=== PATIENT | female | born 1960 | race Caucasian/White ===

== ENCOUNTER 2022-10-21 06:00 | Outpatient (RCR) | payer OTHER, MEDICAID, SELFPAY | END 2023-01-18 10:12 | disposition home or self-care (01) | LOC: PT 06:00 | PROVIDERS: PCP Nurse Practitioner Family; Visit Provider Nurse Practitioner Family | DX: R26.81 Unsteadiness on feet (principal) | CPT/HCPCS: 97110; 97112; 97530 ==

== ENCOUNTER 2022-12-10 09:51 | Outpatient (OUT) | payer OTHER, MEDICAID, SELFPAY ==
[2022-12-10 10:49] LABS: Creatinine Urine Random 64.51 mg/dL (20.00-300.00); Microalbum Creatinine Ratio Ur 20.1 mg/g (0.0-29.9); Microalbumin Urine Random <1.3 mg/dL (<=30.0)
[2022-12-10 11:03] LABS: Albumin Level 3.6 g/dL (3.4-5.0); Anion Gap 10.6; BUN Creatinine Ratio 10.7; Calcium 8.9 mg/dL (8.5-10.1); Carbon Dioxide 29.1 mmol/L (21.0-32.0); Chloride 104 mmol/L (98-107); Chol HDL Ratio 3.3; Cholesterol 170 mg/dL (<=200); Estimated GFR (African America >60 (>=60); Estimated GFR (Non-African Ame >60 (>=60); Free T3 1.85 pg/mL (2.18-3.98); Glucose 160 mg/dL (74-106); HDL Cholesterol 51 mg/dL (40-60); Phosphorus 4.1 mg/dL (2.6-4.7); Potassium 3.7 mmol/L (3.5-5.1); Sodium 140 mmol/L (136-145); Thyroid Stimulating Hormone 0.663 uIU/mL (0.358-3.740); Triglycerides 205 mg/dL (<=150)
[2022-12-10 11:32] LABS: Free T4 0.81 ng/dL (0.76-1.46)
[2022-12-11 12:08] LABS: C-Peptide, Serum 1.5 ng/mL (1.1-4.4)
== END 2022-12-10 09:52 | disposition home or self-care (01) ==
LOC: LAB 09:53
PROVIDERS: PCP Nurse Practitioner Family; Visit Provider Internal Medicine
DX: E11.65 Type 2 diabetes mellitus with hyperglycemia (principal); E55.9 Vitamin D deficiency, unspecified; E06.3 Autoimmune thyroiditis; Z79.4 Long term (current) use of insulin; E03.9 Hypothyroidism, unspecified
CPT/HCPCS: 36415; 80061; 80069; 82043; 82306; 82570; 84439; 84443; 84481; 84681

== ENCOUNTER 2022-12-10 10:17 | Outpatient (OUT) | payer OTHER, MEDICAID, SELFPAY ==
--- NOTE | 2022-12-10 10:20 | US_ITS ---
The [address] [address] Patient Name: ALBINO BARBOSA MRN: [facility]:[id number] date: 1960 Sex: F Assigned Patient Location: Current Patient Location: US Accession/Order Number: [id number] Exam Date: 12/10/2022 10:30 Report Date: 12/10/2022 11:17 At the request of: LUKE HIGGINS Procedure: US renal bladder EXAM: US renal bladder HISTORY: Urinary incontinence R32 COMPARISON: None. TECHNIQUE: Real-time ultrasound imaging of the kidneys and bladder. Findings: The right and left kidneys measure 11.7 and 12.5 cm. There is good corticomedullary differentiation bilaterally. Within the lower pole of the left kidney there is a 0.6 x 0.6 x 0.2 cm nonobstructing stone. No renal collecting system dilatation bilaterally. No focal mass or perinephric fluid collection. Mild bladder wall thickening likely relates to lack of complete distention. Prevoid volume of 127 mL with a postvoid residual of 65 mL. US/US renal bladder IMPRESSION: 1. Nonobstructing left renal stone. 2. Small postvoid residual volume within the bladder. Electronically authenticated by: BRENDA GONZALEZ Date: 12/10/2022 11:17
== END 2022-12-10 10:18 | disposition home or self-care (01) ==
LOC: US 10:18
PROVIDERS: PCP Nurse Practitioner Family; Visit Provider Nurse Practitioner Family
DX: R32 Unspecified urinary incontinence (principal); N20.0 Calculus of kidney
CPT/HCPCS: 76770

== ENCOUNTER 2023-01-15 12:55 | Outpatient (OUT) | payer OTHER, MEDICAID, SELFPAY ==
[2023-01-15 12:40] LABS: Basophils Percent Auto 0.5 % (0.2-2.0); Eosinophils Absolute Auto 0.1 10^3/uL (0.0-0.7); Eosinophils Percent Auto 1.7 % (0.9-7.0); Hematocrit 42.3 % (36.0-48.0); Hemoglobin 13.7 g/dL (12.0-16.0); Immature Granulocytes Abs Auto 0.04 10^3/uL (0.00-0.03); Immature Granulocytes Pct Auto 0.6 % (0.0-0.5); Lymphocytes Absolute Auto 1.1 10^3/uL (1.2-3.8); Lymphocytes Percent Auto 17.2 % (20.5-60.0); Mean Corpuscular HGB Conc 32.4 g/dL (29.9-35.2); Mean Corpuscular Hemoglobin 27.8 pg (26.7-34.0); Mean Corpuscular Volume 85.8 fL (81.0-99.0); Mean Platelet Volume 10.1 fL (9.5-13.5); Monocytes Absolute Auto 0.5 10^3/uL (0.3-0.8); Monocytes Percent Auto 7.6 % (1.7-12.0); Neutrophils Absolute Auto 4.6 10^3/uL (1.4-6.5); Neutrophils Percent Auto 72.4 % (43.0-75.0); Platelet Count 150 10^3/uL (150-450); Red Blood Count 4.93 10^6/uL (4.20-5.40); Red Cell Distribution Width 15.5 % (11.0-15.0); White Blood Count 6.4 10^3/uL (4.0-11.0)
[2023-01-15 12:54] LABS: Bilirubin Urine NEGATIVE (NEGATIVE); Blood Urine NEGATIVE (NEGATIVE); Clarity Urine CLEAR (CLEAR); Color Urine LT. YELLOW (YELLOW); Glucose Urine UA NEGATIVE (NEGATIVE); Ketones Urine NEGATIVE (NEGATIVE); Leukocyte Esterase Urine NEGATIVE (NEGATIVE); Nitrite Urine NEGATIVE (NEGATIVE); Protein Urine NEGATIVE (NEG/TRACE); Specific Gravity Urine 1.015 (1.005-1.025); Urobilinogen Urine 0.2 EU/dL (0.2-1.0)
[2023-01-15 13:13] LABS: Percent Iron Saturation 11.3 %
[2023-01-15 13:14] LABS: Alanine Aminotransferase 34 U/L (14-59); Albumin Globulin Ratio 1.1; Albumin Level 4.1 g/dL (3.4-5.0); Alkaline Phosphatase 107 U/L (46-116); Anion Gap 11.8; Aspartate Amino Transferase 26 U/L (15-37); BUN Creatinine Ratio 10.2; Bilirubin Total 0.3 mg/dL (0.2-1.0); Calcium 9.4 mg/dL (8.5-10.1); Carbon Dioxide 29.7 mmol/L (21.0-32.0); Chloride 99 mmol/L (98-107); Estimated GFR (African America >60 (>=60); Estimated GFR (Non-African Ame 51 (>=60); Globulin 3.9 g/dL; Glucose 190 mg/dL (74-106); Potassium 3.5 mmol/L (3.5-5.1); Sodium 137 mmol/L (136-145)
[2023-01-15 13:26] LABS: Free T3 2.21 pg/mL (2.18-3.98); Thyroid Stimulating Hormone 0.468 uIU/mL (0.358-3.740)
[2023-01-19 03:00] LABS: Estimated Average Glucose 192 mg/dL; Glycohemoglobin A1C 8.3 % (4.5-6.2)
== END 2023-01-15 12:56 | disposition home or self-care (01) ==
LOC: LAB 01-17 12:12
PROVIDERS: PCP Nurse Practitioner Family; Visit Provider Nurse Practitioner Family
DX: Z00.00 Encounter for general adult medical examination without abnormal findings (principal); R73.09 Other abnormal glucose
CPT/HCPCS: 36415; 80053; 81003; 82728; 83036; 83540; 83550; 84436; 84443; 84481; 85025; 87086

== ENCOUNTER 2023-03-23 15:36 | Outpatient (RCR) | payer OTHER, MEDICAID, SELFPAY | END 2023-03-24 16:52 | disposition home or self-care (01) | LOC: PT 15:36 | PROVIDERS: PCP Nurse Practitioner Family; Visit Provider Family Medicine | DX: R29.6 Repeated falls (principal) | CPT/HCPCS: 97110; 97112; 97162 ==

== ENCOUNTER 2023-03-28 14:12 | Outpatient (OUT) | payer OTHER, MEDICAID, SELFPAY ==
--- NOTE | 2023-03-28 15:05 | CA_ITS ---
Patient Name ALBINO BARBOSA MR# Age Sex Date Time [id number] F 03/28/2023 14:24 At the Request Of LUKE HIGGINS [facility] ECHOCARDIOGRAM REPORT PROCEDURE: CA ECHO DOPPLER COMPLETE INDICATIONS: Shortness of breath COMPARISON: None. DESCRIPTION: COMPLETE ECHOCARDIOGRAM Real-time transthoracic echocardiography with 2D, M-mode, spectral and color flow Doppler performed. QUALITY: Technical quality was good. LEFT VENTRICLE: Normal chamber size. Mild concentric left ventricular hypertrophy. LV EF: Global left ventricular systolic function is hyperdynamic; visually estimated ejection fraction is 65 to 70%. No wall motion abnormalities. DIASTOLIC: Normal diastolic function. ATRIAL SEPTUM: Inadequately seen. LEFT ATRIUM: Normal chamber size. RIGHT ATRIUM: Normal chamber size. RIGHT VENTRICLE: Normal chamber size. Normal right ventricular systolic function. TRICUSPID VALVE: Normal mobility and thickness. No stenosis with trivial regurgitation. No evidence of pulmonary hypertension. RVSP 33mmHg MITRAL VALVE: Normal mobility and thickness. No evidence of mitral valve stenosis. There is no mitral annular calcification. Trivial mitral regurgitation. AORTIC VALVE: Normal trileaflet appearance. No visible sclerosis. Normal leaflet mobility. No evidence of aortic valve stenosis. No aortic regurgitation. AORTIC ROOT: Normal diameter and appearance. PULMONIC VALVE: Normal thickness and mobility. No stenosis. No regurgitation. PERICARDIUM: Anterior free space; trivial effusion versus fat pad. IVC: Collapses with inspirations. normal size. CONCLUSION: 1. Global left ventricular systolic function is hyperdynamic; visually estimated ejection fraction is 65 to 70% 2. Mildly increased left ventricular wall thickness 3. Normal diastolic function 4. The right ventricle is normal in size and systolic function 5. No significant valvular abnormalities 6. Anterior free space; trivial effusion versus fat pad Adult Echocardiography Procedure Report Left Ventricle LVEDD (3.7 - 5.6 cm): 4.22 cm LVESD (2.2 - 4.0 cm): 3.01 cm LVIVS thickness (0.6 - 1.2 cm): 1.18 cm LVPW thickness (0.5 - 1.0 cm): 1.12 cm e': 0.12 m/s E - e': 5.83 LVOT Max Gradient: 7.47 mm[Hg] LVOT Area (cm2): 1.37 m/s Peak Velocity (LVOT): 1.37 m/s Mean Velocity (LVOT): 0.93 m/s LVOT Diameter 2.06 cm Left Ventricular Ejection Fraction: 63.41 % Left Atrium LA Volume Index (2D A2C): 27.98 ml/m2 Left Atrium Systolic Dimension: 3.22 cm Mitral Valve MV E to A Ratio: 0.73 Mitral Valve A-Wave Peak Velocity: 0.95 m/s Mitral Valve E-Wave Peak Velocity: 0.69 m/s Right Ventricle RV Internal Diastolic Dimension: 2.68 cm Aorta AO Root Diam: 2.82 cm Ascending Ao Diam: 2.99 cm Aortic Valve AoV Area (Peak Aram): 3.15 cm2, 3.15 cm2 AoV Area (VTI): 2.91 cm2, 2.91 cm2 Peak Velocity(Antegrade Flow): 1.45 m/s, 1.45 m/s Peak Gradient(Antegrade Flow): 8.44 mm[Hg], 8.44 mm[Hg] Mean Velocity(Antegrade Flow): 1.07 m/s, 1.05 m/s Mean Gradient(Antegrade Flow): 5.10 mm[Hg], 4.94 mm[Hg] Velocity Time Integral: 29.01 cm, 29.07 cm Tricuspid Valve Peak Velocity (Regurgitant Flow): 1.77 m/s, 2.92 m/s, 2.72 m/s Pulmonic Valve Mean Gradient: 2.76 mm[Hg], 3.72 mm[Hg], 4.07 mm[Hg], 4.27 mm[Hg] Mean Velocity: 0.79 m/s, 0.90 m/s, 0.95 m/s, 0.97 m/s Peak Velocity: 1.23 m/s Peak Gradient: 4.38 mm[Hg], 6.18 mm[Hg], 6.64 mm[Hg], 7.40 mm[Hg] Right Atrium Right Atrium Systolic Pressure: 34.31 ml, 34.31 ml Dictated by: Davon Perez M.D. on 03/30/2023 at 12:19 Approved by: Davon Perez M.D. on 03/30/2023 at 12:23
--- NOTE | 2023-03-28 15:05 | CA_ITS ---
The [facility] Test Date: 2023-04-15 Pat Name: ALBINO BARBOSA Department: Room: - Gender: Female Fire Officer: : 1960 Requested By: LUKE HIGGINS Order Number: [id number] Reading MD: ROB KAMARA Interpretive Statements Predominant rhythm is sinus with average rate of 87 bpm Tachycardia - max rate of 185 bpm w/ PSVT of 5 beat duration - 2 episodes of PSVT with longest duration of 5 beats - longest episode of 26min 2sec with rates between 108-116 bpm Bradycardia - min rate of 60 bpm Ventricular ectopy - 14 PVC Patient triggered events: 1 - associated with diziness - associated with NSR Impression: Predominant rhythm is sinus with average rate of 87 bpm Fastest rate of 185 bpm and slowest rate of 60 bpm 14 PVC Electronically Signed On 04-17-2023 12:16:23 EST by ROB KAMARA
== END 2023-03-28 14:13 | disposition home or self-care (01) ==
LOC: CARD 14:12
PROVIDERS: PCP Nurse Practitioner Family; Visit Provider Nurse Practitioner Family
DX: R06.02 Shortness of breath (principal); R42 Dizziness and giddiness
CPT/HCPCS: 93242; 93306

== ENCOUNTER 2023-04-04 13:07 | Outpatient (OUT) | payer OTHER, MEDICAID, SELFPAY ==
--- NOTE | 2023-04-04 | MR_ITS ---
The [address] [address] Patient Name: ALBINO BARBOSA MRN: [facility]:[id number] date: 1960 Sex: F Assigned Patient Location: LAB Current Patient Location: LAB Accession/Order Number: [id number] Exam Date: 04/04/2023 14:32 Report Date: 04/04/2023 19:58 At the request of: ANH ESPINOSA Procedure: MR head/brain wo/w con EXAM: MR head/brain wo/w con HISTORY: F09 Cognitive dysfunction; R26.89 Imbalance . chronic dizziness, tremors and headache COMPARISON: None. TECHNIQUE: Multisequence MRI brain was performed with and without intravenous contrast. FINDINGS: Examination is moderately motion limited. There is no restricted diffusion to suggest acute infarct. There is no midline shift, mass effect, or abnormal extraaxial fluid collections. There are no abnormal parenchymal or leptomeningeal enhancement. The cortical sulci and ventricular system are within normal limits for age. There are a few nonspecific scattered foci of T2/FLAIR signal abnormality in the subcortical and periventricular white matter, likely reflect chronic microvascular ischemic changes. The major intracranial flow voids are visualized. The cerebellar tonsils are normal in position. The orbits demonstrate no suspicious enhancement or any focal lesions. The paranasal sinuses and mastoid air cells are clear. The calvarium and extracranial soft tissues are unremarkable. MR/MR head/brain wo/w con IMPRESSION: Within limitations of motion artifact which moderately limited multiple pulse sequences, no discrete acute intracranial abnormalities or abnormal intracranial enhancement identified Mild chronic microvascular ischemic changes. Electronically authenticated by: FRANTZ STEPHENSON Date: 04/04/2023 19:58
[2023-04-04 13:25] LABS: Estimated GFR (African America >60 (>=60); Estimated GFR (Non-African Ame >60 (>=60)
== END 2023-04-04 13:08 | disposition home or self-care (01) ==
LOC: LAB 13:07
PROVIDERS: PCP Nurse Practitioner Family; Visit Provider Nurse Practitioner Family
DX: R26.89 Other abnormalities of gait and mobility (principal); F09 Unspecified mental disorder due to known physiological condition; Z13.9 Encounter for screening, unspecified
CPT/HCPCS: 36415; 70553; 82565; A9575

== ENCOUNTER 2023-05-06 08:20 | Outpatient (OUT) | payer OTHER, MEDICAID, SELFPAY ==
--- NOTE | 2023-05-06 08:00 | NM_ITS ---
The [address] [address] Patient Name: ALBINO BARBOSA MRN: [id number] date: 1960 Sex: F Assigned Patient Location: ME Current Patient Location: ME Accession/Order Number: [id number] Exam Date: 05/06/2023 08:00 Report Date: 05/06/2023 11:37 At the request of: Maryam DAVILA Procedure: ME gastric emptying study EXAMINATION: ME gastric emptying study HISTORY: ABDOMINAL PAIN, NAUSEA AND VOMITING COMPARISON: No relevant comparison available. TECHNIQUE: The patient ingested 1.0 mCi Tc-99m sulfur colloid mixed with eggs. Anterior and posterior images were obtained at one minute intervals. Data were acquired for plotting and determination of gastric emptying. FINDINGS: STOMACH: Normal appearance. 30 minute retention: 55% 1 hour retention: 51% 2 hour retention: 3% 3 hour retention: 2% 4 hour retention: 0% ME/ME gastric emptying study IMPRESSION: Normal gastric emptying study Electronically authenticated by: KAILEE AGUSTIN Date: 05/06/2023 11:37
== END 2023-05-06 08:21 | disposition home or self-care (01) ==
LOC: NM 08:20
PROVIDERS: PCP Nurse Practitioner Family; Visit Provider Internal Medicine
DX: R10.9 Unspecified abdominal pain (principal); R11.0 Nausea
CPT/HCPCS: 78264; A9541

== ENCOUNTER 2023-10-21 12:29 | Outpatient (OUT) | payer OTHER, MEDICAID, SELFPAY ==
--- NOTE | 2023-10-21 12:46 | MM_ITS ---
Patient Name: ALBINO BARBOSA MR#: [id number] : 1960 Exam Date: 10/21/2023 Ordering Doctor: LUKE HIGGINS CNP RADIOLOGY REPORT PROCEDURE: MM TOMOSYNTHESIS SCREENING BI COMPARISON: MG MAMM SCREEN 3D [place]O CAD, 10/19/2022. MG MAMM SCREEN 3D [place] CAD, 07/21/2021. MG MAMM SCREEN [place] W CAD, 07/18/2020. INDICATIONS: Screening for malignant neoplasm Calculator Name NCI Breast Cancer Risk Assessment Tool 5 Year Breast Cancer Risk 1.50% Lifetime Breast Cancer Risk 6.60% Personal Breast Cancer No Personal Ovarian Cancer No Treatments None Family Cancers Grandmother-maternal with breast cancer at age 80. LOCATION: [facility] BREAST COMPOSITION: There are scattered areas of fibroglandular density. FINDINGS: DIAGNOSTIC CATEGORY 1--NEGATIVE. RIGHT BREAST: No significant suspicious finding. No significant change has occurred. LEFT BREAST: No significant suspicious finding. No significant change has occurred. RECOMMENDATIONS: ROUTINE MAMMOGRAM AND CLINICAL EVALUATION IN 12 MONTHS. PLEASE NOTE: A NORMAL MAMMOGRAM DOES NOT EXCLUDE THE POSSIBILITY OF BREAST CANCER. A CLINICALLY SUSPICIOUS PALPABLE LUMP SHOULD BE BIOPSIED. Dictated by: Christiano Valerio M.D. on 10/21/2023 at 14:45 Approved by: Christiano Valerio M.D. on 10/21/2023 at 14:47
== END 2023-10-21 12:30 | disposition home or self-care (01) ==
LOC: MAMMO 12:31
PROVIDERS: PCP Nurse Practitioner Family; Visit Provider Nurse Practitioner Family
DX: Z12.31 Encounter for screening mammogram for malignant neoplasm of breast (principal); Z80.3 Family history of malignant neoplasm of breast
CPT/HCPCS: 77063; 77067

== ENCOUNTER 2023-10-21 12:34 | Outpatient (OUT) | payer OTHER, MEDICAID, SELFPAY ==
[2023-10-21 14:53] LABS: Creatine Kinase 113 U/L (26-192); Magnesium 1.9 mg/dL (1.8-2.4); Myoglobin 82 ng/mL (9-82)
== END 2023-10-21 12:35 | disposition home or self-care (01) ==
LOC: LAB 12:35
PROVIDERS: PCP Nurse Practitioner Family; Visit Provider Nurse Practitioner Family
DX: Z12.31 Encounter for screening mammogram for malignant neoplasm of breast (principal); Z80.3 Family history of malignant neoplasm of breast
CPT/HCPCS: 36415; 77063; 77067; 82550; 83735; 83874

== ENCOUNTER 2023-12-22 14:56 | Outpatient (OUT) | payer MEDICAID, OTHER, SELFPAY ==
[2023-12-22 15:25] LABS: Basophils Percent Auto 0.5 % (0.2-2.0); Eosinophils Absolute Auto 0.1 10^3/uL (0.0-0.7); Eosinophils Percent Auto 1.2 % (0.9-7.0); Hemoglobin 13.4 g/dL (12.0-16.0); Immature Granulocytes Abs Auto 0.02 10^3/uL (0.00-0.03); Immature Granulocytes Pct Auto 0.3 % (0.0-0.5); Lymphocytes Absolute Auto 1.3 10^3/uL (1.2-3.8); Lymphocytes Percent Auto 19.4 % (20.5-60.0); Mean Corpuscular HGB Conc 31.2 g/dL (29.9-35.2); Mean Corpuscular Hemoglobin 25.2 pg (26.7-34.0); Mean Corpuscular Volume 80.8 fL (81.0-99.0); Mean Platelet Volume 10.9 fL (9.5-13.5); Monocytes Absolute Auto 0.5 10^3/uL (0.3-0.8); Monocytes Percent Auto 7.7 % (1.7-12.0); Neutrophils Absolute Auto 4.6 10^3/uL (1.4-6.5); Neutrophils Percent Auto 70.9 % (43.0-75.0); Platelet Count 155 10^3/uL (150-450); Red Blood Count 5.32 10^6/uL (4.20-5.40); Red Cell Distribution Width 17.6 % (11.0-15.0); White Blood Count 6.5 10^3/uL (4.0-11.0)
--- NOTE | 2023-12-22 15:37 | XR_ITS ---
The [address] [address] Patient Name: ALBINO BARBOSA MRN: [facility]:[id number] date: 1960 Sex: F Assigned Patient Location: LAB Current Patient Location: LAB Accession/Order Number: [id number] Exam Date: 12/22/2023 15:45 Report Date: 12/22/2023 16:14 At the request of: LUKE HIGGINS Procedure: XR foot LT min 3V PROCEDURE: XR foot LT min 3V HISTORY: Left Foot Pain M79.672 ; injured one week ago COMPARISON: None. FINDINGS: BONES:Transverse fracture through neck of fourth metatarsal with minimal lateral displacement. Comminuted fracture of the 5th metatarsal mid and distal diaphysis with mild medial medial displacement. No intra-articular extension involving the fourth or 5th metatarsal. SOFT TISSUES:Lateral soft tissue swelling. No radiopaque or body. EFFUSION:None visible. OTHER: Negative. XR/XR foot LT min 3V IMPRESSION: 1. Acute fractures of the fourth and 5th metatarsals. Electronically authenticated by: LEONEL MATA Date: 12/22/2023 16:14
[2023-12-22 16:26] LABS: Alanine Aminotransferase 28 U/L (14-59); Albumin Globulin Ratio 1.1; Albumin Level 3.9 g/dL (3.4-5.0); Alkaline Phosphatase 122 U/L (46-116); Anion Gap 14.6; Aspartate Amino Transferase 20 U/L (15-37); BUN Creatinine Ratio 11.5; Bilirubin Total 0.5 mg/dL (0.2-1.0); Carbon Dioxide 27.4 mmol/L (21.0-32.0); Chloride 100 mmol/L (98-107); Chol HDL Ratio 3.7; Cholesterol 164 mg/dL (<=200); Estimated GFR (African America >60 (>=60); Estimated GFR (Non-African Ame 59 (>=60); Free T3 2.33 pg/mL (2.18-3.98); Globulin 3.7 g/dL; Glucose 144 mg/dL (74-106); HDL Cholesterol 44 mg/dL (40-60); Sodium 138 mmol/L (136-145); Thyroid Stimulating Hormone 0.052 uIU/mL (0.358-3.740); Total Protein 7.6 g/dL (6.4-8.2); Triglycerides 193 mg/dL (<=150); VLDL CHOLESTEROL 38.6 mg/dL
[2023-12-22 16:33] LABS: Estimated Average Glucose 151 mg/dL; Glycohemoglobin A1C 6.9 % (4.5-6.2)
[2023-12-23 05:10] LABS: Insulin 23.1 uIU/mL (2.6-24.9)
== END 2023-12-22 14:57 | disposition home or self-care (01) ==
PROVIDERS: PCP Nurse Practitioner Family; Visit Provider Nurse Practitioner Family
DX: Z00.00 Encounter for general adult medical examination without abnormal findings (principal); E11.65 Type 2 diabetes mellitus with hyperglycemia; Z79.4 Long term (current) use of insulin; E55.9 Vitamin D deficiency, unspecified; M79.672 Pain in left foot; S92.342A Displaced fracture of fourth metatarsal bone, left foot, initial encounter for closed fracture; S92.352A Displaced fracture of fifth metatarsal bone, left foot, initial encounter for closed fracture
CPT/HCPCS: 36415; 73630; 80053; 80061; 83036; 83525; 84436; 84443; 84481; 85025

== ENCOUNTER 2023-12-22 15:26 | Outpatient (OUT) | payer MEDICAID, OTHER, SELFPAY ==
[2023-12-22 16:18] LABS: Microalbum Creatinine Ratio Ur 35.6 mg/g (0.0-29.9); Microalbumin Urine Random <1.3 mg/dL (<=30.0)
[2023-12-22 16:54] LABS: Phosphorus 3.9 mg/dL (2.6-4.7)
== END 2023-12-22 15:27 | disposition home or self-care (01) ==
LOC: LAB 15:27
PROVIDERS: PCP Nurse Practitioner Family; Visit Provider Internal Medicine
DX: E11.65 Type 2 diabetes mellitus with hyperglycemia (principal); Z79.4 Long term (current) use of insulin; E55.9 Vitamin D deficiency, unspecified
CPT/HCPCS: 36415; 82043; 82306; 82570; 84100

== ENCOUNTER 2023-12-26 13:32 | Outpatient (OUT) | payer OTHER, MEDICAID, SELFPAY ==
--- NOTE | 2023-12-26 13:34 | CT_ITS ---
[address] [address] Patient Name: ALBINO BARBOSA MRN: [facility]:[id number] date: 1960 Sex: F Assigned Patient Location: CT Current Patient Location: Accession/Order Number: [id number] Exam Date: 12/26/2023 13:39 Report Date: 12/28/2023 05:30 At the request of: LUKE HIGGINS Procedure: CT lung screening low-dose EXAMINATION: CT lung screening low-dose HISTORY: Wellness Examination Z00.00 COMPARISON: CT lung cancer screening 10/19/2022 TECHNIQUE: Axial, Coronal, and Sagittal images were created without the administration of IV contrast material. Dose reduction techniques were achieved by using automated exposure control and/or adjustment of mA and/or kV according to patient size and/or use of iterative reconstruction technique. FINDINGS: LUNGS: Stable 5 mm nodule within right lower lobe superior segment. Stable mild bronchiectasis within lung bases. No acute infiltrates. PLEURA: No mass, effusion, or pneumothorax. VASCULATURE: No abnormality. CARRIE: No mass or pathologic adenopathy. MEDIASTINUM: No mass or pathologic adenopathy. CARDIAC: No enlargement, pericardial thickening, or pericardial effusion. Coronary Artery calcifications: Coronary calcifications are absent. AORTA: No aneurysm or dissection. CHEST WALL: No mass or axillary adenopathy BONES: No bone lesion or fracture. LIMITED ABDOMEN: No suspicious findings. Limited images of the upper abdomen. OTHER: Negative. CT/CT lung screening low-dose IMPRESSION: 1. Lung-RADS 2- Benign Appearance or Behavior. Nodules with a very low likelihood of becoming a clinically active cancer due to size or lack of growth. Follow-up CT Chest in 1 year. Electronically authenticated by: LEONEL MATA Date: 12/28/2023 05:30
== END 2023-12-26 13:33 | disposition home or self-care (01) ==
LOC: CT 13:32
PROVIDERS: PCP Nurse Practitioner Family; Visit Provider Nurse Practitioner Family
DX: F17.210 Nicotine dependence, cigarettes, uncomplicated (principal)
CPT/HCPCS: 71271

== ENCOUNTER 2023-12-27 10:08 | Outpatient (OUT) | payer OTHER, MEDICAID, SELFPAY ==
--- NOTE | 2023-12-27 | XR_ITS ---
The [address] [address] Patient Name: ALBINO BARBOSA MRN: [id number] date: 1960 Sex: F Assigned Patient Location: Current Patient Location: CT Accession/Order Number: [id number] Exam Date: 12/27/2023 10:27 Report Date: 12/28/2023 13:16 At the request of: JV JONES Procedure: XR foot LT min 3V PROCEDURE: XR foot LT min 3V HISTORY: LEFT FOOT PAIN ; follow-up fractures COMPARISON: XR foot left 12/22/2023 FINDINGS: BONES:Stable minimally/fractures involving the fourth and 5th metatarsals with interval increased density of the fracture lines and mild callus formation along the margins. SOFT TISSUES:No visible soft tissue swelling. EFFUSION:None visible. OTHER: Negative. XR/XR foot LT min 3V IMPRESSION: 1. Right fourth and 5th metatarsal fractures with stable alignment and ongoing bone healing. Electronically authenticated by: LEONEL MATA Date: 12/28/2023 13:16
--- OUTSIDE RECORDS SUMMARY | 2023-12-27 10:26 | XMS_ITS | CCD ---
Author Organization [facility] Care Team Providers Care Can Labeler Name Role Phone Shakira Higgins Primary Care Provider [phone] DR JENNIFER TURNER Consulting Unavailable YEU, DR RODRIGUEZ Attending Unavailable MISC, DR VAZQUEZ Primary Care Unavailable YUE, DR RODRIGUEZ Admitting Unavailable Keysha Naidu Consulting Unavaila marie Higgins CNP, Shakira S Primary Care Provider PROVIDER, UNKNOWN Attending Unavailable PROVIDER, UNKNOWN Admitting Unavailable Rodger Chavez Unavailable Ronaldo MOORE, Shakira S Primary Care Provider SHAKIRA HIGGINS Attending Unavailable ORNALDO, SHAKIRA Admitting Unavailable RONALDO, SHAKIRA Primary Care Unavailable RONALDO, SHAKIRA Primary Care Unavailable HAY ., DR RODRIGUEZ Consulting Unavailable HAY ., DR RODRIGUEZ Attending Unavailable YUE ., DR RODRIGUEZ Admitting Unavailable RONALDO, SHAKIRA Consulting Unavailable RONALDO, SHAKIRA Attending Unavailable RONALDO, SHAKIRA Admitting Unavailable RONALDO, SHAKIRA Primary Care Unavailable MISC, DR VAZQUEZ Attending Unavailable LOLA, DR Maryam Artis Consulting Unavailable MISC, DR VAZQUEZ Admitting Unavailable RONALDO, SHAKIRA Primary Care Unavailable RONALDO, SHAKIRA Consulting Unavailable RONALDO, SHAKIRA Attending Unavailable RONALDO, SHAKIRA Admitting Unavailable RONALDO, SHAKIRA Primary Care Unavailable RONALDO, SHAKIRA Primary Care Unavailable ABHYANKAR, ANDRE Attending Unavailable ABHYANKAR, ANDRE Admitting Unavailable ZIEBKEN, DR LEONEL Artis Consulting Unavailable ABHYANKAR, ANDRE Consulting Unavailable RONALDO, SHAKIRA Primary Care Unavailable KEHINDE, ANTOINE Consulting Unavailable KEHINDE, ANTOINE Attending Unavailable KEHINDE, ANTOINE Admitting Unavailable RONALDO, SHAKIRA Attending Unavailable RONALDO, SHAKIRA Admitting Unavailable RONALDO, SHAKIRA Primary Care Unavailable VAMSI, DR KAILEE Mcdonough Consulting Unavailable ZIEBER, DR LEONEL Artis Consulting Unavailable RONALDO, SHAKIRA Consulting Unavailable RONALDO, SHAKIRA Primary Care Unavailable ABHYANKAR, ANDRE Attending Unavailable ABHYANKAR, ANDRE Admitting Unavailable KAILEE YANG Consulting Unavailable ABHYANKAR, ANDRE Consulting Unavailable RONALDO, SHAKIRA Primary Care Unavailable LOLA, DR Maryam Artis Consulting Unavailable LOLA, DR Maryam Artis Attending Unavailable LOLA, DR Maryam Artis Admitting Unavailable RONALDO, SHAKIRA Primary Care Unavailable HAY ., DR RODRIGUEZ Consulting Unavailable HAY ., DR RODRIGUEZ Attending Unavailable HAY ., DR RODRIGUEZ Admitting Unavailable RONALDO, SHAKIRA S Primary Care Physician ABHYANKAR, ANDRE Referring Unavailable ABHYANKAR, ANDRE Attending Unavailable RONALDO, SHAKIRA S Primary Care Unavailable ABHYANKAR, ANDRE Referring Unavailable RONALDO, SHAKIRA S Primary Care Unavailable Soheila Delgado Unavailable CHAVA QUIROZ Attending Unavailable ALANAAZMAHAMED Peña Attending Unavailable PRINTY, LUL Kothari Attending Unavailable PRINTY, LUL Kothari Attending Unavailable DIDION, DENI Peres Attending Unavailable JEFF, RAJAT Attending Unavailable DIDION, DENI Peres Attending Unavailable DIDION, DENI Peres Attending Unavailable TAN BAGLEY Attending Unavailable JEFF, RAJAT Attending Unavailable JUANITO, NGA E Attending Unavailable JUANITO, NGA Freedman Attending Unavailable JUANITO, NGA E Attending Unavailable JUANITO, NGA E Attending Unavailable JUANITO, NGA E Attending Unavailable JUANITO, NGA E Attending Unavailable JUANITO, NGA E Attending Unavailable JUANITO, NGA E Attending Unavailable RONALDO, SHAKIRA S Referring Unavailable JUANITO, NGA E Attending Unavailable Allergies Allergy Classification Reported Allergen(s) Allergy Type Date of Onset Reaction(s) Facility Capsaicin / Turpentine (1 source) Capsaicin / Turpentine; Translations: [capsaicin topical] Drug Allergy [facility] (4 sources) Capsaicin; Translations: [CAPSAICIN] Drug Allergy 4 [facility] Repository (5 sources) Capsaicin Drug Allergy Unknown [employer] Other (7 sources) Capsaicin / Turpentine; Translations: [capsaicin topical] Drug Allergy [facility] (1 source) traZODone; Translations: [TRAZODONE] Drug Allergy 4 [facility] Repository (1 source) No Known Medication Allergies; Translations: [No Known Medication Allergies] Propensity to adverse reactions (disorder) [facility] Repository Medications Current Medications Medication Drug Class(es) Dates Sig (Normalized) Sig (Original) 0.4 ML cyclosporine 0.5 MG/ML Ophthalmic Suspension [Restasis] (8 sources) Start: 03-13-2020 take 1 drop(s) into the eye(s) twice daily Restasis 0.05% Emulsion 1 drop(s), Eye-Both, BID, Refill(s) 0 Start Date: 03/13/20 Status: Ordered armodafinil 250 mg oral tablet (8 sources) Start: 03-13-2020 take 1 tablet by mouth once daily armodafinil 250 mg oral tablet 250 mg = 1 tab(s), Oral, Daily, Refills(s) 0 Start Date: 03/13/20 Status: Ordered atorvastatin 40 mg oral tablet (15 sources) HMG-CoA Reductase Inhibitor Start: 03-13-2020 take 1 tablet by mouth at bedtime atorvastatin 40 mg Tab 40 mg = 1 tab(s), Oral, Bedtime, Refills(s) 0 Start Date: 03/13/20 Status: Ordered Comment on above: Take 40 mg by mouth once daily. bisacodyl 5 mg delayed release oral tablet (11 sources) Stimulant Laxative Start: 03-18-2020 take 4 tablets by mouth once daily Dulcolax 5 mg Tab-EC 20 mg = 4 tab(s), Oral, Once, at 1:00pm the day prior to colonoscopy, # 4 tab(s), Refills(s) 0, Pharmacy: [facility]/pharmacy #[id number], 157.5, cm, 03/18/20 13:44:00 EDT, Height/Length Dosing, 104.3, kg, 03/18/20 13:44:00 EDT, Weight Dosing Start Date: 03/18/20 Status: Ordered Comment on above: Take 20 mg by mouth. Breztri Aerosphere inhalation aerosol (8 sources) Start: 05-03-2023 take 2 puff(s) by inhalation twice daily Breztri Aerosphere inhalation aerosol 2 puff(s), BID Start Date: 05/03/23 Status: Ordered 24 hr buPROPion hydrochloride 300 mg extended release oral tablet (13 sources) Aminoketone Start: 03-13-2020 take 1 tablet by mouth once daily buPROPion 300 mg XL /24 hrs 300 mg = 1 tab(s), Oral, Daily, Refills(s) 0 Start Date: 03/13/20 Status: Ordered Comment on above: Take 300 mg by mouth once daily. busPIRone hydrochloride 15 mg oral tablet (14 sources) Start: 10-23-2021 busPIRone 15 mg Tab 15 mg = 1 tab(s), BID Start Date: 05/03/23 Status: Ordered Start: 05-26-2021 End: 12-17-2021 busPIRone (BUSPAR) 10 mg tab let Comment on above: Take 15 mg by mouth twice daily as needed. Calcium (11 sources) Phosphate Binder, Calcium Start: 03-13-2020 calcium 500 mg tablet 500 mg = 1 tab(s), Chewed, Daily, Refills(s) 0 Start Date: 03/13/20 Status: Ordered CALCIUM ORAL Yamil e by mouth once daily. 0 Active Comment on above: Take by mouth once d aily. cevimeline 30 mg oral capsule (12 sources) Cholinergic Receptor Agonist Start: 3 take 1 capsule by mouth three times daily cevimeline 30 mg oral capsule 30 mg = 1 cap(s), TID Start Date: 05/03/23 Status: Ordered clotrimazole 10 mg/ml topical cream (4 sources) Azole Antifungal Clotrimazole 1 % 1 application Externally Twice a day Active Clotrimazole 1 % 1 application Externally Twice a day Active Clotrimazole 1 % 1 application Externally Twice a day Active cycloSPORINE 0.5 mg/ml ophthalmic suspension (10 sources) Calcineurin Inhibitor Immunosuppressant take 1 drop(s) into the eye(s) twice daily Restasis 0.05 % 1 drop into affected eye Ophthalmic Twice a day Active take 0.05 drop(s) in to the eye(s) twice daily cycloSPORINE (RESTASIS MULTIDOSE) 0.05 % drop Use 1 Drop in both eyes twice daily. 0 Active take 0.05 drop(s) in to the eye(s) twice daily cycloSPORINE (RESTASIS MULTIDOSE) 0.05 % drop Use 1 Drop in both eyes twice daily. 0 Active Comment on above: Use 1 Drop in both e yes twice daily. dexlansoprazole 60 mg delayed release oral capsule (3 sources) Proton Pump Inhibitor Start: 2022 take 1 capsule by mouth every twenty-four hours Dexilant 60 MG 1 capsule Orally Once a day for 30 days PLEASE CHECK ALLERGIES Mar, Active dicyclomine hydrochloride 10 mg oral capsule (16 sources) Anticholinergic Start: 2021 dicyclomine 10 mg Cap QID Start Date: 05/03/23 Status: Ordered Comment on above: Take 10 mg by mouth four times daily. 0.5 ml dulaglutide 3 mg/ml auto-injector (18 sources) GLP-1 Receptor Agonist Start: 2019 inject 1.5 mg by subcutaneous injection every week Trulicity Pen 1.5 mg/0.5 mL subcutaneous solution 1.5 mg, SubCutaneous, qWeek, Refills(s) 0 Start Date: 03/13/20 Status: Ordered Trulicity 3 MG/0 .5ML as directed Subcutaneous Active Comment on above: INJECT SUBCUTANEOUSL Y ONCE A WEEK empagliflozin 25 mg oral tablet (5 sources) Sodium-Glucose Cotransporter 2 Inhibitor Start: 11-14-2023 Jardiance 25 mg oral tablet Refills(s) 0 Start Date: 11/14/23 Status: Ordered estradiol 0.01 mg vaginal insert (18 sources) Estrogen Start: 03-13-2020 estradiol 10 mcg vaginal insert See Instructions, Use one twice per week, Refills(s) 0 Start Date: 03/13/20 Status: Ordered Vagifem 10 MCG 1 tablet Vaginal Two times a Week Active Estradiol (VAGIF EM) 10 mcg vaginal tablet Use 10 mcg vaginally two times a week. 0 Active Comment on above: Use 10 mcg vaginally two times a week. 30 actuat fluticasone furoate 0.1 mg/actuat / umeclidinium 0.0625 mg/actuat / vilanterol 0.025 mg/actuat dry powder inhaler (2 sources) Anticholinergic, Corticosteroid, beta2-Adrenergic Agonist take 1 puff(s) by inhalation once daily Trelegy Ellipta 100-62.5-25 MCG/ACT 1 puff Inhalation Once a day Active furosemide 40 mg oral tablet (15 sources) Loop Diuretic Start: 03-13-20 take 1 tablet by mouth once daily Lasix 40 mg Tab 40 mg = 1 tab(s), Oral, Daily, Refills(s) 0 Start Date: 03/13/20 Status: Ordered Comment on above: Take 40 mg by mouth once daily. gabapentin 300 mg oral capsule (16 sources) Anti-epileptic Agent Start: 03-13-20 take 1 capsule by mouth at bedtime gabapentin 300 mg Cap 300 mg = 1 cap(s), Oral, Bedtime, Refills(s) 0 Start Date: 03/13/20 Status: Ordered Comment on above: Take 300 mg by mouth daily at bedtime. insulin, regular, human 500 unt/ml injectable solution (15 sources) Insulin Start: 03-13-20 Humulin R (Concentrated) 500 units/mL subcutaneous solution See Instructions, Inject 150 units at breakfast, 140 at lunch and 75 at HS, Refills(s) 0 Start Date: 03/13/20 Status: Ordered HumuLIN R U-500 KwikPen 500 UNIT/ML as directed Subcutaneous 80 UNITS IN THE MORNING, 50 UNITS IN THE AFTERNOON Active metFORMIN hydrochloride 1000 mg oral tablet (10 sources) Biguanide Start: 03-13-2020 take 1 tablet by mouth twice daily metformin 1000 mg Tab 1,000 mg = 1 tab(s), Oral, BID, Refills(s) 0 Start Date: 03/13/20 Status: Ordered Multivitamin preparation (1 source) take 1 tablet by mouth once daily Multivitamin - 1 tablet Orally Once a day Active nystatin 100 unt/mg topical powder (7 sources) Polyene Antifungal Nystatin [id number] UNIT/GM 1 application Externally Twice a day Active Nystatin 300657 UNIT/GM 1 application Externally Twice a day Active omeprazole 40 mg delayed release oral capsule (8 sources) Proton Pump Inhibitor Start: 03-13-2020 take 1 capsule by mouth once daily omeprazole 40 mg Cap-DR 40 mg = 1 cap(s), Oral, Daily, Refills(s) 0 Start Date: 03/13/20 Status: Ordered pantoprazole 40 mg delayed release oral tablet (18 sources) Proton Pump Inhibitor Start: 05-03-[address] Tab 40 mg = 1 tab(s), BID Start Date: 05/03/23 Status: Ordered Start: 05-27-2020 take 1 tablet by jono once daily pantoprazole DR (PROTONIX) 40 mg tablet Take 40 mg by mouth once daily. 0 05/27/2020 Active Comment on above: Take 40 mg by mouth once daily. pravastatin sodium 40 mg oral tablet (13 sources) HMG-CoA Reductase Inhibitor Start: 04-21-2023 pravastatin 40 mg Tab 40 mg = 1 tab(s), Daily Start Date: 05/03/23 Status: Ordered take 1 tablet by mouth once lawson y Pravastatin 10 mg one tab orally daily Active Comment on above: Take 40 mg by mouth daily at bedtime. primidone 50 mg oral tablet (16 sources) Anti-epileptic Agent Start: 05-03-2023 primidone 50 mg Tab 50 mg = 1 tab(s), BID Start Date: 05/03/23 Status: Ordered Start: 04-20-2023 take 2 tablets by mo uth every twelve hours PRIMIDONE ORAL Take 2 tablets by mouth every 12 hours. 0 04/20/2023 Active take 2 tablets by mo uth every twelve hours Primidone 50 MG 2 tablets Orally Twice a day Active Primidone 50 MG 1 TABLETS Orally 2 tablets in AM and 1 tablet in PM Active Comment on above: Take 2 tablets by mo uth every 12 hours. traZODone hydrochloride 100 mg oral tablet (20 sources) Serotonin Reuptake Inhibitor Start: 05-03-2023 traZODONE 100 mg Tab 100 mg = 1 tab(s), Daily Start Date: 05/03/23 Status: Ordered Start: 03-13-2020 take 1 tablet by jono th once daily at bedtime traZODONE 50 mg Tab 50 mg = 1 tab(s), Oral, Once a day (at bedtime), Refills(s) 0 Start Date: 03/13/20 Status: Ordered Comment on above: TAKE 1 TABLET BY JONO TH EVERYDAY AT BEDTIME triamcinolone acetonide 1 mg/ml topical cream (3 sources) Corticosteroid Triamcinolone Ac etonide 0.1 % 1 application Externally Twice a day Active Triamcinolone Ac etonide 0.1 % 1 application Externally Twice a day Active 24 hr venlafaxine 150 mg extended release oral capsule (19 sources) Serotonin and Norepinephrine Reuptake Inhibitor Start: 03-13-2020 take 1 capsule by mouth once daily venlafaxine 150 mg Cap-ER 150 mg = 1 cap(s), Oral, Daily, Refills(s) 0 Start Date: 03/13/20 Status: Ordered End: 12-17-2021 take 1 capsule by mouth once daily venlafaxine ER (EFFEXOR XR) 75 mg 24 hr capsule Take 75 mg by mouth once daily. 0 12/17/2021 Discontinued (Changing Therapy/Dosage Form) Comment on above: Take 150 mg by mouth once daily. Take 75 mg by mouth once daily. Ventolin HFA 90 mcg/inh Aerosol (8 sources) Start: 03-13-2020 take 2 puff(s) by inhalation four times daily Ventolin HFA 90 mcg/inh Aerosol 2 puff(s), Inhalation, QID Shortness of breath or wheezing, Refill(s) 0 Start Date: 03/13/20 Status: Ordered vitamin b12 0.1 mg oral tablet (1 source) Vitamin B12 Vitamin B12 100 MCG as directed Orally Active Vitamin B12 100 MCG (3 sources) Vitamin B12 100 MCG as directed Orally Active Vitamin B12 250 mcg oral tablet (8 sources) Start: 03-13-2020 take 1 tablet by mouth once daily Vitamin B12 250 mcg oral tablet 250 mcg = 1 tab(s), Oral, Daily, Refills(s) 0 Start Date: 03/13/20 Status: Ordered Vitamin D3 25 MCG (1000 UT) (2 sources) take 1 tablet by mouth once daily Vitamin D3 25 MCG (1000 UT) 1 tablet Orally Once a day Active Completed/Discontinued Medications Medication Drug Class(es) Dates Sig (Normalized) Sig (Original) [id number] 200 actuat albuterol 0.09 mg/actuat metered dose inhaler (4 sources) beta2-Adrenergic Agonist albuterol HFA 90 mcg/actuation HFA Inhale 2 Puffs as instructed as needed. 0 Active take 1 puff(s) by in halation every four hours as needed Albuterol Sulfate HFA 108 (90 Base) MCG/ACT 1 puff as needed Inhalation every 4 hrs Active Comment on above: Inhale 2 Puffs as in structed as needed. 120 actuat budesonide 0.16 mg/actuat / formoterol fumarate 0.0048 mg/actuat / glycopyrrolate 0.009 mg/actuat metered dose inhaler (1 source) Corticosteroid, beta2-Adrenergic Agonist Start: 2022 take 2 puff(s) by inhalation twice daily BREZTRI AEROSPHERE 160-9-4.8 mcg/actuation HFA aerosol inhaler INHALE 2 PUFFS TWICE A DAY DIRECTED 30 0 05/17/2023 Active Comment on above: INHALE 2 PUFFS TWICE A DAY DIRECTED 30 cephalexin 500 mg oral capsule (3 sources) Cephalosporin Antibacterial Start: 2020 cephALEXin (KEFLEX) 500 mg capsule cholecalciferol 0.05 mg oral capsule (9 sources) Vitamin D Start: 2019 take 1 capsule by mouth once daily cholecalciferol 2000 intl units oral capsule 2,000 International_Unit = 1 cap(s), Oral, Daily Start Date: 03/13/20 Status: Ordered Start: 03-13-2020 take 1 capsule by mo uth once daily cholecalciferol 2000 intl units oral capsule 2,000 International_Unit = 1 cap(s), Oral, Daily Start Date: 03/13/20 Status: Ordered take 1 tablet by jono th every twenty-four hours Vitamin D3 25 MCG (1000 UT) 1 tablet Orally Once a day Active cholecalciferol, vitamin D3, (VITAMIN D3 ORAL) (3 sources) cholecalciferol, vitamin D3, (VITAMIN D3 ORAL) Take by mouth once daily. 0 Active Comment on above: Take by mouth once d aily. ciclopirox (3 sources) CICLOPIROX TOPIC AL Apply to affected area. 0 Active Comment on above: Apply to affected ar ea. cyanocobalamin, vitamin B-12, (VITAMIN B12 ORAL) (3 sources) take 1000 ug by mouth once daily cyanocobalamin, vitamin B-12, (VITAMIN B12 ORAL) Take 1,000 mcg by mouth once daily. 0 Active Comment on above: Take 1,000 mcg by mo ut once daily. Diclofenac (14 sources) Nonsteroidal Anti-inflammatory Drug Start: 020 diclofenac Top 1% gel 2 gm, Topical, QID, Refill(s) 0 Start Date: 03/13/20 Status: Ordered Diclofenac Sodiu m 1 % as directed Externally Active Comment on above: Apply to affected ar ea four times daily. ferrous sulfate 325 mg oral tablet (3 sources) Start: 021 take 1 tablet by mouth twice daily ferrous sulfate 325 mg (65 mg iron) tablet Take 1 tablet by mouth twice daily. 0 05/27/2020 Active Comment on above: Take 1 tablet by jono th twice daily. fluconazole 150 mg oral tablet (3 sources) Azole Antifungal Start: fluconazole (DIFLUCAN) 150 mg tablet TAKE 1 TABLET EVERY 72 HOURS UNTIL SYMPTOMS IMPROVE (MAX 2WK) THEN 1 TABLET ONCE WEEKLY FOR 12 WEEKS 0 07/10/2020 Active Comment on above: TAKE 1 TABLET EVERY 72 HOURS UNTIL SYMPTOMS IMPROVE (MAX 2WK) THEN 1 TABLET ONCE WEEKLY FOR 12 WEEKS fluticasone propionate 0.05 mg/actuat metered dose nasal spray (3 sources) Corticosteroid fluticasone (PATRICK NASE) 50 mcg/actuation nasal spray Use 1 Pollock in each nostril as needed. 0 Active Comment on above: Use 1 Pollock in each nostril as needed. FREESTYLE JEANNE 2 SENSOR kit (3 sources) Start: FREESTYLE JEANNE 2 SENSOR kit hydrocortisone 25 mg/ml topical cream (11 sources) Corticosteroid Start: hydrocortisone (ANUSOL-HC) 2.5 % rectal cream APPLY RECTALLY TWICE DAILY FOR 10 DAYS 0 06/03/2020 Active Start: 03-13-2020 take 25 mg rectal ro brennen twice daily Anusol-HC 25 mg rectal suppository 25 mg = 1 supp, Rectal, BID, Refills(s) 0 Start Date: 03/13/20 Status: Ordered Comment on above: APPLY RECTALLY TWICE DAILY FOR 10 DAYS insulin regular, human (HUMULIN R U-500, CONC, KWIKPEN SUBCUTANEOUS) (3 sources) insulin regular, human (HUMULIN R U-500, CONC, KWIKPEN SUBCUTANEOUS) Inject subcutaneously. 0 Active Comment on above: Inject subcutaneousl y. levothyroxine sodium 0.15 mg oral tablet (18 sources) l-Thyroxine Start: 1 take 1 tablet by mouth once daily levothyroxine (SYNTHROID) 150 mcg tablet Take 150 mcg by mouth once daily. 0 06/03/2020 Active Start: 03-13-2020 take 1 tablet by jono th once daily levothyroxine 150 mcg (0.15 mg) Tab 150 mcg = 1 tab(s), Oral, Daily, Refills(s) 0 Start Date: 03/13/20 Status: Ordered Comment on above: Take 150 mcg by mout h once daily. losartan potassium 25 mg oral tablet (1 source) Angiotensin 2 Receptor Erick Start: 04-20-20 23 take 1 tablet by mouth once losartan (COZAAR) 25 mg tablet Take 1 tablet by mouth every afternoon. 0 04/20/2023 Active Comment on above: Take 1 tablet by jono th every afternoon. mupirocin 0.02 mg/mg topical ointment (3 sources) RNA Synthetase Inhibitor Antibacterial Start: 12-10-19 mupirocin (BACTROBAN) 2 % ointment ondansetron 4 mg oral tablet (3 sources) Serotonin-3 Receptor Antagonist Start: 10-29-19 21 take 1 tablet by mouth every six hours as needed ondansetron (ZOFRAN) 4 mg tablet Take 4 mg by mouth every 6 hours as needed. 0 10/28/2020 Active Comment on above: Take 4 mg by mouth e very 6 hours as needed. 10 actuat tiotropium 0.0025 mg/actuat inhalation spray (13 sources) Anticholinergic Start: 06-03-19 take 2 puff(s) by mouth once daily SPIRIVA RESPIMAT 2.5 mcg/actuation inhaler INHALE 2 PUFFS BY MOUTH EVERYDAY 0 06/03/2020 Active Start: 03-13-2020 Spiriva Respim at 1.25 mcg/inh inhalation aerosol 2 puff(s), Inhalation, Daily, Refill(s) 0 Start Date: 03/13/20 Status: Ordered take 2 puff(s) by in halation twice daily Spiriva Respimat 2.5 MCG/ACT 2 puffs Inhalation TWICE A DAY Active Comment on above: INHALE 2 PUFFS BY MO UTH EVERYDAY Problems Active Problems Problem Classification Problem Date Documented Da te Episodic/Chronic Abdominal pain (20 sources) Unspecified abdominal pain; Translations: [Epigastric pain] Onset: 2 Episodic Anxiety disorders (8 sources) Mixed anxiety and depressive disorder 03-13-2020 Chronic Chronic obstructive pulmonary disease and bronchiectasis (8 sources) Chronic obstructive lung disease 03-13-2020 Chronic Coagulation and hemorrhagic disorders (2 sources) Thrombocytopenic disorder; Translations: [Thrombocytopenia, unspecified] Onset: 4 06-26-2023 Chronic Coagulation and hemorrhagic disorders (9 sources) Thrombocytopenia due to hypersplenism; Translations: [Other secondary thrombocytopenia] Onset: 2 Episodic Coma; stupor; and brain damage (3 sources) Unspecified coma; Translations: [UNSPECIFIED COMA] Onset: 1 Episodic Conditions associated with dizziness or vertigo (2 sources) Dizziness and giddiness; Translations: [Dizziness and giddiness] Onset: 4 Episodic Deficiency and other anemia (8 sources) Iron deficiency anemia 03-18-2020 Episodic Diabetes mellitus with complications (12 sources) Type 2 diabetes mellitus with hypoglycemia without coma; Translations: [Type 2 diabetes mellitus with diabetic neuropathy, unspecified] Onset: 1 10-01-2020 Chronic Diabetes mellitus without complication (8 sources) Diabetes mellitus 03-13-2020 Chronic Disorders of lipid metabolism (9 sources) Hyperlipidemia, unspecified; Translations: [Hyperlipidemia] Onset: 1 03-13-2020 Chronic Diverticulosis and diverticulitis (4 sources) Diverticulitis of intestine, part unspecified, with perforation and abscess with bleeding; Translations: [DVTRCLI PRT UNS W/PERF ABSC W/BLEED] Onset: 2 Chronic Esophageal disorders (20 sources) Gastroesophageal reflux disease; Translations: [Gastro-esophageal reflux disease without esophagitis] Chronic Essential hypertension (8 sources) Hypertensive disorder 03-13-2020 Chronic Gastrointestinal hemorrhage (8 sources) Rectal hemorrhage 09-12-2020 Episodic Genitourinary symptoms and ill-defined conditions (13 sources) Mixed incontinence; Translations: [Incontinence] Onset: 3 Chronic Hemorrhoids (20 sources) Anal skin tag; Translations: [Hemorrhoids] 09-12-2020 Episodic Hepatitis (5 sources) Nonalcoholic steatohepatitis; Translations: [Nonalcoholic steatohepatitis (MENDEZ)] Onset: 3 Chronic Nausea and vomiting (17 sources) Nausea; Translations: [Nausea] Episodic Other aftercare (2 sources) terminologist (current) use of insulin; Translations: [JAIL CURRENT USE OF INSULIN] Onset: 1 Episodic Other aftercare (2 sources) Other intermodal truck driver (current) drug therapy; Translations: [OTH JAIL CURRENT DRUG THERAPY] Onset: 1 Episodic Other aftercare (1 source) nursing home (current) use of oral hypoglycemic drugs; Translations: [JAIL USE ORAL HYPOGLYCEMIC DX] Onset: 3 Episodic Other connective tissue disease (4 sources) Cramp and spasm; Translations: [CRAMP AND SPASM] Onset: 3 Episodic Other gastrointestinal disorders (5 sources) Diarrhea, unspecified; Translations: [DIARRHEA UNSPECIFIED] Onset: 2 Episodic Other gastrointestinal disorders (8 sources) Constipation 03-13-2020 Episodic Other gastrointestinal disorders (8 sources) Hyperplastic polyp of intestine 04-15-2020 Episodic Other gastrointestinal disorders (8 sources) Occult blood in stools 03-18-2020 Episodic Other hematologic conditions (2 sources) Hypersplenism; Translations: [HYPERSPLENISM] Onset: 3 Episodic Other hereditary and degenerative nervous system conditions (8 sources) Restless legs 03-13-2020 Chronic Other injuries and conditions due to external causes (1 source) History of falling; Translations: [HISTORY OF FALLING] Onset: 3 Episodic Other liver diseases (3 sources) Cirrhosis - non-alcoholic; Translations: [Unspecified cirrhosis of liver] Chronic Other liver diseases (1 source) Unspecified cirrhosis of liver; Translations: [UNSPECIFIED CIRRHOSIS OF LIVER] Onset: 3 Chronic Other nervous system disorders (8 sources) Peripheral nerve disease 03-13-2020 Chronic Other nervous system disorders (4 sources) Unsteadiness on feet; Translations: [UNSTEADINESS ON FEET] Onset: 3 Episodic Other nutritional; endocrine; and metabolic disorders (8 sources) Body mass index 30+ - obesity 12-31-2020 Chronic Other screening for suspected conditions (not mental disorders or infectious disease) (20 sources) Encounter for screening mammogram for malignant neoplasm of breast; Translations: [Encounter for screening for malignant neoplasm of rectum] Onset: 2 Episodic Residual codes; unclassified (1 source) Altered mental status, unspecified; Translations: [ALTERED MENTAL STATUS UNSPECIFIED] Onset: 1 Episodic Residual codes; unclassified (1 source) Family history of malignant neoplasm of breast; Translations: [FAMILY HX MALIG NEOPLASM OF BREAST] Onset: 3 Episodic Residual codes; unclassified (8 sources) FH: Liver disease 03-13-2020 Episodic Skin and subcutaneous tissue infections (8 sources) Furuncle 12-31-2020 Episodic Substance-related disorders (9 sources) Nicotine dependence, cigarettes, uncomplicated; Translations: [Smoker] Onset: 3 03-13-2020 Chronic Thyroid disorders (14 sources) Hypothyroidism, unspecified; Translations: [Hypothyroidism] Onset: 1 Chronic Viral infection (4 sources) COVID-19; Translations: [COVID-19] Onset: 3 Past or Other Problems Problem Classification Problem Date Documented Da te Episodic/Chronic Deficiency and other anemia (1 source) Anemia, unspecified; Translations: [ANEMIA UNSPECIFIED] Onset: 03-21-2022 Episodic Diabetes mellitus without complication (1 source) Other abnormal glucose; Translations: [OTHER ABNORMAL GLUCOSE] Onset: 03-21-2022 Episodic Menopausal disorders (1 source) Hormone replacement therapy; Translations: [HORMONE REPLACEMENT THERAPY] Onset: 05-26-2022 Episodic Other skin disorders (4 sources) Follicular disorder, unspecified; Translations: [FOLLICULAR DISORDER UNSPECIFIED] Onset: 05-22-2022 Episodic Results Test Name Value Interpretation Reference Range Facil ity Ambulatory Visit Summaryon 0 12-05-2023 Ambulatory Visit Summary Ambulatory Visit Summary RENETTA BARBOSA :1960 Visit Date:12/05/2023 Ambulatory Visit Instructions Your Diagnosis Mixed incontinence urge and stress Your Care Team Attending Physician - NGA SOLOMON PA-C Primary Care Physician - SHAKIRA HIGGINS CNP This Is Your Medications List albuterol (Ventolin HFA 90 mcg/inh Aerosol) armodafinil (armodafinil 250 mg oral tablet) atorvastatin (atorvastatin 40 mg Tab) bisacodyl (Dulcolax 5 mg Tab-EC) budesonide/formoterol/ glycopyrrolate (Breztri Aerosphere inhalation aerosol) calcium carbonate (calcium 500 mg tablet) cevimeline (cevimeline 30 mg oral capsule) cholecalciferol (cholecalciferol 2000 intl units oral capsule) cyanocobalamin (Vitamin B12 250 mcg oral tablet) cycloSPORINE ophthalmic (Restasis 0.05% Emulsion) diclofenac topical (diclofenac Top 1% gel) dicyclomine (dicyclomine 10 mg Cap) dulaglutide (Trulicity Pen 1.5 mg/0.5 mL subcutaneous solution) empagliflozin (Jardiance 25 mg oral tablet) estradiol topical (estradiol 10 mcg vaginal insert) furosemide (Lasix 40 mg Tab) gabapentin (gabapentin 300 mg Cap) hydrocortisone topical (Anusol-HC 25 mg rectal suppository) insulin regular (Humulin R (Concentrated) 500 units/mL subcutaneous solution) levothyroxine (levothyroxine 150 mcg (0.15 mg) Tab) omeprazole (omeprazole 40 mg Cap-DR) pantoprazole (Pantoprazole [address] Tab) pravastatin (pravastatin 40 mg Tab) primidone (primidone 50 mg Tab) tiotropium (Spiriva Respimat 1.25 mcg/inh inhalation aerosol) trazodone (traZODONE 100 mg Tab) venlafaxine (venlafaxine 150 mg Cap-ER) Procedures Performed EGD - Esophagogastroduodenos copy (09/24/2020), Colonoscopy (04/09/2020), Bilateral tubal ligation, Bile duct stone removal, section, Laparoscopic cholecystectomy, Ligation of bilateral fallopian tubes, Removal of gallstone from bile duct, Tonsillectomy and adenoidectomy. Discharge Vitals Heart Rate (Peripheral) 95 Blood Pressure 122/54 Height 62 in Height 157 cm Weight 207.9 lb Weight 94.5 kg BMI 38.34 What to do next Scheduled Follow-Up Appointments Tuesday 11:20 AM EDT With: NGA SOLOMON PA-C Where: [facility] Normal [address] [place] [address]- \.br\ You Need to Schedule the Following Appointments\.br\ Follow Up with NGA SOLOMON PA-C, URL When: In 2 weeks\.br\ Where:\.br\ [address]br\ [place] [address]\.br\ \.br\ Medications\.br\ What How Much When Instructions\.br\ Unchanged albuterol (Ventolin HFA 90 mcg/ inh Aerosol) 2 Puffs Inhalation 4 times a day as needed for Shortness of breath or wheezing\.br\ Unchanged armodafinil (armodafinil 250 mg oral tablet) 1 Tablets By Mouth Every day\.br\ Unchanged atorvastatin (atorvastatin 40 mg Tab) 1 Tablets By Mouth At bedtime\.br\ Unchanged bisacodyl (Dulcolax 5 mg Tab-EC) 4 Tablets By Mouth Once at 1:00pm the day prior to colonoscopy \.br\ Unchanged budesonide/ formoterol/ glycopyrrolate (Breztri Aerosphere inhalation aerosol) 2 Puffs 2 times a day\.br\ Unchanged calcium carbonate (calcium 500 mg tablet) 1 Tablets Chewed Every day\.br\ Unchanged cevimeline (cevimeline 30 mg oral capsule) 1 Capsules 3 times a day\.br\ Unchanged cholecalciferol (cholecalciferol 2000 intl units oral capsule) 1 Capsules By Mouth Every day\.br\ Unchanged cyanocobalamin (Vitamin B12 250 mcg oral tablet) 1 Tablets By Mouth Every day\.br\ Unchanged cycloSPORINE ophthalmic (Restasis 0.05% Emulsion) 1 Drops Both eyes 2 times a day\.br\ Unchanged diclofenac topical (diclofenac Top 1% gel) 2 Gram Topical 4 times a day\.br\ Unchanged dicyclomine (dicyclomine 10 mg Cap) 4 times a day\.br\ Unchanged dulaglutide (Trulicity Pen 1.5 mg/ 0.5 mL subcutaneous solution) 1.5 Milligram Subcutaneous Every week\.br\ Unchanged empagliflozin (Jardiance 25 mg oral tablet)\.br\ Unchanged estradiol topical (estradiol 10 mcg vaginal insert) See instructions Use one twice per week \.br\ Unchanged furosemide (Lasix 40 mg Tab) 1 Tablets By Mouth Every day\.br\ Unchanged gabapentin (gabapentin 300 mg Cap) 1 Capsules By Mouth At bedtime\.br\ Unchanged hydrocortisone topical (Anusol-HC 25 mg rectal suppository) 1 Suppositories By rectum 2 times a day\.br\ Unchanged insulin regular (Humulin R (Concentrated) 500 units/ mL subcutaneous solution) See instructions Inject 150 units at breakfast, 140 at lunch and 75 at HS \.br\ Unchanged levothyroxine (levothyroxine 150 mcg (0.15 mg) Tab) 1 Tablets By Mouth Every day\.br\ Unchanged omeprazole (omeprazole 40 mg Cap-DR) 1 Capsules By Mouth Every day\.br\ Unchanged pantoprazole (Pantoprazole [address] Tab) 1 Tablets 2 times a day\.br\ Unchanged pravastatin (pravastatin 40 mg Tab) 1 Tablets Every day\.br\ Unchanged primidone (primidone 50 mg Tab) 1 Tablets 2 times a day\.br\ Unchanged tiotropium (Spiriva Respimat 1.25 mcg/ inh inhalation aerosol) 2 Puffs Inhalation Every day\.br\ Unchanged trazodone (traZODONE 100 mg Tab) 1 Tablets Every day\.br\ Unchanged venlafaxine (venlafaxine 150 mg Cap-ER) 1 Capsules By Mouth Every day\.br\ Allergies\.br\ Capsaicin\.br\ Problems\.br\ Ongoing - Any problem that you are currently receiving treatment for.\.br\ Abdominal pain, epigastric\.br\ Abdominal pain, periumbilical\.br \ Anal skin tag\.br\ Anxiety with depression\.br\ Bleeding hemorrhoid\.br\ BMI 39.0-39.9,adult\. br\ Chronic obstructive pulmonary disease\.br\ Constipation\.br\ Diabetes\.br\ Family history of hepatic cirrhosis\.br\ Furuncle\.br\ Gastroparesis due to DM\.br\ GERD (gastroesophageal reflux disease)\.br\ Hemorrhoids\.br\ Hiatal hernia with GERD\.br\ HTN (hypertension)\.b r\ Hyperlipidemia\.b r\ Hyperplastic polyp of sigmoid colon\.br\ Hypothyroid\.br\ Iron deficiency anemia\.br\ Mixed incontinence urge and stress\.br\ Nausea\.br\ Nausea in adult\.br\ Occult blood in stools\.br\ Peripheral neuropathy\.br\ Positive colorectal cancer screening using Cologuard test\.br\ Rectal bleeding\.br\ RLS (restless legs syndrome)\.br\ Smoker\.br\ Thrombocytopenia\ .br\ Patient Survey\.br\ You may receive a survey via text or e-mail asking about your office visit. Please share your experience with us by completing your survey. We appreciate your feedback and thank you for choosing us for your care.\.br\ Education Materials\.br\ Kegel Exercises\.br\ \.br\ Kegel exercises can help strengthen your pelvic floor muscles. The pelvic floor is a group of muscles that support your rectum, small intestine, and bladder. In females, pelvic floor muscles also help support the uterus. These muscles help you control the flow of urine and stool (feces).\.br\ Kegel exercises are painless and simple. They do not require any equipment. Your provider may suggest Kegel exercises to:\.br\ ? \.br\ Improve bladder and bowel control.\.br\ ? \.br\ Improve sexual response.\.br\ ? \.br\ Improve weak pelvic floor muscles after surgery to remove the uterus (hysterectomy) or after , in females.\.br\ ? \.br\ Improve weak pelvic floor muscles after prostate gland removal or surgery, in males.\.br\ Kegel exercises involve squeezing your pelvic floor muscles. These are the same muscles you squeeze when you try to stop the flow of urine or keep from passing gas. The exercises can be done while sitting, standing, or lying down, but it is best to vary your position.\.br\ Ask your health care provider which exercises are safe for you. Do exercises exactly as told by your health care provider and adjust them as directed. Do not begin these exercises until told by your health care provider.\.br\ Exercises\.br\ How to do Kegel exercises:\.br\ 1. \.br\ Squeeze your pelvic floor muscles tight. You should feel a tight lift in your rectal area. If you are a female, you should also feel a tightness in your vaginal area. Keep your stomach, buttocks, and legs relaxed.\.br\ 2. \.br\ Hold the muscles tight for up to 10 seconds.\.br\ 3. \.br\ Breathe normally.\.br\ 4. \.br\ Relax your muscles for up to 10 seconds.\.br\ 5. \.br\ Repeat as told by your health care provider.\.br\ Repeat this exercise daily as told by your health care provider. Continue to do this exercise for at least 4?6 weeks, or for as long as told by your health care provider.\.br\ You may be referred to a physical therapist who can help you learn more about how to do Kegel exercises.\.br\ Depending on your condition, your health care provider may recommend:\.br\ ? \.br\ Varying how long you squeeze your muscles.\.br\ ? \.br\ Doing several sets of exercises every day.\.br\ ? \.br\ Doing exercises for several weeks.\.br\ ? \.br\ Making Kegel exercises a part of your regular exercise routine.\.br\ This information is not intended to replace advice given to you by your health care provider. Make sure you discuss any questions you have with your health care provider.\.br\ Document Revised: 09/17/2021 Document Reviewed: 09/17/2021 Elsevier Patient Education ? 2022 [employer].br\ \.br\ [facility] Interdisciplinary Note - Soc ial Workeron 12-05-2023 Interdisciplinary Note - Microstrategy Reports Developer Interdisciplinary Note - Microstrategy Reports Developer Consult for positive depression screen received. Chart review completed and it was noted that this consult has been received in error as patient's depression screen score was 0. SW will remain available. Normal [facility] Urology Office/Clinic Noteon 12-05-2023 Urology Office/Clinic Note Urology Office/Clinic Note Chief Complaint #3 /PFPT HPI Staff PFPT # 4 Pt is here for PFPT #4 have you been consistent with your home exercises this week? yes have you noticed any worsening in your symptoms this week? no have you noticed any improvement in your symptoms this week? somewhat, the changes noted are: She has been able to hold her urine better to get to the bathroom do you have any UTI sx (burning, foul odor, cloudy urine, etc)? no in office UA: NOT suspicious for UTI Current urinary medications: N/A Review of Systems no fever, chills, malaise, myalgia. no rash/lesions. no chest pain, palpitations, or SOB. no abdominal pain, nausea, vomiting. no unilateral calf swelling, redness, pain Physical Exam Vitals & Measurements HR: 95(Peripheral) BP: 122/54 HT: 62 in HT: 157 cm WT: 94.5 kg WT: 207.9 lb BMI: 38.34 General: nontoxic, NAD Mouth: moist mucosa Lungs: normal respiratory effort Cardio: regular rate, good distal perfusion Abdomen: nondistended, no suprapubic distention or tenderness, no CVA tenderness Neurologic: Grossly normal Skin: No rashes or suspicious lesions Assessment/Plan 1. Mixed incontinence urge and stress (N39.46: Mixed incontinence) PFPT #4 performed today. Much better today. Could really see contraction. First 2 reps (with coaching) held almost 8-9 seconds. Next few reps could barely hold it more than a couple seconds but could get it back for another quick flick with a second surge. Home exercise program prescribed 4x per day THIS WEEK: Contract - 5-6sec Relax - 20 (increased bc she takes a while to return to baseline!) Reps - 6 Quick Flicks - 6 Home exercise program prescribed 4x per day NEXT WEEK: Contract - 6-7sec Relax - 20 Reps - 7 Quick Flicks - 7 Return in 2 weeks for PFPT #5 Ordered: Body Mass Index (BMI) documented 3008F Current tobacco smoker 1034F Depression Screening Positive 3354F Influenza immunization status assessed 1030F Most recent diastolic blood pressure >=90 mm Hg 3080F Patient screen for fall risk: no falls in last year or 1 fall with no injury in last year 1101F Systolic BP <130 mm Hg (Most Recent) 3074F Urnls Dip Stick Auto w/o Microscopy POC 76518 Follow-up With When Contact Information JUANITO BREWER, NGA Freedman, URL In 2 weeks [address] [place] [address] Additional Instructions: Patient Education Kegel Exercises Problem List/Past Medical History Ongoing Abdominal pain, epigastric Abdominal pain, periumbilical Anal skin tag Anxiety with depression Bleeding hemorrhoid BMI 39.0-39.9,adult Chronic obstructive pulmonary disease Constipation Diabetes Family history of hepatic cirrhosis Furuncle Gastroparesis due to DM GERD (gastroesophageal reflux disease) Hemorrhoids Hiatal hernia with GERD HTN (hypertension) Hyperlipidemia Hyperplastic polyp of sigmoid colon Hypothyroid Iron deficiency anemia Mixed incontinence urge and stress Nausea Nausea in adult Occult blood in stools Peripheral neuropathy Positive colorectal cancer screening using Cologuard test Rectal bleeding RLS (restless legs syndrome) Smoker Thrombocytopenia Historical No qualifying data Procedure/Surgical History EGD - Esophagogastroduodenos copy (09/24/2020), Colonoscopy (04/09/2020), Bilateral tubal ligation, Bile duct stone removal, section, Laparoscopic cholecystectomy, Ligation of bilateral fallopian tubes, Removal of gallstone from bile duct, Tonsillectomy and adenoidectomy. Medications Anusol-HC 25 mg rectal suppository, 25 mg= 1 supp, Rectal, BID armodafinil 250 mg oral tablet, 250 mg= 1 tab(s), Oral, Daily atorvastatin 40 mg Tab, 40 mg= 1 tab(s), Oral, Bedtime Breztri Aerosphere inhalation aerosol, 2 puff(s), BID calcium 500 mg tablet, 500 mg= 1 tab(s), Chewed, Daily cevimeline 30 mg oral capsule, 30 mg= 1 cap(s), TID cholecalciferol 2000 intl units oral capsule, 2000 International_Unit= 1 cap(s), Oral, Daily diclofenac Top 1% gel, 2 gm, Topical, QID dicyclomine 10 mg Cap, QID Dulcolax 5 mg Tab-EC, 20 mg= 4 tab(s), Oral, Once estradiol 10 mcg vaginal insert, See Instructions gabapentin 300 mg Cap, 300 mg= 1 cap(s), Oral, Bedtime Humulin R (Concentrated) 500 units/mL subcutaneous solution, See Instructions Jardiance 25 mg oral tablet Lasix 40 mg Tab, 40 mg= 1 tab(s), Oral, Daily levothyroxine 150 mcg (0.15 mg) Tab, 150 mcg= 1 tab(s), Oral, Daily omeprazole 40 mg Cap-DR, 40 mg= 1 cap(s), Oral, Daily Pantoprazole [address] Tab, 40 mg= 1 tab(s), BID pravastatin 40 mg Tab, 40 mg= 1 tab(s), Daily primidone 50 mg Tab, 50 mg= 1 tab(s), BID Restasis 0.05% Emulsion, 1 drop(s), Eye-Both, BID Spiriva Respimat 1.25 mcg/inh inhalation aerosol, 2 puff(s), Inhalation, Daily traZODONE 100 mg Tab, 100 mg= 1 tab(s), Daily Trulicity Pen 1.5 mg/0.5 mL subcutaneous solution, 1.5 mg, SubCutaneous, qWeek venlafaxine 150 mg Cap-ER, 150 mg= 1 cap (more content not included)... Normal [facility] Comment on above: Result Comment: Elec tronically Signed By: NGA SOLOMON PA-C\Date and Time Signed: 12/05/23 12:19 EDT Ambulatory Visit Summaryon 0 11-28-2023 Ambulatory Visit Summary Ambulatory Visit Summary RENETTA BARBOSA :1960 Visit Date:11/28/2023 Ambulatory Visit Instructions Your Diagnosis Mixed incontinence urge and stress Your Care Team Attending Physician - NGA SOLOMON PA-C Primary Care Physician - SHAKIRA HIGGINS CNP This Is Your Medications List Contact prescribing physician if questions or concerns albuterol (Ventolin HFA 90 mcg/inh Aerosol) armodafinil (armodafinil 250 mg oral tablet) atorvastatin (atorvastatin 40 mg Tab) bisacodyl (Dulcolax 5 mg Tab-EC) budesonide/formoterol/ glycopyrrolate (Breztri Aerosphere inhalation aerosol) calcium carbonate (calcium 500 mg tablet) cevimeline (cevimeline 30 mg oral capsule) cholecalciferol (cholecalciferol 2000 intl units oral capsule) cyanocobalamin (Vitamin B12 250 mcg oral tablet) cycloSPORINE ophthalmic (Restasis 0.05% Emulsion) diclofenac topical (diclofenac Top 1% gel) dicyclomine (dicyclomine 10 mg Cap) dulaglutide (Trulicity Pen 1.5 mg/0.5 mL subcutaneous solution) empagliflozin (Jardiance 25 mg oral tablet) estradiol topical (estradiol 10 mcg vaginal insert) furosemide (Lasix 40 mg Tab) gabapentin (gabapentin 300 mg Cap) hydrocortisone topical (Anusol-HC 25 mg rectal suppository) insulin regular (Humulin R (Concentrated) 500 units/mL subcutaneous solution) levothyroxine (levothyroxine 150 mcg (0.15 mg) Tab) omeprazole (omeprazole 40 mg Cap-DR) pantoprazole (Pantoprazole [address] Tab) pravastatin (pravastatin 40 mg Tab) primidone (primidone 50 mg Tab) tiotropium (Spiriva Respimat 1.25 mcg/inh inhalation aerosol) trazodone (traZODONE 100 mg Tab) venlafaxine (venlafaxine 150 mg Cap-ER) Procedures Performed EGD - Esophagogastroduodenos copy (09/24/2020), Colonoscopy (04/09/2020), Bilateral tubal ligation, Bile duct stone removal, section, Laparoscopic cholecystectomy, Ligation of bilateral fallopian tubes, Removal of gallstone from bile duct, Tonsillectomy and adenoidectomy. Discharge Vitals Heart Rate (Peripheral) 95 Blood Pressure 148/67 Height 157 cm Height 62 in Weight 94.5 kg Weight 207.9 lb BMI 38.34 What to do next Scheduled Follow-Up Appointments Tuesday 11:20 AM EDT With: NGA SOLOMON PA-C Where: [facility] Invalid Interpretation Code [address] [place] [address]- \.br\ Tuesday 11:20 AM EDT \.br\ With: NGA SOLOMON PA-C\.br\ Where: [facility] Urology Office/Clinic Noteon 11-28-2023 Urology Office/Clinic Note Urology Office/Clinic Note Chief Complaint PFPT # 3 HPI Staff Pt is here for PFPT #3 have you been consistent with your home exercises this week? yes have you noticed any worsening in your symptoms this week? no have you noticed any improvement in your symptoms this week? no not being able to make it to the bathroom once a day this week. do you have any UTI sx (burning, foul odor, cloudy urine, etc)? no in office UA: NOT suspicious for UTI Current urinary medications: History of Present Illness staff HPI reviewed and agree. Tests Reviewed: Reviewed UA. Review of Systems PHQ Score Initial Depression Screen Score: 0 SCORE no fever, chills, malaise, myalgia. no rash/lesions. no chest pain, palpitations, or SOB. no abdominal pain, nausea, vomiting. no unilateral calf swelling, redness, pain Physical Exam Vitals & Measurements HR: 95(Peripheral) BP: 148/67 HT: 62 in HT: 157 cm WT: 94.5 kg WT: 207.9 lb BMI: 38.34 General: nontoxic, NAD Mouth: moist mucosa Lungs: normal respiratory effort Cardio: regular rate, good distal perfusion Abdomen: nondistended, no suprapubic distention or tenderness, no CVA tenderness Neurologic: Grossly normal Skin: No rashes or suspicious lesions Assessment/Plan 1. Mixed incontinence urge and stress (N39.46: Mixed incontinence) PFPT #3 performed today. Needs to work on strong contraction and breathing through movement. Home exercise program prescribed 4x per day: Contract - 5 Relax - 10 Reps - 5 Quick Flicks - 5 Couldn't really appreciate much of a contraction today. Not sure if was equipment issue or pt not getting strong enough contraction. Offered options: continue another week, stop PFPT and discuss other options, try PFPT at [facility] or [facility]. Pt prefers options #1. Follow up 1 week for PFPT #4 or sooner if needed. Pt understands and agrees with plan. Follow-up With When Contact Information JUANITO BREWER, NGA Freedman, URL [address] [facility] [place] [address] Additional Instructions: 1 week PFPT #4 Patient Education Kegel Exercises Documentation recorded by the scribtano Batista accurately reflects the services(s) I performed and decisions made by me. Authenticated by Nga Solomon PA-C on 11/28/2023 12:54:06. ILorie, personally scribed for FRANCES Peñaloza on 11/28/2023 11:56:30. . Problem List/Past Medical History Ongoing Abdominal pain, epigastric Abdominal pain, periumbilical Anal skin tag Anxiety with depression Bleeding hemorrhoid BMI 39.0-39.9,adult Chronic obstructive pulmonary disease Constipation Diabetes Family history of hepatic cirrhosis Furuncle Gastroparesis due to DM GERD (gastroesophageal reflux disease) Hemorrhoids Hiatal hernia with GERD HTN (hypertension) Hyperlipidemia Hyperplastic polyp of sigmoid colon Hypothyroid Iron deficiency anemia Mixed incontinence urge and stress Nausea Nausea in adult Occult blood in stools Peripheral neuropathy Positive colorectal cancer screening using Cologuard test Rectal bleeding RLS (restless legs syndrome) Smoker Thrombocytopenia Historical No qualifying data Procedure/Surgical History EGD - Esophagogastroduodenos copy (09/24/2020), Colonoscopy (04/09/2020), Bilateral tubal ligation, Bile duct stone removal, section, Laparoscopic cholecystectomy, Ligation of bilateral fallopian tubes, Removal of gallstone from bile duct, Tonsillectomy and adenoidectomy. Medications Anusol-HC 25 mg rectal suppository, 25 mg= 1 supp, Rectal, BID armodafinil 250 mg oral tablet, 250 mg= 1 tab(s), Oral, Daily atorvastatin 40 mg Tab, 40 mg= 1 tab(s), Oral, Bedtime Breztri Aerosphere inhalation aerosol, 2 puff(s), BID calcium 500 mg tablet, 500 mg= 1 tab(s), Chewed, Daily cevimeline 30 mg oral capsule, 30 mg= 1 cap(s), TID cholecalciferol 2000 intl units oral capsule, 2000 International_Unit= 1 cap(s), Oral, Daily diclofenac Top 1% gel, 2 gm, Topical, QID dicyclomine 10 mg Cap, QID Dulcolax 5 mg Tab-EC, 20 mg= 4 tab(s), Oral, Once estradiol 10 mcg vaginal insert, See Instructions gabapentin 300 mg Cap, 300 mg= 1 cap(s), Oral, Bedtime Humulin R (Concentrated) 500 units/mL subcutaneous solution, See Instructions Jardiance 25 mg oral tablet Lasix 40 mg Tab, 40 mg= 1 tab(s), Oral, Daily levothyroxine 150 mcg (0.15 mg) Tab, 150 mcg= 1 tab(s), Oral, Daily omeprazole 40 mg Cap-DR, 40 mg= 1 cap(s), Oral, Daily Pantoprazole [address] Tab, 40 mg= 1 tab(s), BID pravastatin 40 mg Tab, 40 mg= 1 tab(s), Daily primidone 50 mg Tab, 50 mg= 1 tab(s), BID Restasis 0.05% Emulsion, 1 drop(s), Eye-Both, BID Spiriva Respimat 1.25 mcg/inh inhalation aerosol, 2 puff(s), Inhalation, Daily traZODONE 100 mg Tab, 100 mg= 1 tab(s), Daily Trulicity Pen 1.5 mg/0.5 mL subcutaneous solution, 1.5 mg, SubCutaneous, qWeek venlafaxine 150 mg Cap-ER, 150 mg= 1 cap(s), Oral, Daily Magdaleno (more content not included)... Normal [facility] Comment on above: Result Comment: Elec tronically Signed By: JUANITO BREWER, NGA Freedman\.br\Date and Time Signed: 11/28/23 12:54 EDT\.br\Electronically Co-Signed By: Lorie Batista\.br\Date and Time Co-Signed: 11/28/23 11:57 EDT Ambulatory Visit Summaryon 0 11-21-2023 Ambulatory Visit Summary Ambulatory Visit Summary RENETTA BARBOSA :1960 Visit Date:11/21/2023 Ambulatory Visit Instructions Your Diagnosis Mixed incontinence urge and stress Your Care Team Attending Physician - NGA SOLOMON PA-C Primary Care Physician - SHAKIRA HIGGINS CNP This Is Your Medications List albuterol (Ventolin HFA 90 mcg/inh Aerosol) armodafinil (armodafinil 250 mg oral tablet) atorvastatin (atorvastatin 40 mg Tab) bisacodyl (Dulcolax 5 mg Tab-EC) budesonide/formoterol/ glycopyrrolate (Breztri Aerosphere inhalation aerosol) calcium carbonate (calcium 500 mg tablet) cevimeline (cevimeline 30 mg oral capsule) cholecalciferol (cholecalciferol 2000 intl units oral capsule) cyanocobalamin (Vitamin B12 250 mcg oral tablet) cycloSPORINE ophthalmic (Restasis 0.05% Emulsion) diclofenac topical (diclofenac Top 1% gel) dicyclomine (dicyclomine 10 mg Cap) dulaglutide (Trulicity Pen 1.5 mg/0.5 mL subcutaneous solution) empagliflozin (Jardiance 25 mg oral tablet) estradiol topical (estradiol 10 mcg vaginal insert) furosemide (Lasix 40 mg Tab) gabapentin (gabapentin 300 mg Cap) hydrocortisone topical (Anusol-HC 25 mg rectal suppository) insulin regular (Humulin R (Concentrated) 500 units/mL subcutaneous solution) levothyroxine (levothyroxine 150 mcg (0.15 mg) Tab) omeprazole (omeprazole 40 mg Cap-DR) pantoprazole (Pantoprazole [address] Tab) pravastatin (pravastatin 40 mg Tab) primidone (primidone 50 mg Tab) tiotropium (Spiriva Respimat 1.25 mcg/inh inhalation aerosol) trazodone (traZODONE 100 mg Tab) venlafaxine (venlafaxine 150 mg Cap-ER) Procedures Performed EGD - Esophagogastroduodenos copy (09/24/2020), Colonoscopy (04/09/2020), Bilateral tubal ligation, section, Laparoscopic cholecystectomy, Removal of gallstone from bile duct, Tonsillectomy and adenoidectomy. Discharge Vitals Temperature (Temporal Artery) 36.6 ?C Heart Rate (Peripheral) 74 Respiratory Rate 15 Blood Pressure 131/11 Height 157 cm Height 62 in Weight 94.5 kg Weight 207.9 lb BMI 38.34 What to do next Scheduled Follow-Up Appointments Tuesday 11:20 AM EDT With: NGA SOLOMON PA-C Where: [facility] Invalid Interpretation Code [address] [place] [address]- \.br\ Tuesday 11:20 AM EDT \.br\ With: NGA SOLOMON PA-C\.br\ Where: [facility] Urology Office/Clinic Noteon 11-21-2023 Urology Office/Clinic Note Urology Office/Clinic Note Chief Complaint PFPT # 2 HPI Staff 63 year old female present presents for PFPT #2 Pt is here for PFPT #2 have you been consistent with your home exercises this week? yes was doing it daily but not 5 times a day, 2 x a day have you noticed any worsening in your symptoms this week? no have you noticed any improvement in your symptoms this week? somewhat, the changes noted are: there is not warning, only twice during the week do you have any UTI sx (burning, foul odor, cloudy urine, etc)? no in office UA: NOT suspicious for UTI Current urinary medications: N/A Review of Systems PHQ Score Initial Depression Screen Score: 0 SCORE no fever, chills, malaise, myalgia. no rash/lesions. no chest pain, palpitations, or SOB. no abdominal pain, nausea, vomiting. no unilateral calf swelling, redness, pain Physical Exam Vitals & Measurements T: 36.6 ?C(Temporal Artery) HR: 74(Peripheral) RR: 15 BP: 131/11 HT: 62 in HT: 157 cm WT: 94.5 kg WT: 207.9 lb BMI: 38.34 General: nontoxic, NAD Mouth: moist mucosa Lungs: normal respiratory effort Cardio: regular rate, good distal perfusion Abdomen: nondistended, no suprapubic distention or tenderness, no CVA tenderness Neurologic: Grossly normal Skin: No rashes or suspicious lesions Assessment/Plan 1. Mixed incontinence urge and stress (N39.46: Mixed incontinence) PFPT #2 performed today. Needs to work on strong contraction and breathing through movement. Home exercise program prescribed 4x per day: Contract - 6 Relax - 10 Reps - 6 Quick Flicks - 6 Pt will return in 1 week(s) for session #3 Ordered: 76053 EMG anal/urethral sphincter no needle 20322 Biofeedback training, perineal muscles, anorectal 07573 Anorectal Manometry 10657 ELECTRICAL STIMULATION 52021 Urnls Dip Stick Auto w/o Microscopy POC 62710 Follow-up With When Contact Information NGA SOLOMON PA-C, URL In 1 week [address] [place] [address] Additional Instructions: Patient Education Overactive Bladder, Adult Problem List/Past Medical History Ongoing Abdominal pain, epigastric Abdominal pain, periumbilical Anal skin tag Anxiety with depression Bleeding hemorrhoid BMI 39.0-39.9,adult Chronic obstructive pulmonary disease Constipation Diabetes Family history of hepatic cirrhosis Furuncle Gastroparesis due to DM GERD (gastroesophageal reflux disease) Hemorrhoids Hiatal hernia with GERD HTN (hypertension) Hyperlipidemia Hyperplastic polyp of sigmoid colon Hypothyroid Iron deficiency anemia Mixed incontinence urge and stress Nausea Nausea in adult Occult blood in stools Peripheral neuropathy Positive colorectal cancer screening using Cologuard test Rectal bleeding RLS (restless legs syndrome) Smoker Thrombocytopenia Historical No qualifying data Procedure/Surgical History EGD - Esophagogastroduodenos copy (09/24/2020), Colonoscopy (04/09/2020), Bilateral tubal ligation, section, Laparoscopic cholecystectomy, Removal of gallstone from bile duct, Tonsillectomy and adenoidectomy. Medications Anusol-HC 25 mg rectal suppository, 25 mg= 1 supp, Rectal, BID armodafinil 250 mg oral tablet, 250 mg= 1 tab(s), Oral, Daily atorvastatin 40 mg Tab, 40 mg= 1 tab(s), Oral, Bedtime Breztri Aerosphere inhalation aerosol, 2 puff(s), BID calcium 500 mg tablet, 500 mg= 1 tab(s), Chewed, Daily cevimeline 30 mg oral capsule, 30 mg= 1 cap(s), TID cholecalciferol 2000 intl units oral capsule, 2000 International_Unit= 1 cap(s), Oral, Daily diclofenac Top 1% gel, 2 gm, Topical, QID dicyclomine 10 mg Cap, QID Dulcolax 5 mg Tab-EC, 20 mg= 4 tab(s), Oral, Once estradiol 10 mcg vaginal insert, See Instructions gabapentin 300 mg Cap, 300 mg= 1 cap(s), Oral, Bedtime Humulin R (Concentrated) 500 units/mL subcutaneous solution, See Instructions Jardiance 25 mg oral tablet Lasix 40 mg Tab, 40 mg= 1 tab(s), Oral, Daily levothyroxine 150 mcg (0.15 mg) Tab, 150 mcg= 1 tab(s), Oral, Daily omeprazole 40 mg Cap-DR, 40 mg= 1 cap(s), Oral, Daily Pantoprazole [address] Tab, 40 mg= 1 tab(s), BID pravastatin 40 mg Tab, 40 mg= 1 tab(s), Daily primidone 50 mg Tab, 50 mg= 1 tab(s), BID Restasis 0.05% Emulsion, 1 drop(s), Eye-Both, BID Spiriva Respimat 1.25 mcg/inh inhalation aerosol, 2 puff(s), Inhalation, Daily traZODONE 100 mg Tab, 100 mg= 1 tab(s), Daily Trulicity Pen 1.5 mg/0.5 mL subcutaneous solution, 1.5 mg, SubCutaneous, qWeek venlafaxine 150 mg Cap-ER, 150 mg= 1 cap(s), Oral, Daily Ventolin HFA 90 mcg/inh Aerosol, 2 puff(s), Inhalation, QID, PRN Vitamin B12 250 mcg oral tablet, 250 mcg= 1 tab(s), Oral, Daily Allergies Capsaicin Social History Alcohol - Denies Alcohol Use, 03/18/2020 Substance Abuse Past, Marijuana, Daily, 12/31/2020 Tobacco 10 or more cigarettes (1/2 pack or more)/day in last 30 days Tobacco Use:. Never Smokeless Tobacco Use:. Cigarett (more content not included)... Normal [facility] Comment on above: Result Comment: Elec tronically Signed By: NGA SOLOMON PA-C\.br\Date and Time Signed: 11/21/23 12:27 EDT Consent for Procedure/Surger yon 11-15-2023 Consent for Procedure/Surgery [id number]#1.00 TIFF Normal [facility] EMG Electromyographyon 11-14 EMG Electromyography [id number]#1.00 TIFF Normal [facility] Ambulatory Visit Summaryon 0 11-14-2023 Ambulatory Visit Summary RENETTA BARBOSA Gabriela :1960 Visit Date:11/14/2023 Ambulatory Visit Instructions Your Diagnosis Mixed incontinence urge and stress Your Care Team Attending Physician - NGA SOLOMON PA-C Primary Care Physician - SHAKIRA HIGGINS CNP This Is Your Medications List Contact prescribing physician if questions or concerns albuterol (Ventolin HFA 90 mcg/inh Aerosol) armodafinil (armodafinil 250 mg oral tablet) atorvastatin (atorvastatin 40 mg Tab) bisacodyl (Dulcolax 5 mg Tab-EC) budesonide/formoterol/ glycopyrrolate (Breztri Aerosphere inhalation aerosol) calcium carbonate (calcium 500 mg tablet) cevimeline (cevimeline 30 mg oral capsule) cholecalciferol (cholecalciferol 2000 intl units oral capsule) cyanocobalamin (Vitamin B12 250 mcg oral tablet) cycloSPORINE ophthalmic (Restasis 0.05% Emulsion) diclofenac topical (diclofenac Top 1% gel) dicyclomine (dicyclomine 10 mg Cap) dulaglutide (Trulicity Pen 1.5 mg/0.5 mL subcutaneous solution) empagliflozin (Jardiance 25 mg oral tablet) estradiol topical (estradiol 10 mcg vaginal insert) furosemide (Lasix 40 mg Tab) gabapentin (gabapentin 300 mg Cap) hydrocortisone topical (Anusol-HC 25 mg rectal suppository) insulin regular (Humulin R (Concentrated) 500 units/mL subcutaneous solution) levothyroxine (levothyroxine 150 mcg (0.15 mg) Tab) omeprazole (omeprazole 40 mg Cap-DR) pantoprazole (Pantoprazole [address] Tab) pravastatin (pravastatin 40 mg Tab) primidone (primidone 50 mg Tab) tiotropium (Spiriva Respimat 1.25 mcg/inh inhalation aerosol) trazodone (traZODONE 100 mg Tab) venlafaxine (venlafaxine 150 mg Cap-ER) [Image Removed: STOP]Stop taking these medications buPROPion (buPROPion 300 mg XL /24 hrs) busPIRone (busPIRone 15 mg Tab) metformin (metformin 1000 mg Tab) trazodone (traZODONE 50 mg Tab) Procedures Performed EGD - Esophagogastroduodenos copy (09/24/2020), Colonoscopy (04/09/2020), Bilateral tubal ligation, section, Laparoscopic cholecystectomy, Removal of gallstone from bile duct, Tonsillectomy and adenoidectomy. Discharge Vitals Temperature (Temporal Artery) 36.5 ?C Heart Rate (Peripheral) 78 Blood Pressure 150/88 Height 157 cm Height 62 in Weight 94.5 kg Weight 207.9 lb BMI 38.34 What to do next Scheduled Follow-Up Appointments Tuesday 11:20 AM EDT With: NGA SOLOMON PA-C Where: [facility] Invalid Interpretation Code [address] [place] [place] [address]- \.br\ Tuesday 11:20 AM EDT \.br\ With: NGA SOLOMON PA-C\.br\ Where: [facility] Patient Educationon 11-14-19 Patient Education Obstetrics and Gynecology Overactive Bladder, Adult Overactive bladder is a condition in which a person has a sudden and frequent need to urinate. A person might also leak urine if he or she cannot get to the bathroom fast enough (urinary incontinence). Sometimes, symptoms can interfere with work or social activities. What are the causes? Overactive bladder is associated with poor nerve signals between your bladder and your brain. Your bladder may get the signal to empty before it is full. You may also have very sensitive muscles that make your bladder squeeze too soon. This condition may also be caused by other factors, such as: ? Medical conditions: ? Urinary tract infection. ? Infection of nearby tissues. ? Prostate enlargement. ? Bladder stones, inflammation, or tumors. ? Diabetes. ? Muscle or nerve weakness, especially from these conditions: ? A spinal cord injury. ? Stroke. ? Multiple sclerosis. ? Parkinson's disease. ? Other causes: ? Surgery on the uterus or urethra. ? Drinking too much caffeine or alcohol. ? Certain medicines, especially those that eliminate extra fluid in the body (diuretics). ? Constipation. What increases the risk? You may be at greater risk for overactive bladder if you: ? Are an older adult. ? Smoke. ? Are going through menopause. ? Have prostate problems. ? Have a neurological disease, such as stroke, dementia, Parkinson's disease, or multiple sclerosis (MS). ? Eat or drink alcohol, spicy food, caffeine, and other things that irritate the bladder. ? Are overweight or obese. What are the signs or symptoms? Symptoms of this condition include a sudden, strong urge to urinate. Other symptoms include: ? Leaking urine. ? Urinating 8 or more times a day. ? Waking up to urinate 2 or more times overnight. How is this diagnosed? This condition may be diagnosed based on: ? Your symptoms and medical history. ? A physical exam. ? Blood or urine tests to check for possible causes, such as infection. You may also need to see a health care provider who specializes in urinary tract problems. This is called a urologist. How is this treated? Treatment for overactive bladder depends on the cause of your condition and whether it is mild or severe. Treatment may include: ? Bladder training, such as: ? Learning to control the urge to urinate by following a schedule to urinate at regular intervals. ? Doing Kegel exercises to strengthen the pelvic floor muscles that support your bladder. ? Special devices, such as: ? Biofeedback. This uses sensors to help you become aware of your body's signals. ? Electrical stimulation. This uses electrodes placed inside the body (implanted) or outside the body. These electrodes send gentle pulses of electricity to strengthen the nerves or muscles that control the bladder. ? Women may use a plastic device, called a pessary, that fits into the vagina and supports the bladder. ? Medicines, such as: ? Antibiotics to treat bladder infection. ? Antispasmodics to stop the bladder from releasing urine at the wrong time. ? Tricyclic antidepressants to relax bladder muscles. ? Injections of botulinum toxin type A directly into the bladder tissue to relax bladder muscles. ? Surgery, such as: ? A device may be implanted to help manage the nerve signals that control urination. ? An electrode may be implanted to stimulate electrical signals in the bladder. ? A procedure may be done to change the shape of the bladder. This is done only in very severe cases. Follow these instructions at home: Eating and drinking ? Make diet or lifestyle changes recommended by your health care provider. These may include: ? Drinking fluids throughout the day and not only with meals. ? Cutting down on caffeine or alcohol. ? Eating a healthy and balanced diet to prevent constipation. This may include: ? Choosing foods that are high in fiber, such as beans, whole grains, and fresh fruits and vegetables. ? Limiting foods that are high in fat and processed sugars, such as fried and sweet foods. Lifestyle ? Lose weight if needed. ? Do not use any products that contain nicotine or tobacco. These include cigarettes, chewing tobacco, and vaping devices, such as e-cigarettes. If you need help quitting, ask your health care provider. General instructions ? Take yrwo-ifj-dkrvhak and prescription medicines only as told by your health care provider. ? If you were prescribed an antibiotic medicine, take it as told by your health care provider. Do not stop taking the antibiotic even if you start to feel better. ? Use any implants or pessary as told by your health care provider. ? If needed, wear pads to absorb urine leakage. ? Keep a log to track how much and when you drink, and when you need to urinate. This will help your health care provider monitor yo (more content not included)... Normal [facility] Urology Office/Clinic Noteon 11-14-2023 Urology Office/Clinic Note Chief Complaint PFPT #1 HPI Staff Pt is here for first PFPT Pt is here for PFPT #1 Baseline urinary symptoms: urgency moderate daytime frequency 5-10 minutes nocturia x1 urge incontinence moderate stress incontinence moderate HOLA vs UUI UUI more bothersome than HOLA incontinence protection: adult briefs changes 1-2 times per day pelvic pain at rest none pelvic pain with intercourse n/a Quality of life: If you were to spend the rest of your life with your urinary condition just the way it is now, how would you feel about that? miserable Current urinary medications: None Previous treatments tried: N/A Review of Systems PHQ Score Initial Depression Screen Score: 0 SCORE no fever, chills, malaise, myalgia. no rash/lesions. no chest pain, palpitations, or SOB. no abdominal pain, nausea, vomiting. no unilateral calf swelling, redness, pain Physical Exam Vitals & Measurements T: 36.5 ?C(Temporal Artery) HR: 78(Peripheral) BP: 150/88 HT: 62 in HT: 157 cm WT: 94.5 kg WT: 207.9 lb BMI: 38.34 General: nontoxic, NAD Mouth: moist mucosa Lungs: normal respiratory effort Cardio: regular rate, good distal perfusion Abdomen: nondistended, no suprapubic distention or tenderness, no CVA tenderness Neurologic: Grossly normal Skin: No rashes or suspicious lesions Assessment/Plan 1. Mixed incontinence urge and stress (N39.46: Mixed incontinence) PFPT #1 performed today. Did well identifying pelvic floor. minimal ab involvement but was holding her breath each time. Home exercise program prescribed 4x per day: Contract - 5 Relax - 10 Reps - 5 Quick Flicks - 5 Pt will return in 1 week(s) for session #2 Ordered: 81237 EMG anal/urethral sphincter no needle 70315 Biofeedback training, perineal muscles, anorectal 02673 Anorectal Manometry 51101 ELECTRICAL STIMULATION 56677 Urnls Dip Stick Auto w/o Microscopy POC 98383 Urnls Dip Stick Auto w/o Microscopy POC 80485 Follow-up With When Contact Information NGA SOLOMON PA-C, YARA In 1 week [address] [place] [address] Additional Instructions: Patient Education Overactive Bladder, Adult Problem List/Past Medical History Ongoing Abdominal pain, epigastric Abdominal pain, periumbilical Anal skin tag Anxiety with depression Bleeding hemorrhoid BMI 39.0-39.9,adult Chronic obstructive pulmonary disease Constipation Diabetes Family history of hepatic cirrhosis Furuncle Gastroparesis due to DM GERD (gastroesophageal reflux disease) Hemorrhoids Hiatal hernia with GERD HTN (hypertension) Hyperlipidemia Hyperplastic polyp of sigmoid colon Hypothyroid Iron deficiency anemia Mixed incontinence urge and stress Nausea Nausea in adult Occult blood in stools Peripheral neuropathy Positive colorectal cancer screening using Cologuard test Rectal bleeding RLS (restless legs syndrome) Smoker Thrombocytopenia Historical No qualifying data Procedure/Surgical History EGD - Esophagogastroduodenos copy (09/24/2020), Colonoscopy (04/09/2020), Bilateral tubal ligation, section, Laparoscopic cholecystectomy, Removal of gallstone from bile duct, Tonsillectomy and adenoidectomy. Medications Anusol-HC 25 mg rectal suppository, 25 mg= 1 supp, Rectal, BID armodafinil 250 mg oral tablet, 250 mg= 1 tab(s), Oral, Daily atorvastatin 40 mg Tab, 40 mg= 1 tab(s), Oral, Bedtime Breztri Aerosphere inhalation aerosol, 2 puff(s), BID calcium 500 mg tablet, 500 mg= 1 tab(s), Chewed, Daily cevimeline 30 mg oral capsule, 30 mg= 1 cap(s), TID cholecalciferol 2000 intl units oral capsule, 2000 International_Unit= 1 cap(s), Oral, Daily diclofenac Top 1% gel, 2 gm, Topical, QID dicyclomine 10 mg Cap, QID Dulcolax 5 mg Tab-EC, 20 mg= 4 tab(s), Oral, Once estradiol 10 mcg vaginal insert, See Instructions gabapentin 300 mg Cap, 300 mg= 1 cap(s), Oral, Bedtime Humulin R (Concentrated) 500 units/mL subcutaneous solution, See Instructions Jardiance 25 mg oral tablet Lasix 40 mg Tab, 40 mg= 1 tab(s), Oral, Daily levothyroxine 150 mcg (0.15 mg) Tab, 150 mcg= 1 tab(s), Oral, Daily omeprazole 40 mg Cap-DR, 40 mg= 1 cap(s), Oral, Daily Pantoprazole [address] Tab, 40 mg= 1 tab(s), BID pravastatin 40 mg Tab, 40 mg= 1 tab(s), Daily, Not taking primidone 50 mg Tab, 50 mg= 1 tab(s), BID Restasis 0.05% Emulsion, 1 drop(s), Eye-Both, BID Spiriva Respimat 1.25 mcg/inh inhalation aerosol, 2 puff(s), Inhalation, Daily traZODONE 100 mg Tab, 100 mg= 1 tab(s), Daily Trulicity Pen 1.5 mg/0.5 mL subcutaneous solution, 1.5 mg, SubCutaneous, qWeek venlafaxine 150 mg Cap-ER, 150 mg= 1 cap(s), Oral, Daily Ventolin HFA 90 mcg/inh Aerosol, 2 puff(s), Inhalation, QID, PRN Vitamin B12 250 mcg oral tablet, 250 mcg= 1 tab(s), Oral, Daily Allergies Capsaicin Social History Alcohol - Denies Alcohol Use, 03/18/2020 Substance Abuse Past, Marijuana, Daily, 12/31/2020 Tobacco 10 or more (more content not included)... Normal [facility] Comment on above: Result Comment: Elec tronically Signed By: JUANITO BREWER, NGA Freedman\.br\Date and Time Signed: 11/14/23 12:44 EDT Office Visiton 08-02-2023 Follow-up visit [id number] Renetta Barbosa 1960 F Date Provider Department Center 08/02/2023 CHAVA NUNES FENG [facility] Family History Problem Relation Age of Onset Diabetes Mother Lung cancer Father Breast cancer Maternal Grandmother Family Status - Relation Status Age at Mother Father Maternal Grandmother Level of Service:42623 LA OFFICE/OUTPATIENT NEW MODERATE MDM 45 MINUTES Normal [facility] CBC W Auto Differential pane l (Bld)on 06-23-2023 Basophils (Bld) [#/Vol] 0.03 10*3/uL Normal <0.11 [facility] Comment on above: Order Comment: Speci men Type: BLOOD SPECIMEN Ordering Facility: [facility] Address: [address] [place] [place] [address] Performed By: #### 5 7021-8 #### [facility] CLIA [id number] [address] [place] [address] Basophils/100 WBC (Bld) 0.5 % Normal [facility] Comment on above: Order Comment: Speci men Type: BLOOD SPECIMEN Ordering Facility: [facility] Address: [address] [place] [address] Performed By: #### 5 7021-8 #### [facility] CLIA [id number] [address] [place] [address] Differential cell count method Nom (Bld) Auto Normal [facility] Comment on above: Order Comment: Speci men Type: BLOOD SPECIMEN Ordering Facility: [facility] Address: [address] [place] [address] Performed By: #### 5 7021-8 #### [facility] CLIA [id number] [address] [place] [address]668 Eosinophils (Bld) [#/Vol] 0.06 10*3/uL Normal <0.46 [facility] Comment on above: Order Comment: Speci men Type: BLOOD SPECIMEN Ordering Facility: [facility] Address: [address] [place] [address] Performed By: #### 5 7021-8 #### [facility] CLIA [id number] [address] [place] [address] 47652 Eosinophils/100 WBC (Bld) 1.0 % Normal [facility] Comment on above: Order Comment: Speci men Type: BLOOD SPECIMEN Ordering Facility: [facility] Address: [address] [place] [address] Performed By: #### 5 7021-8 #### [facility] CLIA [id number] [address] [place] [address] Erythrocyte distribution width (RBC) [Ratio] 16.0 % High 11.5-15.0 [facility] Comment on above: Order Comment: Speci men Type: BLOOD SPECIMEN Ordering Facility: [facility] Address: [address] [place] [address] Performed By: #### 5 7021-8 #### [facility] CLIA [id number] [address] [place] [address]7982 Hematocrit (Bld) [Volume fraction] 43.6 % Normal 36.0-46.0 [facility] Comment on above: Order Comment: Speci men Type: BLOOD SPECIMEN Ordering Facility: [facility] Address: [facility] [place] [address] Performed By: #### 5 7021-8 #### [facility] CLIA [id number] [address] [place] [address]42 Hemoglobin (Bld) [Mass/Vol] 13.7 g/dL Normal 11.5-15.5 [facility] Comment on above: Order Comment: Speci men Type: BLOOD SPECIMEN Ordering Facility: [facility] Address: [address] [place], [place] [id number] Performed By: #### 5 7021-8 #### [facility] CLIA [id number] [address] [place] [address]752 Immature granulocytes (Bld) [#/Vol] 10*3/uL Normal <0.10 [facility] Comment on above: Order Comment: Speci men Type: BLOOD SPECIMEN Ordering Facility: [facility] Address: [address] [place] [address] Performed By: #### 5 7021-8 #### [facility] CLIA [id number] [address] [place] [address] 48452 Immature granulocytes/100 WBC (Bld) 0.3 % Normal [facility] Comment on above: Order Comment: Speci men Type: BLOOD SPECIMEN Ordering Facility: [facility] Address: [address] [place] [address] Performed By: #### 5 7021-8 #### [facility] CLIA [id number] [address] [place] [address] Lymphocytes (Bld) [#/Vol] 1.03 10*3/uL Normal 1.00-4.00 [facility] Comment on above: Order Comment: Speci men Type: BLOOD SPECIMEN Ordering Facility: [facility] Address: [address] [place] [address] Performed By: #### 5 7021-8 #### [facility] CLIA [id number] [address] [place] [address] 32479 Lymphocytes/100 WBC (Bld) 17.3 % Normal [facility] Comment on above: Order Comment: Speci men Type: BLOOD SPECIMEN Ordering Facility: [facility] Address: [address] [place] [address]99 Performed By: #### 5 7021-8 #### [facility] CLIA [id number] [address] [place] [address] 96258 MCH (RBC) [Entitic mass] 26.7 pg Normal 26.0-34.0 [facility] Comment on above: Order Comment: Speci men Type: BLOOD SPECIMEN Ordering Facility: [facility] Address: [address] [place] [address] Performed By: #### 5 7021-8 #### [facility] CLIA [id number] [address] [place] [address] 11154 MCHC (RBC) [Mass/Vol] 31.4 g/dL Normal 30.5-36.0 [facility] Comment on above: Order Comment: Speci men Type: BLOOD SPECIMEN Ordering Facility: [facility] Address: [address] [place] [address]158 Performed By: #### 5 7021-8 #### [facility] CLIA [id number] [address] [place] [address] 65518 MCV (RBC) [Entitic vol] 85.0 fL Normal 80.0-100.0 [facility] Comment on above: Order Comment: Speci men Type: BLOOD SPECIMEN Ordering Facility: [facility] Address: [address] [place] [address] 59565 Performed By: #### 5 7021-8 #### [facility] CLIA [id number] [address] [place] [address] 88260 Monocytes (Bld) [#/Vol] 0.35 10*3/uL Normal <0.87 [facility] Comment on above: Order Comment: Speci men Type: BLOOD SPECIMEN Ordering Facility: [facility] Address: [address] [place] [address], [place] [address] Performed By: #### 5 7021-8 #### [facility] CLIA [id number] [address] [place] [address] 93208 Monocytes/100 WBC (Bld) 5.9 % Normal [facility] Comment on above: Order Comment: Speci men Type: BLOOD SPECIMEN Ordering Facility: [facility] Address: [address] [place], [place] [address] Performed By: #### 5 7021-8 #### [facility] CLIA [id number] [address] [place] [address] 44739 Neutrophils (Bld) [#/Vol] 4.46 10*3/uL Normal 1.45-7.50 [facility] Comment on above: Order Comment: Speci men Type: BLOOD SPECIMEN Ordering Facility: [facility] Address: [address] [place] [address] Performed By: #### 5 7021-8 #### [facility] CLIA [id number] [address] [place] [address] 80951 Neutrophils/100 WBC (Bld) 75.0 % Normal [facility] Comment on above: Order Comment: Speci men Type: BLOOD SPECIMEN Ordering Facility: [facility] Address: [address] [place] [address] Performed By: #### 5 7021-8 #### [facility] CLIA [id number] [address] [place] [address] 39868 Nucleated RBC (Bld) [#/Vol] 10*3/uL Normal <0.01 [facility] Comment on above: Order Comment: Speci men Type: BLOOD SPECIMEN Ordering Facility: [facility] Address: [address] [place], [place] [address] Performed By: #### 5 7021-8 #### [facility] CLIA [id number] [address] [place] [address] 46055 Nucleated RBC/100 WBC (Bld) [Ratio] 0.0 /100 WBC Normal [facility] Comment on above: Order Comment: Speci men Type: BLOOD SPECIMEN Ordering Facility: [facility] Address: [address] [place] [address]3977 Performed By: #### 5 7021-8 #### [facility] CLIA [id number] [address] [place] [address] 08539 Platelet mean volume (Bld) [Entitic vol] 11.9 fL Normal 9.0-12.7 [facility] Comment on above: Order Comment: Speci men Type: BLOOD SPECIMEN Ordering Facility: [facility] Address: [address] [place] [address]12 Performed By: #### 5 7021-8 #### [facility] CLIA [id number] [address] [place] [address] 75136 Platelets (Bld) [#/Vol] 140 10*3/uL Low 150-400 [facility] Comment on above: Order Comment: Speci men Type: BLOOD SPECIMEN Ordering Facility: [facility] Address: [address] [place] [address]691 Performed By: #### 5 7021-8 #### [facility] CLIA [id number] [address] [place] [address] 39715 RBC (Bld) [#/Vol] 5.13 10*6/uL Normal 3.90-5.20 [facility] Comment on above: Order Comment: Speci men Type: BLOOD SPECIMEN Ordering Facility: [facility] Address: [address] [place] [address] Performed By: #### 5 7021-8 #### [facility] CLIA [id number] [address] [place] [address] 02005 WBC (Bld) [#/Vol] 5.95 10*3/uL Normal 3.70-11.00 [facility] Comment on above: Order Comment: Speci men Type: BLOOD SPECIMEN Ordering Facility: [facility] Address: [address] [place] [address] 81562 Performed By: #### 5 7021-8 #### [facility] CLIA [id number] [address] [place] [address] 21561 CNOVSPon 06-23-2023 CNOVSP Visit (SP) Office ([place]) RENETTA BARBOSA ([id number]) 1960 F Date Time Provider Department 06/23/23 2:00 PM ANDRE FUNES During your visit today, we recorded the following information about you: Temperature Pulse Respiration Blood pressure 97.6 degrees 107/minute 18/minute 149/93 Weight Height 91.1 kg 1.575 m Andre Funes MD 06/26/2023 1:35 PM Signed NAME: Renetta Barbosa CLINIC NO.: [id number] DATE OF SERVICE: June 23, 2023 [facility] Some elements in this clinic note that are critical to medical decision making have been carefully reviewed and included from a prior clinic note dated: June 25, 2022 ([place]) Referring Provider: Shakira Higgins CNP Additional Clinicians involved in Renettamian Barbosa's care: Boris Miguel, Leonardo Sung, Benjamin Del Toro CC: thrombocytopenia ASSESSMENT: This is a 63 year old woman with thrombocytopenia that is most likely caused by nonalcoholic steatohepatitis with resultant hypersplenism and possibly cirrhosis. Her platelet counts have been stable for many years but seem to be declining just a little bit on recent laboratories. Recheck today indicates that she is back to her stable baseline near the 130s. Outside imaging demonstrates cirrhotic liver with splenomegaly and multiple accessory spleens. Needs HCC screening PLAN: Need US results from [facility] from last week. Recommend alternating follow up and evaluation with her PCP. Will need CBC, CMP, Iron studies, AFP and US Liver q 6 months I will see her for the same in 12 months Consider IV iron in future if she becomes anemic - did not tolerate oral iron RTC in 12 months labs same day. Include AFP US Liver prior to return - HPI: CASE HISTORY: Reverse Chronological Order 06/10/2022 - US RUQ: The liver is enlarged measuring 23cm. There is heterogeneity of echotexture of the liver along with slight nodularity of the liver surface suggesting diffuse hepatocellular disease such and cirrhosis. No discrete masses were noted. Gallbladder is absent. The remainder the right upper quadrant was unremarkable. US Spleen: Spleen is slightly enlarged measuring 12 x 13.2 x 5.3cm. no masses noted. 11/25/2021 - US RUQ: Slightly nodular liver margins suggestive of cirrhosis. No free fluid. 10/10/2020 - hemorrhoidectomy 07/29/2020 - her platelet count dropped little bit further to 116 08/22/2018 - US Hepatic Echogram: Increased hepatic echogenicity suggesting hepatocellular disease. (Previous US Hepatic- 07/08/2018, 12/21/2017, 11/30/2016, 08/16/2014 results scanned) 04/20/2017 - CT Abdomen: Configuration of liver suggests cirrhosis. No focal hepatic lesion identified. Splenomegaly with multiple accessory spleens. Nonspecific periportal and celiac adenopathy appears slightly more prominent than in 2013. Status post cholecystectomy. Small left renal cyst. 2016 - Dx'd with [facility] 09/26/2014 - MRI Abdomen: Hepatosplenomegaly similar to the prior studies.Mild diffuse hepatic steatosis. Fine reticular pattern of hyperdensity on T2 weighted imaging which may be related to early fibrosis.Visualized subcutaneous tissues are unremarkable specifically the abnormality seen on ultrasound is not reproduced. 08/28/2012 - platelets 141 Updated Visit, June 23, 2023: Renetta returns today. She is not anemic, reports no bleeding. Following with GI, she has no pain on the sides of her stomach with Gas-X. Ordered US for 1 year. Updated Visit, June 25, 2022: Renetta returns today in follow up. US in [facility] with enlarged nodular liver no masses. She is using CPAP but doesn't feel too much better quite yet. Labs are stable. Updated Visit, December 17, 2021: Still not tolerant to oral iron due to severe constipation. No evidence of HCC to date. Labs stable. No need to intervene for anemia at this time. Will need ongoing HCC screening. Updated Visit, June 11, 2021: Fatoumata returns 6 months after her last visit. Doing well. Didn't start iron and hgb has improved, so probably ok. All other labs stable. Updated Visit, December 10, 2020: Renetta is 60 years old and returns today for history of chronic thrombocytopenia due to M[facility]. Since her last visit she saw Dr. Sung and completed a hemorrhoidectomy on 10/10/2020. Since then she has been off of her iron in order to avoid constipation. She also had imaging that demonstrated a cirrhotic liver with splenomegaly and multiple accessory spleens. Her laboratories are stable and she remains largely asymptomatic. I explained carefully the relationship between splenomegaly, liver disease and her current laboratory findings of thrombocytopenia. Updated Visit, September 10, 2020: Renetta Barbosa returns for follow-up. Since her last visit there has been no significant medical changes. (more content not included)... Normal [facility] Comprehensive metabolic 2000 panelon 06-23-2023 Albumin [Mass/Vol] 4.5 g/dL Normal 3.9-4.9 [facility] Comment on above: Order Comment: Kevin quintero Type: BLOOD SPECIMEN Ordering Facility: [facility] Address: [address] [place] [address] Performed By: #### 2 4323-8 #### [facility] CLIA [id number] [address] [place] [address] ALP [Catalytic activity/Vol] 112 U/L Normal 34-123 [facility] Comment on above: Order Comment: Kevin quintero Type: BLOOD SPECIMEN Ordering Facility: [facility] Address: [address] [place] [address] Performed By: #### 2 4323-8 #### [facility] CLIA [id number] [address] [place] [address] ALT [Catalytic activity/Vol] 29 U/L Normal 7-38 [facility] Comment on above: Order Comment: Speci men Type: BLOOD SPECIMEN Ordering Facility: [facility] Address: [address] [place] [address] Performed By: #### 2 4323-8 #### [facility] CLIA [id number] [address] [place] [address] Anion gap [Moles/Vol] 14 mmol/L Normal 9-18 [facility] Comment on above: Order Comment: Speci men Type: BLOOD SPECIMEN Ordering Facility: [facility] Address: [address] [place] [id number] Performed By: #### 2 4323-8 #### [facility] CLIA [id number] [address] [place] [address] AST [Catalytic activity/Vol] 31 U/L Normal 13-35 [facility] Comment on above: Order Comment: Speci men Type: BLOOD SPECIMEN Ordering Facility: [facility] Address: [address] [place] [id number] Performed By: #### 2 4323-8 #### [facility] CLIA [id number] [address] [place] [address] Bilirubin [Mass/Vol] 0.4 mg/dL Normal 0.2-1.3 [facility] Comment on above: Order Comment: Speci men Type: BLOOD SPECIMEN Ordering Facility: [facility] Address: [address] [place] [id number] Performed By: #### 2 4323-8 #### [facility] CLIA [id number] [address] [place] [address] Calcium [Mass/Vol] 9.8 mg/dL Normal 8.5-10.2 [facility] Comment on above: Order Comment: Speci men Type: BLOOD SPECIMEN Ordering Facility: [facility] Address: [address] [place] [phone] Performed By: #### 2 4323-8 #### [facility] CLIA [id number] [address] [place] [address] Chloride [Moles/Vol] 100 mmol/L Normal 97-105 [facility] Comment on above: Order Comment: Speci men Type: BLOOD SPECIMEN Ordering Facility: [facility] Address: [address] [place] [address] Performed By: #### 2 4323-8 #### [facility] CLIA [id number] [address] [place] [address] CO2 [Moles/Vol] 19 mmol/L Low 22-30 [facility] Comment on above: Order Comment: Speci men Type: BLOOD SPECIMEN Ordering Facility: [facility] Address: [address] [place] [address] Performed By: #### 2 4323-8 #### [facility] CLIA [id number] [address] [place] [address] 45051 Creatinine [Mass/Vol] 0.72 mg/dL Normal 0.58-0.96 [facility] Comment on above: Order Comment: Speci men Type: BLOOD SPECIMEN Ordering Facility: [facility] Address: [address] [place] [address] Performed By: #### 2 4323-8 #### [facility] CLIA [id number] [address] [place] [address] 12362 Creatinine and Glomerular filtration rate.predicted panel (S/P/Bld) 94 mL/min/1.73m??? Normal >=60 [facility] Comment on above: Order Comment: Speci men Type: BLOOD SPECIMEN Ordering Facility: [facility] Address: [address] [place] [address] Result Comment: Alisha mated Glomerular Filtration Rate (eGFR) is calculated using the 2020 CKD-EPI creatinine equation. This equation utilizes serum creatinine, sex, and age as parameters. The creatinine assay has traceable calibration to isotope dilution-mass spectrometry. Refer to KDIGO guidelines for clinical interpretation. In patients with unstable renal function, e.g. those with acute kidney injury, the eGFR may not accurately reflect actual GFR. Performed By: #### 2 4323-8 #### [facility] CLIA [id number] [address] [place] [address] 53432 Glucose [Mass/Vol] 316 mg/dL High 74-99 [facility] Comment on above: Order Comment: Speci men Type: BLOOD SPECIMEN Ordering Facility: [facility] Address: [address] [place] [address] 14902 Result Comment: The [place] Diabetes Association (ADA) provides guidance for cutoff values for fasting glucose and random glucose. The ADA defines fasting as no caloric intake for at least 8 hours. Fasting plasma glucose results between 100 to 125 mg/dL indicate increased risk for diabetes (prediabetes). Fasting plasma glucose results greater than or equal to 126 mg/dL meet the criteria for diagnosis of diabetes. In the absence of unequivocal hyperglycemia, results should be confirmed by repeat testing. In a patient with classic symptoms of hyperglycemia or hyperglycemic crisis, random plasma glucose results greater than or equal to 200 mg/dL meet the criteria for diagnosis of diabetes. Reference: Standards of Medical Care in Diabetes 2016, [place] [employer] Association. Diabetes Care. 2016.39(Suppl 1). Performed By: #### 2 4323-8 #### [facility] CLIA [id number] [address] [place] [address] 99408 Potassium [Moles/Vol] 3.9 mmol/L Normal 3.7-5.1 [facility] Comment on above: Order Comment: Napoleoni men Type: BLOOD SPECIMEN Ordering Facility: [facility] Address: [address] [place] [address]45 Performed By: #### 2 4323-8 #### [facility] CLIA [id number] [address] [place] [address] 53062 Protein [Mass/Vol] 7.6 g/dL Normal 6.3-8.0 [facility] Comment on above: Order Comment: Speci men Type: BLOOD SPECIMEN Ordering Facility: [facility] Address: [address] [place] [address]996 Performed By: #### 2 4323-8 #### [facility] CLIA [id number] [address] [place] [address] 73320 Sodium [Moles/Vol] 133 mmol/L Low 136-144 [facility] Comment on above: Order Comment: Speci men Type: BLOOD SPECIMEN Ordering Facility: [facility] Address: [address] [place] [address] Performed By: #### 2 4323-8 #### [facility] CLIA [id number] [address] [place] [address] 62512 Urea nitrogen [Mass/Vol] 14 mg/dL Normal 7-21 [facility] Comment on above: Order Comment: Speci men Type: BLOOD SPECIMEN Ordering Facility: [facility] Address: [address] [place] [address] Performed By: #### 2 4323-8 #### [facility] CLIA [id number] [address] [place] [address] 87228 Ferritin SerPl-mCncon 2023 Ferritin [Mass/Vol] 20.1 ng/mL Normal 14.7-205.1 [facility] Comment on above: Order Comment: Speci men Type: BLOOD SPECIMEN Ordering Facility: [facility] Address: [address] [place] [address] Performed By: #### 5 0190-8, 2132-9, 2276-4, 2284-8 #### [facility] CLIA [id number] [address] [place] [address] [place] Folate SerPl-mCncon 06-23-19 24 Folate [Mass/Vol] 11.2 ng/mL Normal >4.7 [facility] Comment on above: Order Comment: Speci men Type: BLOOD SPECIMEN Ordering Facility: [facility] Address: [address] [place] [address] Performed By: #### 5 0190-8, 2132-9, 2276-4, 2284-8 #### [facility] CLIA [id number] [address] [place] [address] [place] Iron and Iron binding capaci ty panelon 06-23-2023 Iron [Mass/Vol] 96 ug/dL Normal 41-186 [facility] Comment on above: Order Comment: Speci men Type: BLOOD SPECIMEN Ordering Facility: [facility] Address: [address] [place], [place] [address] Performed By: #### 5 0190-8, 9, 2275-08, 2283-12 #### [facility] CLIA [id number] [address] [place], [place] [address] [place] Iron binding capacity [Mass/Vol] 434 ug/dL High 232-386 [facility] Comment on above: Order Comment: Speci men Type: BLOOD SPECIMEN Ordering Facility: [facility] Address: [address] [place], [place] [address] Performed By: #### 5 0190-8, 9, 2275-08, 2283-12 #### [facility] CLIA [id number] [address] [place], [place] [address] [place] Iron/TIBC [Molar ratio] 22.1 % Normal 15.0-57.0 [facility] Comment on above: Order Comment: Speci men Type: BLOOD SPECIMEN Ordering Facility: [facility] Address: [address] [place], [place] [address] Performed By: #### 5 0190-8, 9, 2275-08, 2283-12 #### [facility] CLIA [id number] [address] [place] [address] [place] Vit B12 [facility] 06-23-2 024 Cobalamin (Vitamin B12) [Mass/Vol] 586 pg/mL Normal 232-1245 [facility] Comment on above: Order Comment: Speci men Type: BLOOD SPECIMEN Ordering Facility: [facility] Address: [address] [place], [place] [address] Performed By: #### 5 0190-8, 9, 2275-08, 2283-12 #### [facility] CLIA [id number] [address] [place], [place] [address] [place] Office Visiton 06-21-2023 Follow-up visit [id number] Renetta Barbosa 1960 F Date Provider Department Center 06/21/2023 Jose6-MAHAMED VILLELA [facility] Family History Problem Relation Age of Onset Diabetes Mother Lung cancer Father Breast cancer Maternal Grandmother Family Status - Relation Status Age at Mother Father Maternal Grandmother Level of Service:23079 [place] OFFICE/OUTPATIENT NEW MODERATE MDM 45 MINUTES Normal [facility] Lab Reportson 05-04-2023 Lab Reports [id number] Normal [facility] Physician Referralon 023 Physician Referral [id number] Normal [facility] Screenson 05-04-2023 Screens [id number] 20 [id number] Normal [facility] Patient Educationon 05-03-20 23 Patient Education Obstetrics and Gynecology Overactive Bladder, Adult Overactive bladder is a condition in which a person has a sudden and frequent need to urinate. A person might also leak urine if he or she cannot get to the bathroom fast enough (urinary incontinence). Sometimes, symptoms can interfere with work or social activities. What are the causes? Overactive bladder is associated with poor nerve signals between your bladder and your brain. Your bladder may get the signal to empty before it is full. You may also have very sensitive muscles that make your bladder squeeze too soon. This condition may also be caused by other factors, such as: ? Medical conditions: ? Urinary tract infection. ? Infection of nearby tissues. ? Prostate enlargement. ? Bladder stones, inflammation, or tumors. ? Diabetes. ? Muscle or nerve weakness, especially from these conditions: ? A spinal cord injury. ? Stroke. ? Multiple sclerosis. ? Parkinson's disease. ? Other causes: ? Surgery on the uterus or urethra. ? Drinking too much caffeine or alcohol. ? Certain medicines, especially those that eliminate extra fluid in the body (diuretics). ? Constipation. What increases the risk? You may be at greater risk for overactive bladder if you: ? Are an older adult. ? Smoke. ? Are going through menopause. ? Have prostate problems. ? Have a neurological disease, such as stroke, dementia, Parkinson's disease, or multiple sclerosis (MS). ? Eat or drink alcohol, spicy food, caffeine, and other things that irritate the bladder. ? Are overweight or obese. What are the signs or symptoms? Symptoms of this condition include a sudden, strong urge to urinate. Other symptoms include: ? Leaking urine. ? Urinating 8 or more times a day. ? Waking up to urinate 2 or more times overnight. How is this diagnosed? This condition may be diagnosed based on: ? Your symptoms and medical history. ? A physical exam. ? Blood or urine tests to check for possible causes, such as infection. You may also need to see a health care provider who specializes in urinary tract problems. This is called a urologist. How is this treated? Treatment for overactive bladder depends on the cause of your condition and whether it is mild or severe. Treatment may include: ? Bladder training, such as: ? Learning to control the urge to urinate by following a schedule to urinate at regular intervals. ? Doing Kegel exercises to strengthen the pelvic floor muscles that support your bladder. ? Special devices, such as: ? Biofeedback. This uses sensors to help you become aware of your body's signals. ? Electrical stimulation. This uses electrodes placed inside the body (implanted) or outside the body. These electrodes send gentle pulses of electricity to strengthen the nerves or muscles that control the bladder. ? Women may use a plastic device, called a pessary, that fits into the vagina and supports the bladder. ? Medicines, such as: ? Antibiotics to treat bladder infection. ? Antispasmodics to stop the bladder from releasing urine at the wrong time. ? Tricyclic antidepressants to relax bladder muscles. ? Injections of botulinum toxin type A directly into the bladder tissue to relax bladder muscles. ? Surgery, such as: ? A device may be implanted to help manage the nerve signals that control urination. ? An electrode may be implanted to stimulate electrical signals in the bladder. ? A procedure may be done to change the shape of the bladder. This is done only in very severe cases. Follow these instructions at home: Eating and drinking ? Make diet or lifestyle changes recommended by your health care provider. These may include: ? Drinking fluids throughout the day and not only with meals. ? Cutting down on caffeine or alcohol. ? Eating a healthy and balanced diet to prevent constipation. This may include: ? Choosing foods that are high in fiber, such as beans, whole grains, and fresh fruits and vegetables. ? Limiting foods that are high in fat and processed sugars, such as fried and sweet foods. Lifestyle ? Lose weight if needed. ? Do not use any products that contain nicotine or tobacco. These include cigarettes, chewing tobacco, and vaping devices, such as e-cigarettes. If you need help quitting, ask your health care provider. General instructions ? Take [id number] and prescription medicines only as told by your health care provider. ? If you were prescribed an antibiotic medicine, take it as told by your health care provider. Do not stop taking the antibiotic even if you start to feel better. ? Use any implants or pessary as told by your health care provider. ? If needed, wear pads to absorb urine leakage. ? Keep a log to track how much and when you drink, and when you need to urinate. This will help your health care provider monitor yo (more content not included)... Normal [facility] CT LUNG CANCER SCREENINGon 0 10-20-2022 CT LUNG CANCER SCREENING EXAMINATION: CT LUNG CANCER SCREENING HISTORY: Tobacco dependence caused by cigarettes COMPARISON: CT chest 07/22/2021 TECHNIQUE: Axial, Coronal, and Sagittal images were created without the administration of IV contrast material. Dose reduction techniques were achieved by using automated exposure control and/or adjustment of mA and/or kV according to patient size and/or use of iterative reconstruction technique. FINDINGS: LUNGS: Stable 5 mm nodule within the right lower lobe superior segment. Mild/moderate atelectasis within base of lingula; less than previously seen. PLEURA: No mass, effusion, or pneumothorax. VASCULATURE: No abnormality. CARRIE: No mass or pathologic adenopathy. MEDIASTINUM: No mass or pathologic adenopathy. CARDIAC: No enlargement, pericardial thickening, or significant calcification. AORTA: No aneurysm or dissection. CHEST WALL: No mass or axillary adenopathy BONES: No bone lesion or fracture. LIMITED ABDOMEN: No suspicious findings. Limited images of the upper abdomen. OTHER: Negative. IMPRESSION: 1. Lung-RADS 2- Benign Appearance or Behavior. Nodules with a very low likelihood of becoming a clinically active cancer due to size or lack of growth. Follow-up CT Chest in 1 year. Electronically authenticated by: LEONEL MATA Date: 2022-10-20 08:02 Normal [facility] CBC AUTO DIFFon 10-19-2022 BASO # 0.0 103/ul Normal 0.0-0.1 [facility] Comment on above: Performed By: #### C BC #### [facility] [address] [address] [address] Blanquita Farris Basophils/100 WBC (Bld) 0.4 % Normal 0.2-2.0 [facility] Comment on above: Performed By: #### C BC #### [facility] [address] [address] [address] Blanquita Farris EO # 0.1 103/ul Normal 0.0-0.7 [facility] Comment on above: Performed By: #### C BC #### [facility] [address] [place] [address] Dr. Blanquita Farris Eosinophils/100 WBC (Bld) 1.5 % Normal 0.9-7.0 [facility] Comment on above: Performed By: #### C BC #### [facility] [address] [address] [address] Balnquita Farris Erythrocyte distribution width (RBC) [Ratio] 15.3 % Critically high 11.0-15.0 [facility] Comment on above: Performed By: #### C BC #### [facility] [address] [address] [address] Blanquita Farris Hematocrit (Bld) [Volume fraction] 42.7 % Normal 36.0-48.0 [facility] Comment on above: Performed By: #### C BC #### [facility] [address] [address] [address] Blanquita Farris Hemoglobin (Bld) [Mass/Vol] 13.8 g/dL Normal 12.0-16.0 [facility] Comment on above: Performed By: #### C BC #### [facility] [address] [address] [address] Blanquita Farris IG # 0.04 10e3/ul Critically high 0.00-0.03 [facility] Comment on above: Performed By: #### C BC #### [facility] [address] [place] [address] Dr. Blanquita Farris IG % 0.6 % Critically high 0.0-0.5 [facility] Comment on above: Performed By: #### C BC #### [facility] [address] [place] [address] Dr. Blanquita Farris LYMPH # 1.2 103/ul Normal 1.2-3.8 [facility] Comment on above: Performed By: #### C BC #### [facility] [address] [place] [address] Dr. Blanquita Farris Lymphocytes/100 WBC (Bld) 18.0 % Critically low 20.5-60.0 [facility] Comment on above: Performed By: #### C BC #### [facility] [address] [place] [address] Dr. Blanquita Farris MANUAL DIFF REQ NO Normal [facility] Comment on above: Performed By: #### C BC #### [facility] [address] [place] [address] Dr. Blanquita Farris MCH (RBC) [Entitic mass] 26.8 pg Normal 26.7-34.0 [facility] Comment on above: Performed By: #### C BC #### [facility] [address] [place] [address] Dr. Blanquita Farris MCHC (RBC) [Mass/Vol] 32.3 g/dL Normal 29.9-35.2 [facility] Comment on above: Performed By: #### C BC #### [facility] [address] [place] [address] Dr. Blanquita Farris MCV (RBC) [Entitic vol] 83.1 fL Normal 81.0-99.0 [facility] Comment on above: Performed By: #### C BC #### [facility] [address] [place] [address] Dr. Blanquita Farris MONO # 0.4 103/ul Normal 0.3-0.8 [facility] Comment on above: Performed By: #### C BC #### [facility] [address] [place] [address] Dr. Blanquita Farris Monocytes/100 WBC (Bld) 5.4 % Normal 1.7-12.0 [facility] Comment on above: Performed By: #### C BC #### [facility] [address] [place] [address] Dr. Blanquita Farris NEUT # 5.0 103/ul Normal 1.4-6.5 [facility] Comment on above: Performed By: #### C BC #### [facility] [address] [place] [address] Dr. Blanquita Farris Neutrophils/100 WBC (Bld) 74.1 % Normal 43.0-75.0 [facility] Comment on above: Performed By: #### C BC #### [facility] [address] [place] [address] Dr. Blanquita Farris Platelet mean volume (Bld) [Entitic vol] 10.2 fL Normal 9.5-13.5 [facility] Comment on above: Performed By: #### C BC #### [facility] [address] [place] [address] Dr. Blanquita Farris PLT 180 103/ul Normal 150-450 [facility] Comment on above: Performed By: #### C BC #### [facility] [address] [place] [address] Dr. Blanquita Farris RBC 5.14 106/ul Normal 4.20-5.40 [facility] Comment on above: Performed By: #### C BC #### [facility] [address] [place] [address] Dr. Blanquita Farris WBC 6.8 103/ul Normal 4.0-11.0 [facility] Comment on above: Performed By: #### C BC #### [facility] [address] [place] [address] Dr. Blanquita Farris CPKon 10-19-2022 CK [Catalytic activity/Vol] 68 U/L Normal 26-192 [facility] Comment on above: Performed By: #### C MP, CK, TSH #### [facility] [address] [place], [place] [address] Dr. Blanquita Farris MG MAMM SCREEN 3D SANTIAGO CADon 10-19-2022 MG MAMM SCREEN 3D SANTIAGO CAD Patient: RENETTA BARBOSA Exam Date: 10/19/2022 : 1960 Gender:F Ordering : [facility] Admission #: [id number] Family : DR LUL DUTTON Order #: [id number] CLICK HERE TO VIEW EXAM RADIOLOGY REPORT PROCEDURE: MAMMOGRAM SCREENING 3D BILATERAL CAD COMPARISON: MG MAMM SCREEN SANTIAGO W CAD, 07/18/2020. MG MAMM SCREEN 3D SANTIAGO CAD, 07/21/2021. INDICATIONS: Screening mammography Calculator Name NCI Breast Cancer Risk Assessment Tool 5 Year Breast Cancer Risk 1.50% Lifetime Breast Cancer Risk 6.80% Personal Breast Cancer No Personal Ovarian Cancer No Treatments None Family Cancers Grandmother-maternal with breast cancer at age 80. LOCATION: [facility] BREAST COMPOSITION: Scattered areas fibroglandular density. FINDINGS: DIAGNOSTIC CATEGORY 1--NEGATIVE. NO CHANGE FROM COMPARISON ASSESSMENT. Scattered benign-appearing lymph nodes are present. RIGHT BREAST: No significant suspicious finding. LEFT BREAST: No significant suspicious finding. RECOMMENDATIONS: ROUTINE MAMMOGRAM AND CLINICAL EVALUATION IN 12 MONTHS. PLEASE NOTE: A NORMAL MAMMOGRAM DOES NOT EXCLUDE THE POSSIBILITY OF BREAST CANCER. A CLINICALLY SUSPICIOUS PALPABLE LUMP SHOULD BE BIOPSIED. Dictated by: Kailee Pacheco MD on 10/19/2022 at 13:48 Approved by: Kailee Pacheco MD on 10/19/2022 at 13:50 Normal [facility] PROF 14(COMP METB)on 023 Albumin [Mass/Vol] 3.7 g/dL Normal 3.4-5.0 [facility] Comment on above: Performed By: #### C MP, CK, TSH #### [facility] [address] [place], [place] [address] Dr. Blanquita Farris Albumin/Globulin [Mass ratio] 0.8 {ratio} Normal [facility] Comment on above: Performed By: #### C MP, CK, TSH #### [facility] [address] [place], [place] [address] Dr. Blanquita Farris ALP [Catalytic activity/Vol] 120 U/L Critically high 46-116 [facility] Comment on above: Performed By: #### C MP, CK, TSH #### [facility] [address] [address] [address] Blanquita Farris ALT [Catalytic activity/Vol] 31 U/L Normal 14-59 [facility] Comment on above: Performed By: #### C MP, CK, TSH #### [facility] [address] [address] [address] Blanquita Farris Anion gap [Moles/Vol] 14.2 mmol/L Normal [facility] Comment on above: Performed By: #### C MP, CK, TSH #### [facility] [address] [address] [address] Blanquita Farris AST [Catalytic activity/Vol] 19 U/L Normal 15-37 [facility] Comment on above: Performed By: #### C MP, CK, TSH #### [facility] [address] [place] [address] Dr. Blanquita Farris Bilirubin [Mass/Vol] 0.3 mg/dL Normal 0.2-1.0 [facility] Comment on above: Performed By: #### C MP, CK, TSH #### [facility] [address] [place] [address] Dr. Blanquita Farris Calcium [Mass/Vol] 9.4 mg/dL Normal 8.5-10.1 [facility] Comment on above: Performed By: #### C MP, CK, TSH #### [facility] [address] [address] [address] Blanquita Farris Chloride [Moles/Vol] 101 mmol/L Normal 98-107 [facility] Comment on above: Performed By: #### C MP, CK, TSH #### [facility] [address] [address] [address] Blanquita Farris CO2 [Moles/Vol] 28.4 mmol/L Normal 21.0-32.0 [facility] Comment on above: Performed By: #### C MP, CK, TSH #### [facility] [address] [place] [address] Dr. Blanquita Farirs Creatinine [Mass/Vol] 1.04 mg/dL Critically high 0.55-1.02 [facility] Comment on above: Performed By: #### C MP, CK, TSH #### [facility] [address] [address] [address] Blanquita Farris EGFR-AF HAITIAN >60 Normal >=60 [facility] Comment on above: Performed By: #### C MP, CK, TSH #### [facility] [address] [address] [address] Blanquita Farris EGFR-NON AF HAITIAN 54 mL/min/1.73m2 Critically low >=60 [facility] Comment on above: Performed By: #### C MP, CK, TSH #### [facility] [address] [place] [address] Dr. Blanquita Farris Globulin (S) [Mass/Vol] 4.6 g/dL Normal [facility] Comment on above: Performed By: #### C MP, CK, TSH #### [facility] [address] [address] [address] Blanquita Farris Glucose [Mass/Vol] 194 mg/dL Critically high 74-106 [facility] Comment on above: Performed By: #### C MP, CK, TSH #### [facility] [address] [address] [address] Blanquita Farris Potassium [Moles/Vol] 3.6 mmol/L Normal 3.5-5.1 [facility] Comment on above: Performed By: #### C MP, CK, TSH #### [facility] [address] [place] [address] Dr. Blanquita Farris Protein [Mass/Vol] 8.3 g/dL Critically high 6.4-8.2 [facility] Comment on above: Performed By: #### C MP, CK, TSH #### [facility] [address] [place] [address] Dr. Blanquita Farris Sodium [Moles/Vol] 140 mmol/L Normal 136-145 [facility] Comment on above: Performed By: #### C MP, CK, TSH #### [facility] [address] [address] [address] Blanquita Farris Urea nitrogen [Mass/Vol] 13.0 mg/dL Normal 7.0-18.0 [facility] Comment on above: Performed By: #### C MP, CK, TSH #### [facility] [address] [place] [address] Dr. Blanquita Farris Urea nitrogen/Creatinine [Mass ratio] 12.5 mg/mg Normal [facility] Comment on above: Performed By: #### C MP, CK, TSH #### [facility] [address] [place] [address] Dr. Blanquita Farris TSHon 10-19-2022 TSH 0.292 uIU/mL Critically low 0.358-3.740 [facility] Comment on above: Performed By: #### C MP, CK, TSH #### [facility] [address] [place] [address] Dr. Blanquita Farris VITAMIN B12on 10-19-2022 Cobalamin (Vitamin B12) [Mass/Vol] 912.0 pg/mL Normal 193.0-986.0 [facility] Comment on above: Performed By: #### V ITB12 #### [facility] [address] [place] [address] Dr. Blanquita Farris US SINGLE QUAD RT UPPERon US SINGLE QUAD RT UPPER EXAM: US SINGLE QUAD RT UPPER HISTORY: . Acquired thrombocytopenia . COMPARISON: 11/25/2021 TECHNIQUE: Grayscale and color imaging was performed FINDINGS: The pancreas appears normal. Scanning of the liver demonstrates a liver to be enlarged. The liver measures 23 cm. There is heterogeneity of echotexture of the liver along with slight nodularity of the liver surface. Grossly no masses are noted. Color-flow is noted in the portal and hepatic veins. Common bile duct is normal measuring 3 mm. The gallbladder is absent. Right kidney measures 11 x 5.5 x 4.9 cm. Color-flow is noted. No solid renal cortical masses or hydronephrosis is noted. No fluid is noted in the right upper quadrant. IMPRESSION: 1. The liver is enlarged measuring 23 cm. There is heterogeneity of echotexture of the liver along with slight nodularity of the liver surface suggesting diffuse hepatocellular disease such as cirrhosis. No discrete masses were noted. 2. Gallbladder is absent. 3. The remainder the right upper quadrant was unremarkable. Electronically authenticated by: KAILEE YANG Date: 2022-06-10 11:46 Normal [facility] US SPLEENon 06-10-2022 US SPLEEN EXAM: US SPLEEN HISTORY: . Acquired thrombocytopenia . COMPARISON: None. TECHNIQUE: Grayscale and color imaging was performed. Urographic findings: Scanning of the left upper quadrant demonstrates the spleen to be enlarged measuring 12 x 13.2 x 5.3 cm. Color-flow is noted. No masses are noted. No fluid is noted in the left upper quadrant. Impression: Spleen is slightly enlarged measuring 12 x 13.2 x 5.3 cm. No masses noted. Electronically authenticated by: KAILEE YANG Date: 2022-06-10 12:04 Normal [facility] LACTOFERRIN FECAL QUANTon Lactoferrin, Fecal, Quant. 1.96 ug/mL(g) Normal 0.00-7.24 [facility] Comment on above: Result Comment: . Baseline (normal) 0.00 - 7.24 Elevated >7.24 . An elevated result is indicative of the presence of fecal lactoferrin, a marker of intestinal inflammation. A normal result does not exclude the presence of intestinal inflammation. The test can be used as an in vitro diagnostic aid to distinguish patients with active inflammatory bowel disease (IBD) from those with non-inflammatory irritable bowel syndrome (IBS). Performed By: #### I NSULIN #### [facility] [address] [address] [address] Blanquita Farris CALPROTECTIN, FECALon 2021 Calprotectin, Fecal 33 ug/g Normal 0-120 [facility] Comment on above: Result Comment: Conc entration Interpretation Follow-Up <16 - 50 ug/g Normal None >50 -120 ug/g Borderline Re-evaluate in 4-6 weeks >120 ug/g Abnormal Repeat as clinically indicated Performed By: #### C ALPOO #### [facility] [address] [address] [address] Blanquita Farris PANCREATIC ELASTASE FECALon 03-20-2022 Pancreatic Elastase, Fecal 364 ug Elast./g Normal >200 [facility] Comment on above: Result Comment: Korina re Pancreatic Insufficiency: <100 Moderate Pancreatic Insufficiency: 100 - 200 Normal: >200 Performed By: #### C BC #### [facility] [address] [place] [address] Dr. Blanquita Farris BOWEL DISORDERS EVALUATION R ULE-OUT CASCon 03-18-2022 Atypical pANCA Negative Normal Negative [facility] Comment on above: Performed By: #### C BC #### [facility] [address] [place] [address] Dr. Blanquita Farris Note: Comment Normal [facility] Comment on above: Result Comment: Sugg estive of Crohn's disease. Subsequent testing with the Crohn's Disease Prognostic Profile (846978) that includes antiglycan antibodies AMCA, ALCA, ACCA, and Xochitl may aid in the differentiation of clinical forms of CD and prognosis of disease progression. Performed By: #### C BC #### [facility] [address] [place] [address] Dr. Blanquita Farris Saccharomyces Cer. IgG 28.0 Units Critically high 0.0-24.9 [facility] Comment on above: Result Comment: Nega tive <20.0 Equivocal 20.1 - 24.9 Positive >or= 25.0 Performed By: #### C BC #### [facility] [address] [place] [address] Dr. Blanquita Farris tTG/DGP SCR Negative Normal Negative [facility] Comment on above: Performed By: #### C BC #### [facility] [address] [place] [address] Dr. Blanquita Farris INSULINon 03-16-2022 Insulin 43.0 uIU/mL Critically high 2.6-24.9 [facility] Comment on above: Performed By: #### I NSULIN #### [facility] [address] [place] [address] Dr. Blanquita Farris OCC BLD IMMUNO SCREENon 02-21 OCCULT BLOOD Negative Normal NEGATIVE [facility] Comment on above: Performed By: #### C BC #### [facility] [address] [place] [address] Dr. Blanquita Farris CBC AUTO DIFFon 03-15-2022 BASO # 0.0 103/ul Normal 0.0-0.1 [facility] Comment on above: Performed By: #### C BC #### [facility] [address] [place] [address] Dr. Blanquita Farris Basophils/100 WBC (Bld) 0.7 % Normal 0.2-2.0 [facility] Comment on above: Performed By: #### C BC #### [facility] [address] [place] [address] Dr. Blanquita Farris EO # 0.2 103/ul Normal 0.0-0.7 [facility] Comment on above: Performed By: #### C BC #### [facility] [address] [place] [address] Dr. Blanquita Farris Eosinophils/100 WBC (Bld) 2.7 % Normal 0.9-7.0 [facility] Comment on above: Performed By: #### C BC #### [facility] [address] [place] [address] Dr. Blanquita Farris Erythrocyte distribution width (RBC) [Ratio] 14.8 % Normal 11.0-15.0 [facility] Comment on above: Performed By: #### C BC #### [facility] [address] [place] [address] Dr. Blanquita Farris Hematocrit (Bld) [Volume fraction] 43.4 % Normal 36.0-48.0 [facility] Comment on above: Performed By: #### C BC #### [facility] [address] [place] [address] Dr. Blanquita Farris Hemoglobin (Bld) [Mass/Vol] 14.1 g/dL Normal 12.0-16.0 [facility] Comment on above: Performed By: #### C BC #### [facility] [address] [place] [address] Dr. Blanquita Farris IG # 0.03 10e3/ul Normal 0.00-0.03 [facility] Comment on above: Performed By: #### C BC #### [facility] [address] [place] [address] Dr. Blanquita Farris IG % 0.5 % Normal 0.0-0.5 [facility] Comment on above: Performed By: #### C BC #### [facility] [address] [place] [address] Dr. Blanquita Farris LYMPH # 1.1 103/ul Critically low 1.2-3.8 [facility] Comment on above: Performed By: #### C BC #### [facility] [address] [place] [address] Dr. Blanquita Farris Lymphocytes/100 WBC (Bld) 18.9 % Critically low 20.5-60.0 [facility] Comment on above: Performed By: #### C BC #### [facility] [address] [place] [address] Dr. Blanquita Farris MANUAL DIFF REQ NO Normal [facility] Comment on above: Performed By: #### C BC #### [facility] [address] [place] [address] Dr. Blanquita Farris MCH (RBC) [Entitic mass] 27.9 pg Normal 26.7-34.0 [facility] Comment on above: Performed By: #### C BC #### [facility] [address] [place] [address] Dr. Blanquita Farris MCHC (RBC) [Mass/Vol] 32.5 g/dL Normal 29.9-35.2 [facility] Comment on above: Performed By: #### C BC #### [facility] [address] [place] [address] Dr. Blanquita Farris MCV (RBC) [Entitic vol] 85.8 fL Normal 81.0-99.0 [facility] Comment on above: Performed By: #### C BC #### [facility] [address] [place] [address] Dr. Blanquita Farris MONO # 0.4 103/ul Normal 0.3-0.8 [facility] Comment on above: Performed By: #### C BC #### [facility] [address] [place] [address] Dr. Blanquita Farris Monocytes/100 WBC (Bld) 7.2 % Normal 1.7-12.0 [facility] Comment on above: Performed By: #### C BC #### [facility] [address] [place] [address] Dr. Blanquita Farris NEUT # 4.1 103/ul Normal 1.4-6.5 [facility] Comment on above: Performed By: #### C BC #### [facility] [address] [place] [address] Dr. Blanquita Farris Neutrophils/100 WBC (Bld) 70.0 % Normal 43.0-75.0 [facility] Comment on above: Performed By: #### C BC #### [facility] [facility] [address] [place] [address] Dr. Blanquita Farris Platelet mean volume (Bld) [Entitic vol] 10.4 fL Normal 9.5-13.5 [facility] Comment on above: Performed By: #### C BC #### [facility] [address] [place] [address] Dr. Blanquita Farris PLT 158 103/ul Normal 150-450 [facility] Comment on above: Performed By: #### C BC #### [facility] [address] [place] [address] Dr. Blanquita Farris RBC 5.06 106/ul Normal 4.20-5.40 [facility] Comment on above: Performed By: #### C BC #### [facility] [address] [place] [address] Dr. Blanquita Farris WBC 5.9 103/ul Normal 4.0-11.0 [facility] Comment on above: Performed By: #### C BC #### [facility] [address] [place] [address] Dr. Blanquita Farris FREE THYROXINE INDEX T7on FTI 4.00 Normal 1.30-4.50 [facility] Comment on above: Performed By: #### C BC #### [facility] [address] [place] [address] Dr. Blanquita Farris T3U 31.0 % Normal 30.0-39.0 [facility] Comment on above: Performed By: #### C BC #### [facility] [address] [address] [address] Blanquita Farris T4 [Mass/Vol] 12.90 ug/dL Normal 4.80-13.90 [facility] Comment on above: Performed By: #### C BC #### [facility] [address] [address] [address] Blanquita Farris GLYCOHEMOGLOBIN A1Con 2021 ADA RECOMMENDATION SEE BELOW Normal [facility] Comment on above: Result Comment: ADA RECOMMENDED LIMIT 4.0 - 6.0 ADA THERAPEUTIC TARGET < 7.0 ACTION SUGGESTED > 7.0 Performed By: #### A 1C #### [facility] [address] [address] [address] Blanquita Farris Glucose [Mass/Vol] 146 mg/dL Normal [facility] Comment on above: Performed By: #### A 1C #### [facility] [address] [address] [address] Blanquita Farris HbA1c (Bld) [Mass fraction] 6.7 % Critically high 4.5-6.2 [facility] Comment on above: Performed By: #### A 1C #### [facility] [address] [address] [address] Blanquita Farris IRONon 03-15-2022 Iron [Mass/Vol] 67.0 ug/dL Normal 50.0-170.0 [facility] Comment on above: Performed By: #### I KEON #### [facility] [address] [place] [address] Dr. Blanquita Farris LIPID PROFILEon 03-15-2022 CHOL-HDL RATIO NORM SEE BELOW Normal [facility] Comment on above: Result Comment: 3.3 - 4.4 LOW RISK 4.4 - 7.1 AVERAGE RISK 7.1 - 11.0 MODERATE RISK >11.0 HIGH RISK Performed By: #### C BC #### [facility] [address] [place] [address] Dr. Blanquita Farris Cholesterol [Mass/Vol] 137 mg/dL Normal <=200 [facility] Comment on above: Performed By: #### C BC #### [facility] [address] [address] [address] Blanquita Farris Cholesterol in HDL [Mass/Vol] 52 mg/dL Normal 40-60 [facility] Comment on above: Performed By: #### C BC #### [facility] [address] [place], [place] [address] Dr. Blanquita Farris Cholesterol in LDL [Mass/Vol] 62.0 mg/dL Normal [facility] Comment on above: Performed By: #### C BC #### [facility] [address] [address] [address] Blanquita Farris Cholesterol.total/C holesterol in HDL [Mass ratio] 2.6 {ratio} Normal [facility] Comment on above: Performed By: #### C BC #### [facility] [address] [address] [address] Blanquita Farris HDL NORMAL > or = 60 mg/dl - LO W CARDIOVASCULAR RISK <40 mg/dl - HIGH CARDIOVASCULAR RISK Normal [facility] Comment on above: Performed By: #### C BC #### [facility] [address] [address] [address] Blanquita Farris LDL CALC NORMAL SEE BELOW Normal [facility] Comment on above: Result Comment: <100 mg/dl OPTIMAL 100 - 129 mg/dl NEAR OR ABOVE OPTIMAL 130 - 159 mg/dl BORDERLINE HIGH 160 - 189 mg/dl HIGH >190 mg/dl VERY HIGH Performed By: #### C BC #### [facility] [address] [address] [address] Blanquita Farris Triglyceride [Mass/Vol] 115 mg/dL Normal <=150 [facility] Comment on above: Performed By: #### C BC #### [facility] [address] [address] [address] Blanquita Farris VLDL CALC 23.0 mg/dL Normal [facility] Comment on above: Performed By: #### C BC #### [facility] [address] [address] [address] Blanquita Farris PROF 14(COMP METB)on 10-24-2 022 Albumin [Mass/Vol] 4.1 g/dL Normal 3.4-5.0 [facility] Comment on above: Performed By: #### C BC #### [facility] [address] [place] [address] Dr. Blanquita Farris Albumin/Globulin [Mass ratio] 1.0 {ratio} Normal [facility] Comment on above: Performed By: #### C BC #### [facility] [address] [place] [address] Dr. Blanquita Farris ALP [Catalytic activity/Vol] 94 U/L Normal 46-116 [facility] Comment on above: Performed By: #### C BC #### [facility] [address] [place] [address] Dr. Blanquita Farris ALT [Catalytic activity/Vol] 32 U/L Normal 14-59 [facility] Comment on above: Performed By: #### C BC #### [facility] [address] [place] [address] Dr. Blanquita Farris Anion gap [Moles/Vol] 8.8 mmol/L Normal [facility] Comment on above: Performed By: #### C BC #### [facility] [address] [place] [address] Dr. Blanquita Farris AST [Catalytic activity/Vol] 26 U/L Normal 15-37 [facility] Comment on above: Performed By: #### C BC #### [facility] [address] [place] [address] Dr. Blanquita Farris Bilirubin [Mass/Vol] 0.4 mg/dL Normal 0.2-1.0 [facility] Comment on above: Performed By: #### C BC #### [facility] [address] [place] [address] Dr. Blanquita Farris Calcium [Mass/Vol] 9.0 mg/dL Normal 8.5-10.1 [facility] Comment on above: Performed By: #### C BC #### [facility] [address] [place] [address] Dr. Blanquita Farris Chloride [Moles/Vol] 100 mmol/L Normal 98-107 [facility] Comment on above: Performed By: #### C BC #### [facility] [address] [address] [address] Blanquita Farris CO2 [Moles/Vol] 31.6 mmol/L Normal 21.0-32.0 [facility] Comment on above: Performed By: #### C BC #### [facility] [address] [address] [address] Blanquita Farris Creatinine [Mass/Vol] 0.87 mg/dL Normal 0.55-1.02 [facility] Comment on above: Performed By: #### C BC #### [facility] [address] [address] [address] Blanquita Farris EGFR-AF HAITIAN >60 Normal >=60 [facility] Comment on above: Performed By: #### C BC #### [facility] [address] [place] [address] Dr. Blanquita Farris EGFR-NON AF HAITIAN >60 Normal >=60 [facility] Comment on above: Performed By: #### C BC #### [facility] [address] [place] [address] Dr. Blanquita Farris Globulin (S) [Mass/Vol] 4.0 g/dL Normal [facility] Comment on above: Performed By: #### C BC #### [facility] [address] [place] [address] Dr. Blanquita Farris Glucose [Mass/Vol] 192 mg/dL Critically high 74-106 [facility] Comment on above: Performed By: #### C BC #### [facility] [address] [place] [address] Dr. Blanquita Farris Potassium [Moles/Vol] 3.4 mmol/L Critically low 3.5-5.1 [facility] Comment on above: Performed By: #### C BC #### [facility] [address] [place] [address] Dr. Blanquita Farris Protein [Mass/Vol] 8.1 g/dL Normal 6.4-8.2 [facility] Comment on above: Performed By: #### C BC #### [facility] [address] [address] [address] Blanquita Farris Sodium [Moles/Vol] 137 mmol/L Normal 136-145 [facility] Comment on above: Performed By: #### C BC #### [facility] [address] [place] [address] Dr. Blanquita Farris Urea nitrogen [Mass/Vol] 9.0 mg/dL Normal 7.0-18.0 [facility] Comment on above: Performed By: #### C BC #### [facility] [address] [place] [address] Dr. Blanquita Farris Urea nitrogen/Creatinine [Mass ratio] 10.3 mg/mg Normal [facility] Comment on above: Performed By: #### C BC #### [facility] [address] [place] [address] Dr. Blanquita Farris PROTIMEon 03-15-2022 INR Coag (PPP) [Relative time] 1.15 {INR} Normal [facility] Comment on above: Performed By: #### C BC #### [facility] [address] [place] [address] Dr. Blanquita Farris INR GUIDELINES SEE BELOW Normal [facility] Comment on above: Result Comment: SOLANGE RED INR: 2.0 - 3.0 CONDITIONS NOT LISTED BELOW 2.5 - 3.5 FOR PROSTHETIC HEART VALVE REPLACEMENT 2.5 - 3.5 RECURRENT THROMBOSIS Performed By: #### C BC #### [facility] [address] [place] [address] Dr. Blanquita Farris PT Coag (PPP) [Time] 12.3 s Critically high 9.0-11.6 [facility] Comment on above: Performed By: #### C BC #### [facility] [address] [place] [address] Dr. Blanquita Farris TSHon 03-15-2022 TSH 0.342 uIU/mL Critically low 0.358-3.740 [facility] Comment on above: Performed By: #### C BC #### [facility] [address] [place] [address] Dr. Blanquita Farris Progress Noteson 02-16-2022 Primary Teacher Authentication Interface Message Text EMERGENCY TRIAGE, TREAT AND TRANSPORT (ET3) DOCUMENTATION OF TELEHEALTH VISIT Date / Time: 02/16/2022 / 6:00 AM Name: Renetta Barbosa : 1960 SSN: (Not on file) EMS Agency: [facility] [] Verbal consent obtained [] Implied consent - patient with potential emergency medical condition requiring assessment of capacity to refuse treatment and/or transport VITAL SIGNS: see flowsheet documentation Reason for Telehealth Visit: Chief Complaint Patient presents with Hypoglycemia History of Present Ilness: 62 year old female called EMS and found to have low blood glucose. Reported 40. Given oral glucose and juice by EMS with improvement to 104. Pt feels improved. Additional pertinent PMHx, SocHx, FamHx: DMT Tremors Meds: Humulin Trulicity Metformin Review of Systems: Exam: General: Awake, no distress ENT: normocephalic, Pulmonary: No respiratory distress Cardiovascular: Well perfused Neurologic: Oriented to person, place, time and events. Psychiatric: Appropriate. Good insight and judgement. Medical Decision Making: Pt requesting refusal. Pt is awake and appropriate. Family en route. Pt instructed to eat complex carbs. Ok for refusal since she will be around family. Disposition Supported by Telehealth Assessment: ET3 transport decisions: Refused transport EMS Disposition Reported: Same ET3 Encounter Completed by: Pedro Arechiga MD Normal [facility] [employer] SINGLE QUAD RT [facility] SINGLE QUAD RT UPPER EXAMINATION: US SINGLE QUAD RT UPPER HISTORY: Acquired thrombocytopenia COMPARISON: CT abdomen pelvis 10/09/2020 TECHNIQUE: Transabdominal evaluation of the right upper quadrant. FINDINGS: LIVER: Nodular margins suggestive of cirrhosis. PORTAL VEIN: Duplex Doppler demonstrates normal hepatopetal flow pattern with flow velocity averaging 28 cm/s. GALLBLADDER: Prior cholecystectomy. BILIARY: No abnormal dilation or stones. Common bile duct diameter is within normal limits. PANCREASE: No visible mass, abnormal atrophy, or duct dilation. KIDNEY: No hydronephrosis. No visible mass or stones. Size: 10.5 x 5.4 x 5.5 cm IMPRESSION: 1. Slightly nodular liver margins suggestive of cirrhosis. No free fluid. Electronically authenticated by: LEONEL MATA Date: 2021-11-25 17:56 Normal [facility] 05-17-2021 ACETONE Negative Normal NEGATIVE [facility] Comment on above: Performed By: #### A CETON #### [facility] [address] [place] [address] Dr. Blanquita Farris CBC W MANUAL DIFFon 05-17-20 21 ATYPICAL LYMPH # Normal [facility] Comment on above: Performed By: #### C BCMAN #### [facility] [address] [place] [address] Dr. Blanquita Farris ATYPICAL LYMPH % Normal [facility] Comment on above: Performed By: #### C BCMAN #### [facility] [address] [place] [address] Dr. Blanquita Farris BAND # Normal 0.0-0.3 [facility] Comment on above: Performed By: #### C BCDALI #### [facility] [address] [place] [address] Dr. Blanquita Farris BAND % Normal 0-5 [facility] Comment on above: Performed By: #### C BRIGETTE #### [facility] [address] [place] [address] Dr. Blanquita Farris BASOM # 0.00 103/ul Normal 0.00-0.10 [facility] Comment on above: Performed By: #### C BRIGETTE #### [facility] [address] [place] [address] Dr. Blanquita Farris BASOM % 0.0 % Critically low 0.2-2.0 [facility] Comment on above: Performed By: #### C BCDALI #### [facility] [address] [place] [address] Dr. Blanquita Farris BLAST # Normal [facility] Comment on above: Performed By: #### C BRIGETTE #### [facility] [address] [place] [address] Dr. Blanquita Farris BLAST % Normal [facility] Comment on above: Performed By: #### C BRIGETTE #### [facility] [address] [place] [address] Dr. Blanquita Farris CORRECTED WBC Normal 4.0-11.0 [facility] Comment on above: Performed By: #### C BRIGETTE #### [facility] [address] [address] [address] Blanquita Farris EOS # 0.00 103/ul Normal 0.00-0.70 [facility] Comment on above: Performed By: #### C BRIGETTE #### [facility] [address] [address] [address] Blanquita Farris EOS% 0.0 % Critically low 0.9-7.0 [facility] Comment on above: Performed By: #### C BRIGETTE #### [facility] [address] [address] [address] Blanquita Farris HCT 40.7 % Normal 36.0-48.0 [facility] Comment on above: Performed By: #### C BRIGETTE #### [facility] [address] [place] [address] Dr. Blanquita Farris HGB 12.9 g/dl Normal 12.0-16.0 [facility] Comment on above: Performed By: #### C BRIGETTE #### [facility] [address] [place] [address] Dr. Blanquita Farris LYMPHM # 0.63 103/ul Critically low 1.20-3.80 [facility] Comment on above: Performed By: #### C BRIGETTE #### [facility] [address] [address] [address] Blanquita Farris LYMPHM% 18.0 % Critically low 20.5-60.0 [facility] Comment on above: Performed By: #### C BRIGETTE #### [facility] [address] [address] [address] Blanquita Farris MCH 28.4 pg Normal 26.7-34.0 [facility] Comment on above: Performed By: #### C BRIGETTE #### [facility] [address] [place] [address] Dr. Blanquita Farris MCHC 31.7 g/dl Normal 29.9-35.2 [facility] Comment on above: Performed By: #### C BRIGETTE #### [facility] [address] [place] [address] Dr. Blanquita Farris MCV 89.5 fL Normal 81.0-99.0 [facility] Comment on above: Performed By: #### C BCMAN #### [facility] [address] [place] [address] Dr. Blanquita Farris METAMYELOCYTE # Normal [facility] Comment on above: Performed By: #### C BCDALI #### [facility] [address] [place] [address] Dr. Blanquita Farris METAMYELOCYTE % Normal [facility] Comment on above: Performed By: #### C BCDALI #### [facility] [address] [place] [address] Dr. Blanquita Farris MONOM# 0.14 103/ul Critically low 0.30-0.80 [facility] Comment on above: Performed By: #### C BRIGETTE #### [facility] [address] [place] [address] Dr. Blanquita Farris MONOM% 4.0 % Normal 1.7-12.0 [facility] Comment on above: Performed By: #### C BRIGETTE #### [facility] [address] [place] [address] Dr. Blanquita Farris MPV 12.1 fL Normal 9.5-13.5 [facility] Comment on above: Performed By: #### C BRIGETTE #### [facility] [address] [place] [address] Dr. Blanquita Farris MYELOCYTE # Normal [facility] Comment on above: Performed By: #### C BCDALI #### [facility] [address] [place] [address] Dr. Blanquita Farris MYELOCYTE % Normal [facility] Comment on above: Performed By: #### C BRIGETTE #### [facility] [address] [place] [address] Dr. Blanquita Farris NRBC Normal [facility] Comment on above: Performed By: #### C BRIGETTE #### [facility] [address] [place] [address] Dr. Blanquita Farris PLT 121 103/ul Critically low 150-450 [facility] Comment on above: Performed By: #### C BCMAN #### [facility] [address] [address] [address] Blanquita Farris RBC 4.55 106/ul Normal 4.20-5.40 [facility] Comment on above: Performed By: #### C BCMAN #### [facility] [address] [id number] Blanquita Farris RDW 15.8 % Critically high 11.0-15.0 [facility] Comment on above: Performed By: #### C BCMAN #### [facility] [address] [address] [address] Blanquita Farris SEG # 2.73 103/ul Normal 1.40-6.50 [facility] Comment on above: Performed By: #### C BCMAN #### [facility] [address] [address] [address] Blanquita Farris SEG % 78.0 % Critically high 43.0-75.0 [facility] Comment on above: Performed By: #### C BCMAN #### [facility] [address] [id number] Blanquita Farris WBC 3.5 103/ul Critically low 4.0-11.0 [facility] Comment on above: Performed By: #### C BCMAN #### [facility] [address] [address] [address] CSPINE WO CONon 1 CT CSPINE WO CON EXAMINATION: CT HEAD WO CON, CT CSPINE WO CON HISTORY: DISORIENTATION, UNSPECIFIED COMPARISON: Acute hypoglycemia. TECHNIQUE: CT examination of the head without IV contrast. Dose reduction techniques were achieved by using automated exposure control and/or adjustment of mA and/or kV according to patient size and/or use of iterative reconstruction technique. FINDINGS: CT head Calvarium/skull base: No evidence of acute fracture or destructive lesion. Mastoids and middle ears demonstrate no substantial mucosal disease. Paranasal sinuses: No air fluid levels. Brain: No acute intracranial hemorrhage. No acute large vascular territory infarct. No mass lesion or mass effect. No hydrocephalus. CT cervical spine Alignment: No substantial subluxation. Vertebrae: Vertebral body heights are maintained. No fracture. Craniocervical junction: Partial ossification of cranial cervical junction ligaments. Degenerative changes: Multilevel minimal degenerative changes of cervical spine with mild anterior osteophytic spurring and facet arthropathy. No substantial canal or foraminal stenosis. Additional Comments: Subtle ground glass opacities involving the dependent bilateral lung apices, greater on the right. Visualized soft tissues of the neck appear grossly unremarkable. IMPRESSION: CT head No acute intracranial process. No fracture acute malalignment of the cervical spine. Electronically authenticated by: KEYSHA NAIDU Date: 2021-05-17 09:10 Normal [facility] ER URINE PROFILEon 1 Bilirubin Ql (U) Negative Normal NEGATIVE [facility] Comment on above: Performed By: #### E RUR #### [facility] [address] [place] [address] Dr. Blanquita Farris Clarity (U) CLEAR Normal CLEAR [facility] Comment on above: Performed By: #### E RUR #### [facility] [address] [place] [address] Dr. Blanquita Farris Color (U) LT. YELLOW Normal YELLOW [facility] Comment on above: Performed By: #### E RUR #### [facility] [address] [place] [address] Dr. Blanquita RUTHERFORD A micrscopic examination will be performed if indicated. Normal [facility] Comment on above: Performed By: #### E RUR #### [facility] [address] [address] [address] Blanquita Farris Glucose Ql (U) 100 mg/dl Abnormal NEGATIVE [facility] Comment on above: Performed By: #### E RUR #### [facility] [address] [place] [address] Dr. Blanquita Farris Hemoglobin Ql (U) Negative Normal NEGATIVE [facility] Comment on above: Performed By: #### E RUR #### [facility] [address] [place] [address] Dr. Blanquita Farris Ketones Ql (U) Negative Normal NEGATIVE [facility] Comment on above: Performed By: #### E RUR #### [facility] [address] [place] [address] Dr. Blanquita Farris LEUKOCYTES Negative Normal NEGATIVE [facility] Comment on above: Performed By: #### E RUR #### [facility] [address] [place] [address] Dr. Blanquita Farris Nitrite Ql (U) Negative Normal NEGATIVE [facility] Comment on above: Performed By: #### E RUR #### [facility] [address] [place] [address] Dr. Blanquita Farris pH (U) 7.0 [pH] Normal 5-9 [facility] Comment on above: Performed By: #### E RUR #### [facility] [address] [place] [address] Dr. Blanquita Farris SPEC GRAVITY 1.015 Normal 1.005-<=1.025 [facility] Comment on above: Performed By: #### E RUR #### [facility] [address] [place] [address] Dr. Blanquita Farris UA PROTEIN Negative Normal NEGATIVE/ TRACE [facility] Comment on above: Performed By: #### E RUR #### [facility] [address] [place] [address] Dr. Blanquita Farris UR MICRO IND NOT INDICATED Normal [facility] Comment on above: Performed By: #### E RUR #### [facility] [address] [place] [address] Dr. Blanquita Farris Urobilinogen Qn (U) 0.2 {Chevy'U}/dL Normal 0.2 - 1. 0 [facility] Comment on above: Performed By: #### E RUR #### [facility] [address] [place] [address] Dr. Blanquita Farris POINT OF CARE GLUCOSEon 12-2 Glucose [Mass/Vol] 234 mg/dL Critically high 74-106 [facility] Comment on above: Performed By: #### P OCGLUC #### [facility] [address] [place] [address] Dr. Blanquita Farris PROF 14(COMP METB)on 021 Albumin [Mass/Vol] 3.5 g/dL Normal 3.5-5.0 [facility] Comment on above: Performed By: #### C MP #### [facility] [address] [place] [address] Dr. Blanquita Farris Albumin/Globulin [Mass ratio] 0.9 {ratio} Normal [facility] Comment on above: Performed By: #### C MP #### [facility] [address] [place] [address] Dr. Blanquita Farris ALP [Catalytic activity/Vol] 73 U/L Normal 38-126 [facility] Comment on above: Performed By: #### C MP #### [facility] [address] [place] [address] Dr. Blanquita Farris ALT [Catalytic activity/Vol] 39 U/L Normal 9-52 [facility] Comment on above: Performed By: #### C MP #### [facility] [address] [place] [address] Dr. Blanquita Farris Anion gap [Moles/Vol] 12.9 mmol/L Normal [facility] Comment on above: Performed By: #### C MP #### [facility] [address] [place] [address] Dr. Blanquita Farris AST [Catalytic activity/Vol] 33 U/L Normal 14-36 [facility] Comment on above: Performed By: #### C MP #### [facility] [address] [place] [address] Dr. Blanquita Farris Bilirubin [Mass/Vol] 0.3 mg/dL Normal 0.2-1.3 [facility] Comment on above: Performed By: #### C MP #### [facility] [address] [place] [address] Dr. Blanquita Farris Calcium [Mass/Vol] 8.9 mg/dL Normal 8.4-10.2 [facility] Comment on above: Performed By: #### C MP #### [facility] [address] [place] [address] Dr. Blanquita Farris Chloride [Moles/Vol] 105 mmol/L Normal 98-107 [facility] Comment on above: Performed By: #### C MP #### [facility] [address] [address] [address] Blanquita Farris CO2 [Moles/Vol] 28.3 mmol/L Normal 22.0-30.0 [facility] Comment on above: Performed By: #### C MP #### [facility] [address] [address] [address] Blanquita Farris Creatinine [Mass/Vol] 0.75 mg/dL Normal 0.52-1.04 [facility] Comment on above: Performed By: #### C MP #### [facility] [address] [place] [address] Dr. Blanquita Farris EGFR-AF HAITIAN >60 Normal >=60 [facility] Comment on above: Performed By: #### C MP #### [facility] [address] [place] [address] Dr. Blanquita Farris EGFR-NON AF HAITIAN >60 Normal >=60 [facility] Comment on above: Performed By: #### C MP #### [facility] [address] [address] [address] Blanquita Farris Globulin (S) [Mass/Vol] 3.8 g/dL Normal [facility] Comment on above: Performed By: #### C MP #### [facility] [address] [place] [address] Dr. Blanquita Farris Glucose [Mass/Vol] 173 mg/dL Critically high 74-106 [facility] Comment on above: Performed By: #### C MP #### [facility] [address] [address] [address] Blanquita Farris Potassium [Moles/Vol] 3.2 mmol/L Critically low 3.4-5.0 [facility] Comment on above: Performed By: #### C MP #### [facility] [address] [address] [address] Blanquita Farris Protein [Mass/Vol] 7.3 g/dL Normal 6.1-8.2 [facility] Comment on above: Performed By: #### C MP #### [facility] [address] [place], [place] [address] Dr. Blanquita Farris Sodium [Moles/Vol] 143 mmol/L Normal 137-145 [facility] Comment on above: Performed By: #### C MP #### [facility] [address] [place], [place] [address] Dr. Blanquita Farris Urea nitrogen [Mass/Vol] 11.0 mg/dL Normal 7.0-17.0 [facility] Comment on above: Performed By: #### C MP #### [facility] [address] [address] [address] Blanquita Farris Urea nitrogen/Creatinine [Mass ratio] 14.7 mg/mg Normal [facility] Comment on above: Performed By: #### C MP #### [facility] [address] [address] [address] Blanquita Fraris DIGITAL MAMMOGRAM SCREENING BILATERALon 11-22-2018 DIGITAL MAMMOGRAM SCREENING BILATERAL [facility] Department of Radiology [address] [place] [id number] ======== Patient Name: RENETTA HERNANDEZ : 1960 Sex: F Age: Race: White Pt. Location: [facility] Patient Status: D Ordered Date: 10/11/2018 3:20:00 PM Completed Date: 11/22/2018 12:09 PM Requesting Provider: DES GLYNN Attending Provider: DES GLYNN Report Copy To: Signs & Symptoms: Z12.31 [facility]tr screen mammogram for malignant neoplasm of breast I10 History: Serina Previous study [facility] 07/16/17 Comments: , Additional imaging, if necessary?: Y , Additional imaging, if necessary?: Y , , , Ordering Provider - DES GLYNN CNP , Exam: DIGITAL MAMMOGRAM SCREENING BILATERAL ======== SIGNS AND SYMPTOMS: Z12.31 Encntr screen mammogram for malignant neoplasm of breast I10 TECHNOLOGIST COMMENTS: Yearly screening QUESTION FOR THE RADIOLOGIST: , Additional imaging, if necessary?: Y , Additional imaging, if necessary?: Y , , , Ordering Provider - DES GLYNN CNP , CAD STATEMENT: Two standard digital views of both breasts were performed and reviewed with the aid of CAD R2 version 1. 2.0.0.27. RISK FACTORS: Personal: Post-menopausal patient ; Family: Weak family history of breast cancer (Maternal Grandmother,0) PRIOR PROCEDURE: COMPARISON: Comparison is made to images from 10/13/2017 (bilateral) and images from 10/07/2016 (bilateral) and images from 02/05/2015 (bilateral) FINDINGS: The breast parenchyma is almost entirely fatty, which is unchanged in pattern and distribution. No suspicious masses, microcalcifications, or areas of architectural distortion are identified. Mole markers over the left breast. ASSESSMENT: BI-RADS-1 Negative RECOMMENDATION: If the patient's physical exam remains unchanged, annual routine screening mammography is recommended. Electronically signed by:Summer Cage. Transcribed by: [email or web address], User Resident: Electronically Signed by: SUMMER CAGE @ 11/24/2018 03:21 PM Normal [facility] Comment on above: Order Comment: , Add itional imaging, if necessary?: Y , Additional imaging, if necessary?: Y , , , Ordering Provider - DES GLYNN CNP , *VAGINITIS DNA PROBEon 10-11 *VAGINITIS DNA PROBE Clinical Report: (D) Specimen: GENITAL Collected: 10/11/2018 14:45 Status: Final Last Updated: 10/11/2018 19:16 MARQUITA (Final) Negative JUAN (Final) Negative TRICH (Final) Negative Normal [facility] Comment on above: Performed By: #### 5 6101 #### [facility] [address] [place] [address], [facility] FREE T4on 09-20-2018 Free T4 [Mass/Vol] 0.93 ng/dL Normal 0.71-1.85 [facility] Comment on above: Performed By: #### 3 1522, 47989, 68257, 77023 #### [facility] [address] [place] [address], [facility] HEMOGLOBIN A1Con 09-20-2018 HbA1c (Bld) [Mass fraction] 269 mg/dL High 70-126 [facility] Comment on above: Performed By: #### 4 6447 #### [facility] [address] [facility] [place] [address], [facility] HbA1c (Bld) [Mass fraction] 11.0 % High 4.0-6.0 [facility] Comment on above: Performed By: #### 4 6447 #### [facility] [address] [facility] [place] [address], [facility] LIPID PROFILEon 09-20-2018 Cholesterol [Mass/Vol] 164 mg/dL Normal 120-200 [facility] Comment on above: Result Comment: CHOL ESTEROL REFERENCE RANGE: 20 YEARS AND OLDER CARDIOVASCULAR RISK Less than 200 mg/dl Low Risk 200 to 239 mg/dl Borderline Risk 240 mg/dl and greater High Risk Performed By: #### 3 1522, 35862, 48091, 90104 #### [facility] [address] [facility] [address] Cholesterol in HDL [Mass/Vol] 30 mg/dL Normal 23-92 [facility] Comment on above: Result Comment: Slig ht variation in normal range could be due to gender and/or age. HDL CHOLESTEROL REFERENCE RANGE: 20 years and older Cardiovascular Risk > or =60 mg/dL Desirable 40 TO 59 mg/dL Low Risk <40 mg/dL High Risk Performed By: #### 3 1522, 70226, 24057, 88738 #### [facility] [address] [place] [address], [facility] Cholesterol in LDL [Mass/Vol] 91 mg/dL Normal 0-130 [facility] Comment on above: Result Comment: LDL IS A CALCULATION LDL IS ONLY VALID IF THE TRIG IS LESS THAN 400. Performed By: #### 3 1522, 55609, 48974, 76475 #### [facility] [address] [place] [address], [facility] Cholesterol.total/C holesterol in HDL [Mass ratio] 5.5 {ratio} High .0-4.5 [facility] Comment on above: Performed By: #### 3 1522, 24418, 07154, 91311 #### [facility] [address] NON-HDL CHOLESTEROL 134 mg/dL Normal [facility] Comment on above: Performed By: #### 3 1522, 81615, 82376, 74471 #### [facility] [address] [facility] [place] [address], [facility] Triglyceride [Mass/Vol] 215 mg/dL High 40-149 [facility] Comment on above: Result Comment: TRIG LYCERIDE REFERENCE RANGE: 20 YEARS AND OLDER CARDIOVASCULAR RISK LESS THAN 150 mg/dl LOW RISK 150 TO 199 mg/dl BORDERLINE RISK 200 mg/dl AND GREATER HIGH RISK Performed By: #### 3 1522, 21673, 91290, 62001 #### [facility] [address] [place] [address], [facility] VLDL CHOL 43 mg/dL High 0-40 [facility] Comment on above: Performed By: #### 3 1522, 93383, 09272, 37213 #### [facility] [address] [place] [address], [place] MICROALBUMIN URINE RANDOMon 09-20-2018 Creatinine [Mass/Vol] 148.0 mg/dL Normal [facility] Comment on above: Result Comment: Ther e are no established reference values for random urine specimens Performed By: #### 3 0067 #### [facility] [address] [place] [address], [place] MICROALBUMIN <1.0 Normal [facility] Comment on above: Performed By: #### 3 0067 #### [facility] [address] [place] [address], [place] MICROALBUMIN/CREATI NINE RATIO 'UNABLE TO CALC Normal 0.0-30.0 [facility] Comment on above: Performed By: #### 3 0067 #### [facility] [address] [place] [address], [place] TSH3on 09-20-2018 TSH 3RD GENERATION 1.53 uIU/mL Normal 0.34-5.60 [facility] Comment on above: Performed By: #### 3 1522, 33547, 14791, 55594 #### [facility] [address] [place] [address], [facility] VITAMIN D 25-HYDROXYon 09-20 VITAMIN D 25-OH 33.8 ng/mL Normal 30.0-80.0 [facility] Comment on above: Result Comment: >80. 0 Toxicity possible Performed By: #### 3 1522, 10034, 15509, 09545 #### [facility] [address] [place] [address], [place] US HEPATIC ECHOGRAMon 2018 US HEPATIC ECHOGRAM [facility] Department of Radiology [address] [place] [address] ======== Patient Name: RENETTA HERNANDEZ : 1960 Sex: F Age: Race: White Pt. Location: [facility] Patient Status: O Ordered Date: 06/19/2018 3:35:00 PM Completed Date: 08/22/2018 10:39 AM Requesting Provider: ANGELIQUE BENNETT Attending Provider: ANGELIQUE BENNETT Report Copy To: FAINA CHAPMAN Signs & Symptoms: K74.60 Unspecified cirrhosis of liver I10 History: Serina Comments: , , , Ordering Provider - ANGELIQUE BENNETT MD , Exam: US HEPATIC ECHOGRAM ======== US HEPATIC ECHOGRAM 08/22/2018 10:39 AM EDT SIGNS AND SYMPTOMS: K74.60 Unspecified cirrhosis of liver I10 TECHNOLOGIST COMMENTS: cirrhosis QUESTION FOR THE RADIOLOGIST: , , , Ordering Provider - ANGELIQUE BENNETT MD , TECHNIQUE: Limited abdominal ultrasound. COMPARISON: none FINDINGS: Hepatic echotexture appears increased. No focal lesion or dilatation of intrahepatic bile ducts. Hepatopedal flow seen in the portal vein with a flow rate of 40 cm/s. The bile duct measured 4 mm and the gallbladder is. IMPRESSION: Increased hepatic echogenicity suggesting hepatocellular disease. Electronically signed by:Russell Miranda. Transcribed by: [email or web address], User Resident: Electronically Signed by: RUSSELL MIRANDA @ 08/22/2018 12:53 PM Normal [facility] Comment on above: Order Comment: , , = ========= , Ordering Provider - ANGELIQUE BENNETT MD , US ABDOMINAL FOR ASCITES JIMENEZ ITEDon 06-28-2018 US ABDOMINAL FOR ASCITES LIMITED [facility] Department of Radiology [address] [place] [id number] ======== Patient Name: RENETTA HERNANDEZ : 1960 Sex: F Age: Race: White Pt. Location: [facility] Patient Status: O Ordered Date: 06/19/2018 3:35:00 PM Completed Date: 06/28/2018 11:18 AM Requesting Provider: ANGELIQUE BENNETT Attending Provider: ANGELIQUE BENNETT Report Copy To: FAINA CHAPMAN Signs & Symptoms: K74.60 Unspecified cirrhosis of liver I10 History: [place] no show 06/28/18 10am Comments: , , , Ordering Provider - ANGELIQUE BENNETT MD , Exam: US ABDOMINAL FOR ASCITES LIMITED ======== US ABDOMINAL FOR ASCITES LIMITED 06/28/2018 11:18 AM EST SIGNS AND SYMPTOMS: K74.60 Unspecified cirrhosis of liver I10 TECHNOLOGIST COMMENTS: hx of cirrhosis. distention. r/o ascites QUESTION FOR THE RADIOLOGIST: , , , Ordering Provider - ANGELIQUE BENNETT MD , PROTOCOL: COMPARISON: Ultrasound hepatic December 21, 2017 FINDINGS: Abdominal ultrasound for ascites: Scans through the 4 quadrants of the abdomen show no evidence of ascites. IMPRESSION: * No ascites or abnormal collection visualized within the abdomen. Approved by:Last Franco on 06/28/2018 11:32 AM EST. I, Russell Ruben, have reviewed the images and report and concur with these findings. Electronically signed by:Russell Miranda. Transcribed by: [email or web address], User Resident: LAST FRANCO Electronically Signed by: RUSSELL MIRANDA @ 06/28/2018 12:53 PM I personally read this/these film(s) with this resident Normal [facility] Comment on above: Order Comment: , , = ========= , Ordering Provider - ANGELIQUE BENNETT MD , COMP METABOLIC PANELon 06-19 Albumin [Mass/Vol] 4.1 g/dL Normal 3.5-5.7 [facility] Comment on above: Performed By: #### 0 0121 #### [facility] [address] [facility] [place] [address], [facility] ALKALINE PHOSPH 67 IU/L Normal 34-104 [facility] Comment on above: Performed By: #### 0 0121 #### [facility] [address] [place] [address], [place] ALT [Catalytic activity/Vol] 21 U/L Normal 7-52 [facility] Comment on above: Performed By: #### 0 0121 #### [facility] [address] [facility] [place] [address], [place] AST [Catalytic activity/Vol] 22 U/L Normal 13-39 [facility] Comment on above: Performed By: #### 0 0121 #### [facility] [address] [place] [address], [place] Bilirubin [Mass/Vol] 0.5 mg/dL Normal 0.3-1.0 [facility] Comment on above: Performed By: #### 0 0121 #### [facility] [address] [place] [address], [place] Calcium [Mass/Vol] 9.7 mg/dL Normal 8.6-10.3 [facility] Comment on above: Performed By: #### 0 0121 #### [facility] [address] [place] [address], [place] Chloride [Moles/Vol] 103 mmol/L Normal 98-107 [facility] Comment on above: Performed By: #### 0 0121 #### [facility] [address] [place] [address], [place] CO2 [Moles/Vol] 28 mmol/L Normal 21-31 [facility] Comment on above: Performed By: #### 0 0121 #### [facility] [address] [place] [address], [place] Creatinine [Mass/Vol] 0.89 mg/dL Normal 0.60-1.20 [facility] Comment on above: Performed By: #### 0 0121 #### [facility] [address] [place] [address], [place] GFR/1.73 sq M predicted among blacks MDRD (S/P/Bld) [Vol rate/Area] mL/min/{1.73_m2} Normal >60 [facility] Comment on above: Performed By: #### 0 0121 #### [facility] [address] [place] [address], [place] GFR/1.73 sq M predicted among non-blacks MDRD (S/P/Bld) [Vol rate/Area] mL/min/{1.73_m2} Normal >60 [facility] Comment on above: Performed By: #### 0 0121 #### [facility] [address] [place] [address], [place] Glucose [Mass/Vol] 175 mg/dL High 70-100 [facility] Comment on above: Performed By: #### 0 0121 #### [facility] [address] [place] [address], [place] Potassium [Moles/Vol] 3.8 mmol/L Normal 3.5-5.1 [facility] Comment on above: Performed By: #### 0 0121 #### [facility] [address] [place] [address], [facility] Protein [Mass/Vol] 7.5 g/dL Normal 6.0-8.3 [facility] Comment on above: Performed By: #### 0 0121 #### [facility] [address] [place] [address], [facility] Sodium [Moles/Vol] 139 mmol/L Normal 136-145 [facility] Comment on above: Performed By: #### 0 0121 #### [facility] [address] [place] [address], [facility] Urea nitrogen [Mass/Vol] 14 mg/dL Normal 7-25 [facility] Comment on above: Performed By: #### 0 0121 #### [facility] [address] [facility] [address] PROTHROMBIN TIMEon 9 INR Coag (PPP) [Relative time] 1.17 {INR} High 0.91-1.16 [facility] Comment on above: Result Comment: ACCC P RECOMMENDED INR FOR WARFARIN THERAPY ------ ------- CONDITION INR PROPHYLAXIS OF VENOUS THROMBOSIS 2-3 (HIGH-RISK SURGERY) TREATMENT OF VENOUS THROMBOSIS 2-3 TREATMENT OF PULMONARY EMBOLISM 2-3 PREVENTION OF SYSTEMIC EMBOLISM: 2-3 ACUTE MYOCARDIAL INFARCTION TISSUE HEART VALVES VALVULAR HEART DISEASE ATRIAL FIBRILLATION RECURRENT SYSTEMIC EMBOLISM MECHANICAL HEART VALVE 2.5-3.5 FROM: ORAL ANTICOAGULANTS. MECHANISM OF ACTION, CLINICAL EFFECTIVENESS, AND OPTIMAL THERAPEUTIC RANGE. CHEST 1995;108:231S-246S. Performed By: #### 5 6101 #### [facility] [address] [place] [address], [facility] PT Coag (PPP) [Time] 14.9 s High 12.3-14.8 [facility] Comment on above: Result Comment: ALL RESULTS MUST BE INTERPRETED WITH RESPECT TO BLOOD DRAWING ARTIFACT OR DILUTION ERROR OF ANTICOAGULANT AT THE TIME OF SAMPLING. Performed By: #### 5 6101 #### [facility] [address] [place] [address], [facility] Vital Signs Date Time Vital Sign Value Performing Clinician Facility 12-05-2023 11:55-0400 Diastolic blood pressure 54 mm[Hg] N[facility] JU[facility] 12-05-2023 11:55-0400 Mean blood pressure 77 mm[Hg] N[facility] JU[facility] 12-05-2023 11:55-0400 Systolic blood pressure 122 mm[Hg] N[facility] JUAN[facility] 12-05-2023 11:44-0400 Blood Pressure Location NGA JUANITO [facility] 12-05-2023 11:44-0400 Diastolic blood pressure 107 mm[Hg] N[facility] JU[facility] 12-05-2023 11:44-0400 Heart rate 95 /min NGA JUANTIO [facility] 12-05-2023 11:44-0400 Systolic blood pressure 128 mm[Hg] NGA JUAN[facility] 11-28-2023 11:43-0400 Blood Pressure Location NGA JUANIT[facility] 11-28-2023 11:43-0400 Diastolic blood pressure 67 mm[Hg] NGA JUANITO [facility] 11-28-2023 11:43-0400 Heart rate 95 /min NGA JUANITO [facility] 11-28-2023 11:43-0400 Systolic blood pressure 148 mm[Hg] NGA JUANITO [facility] 11-21-2023 11:37-0400 Blood Pressure Location NGA JUANIT[facility] 11-21-2023 11:37-0400 Body temperature 97.88 [degF] NGA JUANITO [facility] 11-21-2023 11:37-0400 Diastolic blood pressure 11 mm[Hg] NGA JUANITO [facility] 11-21-2023 11:37-0400 Heart rate 74 /min NGA JUANITO [facility] 11-21-2023 11:37-0400 Respiratory rate 15 /min NGA JUANITO [facility] 11-21-2023 11:37-0400 Systolic blood pressure 131 mm[Hg] NGA JUANITO [facility] 11-14-2023 11:36-0400 Blood Pressure Location NGA JUANITO [facility] 11-14-2023 11:36-0400 Body temperature 97.7 [degF] NGA SOLOMON [facility] 11-14-2023 11:36-0400 Diastolic blood pressure 88 mm[Hg] NGA SOLOMON [facility] 11-14-2023 11:36-0400 Heart rate 78 /min NGA SOLOMON [facility] 11-14-2023 11:36-0400 Systolic blood pressure 150 mm[Hg] NGA SOLOMON [facility] 06-23-2023 13:50-0500 Body height 157.5 cm Ander Funes MD Work Phone: [facility] 06-23-2023 13:50-0500 Body temperature 97.59 [degF] Andre Funes MD Work Phone: [facility] 06-23-2023 13:50-0500 Body weight 91.1 kg Andre Funes MD Work Phone: [facility] 06-23-2023 13:50-0500 Diastolic blood pressure 93 mm[Hg] Andre Funes MD Work Phone: [facility] 06-23-2023 13:50-0500 Heart rate 107 /min Andre Funes MD Work Phone: [facility] 06-23-2023 13:50-0500 Respiratory rate 18 /min Andre Funes MD Work Phone: [facility] 06-23-2023 13:50-0500 SaO2% (BldA) [Mass fraction] 94 % Andre Funes MD Work Phone: [facility] 06-23-2023 13:50-0500 Systolic blood pressure 149 mm[Hg] Andre Funes MD Work Phone: [facility] 05-03-2023 10:34-0500 Blood Pressure Location NGA SOLOMON [facility] 05-03-2023 10:34-0500 Diastolic blood pressure 88 mm[Hg] NGA SOLOMON [facility] 05-03-2023 10:34-0500 Heart rate 91 /min NGA SOLOMON [facility] 05-03-2023 10:34-0500 Respiratory rate 16 /min NGA SOLOMON [facility] 05-03-2023 10:34-0500 Systolic blood pressure 138 mm[Hg] NGA SOLOMON [facility] 04-05-2023 14:15-0500 Body height 157.48 cm Rodger Chavez Other [employer] Other 04-05-2023 14:15-0500 Body mass index (BMI) [Ratio] 37.31 kg/m2 Rodger Chavez Other [employer] Other 04-05-2023 14:15-0500 Body weight 92.53 kg Rodger Chavez Other [employer] Other 04-05-2023 14:15-0500 Diastolic blood pressure 82 mm[Hg] Rodger Chavez Other [employer] Other 04-05-2023 14:15-0500 Systolic blood pressure 143 mm[Hg] Rodger Chavez Other [employer] Other 09-28-2022 14:45-0400 Body height 157.48 cm Rodger Chavez Other [employer] Other 09-28-2022 14:45-0400 Body mass index (BMI) [Ratio] 37.86 kg/m2 Rodger Chavez Other [employer] Other 09-28-2022 14:45-0400 Body weight 93.9 kg Rodger Chavez Other [employer] Other 09-28-2022 14:45-0400 Diastolic blood pressure 77 mm[Hg] Rodger Chavez Other [employer] Other 09-28-2022 14:45-0400 SaO2% (BldA) [Mass fraction] 95 % Rodger Chavez Other [employer] Other 09-28-2022 14:45-0400 Systolic blood pressure 156 mm[Hg] Rodger Chavez Other [employer] Other 06-25-2022 13:45-0500 Diastolic blood pressure 82 mm[Hg] Andre Funes MD Work Phone: [facility] 06-25-2022 13:45-0500 Systolic blood pressure 152 mm[Hg] Andre Funes MD Work Phone: [facility] 06-25-2022 13:44-0500 Body height 157.5 cm Andre Funes MD Work Phone: [facility] 06-25-2022 13:44-0500 Body temperature 97.5 [degF] Andre Funes MD Work Phone: [facility] 06-25-2022 13:44-0500 Body weight 95.17 kg Andre Funes MD Work Phone: [facility] 06-25-2022 13:44-0500 Heart rate 88 /min Andre Funes MD Work Phone: [facility] 06-25-2022 13:44-0500 Respiratory rate 16 /min Andre Funes MD Work Phone: [facility] 06-25-2022 13:44-0500 SaO2% (BldA) [Mass fraction] 97 % Andre Funes MD Work Phone: [facility] 06-22-2022 14:30-0500 Body height 157.48 cm Rodger Chavez Other [employer] Other 06-22-2022 14:30-0500 Body mass index (BMI) [Ratio] 37.86 kg/m2 Rodger Chavez Other [employer] Other 06-22-2022 14:30-0500 Body weight 93.9 kg Rodger Chavez Other [employer] Other 06-22-2022 14:30-0500 Diastolic blood pressure 80 mm[Hg] Rodger Chavez Other [employer] Other 06-22-2022 14:30-0500 Systolic blood pressure 130 mm[Hg] Rodger Chavez Other [employer] Other 03-04-2022 15:45-0400 Body height 157.48 cm Rodger Chavez Other [employer] Other 03-04-2022 15:45-0400 Body mass index (BMI) [Ratio] 38.59 kg/m2 Rodger Chavez Other [employer] Other 03-04-2022 15:45-0400 Body weight 95.71 kg Rodger Chavez Other [employer] Other 12-17-2021 13:02-0400 Body height 157.5 cm Andre Funes MD Work Phone: [facility] 12-17-2021 13:02-0400 Body temperature 97.59 [degF] Andre Funes MD Work Phone: [facility] 12-17-2021 13:02-0400 Body weight 97.98 kg Andre Funes MD Work Phone: [facility] 12-17-2021 13:02-0400 Diastolic blood pressure 83 mm[Hg] Andre Funes MD Work Phone: [facility] 12-17-2021 13:02-0400 Heart rate 92 /min Andre Funes MD Work Phone: [facility] 12-17-2021 13:02-0400 Respiratory rate 16 /min Andre Funes MD Work Phone: [facility] 12-17-2021 13:02-0400 SaO2% (BldA) [Mass fraction] 95 % Andre Funes MD Work Phone: [facility] 12-17-2021 13:02-0400 Systolic blood pressure 145 mm[Hg] Andre Funes MD Work Phone: [facility] Encounters Encounter Date Encounter Type Care Provider Facility Start: 12-05-2023 End: 12-05-2023 ambulatory NGA SOLOMON [facility] Start: 12-05-2023 End: 12-05-2023 Patient encounter procedure NGA SOLOMON [facility] Start: 11-28-2023 End: 11-28-2023 ambulatory NGA E JUANITO Facility:[facility] Start: 11-28-2023 End: 11-28-2023 Patient encounter procedure NGA E JUANITO [facility] Content Ramen Start: 11-21-2023 End: 11-21-2023 ambulatory NGA E JUANITO Facility: [place] Start: 11-21-2023 End: 11-21-2023 Patient encounter procedure NGA E JUANITO [facility] [place] [facility]en Start: 11-16-2023 End: 11-16-2023 ambulatory RAJAT JEFF Not Available Start: 11-14-2023 End: 11-14-2023 ambulatory NGA E JUANITO Facility: [place] Start: 11-14-2023 End: 11-14-2023 Patient encounter procedure NGA E JUANITO [facility] Start: 11-10-2023 End: 11-10-2023 ambulatory TAN BAGLEY Not Available Start: 11-08-2023 End: 11-08-2023 ambulatory DENI CARBAJAL Not Available Start: 11-07-2023 End: 11-07-2023 ambulatory NGA E JUANITO Facility: [facility] Start: 11-07-2023 End: 11-07-2023 Patient encounter procedure NGA E JUANITO [facility] Start: 10-31-2023 End: 10-31-2023 ambulatory NGA E JUANITO Facility:[facility] Start: 10-31-2023 End: 10-31-2023 Patient encounter procedure NGA E JUANITO [facility] Start: 10-20-2023 End: 10-20-2023 ambulatory DENI C SOLOMON Not Available Start: 10-13-2023 End: 10-13-2023 ambulatory RAJAT AGUILAR Not Available Start: 09-28-2023 End: 09-28-2023 ambulatory DENI Peres JASSBILL Not Available Start: 08-02-2023 End: 08-02-2023 ambulatory CHAVA QUIROZ [facility] Start: 06-23-2023 End: 06-23-2023 ambulatory ANDRE FUNES Facility:[facility] Start: 06-23-2023 End: 06-23-2023 Office outpatient visit 15 minutes Andre Funes MD Work Phone: Hematology/Oncology Comment on above: MENDEZ (nonalcoholic s teatohepatitis) (Primary Dx); 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 Other Start: 06-22-2023 Telephone encounter Soheila Delgado [facility] Start: 06-21-2023 End: 06-21-2023 ambulatory MAHAMED [facility] Start: 06-01-2023 End: 06-01-2023 ambulatory LUL PORTERY Not Available Start: 05-24-2023 End: 05-24-2023 ambulatory LUL Kothari PRINTY Not Available Start: 05-03-2023 End: 05-03-2023 ambulatory NGA SOLOMON Facility:[facility] Start: 05-03-2023 End: 05-03-2023 Patient encounter procedure NGA SOLOMON [facility] [place] Start: 04-12-2023 End: 04-12-2023 ambulatory Rodger Chavez Other [employer] Other Start: 04-12-2023 Telephone encounter Rodger cabrales [facility] Start: 04-05-2023 End: 04-05-2023 ambulatory Rodger Chavez Other [employer] Other Start: 04-05-2023 Office outpatient vi sit 15 minutes Rodger Chavez [facility] Start: 03-17-2023 ambulatory NGA SOLOMON Facility :[facility] [place] Start: 10-19-2022 End: 10-20-2022 ambulatory SHAKIRA RONALDO Facility:[facility] Start: 10-15-2022 ambulatory SHAKIRA RONALDO Facility: [facility] Start: 10-06-2022 End: 10-06-2022 ambulatory SHAKIRA RONALDO Facility:[facility] Start: 09-28-2022 End: 09-28-2022 ambulatory Rodger Chavez Other [employer] Other Start: 09-28-2022 Office outpatient vi sit 15 minutes Rodger Chavez [facility] Start: 06-25-2022 End: 06-25-2022 Office outpatient visit 15 minutes Andre Funes MD Work Phone: Hematology/Oncology Comment on above: Cirrhosis of liver n ot due to alcohol (HCC) (Primary Dx); MENDEZ (nonalcoholic steatohepatitis); Thrombocytopenia due to hypersplenism Start: 06-22-2022 End: 06-22-2022 ambulatory Rodger Chavez Other [employer] Other Start: 06-22-2022 Office outpatient vi sit 15 minutes Rodger Chavez [facility] Start: 06-10-2022 End: 06-11-2022 ambulatory SHAKIRA RONALDO Facility:[facility] Start: 05-22-2022 End: 05-22-2022 ambulatory SHAKIRA RONALDO Facility:[facility] Start: 04-01-2022 End: 04-01-2022 ambulatory Rodger Chavez Other [employer] Other Start: 04-01-2022 Telephone encounter Rodger cabrales [facility] Start: 03-16-2022 End: 03-16-2022 ambulatory SHAKIRA HIGGINS Facility:[facility] Start: 03-15-2022 End: 03-16-[address] DOCTOR RAMOS Facility:[facility] Start: 03-04-2022 End: 03-04-2022 ambulatory Rodger Chavez Other [employer] Other Start: 03-04-2022 Office outpatient ne w 45 minutes Rodger Chavez [facility] Start: 02-16-2022 End: 03-01-2022 ambulatory UNKNOWN PROVIDER Facility:[facility] Start: 12-17-2021 End: 12-17-2021 ambulatory Andre Funes MD Work Phone: Hematology/Oncology Comment on above: Thrombocytopenia due to hypersplenism (Primary Dx); 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); MENDEZ (nonalcoholic steatohepatitis) Start: 12-17-2021 End: 12-17-2021 Patient encounter procedure Andre Funes MD Work Phone: [facility] Start: 11-25-2021 End: 11-26-2021 ambulatory SHAKIRA HIGGINS Facility:[facility] Start: 05-17-2021 End: 05-17-[address] JENNIFER TURNER Facility:[facility] Start: 08-05-2020 End: 08-05-2020 Patient encounter procedure External Provider [facility] Start: 08-05-2020 Results Only External Provider Exter nal-NonCCF Procedures Date Procedure Procedure Detail Performing Clinician Start: 12-10-2020 Adult depression screening assessment Andre Funes MD Work Phone: Start: 09-24-2020 Esophagogastroduodenoscopy NGA Gao Comment on above: with Right Hemorrhoidectomy Start: 08-05-2020 EXTERNAL LAB External Provider Start: 04-09-2020 Colonoscopy NGA SOLOMON Bilateral tubal ligation SAMMY SOLOMON Bilateral tubal ligation SAMMY SOLOMON Bile duct stone removal MILTON SOLOMON Bile duct stone removal MILTON SOLOMON section NGA MONTOYA Laparoscopic cholecystectomy NGA SOLOMON Tonsillectomy and adenoidectomy NGA SOLOMON Plan of Treatment Date Care Activity Detail Author Start: 06-25-2025 DIABETES SCREEN DIABETES SCREEN [facility] Start: 12-17-2024 DIABETES SCREEN DIABETES SCREEN [facility] Start: 06-23-2024 End: 09-22-2024 [id number] [Mass/volume] in Serum or Plasma ALPHA FETOPROTEIN BL Lab Routine MENDEZ (nonalcoholic steatohepatitis) 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 Expected: 06/23/2024 (Approximate), Expires: 09/22/2024 [facility] Work Phone: Comment on above: Expected: 06/23/2024 (Approximate), Expires: 09/22/2024 Start: 06-23-2024 End: 06-23-2024 CBC W Auto Differential panel - Blood CBC + DIFF Lab Routine MENDEZ (nonalcoholic steatohepatitis) 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 Expected: 06/23/2024 (Approximate), Expires: 06/23/2024 [facility] Work Phone: Comment on above: Expected: 06/23/2024 (Approximate), Expires: 06/23/2024 Start: 06-23-2024 End: 06-23-2024 Cobalamin (Vitamin B12) [Mass/volume] in Serum or Plasma VITAMIN B12 BLOOD Lab Routine MENDEZ (nonalcoholic steatohepatitis) 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 Expected: 06/23/2024 (Approximate), Expires: 06/23/2024 [facility] Work Phone: Comment on above: Expected: 06/23/2024 (Approximate), Expires: 06/23/2024 Start: 06-23-2024 End: 06-23-2024 Comprehensive metabolic 2000 panel - Serum or Plasma COMP METABOLIC PANEL Lab Routine MENDEZ (nonalcoholic steatohepatitis) 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 Expected: 06/23/2024 (Approximate), Expires: 06/23/2024 [facility] Work Phone: Comment on above: Expected: 06/23/2024 (Approximate), Expires: 06/23/2024 Start: 06-23-2024 End: 06-23-2024 Ferritin [Mass/volume] in Serum or Plasma FERRITIN BLD Lab Routine MENDEZ (nonalcoholic steatohepatitis) 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 Expected: 06/23/2024 (Approximate), Expires: 06/23/2024 [facility] Work Phone: Comment on above: Expected: 06/23/2024 (Approximate), Expires: 06/23/2024 Start: 06-23-2024 End: 06-23-2024 Folate [Mass/volume] in Serum or Plasma FOLATE SERUM Lab Routine MENDEZ (nonalcoholic steatohepatitis) 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 Expected: 06/23/2024 (Approximate), Expires: 06/23/2024 [facility] Work Phone: Comment on above: Expected: 06/23/2024 (Approximate), Expires: 06/23/2024 Start: 06-23-2024 End: 06-23-2024 Iron and Iron binding capacity panel - Serum or Plasma IRON + TIBC Lab Routine MENDEZ (nonalcoholic steatohepatitis) 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 Expected: 06/23/2024 (Approximate), Expires: 06/23/2024 [facility] Work Phone: Comment on above: Expected: 06/23/2024 (Approximate), Expires: 06/23/2024 Start: 01-02-2024 ambulatory Ambulatory Facility:[facility] Start: 12-19-2023 ambulatory Ambulatory Facility:[facility] Start: 06-25-2023 End: 06-25-2023 CBC W Auto Differential panel - Blood CBC + DIFF Lab Routine 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 Expected: 06/25/2023 (Approximate), Expires: 06/25/2023 [facility] Work Phone: Comment on above: Expected: 06/25/2023 (Approximate), Expires: 06/25/2023 Start: 06-25-2023 End: 06-25-2023 Cobalamin (Vitamin B12) [Mass/volume] in Serum or Plasma VITAMIN B12 BLOOD Lab Routine 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 Expected: 06/25/2023 (Approximate), Expires: 06/25/2023 [facility] Work Phone: Comment on above: Expected: 06/25/2023 (Approximate), Expires: 06/25/2023 Start: 06-25-2023 End: 06-25-2023 Comprehensive metabolic 2000 panel - Serum or Plasma COMP METABOLIC PANEL Lab Routine 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 Expected: 06/25/2023 (Approximate), Expires: 06/25/2023 [facility] Work Phone: Comment on above: Expected: 06/25/2023 (Approximate), Expires: 06/25/2023 Start: 06-25-2023 End: 07-25-2023 Dup-scan artl patrick abdl/pel/scrot&/rpr orgn com US DOPPLER COMPLETE Radiology Routine 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 Expected: 06/25/2023 (Approximate), Expires: 07/25/2023 [facility] Work Phone: Comment on above: Expected: 06/25/2023 (Approximate), Expires: 07/25/2023 Start: 06-25-2023 End: 06-25-2023 Ferritin [Mass/volume] in Serum or Plasma FERRITIN BLD Lab Routine 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 Expected: 06/25/2023 (Approximate), Expires: 06/25/2023 [facility] Work Phone: Comment on above: Expected: 06/25/2023 (Approximate), Expires: 06/25/2023 Start: 06-25-2023 End: 06-25-2023 Folate [Mass/volume] in Serum or Plasma FOLATE SERUM Lab Routine 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 Expected: 06/25/2023 (Approximate), Expires: 06/25/2023 [facility] Work Phone: Comment on above: Expected: 06/25/2023 (Approximate), Expires: 06/25/2023 Start: 06-25-2023 End: 06-25-2023 Iron and Iron binding capacity panel - Serum or Plasma IRON + TIBC Lab Routine 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 Expected: 06/25/2023 (Approximate), Expires: 06/25/2023 [facility] Work Phone: Comment on above: Expected: 06/25/2023 (Approximate), Expires: 06/25/2023 Start: 06-25-2023 End: 07-25-2023 US ABD LIVER VASCULAR US ABD LIVER VASCULAR Radiology Routine 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 Expected: 06/25/2023 (Approximate), Expires: 07/25/2023 [facility] Work Phone: Comment on above: Expected: 06/25/2023 (Approximate), Expires: 07/25/2023 Start: 05-23-2023 Depression Assessment Depression Ass essment [facility] Start: 06-19-2022 End: 08-19-2022 [id number] [Mass/volume] in Serum or Plasma ALPHA FETOPROTEIN BL Lab Routine 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) MENDEZ (nonalcoholic steatohepatitis) Expected: 06/19/2022 (Approximate), Expires: 08/19/2022 [facility] Work Phone: Comment on above: Expected: 06/19/2022 (Approximate), Expires: 08/19/2022 Start: 06-19-2022 End: 12-17-2022 CBC W Auto Differential panel - Blood CBC + DIFF Lab Routine 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) MENDEZ (nonalcoholic steatohepatitis) Expected: 06/19/2022 (Approximate), Expires: 12/17/2022 [facility] Work Phone: Comment on above: Expected: 06/19/2022 (Approximate), Expires: 12/17/2022 Start: 06-19-2022 End: 12-17-2022 Cobalamin (Vitamin B12) [Mass/volume] in Serum or Plasma VITAMIN B12 BLOOD Lab Routine 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) MENDEZ (nonalcoholic steatohepatitis) Expected: 06/19/2022 (Approximate), Expires: 12/17/2022 [facility] Work Phone: Comment on above: Expected: 06/19/2022 (Approximate), Expires: 12/17/2022 Start: 06-19-2022 End: 12-17-2022 Comprehensive metabolic 2000 panel - Serum or Plasma COMP METABOLIC PANEL Lab Routine 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) MENDEZ (nonalcoholic steatohepatitis) Expected: 06/19/2022 (Approximate), Expires: 12/17/2022 [facility] Work Phone: Comment on above: Expected: 06/19/2022 (Approximate), Expires: 12/17/2022 Start: 06-19-2022 End: 12-17-2022 Ferritin [Mass/volume] in Serum or Plasma FERRITIN BLD Lab Routine 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) MENDEZ (nonalcoholic steatohepatitis) Expected: 06/19/2022 (Approximate), Expires: 12/17/2022 [facility] Work Phone: Comment on above: Expected: 06/19/2022 (Approximate), Expires: 12/17/2022 Start: 06-19-2022 End: 12-17-2022 Folate [Mass/volume] in Serum or Plasma FOLATE SERUM Lab Routine 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) MENDEZ (nonalcoholic steatohepatitis) Expected: 06/19/2022 (Approximate), Expires: 12/17/2022 [facility] Work Phone: Comment on above: Expected: 06/19/2022 (Approximate), Expires: 12/17/2022 Start: 06-19-2022 End: 12-17-2022 Iron and Iron binding capacity panel - Serum or Plasma IRON + TIBC Lab Routine 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) MENDEZ (nonalcoholic steatohepatitis) Expected: 06/19/2022 (Approximate), Expires: 12/17/2022 [facility] Work Phone: Comment on above: Expected: 06/19/2022 (Approximate), Expires: 12/17/2022 Start: 06-19-2022 End: 01-16-2023 Us abdominal real time w/image limited US ABD RT UPPER QUADRANT Radiology Routine 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) MENDEZ (nonalcoholic steatohepatitis) Expected: 06/19/2022 (Approximate), Expires: 01/16/2023 [facility] Work Phone: Comment on above: Expected: 06/19/2022 (Approximate), Expires: 01/16/2023 Start: 05-23-2022 DEPRESSION ASSESSMENT DEPRESSION ASS ESSMENT [facility] Start: 01-21-2022 Influenza vaccination INFLUENZA (#1) [facility] Start: 12-10-2021 Adult depression screening assessment DEPRESSION SCREENING [facility] Start: 09-29-2021 COVID-19 VACCINE (4 - Booster for Pfizer series) COVID-19 VACCINE (4 - Booster for Pfizer series) [facility] Start: 01-22-2020 Influenza vaccination INFLUENZA (#1) [facility] Start: 2020 RSV Vaccine (1 - 1-d ose 60+ series) RSV Vaccine (1 - 1-dose 60+ series) [facility] Start: 11-07-2017 HEPATITIS B (2 of 3 - Risk 3-dose series) HEPATITIS B (2 of 3 - Risk 3-dose series) [facility] Start: 11-07-2017 Hepatitis B Vaccine (2 of 3 - Risk 3-dose series) Hepatitis B Vaccine (2 of 3 - Risk 3-dose series) [facility] Start: 01-19-2010 Screening for malign ant neoplasm of colon [facility] Start: 01-19-2010 SHINGRIX VACCINE (1 of 2) SHINGRIX VACCINE (1 of 2) [facility] Start: 01-06-2010 PNEUMOCOCCAL (2 - PCV) PNEUMOCOCCAL (2 - PCV) [facility] Start: 01-06-2010 Pneumococcal vaccination Pneumococcal Vaccine (2 of 2 - PCV) [facility] Start: 01-19-2005 COLOGUARD (FIT-DNA) COLOGUARD (FIT-D NA) [facility] Start: 01-19-2005 Colonoscopy COLONOSCOPY [facility] Start: 01-19-2005 COLORECTAL CANCER SCREENING COLORECTAL CANCER SCREENING [facility] Start: 01-19-[address] COLONOGRAPHY [facility] Start: 01-19-2005 DIABETES SCREEN DIABETES SCREEN [facility] Start: 01-19-2005 FECAL OCCULT BLOOD FECAL OCCULT BLOO D [facility] Start: 01-19-2005 LIPID SCREEN LIPID SCREEN [facility] Start: 01-19-2005 Screening for malign ant neoplasm of colon [facility] Start: 01-19-2005 SIGMOIDOSCOPY SIGMOIDOSCOPY [facility] Start: 2000 Mammography MAMMOGRAM [facility] Start: 2000 Screening for malign ant neoplasm of breast Mammogram Screening [facility] Start: 01-19-1990 HPV TESTING HPV TESTING [facility] Start: 01-19-1990 Screening for malign ant neoplasm of cervix HPV Testing [facility] Start: 01-19-1981 PAP TESTING PAP TESTING [facility] Start: 01-19-1981 Screening for malign ant neoplasm of cervix Pap Testing [facility] Start: 01-19-1979 Hepatitis A Vaccine (1 of 2 - Risk 2-dose series) Hepatitis A Vaccine (1 of 2 - Risk 2-dose series) [facility] Start: 01-19-1979 Urine microalbumin profile [facility] Start: 01-19-1978 Annual PCP Team Mobility Manager paul Disease Visit Annual PCP Team Chronic Disease Visit [facility] Start: 01-19-1978 Hepatitis B surface antibody level LDL Cholesterol [facility] Start: 01-19-1978 HEPATITIS C SCREENING HEPATITIS C [facility] Start: 01-19-1978 Hepatitis C screening Hepatitis C [facility] Start: 01-19-1978 HIV SCREENING HIV SCREENING [facility] Start: 01-19-1978 HIV screening HIV Screening [facility] Start: 1972 Adult depression screening assessment DEPRESSION SCREENING [facility] Start: 01-19-1970 Diabetic foot examination Diabetic Foot Exam [facility] Start: 01-19-1970 Glaucoma screening Dilated Retinal E xam [facility] Start: 01-19-1970 Hepatitis B screening Urine Al bumin:Creatinine Ratio [facility] Start: 01-19-1965 Hemoglobin A1c measurement HbA1C [facility] Start: 01-19-1961 HEPATITIS A (1 of 2 - Risk 2-dose series) HEPATITIS A (1 of 2 - Risk 2-dose series) [facility] End: 07-22-2024 US ABD RIGHT UPPER QUADRANT US ABD RIGHT UPPER QUADRANT Radiology Routine MENDEZ (nonalcoholic steatohepatitis) 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 1 Occurrences starting 06/23/2023 until 07/22/2024 [facility] Work Phone: Comment on above: 1 Occurrences starti ng 06/23/2023 until 07/22/2024 [facility] Immunizations Immunization Date Immunization Notes Care Provider Celeste fagan 03-23-2023 influenza virus vacc ine, unspecified formulation NGA SOLOMON [facility] 03-17-2023 influenza virus vacc ine, unspecified formulation NGA SOLOMON [facility] 03-24-2022 influenza virus vacc ine, unspecified formulation NGA SOLOMON [facility] 03-24-2022 SARS-CoV-2 (COVID-19 ) [id number] NGA SOLOMON [facility] 06-01-2021 influenza virus vacc ine, unspecified formulation NGA SOLOMON [facility] 06-01-2021 Influenza, injectabl e, Madin [place] Canine Kidney, preservative free, quadrivalent Andre Funes MD Work Phone: [facility] 06-01-2021 SARS-CoV-2 (COVID-19 ) mRNA BNT-162b2 vax NGA JUANITO [facility] 09-09-2020 COVID-19 vaccine, ag e 12+ yr (PFIZER-BIONTECH - PURPLE TOP) Andre Funes MD Work Phone: [facility] Comment on above: Result Comment: most recent given 09/09/20 08-20-2020 COVID-19 vaccine, ag e 12+ yr (PFIZER-BIONTECH - PURPLE TOP) Andre Funes MD Work Phone: [facility] 06-04-2020 zoster vaccine recombinant Andre Funes MD Work Phone: [facility] 03-23-2020 zoster vaccine recombinant Andre Funes MD Work Phone: [facility] 02-14-2020 influenza virus vacc ine, unspecified formulation NGA SOLOMON [facility] 02-14-2020 Influenza, injectabl e, Madin [place] Canine Kidney, preservative free, quadrivalent Anrde Funes MD Work Phone: [facility] 06-05-2019 influenza virus vacc ine, unspecified formulation NGA SOLOMON [facility] 06-05-2019 Influenza, injectabl e, Madin Breann Canine Kidney, preservative free, quadrivalent Andre Funes MD Work Phone: [facility] 05-21-2019 influenza virus vacc ine, unspecified formulation Andre Funes MD Work Phone: [facility] 05-21-2019 influenza, unspecifi ed formulation NGA SOLOMON [facility] 04-19-2018 influenza virus vacc ine, unspecified formulation NGA JUANITO [facility] 04-19-2018 influenza, injectabl e, quadrivalent, preservative free Andre Funes MD Work Phone: [facility] 10-10-2017 hepatitis B vaccine, pediatric or pediatric/adolescent dosage Andre Funes MD Work Phone: [facility] 10-10-2017 hepatitis B vaccine, unspecified formulation Andre Funes MD Work Phone: [facility] 05-11-2017 hepatitis B vaccine, pediatric or pediatric/adolescent dosage Andre Funes MD Work Phone: [facility] 04-12-2017 hepatitis B vaccine, adult dosage Andre Funes MD Work Phone: [facility] 03-21-2017 influenza virus vacc ine, unspecified formulation NGA SOLOMON [facility] 03-21-2017 influenza, injectabl e, quadrivalent, preservative free Andre Funes MD Work Phone: [facility] 04-12-2016 influenza virus vacc ine, unspecified formulation NGA SOLOMON [facility] 04-12-2016 influenza, injectabl e, quadrivalent, preservative free Andre Funes MD Work Phone: [facility] 03-23-2014 influenza virus vacc ine, unspecified formulation Andre Funes MD Work Phone: [facility] 03-23-2014 influenza, unspecifi ed formulation NGA JUANITO [facility] 01-06-2009 pneumococcal polysaccharide vaccine, 23 valent Andre Funes MD Work Phone: [facility] Payers Date Payer Category Payer Medicare DEVOTED MEDICARE DEVOTED HEALTH [id number] 2020-Present [phone] [address] [place] [id number] HMO [id number] 2020 Medicare DEVOTED MEDICARE DEVOTED HEALTH [place] HMO [id number] 2020-Present [phone] [address] [place] [address] O [id number] 2020 Unknown [id number] 2020 Medicaid [id number] 2020 Medicaid MEDICAID [facility] MEDICAID [id number] 2020-Present [phone] [address] [place] [address] Medicaid [id number] 2020 Medicare MEDICARE MEDICAR E A AND B [id number] 2020-Present [place], [place] Medicare [id number] 1960 Unknown [id number] 2.16.840.1.034579.3.579.2.593 1960 Unknown [id number] 2.16.840.1.016421.3.579.2.732 1960 Unknown [id number] 2.16.840.1.710203.3.579.2.593 1960 Unknown [id number] 2.16.840.1.435232.3.579.2.593 1960 Unknown [id number] 2.16.840.1.699008.3.579.2.593 1960 Unknown [id number] 2.16.840.1.039642.3.579.2.593 1960 Unknown [id number] 2.16.840.1.194029.3.579.2.593 1960 Unknown [id number] 2.16.840.1.196510.3.579.2.593 1960 Unknown [id number] 2.16.840.1.155709.3.579.2.593 1960 Unknown [id number] 2.16.840.1.277996.3.579.2.593 1960 Unknown [id number] 2.16.840.1.119552.3.579.2.593 1960 Unknown [id number] 2.16.840.1.047879.3.579.2.593 1960 Unknown [id number] 2.16.840.1.045136.3.579.2.593 1960 Unknown [id number] 2.16.840.1.037565.3.579.2.1259 1960 Unknown [id number] 2.16.840.1.939427.3.579.2.1259 1960 Unknown [id number] 2.16.840.1.293938.3.579.2.1259 1960 Unknown [id number] 2.16.840.1.563216.3.579.2.1259 1960 Unknown [id number] 2.16.840.1.955291.3.579.2.1259 1960 Unknown [id number] 2.16.840.1.498789.3.579.2.1259 1960 Unknown [id number] 2.16.840.1.520122.3.579.2.9 1960 Unknown [id number] 2.16.840.1.770192.3.579.2.1259 1960 Unknown [id number] 2.16.840.1.966876.3.579.2.727 1960 Unknown [id number] 2.16.840.1.397401.3.579.2.72 1960 Unknown [id number] 2.16.840.1.432695.3.579.2. 1960 Unknown [id number] 2.16.840.1.133412.3.579.2. 1960 Unknown [id number] 2.16.840.1.810434.3.579.2.72 1960 Unknown [id number] 2.16.840.1.702228.3.579.2.727 1960 Unknown [id number] 2.16.840.1.576076.3.579.2.727 1960 Unknown [id number] 2.16.840.1.093582.3.579.2.727 1960 Unknown [id number] 2.16.840.1.944781.3.579.2.72 1960 Unknown [id number] 2.16.840.1.247305.3.579.2.727 1959 Medicaid [id number] Social History Date Type Detail Facility Tobacco smoking stat [facility] Unknown if ever smoked [facility] Start: 1960 Sex Assigned At Not on file C [facility] Start: 08-06-2020 End: 06-25-2022 Tobacco smoking status RIIS Smokes tobacco daily [facility] tobacco [facility] Start: 08-06-2020 End: 06-23-2023 Cigarettes smoked current (pack per day) - Reported 0.5 [facility] Start: 08-06-2020 End: 06-25-2022 Tobacco use and exposure Smokeless tobacco non-user [facility] Start: 06-11-2021 End: 06-23-2023 Alcohol intake Ex-drinker (finding) [facility] Start: 12-07-2021 End: 12-17-2021 Exposure to SARS-CoV-2 (event) Not sure [facility] Start: 12-10-2020 End: 06-23-2023 Sex Assigned At [facility] History of tobacco use Passive smoker [facility] Start: 05-03-2023 End: 12-05-2023 Tobacco smoking status Heavy tobacco smoker (finding) [facility] Tobacco smoking status Never [facility] Functional Status Date Assessment Result Facility 12-05-2023 Functional Status N/A [facility] 11-28-2023 Functional Status N/A [facility] 11-21-2023 Functional Status N/A [facility] 11-14-2023 Functional Status N/A [facility] 05-03-2023 Functional Status N/A [facility] Clinical Notes 12-17-2021 to 12-05-2023 Patient InstructionsAbAndre gusman MD - 06/23/2023 2:00 PM EST Note Date & Type Note Facility 12-05-2023 Hospital Discharge instructions Patient Education 12/05/2023 12:17:35 Kegel Exercises Kegel Exercises Kegel exercises can help strengthen your pelvic floor muscles. The pelvic floor is a group of muscles that support your rectum, small intestine, and bladder. In females, pelvic floor muscles also help support the uterus. These muscles help you control the flow of urine and stool (feces). Kegel exercises are painless and simple. They do not require any equipment. Your provider may suggest Kegel exercises to: Improve bladder and bowel control. Improve sexual response. Improve weak pelvic floor muscles after surgery to remove the uterus (hysterectomy) or after , in females. Improve weak pelvic floor muscles after prostate gland removal or surgery, in males. Kegel exercises involve squeezing your pelvic floor muscles. These are the same muscles you squeeze when you try to stop the flow of urine or keep from passing gas. The exercises can be done while sitting, standing, or lying down, but it is best to vary your position. Ask your health care provider which exercises are safe for you. Do exercises exactly as told by your health care provider and adjust them as directed. Do not begin these exercises until told by your health care provider. Exercises How to do Kegel exercises: 1.Squeeze your pelvic floor muscles tight. You should feel a tight lift in your rectal area. If you are a female, you should also feel a tightness in your vaginal area. Keep your stomach, buttocks, and legs relaxed. 2.Hold the muscles tight for up to 10 seconds. 3.Breathe normally. 4.Relax your muscles for up to 10 seconds. 5.Repeat as told by your health care provider. Repeat this exercise daily as told by your health care provider. Continue to do this exercise for at least 4 6 weeks, or for as long as told by your health care provider. You may be referred to a physical therapist who can help you learn more about how to do Kegel exercises. Depending on your condition, your health care provider may recommend: Varying how long you squeeze your muscles. Doing several sets of exercises every day. Doing exercises for several weeks. Making Kegel exercises a part of your regular exercise routine. This information is not intended to replace advice given to you by your health care provider. Make sure you discuss any questions you have with your health care provider. Document Revised: 09/17/2021 Document Reviewed: 09/17/2021 [employer] Patient Education 2022 [employer]. Follow Up Care 11/14/2023 12:46:23 With:NGA SOLOMON PA-C, URL Address: [address] [place] [id number] When:Within 2 Week(s) [facility] Raiza 12-05-2023 Note Patient Education Obstetrics and Gynecology Kegel Exercises Kegel exercises can help strengthen your pelvic floor muscles. The pelvic floor is a group of muscles that support your rectum, small intestine, and bladder. In females, pelvic floor muscles also help support the uterus. These muscles help you control the flow of urine and stool (feces). Kegel exercises are painless and simple. They do not require any equipment. Your provider may suggest Kegel exercises to: ? Improve bladder and bowel control. ? Improve sexual response. ? Improve weak pelvic floor muscles after surgery to remove the uterus (hysterectomy) or after , in females. ? Improve weak pelvic floor muscles after prostate gland removal or surgery, in males. Kegel exercises involve squeezing your pelvic floor muscles. These are the same muscles you squeeze when you try to stop the flow of urine or keep from passing gas. The exercises can be done while sitting, standing, or lying down, but it is best to vary your position. Ask your health care provider which exercises are safe for you. Do exercises exactly as told by your health care provider and adjust them as directed. Do not begin these exercises until told by your health care provider. Exercises How to do Kegel exercises: 1. Squeeze your pelvic floor muscles tight. You should feel a tight lift in your rectal area. If you are a female, you should also feel a tightness in your vaginal area. Keep your stomach, buttocks, and legs relaxed. 2. Hold the muscles tight for up to 10 seconds. 3. Breathe normally. 4. Relax your muscles for up to 10 seconds. 5. Repeat as told by your health care provider. Repeat this exercise daily as told by your health care provider. Continue to do this exercise for at least 4?6 weeks, or for as long as told by your health care provider. You may be referred to a physical therapist who can help you learn more about how to do Kegel exercises. Depending on your condition, your health care provider may recommend: ? Varying how long you squeeze your muscles. ? Doing several sets of exercises every day. ? Doing exercises for several weeks. ? Making Kegel exercises a part of your regular exercise routine. This information is not intended to replace advice given to you by your health care provider. Make sure you discuss any questions you have with your health care provider. Document Revised: 09/17/2021 Document Reviewed: 09/17/2021 [employer] Patient Education ? 2022 [employer]. [facility] 11-28-2023 Hospital Discharge instructions Patient Education 11/28/2023 11:53:21 Kegel Exercises Kegel Exercises Kegel exercises can help strengthen your pelvic floor muscles. The pelvic floor is a group of muscles that support your rectum, small intestine, and bladder. In females, pelvic floor muscles also help support the uterus. These muscles help you control the flow of urine and stool (feces). Kegel exercises are painless and simple. They do not require any equipment. Your provider may suggest Kegel exercises to: Improve bladder and bowel control. Improve sexual response. Improve weak pelvic floor muscles after surgery to remove the uterus (hysterectomy) or after , in females. Improve weak pelvic floor muscles after prostate gland removal or surgery, in males. Kegel exercises involve squeezing your pelvic floor muscles. These are the same muscles you squeeze when you try to stop the flow of urine or keep from passing gas. The exercises can be done while sitting, standing, or lying down, but it is best to vary your position. Ask your health care provider which exercises are safe for you. Do exercises exactly as told by your health care provider and adjust them as directed. Do not begin these exercises until told by your health care provider. Exercises How to do Kegel exercises: 1.Squeeze your pelvic floor muscles tight. You should feel a tight lift in your rectal area. If you are a female, you should also feel a tightness in your vaginal area. Keep your stomach, buttocks, and legs relaxed. 2.Hold the muscles tight for up to 10 seconds. 3.Breathe normally. 4.Relax your muscles for up to 10 seconds. 5.Repeat as told by your health care provider. Repeat this exercise daily as told by your health care provider. Continue to do this exercise for at least 4 6 weeks, or for as long as told by your health care provider. You may be referred to a physical therapist who can help you learn more about how to do Kegel exercises. Depending on your condition, your health care provider may recommend: Varying how long you squeeze your muscles. Doing several sets of exercises every day. Doing exercises for several weeks. Making Kegel exercises a part of your regular exercise routine. This information is not intended to replace advice given to you by your health care provider. Make sure you discuss any questions you have with your health care provider. Document Revised: 09/17/2021 Document Reviewed: 09/17/2021 [email or web address] Patient Education 2022 [employer]. Follow Up Care 09/14/2023 15:08:51 With:NGA SOLOMON PA-C, URL Address: [address] [place] [address] When: Unknown [facility] [place] 11-28-2023 Note Patient Education Obstetrics and Gynecology Kegel Exercises Kegel exercises can help strengthen your pelvic floor muscles. The pelvic floor is a group of muscles that support your rectum, small intestine, and bladder. In females, pelvic floor muscles also help support the uterus. These muscles help you control the flow of urine and stool (feces). Kegel exercises are painless and simple. They do not require any equipment. Your provider may suggest Kegel exercises to: ? Improve bladder and bowel control. ? Improve sexual response. ? Improve weak pelvic floor muscles after surgery to remove the uterus (hysterectomy) or after , in females. ? Improve weak pelvic floor muscles after prostate gland removal or surgery, in males. Kegel exercises involve squeezing your pelvic floor muscles. These are the same muscles you squeeze when you try to stop the flow of urine or keep from passing gas. The exercises can be done while sitting, standing, or lying down, but it is best to vary your position. Ask your health care provider which exercises are safe for you. Do exercises exactly as told by your health care provider and adjust them as directed. Do not begin these exercises until told by your health care provider. Exercises How to do Kegel exercises: 1. Squeeze your pelvic floor muscles tight. You should feel a tight lift in your rectal area. If you are a female, you should also feel a tightness in your vaginal area. Keep your stomach, buttocks, and legs relaxed. 2. Hold the muscles tight for up to 10 seconds. 3. Breathe normally. 4. Relax your muscles for up to 10 seconds. 5. Repeat as told by your health care provider. Repeat this exercise daily as told by your health care provider. Continue to do this exercise for at least 4?6 weeks, or for as long as told by your health care provider. You may be referred to a physical therapist who can help you learn more about how to do Kegel exercises. Depending on your condition, your health care provider may recommend: ? Varying how long you squeeze your muscles. ? Doing several sets of exercises every day. ? Doing exercises for several weeks. ? Making Kegel exercises a part of your regular exercise routine. This information is not intended to replace advice given to you by your health care provider. Make sure you discuss any questions you have with your health care provider. Document Revised: 09/17/2021 Document Reviewed: 09/17/2021 [employer] Patient Education ? 2022 [employer]. [facility] 11-21-2023 Hospital Discharge instructions Patient Education 11/21/2023 12:24:54 Overactive Bladder, Adult Overactive Bladder, Adult Overactive bladder is a condition in which a person has a sudden and frequent need to urinate. A person might also leak urine if he or she cannot get to the bathroom fast enough (urinary incontinence). Sometimes, symptoms can interfere with work or social activities. What are the causes? Overactive bladder is associated with poor nerve signals between your bladder and your brain. Your bladder may get the signal to empty before it is full. You may also have very sensitive muscles that make your bladder squeeze too soon. This condition may also be caused by other factors, such as: Medical conditions: ?Urinary tract infection. ?Infection of nearby tissues. ?Prostate enlargement. ?Bladder stones, inflammation, or tumors. ?Diabetes. ?Muscle or nerve weakness, especially from these conditions: ?A spinal cord injury. ?Stroke. ?Multiple sclerosis. ?Parkinson's disease. Other causes: ?Surgery on the uterus or urethra. ?Drinking too much caffeine or alcohol. ?Certain medicines, especially those that eliminate extra fluid in the body (diuretics). ?Constipation. What increases the risk? You may be at greater risk for overactive bladder if you: Are an older adult. Smoke. Are going through menopause. Have prostate problems. Have a neurological disease, such as stroke, dementia, Parkinson's disease, or multiple sclerosis (MS). Eat or drink alcohol, spicy food, caffeine, and other things that irritate the bladder. Are overweight or obese. What are the signs or symptoms? Symptoms of this condition include a sudden, strong urge to urinate. Other symptoms include: Leaking urine. Urinating 8 or more times a day. Waking up to urinate 2 or more times overnight. How is this diagnosed? This condition may be diagnosed based on: Your symptoms and medical history. A physical exam. Blood or urine tests to check for possible causes, such as infection. You may also need to see a health care provider who specializes in urinary tract problems. This is called a urologist. How is this treated? Treatment for overactive bladder depends on the cause of your condition and whether it is mild or severe. Treatment may include: Bladder training, such as: ?Learning to control the urge to urinate by following a schedule to urinate at regular intervals. ?Doing Kegel exercises to strengthen the pelvic floor muscles that support your bladder. Special devices, such as: ?Biofeedback. This uses sensors to help you become aware of your body's signals. ?Electrical stimulation. This uses electrodes placed inside the body (implanted) or outside the body. These electrodes send gentle pulses of electricity to strengthen the nerves or muscles that control the bladder. ?Women may use a plastic device, called a pessary, that fits into the vagina and supports the bladder. Medicines, such as: ?Antibiotics to treat bladder infection. ?Antispasmodics to stop the bladder from releasing urine at the wrong time. ?Tricyclic antidepressants to relax bladder muscles. ?Injections of botulinum toxin type A directly into the bladder tissue to relax bladder muscles. Surgery, such as: ?A device may be implanted to help manage the nerve signals that control urination. ?An electrode may be implanted to stimulate electrical signals in the bladder. ?A procedure may be done to change the shape of the bladder. This is done only in very severe cases. Follow these instructions at home: Eating and drinking Make diet or lifestyle changes recommended by your health care provider. These may include: ?Drinking fluids throughout the day and not only with meals. ?Cutting down on caffeine or alcohol. ?Eating a healthy and balanced diet to prevent constipation. This may include: ?Choosing foods that are high in fiber, such as beans, whole grains, and fresh fruits and vegetables. ?Limiting foods that are high in fat and processed sugars, such as fried and sweet foods. Lifestyle Lose weight if needed. Do not use any products that contain nicotine or tobacco. These include cigarettes, chewing tobacco, and vaping devices, such as e-cigarettes. If you need help quitting, ask your health care provider. General instructions Take tkxk-ynb-ggaqyfb and prescription medicines only as told by your health care provider. If you were prescribed an antibiotic medicine, take it as told by your health care provider. Do not stop taking the antibiotic even if you start to feel better. Use any implants or pessary as told by your health care provider. If needed, wear pads to absorb urine leakage. Keep a log to track how much and when you drink, and when you need to urinate. This will help your health care provider monitor your condition. Keep all follow-up visits. This is important. Contact a health care provider if: You have a fever or chills. Your symptoms do not get better with treatment. Your pain and discomfort get worse. You have more frequent urges to urinate. Get help right away if: You are not able to control your bladder. Summary Overactive bladder refers to a condition in which a person has a sudden and frequent need to urinate. Several conditions may lead to an overactive bladder. Treatment for overactive bladder depends on the cause and severity of your condition. Making lifestyle changes, doing Kegel exercises, keeping a log, and taking medicines can help with this condition. This information is not intended to replace advice given to you by your health care provider. Make sure you discuss any questions you have with your health care provider. Document Revised: 01/26/2021 Document Reviewed: 01/26/2021 [employer] Patient Education 2022 [employer]. Follow Up Care 09/14/2023 15:07:45 With:JUANITO BREWER, NGA Freedman, URL Address: [address] [place], [place] [address]Danna [place] [address] When:Within 1 Week(s) [facility] Raiza 11-21-2023 Note Patient Education Obstetrics and Gynecology Overactive Bladder, Adult Overactive bladder is a condition in which a person has a sudden and frequent need to urinate. A person might also leak urine if he or she cannot get to the bathroom fast enough (urinary incontinence). Sometimes, symptoms can interfere with work or social activities. What are the causes? Overactive bladder is associated with poor nerve signals between your bladder and your brain. Your bladder may get the signal to empty before it is full. You may also have very sensitive muscles that make your bladder squeeze too soon. This condition may also be caused by other factors, such as: ? Medical conditions: ? Urinary tract infection. ? Infection of nearby tissues. ? Prostate enlargement. ? Bladder stones, inflammation, or tumors. ? Diabetes. ? Muscle or nerve weakness, especially from these conditions: ? A spinal cord injury. ? Stroke. ? Multiple sclerosis. ? Parkinson's disease. ? Other causes: ? Surgery on the uterus or urethra. ? Drinking too much caffeine or alcohol. ? Certain medicines, especially those that eliminate extra fluid in the body (diuretics). ? Constipation. What increases the risk? You may be at greater risk for overactive bladder if you: ? Are an older adult. ? Smoke. ? Are going through menopause. ? Have prostate problems. ? Have a neurological disease, such as stroke, dementia, Parkinson's disease, or multiple sclerosis (MS). ? Eat or drink alcohol, spicy food, caffeine, and other things that irritate the bladder. ? Are overweight or obese. What are the signs or symptoms? Symptoms of this condition include a sudden, strong urge to urinate. Other symptoms include: ? Leaking urine. ? Urinating 8 or more times a day. ? Waking up to urinate 2 or more times overnight. How is this diagnosed? This condition may be diagnosed based on: ? Your symptoms and medical history. ? A physical exam. ? Blood or urine tests to check for possible causes, such as infection. You may also need to see a health care provider who specializes in urinary tract problems. This is called a urologist. How is this treated? Treatment for overactive bladder depends on the cause of your condition and whether it is mild or severe. Treatment may include: ? Bladder training, such as: ? Learning to control the urge to urinate by following a schedule to urinate at regular intervals. ? Doing Kegel exercises to strengthen the pelvic floor muscles that support your bladder. ? Special devices, such as: ? Biofeedback. This uses sensors to help you become aware of your body's signals. ? Electrical stimulation. This uses electrodes placed inside the body (implanted) or outside the body. These electrodes send gentle pulses of electricity to strengthen the nerves or muscles that control the bladder. ? Women may use a plastic device, called a pessary, that fits into the vagina and supports the bladder. ? Medicines, such as: ? Antibiotics to treat bladder infection. ? Antispasmodics to stop the bladder from releasing urine at the wrong time. ? Tricyclic antidepressants to relax bladder muscles. ? Injections of botulinum toxin type A directly into the bladder tissue to relax bladder muscles. ? Surgery, such as: ? A device may be implanted to help manage the nerve signals that control urination. ? An electrode may be implanted to stimulate electrical signals in the bladder. ? A procedure may be done to change the shape of the bladder. This is done only in very severe cases. Follow these instructions at home: Eating and drinking ? Make diet or lifestyle changes recommended by your health care provider. These may include: ? Drinking fluids throughout the day and not only with meals. ? Cutting down on caffeine or alcohol. ? Eating a healthy and balanced diet to prevent constipation. This may include: ? Choosing foods that are high in fiber, such as beans, whole grains, and fresh fruits and vegetables. ? Limiting foods that are high in fat and processed sugars, such as fried and sweet foods. Lifestyle ? Lose weight if needed. ? Do not use any products that contain nicotine or tobacco. These include cigarettes, chewing tobacco, and vaping devices, such as e-cigarettes. If you need help quitting, ask your health care provider. General instructions ? Take qffp-czg-attemge and prescription medicines only as told by your health care provider. ? If you were prescribed an antibiotic medicine, take it as told by your health care provider. Do not stop taking the antibiotic even if you start to feel better. ? Use any implants or pessary as told by your health care provider. ? If needed, wear pads to absorb urine leakage. ? Keep a log to track how much and when you drink, and when you need to urinate. This will help your health care (more content not included)... [facility] 11-14-2023 Hospital Discharge instructions Patient Education 11/14/2023 12:42:06 Overactive Bladder, Adult Overactive Bladder, Adult Overactive bladder is a condition in which a person has a sudden and frequent need to urinate. A person might also leak urine if he or she cannot get to the bathroom fast enough (urinary incontinence). Sometimes, symptoms can interfere with work or social activities. What are the causes? Overactive bladder is associated with poor nerve signals between your bladder and your brain. Your bladder may get the signal to empty before it is full. You may also have very sensitive muscles that make your bladder squeeze too soon. This condition may also be caused by other factors, such as: Medical conditions: ?Urinary tract infection. ?Infection of nearby tissues. ?Prostate enlargement. ?Bladder stones, inflammation, or tumors. ?Diabetes. ?Muscle or nerve weakness, especially from these conditions: ?A spinal cord injury. ?Stroke. ?Multiple sclerosis. ?Parkinson's disease. Other causes: ?Surgery on the uterus or urethra. ?Drinking too much caffeine or alcohol. ?Certain medicines, especially those that eliminate extra fluid in the body (diuretics). ?Constipation. What increases the risk? You may be at greater risk for overactive bladder if you: Are an older adult. Smoke. Are going through menopause. Have prostate problems. Have a neurological disease, such as stroke, dementia, Parkinson's disease, or multiple sclerosis (MS). Eat or drink alcohol, spicy food, caffeine, and other things that irritate the bladder. Are overweight or obese. What are the signs or symptoms? Symptoms of this condition include a sudden, strong urge to urinate. Other symptoms include: Leaking urine. Urinating 8 or more times a day. Waking up to urinate 2 or more times overnight. How is this diagnosed? This condition may be diagnosed based on: Your symptoms and medical history. A physical exam. Blood or urine tests to check for possible causes, such as infection. You may also need to see a health care provider who specializes in urinary tract problems. This is called a urologist. How is this treated? Treatment for overactive bladder depends on the cause of your condition and whether it is mild or severe. Treatment may include: Bladder training, such as: ?Learning to control the urge to urinate by following a schedule to urinate at regular intervals. ?Doing Kegel exercises to strengthen the pelvic floor muscles that support your bladder. Special devices, such as: ?Biofeedback. This uses sensors to help you become aware of your body's signals. ?Electrical stimulation. This uses electrodes placed inside the body (implanted) or outside the body. These electrodes send gentle pulses of electricity to strengthen the nerves or muscles that control the bladder. ?Women may use a plastic device, called a pessary, that fits into the vagina and supports the bladder. Medicines, such as: ?Antibiotics to treat bladder infection. ?Antispasmodics to stop the bladder from releasing urine at the wrong time. ?Tricyclic antidepressants to relax bladder muscles. ?Injections of botulinum toxin type A directly into the bladder tissue to relax bladder muscles. Surgery, such as: ?A device may be implanted to help manage the nerve signals that control urination. ?An electrode may be implanted to stimulate electrical signals in the bladder. ?A procedure may be done to change the shape of the bladder. This is done only in very severe cases. Follow these instructions at home: Eating and drinking Make diet or lifestyle changes recommended by your health care provider. These may include: ?Drinking fluids throughout the day and not only with meals. ?Cutting down on caffeine or alcohol. ?Eating a healthy and balanced diet to prevent constipation. This may include: ?Choosing foods that are high in fiber, such as beans, whole grains, and fresh fruits and vegetables. ?Limiting foods that are high in fat and processed sugars, such as fried and sweet foods. Lifestyle Lose weight if needed. Do not use any products that contain nicotine or tobacco. These include cigarettes, chewing tobacco, and vaping devices, such as e-cigarettes. If you need help quitting, ask your health care provider. General instructions Take ichq-jlz-pinoueh and prescription medicines only as told by your health care provider. If you were prescribed an antibiotic medicine, take it as told by your health care provider. Do not stop taking the antibiotic even if you start to feel better. Use any implants or pessary as told by your health care provider. If needed, wear pads to absorb urine leakage. Keep a log to track how much and when you drink, and when you need to urinate. This will help your health care provider monitor your condition. Keep all follow-up visits. This is important. Contact a health care provider if: You have a fever or chills. Your symptoms do not get better with treatment. Your pain and discomfort get worse. You have more frequent urges to urinate. Get help right away if: You are not able to control your bladder. Summary Overactive bladder refers to a condition in which a person has a sudden and frequent need to urinate. Several conditions may lead to an overactive bladder. Treatment for overactive bladder depends on the cause and severity of your condition. Making lifestyle changes, doing Kegel exercises, keeping a log, and taking medicines can help with this condition. This information is not intended to replace advice given to you by your health care provider. Make sure you discuss any questions you have with your health care provider. Document Revised: 01/26/2021 Document Reviewed: 01/26/2021 [employer] Patient Education 2022 [employer]. Follow Up Care 09/14/2023 15:06:58 With:JUANITO BREWER, NGA Freedman, URL Address: [address] [place] [address] When:Within 1 Week(s) [facility] Raiza 08-02-2023 Note [facility] Electrophysiology Consult Note Reason for visit: postural dizziness/ palpitations HPI: Renetta Barbosa is a 63 y.o. year old with past medical history of Dizziness, urinary incontinence, hypertension, COPD, frequent falls, dm2 on insulin. MENDEZ, hypothyroid. Patient referred to cardiology clinic by PCP for dizziness. she was given a holter monitor for dizziness, has not had any palpitations She had 1 syncopal episode when she was 28 years old when she was at a grocery store and was never evaluated for it, she has had no syncopal episodes since. Her postural dizziness started several months ago and seem to improve when she cut back on caffeine and improved hydration; she was drinking more than 1 pot of coffee a day, she states she used to count how much coffee she drinks in a day per pot of coffee but now drinks about 3 to 4 cups she does not experience any palpitations with her postural dizziness. She says her lightheadedness isn't as often. Denies chest pain, palpitations, and lightheadedness/syncope. She has felt better with control of her BS. She continues to smoke and has a 50yr smoking history. 30d event monitor reveale dnon sustained AT and occ PVC. No AF/ VT Holter 03/2023 showed no significant rhythm she had some short runs of SVT for 5 beats and this only occurred twice and does not appear patient is symptomatic of TTE showed normal LVEF 65 to 70%, no significant valvular abnormalities, mildly increased LVH PMH: Past Medical History: Diagnosis Date COPD (chronic obstructive pulmonary disease) (CMS/HCC) Diabetes mellitus (CMS/HCC) Hyperlipidemia Hypertension MENDEZ (nonalcoholic steatohepatitis) PSH: Past Surgical History: Procedure Laterality Date SECTION, CLASSIC CHOLECYSTECTOMY TONSILLECTOMY TUBAL LIGATION SH: Social Determinants of Health Tobacco Use: High Risk (06/21/2023) Patient History Smoking Tobacco Use: Every Day Smokeless Tobacco Use: Never Passive Exposure: Not on file Alcohol Use: Not on file Financial Resource Strain: Not on file Food Insecurity: Not on file Transportation Needs: Not on file Physical Activity: Not on file Stress: Not on file Social Connections: Not on file Intimate Partner Violence: Unknown (07/15/2023) [place] Safety & Environment Fear of Current or Ex-Partner: Not on file Emotionally Abused: Not on file Physically Abused: Not on file Sexually Abused: Not on file Physically or Sexually Abused: Not on file Depression: Not on file Housing Stability: Not on file Utilities: Not on file Allergies: Allergies Allergen Reactions Capsaicin Trazodone Weight: 91.6kg Visit Vitals BP 158/85 (BP Location: Left arm, Patient Position: Sitting) Pulse 93 Ht 1.575 m (5' 2 ) Wt 91.6 kg (202 lb) SpO2 96% BMI 36.95 kg/m??? Smoking Status Every Day BSA 2 m??? Meds: Current Outpatient Medications on File Prior to Visit Medication Sig Dispense Refill ifzulsinvz-wtghmcew-goydtrgpxd (Breztri Aerosphere) 160-9-4.8 mcg/actuation HFA aerosol inhaler INHALE 2 PUFFS TWICE A DAY DIRECTED for 30 cevimeline (Evoxac) 30 mg capsule 1 capsule every 8 (eight) hours. cholecalciferol, vitamin D3, 25 mcg (1,000 unit) tablet,chewable 1 (one) time each day at the same time. dulaglutide (Trulicity) 3 mg/0.5 mL pen injector as directed Subcutaneous estradiol (Vagifem) 10 mcg tablet vaginal tablet 1 tablet orally twice weekly gabapentin (Neurontin) 300 mg capsule Take 300 mg by mouth in the morning. insulin regular (HumuLIN R U-500, Conc, Kwikpen) 500 unit/mL (3 mL) CONCENTRATED injection pen 85 units in morning 85 in afternoon 20 in evening Jardiance 25 mg Take 25 mg by mouth in the morning. levothyroxine (Synthroid, Levoxyl) 150 mcg tablet Take 150 mcg by mouth in the morning. losartan (Cozaar) 25 mg tablet 25 mg 1 (one) time each day. pantoprazole (ProtoNix) 40 mg EC tablet TAKE 1 TABLET BY MOUTH TWICE A DAY for 90 pravastatin (Pravachol) 40 mg tablet Take 40 mg by mouth at bedtime. primidone (Mysoline) 50 mg tablet Take 100 mg by mouth in the morning and at bedtime. venlafaxine XR (Effexor-XR) 150 mg 24 hr capsule Take 150 mg by mouth in the morning. buPROPion XL (Wellbutrin XL) 300 mg 24 hr tablet Take 300 mg by mouth in the morning. busPIRone (Buspar) 15 mg tablet Take 15 mg by mouth in the morning and at bedtime. No current facility-administered medications on file prior to visit. ROS: Review of Systems Constitutional: Positive for malaise/fatigue. Cardiovascular: Positive for dyspnea on exertion. Musculoskeletal: Positive for muscle cramps and myalgias. Neurological: Positive for headaches and light-headedness. All other systems reviewed and are negative. Physical Exam: Constitutional General Appearance: well-nourished, well-developed, appears stated age Level of Distress: comfortable Psychiatric Mental Status: alert, normal affect Orientation: oriented to time, prasanna (more content not included)... [facility] 06-23-2023 Note HNO ID: [id number] Author: ANDRE FUNES MD Service: ? Author Type: Physician Type: Progress Notes Filed: 06/26/2023 13:35 Note Text: NAME: Renetta Barbosa CLINIC NO.: [id number] DATE OF SERVICE: June 23, 2023 (Chichi) Some elements in this clinic note that are critical to medical decision making have been carefully reviewed and included from a prior clinic note dated: June 25, 2022 (Chichi) Referring Provider: Shakira Higgins CNP Additional Clinicians involved in Renetta Barbosa's care: Boris Miguel, Leonardo Sung, Benjamin Del Toro CC: thrombocytopenia ASSESSMENT: This is a 63 year old woman with thrombocytopenia that is most likely caused by nonalcoholic steatohepatitis with resultant hypersplenism and possibly cirrhosis. Her platelet counts have been stable for many years but seem to be declining just a little bit on recent laboratories. Recheck today indicates that she is back to her stable baseline near the 130s. Outside imaging demonstrates cirrhotic liver with splenomegaly and multiple accessory spleens. Needs HCC screening PLAN: Need US results from [facility] from last week. Recommend alternating follow up and evaluation with her PCP. Will need CBC, CMP, Iron studies, AFP and US Liver q 6 months I will see her for the same in 12 months Consider IV iron in future if she becomes anemic - did not tolerate oral iron RTC in 12 months labs same day. Include AFP US Liver prior to return ____ HPI: CASE HISTORY: Reverse Chronological Order 06/10/2022 - US RUQ: The liver is enlarged measuring 23cm. There is heterogeneity of echotexture of the liver along with slight nodularity of the liver surface suggesting diffuse hepatocellular disease such and cirrhosis. No discrete masses were noted. Gallbladder is absent. The remainder the right upper quadrant was unremarkable. US Spleen: Spleen is slightly enlarged measuring 12 x 13.2 x 5.3cm. no masses noted. 11/25/2021 - US RUQ: Slightly nodular liver margins suggestive of cirrhosis. No free fluid. 10/10/2020 - hemorrhoidectomy 07/29/2020 - her platelet count dropped little bit further to 116 08/22/2018 - US Hepatic Echogram: Increased hepatic echogenicity suggesting hepatocellular disease. (Previous US Hepatic- 07/08/2018, 12/21/2017, 11/30/2016, 08/16/2014 results scanned) 04/20/2017 - CT Abdomen: Configuration of liver suggests cirrhosis. No focal hepatic lesion identified. Splenomegaly with multiple accessory spleens. Nonspecific periportal and celiac adenopathy appears slightly more prominent than in 2013. Status post cholecystectomy. Small left renal cyst. 2016 - Dx'd with MENDEZ 09/26/2014 - MRI Abdomen: Hepatosplenomegaly similar to the prior studies.Mild diffuse hepatic steatosis. Fine reticular pattern of hyperdensity on T2 weighted imaging which may be related to early fibrosis.Visualized subcutaneous tissues are unremarkable specifically the abnormality seen on ultrasound is not reproduced. 08/28/2012 - platelets 141 Updated Visit, June 23, 2023: Renetta returns today. She is not anemic, reports no bleeding. Following with GI, she has no pain on the sides of her stomach with Gas-X. Ordered US for 1 year. Updated Visit, June 25, 2022: Renetta returns today in follow up. US in [facility] with enlarged nodular liver no masses. She is using CPAP but doesn't feel too much better quite yet. Labs are stable. Updated Visit, December 17, 2021: Still not tolerant to oral iron due to severe constipation. No evidence of HCC to date. Labs stable. No need to intervene for anemia at this time. Will need ongoing HCC screening. Updated Visit, June 11, 2021: Fatoumata returns 6 months after her last visit. Doing well. Didn't start iron and hgb has improved, so probably ok. All other labs stable. Updated Visit, December 10, 2020: Renetta is 60 years old and returns today for history of chronic thrombocytopenia due to Mendez. Since her last visit she saw Dr. Sung and completed a hemorrhoidectomy on 10/10/2020. Since then she has been off of her iron in order to avoid constipation. She also had imaging that demonstrated a cirrhotic liver with splenomegaly and multiple accessory spleens. Her laboratories are stable and she remains largely asymptomatic. I explained carefully the relationship between splenomegaly, liver disease and her current laboratory findings of thrombocytopenia. Updated Visit, September 10, 2020: Renetta Barbosa returns for follow-up. Since her last visit there has been no significant medical changes. She was started on a pill for yeast infection to be taken once daily. The yeast involves her groin folds. She remains on 2 oral iron pills daily. She does state that the iron pills cause some constipation and GI upset. Additional labs, including iron studies have been drawn at [facility]. She states that (more content not included)... [facility] 06-23-2023 Instructions Chely Duarte - 06/23/2023 2:19 PM EST Need US results from [facility] from last week. Recommend alternating follow up and evaluation with her PCP. Will need CBC, CMP, Iron studies, AFP and US Liver q 6 months I will see her for the same in 12 months Consider IV iron in future if she becomes anemic - did not tolerate oral iron RTC in 12 months labs same day. Include AFP US Liver prior to return documented in this encounter [facility] 06-23-2023 History of Present illness Narrative Images from the original note were not included. NAME: Renetta Barbosa [place] [facility] NO.: [id number] DATE OF SERVICE: June 23, 2023 (Chichi) Some elements in this clinic note that are critical to medical decision making have been carefully reviewed and included from a prior clinic note dated: June 25, 2022 (Chichi) Referring Provider: Shakira Higgins CNP Additional Clinicians involved in Renetta Barbosa's care: Boris Miguel, Leonardo Sung, Benjamin Del Toro CC: thrombocytopenia ASSESSMENT: This is a 63 year old woman with thrombocytopenia that is most likely caused by nonalcoholic steatohepatitis with resultant hypersplenism and possibly cirrhosis. Her platelet counts have been stable for many years but seem to be declining just a little bit on recent laboratories. Recheck today indicates that she is back to her stable baseline near the 130s. Outside imaging demonstrates cirrhotic liver with splenomegaly and multiple accessory spleens. Needs HCC screening PLAN: Need US results from [facility] from last week. Recommend alternating follow up and evaluation with her PCP. Will need CBC, CMP, Iron studies, AFP and US Liver q 6 months I will see her for the same in 12 months Consider IV iron in future if she becomes anemic - did not tolerate oral iron RTC in 12 months labs same day. Include AFP US Liver prior to return HPI: CASE HISTORY: Reverse Chronological Order 06/10/2022 - US RUQ: The liver is enlarged measuring 23cm. There is heterogeneity of echotexture of the liver along with slight nodularity of the liver surface suggesting diffuse hepatocellular disease such and cirrhosis. No discrete masses were noted. Gallbladder is absent. The remainder the right upper quadrant was unremarkable. US Spleen: Spleen is slightly enlarged measuring 12 x 13.2 x 5.3cm. no masses noted. 11/25/2021 - US RUQ: Slightly nodular liver margins suggestive of cirrhosis. No free fluid. 10/10/2020 - hemorrhoidectomy 07/29/2020 - her platelet count dropped little bit further to 116 08/22/2018 - US Hepatic Echogram: Increased hepatic echogenicity suggesting hepatocellular disease. (Previous US Hepatic- 07/08/2018, 12/21/2017, 11/30/2016, 08/16/2014 results scanned) 04/20/2017 - CT Abdomen: Configuration of liver suggests cirrhosis. No focal hepatic lesion identified. Splenomegaly with multiple accessory spleens. Nonspecific periportal and celiac adenopathy appears slightly more prominent than in 2013. Status post cholecystectomy. Small left renal cyst. 2016 - Dx'd with MENDEZ 09/26/2014 - MRI Abdomen: Hepatosplenomegaly similar to the prior studies.Mild diffuse hepatic steatosis. Fine reticular pattern of hyperdensity on T2 weighted imaging which may be related to early fibrosis.Visualized subcutaneous tissues are unremarkable specifically the abnormality seen on ultrasound is not reproduced. 08/28/2012 - platelets 141 Updated Visit, June 23, 2023: Renetta returns today. She is not anemic, reports no bleeding. Following with GI, she has no pain on the sides of her stomach with Gas-X. Ordered US for 1 year. Updated Visit, June 25, 2022: Renetta returns today in follow up. US in [facility] with enlarged nodular liver no masses. She is using CPAP but doesn't feel too much better quite yet. Labs are stable. Updated Visit, December 17, 2021: Still not tolerant to oral iron due to severe constipation. No evidence of HCC to date. Labs stable. No need to intervene for anemia at this time. Will need ongoing HCC screening. Updated Visit, June 11, 2021: Fatoumata returns 6 months after her last visit. Doing well. Didn't start iron and hgb has improved, so probably ok. All other labs stable. Updated Visit, December 10, 2020: Renetta is 60 years old and returns today for history of chronic thrombocytopenia due to Mendez. Since her last visit she saw Dr. Sung and completed a hemorrhoidectomy on 10/10/2020. Since then she has been off of her iron in order to avoid constipation. She also had imaging that demonstrated a cirrhotic liver with splenomegaly and multiple accessory spleens. Her laboratories are stable and she remains largely asymptomatic. I explained carefully the relationship between splenomegaly, liver disease and her current laboratory findings of thrombocytopenia. Updated Visit, September 10, 2020: Renetta Barbosa returns for follow-up. Since her last visit there has been no significant medical changes. She was started on a pill for yeast infection to be taken once daily. The yeast involves her groin folds. She remains on 2 oral iron pills daily. She does state that the iron pills cause some constipation and GI upset. Additional labs, including iron studies have been drawn at [facility]. She states that she has bleeding hemorrhoids. Otherwise no signs of bleeding. She has chronic abdominal fullness. She is on CPAP and she believes the setting is 9. Initial Visit, August 06, 2020: Renetta is a 60-year-old woman with multiple medical problems including morbid obesity, poorly controlled diabetes, sleep apnea as well as thrombocytopenia that has been fairly chronic. She has been monitored with laboratories dating back to January 2020 with a platelet count of approximately 130,000. The stated fairly stable until July 29, 2020 her platelet count dropped little bit further to 116. She had been off of her CPAP for approximately 1 year but recently got a new one and has been back on for the past 2 months. This may be contributing factor to her thrombocytopenia. She also reveals that she has a history of MENDEZ that was diagnosed approximately 5 years ago. She has had work-up with CT scans and ultrasounds from [facility]. I was also able to review records from care everywhere dating back to August 2012 and note that her platelet count was also low at that time, specifically, 08/28/2012 platelets 141. Aside from pronounced fatigue and daytime somnolence, obesity, joint aches and pains, she has no sequelae of thrombocytopenia. I counseled her regarding her diabetes as well as her weight management with respect to MENDEZ which is probably resulted in hypersplenism and/or cirrhosis of the liver. REVIEW OF SYSTEMS Per HPI and otherwise negative by full review of organ systems. ECOG PERFORMANCE STATUS: 1 PHYSICAL EXAMINATION: Vitals: BP 149/93 Pulse 107 Temp (Src) 97.6 (Temporal) Resp 18 Ht 5' 2.008 (1.58m) Wt 200 lb 13.4 oz (91.1kg) SpO2 94% BMI 36.72 kg/(m^2). Body surface area is 2 meters squared. Exam limited to gross visualization where appropriate. Gen.: This is an age-appropriate patient in no acute distress. Head: Appears atraumatic with no visible lesions. Eyes: Pupils equally round and reactive to light, extraocular muscles are intact. Neck: Supple. Respiratory: Appears to be respiring comfortably. Neurologic: Nonfocal to gross visualization. Alert and oriented 3. Psychiatric: No evidence of inappropriate anxiety or depression. Skin: Visible areas of skin without rash, lesions, wounds or petechiae. ALLERGIES: ALLERGIES No Known Allergies MEDICATIONS: BREZTRI AEROSPHERE 160-9-4.8 mcg/actuation HFA aerosol inhaler INHALE 2 PUFFS TWICE A DAY DIRECTED 30 losartan (COZAAR) 25 mg tablet Take 1 tablet by mouth every afternoon. pravastatin (PRAVACHOL) 40 mg tablet Take 40 mg by mouth daily at bedtime. PRIMIDONE ORAL Take 2 tablets by mouth every 12 hours. venlafaxine ER (EFFEXOR XR) 150 mg 24 hr capsule Take 150 mg by mouth once daily. busPIRone (BUSPAR) 15 mg tablet Take 15 mg by mouth twice daily as needed. pantoprazole DR (PROTONIX) 40 mg tablet Take 40 mg by mouth once daily. gabapentin (NEURONTIN) 300 mg capsule Take 300 mg by mouth daily at bedtime. Estradiol (VAGIFEM) 10 mcg vaginal tablet Use 10 mcg vaginally two times a week. buPROPion XL (WELLBUTRIN XL) 300 mg 24 hr tablet Take 300 mg by mouth once daily. fluticasone (FLONASE) 50 mcg/actuation nasal spray Use 1 Pollock in each nostril as needed. furosemide (LASIX) 40 mg tablet Take 40 mg by mouth once daily. levothyroxine (SYNTHROID) 150 mcg tablet Take 150 mcg by mouth once daily. insulin regular, human (HUMULIN R U-500, CONC, KWIKPEN SUBCUTANEOUS) Inject subcutaneously. TRULICITY 1.5 mg/0.5 mL pen injector INJECT SUBCUTANEOUSLY ONCE A WEEK cycloSPORINE (RESTASIS MULTIDOSE) 0.05 % drop Use 1 Drop in both eyes twice daily. diclofenac (VOLTAREN) 1 % topical gel Apply to affected area four times daily. cyanocobalamin, vitamin B-12, (VITAMIN B12 ORAL) Take 1,000 mcg by mouth once daily. cholecalciferol, vitamin D3, (VITAMIN D3 ORAL) Take by mouth once daily. CALCIUM ORAL Take by mouth once daily. dicyclomine (BENTYL) 10 mg capsule Take 10 mg by mouth four times daily. FREESTYLE JEANNE 2 SENSOR kit bisacodyl EC (DULCOLAX) 5 mg EC tablet Take 20 mg by mouth. cephALEXin (KEFLEX) 500 mg capsule (Patient not taking: Reported on 06/23/2023) mupirocin (BACTROBAN) 2 % ointment ondansetron (ZOFRAN) 4 mg tablet Take 4 mg by mouth every 6 hours as needed. SPIRIVA RESPIMAT 2.5 mcg/actuation inhaler INHALE 2 PUFFS BY MOUTH EVERYDAY metFORMIN (GLUCOPHAGE) 1,000 mg tablet traZODone (DESYREL) 50 mg tablet TAKE 1 TABLET BY MOUTH EVERYDAY AT BEDTIME ferrous sulfate 325 mg (65 mg iron) tablet Take 1 tablet by mouth twice daily. fluconazole (DIFLUCAN) 150 mg tablet TAKE 1 TABLET EVERY 72 HOURS UNTIL SYMPTOMS IMPROVE (MAX 2WK) THEN 1 TABLET ONCE WEEKLY FOR 12 WEEKS (Patient not taking: Reported on 06/23/2023) hydrocortisone (ANUSOL-HC) 2.5 % rectal cream APPLY RECTALLY TWICE DAILY FOR 10 DAYS albuterol HFA 90 mcg/actuation HFA Inhale 2 Puffs as instructed as needed. (Patient not taking: Reported on 06/23/2023) CICLOPIROX TOPICAL Apply to affected area. atorvastatin (LIPITOR) 40 mg tablet Take 40 mg by mouth once daily. LABORATORY VALUES: Hemoglobin (g/dL) Date Value 06/23/2023 13.7 06/11/2021 13.4 Hematocrit (%) Date Value 06/23/2023 43.6 06/11/2021 43.3 WBC (k/uL) Date Value 06/23/2023 5.95 06/11/2021 5.41 Platelet Count (k/uL) Date Value 06/23/2023 140 06/11/2021 142 DIAGNOSIS: (K75.81) MENDEZ (nonalcoholic steatohepatitis) (primary encounter diagnosis) Plan: ALPHA FETOPROTEIN BL, CBC + DIFF, COMP METABOLIC PANEL, IRON + TIBC, FERRITIN BLD, VITAMIN B12 BLOOD, FOLATE SERUM (K74.60) 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) Plan: ALPHA FETOPROTEIN BL, CBC + DIFF, COMP METABOLIC PANEL, IRON + TIBC, FERRITIN BLD, VITAMIN B12 BLOOD, FOLATE SERUM (D69.59, D73.1) Thrombocytopenia due to hypersplenism Plan: ALPHA FETOPROTEIN BL, CBC + DIFF, COMP METABOLIC PANEL, IRON + TIBC, FERRITIN BLD, VITAMIN B12 BLOOD, FOLATE SERUM PAST MEDICAL HISTORY Diagnosis Date COPD (chronic obstructive pulmonary disease) (HCC) Diabetes mellitus (HCC) type GERD (gastroesophageal reflux disease) PAST SURGICAL HISTORY Procedure Laterality Date SNGL LIGATE FALLOPIAN TUBE TONSILLECTOMY & ADENOIDECTOMY <AGE 12 Social History Tobacco Use Smoking status: Every Day Packs/day: .5 Types: Cigarettes Passive exposure: Current Smokeless tobacco: Never Vaping Use Vaping Use: Never used Substance Use Topics Alcohol use: Not Currently Drug use: Not Currently FAMILY HISTORY Problem Relation Age of Onset Diabetes Mother Kidney Disease Mother Lung Cancer Father Arthritis Sister Breast Cancer Maternal Grandmother I spent a total of 20 minutes on the date of the service which included preparing to see the patient, [id number] patient care, completing clinical documentation, performing a medically appropriate examination and ordering medications, tests, or procedures. Andre Funes MD, CPE [facility] Provided at: [place], [place] Scribe Attestation: This note was scribed by Chely Duarte on June 23, 2023 under the direction and supervision of Dr. Andre Funes. I attest that all of the information documented is correct to the best of my knowledge. Provider Attestation: I, Andre Funes MD, attest that all information documented by the above scribe is correct, and was supervised by me and under my direction. CC: Shakira Higgins CNP [address] [facility] [id number] documented in this encounter [facility] 06-21-2023 Note New patient here to establish care. Ref from Shakira Higgins CNP for dizziness and arrhythmia. Wore Holter monitor and had echo in Feb 2023. She states she has lasix 40mg tablets but doesn't take them anymore because she hasn't been swelling. Smokes 1 PPD. C/o muscle cramps at night in RLE. Says her lightheadedness isn't as bad. She denies chest pain, but does get winded with exertion. Review of Systems Constitutional: Positive for malaise/fatigue. Cardiovascular: Positive for dyspnea on exertion. Musculoskeletal: Positive for muscle cramps and myalgias. Neurological: Positive for headaches and light-headedness. All other systems reviewed and are negative. [facility] 06-21-2023 Note [facility]rophys[facility] Consult Note Reason for visit: postural dizziness HPI: Renetta Barbosa is a 63 y.o. year old with past medical history of Dizziness, urinary incontinence, hypertension, COPD, frequent falls, dm2 on insulin. MENDEZ, hypothyroid. Patient referred to cardiology clinic by PCP for dizziness she was given a holter monitor for dizziness, has not had any palpitations she had 1 syncopal episode when she was 28 years old when she was at a grocery store and was never evaluated for it, she has had no syncopal episodes since Holter 03/2023 showed no significant rhythm she had some short runs of SVT for 5 beats and this only occurred twice and does not appear patient is symptomatic of TTE showed normal LVEF 65 to 70%, no significant valvular abnormalities, mildly increased LVH Her postural dizziness started several months ago and seem to improve when she cut back on caffeine and improved hydration; she was drinking more than 1 pot of coffee a day, she states she used to count how much coffee she drinks in a day per pot of coffee but now drinks about 3 to 4 cups she does not experience any palpitations with her postural dizziness PMH: Past Medical History: Diagnosis Date COPD (chronic obstructive pulmonary disease) (CMS/HCC) Diabetes mellitus (CMS/HCC) Hyperlipidemia Hypertension MENDEZ (nonalcoholic steatohepatitis) PSH: Past Surgical History: Procedure Laterality Date SECTION, CLASSIC CHOLECYSTECTOMY TONSILLECTOMY TUBAL LIGATION SH: Social Determinants of Health Tobacco Use: High Risk (06/21/2023) Patient History Smoking Tobacco Use: Every Day Smokeless Tobacco Use: Never Passive Exposure: Not on file Alcohol Use: Not on file Financial Resource Strain: Not on file Food Insecurity: Not on file Transportation Needs: Not on file Physical Activity: Not on file Stress: Not on file Social Connections: Not on file Intimate Partner Violence: Unknown (06/21/2023) [place] Safety & Environment Fear of Current or Ex-Partner: Not on file Emotionally Abused: Not on file Physically Abused: Not on file Sexually Abused: Not on file Physically or Sexually Abused: Not on file Depression: Not on file Housing Stability: Not on file Utilities: Not on file Allergies: Allergies Allergen Reactions Capsaicin Trazodone Weight: 92.1kg Visit Vitals Pulse 94 Ht 1.575 m (5' 2 ) Wt 92.1 kg (203 lb) SpO2 98% BMI 37.13 kg/m??? Smoking Status Every Day BSA 2.01 m??? Meds: Current Outpatient Medications on File Prior to Visit Medication Sig Dispense Refill [id number]-[id number]-[id number] (Breztri Aerosphere) 160-9-4.8 mcg/actuation HFA aerosol inhaler INHALE 2 PUFFS TWICE A DAY DIRECTED for 30 buPROPion XL (Wellbutrin XL) 300 mg 24 hr tablet Take 300 mg by mouth in the morning. busPIRone (Buspar) 15 mg tablet Take 15 mg by mouth in the morning and at bedtime. cevimeline (Evoxac) 30 mg capsule 1 capsule every 8 (eight) hours. cholecalciferol, vitamin D3, 25 mcg (1,000 unit) tablet,chewable 1 (one) time each day at the same time. dulaglutide (Trulicity) 3 mg/0.5 mL pen injector as directed Subcutaneous estradiol (Vagifem) 10 mcg tablet vaginal tablet 1 tablet orally twice weekly gabapentin (Neurontin) 300 mg capsule Take 300 mg by mouth in the morning. insulin regular (HumuLIN R U-500, Conc, Kwikpen) 500 unit/mL (3 mL) CONCENTRATED injection pen 85 units in morning 85 in afternoon 20 in evening levothyroxine (Synthroid, Levoxyl) 150 mcg tablet Take 150 mcg by mouth in the morning. losartan (Cozaar) 25 mg tablet 25 mg 1 (one) time each day. pantoprazole (ProtoNix) 40 mg EC tablet TAKE 1 TABLET BY MOUTH TWICE A DAY for 90 pravastatin (Pravachol) 40 mg tablet Take 40 mg by mouth at bedtime. primidone (Mysoline) 50 mg tablet Take 100 mg by mouth in the morning and at bedtime. venlafaxine XR (Effexor-XR) 150 mg 24 hr capsule Take 150 mg by mouth in the morning. No current facility-administered medications on file prior to visit. ROS: Cardio Basic Cardiovascular Symptoms: no lightheadedness, no leg edema, no syncope, no orthopnea, no PND, no claudication, Constitutional Constitutional: no fever, no night sweats, no significant weight gain, no significant weight loss, no exercise intolerance Eyes Eyes: no dry eyes, no irritation, no vision change ENMT Ears: no difficulty hearing, no ear pain Nose: no frequent nosebleeds, Mouth/Throat: no sore throat, no bleeding gums, no snoring, no dry mouth, no mouth ulcers, no oral abnormalities, no teeth problems Respiratory Respiratory: no cough, no wheezing, no coughing up blood, no sleep apnea Musculoskeletal Musculoskeletal: no muscle aches, no muscle weakness, joint pain+, no back pain, no swelling in the extremities Integumentary Skin no rash, no ulcer, no varicosities, no discoloration, no pruritus Neurologic Neurologic: no loss of consciousness, no weakness, (more content not included)... [facility] 05-03-2023 Hospital Discharge instructions Patient Education 05/03/2023 11:29:53 Overactive Bladder, Adult Overactive Bladder, Adult Overactive bladder is a condition in which a person has a sudden and frequent need to urinate. A person might also leak urine if he or she cannot get to the bathroom fast enough (urinary incontinence). Sometimes, symptoms can interfere with work or social activities. What are the causes? Overactive bladder is associated with poor nerve signals between your bladder and your brain. Your bladder may get the signal to empty before it is full. You may also have very sensitive muscles that make your bladder squeeze too soon. This condition may also be caused by other factors, such as: Medical conditions: ?Urinary tract infection. ?Infection of nearby tissues. ?Prostate enlargement. ?Bladder stones, inflammation, or tumors. ?Diabetes. ?Muscle or nerve weakness, especially from these conditions: ?A spinal cord injury. ?Stroke. ?Multiple sclerosis. ?Parkinson's disease. Other causes: ?Surgery on the uterus or urethra. ?Drinking too much caffeine or alcohol. ?Certain medicines, especially those that eliminate extra fluid in the body (diuretics). ?Constipation. What increases the risk? You may be at greater risk for overactive bladder if you: Are an older adult. Smoke. Are going through menopause. Have prostate problems. Have a neurological disease, such as stroke, dementia, Parkinson's disease, or multiple sclerosis (MS). Eat or drink alcohol, spicy food, caffeine, and other things that irritate the bladder. Are overweight or obese. What are the signs or symptoms? Symptoms of this condition include a sudden, strong urge to urinate. Other symptoms include: Leaking urine. Urinating 8 or more times a day. Waking up to urinate 2 or more times overnight. How is this diagnosed? This condition may be diagnosed based on: Your symptoms and medical history. A physical exam. Blood or urine tests to check for possible causes, such as infection. You may also need to see a health care provider who specializes in urinary tract problems. This is called a urologist. How is this treated? Treatment for overactive bladder depends on the cause of your condition and whether it is mild or severe. Treatment may include: Bladder training, such as: ?Learning to control the urge to urinate by following a schedule to urinate at regular intervals. ?Doing Kegel exercises to strengthen the pelvic floor muscles that support your bladder. Special devices, such as: ?Biofeedback. This uses sensors to help you become aware of your body's signals. ?Electrical stimulation. This uses electrodes placed inside the body (implanted) or outside the body. These electrodes send gentle pulses of electricity to strengthen the nerves or muscles that control the bladder. ?Women may use a plastic device, called a pessary, that fits into the vagina and supports the bladder. Medicines, such as: ?Antibiotics to treat bladder infection. ?Antispasmodics to stop the bladder from releasing urine at the wrong time. ?Tricyclic antidepressants to relax bladder muscles. ?Injections of botulinum toxin type A directly into the bladder tissue to relax bladder muscles. Surgery, such as: ?A device may be implanted to help manage the nerve signals that control urination. ?An electrode may be implanted to stimulate electrical signals in the bladder. ?A procedure may be done to change the shape of the bladder. This is done only in very severe cases. Follow these instructions at home: Eating and drinking Make diet or lifestyle changes recommended by your health care provider. These may include: ?Drinking fluids throughout the day and not only with meals. ?Cutting down on caffeine or alcohol. ?Eating a healthy and balanced diet to prevent constipation. This may include: ?Choosing foods that are high in fiber, such as beans, whole grains, and fresh fruits and vegetables. ?Limiting foods that are high in fat and processed sugars, such as fried and sweet foods. Lifestyle Lose weight if needed. Do not use any products that contain nicotine or tobacco. These include cigarettes, chewing tobacco, and vaping devices, such as e-cigarettes. If you need help quitting, ask your health care provider. General instructions Take ocen-toh-omoawmp and prescription medicines only as told by your health care provider. If you were prescribed an antibiotic medicine, take it as told by your health care provider. Do not stop taking the antibiotic even if you start to feel better. Use any implants or pessary as told by your health care provider. If needed, wear pads to absorb urine leakage. Keep a log to track how much and when you drink, and when you need to urinate. This will help your health care provider monitor your condition. Keep all follow-up visits. This is important. Contact a health care provider if: You have a fever or chills. Your symptoms do not get better with treatment. Your pain and discomfort get worse. You have more frequent urges to urinate. Get help right away if: You are not able to control your bladder. Summary Overactive bladder refers to a condition in which a person has a sudden and frequent need to urinate. Several conditions may lead to an overactive bladder. Treatment for overactive bladder depends on the cause and severity of your condition. Making lifestyle changes, doing Kegel exercises, keeping a log, and taking medicines can help with this condition. This information is not intended to replace advice given to you by your health care provider. Make sure you discuss any questions you have with your health care provider. Document Revised: 01/26/2021 Document Reviewed: 01/26/2021 [employer] Patient Education 2022 [employer] Follow Up Care 03/22/2023 12:50:20 With:[facility] Address: [address] [place] [id number] Business (1) When: Unknown Comments:our project controls scheduler will be contacting you for follow-up [facility] 05-03-2023 Note Chief Complaint New Pt. HPI Staff Evaluation requested by Alondra Higgins due to Urinary Incontinence. CT done 10/17/20. Pt. was not able to give a urine sample today. A1C was done yesterday, last one done 01/15/23 - 8.3. Pt is a new pt, never before seen in our office (Verified on [employer]) Dysuria: no Incomplete bladder emptying: yes, Pt. states she has to move around to fully empty. PVR 32mL Hematuria: no Frequency: 1-2 hours Urgency: yes Nocturia: 2x's Stream: Pt. states if standing she has a good stream, when sitting the stream is slow. Pt. states she has to move around to fully empty. Post void dripping: mild Wearing pads/ Depends: Pt. wears pad, Pt. states she always wears one when she goes out of the house. Pt. states she also wears one at night. Urge incontinence: yes Stress incontinence: yes Incontinence without Sensory Awareness: Abdominal pain: no Flank pain: no Review of Systems PHQ Score Initial Depression Screen Score: 0 SCORE no fever, chills, malaise, myalgia. no rash/lesions. no chest pain, palpitations, or SOB. no abdominal pain, nausea, vomiting. no unilateral calf swelling, redness, pain Physical Exam Vitals & Measurements HR: 91(Peripheral) RR: 16 BP: 138/88 HT: 62 in HT: 157 cm WT: 94.5 kg WT: 207.9 lb BMI: 38.34 General: nontoxic, NAD Mouth: moist mucosa Lungs: normal respiratory effort Cardio: regular rate, good distal perfusion Abdomen: nondistended, no suprapubic distention or tenderness, no CVA tenderness Neurologic: Grossly normal Skin: No rashes or suspicious lesions Assessment/Plan 1. Mixed incontinence urge and stress (N39.46: Mixed incontinence) BBSQ 22, 'poor' control unable to give urine sample today urgency/frequency/UUI - can't hold longer than 60-90 mins. has severe urgency. HOLA - leaks with bending forward, standing up/position change. not really w laugh/cough/sneeze. diet - 4c reg coffee daily (this is better than previously she was doing a pot a day), 4-5 tall glasses water. occasional tea. no pop. BMs - 3x daily after each meal, difficult to pass at times. takes stool softener QOD. diabetic - on Trulicity and insulin, last A1c in 12.23, just had another one drawn yesterday we don't have results yet. kegels - able to contract but isn't able to hold it. doesn't do it regularly. -continue to improve DM control w PCP -decrease bladder irritants -encouraged weight loss -increase stool softener to daily, add Miralax -discussed PFPT at length. pt willing to try. if we do not achieve goals with PFPT/lifestyle changes, then we will revisit other tx options. Total time spent reviewing previous notes/results/external documents, preparing the chart, conducting the encounter with the patient and family, ordering tests/medications, and documenting the encounter was 45 mins Ordered: E&M of New Patient Moderate 45-59 Min [id number] Orders: [id number] Measure Post Void residual urine and/or bladder capacity by US- non-imaging Follow-up With When Contact Information [facility] [address] [address] Business (1) Additional Instructions: our project controls scheduler will be contacting you for follow-up Patient Education Overactive Bladder, Adult Problem List/Past Medical History Ongoing Abdominal pain, epigastric Abdominal pain, periumbilical Anal skin tag Anxiety with depression Bleeding hemorrhoid BMI 39.0-39.9,adult Chronic obstructive pulmonary disease Constipation Diabetes Family history of hepatic cirrhosis Furuncle Gastroparesis due to DM GERD (gastroesophageal reflux disease) Hemorrhoids Hiatal hernia with GERD HTN (hypertension) Hyperlipidemia Hyperplastic polyp of sigmoid colon Hypothyroid Iron deficiency anemia Mixed incontinence urge and stress Nausea Nausea in adult Occult blood in stools Peripheral neuropathy Positive colorectal cancer screening using Cologuard test Rectal bleeding RLS (restless legs syndrome) Smoker Thrombocytopenia Historical No qualifying data Procedure/Surgical History EGD - Esophagogastroduodenoscopy (09/24/2020), Colonoscopy (04/09/2020), Bilateral tubal ligation, section, Laparoscopic cholecystectomy, Removal of gallstone from bile duct, Tonsillectomy and adenoidectomy. Medications Anusol-HC 25 mg rectal suppository, 25 mg= 1 supp, Rectal, BID, Not taking armodafinil 250 mg oral tablet, 250 mg= 1 tab(s), Oral, Daily, Not taking atorvastatin 40 mg Tab, 40 mg= 1 tab(s), Oral, Bedtime, Not taking Breztri Aerosphere inhalation aerosol, 2 puff(s), BID buPROPion 300 mg XL /24 hrs, 300 mg= 1 tab(s), Oral, Daily busPIRone 15 mg Tab, 15 mg= 1 tab(s), BID calcium 500 mg tablet, 500 mg= 1 tab(s), Chewed, Daily, Not taking cevimeline 30 mg oral capsule, 30 mg= 1 cap(s), TID cholecalciferol 2000 intl units oral capsule, 2000 International_Unit= 1 cap(s), Oral, Daily, Not taking (more content not included)... [facility] Comment on above: Result Comment: Elec tronically Signed By: JUANITO BREWER, NGA Freedman\.br\Date and Time Signed: 05/03/23 11:37 EST 04-05-2023 Evaluation note Encounter Date Diagnosis Assessment Notes Mar, GERD (gastroesopha geal reflux disease) (ICD-10 - K21.9) Stop pantoprazole Rto 3 months Mar, Abdominal pain (ICD-10 - R10.9) Mar, Diarrhea (ICD-10 - R19.7) Mar, Nausea (ICD-10 - R11.0) [employer] Other 05-09-2023 Evaluation note* Encounter Date Diagnosis Assessment Notes Treatment Notes Treatment Clinical Notes September, Abdominal pain (ICD-10 - R10.9) September, Diarrhea (ICD-10 - R19.7) Patient states she goes back and fourth between diarrhea and constipation. September, GERD (gastroesophageal reflux disease) (ICD-10 - K21.9) [employer] Other 02-03-2023 Instructions* Patient Instructions* Andre Funes MD - 06/25/2022 2:08 PM EST Recommend alternating follow up and evaluation with her PCP. Will need CBC, CMP, Iron studies, AFP and US Liver q 6 months I will see her for the same in 12 months - Consider IV iron in future if she becomes anemic - did not tolerate oral iron RTC in 12 months labs same day. Include AFP US Liver prior to return documented in this encounter[facility] History of Present illness Narrative* Andre Funes MD - 06/25/2022 2:01 PM EST Images from the original note were not included. NAME: Renetta Barbosa CLINIC NO.: [id number] DATE OF SERVICE: June 25, 2022 ([place]) Some elements in this clinic note that are critical to medical decision making have been carefully reviewed and included from a prior clinic note dated: December 17, 2021 Referring Provider: Shakira Higgins CNP Additional Clinicians involved in Renetta Barbosa's care: Boris Miguel, Leonardo Sung, Benjamin Del Toro CC: thrombocytopenia ASSESSMENT: This is a 62 year old woman with thrombocytopenia that is most likely caused by nonalcoholic steatohepatitis with resultant hypersplenism and possibly cirrhosis. Her platelet counts have been stable for many years but seem to be declining just a little bit on recent laboratories. Recheck today indicates that she is back to her stable baseline near the 130s. Outside imaging demonstrates cirrhotic liver with splenomegaly and multiple accessory spleens. Needs HCC screening PLAN: Recommend alternating follow up and evaluation with her PCP. Will need CBC, CMP, Iron studies, AFP and US Liver q 6 months I will see her for the same in 12 months - Consider IV iron in future if she becomes anemic - did not tolerate oral iron RTC in 12 months labs same day. Include AFP US Liver prior to return TREATMENT TO DATE: 1. N/A HPI: Updated Visit, June 25, 2022: Renetta returns today in follow up. US in [facility] with enlarged nodular liver no masses. She is using CPAP but doesn't feel too much better quite yet. Labs are stable. Updated Visit, December 17, 2021: Still not tolerant to oral iron due to severe constipation. No evidence of HCC to date. Labs stable. No need to intervene for anemia at this time. Will need ongoing HCC screening. Updated Visit, June 11, 2021: Fatoumata returns 6 months after her last visit. Doing well. Didn't start iron and hgb has improved, so probably ok. All other labs stable. Updated Visit, December 10, 2020: Renetta is 60 years old and returns today for history of chronic thrombocytopenia due to Mendez. Since her last visit she saw Dr. Sung and completed a hemorrhoidectomy on 10/10/2020. Since then shehas been off of her iron in order to avoid constipation. She also had imaging that demonstrated a cirrhotic liver with splenomegaly and multiple accessory spleens. Her laboratories are stable and she remains largely asymptomatic. I explained carefully the relationship between splenomegaly, liver disease and her current laboratory findings of thrombocytopenia. Updated Visit, September 10, 2020: Renetta Barbosa returns for follow-up. Since her last visit there has been no significant medical changes. She was started on a pill for yeast infection to be taken once daily. The yeast involves her groin folds. She remains on 2 oral iron pills daily. She does state that the iron pills cause someconstipation and GI upset. Additional labs, including iron studies have been drawn at [facility]. She states that she has bleeding hemorrhoids. Otherwise no signs of bleeding. She has chronic abdominal fullness. She is on CPAP and she believes the setting is 9. Initial Visit, August 06, 2020: Renetta is a 60-year-old woman with multiple medical problems including morbid obesity, poorly controlled diabetes, sleep apnea as well as thrombocytopenia that has been fairly chronic. She has been monitored with laboratories dating back to January 2020 with a platelet count of approximately 130,000. The stated fairly stable until July 29, 2020 her platelet count dropped little bit further to 116. She had been off of her CPAP for approximately 1 year but recently got a new one and has been back on for the past 2 months. This may be contributing factor to her thrombocytopenia. She also reveals that she has a history of MENDEZ that was diagnosed approximately 5 years ago. She has had work-up with CT scans and ultrasounds from [facility]. I was also able to review records from care everywhere dating back to August 2012 and note that her platelet count was also low at that time, specifically, 08/28/2012 platelets 141. Aside from pronounced fatigue and daytime somnolence, obesity, joint aches and pains, she has no sequelae of thrombocytopenia. I counseled her regarding her diabetes as well as her weight management with respect to MENDEZ which is probably resulted in hypersplenism and/or cirrhosis of the liver. RADIOGRAPHIC DATA: Reviewed on September 10, 2020 3. 08/22/2018 US Hepatic Echogram Impression: Increased hepatic echogenicity suggesting hepatocellular disease. (Previous US Hepatic- 07/08/2018, 12/21/2017, 11/30/2016, 08/16/2014 results scanned) 2. 04/20/2017 CT Abdomen Impression: 1. Configuration of liver suggests cirrhosis. No focal hepatic lesion identified. 2. Splenomegaly with multiple accessory spleens. 3. Nonspecific periportal and celiac adenopathy appears slightly more prominent than in 2013. 4. Status post cholecystectomy. 5. Small left renal cyst. 1. 09/26/2014 MRI of Abdomen Impression: 1. Hepatosplenomegaly similar to the prior studies. 2. Mild diffuse hepatic steatosis. Fine reticular pattern of hyperdensity on T2 weighted imaging which may be related to early fibrosis. 3. Visualized subcutaneous tissues are unremarkable specifically the abnormality seen on ultrasoundis not reproduced. REVIEW OF SYSTEMS Per HPI and otherwise negative by full review of organ systems. ECOG PERFORMANCE STATUS: 1 PHYSICAL EXAMINATION: Vitals: BP 152/82[recheck[ Pulse 88 Temp (Src) 97.5 (Temporal) Resp 16 Ht 5' 2.008 (1.58m) Wt 209 lb 12.8 oz (95.2kg) SpO2 97% BMI 38.36 kg/(m^2). Body surface area is 2.04 meters squared. Exam limited to gross visualization where appropriate due to COVID-19. Gen.: This is an age-appropriate patient in no acute distress but appears tired and morbidly obese. Head: Appears atraumatic with no visible lesions. Eyes: Pupils equally round and reactive to light, extraocular muscles are intact. Neck: Supple. Mouth: Masked. Respiratory: Appears to be respiring comfortably. Neurologic: Nonfocal to gross visualization. Alert and oriented 3. Psychiatric: No evidence of inappropriate anxiety or depression. Skin: Visible areas of skin without rash, lesions, wounds or petechiae. ALLERGIES: ALLERGIES No Known Allergies MEDICATIONS: venlafaxine ER (EFFEXOR XR) 150 mg 24 hr capsule Take 150 mg by mouth once daily. busPIRone (BUSPAR) 15 mg tablet Take 15 mg by mouth twice daily as needed. FREESTYLE JEANNE 2 SENSOR kit bisacodyl EC (DULCOLAX) 5 mg EC tablet Take 20 mg by mouth. cephALEXin (KEFLEX) 500 mg capsule mupirocin (BACTROBAN) 2 % ointment ondansetron (ZOFRAN) 4 mg tablet Take 4 mg by mouth every 6 hours as needed. pantoprazole DR (PROTONIX) 40 mg tablet Take 40 mg by mouth once daily. SPIRIVA RESPIMAT 2.5 mcg/actuation inhaler INHALE 2 PUFFS BY MOUTH EVERYDAY gabapentin (NEURONTIN) 300 mg capsule Take 300 mg by mouth daily at bedtime. Estradiol (VAGIFEM) 10 mcg vaginal tablet Use 10 mcg vaginally two times a week. buPROPion XL (WELLBUTRIN XL) 300 mg 24 hr tablet Take 300 mg by mouth once daily. fluticasone (FLONASE) 50 mcg/actuation nasal spray Use 1 Pollock in each nostril as needed. furosemide (LASIX) 40 mg tablet Take 40 mg by mouth once daily. levothyroxine (SYNTHROID) 150 mcg tablet Take 150 mcg by mouth once daily. traZODone (DESYREL) 50 mg tablet TAKE 1 TABLET BY MOUTH EVERYDAY AT BEDTIME ferrous sulfate 325 mg (65 mg iron) tablet Take 1 tablet by mouth twice daily. fluconazole (DIFLUCAN) 150 mg tablet TAKE 1 TABLET EVERY 72 HOURS UNTIL SYMPTOMS IMPROVE (MAX 2WK) THEN 1 TABLET ONCE WEEKLY FOR 12 WEEKS insulin regular, human (HUMULIN R U-500, CONC, KWIKPEN SUBCUTANEOUS) Inject subcutaneously. TRULICITY 1.5 mg/0.5 mL pen injector INJECT SUBCUTANEOUSLY ONCE A WEEK cycloSPORINE (RESTASIS MULTIDOSE) 0.05 % drop Use 1 Drop in both eyes twice daily. diclofenac (VOLTAREN) 1 % topical gel Apply to affected area four times daily. cyanocobalamin, vitamin B-12, (VITAMIN B12 ORAL) Take 1,000 mcg by mouth once daily. cholecalciferol, vitamin D3, (VITAMIN D3 ORAL) Take by mouth once daily. CALCIUM ORAL Take by mouth once daily. hydrocortisone (ANUSOL-HC) 2.5 % rectal cream APPLY RECTALLY TWICE DAILY FOR 10 DAYS albuterol HFA 90 mcg/actuation HFA Inhale 2 Puffs as instructed as needed. CICLOPIROX TOPICAL Apply to affected area. metFORMIN (GLUCOPHAGE) 1,000 mg tablet (Patient not taking: Reported on 06/25/2022) atorvastatin (LIPITOR) 40 mg tablet Take 40 mg by mouth once daily. (Patient not taking: Reported on 06/25/2022) LABORATORY VALUES: Hemoglobin (g/dL) Date Value 06/25/2022 12.5 06/11/2021 13.4 Hematocrit (%) Date Value 06/25/2022 38.7 06/11/2021 43.3 WBC (k/uL) Date Value 06/25/2022 5.07 06/11/2021 5.41 Platelet Count (k/uL) Date Value 06/25/2022 148 06/11/2021 142 DIAGNOSIS: (K74.60) 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) (primary encounter diagnosis) Plan: CBC + DIFF, COMP METABOLIC PANEL, IRON + TIBC, FERRITIN BLD, VITAMIN B12 BLOOD, FOLATE SERUM, US ABD LIVER VASCULAR, US DOPPLER COMPLETE (K75.81) MENDEZ (nonalcoholic steatohepatitis) (D69.59, D73.1) Thrombocytopenia due to hypersplenism Plan: CBC + DIFF, COMP METABOLIC PANEL, IRON + TIBC, FERRITIN BLD, VITAMIN B12 BLOOD, FOLATE SERUM, US ABD LIVER VASCULAR, US DOPPLER COMPLETE PAST MEDICAL HISTORY Diagnosis Date COPD (chronic obstructive pulmonary disease) (HCC) Diabetes mellitus (HCC) type GERD (gastroesophageal reflux disease) PAST SURGICAL HISTORY Procedure Laterality Date SNGL LIGATE FALLOPIAN TUBE TONSILLECTOMY & ADENOIDECTOMY <AGE 12 Social History Tobacco Use Smoking status: Every Day Packs/day: 0.50 Types: Cigarettes Passive exposure: Current Smokeless tobacco: Never Vaping Use Vaping Use: Never used Substance Use Topics Alcohol use: Not Currently Drug use: Not Currently FAMILY HISTORY Problem Relation Age of Onset Diabetes Mother Kidney Disease Mother Lung Cancer Father Arthritis Sister Breast Cancer Maternal Grandmother I spent a total of 20 minutes on the date of the service which included preparing to see the patient, [id number] patient care, completing clinical documentation, performing a medically appropriate examination and ordering medications, tests, or procedures. Andre Funes MD, [facility] [place], [place] CC: Shakira Higgins CNP [id number] [id number] documented in this encounterUniversity [facility]01-31-2023 Evaluation note* Encounter Date Diagnosis Assessment Notes Treatment Notes Treatment Clinical Notes May, Abdominal pain (ICD-10 - R10.9) Stop Atorvastatin & Metformin for 1 month RTO 1 month May, Diarrhea (ICD-10 - R19.7) May, GERD (gastroesophageal reflux disease) (ICD-10 - K21.9) [facility] Other 11-10-2022 Evaluation note* Encounter Date Diagnosis Assessment Notes Treatment Notes Treatment Clinical Notes Mar, Abdominal pain (ICD-10 - R10.9) [facility] Other 10-13-2022 Evaluation note* Encounter Date Diagnosis Assessment Notes Treatment Notes Treatment Clinical Notes Feb, GERD (gastroesophageal reflux disease) (ICD-10 - K21.9) CONTINUE PANTOPRAZOLE 40 MG DAILY Feb, Abdominal pain (ICD-10 - R10.9) RTO 6 WEEKS COPY OF LOW FODMAP DIET GIVEN TO PATIENT Feb, Diarrhea (ICD-10 - R19.7) [facility] Other 07-28-2022 History of Present illness Narrative* Andre Funes MD - 12/17/2021 2:15 PM EDT Images from the original note were not included. NAME: Renetta Barbosa [place] CL[facility]IC NO.: [id number] DATE OF SERVICE: December 17, 2021 Some elements in this clinic note that are critical to medical decision making have been carefully reviewed and included from a prior clinic note dated: June 11, 2021 Referring Provider: Shakira Higgins CNP Additional Clinicians involved in Renetta Barbosa's care: Leonardo Clay Nill, Benjamin Del Toro CC: thrombocytopenia ASSESSMENT: This is a 61 year old woman with thrombocytopenia that is most likely caused by nonalcoholic steatohepatitis with resultant hypersplenism and possibly cirrhosis. Her platelet counts have been stable for many years but seem to be declining just a little bit on recent laboratories. Recheck today indicates that she is back to her stable baseline near the 130s. Outside imaging demonstrates cirrhotic liver with splenomegaly and multiple accessory spleens. Needs HCC screening PLAN: 1. Re- Consider IV iron in future if she becomes anemic - did not tolerate oral iron 2. RTC in 6 months labs same day. Include AFP 3. US Liver prior to return TREATMENT TO DATE: 1. N/A HPI: Updated Visit, December 17, 2021: Still not tolerant to oral iron due to severe constipation. No evidence of HCC to date. Labs stable. No need to intervene for anemia at this time. Will need ongoing HCC screening. Updated Visit, June 11, 2021: Fatoumata returns 6 months after her last visit. Doing well. Didn't start iron and hgb has improved, so probably ok. All other labs stable. Updated Visit, December 10, 2020: Renetta is 60 years old and returns today for history of chronic thrombocytopenia due to Mendez. Since her last visit she saw Dr. Sung and completed a hemorrhoidectomy on 10/10/2020. Since then shehas been off of her iron in order to avoid constipation. She also had imaging that demonstrated a cirrhotic liver with splenomegaly and multiple accessory spleens. Her laboratories are stable and she remains largely asymptomatic. I explained carefully the relationship between splenomegaly, liver disease and her current laboratory findings of thrombocytopenia. Updated Visit, September 10, 2020: Renetta Barbosa returns for follow-up. Since her last visit there has been no significant medical changes. She was started on a pill for yeast infection to be taken once daily. The yeast involves her groin folds. She remains on 2 oral iron pills daily. She does state that the iron pills cause someconstipation and GI upset. Additional labs, including iron studies have been drawn at [facility]. She states that she has bleeding hemorrhoids. Otherwise no signs of bleeding. She has chronic abdominal fullness. She is on CPAP and she believes the setting is 9. Initial Visit, August 06, 2020: Renetta is a 60-year-old woman with multiple medical problems including morbid obesity, poorly controlled diabetes, sleep apnea as well as thrombocytopenia that has been fairly chronic. She has been monitored with laboratories dating back to January 2020 with a platelet count of approximately 130,000. The stated fairly stable until July 29, 2020 her platelet count dropped little bit further to 116. She had been off of her CPAP for approximately 1 year but recently got a new one and has been back on for the past 2 months. This may be contributing factor to her thrombocytopenia. She also reveals that she has a history of MENDEZ that was diagnosed approximately 5 years ago. She has had work-up with CT scans and ultrasounds from [facility]. I was also able to review records from care everywhere dating back to August 2012 and note that her platelet count was also low at that time, specifically, 08/28/2012 platelets 141. Aside from pronounced fatigue and daytime somnolence, obesity, joint aches and pains, she has no sequelae of thrombocytopenia. I counseled her regarding her diabetes as well as her weight management with respect to MENDEZ which is probably resulted in hypersplenism and/or cirrhosis of the liver. RADIOGRAPHIC DATA: Reviewed on September 10, 2020 3. 08/22/2018 US Hepatic Echogram Impression: Increased hepatic echogenicity suggesting hepatocellular disease. (Previous US Hepatic- 07/08/2018, 12/21/2017, 11/30/2016, 08/16/2014 results scanned) 2. 04/20/2017 CT Abdomen Impression: 1. Configuration of liver suggests cirrhosis. No focal hepatic lesion identified. 2. Splenomegaly with multiple accessory spleens. 3. Nonspecific periportal and celiac adenopathy appears slightly more prominent than in 2013. 4. Status post cholecystectomy. 5. Small left renal cyst. 1. 09/26/2014 MRI of Abdomen Impression: 1. Hepatosplenomegaly similar to the prior studies. 2. Mild diffuse hepatic steatosis. Fine reticular pattern of hyperdensity on T2 weighted imaging which may be related to early fibrosis. 3. Visualized subcutaneous tissues are unremarkable specifically the abnormality seen on ultrasoundis not reproduced. REVIEW OF SYSTEMS Per HPI and otherwise negative by full review of organ systems. ECOG PERFORMANCE STATUS: 1 PHYSICAL EXAMINATION: Vitals: BP 145/83 Pulse 92 Temp (Src) 97.6 (Temporal) Resp 16 Ht 5' 2.008 (1.58m) Wt 216lb (98.0kg) SpO2 95% BMI 39.50 kg/(m^2). Body surface area is 2.07 meters squared. Exam limited to gross visualization where appropriate due to COVID-19. Gen.: This is an age-appropriate patient in no acute distress but appears tired and morbidly obese. Head: Appears atraumatic with no visible lesions. Eyes: Pupils equally round and reactive to light, extraocular muscles are intact. Neck: Supple. Mouth: Masked. Respiratory: Appears to be respiring comfortably. Neurologic: Nonfocal to gross visualization. Alert and oriented 3. Psychiatric: No evidence of inappropriate anxiety or depression. Skin: Visible areas of skin without rash, lesions, wounds or petechiae. ALLERGIES: ALLERGIES No Known Allergies MEDICATIONS: ADITU SAS 2 SENSOR kit busPIRone (BUSPAR) 10 mg tablet bisacodyl EC (DULCOLAX, BISACODYL,) 5 mg EC tablet Take 20 mg by mouth. cephALEXin (KEFLEX) 500 mg capsule mupirocin (BACTROBAN) 2 % ointment ondansetron (ZOFRAN) 4 mg tablet Take 4 mg by mouth every 6 hours as needed. pantoprazole DR (PROTONIX) 40 mg tablet Take 40 mg by mouth once daily. SPIRIVA RESPIMAT 2.5 mcg/actuation inhaler INHALE 2 PUFFS BY MOUTH EVERYDAY gabapentin (NEURONTIN) 300 mg capsule Take 300 mg by mouth daily at bedtime. Estradiol (YUVAFEM) 10 mcg vaginal tablet Use 10 mcg vaginally two times a week. buPROPion XL (WELLBUTRIN XL) 300 mg 24 hr tablet Take 300 mg by mouth once daily. fluticasone (FLONASE) 50 mcg/actuation nasal spray Use 1 Pollock in each nostril as needed. furosemide (LASIX) 40 mg tablet Take 40 mg by mouth once daily. levothyroxine (SYNTHROID) 150 mcg tablet Take 150 mcg by mouth once daily. metFORMIN (GLUCOPHAGE) 1,000 mg tablet traZODone (DESYREL) 50 mg tablet TAKE 1 TABLET BY MOUTH EVERYDAY AT BEDTIME venlafaxine ER (EFFEXOR XR) 75 mg 24 hr capsule Take 75 mg by mouth once daily. ferrous sulfate 325 mg (65 mg iron) tablet Take 1 tablet by mouth twice daily. fluconazole (DIFLUCAN) 150 mg tablet TAKE 1 TABLET EVERY 72 HOURS UNTIL SYMPTOMS IMPROVE (MAX 2WK) THEN 1 TABLET ONCE WEEKLY FOR 12 WEEKS insulin regular, human (HUMULIN R U-500, CONC, KWIKPEN SUBCUTANEOUS) Inject subcutaneously. TRULICITY 1.5 mg/0.5 mL pen injector INJECT SUBCUTANEOUSLY ONCE A WEEK cycloSPORINE (RESTASIS MULTIDOSE) 0.05 % drop Use 1 Drop in both eyes twice daily. diclofenac (VOLTAREN) 1 % topical gel Apply to affected area four times daily. cyanocobalamin, vitamin B-12, (VITAMIN B12 ORAL) Take 1,000 mcg by mouth once daily. cholecalciferol, vitamin D3, (VITAMIN D3 ORAL) Take by mouth once daily. CALCIUM ORAL Take by mouth once daily. hydrocortisone (ANUSOL-HC) 2.5 % rectal cream APPLY RECTALLY TWICE DAILY FOR 10 DAYS albuterol HFA 90 mcg/actuation HFA Inhale 2 Puffs as instructed as needed. CICLOPIROX TOPICAL Apply to affected area. atorvastatin (LIPITOR) 40 mg tablet Take 40 mg by mouth once daily. LABORATORY VALUES: Hemoglobin (g/dL) Date Value 12/17/2021 13.3 06/11/2021 13.4 Hematocrit (%) Date Value 12/17/2021 41.8 06/11/2021 43.3 WBC (k/uL) Date Value 12/17/2021 7.57 06/11/2021 5.41 Platelet Count (k/uL) Date Value 12/17/2021 161 06/11/2021 142 DIAGNOSIS: (D69.59, D73.1) Thrombocytopenia due to hypersplenism (primary encounter diagnosis) Plan: CBC + DIFF, COMP METABOLIC PANEL, IRON + TIBC, FERRITIN BLD, VITAMIN B12 BLOOD, FOLATE SERUM, US ABD RT UPPER QUADRANT, ALPHA FETOPROTEIN BL (K74.60) 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) Plan: CBC + DIFF, COMP METABOLIC PANEL, IRON + TIBC, FERRITIN BLD, VITAMIN B12 BLOOD, FOLATE SERUM, US ABD RT UPPER QUADRANT, ALPHA FETOPROTEIN BL (K75.81) MENDEZ (nonalcoholic steatohepatitis) Plan: CBC + DIFF, COMP METABOLIC PANEL, IRON + TIBC, FERRITIN BLD, VITAMIN B12 BLOOD, FOLATE SERUM, US ABD RT UPPER QUADRANT, ALPHA FETOPROTEIN BL PAST MEDICAL HISTORY Diagnosis Date COPD (chronic obstructive pulmonary disease) (HCC) Diabetes mellitus (HCC) type GERD (gastroesophageal reflux disease) PAST SURGICAL HISTORY Procedure Laterality Date SNGL LIGATE FALLOPIAN TUBE TONSILLECTOMY & ADENOIDECTOMY <AGE 12 Social History Tobacco Use Smoking status: Current Every Day Smoker Packs/day: 0.50 Types: Cigarettes Smokeless tobacco: Never Used Vaping Use Vaping Use: Never used Substance Use Topics Alcohol use: Not Currently Drug use: Not Currently FAMILY HISTORY Problem Relation Age of Onset Diabetes Mother Kidney Disease Mother Lung Cancer Father Arthritis Sister Breast Cancer Maternal Grandmother I spent a total of 20 minutes on the date of the service which included preparing to see the patient, [id number] patient care, completing clinical documentation, performing a medically appropriate examination and ordering medications, tests, or procedures. Andre Funes MD, [place], [place] CC: Shakira Higgins, RADIOLOGY CLERK [address] [address] documented in this encounterUniversity [facility] CenterEvaluation + Plan note No data available for this section [facility] evaluation + Plan note Future Appointments Appointment Date:11/07/2023 11:20:00 AM Scheduled Provider:NGA SOLOMON PA-C Location:[facility] Appointment Type:URO Procedure 30 min Appointment Date:11/14/2023 11:20:00 AM Scheduled Provider:NGA SOLOMON PA-C Location:[facility] Appointment Type:URO Procedure 30 min Appointment Date:11/30/2023 11:20:00 AM Scheduled Provider:NGA SOLOMON PA-C Location:[facility] Appointment Type:URO Procedure 30 min Appointment Date:12/07/2023 11:20:00 AM Scheduled Provider:NGA SOLOMON PA-C Location[facility] [place] Appointment Type:URO Procedure 30 min Appointment Date:12/28/2023 11:20:00 AM Scheduled Provider:NGA SOLOMON PA-C Location:[facility] [place] Appointment Type:URO Procedure 30 min Appointment Date:01/04/2024 11:20:00 AM Scheduled Provider:NGA SOLOMON PA-C Location:[facility] Appointment Type:URO Procedure 30 min [facility] Evaluation + Plan note Future Appointments Appointment Date:11/14/2023 11:20:00 AM Scheduled Provider:NGA SOLOMON PA-C Location:[facility] Appointment Type:URO Procedure 30 min Appointment Date:11/21/2023 11:20:00 AM Scheduled Provider:NGA SOLOMON PA-C Location:[facility] Appointment Type:URO Procedure 30 min Appointment Date:11/28/2023 11:20:00 AM Scheduled Provider:NGA SOLOMON PA-C Location:[facility] Appointment Type:URO Procedure 30 min Appointment Date:12/19/2023 11:20:00 AM Scheduled Provider:NGA SOLOMON PA-C Location:[facility] Appointment Type:URO Procedure 30 min Appointment Date:01/02/2024 11:20:00 AM Scheduled Provider:NGA SOLOMON PA-C Location:[facility] Appointment Type:URO Procedure 30 min [facility] Evaluation + Plan note Future Appointments Appointment Date:11/21/2023 11:20:00 AM Scheduled Provider:NGA SOLOMON PA-C Location:[facility] Appointment Type:URO Procedure 30 min Appointment Date:11/28/2023 11:20:00 AM Scheduled Provider:NGA SOLOMON PA-C Location:[facility] Appointment Type:URO Procedure 30 min Appointment Date:12/05/2023 11:20:00 AM Scheduled Provider:NGA SOLOMON PA-C Location:[facility] Appointment Type:URO Procedure 15 min Appointment Date:12/19/2023 11:20:00 AM Scheduled Provider:NGA SOLOMON PA-C Location:[facility] Appointment Type:URO Procedure 30 min Appointment Date:01/02/2024 11:20:00 AM Scheduled Provider:NGA SOLOMON PA-C Location:[facility] Appointment Type:URO Procedure 30 min [facility] Evaluation + Plan note Future Appointments Appointment Date:11/28/2023 11:20:00 AM Scheduled Provider:NGA SOLOMON PA-C Location:[facility] Appointment Type:URO Procedure 30 min Appointment Date:12/05/2023 11:20:00 AM Scheduled Provider:NGA SOLOMON PA-C Location:[facility] Appointment Type:URO Procedure 15 min Appointment Date:12/19/2023 11:20:00 AM Scheduled Provider:NGA SOLOMON PA-C [facility] Appointment Type:URO Procedure 30 min Appointment Date:01/02/2024 11:20:00 AM Scheduled Provider:NGA SOLOMON PA-C Location:[facility] Appointment Type:URO Procedure 30 min [facility] Evaluation + Plan note Future Appointments Appointment Date:12/05/2023 11:20:00 AM Scheduled Provider:NGA SOLOMON PA-C Location:[facility] Appointment Type:URO Procedure 15 min Appointment Date:12/19/2023 11:20:00 AM Scheduled Provider:NGA SOLOMON PA-C [facility] Type:[facility]O Procedure 30 min Appointment Date:01/02/2024 11:20:00 AM Scheduled Provider:NGA SOLOMON PA-C Location[facility] Appointment Type:URO Procedure 30 min 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) Cirrhosis of liver without mention of alcohol MENDEZ (nonalcoholic steatohepatitis) Other chronic nonalcoholic liver disease [facility] Diagnosis 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)- Primary Cirrhosis of liver without mention of alcohol MENDEZ (nonalcoholic steatohepatitis) Other chronic nonalcoholic liver disease 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 thrombocytopenia [facility] this [facility]No [facility] Other Evaluation note* Diagnosis MENDEZ (nonalcoholic steatohepatitis)- Primary Other chronic nonalcoholic liver disease 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) Cirrhosis of liver without mention of alcohol 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 thrombocytopenia Thrombocytopenia (HCC) Thrombocytopenia, unspecified Diabetic gastroparesis (HCC) (HCC) Type II or unspecified type diabetes mellitus with neurological manifestations, not stated as uncontrolled documented in this encounter [facility] general Narrative - Reported* Type Description Date Surgical History tonsillectomy and adenoidectomy Surgical History C section Surgical History tubal ligation Surgical History cholecystectomy Hospitalization History SEE ABOVE [place] Accountable Other Hospital Discharge instructions No data available for this section [facility] Progress note No data available for this section [facility] reason for referral (narrative)* Diagnostic Procedure Only (Routine) - Pending Review Specialty Diagnoses / Procedures Referred By Contac t Referred To Contact US IMAGING Diagnoses 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) MENDEZ (nonalcoholic steatohepatitis) Procedures US ABD RT UPPER QUADRANT US ABDOMINAL REAL TIME W/IMAGE LIMITED Andre Funes MD [address] [place] [address] [place] [address] Us Imaging Referral ID Status Reason Start Date Expiration Date Visits Requested Visits Authorized [id number] Pending Review Auto-Generat ed Referral 06/19/2022 01/16/2023 1 1 [facility] for referral (narrative)* Diagnostic Procedure Only (Routine) - Pending Review Specialty Diagnoses / Procedures Referred By Contac t Referred To Contact US IMAGING Diagnoses 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 Procedures US DOPPLER COMPLETE DUP-SCAN ARTL PATRICK ABDL/PEL/SCROT&/RPR ORGN COM Andre Funes MD [address] [place] [address] [place] [address] Us Imaging Referral ID Status Reason Start Date Expiration Date Visits Requested Visits Authorized [id number] Pending Review Auto-Generat ed Referral 06/25/2023 07/25/2023 1 1 * Diagnostic Procedure Only (Routine) - Pending Review Specialty Diagnoses / Procedures Referred By Contac t Referred To Contact US IMAGING Diagnoses 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 Procedures US ABD LIVER VASCULAR US ABDOMINAL REAL TIME W/IMAGE LIMITED DUP-SCAN ARTL PATRICK ABDL/PEL/SCROT&/RPR ORGN [facility] Andre Funes MD [address] [place] [address] [place] [address] Us Imaging Referral ID Status Reason Start Date Expiration Date Visits Requested Visits Authorized [id number] Pending Review Auto-Generat ed Referral 06/25/2023 07/25/2023 1 1 [facility] for referral (narrative)* Diagnostic Procedure Only (Routine) - Pending Review Specialty Diagnoses / Procedures Referred By Contac t Referred To Contact US IMAGING Diagnoses MENDEZ (nonalcoholic steatohepatitis) 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 Other Summary Purpose Family History No Family History Records FoundNo Family History Records FoundNo Family History Records FoundNo Family History Records Found No data available for this section No Family History Records FoundNo Family History Records Found No data available for this section No data available for this section No data available for this section No Family History Records Found No data available for this section No data available for this section No data available for this section No data available for this section No Family History Records Found Advance Directives No Advanced Directives Records FoundNo Advanced Directives Records FoundNo Advanced Directives Records FoundNo Advanced Directives Records FoundNo Advanced Directives Records FoundNo Advanced Directives Records FoundNo Advanced Directives Records FoundNo Advanced Directives Records Found Additional Source Comments INFORMATION SOURCE (unrecogn ized section and content) DATE CREATED AUTHOR 06/16/2019 [facility] DATE CREATED AUTHOR AUTHOR'S ORGANIZ ATION 06/03/2021 [facility] DATE CREATED AUTHOR AUTHOR'S ORGANIZ ATION 03/01/2022 [facility] DATE CREATED AUTHOR AUTHOR'S ORGANIZ ATION 10/29/2022 [facility] DATE CREATED AUTHOR AUTHOR'S ORGANIZ ATION 06/26/2023 [facility] DATE CREATED AUTHOR AUTHOR'S ORGANIZ ATION 08/03/2023 [facility] DATE CREATED AUTHOR AUTHOR'S ORGANIZ ATION 11/18/2023 [facility] DATE CREATED AUTHOR AUTHOR'S ORGANIZ ATION 12/09/2023 [facility] Source Comments (unrecognize d section and content) In the event this informatio n is protected by the Federal Confidentiality of Alcohol and Drug Abuse Patient Records regulations: The Federal rules restrict any use of the information to criminally investigate or prosecute any alcohol or drug abuse patient.[facility] Medical CenterIn the event this information is protected by the Federal Confidentiality of Alcohol and Drug Abuse Patient Records regulations: The Federal rules restrict any use of the information to criminally investigate or prosecute any alcohol or drug abuse patient.[facility] CenterIn the event this information is protected by the Federal Confidentiality of Alcohol and Drug Abuse Patient Records regulations: The Federal rules restrict any use of the information to criminally investigate or prosecute any alcohol or drug abuse patient.[facility] CenterIn the event this information is protected by the Federal Confidentiality of Alcohol and Drug Abuse Patient Records regulations: The Federal rules restrict any use of the information to criminally investigate or prosecute any alcohol or drug abuse patient.[facility] Reason for Visit (unrecogniz ed section and content) Reason Comments Thrombocytopenia Reason Comments Thrombocytopenia 6 month follow up Care Teams (unrecognized sec tion and content) Can Labeler Relationship Specialty Start Date End Date Shakira Higgins CNP [address] [place] [address] PCP - General Internal Medicine 08/01/20 Can Labeler Relationship Specialty Start Date End Date Shakira Higgins CNP [address] [place] [address] PCP - General Internal Medicine 08/01/20 FOR RECORDS PERTAINING TO PATIENTS WHO ARE OR HAVE BEEN ENROLLED IN A CHEMICAL DEPENDENCY/SUBSTANCEABUSE PROGRAM, SOME INFORMATION MAY BE OMITTED. This clinical summary was aggregated from multiple sources. Caution should be exercised in using it in the provision of clinical care. This summary normalizes information from multiple sources, and as a consequence, information in this document may materially change the coding, format and clinical context of patient data. In addition, data may be omitted in some cases. CLINICAL DECISIONS SHOULD BE BASED ON THE PRIMARY CLINICAL RECORDS. [employer] [facility]. provides no warranty or guarantee of the accuracy or completeness of information in this document.
== END 2023-12-27 10:09 | disposition home or self-care (01) ==
LOC: EC 10:08
PROVIDERS: PCP Nurse Practitioner Family; Visit Provider Physician Assistant
DX: M79.672 Pain in left foot (principal); S92.342D Displaced fracture of fourth metatarsal bone, left foot, subsequent encounter for fracture with routine healing; S92.352D Displaced fracture of fifth metatarsal bone, left foot, subsequent encounter for fracture with routine healing
CPT/HCPCS: 73630

== ENCOUNTER 2024-01-03 08:21 | Outpatient (OUT) | payer OTHER, MEDICAID, SELFPAY ==
--- NOTE | 2024-01-03 08:30 | VEIN_ITS ---
The [address] [address] Patient Name: ALBINO BARBOSA MRN: [facility]:[id number] date: 1960 Sex: F Assigned Patient Location: Current Patient Location: Accession/Order Number: [id number] Exam Date: 01/03/2024 08:30 Report Date: 01/03/2024 12:32 At the request of: JV JONES Procedure: VC SEGMENTAL PRESSURES EXAM: VC SEGMENTAL PRESSURES. HISTORY: R09.89, peripheral vascular disease. COMPARISON: None. TECHNIQUE: Resting ABIs and segmental limb pressures. FINDINGS: Right resting NEO 1.2. Left resting NEO 1.15. Waveforms are multiphasic. No pressure gradients were noted. Bilateral toe brachial indices are normal. VEIN/VC SEGMENTAL PRESSURES IMPRESSION: Normal resting ABIs. Normal toe brachial indices. No pressure gradients noted. Electronically authenticated by: Taye SHAVER Date: 01/03/2024 12:32
== END 2024-01-03 08:22 | disposition home or self-care (01) ==
PROVIDERS: PCP Nurse Practitioner Family; Visit Provider Physician Assistant
DX: R09.89 Other specified symptoms and signs involving the circulatory and respiratory systems (principal)
CPT/HCPCS: 93923

== ENCOUNTER 2024-01-03 09:16 | Outpatient (OUT) | payer OTHER, MEDICAID, SELFPAY ==
--- NOTE | 2024-01-03 09:29 | US_ITS ---
[id number] Patient Name: ALBINO BARBOSA MRN: [facility]:[id number] date: 1960 Sex: F Assigned Patient Location: Current Patient Location: Accession/Order Number: [id number] Exam Date: 01/03/2024 09:30 Report Date: 01/04/2024 06:08 At the request of: LUKE HIGGINS Procedure: US right upper quadrant EXAMINATION: US right upper quadrant HISTORY: Enlarged Liver R16.0 COMPARISON: No relevant comparison available. TECHNIQUE: Transabdominal evaluation of the right upper quadrant. FINDINGS: LIVER: Nodular slightly heterogeneous liver. 20.7 cm in greatest dimension. PORTAL VEIN: Duplex Doppler demonstrates normal hepatopetal flow pattern with flow velocity averaging 34 cm/s. GALLBLADDER: Cholecystectomy. BILIARY: No abnormal dilation or stones. Common bile duct diameter is within normal limits. PANCREAS: No visible mass, abnormal atrophy, or duct dilation. KIDNEY: Mild cortical thinning. No hydronephrosis. No visible mass or stones. Size: 4.0 x 4.6 x 4.6 cm US/US right upper quadrant IMPRESSION: 1. Slightly nodular liver margins. Cirrhosis? 2. Slightly prominent liver; nonspecific. Electronically authenticated by: LEONEL MATA Date: 01/04/2024 06:08
--- OUTSIDE RECORDS SUMMARY | 2024-01-03 09:32 | XMS_ITS | CCD ---
Author Organization [facility] Care Team Providers Care International Logistics Manager Name Role Phone Shakira Higgins Primary Care Provider [phone] DR JENNIFER TURNER Consulting Unavailable YUE, DR RODRIGUEZ Attending Unavailable MISC, DR VAZQUEZ Primary Care Unavailable YUE, DR RODRIGUEZ Admitting Unavailable Keysha Naidu Consulting Unavaila marie Higgins CNP, Shakira S Primary Care Provider PROVIDER, UNKNOWN Attending Unavailable PROVIDER, UNKNOWN Admitting Unavailable Rodger Chavez Unavailable [phone] Ronaldo MOORE, Shakira S Primary Care Provider [phone] SHAKIRA HIGGINS Attending Unavailable RONALDO, SHAKIRA Admitting Unavailable RONALDO, [...] Attending Unavailable JUANITO, NGA Freedman Attending Unavailable JUANTIO, NGA E Attending Unavailable JUANITO, NGA E [...] [capsaicin topical] Drug Allergy [facility] (4 sources) Capsaicin; Translations: [CAPSAICIN] Drug Allergy 4 [facility] Repository (5 sources) Capsaicin Drug Allergy Unknown [facility] Other (8 sources) Capsaicin / Turpentine; Translations: [capsaicin topical] Drug Allergy [facility] (1 source) traZODone; Translations: [TRAZODONE] Drug Allergy 4 [facility] Repository (1 source) No Known Medication Allergies; Translations: [No Known Medication Allergies] Propensity to adverse reactions (disorder) [facility] Repository Medications Current Medications Medication Drug Class(es) Dates Sig (Normalized) Sig (Original) 0.4 ML cyclosporine 0.5 MG/ML Ophthalmic Suspension [Restasis] (9 sources) Start: 03-13-2020 take 1 drop(s) into the eye(s) twice daily Restasis 0.05% Emulsion 1 drop(s), Eye-Both, BID, Refill(s) 0 Start Date: 03/13/20 Status: Ordered armodafinil 250 mg oral tablet (9 sources) Start: 03-13-2020 take 1 tablet by mouth once daily armodafinil 250 mg oral tablet 250 mg = 1 tab(s), Oral, Daily, Refills(s) 0 Start Date: 03/13/20 Status: Ordered atorvastatin 40 mg oral tablet (16 sources) HMG-CoA Reductase Inhibitor Start: 03-13-2020 take 1 tablet by mouth at bedtime atorvastatin 40 mg Tab 40 mg = 1 tab(s), Oral, Bedtime, Refills(s) 0 Start Date: 03/13/20 Status: Ordered Comment on above: Take 40 mg by mouth once daily. bisacodyl 5 mg delayed release oral tablet (12 sources) Stimulant Laxative Start: 03-18-2020 take 4 tablets by mouth once daily Dulcolax 5 mg Tab-EC 20 mg = 4 tab(s), Oral, Once, at 1:00pm the day prior to colonoscopy, # 4 tab(s), Refills(s) 0, Pharmacy: [facility]/pharmacy #[id number], 157.5, cm, 03/18/20 13:44:00 EDT, Height/Length Dosing, 104.3, kg, 03/18/20 13:44:00 EDT, Weight Dosing Start Date: 03/18/20 Status: Ordered Comment on above: Take 20 mg by mouth. Breztri Aerosphere inhalation aerosol (9 sources) Start: 05-03-2023 take 2 puff(s) by [...] by mouth twice daily as needed. Calcium (12 sources) Phosphate Binder, Calcium Start: 03-13-2020 calcium 500 mg tablet 500 mg = 1 tab(s), Chewed, Daily, Refills(s) 0 Start Date: 03/13/20 Status: Ordered CALCIUM ORAL Yamil e by mouth once daily. 0 Active Comment on above: Take by mouth once d aily. cevimeline 30 mg oral capsule (13 sources) Cholinergic Receptor Agonist Start: 3 take [...] Active dicyclomine hydrochloride 10 mg oral capsule (17 sources) Anticholinergic Start: 2021 dicyclomine 10 mg Cap QID Start Date: 05/03/23 Status: Ordered Comment on above: Take 10 mg by mouth four times daily. 0.5 ml dulaglutide 3 mg/ml auto-injector (19 sources) GLP-1 Receptor Agonist Start: 2019 inject 1.5 mg by subcutaneous injection every week Trulicity Pen 1.5 mg/0.5 mL subcutaneous solution 1.5 mg, SubCutaneous, qWeek, Refills(s) 0 Start Date: 03/13/20 Status: Ordered Trulicity 3 MG/0 .5ML as directed Subcutaneous Active Comment on above: INJECT SUBCUTANEOUSL Y ONCE A WEEK empagliflozin 25 mg oral tablet (6 sources) Sodium-Glucose Cotransporter 2 Inhibitor Start: 11-14-2023 Jardiance 25 mg oral tablet Refills(s) 0 Start Date: 11/14/23 Status: Ordered estradiol 0.01 mg vaginal insert (19 sources) Estrogen Start: 03-13-2020 estradiol 10 mcg [...] day Active furosemide 40 mg oral tablet (16 sources) Loop Diuretic Start: 03-13-20 take 1 tablet by mouth once daily Lasix 40 mg Tab 40 mg = 1 tab(s), Oral, Daily, Refills(s) 0 Start Date: 03/13/20 Status: Ordered Comment on above: Take 40 mg by mouth once daily. gabapentin 300 mg oral capsule (17 sources) Anti-epileptic Agent Start: 03-13-20 take 1 capsule by mouth at bedtime gabapentin 300 mg Cap 300 mg = 1 cap(s), Oral, Bedtime, Refills(s) 0 Start Date: 03/13/20 Status: Ordered Comment on above: Take 300 mg by mouth daily at bedtime. insulin, regular, human 500 unt/ml injectable solution (16 sources) Insulin Start: 03-13-20 Humulin R (Concentrated) [...] topical powder (7 sources) Polyene Antifungal Nystatin 134369 UNIT/GM 1 application Externally Twice a day Active Nystatin 749734 UNIT/GM 1 application Externally Twice a day Active omeprazole 40 mg delayed release oral capsule (9 sources) Proton Pump Inhibitor Start: 03-13-2020 take 1 capsule by mouth once daily omeprazole 40 mg Cap-DR 40 mg = 1 cap(s), Oral, Daily, Refills(s) 0 Start Date: 03/13/20 Status: Ordered pantoprazole 40 mg delayed release oral tablet (19 sources) Proton Pump Inhibitor Start: 05-03-[address] Tab 40 mg = 1 tab(s), BID Start Date: 05/03/23 Status: Ordered Start: 05-27-2020 take 1 tablet by jono once daily pantoprazole DR (PROTONIX) 40 mg tablet Take 40 mg by mouth once daily. 0 05/27/2020 Active Comment on above: Take 40 mg by mouth once daily. pravastatin sodium 40 mg oral tablet (14 sources) HMG-CoA Reductase Inhibitor Start: 04-21-2023 pravastatin 40 mg Tab 40 mg = 1 tab(s), Daily Start Date: 05/03/23 Status: Ordered take 1 tablet by mouth once lawson y Pravastatin 10 mg one tab orally daily Active Comment on above: Take 40 mg by mouth daily at bedtime. primidone 50 mg oral tablet (17 sources) Anti-epileptic Agent Start: 05-03-2023 primidone 50 [...] venlafaxine 150 mg extended release oral capsule (20 sources) Serotonin and Norepinephrine Reuptake Inhibitor Start: [...] once daily. Ventolin HFA 90 mcg/inh Aerosol (9 sources) Start: 03-13-2020 take 2 puff(s) by [...] Active Vitamin B12 250 mcg oral tablet (9 sources) Start: 03-13-2020 take 1 tablet by [...] Drug Class(es) Dates Sig (Normalized) Sig (Original) [id number] 200 actuat albuterol 0.09 mg/actuat metered dose [...] mg capsule cholecalciferol 0.05 mg oral capsule (10 sources) Vitamin D Start: 2019 take 1 [...] mcg by mo ut once daily. Diclofenac (15 sources) Nonsteroidal Anti-inflammatory Drug Start: 020 diclofenac [...] NASE) 50 mcg/actuation nasal spray Use 1 Alamo in each nostril as needed. 0 Active Comment on above: Use 1 Alamo in each nostril as needed. FREESTYLE JEANNE 2 SENSOR kit (3 sources) Start: FREESTYLE JEANNE 2 SENSOR kit hydrocortisone 25 mg/ml topical cream (12 sources) Corticosteroid Start: hydrocortisone (ANUSOL-HC) 2.5 % [...] y. levothyroxine sodium 0.15 mg oral tablet (19 sources) l-Thyroxine Start: 1 take 1 tablet [...] 10 actuat tiotropium 0.0025 mg/actuat inhalation spray (14 sources) Anticholinergic Start: 06-03-19 take 2 puff(s) [...] [Epigastric pain] Onset: 2 Episodic Anxiety disorders (9 sources) Mixed anxiety and depressive disorder 03-13-2020 Chronic Chronic obstructive pulmonary disease and bronchiectasis (9 sources) Chronic obstructive lung disease 03-13-2020 Chronic [...] Onset: 4 Episodic Deficiency and other anemia (9 sources) Iron deficiency anemia 03-18-2020 Episodic Diabetes mellitus with complications (13 sources) Type 2 diabetes mellitus with hypoglycemia without coma; Translations: [Type 2 diabetes mellitus with diabetic neuropathy, unspecified] Onset: 1 10-01-2020 Chronic Diabetes mellitus without complication (9 sources) Diabetes mellitus 03-13-2020 Chronic Disorders of lipid metabolism (10 sources) Hyperlipidemia, unspecified; Translations: [Hyperlipidemia] Onset: 1 03-13-2020 Chronic Diverticulosis and diverticulitis (4 sources) Diverticulitis of intestine, part unspecified, with perforation and abscess with bleeding; Translations: [DVTRCLI PRT UNS W/PERF ABSC W/BLEED] Onset: 2 Chronic Esophageal disorders (20 sources) Gastroesophageal reflux disease; Translations: [Gastro-esophageal reflux disease without esophagitis] Chronic Essential hypertension (9 sources) Hypertensive disorder 03-13-2020 Chronic Gastrointestinal hemorrhage (9 sources) Rectal hemorrhage 09-12-2020 Episodic Genitourinary symptoms and ill-defined conditions (15 sources) Mixed incontinence; Translations: [Incontinence] Onset: 3 Chronic Hemorrhoids (20 sources) Anal skin tag; Translations: [Hemorrhoids] 09-12-2020 Episodic Hepatitis (5 sources) Nonalcoholic steatohepatitis; Translations: [Nonalcoholic steatohepatitis (MENDEZ)] Onset: 3 Chronic Nausea and vomiting (19 sources) Nausea; Translations: [Nausea] Episodic Other aftercare (2 sources) residential (current) use of insulin; Translations: [HALFWAY CURRENT USE OF INSULIN] Onset: 1 Episodic Other aftercare (2 sources) Other press tender long goods (current) drug therapy; Translations: [OTH HALFWAY CURRENT DRUG THERAPY] Onset: 1 Episodic Other aftercare (1 source) residential (current) use of oral hypoglycemic drugs; Translations: [HALFWAY USE ORAL HYPOGLYCEMIC DX] Onset: 3 Episodic Other connective tissue disease (4 sources) Cramp and spasm; Translations: [CRAMP AND SPASM] Onset: 3 Episodic Other gastrointestinal disorders (5 sources) Diarrhea, unspecified; Translations: [DIARRHEA UNSPECIFIED] Onset: 2 Episodic Other gastrointestinal disorders (9 sources) Constipation 03-13-2020 Episodic Other gastrointestinal disorders (9 sources) Hyperplastic polyp of intestine 04-15-2020 Episodic Other gastrointestinal disorders (9 sources) Occult blood in stools 03-18-2020 Episodic Other hematologic conditions (2 sources) Hypersplenism; Translations: [HYPERSPLENISM] Onset: 3 Episodic Other hereditary and degenerative nervous system conditions (9 sources) Restless legs 03-13-2020 Chronic Other injuries and conditions due to external causes (1 source) History of falling; Translations: [HISTORY OF FALLING] Onset: 3 Episodic Other liver diseases (3 sources) Cirrhosis - non-alcoholic; Translations: [Unspecified cirrhosis of liver] Chronic Other liver diseases (1 source) Unspecified cirrhosis of liver; Translations: [UNSPECIFIED CIRRHOSIS OF LIVER] Onset: 3 Chronic Other nervous system disorders (9 sources) Peripheral nerve disease 03-13-2020 Chronic Other nervous system disorders (4 sources) Unsteadiness on feet; Translations: [UNSTEADINESS ON FEET] Onset: 3 Episodic Other nutritional; endocrine; and metabolic disorders (9 sources) Body mass index 30+ - obesity [...] BREAST] Onset: 3 Episodic Residual codes; unclassified (9 sources) FH: Liver disease 03-13-2020 Episodic Skin and subcutaneous tissue infections (9 sources) Furuncle 12-31-2020 Episodic Substance-related disorders (10 sources) Nicotine dependence, cigarettes, uncomplicated; Translations: [Smoker] Onset: 3 03-13-2020 Chronic Thyroid disorders (15 sources) Hypothyroidism, unspecified; Translations: [Hypothyroidism] Onset: 1 [...] Your Care Team Attending Physician - NGA WILKINS PA-C Primary Care Physician - SHAKIRA HIGGINS [...] Appointments Tuesday 11:20 AM EDT With: NGA WILKINS PA-C Where: [facility] Normal [address] [place] [address]- \.br\ You Need to Schedule the Following Appointments\.br\ Follow Up with NGA WILKINS PA-C, URL When: In 2 weeks\.br\ Where:\.br\ [address]\.br\ [place] [address]\.br\ \.br\ Medications\.br\ What How Much When Instructions\.br\ [...] Reviewed: 09/17/2021 Elsevier Patient Education ? 2022 [employer].br\ \.br\ [facility] Interdisciplinary Note - Soc ial Workeron 12-05-2023 Interdisciplinary Note - Snow Groomer Interdisciplinary Note - Snow Groomer Consult for positive depression screen received. Chart review completed and it was noted that this consult has been received in error as patient's depression screen score was 0. SW will remain available. Normal [facility] Urology Office/Clinic Noteon 12-05-2023 Urology Office/Clinic Note [...] Urnls Dip Stick Auto w/o Microscopy POC 69589 Follow-up With When Contact Information JUANITO BREWER, NGA Freedman, URL In 2 weeks [address] [place] [address] Additional Instructions: Patient Education Kegel [...] 1 cap (more content not included)... Normal [facility] Comment on above: Result Comment: Elec tronically Signed By: NGA WILKINS PA-C\Date and Time Signed: 12/05/23 12:19 EDT Ambulatory Visit Summaryon 0 11-28-2023 Ambulatory Visit Summary Ambulatory Visit Summary RENETTA BARBOSA :1960 Visit Date:11/28/2023 Ambulatory Visit Instructions Your Diagnosis Mixed incontinence urge and stress Your Care Team Attending Physician - NGA WILKINS PA-C Primary Care Physician - SHAKIRA HIGGINS [...] Appointments Tuesday 11:20 AM EDT With: NGA WILKINS PA-C Where: [facility] Invalid Interpretation Code [address] [place] [place] [address]- \.br\ Tuesday 11:20 AM EDT \.br\ With: NGA WILKINS PA-C\.br\ Where: [facility] Urology Office/Clinic Noteon 11-28-2023 Urology Office/Clinic Note [...] and discuss other options, try PFPT at [facility] or [facility]. Pt prefers options #1. Follow up 1 week for PFPT #4 or sooner if needed. Pt understands and agrees with plan. Follow-up With When Contact Information JUANITO BREWER, NGA Freedman, URL [address] [facility] [place] [address] Additional Instructions: 1 week PFPT #4 Patient Education Kegel Exercises Documentation recorded by the scribtano Batista accurately reflects the services(s) I performed and decisions made by me. Authenticated by Nga Wilkins PA-C on 11/28/2023 12:54:06. ILorie, personally scribed [...] Daily Magdaleno (more content not included)... Normal [facility] Comment on above: Result Comment: Elec tronically Signed By: JUANITO BREWER, NGA Freedman\.br\Date and Time Signed: 11/28/23 12:54 EDT\.br\Electronically Co-Signed By: Lorie Batista\.br\Date and Time Co-Signed: 11/28/23 11:57 EDT Ambulatory Visit Summaryon 0 11-21-2023 Ambulatory Visit Summary Ambulatory Visit Summary RENETTA BARBOSA :1960 Visit Date:11/21/2023 Ambulatory Visit Instructions Your Diagnosis Mixed incontinence urge and stress Your Care Team Attending Physician - NGA WILKINS PA-C Primary Care Physician - SHAKIRA HIGGINS [...] Appointments Tuesday 11:20 AM EDT With: NGA WILKINS PA-C Where: [facility] Invalid Interpretation Code [address] [place] [address]- \.br\ Tuesday 11:20 AM EDT \.br\ With: NGA WILKINS PA-C\.br\ Where: [facility] Urology Office/Clinic Noteon 11-21-2023 Urology Office/Clinic Note [...] in 1 week(s) for session #3 Ordered: 44114 EMG anal/urethral sphincter no needle 06157 Biofeedback training, perineal muscles, anorectal 09245 Anorectal Manometry 83856 ELECTRICAL STIMULATION 35397 Urnls Dip Stick Auto w/o Microscopy POC 97205 Follow-up With When Contact Information NGA WILKINS PA-C, URL In 1 week [address] [place] [address] Additional Instructions: Patient Education Overactive [...] Use:. Cigarett (more content not included)... Normal [facility] Comment on above: Result Comment: Elec tronically Signed By: NGA WILKINS PA-C\.br\Date and Time Signed: 11/21/23 12:27 EDT Consent for Procedure/Surger yon 11-15-2023 Consent for Procedure/Surgery [id number]#1.00 TIFF Normal [facility] EMG Electromyographyon 11-14 EMG Electromyography [id number]#1.00 TIFF Normal [facility] Ambulatory Visit Summaryon 0 11-14-2023 Ambulatory Visit Summary RENETTA BARBOSA Gabriela :1960 Visit Date:11/14/2023 Ambulatory Visit Instructions Your Diagnosis Mixed incontinence urge and stress Your Care Team Attending Physician - NGA WILKINS PA-C Primary Care Physician - SHAKIRA HIGGINS [...] Appointments Tuesday 11:20 AM EDT With: NGA WILKINS PA-C Where: [facility] Invalid Interpretation Code [address] [place] [address]- \.br\ Tuesday 11:20 AM EDT \.br\ With: NGA WILKINS PA-C\.br\ Where: [facility] Patient Educationon 11-14-19 Patient Education Obstetrics and [...] health care provider. General instructions ? Take jzas-dne-xsqohjp and prescription medicines only as told by [...] monitor yo (more content not included)... Normal [facility] Urology Office/Clinic Noteon 11-14-2023 Urology Office/Clinic Note [...] in 1 week(s) for session #2 Ordered: 38705 EMG anal/urethral sphincter no needle 85803 Biofeedback training, perineal muscles, anorectal 99731 Anorectal Manometry 84559 ELECTRICAL STIMULATION 91011 Urnls Dip Stick Auto w/o Microscopy POC 75923 Urnls Dip Stick Auto w/o Microscopy POC 50424 Follow-up With When Contact Information NGA WILKINS PA-C, YARA In 1 week [address] [place] [address] Additional Instructions: Patient Education Overactive [...] or more (more content not included)... Normal [facility] Comment on above: Result Comment: Elec tronically Signed By: JUANITO BREWER, NGA Freedman\.br\Date and Time Signed: 11/14/23 12:44 EDT Office Visiton 08-02-2023 Follow-up visit [id number] Renetta Barbosa 1960 F Date Provider Department Center 08/02/2023 CHAVA NUNES FENG [facility] Family History Problem Relation Age of Onset Diabetes Mother Lung cancer Father Breast cancer Maternal Grandmother Family Status - Relation Status Age at Mother Father Maternal Grandmother Level of Service:26436 [place] OFFICE/OUTPATIENT NEW MODERATE MDM 45 MINUTES Normal [facility] CBC W Auto Differential pane l (Bld)on 06-23-2023 Basophils (Bld) [#/Vol] 0.03 10*3/uL Normal <0.11 [facility] Comment on above: Order Comment: Speci men Type: BLOOD SPECIMEN Ordering Facility: [facility] Address: [address] [place] [place] [address] Performed By: #### 5 7021-8 #### [facility] CLIA [id number] [address] [place] [address]9554 Basophils/100 WBC (Bld) 0.5 % Normal [facility] Comment on above: Order Comment: Speci men Type: BLOOD SPECIMEN Ordering Facility: [facility] Address: [address] [place] [address] Performed By: #### 5 7021-8 #### [facility] CLIA [id number] [address] [place] [address]859 Differential cell count method Nom (Bld) Auto Normal [facility] Comment on above: Order Comment: Speci men Type: BLOOD SPECIMEN Ordering Facility: [facility] Address: [address] [place] [address] Performed By: #### 5 7021-8 #### [facility] CLIA [id number] [address] [place] [address] 25638 Eosinophils (Bld) [#/Vol] 0.06 10*3/uL Normal <0.46 [facility] Comment on above: Order Comment: Speci men Type: BLOOD SPECIMEN Ordering Facility: [facility] Address: [address] [place] [address] Performed By: #### 5 7021-8 #### [facility] CLIA [id number] [address] [place] [address] 86885 Eosinophils/100 WBC (Bld) 1.0 % Normal [facility] Comment on above: Order Comment: Speci men Type: BLOOD SPECIMEN Ordering Facility: [facility] Address: [address] [place] [address] Performed By: #### 5 7021-8 #### [facility] CLIA [id number] [address] [place] [address]4091 Erythrocyte distribution width (RBC) [Ratio] 16.0 % High 11.5-15.0 [facility] Comment on above: Order Comment: Speci men Type: BLOOD SPECIMEN Ordering Facility: [facility] Address: [address] [place] [address] Performed By: #### 5 7021-8 #### [facility] CLIA [id number] [address] [place] [address] 07063 Hematocrit (Bld) [Volume fraction] 43.6 % Normal 36.0-46.0 [facility] Comment on above: Order Comment: Speci men Type: BLOOD SPECIMEN Ordering Facility: [facility] Address: [facility] [place] [address] Performed By: #### 5 7021-8 #### [facility] CLIA [id number] [address] [place] [address] 89027 Hemoglobin (Bld) [Mass/Vol] 13.7 g/dL Normal 11.5-15.5 [facility] Comment on above: Order Comment: Speci men Type: BLOOD SPECIMEN Ordering Facility: [facility] Address: [address] [place], [place] [id number] Performed By: #### 5 7021-8 #### [facility] CLIA [id number] [address] [place] [address] 65345 Immature granulocytes (Bld) [#/Vol] 10*3/uL Normal <0.10 [facility] Comment on above: Order Comment: Speci men Type: BLOOD SPECIMEN Ordering Facility: [facility] Address: [address] [place] [address] Performed By: #### 5 7021-8 #### [facility] CLIA [id number] [address] [place] [address] 75949 Immature granulocytes/100 WBC (Bld) 0.3 % Normal [facility] Comment on above: Order Comment: Speci men Type: BLOOD SPECIMEN Ordering Facility: [facility] Address: [address] [place] [address] Performed By: #### 5 7021-8 #### [facility] CLIA [id number] [address] [place] [address] 44434 Lymphocytes (Bld) [#/Vol] 1.03 10*3/uL Normal 1.00-4.00 [facility] Comment on above: Order Comment: Speci men Type: BLOOD SPECIMEN Ordering Facility: [facility] Address: [address] [place] [address] Performed By: #### 5 7021-8 #### [facility] CLIA [id number] [address] [place] [address] 48757 Lymphocytes/100 WBC (Bld) 17.3 % Normal [facility] Comment on above: Order Comment: Speci men Type: BLOOD SPECIMEN Ordering Facility: [facility] Address: [address] [place] [address] Performed By: #### 5 7021-8 #### [facility] CLIA [id number] [address] [place] [address] 07900 MCH (RBC) [Entitic mass] 26.7 pg Normal 26.0-34.0 [facility] Comment on above: Order Comment: Speci men Type: BLOOD SPECIMEN Ordering Facility: [facility] Address: [address] [place] [address] Performed By: #### 5 7021-8 #### [facility] CLIA [id number] [address] [place] [address] 15928 MCHC (RBC) [Mass/Vol] 31.4 g/dL Normal 30.5-36.0 [facility] Comment on above: Order Comment: Speci men Type: BLOOD SPECIMEN Ordering Facility: [facility] Address: [address] [place] [address] Performed By: #### 5 7021-8 #### [facility] CLIA [id number] [address] [place] [address] 92875 MCV (RBC) [Entitic vol] 85.0 fL Normal 80.0-100.0 [facility] Comment on above: Order Comment: Speci men Type: BLOOD SPECIMEN Ordering Facility: [facility] Address: [address] [place] [address] Performed By: #### 5 7021-8 #### [facility] CLIA [id number] [address] [place] [address] 77077 Monocytes (Bld) [#/Vol] 0.35 10*3/uL Normal <0.87 [facility] Comment on above: Order Comment: Speci men Type: BLOOD SPECIMEN Ordering Facility: [facility] Address: [address] [place] [address], [place] [address] Performed By: #### 5 7021-8 #### [facility] CLIA [id number] [address] [place] [address] 16284 Monocytes/100 WBC (Bld) 5.9 % Normal [facility] Comment on above: Order Comment: Speci men Type: BLOOD SPECIMEN Ordering Facility: [facility] Address: [address] [place], [place] [address] Performed By: #### 5 7021-8 #### [facility] CLIA [id number] [address] [place] [address]2709 Neutrophils (Bld) [#/Vol] 4.46 10*3/uL Normal 1.45-7.50 [facility] Comment on above: Order Comment: Speci men Type: BLOOD SPECIMEN Ordering Facility: [facility] Address: [address] [place] [address] Performed By: #### 5 7021-8 #### [facility] CLIA [id number] [address] [place] [address] 01982 Neutrophils/100 WBC (Bld) 75.0 % Normal [facility] Comment on above: Order Comment: Speci men Type: BLOOD SPECIMEN Ordering Facility: [facility] Address: [address] [place] [address] Performed By: #### 5 7021-8 #### [facility] CLIA [id number] [address] [place] [address] 12267 Nucleated RBC (Bld) [#/Vol] 10*3/uL Normal <0.01 [facility] Comment on above: Order Comment: Speci men Type: BLOOD SPECIMEN Ordering Facility: [facility] Address: [address] [place], [place] [address] Performed By: #### 5 7021-8 #### [facility] CLIA [id number] [address] [place] [address] 53009 Nucleated RBC/100 WBC (Bld) [Ratio] 0.0 /100 WBC Normal [facility] Comment on above: Order Comment: Speci men Type: BLOOD SPECIMEN Ordering Facility: [facility] Address: [address] [place] [address] Performed By: #### 5 7021-8 #### [facility] CLIA [id number] [address] [place] [address] 67859 Platelet mean volume (Bld) [Entitic vol] 11.9 fL Normal 9.0-12.7 [facility] Comment on above: Order Comment: Speci men Type: BLOOD SPECIMEN Ordering Facility: [facility] Address: [address] [place] [address] Performed By: #### 5 7021-8 #### [facility] CLIA [id number] [address] [place] [address] 66260 Platelets (Bld) [#/Vol] 140 10*3/uL Low 150-400 [facility] Comment on above: Order Comment: Speci men Type: BLOOD SPECIMEN Ordering Facility: [facility] Address: [address] [place] [address] Performed By: #### 5 7021-8 #### [facility] CLIA [id number] [address] [place] [address] 64807 RBC (Bld) [#/Vol] 5.13 10*6/uL Normal 3.90-5.20 [facility] Comment on above: Order Comment: Speci men Type: BLOOD SPECIMEN Ordering Facility: [facility] Address: [address] [place] [address] Performed By: #### 5 7021-8 #### [facility] CLIA [id number] [address] [place] [address] 67033 WBC (Bld) [#/Vol] 5.95 10*3/uL Normal 3.70-11.00 [facility] Comment on above: Order Comment: Speci men Type: BLOOD SPECIMEN Ordering Facility: [facility] Address: [address] [place] [address] Performed By: #### 5 7021-8 #### [facility] CLIA [id number] [address] [place] [address] 41456 CNOVSPon 06-23-2023 CNOVSP Visit (SP) Office ([place]) RENETTA BARBOSA ([id number]) 1960 F Date Time Provider Department 06/23/23 2:00 PM ANDRE FUNES During your visit today, we recorded the following information about you: Temperature Pulse Respiration Blood pressure 97.6 degrees 107/minute 18/minute 149/93 Weight Height 91.1 kg 1.575 m Andre Funes MD 06/26/2023 1:35 PM Signed NAME: Renetta Barbosa CLINIC NO.: [id number] DATE OF SERVICE: [facility] Some elements in this clinic note that [...] HCC screening PLAN: Need US results from [facility] from last week. Recommend alternating follow up [...] returns today in follow up. US in [facility] with enlarged nodular liver no masses. She [...] medical changes. (more content not included)... Normal [facility] Comprehensive metabolic 2000 panelon 06-23-2023 Albumin [Mass/Vol] 4.5 g/dL Normal 3.9-4.9 [facility] Comment on above: Order Comment: Kevin quintero Type: BLOOD SPECIMEN Ordering Facility: [facility] Address: [address] [place] [address] Performed By: #### 2 4323-8 #### [facility] CLIA [id number] [address] [place] [address] ALP [Catalytic activity/Vol] 112 U/L Normal 34-123 [facility] Comment on above: Order Comment: Kevin quintero Type: BLOOD SPECIMEN Ordering Facility: [facility] Address: [address] [place] [address] Performed By: #### 2 4323-8 #### [facility] CLIA [id number] [address] [place] [address] ALT [Catalytic activity/Vol] 29 U/L Normal 7-38 [facility] Comment on above: Order Comment: Speci men Type: BLOOD SPECIMEN Ordering Facility: [facility] Address: [address] [place] [address] Performed By: #### 2 4323-8 #### [facility] CLIA [id number] [address] [place] [address] Anion gap [Moles/Vol] 14 mmol/L Normal 9-18 [facility] Comment on above: Order Comment: Speci men Type: BLOOD SPECIMEN Ordering Facility: [facility] Address: [address] [phone] Performed By: #### 2 4323-8 #### [facility] CLIA [id number] [address] [place] [address] AST [Catalytic activity/Vol] 31 U/L Normal 13-35 [facility] Comment on above: Order Comment: Speci men Type: BLOOD SPECIMEN Ordering Facility: [facility] Address: [address] [id number] Performed By: #### 2 4323-8 #### [facility] CLIA [id number] [address] [place] [address] Bilirubin [Mass/Vol] 0.4 mg/dL Normal 0.2-1.3 [facility] Comment on above: Order Comment: Speci men Type: BLOOD SPECIMEN Ordering Facility: [facility] Address: [address] [id number] Performed By: #### 2 4323-8 #### [facility] CLIA [id number] [address] [place] [address] Calcium [Mass/Vol] 9.8 mg/dL Normal 8.5-10.2 [facility] Comment on above: Order Comment: Speci men Type: BLOOD SPECIMEN Ordering Facility: [facility] Address: [address] [id number] Performed By: #### 2 4323-8 #### [facility] CLIA [id number] [address] [place] [address] Chloride [Moles/Vol] 100 mmol/L Normal 97-105 [facility] Comment on above: Order Comment: Speci men Type: BLOOD SPECIMEN Ordering Facility: [facility] Address: [address] [place] [address] Performed By: #### 2 4323-8 #### [facility] CLIA [id number] [address] [place] [address] CO2 [Moles/Vol] 19 mmol/L Low 22-30 [facility] Comment on above: Order Comment: Speci men Type: BLOOD SPECIMEN Ordering Facility: [facility] Address: [address] [place] [address] Performed By: #### 2 4323-8 #### [facility] CLIA [id number] [address] [place] [address] 10114 Creatinine [Mass/Vol] 0.72 mg/dL Normal 0.58-0.96 [facility] Comment on above: Order Comment: Speci men Type: BLOOD SPECIMEN Ordering Facility: [facility] Address: [address] [place] [address] Performed By: #### 2 4323-8 #### [facility] CLIA [id number] [address] [place] [address]171 Creatinine and Glomerular filtration rate.predicted panel (S/P/Bld) 94 mL/min/1.73m??? Normal >=60 [facility] Comment on above: Order Comment: Speci men Type: BLOOD SPECIMEN Ordering Facility: [facility] Address: [address] [place] [address] Result Comment: Alisha mated Glomerular Filtration Rate [...] GFR. Performed By: #### 2 4323-8 #### [facility] CLIA [id number] [address] [place] [address] 83548 Glucose [Mass/Vol] 316 mg/dL High 74-99 [facility] Comment on above: Order Comment: Speci men Type: BLOOD SPECIMEN Ordering Facility: [facility] Address: [address] [place] [address]81 Result Comment: The [place] [employer] Association (ADA) provides guidance for cutoff [...] Standards of Medical Care in Diabetes 2016, [place] [employer]. Diabetes Care. 2016.39(Suppl 1). Performed By: #### 2 4323-8 #### [facility] CLIA [id number] [address] [place] [address] 61923 Potassium [Moles/Vol] 3.9 mmol/L Normal 3.7-5.1 [facility] Comment on above: Order Comment: Napoleoni men Type: BLOOD SPECIMEN Ordering Facility: [facility] Address: [address] [place] [address] Performed By: #### 2 4323-8 #### [facility] CLIA [id number] [address] [place] [address] 13939 Protein [Mass/Vol] 7.6 g/dL Normal 6.3-8.0 [facility] Comment on above: Order Comment: Speci men Type: BLOOD SPECIMEN Ordering Facility: [facility] Address: [address] [place] [address] Performed By: #### 2 4323-8 #### [facility] CLIA [id number] [address] [place] [address] 01288 Sodium [Moles/Vol] 133 mmol/L Low 136-144 [facility] Comment on above: Order Comment: Speci men Type: BLOOD SPECIMEN Ordering Facility: [facility] Address: [address] [place] [address] Performed By: #### 2 4323-8 #### [facility] CLIA [id number] [address] [place] [address]409 Urea nitrogen [Mass/Vol] 14 mg/dL Normal 7-21 [facility] Comment on above: Order Comment: Speci men Type: BLOOD SPECIMEN Ordering Facility: [facility] Address: [address] [place] [address] Performed By: #### 2 4323-8 #### [facility] CLIA [id number] [address] [place] [address] 90081 Ferritin SerPl-mCncon 2023 Ferritin [Mass/Vol] 20.1 ng/mL Normal 14.7-205.1 [facility] Comment on above: Order Comment: Speci men Type: BLOOD SPECIMEN Ordering Facility: [facility] Address: [address] [place] [address] Performed By: #### 5 0190-8, 2132-9, 2276-4, 2284-8 #### [facility] CLIA [id number] [address] [place] [address] [place] Folate SerPl-mCncon 06-23-19 24 Folate [Mass/Vol] 11.2 ng/mL Normal >4.7 [facility] Comment on above: Order Comment: Speci men Type: BLOOD SPECIMEN Ordering Facility: [facility] Address: [address] [place] [address] Performed By: #### 5 0190-8, 2132-9, 2276-4, 2284-8 #### [facility] CLIA [id number] [address] [place] [address] [place] Iron and Iron binding capaci ty panelon 06-23-2023 Iron [Mass/Vol] 96 ug/dL Normal 41-186 [facility] Comment on above: Order Comment: Speci men Type: BLOOD SPECIMEN Ordering Facility: [facility] Address: [address] [place], [place] [address] Performed By: #### 5 0190-8, 9, 2275-08, 2283-12 #### [facility] CLIA [id number] [address] [place], [place] [address] [place] Iron binding capacity [Mass/Vol] 434 ug/dL High 232-386 [facility] Comment on above: Order Comment: Speci men Type: BLOOD SPECIMEN Ordering Facility: [facility] Address: [address] [place], [place] [address] Performed By: #### 5 0190-8, 9, 2275-08, 2283-12 #### [facility] CLIA [id number] [address] [place], [place] [address] [place] Iron/TIBC [Molar ratio] 22.1 % Normal 15.0-57.0 [facility] Comment on above: Order Comment: Speci men Type: BLOOD SPECIMEN Ordering Facility: [facility] Address: [address] [place], [place] [address] Performed By: #### 5 0190-8, 9, 2275-08, 2283-12 #### [facility] CLIA [id number] [address] [place] [address] [place] Vit B12 [facility] 06-23-2 024 Cobalamin (Vitamin B12) [Mass/Vol] 586 pg/mL Normal 232-1245 [facility] Comment on above: Order Comment: Speci men Type: BLOOD SPECIMEN Ordering Facility: [facility] Address: [address] [place], [place] [address] Performed By: #### 5 0190-8, 9, 2275-08, 2283-12 #### [facility] CLIA [id number] [address] [place], [place] [address] [place] Office Visiton 06-21-2023 Follow-up visit [id number] Renetta Barbosa 1960 F Date Provider Department Center 06/21/2023 Jose6-MAHAMED VILLELA [facility] Family History Problem Relation Age of Onset Diabetes Mother Lung cancer Father Breast cancer Maternal Grandmother Family Status - Relation Status Age at Mother Father Maternal Grandmother Level of Service:37601 [place] OFFICE/OUTPATIENT NEW MODERATE MDM 45 MINUTES Normal [facility] Reportson 05-04-2023 Lab Reports [id number] 0TIFF Normal [facility] Physician Referralon 023 Physician Referral [id number] 0TIFF Normal [facility] Screenson 05-04-2023 Screens [id number] 0TIFF Normal [facility] Patient Educationon 05-03-20 23 Patient Education Obstetrics [...] health care provider. General instructions ? Take ikzw-syi-knmqubq and prescription medicines only as told by [...] monitor yo (more content not included)... Normal [facility] CT LUNG CANCER SCREENINGon 0 10-20-2022 CT [...] LEONEL MATA Date: 2022-10-20 08:02 Normal [facility] CBC AUTO DIFFon 10-19-2022 BASO # 0.0 103/ul Normal 0.0-0.1 [facility] Comment on above: Performed By: #### C BC #### [facility] [address] [address] [address] Blanquita Farris Basophils/100 WBC (Bld) 0.4 % Normal 0.2-2.0 [facility] Comment on above: Performed By: #### C BC #### [facility] [address] [address] [address] Blanquita Farris EO # 0.1 103/ul Normal 0.0-0.7 [facility] Comment on above: Performed By: #### C BC #### [facility] [address] [place] [address] Dr. Blanquita Farris Eosinophils/100 WBC (Bld) 1.5 % Normal 0.9-7.0 [facility] Comment on above: Performed By: #### C BC #### [facility] [address] [address] [address] Blanquita Farris Erythrocyte distribution width (RBC) [Ratio] 15.3 % Critically high 11.0-15.0 [facility] Comment on above: Performed By: #### C BC #### [facility] [address] [address] [address] Blanquita Farris Hematocrit (Bld) [Volume fraction] 42.7 % Normal 36.0-48.0 [facility] Comment on above: Performed By: #### C BC #### [facility] [address] [address] [address] Blanquita Farris Hemoglobin (Bld) [Mass/Vol] 13.8 g/dL Normal 12.0-16.0 [facility] Comment on above: Performed By: #### C BC #### [facility] [address] [address] [address] Blanquita Farris IG # 0.04 10e3/ul Critically high 0.00-0.03 [facility] Comment on above: Performed By: #### C BC #### [facility] [address] [place] [address] Dr. Blanquita Farris IG % 0.6 % Critically high 0.0-0.5 [facility] Comment on above: Performed By: #### C BC #### [facility] [address] [place] [address] Dr. Blanquita Farris LYMPH # 1.2 103/ul Normal 1.2-3.8 [facility] Comment on above: Performed By: #### C BC #### [facility] [address] [place] [address] Dr. Blanquita Farris Lymphocytes/100 WBC (Bld) 18.0 % Critically low 20.5-60.0 [facility] Comment on above: Performed By: #### C BC #### [facility] [address] [place] [address] Dr. Blanquita Farris MANUAL DIFF REQ NO Normal [facility] Comment on above: Performed By: #### C BC #### [facility] [address] [place] [address] Dr. Blanquita Farris MCH (RBC) [Entitic mass] 26.8 pg Normal 26.7-34.0 [facility] Comment on above: Performed By: #### C BC #### [facility] [address] [place] [address] Dr. Blanquita Farris MCHC (RBC) [Mass/Vol] 32.3 g/dL Normal 29.9-35.2 [facility] Comment on above: Performed By: #### C BC #### [facility] [address] [place] [address] Dr. Blanquita Farris MCV (RBC) [Entitic vol] 83.1 fL Normal 81.0-99.0 [facility] Comment on above: Performed By: #### C BC #### [facility] [address] [place] [address] Dr. Blanquita Farris MONO # 0.4 103/ul Normal 0.3-0.8 [facility] Comment on above: Performed By: #### C BC #### [facility] [address] [place] [address] Dr. Blanquita Farris Monocytes/100 WBC (Bld) 5.4 % Normal 1.7-12.0 [facility] Comment on above: Performed By: #### C BC #### [facility] [address] [place] [address] Dr. Blanquita Farris NEUT # 5.0 103/ul Normal 1.4-6.5 [facility] Comment on above: Performed By: #### C BC #### [facility] [address] [place] [address] Dr. Blanquita Farris Neutrophils/100 WBC (Bld) 74.1 % Normal 43.0-75.0 [facility] Comment on above: Performed By: #### C BC #### [facility] [address] [place] [address] Dr. Blanquita Farris Platelet mean volume (Bld) [Entitic vol] 10.2 fL Normal 9.5-13.5 [facility] Comment on above: Performed By: #### C BC #### [facility] [address] [place] [address] Dr. Blanquita Farris PLT 180 103/ul Normal 150-450 [facility] Comment on above: Performed By: #### C BC #### [facility] [address] [place] [address] Dr. Blanquita Farris RBC 5.14 106/ul Normal 4.20-5.40 [facility] Comment on above: Performed By: #### C BC #### [facility] [address] [place] [address] Dr. Blanquita Farris WBC 6.8 103/ul Normal 4.0-11.0 [facility] Comment on above: Performed By: #### C BC #### [facility] [address] [place] [address] Dr. Blanquita Farris CPKon 10-19-2022 CK [Catalytic activity/Vol] 68 U/L Normal 26-192 [facility] Comment on above: Performed By: #### C MP, CK, TSH #### [facility] [address] [place], [place] [address] Dr. Blanquita Farris MG MAMM SCREEN 3D SANTIAGO CADon 10-19-2022 MG MAMM SCREEN 3D SANTIAGO CAD Patient: RENETTA BARBOSA Exam Date: 10/19/2022 : 1960 Gender:F Ordering : [facility] Admission #: [id number] Family : DR LUL DUTTON Order #: [id number] CLICK HERE TO VIEW EXAM RADIOLOGY REPORT [...] breast cancer at age 80. LOCATION: [facility] BREAST COMPOSITION: Scattered areas fibroglandular density. FINDINGS: [...] MD on 10/19/2022 at 13:50 Normal [facility] PROF 14(COMP METB)on 023 Albumin [Mass/Vol] 3.7 g/dL Normal 3.4-5.0 [facility] Comment on above: Performed By: #### C MP, CK, TSH #### [facility] [address] [place], [place] [address] Dr. Blanquita Farris Albumin/Globulin [Mass ratio] 0.8 {ratio} Normal [facility] Comment on above: Performed By: #### C MP, CK, TSH #### [facility] [address] [place], [place] [address] Dr. Blanquita Farris ALP [Catalytic activity/Vol] 120 U/L Critically high 46-116 [facility] Comment on above: Performed By: #### C MP, CK, TSH #### [facility] [address] [address] [address] Blanquita Farris ALT [Catalytic activity/Vol] 31 U/L Normal 14-59 [facility] Comment on above: Performed By: #### C MP, CK, TSH #### [facility] [address] [address] [address] Blanquita Farris Anion gap [Moles/Vol] 14.2 mmol/L Normal [facility] Comment on above: Performed By: #### C MP, CK, TSH #### [facility] [address] [address] [address] Blanquita Farris AST [Catalytic activity/Vol] 19 U/L Normal 15-37 [facility] Comment on above: Performed By: #### C MP, CK, TSH #### [facility] [address] [place] [address] Dr. Blanquita Farris Bilirubin [Mass/Vol] 0.3 mg/dL Normal 0.2-1.0 [facility] Comment on above: Performed By: #### C MP, CK, TSH #### [facility] [address] [place] [address] Dr. Blanquita Farris Calcium [Mass/Vol] 9.4 mg/dL Normal 8.5-10.1 [facility] Comment on above: Performed By: #### C MP, CK, TSH #### [facility] [address] [address] [address] Blanquita Farris Chloride [Moles/Vol] 101 mmol/L Normal 98-107 [facility] Comment on above: Performed By: #### C MP, CK, TSH #### [facility] [address] [address] [address] Blanquita Farris CO2 [Moles/Vol] 28.4 mmol/L Normal 21.0-32.0 [facility] Comment on above: Performed By: #### C MP, CK, TSH #### [facility] [address] [place] [address] Dr. Blanquita Farris Creatinine [Mass/Vol] 1.04 mg/dL Critically high 0.55-1.02 [facility] Comment on above: Performed By: #### C MP, CK, TSH #### [facility] [address] [address] [address] Blanquita Farris EGFR-AF MONTENEGRIN >60 Normal >=60 [facility] Comment on above: Performed By: #### C MP, CK, TSH #### [facility] [address] [address] [address] Blanquita Farris EGFR-NON AF MONTENEGRIN 54 mL/min/1.73m2 Critically low >=60 [facility] Comment on above: Performed By: #### C MP, CK, TSH #### [facility] [address] [place] [address] Dr. Blanquita Farris Globulin (S) [Mass/Vol] 4.6 g/dL Normal [facility] Comment on above: Performed By: #### C MP, CK, TSH #### [facility] [address] [address] [address] Blanquita Farris Glucose [Mass/Vol] 194 mg/dL Critically high 74-106 [facility] Comment on above: Performed By: #### C MP, CK, TSH #### [facility] [address] [address] [address] Blanquita Farris Potassium [Moles/Vol] 3.6 mmol/L Normal 3.5-5.1 [facility] Comment on above: Performed By: #### C MP, CK, TSH #### [facility] [address] [place] [address] Dr. Blanquita Farris Protein [Mass/Vol] 8.3 g/dL Critically high 6.4-8.2 [facility] Comment on above: Performed By: #### C MP, CK, TSH #### [facility] [address] [place] [address] Dr. Blanquita Farris Sodium [Moles/Vol] 140 mmol/L Normal 136-145 [facility] Comment on above: Performed By: #### C MP, CK, TSH #### [facility] [address] [address] [address] Blanquita Farris Urea nitrogen [Mass/Vol] 13.0 mg/dL Normal 7.0-18.0 [facility] Comment on above: Performed By: #### C MP, CK, TSH #### [facility] [address] [place] [address] Dr. Blanquita Farris Urea nitrogen/Creatinine [Mass ratio] 12.5 mg/mg Normal [facility] Comment on above: Performed By: #### C MP, CK, TSH #### [facility] [address] [place] [address] Dr. Blanquita Farris TSHon 10-19-2022 TSH 0.292 uIU/mL Critically low 0.358-3.740 [facility] Comment on above: Performed By: #### C MP, CK, TSH #### [facility] [address] [place] [address] Dr. Blanquita Farris VITAMIN B12on 10-19-2022 Cobalamin (Vitamin B12) [Mass/Vol] 912.0 pg/mL Normal 193.0-986.0 [facility] Comment on above: Performed By: #### V ITB12 #### [facility] [address] [place] [address] Dr. Blanquita Farris US SINGLE QUAD RT [...] by: KAILEE YANG Date: 2022-06-10 11:46 Normal [facility] US SPLEENon 06-10-2022 US SPLEEN EXAM: [...] by: KAILEE YANG Date: 2022-06-10 12:04 Normal [facility] LACTOFERRIN FECAL QUANTon Lactoferrin, Fecal, Quant. 1.96 ug/mL(g) Normal 0.00-7.24 [facility] Comment on above: Result Comment: . [...] (IBS). Performed By: #### I NSULIN #### [facility] [address] [address] [address] Blanquita Farris CALPROTECTIN, FECALon 2021 Calprotectin, Fecal 33 ug/g Normal 0-120 [facility] Comment on above: Result Comment: Conc entration Interpretation Follow-Up <16 - 50 ug/g Normal None >50 -120 ug/g Borderline Re-evaluate in 4-6 weeks >120 ug/g Abnormal Repeat as clinically indicated Performed By: #### C ALPOO #### [facility] [address] [address] [address] Blanquita Farris PANCREATIC ELASTASE FECALon 03-20-2022 Pancreatic Elastase, Fecal 364 ug Elast./g Normal >200 [facility] Comment on above: Result Comment: Korina re Pancreatic Insufficiency: <100 Moderate Pancreatic Insufficiency: 100 - 200 Normal: >200 Performed By: #### C BC #### [facility] [address] [place] [address] Dr. Blanquita Farris BOWEL DISORDERS EVALUATION R ULE-OUT CASCon 03-18-2022 Atypical pANCA Negative Normal Negative [facility] Comment on above: Performed By: #### C BC #### [facility] [address] [place] [address] Dr. Blanquita Farris Note: Comment Normal [facility] Comment on above: Result Comment: Sugg estive of Crohn's disease. Subsequent testing with the Crohn's Disease Prognostic Profile (828381) that includes antiglycan antibodies AMCA, ALCA, ACCA, and Xochitl may aid in the differentiation of clinical forms of CD and prognosis of disease progression. Performed By: #### C BC #### [facility] [address] [place] [address] Dr. Blanquita Farris Saccharomyces Cer. IgG 28.0 Units Critically high 0.0-24.9 [facility] Comment on above: Result Comment: Nega tive <20.0 Equivocal 20.1 - 24.9 Positive >or= 25.0 Performed By: #### C BC #### [facility] [address] [place] [address] Dr. Blanquita Farris tTG/DGP SCR Negative Normal Negative [facility] Comment on above: Performed By: #### C BC #### [facility] [address] [place] [address] Dr. Blanquita Farris INSULINon 03-16-2022 Insulin 43.0 uIU/mL Critically high 2.6-24.9 [facility] Comment on above: Performed By: #### I NSULIN #### [facility] [address] [place] [address] Dr. Blanquita Farris OCC BLD IMMUNO SCREENon 02-21 OCCULT BLOOD Negative Normal NEGATIVE [facility] Comment on above: Performed By: #### C BC #### [facility] [address] [place] [address] Dr. Blanquita Farris CBC AUTO DIFFon 03-15-2022 BASO # 0.0 103/ul Normal 0.0-0.1 [facility] Comment on above: Performed By: #### C BC #### [facility] [address] [place] [address] Dr. Blanquita Farris Basophils/100 WBC (Bld) 0.7 % Normal 0.2-2.0 [facility] Comment on above: Performed By: #### C BC #### [facility] [address] [place] [address] Dr. Blanquita Farris EO # 0.2 103/ul Normal 0.0-0.7 [facility] Comment on above: Performed By: #### C BC #### [facility] [address] [place] [address] Dr. Blanquita Farris Eosinophils/100 WBC (Bld) 2.7 % Normal 0.9-7.0 [facility] Comment on above: Performed By: #### C BC #### [facility] [address] [place] [address] Dr. Blanquita Farris Erythrocyte distribution width (RBC) [Ratio] 14.8 % Normal 11.0-15.0 [facility] Comment on above: Performed By: #### C BC #### [facility] [address] [place] [address] Dr. Blanquita Farris Hematocrit (Bld) [Volume fraction] 43.4 % Normal 36.0-48.0 [facility] Comment on above: Performed By: #### C BC #### [facility] [address] [place] [address] Dr. Blanquita Farris Hemoglobin (Bld) [Mass/Vol] 14.1 g/dL Normal 12.0-16.0 [facility] Comment on above: Performed By: #### C BC #### [facility] [address] [place] [address] Dr. Blanquita Farris IG # 0.03 10e3/ul Normal 0.00-0.03 [facility] Comment on above: Performed By: #### C BC #### [facility] [address] [place] [address] Dr. Blanquita Farris IG % 0.5 % Normal 0.0-0.5 [facility] Comment on above: Performed By: #### C BC #### [facility] [address] [place] [address] Dr. Blanquita Farris LYMPH # 1.1 103/ul Critically low 1.2-3.8 [facility] Comment on above: Performed By: #### C BC #### [facility] [address] [place] [address] Dr. Blanquita Farris Lymphocytes/100 WBC (Bld) 18.9 % Critically low 20.5-60.0 [facility] Comment on above: Performed By: #### C BC #### [facility] [address] [place] [address] Dr. Blanquita Farris MANUAL DIFF REQ NO Normal [facility] Comment on above: Performed By: #### C BC #### [facility] [address] [place] [address] Dr. Blanquita Farris MCH (RBC) [Entitic mass] 27.9 pg Normal 26.7-34.0 [facility] Comment on above: Performed By: #### C BC #### [facility] [address] [place] [address] Dr. Blanquita Farris MCHC (RBC) [Mass/Vol] 32.5 g/dL Normal 29.9-35.2 [facility] Comment on above: Performed By: #### C BC #### [facility] [address] [place] [address] Dr. Blanquita Farris MCV (RBC) [Entitic vol] 85.8 fL Normal 81.0-99.0 [facility] Comment on above: Performed By: #### C BC #### [facility] [address] [place] [address] Dr. Blanquita Farris MONO # 0.4 103/ul Normal 0.3-0.8 [facility] Comment on above: Performed By: #### C BC #### [facility] [address] [place] [address] Dr. Blanquita Farris Monocytes/100 WBC (Bld) 7.2 % Normal 1.7-12.0 [facility] Comment on above: Performed By: #### C BC #### [facility] [address] [place] [address] Dr. Blanquita Farris NEUT # 4.1 103/ul Normal 1.4-6.5 [facility] Comment on above: Performed By: #### C BC #### [facility] [address] [place] [address] Dr. Blanquita Farris Neutrophils/100 WBC (Bld) 70.0 % Normal 43.0-75.0 [facility] Comment on above: Performed By: #### C BC #### [facility] [address] [place] [address] Dr. Blanquita Farris Platelet mean volume (Bld) [Entitic vol] 10.4 fL Normal 9.5-13.5 [facility] Comment on above: Performed By: #### C BC #### [facility] [address] [place] [address] Dr. Blanquita Farris PLT 158 103/ul Normal 150-450 [facility] Comment on above: Performed By: #### C BC #### [facility] [address] [place] [address] Dr. Blanquita Farris RBC 5.06 106/ul Normal 4.20-5.40 [facility] Comment on above: Performed By: #### C BC #### [facility] [address] [place] [address] Dr. Blanquita Farris WBC 5.9 103/ul Normal 4.0-11.0 [facility] Comment on above: Performed By: #### C BC #### [facility] [address] [place] [address] Dr. Blanquita Farris FREE THYROXINE INDEX T7on FTI 4.00 Normal 1.30-4.50 [facility] Comment on above: Performed By: #### C BC #### [facility] [address] [place] [address] Dr. Blanquita Farris T3U 31.0 % Normal 30.0-39.0 [facility] Comment on above: Performed By: #### C BC #### [facility] [address] [address] [address] Blanquita Farris T4 [Mass/Vol] 12.90 ug/dL Normal 4.80-13.90 [facility] Comment on above: Performed By: #### C BC #### [facility] [address] [address] [address] Blanquita Farris GLYCOHEMOGLOBIN A1Con 2021 ADA RECOMMENDATION SEE BELOW Normal [facility] Comment on above: Result Comment: ADA RECOMMENDED LIMIT 4.0 - 6.0 ADA THERAPEUTIC TARGET < 7.0 ACTION SUGGESTED > 7.0 Performed By: #### A 1C #### [facility] [address] [address] [address] Blanquita Farris Glucose [Mass/Vol] 146 mg/dL Normal [facility] Comment on above: Performed By: #### A 1C #### [facility] [address] [address] [address] Blanquita Farris HbA1c (Bld) [Mass fraction] 6.7 % Critically high 4.5-6.2 [facility] Comment on above: Performed By: #### A 1C #### [facility] [address] [address] [address] Blanquita Farris IRONon 03-15-2022 Iron [Mass/Vol] 67.0 ug/dL Normal 50.0-170.0 [facility] Comment on above: Performed By: #### I KEON #### [facility] [address] [place] [address] Dr. Blanquita Farris LIPID PROFILEon 03-15-2022 CHOL-HDL RATIO NORM SEE BELOW Normal [facility] Comment on above: Result Comment: 3.3 - 4.4 LOW RISK 4.4 - 7.1 AVERAGE RISK 7.1 - 11.0 MODERATE RISK >11.0 HIGH RISK Performed By: #### C BC #### [facility] [address] [place] [address] Dr. Blanquita Farris Cholesterol [Mass/Vol] 137 mg/dL Normal <=200 [facility] Comment on above: Performed By: #### C BC #### [facility] [address] [address] [address] Blanquita Farris Cholesterol in HDL [Mass/Vol] 52 mg/dL Normal 40-60 [facility] Comment on above: Performed By: #### C BC #### [facility] [address] [place], [place] [address] Dr. Blanquita Farris Cholesterol in LDL [Mass/Vol] 62.0 mg/dL Normal [facility] Comment on above: Performed By: #### C BC #### [facility] [address] [address] [address] Blanquita Farris Cholesterol.total/C holesterol in HDL [Mass ratio] 2.6 {ratio} Normal [facility] Comment on above: Performed By: #### C BC #### [facility] [address] [address] [address] Blanquita Farris HDL NORMAL > or = 60 mg/dl - LO W CARDIOVASCULAR RISK <40 mg/dl - HIGH CARDIOVASCULAR RISK Normal [facility] Comment on above: Performed By: #### C BC #### [facility] [address] [address] [address] Blanquita Farris LDL CALC NORMAL SEE BELOW Normal [facility] Comment on above: Result Comment: <100 mg/dl OPTIMAL 100 - 129 mg/dl NEAR OR ABOVE OPTIMAL 130 - 159 mg/dl BORDERLINE HIGH 160 - 189 mg/dl HIGH >190 mg/dl VERY HIGH Performed By: #### C BC #### [facility] [address] [address] [address] Blanquita Farris Triglyceride [Mass/Vol] 115 mg/dL Normal <=150 [facility] Comment on above: Performed By: #### C BC #### [facility] [address] [address] [address] Blanquita Farris VLDL CALC 23.0 mg/dL Normal [facility] Comment on above: Performed By: #### C BC #### [facility] [address] [address] [address] Blanquita Farris PROF 14(COMP METB)on 10-24-2 022 Albumin [Mass/Vol] 4.1 g/dL Normal 3.4-5.0 [facility] Comment on above: Performed By: #### C BC #### [facility] [address] [place] [address] Dr. Blanquita Farris Albumin/Globulin [Mass ratio] 1.0 {ratio} Normal [facility] Comment on above: Performed By: #### C BC #### [facility] [address] [place] [address] Dr. Blanquita Farris ALP [Catalytic activity/Vol] 94 U/L Normal 46-116 [facility] Comment on above: Performed By: #### C BC #### [facility] [address] [place] [address] Dr. Blanquita Farris ALT [Catalytic activity/Vol] 32 U/L Normal 14-59 [facility] Comment on above: Performed By: #### C BC #### [facility] [address] [place] [address] Dr. Blanquita Farris Anion gap [Moles/Vol] 8.8 mmol/L Normal [facility] Comment on above: Performed By: #### C BC #### [facility] [address] [place] [address] Dr. Blanquita Farris AST [Catalytic activity/Vol] 26 U/L Normal 15-37 [facility] Comment on above: Performed By: #### C BC #### [facility] [address] [place] [address] Dr. Blanquita Farris Bilirubin [Mass/Vol] 0.4 mg/dL Normal 0.2-1.0 [facility] Comment on above: Performed By: #### C BC #### [facility] [address] [place] [address] Dr. Blanquita Farris Calcium [Mass/Vol] 9.0 mg/dL Normal 8.5-10.1 [facility] Comment on above: Performed By: #### C BC #### [facility] [address] [place] [address] Dr. Blanquita Farris Chloride [Moles/Vol] 100 mmol/L Normal 98-107 [facility] Comment on above: Performed By: #### C BC #### [facility] [address] [address] [address] Blanquita Farris CO2 [Moles/Vol] 31.6 mmol/L Normal 21.0-32.0 [facility] Comment on above: Performed By: #### C BC #### [facility] [address] [address] [address] Blanquita Farris Creatinine [Mass/Vol] 0.87 mg/dL Normal 0.55-1.02 [facility] Comment on above: Performed By: #### C BC #### [facility] [address] [address] [address] Blanquita Farris EGFR-AF MONTENEGRIN >60 Normal >=60 [facility] Comment on above: Performed By: #### C BC #### [facility] [address] [place] [address] Dr. Blanquita Farris EGFR-NON AF MONTENEGRIN >60 Normal >=60 [facility] Comment on above: Performed By: #### C BC #### [facility] [address] [place] [address] Dr. Blanquita Farris Globulin (S) [Mass/Vol] 4.0 g/dL Normal [facility] Comment on above: Performed By: #### C BC #### [facility] [address] [place] [address] Dr. Blanquita Farris Glucose [Mass/Vol] 192 mg/dL Critically high 74-106 [facility] Comment on above: Performed By: #### C BC #### [facility] [address] [place] [address] Dr. Blanquita Farris Potassium [Moles/Vol] 3.4 mmol/L Critically low 3.5-5.1 [facility] Comment on above: Performed By: #### C BC #### [facility] [address] [place] [address] Dr. Blanquita Farris Protein [Mass/Vol] 8.1 g/dL Normal 6.4-8.2 [facility] Comment on above: Performed By: #### C BC #### [facility] [address] [address] [address] Blanquita Farris Sodium [Moles/Vol] 137 mmol/L Normal 136-145 [facility] Comment on above: Performed By: #### C BC #### [facility] [address] [place] [address] Dr. Blanquita Farris Urea nitrogen [Mass/Vol] 9.0 mg/dL Normal 7.0-18.0 [facility] Comment on above: Performed By: #### C BC #### [facility] [address] [place] [address] Dr. Blanquita Farris Urea nitrogen/Creatinine [Mass ratio] 10.3 mg/mg Normal [facility] Comment on above: Performed By: #### C BC #### [facility] [address] [place] [address] Dr. Blanquita Farris PROTIMEon 03-15-2022 INR Coag (PPP) [Relative time] 1.15 {INR} Normal [facility] Comment on above: Performed By: #### C BC #### [facility] [address] [place] [address] Dr. Blanquita Farris INR GUIDELINES SEE BELOW Normal [facility] Comment on above: Result Comment: SOLANGE RED INR: 2.0 - 3.0 CONDITIONS NOT LISTED BELOW 2.5 - 3.5 FOR PROSTHETIC HEART VALVE REPLACEMENT 2.5 - 3.5 RECURRENT THROMBOSIS Performed By: #### C BC #### [facility] [address] [place] [address] Dr. Blanquita Farris PT Coag (PPP) [Time] 12.3 s Critically high 9.0-11.6 [facility] Comment on above: Performed By: #### C BC #### [facility] [address] [place] [address] Dr. Blanquita Farris TSHon 03-15-2022 TSH 0.342 uIU/mL Critically low 0.358-3.740 [facility] Comment on above: Performed By: #### C BC #### [facility] [address] [place] [address] Dr. Blanquita Farris Progress Noteson 02-16-2022 Psychiatric Specialist Authentication Interface Message Text EMERGENCY TRIAGE, TREAT AND TRANSPORT (ET3) DOCUMENTATION OF TELEHEALTH VISIT Date / Time: 02/16/2022 / 6:00 AM Name: Renetta Barbosa : 1960 SSN: (Not on file) EMS Agency: [facility] [] Verbal consent obtained [] [...] Completed by: Pedro Arechiga MD Normal [facility] SINGLE QUAD RT [facility] SINGLE QUAD RT UPPER EXAMINATION: US SINGLE [...] MATA Date: 2021-11-25 17:56 Normal [facility] 05-17-2021 ACETONE Negative Normal NEGATIVE [facility] Comment on above: Performed By: #### A CETON #### [facility] [address] [place] [address] Dr. Blanquita Farris CBC W MANUAL DIFFon 05-17-20 21 ATYPICAL LYMPH # Normal [facility] Comment on above: Performed By: #### C BCMAN #### [facility] [address] [place] [address] Dr. Blanquita Farris ATYPICAL LYMPH % Normal [facility] Comment on above: Performed By: #### C BCMAN #### [facility] [address] [place] [address] Dr. Blanquita Farris BAND # Normal 0.0-0.3 [facility] Comment on above: Performed By: #### C BCDALI #### [facility] [address] [place] [address] Dr. Blanquita Farris BAND % Normal 0-5 [facility] Comment on above: Performed By: #### C BRIGETTE #### [facility] [address] [place] [address] Dr. Blanquita Farris BASOM # 0.00 103/ul Normal 0.00-0.10 [facility] Comment on above: Performed By: #### C BRIGETTE #### [facility] [address] [place] [address] Dr. Blanquita Farris BASOM % 0.0 % Critically low 0.2-2.0 [facility] Comment on above: Performed By: #### C BCDALI #### [facility] [address] [place] [address] Dr. Blanquita Farris BLAST # Normal [facility] Comment on above: Performed By: #### C BRIGETTE #### [facility] [address] [place] [address] Dr. Blanquita Farris BLAST % Normal [facility] Comment on above: Performed By: #### C BRIGETTE #### [facility] [address] [place] [address] Dr. Blanquita Farris CORRECTED WBC Normal 4.0-11.0 [facility] [place] Comment on above: Performed By: #### C BRIGETTE #### [facility] [address] [address] [address] Blanquita Farris EOS # 0.00 103/ul Normal 0.00-0.70 [facility] Comment on above: Performed By: #### C BRIGETTE #### [facility] [address] [address] [address] Blanquita Farris EOS% 0.0 % Critically low 0.9-7.0 [facility] Comment on above: Performed By: #### C BRIGETTE #### [facility] [address] [address] [address] Blanquita Farris HCT 40.7 % Normal 36.0-48.0 [facility] Comment on above: Performed By: #### C BRIGETTE #### [facility] [address] [place] [address] Dr. Blanquita Farris HGB 12.9 g/dl Normal 12.0-16.0 [facility] Comment on above: Performed By: #### C BRIGETTE #### [facility] [address] [place] [address] Dr. Blanquita Farris LYMPHM # 0.63 103/ul Critically low 1.20-3.80 [facility] Comment on above: Performed By: #### C BRIGETTE #### [facility] [address] [address] [address] Blanquita Farris LYMPHM% 18.0 % Critically low 20.5-60.0 [facility] Comment on above: Performed By: #### C BRIGETTE #### [facility] [address] [address] [address] Blanquita Farris MCH 28.4 pg Normal 26.7-34.0 [facility] Comment on above: Performed By: #### C BRIGETTE #### [facility] [address] [place] [address] Dr. Blanquita Farris MCHC 31.7 g/dl Normal 29.9-35.2 [facility] Comment on above: Performed By: #### C BRIGETTE #### [facility] [address] [place] [address] Dr. Blanquita Farris MCV 89.5 fL Normal 81.0-99.0 [facility] Comment on above: Performed By: #### C BCMAN #### [facility] [address] [place] [address] Dr. Blanquita Farris METAMYELOCYTE # Normal [facility] Comment on above: Performed By: #### C BCDALI #### [facility] [address] [place] [address] Dr. Blanquita Farris METAMYELOCYTE % Normal [facility] Comment on above: Performed By: #### C BCDALI #### [facility] [address] [place] [address] Dr. Blanquita Farris MONOM# 0.14 103/ul Critically low 0.30-0.80 [facility] Comment on above: Performed By: #### C BRIGETTE #### [facility] [address] [place] [address] Dr. Blanquita Farris MONOM% 4.0 % Normal 1.7-12.0 [facility] Comment on above: Performed By: #### C BRIGETTE #### [facility] [address] [place] [address] Dr. Blanquita Farris MPV 12.1 fL Normal 9.5-13.5 [facility] Comment on above: Performed By: #### C BRIGETTE #### [facility] [address] [place] [address] Dr. Blanquita Farris MYELOCYTE # Normal [facility] Comment on above: Performed By: #### C BCDALI #### [facility] [address] [place] [address] Dr. Blanquita Farris MYELOCYTE % Normal [facility] Comment on above: Performed By: #### C BRIGETTE #### [facility] [address] [place] [address] Dr. Blanquita Farris NRBC Normal [facility] Comment on above: Performed By: #### C BRIGETTE #### [facility] [address] [place] [address] Dr. Blanquita Farris PLT 121 103/ul Critically low 150-450 [facility] Comment on above: Performed By: #### C BCMAN #### [facility] [address] [address] [address] Blanquita Farris RBC 4.55 106/ul Normal 4.20-5.40 [facility] Comment on above: Performed By: #### C BCMAN #### [facility] [id number] Blanquita Farris RDW 15.8 % Critically high 11.0-15.0 [facility] Comment on above: Performed By: #### C BCMAN #### [facility] [address] [address] [address] Blanquita Farris SEG # 2.73 103/ul Normal 1.40-6.50 [facility] Comment on above: Performed By: #### C BCMAN #### [facility] [address] [address] [address] Blanquita Farris SEG % 78.0 % Critically high 43.0-75.0 [facility] Comment on above: Performed By: #### C BCMAN #### [facility] [id number] Blanquita Farris WBC 3.5 103/ul Critically low 4.0-11.0 [facility] Comment on above: Performed By: #### C BCMAN #### [facility] [address] [address] [address] CSPINE WO CONon [...] KEYSHA NAIDU Date: 2021-05-17 09:10 Normal [facility] ER URINE PROFILEon 1 Bilirubin Ql (U) Negative Normal NEGATIVE [facility] Comment on above: Performed By: #### E RUR #### [facility] [address] [place] [address] Dr. Blanquita Farris Clarity (U) CLEAR Normal CLEAR [facility] Comment on above: Performed By: #### E RUR #### [facility] [address] [place] [address] Dr. Blanquita Farris Color (U) LT. YELLOW Normal YELLOW [facility] Comment on above: Performed By: #### E RUR #### [facility] [address] [place] [address] Dr. Blanquita RUTHERFORD A micrscopic examination will be performed if indicated. Normal [facility] Comment on above: Performed By: #### E RUR #### [facility] [address] [address] [address] Blanquita Farris Glucose Ql (U) 100 mg/dl Abnormal NEGATIVE [facility] Comment on above: Performed By: #### E RUR #### [facility] [address] [place] [address] Dr. Blanquita Farris Hemoglobin Ql (U) Negative Normal NEGATIVE [facility] Comment on above: Performed By: #### E RUR #### [facility] [address] [place] [address] Dr. Blanquita Farris Ketones Ql (U) Negative Normal NEGATIVE [facility] Comment on above: Performed By: #### E RUR #### [facility] [address] [place] [address] Dr. Blanquita Farris LEUKOCYTES Negative Normal NEGATIVE [facility] Comment on above: Performed By: #### E RUR #### [facility] [address] [place] [address] Dr. Blanquita Farris Nitrite Ql (U) Negative Normal NEGATIVE [facility] Comment on above: Performed By: #### E RUR #### [facility] [address] [place] [address] Dr. Blanquita Farris pH (U) 7.0 [pH] Normal 5-9 [facility] Comment on above: Performed By: #### E RUR #### [facility] [address] [place] [address] Dr. Blanquita Farris SPEC GRAVITY 1.015 Normal 1.005-<=1.025 [facility] Comment on above: Performed By: #### E RUR #### [facility] [address] [place] [address] Dr. Blanquita Farris UA PROTEIN Negative Normal NEGATIVE/ TRACE [facility] Comment on above: Performed By: #### E RUR #### [facility] [address] [place] [address] Dr. Blanquita Farris UR MICRO IND NOT INDICATED Normal [facility] Comment on above: Performed By: #### E RUR #### [facility] [address] [place] [address] Dr. Blanquita Farris Urobilinogen Qn (U) 0.2 {Chevy'U}/dL Normal 0.2 - 1. 0 [facility] Comment on above: Performed By: #### E RUR #### [facility] [address] [place] [address] Dr. Blanquita Farris POINT OF CARE GLUCOSEon 12-2 Glucose [Mass/Vol] 234 mg/dL Critically high 74-106 [facility] Comment on above: Performed By: #### P OCGLUC #### [facility] [address] [place] [address] Dr. Blanquita Farris PROF 14(COMP METB)on 021 Albumin [Mass/Vol] 3.5 g/dL Normal 3.5-5.0 [facility] Comment on above: Performed By: #### C MP #### [facility] [address] [place] [address] Dr. Blanquita Farris Albumin/Globulin [Mass ratio] 0.9 {ratio} Normal [facility] Comment on above: Performed By: #### C MP #### [facility] [address] [place] [address] Dr. Blanquita Farris ALP [Catalytic activity/Vol] 73 U/L Normal 38-126 [facility] Comment on above: Performed By: #### C MP #### [facility] [address] [place] [address] Dr. Blanquita Farris ALT [Catalytic activity/Vol] 39 U/L Normal 9-52 [facility] Comment on above: Performed By: #### C MP #### [facility] [address] [place] [address] Dr. Blanquita Farris Anion gap [Moles/Vol] 12.9 mmol/L Normal [facility] Comment on above: Performed By: #### C MP #### [facility] [address] [place] [address] Dr. Blanquita Farris AST [Catalytic activity/Vol] 33 U/L Normal 14-36 [facility] Comment on above: Performed By: #### C MP #### [facility] [address] [place] [address] Dr. Blanquita Farris Bilirubin [Mass/Vol] 0.3 mg/dL Normal 0.2-1.3 [facility] Comment on above: Performed By: #### C MP #### [facility] [address] [place] [address] Dr. Blanquita Farris Calcium [Mass/Vol] 8.9 mg/dL Normal 8.4-10.2 [facility] Comment on above: Performed By: #### C MP #### [facility] [address] [place] [address] Dr. Blanquita Farris Chloride [Moles/Vol] 105 mmol/L Normal 98-107 [facility] Comment on above: Performed By: #### C MP #### [facility] [address] [address] [address] Blanquita Farris CO2 [Moles/Vol] 28.3 mmol/L Normal 22.0-30.0 [facility] Comment on above: Performed By: #### C MP #### [facility] [address] [address] [address] Blanquita Farris Creatinine [Mass/Vol] 0.75 mg/dL Normal 0.52-1.04 [facility] Comment on above: Performed By: #### C MP #### [facility] [address] [place] [address] Dr. Blanquita Farris EGFR-AF MONTENEGRIN >60 Normal >=60 [facility] Comment on above: Performed By: #### C MP #### [facility] [address] [place] [address] Dr. Blanquita Farris EGFR-NON AF MONTENEGRIN >60 Normal >=60 [facility] Comment on above: Performed By: #### C MP #### [facility] [address] [address] [address] Blanquita Farris Globulin (S) [Mass/Vol] 3.8 g/dL Normal [facility] Comment on above: Performed By: #### C MP #### [facility] [address] [place] [address] Dr. Blanquita Farris Glucose [Mass/Vol] 173 mg/dL Critically high 74-106 [facility] Comment on above: Performed By: #### C MP #### [facility] [address] [address] [address] Blanquita Farris Potassium [Moles/Vol] 3.2 mmol/L Critically low 3.4-5.0 [facility] Comment on above: Performed By: #### C MP #### [facility] [address] [address] [address] Blanquita Farris Protein [Mass/Vol] 7.3 g/dL Normal 6.1-8.2 [facility] Comment on above: Performed By: #### C MP #### [facility] [address] [place], [place] [address] Dr. Blanquita Farris Sodium [Moles/Vol] 143 mmol/L Normal 137-145 [facility] Comment on above: Performed By: #### C MP #### [facility] [address] [place], [place] [address] Dr. Blanquita Farris Urea nitrogen [Mass/Vol] 11.0 mg/dL Normal 7.0-17.0 [facility] Comment on above: Performed By: #### C MP #### [facility] [address] [address] [address] Blanquita Farris Urea nitrogen/Creatinine [Mass ratio] 14.7 mg/mg Normal [facility] Comment on above: Performed By: #### C MP #### [facility] [address] [address] [address] Blanquita Farris DIGITAL MAMMOGRAM SCREENING BILATERALon 11-22-2018 DIGITAL MAMMOGRAM SCREENING BILATERAL [facility] Department of Radiology [address] [place] [id number] ======== Patient Name: RENETTA HERNANDEZ : 1960 Sex: F Age: Race: White Pt. Location: [facility] Patient Status: D Ordered Date: 10/11/2018 3:20:00 PM Completed Date: 11/22/2018 12:09 PM Requesting Provider: DES GLYNN Attending Provider: DES GLYNN Report Copy To: Signs & Symptoms: Z12.31 Encntr screen mammogram for malignant neoplasm of breast I10 History: Serina Previous study [facility] 07/16/17 Comments: , Additional imaging, [...] recommended. Electronically signed by:Summer Cage. Transcribed by: [email or web address], User Resident: Electronically Signed by: SUMMER CAGE @ 11/24/2018 03:21 PM Normal [facility] Comment on above: Order Comment: , Add itional imaging, if necessary?: Y , Additional imaging, if necessary?: Y , , , Ordering Provider - DES GLYNN CNP , *VAGINITIS DNA PROBEon 10-11 *VAGINITIS DNA PROBE Clinical Report: (D) Specimen: GENITAL Collected: 10/11/2018 14:45 Status: Final Last Updated: 10/11/2018 19:16 MARQUITA (Final) Negative JUAN (Final) Negative TRICH (Final) Negative Normal [facility] Comment on above: Performed By: #### 5 6101 #### [facility] [address] [place] [address], [facility] FREE T4on 09-20-2018 Free T4 [Mass/Vol] 0.93 ng/dL Normal 0.71-1.85 [facility] Comment on above: Performed By: #### 3 1522, 84649, 74387, 16348 #### [facility] [address] [place] [address], [facility] HEMOGLOBIN A1Con 09-20-2018 HbA1c (Bld) [Mass fraction] 269 mg/dL High 70-126 [facility] Comment on above: Performed By: #### 4 6447 #### [facility] [address] [facility] [address], [facility] HbA1c (Bld) [Mass fraction] 11.0 % High 4.0-6.0 [facility] Comment on above: Performed By: #### 4 6447 #### [facility] [address] [facility] [address], [facility] LIPID PROFILEon 09-20-2018 Cholesterol [Mass/Vol] 164 mg/dL Normal 120-200 [facility] Comment on above: Result Comment: CHOL ESTEROL REFERENCE RANGE: 20 YEARS AND OLDER CARDIOVASCULAR RISK Less than 200 mg/dl Low Risk 200 to 239 mg/dl Borderline Risk 240 mg/dl and greater High Risk Performed By: #### 3 1522, 70325, 71383, 32745 #### [facility] [address] [facility]. [address] Cholesterol in HDL [Mass/Vol] 30 mg/dL Normal 23-92 [facility] Comment on above: Result Comment: Slig ht variation in normal range could be due to gender and/or age. HDL CHOLESTEROL REFERENCE RANGE: 20 years and older Cardiovascular Risk > or =60 mg/dL Desirable 40 TO 59 mg/dL Low Risk <40 mg/dL High Risk Performed By: #### 3 1522, 13860, 49902, 97675 #### [facility] [address] [place] [address], [facility] Cholesterol in LDL [Mass/Vol] 91 mg/dL Normal 0-130 [facility] Comment on above: Result Comment: LDL IS A CALCULATION LDL IS ONLY VALID IF THE TRIG IS LESS THAN 400. Performed By: #### 3 1522, 69415, 37449, 74815 #### [facility] [address] [place] [address], [facility] Cholesterol.total/C holesterol in HDL [Mass ratio] 5.5 {ratio} High .0-4.5 [facility] Comment on above: Performed By: #### 3 1522, 14384, 17214, 21000 #### [facility] [address] NON-HDL CHOLESTEROL 134 mg/dL Normal [facility] Comment on above: Performed By: #### 3 1522, 94150, 90021, 59149 #### [facility] [address] [facility] [address], [facility] Triglyceride [Mass/Vol] 215 mg/dL High 40-149 [facility] Comment on above: Result Comment: TRIG LYCERIDE REFERENCE RANGE: 20 YEARS AND OLDER CARDIOVASCULAR RISK LESS THAN 150 mg/dl LOW RISK 150 TO 199 mg/dl BORDERLINE RISK 200 mg/dl AND GREATER HIGH RISK Performed By: #### 3 1522, 95974, 92151, 83117 #### [facility] [address] [place] [address], [facility] VLDL CHOL 43 mg/dL High 0-40 [facility] Comment on above: Performed By: #### 3 1522, 94799, 92331, 96489 #### [facility] [address] [place] [address], [place] MICROALBUMIN URINE RANDOMon 09-20-2018 Creatinine [Mass/Vol] 148.0 mg/dL Normal [facility] Comment on above: Result Comment: Ther e are no established reference values for random urine specimens Performed By: #### 3 0067 #### [facility] [address] [place] [address], [place] MICROALBUMIN <1.0 Normal [facility] Comment on above: Performed By: #### 3 0067 #### [facility] [address] [place] [address], [place] MICROALBUMIN/CREATI NINE RATIO 'UNABLE TO CALC Normal 0.0-30.0 [facility] Comment on above: Performed By: #### 3 0067 #### [facility] [address] [place] [address], [place] TSH3on 09-20-2018 TSH 3RD GENERATION 1.53 uIU/mL Normal 0.34-5.60 [facility] Comment on above: Performed By: #### 3 1522, 38634, 30312, 99969 #### [facility] [address] [place] [address], [facility] VITAMIN D 25-HYDROXYon 09-20 VITAMIN D 25-OH 33.8 ng/mL Normal 30.0-80.0 [facility] Comment on above: Result Comment: >80. 0 Toxicity possible Performed By: #### 3 1522, 11470, 82487, 07198 #### [facility] [address] [place] [address], [place] US HEPATIC ECHOGRAMon 2018 US HEPATIC ECHOGRAM [facility] Department of Radiology [address] [place] [address] ======== Patient Name: RENETTA HERNANDEZ : 1960 Sex: F Age: Race: White Pt. Location: [facility] Patient Status: O Ordered Date: 06/19/2018 3:35:00 [...] echogenicity suggesting hepatocellular disease. Electronically signed by:Russell De La Rosa. Transcribed by: [email or web address], User Resident: Electronically Signed by: RUSSELL DE LA ROSA @ 08/22/2018 12:53 PM Normal [facility] Comment on above: Order Comment: , , = ========= , Ordering Provider - ANGELIQUE BENNETT MD , US ABDOMINAL FOR ASCITES JIMENEZ ITEDon 06-28-2018 US ABDOMINAL FOR ASCITES LIMITED [facility] Department of Radiology [address] [place] [id number] ======== Patient Name: RENETTA HERNANDEZ : 1960 Sex: F Age: Race: White Pt. Location: [facility] [place] Patient Status: O Ordered Date: 06/19/2018 3:35:00 PM Completed Date: 06/28/2018 11:18 AM Requesting Provider: ANGELIQUE BENNETT Attending Provider: ANGELIQUE BENNETT Report Copy To: FAINA CHAPMAN Signs & Symptoms: K74.60 Unspecified cirrhosis of liver I10 History: Serina no show 06/28/18 10am Comments: , , [...] concur with these findings. Electronically signed by:Russell De La Rosa. Transcribed by: [email or web address], User Resident: LAST FRANCO Electronically Signed by: RUSSELL DE LA ROSA @ 06/28/2018 12:53 PM I personally read this/these film(s) with this resident Normal [facility] Comment on above: Order Comment: , , = ========= , Ordering Provider - ANGELIQUE BENNETT MD , COMP METABOLIC PANELon 06-19 Albumin [Mass/Vol] 4.1 g/dL Normal 3.5-5.7 [facility] Comment on above: Performed By: #### 0 0121 #### [facility] [address] [facility] [place] [address], [facility] ALKALINE PHOSPH 67 IU/L Normal 34-104 [facility] Comment on above: Performed By: #### 0 0121 #### [facility] [address] [place] [address], [place] ALT [Catalytic activity/Vol] 21 U/L Normal 7-52 [facility] Comment on above: Performed By: #### 0 0121 #### [facility] [address] [facility] [place] [address], [place] AST [Catalytic activity/Vol] 22 U/L Normal 13-39 [facility] Comment on above: Performed By: #### 0 0121 #### [facility] [address] [place] [address], [place] Bilirubin [Mass/Vol] 0.5 mg/dL Normal 0.3-1.0 [facility] Comment on above: Performed By: #### 0 0121 #### [facility] [address] [place] [address], [place] Calcium [Mass/Vol] 9.7 mg/dL Normal 8.6-10.3 [facility] Comment on above: Performed By: #### 0 0121 #### [facility] [address] [place] [address], [place] Chloride [Moles/Vol] 103 mmol/L Normal 98-107 [facility] Comment on above: Performed By: #### 0 0121 #### [facility] [address] [place] [address], [place] CO2 [Moles/Vol] 28 mmol/L Normal 21-31 [facility] Comment on above: Performed By: #### 0 0121 #### [facility] [address] [place] [address], [place] Creatinine [Mass/Vol] 0.89 mg/dL Normal 0.60-1.20 [facility] Comment on above: Performed By: #### 0 0121 #### [facility] [address] [place] [address], [place] GFR/1.73 sq M predicted among blacks MDRD (S/P/Bld) [Vol rate/Area] mL/min/{1.73_m2} Normal >60 [facility] Comment on above: Performed By: #### 0 0121 #### [facility] [address] [place] [address], [place] GFR/1.73 sq M predicted among non-blacks MDRD (S/P/Bld) [Vol rate/Area] mL/min/{1.73_m2} Normal >60 [facility] Comment on above: Performed By: #### 0 0121 #### [facility] [address] [place] [address], [place] Glucose [Mass/Vol] 175 mg/dL High 70-100 [facility] Comment on above: Performed By: #### 0 0121 #### [facility] [address] [place] [address], [place] Potassium [Moles/Vol] 3.8 mmol/L Normal 3.5-5.1 [facility] Comment on above: Performed By: #### 0 0121 #### [facility] [address] [place] [address], [facility] Protein [Mass/Vol] 7.5 g/dL Normal 6.0-8.3 [facility] Comment on above: Performed By: #### 0 0121 #### [facility] [address] [place] [address], [facility] Sodium [Moles/Vol] 139 mmol/L Normal 136-145 [facility] Comment on above: Performed By: #### 0 0121 #### [facility] [address] [place] [address], [facility] Urea nitrogen [Mass/Vol] 14 mg/dL Normal 7-25 [facility] Comment on above: Performed By: #### 0 0121 #### [facility] [address] [facility] [address] PROTHROMBIN TIMEon 9 INR Coag (PPP) [Relative time] 1.17 {INR} High 0.91-1.16 [facility] Comment on above: Result Comment: ACCC P [...] 1995;108:231S-246S. Performed By: #### 5 6101 #### [facility] [address] [place] [address], [facility] PT Coag (PPP) [Time] 14.9 s High 12.3-14.8 [facility] Comment on above: Result Comment: ALL RESULTS MUST BE INTERPRETED WITH RESPECT TO BLOOD DRAWING ARTIFACT OR DILUTION ERROR OF ANTICOAGULANT AT THE TIME OF SAMPLING. Performed By: #### 5 6101 #### [facility] [address] [place] [address], [facility] Vital Signs Date Time Vital Sign Value Performing Clinician Facility 01-02-2024 11:52-0400 Blood Pressure Location NGACORTNEY PAGERY [facility] 01-02-2024 11:52-0400 Diastolic blood pressure 82 mm[Hg] NGA JUANITO [facility] 01-02-2024 11:52-0400 Heart rate 78 /min NGA JUANITO [facility] 01-02-2024 11:52-0400 Systolic blood pressure 130 mm[Hg] NGA JUANITO [facility] 12-05-2023 11:55-0400 Diastolic blood pressure 54 mm[Hg] NGA JUANITO [facility] 12-05-2023 11:55-0400 Mean blood pressure 77 mm[Hg] NGA JUANITO [facility] 12-05-2023 11:55-0400 Systolic blood pressure 122 mm[Hg] NGA JUANITO [facility] 12-05-2023 11:44-0400 Blood Pressure Location NGA JUANITO [facility] 12-05-2023 11:44-0400 Diastolic blood pressure 107 mm[Hg] NGA JUANITO [facility] 12-05-2023 11:44-0400 Heart rate 95 /min NGA JUANITO [facility] 12-05-2023 11:44-0400 Systolic blood pressure 128 mm[Hg] NGA JUANITO [facility] 11-28-2023 11:43-0400 Blood Pressure Location NGA JUANITO [facility] 11-28-2023 11:43-0400 Diastolic blood pressure 67 mm[Hg] NGA JUANITO [facility] 11-28-2023 11:43-0400 Heart rate 95 /min NGA JUANITO [facility] 11-28-2023 11:43-0400 Systolic blood pressure 148 mm[Hg] NGA JUANITO [facility] 11-21-2023 11:37-0400 Blood Pressure Location NGA JUANITO [facility] 11-21-2023 11:37-0400 Body temperature 97.88 [degF] NGA JUANITO [facility] 11-21-2023 11:37-0400 Diastolic blood pressure 11 mm[Hg] NGA JUANITO [facility] 11-21-2023 11:37-0400 Heart rate 74 /min NGA JUANITO [facility] 11-21-2023 11:37-0400 Respiratory rate 15 /min NGA JUANITO [facility] 11-21-2023 11:37-0400 Systolic blood pressure 131 mm[Hg] NGA JUANITO [facility] 11-14-2023 11:36-0400 Blood Pressure Location NGA JUANITO [facility] 11-14-2023 11:36-0400 Body temperature 97.7 [degF] NGA JUANITO [facility] 11-14-2023 11:36-0400 Diastolic blood pressure 88 mm[Hg] NGA JUANITO [facility] 11-14-2023 11:36-0400 Heart rate 78 /min NGA JUANITO [facility] 11-14-2023 11:36-0400 Systolic blood pressure 150 mm[Hg] NGA JUANITO [facility] 06-23-2023 13:50-0500 Body height 157.5 cm Andre Funes MD Work Phone: [facility] 06-23-2023 13:50-0500 Body temperature 97.59 [degF] Andre Funes MD Work Phone: [facility] 06-23-2023 13:50-0500 Body weight 91.1 kg Andre Funes MD Work Phone: [facility] 06-23-2023 13:50-0500 Diastolic blood pressure 93 mm[Hg] Andre Funes MD Work Phone: [facility] 06-23-2023 13:50-0500 Heart rate 107 /min Andre Funes MD Work Phone: [facility] 06-23-2023 13:50-0500 Respiratory rate 18 /min Andre Funes MD Work Phone: [facility] 06-23-2023 13:50-0500 SaO2% (BldA) [Mass fraction] 94 % Andre Funes MD Work Phone: [facility] 06-23-2023 13:50-0500 Systolic blood pressure 149 mm[Hg] Andre Funes MD Work Phone: [facility] 05-03-2023 10:34-0500 Blood Pressure Location NGAYOVANI WILKINS [facility] 05-03-2023 10:34-0500 Diastolic blood pressure 88 mm[Hg] NGA JUANITO [facility] 05-03-2023 10:34-0500 Heart rate 91 /min NGA JUANITO [facility] 05-03-2023 10:34-0500 Respiratory rate 16 /min NGA JUANITO [facility] 05-03-2023 10:34-0500 Systolic blood pressure 138 mm[Hg] NGA JUANITO [facility] 04-05-2023 14:15-0500 Body height 157.48 cm Rodger Chavez Other [facility] Other 04-05-2023 14:15-0500 Body mass index (BMI) [Ratio] 37.31 kg/m2 Rodger Chavez Other [facility] Other 04-05-2023 14:15-0500 Body weight 92.53 kg Rodger Chavez Other [facility] Other 04-05-2023 14:15-0500 Diastolic blood pressure 82 mm[Hg] Rodger Chavez Other [facility] Other 04-05-2023 14:15-0500 Systolic blood pressure 143 mm[Hg] Rodger Chavez Other [facility] Other 09-28-2022 14:45-0400 Body height 157.48 cm Rodger Chavez Other [facility] Other 09-28-2022 14:45-0400 Body mass index (BMI) [Ratio] 37.86 kg/m2 Rodger Chavez Other [facility] Other 09-28-2022 14:45-0400 Body weight 93.9 kg Rodger Chavez Other [facility] Other 09-28-2022 14:45-0400 Diastolic blood pressure 77 mm[Hg] Rodger Chavez Other [facility] Other 09-28-2022 14:45-0400 SaO2% (BldA) [Mass fraction] 95 % Rodger Chavez Other [facility] Other 09-28-2022 14:45-0400 Systolic blood pressure 156 mm[Hg] Rodger Chavez Other [facility] Other 06-25-2022 13:45-0500 Diastolic blood pressure 82 mm[Hg] Andre Funes MD Work Phone: [facility] 06-25-2022 13:45-0500 Systolic blood pressure 152 mm[Hg] Andre Funes MD Work Phone: [facility] 06-25-2022 13:44-0500 Body height 157.5 cm Andre Funes MD Work Phone: [facility] 06-25-2022 13:44-0500 Body temperature 97.5 [degF] Andre Funes MD Work Phone: [facility] 06-25-2022 13:44-0500 Body weight 95.17 kg Andre Funes MD Work Phone: [facility] 06-25-2022 13:44-0500 Heart rate 88 /min Andre Funes MD Work Phone: [facility] 06-25-2022 13:44-0500 Respiratory rate 16 /min Andre Funes MD Work Phone: [facility] 06-25-2022 13:44-0500 SaO2% (BldA) [Mass fraction] 97 % Andre Funes MD Work Phone: [facility] 06-22-2022 14:30-0500 Body height 157.48 cm Rodger Chavez Other [facility] Other 06-22-2022 14:30-0500 Body mass index (BMI) [Ratio] 37.86 kg/m2 Rodger Chavez Other [facility] Other 06-22-2022 14:30-0500 Body weight 93.9 kg Rodger Chavez Other [facility] Other 01-31-2023 14:30-0500 Diastolic blood pressure 80 mm[Hg] Rodger Chavez Other [facility] Other 06-22-2022 14:30-0500 Systolic blood pressure 130 mm[Hg] Rodger Chavez Other [facility] Other 03-04-2022 15:45-0400 Body height 157.48 cm Rodger Chavez Other [facility] Other 03-04-2022 15:45-0400 Body mass index (BMI) [Ratio] 38.59 kg/m2 Rodger Chavez Other [facility] Other 03-04-2022 15:45-0400 Body weight 95.71 kg Rodger Chavez Other [facility] Other 12-17-2021 13:02-0400 Body height 157.5 cm Andre Funes MD Work Phone: [facility] 12-17-2021 13:02-0400 Body temperature 97.59 [degF] Andre Funes MD Work Phone: [facility] 12-17-2021 13:02-0400 Body weight 97.98 kg Andre Funes MD Work Phone: [facility] 12-17-2021 13:02-0400 Diastolic blood pressure 83 mm[Hg] Andre Funes MD Work Phone: [facility] 12-17-2021 13:02-0400 Heart rate 92 /min Andre Funes MD Work Phone: [facility] 12-17-2021 13:02-0400 Respiratory rate 16 /min Andre Funes MD Work Phone: [facility] 12-17-2021 13:02-0400 SaO2% (BldA) [Mass fraction] 95 % Andre Funes MD Work Phone: [facility] 12-17-2021 13:02-0400 Systolic blood pressure 145 mm[Hg] Andre Funes MD Work Phone: [facility] Encounters Encounter Date Encounter Type Care Provider Facility Start: 01-02-2024 End: 01-02-2024 Patient encounter procedure NGA E JUANITO [facility] Start: 12-05-2023 End: 12-05-2023 ambulatory NGA E JUANITO Facility:[facility] Start: 12-05-2023 End: 12-05-2023 Patient encounter procedure NGA E JUANITO [facility] Start: 11-28-2023 End: 11-28-2023 ambulatory NGA E JUANITO Facility:[facility] Jacobson Start: 11-28-2023 End: 11-28-2023 Patient encounter procedure NGA E JUANITO [facility] [email or web address] Start: 11-21-2023 End: 11-21-2023 ambulatory NGA E JUANITO Facility:[facility]AMIE Jacobson Start: 11-21-2023 End: 11-21-2023 Patient encounter procedure NGA E JUANITO [facility] [email or web address] Start: 11-16-2023 End: 11-16-2023 ambulatory RAJAT AGUILAR Not Available Start: 11-14-2023 End: 11-14-2023 ambulatory NGA E JUANITO Facility:[facility] Start: 11-14-2023 End: 11-14-2023 Patient encounter procedure NGA E JUANITO [facility] Start: 11-10-2023 End: 11-10-2023 ambulatory TAN BAGLEY Not Available Start: 11-08-2023 End: 11-08-2023 ambulatory DENI Peres DIDION Not Available Start: 11-07-2023 End: 11-07-2023 ambulatory NGA Tano WILKINS Facility:[facility] Start: 11-07-2023 End: 11-07-2023 Patient encounter procedure NGA WILKINS [facility] Start: 10-31-2023 End: 10-31-2023 ambulatory NGA WILKINS Facility:[facility] Start: 10-31-2023 End: 10-31-2023 Patient encounter procedure NGA WILKINS [facility] Start: 10-20-2023 End: 10-20-2023 ambulatory DENI Peres DIDION Not Available Start: 10-13-2023 End: 10-13-2023 ambulatory RAJAT JEFF Not Available Start: 09-28-2023 End: 09-28-2023 ambulatory DENI Peres DIDION Not Available Start: 08-02-2023 End: 08-02-2023 ambulatory [facility] Start: 06-23-2023 End: 06-23-2023 ambulatory ANDRE FUNES Facility:[facility] Start: 06-23-2023 End: 06-23-2023 Office outpatient visit 15 minutes Andre Funes MD Work Phone: Hematology/Oncology Comment on above: MENDEZ (nonalcoholic s teatohepatitis) (Primary Dx); 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); Thrombocytopenia due to hypersplenism; Thrombocytopenia (HCC); Diabetic gastroparesis (HCC) (HCC) Start: 06-22-2023 End: 06-22-2023 ambulatory Soheila Hall [facility] Other Start: 06-22-2023 Telephone encounter Soheila Delgado Christel [facility] Start: 06-21-2023 End: 06-21-2023 ambulatory MAHAMED [facility] Start: 06-01-2023 End: 06-01-2023 ambulatory LUL Taye PRINTY Not Available Start: 05-24-2023 End: 05-24-2023 ambulatory LUL Kothari PRINTY Not Available Start: 05-03-2023 End: 05-03-2023 ambulatory NGA WILKINS Facility:[facility] Start: 05-03-2023 End: 05-03-2023 Patient encounter procedure NGA WILKINS [facility] Start: 04-12-2023 End: 04-12-2023 ambulatory Rodger Chavez Other [facility] Other Start: 04-12-2023 Telephone encounter Rodger cabrales [facility] Start: 04-05-2023 End: 04-05-2023 ambulatory Rodger Chavez Other [facility] Other Start: 04-05-2023 Office outpatient vi sit 15 minutes Rodger Chavez [facility] Start: 03-17-2023 ambulatory NGA WILKINS Facility :[facility] Start: 10-19-2022 End: 10-20-2022 ambulatory SHAKIRA HIGGINS Facility:[facility] Start: 10-15-2022 ambulatory SAHKIRA RUTHMER Facility: [facility] Start: 10-06-2022 End: 10-06-2022 ambulatory SHAKIRA RUTHMER Facility:[facility] Start: 09-28-2022 End: 09-28-2022 ambulatory Rodger Chavez Other [facility] Other Start: 09-28-2022 Office outpatient vi sit 15 minutes Rodger Chavez [facility] Start: 06-25-2022 End: 06-25-2022 Office outpatient visit 15 minutes Andre Funes MD Work Phone: Hematology/Oncology Comment on above: Cirrhosis of liver n ot due to alcohol (HCC) (Primary Dx); MENDEZ (nonalcoholic steatohepatitis); Thrombocytopenia due to hypersplenism Start: 06-22-2022 End: 06-22-2022 ambulatory Rodger Chavez Other [facility] Other Start: 06-22-2022 Office outpatient vi sit 15 minutes Rodger Chavez [facility] Start: 06-10-2022 End: 06-11-2022 ambulatory SHAKIRA HIGGINS Facility:[facility] Start: 05-22-2022 End: 05-22-2022 ambulatory SHAKIRA HIGGINS Facility:[facility] Start: 04-01-2022 End: 04-01-2022 ambulatory Rodger Chavez Other [facility] Other Start: 04-01-2022 Telephone encounter Rodger cabrales [facility] Start: 03-16-2022 End: 03-16-2022 ambulatory SHAKIRA HIGGINS Facility:[facility] Start: 03-15-2022 End: 03-16-[address] DOCTOR RAMOS Facility:[facility] Start: 03-04-2022 End: 03-04-2022 ambulatory Rodger Chavez Other [facility] Other Start: 03-04-2022 Office outpatient ne w 45 minutes Rodger Chavez [facility] Start: 02-16-2022 End: 03-01-2022 ambulatory UNKNOWN PROVIDER Facility:[facility] Start: 12-17-2021 End: 12-17-2021 ambulatory Andre Funes MD Work Phone: Hematology/Oncology Comment on above: Thrombocytopenia due to hypersplenism (Primary Dx); 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); MENDEZ (nonalcoholic steatohepatitis) Start: 12-17-2021 End: 12-17-2021 Patient encounter procedure Andre Funes MD Work Phone: [facility] Start: 11-25-2021 End: 11-26-2021 ambulatory SHAKIRA HIGGINS Facility:[facility] Start: 05-17-2021 End: 05-17-[address] JENNIFER TURNER Facility:[facility] Start: 08-05-2020 End: 08-05-2020 Patient encounter procedure External Provider [facility] Start: 08-05-2020 Results Only External Provider Exter nal-Non[facility] Procedures Date Procedure Procedure Detail Performing Clinician Start: 12-10-2020 Adult depression screening assessment Andre Funes MD Work Phone: Start: 09-24-2020 Esophagogastroduodenoscopy NGA Gao Comment on above: with Right Hemorrhoidectomy Start: 08-05-2020 EXTERNAL LAB External Provider Start: 04-09-2020 Colonoscopy GNA WILKINS Bilateral tubal ligation SAMMY WILKINS Bilateral tubal ligation SAMMY PAGERY Bile duct stone removal MILTON PAGERY Bile duct stone removal [facility]ST[facility] PAGERY section NGA MONTOYA Laparoscopic cholecystectomy NGA WILKINS Tonsillectomy and adenoidectomy NGA WILKINS Plan of Treatment Date Care Activity Detail Author Start: 06-25-2025 DIABETES SCREEN DIABETES SCREEN [facility] Start: 12-17-2024 DIABETES SCREEN DIABETES SCREEN [facility] Start: 06-23-2024 End: 09-22-2024 [id number] [Mass/volume] in Serum or Plasma ALPHA FETOPROTEIN BL Lab Routine MENDEZ (nonalcoholic steatohepatitis) 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 Expected: 06/23/2024 (Approximate), Expires: 09/22/2024 [facility] Work Phone: Comment on above: Expected: 06/23/2024 (Approximate), Expires: 09/22/2024 Start: 06-23-2024 End: 06-23-2024 CBC W Auto Differential panel - Blood CBC + DIFF Lab Routine MENDEZ (nonalcoholic steatohepatitis) 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 Expected: 06/23/2024 (Approximate), Expires: 06/23/2024 [facility] Work Phone: Comment on above: Expected: 06/23/2024 (Approximate), Expires: 06/23/2024 Start: 06-23-2024 End: 06-23-2024 Cobalamin (Vitamin B12) [Mass/volume] in Serum or Plasma VITAMIN B12 BLOOD Lab Routine MENEDZ (nonalcoholic steatohepatitis) 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 Expected: 06/23/2024 (Approximate), Expires: 06/23/2024 [facility] Work Phone: Comment on above: Expected: 06/23/2024 (Approximate), Expires: 06/23/2024 Start: 06-23-2024 End: 06-23-2024 Comprehensive metabolic 2000 panel - Serum or Plasma COMP METABOLIC PANEL Lab Routine MENDEZ (nonalcoholic steatohepatitis) 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 Expected: 06/23/2024 (Approximate), Expires: 06/23/2024 [facility] Work Phone: Comment on above: Expected: 06/23/2024 (Approximate), Expires: 06/23/2024 Start: 06-23-2024 End: 06-23-2024 Ferritin [Mass/volume] in Serum or Plasma FERRITIN BLD Lab Routine MENDEZ (nonalcoholic steatohepatitis) 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 Expected: 06/23/2024 (Approximate), Expires: 06/23/2024 [facility] Work Phone: Comment on above: Expected: 06/23/2024 (Approximate), Expires: 06/23/2024 Start: 06-23-2024 End: 06-23-2024 Folate [Mass/volume] in Serum or Plasma FOLATE SERUM Lab Routine MENDEZ (nonalcoholic steatohepatitis) 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 Expected: 06/23/2024 (Approximate), Expires: 06/23/2024 [facility] Work Phone: Comment on above: Expected: 06/23/2024 (Approximate), Expires: 06/23/2024 Start: 06-23-2024 End: 06-23-2024 Iron and Iron binding capacity panel - Serum or Plasma IRON + TIBC Lab Routine MENDEZ (nonalcoholic steatohepatitis) 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 Expected: 06/23/2024 (Approximate), Expires: 06/23/2024 [facility] Work Phone: Comment on above: Expected: 06/23/2024 (Approximate), Expires: 06/23/2024 Start: 01-02-2024 ambulatory Ambulatory Facility:[facility] Start: 12-19-2023 ambulatory Ambulatory Facility:[facility] Start: 06-25-2023 End: 06-25-2023 CBC W Auto Differential panel - Blood CBC + DIFF Lab Routine 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 Expected: 06/25/2023 (Approximate), Expires: 06/25/2023 [facility] Work Phone: Comment on above: Expected: 06/25/2023 (Approximate), Expires: 06/25/2023 Start: 06-25-2023 End: 06-25-2023 Cobalamin (Vitamin B12) [Mass/volume] in Serum or Plasma VITAMIN B12 BLOOD Lab Routine 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 Expected: 06/25/2023 (Approximate), Expires: 06/25/2023 [facility] Work Phone: Comment on above: Expected: 06/25/2023 (Approximate), Expires: 06/25/2023 Start: 06-25-2023 End: 06-25-2023 Comprehensive metabolic 2000 panel - Serum or Plasma COMP METABOLIC PANEL Lab Routine 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 Expected: 06/25/2023 (Approximate), Expires: 06/25/2023 [facility] Work Phone: Comment on above: Expected: 06/25/2023 (Approximate), Expires: 06/25/2023 Start: 06-25-2023 End: 07-25-2023 Dup-scan artl patrick abdl/pel/scrot&/rpr orgn com US DOPPLER COMPLETE Radiology Routine 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 Expected: 06/25/2023 (Approximate), Expires: 07/25/2023 [facility] Work Phone: Comment on above: Expected: 06/25/2023 (Approximate), Expires: 07/25/2023 Start: 06-25-2023 End: 06-25-2023 Ferritin [Mass/volume] in Serum or Plasma FERRITIN BLD Lab Routine 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 Expected: 06/25/2023 (Approximate), Expires: 06/25/2023 [facility] Work Phone: Comment on above: Expected: 06/25/2023 (Approximate), Expires: 06/25/2023 Start: 06-25-2023 End: 06-25-2023 Folate [Mass/volume] in Serum or Plasma FOLATE SERUM Lab Routine 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 Expected: 06/25/2023 (Approximate), Expires: 06/25/2023 [facility] Work Phone: Comment on above: Expected: 06/25/2023 (Approximate), Expires: 06/25/2023 Start: 06-25-2023 End: 06-25-2023 Iron and Iron binding capacity panel - Serum or Plasma IRON + TIBC Lab Routine 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 Expected: 06/25/2023 (Approximate), Expires: 06/25/2023 [facility] Work Phone: Comment on above: Expected: 06/25/2023 (Approximate), Expires: 06/25/2023 Start: 06-25-2023 End: 07-25-2023 US ABD LIVER VASCULAR US ABD LIVER VASCULAR Radiology Routine 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 Expected: 06/25/2023 (Approximate), Expires: 07/25/2023 [facility] Work Phone: Comment on above: Expected: 06/25/2023 (Approximate), Expires: 07/25/2023 Start: 05-23-2023 Depression Assessment Depression Ass essment [facility] Start: 06-19-2022 End: 08-19-2022 [id number]-4-[id number] [Mass/volume] in Serum or Plasma ALPHA FETOPROTEIN BL Lab Routine 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) MENDEZ (nonalcoholic steatohepatitis) Expected: 06/19/2022 (Approximate), Expires: 08/19/2022 [facility] Work Phone: Comment on above: Expected: 06/19/2022 (Approximate), Expires: 08/19/2022 Start: 06-19-2022 End: 12-17-2022 CBC W Auto Differential panel - Blood CBC + DIFF Lab Routine 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) MENDEZ (nonalcoholic steatohepatitis) Expected: 06/19/2022 (Approximate), Expires: 12/17/2022 [facility] Work Phone: Comment on above: Expected: 06/19/2022 (Approximate), Expires: 12/17/2022 Start: 06-19-2022 End: 12-17-2022 Cobalamin (Vitamin B12) [Mass/volume] in Serum or Plasma VITAMIN B12 BLOOD Lab Routine 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) MENDEZ (nonalcoholic steatohepatitis) Expected: 06/19/2022 (Approximate), Expires: 12/17/2022 [facility] Work Phone: Comment on above: Expected: 06/19/2022 (Approximate), Expires: 12/17/2022 Start: 06-19-2022 End: 12-17-2022 Comprehensive metabolic 2000 panel - Serum or Plasma COMP METABOLIC PANEL Lab Routine 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) MENDEZ (nonalcoholic steatohepatitis) Expected: 06/19/2022 (Approximate), Expires: 12/17/2022 [facility] Work Phone: Comment on above: Expected: 06/19/2022 (Approximate), Expires: 12/17/2022 Start: 06-19-2022 End: 12-17-2022 Ferritin [Mass/volume] in Serum or Plasma FERRITIN BLD Lab Routine 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) MENDEZ (nonalcoholic steatohepatitis) Expected: 06/19/2022 (Approximate), Expires: 12/17/2022 [facility] Work Phone: Comment on above: Expected: 06/19/2022 (Approximate), Expires: 12/17/2022 Start: 06-19-2022 End: 12-17-2022 Folate [Mass/volume] in Serum or Plasma FOLATE SERUM Lab Routine 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) MENDEZ (nonalcoholic steatohepatitis) Expected: 06/19/2022 (Approximate), Expires: 12/17/2022 [facility] Work Phone: Comment on above: Expected: 06/19/2022 (Approximate), Expires: 12/17/2022 Start: 06-19-2022 End: 12-17-2022 Iron and Iron binding capacity panel - Serum or Plasma IRON + TIBC Lab Routine 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) MENDEZ (nonalcoholic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 WILKINS PA-C Location:[facility] [place] Appointment Type:URO Procedure 30 min Appointment Date:01/02/2024 11:20:00 AM Scheduled Provider:NGA WILKINS PA-C Location:[facility] Appointment Type:URO Procedure 30 min [facility] Evaluation + Plan note Future Appointments Appointment Date:12/05/2023 11:20:00 AM Scheduled Provider:NGA WILKINS PA-C [facility] Appointment Type:URO Procedure 15 min Appointment Date:12/19/2023 11:20:00 AM Scheduled Provider:NGA WILKINS PA-C Location:[facility] Appointment Type:URO Procedure 30 min Appointment Date:01/02/2024 11:20:00 AM Scheduled Provider:NGA WILKINS PA-C [facility] Appointment Type:URO Procedure 30 min [facility] Evaluation + Plan note Future Appointments Appointment Date:12/19/2023 11:20:00 AM Scheduled Provider:NGA WILKINS PA-C Location:[facility] [place] Appointment Type:URO Procedure 30 min Appointment Date:01/02/2024 11:20:00 AM Scheduled Provider:NGA WILKINS PA-C Location:On license of [facility] Appointment Type:URO Procedure 30 min [facility] Evaluation + Plan note Future Appointments Appointment Date:02/29/2024 08:20:00 AM Scheduled Provider:NGA WILKINS PA-C Location:On license of [facility] Appointment Type:URO Office Visit [facility] Evaluation note* Diagnosis 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) Cirrhosis of liver without mention of alcohol MENDEZ (nonalcoholic steatohepatitis) Other chronic nonalcoholic liver disease documented in this encounter [facility] note* Diagnosis 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)- Primary Cirrhosis of liver without mention of alcohol MENDEZ (nonalcoholic steatohepatitis) Other chronic nonalcoholic liver disease 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 thrombocytopenia documented in this encounter [facility] noteNo InformationNort [employer] Other Evaluation note* Diagnosis MENDEZ (nonalcoholic steatohepatitis)- Primary Other chronic nonalcoholic liver disease 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) Cirrhosis of liver without mention of alcohol 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 thrombocytopenia Thrombocytopenia (HCC) Thrombocytopenia, unspecified Diabetic gastroparesis (HCC) (HCC) Type II or unspecified type diabetes mellitus with neurological manifestations, not stated as uncontrolled documented in this encounter [facility] general Narrative - Reported* Type Description Date Surgical History tonsillectomy and adenoidectomy Surgical History C section Surgical History tubal ligation Surgical History cholecystectomy Hospitalization History SEE ABOVE [facility] Other Hospital Discharge instructions No data available for this section [facility] Progress note No data available for this section [facility] (narrative)* Diagnostic Procedure Only (Routine) - Pending Review Specialty Diagnoses / Procedures Referred By Contac t Referred To Contact US IMAGING Diagnoses 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) MENDEZ (nonalcoholic steatohepatitis) Procedures US ABD RT UPPER QUADRANT US ABDOMINAL REAL TIME W/IMAGE LIMITED Andre Funes MD [address] [place] [address] [place] [address] Us Imaging Referral ID Status Reason Start Date Expiration Date Visits Requested Visits Authorized [id number] Pending Review Auto-Generat ed Referral 06/19/2022 01/16/2023 1 1 [facility] for referral (narrative)* Diagnostic Procedure Only (Routine) - Pending Review Specialty Diagnoses / Procedures Referred By Mony hinojosa Referred To Contact US IMAGING Diagnoses 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 Procedures US DOPPLER COMPLETE DUP-SCAN ARTL PATRICK ABDL/PEL/SCROT&/RPR ORGN COM Andre Funes MD [address] [place] [address] [place] [address] Us Imaging Referral ID Status Reason Start Date Expiration Date Visits Requested Visits Authorized [id number] Pending Review Auto-Generat ed Referral 06/25/2023 07/25/2023 1 1 * Diagnostic Procedure Only (Routine) - Pending Review Specialty Diagnoses / Procedures Referred By Mony hinojosa Referred To Contact US IMAGING Diagnoses 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 Procedures US ABD LIVER VASCULAR US ABDOMINAL REAL TIME W/IMAGE LIMITED DUP-SCAN ARTL PATRICK ABDL/PEL/SCROT&/RPR ORGN COM Andre Funes MD [address] [place] [address] [place] [address] Us Imaging Referral ID Status Reason Start Date Expiration Date Visits Requested Visits Authorized [id number] Pending Review Auto-Generat ed Referral 06/25/2023 07/25/2023 1 1 [facility] for referral (narrative)* Diagnostic Procedure Only (Routine) - Pending Review Specialty Diagnoses / Procedures Referred By Mony hinojosa Referred To Contact US IMAGING Diagnoses MENDEZ (nonalcoholic steatohepatitis) 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 Procedures US ABD RIGHT UPPER QUADRANT US ABDOMINAL REAL TIME W/IMAGE LIMITED Andre Funes MD [address] [place] [address] [place] [address] [place] [address] Referral ID Status Reason Start Date Expiration Date Visits Requested Visits Authorized [id number] Pending Review Auto-Generat ed Referral 06/23/2023 07/22/2024 1 1 [facility] for visit NarrativePT HERE AT REQ OF SHAKIRA HIGGINS FOR GERD, (REFERRAL NOTE RECEIVED)[facility] Other Summary Purpose Family History No Family [...] Found No data available for this section Advance Directives No Advanced Directives Records FoundNo Advanced Directives Records FoundNo Advanced Directives Records FoundNo Advanced Directives Records FoundNo Advanced Directives Records FoundNo Advanced Directives Records FoundNo Advanced Directives Records FoundNo Advanced Directives Records Found Additional Source Comments INFORMATION SOURCE (unrecogn ized section and content) DATE CREATED AUTHOR 06/16/2019 [facility] DATE CREATED AUTHOR AUTHOR'S ORGANIZ ATION 06/03/2021 [facility] DATE CREATED AUTHOR AUTHOR'S ORGANIZ ATION 03/01/2022 [facility] DATE CREATED AUTHOR AUTHOR'S ORGANIZ ATION 10/29/2022 [facility] DATE CREATED AUTHOR AUTHOR'S ORGANIZ ATION 06/26/2023 [facility] DATE CREATED AUTHOR AUTHOR'S ORGANIZ ATION 08/03/2023 [facility] DATE CREATED AUTHOR AUTHOR'S ORGANIZ ATION 11/18/2023 [facility] DATE CREATED AUTHOR AUTHOR'S ORGANIZ ATION 12/09/2023 [facility] Source Comments (unrecognize d section and content) In the event this informatio n is protected by the Federal Confidentiality of Alcohol and Drug Abuse Patient Records regulations: The Federal rules restrict any use of the information to criminally investigate or prosecute any alcohol or drug abuse patient.[facility] the event this information is protected by the Federal Confidentiality of Alcohol and Drug Abuse Patient Records regulations: The Federal rules restrict any use of the information to criminally investigate or prosecute any alcohol or drug abuse patient.[facility] System[facility] the event this information is protected by the Federal Confidentiality of Alcohol and Drug Abuse Patient Records regulations: The Federal rules restrict any use of the information to criminally investigate or prosecute any alcohol or drug abuse patient.[facility] System[facility] the event this information is protected by the Federal Confidentiality of Alcohol and Drug Abuse Patient Records regulations: The Federal rules restrict any use of the information to criminally investigate or prosecute any alcohol or drug abuse patient.[facility] Reason for Visit (unrecogniz ed section and content) Reason Comments Thrombocytopenia Reason Comments Thrombocytopenia 6 month follow up Care Teams (unrecognized sec tion and content) Personnel Name: SHAKIRA HIGGINS CNP Address: Address: [address] [place] [id number] International Logistics Manager Relationship Specialty Start Date End Date Shakira Higgins CNP [address] [place] [id number] PCP - General Internal Medicine 08/01/20 International Logistics Manager Relationship Specialty Start Date End Date Shakira Higgins CNP [address] [place] [id number] PCP - General Internal Medicine 08/01/20 FOR [...] BE BASED ON THE PRIMARY CLINICAL RECORDS. [facility]. provides no warranty or guarantee of the accuracy or completeness of information in this document.
== END 2024-01-03 09:17 | disposition home or self-care (01) ==
PROVIDERS: PCP Nurse Practitioner Family; Visit Provider Nurse Practitioner Family
DX: R16.0 Hepatomegaly, not elsewhere classified (principal)
CPT/HCPCS: 76705

== ENCOUNTER 2024-01-03 09:48 | Outpatient (OUT) | payer OTHER, MEDICAID, SELFPAY ==
--- NOTE | 2024-01-03 09:55 | CT_ITS ---
The [address] [address] Patient Name: ALBINO BARBOSA MRN: [facility]:[id number] date: 1960 Sex: F Assigned Patient Location: CT Current Patient Location: Accession/Order Number: [id number] Exam Date: 01/03/2024 10:15 Report Date: 01/03/2024 15:39 At the request of: JV JONES Procedure: CT foot LT wo con EXAMINATION: CT foot LT wo con HISTORY: Lisfranc Fracture Left COMPARISON: 12/27/2023 TECHNIQUE: Multi-planar CT images were created without IV contrast. Dose reduction techniques were achieved by using automated exposure control and/or adjustment of mA and/or kV according to patient size and/or use of iterative reconstruction technique. FINDINGS: BONES: Contour deformities consistent with a subtle nondisplaced nonacute fractures involving the neck of the third and fourth metatarsals. There is a complex fracture involving the diaphysis and neck of the fifth metatarsal. No significant bone formation is observed. No dislocation. There is normal alignment of the tarsometatarsal joints with no lateral subluxation of the forefoot in relation to the midfoot. SOFT TISSUES: Negative. No visible soft tissue swelling. EFFUSION: None visible. OTHER: Negative. CT/CT foot LT wo con IMPRESSION: Nondisplaced fractures involving the third fourth and fifth metatarsals detailed above No tarsal metatarsal dislocation observed Electronically authenticated by: KAILEE AGUSTIN Date: 01/03/2024 15:39
--- OUTSIDE RECORDS SUMMARY | 2024-01-03 09:55 | XMS_ITS | CCD ---
Author Organization [facility] CliniSyct Care Team Providers Care Construction Code Administrator Name Role Phone Shakira Higgins Primary Care Provider DR JENNIFER TURNER Consulting Unavailable YUE, DR RODRIGUEZ Attending Unavailable MISC, DR VAZQUEZ Primary Care Unavailable YUE, DR RODRIGUEZ Admitting Unavailable Keysha Naidu Consulting Unavaila marie Higgins CNP, Shakira S Primary Care Provider PROVIDER, UNKNOWN Attending Unavailable PROVIDER, UNKNOWN Admitting Unavailable Rodger Chavez Unavailable Ronaldo MOORE, Shakira S Primary Care Provider SHAKIRA HIGGINS Attending Unavailable RONALDO, SHAKIRA Admitting Unavailable RONALDO, SHAKIRA Primary Care Unavailable RONALDO, SHAKIRA Primary Care Unavailable HAY ., DR RODRIGUEZ Consulting Unavailable HAY ., DR RODRIGUEZ Attending Unavailable YUE ., DR RODRIGUEZ Admitting Unavailable RONALDO, SHAKIRA Consulting Unavailable RONALDO, SHAKIRA Attending Unavailable RONALDO, SHAKIRA Admitting Unavailable RONALDO, SHAKIRA Primary Care Unavailable MISC, DR VAZQUEZ Attending Unavailable LOLA, DR Mayram Artis Consulting Unavailable MISC, DR VAZQUEZ Admitting [...] ZIEBER, DR LEONEL Artis Consulting Unavailable RONALDO, SHAKRIA Consulting Unavailable RONALDO, SHAKIRA Primary Care Unavailable [...] Unavailable RONALDO, SHAKIRA S Primary Care Physician [phone] ABHYANKAR, ANDRE Referring Unavailable ABHYANKAR, ANDRE Attending [...] [capsaicin topical] Drug Allergy [facility] (4 sources) Capsaicin; Translations: [CAPSAICIN] Drug Allergy 4 [facility] Repository (5 sources) Capsaicin Drug Allergy Unknown [employer] Other (8 sources) Capsaicin / Turpentine; Translations: [capsaicin topical] Drug Allergy [facility] (1 source) traZODone; Translations: [TRAZODONE] Drug Allergy 4 [facility] Repository (1 source) No Known Medication Allergies; Translations: [No Known Medication Allergies] Propensity to adverse reactions (disorder) [facility] Repository Medications Current Medications Medication Drug Class(es) [...] colonoscopy, # 4 tab(s), Refills(s) 0, Pharmacy: [facility]/pharmacy #[id number], 157.5, cm, 03/18/20 13:44:00 EDT, Height/Length [...] topical powder (7 sources) Polyene Antifungal Nystatin 159194 UNIT/GM 1 application Externally Twice a day Active Nystatin 344525 UNIT/GM 1 application Externally Twice a day [...] Drug Class(es) Dates Sig (Normalized) Sig (Original) [id number] 200 actuat albuterol 0.09 mg/actuat metered dose [...] NASE) 50 mcg/actuation nasal spray Use 1 [place] in each nostril as needed. 0 Active Comment on above: Use 1 [place] in each nostril as needed. FREESTYLE JEANNE [...] Translations: [Nausea] Episodic Other aftercare (2 sources) [facility] (current) use of insulin; Translations: [[facility] CURRENT USE OF INSULIN] Onset: 1 Episodic Other aftercare (2 sources) Other meterman (current) drug therapy; Translations: [OTH [facility] CURRENT DRUG THERAPY] Onset: 1 Episodic Other aftercare (1 source) [facility] (current) use of oral hypoglycemic drugs; Translations: [[facility] USE ORAL HYPOGLYCEMIC DX] Onset: 3 Episodic [...] NGA WILKINS PA-C Where: [facility] Normal [address] [place] [address]- \.br\ You Need to Schedule the Following Appointments\.br\ Follow Up with NGA WILKINS PA-C, URL When: In 2 weeks\.br\ Where:\.br\ [address]\.br\ [place] [address]\.br\ \.br\ Medications\.br\ What How Much When Instructions\.br\ [...] Reviewed: 09/17/2021 Elsevier Patient Education ? 2022 [employer].br\ \.br\ [facility] Interdisciplinary Note - Soc ial Workeron 12-05-2023 Interdisciplinary Note - Meat Hanger Interdisciplinary Note - Meat Hanger Consult for positive depression screen received. Chart review completed and it was noted that this consult has been received in error as patient's depression screen score was 0. SW will remain available. Normal [facility] Urology Office/Clinic Noteon 12-05-2023 Urology Office/Clinic Note [...] Urnls Dip Stick Auto w/o Microscopy POC 68026 Follow-up With When Contact Information JUANITO BREWER, NGA Freedman, URL In 2 weeks [address] [place] [address] Additional Instructions: Patient Education Kegel [...] 1 cap (more content not included)... Normal [facility] Comment on above: Result Comment: Elec tronically [...] NGA WILKINS PA-C Where: [facility] Invalid Interpretation Code [address] [place] [place] [address]- \.br\ Tuesday 11:20 AM EDT \.br\ With: NGA WILKINS PA-C\.br\ Where: [facility] Urology Office/Clinic Noteon 11-28-2023 Urology Office/Clinic [...] and discuss other options, try PFPT at [facility] or [facility]. Pt prefers options #1. Follow up 1 week for PFPT #4 or sooner if needed. Pt understands and agrees with plan. Follow-up With When Contact Information JUANITO BREWER, NGA Freedman, URL [address] [facility] [place] [address] Additional Instructions: 1 week PFPT #4 Patient [...] Daily Magdaleno (more content not included)... Normal [facility] Comment on above: Result Comment: Elec tronically [...] NGA WILKINS PA-C Where: [facility] Invalid Interpretation Code [address] [place] [address]- \.br\ Tuesday 11:20 AM EDT \.br\ With: NGA WILKINS PA-C\.br\ Where: [facility] Urology Office/Clinic Noteon 11-21-2023 Urology Office/Clinic Note [...] in 1 week(s) for session #3 Ordered: 93057 EMG anal/urethral sphincter no needle 64880 Biofeedback training, perineal muscles, anorectal 95664 Anorectal Manometry 03035 ELECTRICAL STIMULATION 52135 Urnls Dip Stick Auto w/o Microscopy POC 71439 Follow-up With When Contact Information NGA WILKINS PA-C, URL In 1 week [address] [place] [address] Additional Instructions: Patient Education Overactive [...] Use:. Cigarett (more content not included)... Normal [facility] Comment on above: Result Comment: Elec tronically Signed By: NGA WILKINS PA-C\.br\Date and Time Signed: 11/21/23 12:27 EDT Consent for Procedure/Surger yon 11-15-2023 Consent for Procedure/Surgery [id number]#1.[address] [facility] EMG Electromyographyon 11-14 EMG Electromyography [id number]#1.[address] [facility] Ambulatory Visit Summaryon 0 11-14-2023 Ambulatory Visit [...] NGA WILKINS PA-C Where: [facility] Invalid Interpretation Code [address] [place] [address]- \.br\ Tuesday 11:20 AM EDT \.br\ With: NGA WILKINS PA-C\.br\ Where: [facility] Patient Educationon 11-14-19 Patient Education Obstetrics [...] health care provider. General instructions ? Take kgyy-hrd-vhmiqqw and prescription medicines only as told by [...] monitor yo (more content not included)... Normal [facility] Urology Office/Clinic Noteon 11-14-2023 Urology Office/Clinic Note [...] in 1 week(s) for session #2 Ordered: 84455 EMG anal/urethral sphincter no needle 42493 Biofeedback training, perineal muscles, anorectal 85668 Anorectal Manometry 31138 ELECTRICAL STIMULATION 50892 Urnls Dip Stick Auto w/o Microscopy POC 34484 Urnls Dip Stick Auto w/o Microscopy POC 04986 Follow-up With When Contact Information NGA WILKINS PA-C, YARA In 1 week [address] [place] [address] Additional Instructions: Patient Education Overactive [...] or more (more content not included)... Normal [facility] Comment on above: Result Comment: Elec tronically Signed By: JUANITO BREWER, NGA Freedman\.br\Date and Time Signed: 11/14/23 12:44 EDT Office Visiton 08-02-2023 Follow-up visit [id number] Renetta Barbosa 1960 F Date Provider Department Center 08/02/2023 CHAVA NUNES FENG Goncalves Family History Problem Relation Age of Onset Diabetes Mother Lung cancer Father Breast cancer Maternal Grandmother Family Status - Relation Status Age at Mother Father Maternal Grandmother Level of Service:43479 PA OFFICE/OUTPATIENT NEW MODERATE MDM 45 MINUTES Normal [facility] CBC W Auto Differential pane l (Bld)on 06-23-2023 Basophils (Bld) [#/Vol] 0.03 10*3/uL Normal <0.11 [facility] Comment on above: Order Comment: Speci men Type: BLOOD SPECIMEN Ordering Facility: [facility] Address: [address] [place] [address] Performed By: #### 5 7021-8 #### [facility] CLIA [id number] [address] [place] [address] 18164 Basophils/100 WBC (Bld) 0.5 % Normal [facility] Comment on above: Order Comment: Speci men Type: BLOOD SPECIMEN Ordering Facility: [facility] Address: [address] [place] [address] Performed By: #### 5 7021-8 #### [facility] CLIA [id number] [address] [place] [address] 09438 Differential cell count method Nom (Bld) Auto Normal [facility] Comment on above: Order Comment: Speci men Type: BLOOD SPECIMEN Ordering Facility: [facility] Address: [address] [place] [address] Performed By: #### 5 7021-8 #### [facility] CLIA [id number] [address] [place] [address] 93844 Eosinophils (Bld) [#/Vol] 0.06 10*3/uL Normal <0.46 [facility] Comment on above: Order Comment: Speci men Type: BLOOD SPECIMEN Ordering Facility: [facility] Address: [address] [place] [address] Performed By: #### 5 7021-8 #### [facility] CLIA [id number] [address] [place] [address] 89583 Eosinophils/100 WBC (Bld) 1.0 % Normal [facility] Comment on above: Order Comment: Speci men Type: BLOOD SPECIMEN Ordering Facility: [facility] Address: [address] [place] [address] Performed By: #### 5 7021-8 #### [facility] CLIA [id number] [address] [place] [address] 83199 Erythrocyte distribution width (RBC) [Ratio] 16.0 % High 11.5-15.0 [facility] Comment on above: Order Comment: Speci men Type: BLOOD SPECIMEN Ordering Facility: [facility] Address: [address] [place] [address] Performed By: #### 5 7021-8 #### [facility] CLIA [id number] [address] [place] [address] 31919 Hematocrit (Bld) [Volume fraction] 43.6 % Normal 36.0-46.0 [facility] Comment on above: Order Comment: Speci men Type: BLOOD SPECIMEN Ordering Facility: [facility] Address: [facility] [place] [address] Performed By: #### 5 7021-8 #### [facility] CLIA [id number] [address] [place] [address] 71379 Hemoglobin (Bld) [Mass/Vol] 13.7 g/dL Normal 11.5-15.5 [facility] Comment on above: Order Comment: Speci men Type: BLOOD SPECIMEN Ordering Facility: [facility] Address: [address] [place], [place] [address] Performed By: #### 5 7021-8 #### [facility] CLIA [id number] [address] [place] [address] 85697 Immature granulocytes (Bld) [#/Vol] 10*3/uL Normal <0.10 [facility] Comment on above: Order Comment: Speci men Type: BLOOD SPECIMEN Ordering Facility: [facility] Address: [address] [place] [address] Performed By: #### 5 7021-8 #### [facility] CLIA [id number] [address] [place] [address] 23467 Immature granulocytes/100 WBC (Bld) 0.3 % Normal [facility] Comment on above: Order Comment: Speci men Type: BLOOD SPECIMEN Ordering Facility: [facility] Address: [address] [place] [address] Performed By: #### 5 7021-8 #### [facility] CLIA [id number] [address] [place] [address] 37299 Lymphocytes (Bld) [#/Vol] 1.03 10*3/uL Normal 1.00-4.00 [facility] Comment on above: Order Comment: Speci men Type: BLOOD SPECIMEN Ordering Facility: [facility] Address: [address] [place] [address] Performed By: #### 5 7021-8 #### [facility] CLIA [id number] [address] [place] [address] 40852 Lymphocytes/100 WBC (Bld) 17.3 % Normal [facility] Comment on above: Order Comment: Speci men Type: BLOOD SPECIMEN Ordering Facility: [facility] Address: [address] [place] [address] Performed By: #### 5 7021-8 #### [facility] CLIA [id number] [address] [place] [address] 46317 MCH (RBC) [Entitic mass] 26.7 pg Normal 26.0-34.0 [facility] Comment on above: Order Comment: Speci men Type: BLOOD SPECIMEN Ordering Facility: [facility] Address: [address] [place] [address] Performed By: #### 5 7021-8 #### [facility] CLIA [id number] [address] [place] [address] 55350 MCHC (RBC) [Mass/Vol] 31.4 g/dL Normal 30.5-36.0 [facility] Comment on above: Order Comment: Speci men Type: BLOOD SPECIMEN Ordering Facility: [facility] Address: [address] [place] [address] Performed By: #### 5 7021-8 #### [facility] CLIA [id number] [address] [place] [address] 70892 MCV (RBC) [Entitic vol] 85.0 fL Normal 80.0-100.0 [facility] Comment on above: Order Comment: Speci men Type: BLOOD SPECIMEN Ordering Facility: [facility] Address: [address] [place] [address] Performed By: #### 5 7021-8 #### [facility] CLIA [id number] [address] [place] [address] 73232 Monocytes (Bld) [#/Vol] 0.35 10*3/uL Normal <0.87 [facility] Comment on above: Order Comment: Speci men Type: BLOOD SPECIMEN Ordering Facility: [facility] Address: [address] [place] [address], [place] [address] Performed By: #### 5 7021-8 #### [facility] CLIA [id number] [address] [place] [address] 26665 Monocytes/100 WBC (Bld) 5.9 % Normal [facility] Comment on above: Order Comment: Speci men Type: BLOOD SPECIMEN Ordering Facility: [facility] Address: [address] [place], [place] [address] Performed By: #### 5 7021-8 #### [facility] CLIA [id number] [address] [place] [address] 32991 Neutrophils (Bld) [#/Vol] 4.46 10*3/uL Normal 1.45-7.50 [facility] Comment on above: Order Comment: Speci men Type: BLOOD SPECIMEN Ordering Facility: [facility] Address: [address] [place] [address] Performed By: #### 5 7021-8 #### [facility] CLIA [id number] [address] [place] [address] 57240 Neutrophils/100 WBC (Bld) 75.0 % Normal [facility] Comment on above: Order Comment: Speci men Type: BLOOD SPECIMEN Ordering Facility: [facility] Address: [address] [place] [address] Performed By: #### 5 7021-8 #### [facility] CLIA [id number] [address] [place] [address] 70586 Nucleated RBC (Bld) [#/Vol] 10*3/uL Normal <0.01 [facility] Comment on above: Order Comment: Speci men Type: BLOOD SPECIMEN Ordering Facility: [facility] Address: [address] [place], [place] [address] Performed By: #### 5 7021-8 #### [facility] CLIA [id number] [address] [place] [address] 58337 Nucleated RBC/100 WBC (Bld) [Ratio] 0.0 /100 WBC Normal [facility] Comment on above: Order Comment: Speci men Type: BLOOD SPECIMEN Ordering Facility: [facility] Address: [address] [place] [address] Performed By: #### 5 7021-8 #### [facility] CLIA [id number] [address] [place] [address] 29782 Platelet mean volume (Bld) [Entitic vol] 11.9 fL Normal 9.0-12.7 [facility] Comment on above: Order Comment: Speci men Type: BLOOD SPECIMEN Ordering Facility: [facility] Address: [address] [place] [address]10 Performed By: #### 5 7021-8 #### [facility] CLIA [id number] [address] [place] [address] 51341 Platelets (Bld) [#/Vol] 140 10*3/uL Low 150-400 [facility] Comment on above: Order Comment: Speci men Type: BLOOD SPECIMEN Ordering Facility: [facility] Address: [address] [place] [address]26 Performed By: #### 5 7021-8 #### [facility] CLIA [id number] [address] [place] [address] 20233 RBC (Bld) [#/Vol] 5.13 10*6/uL Normal 3.90-5.20 [facility] Comment on above: Order Comment: Speci men Type: BLOOD SPECIMEN Ordering Facility: [facility] Address: [address] [place] [address] Performed By: #### 5 7021-8 #### [facility] CLIA [id number] [address] [place] [address] 72970 WBC (Bld) [#/Vol] 5.95 10*3/uL Normal 3.70-11.00 [facility] Comment on above: Order Comment: Speci men Type: BLOOD SPECIMEN Ordering Facility: [facility] Address: [address] [place] [address]802 Performed By: #### 5 7021-8 #### [facility] CLIA [id number] [address] [place] [address] 10668 CNOVSPon 06-23-2023 CNOVSP Visit (SP) Office ([place]) RENETTA BARBOSA ([id number]) 1960 F Date Time Provider Department 06/23/23 2:00 PM ANDRE FUNES During your visit today, we recorded the following information about you: Temperature Pulse Respiration Blood pressure 97.6 degrees 107/minute 18/minute 149/93 Weight Height 91.1 kg 1.575 m Andre Funes MD 06/26/2023 1:35 PM Signed NAME: Renetta Barbosa CLINIC NO.: [id number] DATE OF SERVICE: [facility] 23[facility] 2023 [facility] Some elements in this clinic note [...] HCC screening PLAN: Need US results from [facility] from last week. Recommend alternating follow [...] returns today in follow up. US in [facility] with enlarged nodular liver no masses. [...] medical changes. (more content not included)... Normal [facility] Comprehensive metabolic 2000 panelon 06-23-2023 Albumin [Mass/Vol] 4.5 g/dL Normal 3.9-4.9 [facility] Comment on above: Order Comment: Kevin quintero Type: BLOOD SPECIMEN Ordering Facility: [facility] Address: [address] [place] [address] Performed By: #### 2 4323-8 #### [facility] CLIA [id number] [address] [place] [address] ALP [Catalytic activity/Vol] 112 U/L Normal 34-123 [facility] Comment on above: Order Comment: Kevin quintero Type: BLOOD SPECIMEN Ordering Facility: [facility] Address: [address] [place] [address] Performed By: #### 2 4323-8 #### [facility] CLIA [id number] [address] [place] [address] ALT [Catalytic activity/Vol] 29 U/L Normal 7-38 [facility] Comment on above: Order Comment: Speci men Type: BLOOD SPECIMEN Ordering Facility: [facility] Address: [address] [place] [address] Performed By: #### 2 4323-8 #### [facility] CLIA [id number] [address] [place] [address] Anion gap [Moles/Vol] 14 mmol/L Normal 9-18 [facility] Comment on above: Order Comment: Speci men Type: BLOOD SPECIMEN Ordering Facility: [facility] Address: [address] [place] [address] Performed By: #### 2 4323-8 #### [facility] CLIA [id number] [address] [place] [address] AST [Catalytic activity/Vol] 31 U/L Normal 13-35 [facility] Comment on above: Order Comment: Speci men Type: BLOOD SPECIMEN Ordering Facility: [facility] Address: [address] [address] Performed By: #### 2 4323-8 #### [facility] CLIA [id number] [address] [place] [address] Bilirubin [Mass/Vol] 0.4 mg/dL Normal 0.2-1.3 [facility] Comment on above: Order Comment: Speci men Type: BLOOD SPECIMEN Ordering Facility: [facility] Address: [address] [address] Performed By: #### 2 4323-8 #### [facility] CLIA [id number] [address] [place] [address] Calcium [Mass/Vol] 9.8 mg/dL Normal 8.5-10.2 [facility] Comment on above: Order Comment: Speci men Type: BLOOD SPECIMEN Ordering Facility: [facility] Address: [address] [address] Performed By: #### 2 4323-8 #### [facility] CLIA [id number] [address] [place] [address] Chloride [Moles/Vol] 100 mmol/L Normal 97-105 [facility] Comment on above: Order Comment: Speci men Type: BLOOD SPECIMEN Ordering Facility: [facility] Address: [address] [place] [address] Performed By: #### 2 4323-8 #### [facility] CLIA [id number] [address] [place] [address] CO2 [Moles/Vol] 19 mmol/L Low 22-30 [facility] Comment on above: Order Comment: Speci men Type: BLOOD SPECIMEN Ordering Facility: [facility] Address: [address] [place] [address] Performed By: #### 2 4323-8 #### [facility] CLIA [id number] [address] [place] [address] 94828 Creatinine [Mass/Vol] 0.72 mg/dL Normal 0.58-0.96 [facility] Comment on above: Order Comment: Speci men Type: BLOOD SPECIMEN Ordering Facility: [facility] Address: [address] [place] [address] Performed By: #### 2 4323-8 #### [facility] CLIA [id number] [address] [place] [address] 80504 Creatinine and Glomerular filtration rate.predicted panel (S/P/Bld) 94 mL/min/1.73m??? Normal >=60 [facility] Comment on above: Order Comment: Speci men Type: BLOOD SPECIMEN Ordering Facility: [facility] Address: [address] [place] [address] Result Comment: Alisha mated Glomerular Filtration Rate [...] GFR. Performed By: #### 2 4323-8 #### [facility] CLIA [id number] [address] [place] [address] 96119 Glucose [Mass/Vol] 316 mg/dL High 74-99 [facility] Comment on above: Order Comment: Speci men Type: BLOOD SPECIMEN Ordering Facility: [facility] Address: [address] [place] [address]189 Result Comment: The [place] [employer] (ADA) provides guidance for cutoff [...] Standards of Medical Care in Diabetes 2016, [place] [employer]. Diabetes Care. 2016.39(Suppl 1). Performed By: #### 2 4323-8 #### [facility] CLIA [id number] [address] [place] [address] 44910 Potassium [Moles/Vol] 3.9 mmol/L Normal 3.7-5.1 [facility] Comment on above: Order Comment: Napoleoni men Type: BLOOD SPECIMEN Ordering Facility: [facility] Address: [address] [place] [address] Performed By: #### 2 4323-8 #### [facility] CLIA [id number] [address] [place] [address] 74536 Protein [Mass/Vol] 7.6 g/dL Normal 6.3-8.0 [facility] Comment on above: Order Comment: Speci men Type: BLOOD SPECIMEN Ordering Facility: [facility] Address: [address] [place] [address] Performed By: #### 2 4323-8 #### [facility] CLIA [id number] [address] [place] [address] Sodium [Moles/Vol] 133 mmol/L Low 136-144 [facility] Comment on above: Order Comment: Speci men Type: BLOOD SPECIMEN Ordering Facility: [facility] Address: [address] [place] [address] Performed By: #### 2 4323-8 #### [facility] CLIA [id number] [address] [place] [address]25 Urea nitrogen [Mass/Vol] 14 mg/dL Normal 7-21 [facility] Comment on above: Order Comment: Speci men Type: BLOOD SPECIMEN Ordering Facility: [facility] Address: [address] [place] [address] Performed By: #### 2 4323-8 #### [facility] CLIA [id number] [address] [place] [address] Ferritin SerPl-mCncon 2023 Ferritin [Mass/Vol] 20.1 ng/mL Normal 14.7-205.1 [facility] Comment on above: Order Comment: Speci men Type: BLOOD SPECIMEN Ordering Facility: [facility] Address: [address] [place] [address] Performed By: #### 5 0190-8, 2132-9, 2276-4, 2284-8 #### [facility] CLIA [id number] [address] [place] [address] [place] Folate SerPl-mCncon 06-23-19 24 Folate [Mass/Vol] 11.2 ng/mL Normal >4.7 [facility] Comment on above: Order Comment: Speci men Type: BLOOD SPECIMEN Ordering Facility: [facility] Address: [address] [place] [address] Performed By: #### 5 0190-8, 2132-9, 2276-4, 2284-8 #### [facility] CLIA [id number] [address] [place] [address] [place] Iron and Iron binding capaci ty panelon 06-23-2023 Iron [Mass/Vol] 96 ug/dL Normal 41-186 [facility] Comment on above: Order Comment: Speci men Type: BLOOD SPECIMEN Ordering Facility: [facility] Address: [address] [place], [place] [id number] Performed By: #### 5 0190-8, 9, 2275-08, 2283-12 #### [facility] CLIA [id number] [address] [place], [place] [id number] [place] Iron binding capacity [Mass/Vol] 434 ug/dL High 232-386 [facility] Comment on above: Order Comment: Speci men Type: BLOOD SPECIMEN Ordering Facility: [facility] Address: [address] [place], [place] [address] Performed By: #### 5 0190-8, 9, 2275-08, 2283-12 #### [facility] CLIA [id number] [address] [place], [place] [address] [place] Iron/TIBC [Molar ratio] 22.1 % Normal 15.0-57.0 [facility] Comment on above: Order Comment: Speci men Type: BLOOD SPECIMEN Ordering Facility: [facility] Address: [address] [place], [place] [address] Performed By: #### 5 0190-8, 9, 2275-08, 2283-12 #### [facility] CLIA [id number] [address] [place] [address] [place] Vit B12 [facility] 06-23-2 024 Cobalamin (Vitamin B12) [Mass/Vol] 586 pg/mL Normal 232-1245 [facility] Comment on above: Order Comment: Speci men Type: BLOOD SPECIMEN Ordering Facility: [facility] Address: [address] [place], [place] [address] Performed By: #### 5 0190-8, 9, 2275-08, 2283-12 #### [facility] CLIA [id number] [address] [place], [place] [address] [place] Office Visiton 06-21-2023 Follow-up visit [id number] Renetta Barbosa 1960 F Date Provider Department Center 06/21/2023 Jose6-MAHAMED VILLELA [facility] Family History Problem Relation Age of Onset Diabetes Mother Lung cancer Father Breast cancer Maternal Grandmother Family Status - Relation Status Age at Mother Father Maternal Grandmother Level of Service:00434 PA OFFICE/OUTPATIENT NEW MODERATE MDM 45 MINUTES Normal [facility] Lab Reportson 05-04-2023 Lab Reports [id number]#1.[address] [facility] Physician Referralon 023 Physician Referral [id number]#1.[address] [facility] Screenson 05-04-2023 Screens [id number] 20 [id number]#1.[address] [facility] Patient Educationon 05-03-20 23 Patient Education Obstetrics [...] health care provider. General instructions ? Take vozh-dcb-gmmnmsj and prescription medicines only as told by [...] monitor yo (more content not included)... Normal [facility] CT LUNG CANCER SCREENINGon 0 10-20-2022 CT [...] LEONEL MATA Date: 2022-10-20 08:02 Normal [facility] CBC AUTO DIFFon 10-19-2022 BASO # 0.0 103/ul Normal 0.0-0.1 [facility] Comment on above: Performed By: #### C BC #### [facility] [address] [address] [address] Blanquita Farris Basophils/100 WBC (Bld) 0.4 % Normal 0.2-2.0 [facility] Comment on above: Performed By: #### C BC #### [facility] [address] [address] [address] Blanquita Farris EO # 0.1 103/ul Normal 0.0-0.7 [facility] Comment on above: Performed By: #### C BC #### [facility] [address] [place] [address] Dr. Blanquita Farris Eosinophils/100 WBC (Bld) 1.5 % Normal 0.9-7.0 [facility] Comment on above: Performed By: #### C BC #### [facility] [address] [address] [address] Blanquita Farris Erythrocyte distribution width (RBC) [Ratio] 15.3 % Critically high 11.0-15.0 [facility] Comment on above: Performed By: #### C BC #### [facility] [address] [address] [address] Blanquita Farris Hematocrit (Bld) [Volume fraction] 42.7 % Normal 36.0-48.0 [facility] Comment on above: Performed By: #### C BC #### [facility] [address] [address] [address] Blanquita Farris Hemoglobin (Bld) [Mass/Vol] 13.8 g/dL Normal 12.0-16.0 [facility] Comment on above: Performed By: #### C BC #### [facility] [address] [address] [address] Blanquita Farris IG # 0.04 10e3/ul Critically high 0.00-0.03 [facility] Comment on above: Performed By: #### C BC #### [facility] [address] [place] [address] Dr. Blanquita Farris IG % 0.6 % Critically high 0.0-0.5 [facility] Comment on above: Performed By: #### C BC #### [facility] [address] [place] [address] Dr. Blanquita Farris LYMPH # 1.2 103/ul Normal 1.2-3.8 [facility] Comment on above: Performed By: #### C BC #### [facility] [address] [place] [address] Dr. Blanquita Farris Lymphocytes/100 WBC (Bld) 18.0 % Critically low 20.5-60.0 [facility] Comment on above: Performed By: #### C BC #### [facility] [address] [place] [address] Dr. Blanquita Farris MANUAL DIFF REQ NO Normal [facility] Comment on above: Performed By: #### C BC #### [facility] [address] [place] [address] Dr. Blanquita Farris MCH (RBC) [Entitic mass] 26.8 pg Normal 26.7-34.0 [facility] Comment on above: Performed By: #### C BC #### [facility] [address] [place] [address] Dr. Blanquita Farris MCHC (RBC) [Mass/Vol] 32.3 g/dL Normal 29.9-35.2 [facility] Comment on above: Performed By: #### C BC #### [facility] [address] [place] [address] Dr. Blanquita Farris MCV (RBC) [Entitic vol] 83.1 fL Normal 81.0-99.0 [facility] Comment on above: Performed By: #### C BC #### [facility] [address] [place] [address] Dr. Blanquita Farris MONO # 0.4 103/ul Normal 0.3-0.8 [facility] Comment on above: Performed By: #### C BC #### [facility] [address] [place] [address] Dr. Blanquita Farris Monocytes/100 WBC (Bld) 5.4 % Normal 1.7-12.0 [facility] Comment on above: Performed By: #### C BC #### [facility] [address] [place] [address] Dr. Blanquita Farris NEUT # 5.0 103/ul Normal 1.4-6.5 [facility] Comment on above: Performed By: #### C BC #### [facility] [address] [place] [address] Dr. Blanquita Farris Neutrophils/100 WBC (Bld) 74.1 % Normal 43.0-75.0 [facility] Comment on above: Performed By: #### C BC #### [facility] [address] [place] [address] Dr. Blanquita Farris Platelet mean volume (Bld) [Entitic vol] 10.2 fL Normal 9.5-13.5 [facility] Comment on above: Performed By: #### C BC #### [facility] [address] [place] [address] Dr. Blanquita Farris PLT 180 103/ul Normal 150-450 [facility] Comment on above: Performed By: #### C BC #### [facility] [address] [place] [address] Dr. Blanquita Farris RBC 5.14 106/ul Normal 4.20-5.40 [facility] Comment on above: Performed By: #### C BC #### [facility] [address] [place] [address] Dr. Blanquita Farris WBC 6.8 103/ul Normal 4.0-11.0 [facility] Comment on above: Performed By: #### C BC #### [facility] [address] [place] [address] Dr. Blanquita Farris CPKon 10-19-2022 CK [Catalytic activity/Vol] 68 U/L Normal 26-192 [facility] Comment on above: Performed By: #### C MP, CK, TSH #### [facility] [address] [place], [place] [address] Dr. Blanquita Farris MG MAMM SCREEN 3D SANTIAGO CADon 10-19-2022 MG MAMM SCREEN 3D SANTIAGO CAD Patient: RENETTA BARBOSA Exam Date: 10/19/2022 : 1960 Gender:F Ordering : [facility] Admission #: [id number] Family : DR LUL DUTTON Order #: [id number] CLICK HERE TO VIEW EXAM RADIOLOGY REPORT [...] breast cancer at age 80. LOCATION: [facility] BREAST COMPOSITION: Scattered areas fibroglandular density. FINDINGS: [...] MD on 10/19/2022 at 13:50 Normal [facility] PROF 14(COMP METB)on 023 Albumin [Mass/Vol] 3.7 g/dL Normal 3.4-5.0 [facility] Comment on above: Performed By: #### C MP, CK, TSH #### [facility] [address] [place], [place] [address] Dr. Blanquita Farris Albumin/Globulin [Mass ratio] 0.8 {ratio} Normal [facility] Comment on above: Performed By: #### C MP, CK, TSH #### [facility] [address] [place], [place] [address] Dr. Blanquita Farris ALP [Catalytic activity/Vol] 120 U/L Critically high 46-116 [facility] Comment on above: Performed By: #### C MP, CK, TSH #### [facility] [address] [address] [address] Blanquita Farris ALT [Catalytic activity/Vol] 31 U/L Normal 14-59 [facility] Comment on above: Performed By: #### C MP, CK, TSH #### [facility] [address] [address] [address] Blanquita Farris Anion gap [Moles/Vol] 14.2 mmol/L Normal [facility] Comment on above: Performed By: #### C MP, CK, TSH #### [facility] [address] [address] [address] Blanquita Farris AST [Catalytic activity/Vol] 19 U/L Normal 15-37 [facility] Comment on above: Performed By: #### C MP, CK, TSH #### [facility] [address] [place] [address] Dr. Blanquita Farris Bilirubin [Mass/Vol] 0.3 mg/dL Normal 0.2-1.0 [facility] Comment on above: Performed By: #### C MP, CK, TSH #### [facility] [address] [place] [address] Dr. Blanquita Farris Calcium [Mass/Vol] 9.4 mg/dL Normal 8.5-10.1 [facility] Comment on above: Performed By: #### C MP, CK, TSH #### [facility] [address] [address] [address] Blanquita Farris Chloride [Moles/Vol] 101 mmol/L Normal 98-107 [facility] Comment on above: Performed By: #### C MP, CK, TSH #### [facility] [address] [address] [address] Blanquita Farris CO2 [Moles/Vol] 28.4 mmol/L Normal 21.0-32.0 [facility] Comment on above: Performed By: #### C MP, CK, TSH #### [facility] [address] [place] [address] Dr. Blanquita Farris Creatinine [Mass/Vol] 1.04 mg/dL Critically high 0.55-1.02 [facility] Comment on above: Performed By: #### C MP, CK, TSH #### [facility] [address] [address] [address] Blanquita Farris EGFR-AF TANZANIAN >60 Normal >=60 [facility] Comment on above: Performed By: #### C MP, CK, TSH #### [facility] [address] [address] [address] Blanquita Farris EGFR-NON AF TANZANIAN 54 mL/min/1.73m2 Critically low >=60 [facility] Comment on above: Performed By: #### C MP, CK, TSH #### [facility] [address] [place] [address] Dr. Blanquita Farris Globulin (S) [Mass/Vol] 4.6 g/dL Normal [facility] Comment on above: Performed By: #### C MP, CK, TSH #### [facility] [address] [address] [address] Blanquita Farris Glucose [Mass/Vol] 194 mg/dL Critically high 74-106 [facility] Comment on above: Performed By: #### C MP, CK, TSH #### [facility] [address] [address] [address] Blanquita Farris Potassium [Moles/Vol] 3.6 mmol/L Normal 3.5-5.1 [facility] Comment on above: Performed By: #### C MP, CK, TSH #### [facility] [address] [place] [address] Dr. Blanquita Farris Protein [Mass/Vol] 8.3 g/dL Critically high 6.4-8.2 [facility] Comment on above: Performed By: #### C MP, CK, TSH #### [facility] [address] [place] [address] Dr. Blanquita Farris Sodium [Moles/Vol] 140 mmol/L Normal 136-145 [facility] Comment on above: Performed By: #### C MP, CK, TSH #### [facility] [address] [address] [address] Blanquita Farris Urea nitrogen [Mass/Vol] 13.0 mg/dL Normal 7.0-18.0 [facility] Comment on above: Performed By: #### C MP, CK, TSH #### [facility] [address] [place] [address] Dr. Blanquita Farris Urea nitrogen/Creatinine [Mass ratio] 12.5 mg/mg Normal [facility] Comment on above: Performed By: #### C MP, CK, TSH #### [facility] [address] [place] [address] Dr. Blanquita Farris TSHon 10-19-2022 TSH 0.292 uIU/mL Critically low 0.358-3.740 [facility] Comment on above: Performed By: #### C MP, CK, TSH #### [facility] [address] [place] [address] Dr. Blanquita Farris VITAMIN B12on 10-19-2022 Cobalamin (Vitamin B12) [Mass/Vol] 912.0 pg/mL Normal 193.0-986.0 [facility] Comment on above: Performed By: #### V ITB12 #### [facility] [address] [place] [address] Dr. Blanquita Farris US SINGLE QUAD RT [...] by: KAILEE YANG Date: 2022-06-10 11:46 Normal [facility] US SPLEENon 06-10-2022 US SPLEEN EXAM: US [...] by: KAILEE YANG Date: 2022-06-10 12:04 Normal [facility] LACTOFERRIN FECAL QUANTon Lactoferrin, Fecal, Quant. 1.96 ug/mL(g) Normal 0.00-7.24 [facility] Comment on above: Result Comment: . Baseline [...] (IBS). Performed By: #### I NSULIN #### [facility] [address] [address] [address] Blanquita Farris CALPROTECTIN, FECALon 2021 Calprotectin, Fecal 33 ug/g Normal 0-120 [facility] Comment on above: Result Comment: Conc entration Interpretation Follow-Up <16 - 50 ug/g Normal None >50 -120 ug/g Borderline Re-evaluate in 4-6 weeks >120 ug/g Abnormal Repeat as clinically indicated Performed By: #### C ALPOO #### [facility] [address] [address] [address] Blanquita Farris PANCREATIC ELASTASE FECALon 03-20-2022 Pancreatic Elastase, Fecal 364 ug Elast./g Normal >200 [facility] Comment on above: Result Comment: Korina re Pancreatic Insufficiency: <100 Moderate Pancreatic Insufficiency: 100 - 200 Normal: >200 Performed By: #### C BC #### [facility] [address] [place] [address] Dr. Blanquita Farris BOWEL DISORDERS EVALUATION R ULE-OUT CASCon 03-18-2022 Atypical pANCA Negative Normal Negative [facility] Comment on above: Performed By: #### C BC #### [facility] [address] [place] [address] Dr. Blanquita Farris Note: Comment Normal [facility] Comment on above: Result Comment: Sugg estive of Crohn's disease. Subsequent testing with the Crohn's Disease Prognostic Profile (594595) that includes antiglycan antibodies AMCA, ALCA, ACCA, and Xochitl may aid in the differentiation of clinical forms of CD and prognosis of disease progression. Performed By: #### C BC #### [facility] [address] [place] [address] Dr. Blanquita aFrris Saccharomyces Cer. IgG 28.0 Units Critically high 0.0-24.9 [facility] Comment on above: Result Comment: Nega tive <20.0 Equivocal 20.1 - 24.9 Positive >or= 25.0 Performed By: #### C BC #### [facility] [address] [place] [address] Dr. Blanquita Farris tTG/DGP SCR Negative Normal Negative [facility] Comment on above: Performed By: #### C BC #### [facility] [address] [place] [address] Dr. Blanquita Farris INSULINon 03-16-2022 Insulin 43.0 uIU/mL Critically high 2.6-24.9 [facility] Comment on above: Performed By: #### I NSULIN #### [facility] [address] [place] [address] Dr. Blanquita Farris OCC BLD IMMUNO SCREENon 02-21 OCCULT BLOOD Negative Normal NEGATIVE [facility] Comment on above: Performed By: #### C BC #### [facility] [address] [place] [address] Dr. Blanquita Farris CBC AUTO DIFFon 03-15-2022 BASO # 0.0 103/ul Normal 0.0-0.1 [facility] Comment on above: Performed By: #### C BC #### [facility] [address] [place] [address] Dr. Blanquita Farris Basophils/100 WBC (Bld) 0.7 % Normal 0.2-2.0 [facility] Comment on above: Performed By: #### C BC #### [facility] [address] [place] [address] Dr. Blanquita Farris EO # 0.2 103/ul Normal 0.0-0.7 [facility] Comment on above: Performed By: #### C BC #### [facility] [address] [place] [address] Dr. Blanquita Farris Eosinophils/100 WBC (Bld) 2.7 % Normal 0.9-7.0 [facility] Comment on above: Performed By: #### C BC #### [facility] [address] [place] [address] Dr. Blanquita Farris Erythrocyte distribution width (RBC) [Ratio] 14.8 % Normal 11.0-15.0 [facility] Comment on above: Performed By: #### C BC #### [facility] [address] [place] [address] Dr. Blanquita Farris Hematocrit (Bld) [Volume fraction] 43.4 % Normal 36.0-48.0 [facility] Comment on above: Performed By: #### C BC #### [facility] [address] [place] [address] Dr. Blanquita Farris Hemoglobin (Bld) [Mass/Vol] 14.1 g/dL Normal 12.0-16.0 [facility] Comment on above: Performed By: #### C BC #### [facility] [address] [place] [address] Dr. Blanquita Farris IG # 0.03 10e3/ul Normal 0.00-0.03 [facility] Comment on above: Performed By: #### C BC #### [facility] [address] [place] [address] Dr. Blanquita Farris IG % 0.5 % Normal 0.0-0.5 [facility] Comment on above: Performed By: #### C BC #### [facility] [address] [place] [address] Dr. Blanquita Farris LYMPH # 1.1 103/ul Critically low 1.2-3.8 [facility] Comment on above: Performed By: #### C BC #### [facility] [address] [place] [address] Dr. Blanquita Farris Lymphocytes/100 WBC (Bld) 18.9 % Critically low 20.5-60.0 [facility] Comment on above: Performed By: #### C BC #### [facility] [address] [place] [address] Dr. Blanquita Farris MANUAL DIFF REQ NO Normal [facility] Comment on above: Performed By: #### C BC #### [facility] [address] [place] [address] Dr. Blanquita Farris MCH (RBC) [Entitic mass] 27.9 pg Normal 26.7-34.0 [facility] Comment on above: Performed By: #### C BC #### [facility] [address] [place] [address] Dr. Blanquita Farris MCHC (RBC) [Mass/Vol] 32.5 g/dL Normal 29.9-35.2 [facility] Comment on above: Performed By: #### C BC #### [facility] [address] [place] [address] Dr. Blanquita Farris MCV (RBC) [Entitic vol] 85.8 fL Normal 81.0-99.0 [facility] Comment on above: Performed By: #### C BC #### [facility] [address] [place] [address] Dr. Blanquita Farris MONO # 0.4 103/ul Normal 0.3-0.8 [facility] Comment on above: Performed By: #### C BC #### [facility] [address] [place] [address] Dr. Blanquita Farris Monocytes/100 WBC (Bld) 7.2 % Normal 1.7-12.0 [facility] Comment on above: Performed By: #### C BC #### [facility] [address] [place] [address] Dr. Blanquita Farris NEUT # 4.1 103/ul Normal 1.4-6.5 [facility] Comment on above: Performed By: #### C BC #### [facility] [address] [place] [address] Dr. Blanquita Farris Neutrophils/100 WBC (Bld) 70.0 % Normal 43.0-75.0 [facility] Comment on above: Performed By: #### C BC #### [facility] [address] [place] [address] Dr. Blanquita Farris Platelet mean volume (Bld) [Entitic vol] 10.4 fL Normal 9.5-13.5 [facility] Comment on above: Performed By: #### C BC #### [facility] [address] [place] [address] Dr. Blanquita Farris PLT 158 103/ul Normal 150-450 [facility] Comment on above: Performed By: #### C BC #### [facility] [address] [place] [address] Dr. Blanquita Farris RBC 5.06 106/ul Normal 4.20-5.40 [facility] Comment on above: Performed By: #### C BC #### [facility] [address] [place] [address] Dr. Blanquita Farris WBC 5.9 103/ul Normal 4.0-11.0 [facility] Comment on above: Performed By: #### C BC #### [facility] Laboratory [address] [place] [address] Dr. Blanquita Farris FREE THYROXINE INDEX T7on FTI 4.00 Normal 1.30-4.50 [facility] Comment on above: Performed By: #### C BC #### [facility] Laboratory [address] [place] [address] Dr. Blanquita Farris T3U 31.0 % Normal 30.0-39.0 [facility] Comment on above: Performed By: #### C BC #### [facility] Laboratory [address] [address] [address] Blanquita Farris T4 [Mass/Vol] 12.90 ug/dL Normal 4.80-13.90 [facility] Comment on above: Performed By: #### C BC #### [facility] Laboratory [address] [address] [address] Blanquita Farris GLYCOHEMOGLOBIN A1Con 2021 ADA RECOMMENDATION SEE BELOW Normal [facility] Comment on above: Result Comment: ADA RECOMMENDED LIMIT 4.0 - 6.0 ADA THERAPEUTIC TARGET < 7.0 ACTION SUGGESTED > 7.0 Performed By: #### A 1C #### [facility] Laboratory [address] [address] [address] Blanquita Farris Glucose [Mass/Vol] 146 mg/dL Normal [facility] Comment on above: Performed By: #### A 1C #### [facility] Laboratory [address] [address] [address] Blanquita Farris HbA1c (Bld) [Mass fraction] 6.7 % Critically high 4.5-6.2 [facility] Comment on above: Performed By: #### A 1C #### [facility] Laboratory [address] [address] [address] Blanquita Farris IRONon 03-15-2022 Iron [Mass/Vol] 67.0 ug/dL Normal 50.0-170.0 [facility] Comment on above: Performed By: #### I KEON #### [facility] Laboratory [address] [place] [address] Dr. Blanquita Farris LIPID PROFILEon 03-15-2022 CHOL-HDL RATIO NORM SEE BELOW Normal [facility] Comment on above: Result Comment: 3.3 - 4.4 LOW RISK 4.4 - 7.1 AVERAGE RISK 7.1 - 11.0 MODERATE RISK >11.0 HIGH RISK Performed By: #### C BC #### [facility] Laboratory [address] [place] [address] Dr. Blanquita Farris Cholesterol [Mass/Vol] 137 mg/dL Normal <=200 [facility] Comment on above: Performed By: #### C BC #### [facility] Laboratory [address] [address] [address] Blanquita Farris Cholesterol in HDL [Mass/Vol] 52 mg/dL Normal 40-60 [facility] Comment on above: Performed By: #### C BC #### [facility] Laboratory [address] [place], [place] [address] Dr. Blanquita Farris Cholesterol in LDL [Mass/Vol] 62.0 mg/dL Normal [facility] Comment on above: Performed By: #### C BC #### [facility] Laboratory [address] [address] [address] Blanquita Farris Cholesterol.total/C holesterol in HDL [Mass ratio] 2.6 {ratio} Normal [facility] Comment on above: Performed By: #### C BC #### [facility] Laboratory [address] [address] [address] Blanquita Farris HDL NORMAL > or = 60 mg/dl - LO W CARDIOVASCULAR RISK <40 mg/dl - HIGH CARDIOVASCULAR RISK Normal [facility] Comment on above: Performed By: #### C BC #### [facility] Laboratory [address] [address] [address] Blanquita Farris LDL CALC NORMAL SEE BELOW Normal [facility] Comment on above: Result Comment: <100 mg/dl OPTIMAL 100 - 129 mg/dl NEAR OR ABOVE OPTIMAL 130 - 159 mg/dl BORDERLINE HIGH 160 - 189 mg/dl HIGH >190 mg/dl VERY HIGH Performed By: #### C BC #### [facility] Laboratory [address] [address] [address] Blanquita Farris Triglyceride [Mass/Vol] 115 mg/dL Normal <=150 [facility] Comment on above: Performed By: #### C BC #### [facility] Laboratory [address] [address] [address] Blanquita Farris VLDL CALC 23.0 mg/dL Normal [facility] Comment on above: Performed By: #### C BC #### [facility] Laboratory [address] [address] [address] Blanquita Farris PROF 14(COMP METB)on 10-24-2 022 Albumin [Mass/Vol] 4.1 g/dL Normal 3.4-5.0 [facility] Comment on above: Performed By: #### C BC #### [facility] Laboratory [address] [place] [address] Dr. Blanquita Farris Albumin/Globulin [Mass ratio] 1.0 {ratio} Normal [facility] Comment on above: Performed By: #### C BC #### [facility] Laboratory [address] [place] [address] Dr. Blanquita Farris ALP [Catalytic activity/Vol] 94 U/L Normal 46-116 [facility] Comment on above: Performed By: #### C BC #### [facility] Laboratory [address] [place] [address] Dr. Blanquita Farris ALT [Catalytic activity/Vol] 32 U/L Normal 14-59 [facility] Comment on above: Performed By: #### C BC #### [facility] Laboratory [address] [place] [address] Dr. Blanquita Farris Anion gap [Moles/Vol] 8.8 mmol/L Normal [facility] Comment on above: Performed By: #### C BC #### [facility] Laboratory [address] [place] [address] Dr. Blanquita Farris AST [Catalytic activity/Vol] 26 U/L Normal 15-37 [facility] Comment on above: Performed By: #### C BC #### [facility] Laboratory [address] [place] [address] Dr. Blanquita Farris Bilirubin [Mass/Vol] 0.4 mg/dL Normal 0.2-1.0 [facility] Comment on above: Performed By: #### C BC #### [facility] Laboratory [address] [place] [address] Dr. Blanquita Farris Calcium [Mass/Vol] 9.0 mg/dL Normal 8.5-10.1 [facility] Comment on above: Performed By: #### C BC #### [facility] Laboratory [address] [place] [address] Dr. Blanquita Farris Chloride [Moles/Vol] 100 mmol/L Normal 98-107 [facility] Comment on above: Performed By: #### C BC #### [facility] Laboratory [address] [address] [address] Blanquita Farris CO2 [Moles/Vol] 31.6 mmol/L Normal 21.0-32.0 [facility] Comment on above: Performed By: #### C BC #### [facility] Laboratory [address] [address] [address] Blanquita Farris Creatinine [Mass/Vol] 0.87 mg/dL Normal 0.55-1.02 [facility] Comment on above: Performed By: #### C BC #### [facility] Laboratory [address] [address] [address] Blanquita Farris EGFR-AF TANZANIAN >60 Normal >=60 [facility] Comment on above: Performed By: #### C BC #### [facility] Laboratory [address] [place] [address] Dr. Blanquita Farris EGFR-NON AF TANZANIAN >60 Normal >=60 [facility] Comment on above: Performed By: #### C BC #### [facility] Laboratory [address] [place] [address] Dr. Blanquita Farris Globulin (S) [Mass/Vol] 4.0 g/dL Normal [facility] Comment on above: Performed By: #### C BC #### [facility] Laboratory [address] [place] [address] Dr. Blanquita Farris Glucose [Mass/Vol] 192 mg/dL Critically high 74-106 [facility] Comment on above: Performed By: #### C BC #### [facility] Laboratory [address] [place] [address] Dr. Blanquita Farris Potassium [Moles/Vol] 3.4 mmol/L Critically low 3.5-5.1 [facility] Comment on above: Performed By: #### C BC #### [facility] Laboratory [address] [place] [address] Dr. Blanquita Farris Protein [Mass/Vol] 8.1 g/dL Normal 6.4-8.2 [facility] Comment on above: Performed By: #### C BC #### [facility] Laboratory [address] [address] [address] Blanquita Farris Sodium [Moles/Vol] 137 mmol/L Normal 136-145 [facility] Comment on above: Performed By: #### C BC #### [facility] Laboratory [address] [place] [address] Dr. Blanquita Farris Urea nitrogen [Mass/Vol] 9.0 mg/dL Normal 7.0-18.0 [facility] Comment on above: Performed By: #### C BC #### [facility] Laboratory [address] [place] [address] Dr. Blanquita Farris Urea nitrogen/Creatinine [Mass ratio] 10.3 mg/mg Normal [facility] Comment on above: Performed By: #### C BC #### [facility] Laboratory [address] [place] [address] Dr. Blanquita Farris PROTIMEon 03-15-2022 INR Coag (PPP) [Relative time] 1.15 {INR} Normal [facility] Comment on above: Performed By: #### C BC #### [facility] Laboratory [address] [place] [address] Dr. Blanquita Farris INR GUIDELINES SEE BELOW Normal [facility] Comment on above: Result Comment: SOLANGE RED INR: 2.0 - 3.0 CONDITIONS NOT LISTED BELOW 2.5 - 3.5 FOR PROSTHETIC HEART VALVE REPLACEMENT 2.5 - 3.5 RECURRENT THROMBOSIS Performed By: #### C BC #### [facility] Laboratory [address] [place] [address] Dr. Blanquita Farris PT Coag (PPP) [Time] 12.3 s Critically high 9.0-11.6 [facility] Comment on above: Performed By: #### C BC #### [facility] Laboratory [address] [place] [address] Dr. Blanquita Farris TSHon 03-15-2022 TSH 0.342 uIU/mL Critically low 0.358-3.740 [facility] Comment on above: Performed By: #### C BC #### [facility] Laboratory [address] [place] [address] Dr. Blanquita Farris Progress Noteson 02-16-2022 Assistant Teacher Authentication Interface Message Text EMERGENCY TRIAGE, TREAT AND TRANSPORT (ET3) DOCUMENTATION OF TELEHEALTH VISIT Date / Time: 02/16/2022 / 6:00 AM Name: Renetta Barbosa : 1960 SSN: (Not on file) EMS Agency: [facility] [] Verbal consent obtained [] [...] Completed by: Pedro Arechiga MD Normal [facility] SINGLE QUAD RT [facility] SINGLE QUAD RT UPPER EXAMINATION: US [...] by: LEONEL MATA Date: 2021-11-25 17:56 Normal [facility] 05-17-2021 ACETONE Negative Normal NEGATIVE [facility] Comment on above: Performed By: #### A CETON #### [facility] Laboratory [address] [place] [address] Dr. Blanquita Farris CBC W MANUAL DIFFon 05-17-20 21 ATYPICAL LYMPH # Normal [facility] Comment on above: Performed By: #### C BCMAN #### [facility] Laboratory [address] [place] [address] Dr. Blanquita Farris ATYPICAL LYMPH % Normal [facility] Comment on above: Performed By: #### C BCMAN #### [facility] Laboratory [address] [place] [address] Dr. Blanquita Farris BAND # Normal 0.0-0.3 [facility] Comment on above: Performed By: #### C BCDALI #### [facility] Laboratory [address] [place] [address] Dr. Blanquita Farris BAND % Normal 0-5 [facility] Comment on above: Performed By: #### C BRIGETTE #### [facility] Laboratory [address] [place] [address] Dr. Blanquita Farris BASOM # 0.00 103/ul Normal 0.00-0.10 [facility] Comment on above: Performed By: #### C BRIGETTE #### [facility] Laboratory [address] [place] [address] Dr. Blanquita Farris BASOM % 0.0 % Critically low 0.2-2.0 [facility] Comment on above: Performed By: #### C BCDALI #### [facility] Laboratory [address] [place] [address] Dr. Blanquita Farris BLAST # Normal [facility] Comment on above: Performed By: #### C BRIGETTE #### [facility] Laboratory [address] [place] [address] Dr. Blanquita Farris BLAST % Normal [facility] Comment on above: Performed By: #### C BRIGETTE #### [facility] Laboratory [address] [place] [address] Dr. Blanquita Farris CORRECTED WBC Normal 4.0-11.0 [facility] Comment on above: Performed By: #### C BRIGETTE #### [facility] Laboratory [address] [address] [address] Blanquita Farris EOS # 0.00 103/ul Normal 0.00-0.70 [facility] Comment on above: Performed By: #### C BRIGETTE #### [facility] Laboratory [address] [address] [address] Blanquita Farris EOS% 0.0 % Critically low 0.9-7.0 [facility] Comment on above: Performed By: #### C BRIGETTE #### [facility] Laboratory [address] [address] [address] Blanquita Farris HCT 40.7 % Normal 36.0-48.0 [facility] Comment on above: Performed By: #### C BRIGETTE #### [facility] Laboratory [address] [place] [address] Dr. Blanquita Farris HGB 12.9 g/dl Normal 12.0-16.0 [facility] Comment on above: Performed By: #### C BRIGETTE #### [facility] Laboratory [address] [place] [address] Dr. Blanquita Farris LYMPHM # 0.63 103/ul Critically low 1.20-3.80 [facility] Comment on above: Performed By: #### C BRIGETTE #### [facility] Laboratory [address] [address] [address] Blanquita Farris LYMPHM% 18.0 % Critically low 20.5-60.0 [facility] Comment on above: Performed By: #### C BRIGETTE #### [facility] Laboratory [address] [address] [address] Blanquita Farris MCH 28.4 pg Normal 26.7-34.0 [facility] Comment on above: Performed By: #### C BRIGETTE #### [facility] Laboratory [address] [place] [address] Dr. Blanquita Farris MCHC 31.7 g/dl Normal 29.9-35.2 [facility] Comment on above: Performed By: #### C BRIGETTE #### [facility] Laboratory [address] [place] [address] Dr. Blanquita Farris MCV 89.5 fL Normal 81.0-99.0 [facility] Comment on above: Performed By: #### C BCMAN #### [facility] Laboratory [address] [place] [address] Dr. Blanquita Farris METAMYELOCYTE # Normal [facility] Comment on above: Performed By: #### C BCDALI #### [facility] Laboratory [address] [place] [address] Dr. Blanquita Farris METAMYELOCYTE % Normal [facility] Comment on above: Performed By: #### C BCDALI #### [facility] Laboratory [address] [place] [address] Dr. Blanquita Farris MONOM# 0.14 103/ul Critically low 0.30-0.80 [facility] Comment on above: Performed By: #### C BRIGETTE #### [facility] Laboratory [address] [place] [address] Dr. Blanquita Farris MONOM% 4.0 % Normal 1.7-12.0 [facility] Comment on above: Performed By: #### C BRIGETTE #### [facility] Laboratory [address] [place] [address] Dr. Blanquita Farris MPV 12.1 fL Normal 9.5-13.5 [facility] Comment on above: Performed By: #### C BRIGETTE #### [facility] Laboratory [address] [place] [address] Dr. Blanquita Farris MYELOCYTE # Normal [facility] Comment on above: Performed By: #### C BCDALI #### [facility] Laboratory [address] [place] [address] Dr. Blanquita Farris MYELOCYTE % Normal [facility] Comment on above: Performed By: #### C BRIGETTE #### [facility] Laboratory [address] [place] [address] Dr. Blanquita Farris NRBC Normal [facility] Comment on above: Performed By: #### C BRIGETTE #### [facility] Laboratory [address] [place] [address] Dr. Blanquita Farris PLT 121 103/ul Critically low 150-450 [facility] Comment on above: Performed By: #### C BCMAN #### [facility] Laboratory [address] [address] [address] Blanquita Farris RBC 4.55 106/ul Normal 4.20-5.40 [facility] Comment on above: Performed By: #### C BCMAN #### [facility] Laboratory [id number] Blanquita Farris RDW 15.8 % Critically high 11.0-15.0 [facility] Comment on above: Performed By: #### C BCMAN #### [facility] Laboratory [address] [address] [address] Blanquita Farris SEG # 2.73 103/ul Normal 1.40-6.50 [facility] Comment on above: Performed By: #### C BCMAN #### [facility] Laboratory [address] [address] [address] Blanquita Farris SEG % 78.0 % Critically high 43.0-75.0 [facility] Comment on above: Performed By: #### C BCMAN #### [facility] Laboratory [id number] Blanquita Farris WBC 3.5 103/ul Critically low 4.0-11.0 [facility] Comment on above: Performed By: #### C BCMAN #### [facility] Laboratory [address] [address] [address] CSPINE WO CONon [...] KEYSHA NAIDU Date: 2021-05-17 09:10 Normal [facility] ER URINE PROFILEon 1 Bilirubin Ql (U) Negative Normal NEGATIVE [facility] Comment on above: Performed By: #### E RUR #### [facility] Laboratory [address] [place] [address] Dr. Blanquita Farris Clarity (U) CLEAR Normal CLEAR [facility] Comment on above: Performed By: #### E RUR #### [facility] Laboratory [address] [place] [address] Dr. Blanquita Farris Color (U) LT. YELLOW Normal YELLOW [facility] Comment on above: Performed By: #### E RUR #### [facility] Laboratory [address] [place] [address] Dr. Blanquita RUTHERFORD A micrscopic examination will be performed if indicated. Normal [facility] Comment on above: Performed By: #### E RUR #### [facility] Laboratory [address] [address] [address] Blanquita Farris Glucose Ql (U) 100 mg/dl Abnormal NEGATIVE [facility] Comment on above: Performed By: #### E RUR #### [facility] Laboratory [address] [place] [address] Dr. Blanquita Farris Hemoglobin Ql (U) Negative Normal NEGATIVE [facility] Comment on above: Performed By: #### E RUR #### [facility] Laboratory [address] [place] [address] Dr. Blanquita Farris Ketones Ql (U) Negative Normal NEGATIVE [facility] Comment on above: Performed By: #### E RUR #### [facility] Laboratory [address] [place] [address] Dr. Blanquita Farris LEUKOCYTES Negative Normal NEGATIVE [facility] Comment on above: Performed By: #### E RUR #### [facility] Laboratory [address] [place] [address] Dr. Blanquita Farris Nitrite Ql (U) Negative Normal NEGATIVE [facility] Comment on above: Performed By: #### E RUR #### [facility] Laboratory [address] [place] [address] Dr. Blanquita Farris pH (U) 7.0 [pH] Normal 5-9 [facility] Comment on above: Performed By: #### E RUR #### [facility] Laboratory [address] [place] [address] Dr. Blanquita Farris SPEC GRAVITY 1.015 Normal 1.005-<=1.025 [facility] Comment on above: Performed By: #### E RUR #### [facility] Laboratory [address] [place] [address] Dr. Blanquita Farris UA PROTEIN Negative Normal NEGATIVE/ TRACE [facility] Comment on above: Performed By: #### E RUR #### [facility] Laboratory [address] [place] [address] Dr. Blanquita Farris UR MICRO IND NOT INDICATED Normal [facility] Comment on above: Performed By: #### E RUR #### [facility] Laboratory [address] [place] [address] Dr. Blanquita Farris Urobilinogen Qn (U) 0.2 {Chevy'U}/dL Normal 0.2 - 1. 0 [facility] Comment on above: Performed By: #### E RUR #### [facility] Laboratory [address] [place] [address] Dr. Blanquita Farris POINT OF CARE GLUCOSEon 12-2 Glucose [Mass/Vol] 234 mg/dL Critically high 74-106 T [facility] Comment on above: Performed By: #### P OCGLUC #### [facility] Laboratory [address] [place] [address] Dr. Blanquita Farris PROF 14(COMP METB)on 021 Albumin [Mass/Vol] 3.5 g/dL Normal 3.5-5.0 [facility] Comment on above: Performed By: #### C MP #### [facility] Laboratory [address] [place] [address] Dr. Blanquita Farris Albumin/Globulin [Mass ratio] 0.9 {ratio} Normal [facility] Comment on above: Performed By: #### C MP #### [facility] Laboratory [address] [place] [address] Dr. Blanquita Farris ALP [Catalytic activity/Vol] 73 U/L Normal 38-126 [facility] Comment on above: Performed By: #### C MP #### [facility] Laboratory [address] [place] [address] Dr. Blanquita Farris ALT [Catalytic activity/Vol] 39 U/L Normal 9-52 [facility] Comment on above: Performed By: #### C MP #### [facility] Laboratory [address] [place] [address] Dr. Blanquita Farris Anion gap [Moles/Vol] 12.9 mmol/L Normal [facility] Comment on above: Performed By: #### C MP #### [facility] Laboratory [address] [place] [address] Dr. Blanquita Farris AST [Catalytic activity/Vol] 33 U/L Normal 14-36 [facility] Comment on above: Performed By: #### C MP #### [facility] Laboratory [address] [place] [address] Dr. Blanquita Farris Bilirubin [Mass/Vol] 0.3 mg/dL Normal 0.2-1.3 [facility] Comment on above: Performed By: #### C MP #### [facility] Laboratory [address] [place] [address] Dr. Blanquita Farris Calcium [Mass/Vol] 8.9 mg/dL Normal 8.4-10.2 [facility] Comment on above: Performed By: #### C MP #### [facility] Laboratory [address] [place] [address] Dr. Blanquita Farris Chloride [Moles/Vol] 105 mmol/L Normal 98-107 [facility] Comment on above: Performed By: #### C MP #### [facility] Laboratory [address] [address] [address] Blanquita Farris CO2 [Moles/Vol] 28.3 mmol/L Normal 22.0-30.0 [facility] Comment on above: Performed By: #### C MP #### [facility] Laboratory [address] [address] [address] Blanquita Farris Creatinine [Mass/Vol] 0.75 mg/dL Normal 0.52-1.04 [facility] Comment on above: Performed By: #### C MP #### [facility] Laboratory [address] [place] [address] Dr. Blanquita Farris EGFR-AF TANZANIAN >60 Normal >=60 [facility] Comment on above: Performed By: #### C MP #### [facility] Laboratory [address] [place] [address] Dr. Blanquita Farris EGFR-NON AF TANZANIAN >60 Normal >=60 [facility] Comment on above: Performed By: #### C MP #### [facility] Laboratory [address] [address] [address] Blanquita Farris Globulin (S) [Mass/Vol] 3.8 g/dL Normal [facility] Comment on above: Performed By: #### C MP #### [facility] Laboratory [address] [place] [address] Dr. Blanquita Farris Glucose [Mass/Vol] 173 mg/dL Critically high 74-106 [facility] Comment on above: Performed By: #### C MP #### [facility] [address] [address] [address] Blanquita Farris Potassium [Moles/Vol] 3.2 mmol/L Critically low 3.4-5.0 [facility] Comment on above: Performed By: #### C MP #### [facility] [address] [address] [address] Blanquita Farris Protein [Mass/Vol] 7.3 g/dL Normal 6.1-8.2 [facility] Comment on above: Performed By: #### C MP #### [facility] [address] [place], [place] [address] Dr. Blanquita Farris Sodium [Moles/Vol] 143 mmol/L Normal 137-145 [facility] Comment on above: Performed By: #### C MP #### [facility] [address] [place], [place] [address] Dr. Blanquita Farris Urea nitrogen [Mass/Vol] 11.0 mg/dL Normal 7.0-17.0 [facility] Comment on above: Performed By: #### C MP #### [facility] [address] [address] [address] Blanquita Farris Urea nitrogen/Creatinine [Mass ratio] 14.7 mg/mg Normal [facility] Comment on above: Performed By: #### C MP #### [facility] [address] [address] [address] Blanquita Farris DIGITAL MAMMOGRAM SCREENING BILATERALon 11-22-2018 DIGITAL MAMMOGRAM SCREENING BILATERAL [facility] Department of Radiology [address] [place] [id number] ======== Patient Name: RENETTA HERNANDEZ : 1960 Sex: F Age: Race: White Pt. Location: [facility] Patient Status: D Ordered Date: 10/11/2018 3:20:00 PM Completed Date: 11/22/2018 12:09 PM Requesting Provider: DES GLYNN Attending Provider: DES GLYNN Report Copy To: Signs & Symptoms: Z12.31 Encntr screen mammogram for malignant neoplasm of breast I10 History: Serina Previous study [facility] 07/16/17 Comments: , Additional imaging, if necessary?: [...] recommended. Electronically signed by:Summer Cage. Transcribed by: [email or web address], User Resident: Electronically Signed by: SUMMER CAGE @ 11/24/2018 03:21 PM Normal [facility] Comment on above: Order Comment: , Add itional imaging, if necessary?: Y , Additional imaging, if necessary?: Y , , , Ordering Provider - DES GLYNN CNP , *VAGINITIS DNA PROBEon 10-11 *VAGINITIS DNA PROBE Clinical Report: (D) Specimen: GENITAL Collected: 10/11/2018 14:45 Status: Final Last Updated: 10/11/2018 19:16 MARQUITA (Final) Negative JUAN (Final) Negative TRICH (Final) Negative Normal [facility] Comment on above: Performed By: #### 5 6101 #### [facility] [address] [place] [address], [facility] FREE T4on 09-20-2018 Free T4 [Mass/Vol] 0.93 ng/dL Normal 0.71-1.85 [facility] Comment on above: Performed By: #### 3 1522, 41102, 20561, 21596 #### [facility] [address] [place] [address], [facility] HEMOGLOBIN A1Con 09-20-2018 HbA1c (Bld) [Mass fraction] 269 mg/dL High 70-126 [facility] Comment on above: Performed By: #### 4 6447 #### [facility] [address] [address], [facility] HbA1c (Bld) [Mass fraction] 11.0 % High 4.0-6.0 [facility] Comment on above: Performed By: #### 4 6447 #### [facility] [address] [place] [address], [facility] LIPID PROFILEon 09-20-2018 Cholesterol [Mass/Vol] 164 mg/dL Normal 120-200 [facility] Comment on above: Result Comment: CHOL ESTEROL REFERENCE RANGE: 20 YEARS AND OLDER CARDIOVASCULAR RISK Less than 200 mg/dl Low Risk 200 to 239 mg/dl Borderline Risk 240 mg/dl and greater High Risk Performed By: #### 3 1522, 62261, 83696, 34906 #### [facility] [address] [facility]. [address] Cholesterol in HDL [Mass/Vol] 30 mg/dL Normal 23-92 [facility] Comment on above: Result Comment: Slig ht variation in normal range could be due to gender and/or age. HDL CHOLESTEROL REFERENCE RANGE: 20 years and older Cardiovascular Risk > or =60 mg/dL Desirable 40 TO 59 mg/dL Low Risk <40 mg/dL High Risk Performed By: #### 3 1522, 32349, 10888, 63601 #### [facility] [address] [place] [address], [facility] Cholesterol in LDL [Mass/Vol] 91 mg/dL Normal 0-130 [facility] Comment on above: Result Comment: LDL IS A CALCULATION LDL IS ONLY VALID IF THE TRIG IS LESS THAN 400. Performed By: #### 3 1522, 87622, 69070, 50781 #### [facility] [address] [place] [address], [facility] Cholesterol.total/C holesterol in HDL [Mass ratio] 5.5 {ratio} High .0-4.5 [facility] Comment on above: Performed By: #### 3 1522, 94672, 10397, 35848 #### [facility] [address] NON-HDL CHOLESTEROL 134 mg/dL Normal [facility] Comment on above: Performed By: #### 3 1522, 05173, 05721, 93649 #### [facility] [address] [place] [address], [facility] Triglyceride [Mass/Vol] 215 mg/dL High 40-149 [facility] Comment on above: Result Comment: TRIG LYCERIDE REFERENCE RANGE: 20 YEARS AND OLDER CARDIOVASCULAR RISK LESS THAN 150 mg/dl LOW RISK 150 TO 199 mg/dl BORDERLINE RISK 200 mg/dl AND GREATER HIGH RISK Performed By: #### 3 1522, 05272, 17805, 48105 #### [facility] [address] [place] [address], [facility] VLDL CHOL 43 mg/dL High 0-40 [facility] Comment on above: Performed By: #### 3 1522, 31028, 41358, 16141 #### [facility] [address] [place] [address], [place] MICROALBUMIN URINE RANDOMon 09-20-2018 Creatinine [Mass/Vol] 148.0 mg/dL Normal [facility] Comment on above: Result Comment: Ther e are no established reference values for random urine specimens Performed By: #### 3 0067 #### [facility] [address] [place] [address], [place] MICROALBUMIN <1.0 Normal [facility] Comment on above: Performed By: #### 3 0067 #### [facility] [address] [place] [address], [place] MICROALBUMIN/CREATI NINE RATIO 'UNABLE TO CALC Normal 0.0-30.0 [facility] Comment on above: Performed By: #### 3 0067 #### [facility] [address] [place] [address], [place] TSH3on 09-20-2018 TSH 3RD GENERATION 1.53 uIU/mL Normal 0.34-5.60 [facility] Comment on above: Performed By: #### 3 1522, 75369, 39848, 79263 #### [facility] [address] [place] [address], [facility] VITAMIN D 25-HYDROXYon 09-20 VITAMIN D 25-OH 33.8 ng/mL Normal 30.0-80.0 [facility] Comment on above: Result Comment: >80. 0 Toxicity possible Performed By: #### 3 1522, 91668, 32526, 76365 #### [facility] [address] [place] [address], [place] US HEPATIC ECHOGRAMon 2018 US HEPATIC ECHOGRAM [facility] Department of Radiology [address] [place] [address] ======== Patient Name: RENETTA HERNANDEZ : 1960 Sex: F Age: Race: White Pt. Location: [facility] Patient Status: O Ordered Date: [...] signed by:Russell De La Rosa. Transcribed by: [email or web address], User Resident: Electronically Signed by: RUSSELL DE LA ROSA @ 08/22/2018 12:53 PM Normal [facility] Comment on above: Order Comment: , , = ========= , Ordering Provider - ANGELIQUE BENNETT MD , US ABDOMINAL FOR ASCITES JIMENEZ ITEDon 06-28-2018 US ABDOMINAL FOR ASCITES LIMITED [facility] Department of Radiology [address] [place] [id number] ======== Patient Name: RENETTA HERNANDEZ : 1960 Sex: F Age: Race: White Pt. Location: [facility] Patient Status: O Ordered Date: [...] signed by:Russell De La Rosa. Transcribed by: [email or web address], User Resident: LAST FRANCO Electronically Signed by: RUSSELL DE LA ROSA @ 06/28/2018 12:53 PM I personally read this/these film(s) with this resident Normal [facility] Comment on above: Order Comment: , , = ========= , Ordering Provider - ANGELIQUE BENNETT MD , COMP METABOLIC PANELon 06-19 Albumin [Mass/Vol] 4.1 g/dL Normal 3.5-5.7 [facility] Comment on above: Performed By: #### 0 0121 #### [facility] [address] [facility] [place] [address], [facility] ALKALINE PHOSPH 67 IU/L Normal 34-104 [facility] Comment on above: Performed By: #### 0 0121 #### [facility] [address] [place] [address], [place] ALT [Catalytic activity/Vol] 21 U/L Normal 7-52 [facility] Comment on above: Performed By: #### 0 0121 #### [facility] [address] [facility] [place] [address], [place] AST [Catalytic activity/Vol] 22 U/L Normal 13-39 [facility] Comment on above: Performed By: #### 0 0121 #### [facility] [address] [place] [address], [place] Bilirubin [Mass/Vol] 0.5 mg/dL Normal 0.3-1.0 [facility] Comment on above: Performed By: #### 0 0121 #### [facility] [address] [place] [address], [place] Calcium [Mass/Vol] 9.7 mg/dL Normal 8.6-10.3 [facility] Comment on above: Performed By: #### 0 0121 #### [facility] [address] [place] [address], [place] Chloride [Moles/Vol] 103 mmol/L Normal 98-107 [facility] Comment on above: Performed By: #### 0 0121 #### [facility] [address] [place] [address], [place] CO2 [Moles/Vol] 28 mmol/L Normal 21-31 [facility] Comment on above: Performed By: #### 0 0121 #### [facility] [address] [place] [address], [place] Creatinine [Mass/Vol] 0.89 mg/dL Normal 0.60-1.20 [facility] Comment on above: Performed By: #### 0 0121 #### [facility] [address] [place] [address], [place] GFR/1.73 sq M predicted among blacks MDRD (S/P/Bld) [Vol rate/Area] mL/min/{1.73_m2} Normal >60 [facility] Comment on above: Performed By: #### 0 0121 #### [facility] [address] [place] [address], [place] GFR/1.73 sq M predicted among non-blacks MDRD (S/P/Bld) [Vol rate/Area] mL/min/{1.73_m2} Normal >60 [facility] Comment on above: Performed By: #### 0 0121 #### [facility] [address] [place] [address], [place] Glucose [Mass/Vol] 175 mg/dL High 70-100 [facility] Comment on above: Performed By: #### 0 0121 #### [facility] [address] [place] [address], [place] Potassium [Moles/Vol] 3.8 mmol/L Normal 3.5-5.1 [facility] Comment on above: Performed By: #### 0 0121 #### [facility] [address] [place] [address], [facility] Protein [Mass/Vol] 7.5 g/dL Normal 6.0-8.3 [facility] Comment on above: Performed By: #### 0 0121 #### [facility] [address] [place] [address], [facility] Sodium [Moles/Vol] 139 mmol/L Normal 136-145 [facility] Comment on above: Performed By: #### 0 0121 #### [facility] [address] [place] [address], [facility] Urea nitrogen [Mass/Vol] 14 mg/dL Normal 7-25 [facility] Comment on above: Performed By: #### 0 0121 #### [facility] [address] [facility] [address] PROTHROMBIN TIMEon 9 INR Coag (PPP) [Relative time] 1.17 {INR} High 0.91-1.16 [facility] Comment on above: Result Comment: [...] 1995;108:[id number]-[id number]. Performed By: #### 5 6101 #### [facility] [address] [place] [address], [facility] PT Coag (PPP) [Time] 14.9 s High 12.3-14.8 [facility] Comment on above: Result Comment: ALL RESULTS MUST BE INTERPRETED WITH RESPECT TO BLOOD DRAWING ARTIFACT OR DILUTION ERROR OF ANTICOAGULANT AT THE TIME OF SAMPLING. Performed By: #### 5 6101 #### [facility] [address] [place] [address], [facility] Vital Signs Date Time Vital Sign Value Performing Clinician Facility 01-02-2024 11:52-0400 Blood Pressure Location NGACORTNEY PAGERY [facility] 01-02-2024 11:52-0400 Diastolic blood pressure 82 mm[Hg] NGA JUANITO [facility] 01-02-2024 11:52-0400 Heart rate 78 /min NGA JUANITO [facility] 01-02-2024 11:52-0400 Systolic blood pressure 130 mm[Hg] NGA JUANITO [facility] 12-05-2023 11:55-0400 Diastolic blood pressure 54 mm[Hg] NGA JUANITO [facility] 12-05-2023 11:55-0400 Mean blood pressure 77 mm[Hg] NGA JUANITO [facility] 12-05-2023 11:55-0400 Systolic blood pressure 122 mm[Hg] NGA JUANITO [facility] 12-05-2023 11:44-0400 Blood Pressure Location NGA JUANITO [facility] 12-05-2023 11:44-0400 Diastolic blood pressure 107 mm[Hg] NGA JUANITO [facility] 12-05-2023 11:44-0400 Heart rate 95 /min NGA JUANITO [facility] 12-05-2023 11:44-0400 Systolic blood pressure 128 mm[Hg] NGA JUANITO [facility] 11-28-2023 11:43-0400 Blood Pressure Location NGA JUANITO [facility] 11-28-2023 11:43-0400 Diastolic blood pressure 67 mm[Hg] NGA JUANITO [facility] 11-28-2023 11:43-0400 Heart rate 95 /min NGA JUANITO [facility] 11-28-2023 11:43-0400 Systolic blood pressure 148 mm[Hg] NGA JUANITO [facility] 11-21-2023 11:37-0400 Blood Pressure Location NGA JUANITO [facility] 11-21-2023 11:37-0400 Body temperature 97.88 [degF] NGA JUANITO [facility] 11-21-2023 11:37-0400 Diastolic blood pressure 11 mm[Hg] NGA JUANITO [facility] 11-21-2023 11:37-0400 Heart rate 74 /min NGA JUANITO [facility] 11-21-2023 11:37-0400 Respiratory rate 15 /min NGA JUANITO [facility] 11-21-2023 11:37-0400 Systolic blood pressure 131 mm[Hg] NGA JUANITO [facility] 11-14-2023 11:36-0400 Blood Pressure Location NGA JUANITO [facility] 11-14-2023 11:36-0400 Body temperature 97.7 [degF] NGA JUANITO [facility] 11-14-2023 11:36-0400 Diastolic blood pressure 88 mm[Hg] NGA JUANITO [facility] 11-14-2023 11:36-0400 Heart rate 78 /min NGA JUANITO [facility] 11-14-2023 11:36-0400 Systolic blood pressure 150 mm[Hg] NGA JUANITO [facility] 06-23-2023 13:50-0500 Body height 157.5 cm Andre Funes MD Work Phone: [facility] 06-23-2023 13:50-0500 Body temperature 97.59 [degF] Andre Funes MD Work Phone: [facility] 06-23-2023 13:50-0500 Body weight 91.1 kg Andre Funes MD Work Phone: [facility] 06-23-2023 13:50-0500 Diastolic blood pressure 93 mm[Hg] Andre Funes MD Work Phone: [facility] 06-23-2023 13:50-0500 Heart rate 107 /min Andre Funes MD Work Phone: [facility] 06-23-2023 13:50-0500 Respiratory rate 18 /min Andre Funes MD Work Phone: [facility] 06-23-2023 13:50-0500 SaO2% (BldA) [Mass fraction] 94 % Andre Funes MD Work Phone: [facility] 06-23-2023 13:50-0500 Systolic blood pressure 149 mm[Hg] Andre Funes MD Work Phone: [facility] 05-03-2023 10:34-0500 Blood Pressure Location NGAYOVANI WILKINS [facility] 05-03-2023 10:34-0500 Diastolic blood pressure 88 mm[Hg] NGA JUANITO [facility] 05-03-2023 10:34-0500 Heart rate 91 /min NGA JUANITO [facility] 05-03-2023 10:34-0500 Respiratory rate 16 /min NGA JUANITO [facility] 05-03-2023 10:34-0500 Systolic blood pressure 138 mm[Hg] NGA JUANITO [facility] 04-05-2023 14:15-0500 Body height 157.48 cm Rodger Chavez Other [employer] Other 04-05-2023 14:15-0500 Body mass index (BMI) [Ratio] 37.31 kg/m2 Rodger Chavez Other [employer] Other 04-05-2023 14:15-0500 Body weight 92.53 kg Rodger Chavez Other [employer] Other 04-05-2023 14:15-0500 Diastolic blood pressure 82 mm[Hg] Rodger Chavez Other [employer] Other 04-05-2023 14:15-0500 Systolic blood pressure 143 mm[Hg] Rodger Chavez Other [employer] Other 09-28-2022 14:45-0400 Body height 157.48 cm Rodger Chavez Other [employer] Other 09-28-2022 14:45-0400 Body mass index (BMI) [Ratio] 37.86 kg/m2 Rodger Chavez Other [employer] Other 09-28-2022 14:45-0400 Body weight 93.9 kg Rodger Chavez Other [employer] Other 09-28-2022 14:45-0400 Diastolic blood pressure 77 mm[Hg] Rodger Chavez Other [employer] Other 09-28-2022 14:45-0400 SaO2% (BldA) [Mass fraction] 95 % Rodger Chavez Other [employer] Other 09-28-2022 14:45-0400 Systolic blood pressure 156 mm[Hg] Rodger Chavez Other [employer] Other 06-25-2022 13:45-0500 Diastolic blood pressure 82 mm[Hg] Andre Funes MD Work Phone: [facility] 06-25-2022 13:45-0500 Systolic blood pressure 152 mm[Hg] Andre Funes MD Work Phone: [facility] 06-25-2022 13:44-0500 Body height 157.5 cm Andre Funes MD Work Phone: [facility] 06-25-2022 13:44-0500 Body temperature 97.5 [degF] Andre Funes MD Work Phone: [facility] 06-25-2022 13:44-0500 Body weight 95.17 kg Andre Funes MD Work Phone: [facility] 06-25-2022 13:44-0500 Heart rate 88 /min Andre Funes MD Work Phone: [facility] 06-25-2022 13:44-0500 Respiratory rate 16 /min Andre Funes MD Work Phone: [facility] 06-25-2022 13:44-0500 SaO2% (BldA) [Mass fraction] 97 % Andre Funes MD Work Phone: [facility] 06-22-2022 14:30-0500 Body height 157.48 cm Rodger Chavez Other [employer] Other 06-22-2022 14:30-0500 Body mass index (BMI) [Ratio] 37.86 kg/m2 Rodger Chavez Other [employer] Other 06-22-2022 14:30-0500 Body weight 93.9 kg Rodger Chavez Other [employer] Other 01-31-2023 14:30-0500 Diastolic blood pressure 80 mm[Hg] Rodger Chavez Other [employer] Other 06-22-2022 14:30-0500 Systolic blood pressure 130 mm[Hg] Rodger Chavez Other [employer] Other 03-04-2022 15:45-0400 Body height 157.48 cm Rodger Chavez Other [employer] Other 03-04-2022 15:45-0400 Body mass index (BMI) [Ratio] 38.59 kg/m2 Rodger Chavez Other [employer] Other 03-04-2022 15:45-0400 Body weight 95.71 kg Rodger Chavez Other [employer] Other 12-17-2021 13:02-0400 Body height 157.5 cm Andre Funes MD Work Phone: [facility] 12-17-2021 13:02-0400 Body temperature 97.59 [degF] Andre Funes MD Work Phone: [facility] 12-17-2021 13:02-0400 Body weight 97.98 kg Andre Funes MD Work Phone: [facility] 12-17-2021 13:02-0400 Diastolic blood pressure 83 mm[Hg] Andre Funes MD Work Phone: [facility] 12-17-2021 13:02-0400 Heart rate 92 /min Andre Funes MD Work Phone: [facility] 12-17-2021 13:02-0400 Respiratory rate 16 /min Andre Funes MD Work Phone: [facility] 12-17-2021 13:02-0400 SaO2% (BldA) [Mass fraction] 95 % Andre Funes MD Work Phone: [facility] 12-17-2021 13:02-0400 Systolic blood pressure 145 mm[Hg] Andre Funes MD Work Phone: [facility] Encounters Encounter Date Encounter Type Care Provider Facility Start: 01-02-2024 End: 01-02-2024 Patient encounter procedure NGA E JUANITO [facility] Start: 12-05-2023 End: 12-05-2023 ambulatory NGA E JUANITO Facility:[facility] Start: 12-05-2023 End: 12-05-2023 Patient encounter procedure NGA E JUANITO [facility] Start: 11-28-2023 End: 11-28-2023 ambulatory NGA E JUANITO Facility:[facility] Start: 11-28-2023 End: 11-28-2023 Patient encounter procedure NGA E JUANITO [facility] [employer] Start: 11-21-2023 End: 11-21-2023 ambulatory NGA E JUANITO Facility:[facility] Start: 11-21-2023 End: 11-21-2023 Patient encounter procedure NGA E JUANITO [facility] [employer] Start: 11-16-2023 End: 11-16-2023 ambulatory RAJAT AGUILAR Not Available Start: 11-14-2023 End: 11-14-2023 ambulatory NGA E JUANITO Facility:[facility] Start: 11-14-2023 End: 11-14-2023 Patient encounter procedure NGA E JUANITO [facility] Start: 11-10-2023 End: 11-10-2023 ambulatory TAN BAGLEY Not Available Start: 11-08-2023 End: 11-08-2023 ambulatory DENI Peres DIDION Not Available Start: 11-07-2023 End: 11-07-2023 ambulatory NGA Tano WILKINS Facility:[facility] Start: 11-07-2023 End: 11-07-2023 Patient encounter procedure NGA WILKINS [facility] Start: 10-31-2023 End: 10-31-2023 ambulatory NGA WILKINS Facility:[facility] Start: 10-31-2023 End: 10-31-2023 Patient encounter procedure NGA WILKINS [facility] Start: 10-20-2023 End: 10-20-2023 ambulatory DENI Peres DIDION Not Available Start: 10-13-2023 End: 10-13-2023 ambulatory RAJAT JEFF Not Available Start: 09-28-2023 End: 09-28-2023 ambulatory DENI Peres DIDION Not Available Start: 08-02-2023 End: 08-02-2023 ambulatory [facility] Start: 06-23-2023 End: 06-23-2023 ambulatory ANDRE FUNES Facility:[facility] Start: 06-23-2023 End: 06-23-2023 Office outpatient visit 15 minutes Andre Funes MD Work Phone: Hematology/Oncology Comment on above: MENDEZ (nonalcoholic s teatohepatitis) (Primary Dx); 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); Thrombocytopenia due to hypersplenism; Thrombocytopenia (HCC); Diabetic gastroparesis (HCC) (HCC) Start: 06-22-2023 End: 06-22-2023 ambulatory Soheila Hall [employer] Other Start: 06-22-2023 Telephone encounter Soheila Delgado [facility] Start: 06-21-2023 End: 06-21-2023 ambulatory MAHAMED [facility] Start: 06-01-2023 End: 06-01-2023 ambulatory LUL Taye PRINTY Not Available Start: 05-24-2023 End: 05-24-2023 ambulatory LUL Kothari PRINTY Not Available Start: 05-03-2023 End: 05-03-2023 ambulatory NGA WILKINS Facility:[facility] Start: 05-03-2023 End: 05-03-2023 Patient encounter procedure NGA WILKINS [facility] Start: 04-12-2023 End: 04-12-2023 ambulatory Rodger Chavez Other [employer] Other Start: 04-12-2023 Telephone encounter Rodger cabrales [facility] Start: 04-05-2023 End: 04-05-2023 ambulatory Rodger Chavez Other [employer] Other Start: 04-05-2023 Office outpatient vi sit 15 minutes Rodger Chavez [facility] Start: 03-17-2023 ambulatory NGA WILKINS Facility :[facility] Start: 10-19-2022 End: 10-20-2022 ambulatory SHAKIRA HIGGINS Facility:[facility] Start: 10-15-2022 ambulatory SHAKIRA RUTHMER Facility: [facility] Start: 10-06-2022 End: 10-06-2022 ambulatory SHAKIRA RUTHMER Facility:[facility] Start: 09-28-2022 End: 09-28-2022 ambulatory Rodger Chavez Other [employer] Other Start: 09-28-2022 Office outpatient vi sit 15 minutes Rodger Chavez [facility] Start: 06-25-2022 End: 06-25-2022 Office outpatient visit 15 minutes Andre Funes MD Work Phone: Hematology/Oncology Comment on above: Cirrhosis of liver n ot due to alcohol (HCC) (Primary Dx); MENDEZ (nonalcoholic steatohepatitis); Thrombocytopenia due to hypersplenism Start: 06-22-2022 End: 06-22-2022 ambulatory Rodger Chavez Other [employer] Other Start: 06-22-2022 Office outpatient vi sit 15 minutes Rodger Chavez [facility] Gastroenterology Start: 06-10-2022 End: 06-11-2022 ambulatory SHAKIRA HIGGINS Facility:H1 Start: 05-22-2022 End: 05-22-2022 ambulatory SHAKIRA HIGGINS Facility:[facility]1 Start: 04-01-2022 End: 04-01-2022 ambulatory Rodger Chavez Other [employer] Other Start: 04-01-2022 Telephone encounter Rodger cabrales [facility] Gastroenterology Start: 03-16-2022 End: 03-16-2022 ambulatory SHAKIRA HIGGINS Facility:H1 Start: 03-15-2022 End: 03-16-[address] DOCTOR RAMOS Facility:[facility]1 Start: 03-04-2022 End: 03-04-2022 ambulatory Rodger Chavez Other [employer] Other Start: 03-04-2022 Office outpatient ne w 45 minutes Rodger Chavez [facility] Gastroenterology Start: 02-16-2022 End: 03-01-2022 ambulatory UNKNOWN PROVIDER Facility:[facility] Start: 12-17-2021 End: 12-17-2021 ambulatory Andre Funes MD Work Phone: Hematology/Oncology Comment on above: Thrombocytopenia due to hypersplenism (Primary Dx); 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); MENDEZ (nonalcoholic steatohepatitis) Start: 12-17-2021 End: 12-17-2021 Patient encounter procedure Andre Funes MD Work Phone: [facility] Start: 11-25-2021 End: 11-26-2021 ambulatory SHAKIRA HIGGINS Facility:H1 Start: 05-17-2021 End: 05-17-[address] JENNIFER TURNER Facility:[facility]1 Start: 08-05-2020 End: 08-05-2020 Patient encounter procedure External Provider [facility] Start: 08-05-2020 Results Only External Provider Exter nal-NonCCF Procedures Date Procedure Procedure Detail Performing Clinician Start: 12-10-2020 Adult depression screening assessment Andre Funes MD Work Phone: Start: 09-24-2020 Esophagogastroduodenoscopy NGA Gao Comment on above: with Right Hemorrhoidectomy Start: 08-05-2020 EXTERNAL LAB External Provider Start: 04-09-2020 Colonoscopy NGA WILKINS Bilateral tubal ligation SAMMY WILKINS Bilateral tubal ligation SAMMY PAGERY Bile duct stone removal MILTON PAGERY Bile duct stone removal MILTON WESTKEN PAGERY section NGA MONTOYA Laparoscopic cholecystectomy NGA WILKINS Tonsillectomy and adenoidectomy NGA WILKINS Plan of Treatment Date Care Activity Detail Author Start: 06-25-2025 DIABETES SCREEN DIABETES SCREEN [facility] Start: 12-17-2024 DIABETES SCREEN DIABETES SCREEN [facility] Start: 06-23-2024 End: 09-22-2024 [id number] [Mass/volume] in Serum or Plasma ALPHA FETOPROTEIN BL Lab Routine EMNDEZ (nonalcoholic steatohepatitis) 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 Expected: 06/23/2024 (Approximate), Expires: 09/22/2024 [facility] Work Phone: Comment on above: Expected: 06/23/2024 (Approximate), Expires: 09/22/2024 Start: 06-23-2024 End: 06-23-2024 CBC W Auto Differential panel - Blood CBC + DIFF Lab Routine MENDEZ (nonalcoholic steatohepatitis) 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 Expected: 06/23/2024 (Approximate), Expires: 06/23/2024 [facility] Work Phone: Comment on above: Expected: 06/23/2024 (Approximate), Expires: 06/23/2024 Start: 06-23-2024 End: 06-23-2024 Cobalamin (Vitamin B12) [Mass/volume] in Serum or Plasma VITAMIN B12 BLOOD Lab Routine MENDEZ (nonalcoholic steatohepatitis) 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 Expected: 06/23/2024 (Approximate), Expires: 06/23/2024 [facility] Work Phone: Comment on above: Expected: 06/23/2024 (Approximate), Expires: 06/23/2024 Start: 06-23-2024 End: 06-23-2024 Comprehensive metabolic 2000 panel - Serum or Plasma COMP METABOLIC PANEL Lab Routine MENDEZ (nonalcoholic steatohepatitis) 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 Expected: 06/23/2024 (Approximate), Expires: 06/23/2024 [facility] Work Phone: Comment on above: Expected: 06/23/2024 (Approximate), Expires: 06/23/2024 Start: 06-23-2024 End: 06-23-2024 Ferritin [Mass/volume] in Serum or Plasma FERRITIN BLD Lab Routine MENDEZ (nonalcoholic steatohepatitis) 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 Expected: 06/23/2024 (Approximate), Expires: 06/23/2024 [facility] Work Phone: Comment on above: Expected: 06/23/2024 (Approximate), Expires: 06/23/2024 Start: 06-23-2024 End: 06-23-2024 Folate [Mass/volume] in Serum or Plasma FOLATE SERUM Lab Routine MENDEZ (nonalcoholic steatohepatitis) 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 Expected: 06/23/2024 (Approximate), Expires: 06/23/2024 [facility] Work Phone: Comment on above: Expected: 06/23/2024 (Approximate), Expires: 06/23/2024 Start: 06-23-2024 End: 06-23-2024 Iron and Iron binding capacity panel - Serum or Plasma IRON + TIBC Lab Routine MENDEZ (nonalcoholic steatohepatitis) 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 Expected: 06/23/2024 (Approximate), Expires: 06/23/2024 [facility] Work Phone: Comment on above: Expected: 06/23/2024 (Approximate), Expires: 06/23/2024 Start: 01-02-2024 ambulatory Ambulatory Facility:[facility] Start: 12-19-2023 ambulatory [facility] Start: 06-25-2023 End: 06-25-2023 CBC W Auto Differential panel - Blood CBC + DIFF Lab Routine 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 Expected: 06/25/2023 (Approximate), Expires: 06/25/2023 [facility] Work Phone: Comment on above: Expected: 06/25/2023 (Approximate), Expires: 06/25/2023 Start: 06-25-2023 End: 06-25-2023 Cobalamin (Vitamin B12) [Mass/volume] in Serum or Plasma VITAMIN B12 BLOOD Lab Routine 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 Expected: 06/25/2023 (Approximate), Expires: 06/25/2023 [facility] Work Phone: Comment on above: Expected: 06/25/2023 (Approximate), Expires: 06/25/2023 Start: 06-25-2023 End: 06-25-2023 Comprehensive metabolic 2000 panel - Serum or Plasma COMP METABOLIC PANEL Lab Routine 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 Expected: 06/25/2023 (Approximate), Expires: 06/25/2023 [facility] Work Phone: Comment on above: Expected: 06/25/2023 (Approximate), Expires: 06/25/2023 Start: 06-25-2023 End: 07-25-2023 Dup-scan artl patrick abdl/pel/scrot&/rpr orgn com US DOPPLER COMPLETE Radiology Routine 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 Expected: 06/25/2023 (Approximate), Expires: 07/25/2023 [facility] Work Phone: Comment on above: Expected: 06/25/2023 (Approximate), Expires: 07/25/2023 Start: 06-25-2023 End: 06-25-2023 Ferritin [Mass/volume] in Serum or Plasma FERRITIN BLD Lab Routine 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 Expected: 06/25/2023 (Approximate), Expires: 06/25/2023 [facility] Work Phone: Comment on above: Expected: 06/25/2023 (Approximate), Expires: 06/25/2023 Start: 06-25-2023 End: 06-25-2023 Folate [Mass/volume] in Serum or Plasma FOLATE SERUM Lab Routine 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 Expected: 06/25/2023 (Approximate), Expires: 06/25/2023 [facility] Work Phone: Comment on above: Expected: 06/25/2023 (Approximate), Expires: 06/25/2023 Start: 06-25-2023 End: 06-25-2023 Iron and Iron binding capacity panel - Serum or Plasma IRON + TIBC Lab Routine 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 Expected: 06/25/2023 (Approximate), Expires: 06/25/2023 [facility] Work Phone: Comment on above: Expected: 06/25/2023 (Approximate), Expires: 06/25/2023 Start: 06-25-2023 End: 07-25-2023 US ABD LIVER VASCULAR US ABD LIVER VASCULAR Radiology Routine 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 Expected: 06/25/2023 (Approximate), Expires: 07/25/2023 [facility] Work Phone: Comment on above: Expected: 06/25/2023 (Approximate), Expires: 07/25/2023 Start: 05-23-2023 Depression Assessment Depression Ass essment [facility] Start: 06-19-2022 End: 08-19-2022 [id number] [Mass/volume] in Serum or Plasma ALPHA FETOPROTEIN BL Lab Routine 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) MENDEZ (nonalcoholic steatohepatitis) Expected: 06/19/2022 (Approximate), Expires: 08/19/2022 [facility] Work Phone: Comment on above: Expected: 06/19/2022 (Approximate), Expires: 08/19/2022 Start: 06-19-2022 End: 12-17-2022 CBC W Auto Differential panel - Blood CBC + DIFF Lab Routine 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) MENDEZ (nonalcoholic steatohepatitis) Expected: 06/19/2022 (Approximate), Expires: 12/17/2022 [facility] Work Phone: Comment on above: Expected: 06/19/2022 (Approximate), Expires: 12/17/2022 Start: 06-19-2022 End: 12-17-2022 Cobalamin (Vitamin B12) [Mass/volume] in Serum or Plasma VITAMIN B12 BLOOD Lab Routine 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) MENDEZ (nonalcoholic steatohepatitis) Expected: 06/19/2022 (Approximate), Expires: 12/17/2022 [facility] Work Phone: Comment on above: Expected: 06/19/2022 (Approximate), Expires: 12/17/2022 Start: 06-19-2022 End: 12-17-2022 Comprehensive metabolic 2000 panel - Serum or Plasma COMP METABOLIC PANEL Lab Routine 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) MENDEZ (nonalcoholic steatohepatitis) Expected: 06/19/2022 (Approximate), Expires: 12/17/2022 [facility] Work Phone: Comment on above: Expected: 06/19/2022 (Approximate), Expires: 12/17/2022 Start: 06-19-2022 End: 12-17-2022 Ferritin [Mass/volume] in Serum or Plasma FERRITIN BLD Lab Routine 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) MENDEZ (nonalcoholic steatohepatitis) Expected: 06/19/2022 (Approximate), Expires: 12/17/2022 [facility] Work Phone: Comment on above: Expected: 06/19/2022 (Approximate), Expires: 12/17/2022 Start: 06-19-2022 End: 12-17-2022 Folate [Mass/volume] in Serum or Plasma FOLATE SERUM Lab Routine 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) MENDEZ (nonalcoholic steatohepatitis) Expected: 06/19/2022 (Approximate), Expires: 12/17/2022 [facility] Work Phone: Comment on above: Expected: 06/19/2022 (Approximate), Expires: 12/17/2022 Start: 06-19-2022 End: 12-17-2022 Iron and Iron binding capacity panel - Serum or Plasma IRON + TIBC Lab Routine 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) MENDEZ (nonalcoholic steatohepatitis) Expected: 06/19/2022 (Approximate), Expires: 12/17/2022 [facility] Work Phone: Comment on above: Expected: 06/19/2022 (Approximate), Expires: 12/17/2022 Start: 06-19-2022 End: 01-16-2023 Us abdominal real time w/image limited US ABD RT UPPER QUADRANT Radiology Routine 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) MENDEZ (nonalcoholic steatohepatitis) Expected: 06/19/2022 (Approximate), Expires: 01/16/2023 [facility] Work Phone: Comment on above: Expected: 06/19/2022 (Approximate), Expires: 01/16/2023 Start: 05-23-2022 DEPRESSION ASSESSMENT DEPRESSION ASS ESSMENT [facility] Start: 01-21-2022 Influenza vaccination INFLUENZA (#1) [facility] Start: 12-10-2021 Adult depression screening assessment DEPRESSION SCREENING [facility] Start: 09-29-2021 COVID-19 VACCINE (4 - Booster for Pfizer series) COVID-19 VACCINE (4 - Booster for Pfizer series) [facility] Start: 01-22-2020 Influenza vaccination INFLUENZA (#1) [facility] Start: 2020 RSV Vaccine (1 - 1-d ose 60+ series) RSV Vaccine (1 - 1-dose 60+ series) [facility] Start: 11-07-2017 HEPATITIS B (2 of 3 - Risk 3-dose series) HEPATITIS B (2 of 3 - Risk 3-dose series) [facility] Start: 11-07-2017 Hepatitis B Vaccine (2 of 3 - Risk 3-dose series) Hepatitis B Vaccine (2 of 3 - Risk 3-dose series) [facility] Start: 01-19-2010 Screening for malign ant neoplasm of colon [facility] Start: 01-19-2010 SHINGRIX VACCINE (1 of 2) SHINGRIX VACCINE (1 of 2) [facility] Start: 01-06-2010 PNEUMOCOCCAL (2 - PCV) PNEUMOCOCCAL (2 - PCV) [facility] Start: 01-06-2010 Pneumococcal vaccination Pneumococcal Vaccine (2 of 2 - PCV) [facility] Start: 01-19-2005 COLOGUARD (FIT-DNA) COLOGUARD (FIT-D NA) [facility] Start: 01-19-2005 Colonoscopy COLONOSCOPY [facility] Start: 01-19-2005 COLORECTAL CANCER SCREENING COLORECTAL CANCER SCREENING [facility] Start: 01-19-[address] COLONOGRAPHY [facility] Start: 01-19-2005 DIABETES SCREEN DIABETES SCREEN [facility] Start: 01-19-2005 FECAL OCCULT BLOOD FECAL OCCULT BLOO D [facility] Start: 01-19-2005 LIPID SCREEN LIPID SCREEN [facility] Start: 01-19-2005 Screening for malign ant neoplasm of colon [facility] Start: 01-19-2005 SIGMOIDOSCOPY SIGMOIDOSCOPY [facility] Start: 2000 Mammography MAMMOGRAM [facility] Start: 2000 Screening for malign ant neoplasm of breast Mammogram Screening [facility] Start: 01-19-1990 HPV TESTING HPV TESTING [facility] Start: 01-19-1990 Screening for malign ant neoplasm of cervix HPV Testing [facility] Start: 01-19-1981 PAP TESTING PAP TESTING [facility] Start: 01-19-1981 Screening for malign ant neoplasm of cervix Pap Testing [facility] Start: 01-19-1979 Hepatitis A Vaccine (1 of 2 - Risk 2-dose series) Hepatitis A Vaccine (1 of 2 - Risk 2-dose series) [facility] Start: 01-19-1979 Urine microalbumin profile [facility] Start: 01-19-1978 Annual PCP Team [employer] paul Disease Visit Annual PCP Team Chronic Disease Visit [facility] Start: 01-19-1978 Hepatitis B surface antibody level LDL Cholesterol [facility] Start: 01-19-1978 HEPATITIS C SCREENING HEPATITIS C [facility] Start: 01-19-1978 Hepatitis C screening Hepatitis C [facility] Start: 01-19-1978 HIV SCREENING HIV SCREENING [facility] Start: 01-19-1978 HIV screening HIV Screening [facility] Start: 1972 Adult depression screening assessment DEPRESSION SCREENING [facility] Start: 01-19-1970 Diabetic foot examination Diabetic Foot Exam [facility] Start: 01-19-1970 Glaucoma screening Dilated Retinal E xam [facility] Start: 01-19-1970 Hepatitis B screening Urine Al bumin:Creatinine Ratio [facility] Start: 01-19-1965 Hemoglobin A1c measurement HbA1C [facility] Start: 01-19-1961 HEPATITIS A (1 of 2 - Risk 2-dose series) HEPATITIS A (1 of 2 - Risk 2-dose series) [facility] End: 07-22-2024 US ABD RIGHT UPPER QUADRANT US ABD RIGHT UPPER QUADRANT Radiology Routine MENDEZ (nonalcoholic steatohepatitis) 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 1 Occurrences starting 06/23/2023 until 07/22/2024 [facility] Work Phone: Comment on above: 1 Occurrences starti ng 06/23/2023 until 07/22/2024 [facility] Immunizations Immunization Date Immunization Notes Care Provider Celeste fagan 03-23-2023 influenza virus vacc ine, unspecified formulation NGA WILKINS [facility] 03-17-2023 influenza virus vacc ine, unspecified formulation NAG WILKINS [facility] 03-24-2022 influenza virus vacc ine, unspecified formulation NGA WILKINS [facility] 03-24-2022 SARS-CoV-2 (COVID-19 ) [id number] NGA WILKINS [facility] 06-01-2021 influenza virus vacc ine, unspecified formulation NGA WILKINS [facility] 06-01-2021 Influenza, injectabl e, Madin Breann Canine Kidney, preservative free, quadrivalent Andre Funes MD Work Phone: [facility] 06-01-2021 SARS-CoV-2 (COVID-19 ) mRNA BNT-162b2 vax NGA WILKINS [facility] 09-09-2020 COVID-19 vaccine, ag e 12+ yr (PFIZER-BIONTECH - PURPLE TOP) Andre Funes MD Work Phone: [facility] Comment on above: Result Comment: most recent given 09/09/20 08-20-2020 COVID-19 vaccine, ag e 12+ yr (PFIZER-BIONTECH - PURPLE TOP) Andre Funes MD Work Phone: [facility] 06-04-2020 zoster vaccine recombinant Andre Funes MD Work Phone: [facility] 03-23-2020 zoster vaccine recombinant Andre Funes MD Work Phone: [facility] 02-14-2020 influenza virus vacc ine, unspecified formulation NGACORTNEY WILKINS [facility] 02-14-2020 Influenza, injectabl e, Madin Breann Canine Kidney, preservative free, quadrivalent Andre Funes MD Work Phone: [facility] 06-05-2019 influenza virus vacc ine, unspecified formulation NGA WILKINS [facility] 06-05-2019 Influenza, injectabl e, Madin Irving Canine Kidney, preservative free, quadrivalent Andre Funes MD Work Phone: [facility] 05-21-2019 influenza virus vacc ine, unspecified formulation Andre Funes MD Work Phone: [facility] 05-21-2019 influenza, unspecifi ed formulation NGA JUANITO [facility] 04-19-2018 influenza virus vacc ine, unspecified formulation NGA WILKINS [facility] 04-19-2018 influenza, injectabl e, quadrivalent, preservative free Andre Funes MD Work Phone: [facility] 10-10-2017 hepatitis B vaccine, pediatric or pediatric/adolescent dosage Andre Funes MD Work Phone: [facility] 10-10-2017 hepatitis B vaccine, unspecified formulation Andre Funes MD Work Phone: [facility] 05-11-2017 hepatitis B vaccine, pediatric or pediatric/adolescent dosage Andre Funes MD Work Phone: [facility] 04-12-2017 hepatitis B vaccine, adult dosage Andre Funes MD Work Phone: [facility] 03-21-2017 influenza virus vacc ine, unspecified formulation NGA WILKINS [facility] 03-21-2017 influenza, injectabl e, quadrivalent, preservative free Andre Funes MD Work Phone: [facility] 04-12-2016 influenza virus vacc ine, unspecified formulation NGA WILKINS [facility] 04-12-2016 influenza, injectabl e, quadrivalent, preservative free Andre Funes MD Work Phone: [facility] 03-23-2014 influenza virus vacc ine, unspecified formulation Andre Funes MD Work Phone: [facility] 03-23-2014 influenza, unspecifi ed formulation NGA WILKINS [facility] 01-06-2009 pneumococcal polysaccharide vaccine, 23 valent Andre Funes MD Work Phone: [facility] Payers Date Payer Category Payer Medicare DEVOTED MEDICARE DEVOTED HEALTH [id number] 2020-Present [phone] [address] [place] [id number] O [id number] 2020 Medicare DEVOTED MEDICARE DEVOTED HEALTH [facility] [id number] 2020-Present [phone] [address] [place] [address] [facility] [id number] 2020 Unknown [id number] 2020 Medicaid [id number] 2020 Medicaid MEDICAID [facility] MEDICAID [id number] 2020-Present [phone] [address] [place] [address] Medicaid [id number] 2020 Medicare MEDICARE MEDICAR E A AND B [id number] 2020-Present [place] Medicare [id number] 1960 Unknown [id number] 2.16.840.1.139669.3.579.2.593 1960 Unknown [id number] 2.16.840.1.558750.3.579.2.732 1960 Unknown [id number] 2.16.840.1.651783.3.579.2.593 1960 Unknown [id number] 2.16.840.1.768723.3.579.2.593 1960 Unknown [id number] 2.16.840.1.036411.3.579.2.593 1960 Unknown [id number] 2.16.840.1.123217.3.579.2.593 1960 Unknown [id number] 2.16.840.1.816601.3.579.2.593 1960 Unknown [id number] 2.16.840.1.473661.3.579.2.593 1960 Unknown [id number] 2.16.840.1.320143.3.579.2.593 1960 Unknown [id number] 2.16.840.1.587453.3.579.2.593 1960 Unknown [id number] 2.16.840.1.019762.3.579.2.593 1960 Unknown [id number] 2.16.840.1.798457.3.579.2.593 1960 Unknown [id number] 2.16.840.1.653775.3.579.2.593 1960 Unknown [id number] 2.16.840.1.244399.3.579.2.1259 1960 Unknown [id number] 2.16.840.1.522718.3.579.2.1259 1960 Unknown [id number] 2.16.840.1.434880.3.579.2.1259 1960 Unknown [id number] 2.16.840.1.079280.3.579.2.1259 1960 Unknown [id number] 2.16.840.1.299859.3.579.2.1259 1960 Unknown [id number] 2.16.840.1.221780.3.579.2.1259 1960 Unknown [id number] 2.16.840.1.626457.3.579.2.1259 1960 Unknown [id number] 2.16.840.1.286397.3.579.2.1259 1960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
== END 2024-01-03 09:49 | disposition home or self-care (01) ==
LOC: CT 09:51
PROVIDERS: PCP Nurse Practitioner Family; Visit Provider Physician Assistant
DX: R09.89 Other specified symptoms and signs involving the circulatory and respiratory systems (principal); R16.0 Hepatomegaly, not elsewhere classified; S92.345A Nondisplaced fracture of fourth metatarsal bone, left foot, initial encounter for closed fracture; S92.355A Nondisplaced fracture of fifth metatarsal bone, left foot, initial encounter for closed fracture
CPT/HCPCS: 73700; 76705; 93923

== ENCOUNTER 2024-01-31 08:00 | Outpatient (REF) | payer OTHER, SELFPAY ==
--- OUTSIDE RECORDS SUMMARY | 2024-02-01 14:39 | XMS_ITS | CCD ---
Author Organization [facility] CliniSyid Care Team Providers Care Flake Miller Helper Name Role Phone Shakira Higgins S Primary Care Provider DR JENNIFER TURNER Consulting Unavailable YUE, DR RODRIGUEZ Attending Unavailable MISC, DR VAZQUEZ Primary Care Unavailable YUE, DR RODRIGUEZ Admitting Unavailable Keysha Naidu Consulting Unavaila marie Higgins CNP, Shakira S Primary Care Provider PROVIDER, UNKNOWN Attending Unavailable PROVIDER, UNKNOWN Admitting Unavailable Rodger Davila Unavailable Ronaldo MOORE, Shakira S Primary Care [...] Care Unavailable MISC, DR VAZQUEZ Attending Unavailable DR Maryam DAVILA Consulting Unavailable MISC, DR VAZQUEZ Admitting Unavailable RONALDO, SHAKIRA Primary Care Unavailable RONALDO, SHAKIRA Consulting Unavailable RONALDO, SHAKIRA Attending Unavailable RONALDO, SHAKIRA Admitting Unavailable RONALDO, SHAKIRA Primary Care Unavailable RONALDO, SHAKIRA Primary Care Unavailable ABHYANKAR, ANDRE Attending Unavailable ABHYANKAR, ANDRE Admitting Unavailable ZIEBDR LEONEL ROGERS Consulting Unavailable ABHYANKAR, ANDRE Consulting Unavailable RONALDO, [...] LOLA, DR Maryam Artis Admitting Unavailable RONALDO, SHAKRIA Primary Care Unavailable HAY ., DR RODRIGUEZ Consulting Unavailable HAY ., DR RODRIGUEZ Attending Unavailable HAY ., DR RODRIGUEZ Admitting Unavailable RONALDO, SHAKIRA S Primary Care Physician ABHYANKAR, ANDRE Referring Unavailable ABHYANKAR, ANDRE Attending Unavailable RONALDO, SHAKIRA S Primary Care Unavailable ABHYANKAR, ANDRE Referring Unavailable RONALDO, SHAKIRA S Primary Care Unavailable Soheila Delgado Unavailable CHAVA QUIROZ Attending Unavailable BARAZIMAHAMED Attending Unavailable JUANITO, NGA Freedman Attending Unavailable JUANITO, NGA Freedman Attending Unavailable JUANITO, NGA Freedman Attending Unavailable JUANITO, NGA Freedman Attending Unavailable JUANITO, NGA Freedman Attending Unavailable JUANITO, NGA Freedman Attending Unavailable JUANITO, NGA Freedman Attending Unavailable RONALDO, SHAKIRA S Referring Unavailable JUANITO, NGA Freedman Attending Unavailable JUANITO, NGA E Attending Unavailable JUANITO, NGA E Attending Unavailable PRINTY, LUL Kothari Attending Unavailable PRINTY, LUL Kothari Attending Unavailable DIDION, DENI Peres Attending Unavailable JEFFRAJAT Attending Unavailable DIDION, DENI Peres Attending Unavailable DIDION, DENI Peres Attending Unavailable TAN BAGLEY Attending Unavailable JEFF, RAJAT Attending Unavailable DIDION, DENI Peres Attending Unavailable DIDION, DENI Peres Attending Unavailable JEFF, RAJAT Attending Unavailable Allergies Allergy Classification Reported Allergen(s) Allergy Type Date of Onset Reaction(s) Facility Capsaicin / Turpentine (1 source) Capsaicin / Turpentine; Translations: [capsaicin topical] Drug Allergy [facility] (4 sources) Capsaicin; Translations: [CAPSAICIN] Drug Allergy 4 [facility] (5 sources) Capsaicin Drug Allergy Unknown [facility] Other (8 sources) Capsaicin / Turpentine; Translations: [capsaicin topical] Drug Allergy [facility] Denise (1 source) traZODone; Translations: [TRAZODONE] Drug Allergy [facility] Repository (1 source) No Known Medication Allergies; Translations: [No Known Medication Allergies] Propensity to adverse reactions (disorder) [facility] Rep[facility] Medications Current Medications Medication [...] colonoscopy, # 4 tab(s), Refills(s) 0, Pharmacy: [facility]/pharmacy #[id number], 157.5, cm, 03/18/20 13:44:00 [...] Start Date: 03/13/20 Status: Ordered CALCIUM ORAL Ymail e by mouth once daily. 0 Active [...] topical powder (7 sources) Polyene Antifungal Nystatin 504095 UNIT/GM 1 application Externally Twice a day Active Nystatin 220169 UNIT/GM 1 application Externally Twice a day [...] Start: 05-27-2020 take 1 tablet by jono th once daily pantoprazole DR (PROTONIX) 40 mg [...] Drug Class(es) Dates Sig (Normalized) Sig (Original) [id number] 200 actuat albuterol 0.09 mg/actuat metered dose [...] take 2 puff(s) by inhalation twice daily RAQUELTRI AEROSPHERE 160-9-4.8 mcg/actuation HFA aerosol inhaler [...] Ordered Start: 03-13-2020 take 1 capsule by [facility] once daily cholecalciferol 2000 intl units oral capsule 2,000 International_Unit = 1 cap(s), Oral, Daily Start Date: 03/13/20 Status: Ordered take 1 tablet by [facility] every twenty-four hours Vitamin D3 25 MCG [...] Comment on above: Take 1,000 mcg by [facility] once daily. Diclofenac (15 sources) Nonsteroidal Anti-inflammatory Drug Start: diclofenac Top 1% gel 2 gm, Topical, QID, Refill(s) 0 Start Date: 03/13/20 Status: Ordered Diclofenac Sodiu m 1 % as directed Externally Active Comment on above: Apply to affected ar ea four times daily. ferrous sulfate 325 mg oral tablet (3 sources) Start: take 1 tablet by mouth twice daily [...] NASE) 50 mcg/actuation nasal spray Use 1 Hedrick in each nostril as needed. 0 Active Comment on above: Use 1 Hedrick in each nostril as needed. FREESTYLE JEANNE 2 SENSOR kit (3 sources) Start: FREESTYLE JEANNE 2 SENSOR kit hydrocortisone 25 mg/ml topical cream (12 sources) Corticosteroid Start: hydrocortisone (ANUSOL-HC) 2.5 % rectal cream APPLY RECTALLY TWICE DAILY FOR 10 DAYS 0 06/03/2020 Active Start: 03-13-2020 take 25 mg rectal ro lumbee twice daily Anusol-HC 25 mg rectal suppository [...] sources) RNA Synthetase Inhibitor Antibacterial Start: 12-10-19 21 mupirocin (BACTROBAN) 2 % ointment ondansetron 4 mg oral tablet (3 sources) Serotonin-3 Receptor Antagonist Start: 10-29-19 take 1 tablet by mouth every six hours as needed ondansetron (ZOFRAN) 4 mg tablet Take 4 mg by mouth every 6 hours as needed. 0 10/28/2020 Active Comment on above: Take 4 mg by mouth e very 6 hours as needed. 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 Discharge Vitals Heart Rate (Peripheral) 78 Blood Pressure 130/82 Height 157 cm Height 62 in Weight 94.5 kg Weight 207.9 lb BMI 38.34 What to do next Scheduled Follow-Up Appointments Tuesday 8:20 AM EDT With: NGA WILKINS PA-C Where: [facility] [address] [place] [address]- You Need to Schedule the Following Appointments Follow Up with NGA WILKINS PA-C, URL When: Within 3 months Where: [address] [place] [address] Medications What How Much When Instructions Unchanged albuterol (Ventolin HFA 90 mcg/ inh Aerosol) 2 Puffs Inhalation 4 times a day as needed for Shortness of breath or wheezing Unchanged armodafinil (armodafinil 250 mg oral tablet) 1 Tablets By Mouth Every day Unchanged atorvastatin (atorvastatin 40 mg Tab) 1 Tablets By Mouth At bedtime Unchanged bisacodyl (Dulcolax 5 mg Tab-EC) 4 Tablets By Mouth Once at 1:00pm the day prior to colonoscopy Unchanged budesonide/ formoterol/ glycopyrrolate (Breztri Aerosphere inhalation aerosol) 2 Puffs 2 times a day Unchanged calcium carbonate (calcium 500 mg tablet) 1 Tablets Chewed Every day Unchanged cevimeline (cevimeline 30 mg oral capsule) 1 Capsules 3 times a day Unchanged cholecalciferol (cholecalciferol 2000 intl units oral capsule) 1 Capsules By Mouth Every day Unchanged cyanocobalamin (Vitamin B12 250 mcg oral tablet) 1 Tablets By Mouth Every day Unchanged cycloSPORINE ophthalmic (Restasis 0.05% Emulsion) 1 Drops Both eyes 2 times a day Unchanged diclofenac topical (diclofenac Top 1% gel) 2 Gram Topical 4 times a day Unchanged dicyclomine (dicyclomine 10 mg Cap) 4 times a day Unchanged dulaglutide (Trulicity Pen 1.5 mg/ 0.5 mL subcutaneous solution) 1.5 Milligram Subcutaneous Every week Unchanged empagliflozin (Jardiance 25 mg oral tablet) Unchanged estradiol topical (estradiol 10 mcg vaginal insert) See instructions Use one twice per week Unchanged furosemide (Lasix 40 mg Tab) 1 Tablets By Mouth Every day Unchanged gabapentin (gabapentin 300 mg Cap) 1 Capsules By Mouth At bedtime Unchanged hydrocortisone topical (Anusol-HC 25 mg rectal suppository) 1 Suppositories By rectum 2 times a day Unchanged insulin regular (Humulin R (Concentrated) 500 units/ mL subcutaneous solution) See instructions Inject 150 units at breakfast, 140 at lunch and 75 at HS Unchanged levothyroxine (levothyroxine 150 mcg (0.15 mg) Tab) 1 Tablets By Mouth Every day Unchanged omeprazole (omeprazole 40 mg Cap-DR) 1 Capsules By Mouth Every day Unchanged pantoprazole (Pantoprazole [address] Tab) 1 Tablets 2 times a day Unchanged pravastatin (pravastatin 40 mg Tab) 1 Tablets Every day Unchanged primidone (primidone 50 mg Tab) 1 Tablets 2 times a day Unchanged tiotropium (Spiriva Respimat 1.25 mcg/ inh inhalation aerosol) 2 Puffs Inhalation Every day Unchanged trazodone (traZODONE 100 mg Tab) 1 Tablets Every day Unchanged venlafaxi (more content not included)... [facility] Urology Office/Clinic Noteon 01-02-2024 Urology Office/Clinic Note Urology Office/Clinic Note Chief Complaint #5 PFPT HPI Staff Pt is here for PFPT #5 have you been consistent with your home exercises this week? yes have you noticed any worsening in your symptoms this week? no have you noticed any improvement in your symptoms this week? no do you have any UTI sx (burning, foul odor, cloudy urine, etc)? no in office UA: NOT suspicious for UTI Current urinary medications: NONE Review of Systems PHQ Score Initial Depression Screen Score: 0 SCORE no fever, chills, malaise, myalgia. no rash/lesions. no chest pain, palpitations, or SOB. no abdominal pain, nausea, vomiting. no unilateral calf swelling, redness, pain Physical Exam Vitals & Measurements HR: 78(Peripheral) BP: 130/82 HT: 62 in HT: 157 cm WT: 94.5 kg WT: 207.9 lb BMI: 38.34 General: nontoxic, NAD Mouth: moist mucosa Lungs: normal respiratory effort Cardio: regular rate, good distal perfusion Abdomen: nondistended, no suprapubic distention or tenderness, no CVA tenderness Neurologic: Grossly normal Skin: No rashes or suspicious lesions Assessment/Plan 1. Mixed incontinence urge and stress (N39.46: Mixed incontinence) ORIGINAL VISIT: BBSQ 22, 'poor' control urgency/frequency/UUI - can't hold longer than 60-90 [...] on Trulicity and insulin, last A1c in Dec 8.3, just had another one drawn yesterday we [...] then we will revisit other tx options. TODAY: PFPT #5 performed today. Good strong contraction but can't hold more than a few seconds. Pt getting a bit frustrated that she hasn't seen much improvement. Most bothersome is incontinence. Pt will continue PFPT at home 4x per day for the next 4-6 weeks. Then return for ov only (not PFPT) to assess where she's at and consider alternative options. Home exercise program prescribed: Contract - slowly increase up to a max of 10Relax - 20 (increased bc she takes a while to return to baseline!) Reps - slowly increase up to a max of 10 Quick Flicks - slowly increase up to a max of 10 Ordered: 45254 EMG anal/urethral sphincter no needle 94578 Biofeedback training, perineal muscles, anorectal 20479 Anorectal Manometry 39872 ELECTRICAL STIMULATION 49109 Urnls Dip Stick Auto w/o Microscopy POC 12342 Follow-up With When Contact Information JUANITO BREWER, NGA Freedman, URL Within 3 months [address] [place] [address] Additional Instructions: Patient Education Overactive Bladder, Adult [...] Cap, 300 mg= 1 cap(s), Oral, Bedtime Humu (more content not included)... [facility] Comment on above: Result Comment: Elec tronically Signed By: NGA WILKINS PA-C\.br\Date and Time Signed: 01/02/24 12:36 EDT Ambulatory Visit Summaryon 0 12-05-2023 Ambulatory Visit [...] NGA WILKINS PA-C Where: [facility] Normal [address] [place] [address]- \.br\ You Need to Schedule the Following Appointments\.br\ Follow Up with NGA WILKINS PA-C, URL When: In 2 weeks\.br\ Where:\.br\ [address]br\ [place] [address]\.br\ \.br\ Medications\.br\ What How Much When Instructions\.br\ [...] provider.\.br\ Document Revised: 09/17/2021 Document Reviewed: 09/17/2021 [employer] Patient Education ? 2022 [employer].br\ \.br\ [facility] Interdisciplinary Note - Soc ial Workeron 12-05-2023 Interdisciplinary Note - [employer] Interdisciplinary Note - [employer] Consult for positive depression screen received. Chart review completed and it was noted that this consult has been received in error as patient's depression screen score was 0. SW will remain available. [facility] Urology Office/Clinic Noteon 12-05-2023 Urology [...] Urnls Dip Stick Auto w/o Microscopy POC 39536 Follow-up With When Contact Information JUANITO BREWER, NGA Freedman, URL In 2 weeks [address] [address] Additional Instructions: Patient Education Kegel [...] 1 cap (more content not included)... [facility] Comment on above: Result Comment: Elec tronically Signed By: NGA WILKINS PA-C\.br\Date and Time Signed: 12/05/23 12:19 EDT Ambulatory [...] NGA WILKINS PA-C Where: [facility] Invalid Interpretation Code [address] [place] [address]- \.br\ Tuesday 11:20 AM EDT \.br\ With: NGA WILKINS PA-C\.br\ Where: [facility] Urology Office/Clinic Noteon 11-28-2023 Urology [...] and discuss other options, try PFPT at [facility] or [facility]. Pt prefers options #1. Follow up 1 week for PFPT #4 or sooner if needed. Pt understands and agrees with plan. Follow-up With When Contact Information JUANITO BREWER, NGA Freedman, URL [address] [place] [address] Additional Instructions: 1 week PFPT #4 Patient Education Kegel Exercises Documentation recorded by the scribtano Batista accurately reflects the services(s) I performed and decisions made by me. Authenticated by Nga Wilkins PA-C on 11/28/2023 12:54:06. I, Lorie Batista, personally scribed for FRANCES Peñaloza on 11/28/2023 [...] Daily Magdaleno (more content not included)... [facility] Comment on above: Result Comment: Elec tronically Signed By: NGA WILKINS PA-C\.br\Date and Time Signed: 11/28/23 12:54 EDT\.br\Electronically Co-Signed [...] NGA WILKINS PA-C Where: [facility] Invalid Interpretation Code [address] [place] [address]- \.br\ Tuesday 11:20 AM EDT \.br\ With: [...] in 1 week(s) for session #3 Ordered: 84856 EMG anal/urethral sphincter no needle 66151 Biofeedback training, perineal muscles, anorectal 60280 Anorectal Manometry 46228 ELECTRICAL STIMULATION 68257 Urnls Dip Stick Auto w/o Microscopy POC 65209 Follow-up With When Contact Information JUANITO BREWER, NGA Freedman, URL In 1 week [address] [place] [address] Additional Instructions: Patient Education Overactive [...] Use:. Cigarett (more content not included)... [facility] Comment on above: Result Comment: Elec tronically Signed By: NGA WILKINS PA-C\.br\Date and Time Signed: 11/21/23 12:27 EDT Consent for Procedure/Surger yon 11-15-2023 Consent for Procedure/Surgery [id number]#1.00 TIFF [facility] EMG Electromyographyon 11-14 EMG Electromyography [id number]#1.00 TIFF [facility] Ambulatory Visit Summaryon 0 11-14-2023 Ambulatory Visit Summary RENETTA BARBOSA :1960 Visit Date:11/14/2023 Ambulatory Visit Instructions Your [...] NGA WILKINS PA-C Where: [facility] Invalid Interpretation Code [address] [place] [address]- \.br\ Tuesday 11:20 AM EDT \.br\ With: NGA WILKINS PA-C\.br\ Where: [facility] Patient Educationon 11-14-19 Patient Education Obstetrics and [...] health care provider. General instructions ? Take zklv-rhm-zfflanp and prescription medicines only as told by [...] monitor yo (more content not included)... [facility] Urology Office/Clinic Noteon 11-14-2023 Urology [...] in 1 week(s) for session #2 Ordered: 06810 EMG anal/urethral sphincter no needle 65471 Biofeedback training, perineal muscles, anorectal 01856 Anorectal Manometry 42578 ELECTRICAL STIMULATION 58808 Urnls Dip Stick Auto w/o Microscopy POC 26702 Urnls Dip Stick Auto w/o Microscopy POC 84548 Follow-up With When Contact Information NGA WILKINS PA-C, YARA In 1 week [address] [place] [address] Additional Instructions: Patient Education Overactive [...] or more (more content not included)... [facility] Comment on above: Result Comment: Elec tronically Signed By: JUANITO BREWER, NGA Freedman\.br\Date and Time Signed: 11/14/23 12:44 EDT Office Visiton 08-02-2023 Follow-up visit [id number] Renetta Barbosa 1960 F Date Provider Department Center 08/02/2023 Hany-CHAVA QUIROZ [facility] Family History Problem Relation Age of Onset Diabetes Mother Lung cancer Father Breast cancer Maternal Grandmother Family Status - Relation Status Age at Mother Father Maternal Grandmother Level of Service:55054 CT OFFICE/OUTPATIENT NEW MODERATE MDM 45 MINUTES Normal [facility] CBC W Auto Differential pane l (Bld)on 06-23-2023 Basophils (Bld) [#/Vol] 0.03 10*3/uL Normal <0.11 [facility] Comment on above: Order Comment: Speci men Type: BLOOD SPECIMEN Ordering Facility: [facility] Address: [address] [place] [address] Performed By: #### 5 7021-8 #### [facility] CLIA [id number] [address] [place] [address] Basophils/100 WBC (Bld) 0.5 % Normal [facility] Comment on above: Order Comment: Speci men Type: BLOOD SPECIMEN Ordering Facility: [facility] Address: [facility] [place] [id number] Performed By: #### 5 7021-8 #### [facility] CLIA [id number] [address] [place] [address] Differential cell count method Nom (Bld) Auto Normal [facility] Comment on above: Order Comment: Speci men Type: BLOOD SPECIMEN Ordering Facility: [facility] Address: [address] [place] [address] Performed By: #### 5 7021-8 #### [facility] CLIA [id number] [address] [place] [address] Eosinophils (Bld) [#/Vol] 0.06 10*3/uL Normal <0.46 [facility] Comment on above: Order Comment: Speci men Type: BLOOD SPECIMEN Ordering Facility: [facility] Address: [address] [place] [address] Performed By: #### 5 7021-8 #### [facility] CLIA [id number] [address] [place] [address]696 Eosinophils/100 WBC (Bld) 1.0 % Normal [facility] Comment on above: Order Comment: Speci men Type: BLOOD SPECIMEN Ordering Facility: [facility] Address: [address] [place] [address] Performed By: #### 5 7021-8 #### [facility] CLIA [id number] [address] [place] [address] Erythrocyte distribution width (RBC) [Ratio] 16.0 % High 11.5-15.0 [facility] Comment on above: Order Comment: Speci men Type: BLOOD SPECIMEN Ordering Facility: [facility] Address: [address] [place], [place] [address] Performed By: #### 5 7021-8 #### [facility] CLIA [id number] [facility] [place] [address] Hematocrit (Bld) [Volume fraction] 43.6 % Normal 36.0-46.0 [facility] Comment on above: Order Comment: Speci men Type: BLOOD SPECIMEN Ordering Facility: [facility] Address: [address] [place] [address] Performed By: #### 5 7021-8 #### [facility] CLIA [id number] [address] [place] [address]5619 Hemoglobin (Bld) [Mass/Vol] 13.7 g/dL Normal 11.5-15.5 [facility] Comment on above: Order Comment: Speci men Type: BLOOD SPECIMEN Ordering Facility: [facility] Address: [address] [place] [address] Performed By: #### 5 7021-8 #### [facility] CLIA [id number] [address] [place] [address] Immature granulocytes (Bld) [#/Vol] 10*3/uL Normal <0.10 [facility] Comment on above: Order Comment: Speci men Type: BLOOD SPECIMEN Ordering Facility: [facility] Address: [address] [place] [address] Performed By: #### 5 7021-8 #### [facility] CLIA [id number] [address] [place] [address]95 Immature granulocytes/100 WBC (Bld) 0.3 % Normal [facility] Comment on above: Order Comment: Speci men Type: BLOOD SPECIMEN Ordering Facility: [facility] Address: [address] [place] [address] Performed By: #### 5 7021-8 #### [facility] CLIA [id number] [address] [place] [address]139 Lymphocytes (Bld) [#/Vol] 1.03 10*3/uL Normal 1.00-4.00 [facility] Comment on above: Order Comment: Speci men Type: BLOOD SPECIMEN Ordering Facility: [facility] Address: [address] [place] [address] [place] [address] Performed By: #### 5 7021-8 #### [facility] CLIA [id number] [address] [place] [address]806 Lymphocytes/100 WBC (Bld) 17.3 % Normal [facility] Comment on above: Order Comment: Speci men Type: BLOOD SPECIMEN Ordering Facility: [facility] Address: [address] [place] [address] Performed By: #### 5 7021-8 #### [facility] CLIA [id number] [address] [place] [address]708 MCH (RBC) [Entitic mass] 26.7 pg Normal 26.0-34.0 [facility] Comment on above: Order Comment: Speci men Type: BLOOD SPECIMEN Ordering Facility: [facility] Address: [address] [place] [address] Performed By: #### 5 7021-8 #### [facility] CLIA [id number] [address] [place] [address]145 MCHC (RBC) [Mass/Vol] 31.4 g/dL Normal 30.5-36.0 [facility] Comment on above: Order Comment: Speci men Type: BLOOD SPECIMEN Ordering Facility: [facility] Address: [address] [place], [place] [address] Performed By: #### 5 7021-8 #### [facility] CLIA [id number] [address] [place] [address]39 MCV (RBC) [Entitic vol] 85.0 fL Normal 80.0-100.0 [facility] Comment on above: Order Comment: Speci men Type: BLOOD SPECIMEN Ordering Facility: [facility] Address: [address] [place] [address] Performed By: #### 5 7021-8 #### [facility] CLIA [id number] [address] [place], [place] [address] Monocytes (Bld) [#/Vol] 0.35 10*3/uL Normal <0.87 [facility] Comment on above: Order Comment: Speci men Type: BLOOD SPECIMEN Ordering Facility: [facility] Address: [address] [place] [address] Performed By: #### 5 7021-8 #### [facility] CLIA [id number] [address] [place] [address] 25719 Monocytes/100 WBC (Bld) 5.9 % Normal [facility] Comment on above: Order Comment: Speci men Type: BLOOD SPECIMEN Ordering Facility: [facility] Address: [address] [id number] Performed By: #### 5 7021-8 #### [facility] CLIA [id number] [address] [place] [address] 03367 Neutrophils (Bld) [#/Vol] 4.46 10*3/uL Normal 1.45-7.50 [facility] Comment on above: Order Comment: Speci men Type: BLOOD SPECIMEN Ordering Facility: [facility] Address: [address] [phone] Performed By: #### 5 7021-8 #### [facility] CLIA [id number] [address] [place] [address] 98931 Neutrophils/100 WBC (Bld) 75.0 % Normal [facility] Comment on above: Order Comment: Speci men Type: BLOOD SPECIMEN Ordering Facility: [facility] Address: [address] [place] [address] Performed By: #### 5 7021-8 #### [facility] CLIA [id number] [address] [place] [address] 59676 Nucleated RBC (Bld) [#/Vol] 10*3/uL Normal <0.01 [facility] Comment on above: Order Comment: Speci men Type: BLOOD SPECIMEN Ordering Facility: [facility] Address: [address] [phone] Performed By: #### 5 7021-8 #### [facility] CLIA [id number] [address] [place] [address] 57429 Nucleated RBC/100 WBC (Bld) [Ratio] 0.0 /100 WBC Normal [facility] Comment on above: Order Comment: Speci men Type: BLOOD SPECIMEN Ordering Facility: [facility] Address: [address] [place] [address] Performed By: #### 5 7021-8 #### [facility] CLIA [id number] [address] [place] [address] Platelet mean volume (Bld) [Entitic vol] 11.9 fL Normal 9.0-12.7 [facility] Comment on above: Order Comment: Speci men Type: BLOOD SPECIMEN Ordering Facility: [facility] Address: [address] [place] [address] Performed By: #### 5 7021-8 #### [facility] CLIA [id number] [address] [place] [address] 23976 Platelets (Bld) [#/Vol] 140 10*3/uL Low 150-400 [facility] Comment on above: Order Comment: Speci men Type: BLOOD SPECIMEN Ordering Facility: [facility] Address: [address] [place] [address] Performed By: #### 5 7021-8 #### [facility] CLIA [id number] [address] [place] [address] 50664 RBC (Bld) [#/Vol] 5.13 10*6/uL Normal 3.90-5.20 [facility] Comment on above: Order Comment: Speci men Type: BLOOD SPECIMEN Ordering Facility: [facility] Address: [address] [place] [address] Performed By: #### 5 7021-8 #### [facility] CLIA [id number] [address] [place] [address] 51581 WBC (Bld) [#/Vol] 5.95 10*3/uL Normal 3.70-11.00 [facility] Comment on above: Order Comment: Speci men Type: BLOOD SPECIMEN Ordering Facility: [facility] Address: [address] [place] [address] Performed By: #### 5 7021-8 #### [facility] CLIA [id number] [address] [place] [address] CNOVSPon 06-23-2023 CNOVSP Visit (SP) Office ([place]) RENETTA BARBOSA ([id number]) 1960 F Date Time Provider Department 06/23/23 2:00 PM ANDRE FUNES During your visit today, we recorded the following information about you: Temperature Pulse Respiration Blood pressure 97.6 degrees 107/minute 18/minute 149/93 Weight Height 91.1 kg 1.575 m Andre Funes MD 06/26/2023 1:35 PM Signed NAME: Renetta Barbosa CLINIC NO.: [id number] DATE OF SERVICE: June 23, 2023 ([place]) [...] HCC screening PLAN: Need US results from [facility] from last week. Recommend alternating follow [...] returns today in follow up. US in [facility] with enlarged nodular liver no masses. [...] medical changes. (more content not included)... Normal [facility] Comprehensive metabolic 2000 panelon 06-23-2023 Albumin [Mass/Vol] 4.5 g/dL Normal 3.9-4.9 [facility] Comment on above: Order Comment: Kevin quintero Type: BLOOD SPECIMEN Ordering Facility: [facility] Address: [address] [place] [address] Performed By: #### 2 4323-8 #### [facility] CLIA [id number] [address] [place] [address] 67195 ALP [Catalytic activity/Vol] 112 U/L Normal 34-123 [facility] Comment on above: Order Comment: Kevin quintero Type: BLOOD SPECIMEN Ordering Facility: [facility] Address: [address] [place] [address] Performed By: #### 2 4323-8 #### [facility] CLIA [id number] [address] [place] [address] 51253 ALT [Catalytic activity/Vol] 29 U/L Normal 7-38 [facility] Comment on above: Order Comment: Speci men Type: BLOOD SPECIMEN Ordering Facility: [facility] Address: [address] [place] [address] Performed By: #### 2 4323-8 #### [facility] CLIA [id number] [address] [place] [address] Anion gap [Moles/Vol] 14 mmol/L Normal 9-18 [facility] Comment on above: Order Comment: Speci men Type: BLOOD SPECIMEN Ordering Facility: [facility] Address: [address] [place] [address] Performed By: #### 2 4323-8 #### [facility] CLIA [id number] [address] [place] [address] 46919 AST [Catalytic activity/Vol] 31 U/L Normal 13-35 [facility] Comment on above: Order Comment: Speci men Type: BLOOD SPECIMEN Ordering Facility: [facility] Address: [address] [place] [address] Performed By: #### 2 4323-8 #### [facility] CLIA [id number] [address] [place] [address] 98283 Bilirubin [Mass/Vol] 0.4 mg/dL Normal 0.2-1.3 [facility] Comment on above: Order Comment: Speci men Type: BLOOD SPECIMEN Ordering Facility: [facility] Address: [address] [place] [address] Performed By: #### 2 4323-8 #### [facility] CLIA [id number] [address] [place] [address] Calcium [Mass/Vol] 9.8 mg/dL Normal 8.5-10.2 [facility] Comment on above: Order Comment: Speci men Type: BLOOD SPECIMEN Ordering Facility: [facility] Address: [address] [place] [address] Performed By: #### 2 4323-8 #### [facility] CLIA [id number] [address] [place] [address] Chloride [Moles/Vol] 100 mmol/L Normal 97-105 [facility] Comment on above: Order Comment: Speci men Type: BLOOD SPECIMEN Ordering Facility: [facility] Address: [address] [place] [address] Performed By: #### 2 4323-8 #### [facility] CLIA [id number] [address] [place] [address] 41220 CO2 [Moles/Vol] 19 mmol/L Low 22-30 [facility] Comment on above: Order Comment: Speci men Type: BLOOD SPECIMEN Ordering Facility: [facility] Address: [address] [place] [address] Performed By: #### 2 4323-8 #### [facility] CLIA [id number] [address] [place] [address] 64262 Creatinine [Mass/Vol] 0.72 mg/dL Normal 0.58-0.96 [facility] Comment on above: Order Comment: Speci men Type: BLOOD SPECIMEN Ordering Facility: [facility] Address: [address] [place] [address] Performed By: #### 2 4323-8 #### [facility] CLIA [id number] [address] [place] [address]7720 Creatinine and Glomerular filtration rate.predicted panel (S/P/Bld) 94 mL/min/1.73m??? Normal >=60 [facility] Comment on above: Order Comment: Speci men Type: BLOOD SPECIMEN Ordering Facility: [facility] Address: [address] [place] [address] Result Comment: Alisha mated Glomerular Filtration Rate [...] GFR. Performed By: #### 2 4323-8 #### [facility] CLIA [id number] [address] [place] [address] Glucose [Mass/Vol] 316 mg/dL High 74-99 [facility] Comment on above: Order Comment: Kevin quintero Type: BLOOD SPECIMEN Ordering Facility: [facility] Address: [address] [place], [place] [address] Result Comment: The [place] [employer] Association (ADA) provides guidance for cutoff [...] Standards of Medical Care in Diabetes 2016, [place] [employer]. Diabetes Care. 2016.39(Suppl 1). Performed By: #### 2 4323-8 #### [facility] CLIA [id number] [address] [place] [address] Potassium [Moles/Vol] 3.9 mmol/L Normal 3.7-5.1 [facility] Comment on above: Order Comment: Kevin quintero Type: BLOOD SPECIMEN Ordering Facility: [facility] Address: [address] [place] [address] Performed By: #### 2 4323-8 #### [facility] CLIA [id number] [address] [place] [address] 37019 Protein [Mass/Vol] 7.6 g/dL Normal 6.3-8.0 [facility] Comment on above: Order Comment: Kevin quintero Type: BLOOD SPECIMEN Ordering Facility: [facility] Address: [address] [place], [place] [address] Performed By: #### 2 4323-8 #### [facility] CLIA [id number] [address] [place] [address] 46828 Sodium [Moles/Vol] 133 mmol/L Low 136-144 [facility] Comment on above: Order Comment: Speci men Type: BLOOD SPECIMEN Ordering Facility: [facility] Address: [address] [place] [address] Performed By: #### 2 4323-8 #### [facility] CLIA [id number] [address] [place] [address] Urea nitrogen [Mass/Vol] 14 mg/dL Normal 7-21 [facility] Comment on above: Order Comment: Speci men Type: BLOOD SPECIMEN Ordering Facility: [facility] Address: [address] [place] [address] Performed By: #### 2 4323-8 #### [facility] CLIA [id number] [address] [place] [address] 10799 Ferritin SerPl-mCncon 2023 Ferritin [Mass/Vol] 20.1 ng/mL Normal 14.7-205.1 [facility] Comment on above: Order Comment: Speci men Type: BLOOD SPECIMEN Ordering Facility: [facility] Address: [address] [place] [address] Performed By: #### 5 0190-8, 9, 2275-08, 2283-12 #### [facility] CLIA [id number] [address] [place] [address] [place] Folate SerPl-mCncon 06-23-19 24 Folate [Mass/Vol] 11.2 ng/mL Normal >4.7 [facility] Comment on above: Order Comment: Speci men Type: BLOOD SPECIMEN Ordering Facility: [facility] Address: [address] [place] [address] Performed By: #### 5 0190-8, 9, 2275-08, 2283-12 #### [facility] CLIA [id number] [address] [place] [address] [place] Iron and Iron binding capaci ty panelon 06-23-2023 Iron [Mass/Vol] 96 ug/dL Normal 41-186 [facility] Comment on above: Order Comment: Speci men Type: BLOOD SPECIMEN Ordering Facility: [facility] Address: [address] [place] [address] Performed By: #### 5 0190-8, 9, 4, 2283-12 #### [facility] CLIA [id number] [address] [place] [address] [place] Iron binding capacity [Mass/Vol] 434 ug/dL High 232-386 [facility] Comment on above: Order Comment: Speci men Type: BLOOD SPECIMEN Ordering Facility: [facility] Address: [address] [place] [address] Performed By: #### 5 0190-8, 9, 2275-08, 2283-12 #### [facility] CLIA [id number] [address] [place] [address] [place] Iron/TIBC [Molar ratio] 22.1 % Normal 15.0-57.0 [facility] Comment on above: Order Comment: Speci men Type: BLOOD SPECIMEN Ordering Facility: [facility] Address: [address] [place] [address] Performed By: #### 5 0190-8, 9, 2275-08, 2283-12 #### [facility] CLIA [id number] [address] [place] [address] [place] Vit B12 [facility] Cobalamin (Vitamin B12) [Mass/Vol] 586 pg/mL Normal 232-1245 [facility] Comment on above: Order Comment: Speci men Type: BLOOD SPECIMEN Ordering Facility: [facility] Address: [address] [place] [address] Performed By: #### 5 0190-8, 9, 2275-08, 2283-12 #### [facility] CLIA [id number] [address] [place] [address] [place] Office Visiton 06-21-2023 Follow-up visit [id number] Jose ManuelRenetta smith Gabriela 1960 F Date Provider Department Center 06/21/2023 Jose6-MA[place]ED [place] Denise Goncalves Family History Problem Relation Age of Onset Diabetes Mother Lung cancer Father Breast cancer Maternal Grandmother Family Status - Relation Status Age at Mother Father Maternal Grandmother Level of Service:67118 CT OFFICE/OUTPATIENT NEW MODERATE MDM 45 MINUTES Normal [facility] Lab Reportson 05-04-2023 Lab Reports [id number] 20 [id number] 0TIFF Normal [facility] Physician Referralon 023 Physician Referral [id number]#[id number] 0TIFF Normal [facility] Screenson 05-04-2023 Screens [id number] 20 [id number] 0TIFF Normal [facility] Patient Educationon 05-03-20 23 Patient [...] health care provider. General instructions ? Take uuxa-pbv-tlkjdrq and prescription medicines only as told by [...] monitor yo (more content not included)... Normal [facility] CT LUNG CANCER SCREENINGon 0 [...] LEONEL MATA Date: 2022-10-20 08:[address] [facility] CBC AUTO DIFFon 10-19-2022 BASO # 0.0 103/ul Normal 0.0-0.1 [facility] Comment on above: Performed By: #### C BC #### [facility] [address] [address] [address] Blanquita Farris Basophils/100 WBC (Bld) 0.4 % Normal 0.2-2.[address] [facility] Comment on above: Performed By: #### C BC #### [facility] [address] [place] [address] Dr. Blanquita Farris EO # 0.1 103/ul Normal 0.0-0.7 [facility] Comment on above: Performed By: #### C BC #### [facility] [address] [place] [address] Dr. Blanquita Farris Eosinophils/100 WBC (Bld) 1.5 % Normal 0.9-7.0 [facility] Comment on above: Performed By: #### C BC #### [facility] [address] [place] [address] Dr. Blanquita Farris Erythrocyte distribution width (RBC) [Ratio] 15.3 % Critically high 11.0-15.0 [facility] Comment on above: Performed By: #### C BC #### [facility] [address] [place] [address] Dr. Blanquita Farris Hematocrit (Bld) [Volume fraction] 42.7 % Normal 36.0-48.0 [facility] Comment on above: Performed By: #### C BC #### [facility] [address] [place] [address] Dr. Blanquita Farris Hemoglobin (Bld) [Mass/Vol] 13.8 g/dL Normal 12.0-16.0 [facility] Comment on above: Performed By: #### C BC #### [facility] [address] [place] [address] Dr. Blanquita Farris IG # 0.04 10e3/ul Critically high 0.00-0.03 [facility] Comment on above: Performed By: #### C BC #### [facility] [address] [place] [address] Dr. Blanquita Farris IG % 0.6 % Critically high 0.0-0.5 [facility] Comment on above: Performed By: #### C BC #### [facility] [address] [place] [address] Dr. Blanquita Farris LYMPH # 1.2 103/ul Normal 1.2-3.8 [facility] Comment on above: Performed By: #### C BC #### [facility] [address] [place] [address] Dr. Blanquita Farris Lymphocytes/100 WBC (Bld) 18.0 % Critically low 20.5-60.0 [facility] Comment on above: Performed By: #### C BC #### [facility] [address] [place] [address] Dr. Blanquita Farris MANUAL DIFF REQ NO Normal [facility] Comment on above: Performed By: #### C BC #### [facility] [address] [place] [address] Dr. Blanquita Farris MCH (RBC) [Entitic mass] 26.8 pg Normal 26.7-34.0 [facility] Comment on above: Performed By: #### C BC #### [facility] [address] [place] [address] Dr. Blanquita Farris MCHC (RBC) [Mass/Vol] 32.3 g/dL Normal 29.9-35.[address] [facility] Comment on above: Performed By: #### C BC #### [facility] [address] [place] [address] Dr. Blanquita Farris MCV (RBC) [Entitic vol] 83.1 fL Normal 81.0-99.0 [facility] Comment on above: Performed By: #### C BC #### [facility] [address] [place] [address] Dr. Blanquita Farris MONO # 0.4 103/ul Normal 0.3-0.8 [facility] Comment on above: Performed By: #### C BC #### [facility] [address] [place] [address] Dr. Blanquita Farris Monocytes/100 WBC (Bld) 5.4 % Normal 1.7-12.0 [facility] Comment on above: Performed By: #### C BC #### [facility] [address] [place] [address] Dr. Blanquita Farris NEUT # 5.0 103/ul Normal 1.4-6.5 [facility] Comment on above: Performed By: #### C BC #### [facility] [address] [place] [address] Dr. Blanquita Farris Neutrophils/100 WBC (Bld) 74.1 % Normal 43.0-75.0 [facility] Comment on above: Performed By: #### C BC #### [facility] [address] [place] [address] Dr. Blanquita Farris Platelet mean volume (Bld) [Entitic vol] 10.2 fL Normal 9.5-13.5 [facility] Comment on above: Performed By: #### C BC #### [facility] [address] [place] [address] Dr. Blanquita Farris PLT 180 103/ul Normal 150-[address] [facility] Comment on above: Performed By: #### C BC #### [facility] [address] [place] [address] Dr. Blanquita Farris RBC 5.14 106/ul Normal 4.20-5.[address] [facility] Comment on above: Performed By: #### C BC #### [facility] [address] [place] [address] Dr. Blanquita Farris WBC 6.8 103/ul Normal 4.0-11.[address] [facility] Comment on above: Performed By: #### C BC #### [facility] [address] [place] [address] Dr. Blanquita Farris CPKon 10-19-2022 CK [Catalytic activity/Vol] 68 U/L Normal 26-192 [facility] Comment on above: Performed By: #### C MP, CK, TSH #### [facility] [address] [address] [address] Blanquita Farris MG MAMM SCREEN 3D [place]ANT[place]O CADon 10-19-2022 MG MAMM SCREEN 3D [place] CAD Patient: RENETTA BABROSA Exam Date: 10/19/2022 : 1960 Gender:F Ordering : SHAKIRA HIGGINS [facility] Admission #: [id number] Family : DR LUL DUTTON Order #: [id number] CLICK HERE TO VIEW EXAM RADIOLOGY REPORT [...] breast cancer at age 80. LOCATION: [facility] BREAST COMPOSITION: Scattered areas fibroglandular density. [...] Pacheco MD on 10/19/2022 at 13:50 Normal [facility] PROF 14(COMP METB)on 023 Albumin [Mass/Vol] 3.7 g/dL Normal 3.4-5.0 [facility] Comment on above: Performed By: #### C MP, CK, TSH #### [facility] [address] [place], [place] [address] Dr. Blanquita Farris Albumin/Globulin [Mass ratio] 0.8 {ratio} Normal [facility] Comment on above: Performed By: #### C MP, CK, TSH #### [facility] [address] [address] [address] Blanquita Farris ALP [Catalytic activity/Vol] 120 U/L Critically high 46-116 [facility] Comment on above: Performed By: #### C MP, CK, TSH #### [facility] [address] [place] [address] Dr. Blanquita Farris ALT [Catalytic activity/Vol] 31 U/L Normal 14-59 [facility] Comment on above: Performed By: #### C MP, CK, TSH #### [facility] [address] [place] [address] Dr. Blanquita Farris Anion gap [Moles/Vol] 14.2 mmol/L Normal [facility] Comment on above: Performed By: #### C MP, CK, TSH #### [facility] [address] [place] [address] Dr. Blanquita Farris AST [Catalytic activity/Vol] 19 U/L Normal 15-37 [facility] Comment on above: Performed By: #### C MP, CK, TSH #### [facility] [address] [place] [address] Dr. Blanquita Farris Bilirubin [Mass/Vol] 0.3 mg/dL Normal 0.2-1.[address] [facility] Comment on above: Performed By: #### C MP, CK, TSH #### [facility] [address] [place] [address] Dr. Blanquita Farris Calcium [Mass/Vol] 9.4 mg/dL Normal 8.5-10.1 [facility] Comment on above: Performed By: #### C MP, CK, TSH #### [facility] [address] [place] [address] Dr. Blanquita Farris Chloride [Moles/Vol] 101 mmol/L Normal 98-[address] [facility] Comment on above: Performed By: #### C MP, CK, TSH #### [facility] [address] [place] [address] Dr. Blanquita Farris CO2 [Moles/Vol] 28.4 mmol/L Normal 21.0-32.0 [facility] Comment on above: Performed By: #### C MP, CK, TSH #### [facility] [address] [address] [address] Blanquita Farris Creatinine [Mass/Vol] 1.04 mg/dL Critically high 0.55-1.02 [facility] Comment on above: Performed By: #### C MP, CK, TSH #### [facility] [address] [address] [address] Blanquita Farris EGFR-AF COMORAN >60 Normal >=60 [facility] Comment on above: Performed By: #### C MP, CK, TSH #### [facility] [address] [address] [address] Blanquita Farris EGFR-NON AF COMORAN 54 mL/min/1.73m2 Critically low >=60 [facility] Comment on above: Performed By: #### C MP, CK, TSH #### [facility] [address] [address] [address] Blanquita Farris Globulin (S) [Mass/Vol] 4.6 g/dL Normal [facility] Comment on above: Performed By: #### C MP, CK, TSH #### [facility] [address] [address] [address] Blanquita Farris Glucose [Mass/Vol] 194 mg/dL Critically high 74-106 [facility] Comment on above: Performed By: #### C MP, CK, TSH #### [facility] [address] [address] [address] Blanquita Farris Potassium [Moles/Vol] 3.6 mmol/L Normal 3.5-5.1 [facility] Comment on above: Performed By: #### C MP, CK, TSH #### [facility] [address] [address] [address] Blanquita Farris Protein [Mass/Vol] 8.3 g/dL Critically high 6.4-8.2 [facility] Comment on above: Performed By: #### C MP, CK, TSH #### [facility] [address] [address] [address] Blanquita Farris Sodium [Moles/Vol] 140 mmol/L Normal 136-145 [facility] Comment on above: Performed By: #### C MP, CK, TSH #### [facility] [address] [address] [address] Blanquita Farris Urea nitrogen [Mass/Vol] 13.0 mg/dL Normal 7.0-18.0 [facility] Comment on above: Performed By: #### C MP, CK, TSH #### [facility] [address] [address] [address] Blanquita Farris Urea nitrogen/Creatinine [Mass ratio] 12.5 mg/mg Normal [facility] Comment on above: Performed By: #### C MP, CK, TSH #### [facility] [address] [place] [address] Dr. Blanquita Farris TSHon 10-19-2022 TSH 0.292 uIU/mL Critically low 0.358-3.740 [facility] Comment on above: Performed By: #### C MP, CK, TSH #### [facility] [address] [place] [address] Dr. Blanquita Farris VITAMIN B12on 10-19-2022 Cobalamin (Vitamin B12) [Mass/Vol] 912.0 pg/mL Normal 193.0-986.0 [facility] Comment on above: Performed By: #### V ITB12 #### [facility] [address] [place] [address] Dr. Blanquita Farris US SINGLE QUAD RT [...] by: KAILEE YANG Date: 2022-06-10 11:[address] [facility] US SPLEENon 06-10-2022 US SPLEEN EXAM: [...] by: KAILEE YANG Date: 2022-06-10 12:[address] [facility] LACTOFERRIN FECAL QUANTon Lactoferrin, Fecal, Quant. 1.96 ug/mL(g) Normal 0.00-7.24 [facility] Comment on above: Result Comment: . [...] (IBS). Performed By: #### I NSULIN #### [facility] [address] [place] [address] Dr. Blanquita Farris CALPROTECTIN, FECALon 2021 Calprotectin, Fecal 33 ug/g Normal 0-120 [facility] Comment on above: Result Comment: Conc entration Interpretation Follow-Up <16 - 50 ug/g Normal None >50 -120 ug/g Borderline Re-evaluate in 4-6 weeks >120 ug/g Abnormal Repeat as clinically indicated Performed By: #### C ALPOO #### [facility] [address] [place] [address] Dr. Blanquita Farris PANCREATIC ELASTASE FECALon 03-20-2022 Pancreatic Elastase, Fecal 364 ug Elast./g Normal >200 [facility] Comment on above: Result Comment: Korina re Pancreatic Insufficiency: <100 Moderate Pancreatic Insufficiency: 100 - 200 Normal: >200 Performed By: #### C BC #### [facility] [address] [address] [address] Blanquita Farris BOWEL DISORDERS EVALUATION R ULE-OUT CASCon 03-18-2022 Atypical pANCA Negative Normal Negative [facility] Comment on above: Performed By: #### C BC #### [facility] [address] [address] [address] Blanquita Farris Note: Comment Normal [facility] Comment on above: Result Comment: Sugg estive of Crohn's disease. Subsequent testing with the Crohn's Disease Prognostic Profile (702228) that includes antiglycan antibodies AMCA, ALCA, ACCA, and Xochitl may aid in the differentiation of clinical forms of CD and prognosis of disease progression. Performed By: #### C BC #### [facility] [address] [address] [address] Blanquita Farris Saccharomyces Cer. IgG 28.0 Units Critically high 0.0-24.[address] [facility] Comment on above: Result Comment: Nega tive <20.0 Equivocal 20.1 - 24.9 Positive >or= 25.0 Performed By: #### C BC #### [facility] [address] [address] [address] Blanquita Farris tTG/DGP SCR Negative Normal Negative [facility] Comment on above: Performed By: #### C BC #### [facility] [address] [address] [address] Blanquita Farris INSULINon 03-16-2022 Insulin 43.0 uIU/mL Critically high 2.6-24.9 [facility] Comment on above: Performed By: #### I NSULIN #### [facility] [address] [address] [address] Blanquita Farris OCC BLD IMMUNO SCREENon 02-21 OCCULT BLOOD Negative Normal NEGATIVE [facility] Comment on above: Performed By: #### C BC #### [facility] [address] [address] [address] Blanquita Farris CBC AUTO DIFFon 03-15-2022 BASO # 0.0 103/ul Normal 0.0-0.1 [facility] Comment on above: Performed By: #### C BC #### [facility] [address] [address] [address] Blanquita Farris Basophils/100 WBC (Bld) 0.7 % Normal 0.2-2.0 [facility] Comment on above: Performed By: #### C BC #### [facility] [address] [address] [address] Blanquita Farris EO # 0.2 103/ul Normal 0.0-0.7 [facility] Comment on above: Performed By: #### C BC #### [facility] [address] [place] [address] Dr. Blanquita Farris Eosinophils/100 WBC (Bld) 2.7 % Normal 0.9-7.0 [facility] Comment on above: Performed By: #### C BC #### [facility] [address] [address] [address] Blanquita Farris Erythrocyte distribution width (RBC) [Ratio] 14.8 % Normal 11.0-15.0 [facility] Comment on above: Performed By: #### C BC #### [facility] [address] [place] [address] Dr. Blanquita Farris Hematocrit (Bld) [Volume fraction] 43.4 % Normal 36.0-48.0 [facility] Comment on above: Performed By: #### C BC #### [facility] [address] [address] [address] Blanquita Farris Hemoglobin (Bld) [Mass/Vol] 14.1 g/dL Normal 12.0-16.0 [facility] Comment on above: Performed By: #### C BC #### [facility] [address] [place] [address] Dr. Blanquita Farris IG # 0.03 10e3/ul Normal 0.00-0.03 [facility] Comment on above: Performed By: #### C BC #### [facility] [address] [place] [address] Dr. Blanquita Farris IG % 0.5 % Normal 0.0-0.5 [facility] Comment on above: Performed By: #### C BC #### [facility] [address] [place] [address] Dr. Blanquita Farris LYMPH # 1.1 103/ul Critically low 1.2-3.8 [facility] Comment on above: Performed By: #### C BC #### [facility] [address] [place] [address] Dr. Blanquita Farris Lymphocytes/100 WBC (Bld) 18.9 % Critically low 20.5-60.0 [facility] Comment on above: Performed By: #### C BC #### [facility] [address] [place] [address] Dr. Blanquita Farris MANUAL DIFF REQ NO Normal [facility] Comment on above: Performed By: #### C BC #### [facility] [address] [place] [address] Dr. Blanquita Farris MCH (RBC) [Entitic mass] 27.9 pg Normal 26.7-34.0 [facility] Comment on above: Performed By: #### C BC #### [facility] [address] [place] [address] Dr. Blanquita Farris MCHC (RBC) [Mass/Vol] 32.5 g/dL Normal 29.9-35.2 [facility] Comment on above: Performed By: #### C BC #### [facility] [address] [place] [address] Dr. Blanquita Farris MCV (RBC) [Entitic vol] 85.8 fL Normal 81.0-99.0 [facility] Comment on above: Performed By: #### C BC #### [facility] [address] [place] [address] Dr. Blanquita Farris MONO # 0.4 103/ul Normal 0.3-0.8 [facility] Comment on above: Performed By: #### C BC #### [facility] [address] [place] [address] Dr. Blanquita Farris Monocytes/100 WBC (Bld) 7.2 % Normal 1.7-12.[address] [facility] Comment on above: Performed By: #### C BC #### [facility] [address] [place] [address] Dr. Blanquita Farris NEUT # 4.1 103/ul Normal 1.4-6.[address] [facility] Comment on above: Performed By: #### C BC #### [facility] [address] [place] [address] Dr. Blanquita Farris Neutrophils/100 WBC (Bld) 70.0 % Normal 43.0-75.[address] [facility] Comment on above: Performed By: #### C BC #### [facility] [address] [place] [address] Dr. Blanquita Farris Platelet mean volume (Bld) [Entitic vol] 10.4 fL Normal 9.5-13.[address] [facility] Comment on above: Performed By: #### C BC #### [facility] [address] [place] [address] Dr. Blanquita Farris PLT 158 103/ul Normal 150-[address] [facility] Comment on above: Performed By: #### C BC #### [facility] [address] [place] [address] Dr. Blanquita Farris RBC 5.06 106/ul Normal 4.20-5.[address] [facility] Comment on above: Performed By: #### C BC #### [facility] [address] [place] [address] Dr. Blanquita Farris WBC 5.9 103/ul Normal 4.0-11.[address] [facility] Comment on above: Performed By: #### C BC #### [facility] [address] [place] [address] Dr. Blanquita Farris FREE THYROXINE INDEX T7on FTI 4.00 Normal 1.30-4.[address] [facility] Comment on above: Performed By: #### C BC #### [facility] [address] [address] [address] Blanquita Farris T3U 31.0 % Normal 30.0-39.0 [facility] Comment on above: Performed By: #### C BC #### [facility] [address] [address] [address] Blanquita Farris T4 [Mass/Vol] 12.90 ug/dL Normal 4.80-13.90 [facility] Comment on above: Performed By: #### C BC #### [facility] [address] [address] [address] Blanquita Farris GLYCOHEMOGLOBIN A1Con 2021 ADA RECOMMENDATION SEE BELOW Normal [facility] Comment on above: Result Comment: ADA RECOMMENDED LIMIT 4.0 - 6.0 ADA THERAPEUTIC TARGET < 7.0 ACTION SUGGESTED > 7.0 Performed By: #### A 1C #### [facility] [address] [address] [address] Blanquita Farris Glucose [Mass/Vol] 146 mg/dL Normal [facility] Comment on above: Performed By: #### A 1C #### [facility] [address] [address] [address] Blanquita Farris HbA1c (Bld) [Mass fraction] 6.7 % Critically high 4.5-6.2 [facility] Comment on above: Performed By: #### A 1C #### [facility] [address] [place] [address] Dr. Blanquita Farris IRONon 03-15-2022 Iron [Mass/Vol] 67.0 ug/dL Normal 50.0-170.0 [facility] Comment on above: Performed By: #### I KEON #### [facility] [address] [address] [address] Blanquita Farris LIPID PROFILEon 03-15-2022 CHOL-HDL RATIO NORM SEE BELOW Normal [facility] Comment on above: Result Comment: 3.3 - 4.4 LOW RISK 4.4 - 7.1 AVERAGE RISK 7.1 - 11.0 MODERATE RISK >11.0 HIGH RISK Performed By: #### C BC #### [facility] [address] [address] [address] Blanquita Farris Cholesterol [Mass/Vol] 137 mg/dL Normal <=200 [facility] Comment on above: Performed By: #### C BC #### [facility] [address] [address] [address] Blanquita Farris Cholesterol in HDL [Mass/Vol] 52 mg/dL Normal 40-60 [facility] Comment on above: Performed By: #### C BC #### [facility] [address] [address] [address] Blanquita Farris Cholesterol in LDL [Mass/Vol] 62.0 mg/dL Normal [facility] Comment on above: Performed By: #### C BC #### [facility] [address] [address] [address] Blanquita Farris Cholesterol.total/C holesterol in HDL [Mass ratio] 2.6 {ratio} Normal [facility] Comment on above: Performed By: #### C BC #### [facility] [address] [address] [address] Blanquita Farris HDL NORMAL > or = 60 mg/dl - LO W CARDIOVASCULAR RISK <40 mg/dl - HIGH CARDIOVASCULAR RISK Normal [facility] Comment on above: Performed By: #### C BC #### [facility] [address] [address] [address] Blanquita Farris LDL CALC NORMAL SEE BELOW Normal [facility] Comment on above: Result Comment: <100 mg/dl OPTIMAL 100 - 129 mg/dl NEAR OR ABOVE OPTIMAL 130 - 159 mg/dl BORDERLINE HIGH 160 - 189 mg/dl HIGH >190 mg/dl VERY HIGH Performed By: #### C BC #### [facility] [address] [address] [address] Blanquita Farris Triglyceride [Mass/Vol] 115 mg/dL Normal <=[address] [facility] Comment on above: Performed By: #### C BC #### [facility] [address] [address] [address] Blanquita Farris VLDL CALC 23.0 mg/dL Normal [facility] Comment on above: Performed By: #### C BC #### [facility] [address] [place] [address] Dr. Blanquita Farris PROF 14(COMP METB)on 022 Albumin [Mass/Vol] 4.1 g/dL Normal 3.4-5.0 [facility] Comment on above: Performed By: #### C BC #### [facility] [address] [place] [address] Dr. Blanquita Farris Albumin/Globulin [Mass ratio] 1.0 {ratio} Normal [facility] Comment on above: Performed By: #### C BC #### [facility] [address] [place] [address] Dr. Blanquita Farris ALP [Catalytic activity/Vol] 94 U/L Normal 46-116 [facility] Comment on above: Performed By: #### C BC #### [facility] [address] [place] [address] Dr. Blanquita Farris ALT [Catalytic activity/Vol] 32 U/L Normal 14-59 [facility] Comment on above: Performed By: #### C BC #### [facility] [address] [place] [address] Dr. Blanquita Farris Anion gap [Moles/Vol] 8.8 mmol/L Normal [facility] Comment on above: Performed By: #### C BC #### [facility] [address] [place] [address] Dr. Blanquita Farris AST [Catalytic activity/Vol] 26 U/L Normal 15-37 [facility] Comment on above: Performed By: #### C BC #### [facility] [address] [place] [address] Dr. Blanquita Farris Bilirubin [Mass/Vol] 0.4 mg/dL Normal 0.2-1.0 [facility] Comment on above: Performed By: #### C BC #### [facility] [address] [place] [address] Dr. Blanquita Farris Calcium [Mass/Vol] 9.0 mg/dL Normal 8.5-10.1 [facility] Comment on above: Performed By: #### C BC #### [facility] [address] [place] [address] Dr. Blanquita Farris Chloride [Moles/Vol] 100 mmol/L Normal 98-107 [facility] Comment on above: Performed By: #### C BC #### [facility] [address] [address] [address] Blanquita Farris CO2 [Moles/Vol] 31.6 mmol/L Normal 21.0-32.0 [facility] Comment on above: Performed By: #### C BC #### [facility] [address] [address] [address] Blanquita Farris Creatinine [Mass/Vol] 0.87 mg/dL Normal 0.55-1.02 [facility] Comment on above: Performed By: #### C BC #### [facility] [address] [place] [address] Dr. Blanquita Farris EGFR-AF COMORAN >60 Normal >=60 [facility] Comment on above: Performed By: #### C BC #### [facility] [address] [address] [address] Blanquita Farris EGFR-NON AF COMORAN >60 Normal >=60 [facility] Comment on above: Performed By: #### C BC #### [facility] [address] [address] [address] Blanquita Farris Globulin (S) [Mass/Vol] 4.0 g/dL Normal [facility] Comment on above: Performed By: #### C BC #### [facility] [address] [address] [address] Blanquita Farris Glucose [Mass/Vol] 192 mg/dL Critically high 74-106 [facility] Comment on above: Performed By: #### C BC #### [facility] [address] [address] [address] Blanquita Farris Potassium [Moles/Vol] 3.4 mmol/L Critically low 3.5-5.1 [facility] Comment on above: Performed By: #### C BC #### [facility] [address] [address] [address] Blanquita Farris Protein [Mass/Vol] 8.1 g/dL Normal 6.4-8.2 [facility] Comment on above: Performed By: #### C BC #### [facility] [address] [place] [address] Dr. Blanquita Farris Sodium [Moles/Vol] 137 mmol/L Normal 136-145 [facility] Comment on above: Performed By: #### C BC #### [facility] [address] [place] [address] Dr. Blanquita Farris Urea nitrogen [Mass/Vol] 9.0 mg/dL Normal 7.0-18.0 [facility] Comment on above: Performed By: #### C BC #### [facility] [address] [place] [address] Dr. Blanquita Farris Urea nitrogen/Creatinine [Mass ratio] 10.3 mg/mg Normal [facility] Comment on above: Performed By: #### C BC #### [facility] [address] [place] [address] Dr. Blanquita Farris PROTIMEon 03-15-2022 INR Coag (PPP) [Relative time] 1.15 {INR} Normal [facility] Comment on above: Performed By: #### C BC #### [facility] [address] [place] [address] Dr. Blanquita Farris INR GUIDELINES SEE BELOW Normal [facility] Comment on above: Result Comment: SOLANGE RED INR: 2.0 - 3.0 CONDITIONS NOT LISTED BELOW 2.5 - 3.5 FOR PROSTHETIC HEART VALVE REPLACEMENT 2.5 - 3.5 RECURRENT THROMBOSIS Performed By: #### C BC #### [facility] [address] [place] [address] Dr. Blanquita Farris PT Coag (PPP) [Time] 12.3 s Critically high 9.0-11.6 [facility] Comment on above: Performed By: #### C BC #### [facility] [address] [place] [address] Dr. Blanquita Farris TSHon 03-15-2022 TSH 0.342 uIU/mL Critically low 0.358-3.740 [facility] Comment on above: Performed By: #### C BC #### [facility] [address] [address] [address] Blanquita Farris Progress Noteson 02-16-2022 Quarter Inspector Authentication Interface Message Text EMERGENCY TRIAGE, TREAT AND TRANSPORT (ET3) DOCUMENTATION OF TELEHEALTH VISIT Date / Time: 02/16/2022 / 6:00 AM Name: Renetta Barbosa : 1960 SSN: (Not on file) EMS Agency: [facility] [] Verbal consent obtained [] [...] Completed by: Pedro Arechiga MD Normal [facility] SINGLE QUAD RT UPPERon SINGLE QUAD RT UPPER EXAMINATION: US SINGLE [...] by: LEONEL MATA Date: 2021-11-25 17:[address] [facility] ACETONE SERUMon 05-17-2021 ACETONE Negative Normal NEGATIVE [facility] Comment on above: Performed By: #### A CETON #### [facility] [address] [place] [address] Dr. Blanquita Farris CBC W MANUAL DIFFon 05-17-20 21 ATYPICAL LYMPH # Normal [facility] Comment on above: Performed By: #### C BCMAN #### [facility] [address] [place] [address] Dr. Blanquita Farris ATYPICAL LYMPH % Normal [facility] Comment on above: Performed By: #### C BCMAN #### [facility] [address] [place] [address] Dr. Blanquita Farris BAND # Normal 0.0-0.3 [facility] Comment on above: Performed By: #### C BCMAN #### [facility] [address] [place] [address] Dr. Blanquita Farris BAND % Normal 0-5 [facility] Comment on above: Performed By: #### C BCMAN #### [facility] [address] [place] [address] Dr. Blanquita Farris BASOM # 0.00 103/ul Normal 0.00-0.10 [facility] Comment on above: Performed By: #### C BCMAN #### [facility] [address] [place] [address] Dr. Blanquita Farris BASOM % 0.0 % Critically low 0.2-2.0 [facility] Comment on above: Performed By: #### C BCMAN #### [facility] [address] [place] [address] Dr. Blanquita Farris BLAST # Normal [facility] Comment on above: Performed By: #### C BCMAN #### [facility] [address] [place] [address] Dr. Blanquita Farris BLAST % Normal [facility] Comment on above: Performed By: #### C BCMAN #### [facility] [address] [address] [address] Blanquita Farris CORRECTED WBC Normal 4.0-11.0 [facility] Comment on above: Performed By: #### C BRIGETTE #### [facility] [address] [place] [address] Dr. Blanquita Farris EOS # 0.00 103/ul Normal 0.00-0.[address] [facility] Comment on above: Performed By: #### C BRIGETTE #### [facility] [address] [address] [address] Blanquita Farris EOS% 0.0 % Critically low 0.9-7.0 [facility] Comment on above: Performed By: #### C BRIGETTE #### [facility] [address] [place] [address] Dr. Blanquita Farris HCT 40.7 % Normal 36.0-48.0 [facility] Comment on above: Performed By: #### C BRIGETTE #### [facility] [address] [place] [address] Dr. Blanquita Farris HGB 12.9 g/dl Normal 12.0-16.0 [facility] Comment on above: Performed By: #### C BRIGETTE #### [facility] [address] [place] [address] Dr. Blanquita Farris LYMPHM # 0.63 103/ul Critically low 1.20-3.80 [facility] Comment on above: Performed By: #### C BRIGETTE #### [facility] [address] [place] [address] Dr. Blanquita Farris LYMPHM% 18.0 % Critically low 20.5-60.0 [facility] Comment on above: Performed By: #### C BRIGETTE #### [facility] [address] [place] [address] Dr. Blanquita Farris MCH 28.4 pg Normal 26.7-34.0 [facility] Comment on above: Performed By: #### C BRIGETTE #### [facility] [address] [place] [address] Dr. Blanquita Farris MCHC 31.7 g/dl Normal 29.9-35.2 [facility] Comment on above: Performed By: #### C BRIGETTE #### [facility] [address] [place] [address] Dr. Blanquita Farris MCV 89.5 fL Normal 81.0-99.0 [facility] Comment on above: Performed By: #### C BRIGETTE #### [facility] [address] [place] [address] Dr. Blanquita Farris METAMYELOCYTE # Normal [facility] Comment on above: Performed By: #### C BRIGETTE #### [facility] [address] [place] [address] Dr. Blanquita Farris METAMYELOCYTE % Normal [facility] Comment on above: Performed By: #### C BRIGETTE #### [facility] [address] [place] [address] Dr. Blanquita Farris MONOM# 0.14 103/ul Critically low 0.30-0.80 [facility] Comment on above: Performed By: #### C BRIGETTE #### [facility] [address] [place] [address] Dr. Blanquita Farris MONOM% 4.0 % Normal 1.7-12.0 [facility] Comment on above: Performed By: #### C BRIGETTE #### [facility] [address] [place] [address] Dr. Blanquita Farris MPV 12.1 fL Normal 9.5-13.5 [facility] Comment on above: Performed By: #### C BRIGETTE #### [facility] [address] [place] [address] Dr. Blanquita Farris MYELOCYTE # Normal [facility] Comment on above: Performed By: #### C BRIGETTE #### [facility] [address] [place] [address] Dr. Blanquita Farris MYELOCYTE % Normal [facility] Comment on above: Performed By: #### C BRIGETTE #### [facility] [address] [place] [address] Dr. Blanquita Farris NRBC Normal [facility] Comment on above: Performed By: #### C BRIGETTE #### [facility] [address] [address] [address] Blanquita Farris PLT 121 103/ul Critically low 150-450 [facility] Comment on above: Performed By: #### Larisa MACHUCA #### [facility] [address] [address] [address] Blanquita Farris RBC 4.55 106/ul Normal 4.20-5.40 [facility] Comment on above: Performed By: #### Larisa MACHUCA #### [facility] [address] [address] [address] Blanquita Farris RDW 15.8 % Critically high 11.0-15.0 [facility] [place] Comment on above: Performed By: #### Larisa MACHUCA #### [facility] [address] [address] [address] Blanquita Farris SEG # 2.73 103/ul Normal 1.40-6.50 [facility] Comment on above: Performed By: #### Larisa MACHUCA #### [facility] [address] [address] [address] Blanquita Farris SEG % 78.0 % Critically high 43.0-75.0 [facility] [place] Comment on above: Performed By: #### Larisa MACHUCA #### [facility] [address] [address] [address] Blanquita Farris WBC 3.5 103/ul Critically low 4.0-11.0 [facility] Comment on above: Performed By: #### Larisa MACHUCA #### [facility] [address] [address] [address] CSPINE WO CONon [...] KEYSHA NAIDU Date: 2021-05-17 09:[address] [facility] ER URINE PROFILEon 1 Bilirubin Ql (U) Negative Normal NEGATIVE [facility] Comment on above: Performed By: #### E RUR #### [facility] [address] [place] [address] Dr. Blanquita Farris Clarity (U) CLEAR Normal CLEAR [facility] Comment on above: Performed By: #### E RUR #### [facility] [address] [place] [address] Dr. Blanquita Farris Color (U) LT. YELLOW Normal YELLOW [facility] Comment on above: Performed By: #### E RUR #### [facility] [address] [place] [address] Dr. Blanquita Farris ERUAHD A micrscopic examination will be performed if indicated. Normal [facility] Comment on above: Performed By: #### E RUR #### [facility] [address] [place] [address] Dr. Blanquita Farris Glucose Ql (U) 100 mg/dl Abnormal NEGATIVE [facility] Comment on above: Performed By: #### E RUR #### [facility] [address] [place] [address] Dr. Blanquita Farris Hemoglobin Ql (U) Negative Normal NEGATIVE [facility] Comment on above: Performed By: #### E RUR #### [facility] [address] [place] [address] Dr. Blanquita Farris Ketones Ql (U) Negative Normal NEGATIVE [facility] Comment on above: Performed By: #### E RUR #### [facility] [address] [place] [address] Dr. Blanquita Farris LEUKOCYTES Negative Normal NEGATIVE [facility] Comment on above: Performed By: #### E RUR #### [facility] [address] [address] [address] Blanquita Farris Nitrite Ql (U) Negative Normal NEGATIVE [facility] Comment on above: Performed By: #### E RUR #### [facility] [address] [place] [address] Dr. Blanquita Farris pH (U) 7.0 [pH] Normal 5-9 [facility] Comment on above: Performed By: #### E RUR #### [facility] [address] [place] [address] Dr. Blanquita Farris SPEC GRAVITY 1.015 Normal 1.005-<=1.025 [facility] Comment on above: Performed By: #### E RUR #### [facility] [address] [place] [address] Dr. Blanquita Farris UA PROTEIN Negative Normal NEGATIVE/ TRACE [facility] [place] Comment on above: Performed By: #### E RUR #### [facility] [address] [place] [address] Dr. Blanquita Farris UR MICRO IND NOT INDICATED Normal [facility] [place] Comment on above: Performed By: #### E RUR #### [facility] [address] [place] [address] Dr. Blanquita Farris Urobilinogen Qn (U) 0.2 {Chevy'U}/dL Normal 0.2 - 1. 0 [facility] Comment on above: Performed By: #### E RUR #### [facility] [address] [place] [address] Dr. Blanquita Farris POINT OF CARE GLUCOSEon 12-2 Glucose [Mass/Vol] 234 mg/dL Critically high 74-106 [facility] Comment on above: Performed By: #### P OCGLUC #### [facility] [address] [place] [address] Dr. Blanquita Farris PROF 14(COMP METB)on 021 Albumin [Mass/Vol] 3.5 g/dL Normal 3.5-5.0 [facility] Comment on above: Performed By: #### C MP #### [facility] [address] [place] [address] Dr. Blanquita Farris Albumin/Globulin [Mass ratio] 0.9 {ratio} Normal [facility] Comment on above: Performed By: #### C MP #### [facility] [address] [place] [address] Dr. Blanquita Farris ALP [Catalytic activity/Vol] 73 U/L Normal 38-126 [facility] Comment on above: Performed By: #### C MP #### [facility] [address] [place] [address] Dr. Blanquita Farris ALT [Catalytic activity/Vol] 39 U/L Normal 9-52 [facility] Comment on above: Performed By: #### C MP #### [facility] [address] [place] [address] Dr. Blanquita Farris Anion gap [Moles/Vol] 12.9 mmol/L Normal [facility] Comment on above: Performed By: #### C MP #### [facility] [address] [place] [address] Dr. Blanquita Farris AST [Catalytic activity/Vol] 33 U/L Normal 14-[address] [facility] Comment on above: Performed By: #### C MP #### [facility] [address] [place] [address] Dr. Blanquita Farris Bilirubin [Mass/Vol] 0.3 mg/dL Normal 0.2-1.[address] [facility] Comment on above: Performed By: #### C MP #### [facility] [address] [place] [address] Dr. Blanquita Farris Calcium [Mass/Vol] 8.9 mg/dL Normal 8.4-10.2 [facility] Comment on above: Performed By: #### C MP #### [facility] [address] [address] [address] Blanquita Farris Chloride [Moles/Vol] 105 mmol/L Normal 98-107 [facility] Comment on above: Performed By: #### C MP #### [facility] [address] [place] [address] Dr. Blanquita Farris CO2 [Moles/Vol] 28.3 mmol/L Normal 22.0-30.0 [facility] Comment on above: Performed By: #### C MP #### [facility] [address] [place] [address] Dr. Blanquita Farris Creatinine [Mass/Vol] 0.75 mg/dL Normal 0.52-1.04 [facility] Comment on above: Performed By: #### C MP #### [facility] [address] [place] [address] Dr. Blanquita Farris EGFR-AF COMORAN >60 Normal >=60 [facility] Comment on above: Performed By: #### C MP #### [facility] [address] [place] [address] Dr. Blanquita Farris EGFR-NON AF COMORAN >60 Normal >=60 [facility] Comment on above: Performed By: #### C MP #### [facility] [address] [place] [address] Dr. Blanquita Farris Globulin (S) [Mass/Vol] 3.8 g/dL Normal [facility] Comment on above: Performed By: #### C MP #### [facility] [address] [place] [address] Dr. Blanquita Farris Glucose [Mass/Vol] 173 mg/dL Critically high 74-106 [facility] Comment on above: Performed By: #### C MP #### [facility] [address] [place] [address] Dr. Blanquita Farris Potassium [Moles/Vol] 3.2 mmol/L Critically low 3.4-5.0 [facility] Comment on above: Performed By: #### C MP #### [facility] [address] [place] [address] Dr. Blanquita Farris Protein [Mass/Vol] 7.3 g/dL Normal 6.1-8.2 [facility] Comment on above: Performed By: #### C MP #### [facility] [address] [address] [address] Blanquita Farris Sodium [Moles/Vol] 143 mmol/L Normal 137-145 [facility] Comment on above: Performed By: #### C MP #### [facility] [address] [address] [address] Blanquita Farris Urea nitrogen [Mass/Vol] 11.0 mg/dL Normal 7.0-17.0 [facility] Comment on above: Performed By: #### C MP #### [facility] [address] [place] [address] Dr. Blanquita Farris Urea nitrogen/Creatinine [Mass ratio] 14.7 mg/mg Normal [facility] Comment on above: Performed By: #### C MP #### [facility] [address] [place] [address] Dr. Blanquita Farris DIGITAL MAMMOGRAM SCREENING BILATERALon 11-22-2018 DIGITAL MAMMOGRAM SCREENING BILATERAL [facility] Department of Radiology [address] [place] [id number] ======== Patient Name: RENETTA HERNANDEZ : 1960 Sex: F Age: Race: White Pt. Location: [facility] Patient Status: D Ordered Date: 10/11/2018 3:20:00 PM Completed Date: 11/22/2018 12:09 PM Requesting Provider: DES GLYNN Attending Provider: DES GLYNN Report Copy To: Signs & Symptoms: Z12.31 Encntr screen mammogram for malignant neoplasm of breast I10 History: [place] Previous study [facility] 2/24/18 Comments: , Additional imaging, if necessary?: Y [...] recommended. Electronically signed by:Summer Cage. Transcribed by: [email or web address], User Resident: Electronically Signed by: SUMMER CAGE @ 11/24/2018 03:21 PM Normal [facility] Comment on above: Order Comment: , Add itional imaging, if necessary?: Y , Additional imaging, if necessary?: Y , , , Ordering Provider - DES GLYNN CNP , *VAGINITIS DNA PROBEon 10-11 *VAGINITIS DNA PROBE Clinical Report: (D) Specimen: GENITAL Collected: 10/11/2018 14:45 Status: Final Last Updated: 10/11/2018 19:16 MARQUITA (Final) Negative JUAN (Final) Negative TRICH (Final) Negative Normal [facility] Comment on above: Performed By: #### 5 6101 #### [facility] [address] [place] [address], [facility] FREE T4on 09-20-2018 Free T4 [Mass/Vol] 0.93 ng/dL Normal 0.71-1.85 [facility] Comment on above: Performed By: #### 3 1522, 53099, 28191, 68081 #### [facility] [address] [place] [address], [facility] HEMOGLOBIN A1Con 09-20-2018 HbA1c (Bld) [Mass fraction] 269 mg/dL High 70-126 [facility] Comment on above: Performed By: #### 4 6447 #### [facility] [address] [place] [address], [facility] HbA1c (Bld) [Mass fraction] 11.0 % High 4.0-6.0 [facility] Comment on above: Performed By: #### 4 6447 #### [facility] [address] [place] [address], [facility] LIPID PROFILEon 09-20-2018 Cholesterol [Mass/Vol] 164 mg/dL Normal 120-200 [facility] Comment on above: Result Comment: CHOL ESTEROL REFERENCE RANGE: 20 YEARS AND OLDER CARDIOVASCULAR RISK Less than 200 mg/dl Low Risk 200 to 239 mg/dl Borderline Risk 240 mg/dl and greater High Risk Performed By: #### 3 1522, 61599, 50969, 81703 #### [facility] [address] [place] [address], [facility] Cholesterol in HDL [Mass/Vol] 30 mg/dL Normal 23-92 [facility] Comment on above: Result Comment: Slig ht variation in normal range could be due to gender and/or age. HDL CHOLESTEROL REFERENCE RANGE: 20 years and older Cardiovascular Risk > or =60 mg/dL Desirable 40 TO 59 mg/dL Low Risk <40 mg/dL High Risk Performed By: #### 3 1522, 22945, 88479, 38583 #### [facility] [address] [place] [address], [place] Cholesterol in LDL [Mass/Vol] 91 mg/dL Normal 0-130 [facility] Comment on above: Result Comment: LDL IS A CALCULATION LDL IS ONLY VALID IF THE TRIG IS LESS THAN 400. Performed By: #### 3 1522, 28307, 81529, 98839 #### [facility] [address] [place] [address], [place] Cholesterol.total/C holesterol in HDL [Mass ratio] 5.5 {ratio} High .0-4.5 [facility] Comment on above: Performed By: #### 3 1522, 53151, 47082, 14377 #### [facility] [address] [place] [address], [place] NON-HDL CHOLESTEROL 134 mg/dL Normal [facility] Comment on above: Performed By: #### 3 1522, 82509, 09701, 41398 #### [facility] [address] [place] [address], [place] Triglyceride [Mass/Vol] 215 mg/dL High 40-149 [facility] Comment on above: Result Comment: TRIG LYCERIDE REFERENCE RANGE: 20 YEARS AND OLDER CARDIOVASCULAR RISK LESS THAN 150 mg/dl LOW RISK 150 TO 199 mg/dl BORDERLINE RISK 200 mg/dl AND GREATER HIGH RISK Performed By: #### 3 1522, 75341, 78068, 46341 #### [facility] [address] [place] [address], [place] VLDL CHOL 43 mg/dL High 0-40 [facility] Comment on above: Performed By: #### 3 1522, 75056, 49889, 77834 #### [facility] [address] [place] [address], [place] MICROALBUMIN URINE RANDOMon 09-20-2018 Creatinine [Mass/Vol] 148.0 mg/dL Normal [facility] Comment on above: Result Comment: Ther e are no established reference values for random urine specimens Performed By: #### 3 0067 #### [facility] [address] [place] [address], [facility] MICROALBUMIN <1.0 Normal [facility] Comment on above: Performed By: #### 3 0067 #### [facility] [address] [place] [address], [facility] MICROALBUMIN/CREATI NINE RATIO 'UNABLE TO CALC Normal 0.0-30.0 [facility] Comment on above: Performed By: #### 3 0067 #### [facility] [address] [place] [address], [facility] TSH3on 09-20-2018 TSH 3RD GENERATION 1.53 uIU/mL Normal 0.34-5.60 [facility] Comment on above: Performed By: #### 3 1522, 79114, 06150, 11944 #### [facility] [address] [place] [address], [facility] VITAMIN D 25-HYDROXYon 09-20 VITAMIN D 25-OH 33.8 ng/mL Normal 30.0-80.0 [facility] Comment on above: Result Comment: >80. 0 Toxicity possible Performed By: #### 3 1522, 29223, 40308, 55513 #### [facility] [address] [place] [address], [facility] US HEPATIC ECHOGRAMon 2018 US HEPATIC ECHOGRAM [facility] Department of Radiology [address] [place] [address] ======== Patient Name: RENETTA HERNANDEZ : 1960 Sex: F Age: Race: White Pt. Location: [facility][note 3] Patient Status: O Ordered Date: 06/19/2018 3:35:00 PM Completed Date: 08/22/2018 10:39 AM Requesting Provider: ANGELIQUE BENNETT Attending Provider: ANGELIQUE BENNETT Report Copy To: FAINA CHAPMAN Signs & Symptoms: K74.60 Unspecified cirrhosis of liver I10 History: [place] Comments: , , , Ordering Provider - [...] signed by:Russell De La Rosa. Transcribed by: [email or web address], User Resident: Electronically Signed by: RUSSELL DE LA ROSA @ 08/22/2018 12:53 PM Normal [facility] Comment on above: Order Comment: , , = ========= , Ordering Provider - ANGELIQUE BENNETT MD , US ABDOMINAL FOR ASCITES JIMENEZ ITEDon 06-28-2018 US ABDOMINAL FOR ASCITES LIMITED [facility] Department of Radiology [address] [place] [id number] ======== Patient Name: RENETTA HERNANDEZ : 1960 Sex: F Age: Race: White Pt. Location: [facility][note 3] Patient Status: O Ordered Date: 06/19/2018 3:35:00 [...] RADIOLOGIST: , , , Ordering Provider - NAGELIQUE BENNETT MD , PROTOCOL: COMPARISON: Ultrasound hepatic December 21, 2017 FINDINGS: Abdominal ultrasound for ascites: Scans through the 4 quadrants of the abdomen show no evidence of ascites. IMPRESSION: * No ascites or abnormal collection visualized within the abdomen. Approved by:Last Franco on 06/28/2018 11:32 AM EST. I, Russell De La Rosa, have reviewed the images and report and concur with these findings. Electronically signed by:Russell De La Rosa. Transcribed by: [email or web address], User Resident: LAST FRANCO Electronically Signed by: RUSSELL DE LA ROSA @ 06/28/2018 12:53 PM I personally read this/these film(s) with this resident Normal [facility] Comment on above: Order Comment: , , = ========= , Ordering Provider - ANGELIQUE BENNETT MD , COMP METABOLIC PANELon 06-19 Albumin [Mass/Vol] 4.1 g/dL Normal 3.5-5.7 [facility] Comment on above: Performed By: #### 0 0121 #### [facility] [address] [place] [address], [facility] ALKALINE PHOSPH 67 IU/L Normal 34-104 [facility] Comment on above: Performed By: #### 0 0121 #### [facility] [address] [place] [address], [place] ALT [Catalytic activity/Vol] 21 U/L Normal 7-52 [facility] Comment on above: Performed By: #### 0 0121 #### [facility] [address] [place] [address], [place] AST [Catalytic activity/Vol] 22 U/L Normal 13-39 [facility] Comment on above: Performed By: #### 0 0121 #### [facility] [address] [place] [address], [place] Bilirubin [Mass/Vol] 0.5 mg/dL Normal 0.3-1.0 [facility] Comment on above: Performed By: #### 0 0121 #### [facility] [address] [place] [address], [place] Calcium [Mass/Vol] 9.7 mg/dL Normal 8.6-10.3 [facility] Comment on above: Performed By: #### 0 0121 #### [facility] [address] [place] [address], [place] Chloride [Moles/Vol] 103 mmol/L Normal 98-107 [facility] Comment on above: Performed By: #### 0 0121 #### [facility] [address] [place] [address], [place] CO2 [Moles/Vol] 28 mmol/L Normal 21-31 [facility] Comment on above: Performed By: #### 0 0121 #### [facility] [address] [place] [address], [place] Creatinine [Mass/Vol] 0.89 mg/dL Normal 0.60-1.20 [facility] Comment on above: Performed By: #### 0 0121 #### [facility] [address] [place] [address], [place] GFR/1.73 sq M predicted among blacks MDRD (S/P/Bld) [Vol rate/Area] mL/min/{1.73_m2} Normal >60 [facility] Comment on above: Performed By: #### 0 0121 #### [facility] [address] [place] [address], [place] GFR/1.73 sq M predicted among non-blacks MDRD (S/P/Bld) [Vol rate/Area] mL/min/{1.73_m2} Normal >60 [facility] Comment on above: Performed By: #### 0 0121 #### [facility] [address] [place] [address], [place] Glucose [Mass/Vol] 175 mg/dL High 70-100 [facility] Comment on above: Performed By: #### 0 0121 #### [facility] [address] [place] [address], [place] Potassium [Moles/Vol] 3.8 mmol/L Normal 3.5-5.1 [facility] Comment on above: Performed By: #### 0 0121 #### [facility] [address] [facility] [address] Protein [Mass/Vol] 7.5 g/dL Normal 6.0-8.3 [facility] Comment on above: Performed By: #### 0 0121 #### [facility] [address] [facility] [address] Sodium [Moles/Vol] 139 mmol/L Normal 136-145 [facility] Comment on above: Performed By: #### 0 0121 #### [facility] [address] [facility] [address] Urea nitrogen [Mass/Vol] 14 mg/dL Normal 7-25 [facility] Comment on above: Performed By: #### 0 0121 #### [facility] [address] [facility] PROTHROMBIN TIMEon 9 INR Coag (PPP) [Relative time] 1.17 {INR} High 0.91-1.16 [facility] Comment on above: Result Comment: ACCC [...] 1995;108:231S-246S. Performed By: #### 5 6101 #### [facility] [address] [place] [address], [facility] PT Coag (PPP) [Time] 14.9 s High 12.3-14.8 [facility] Comment on above: Result Comment: ALL RESULTS MUST BE INTERPRETED WITH RESPECT TO BLOOD DRAWING ARTIFACT OR DILUTION ERROR OF ANTICOAGULANT AT THE TIME OF SAMPLING. Performed By: #### 5 6101 #### [facility] [address] [place] [address], [facility] Vital Signs Date Time Vital Sign Value Performing Clinician [facility] 01-02-2024 11:52-0400 Blood Pressure Location NGA WILKINS [facility] 01-02-2024 11:52-0400 Diastolic blood pressure 82 mm[Hg] NGA JUANITO [facility] 01-02-2024 11:52-0400 Heart rate 78 /min NGAYOVANI WILKINS [facility] 01-02-2024 11:52-0400 Systolic blood pressure 130 mm[Hg] NGA JUANITO [facility] 12-05-2023 11:55-0400 Diastolic blood pressure 54 mm[Hg] NGA JUANITO [facility] 12-05-2023 11:55-0400 Mean blood pressure 77 mm[Hg] NGA JUANITO [facility] 12-05-2023 11:55-0400 Systolic blood pressure 122 mm[Hg] NGA JUANITO [facility] 12-05-2023 11:44-0400 Blood Pressure Location NGA JUANITO [facility] 12-05-2023 11:44-0400 Diastolic blood pressure 107 mm[Hg] NGA JUANITO [facility] 12-05-2023 11:44-0400 Heart rate 95 /min NGA JUANITO [facility] 12-05-2023 11:44-0400 Systolic blood pressure 128 mm[Hg] NGA JUANITO [facility] 11-28-2023 11:43-0400 Blood Pressure Location NGA JUANITO [facility] 11-28-2023 11:43-0400 Diastolic blood pressure 67 mm[Hg] NGA JUANITO [facility] 11-28-2023 11:43-0400 Heart rate 95 /min NGA JUANITO [facility] 11-28-2023 11:43-0400 Systolic blood pressure 148 mm[Hg] NGA JUANITO [facility] 11-21-2023 11:37-0400 Blood Pressure Location NGA JUANITO [facility] 11-21-2023 11:37-0400 Body temperature 97.88 [degF] NGA JUANITO [facility] 11-21-2023 11:37-0400 Diastolic blood pressure 11 mm[Hg] NGA JUANITO [facility] 11-21-2023 11:37-0400 Heart rate 74 /min NGA JUANITO [facility] 11-21-2023 11:37-0400 Respiratory rate 15 /min NGA JUANITO [facility] 11-21-2023 11:37-0400 Systolic blood pressure 131 mm[Hg] NGA JUANITO [facility] 11-14-2023 11:36-0400 Blood Pressure Location NGA JUANITO [facility] 11-14-2023 11:36-0400 Body temperature 97.7 [degF] NGA JUANITO [facility] 11-14-2023 11:36-0400 Diastolic blood pressure 88 mm[Hg] NGA JUANITO [facility] 11-14-2023 11:36-0400 Heart rate 78 /min NGA JUANITO [facility] 11-14-2023 11:36-0400 Systolic blood pressure 150 mm[Hg] NGA JUANITO [facility] 06-23-2023 13:50-0500 Body height 157.5 cm Andre Funes MD Work Phone: [facility] 06-23-2023 13:50-0500 Body temperature 97.59 [degF] Andre Funes MD Work Phone: [facility] 06-23-2023 13:50-0500 Body weight 91.1 kg Andre Funes MD Work Phone: [facility] 06-23-2023 13:50-0500 Diastolic blood pressure 93 mm[Hg] Andre Funes MD Work Phone: [facility] 06-23-2023 13:50-0500 Heart rate 107 /min Andre Funes MD Work Phone: [facility] 06-23-2023 13:50-0500 Respiratory rate 18 /min Andre Funes MD Work Phone: [facility] 06-23-2023 13:50-0500 SaO2% (BldA) [Mass fraction] 94 % Andre Funes MD Work Phone: [facility] 06-23-2023 13:50-0500 Systolic blood pressure 149 mm[Hg] Andre Funes MD Work Phone: [facility] 05-03-2023 10:34-0500 Blood Pressure Location NGA JUANITO [facility] 05-03-2023 10:34-0500 Diastolic blood pressure 88 mm[Hg] NGA JUANITO [facility] 05-03-2023 10:34-0500 Heart rate 91 /min NGA JUANITO [facility] 05-03-2023 10:34-0500 Respiratory rate 16 /min NGA JUANITO [facility] 05-03-2023 10:34-0500 Systolic blood pressure 138 mm[Hg] NGA JUANITO [facility] [facility] 04-05-2023 14:15-0500 Body height 157.48 cm Rodger Hall [facility] Other 04-05-2023 14:15-0500 Body mass index (BMI) [Ratio] 37.31 kg/m2 Rodger Davila Other [facility] Other 04-05-2023 14:15-0500 Body weight 92.53 kg Rodger Davila Other [facility] Other 04-05-2023 14:15-0500 Diastolic blood pressure 82 mm[Hg] Rodger Davila Other [facility] Other 04-05-2023 14:15-0500 Systolic blood pressure 143 mm[Hg] Rodger Davila Other [facility] Other 09-28-2022 14:45-0400 Body height 157.48 cm Rodger Davila Other [facility] Other 09-28-2022 14:45-0400 Body mass index (BMI) [Ratio] 37.86 kg/m2 Rodger Davila Other [facility] Other 09-28-2022 14:45-0400 Body weight 93.9 kg Rodger Davila Other [facility] Other 09-28-2022 14:45-0400 Diastolic blood pressure 77 mm[Hg] Rodger Davila Other [facility] Other 09-28-2022 14:45-0400 SaO2% (BldA) [Mass fraction] 95 % Rodger Davila Other [facility] Other 09-28-2022 14:45-0400 Systolic blood pressure 156 mm[Hg] Rodger Davila Other [facility] Other 06-25-2022 13:45-0500 Diastolic blood pressure 82 mm[Hg] Andre Funes MD Work Phone: [facility] 06-25-2022 13:45-0500 Systolic blood pressure 152 mm[Hg] Andre Funes MD Work Phone: [facility] 06-25-2022 13:44-0500 Body height 157.5 cm Andre Funes MD Work Phone: [facility] 06-25-2022 13:44-0500 Body temperature 97.5 [degF] Andre Funes MD Work Phone: [facility] 06-25-2022 13:44-0500 Body weight 95.17 kg Andre Funes MD Work Phone: [facility] 06-25-2022 13:44-0500 Heart rate 88 /min Andre Funes MD Work Phone: [facility] 06-25-2022 13:44-0500 Respiratory rate 16 /min Andre Funes MD Work Phone: [facility] 06-25-2022 13:44-0500 SaO2% (BldA) [Mass fraction] 97 % Andre Funes MD Work Phone: [facility] 06-22-2022 14:30-0500 Body height 157.48 cm Rodger Davila Other [facility] Other 06-22-2022 14:30-0500 Body mass index (BMI) [Ratio] 37.86 kg/m2 Rodger Davila Other [facility] Other 06-22-2022 14:30-0500 Body weight 93.9 kg Rodger Davila Other [facility] Other 06-22-2022 14:30-0500 Diastolic blood pressure 80 mm[Hg] Rodger Davila Other [facility] Other 06-22-2022 14:30-0500 Systolic blood pressure 130 mm[Hg] Rodger Davila Other [facility] Other 03-04-2022 15:45-0400 Body height 157.48 cm Rodger Davila Other [facility] Other 03-04-2022 15:45-0400 Body mass index (BMI) [Ratio] 38.59 kg/m2 Rodger Davila Other [facility] Other 03-04-2022 15:45-0400 Body weight 95.71 kg Rodger Davila Other [facility] Other 12-17-2021 13:02-0400 Body height 157.5 cm Andre Funes MD Work Phone: [facility] 12-17-2021 13:02-0400 Body temperature 97.59 [degF] Andre Funes MD Work Phone: [facility] 12-17-2021 13:02-0400 Body weight 97.98 kg Andre Funes MD Work Phone: [facility] 12-17-2021 13:02-0400 Diastolic blood pressure 83 mm[Hg] Andre Funes MD Work Phone: [facility] 12-17-2021 13:02-0400 Heart rate 92 /min Andre Funes MD Work Phone: [facility] 12-17-2021 13:02-0400 Respiratory rate 16 /min Andre Funes MD Work Phone: [facility] 12-17-2021 13:02-0400 SaO2% (BldA) [Mass fraction] 95 % Andre Funes MD Work Phone: [facility] 12-17-2021 13:02-0400 Systolic blood pressure 145 mm[Hg] Andre Funes MD Work Phone: [facility] Encounters Encounter Date Encounter Type Care Provider Facility Start: 02-29-2024 ambulatory NGA E JUANITO Facili ty:[facility] Start: 01-30-2024 End: 01-30-2024 ambulatory RAJAT AGUILAR Not Available Start: 01-10-2024 End: 01-10-2024 ambulatory DENI Peres DIDION Not Available Start: 01-02-2024 End: 01-02-2024 ambulatory NGA E JUANITO Facility:[facility] Start: 01-02-2024 End: 01-02-2024 Patient encounter procedure NGA Tano PAGERY [facility] [place] Start: 12-19-2023 ambulatory NGA E JUANITO Facili ty:[facility] Start: 12-15-2023 End: 12-15-2023 ambulatory DENI C DIDION Not Available Start: 12-05-2023 End: 12-05-2023 ambulatory NGA E JUANITO Facility:[facility] Start: 12-05-2023 End: 12-05-2023 Patient encounter procedure NGA E JUANITO [facility] [place] Start: 11-28-2023 End: 11-28-2023 ambulatory NGA E JUANITO Facility:[facility] Start: 11-28-2023 End: 11-28-2023 Patient encounter procedure NGA E JUANITO [facility] [place] Start: 11-21-2023 End: 11-21-2023 ambulatory NGA Tano JUANITO Facility: [facility] Start: 11-21-2023 End: 11-21-2023 Patient encounter procedure NGA Tano WILKINS [facility] [place] [place] Start: 11-16-2023 End: 11-16-2023 ambulatory RAJAT AGUILAR Not Available Start: 11-14-2023 End: 11-14-2023 ambulatory NGA Tano JUANITO Facility: [facility] Start: 11-14-2023 End: 11-14-2023 Patient encounter procedure NGA Tano WILKINS [facility] [place] Start: 11-10-2023 End: 11-10-2023 ambulatory TAN BAGLEY Not Available Start: 11-08-2023 End: 11-08-2023 ambulatory DENI C DIDION Not Available Start: 11-07-2023 End: 11-07-2023 ambulatory NGA Tano JUANITO Facility: [facility] Start: 11-07-2023 End: 11-07-2023 Patient encounter procedure NGA Tano WILKINS [facility] [place] Start: 10-31-2023 End: 10-31-2023 ambulatory NGA Tano WILKINS Facility: [facility] Start: 10-31-2023 End: 10-31-2023 Patient encounter procedure NGA Tano WILKINS [facility] [place] Start: 10-20-2023 End: 10-20-2023 ambulatory DENI C DIDION Not Available Start: 10-13-2023 End: 10-13-2023 ambulatory RAJAT AGUILAR Not Available Start: 09-28-2023 End: 09-28-2023 ambulatory DENI C DIDION Not Available Start: 08-02-2023 End: 08-02-2023 ambulatory CHAVA QUIROZ [facility] Start: 06-23-2023 End: 06-23-2023 ambulatory ANDRE FUNES Facility:[facility] Start: 06-23-2023 End: 06-23-2023 Office outpatient visit 15 minutes Andre Funes MD Work Phone: Hematology/Oncology Comment on above: MENDEZ (nonalcoholic s teatohepatitis) (Primary Dx); 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); Thrombocytopenia due to hypersplenism; Thrombocytopenia (HCC); Diabetic gastroparesis (HCC) (HCC) Start: 06-22-2023 End: 06-22-2023 ambulatory Soheila Delgado Other [facility] Other Start: 06-22-2023 Telephone encounter Soheila Delgado [facility] Start: 06-21-2023 End: 06-21-2023 ambulatory MAHAMED [facility] Start: 06-01-2023 End: 06-01-2023 ambulatory LUL Kothari PRINTY Not Available Start: 05-24-2023 End: 05-24-2023 ambulatory LUL Kothari PRINTY Not Available Start: 05-03-2023 End: 05-03-2023 ambulatory NGA WILKINS Facility:[facility] Start: 05-03-2023 End: 05-03-2023 Patient encounter procedure NAG WILKINS [facility] Start: 04-12-2023 End: 04-12-2023 ambulatory Rodger Davila Other [facility] Other Start: 04-12-2023 Telephone encounter Rodger Hyde ck [facility] Start: 04-05-2023 End: 04-05-2023 ambulatory Rodger Davila Other [facility] Other Start: 04-05-2023 Office outpatient vi sit 15 minutes Rodger Davila [facility] Start: 03-17-2023 ambulatory NGA WILKINS Facility :[facility] Start: 10-19-2022 End: 10-20-2022 ambulatory SHAKIRA RONALDO Facility:[facility] Start: 10-15-2022 ambulatory SHAKIRA RONALDO Facility: [facility] Start: 10-06-2022 End: 10-06-2022 ambulatory SHAKIRA RONALDO Facility:[facility] Start: 09-28-2022 End: 09-28-2022 ambulatory Rodger Davila Other [facility] Other Start: 09-28-2022 Office outpatient vi sit 15 minutes Rodger Davila [facility] Start: 06-25-2022 End: 06-25-2022 Office outpatient visit 15 minutes Andre Funes MD Work Phone: Hematology/Oncology Comment on above: Cirrhosis of liver n ot due to alcohol (HCC) (Primary Dx); MENDEZ (nonalcoholic steatohepatitis); Thrombocytopenia due to hypersplenism Start: 06-22-2022 End: 06-22-2022 ambulatory Rodger Davila Other [facility] Other Start: 06-22-2022 Office outpatient vi sit 15 minutes Rodger Davila [facility] Start: 06-10-2022 End: 06-11-2022 ambulatory SHAKIRA RONALDO Facility:[facility] Start: 05-22-2022 End: 05-22-2022 ambulatory SHAKIRA HIGGINS Facility:[facility] Start: 04-01-2022 End: 04-01-2022 ambulatory Rodger Davila Other [facility] Other Start: 04-01-2022 Telephone encounter Rodger Hyde [facility] Start: 03-16-2022 End: 03-16-2022 ambulatory SHAKIRA RONALDO Facility:[facility] Start: 03-15-2022 End: 03-16-[address] DOCTOR RAMOS Facility:[facility] Start: 03-04-2022 End: 03-04-2022 ambulatory Rodger Davila Other [facility] Other Start: 03-04-2022 Office outpatient ne w 45 minutes Rodger [facility] Start: 02-16-2022 End: 03-01-2022 ambulatory UNKNOWN PROVIDER [facility] Start: 12-17-2021 End: 12-17-2021 ambulatory Andre Funes MD Work Phone: Hematology/Oncology Comment on above: Thrombocytopenia due to hypersplenism (Primary Dx); 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); MENDEZ (nonalcoholic steatohepatitis) Start: 12-17-2021 End: 12-17-2021 Patient encounter procedure Andre Funes MD Work Phone: [facility] Start: 11-25-2021 End: 11-26-2021 ambulatory SHAKIRA HIGGINS Facility:[facility] Start: 05-17-2021 End: 05-17-[address] JENNIFER TURNER Facility:[facility] Start: 08-05-2020 End: 08-05-2020 Patient encounter procedure External Provider [facility] Start: 08-05-2020 Results Only External Provider Exter nal-NonCCF Procedures Date Procedure Procedure Detail Performing Clinician Start: 12-10-2020 Adult depression screening assessment Andre Funes MD Work Phone: Start: 09-24-2020 Esophagogastroduodenoscopy NGA Gao Comment on above: with Right Hemorrhoidectomy Start: 08-05-2020 EXTERNAL LAB External Provider Start: 04-09-2020 Colonoscopy NGA JUANITO Bilateral tubal ligation SAMMY BARR JUANITO Bilateral tubal ligation SAMMY BARR JUANITO Bile duct stone removal MILTON IFKEN JUANITO Bile duct stone removal MILTON IFKEN JUANITO section NGA MONTOYA Laparoscopic cholecystectomy NGA WILKINS Tonsillectomy and adenoidectomy NGA WILKINS Plan of Treatment Date Care Activity Detail Author Start: 06-25-2025 DIABETES SCREEN DIABETES SCREEN [facility] Start: 12-17-2024 DIABETES SCREEN DIABETES SCREEN [facility] Start: 06-23-2024 End: 09-22-2024 [id number] [Mass/volume] in Serum or Plasma ALPHA FETOPROTEIN BL Lab Routine MENDEZ (nonalcoholic steatohepatitis) 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 Work Phone: Comment on above: Expected: 06/23/2024 (Approximate), Expires: 06/23/2024 Start: 06-25-2023 End: 06-25-2023 CBC W Auto Differential panel - Blood CBC + DIFF Lab Routine 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 Expected: 06/25/2023 (Approximate), Expires: 06/25/[address] 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 Work Phone: Comment on above: Expected: 06/25/2023 (Approximate), Expires: 06/25/2023 Start: 06-25-2023 End: 07-25-2023 US ABD LIVER VASCULAR US ABD LIVER VASCULAR Radiology Routine 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 Expected: 06/25/2023 (Approximate), Expires: 07/25/[address] 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 Work Phone: Comment on above: Expected: 06/19/2022 (Approximate), Expires: 12/17/2022 Start: 06-19-2022 End: 12-17-2022 Cobalamin (Vitamin B12) [Mass/volume] in Serum or Plasma VITAMIN B12 BLOOD Lab Routine 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) MENDEZ (nonalcoholic steatohepatitis) Expected: 06/19/2022 (Approximate), Expires: 12/17/[address] 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 Scheduled Provider:NGA WILKINS PA-C Location:[facility] Appointment Type:URO Procedure 30 min Appointment Date:01/02/2024 11:20:00 AM Scheduled Provider:NGA WILKINS PA-C Location:[facility] Appointment Type:URO Procedure 30 min [facility] Evaluation + Plan note Future Appointments Appointment Date:11/28/2023 11:20:00 AM Scheduled Provider:NGA WILKINS PA-C Location:[facility] [place] Appointment Type:URO Procedure 30 min Appointment Date:12/05/2023 11:20:00 AM Scheduled Provider:NGA WILKINS PA-C Location:[facility] [place] Appointment Type:URO Procedure 15 min Appointment Date:12/19/2023 11:20:00 AM Scheduled Provider:NGA WILKINS PA-C [facility] Type:URO Procedure 30 min Appointment Date:01/02/2024 11:20:00 AM Scheduled Provider:N[facility] WILKINS PA-C [facility] Procedure 30 min [facility] evaluation + Plan note Future Appointments Appointment Date:12/05/2023 11:20:00 AM Scheduled Provider:NGA WILKINS PA-C Location:[facility] [place] Appointment Type:URO Procedure 15 min Appointment Date:12/19/2023 11:20:00 AM Scheduled Provider:NGA WILKINS PA-C Location:[facility] [place] Appointment Type:URO Procedure 30 min Appointment Date:01/02/2024 11:20:00 AM Scheduled Provider:NGA WILKINS PA-C [facility] Type:URO Procedure 30 min [facility] Evaluation + Plan note Future Appointments Appointment Date:12/19/2023 11:20:00 AM Scheduled Provider:NGA WILKINS PA-C [facility] Appointment Type:URO Procedure 30 min Appointment Date:01/02/2024 11:20:00 AM Scheduled Provider:NGA WILKINS PA-C Location:[facility] [place] Appointment Type:URO Procedure 30 min [facility] evaluation + Plan note Future Appointments Appointment Date:02/29/2024 08:20:00 AM Scheduled Provider:NGA WILKINS PA-C Location:[facility] [place] Appointment Type:URO Office Visit [facility] evaluation note* Diagnosis 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) Cirrhosis of liver without mention of alcohol MENDEZ (nonalcoholic steatohepatitis) Other chronic nonalcoholic liver disease [facility] Diagnosis 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)- Primary Cirrhosis of liver without mention of alcohol MENDEZ (nonalcoholic steatohepatitis) Other chronic nonalcoholic liver disease 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 thrombocytopenia [facility] in this [facility] Other Evaluation note* Diagnosis MENDEZ (nonalcoholic steatohepatitis)- Primary Other chronic nonalcoholic liver disease 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) Cirrhosis of liver without mention of alcohol 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 thrombocytopenia Thrombocytopenia (HCC) Thrombocytopenia, unspecified Diabetic gastroparesis (HCC) (HCC) Type II or unspecified type diabetes mellitus with neurological manifestations, not stated as uncontrolled documented in this encounter [facility] general Narrative - Reported* Type Description Date Surgical History tonsillectomy and adenoidectomy Surgical History C section Surgical History tubal ligation Surgical History cholecystectomy Hospitalization History SEE ABOVE [facility] Par8[facility] Other Hospital Discharge instructions No data available for this section [facility] Progress note No data available for this section [facility] reason for referral (narrative)* Diagnostic Procedure Only (Routine) - Pending Review Specialty Diagnoses / Procedures Referred By Mony hinojosa Referred To Contact US IMAGING Diagnoses 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) MENDEZ (nonalcoholic steatohepatitis) Procedures US ABD RT UPPER QUADRANT US ABDOMINAL REAL TIME W/IMAGE LIMITED Andre Funes MD [address] [place] [address] [place] [address] Us Imaging Referral ID Status Reason Start Date Expiration Date Visits Requested Visits Authorized [id number] Pending Review Auto-Generat ed Referral 06/19/2022 01/16/2023 1 1 [facility] for referral (narrative)* Diagnostic Procedure Only (Routine) - Pending Review Specialty Diagnoses / Procedures Referred By Mony hinojosa Referred To Contact US IMAGING Diagnoses 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 Procedures US DOPPLER COMPLETE DUP-SCAN ARTL PATRICK ABDL/PEL/SCROT&/RPR ORGN COM Andre Funes MD [address] [place] [address] [place] [address] Us Imaging Referral ID Status Reason Start Date Expiration Date Visits Requested Visits Authorized [id number] Pending Review Auto-Generat ed Referral 06/25/2023 07/25/2023 1 1 * Diagnostic Procedure Only (Routine) - Pending Review Specialty Diagnoses / Procedures Referred By Contac t Referred To Contact US IMAGING Diagnoses 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 Procedures US ABD LIVER VASCULAR US ABDOMINAL REAL TIME W/IMAGE LIMITED DUP-SCAN ARTL PATRICK ABDL/PEL/SCROT&/RPR ORGN COM Andre Funes MD [address] [place] [address] [place] [address] Us Imaging Referral ID Status Reason Start Date Expiration Date Visits Requested Visits Authorized [id number] Pending Review Auto-Generat ed Referral 06/25/2023 07/25/2023 1 1 [facility] for referral (narrative)* Diagnostic Procedure Only (Routine) - Pending Review Specialty Diagnoses / Procedures Referred By Contac t Referred To Contact US IMAGING Diagnoses MENDEZ (nonalcoholic steatohepatitis) 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 Procedures US ABD RIGHT UPPER QUADRANT US ABDOMINAL REAL TIME W/IMAGE LIMITED Andre Funes MD [address] [place] [address] [place] [address] [place] [address] Referral ID Status Reason Start Date Expiration Date Visits Requested Visits Authorized [id number] Pending Review Auto-Generat ed Referral 06/23/2023 07/22/2024 1 1 [facility] for visit NarrativePT HERE AT REQ OF SHAKIRA HIGGINS FOR GERD, (REFERRAL NOTE RECEIVED)[place] Other Summary Purpose Family History No Family [...] History Records FoundNo Family History Records Found Advance Directives No Advanced Directives Records FoundNo Advanced Directives Records FoundNo Advanced Directives Records FoundNo Advanced Directives Records FoundNo Advanced Directives Records FoundNo Advanced Directives Records FoundNo Advanced Directives Records FoundNo Advanced Directives Records Found Additional Source Comments INFORMATION SOURCE (unrecogn ized section and content) DATE CREATED AUTHOR 06/16/2019 [facility] DATE CREATED AUTHOR AUTHOR'S ORGANIZ ATION 06/03/2021 [facility] DATE CREATED AUTHOR AUTHOR'S ORGANIZ ATION [facility]/01/2022 [facility] DATE CREATED AUTHOR AUTHOR'S ORGANIZ ATION 10/29/2022 [facility] DATE CREATED AUTHOR AUTHOR'S ORGANIZ ATION 06/26/2023 [facility] DATE CREATED AUTHOR AUTHOR'S ORGANIZ ATION 08/03/2023 [facility] DATE CREATED AUTHOR AUTHOR'S ORGANIZ ATION 01/03/2024 [facility] DATE CREATED AUTHOR AUTHOR'S ORGANIZ ATION 01/31/2024 [facility] EPIC Source Comments (unrecognize d section and content) In the event this informatio n is protected by the Federal Confidentiality of Alcohol and Drug Abuse Patient Records regulations: The Federal rules restrict any use of the information to criminally investigate or prosecute any alcohol or drug abuse patient.[facility] the event this information is protected by the Federal Confidentiality of Alcohol and Drug Abuse Patient Records regulations: The Federal rules restrict any use of the information to criminally investigate or prosecute any alcohol or drug abuse patient.[facility] the event this information is protected by the Federal Confidentiality of Alcohol and Drug Abuse Patient Records regulations: The Federal rules restrict any use of the information to criminally investigate or prosecute any alcohol or drug abuse patient.[facility] Hospital[facility] the event this information is protected by the Federal Confidentiality of Alcohol and Drug Abuse Patient Records regulations: The Federal rules restrict any use of the information to criminally investigate or prosecute any alcohol or drug abuse patient.[facility] Reason for Visit (unrecogniz ed section and content) Reason Comments Thrombocytopenia Reason Comments Thrombocytopenia 6 month follow up Care Teams (unrecognized sec tion and content) Flake Miller Helper Relationship Specialty Start Date End Date Shakira Higgins CNP [address] [place] [address] PCP - General Internal Medicine 08/01/20 Flake Miller Helper Relationship Specialty Start Date End Date Shakira Higgins CNP [address] [place] [address] PCP - General Internal Medicine 08/01/20 FOR [...] BE BASED ON THE PRIMARY CLINICAL RECORDS. [facility]. provides no warranty or guarantee of the accuracy or completeness of information in this document.
== END 2024-01-31 08:01 | disposition home or self-care (01) ==
LOC: LAB 08:00
PROVIDERS: PCP Nurse Practitioner Family; Visit Provider Nurse Practitioner Family
DX: Z00.00 Encounter for general adult medical examination without abnormal findings (principal)
CPT/HCPCS: G0328

== ENCOUNTER 2024-01-31 13:29 | Outpatient (OUT) | payer OTHER, SELFPAY ==
--- NOTE | 2024-01-31 | XR_ITS ---
The [address] [address] Patient Name: ALBINO BARBOSA MRN: [facility]:[id number] date: 1960 Sex: F Assigned Patient Location: Current Patient Location: LAB Accession/Order Number: [id number] Exam Date: 01/31/2024 13:36 Report Date: 02/01/2024 16:08 At the request of: ANTHONY RASHEED Procedure: XR foot LT min 3V PROCEDURE: XR foot LT min 3V COMPARISON: 12/27/2023 HISTORY: LEFT FOOT PAIN FINDINGS: BONES:Stable healing fracture neck of the fourth metatarsal. Stable healing complex displaced fracture involving the diaphysis and neck of the fifth metatarsal. Interval periosteal reaction and bone formation with partial bony bridging. No new fracture or dislocation. Moderate enthesopathic spurring of the calcaneus SOFT TISSUES:Lateral forefoot soft tissue swelling EFFUSION:None visible. OTHER: Negative. XR/XR foot LT min 3V IMPRESSION: Stable healing fourth and fifth metatarsal fractures Electronically authenticated by: KAILEE AGUSTIN Date: 02/01/2024 16:08
== END 2024-01-31 13:30 | disposition home or self-care (01) ==
LOC: EC 13:29
PROVIDERS: PCP Nurse Practitioner Family; Visit Provider Podiatrist Foot & Ankle Surgery
DX: M79.672 Pain in left foot (principal); S92.345D Nondisplaced fracture of fourth metatarsal bone, left foot, subsequent encounter for fracture with routine healing; S92.355D Nondisplaced fracture of fifth metatarsal bone, left foot, subsequent encounter for fracture with routine healing
CPT/HCPCS: 73630

== ENCOUNTER 2024-02-25 10:51 | Emergency (ER) | payer OTHER, SELFPAY ==
[2024-02-25 10:54] VITALS: BP 181/82; PULSE 100; TEMP 34.6; O2SAT 100; BMI 33.8
--- NOTE | 2024-02-25 11:05 | ECG_ITS ---
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
--- NOTE | 2024-02-25 11:05 | XR_ITS ---
The [address] [address] Patient Name: ALBINO BARBOSA MRN: [id number]:[id number] date: 1960 Sex: F Assigned Patient Location: ER Current Patient Location: ED.MAIN Accession/Order Number: [id number] Exam Date: 02/25/2024 11:27 Report Date: 02/25/2024 13:25 At the request of: JAKE FLOWERS Procedure: XR chest 1V EXAM: XR chest 1V at 1119 hours HISTORY: weak COMPARISON: 03/16/2021 TECHNIQUE: AP upright portable chest x-ray FINDINGS: The previous identified infiltrates in the lungs have cleared. The left lung base is partially obscured, and appears to be related to the patient's body habitus. There is no clear evidence of a focal infiltrate, effusion or pneumothorax. The heart is at the upper limits of normal in size, and the vasculature is not distended. The osseous structures are grossly intact. XR/XR chest 1V IMPRESSION: Interval clearing of the lungs. There is no apparent acute infiltrate or cardiac decompensation at this time. Electronically authenticated by: ANTHONY LEVI Date: 02/25/2024 13:25
--- NOTE | 2024-02-25 11:06 | ED.GENADUL1 ---
HPI HPI - General Adult General Chief complaint: Altered Mental Status Stated complaint: GENERAL WEAKNESS Time Seen by Provider: 02/25/24 11:01 Source: patient Mode of arrival: walk-in Limitations: no limitations History of Present Illness HPI narrative: 64-year-old female presents for hypoglycemia. Last night the last thing she remembers was talking on the phone at about 11:00 PM and then she woke up on the floor today. Her blood sugar was found to be low and she was given some peanut butter. Paramedics brought her in. She noted some bruises on her legs but she does not have any pain there and she does not have a headache or chest pain. She feels cold. Related Data Allergies Allergy/AdvReac Type Severity Reaction Status Date / Time No Known Drug Allergies Allergy Verified 02/25/24 10:54 Opioid HPI Opioid Management Most Recent Opioid Data: No Data to Display Review of Systems ROS Narrative A ten point review of systems is negative except as noted above. PFSH PFSH Social History Little interest or pleasure in doing things: not at all Feeling down, depressed, or hopeless: not at all Exam Narrative Exam Narrative: Nurses note and vital signs reviewed and patient is not hypoxic. General: The patient is in no acute respiratory distress. Skin: Warm, dry, no pallor noted. She has bruises on her bilateral knees. Head: Normocephalic, atraumatic Eye: Normal conjunctiva, no drainage, EOMI. PERRL Ears, Nose, Mouth, and Throat: oral mucosa is moist. Nares patent. Cardiovascular: Regular Rate and Rhythm Respiratory: Patient is in no distress, no accessory muscle use, lungs are clear to auscultation, no wheezing, rales or rhonchi Back: non-tender GI: Soft and nontender Musculoskeletal: She has no tenderness in her arms or legs. Hips knees and ankles have full range of motion. Neurological: A&O x4, normal speech. Psychiatric: Cooperative Constitutional Vital Signs, click to edit/add: Last Vital Signs Temp 98.2 F 02/25/24 13:42 Pulse 84 02/25/24 13:53 Resp 18 02/25/24 10:54 BP 164/82 H 02/25/24 13:53 Pulse Ox 98 02/25/24 13:53 O2 Del Method Room Air 02/25/24 10:54 Course Vital Signs Vital signs: Vital Signs Temperature 94.2 F L 02/25/24 10:54 Pulse Rate 100 H 02/25/24 10:54 Respiratory Rate 18 02/25/24 10:54 Blood Pressure 181/82 H 02/25/24 10:54 Pulse Oximetry 100 02/25/24 10:54 Oxygen Delivery Method Room Air 02/25/24 10:54 Temperature 98.2 F 02/25/24 13:42 Pulse Rate 84 02/25/24 13:53 Respiratory Rate 18 02/25/24 10:54 Blood Pressure 164/82 H 02/25/24 13:53 Pulse Oximetry 98 02/25/24 13:53 Oxygen Delivery Method Room Air 02/25/24 10:54 Medical Decision Making MDM Narrative Medical decision making narrative: The patient presented with hypothermia and warm blankets and lashay hugger were applied. Temperatures been improved. She was hypoglycemic and that has been remedied as well. She was able to eat some food here. She has elevated myoglobin and she is being given IV fluids. She will be admitted for observation and IV fluids. Findings are discussed with the patient. I do not suspect sepsis Differential Diagnosis Differential Diagnosis: Hypothermia, hypoglycemia, sepsis Lab Data Lab results reviewed: Yes I reviewed the patient's lab results Labs: Lab Results 02/25/24 02/25/24 02/25/24 Range/Units 11:40 13:01 13:17 WBC 6.1 (4.0-11.0) 10^3/uL RBC 4.90 (4.20-5.40) 10^6/uL Hgb 12.6 (12.0-16.0) g/dL Hct 40.8 (36.0-48.0) % MCV 83.3 (81.0-99.0) fL MCH 25.7 L (26.7-34.0) pg MCHC 30.9 (29.9-35.2) g/dL RDW 16.8 H (11.0-15.0) % Plt Count 126 L (150-450) 10^3/uL MPV 11.1 (9.5-13.5) fL Seg Neuts % (Manual) 86.0 H (43.0-75.0) Band Neutrophils % 4.0 (0-5) % Lymphocytes % (Manual) 10.0 L (20.5-60.0) % Monocytes % (Manual) 0.0 L (1.7-12.0) % Eosinophils % (Manual) 0.0 L (0.9-7.0) % Basophils % (Manual) 0.0 L (0.2-2.0) % Neutrophils # (Manual) 5.24 (1.4-6.5) 10^3/uL Band Neutrophils # 0.2 (0.0-0.3) 10^3/uL Lymphocytes # (Manual) 0.61 L (1.20-3.80) 10^3/uL Monocytes # (Manual) 0.00 L (0.30-0.80) 10^3/uL Eosinophils # (Manual) 0.00 (0.00-0.70) 10^3/uL Basophils # (Manual) 0.00 (0.00-0.10) 10^3/uL Sodium 143 (136-145) mmol/L Potassium 3.3 L (3.5-5.1) mmol/L Chloride 104 (98-107) mmol/L Carbon Dioxide 25.4 (21.0-32.0) mmol/L Anion Gap 16.9 BUN 11.0 (7.0-18.0) mg/dL Creatinine 0.81 (0.55-1.02) mg/dL Est GFR ( Amer) >60 (>=60 mL/min/1.73m^2) Est GFR (Non-Af Amer) >60 (>=60 mL/min/1.73m^2) BUN/Creatinine Ratio 13.6 Glucose 58 L (74-106) mg/dL Calcium 8.9 (8.5-10.1) mg/dL Total Creatine Kinase 95 (26-192) U/L Myoglobin 280 H* (9-82) ng/mL Troponin I High Sens 7.7 (4.0-51.3) pg/mL TSH 0.058 L (0.358-3.740) uIU/mL Thyroxine (T4) 9.30 (4.80-13.90) ug/dL Urine Color Yellow (YELLOW) Urine Clarity Clear (CLEAR) Urine pH 6.0 (5.0-9.0) Ur Specific [place] 1.020 (1.005-1.025) Urine Protein Negative (NEG/TRACE) mg/dL Urine Glucose (UA) >=1000 A (NEGATIVE) mg/dL Urine Ketones Negative (NEGATIVE) mg/dL Urine Occult Blood Negative (NEGATIVE) Urine Nitrite Negative (NEGATIVE) Urine Bilirubin Negative (NEGATIVE) Urine Urobilinogen 1.0 (0.2-1.0) EU/dL Ur Leukocyte Esterase Negative (NEGATIVE) Urine RBC None seen (0-2) #/HPF Urine WBC None seen (NONE SEEN) #/HPF Ur Squamous Epith Cells Few A (NONE/RARE) #/LPF Urine Crystals None seen (None Seen) #/HPF Urine Bacteria Trace A (NONE SEEN) #/HPF Urine Casts None seen (NONE SEEN) #/LPF Urine Mucus Small A (NONE SEEN) Ur Culture Indicated? No Ethanol Quant 4 mg/dL POC Glucose 83 (74-106) mg/dL Imaging Data Chest x-ray: Radiologist's impression: ITS Impressions Chest X-Ray 02/25/24 11:05 IMPRESSION: Interval clearing of the lungs. There is no apparent acute infiltrate or cardiac decompensation at this time. Electronically authenticated by: ANTHONY LEVI Date: 02/25/2024 13:25 ECG Data Attestation: I personally reviewed and interpreted this ECG as follows: (EKG on my interpretation shows sinus rhythm with a rate of 83 and no acute findings) Critical Care Time Critical Care Time Critical Care Time: Yes Total Critical Care Time: 40 Attestation: Due to the high probability of sudden and clinically significant deterioration in the patient's condition he/she required the highest level of my preparedness to intervene urgently I provided critical care time including documentation time, medication orders and management, reevaluation, vital sign assessment, ordering and reviewing of lab tests, ordering and reviewing of x-ray studies, and admission orders. Aggregate critical care time is 40 minutes including only time during which I was engaged in work directly related to his/her care and did not include time spent treating other patients simultaneously. Discharge Plan Discharge Chief Complaint: Altered Mental Status Clinical Impression: Hypothermia, Hypoglycemia, Rhabdomyolysis Patient Disposition: Admitted as Observation Time of Disposition Decision: 13:52 Condition: Fair
--- OUTSIDE RECORDS SUMMARY | 2024-02-25 11:08 | XMS_ITS | CCD ---
Author Organization [facility] CliniSymd Care Team Providers Care Loan Representative Name Role Phone Shakira Higgins S Primary [...] Unavailable RONALDO, SHAKIRA S Primary Care Physician [phone] ABHYANKAR, ANDRE Referring Unavailable ABHYANKAR, ANDRE Attending Unavailable RONALDO, SHAKIRA S Primary Care Unavailable ABHYANKAR, ANDRE Referring Unavailable RONALDO, SHAKIRA S Primary Care Unavailable Soheila eDlgado Unavailable CHAVA QUIROZ Attending Unavailable BARAZIMAHAMED Attending [...] Attending Unavailable DIDION, DENI Peres Attending Unavailable SHELLIMARY JASMINE Attending Unavailable Allergies Allergy Classification Reported Allergen(s) Allergy Type Date of Onset Reaction(s) Facility Capsaicin / Turpentine (1 source) Capsaicin / Turpentine; Translations: [capsaicin topical] Drug Allergy [facility] (4 sources) Capsaicin; Translations: [CAPSAICIN] Drug Allergy [address] [facility] Repository (5 sources) Capsaicin Drug Allergy Unknown [facility] Other (8 sources) Capsaicin / Turpentine; Translations: [capsaicin topical] Drug Allergy [facility] (1 source) traZODone; Translations: [TRAZODONE] Drug Allergy [address] [place] [address] Repository (1 source) No Known Medication Allergies; Translations: [No Known Medication Allergies] Propensity to adverse reactions (disorder) [facility] Repository Medications Current Medications Medication Drug [...] colonoscopy, # 4 tab(s), Refills(s) 0, Pharmacy: [facility]/pharmacy #[id number], 157.5, cm, 03/18/20 13:44:00 EDT, Height/Length Dosing, 104.3, kg, 03/18/20 13:44:00 EDT, Weight Dosing Start Date: 03/18/20 Status: Ordered Comment on above: Take 20 mg by mouth. Breztri Aerosphere inhalation aerosol (9 sources) Start: 12-12-2023 take 2 puff(s) by inhalation twice daily [...] topical powder (7 sources) Polyene Antifungal Nystatin 288722 UNIT/GM 1 application Externally Twice a day Active Nystatin 108486 UNIT/GM 1 application Externally Twice a day [...] Start: 04-20-2023 take 2 tablets by mo [facility] every twelve hours PRIMIDONE ORAL Take 2 tablets by mouth every 12 hours. 0 04/20/2023 Active take 2 tablets by mo [facility] every twelve hours Primidone 50 MG 2 tablets Orally Twice a day Active Primidone 50 MG 1 TABLETS Orally 2 tablets in AM and 1 tablet in PM Active Comment on above: Take 2 tablets by mo [facility] every 12 hours. traZODone hydrochloride 100 mg oral tablet (20 sources) Serotonin Reuptake Inhibitor Start: 05-03-2023 traZODONE 100 mg Tab 100 mg = 1 tab(s), Daily Start Date: 05/03/23 Status: Ordered Start: 03-13-2020 take 1 tablet by jono once daily at bedtime traZODONE 50 mg Tab 50 mg = 1 tab(s), Oral, Once a day (at bedtime), Refills(s) 0 Start Date: 03/13/20 Status: Ordered Comment on above: TAKE 1 TABLET BY JONO EVERYDAY AT BEDTIME triamcinolone acetonide 1 mg/ml [...] Drug Class(es) Dates Sig (Normalized) Sig (Original) [id number] 200 actuat albuterol 0.09 mg/actuat metered dose [...] Start: 03-13-2020 take 1 capsule by mo ut once daily cholecalciferol 2000 intl units oral capsule 2,000 International_Unit = 1 cap(s), Oral, Daily Start Date: 03/13/20 Status: [facility] Vitamin D3 25 [...] NASE) 50 mcg/actuation nasal spray Use 1 [place] in each nostril as needed. 0 Active Comment on above: Use 1 [place] in each nostril as needed. FREESTYLE JEANNE 2 SENSOR kit (3 sources) Start: FREESTYLE JEANNE 2 SENSOR kit hydrocortisone 25 mg/ml topical cream (12 sources) Corticosteroid Start: hydrocortisone (ANUSOL-HC) 2.5 % rectal cream APPLY RECTALLY TWICE DAILY FOR 10 DAYS 0 06/03/2020 Active Start: 03-13-2020 take 25 mg rectal ro ewiiaapaayp twice daily Anusol-HC 25 mg rectal suppository [...] mg oral tablet (19 sources) l-Thyroxine Start: take 1 tablet by mouth once daily [...] Translations: [Nausea] Episodic Other aftercare (2 sources) halfway (current) use of insulin; Translations: [USP CURRENT USE OF INSULIN] Onset: 1 Episodic Other aftercare (2 sources) Other long term care social worker (current) drug therapy; Translations: [OTH CLINICAL TRIAL ASSOCIATE CURRENT DRUG THERAPY] Onset: 1 Episodic Other aftercare (1 source) termite control servicer (current) use of oral hypoglycemic drugs; Translations: [USP USE ORAL HYPOGLYCEMIC DX] Onset: 3 Episodic [...] 01-02-2024 Ambulatory Visit Summary Ambulatory Visit Summary FAMILIA RENETTA Gabriela :1960 Visit Date:01/02/2024 Ambulatory Visit Instructions Your [...] NGA WILKINS PA-C Where: [facility] [address] [place] [address]- You Need to Schedule the Following Appointments Follow Up with NGA WILKINS PA-C, URL When: Within 3 months Where: [address] [place] [address] Medications What How Much When Instructions Unchanged [...] Unchanged venlafaxi (more content not included)... Normal [facility] Urology Office/Clinic Noteon 01-02-2024 Urology Office/Clinic Note [...] up to a max of 10 Ordered: 95065 EMG anal/urethral sphincter no needle 46083 Biofeedback training, perineal muscles, anorectal 35737 Anorectal Manometry 67488 ELECTRICAL STIMULATION 55232 Urnls Dip Stick Auto w/o Microscopy POC 50346 Follow-up With When Contact Information JUANITO BREWER, NGA Freedman, YARA Within 3 months [address] [place] [address] Additional Instructions: Patient Education Overactive Bladder, Adult [...] Bedtime Humu (more content not included)... Normal [facility] Comment on above: Result Comment: Elec [...] NGA WILKINS PA-C Where: [facility] Normal [address] [place] [address]- \.br\ You Need to Schedule the Following Appointments\.br\ Follow Up with NGA WILKINS PA-C, URL When: In 2 weeks\.br\ Where:\.br\ [address]br\ [place] [address]\.br\ \.br\ Medications\.br\ What How Much When Instructions\.br\ [...] provider.\.br\ Document Revised: 09/17/2021 Document Reviewed: 09/17/2021 [employer] Patient Education ? 2022 [employer].br\ \.br\ [facility] Interdisciplinary Note - Soc ial Workeron 12-05-2023 Interdisciplinary Note - Material Clerk Interdisciplinary Note - Material Clerk Consult for positive depression screen received. Chart review completed and it was noted that this consult has been received in error as patient's depression screen score was 0. SW will remain available. Normal [facility] Urology Office/Clinic Noteon 12-05-2023 Urology Office/Clinic [...] Urnls Dip Stick Auto w/o Microscopy POC 65724 Follow-up With When Contact Information NGA WILKINS PA-C, URL In 2 weeks [address] [place] [address] Additional Instructions: Patient Education Kegel [...] mg= 1 cap (more content not included)... [facility] Comment on above: Result [...] NGA WILKINS PA-C Where: [facility] Invalid Interpretation Code [address] [place] [address]- \.br\ Tuesday 11:20 AM EDT \.br\ With: NGA WILKINS PA-C\.br\ Where: [facility] Urology Office/Clinic Noteon 11-28-2023 Urology Office/Clinic Note [...] and discuss other options, [facility]. Pt prefers options #1. Follow up 1 week for PFPT #4 or sooner if needed. Pt understands and agrees with plan. Follow-up With When Contact Information JUANITO BREWER, NGA Freedman, URL [address] [place] [address] Additional Instructions: 1 week PFPT #4 Patient [...] Daily Magdaleno (more content not included)... Normal [facility] Comment on above: Result Comment: Elec [...] NGA WILKINS PA-C Where: [facility] Invalid Interpretation Code [address] [place] [place] [address]- \.br\ Tuesday 11:20 AM EDT \.br\ With: NGA WILKINS PA-C\.br\ Where: [facility] Urology Office/Clinic Noteon 11-21-2023 Urology Office/Clinic [...] in 1 week(s) for session #3 Ordered: 41229 EMG anal/urethral sphincter no needle 54609 Biofeedback training, perineal muscles, anorectal 28040 Anorectal Manometry 97535 ELECTRICAL STIMULATION 85775 Urnls Dip Stick Auto w/o Microscopy POC 05782 Follow-up With When Contact Information JUANITO BREWER, NGA Freedman, URL In 1 week [address] [place] [place] [address] Additional Instructions: Patient Education Overactive [...] Use:. Cigarett (more content not included)... Normal [facility] Comment on above: Result Comment: Elec tronically Signed By: NGA WILKINS PA-C\.br\Date and Time Signed: 11/21/23 12:27 EDT Consent for Procedure/Surger yon 11-15-2023 Consent for Procedure/Surgery [id number]#1.00 TIFF Normal [facility] EMG Electromyographyon 11-14 EMG Electromyography [id number]#1.00 TIFF Normal [facility] Ambulatory Visit Summaryon 0 11-14-2023 Ambulatory [...] NGA WILKINS PA-C Where: [facility] Invalid Interpretation Code [address] [place] [address]- \.br\ Tuesday 11:20 AM EDT \.br\ With: NGA WILKINS PA-C\.br\ Where: [facility] Patient Educationon 11-14-19 Patient Education Obstetrics and [...] health care provider. General instructions ? Take nxpv-dmh-macmtby and prescription medicines only as told by [...] monitor yo (more content not included)... Normal [facility] Urology Office/Clinic Noteon 11-14-2023 Urology Office/Clinic [...] in 1 week(s) for session #2 Ordered: 48954 EMG anal/urethral sphincter no needle 84346 Biofeedback training, perineal muscles, anorectal 72698 Anorectal Manometry 19780 ELECTRICAL STIMULATION 05847 Urnls Dip Stick Auto w/o Microscopy POC 56453 Urnls Dip Stick Auto w/o Microscopy POC 64938 Follow-up With When Contact Information NGA WILKINS PA-C, YARA In 1 week [address] [place] [address] Additional Instructions: Patient Education Overactive [...] or more (more content not included)... Normal [facility] Comment on above: Result Comment: Elec tronically Signed By: JUANITO BREWER, NGA Freedman\.br\Date and Time Signed: 11/14/23 12:44 EDT Office Visiton 08-02-2023 Follow-up visit [id number] Renetta Barbosa 1960 F Date Provider Department Center 08/02/2023 CHAVA NUNES [facility] Family History Problem Relation Age of Onset Diabetes Mother Lung cancer Father Breast cancer Maternal Grandmother Family Status - Relation Status Age at Mother Father Maternal Grandmother Level of Service:16283 NC OFFICE/OUTPATIENT NEW MODERATE MDM 45 MINUTES Normal [facility] CBC W Auto Differential pane l (Bld)on 06-23-2023 Basophils (Bld) [#/Vol] 0.03 10*3/uL Normal <0.11 [facility] Comment on above: Order Comment: Speci men Type: BLOOD SPECIMEN Ordering Facility: [facility] Address: [address] [place] [address] Performed By: #### 5 7021-8 #### [facility] CLIA [id number] [address] [place] [address] 20415 Basophils/100 WBC (Bld) 0.5 % Normal [facility] Comment on above: Order Comment: Speci men Type: BLOOD SPECIMEN Ordering Facility: [facility] Address: [address] [place] [address] Performed By: #### 5 7021-8 #### [facility] CLIA [id number] [address] [place] [address] 30158 Differential cell count method Nom (Bld) Auto Normal [facility] Comment on above: Order Comment: Speci men Type: BLOOD SPECIMEN Ordering Facility: [facility] Address: [address] [place] [address] Performed By: #### 5 7021-8 #### [facility] CLIA [id number] [address] [place] [address] 07458 Eosinophils (Bld) [#/Vol] 0.06 10*3/uL Normal <0.46 [facility] Comment on above: Order Comment: Speci men Type: BLOOD SPECIMEN Ordering Facility: [facility] Address: [address] [place] [address] Performed By: #### 5 7021-8 #### [facility] CLIA [id number] [address] [place] [address] 10443 Eosinophils/100 WBC (Bld) 1.0 % Normal [facility] Comment on above: Order Comment: Speci men Type: BLOOD SPECIMEN Ordering Facility: [facility] Address: [address] [place] [address] Performed By: #### 5 7021-8 #### [facility] CLIA [id number] [address] [place] [address] 78049 Erythrocyte distribution width (RBC) [Ratio] 16.0 % High 11.5-15.0 [facility] Comment on above: Order Comment: Speci men Type: BLOOD SPECIMEN Ordering Facility: [facility] Address: [address] [place] [address] Performed By: #### 5 7021-8 #### [facility] CLIA [id number] [address] [place] [address] Hematocrit (Bld) [Volume fraction] 43.6 % Normal 36.0-46.0 [facility] Comment on above: Order Comment: Speci men Type: BLOOD SPECIMEN Ordering Facility: [facility] Address: [address] [place] [address] Performed By: #### 5 7021-8 #### [facility] CLIA [id number] [address] [place] [address] 29595 Hemoglobin (Bld) [Mass/Vol] 13.7 g/dL Normal 11.5-15.5 [facility] Comment on above: Order Comment: Speci men Type: BLOOD SPECIMEN Ordering Facility: [facility] Address: [address] [place] [address] Performed By: #### 5 7021-8 #### [facility] CLIA [id number] [address] [place] [address] 87821 Immature granulocytes (Bld) [#/Vol] 10*3/uL Normal <0.10 [facility] Comment on above: Order Comment: Speci men Type: BLOOD SPECIMEN Ordering Facility: [facility] Address: [address] [place] [address] Performed By: #### 5 7021-8 #### [facility] CLIA [id number] [address] [place] [address] 16280 Immature granulocytes/100 WBC (Bld) 0.3 % Normal [facility] Comment on above: Order Comment: Speci men Type: BLOOD SPECIMEN Ordering Facility: [facility] Address: [address] [place] [address] Performed By: #### 5 7021-8 #### [facility] CLIA [id number] [address] [place] [address] 59321 Lymphocytes (Bld) [#/Vol] 1.03 10*3/uL Normal 1.00-4.00 [facility] Comment on above: Order Comment: Speci men Type: BLOOD SPECIMEN Ordering Facility: [facility] Address: [address] [place] [address] Performed By: #### 5 7021-8 #### [facility] CLIA [id number] [address] [place] [address] 78846 Lymphocytes/100 WBC (Bld) 17.3 % Normal [facility] Comment on above: Order Comment: Speci men Type: BLOOD SPECIMEN Ordering Facility: [facility] Address: [address] [place] [address] Performed By: #### 5 7021-8 #### [facility] CLIA [id number] [address] [place] [address] 74690 MCH (RBC) [Entitic mass] 26.7 pg Normal 26.0-34.0 [facility] Comment on above: Order Comment: Speci men Type: BLOOD SPECIMEN Ordering Facility: [facility] Address: [address] [place] [address] Performed By: #### 5 7021-8 #### [facility] CLIA [id number] [address] [place] [address] 81473 MCHC (RBC) [Mass/Vol] 31.4 g/dL Normal 30.5-36.0 [facility] Comment on above: Order Comment: Speci men Type: BLOOD SPECIMEN Ordering Facility: [facility] Address: [address] [place] [address] Performed By: #### 5 7021-8 #### [facility] CLIA [id number] [address] [place] [address] 89408 MCV (RBC) [Entitic vol] 85.0 fL Normal 80.0-100.0 [facility] Comment on above: Order Comment: Speci men Type: BLOOD SPECIMEN Ordering Facility: [facility] Address: [address] [place] [address] Performed By: #### 5 7021-8 #### [facility] CLIA [id number] [address] [place] [address] 56673 Monocytes (Bld) [#/Vol] 0.35 10*3/uL Normal <0.87 [facility] Comment on above: Order Comment: Speci men Type: BLOOD SPECIMEN Ordering Facility: [facility] Address: [address] [place] [address] Performed By: #### 5 7021-8 #### [facility] CLIA [id number] [address] [place] [address] 32721 Monocytes/100 WBC (Bld) 5.9 % Normal [facility] Comment on above: Order Comment: Speci men Type: BLOOD SPECIMEN Ordering Facility: [facility] Address: [address] [place] [address] Performed By: #### 5 7021-8 #### [facility] CLIA [id number] [address] [place] [address] 40444 Neutrophils (Bld) [#/Vol] 4.46 10*3/uL Normal 1.45-7.50 [facility] Comment on above: Order Comment: Speci men Type: BLOOD SPECIMEN Ordering Facility: [facility] Address: [address] [place] [address] Performed By: #### 5 7021-8 #### [facility] CLIA [id number] [address] [place] [address] 65231 Neutrophils/100 WBC (Bld) 75.0 % Normal [facility] Comment on above: Order Comment: Speci men Type: BLOOD SPECIMEN Ordering Facility: [facility] Address: [address] [place] [address] Performed By: #### 5 7021-8 #### [facility] CLIA [id number] [address] [place] [address] 02536 Nucleated RBC (Bld) [#/Vol] 10*3/uL Normal <0.01 [facility] Comment on above: Order Comment: Speci men Type: BLOOD SPECIMEN Ordering Facility: [facility] Address: [address] [place] [address] Performed By: #### 5 7021-8 #### [facility] CLIA [id number] [facility] [place] [address] Nucleated RBC/100 WBC (Bld) [Ratio] 0.0 /100 WBC Normal [facility] Comment on above: Order Comment: Speci men Type: BLOOD SPECIMEN Ordering Facility: [facility] Address: [address] [place] [address] Performed By: #### 5 7021-8 #### [facility] CLIA [id number] [address] [place] [address] Platelet mean volume (Bld) [Entitic vol] 11.9 fL Normal 9.0-12.7 [facility] Comment on above: Order Comment: Speci men Type: BLOOD SPECIMEN Ordering Facility: [facility] Address: [address] [place] [address] Performed By: #### 5 7021-8 #### [facility] CLIA [id number] [address] [place] [address] 60758 Platelets (Bld) [#/Vol] 140 10*3/uL Low 150-400 [facility] Comment on above: Order Comment: Speci men Type: BLOOD SPECIMEN Ordering Facility: [facility] Address: [address] [place] [address] Performed By: #### 5 7021-8 #### [facility] CLIA [id number] [address] [place] [address] 30181 RBC (Bld) [#/Vol] 5.13 10*6/uL Normal 3.90-5.20 [facility] Comment on above: Order Comment: Speci men Type: BLOOD SPECIMEN Ordering Facility: [facility] Address: [address] [place] [address] Performed By: #### 5 7021-8 #### [facility] CLIA [id number] [address] [place] [address] 35704 WBC (Bld) [#/Vol] 5.95 10*3/uL Normal 3.70-11.00 [facility] Comment on above: Order Comment: Speci men Type: BLOOD SPECIMEN Ordering Facility: [facility] Address: [address], [place] [address] Performed By: #### 5 7021-8 #### [facility] CLIA [id number] [address] [place] [address] 85141 CNOVSPon 06-23-2023 CNOVSP Visit (SP) Office ([place]) RENETTA BARBOSA ([id number]) 1960 F Date Time Provider Department 06/23/23 2:00 PM ANDRE FUNES HEMJEANETTE During your visit today, we recorded the following information about you: Temperature Pulse Respiration Blood pressure 97.6 degrees 107/minute 18/minute 149/93 Weight Height 91.1 kg 1.575 m Andre Funes MD 06/26/2023 1:35 PM Signed NAME: Renetta Barbosa CLINIC NO.: [id number] DATE OF SERVICE: June 23, 2023 ([place]) [...] HCC screening PLAN: Need US results from [facility] from last week. Recommend alternating follow [...] returns today in follow up. US in [facility] with enlarged nodular liver no masses. [...] medical changes. (more content not included)... Normal [facility] Comprehensive metabolic 2000 panelon 06-23-2023 Albumin [Mass/Vol] 4.5 g/dL Normal 3.9-4.9 [facility] Comment on above: Order Comment: Kevin quintero Type: BLOOD SPECIMEN Ordering Facility: [facility] Address: [address] [place] [address] Performed By: #### 2 4323-8 #### [facility] CLIA [id number] [address] [place] [address]128 ALP [Catalytic activity/Vol] 112 U/L Normal 34-123 [facility] Comment on above: Order Comment: Kevin quintero Type: BLOOD SPECIMEN Ordering Facility: [facility] Address: [address] [place] [address] Performed By: #### 2 4323-8 #### [facility] CLIA [id number] [address] [place] [address] ALT [Catalytic activity/Vol] 29 U/L Normal 7-38 [facility] Comment on above: Order Comment: Speci men Type: BLOOD SPECIMEN Ordering Facility: [facility] Address: [address] [place] [address] Performed By: #### 2 4323-8 #### [facility] CLIA [id number] [address] [place] [address] 03396 Anion gap [Moles/Vol] 14 mmol/L Normal 9-18 [facility] Comment on above: Order Comment: Speci men Type: BLOOD SPECIMEN Ordering Facility: [facility] Address: [address] [place] [address] Performed By: #### 2 432-8 #### [facility] CLIA [id number] [address] [place] [address] 13396 AST [Catalytic activity/Vol] 31 U/L Normal 13-35 [facility] Comment on above: Order Comment: Speci men Type: BLOOD SPECIMEN Ordering Facility: [facility] Address: [address] [place] [address] Performed By: #### 2 4323-8 #### [facility] CLIA [id number] [address] [place] [address] 31721 Bilirubin [Mass/Vol] 0.4 mg/dL Normal 0.2-1.3 [facility] Comment on above: Order Comment: Speci men Type: BLOOD SPECIMEN Ordering Facility: [facility] Address: [address] [place] [address] Performed By: #### 2 4323-8 #### [facility] CLIA [id number] [address] [place] [address] 84984 Calcium [Mass/Vol] 9.8 mg/dL Normal 8.5-10.2 [facility] Comment on above: Order Comment: Speci men Type: BLOOD SPECIMEN Ordering Facility: [facility] Address: [address] [place] [address] Performed By: #### 2 4323-8 #### [facility] CLIA [id number] [address] [place] [address] Chloride [Moles/Vol] 100 mmol/L Normal 97-105 [facility] Comment on above: Order Comment: Speci men Type: BLOOD SPECIMEN Ordering Facility: [facility] Address: [address] [place] [address] Performed By: #### 2 4323-8 #### [facility] CLIA [id number] [address] [place] [address] CO2 [Moles/Vol] 19 mmol/L Low 22-30 [facility] Comment on above: Order Comment: Speci men Type: BLOOD SPECIMEN Ordering Facility: [facility] Address: [address] [place] [address] Performed By: #### 2 4323-8 #### [facility] CLIA [id number] [address] [place] [address] 97885 Creatinine [Mass/Vol] 0.72 mg/dL Normal 0.58-0.96 [facility] Comment on above: Order Comment: Speci men Type: BLOOD SPECIMEN Ordering Facility: [facility] Address: [address] [place] [address] Performed By: #### 2 4323-8 #### [facility] CLIA [id number] [address] [place] [address]400 Creatinine and Glomerular filtration rate.predicted panel (S/P/Bld) 94 mL/min/1.73m??? Normal >=60 [facility] Comment on above: Order Comment: Speci men Type: BLOOD SPECIMEN [facility] SYSTEM Address: [address] [place] [address] Result Comment: Alisha mated Glomerular Filtration Rate [...] 4323-8 #### [facility] CLIA [id number] [address] [place] [address] Glucose [Mass/Vol] 316 mg/dL High 74-99 [facility] Comment on above: Order Comment: Napoleoni leon Type: BLOOD SPECIMEN Ordering Facility: [facility] Address: [address] [place], [place] [address] Result Comment: The [place] [employer] Association (ADA) provides guidance for cutoff [...] Standards of Medical Care in Diabetes 2016, [place] [employer]. Diabetes Care. 2016.39(Suppl 1). Performed By: #### 2 4323-8 #### [facility] CLIA [id number] [address] [place] [address] Potassium [Moles/Vol] 3.9 mmol/L Normal 3.7-5.1 [facility] Comment on above: Order Comment: Speci men Type: BLOOD SPECIMEN Ordering Facility: [facility] Address: [address] [place], [place] [address] Performed By: #### 2 4323-8 #### [facility] CLIA [id number] [address] [place] [address] Protein [Mass/Vol] 7.6 g/dL Normal 6.3-8.0 [facility] Comment on above: Order Comment: Kevin men Type: BLOOD SPECIMEN Ordering Facility: [facility] Address: [address] [place], [place] [address] Performed By: #### 2 4323-8 #### [facility] CLIA [id number] [address] [place] [address] Sodium [Moles/Vol] 133 mmol/L Low 136-144 [facility] Comment on above: Order Comment: Speci men Type: BLOOD SPECIMEN Ordering Facility: [facility] Address: [address] [place] [address] Performed By: #### 2 4323-8 #### [facility] CLIA [id number] [address] [place] [address] Urea nitrogen [Mass/Vol] 14 mg/dL Normal 7-21 [facility] Comment on above: Order Comment: Speci men Type: BLOOD SPECIMEN Ordering Facility: [facility] Address: [address] [place] [address] Performed By: #### 2 4323-8 #### [facility] CLIA [id number] [address] [place] [address] Ferritin SerPl-mCncon 2023 Ferritin [Mass/Vol] 20.1 ng/mL Normal 14.7-205.1 [facility] Comment on above: Order Comment: Speci men Type: BLOOD SPECIMEN Ordering Facility: [facility] Address: [address] [place] [address] Performed By: #### 5 0190-8, 9, 2275-08, 2283-12 #### [facility] CLIA [id number] [address] [place] [address] [place] Folate SerPl-mCncon 06-23-19 Folate [Mass/Vol] 11.2 ng/mL Normal >4.[address] [facility] Comment on above: Order Comment: Speci men Type: BLOOD SPECIMEN Ordering Facility: [facility] Address: [address] [place] [address] Performed By: #### 5 0190-8, 9, 2275-08, 2283-12 #### [facility] CLIA [id number] [address] [place] [address] [place] Iron and Iron binding capaci ty panelon 02-01-2024 Iron [Mass/Vol] 96 ug/dL Normal 41-186 [facility] Comment on above: Order Comment: Speci men Type: BLOOD SPECIMEN Ordering Facility: [facility] Address: [address] [place] [address] Performed By: #### 5 0190-8, 9, 2275-4, 8 #### [facility] CLIA [id number] [address] [place] [address] [place] Iron binding capacity [Mass/Vol] 434 ug/dL High 232-386 [facility] Comment on above: Order Comment: Speci men Type: BLOOD SPECIMEN Ordering Facility: [facility] Address: [address] [place] [address] Performed By: #### 5 0190-8, 9, 4, 2283-12 #### [facility] CLIA [id number] [address] [place] [address] [place] Iron/TIBC [Molar ratio] 22.1 % Normal 15.0-57.0 [facility] Comment on above: Order Comment: Speci men Type: BLOOD SPECIMEN Ordering Facility: [facility] Address: [address] [place] [address] Performed By: #### 5 0190-8, 9, 4, 2283-12 #### [facility] CLIA [id number] [address] [place] [address] [place] Vit B12 SerPl-mCncon 024 Cobalamin (Vitamin B12) [Mass/Vol] 586 pg/mL Normal 232-1245 [facility] Comment on above: Order Comment: Speci men Type: BLOOD SPECIMEN Ordering Facility: [facility] Address: [address] [place] [address] Performed By: #### 5 0190-8, 2131-9, 4, 2283-12 #### [facility] CLIA [id number] [facility] [place] [place] [id number] [place] Office Visiton 06-21-2023 Follow-up visit [id number] FamiliaRenetta smith Gabriela 1960 F Date Provider Department Center 06/21/2023 Jose6-MAHAMED VIL[facility]LA [facility] Family History Problem Relation Age of Onset Diabetes Mother Lung cancer Father Breast cancer Maternal Grandmother Family Status - Relation Status Age at Mother Father Maternal Grandmother Level of Service:97159 NC OFFICE/OUTPATIENT NEW MODERATE MDM 45 MINUTES Normal [facility] Lab Reportson 05-04-2023 Lab Reports [id number] 0TIFF Normal [facility] Physician Referralon 023 Physician Referral [id number]#[id number] 0TIFF Normal [facility] Screenson 05-04-2023 Screens [id number] 0TIFF Normal [facility] Patient Educationon 05-03-20 23 Patient Education [...] health care provider. General instructions ? Take pzxu-qod-olemoqa and prescription medicines only as told by [...] monitor yo (more content not included)... Normal [facility] CT LUNG CANCER SCREENINGon 0 10-20-2022 [...] MATA Date: 2022-10-20 08:[address] [facility] CBC AUTO DIFFon 10-19-2022 BASO # 0.0 103/ul Normal 0.0-0.[address] [facility] Comment on above: Performed By: #### C BC #### [facility] [address] [address] [address] Blanquita Farris Basophils/100 WBC (Bld) 0.4 % Normal 0.2-2.[address] [facility] Comment on above: Performed By: #### C BC #### [facility] [address] [address] [address] Blanquita Farris EO # 0.1 103/ul Normal 0.0-0.[address] [facility] Comment on above: Performed By: #### C BC #### [facility] [address] [place] [address] Dr. Blanquita Farris Eosinophils/100 WBC (Bld) 1.5 % Normal 0.9-7.[address] [facility] Comment on above: Performed By: #### C BC #### [facility] [address] [address] [address] Blanquita Farris Erythrocyte distribution width (RBC) [Ratio] 15.3 % Critically high 11.0-15.[address] [facility] Comment on above: Performed By: #### C BC #### [facility] [address] [place] [address] Dr. Blanquita Farris Hematocrit (Bld) [Volume fraction] 42.7 % Normal 36.0-48.[address] [facility] Comment on above: Performed By: #### C BC #### [facility] [address] [place] [address] Dr. Blanquita Farris Hemoglobin (Bld) [Mass/Vol] 13.8 g/dL Normal 12.0-16.[address] [facility] Comment on above: Performed By: #### C BC #### [facility] [address] [address] [address] Blanquita Farris IG # 0.04 10e3/ul Critically high 0.00-0.03 [facility] Comment on above: Performed By: #### C BC #### [facility] [address] [address] [address] Blanquita Farris IG % 0.6 % Critically high 0.0-0.5 [facility] Comment on above: Performed By: #### C BC #### [facility] [address] [address] [address] Blanquita Farris LYMPH # 1.2 103/ul Normal 1.2-3.8 [facility] Comment on above: Performed By: #### C BC #### [facility] [address] [place] [address] Dr. Blanquita Farris Lymphocytes/100 WBC (Bld) 18.0 % Critically low 20.5-60.0 [facility] Comment on above: Performed By: #### C BC #### [facility] [address] [place] [address] Dr. Blanquita Farris MANUAL DIFF REQ NO Normal [facility] Comment on above: Performed By: #### C BC #### [facility] [address] [place] [address] Dr. Blanquita Farris MCH (RBC) [Entitic mass] 26.8 pg Normal 26.7-34.0 [facility] Comment on above: Performed By: #### C BC #### [facility] [address] [place] [address] Dr. Blanquita Farris MCHC (RBC) [Mass/Vol] 32.3 g/dL Normal 29.9-35.2 [facility] Comment on above: Performed By: #### C BC #### [facility] [address] [place] [address] Dr. Blanquita Farris MCV (RBC) [Entitic vol] 83.1 fL Normal 81.0-99.0 [facility] Comment on above: Performed By: #### C BC #### [facility] [address] [place] [address] Dr. Blanquita Farris MONO # 0.4 103/ul Normal 0.3-0.8 [facility] Comment on above: Performed By: #### C BC #### [facility] [address] [place] [address] Dr. Blanquita Farris Monocytes/100 WBC (Bld) 5.4 % Normal 1.7-12.0 [facility] Comment on above: Performed By: #### C BC #### [facility] [address] [place] [address] Dr. Blanquita Farris NEUT # 5.0 103/ul Normal 1.4-6.5 [facility] Comment on above: Performed By: #### C BC #### [facility] [address] [place] [address] Dr. Blanquita Farris Neutrophils/100 WBC (Bld) 74.1 % Normal 43.0-75.0 [facility] Comment on above: Performed By: #### C BC #### [facility] [address] [place] [address] Dr. Blanquita Farris Platelet mean volume (Bld) [Entitic vol] 10.2 fL Normal 9.5-13.[address] [facility] Comment on above: Performed By: #### C BC #### [facility] [address] [place] [address] Dr. Blanquita Farris PLT 180 103/ul Normal 150-[address] [facility] Comment on above: Performed By: #### C BC #### [facility] [address] [place] [address] Dr. Blanquita Farris RBC 5.14 106/ul Normal 4.20-5.[address] [facility] Comment on above: Performed By: #### C BC #### [facility] [address] [place] [address] Dr. Blanquita Farris WBC 6.8 103/ul Normal 4.0-11.[address] [facility] Comment on above: Performed By: #### C BC #### [facility] [address] [place] [address] Dr. Blanquita Farris CPKon 10-19-2022 CK [Catalytic activity/Vol] 68 U/L Normal 26-192 [facility] Comment on above: Performed By: #### C MP CK, TSH #### [facility] [address] [place], [place] [address] Dr. Blanquita Farris MG MAMM SCREEN 3D SANTIAGO CADon 10-19-2022 MG MAMM SCREEN 3D SANTIAGO CAD Patient: RENETTA BARBOSA Exam Date: 10/19/2022 : 1960 Gender:F Ordering : SH[facility]IRA [facility] Admission #: [id number] Family : DR LUL DUTTON Order #: [id number] CLICK HERE TO VIEW EXAM RADIOLOGY REPORT [...] cancer at age 80. LOCATION: [facility] BREAST COMPOSITION: Scattered areas fibroglandular density. [...] MD on 10/19/2022 at 13:[address] [facility] PROF 14(COMP METB)on 023 Albumin [Mass/Vol] 3.7 g/dL Normal 3.4-5.0 [facility] Comment on above: Performed By: #### C MP CK, TSH #### [facility] [address] [place], [place] [address] Dr. Blanquita Farris Albumin/Globulin [Mass ratio] 0.8 {ratio} Normal [facility] Comment on above: Performed By: #### C MP CK, TSH #### [facility] [address] [address] [address] Blanquita Farris ALP [Catalytic activity/Vol] 120 U/L Critically high 46-116 [facility] Comment on above: Performed By: #### C MP, CK, TSH #### [facility] [address] [address] [address] Blanquita Farris ALT [Catalytic activity/Vol] 31 U/L Normal 14-59 [facility] Comment on above: Performed By: #### C MP, CK, TSH #### [facility] [address] [address] [address] Blanquita Farris Anion gap [Moles/Vol] 14.2 mmol/L Normal [facility] Comment on above: Performed By: #### C MP, CK, TSH #### [facility] [address] [place] [address] Dr. Blanquita Farris AST [Catalytic activity/Vol] 19 U/L Normal 15-37 [facility] Comment on above: Performed By: #### C MP, CK, TSH #### [facility] [address] [address] [address] Blanquita Farris Bilirubin [Mass/Vol] 0.3 mg/dL Normal 0.2-1.0 [facility] Comment on above: Performed By: #### C MP, CK, TSH #### [facility] [address] [address] [address] Blanquita Farris Calcium [Mass/Vol] 9.4 mg/dL Normal 8.5-10.1 [facility] Comment on above: Performed By: #### C MP, CK, TSH #### [facility] [address] [address] [address] Blanquita Farris Chloride [Moles/Vol] 101 mmol/L Normal 98-107 [facility] Comment on above: Performed By: #### C MP, CK, TSH #### [facility] [address] [address] [address] Blanquita Farris CO2 [Moles/Vol] 28.4 mmol/L Normal 21.0-32.0 [facility] Comment on above: Performed By: #### C MP, CK, TSH #### [facility] [address] [address] [address] Blanquita Farris Creatinine [Mass/Vol] 1.04 mg/dL Critically high 0.55-1.02 [facility] Comment on above: Performed By: #### C MP, CK, TSH #### [facility] [address] [address] [address] Blanquita Farris EGFR-AF ETHIOPIAN >60 Normal >=60 [facility] Comment on above: Performed By: #### C MP, CK, TSH #### [facility] [address] [address] [address] Blanquita Farris EGFR-NON AF ETHIOPIAN 54 mL/min/1.73m2 Critically low >=60 [facility] Comment on above: Performed By: #### C MP, CK, TSH #### [facility] [address] [address] [address] Blanquita Farris Globulin (S) [Mass/Vol] 4.6 g/dL Normal [facility] Comment on above: Performed By: #### C MP, CK, TSH #### [facility] [address] [address] [address] Blanquita Farris Glucose [Mass/Vol] 194 mg/dL Critically high 74-106 [facility] Comment on above: Performed By: #### C MP, CK, TSH #### [facility] [address] [address] [address] Blanquita Farris Potassium [Moles/Vol] 3.6 mmol/L Normal 3.5-5.1 [facility] Comment on above: Performed By: #### C MP, CK, TSH #### [facility] [address] [address] [address] Blanquita Farris Protein [Mass/Vol] 8.3 g/dL Critically high 6.4-8.2 [facility] Comment on above: Performed By: #### C MP, CK, TSH #### [facility] [address] [address] [address] Blanquita Farris Sodium [Moles/Vol] 140 mmol/L Normal 136-145 [facility] Comment on above: Performed By: #### C MP, CK, TSH #### [facility] [address] [address] [address] Blanquita Farris Urea nitrogen [Mass/Vol] 13.0 mg/dL Normal 7.0-18.0 [facility] Comment on above: Performed By: #### C MP, CK, TSH #### [facility] [address] [address] [address] Blanquita Farris Urea nitrogen/Creatinine [Mass ratio] 12.5 mg/mg Normal [facility] Comment on above: Performed By: #### C RENE CK, TSH #### [facility] [address] [place] [address] Dr. Blanquita Farris TSHon 10-19-2022 TSH 0.292 uIU/mL Critically low 0.358-3.740 [facility] Comment on above: Performed By: #### C RENE CK, TSH #### [facility] [address] [place] [address] Dr. Blanquita Farris VITAMIN B12on 10-19-2022 Cobalamin (Vitamin B12) [Mass/Vol] 912.0 pg/mL Normal 193.0-986.0 [facility] Comment on above: Performed By: #### V ITB12 #### [facility] [address] [place] [address] Dr. Blanquita Farris US SINGLE QUAD RT [...] YANG Date: 2022-06-10 11:[address] [facility] US SPLEENon 06-10-2022 US SPLEEN EXAM: [...] YANG Date: 2022-06-10 12:[address] [facility] LACTOFERRIN FECAL QUANTon Lactoferrin, Fecal, Quant. 1.96 ug/mL(g) Normal 0.00-7.24 [facility] Comment on above: Result Comment: . Baseline [...] Performed By: #### I NSULIN #### [facility] [address] [address] [address] Blanquita Farris CALPROTECTIN, FECALon 2021 Calprotectin, Fecal 33 ug/g Normal 0-120 [facility] Comment on above: Result Comment: Conc entration Interpretation Follow-Up <16 - 50 ug/g Normal None >50 -120 ug/g Borderline Re-evaluate in 4-6 weeks >120 ug/g Abnormal Repeat as clinically indicated Performed By: #### C ALPOO #### [facility] [address] [address] [address] Blanquita Farris PANCREATIC ELASTASE FECALon 03-20-2022 Pancreatic Elastase, Fecal 364 ug Elast./g Normal >200 [facility] Comment on above: Result Comment: Korina re Pancreatic Insufficiency: <100 Moderate Pancreatic Insufficiency: 100 - 200 Normal: >200 Performed By: #### C BC #### [facility] [address] [address] [address] Blanquita Farris BOWEL DISORDERS EVALUATION R ULE-OUT CASCon 03-18-2022 Atypical pANCA Negative Normal Negative [facility] Comment on above: Performed By: #### C BC #### [facility] [address] [address] [address] Blanquita Farris Note: Comment Normal [facility] Comment on above: Result Comment: Sugg estive of Crohn's disease. Subsequent testing with the Crohn's Disease Prognostic Profile (499135) that includes antiglycan antibodies AMCA, ALCA, ACCA, and Xochitl may aid in the differentiation of clinical forms of CD and prognosis of disease progression. Performed By: #### C BC #### [facility] [address] [address] [address] Blanquita Farris Saccharomyces Cer. IgG 28.0 Units Critically high 0.0-24.9 [facility] Comment on above: Result Comment: Nega tive <20.0 Equivocal 20.1 - 24.9 Positive >or= 25.0 Performed By: #### C BC #### [facility] [address] [address] [address] Blanquita Farris tTG/DGP SCR Negative Normal Negative [facility] Comment on above: Performed By: #### C BC #### [facility] [address] [address] [address] Blanquita Farris INSULINon 03-16-2022 Insulin 43.0 uIU/mL Critically high 2.6-24.9 [facility] Comment on above: Performed By: #### I NSULIN #### [facility] [address] [address] [address] Blanquita Farris OCC BLD IMMUNO SCREENon 02-21 OCCULT BLOOD Negative Normal NEGATIVE [facility] Comment on above: Performed By: #### C BC #### [facility] [address] [place] [address] Dr. Blanquita Farris CBC AUTO DIFFon 03-15-2022 BASO # 0.0 103/ul Normal 0.0-0.1 [facility] Comment on above: Performed By: #### C BC #### [facility] [address] [place] [address] Dr. Blanquita Farris Basophils/100 WBC (Bld) 0.7 % Normal 0.2-2.0 [facility] Comment on above: Performed By: #### C BC #### [facility] [address] [place] [address] Dr. Blanquita Farris EO # 0.2 103/ul Normal 0.0-0.7 [facility] Comment on above: Performed By: #### C BC #### [facility] [address] [place] [address] Dr. Blanqiuta Farris Eosinophils/100 WBC (Bld) 2.7 % Normal 0.9-7.0 [facility] Comment on above: Performed By: #### C BC #### [facility] [address] [place] [address] Dr. Blanquita Farris Erythrocyte distribution width (RBC) [Ratio] 14.8 % Normal 11.0-15.0 [facility] Comment on above: Performed By: #### C BC #### [facility] [address] [place] [address] Dr. Blanquita Farris Hematocrit (Bld) [Volume fraction] 43.4 % Normal 36.0-48.0 [facility] Comment on above: Performed By: #### C BC #### [facility] [address] [place] [address] Dr. Blanquita Farris Hemoglobin (Bld) [Mass/Vol] 14.1 g/dL Normal 12.0-16.0 [facility] Comment on above: Performed By: #### C BC #### [facility] [address] [place] [address] Dr. Blanquita Farris IG # 0.03 10e3/ul Normal 0.00-0.03 [facility] Comment on above: Performed By: #### C BC #### [facility] [address] [place] [address] Dr. Blanquita Farris IG % 0.5 % Normal 0.0-0.5 [facility] Comment on above: Performed By: #### C BC #### [facility] [address] [place] [address] Dr. Blanquita Farris LYMPH # 1.1 103/ul Critically low 1.2-3.8 [facility] Comment on above: Performed By: #### C BC #### [facility] [address] [place] [address] Dr. Blanquita Farris Lymphocytes/100 WBC (Bld) 18.9 % Critically low 20.5-60.0 [facility] Comment on above: Performed By: #### C BC #### [facility] [address] [place] [address] Dr. Blanquita Farris MANUAL DIFF REQ NO Normal [facility] Comment on above: Performed By: #### C BC #### [facility] [address] [place] [address] Dr. Blanquita Farris MCH (RBC) [Entitic mass] 27.9 pg Normal 26.7-34.0 [facility] Comment on above: Performed By: #### C BC #### [facility] [address] [place] [address] Dr. Blanquita Farris MCHC (RBC) [Mass/Vol] 32.5 g/dL Normal 29.9-35.2 [facility] Comment on above: Performed By: #### C BC #### [facility] [address] [place] [address] Dr. Blanquita Farris MCV (RBC) [Entitic vol] 85.8 fL Normal 81.0-99.0 [facility] Comment on above: Performed By: #### C BC #### [facility] [address] [place] [address] Dr. Blanquita Farris MONO # 0.4 103/ul Normal 0.3-0.8 [facility] Comment on above: Performed By: #### C BC #### [facility] [address] [address] [address] Blanquita Farris Monocytes/100 WBC (Bld) 7.2 % Normal 1.7-12.0 [facility] Comment on above: Performed By: #### C BC #### [facility] [address] [address] [address] Blanquita Farris NEUT # 4.1 103/ul Normal 1.4-6.5 [facility] Comment on above: Performed By: #### C BC #### [facility] [address] [place] [address] Dr. Blanquita Farris Neutrophils/100 WBC (Bld) 70.0 % Normal 43.0-75.0 [facility] Comment on above: Performed By: #### C BC #### [facility] [address] [place] [address] Dr. Blanquita Farris Platelet mean volume (Bld) [Entitic vol] 10.4 fL Normal 9.5-13.5 [facility] Comment on above: Performed By: #### C BC #### [facility] [address] [place] [address] Dr. Blanquita Farris PLT 158 103/ul Normal 150-[address] [facility] Comment on above: Performed By: #### C BC #### [facility] [address] [place] [address] Dr. Blanquita Farris RBC 5.06 106/ul Normal 4.20-5.[address] [facility] Comment on above: Performed By: #### C BC #### [facility] [address] [place] [address] Dr. Blanquita Farris WBC 5.9 103/ul Normal 4.0-11.[address] [facility] Comment on above: Performed By: #### C BC #### [facility] [address] [place] [address] Dr. Blanquita Farris FREE THYROXINE INDEX T7on FTI 4.00 Normal 1.30-4.[address] [facility] Comment on above: Performed By: #### C BC #### [facility] [address] [place] [address] Dr. Blanquita Farris T3U 31.0 % Normal 30.0-39.0 [facility] Comment on above: Performed By: #### C BC #### [facility] [address] [address] [address] Blanquita Farris T4 [Mass/Vol] 12.90 ug/dL Normal 4.80-13.90 [facility] [facility] Comment on above: Performed By: #### C BC #### [facility] [address] [place] [address] Dr. Blanquita Farris GLYCOHEMOGLOBIN A1Con 2021 ADA RECOMMENDATION SEE BELOW Normal [facility] Comment on above: Result Comment: ADA RECOMMENDED LIMIT 4.0 - 6.0 ADA THERAPEUTIC TARGET < 7.0 ACTION SUGGESTED > 7.0 Performed By: #### A 1C #### [facility] [address] [place] [address] Dr. Blanquita Farris Glucose [Mass/Vol] 146 mg/dL Normal [facility] Comment on above: Performed By: #### A 1C #### [facility] [address] [place] [address] Dr. Blanquita Farris HbA1c (Bld) [Mass fraction] 6.7 % Critically high 4.5-6.2 [facility] Comment on above: Performed By: #### A 1C #### [facility] [address] [place] [address] Dr. Blanquita Farris IRONon 03-15-2022 Iron [Mass/Vol] 67.0 ug/dL Normal 50.0-170.0 [facility] Comment on above: Performed By: #### I KEON #### [facility] [address] [place] [address] Dr. Blanquita Farris LIPID PROFILEon 03-15-2022 CHOL-HDL RATIO NORM SEE BELOW Normal [facility] Comment on above: Result Comment: 3.3 - 4.4 LOW RISK 4.4 - 7.1 AVERAGE RISK 7.1 - 11.0 MODERATE RISK >11.0 HIGH RISK Performed By: #### C BC #### [facility] [address] [place], [place] [address] Dr. Blanquita Farris Cholesterol [Mass/Vol] 137 mg/dL Normal <=200 [facility] Comment on above: Performed By: #### C BC #### [facility] [address] [place], [place] [address] Dr. Blanquita Farris Cholesterol in HDL [Mass/Vol] 52 mg/dL Normal 40-60 [facility] Comment on above: Performed By: #### C BC #### [facility] [address] [address] [address] Blanquita Farris Cholesterol in LDL [Mass/Vol] 62.0 mg/dL Normal [facility] Comment on above: Performed By: #### C BC #### [facility] [address] [address] [address] Blanquita Farris Cholesterol.total/C holesterol in HDL [Mass ratio] 2.6 {ratio} Normal [facility] Comment on above: Performed By: #### C BC #### [facility] [address] [address] [address] Blanquita Farris HDL NORMAL > or = 60 mg/dl - LO W CARDIOVASCULAR RISK <40 mg/dl - HIGH CARDIOVASCULAR RISK Normal [facility] Comment on above: Performed By: #### C BC #### [facility] [address] [address] [address] Blanquita Farris LDL CALC NORMAL SEE BELOW Normal [facility] Comment on above: Result Comment: <100 mg/dl OPTIMAL 100 - 129 mg/dl NEAR OR ABOVE OPTIMAL 130 - 159 mg/dl BORDERLINE HIGH 160 - 189 mg/dl HIGH >190 mg/dl VERY HIGH Performed By: #### C BC #### [facility] [address] [address] [address] Blanquita Farris Triglyceride [Mass/Vol] 115 mg/dL Normal <=150 [facility] Comment on above: Performed By: #### C BC #### [facility] [address] [address] [address] Blanquita Farris VLDL CALC 23.0 mg/dL Normal [facility] Comment on above: Performed By: #### C BC #### [facility] [address] [place] [address] Dr. Blanquita Farris PROF 14(COMP METB)on 022 Albumin [Mass/Vol] 4.1 g/dL Normal 3.4-5.0 [facility] Comment on above: Performed By: #### C BC #### [facility] [address] [place] [address] Dr. Blanquita Farris Albumin/Globulin [Mass ratio] 1.0 {ratio} Normal [facility] Comment on above: Performed By: #### C BC #### [facility] [address] [place] [address] Dr. Blanquita Farris ALP [Catalytic activity/Vol] 94 U/L Normal 46-116 [facility] Comment on above: Performed By: #### C BC #### [facility] [address] [place] [address] Dr. Blanquita Farris ALT [Catalytic activity/Vol] 32 U/L Normal 14-59 [facility] Comment on above: Performed By: #### C BC #### [facility] [address] [place] [address] Dr. Blanquita Farris Anion gap [Moles/Vol] 8.8 mmol/L Normal [facility] Comment on above: Performed By: #### C BC #### [facility] [address] [place] [address] Dr. Blanquita Farris AST [Catalytic activity/Vol] 26 U/L Normal 15-37 [facility] Comment on above: Performed By: #### C BC #### [facility] [address] [place] [address] Dr. Blanquita Farris Bilirubin [Mass/Vol] 0.4 mg/dL Normal 0.2-1.0 [facility] Comment on above: Performed By: #### C BC #### [facility] [address] [place] [address] Dr. Blanquita Farris Calcium [Mass/Vol] 9.0 mg/dL Normal 8.5-10.1 [facility] Comment on above: Performed By: #### C BC #### [facility] [address] [place] [address] Dr. Blanquita Farris Chloride [Moles/Vol] 100 mmol/L Normal 98-107 [facility] Comment on above: Performed By: #### C BC #### [facility] [address] [place] [address] Dr. Blanquita Farris CO2 [Moles/Vol] 31.6 mmol/L Normal 21.0-32.0 [facility] Comment on above: Performed By: #### C BC #### [facility] [address] [place] [address] Dr. Blanquita Farris Creatinine [Mass/Vol] 0.87 mg/dL Normal 0.55-1.02 [facility] Comment on above: Performed By: #### C BC #### [facility] [address] [place] [address] Dr. Blanquita Farris EGFR-AF ETHIOPIAN >60 Normal >=60 [facility] Comment on above: Performed By: #### C BC #### [facility] [address] [place] [address] Dr. Blanquita Farris EGFR-NON AF ETHIOPIAN >60 Normal >=60 [facility] Comment on above: Performed By: #### C BC #### [facility] [address] [place] [address] Dr. Blanquita Farris Globulin (S) [Mass/Vol] 4.0 g/dL Normal [facility] Comment on above: Performed By: #### C BC #### [facility] [address] [place] [address] Dr. Blanquita Farris Glucose [Mass/Vol] 192 mg/dL Critically high 74-106 [facility] Comment on above: Performed By: #### C BC #### [facility] [address] [place] [address] Dr. Blanquita Farris Potassium [Moles/Vol] 3.4 mmol/L Critically low 3.5-5.1 [facility] Comment on above: Performed By: #### C BC #### [facility] [address] [place] [address] Dr. Blanquita Farris Protein [Mass/Vol] 8.1 g/dL Normal 6.4-8.2 [facility] Comment on above: Performed By: #### C BC #### [facility] [address] [address] [address] Blanquita Farris Sodium [Moles/Vol] 137 mmol/L Normal 136-145 [facility] Comment on above: Performed By: #### C BC #### [facility] [address] [address] [address] Blanquita Farris Urea nitrogen [Mass/Vol] 9.0 mg/dL Normal 7.0-18.0 [facility] Comment on above: Performed By: #### C BC #### [facility] [address] [place] [address] Dr. Blanquita Farris Urea nitrogen/Creatinine [Mass ratio] 10.3 mg/mg Normal [facility] Comment on above: Performed By: #### C BC #### [facility] [address] [place] [address] Dr. Blanquita Farris PROTIMEon 03-15-2022 INR Coag (PPP) [Relative time] 1.15 {INR} Normal [facility] Comment on above: Performed By: #### C BC #### [facility] [address] [place] [address] Dr. Blanquita Farris INR GUIDELINES SEE BELOW Normal [facility] Comment on above: Result Comment: SOLANGE RED INR: 2.0 - 3.0 CONDITIONS NOT LISTED BELOW 2.5 - 3.5 FOR PROSTHETIC HEART VALVE REPLACEMENT 2.5 - 3.5 RECURRENT THROMBOSIS Performed By: #### C BC #### [facility] [address] [place] [address] Dr. Blanquita Farris PT Coag (PPP) [Time] 12.3 s Critically high 9.0-11.6 [facility] Comment on above: Performed By: #### C BC #### [facility] [address] [place] [address] Dr. Blanquita Farris TSHon 03-15-2022 TSH 0.342 uIU/mL Critically low 0.358-3.740 [facility] Comment on above: Performed By: #### C #### [facility] [address] [address] [address] Blanquita Farris Progress Noteson 02-16-2022 [employer]ing Services Manager Authentication Interface Message Text EMERGENCY TRIAGE, TREAT AND TRANSPORT (ET3) DOCUMENTATION OF TELEHEALTH VISIT Date / Time: 02/16/2022 / 6:00 AM Name: Renetta Barbosa : 1960 SSN: (Not on file) EMS Agency: [facility] [] Verbal consent obtained [] Implied [...] Completed by: Pedro Arechiga MD Normal [facility] [employer] [facility] US SINGLE QUAD RT UPPERon US SINGLE QUAD RT UPPER EXAMINATION: US SINGLE [...] MATA Date: 2021-11-25 17:[address] [facility] ACETONE SERUMon 05-17-2021 ACETONE Negative Normal NEGATIVE [facility] Comment on above: Performed By: #### A CETON #### [facility] [address] [place] [address] Dr. Blanquita Farris CBC W MANUAL DIFFon 05-17-20 21 ATYPICAL LYMPH # Normal [facility] Comment on above: Performed By: #### C BCMAN #### [facility] [address] [place] [address] Dr. Blanquita Farris ATYPICAL LYMPH % Normal [facility] Comment on above: Performed By: #### C BCMAN #### [facility] [address] [place] [address] Dr. Blanquita Farris BAND # Normal 0.0-0.[address] [facility] Comment on above: Performed By: #### C BCDALI #### [facility] [address] [place] [address] Dr. Blanquita Farris BAND % Normal 0-[address] [facility] Comment on above: Performed By: #### C BCMAN #### [facility] [address] [place] [address] Dr. Blanquita Farris BASOM # 0.00 103/ul Normal 0.00-0.[address] [facility] Comment on above: Performed By: #### C BCDALI #### [facility] [address] [place] [address] Dr. Blanquita Farris BASOM % 0.0 % Critically low 0.2-2.0 [facility] Comment on above: Performed By: #### C BCDALI #### [facility] [address] [place] [address] Dr. Blanquita Farris BLAST # Normal [facility] Comment on above: Performed By: #### C BRIGETTE #### [facility] [address] [place] [address] Dr. Blanquita Farris BLAST % Normal [facility] Comment on above: Performed By: #### C BCMAN #### [facility] [address] [place] [address] [address] Blanquita Farris CORRECTED WBC Normal 4.0-11.0 [facility] Comment on above: Performed By: #### C BRIGETTE #### [facility] [address] [address] [address] Blanquita Farris EOS # 0.00 103/ul Normal 0.00-0.70 [facility] Comment on above: Performed By: #### C BRIGETTE #### [facility] [address] [place] [address] Dr. Blanquita Farris EOS% 0.0 % Critically low 0.9-7.0 [facility] Comment on above: Performed By: #### C BRIGETTE #### [facility] [address] [place] [address] Dr. Blanquita Farris HCT 40.7 % Normal 36.0-48.0 [facility] Comment on above: Performed By: #### C BRIGETTE #### [facility] [address] [place] [address] Dr. Blanquita Farris HGB 12.9 g/dl Normal 12.0-16.0 [facility] Comment on above: Performed By: #### C BRIGETTE #### [facility] [address] [place] [address] Dr. Blanquita Farris LYMPHM # 0.63 103/ul Critically low 1.20-3.80 [facility] Comment on above: Performed By: #### C BRIGETTE #### [facility] [address] [place] [address] Dr. Blanquita Farris LYMPHM% 18.0 % Critically low 20.5-60.0 [facility] Comment on above: Performed By: #### C BRIGETTE #### [facility] [address] [place] [address] Dr. Blanquita Farris MCH 28.4 pg Normal 26.7-34.[address] [facility] Comment on above: Performed By: #### C BRIGETTE #### [facility] [address] [place] [address] Dr. Blanquita Farris MCHC 31.7 g/dl Normal 29.9-35.2 [facility] Comment on above: Performed By: #### C BCMAN #### [facility] [address] [place] [address] Dr. Blanquita Farris MCV 89.5 fL Normal 81.0-99.0 [facility] Comment on above: Performed By: #### C BCMAN #### [facility] [address] [place] [address] Dr. Blanquita Farris METAMYELOCYTE # Normal [facility] Comment on above: Performed By: #### C BCMAN #### [facility] [address] [place] [address] Dr. Blanquita Farris METAMYELOCYTE % Normal [facility] Comment on above: Performed By: #### C BCDALI #### [facility] [address] [place] [address] Dr. Blanquita Farris MONOM# 0.14 103/ul Critically low 0.30-0.80 [facility] Comment on above: Performed By: #### C BCDALI #### [facility] [address] [place] [address] Dr. Blanquita Farris MONOM% 4.0 % Normal 1.7-12.0 [facility] Comment on above: Performed By: #### C BCMAN #### [facility] [address] [place] [address] Dr. Blanquita Farris MPV 12.1 fL Normal 9.5-13.5 [facility] Comment on above: Performed By: #### C BCMAN #### [facility] [address] [place] [address] Dr. Blanquita Farris MYELOCYTE # Normal [facility] Comment on above: Performed By: #### C BCMAN #### [facility] [address] [place] [address] Dr. Blanquita Farris MYELOCYTE % Normal [facility] Comment on above: Performed By: #### C BCDALI #### [facility] [address] [place] [address] Dr. Blanuqita Farris NRBC Normal [facility] Comment on above: Performed By: #### C BRIGETTE #### [facility] [address] [address] [address] Blanquita Farris PLT 121 103/ul Critically low 150-450 [facility] Comment on above: Performed By: #### C MIGUELMAN #### [facility] [address] [address] [address] Blanquita Farris RBC 4.55 106/ul Normal 4.20-5.40 [facility] Comment on above: Performed By: #### C BRIGETTE #### [facility] [address] [address] [address] Blanquita Farris RDW 15.8 % Critically high 11.0-15.0 [facility] Comment on above: Performed By: #### C BRIGETTE #### [facility] [address] [address] [address] Blanquita Farris SEG # 2.73 103/ul Normal 1.40-6.50 [facility] Comment on above: Performed By: #### C BRIGETTE #### [facility] [address] [address] [address] Blanquita Farris SEG % 78.0 % Critically high 43.0-75.0 [facility] Comment on above: Performed By: #### C BRIGETTE #### [facility] [address] [address] [address] Blanquita Farris WBC 3.5 103/ul Critically low 4.0-11.0 [facility] Comment on above: Performed By: #### C BRIGETTE #### [facility] [address] [address] [address] CSPINE WO CONon [...] NAIDU Date: 2021-05-17 09:[address] [facility] ER URINE PROFILEon 1 Bilirubin Ql (U) Negative Normal NEGATIVE [facility] Comment on above: Performed By: #### E RUR #### [facility] [address] [place] [address] Dr. Blanquita Farris Clarity (U) CLEAR Normal CLEAR [facility] Comment on above: Performed By: #### E RUR #### [facility] [address] [place] [address] Dr. Blanquita Farris Color (U) LT. YELLOW Normal YELLOW [facility] Comment on above: Performed By: #### E RUR #### [facility] [address] [place] [address] Dr. Blanquita Farris ERUCORIED A micrscopic examination will be performed if indicated. Normal [facility] Comment on above: Performed By: #### E RUR #### [facility] [address] [address] [address] Blanquita Farris Glucose Ql (U) 100 mg/dl Abnormal NEGATIVE [facility] Comment on above: Performed By: #### E RUR #### [facility] [address] [place] [address] Dr. Blanquita Farris Hemoglobin Ql (U) Negative Normal NEGATIVE [facility] Comment on above: Performed By: #### E RUR #### [facility] [address] [place] [address] Dr. Blanquita Farris Ketones Ql (U) Negative Normal NEGATIVE [facility] Comment on above: Performed By: #### E RUR #### [facility] [address] [place] [address] Dr. Blanquita Farris LEUKOCYTES Negative Normal NEGATIVE [facility] Comment on above: Performed By: #### E RUR #### [facility] [address] [place] [address] Dr. Blanquita Farris Nitrite Ql (U) Negative Normal NEGATIVE [facility] Comment on above: Performed By: #### E RUR #### [facility] [address] [place] [address] Dr. Blanquita Farris pH (U) 7.0 [pH] Normal 5-9 [facility] Comment on above: Performed By: #### E RUR #### [facility] [address] [place] [address] Dr. Blanquita Farris SPEC GRAVITY 1.015 Normal 1.005-<=1.025 [facility] Comment on above: Performed By: #### E RUR #### [facility] [address] [place] [address] Dr. Blanquita Farris UA PROTEIN Negative Normal NEGATIVE/ TRACE [facility] Comment on above: Performed By: #### E RUR #### [facility] [address] [place] [address] Dr. Blanquita Farris UR MICRO IND NOT INDICATED Normal [facility] Comment on above: Performed By: #### E RUR #### [facility] [address] [place] [address] Dr. Blanquita Farris Urobilinogen Qn (U) 0.2 {Chevy'U}/dL Normal 0.2 - 1. 0 [facility] Comment on above: Performed By: #### E RUR #### [facility] [address] [place] [address] Dr. Blanquita Farris POINT OF CARE GLUCOSEon 12-2 Glucose [Mass/Vol] 234 mg/dL Critically high 74-106 [facility] Comment on above: Performed By: #### P OCGLUC #### [facility] [address] [place] [address] Dr. Blanquita Farris PROF 14(COMP METB)on 021 Albumin [Mass/Vol] 3.5 g/dL Normal 3.5-5.0 [facility] Comment on above: Performed By: #### C MP #### [facility] [address] [place] [address] Dr. Blanquita Farris Albumin/Globulin [Mass ratio] 0.9 {ratio} Normal [facility] Comment on above: Performed By: #### C MP #### [facility] [address] [place] [address] Dr. Blanquita Farris ALP [Catalytic activity/Vol] 73 U/L Normal 38-126 [facility] Comment on above: Performed By: #### C MP #### [facility] [address] [place] [address] Dr. Blanquita Farris ALT [Catalytic activity/Vol] 39 U/L Normal 9-52 [facility] Comment on above: Performed By: #### C MP #### [facility] [address] [place] [address] Dr. Blanquita Farris Anion gap [Moles/Vol] 12.9 mmol/L Normal [facility] Comment on above: Performed By: #### C MP #### [facility] [address] [place] [address] Dr. Blanquita Farris AST [Catalytic activity/Vol] 33 U/L Normal 14-36 [facility] Comment on above: Performed By: #### C MP #### [facility] [address] [place] [address] Dr. Blanquita Farris Bilirubin [Mass/Vol] 0.3 mg/dL Normal 0.2-1.3 [facility] Comment on above: Performed By: #### C MP #### [facility] [address] [place] [address] Dr. Blanquita Farris Calcium [Mass/Vol] 8.9 mg/dL Normal 8.4-10.2 [facility] Comment on above: Performed By: #### C MP #### [facility] [address] [address] [address] Blanquita Farris Chloride [Moles/Vol] 105 mmol/L Normal 98-107 [facility] Comment on above: Performed By: #### C MP #### [facility] [address] [address] [address] Blanquita Farris CO2 [Moles/Vol] 28.3 mmol/L Normal 22.0-30.0 [facility] Comment on above: Performed By: #### C MP #### [facility] [address] [address] [address] Blanquita Farris Creatinine [Mass/Vol] 0.75 mg/dL Normal 0.52-1.04 [facility] Comment on above: Performed By: #### C MP #### [facility] [address] [address] [address] Blanquita Farris EGFR-AF ETHIOPIAN >60 Normal >=60 [facility] Comment on above: Performed By: #### C MP #### [facility] [address] [address] [address] Blanquita Farris EGFR-NON AF ETHIOPIAN >60 Normal >=60 [facility] Comment on above: Performed By: #### C MP #### [facility] [address] [address] [address] Blanquita Farris Globulin (S) [Mass/Vol] 3.8 g/dL Normal [facility] Comment on above: Performed By: #### C MP #### [facility] [address] [address] [address] Blanquita Farris Glucose [Mass/Vol] 173 mg/dL Critically high 74-106 [facility] Comment on above: Performed By: #### C MP #### [facility] [address] [address] [address] Blanquita Farris Potassium [Moles/Vol] 3.2 mmol/L Critically low 3.4-5.0 [facility] Comment on above: Performed By: #### C MP #### [facility] [address] [address] [address] Blanquita Farris Protein [Mass/Vol] 7.3 g/dL Normal 6.1-8.2 [facility] Comment on above: Performed By: #### C MP #### [facility] [address] [address] [address] Blanquita Farris Sodium [Moles/Vol] 143 mmol/L Normal 137-145 [facility] Comment on above: Performed By: #### C MP #### [facility] [address] [address] [address] Blanquita Farris Urea nitrogen [Mass/Vol] 11.0 mg/dL Normal 7.0-17.0 [facility] Comment on above: Performed By: #### C MP #### [facility] [address] [address] [address] Blanquita Farris Urea nitrogen/Creatinine [Mass ratio] 14.7 mg/mg Normal [facility] Comment on above: Performed By: #### C MP #### [facility] [address] [address] [address] Blanquita Farris DIGITAL MAMMOGRAM SCREENING BILATERALon 11-22-2018 DIGITAL MAMMOGRAM SCREENING BILATERAL [facility] Department of Radiology [address] [place] [id number] ======== Patient Name: RENETTA HERNANDEZ : 1960 Sex: F Age: Race: White Pt. Location: [facility] Patient Status: D Ordered Date: 10/11/2018 3:20:00 PM Completed Date: 11/22/2018 12:09 PM Requesting Provider: DES GLYNN Attending Provider: DES GLYNN Report Copy To: Signs & Symptoms: Z12.31 Encntr screen mammogram for malignant neoplasm of breast I10 History: Serina Previous study [facility] 07/16/17 Comments: , Additional imaging, if necessary?: [...] recommended. Electronically signed by:Summer Cage. 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 [address] FREE T4on 09-20-2018 Free T4 [Mass/Vol] 0.93 ng/dL Normal 0.71-1.85 [facility] Comment on above: Performed By: #### 3 1522, [id number], 93144, [id number] #### [facility] [address] [place] [address], [facility] HEMOGLOBIN A1Con 09-20-2018 HbA1c (Bld) [Mass fraction] 269 mg/dL High 70-126 [facility] Comment on above: Performed By: #### 4 6447 #### [facility] [address] [facility] [place] [address], [facility] HbA1c (Bld) [Mass fraction] 11.0 % High 4.0-6.0 [facility] Comment on above: Performed By: #### 4 6447 #### [facility] [address] [facility] [place] [address], [facility] LIPID PROFILEon 09-20-2018 Cholesterol [Mass/Vol] 164 mg/dL Normal 120-200 [facility] Comment on above: Result Comment: CHOL ESTEROL REFERENCE RANGE: 20 YEARS AND OLDER CARDIOVASCULAR RISK Less than 200 mg/dl Low Risk 200 to 239 mg/dl Borderline Risk 240 mg/dl and greater High Risk Performed By: #### 3 1522, 07567, 39007, 27002 #### [facility] [address] [place] [address], [facility] Cholesterol in HDL [Mass/Vol] 30 mg/dL Normal 23-92 [facility] Comment on above: Result Comment: Slig ht variation in normal range could be due to gender and/or age. HDL CHOLESTEROL REFERENCE RANGE: 20 years and older Cardiovascular Risk > or =60 mg/dL Desirable 40 TO 59 mg/dL Low Risk <40 mg/dL High Risk Performed By: #### 3 1522, 10246, 22190, 08094 #### [facility] [address] [place] [address], [place] Cholesterol in LDL [Mass/Vol] 91 mg/dL Normal 0-130 [facility] Comment on above: Result Comment: LDL IS A CALCULATION LDL IS ONLY VALID IF THE TRIG IS LESS THAN 400. Performed By: #### 3 1522, 37604, 29889, 58296 #### [facility] [address] [place] [address], [place] Cholesterol.total/C holesterol in HDL [Mass ratio] 5.5 {ratio} High .0-4.5 [facility] Comment on above: Performed By: #### 3 1522, 92542, 39001, 92916 #### [facility] [address] [place] [address], [place] NON-HDL CHOLESTEROL 134 mg/dL Normal [facility] Comment on above: Performed By: #### 3 1522, 78357, 04663, 59725 #### [facility] [address] [place] [address], [place] Triglyceride [Mass/Vol] 215 mg/dL High 40-149 [facility] Comment on above: Result Comment: TRIG LYCERIDE REFERENCE RANGE: 20 YEARS AND OLDER CARDIOVASCULAR RISK LESS THAN 150 mg/dl LOW RISK 150 TO 199 mg/dl BORDERLINE RISK 200 mg/dl AND GREATER HIGH RISK Performed By: #### 3 1522, 13562, 79208, 39317 #### [facility] [address] [place] [address], [place] VLDL CHOL 43 mg/dL High 0-40 [facility] Comment on above: Performed By: #### 3 1522, 09315, 93075, 78535 #### [facility] [address] [place] [address], [facility] MICROALBUMIN URINE RANDOMon 09-20-2018 Creatinine [Mass/Vol] 148.0 mg/dL Normal [facility] Comment on above: Result Comment: Ther e are no established reference values for random urine specimens Performed By: #### 3 0067 #### [facility] [address] [place] [address], [facility] MICROALBUMIN <1.0 Normal [facility] Comment on above: Performed By: #### 3 0067 #### [facility] [address] [place] [address], [facility] MICROALBUMIN/CREATI NINE RATIO 'UNABLE TO CALC Normal 0.0-30.0 [facility] Comment on above: Performed By: #### 3 0067 #### [facility] [address] [place] [address], [facility] TSH3on 09-20-2018 TSH 3RD GENERATION 1.53 uIU/mL Normal 0.34-5.60 [facility] Comment on above: Performed By: #### 3 1522, 21446, 57718, 54434 #### [facility] [address] [place] [address], [facility] VITAMIN D 25-HYDROXYon 09-20 VITAMIN D 25-OH 33.8 ng/mL Normal 30.0-80.0 [facility] Comment on above: Result Comment: >80. 0 Toxicity possible Performed By: #### 3 1522, 37974, 66240, 46694 #### [facility] [address] [place] [address], [facility] US HEPATIC ECHOGRAMon 2018 US HEPATIC ECHOGRAM [facility] Department of Radiology [address] [place] [address] ======== Patient Name: RENETTA HERNANDEZ : 1960 Sex: F Age: Race: White Pt. Location: [facility] Patient Status: O Ordered Date: 06/19/2018 3:35:00 PM Completed Date: 08/22/2018 10:39 AM Requesting Provider: ANGELIQUE BENNETT Attending Provider: ANGELIQUE BENNETT Report Copy To: FAINA CHAPMAN Signs & Symptoms: K74.60 Unspecified cirrhosis of liver I10 History: Crum Lynne Comments: , , , Ordering Provider - [...] signed by:Russell De La Rosa. Transcribed by: [email or web address], User Resident: Electronically Signed by: RUSSELL DE LA ROSA @ 08/22/2018 12:53 PM [place] [facility] Comment on above: Order Comment: , , = ========= , Ordering Provider - ANGELIQUE BENNETT MD , US ABDOMINAL FOR ASCITES JIMENEZ ITEDon 06-28-2018 US ABDOMINAL FOR ASCITES LIMITED [facility] Department of Radiology [address] [place] [id number] ======== Patient Name: RENETTA HERNANDEZ : 1960 Sex: F Age: Race: White Pt. Location: 260 Patient Status: O Ordered Date: 06/19/2018 3:35:00 PM Completed Date: 06/28/2018 11:18 AM Requesting Provider: ANGELIQUE BENNETT Attending Provider: ANGELIQUE BENNETT Report Copy To: FAINA CHAPMAN Signs & Symptoms: K74.60 Unspecified cirrhosis of liver I10 History: Crum Lynne no show 06/28/18 10am Comments: , , [...] signed by:Russell De La Rosa. Transcribed by: [email or web address], User Resident: LAST FRANCO Electronically Signed by: RUSSELL DE LA ROSA @ 06/28/2018 12:53 PM I personally read this/these film(s) with this resident Normal [facility] Comment on above: Order Comment: , , = ========= , Ordering Provider - ANGELIQUE BENNETT MD , COMP METABOLIC PANELon 06-19 Albumin [Mass/Vol] 4.1 g/dL Normal 3.5-5.7 [facility] Comment on above: Performed By: #### 0 0121 #### [facility] [address] [place] [place] [address], [facility] ALKALINE PHOSPH 67 IU/L Normal 34-104 [facility] Comment on above: Performed By: #### 0 0121 #### [facility] [address] [place] [place] [address], [place] ALT [Catalytic activity/Vol] 21 U/L Normal 7-52 [facility] Comment on above: Performed By: #### 0 0121 #### [facility] [address] [place] [address], [place] AST [Catalytic activity/Vol] 22 U/L Normal 13-39 [facility] Comment on above: Performed By: #### 0 0121 #### [facility] [address] [place] [address], [place] Bilirubin [Mass/Vol] 0.5 mg/dL Normal 0.3-1.0 [facility] Comment on above: Performed By: #### 0 0121 #### [facility] [address] [place] [address], [place] Calcium [Mass/Vol] 9.7 mg/dL Normal 8.6-10.3 [facility] Comment on above: Performed By: #### 0 0121 #### [facility] [address] [place] [address], [facility] Chloride [Moles/Vol] 103 mmol/L Normal 98-107 [facility] Comment on above: Performed By: #### 0 0121 #### [facility] [address] [place] [address], [facility] CO2 [Moles/Vol] 28 mmol/L Normal 21-31 [facility] Comment on above: Performed By: #### 0 0121 #### [facility] [address] [place] [id number], [facility] Creatinine [Mass/Vol] 0.89 mg/dL Normal 0.60-1.20 [facility] Comment on above: Performed By: #### 0 0121 #### [facility] [address] [place] [address], [place] GFR/1.73 sq M predicted among blacks MDRD (S/P/Bld) [Vol rate/Area] mL/min/{1.73_m2} Normal >60 [facility] Comment on above: Performed By: #### 0 0121 #### [facility] [address] [place] [address], [facility] GFR/1.73 sq M predicted among non-blacks MDRD (S/P/Bld) [Vol rate/Area] mL/min/{1.73_m2} Normal >60 [facility] Comment on above: Performed By: #### 0 0121 #### [facility] [address] [place] [address], [place] Glucose [Mass/Vol] 175 mg/dL High 70-100 [facility] Comment on above: Performed By: #### 0 0121 #### [facility] [address] [place] [address], [facility] Potassium [Moles/Vol] 3.8 mmol/L Normal 3.5-5.1 [facility] Comment on above: Performed By: #### 0 0121 #### [facility] [address] [place] [address], [facility] Protein [Mass/Vol] 7.5 g/dL Normal 6.0-8.3 [facility] Comment on above: Performed By: #### 0 0121 #### [facility] [address] [place] [address], [facility] Sodium [Moles/Vol] 139 mmol/L Normal 136-145 [facility] Comment on above: Performed By: #### 0 0121 #### [facility] [address] [place] [address], [facility] Urea nitrogen [Mass/Vol] 14 mg/dL Normal 7-25 [facility] Comment on above: Performed By: #### 0 0121 #### [facility] [address] PROTHROMBIN TIMEon 9 INR Coag (PPP) [Relative time] 1.17 {INR} High 0.91-1.16 [facility] Comment on above: Result Comment: ACCC [...] 1995;108:[id number]. Performed By: #### 5 6101 #### [facility] [address] [place] [address], [facility] PT Coag (PPP) [Time] 14.9 s High 12.3-14.8 [facility] Comment on above: Result Comment: ALL RESULTS MUST BE INTERPRETED WITH RESPECT TO BLOOD DRAWING ARTIFACT OR DILUTION ERROR OF ANTICOAGULANT AT THE TIME OF SAMPLING. Performed By: #### 5 6101 #### [facility] [address] [place] [address], [facility] Vital Signs Date Time Vital Sign Value Performing Clinician Facility 01-02-2024 11:52-0400 Blood Pressure Location NGACORTNEY PAGERY [facility] 01-02-2024 11:52-0400 Diastolic blood pressure 82 mm[Hg] NGA JUANITO [facility] 01-02-2024 11:52-0400 Heart rate 78 /min NGA JUANITO [facility] 01-02-2024 11:52-0400 Systolic blood pressure 130 mm[Hg] NGA JUANITO [facility] 12-05-2023 11:55-0400 Diastolic blood pressure 54 mm[Hg] NGA JUANITO [facility] 12-05-2023 11:55-0400 Mean blood pressure 77 mm[Hg] NGA JUANITO [facility] 12-05-2023 11:55-0400 Systolic blood pressure 122 mm[Hg] NGA JUANITO [facility] 12-05-2023 11:44-0400 Blood Pressure Location NGA JUANITO [facility] 12-05-2023 11:44-0400 Diastolic blood pressure 107 mm[Hg] NGA JUANITO [facility] 12-05-2023 11:44-0400 Heart rate 95 /min NGA JUANITO [facility] 12-05-2023 11:44-0400 Systolic blood pressure 128 mm[Hg] NGA JUANITO [facility] 11-28-2023 11:43-0400 Blood Pressure Location NGA JUANITO [facility] 11-28-2023 11:43-0400 Diastolic blood pressure 67 mm[Hg] NGA JUANITO [facility] 11-28-2023 11:43-0400 Heart rate 95 /min NGA JUANITO [facility] 11-28-2023 11:43-0400 Systolic blood pressure 148 mm[Hg] NGA JUANITO [facility] 11-21-2023 11:37-0400 Blood Pressure Location NGA JUANITO [facility] 11-21-2023 11:37-0400 Body temperature 97.88 [degF] NGA JUANITO [facility] 11-21-2023 11:37-0400 Diastolic blood pressure 11 mm[Hg] NGA JUANITO [facility] 11-21-2023 11:37-0400 Heart rate 74 /min NGA JUANITO [facility] 11-21-2023 11:37-0400 Respiratory rate 15 /min NGA JUANITO [facility] 11-21-2023 11:37-0400 Systolic blood pressure 131 mm[Hg] NGA JUANITO [facility] 11-14-2023 11:36-0400 Blood Pressure Location NGA JUANITO [facility] 11-14-2023 11:36-0400 Body temperature 97.7 [degF] NGA JUANITO [facility] 11-14-2023 11:36-0400 Diastolic blood pressure 88 mm[Hg] NGA JUANITO [facility] 11-14-2023 11:36-0400 Heart rate 78 /min NGA JUANITO [facility] 11-14-2023 11:36-0400 Systolic blood pressure 150 mm[Hg] NGA JUANITO [facility] 06-23-2023 13:50-0500 Body height 157.5 cm Andre Funes MD Work Phone: [facility] 06-23-2023 13:50-0500 Body temperature 97.59 [degF] Andre Funes MD Work Phone: [facility] 06-23-2023 13:50-0500 Body weight 91.1 kg Andre Funes MD Work Phone: [facility] 06-23-2023 13:50-0500 Diastolic blood pressure 93 mm[Hg] Andre Funes MD Work Phone: [facility] 06-23-2023 13:50-0500 Heart rate 107 /min Andre Funes MD Work Phone: [facility] 06-23-2023 13:50-0500 Respiratory rate 18 /min Andre Funes MD Work Phone: [facility] 06-23-2023 13:50-0500 SaO2% (BldA) [Mass fraction] 94 % Andre Funes MD Work Phone: [facility] 06-23-2023 13:50-0500 Systolic blood pressure 149 mm[Hg] Andre Funes MD Work Phone: [facility] 05-03-2023 10:34-0500 Blood Pressure Location NGAYOVANI WILKINS [facility] 05-03-2023 10:34-0500 Diastolic blood pressure 88 mm[Hg] NGA JUANITO [facility] 05-03-2023 10:34-0500 Heart rate 91 /min NGA JUANITO [facility] 05-03-2023 10:34-0500 Respiratory rate 16 /min NGA JUANITO [facility] 05-03-2023 10:34-0500 Systolic blood pressure 138 mm[Hg] NGA JUANITO [facility] 11-14-2023 14:15-0500 Body height 157.48 cm Rodger Davila Other [facility] Other 04-05-2023 14:15-0500 Body mass index (BMI) [Ratio] 37.31 kg/m2 Rodger Davila Other [facility] Other 04-05-2023 14:15-0500 Body weight 92.53 kg Rodger Davila Other [facility] Other 04-05-2023 14:15-0500 Diastolic blood pressure 82 mm[Hg] Rodger Davila Other [facility] Other 04-05-2023 14:15-0500 Systolic blood pressure 143 mm[Hg] Rodger Davila Other [facility] Other 09-28-2022 14:45-0400 Body height 157.48 cm Rodger Davila Other [facility] Other 09-28-2022 14:45-0400 Body mass index (BMI) [Ratio] 37.86 kg/m2 Rodger Davila Other [facility] Other 09-28-2022 14:45-0400 Body weight 93.9 kg Rodger Davila Other [facility] Other 09-28-2022 14:45-0400 Diastolic blood pressure 77 mm[Hg] Rodger Davila Other [facility] Other 09-28-2022 14:45-0400 SaO2% (BldA) [Mass fraction] 95 % Rodger Davila Other [facility] Other 09-28-2022 14:45-0400 Systolic blood pressure 156 mm[Hg] Rodger Davila Other [facility] Other 06-25-2022 13:45-0500 Diastolic blood pressure 82 mm[Hg] Andre Funes MD Work Phone: [facility] 06-25-2022 13:45-0500 Systolic blood pressure 152 mm[Hg] Andre Funes MD Work Phone: [facility] 06-25-2022 13:44-0500 Body height 157.5 cm Andre Funes MD Work Phone: [facility] 06-25-2022 13:44-0500 Body temperature 97.5 [degF] Andre Funes MD Work Phone: [facility] 06-25-2022 13:44-0500 Body weight 95.17 kg Andre Funes MD Work Phone: [facility] 06-25-2022 13:44-0500 Heart rate 88 /min Andre Funes MD Work Phone: [facility] 06-25-2022 13:44-0500 Respiratory rate 16 /min Andre Funes MD Work Phone: [facility] 06-25-2022 13:44-0500 SaO2% (BldA) [Mass fraction] 97 % Andre Funes MD Work Phone: [facility] 06-22-2022 14:30-0500 Body height 157.48 cm Rodger Davila Other [facility] Other 06-22-2022 14:30-0500 Body mass index (BMI) [Ratio] 37.86 kg/m2 Rodger Davila Other [facility] Other 06-22-2022 14:30-0500 Body weight 93.9 kg Rodger Davila Other [facility] Other 06-22-2022 14:30-0500 Diastolic blood pressure 80 mm[Hg] Rodger Davila Other [facility] Other 06-22-2022 14:30-0500 Systolic blood pressure 130 mm[Hg] Rodger Davila Other [facility] Other 03-04-2022 15:45-0400 Body height 157.48 cm Rodger Davila Other [facility] Other 03-04-2022 15:45-0400 Body mass index (BMI) [Ratio] 38.59 kg/m2 Rodger Davila Other [facility] Other 03-04-2022 15:45-0400 Body weight 95.71 kg Rodger Davila Other [facility] Other 12-17-2021 13:02-0400 Body height 157.5 cm Andre Funes MD Work Phone: [facility] 12-17-2021 13:02-0400 Body temperature 97.59 [degF] Andre Funes MD Work Phone: [facility] 12-17-2021 13:02-0400 Body weight 97.98 kg Andre Funes MD Work Phone: [facility] 12-17-2021 13:02-0400 Diastolic blood pressure 83 mm[Hg] Andre Funes MD Work Phone: [facility] 12-17-2021 13:02-0400 Heart rate 92 /min Andre Funes MD Work Phone: [facility] 12-17-2021 13:02-0400 Respiratory rate 16 /min Andre Funes MD Work Phone: [facility] 12-17-2021 13:02-0400 SaO2% (BldA) [Mass fraction] 95 % Andre Funes MD Work Phone: [facility] 12-17-2021 13:02-0400 Systolic blood pressure 145 mm[Hg] Andre Funes MD Work Phone: [facility] Encounters Encounter Date Encounter Type Care Provider Facility Start: 02-29-2024 ambulatory NGA Tano WILKINS Facili ty:JAMIE [facility] Start: 02-14-2024 End: 02-14-2024 ambulatory MARY MARQUES Not Available Start: 02-07-2024 End: 02-07-2024 ambulatory DENI C DIDION Not Available Start: 01-30-2024 End: 01-30-2024 ambulatory RAJAT AGUILAR Not Available Start: 01-10-2024 End: 01-10-2024 ambulatory DENI C DIDION Not Available Start: 01-02-2024 End: 01-02-2024 ambulatory NGA Tano PAGERY Facility:JAMIE [facility] Start: 01-02-2024 End: 01-02-2024 Patient encounter procedure NGA PAGERY [facility] Start: 12-19-2023 ambulatory NGA E JUANITO Facili ty:[facility] [place] Start: 12-15-2023 End: 12-15-2023 ambulatory DENI C DIDION Not Available Start: 12-05-2023 End: 12-05-2023 ambulatory NGA Tano JUANITO Facility:JAMIE [facility] Start: 12-05-2023 End: 12-05-2023 Patient encounter procedure NGA PAGERY [facility] Start: 11-28-2023 End: 11-28-2023 ambulatory NGA E JUANITO Facility:[facility]AMIE [facility] Start: 11-28-2023 End: 11-28-2023 Patient encounter procedure NGA E JUANITO [facility] Start: 11-21-2023 End: 11-21-2023 ambulatory NGA E JUANITO Facility: [facility] Start: 11-21-2023 End: 11-21-2023 Patient encounter procedure NGA E JUANITO [facility] AMS [facility] Start: 11-16-2023 End: 11-16-2023 ambulatory RAJAT AGUILAR Not Available Start: 11-14-2023 End: 11-14-2023 ambulatory NGA E JUANITO Facility:[facility] Start: 11-14-2023 End: 11-14-2023 Patient encounter procedure NGA E JUANITO [facility] Start: 11-10-2023 End: 11-10-2023 ambulatory TAN BAGLEY Not Available Start: 11-08-2023 End: 11-08-2023 ambulatory DENI CARBAJAL Not Available Start: 11-07-2023 End: 11-07-2023 ambulatory NGA E JUANITO Facility: [place] Start: 11-07-2023 End: 11-07-2023 Patient encounter procedure NGA E JUANITO [facility] AMS [facility] Start: 10-31-2023 End: 10-31-2023 ambulatory NGA E JUANITO Facility: [place] Start: 10-31-2023 End: 10-31-2023 Patient encounter procedure NGA E JUANITO [facility] AMS [facility] Start: 10-20-2023 End: 10-20-2023 ambulatory DENI CARBAJAL Not Available Start: 10-13-2023 End: 10-13-2023 ambulatory RAJAT AGUILAR Not Available Start: 09-28-2023 End: 09-28-2023 ambulatory DENI CARBAJAL Not Available Start: 08-02-2023 End: 08-02-2023 ambulatory CHAVA QUIROZ [facility] Start: 06-23-2023 End: 06-23-2023 ambulatory ANDRE FUNES Facility:[facility] Start: 06-23-2023 End: 06-23-2023 Office outpatient visit 15 minutes Andre Funes MD Work Phone: Hematology/Oncology Comment on above: MENDEZ (nonalcoholic s teatohepatitis) (Primary Dx); 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); Thrombocytopenia due to hypersplenism; Thrombocytopenia (HCC); Diabetic gastroparesis (HCC) (HCC) Start: 06-22-2023 End: 06-22-2023 ambulatory Soheila Delgado Other [facility] Other Start: 06-22-2023 Telephone encounter Soheila Delgado [facility] Start: 06-21-2023 End: 06-21-2023 ambulatory MAHAMED [facility] Start: 06-01-2023 End: 06-01-2023 ambulatory LUL DUTTON Not Available Start: 05-24-2023 End: 05-24-2023 ambulatory LUL DUTTON Not Available Start: 05-03-2023 End: 05-03-2023 ambulatory NGA WILKINS Facility:[facility] Start: 05-03-2023 End: 05-03-2023 Patient encounter procedure NGA WILKINS [facility] Start: 04-12-2023 End: 04-12-2023 ambulatory Rodger Davila Other [facility] Other Start: 04-12-2023 Telephone encounter Rodger cabrales [facility] Start: 04-05-2023 End: 04-05-2023 ambulatory Rodgre Davila Other [facility] Other Start: 04-05-2023 Office outpatient vi sit 15 minutes Rodger Davila [facility] Start: 03-17-2023 ambulatory NGA WILKINS Facility :[facility] Start: 10-19-2022 End: 10-20-2022 ambulatory SHAKIRA RONALDO Facility:[facility] Start: 10-15-2022 ambulatory SHAKIRA RONALDO Facility: [facility] Start: 10-06-2022 End: 10-06-2022 ambulatory SHAKIRA RONALDO Facility:[facility] Start: 09-28-2022 End: 09-28-2022 ambulatory Rodger Lola Other [facility] Other Start: 09-28-2022 Office outpatient vi sit 15 minutes Rodger Davila [facility] Start: 06-25-2022 End: 06-25-2022 Office outpatient visit 15 minutes Andre Funes MD Work Phone: Hematology/Oncology Comment on above: Cirrhosis of liver n ot due to alcohol (HCC) (Primary Dx); MENDEZ (nonalcoholic steatohepatitis); Thrombocytopenia due to hypersplenism Start: 06-22-2022 End: 06-22-2022 ambulatory Rodger Hunterormack Other [facility] Other Start: 06-22-2022 Office outpatient vi sit 15 minutes Rodger Davila [facility] Start: 06-10-2022 End: 06-11-2022 ambulatory SHAKIRA RONALDO Facility:[facility] Start: 05-22-2022 End: 05-22-2022 ambulatory SHAKIRA RONALDO Facility:[facility] Start: 04-01-2022 End: 04-01-2022 ambulatory Rodger Davila Other [employer] Other Start: 04-01-2022 Telephone encounter Rodger cabrales [facility] Start: 03-16-2022 End: 03-16-2022 ambulatory SHAKIRA RONALDO Facility:[facility] Start: 03-15-2022 End: 03-16-[address] DOCTOR RAMOS Facility:[facility] Start: 03-04-2022 End: 03-04-2022 ambulatory Rodger Davila Other [place] [employer] Other Start: 03-04-2022 Office outpatient ne w 45 minutes Rodger Davila [facility] Start: 02-16-2022 End: 03-01-2022 ambulatory UNKNOWN PROVIDER Facility:[facility] Start: 12-17-2021 End: 12-17-2021 ambulatory Andre Funes MD Work Phone: Hematology/Oncology Comment on above: Thrombocytopenia due to hypersplenism (Primary Dx); 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); MENDEZ (nonalcoholic steatohepatitis) Start: 12-17-2021 End: 12-17-2021 Patient encounter procedure Andre Funes MD Work Phone: [place] Start: 11-25-2021 End: 11-26-2021 ambulatory SHAKIRA HIGGINS Facility:[facility] Start: 05-17-2021 End: 05-17-[address] JENNIFER TURNER Facility:[facility] Start: 08-05-2020 End: 08-05-2020 Patient encounter procedure External Provider [facility] Start: 08-05-2020 Results Only External Provider Exter nal-NonCCF Procedures Date Procedure Procedure Detail Performing Clinician Start: 12-10-2020 Adult depression screening assessment Andre Funes MD Work Phone: Start: 09-24-2020 Esophagogastroduodenoscopy NGA Gao Comment on above: with Right Hemorrhoidectomy Start: 08-05-2020 EXTERNAL LAB External Provider Start: 04-09-2020 Colonoscopy NGA WILKINS Bilateral tubal ligation SAMMY WILKINS Bilateral tubal ligation SAMMY WILKINS Bile duct stone removal MILTON WILKINS Bile duct stone removal MILTON WILKINS section NGA JUÁREZ OTTOMurray Laparoscopic cholecystectomy NGA WILKINS Tonsillectomy and adenoidectomy NGA WILKINS Plan of Treatment Date Care Activity Detail Author Start: 06-25-2025 DIABETES SCREEN DIABETES SCREEN [facility] Start: 12-17-2024 DIABETES SCREEN DIABETES SCREEN [facility] Start: 06-23-2024 End: 09-22-2024 [id number] [Mass/volume] in Serum or Plasma ALPHA FETOPROTEIN BL Lab Routine MENDEZ (nonalcoholic steatohepatitis) 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 Expected: 06/23/2024 (Approximate), Expires: 09/22/2024 [facility] [place] Work Phone: Comment on above: Expected: 06/23/2024 (Approximate), Expires: 09/22/2024 Start: 06-23-2024 End: 06-23-2024 CBC W Auto Differential panel - Blood CBC + DIFF Lab Routine MENDEZ (nonalcoholic steatohepatitis) 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 Expected: 06/23/2024 (Approximate), Expires: 06/23/2024 [facility] Work Phone: Comment on above: Expected: 06/23/2024 (Approximate), Expires: 06/23/2024 Start: 06-23-2024 End: 06-23-2024 Cobalamin (Vitamin B12) [Mass/volume] in Serum or Plasma VITAMIN B12 BLOOD Lab Routine MENDEZ (nonalcoholic steatohepatitis) 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 Expected: 06/23/2024 (Approximate), Expires: 06/23/2024 [facility] [place] Work Phone: Comment on above: Expected: 06/23/2024 (Approximate), Expires: 06/23/2024 Start: 06-23-2024 End: 06-23-2024 Comprehensive metabolic 2000 panel - Serum or Plasma COMP METABOLIC PANEL Lab Routine MENDEZ (nonalcoholic steatohepatitis) 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 Expected: 06/23/2024 (Approximate), Expires: 06/23/2024 [facility] [place] Work Phone: Comment on above: Expected: 06/23/2024 (Approximate), Expires: 06/23/2024 Start: 06-23-2024 End: 06-23-2024 Ferritin [Mass/volume] in Serum or Plasma FERRITIN BLD Lab Routine MENDEZ (nonalcoholic steatohepatitis) 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 Expected: 06/23/2024 (Approximate), Expires: 06/23/2024 [facility] [place] Work Phone: Comment on above: Expected: 06/23/2024 (Approximate), Expires: 06/23/2024 Start: 06-23-2024 End: 06-23-2024 Folate [Mass/volume] in Serum or Plasma FOLATE SERUM Lab Routine MENDEZ (nonalcoholic steatohepatitis) 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 Expected: 06/23/2024 (Approximate), Expires: 06/23/2024 [facility] [place] Work Phone: Comment on above: Expected: 06/23/2024 (Approximate), Expires: 06/23/2024 Start: 06-23-2024 End: 06-23-2024 Iron and Iron binding capacity panel - Serum or Plasma IRON + TIBC Lab Routine MENDEZ (nonalcoholic steatohepatitis) 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 Expected: 06/23/2024 (Approximate), Expires: 06/23/2024 [facility] [place] Work Phone: Comment on above: Expected: 06/23/2024 (Approximate), Expires: 06/23/2024 Start: 06-25-2023 End: 06-25-2023 CBC W Auto Differential panel - Blood CBC + DIFF Lab Routine 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 Expected: 06/25/2023 (Approximate), Expires: 06/25/2023 [facility] [place] Work Phone: Comment on above: Expected: 06/25/2023 (Approximate), Expires: 06/25/2023 Start: 06-25-2023 End: 06-25-2023 Cobalamin (Vitamin B12) [Mass/volume] in Serum or Plasma VITAMIN B12 BLOOD Lab Routine 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 Expected: 06/25/2023 (Approximate), Expires: 06/25/2023 [facility] [place] Work Phone: Comment on above: Expected: 06/25/2023 (Approximate), Expires: 06/25/2023 Start: 06-25-2023 End: 06-25-2023 Comprehensive metabolic 2000 panel - Serum or Plasma COMP METABOLIC PANEL Lab Routine 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 Expected: 06/25/2023 (Approximate), Expires: 06/25/2023 [facility] [place] Work Phone: Comment on above: Expected: 06/25/2023 (Approximate), Expires: 06/25/2023 Start: 06-25-2023 End: 07-25-2023 Dup-scan artl patrick abdl/pel/scrot&/rpr orgn com US DOPPLER COMPLETE Radiology Routine 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 Expected: 06/25/2023 (Approximate), Expires: 07/25/2023 [facility] [place] Work Phone: Comment on above: Expected: 06/25/2023 (Approximate), Expires: 07/25/2023 Start: 06-25-2023 End: 06-25-2023 Ferritin [Mass/volume] in Serum or Plasma FERRITIN BLD Lab Routine 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 Expected: 06/25/2023 (Approximate), Expires: 06/25/2023 [facility] [place] Work Phone: Comment on above: Expected: 06/25/2023 (Approximate), Expires: 06/25/2023 Start: 06-25-2023 End: 06-25-2023 Folate [Mass/volume] in Serum or Plasma FOLATE SERUM Lab Routine 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 Expected: 06/25/2023 (Approximate), Expires: 06/25/2023 [facility] [place] Work Phone: Comment on above: Expected: 06/25/2023 (Approximate), Expires: 06/25/2023 Start: 06-25-2023 End: 06-25-2023 Iron and Iron binding capacity panel - Serum or Plasma IRON + TIBC Lab Routine 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 Expected: 06/25/2023 (Approximate), Expires: 06/25/2023 [facility] [place] Work Phone: Comment on above: Expected: 06/25/2023 (Approximate), Expires: 06/25/2023 Start: 06-25-2023 End: 07-25-2023 US ABD LIVER VASCULAR US ABD LIVER VASCULAR Radiology Routine 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 Expected: 06/25/2023 (Approximate), Expires: 07/25/2023 [facility] Work Phone: Comment on above: Expected: 06/25/2023 (Approximate), Expires: 07/25/2023 Start: 05-23-2023 Depression Assessment Depression Ass essment [facility] Start: 06-19-2022 End: 08-19-2022 [id number] [Mass/volume] in Serum or Plasma ALPHA FETOPROTEIN BL Lab Routine 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) MENDEZ (nonalcoholic steatohepatitis) Expected: 06/19/2022 (Approximate), Expires: 08/19/2022 [facility] [place] Work Phone: Comment on above: Expected: 06/19/2022 (Approximate), Expires: 08/19/2022 Start: 06-19-2022 End: 12-17-2022 CBC W Auto Differential panel - Blood CBC + DIFF Lab Routine 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) MENDEZ (nonalcoholic steatohepatitis) Expected: 06/19/2022 (Approximate), Expires: 12/17/2022 [facility] [place] Work Phone: Comment on above: Expected: 06/19/2022 (Approximate), Expires: 12/17/2022 Start: 06-19-2022 End: 12-17-2022 Cobalamin (Vitamin B12) [Mass/volume] in Serum or Plasma VITAMIN B12 BLOOD Lab Routine 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) MENDEZ (nonalcoholic steatohepatitis) Expected: 06/19/2022 (Approximate), Expires: 12/17/2022 [facility] [place] Work Phone: Comment on above: Expected: 06/19/2022 (Approximate), Expires: 12/17/2022 Start: 06-19-2022 End: 12-17-2022 Comprehensive metabolic 2000 panel - Serum or Plasma COMP METABOLIC PANEL Lab Routine 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) MENDEZ (nonalcoholic steatohepatitis) Expected: 06/19/2022 (Approximate), Expires: 12/17/2022 [facility] [place] Work Phone: Comment on above: Expected: 06/19/2022 (Approximate), Expires: 12/17/2022 Start: 06-19-2022 End: 12-17-2022 Ferritin [Mass/volume] in Serum or Plasma FERRITIN BLD Lab Routine 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) MENDEZ (nonalcoholic steatohepatitis) Expected: 06/19/2022 (Approximate), Expires: 12/17/2022 [facility] [place] Work Phone: Comment on above: Expected: 06/19/2022 (Approximate), Expires: 12/17/2022 Start: 06-19-2022 End: 12-17-2022 Folate [Mass/volume] in Serum or Plasma FOLATE SERUM Lab Routine 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) MENDEZ (nonalcoholic steatohepatitis) Expected: 06/19/2022 (Approximate), Expires: 12/17/2022 [facility] [place] Work Phone: Comment on above: Expected: 06/19/2022 (Approximate), Expires: 12/17/2022 Start: 06-19-2022 End: 12-17-2022 Iron and Iron binding capacity panel - Serum or Plasma IRON + TIBC Lab Routine 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) MENDEZ (nonalcoholic steatohepatitis) Expected: 06/19/2022 (Approximate), Expires: 12/17/2022 [facility] [place] Work Phone: Comment on above: Expected: 06/19/2022 (Approximate), Expires: 12/17/2022 Start: 06-19-2022 End: 01-16-2023 Us abdominal real time w/image limited US ABD RT UPPER QUADRANT Radiology Routine 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) MENDEZ (nonalcoholic steatohepatitis) Expected: 06/19/2022 (Approximate), Expires: 01/16/2023 [facility] [place] Work Phone: Comment on above: Expected: 06/19/2022 (Approximate), Expires: 01/16/2023 Start: 05-23-2022 DEPRESSION ASSESSMENT DEPRESSION ASS ESSMENT [facility] Start: 01-21-2022 Influenza vaccination INFLUENZA (#1) [facility] Start: 12-10-2021 Adult depression screening assessment DEPRESSION SCREENING [facility] Start: 09-29-2021 COVID-19 VACCINE (4 - Booster for Pfizer series) COVID-19 VACCINE (4 - Booster for Pfizer series) [facility] Start: 01-22-2020 Influenza vaccination INFLUENZA (#1) [facility] Start: 2020 RSV Vaccine (1 - 1-d ose 60+ series) RSV Vaccine (1 - 1-dose 60+ series) [facility] Start: 11-07-2017 HEPATITIS B (2 of 3 - Risk 3-dose series) HEPATITIS B (2 of 3 - Risk 3-dose series) [facility] Start: 11-07-2017 Hepatitis B Vaccine (2 of 3 - Risk 3-dose series) Hepatitis B Vaccine (2 of 3 - Risk 3-dose series) [facility] Start: 01-19-2010 Screening for malign ant neoplasm of colon [facility] Start: 01-19-2010 SHINGRIX VACCINE (1 of 2) SHINGRIX VACCINE (1 of 2) [facility] Start: 01-06-2010 PNEUMOCOCCAL (2 - PCV) PNEUMOCOCCAL (2 - PCV) [facility] Start: 01-06-2010 Pneumococcal vaccination Pneumococcal Vaccine (2 of 2 - PCV) [facility] Start: 01-19-2005 COLOGUARD (FIT-DNA) COLOGUARD (FIT-D NA) [facility] Start: 01-19-2005 Colonoscopy COLONOSCOPY [facility] Start: 01-19-2005 COLORECTAL CANCER SCREENING COLORECTAL CANCER SCREENING [facility] Start: 01-19-[address] COLONOGRAPHY [facility] Start: 01-19-2005 DIABETES SCREEN DIABETES SCREEN [facility] Start: 01-19-2005 FECAL OCCULT BLOOD FECAL OCCULT BLOO D [facility] Start: 01-19-2005 LIPID SCREEN LIPID SCREEN [facility] Start: 01-19-2005 Screening for malign ant neoplasm of colon [facility] Start: 01-19-2005 SIGMOIDOSCOPY SIGMOIDOSCOPY [facility] Start: 2000 Mammography MAMMOGRAM [facility] Start: 2000 Screening for malign ant neoplasm of breast Mammogram Screening [facility] Start: 01-19-1990 HPV TESTING HPV TESTING [facility] Start: 01-19-1990 Screening for malign ant neoplasm of cervix HPV Testing [facility] Start: 01-19-1981 PAP TESTING PAP TESTING [facility] Start: 01-19-1981 Screening for malign ant neoplasm of cervix Pap Testing [facility] Start: 01-19-1979 Hepatitis A Vaccine (1 of 2 - Risk 2-dose series) Hepatitis A Vaccine (1 of 2 - Risk 2-dose series) [facility] Start: 01-19-1979 Urine microalbumin profile [facility] Start: 01-19-1978 Annual PCP Team Curriculum Consultant paul Disease Visit Annual PCP Team Chronic Disease Visit [facility] Start: 01-19-1978 Hepatitis B surface antibody level LDL Cholesterol [facility] Start: 01-19-1978 HEPATITIS C SCREENING HEPATITIS C [facility] Start: 01-19-1978 Hepatitis C screening Hepatitis C [facility] Start: 01-19-1978 HIV SCREENING HIV SCREENING [facility] Start: 01-19-1978 HIV screening HIV Screening [facility] Start: 1972 Adult depression screening assessment DEPRESSION SCREENING [facility] Start: 01-19-1970 Diabetic foot examination Diabetic Foot Exam [facility] Start: 01-19-1970 Glaucoma screening Dilated Retinal E xam [facility] Start: 01-19-1970 Hepatitis B screening Urine Al bumin:Creatinine Ratio [facility] Start: 01-19-1965 Hemoglobin A1c measurement HbA1C [facility] Start: 01-19-1961 HEPATITIS A (1 of 2 - Risk 2-dose series) HEPATITIS A (1 of 2 - Risk 2-dose series) [facility] End: 07-22-2024 US ABD RIGHT UPPER QUADRANT US ABD RIGHT UPPER QUADRANT Radiology Routine MENDEZ (nonalcoholic steatohepatitis) 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 1 Occurrences starting 06/23/2023 until 07/22/2024 [facility] Work Phone: Comment on above: 1 Occurrences starti ng 06/23/2023 until 07/22/2024 [facility] Immunizations Immunization Date Immunization Notes Care Provider Celeste fagan 03-23-2023 influenza virus vacc ine, unspecified formulation NGA WILKINS [facility] 03-17-2023 influenza virus vacc ine, unspecified formulation NGA WILKINS [facility] 03-24-2022 influenza virus vacc ine, unspecified formulation NGA WILKINS [facility] 03-24-2022 SARS-CoV-2 (COVID-19 ) [id number] NGA WILKINS [facility] 06-01-2021 influenza virus vacc ine, unspecified formulation NGA WILKINS [facility] 06-01-2021 Influenza, injectabl e, Madin [place] Canine Kidney, preservative free, quadrivalent Andre Funes MD Work Phone: [facility] 06-01-2021 SARS-CoV-2 (COVID-19 ) mRNA BNT-162b2 vax NGA WILKINS [facility] 09-09-2020 COVID-19 vaccine, ag e 12+ yr (PFIZER-BIONTECH - PURPLE TOP) Andre Funes MD Work Phone: [facility] Comment on above: Result Comment: most recent given 09/09/20 08-20-2020 COVID-19 vaccine, ag e 12+ yr (PFIZER-BIONTECH - PURPLE TOP) Andre Funes MD Work Phone: [facility] 06-04-2020 zoster vaccine recombinant Andre Funes MD Work Phone: [facility] 03-23-2020 zoster vaccine recombinant Anrde Funes MD Work Phone: [facility] 02-14-2020 influenza virus vacc ine, unspecified formulation NGA WILKINS [facility] 02-14-2020 Influenza, injectabl e, Madin [place] Canine Kidney, preservative free, quadrivalent Andre Funes MD Work Phone: [facility] 06-05-2019 influenza virus vacc ine, unspecified formulation NGA WILKINS [facility] 06-05-2019 Influenza, injectabl e, Madin [place] Canine Kidney, preservative free, quadrivalent Andre Funes MD Work Phone: [facility] 05-21-2019 influenza virus vacc ine, unspecified formulation Andre Funes MD Work Phone: [facility] 05-21-2019 influenza, unspecifi ed formulation NGACORTNEY WILKINS [facility] 04-19-2018 influenza virus vacc ine, unspecified formulation NGA JUANITO [facility] 04-19-2018 influenza, injectabl e, quadrivalent, preservative free Andre Funes MD Work Phone: [facility] 10-10-2017 hepatitis B vaccine, pediatric or pediatric/adolescent dosage Andre Funes MD Work Phone: [facility] 10-10-2017 hepatitis B vaccine, unspecified formulation Andre Funes MD Work Phone: [facility] 05-11-2017 hepatitis B vaccine, pediatric or pediatric/adolescent dosage Andre Funes MD Work Phone: [facility] 04-12-2017 hepatitis B vaccine, adult dosage Andre Funes MD Work Phone: [facility] 03-21-2017 influenza virus vacc ine, unspecified formulation NGA WILKINS [facility] 03-21-2017 influenza, injectabl e, quadrivalent, preservative free Andre Funes MD Work Phone: [facility] 04-12-2016 influenza virus vacc ine, unspecified formulation NGA WILKINS [facility] 04-12-2016 influenza, injectabl e, quadrivalent, preservative free Andre Funes MD Work Phone: [facility] 03-23-2014 influenza virus vacc ine, unspecified formulation Adnre Funes MD Work Phone: [facility] 03-23-2014 influenza, unspecifi ed formulation NGA WILKINS [facility] 01-06-2009 pneumococcal polysaccharide vaccine, 23 valent Andre Funes MD Work Phone: [facility] Payers Date Payer Category Payer Medicare DEVOTED MEDICARE DEVOTED HEALTH [id number] 2020-Present [phone] [address] [place] [id number] HMO [id number] 2020 Medicare DEVOTED MEDICARE DEVOTED HEALTH [place] [id number] 2020-Present [phone] [address] [place] [address] O [id number] 2020 Unknown [id number] 2020 Medicaid [id number] 2020 Medicaid MEDICAID [facility] MEDICAID [id number] 2020-Present [phone] [address] [place] [address] Medicaid [id number] 2020 Medicare MEDICARE MEDICAR E A AND B [id number] 2020-Present [place] Medicare [id number] 1960 Unknown [id number] 2.16.840.1.097355.3.579.2.593 1960 Unknown [id number] 2.16.840.1.029592.3.579.2.732 1960 Unknown [id number] 2.16.840.1.504127.3.579.2.593 1960 Unknown [id number] 2.16.840.1.336273.3.579.2.593 1960 Unknown [id number] 2.16.840.1.469027.3.579.2.593 1960 Unknown [id number] 2.16.840.1.461145.3.579.2.593 1960 Unknown [id number] 2.16.840.1.347856.3.579.2.593 1960 Unknown [id number] 2.16.840.1.397596.3.579.2.593 1960 Unknown [id number] 2.16.840.1.381354.3.579.2.593 1960 Unknown [id number] 2.16.840.1.808146.3.579.2.593 1960 Unknown [id number] 2.16840.1.571906.3.579.2.593 1960 Unknown [id number] 2.16.840.1.047813.3.579.2.593 1960 Unknown [id number] 2.16.840.1.634639.3.579.2.593 1960 Unknown [id number] 2.16.840.1.917650.3.579.2.727 1960 Unknown [id number] 2.16.840.1.545204.3.579.2.727 1960 Unknown [id number] 2.16.840.1.410259.3.579.2.727 1960 Unknown [id number] 2.16.840.1.016983.3.579.2.727 1960 Unknown [id number] 2.16.840.1.996778.3.579.2.727 1960 Unknown [id number] 2.16.840.1.187152.3.579.2.727 1960 Unknown [id number] 2.16.840.1.179925.3.579.2.727 1960 Unknown [id number] 2.16.840.1.924010.3.579.2.727 1960 Unknown [id number] 2.16.840.1.254049.3.579.2.727 1960 Unknown [id number] 2.16.840.1.896193.3.579.2.72 1960 Unknown [id number] 2.16.840.1.119964.3.579.2.727 1960 Unknown [id number] 2.16.840.1.963328.3.579.2.1258 1960 Unknown [id number] 2.16.840.1.990534.3.579.2.1258 1960 Unknown [id number] 2.16840.1.138376.3.579.2.1258 1960 Unknown [id number] 2.16.840.1.035022.3.579.2.1258 1960 Unknown [id number] 2.16.840.1.270866.3.579.2.1258 1960 Unknown [id number] 2.16.840.1.753122.3.579.2.1258 1960 Unknown [id number] 2.16.840.1.772247.3.579.2.1258 1960 Unknown [id number] 2.16.840.1.614893.3.579.2.1258 1960 Unknown [id number] 2.16.840.1.868168.3.579.2.1258 1960 Unknown [id number] 2.16.840.1.743894.3.579.2.1258 1960 Unknown [id number] 2.16.840.1.593766.3.579.2.1258 1960 Unknown [id number] 2.16.840.1.817246.3.579.2.1259 1960 Unknown [id number] 2.16.840.1.323188.3.579.2.1259 1959 Medicaid [id number] Social History Date Type Detail Facility Tobacco smoking stat [facility] Unknown if ever smoked [facility] Start: 1960 Sex Assigned At Not on file C [facility] Start: 08-06-2020 End: 06-25-2022 Tobacco smoking status NHIS Smokes tobacco daily [facility] History of tobacco use Cigarette Smoker C [facility] Start: 08-06-2020 End: 06-23-2023 Cigarettes smoked current (pack per day) - Reported 0.5 [facility] Start: 08-06-2020 End: 06-25-2022 Tobacco use and exposure Smokeless tobacco non-user [facility] Start: 06-11-2021 End: 06-23-2023 Alcohol intake Ex-drinker (finding) [facility] Start: 12-07-2021 End: 12-17-2021 Exposure to SARS-CoV-2 (event) Not sure [facility] [place] Start: 12-10-2020 End: 06-23-2023 Sex Assigned At [facility] History of tobacco use Passive smoker [facility] Start: 05-03-2023 End: 12-05-2023 Tobacco smoking status Heavy tobacco smoker (finding) [facility] Tobacco smoking status Never [facility] Functional Status Date Assessment Result Facility 01-02-2024 Functional Status N/A [facility] 12-05-2023 Functional Status N/A [facility] 11-28-2023 Functional Status N/A [facility] 11-21-2023 Functional Status N/A [facility] 11-14-2023 Functional Status N/A [facility] 05-03-2023 Functional Status N/A [facility] Clinical Notes 12-17-2021 to 01-02-2024 Patient [...] your health care provider. General instructions Take jqsc-aia-ssmhwst and prescription medicines only as told by [...] provider. Document Revised: 01/26/2021 Document Reviewed: 01/26/2021 [employer] Patient Education 2022 [employer]isk (formerly [employer]). Follow Up Care 10/31/2023 12:01:52 With:JUANITO BREWER, NGA Freedman, URL Address: [address] [place] [address] When:3 months [facility] [place] 01-02-2024 Note Patient Education Obstetrics and Gynecology [...] health care provider. General instructions ? Take vjsa-gfh-gujxhfs and prescription medicines only as told by [...] your health care (more content not included)... [facility] 12-05-2023 Hospital Discharge instructions Patient Education 12/05/2023 [...] provider. Document Revised: 09/17/2021 Document Reviewed: 09/17/2021 [employer] Patient Education 2022 [employer] (formerly [employer]). Follow Up Care 11/14/2023 12:46:23 With:JUANITO BREWER, NGA Freedman, URL Address: [address] [place] [address] When:Within 2 Week(s) [facility] [place] 12-05-2023 Note Patient Education [...] provider. Document Revised: 09/17/2021 Document Reviewed: 09/17/2021 ElseSpot[employer] Patient Education ? 2022 [employer] (formerly [employer]). [facility] 11-28-2023 Hospital Discharge instructions Patient Education [...] provider. Document Revised: 09/17/2021 Document Reviewed: 09/17/2021 [employer] Patient Education 2022 [employer] (formerly [employer]). Follow Up Care 09/14/2023 15:08:51 With:JUANITO BREWER, NGA Freedman, URL Address: [address] [place] [address] When: Unknown [facility] [place] 11-28-2023 Note Patient Education [...] provider. Document Revised: 09/17/2021 Document Reviewed: 09/17/2021 [employer] Patient Education ? 2022 [employer]isk (formerly [employer]). [facility] 11-21-2023 Hospital Discharge instructions Patient Education [...] your health care provider. General instructions Take bvjx-rkm-qjmrqil and prescription medicines only as told by [...] provider. Document Revised: 01/26/2021 Document Reviewed: 01/26/2021 [employer] Patient Education 2022 [employer] (formerly [employer]). Follow Up Care 09/14/2023 15:07:45 With:JUANITO BREWER, NGA Freedman, URL Address: [address] [place] [address] When:Within 1 Week(s) [facility] [place] 11-21-2023 Note Patient Education [...] health care provider. General instructions ? Take gyjs-pdr-amtsuqs and prescription medicines only as told by [...] your health care (more content not included)... [facility] 11-14-2023 Hospital Discharge instructions Patient Education [...] your health care provider. General instructions Take ufgb-rnr-vugfdyk and prescription medicines only as told by [...] provider. Document Revised: 01/26/2021 Document Reviewed: 01/26/2021 [employer] Patient Education 2022 [employer] (formerly [employer]). Follow Up Care 09/14/2023 15:06:58 With:JUANITO BREWER, NGA Freedman, URL Address: [address] [address] When:Within 1 Week(s) [facility] [place] 08-02-2023 Note [facility] [...] Prior to Visit Medication Sig Dispense Refill zmclxdpwyx-ozyeuihs-sooirokfgp (Breztri Aerosphere) 160-9-4.8 mcg/actuation HFA aerosol inhaler [...] to time, prasanna (more content not included)... [facility] 06-23-2023 Note HNO ID: [id number] Author: ANDRE FUNES MD Service: ? Author Type: Physician Type: Progress Notes Filed: 06/26/2023 13:35 Note Text: NAME: Renetta Barbosa CLINIC NO.: [id number] DATE OF SERVICE: June 23, 2023 (Chichi) [...] HCC screening PLAN: Need US results from [facility] from last week. Recommend alternating follow [...] 1 year. Updated Visit, June 25, 2022: Reentta returns today in follow up. US in [facility] with enlarged nodular liver no masses. [...] studies have been drawn at [facility]. She states that (more content not included)... [facility] 06-23-2023 Instructions Chely Duarte - 06/23/2023 2:19 PM EST Need US results from [facility] from last week. Recommend alternating follow [...] prior to return documented in this encounter [facility] 06-23-2023 History of Present illness Narrative Images from the original note were not included. NAME: Renetta Barbosa CLINIC NO.: [id number] DATE OF SERVICE: June 23, 2023 ([facility]) Some elements in this clinic note that are critical to medical decision making have been carefully reviewed and included from a prior clinic note dated: June 25, 2022 (paulain) Referring Provider: Shakira Higgins CNP Additional Clinicians [...] HCC screening PLAN: Need US results from [facility] from last week. Recommend alternating follow [...] returns today in follow up. US in [facility] with enlarged nodular liver no masses. [...] studies have been drawn at [facility]. She states that she has bleeding [...] work-up with CT scans and ultrasounds from [facility]. I was also able to review [...] (FLONASE) 50 mcg/actuation nasal spray Use 1 [place] in each nostril as needed. furosemide (LASIX) [...] which included preparing to see the patient, cklt-la-zndo patient care, completing clinical documentation, performing a medically appropriate examination and ordering medications, tests, or procedures. Andre Funes MD, CPE Hematology and Oncology Services Provided at: [place], [place] Scribe Attestation: This note was scribed [...] my direction. CC: Shakira Higgins CNP [address] [address] documented in this encounter [facility] 06-21-2023 Note New patient here to establish [...] All other systems reviewed and are negative. [facility] 06-21-2023 Note [facility]rophys[facility] Consult Note [...] Diagnosis Date COPD (chronic obstructive pulmonary disease) ([facility]) Diabetes mellitus ([facility]) Hyperlipidemia Hypertension MENDEZ (nonalcoholic steatohepatitis) [...] Prior to Visit Medication Sig Dispense Refill azyqngyfye-wogqjoki-mibznwjlrc (Breztri Aerosphere) 160-9-4.8 mcg/actuation HFA aerosol inhaler [...] consciousness, no weakness, (more content not included)... [facility] 05-03-2023 Hospital Discharge instructions Patient Education [...] your health care provider. General instructions Take ypmg-lsm-pysyott and prescription medicines only as told by [...] provider. Document Revised: 01/26/2021 Document Reviewed: 01/26/2021 [employer] Patient Education 2022 Whisk (formerly [employer]ypsee). 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 [facility] Comment on above: Result Comment: Elec tronically Signed By: NGA WILKINS PA-C.br\Date and Time Signed: 05/03/23 11:37 EST 04-05-2023 Evaluation note Encounter Date Diagnosis Assessment Notes Mar, GERD (gastroesopha geal reflux disease) (ICD-10 - K21.9) Stop pantoprazole Rto 3 months Mar, Abdominal pain (ICD-10 - R10.9) Mar, Diarrhea (ICD-10 - R19.7) Mar, Nausea (ICD-10 - R11.0) [employer] Other 05-09-2023 Evaluation note* Encounter Date Diagnosis Assessment Notes Treatment Notes Treatment Clinical Notes September, Abdominal pain (ICD-10 - R10.9) September, Diarrhea (ICD-10 - R19.7) Patient states she goes back and fourth between diarrhea and constipation. September, GERD (gastroesophageal reflux disease) (ICD-10 - K21.9) [employer] Other 02-03-2023 Instructions* Patient Instructions* Andre Funes [...] Liver prior to return [facility] [place] History of Present illness Narrative* Andre Funes MD - 06/25/2022 2:01 PM EST Images from the original note were not included. NAME: Renetta Barbosa CLINIC NO.: [id number] DATE OF SERVICE: June 25, 2022 (Chichi) [...] returns today in follow up. US in [facility] with enlarged nodular liver no masses. [...] studies have been drawn at [facility]. She states that she has bleeding [...] work-up with CT scans and ultrasounds from [facility]. I was also able to review [...] (FLONASE) 50 mcg/actuation nasal spray Use 1 [place] in each nostril as needed. furosemide (LASIX) [...] which included preparing to see the patient, zlka-mb-ptjm patient care, completing clinical documentation, performing a medically appropriate examination and ordering medications, tests, or procedures. Andre Funes MD, CPE [place], [place] CC: Shakira Higgins, LOGISTICS ACCOUNT MANAGER [address] [place] [address] documented in this [facility] [place] Evaluation note* Encounter Date Diagnosis Assessment Notes Treatment Notes Treatment Clinical Notes May, Abdominal pain (ICD-10 - R10.9) Stop Atorvastatin & Metformin for 1 month RTO 1 month May, Diarrhea (ICD-10 - R19.7) May, GERD (gastroesophageal reflux disease) (ICD-10 - K21.9) [employer] Other 11-10-2022 Evaluation note* Encounter Date Diagnosis Assessment Notes Treatment Notes Treatment Clinical Notes Mar, Abdominal pain (ICD-10 - R10.9) [employer] Other 10-13-2022 Evaluation note* Encounter Date Diagnosis Assessment Notes Treatment Notes Treatment Clinical Notes Feb, GERD (gastroesophageal reflux disease) (ICD-10 - K21.9) CONTINUE PANTOPRAZOLE 40 MG DAILY Feb, Abdominal pain (ICD-10 - R10.9) RTO 6 WEEKS COPY OF LOW FODMAP DIET GIVEN TO PATIENT Feb, Diarrhea (ICD-10 - R19.7) START [employer] [facility]/[employer] Other 07-28-2022 History of Present illness Narrative* Andre Funes MD - 12/17/2021 2:15 PM EDT Images from the original note were not included. NAME: Renetta Barbosa CLINIC NO.: [id number] DATE OF SERVICE: December 17, 2021 Some [...] studies have been drawn at [facility]. She states that she has bleeding [...] work-up with CT scans and ultrasounds from [facility]. I was also able to review [...] petechiae. ALLERGIES: ALLERGIES No Known Allergies MEDICATIONS: Zokos JEANNE 2 SENSOR kit busPIRone (BUSPAR) 10 [...] (FLONASE) 50 mcg/actuation nasal spray Use 1 [place] in each nostril as needed. furosemide (LASIX) [...] which included preparing to see the patient, mdnk-vf-ibhs patient care, completing clinical documentation, performing a medically appropriate examination and ordering medications, tests, or procedures. Andre Funes MD, CPE [place], [place] CC: Shakira Higgins, LOGISTICS ACCOUNT MANAGER [address] [phone] documented in this encounterKing[facility] [place] + Plan note No data available for this section [facility] evaluation + Plan note Future Appointments Appointment Date:11/07/2023 11:20:00 AM Scheduled Provider:NGA WILKINS PA-C [facility] Type:URO Procedure 30 min Appointment Date:11/14/2023 11:20:00 AM Scheduled Provider:NGA WILKINS PA-C Location:[facility] JAMIE Jacobson Appointment Type:URO Procedure 30 min Appointment Date:11/30/2023 11:20:00 AM Scheduled Provider:NGA WILKINS PA-C Location:[facility] JAMIE Jacobson Appointment Type:URO Procedure 30 min Appointment Date:12/07/2023 11:20:00 AM Scheduled Provider:NGA WILKINS PA-C Location:[facility] JAMIE Jacobson Appointment Type:URO Procedure 30 min Appointment Date:12/28/2023 11:20:00 AM Scheduled Provider:NGA WILKINS PA-C Location:[facility] JAMIE Jacobson Appointment Type:URO Procedure 30 min Appointment Date:01/04/2024 11:20:00 AM Scheduled Provider:NGA WILKINS PA-C Location:[facility] [place] Appointment Type:URO Procedure 30 min [facility] Evaluation + Plan note Future Appointments Appointment Date:11/14/2023 11:20:00 AM Scheduled Provider:NGA WILKINS PA-C Location:[facility] Appointment Type:URO Procedure 30 min Appointment Date:11/21/2023 11:20:00 AM Scheduled Provider:NGA WILKINS PA-C Location:[facility] [place] Appointment Type:URO Procedure 30 min Appointment Date:11/28/2023 11:20:00 AM Scheduled Provider:NGA WILKINS PA-C Location:[facility] [place] Appointment Type:URO Procedure 30 min Appointment Date:12/19/2023 11:20:00 AM Scheduled Provider:NGA WILKINS PA-C Location:[facility] [place] Appointment Type:URO Procedure 30 min Appointment Date:01/02/2024 11:20:00 AM Scheduled Provider:NGA WILKINS PA-C Location:[facility] Appointment Type:URO Procedure 30 min [facility] evaluation + Plan note Future Appointments Appointment Date:11/21/2023 11:20:00 AM Scheduled Provider:NGA WILKINS PA-C Location:[facility] Appointment Type:URO Procedure 30 min Appointment Date:11/28/2023 11:20:00 AM Scheduled Provider:NGA WILKINS PA-C Location:[facility] [place] Appointment Type:URO Procedure 30 min Appointment Date:12/05/2023 11:20:00 AM Scheduled Provider:NGA WILKINS PA-C Location:[facility] [place] Appointment Type:URO Procedure 15 min Appointment Date:12/19/2023 11:20:00 AM Scheduled Provider:NGA WILKINS PA-C Location:[facility] [place] Appointment Type:URO Procedure 30 min Appointment Date:01/02/2024 11:20:00 AM Scheduled Provider:NGA WILKINS PA-C Location:[facility] [place] Appointment Type:URO Procedure 30 min [facility] Evaluation + Plan note Future Appointments Appointment Date:11/28/2023 11:20:00 AM Scheduled Provider:NGA WILKINS PA-C Location:[facility] Appointment Type:URO Procedure 30 min Appointment Date:12/05/2023 11:20:00 AM Scheduled Provider:NGA WILKINS PA-C Location:[facility] [place] Appointment Type:URO Procedure 15 min Appointment Date:12/19/2023 11:20:00 AM Scheduled Provider:NGA WILKINS PA-C Location:[facility] Appointment Type:URO Procedure 30 min Appointment Date:01/02/2024 11:20:00 AM Scheduled Provider:NGA WILKINS PA-C Location:[facility] Appointment Type:URO Procedure 30 min [facility] evaluation + Plan note Future Appointments Appointment Date:12/05/2023 11:20:00 AM Scheduled Provider:NGA WILKINS PA-C Location:[facility] Appointment Type:URO Procedure 15 min Appointment Date:12/19/2023 11:20:00 AM Scheduled Provider:NGA WILKINS PA-C Location:[facility] Appointment Type:URO Procedure 30 min Appointment Date:01/02/2024 11:20:00 AM Scheduled Provider:NGA WILKINS PA-C Location:[facility] Appointment Type:URO Procedure 30 min [facility] Evaluation + Plan note Future Appointments Appointment Date:12/19/2023 11:20:00 AM Scheduled Provider:NGA WILKINS PA-C Location:[facility] Appointment Type:URO Procedure 30 min Appointment Date:01/02/2024 11:20:00 AM Scheduled Provider:NGA WILKINS PA-C [facility] Type:URO Procedure 30 min [facility] Evaluation + Plan note Future Appointments Appointment Date:02/29/2024 08:20:00 AM Scheduled Provider:NGA WILKINS PA-C Location:[facility] [place] Appointment Type:URO Office Visit [facility] Evaluation note* Diagnosis 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) Cirrhosis of liver without mention of alcohol MENDEZ (nonalcoholic steatohepatitis) Other chronic nonalcoholic liver disease [facility] Diagnosis 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)- Primary Cirrhosis of liver without mention of alcohol MENDEZ (nonalcoholic steatohepatitis) Other chronic nonalcoholic liver disease 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 thrombocytopenia documented in this encounter [facility] noteNo [facility] [employer] Other Evaluation note* Diagnosis MENDEZ (nonalcoholic steatohepatitis)- Primary Other chronic nonalcoholic liver disease 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) Cirrhosis of liver without mention of alcohol 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 thrombocytopenia Thrombocytopenia (HCC) Thrombocytopenia, unspecified Diabetic gastroparesis (HCC) (HCC) Type II or unspecified type diabetes mellitus with neurological manifestations, not stated as uncontrolled documented in this encounter [facility] general Narrative - Reported* Type Description Date Surgical History tonsillectomy and adenoidectomy Surgical History C section Surgical History tubal ligation Surgical History cholecystectomy Hospitalization History SEE ABOVE [place] [employer] Other Hospital Discharge instructions No data available for this section [facility] Progress note No data available for this section [facility] reason for referral (narrative)* Diagnostic Procedure Only (Routine) - Pending Review Specialty Diagnoses / Procedures Referred By Contac t Referred To Contact US IMAGING Diagnoses 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) MENDEZ (nonalcoholic steatohepatitis) Procedures US ABD RT UPPER QUADRANT US ABDOMINAL REAL TIME W/IMAGE LIMITED Andre Funes MD [address] [place] [address] [place] [address] Us Imaging Referral ID Status Reason Start Date Expiration Date Visits Requested Visits Authorized [id number] Pending Review Auto-Generat ed Referral 06/19/2022 01/16/2023 1 1 [facility] for referral (narrative)* Diagnostic Procedure Only (Routine) - Pending Review Specialty Diagnoses / Procedures Referred By Contac t Referred To Contact US IMAGING Diagnoses 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 Procedures US DOPPLER COMPLETE DUP-SCAN ARTL PATRICK ABDL/PEL/SCROT&/RPR ORGN COM Andre Funes MD [address] [place] [address] [place] [address] Us Imaging Referral ID Status Reason Start Date Expiration Date Visits Requested Visits Authorized [id number] Pending Review Auto-Generat ed Referral 06/25/2023 07/25/2023 [...] ABDL/PEL/SCROT&/RPR ORGN COM Andre Funes MD [address] [place] [address] [place] [address] Us Imaging Referral ID Status Reason Start Date Expiration Date Visits Requested Visits Authorized [id number] Pending Review Auto-Generat ed Referral 06/25/2023 07/25/2023 1 1 [facility] for referral (narrative)* Diagnostic Procedure Only (Routine) - Pending Review Specialty Diagnoses / Procedures Referred By Contac t Referred To Contact US IMAGING Diagnoses MENDEZ (nonalcoholic steatohepatitis) 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 Procedures US ABD RIGHT UPPER QUADRANT US ABDOMINAL REAL TIME W/IMAGE LIMITED Andre Funes MD [address] [place] [address] [place] [address] [place] [address] Referral ID Status Reason Start Date Expiration Date Visits Requested Visits Authorized [id number] Pending Review Auto-Generat ed Referral 06/23/2023 07/22/2024 1 1 [facility] for visit NarrativePT HERE AT REQ OF SHAKIRA HIGGINS FOR GERD, (REFERRAL NOTE RECEIVED)[employer] Other Summary Purpose Family History No Family [...] CREATED AUTHOR AUTHOR'S ORGANIZ ATION 06/03/2021 [facility] DATE CREATED AUTHOR AUTHOR'S ORGANIZ ATION 03/01/2022 [facility] DATE CREATED AUTHOR AUTHOR'S ORGANIZ ATION 10/29/2022 [facility] DATE CREATED AUTHOR AUTHOR'S ORGANIZ ATION 06/26/2023 [facility] DATE CREATED AUTHOR AUTHOR'S ORGANIZ ATION 08/03/2023 [facility] [place] DATE CREATED AUTHOR AUTHOR'S ORGANIZ ATION 01/03/2024 [facility] DATE CREATED AUTHOR AUTHOR'S ORGANIZ ATION 02/17/2024 [facility] [employer] Comments (unrecognize d section and content) In the event this informatio n is protected by the Federal Confidentiality of Alcohol and Drug Abuse Patient Records regulations: The Federal rules restrict any use of the information to criminally investigate or prosecute any alcohol or drug abuse patient.[facility] [place] the event this information is protected by the Federal Confidentiality of Alcohol and Drug Abuse Patient Records regulations: The Federal rules restrict any use of the information to criminally investigate or prosecute any alcohol or drug abuse patient.[facility] [place] the event this information is protected by the Federal Confidentiality of Alcohol and Drug Abuse Patient Records regulations: The Federal rules restrict any use of the information to criminally investigate or prosecute any alcohol or drug abuse patient.[facility] [place] the event this information is protected by the Federal Confidentiality of Alcohol and Drug Abuse Patient Records regulations: The Federal rules restrict any use of the information to criminally investigate or prosecute any alcohol or drug abuse patient.[facility] [place] Reason for Visit (unrecogniz ed section and content) Reason Comments Thrombocytopenia Reason Comments Thrombocytopenia 6 month follow up Care Teams (unrecognized sec tion and content) Loan Representative Relationship Specialty Start Date End Date Shakira Higgins CNP [address] [place] [address] PCP - General Internal Medicine 08/01/20 Loan Representative Relationship Specialty Start Date End Date Shakira Higgins CNP [address] [place] [address] PCP - General Internal Medicine 08/01/20 FOR [...] BE BASED ON THE PRIMARY CLINICAL RECORDS. [employer] provides no warranty or guarantee of the accuracy or completeness of information in this document.
[2024-02-25 11:49] LABS: Hematocrit 40.8 % (36.0-48.0); Hemoglobin 12.6 g/dL (12.0-16.0); Mean Corpuscular HGB Conc 30.9 g/dL (29.9-35.2); Mean Corpuscular Hemoglobin 25.7 pg (26.7-34.0); Mean Corpuscular Volume 83.3 fL (81.0-99.0); Mean Platelet Volume 11.1 fL (9.5-13.5); Platelet Count 126 10^3/uL (150-450); Red Cell Distribution Width 16.8 % (11.0-15.0); White Blood Count 6.1 10^3/uL (4.0-11.0)
[2024-02-25 12:22] VITALS: TEMP 36.5
[2024-02-25 12:23] LABS: Segmented Neut Absolute Manual 5.24 10^3/uL (1.4-6.5)
[2024-02-25 12:24] LABS: Anion Gap 16.9; BUN Creatinine Ratio 13.6; Band Neutrophils Absolute 0.2 10^3/uL (0.0-0.3); Calcium 8.9 mg/dL (8.5-10.1); Carbon Dioxide 25.4 mmol/L (21.0-32.0); Chloride 104 mmol/L (98-107); Creatine Kinase 95 U/L (26-192); Estimated GFR (African America >60 (>=60 mL/min/1.73m^2); Estimated GFR (Non-African Ame >60 (>=60 mL/min/1.73m^2); Ethanol 4 mg/dL; Glucose 58 mg/dL (74-106); Lymphocytes Absolute Manual 0.61 10^3/uL (1.20-3.80); Potassium 3.3 mmol/L (3.5-5.1); Sodium 143 mmol/L (136-145); Troponin I High Sensitivity 7.7 pg/mL (4.0-51.3)
[2024-02-25 12:27] LABS: Myoglobin 280 ng/mL (9-82)
[2024-02-25 12:32] LABS: Thyroid Stimulating Hormone 0.058 uIU/mL (0.358-3.740)
[2024-02-25 13:20] LABS: Glucometer 83 mg/dL (74-106)
[2024-02-25 13:32] LABS: Bilirubin Urine NEGATIVE (NEGATIVE); Blood Urine NEGATIVE (NEGATIVE); Clarity Urine CLEAR (CLEAR); Color Urine YELLOW (YELLOW); Glucose Urine UA >=1000 mg/dL (NEGATIVE); Ketones Urine NEGATIVE (NEGATIVE); Leukocyte Esterase Urine NEGATIVE (NEGATIVE); Nitrite Urine NEGATIVE (NEGATIVE); Protein Urine NEGATIVE (NEG/TRACE)
[2024-02-25 13:42] VITALS: TEMP 36.8
[2024-02-25 13:49] LABS: Bacteria Urine TRACE #/HPF (NONE SEEN); Cast Seen? NONE SEEN #/LPF (NONE SEEN); Crystals Seen? None Seen #/HPF (None Seen); Mucus Urine SMALL (NONE SEEN); RBC Urine NONE SEEN #/HPF (0-2); Squamous Epithelial Cell Urine FEW #/LPF (NONE/RARE); Urine Culture Indicated NO; WBC Urine NONE SEEN #/HPF (NONE SEEN)
[2024-02-25 13:53] VITALS: BP 164/82; PULSE 84; O2SAT 98
[2024-02-27 13:08] LABS: Triiodothyronine (T3) 96 ng/dL (71-180)
== END 2024-02-25 14:24 | disposition left against medical advice (07) ==
PROVIDERS: Emergency Provider Emergency Medicine; PCP Nurse Practitioner Family
DX: E16.2 Hypoglycemia, unspecified (principal); M62.82 Rhabdomyolysis; R68.0 Hypothermia, not associated with low environmental temperature; Z53.29 Procedure and treatment not carried out because of patient's decision for other reasons
CPT/HCPCS: 36415; 71045; 80048; 80320; 81001; 82550; 83874; 84436; 84443; 84480; 84484; 85007; 85027; 93005; 99285

== ENCOUNTER 2024-02-29 13:19 | Outpatient (OUT) | payer OTHER, SELFPAY ==
--- NOTE | 2024-02-29 | XR_ITS ---
The [address] [address] Patient Name: ALBINO BARBOSA MRN: [id number] date: 1960 Sex: F Assigned Patient Location: [facility] Current Patient Location: Accession/Order Number: [id number] Exam Date: 02/29/2024 13:21 Report Date: 03/01/2024 08:22 At the request of: ANTHONY RASHEED Procedure: XR foot LT min 3V PROCEDURE: XR foot LT min 3V HISTORY: LEFT FOOT PAIN COMPARISON: XR foot left 01/31/2024 FINDINGS: BONES:Increasing sclerosis and callus formation along margins of the distal fourth metatarsal and mid 5th metatarsal. Stable alignment. Mild degenerative changes the midfoot. Degenerative enthesopathic spurring of the calcaneus. SOFT TISSUES:No visible soft tissue swelling. EFFUSION:None visible. OTHER: Negative. XR/XR foot LT min 3V IMPRESSION: 1. Stable alignment and ongoing bone healing of the nondisplaced fracture of the fourth metatarsal neck. 2. Stable alignment and ongoing bone healing of comminuted 5th metatarsal fracture. Electronically authenticated by: LEONEL MATA Date: 03/01/2024 08:22
== END 2024-02-29 13:20 | disposition home or self-care (01) ==
LOC: RAD 13:19
PROVIDERS: PCP Nurse Practitioner Family; Visit Provider Podiatrist Foot & Ankle Surgery
DX: M79.672 Pain in left foot (principal); S92.345D Nondisplaced fracture of fourth metatarsal bone, left foot, subsequent encounter for fracture with routine healing; S92.355D Nondisplaced fracture of fifth metatarsal bone, left foot, subsequent encounter for fracture with routine healing
CPT/HCPCS: 73630

== ENCOUNTER 2024-04-26 10:28 | Outpatient (OUT) | payer OTHER, SELFPAY ==
--- NOTE | 2024-04-26 | US_ITS ---
[address] [address] Patient Name: ALBINO BARBOSA MRN: [id number] date: 1960 Sex: F Assigned Patient Location: US Current Patient Location: US Accession/Order Number: [id number] Exam Date: 04/26/2024 10:43 Report Date: 04/26/2024 14:22 At the request of: YOLY FUNES Procedure: US abdomen limited EXAMINATION: US abdomen limited HISTORY: 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 FINDINGS: The spleen is normal in size, contour and echotexture measuring 13.4 x 9.6 x 6.5 cm. No focal splenic mass is observed. No ascites US/US abdomen limited IMPRESSION: Normal spleen Electronically authenticated by: KAILEE AGUSTIN Date: 04/26/2024 14:22
--- NOTE | 2024-04-26 10:30 | US_ITS ---
The [place] [id number] Patient Name: ALBINO BARBOSA MRN: [id number] date: 1960 Sex: F Assigned Patient Location: US Current Patient Location: US Accession/Order Number: [id number] Exam Date: 04/26/2024 10:31 Report Date: 04/26/2024 14:22 At the request of: YOLY FUNES Procedure: US right upper quadrant EXAM: US right upper quadrant HISTORY: Nonalcholic Steatohepatitis, Cirrhosis Of Liver COMPARISON: None. TECHNIQUE: Grayscale, color and Doppler FINDINGS: The liver is prominent in size measuring 19.4 cm in length. Mildly nodular liver contour. No focal hepatic mass. Diffuse increase in hepatic echotexture. Hepatopedal flow in the main portal vein with a velocity of 24 cm/s. The gallbladder is surgically absent. The visualized pancreas is normal The right kidney is normal measuring 10.9 x 5.5 x 4.7 cm US/US right upper quadrant IMPRESSION: Stable nodular echogenic liver Electronically authenticated by: KAILEE AGUSTIN Date: 04/26/2024 14:22
--- OUTSIDE RECORDS SUMMARY | 2024-04-26 10:44 | XMS_ITS | CCD ---
Author Organization [facility] Care Team Providers Care Folder Stitcher Operator Name Role Phone Shakira Higgins Primary Care [...] Unavailable HAY ., DR RODRIGUEZ Admitting Unavailable SHAKIRA HIGGINS S Primary Care Physician Soheila Delgado Unavailable CHAVA QUIROZ Attending Unavailable MAHAMED VILLELA Attending Unavailable Benjamin Del Toro MD Primary Care Provider [phone] jT Dutton MD Unavailable [phone] TJ DUTTON Attending Unavailable NATO, TJ Kothari Attending Unavailable DIDION, JASMINE Peres Attending Unavailable JEFFRAJAT Attending Unavailable DIDION, JASMINE Peres Attending Unavailable DIDION, JASMINE Peres Attending Unavailable TAN BAGLEY Attending Unavailable JEFFRAJAT Attending Unavailable DIDION, JASMINE Peres Attending Unavailable DIDION, JASMINE Peres Attending Unavailable JEFFRAJAT Attending Unavailable DIDION, JASMINE Peres Attending Unavailable MARY MARQUES Attending Unavailable DIDION, JASMINE Peres Attending Unavailable KUSHAL, AHMAD F Attending Unavailable KUSHAL, AHMAD F Referring Unavailable DIDION, JASMINE C Attending Unavailable JUANITO, NGA E Attending Unavailable JUANITO, NGA E Attending Unavailable JUANITO, NGA E Attending Unavailable JUANITO, NGA E Attending Unavailable JUANITO, NGA E Attending Unavailable JUANITO, NGA E Attending Unavailable JUANITO, NGA E Attending Unavailable JUANITO, NGA E Attending Unavailable RONADLO, SHAKIRA S Referring Unavailable JUANITO, NGA E Attending Unavailable JUANITO, NGA E Attending Unavailable Ronaldo Altagracia MOOREela S Primary Care Provider ABHYANKAR, ANDRE Referring Unavailable RONALDO, SHAKIRA S Primary Care Unavailable ABHYANKAR, ANDRE Referring Unavailable ABHYANKAR, ANDRE Attending Unavailable RONALDO, SHAKIRA S Primary Care Unavailable Allergies Allergy Classification Reported Allergen(s) Allergy Type Date of Onset Reaction(s) Facility Capsaicin / Turpentine (1 source) Capsaicin / Turpentine; Translations: [capsaicin topical] Drug Allergy [facility] (4 sources) Capsaicin; Translations: [CAPSAICIN] Drug Allergy 4 [facility] Repository (5 sources) Capsaicin Drug Allergy Unknown [facility] Other (9 sources) Capsaicin / Turpentine; Translations: [capsaicin topical] Drug Allergy [facility] (1 source) traZODone; Translations: [TRAZODONE] Drug Allergy 4 [facility] Repository (6 sources) Capsaicin Drug Allergy 4 [facility] (6 sources) traMADol Drug Allergy 4 [facility] (1 source) No Known Medication Allergies; Translations: [No Known Medication Allergies] Propensity to adverse reactions (disorder) [facility] Repository Medications Current Medications Medication Drug Class(es) Dates Sig (Normalized) Sig (Original) 0.4 ML cyclosporine 0.5 MG/ML Ophthalmic Suspension [Restasis] (10 sources) Start: 03-13-2020 take 1 drop(s) into the eye(s) twice daily Restasis 0.05% Emulsion 1 drop(s), Eye-Both, BID, Refill(s) 0 Start Date: 03/13/20 Status: Ordered [id number] 200 actuat albuterol 0.09 mg/actuat metered dose inhaler (11 sources) beta2-Adrenergic Agonist albuterol HFA 90 mcg/actuation HFA Inhale 2 Puffs as instructed as needed. Active albuterol (ProAi r RespiClick) 90 mcg/act breath-activated inhaler every 4 (four) hours Active take 1 puff(s) by in halation every four hours as needed Albuterol Sulfate HFA 108 (90 Base) MCG/ ACT 1 puff as needed Inhalation every 4 hrs Active Comment on above: Inhale 2 Puffs as in structed as needed. armodafinil 250 mg oral tablet (10 sources) Start: 03-13-20 20 take 1 tablet by mouth once daily armodafinil 250 mg oral tablet 250 mg = 1 tab(s), Oral, Daily, Refills(s) 0 Start Date: 03/13/20 Status: Ordered atorvastatin 40 mg oral tablet (20 sources) HMG-CoA Reductase Inhibitor Start: 03-13-20 take 1 tablet by mouth at bedtime atorvastatin 40 mg Tab 40 mg = 1 tab(s), Oral, Bedtime, Refills(s) 0 Start Date: 03/13/20 Status: Ordered Comment on above: Take 40 mg by mouth once daily. bisacodyl 5 mg delayed release oral tablet (14 sources) Stimulant Laxative Start: 03-18-20 bisacodyl EC (DULCOLAX) 5 mg EC tablet Take 20 mg by mouth. 03/18/2020 Active Comment on above: Take 20 mg by mouth. Breztri Aerosphere inhalation aerosol (10 sources) Start: 05-03-20 take 2 puff(s) by inhalation twice daily Breztri Aerosphere inhalation aerosol 2 puff(s), BID Start Date: 05/03/23 Status: Ordered 120 actuat budesonide 0.16 mg/actuat / formoterol fumarate 0.0048 mg/actuat / glycopyrrolate 0.009 mg/actuat metered dose inhaler (8 sources) Corticosteroid, beta2-Adrenergic Agonist Start: 05-17-20 take 2 puff(s) by inhalation twice daily BREZTRI AEROSPHERE 160-9-4.8 mcg/actuation HFA aerosol inhaler INHALE 2 PUFFS TWICE A DAY DIRECTED 30 05/17/2023 Active Comment on above: INHALE 2 PUFFS TWICE A DAY DIRECTED 30 24 hr buPROPion hydrochloride 300 mg extended release oral tablet (14 sources) Aminoketone Start: 03-13-20 take 1 tablet by mouth once daily buPROPion 300 mg XL /24 hrs 300 mg = 1 tab(s), Oral, Daily, Refills(s) 0 Start Date: 03/13/20 Status: Ordered Comment on above: Take 300 mg by mouth once daily. busPIRone hydrochloride 15 mg oral tablet (15 sources) Start: 10-24-19 take 1 tablet by mouth every twelve hours as needed busPIRone (BUSPAR) 15 mg tablet Take 15 mg by mouth twice daily as needed. 10/23/2021 Active Start: 05-26-2021 End: 12-17-2021 busPIRone (BUSPAR) 10 mg tab let Comment on above: Take 15 mg by mouth twice daily as needed. Calcium (14 sources) Phosphate Binder, Calcium Start: 03-13-2020 calcium 500 mg tablet 500 mg = 1 tab(s), Chewed, Daily, Refills(s) 0 Start Date: 03/13/20 Status: Ordered CALCIUM ORAL Yamil e by mouth once daily. Active CALCIUM ORAL Yamil e by mouth once daily. 0 Active Comment on above: Take by mouth once d aily. calcium carbonate 500 mg oral tablet (6 sources) calcium carbonat e (Os-Tanner) 1250 (500 Ca) MG tablet Take by mouth Daily Active cephalexin 500 mg oral capsule (4 sources) Cephalosporin Antibacterial Start: 12-09-2020 cephALEXin (KEFLEX) 500 mg capsule 12/09/2020 Active cevimeline 30 mg oral capsule (20 sources) Cholinergic Receptor Agonist Start: 05-03-2023 cevimeline (Evoxac) 30 MG capsule 30 mg 05/03/2023 Active cholecalciferol (Vitamin D3) 200 Unit tablet split tablet (6 sources) cholecalciferol (Vitamin D3) 200 Unit tablet split tablet Take by mouth Daily Active cholecalciferol, vitamin D3, (VITAMIN D3 ORAL) (4 sources) cholecalciferol, vitamin D3, (VITAMIN D3 ORAL) Take by mouth once daily. Active cholecalciferol, vitamin D3, (VITAMIN D3 ORAL) Take by mouth once daily. 0 Active Comment on above: Take by mouth once d aily. ciclopirox (4 sources) CICLOPIROX TOPIC AL Apply to affected area. Active CICLOPIROX TOPIC AL Apply to affected area. 0 Active Comment on above: Apply to affected ar ea. clotrimazole 10 mg/ml topical cream (10 sources) Azole Antifungal Start: 05-20-2022 clotrimazole (Lotrimin) 1 % cream 1 application every 12 (twelve) hours 05/20/2022 Active Clotrimazole 1 % 1 application Externally Twice a day Active Clotrimazole 1 % 1 application Externally Twice a day Active Clotrimazole 1 % 1 application Externally Twice a day Active Continuous Blood Gluc Sensor (FreeStyle Jeanne 2 Sensor) misc (6 sources) Start: 05-14-2023 Continuous Blo od Gluc Sensor (FreeStyle Jeanne 2 Sensor) [facility] DIRECTED 05/14/2023 Active cyanocobalamin, vitamin B-12, (VITAMIN B12 ORAL) (4 sources) take 1000 ug by mouth once daily cyanocobalamin, vitamin B-12, (VITAMIN B12 ORAL) Take 1,000 mcg by mouth once daily. Active take 1000 ug by mouth once daily cyanocobalamin, vitamin B-12, (VITAMIN B12 ORAL) Take 1,000 mcg by mouth once daily. 0 Active Comment on above: Take 1,000 mcg by mo ut once daily. cycloSPORINE 0.5 mg/ml ophthalmic suspension (17 sources) Calcineurin Inhibitor Immunosuppressant take 0.05 drop(s) into the eye(s) twice daily cycloSPORINE (RESTASIS MULTIDOSE) 0.05 % drop Use 1 Drop in both eyes twice daily. Active cycloSPORINE (Re stasis) 0.05 % ophthalmic emulsion every 12 (twelve) hours Active take 1 drop(s) into the eye(s) twice [...] capsule (3 sources) Proton Pump Inhibitor Start: 023 take 1 capsule by mouth every twenty-four hours Dexilant 60 MG 1 capsule Orally Once a day for 30 days PLEASE CHECK ALLERGIES Mar, Active dicyclomine hydrochloride 10 mg oral capsule (20 sources) Anticholinergic Start: 022 take 1 capsule by mouth four times daily dicyclomine (BENTYL) 10 mg capsule Take 10 mg by mouth four times daily. 04/20/2023 Active Comment on above: Take 10 mg by mouth four times daily. doxepin hydrochloride 10 mg oral capsule (6 sources) Tricyclic Antidepressant Start: 024 take 1 capsule by mouth once daily at bedtime doxepin (SINEquan) 10 MG capsule Indications: Primary insomnia TAKE 1-2 CAPSULES BY MOUTH EVERYDAY AT BEDTIME 180 capsule 1 03/08/2024 Active Start: 02-14-2024 take 1 capsule by [facility] once at bedtime doxepin (SINEquan) 10 MG capsule Indications: Primary insomnia 1-2 po q hs 60 capsule 2 02/14/2024 Active 0.5 ml dulaglutide 3 mg/ml auto-injector (20 sources) GLP-1 Receptor Agonist Start: 03-13-2020 TRULICITY 1.5 mg/0.5 mL pen injector INJECT SUBCUTANEOUSLY ONCE A WEEK 05/11/2020 Active Trulicity 3 MG/0 .5ML as directed Subcutaneous Active Comment on above: INJECT SUBCUTANEOUSL Y ONCE A WEEK Dulaglutide (Trulicity) 3 MG/0.5ML solution auto-injector (4 sources) Start: 2023 inject 3 mg by subcutaneous injection every week Dulaglutide (Trulicity) 3 MG/0.5ML solution auto-injector Indications: Type 2 diabetes mellitus with hyperglycemia (CMS/HCC) INJECT 3 MG SUBCUTANEOUSLY WEEKLY 6 mL 1 03/02/2024 Active dulaglutide (Trulicity) 3 MG/0.5ML solution pen-injector (6 sources) Start: 2023 End: 2023 inject 3 mg by subcutaneous injection every week dulaglutide (Trulicity) 3 MG/0.5ML solution pen-injector Indications: Type 2 diabetes mellitus with hyperglycemia (CMS/HCC) Inject 3 mg under the skin 1 (one) time per week 6 mL 02/15/2024 05/09/2024 Active empagliflozin 10 mg oral tablet (14 sources) Sodium-Glucose Cotransporter 2 Inhibitor Start: 2023 take 1 mg by mouth once daily in the morning Jardiance 10 mg oral tablet mg tab(s), Oral, qAM, Refills(s) 0 Start Date: 02/29/24 Status: Ordered Start: 07-27-2023 take 25 mg by mouth in the morning Jardiance 25 MG Take 25 mg by mouth in the morning. 07/27/2023 Active estradiol 0.01 mg vaginal insert (20 sources) Estrogen Start: 05-24-2023 estradiol (Vag ifem) 10 MCG tablet vaginal tablet Indications: Postmenopausal atrophic vaginitis 1 tablet Vaginal Two times a Week for 90 days 8 tablet 11 05/24/2023 Active Start: 03-13-2020 estradiol 10 m cg vaginal insert See Instructions, Use one twice per week, Refills(s) 0 Start Date: 03/13/20 Status: Ordered Estradiol (VAGIF EM) 10 mcg vaginal tablet Use 10 mcg vaginally two times a week. Active Comment on above: Use 10 mcg vaginally two times a week. ferrous sulfate 325 mg oral tablet (4 sources) Start: 05-27-19 take 1 tablet by mouth twice daily ferrous sulfate 325 mg (65 mg iron) tablet Take 1 tablet by mouth twice daily. 05/27/2020 Active Comment on above: Take 1 tablet by jono twice daily. fluconazole 150 mg oral tablet (4 sources) Azole Antifungal Start: 07-10-19 fluconazole (DIFLUCAN) 150 mg tablet TAKE 1 TABLET EVERY 72 HOURS UNTIL SYMPTOMS IMPROVE (MAX 2WK) THEN 1 TABLET ONCE WEEKLY FOR 12 WEEKS 07/10/2020 Active Comment on above: TAKE 1 TABLET EVERY 72 HOURS UNTIL SYMPTOMS IMPROVE (MAX 2WK) THEN 1 TABLET ONCE WEEKLY FOR 12 WEEKS fluticasone propionate 0.05 mg/actuat metered dose nasal spray (4 sources) Corticosteroid fluticasone (FLONASE) 50 mcg/actuation nasal spray Use 1 [place] in each nostril as needed. Active Comment on above: Use 1 [place] in each nostril as needed. 30 actuat fluticasone furoate 0.1 mg/actuat / umeclidinium 0.0625 mg/actuat / vilanterol 0.025 mg/actuat dry powder inhaler (2 sources) Anticholinergic, Corticosteroid, beta2-Adrenergic Agonist take 1 puff(s) by inhalation once daily Trelegy Ellipta 100-62.5-25 MCG/ACT 1 puff Inhalation Once a day Active FREESTYLE JEANNE 2 SENSOR kit (4 sources) Start: 06-03-19 FREESTYLE JEANNE 2 SENSOR kit 06/03/2021 Active Start: 06-03-2021 FREESTYLE LIBR E 2 SENSOR kit furosemide 40 mg oral tablet (18 sources) Loop Diuretic Start: 03-13-2020 take 1 tablet by mouth once daily furosemide (LASIX) 40 mg tablet Take 40 mg by mouth once daily. 06/04/2020 Active Comment on above: Take 40 mg by mouth once daily. gabapentin 300 mg oral capsule (20 sources) Anti-epileptic Agent Start: 03-13-2020 gabapentin (Neurontin) 300 MG capsule Indications: Cramp and spasm TAKE 1 CAPSULE BY MOUTH ONCE A DAY AT BEDTIME *DNF 4/5* 30 capsule 3 01/11/2024 Active Comment on above: Take 300 mg by mouth daily at bedtime. 0.2 ml glucagon 5 mg/ml auto-injector (6 sources) Antihypoglycemic Agent inject 1 mg by subcutaneous injection once glucagon (Gvoke HypoPen 2-Pack) 1 MG/0.2ML injection Inject 1 mg under the skin 1 (one) time if needed Active hydrocortisone 25 mg/ml topical cream (14 sources) Corticosteroid Start: 06-03-2020 hydrocortisone (ANUSOL-HC) 2.5 % rectal cream APPLY RECTALLY TWICE DAILY FOR 10 DAYS 06/03/2020 Active Start: 03-13-2020 take 25 mg rectal ro [place] twice daily Anusol-HC 25 mg rectal suppository 25 mg = 1 supp, Rectal, BID, Refills(s) 0 Start Date: 03/13/20 Status: Ordered Comment on above: APPLY RECTALLY TWICE DAILY FOR 10 DAYS insulin regular, human (HUMULIN R U-500, CONC, KWIKPEN SUBCUTANEOUS) (4 sources) insulin regular, human (HUMULIN R U-500, CONC, KWIKPEN SUBCUTANEOUS) Inject subcutaneously. Active insulin regular, human (HUMULIN R U-500, CONC, KWIKPEN SUBCUTANEOUS) Inject subcutaneously. 0 Active Comment on above: Inject subcutaneousl y. 3 ml insulin, regular, human 500 unt/ml pen injector (20 sources) Insulin Start: 03-05-2024 insulin regular (HumuLIN R U-500 KWIKPEN) 500 UNIT/ML CONCENTRATED injection Indications: Type 2 diabetes mellitus with hyperglycemia ([facility]) INJECT 80 UNITS SUBCUTANEOUSLY TWICE A DAY 24 mL 7 03/05/2024 Active Start: 05-14-2023 HumuLIN R U-50 0 KWIKPEN 500 UNIT/ML CONCENTRATED injection INJECT 80 UNITS SUBCUTANEOUSLY TWICE A DAY 05/14/2023 Active Start: 03-13-2020 Humulin R (Con centrated) 500 units/mL subcutaneous solution See Instructions, Inject 150 units at breakfast, 140 at lunch and 75 at HS, Refills(s) 0 Start Date: 03/13/20 Status: Ordered HumuLIN R U-500 KwikPen 500 UNIT/ML as directed Subcutaneous 80 UNITS IN THE MORNING, 50 UNITS IN THE AFTERNOON Active levothyroxine sodium 0.15 mg oral tablet (20 sources) l-Thyroxine Start: 06-03-2020 take 1 tablet by mouth once daily levothyroxine (SYNTHROID) 150 mcg tablet Take 150 mcg by mouth once daily. 06/03/2020 Active Start: 03-13-2020 take 1 tablet by jono th once daily levothyroxine 150 mcg (0.15 mg) Tab 150 mcg = 1 tab(s), Oral, Daily, Refills(s) 0 Start Date: 03/13/20 Status: Ordered Comment on above: Take 150 mcg by mout h once daily. losartan potassium 25 mg oral tablet (8 sources) Angiotensin 2 Receptor Erick Start: 04-20-2023 take 1 tablet by mouth once losartan (COZAAR) 25 mg tablet Take 1 tablet by mouth every afternoon. 04/20/2023 Active Start: 04-20-2023 losartan (Coza ar) 25 MG tablet 25 mg in the morning. 04/20/2023 Active Comment on above: Take 1 tablet by jono th every afternoon. magnesium gluconate 550 mg oral tablet (6 sources) take 1 tablet by mouth in the morning magnesium 30 MG tablet Take 30 mg by mouth in the morning and 30 mg before bedtime. Active metFORMIN hydrochloride 1000 mg oral tablet (11 sources) Biguanide Start: 03-13-20 metFORMIN (GLUCOPHAGE) 1,000 mg tablet 07/24/2020 Active 24 hr mirabegron 25 mg extended release oral tablet (1 source) beta3-Adrenergic Agonist Start: 02-29-20 End: 04-29-20 24 take 1 tablet by mouth once daily Myrbetriq 25 mg oral tablet, extended release 25 mg = 1 tab(s), Oral, Daily, X 30 day(s), # 30 tab(s), Refills(s) 1, Pharmacy: [facility]/pharmacy #[id number], 152, cm, 02/29/24 9:28:00 EDT, Height/Length Dosing, 86.4, kg, 02/29/24 9:28:00 EDT, Weight Dosing Start Date: 02/29/24 Stop Date: 04/29/24 Status: Ordered Multivitamin preparation (1 source) take 1 tablet by mouth once daily Multivitamin - 1 tablet Orally Once a day Active mupirocin 0.02 mg/mg topical ointment (4 sources) RNA Synthetase Inhibitor Antibacterial Start: 12-10-19 21 mupirocin (BACTROBAN) 2 % ointment 12/09/2020 Active omeprazole 40 mg delayed release oral capsule (10 sources) Proton Pump Inhibitor Start: 03-13-20 take 1 capsule by mouth once daily omeprazole 40 mg Cap-DR 40 mg = 1 cap(s), Oral, Daily, Refills(s) 0 Start Date: 03/13/20 Status: Ordered ondansetron 4 mg oral tablet (4 sources) Serotonin-3 Receptor Antagonist Start: 10-29-19 take 1 tablet by mouth every six hours as needed ondansetron (ZOFRAN) 4 mg tablet Take 4 mg by mouth every 6 hours as needed. 10/28/2020 Active Comment on above: Take 4 mg by mouth e very 6 hours as needed. pantoprazole 40 mg delayed release oral tablet (20 sources) Proton Pump Inhibitor Start: 05-03-[address] Tab 40 mg = 1 tab(s), BID Start Date: 05/03/23 Status: Ordered Start: 05-27-2020 take 1 tablet by jono once daily pantoprazole DR (PROTONIX) 40 mg tablet Take 40 mg by mouth once daily. 05/27/2020 Active Comment on above: Take 40 mg by mouth once daily. pravastatin sodium 40 mg oral tablet (20 sources) HMG-CoA Reductase Inhibitor Start: take 1 tablet by mouth once daily at bedtime pravastatin (PRAVACHOL) 40 mg tablet Take 40 mg by mouth daily at bedtime. 04/21/2023 Active take 1 tablet by mouth once [place] y Pravastatin 10 mg one tab orally daily Active Comment on above: Take 40 mg by mouth daily at bedtime. primidone 50 mg oral tablet (20 sources) Anti-epileptic Agent Start: 01-11-2024 take 2 tablets by mouth twice daily primidone (Mysoline) 50 MG tablet Indications: Essential tremor TAKE 2 TABLETS BY MOUTH TWICE A DAY 360 tablet 1 01/11/2024 Active Start: 05-03-2023 primidone 50 m g Tab 50 mg = 1 tab(s), BID Start Date: 05/03/23 Status: Ordered Start: 04-20-2023 take 2 tablets by mo uth every twelve hours PRIMIDONE ORAL Take 2 tablets by mouth every 12 hours. 04/20/2023 Active Start: 04-20-2023 take 2 tablets by mo [facility] every twelve hours PRIMIDONE ORAL Take 2 tablets by mouth every 12 hours. 0 04/20/2023 Active take 2 tablets by mo uth every twelve hours Primidone 50 MG 2 tablets Orally Twice a day Active Primidone 50 MG 1 TABLETS Orally 2 tablets in AM and 1 tablet in PM Active Comment on above: Take 2 tablets by mo okh every 12 hours. thiamine 50 mg oral tablet (6 sources) take 1 tablet by mouth in the morning thiamine (Vitamin B-1) 50 MG tablet Take 50 mg by mouth in the morning. Active 10 actuat tiotropium 0.0025 mg/actuat inhalation spray (16 sources) Anticholinergic Start: take 2 puff(s) by mouth once daily SPIRIVA RESPIMAT 2.5 mcg/actuation inhaler INHALE 2 PUFFS BY MOUTH EVERYDAY 06/03/2020 Active Start: 03-13-2020 Spiriva Respim at 1.25 mcg/inh inhalation aerosol 2 puff(s), Inhalation, Daily, Refill(s) 0 Start Date: 03/13/20 Status: Ordered take 2 puff(s) by in halation twice daily Spiriva Respimat 2.5 MCG/ACT 2 puffs Inhalation TWICE A DAY Active Comment on above: INHALE 2 PUFFS BY MO [facility] EVERYDAY traZODone hydrochloride 100 mg oral tablet (20 sources) Serotonin Reuptake Inhibitor Start: 05-03-2023 traZODONE 100 mg Tab 100 mg = 1 tab(s), Daily Start Date: 05/03/23 Status: Ordered Start: 03-13-2020 take 1 tablet by jono th once daily at bedtime traZODone (DESYREL) 50 mg tablet TAKE 1 TABLET BY MOUTH EVERYDAY AT BEDTIME 05/30/2020 Active Comment on above: TAKE 1 TABLET BY JONO TH EVERYDAY AT BEDTIME triamcinolone acetonide 1 mg/ml topical cream (9 sources) Corticosteroid Start: 02-22-2023 triamcinolone (Kenalog) 0.1 % cream Apply topically 2 (two) times a day to affected area 02/22/2023 Active Triamcinolone Ac etonide 0.1 % 1 application Externally Twice a day Active 24 hr venlafaxine 150 mg extended release oral capsule (20 sources) Serotonin and Norepinephrine Reuptake Inhibitor Start: 01-31-2023 take 1 capsule by mouth every twenty-four hours in the morning venlafaxine XR (Effexor XR) 150 MG 24 hr capsule Take 150 mg by mouth in the morning. 01/31/2023 Active Start: 03-13-2020 take 1 capsule by mo uth once daily venlafaxine ER (EFFEXOR XR) 150 mg 24 hr capsule Take 150 mg by mouth once daily. 11/27/2021 Active End: 12-17-2021 take 1 capsule by mouth once daily venlafaxine ER (EFFEXOR XR) 75 mg 24 hr capsule Take 75 mg by mouth once daily. 0 12/17/2021 Discontinued (Changing Therapy/Dosage Form) Comment on above: Take 150 mg by mouth once daily. Take 75 mg by mouth once daily. Ventolin HFA 90 mcg/inh Aerosol (10 sources) Start: 0 take 2 puff(s) by inhalation four times daily Ventolin HFA 90 mcg/inh Aerosol 2 puff(s), Inhalation, QID Shortness of breath or wheezing, Refill(s) 0 Start Date: 03/13/20 Status: Ordered vitamin a 66427 unt oral capsule (6 sources) Vitamin A take 3 mg by mouth in the morning beta carotene (vitamin A) 3 MG (95591 UT) capsule Take 10,000 Units by mouth in the morning. Active vitamin b12 0.1 mg oral tablet (7 sources) Vitamin B12 cyanocobalamin ( Vitamin B-12) 100 MCG tablet Take 1,000 mcg by mouth in the morning. Active Vitamin B12 100 MCG as directed Orally Active Vitamin B12 100 MCG (3 sources) Vitamin B12 100 MCG as directed Orally Active Vitamin B12 250 mcg oral tablet (10 sources) Start: 03-13-2020 take 1 tablet by mouth once daily Vitamin B12 250 mcg oral tablet 250 mcg = 1 tab(s), Oral, Daily, Refills(s) 0 Start Date: 03/13/20 Status: Ordered Vitamin D3 25 MCG (1000 UT) (2 sources) take 1 tablet by mouth once daily Vitamin D3 25 MCG (1000 UT) 1 tablet Orally Once a day Active zinc sulfate 220 mg oral capsule (6 sources) zinc sulfate (Zi ncate) 220 (50 Zn) MG capsule Take 50 mg of elemental zinc by mouth in the morning. Active Completed/Discontinued Medications Medication Drug Class(es) Dates Sig (Normalized) Sig (Original) cholecalciferol 0.05 mg oral capsule (11 sources) Vitamin D Start: 03-13-2020 take 1 capsule by mouth [...] 1 tablet Orally Once a day Active Diclofenac (17 sources) Nonsteroidal Anti-inflammatory Drug Start: 03-13-2020 diclofenac Top 1% gel 2 gm, Topical, QID, Refill(s) 0 Start Date: 03/13/20 Status: Ordered diclofenac (VOLT AREN) 1 % topical gel Apply to affected area four times daily. Active Comment on above: Apply to affected ar ea four times daily. nystatin 100 unt/mg topical powder (13 sources) Polyene Antifungal Start: 07-28-2023 End: 04-09-2024 nystatin (Mycostatin) [id number] UNIT/GM powder Indications: Postmenopausal atrophic vaginitis APPLY TO AFFECTED AREA TWICE A DAY FOR 30 DAYS 60 g 3 07/28/2023 04/09/2024 Discontinued Nystatin [id number] UNIT/GM 1 application Externally Twice a day Active Nystatin [id number] UNIT/GM 1 application Externally Twice a day Active Problems Active Problems Problem Classification Problem Date Documented Da te Episodic/Chronic Abdominal pain (20 sources) Unspecified abdominal pain; Translations: [Epigastric pain] Onset: 2 Episodic Administrative/social admission (2 sources) Patient encounter status; Translations: [Dietary counseling and surveillance] 03-05-2024 Episodic Anxiety disorders (18 sources) Mixed anxiety and depressive disorder; Translations: [Anxiety] Onset: 4 03-13-2020 Chronic Chronic obstructive pulmonary disease and bronchiectasis (10 sources) Chronic obstructive lung disease 03-13-2020 Chronic Coagulation and hemorrhagic disorders (3 sources) Thrombocytopenic disorder; Translations: [Thrombocytopenia, unspecified] Onset: 4 06-26-2023 Chronic Coma; stupor; and brain damage (3 sources) Unspecified coma; Translations: [UNSPECIFIED COMA] Onset: 1 Episodic Conditions associated with dizziness or vertigo (2 sources) Dizziness and giddiness; Translations: [Dizziness and giddiness] Onset: 4 Episodic Deficiency and other anemia (10 sources) Iron deficiency anemia 03-18-2020 Episodic Delirium, dementia, and amnestic and other cognitive disorders (6 sources) Cognitive disorder; Translations: [Unspecified mental disorder due to known physiological condition] Onset: 4 10-11-2023 Chronic Diabetes mellitus with complications (17 sources) Type 2 diabetes mellitus with hypoglycemia without coma; Translations: [Type 2 diabetes mellitus with diabetic neuropathy, unspecified] Onset: 1 10-01-2020 Chronic Diabetes mellitus without complication (10 sources) Diabetes mellitus 03-13-2020 Chronic Diseases of mouth; excluding dental (2 sources) Xerostomia; Translations: [Dry mouth, unspecified] Onset: 4 Episodic Disorders of lipid metabolism (11 sources) Hyperlipidemia, unspecified; Translations: [Hyperlipidemia] Onset: 1 03-13-2020 Chronic Diverticulosis and diverticulitis (4 sources) Diverticulitis of intestine, part unspecified, with perforation and abscess with bleeding; Translations: [DVTRCLI PRT UNS W/PERF ABSC W/BLEED] Onset: 2 Chronic Esophageal disorders (20 sources) Gastroesophageal reflux disease; Translations: [Gastro-esophageal reflux disease without esophagitis] Chronic Essential hypertension (12 sources) Hypertensive disorder; Translations: [Essential hypertension] 03-13-2020 Chronic Gastrointestinal hemorrhage (10 sources) Rectal hemorrhage 09-12-2020 Episodic Genitourinary symptoms and ill-defined conditions (20 sources) Mixed incontinence; Translations: [Incontinence] Onset: 3 Chronic Genitourinary symptoms and ill-defined conditions (2 sources) Microalbuminuria; Translations: [Proteinuria, unspecified] 03-05-2024 Episodic Hemorrhoids (20 sources) Anal skin tag; Translations: [Hemorrhoids] 09-12-2020 Episodic Hepatitis (5 sources) Nonalcoholic steatohepatitis; Translations: [Nonalcoholic steatohepatitis (MENDEZ)] Onset: 3 Chronic Nausea and vomiting (20 sources) Nausea; Translations: [Nausea] Episodic Nutritional deficiencies (2 sources) Vitamin D deficiency; Translations: [Vitamin D deficiency, unspecified] 03-05-2024 Chronic Other aftercare (2 sources) alf (current) use of insulin; Translations: [CENTERLESS GRINDER CURRENT USE OF INSULIN] Onset: 1 Episodic Other aftercare (2 sources) Other vermin exterminator (current) drug therapy; Translations: [OTH MCC CURRENT DRUG THERAPY] Onset: 1 Episodic Other aftercare (1 source) terminal worker (current) use of oral hypoglycemic drugs; Translations: [MCC USE ORAL HYPOGLYCEMIC DX] Onset: 3 Episodic Other aftercare (2 sources) Long-term current use of insulin; Translations: [terminal worker (current) use of insulin] 03-05-2024 Episodic Other aftercare (2 sources) Taking high risk medication; Translations: [Other vermin exterminator (current) drug therapy] 03-05-2024 Episodic Other connective tissue disease (4 sources) Cramp and spasm; Translations: [CRAMP AND SPASM] Onset: 3 Episodic Other endocrine disorders (2 sources) Hypoglycemia; Translations: [Hypoglycemia, unspecified] 03-05-2024 Chronic Other eye disorders (1 source) Tear film insufficiency; Translations: [Dry eye syndrome of bilateral lacrimal glands] Onset: 4 Episodic Other eye disorders (1 source) Dry eyes 02-29-2024 Episodic Other gastrointestinal disorders (5 sources) Diarrhea, unspecified; Translations: [DIARRHEA UNSPECIFIED] Onset: 2 Episodic Other gastrointestinal disorders (10 sources) Constipation 03-13-2020 Episodic Other gastrointestinal disorders (10 sources) Hyperplastic polyp of intestine 04-15-2020 Episodic Other gastrointestinal disorders (10 sources) Occult blood in stools 03-18-2020 Episodic Other hereditary and degenerative nervous system conditions (16 sources) Restless legs; Translations: [Restless legs syndrome] Onset: 4 03-13-2020 Chronic Other hereditary and degenerative nervous system conditions (6 sources) Essential tremor; Translations: [Essential tremor] Onset: 4 10-11-2023 Chronic Other injuries and conditions due to external causes (1 source) History of falling; Translations: [HISTORY OF FALLING] Onset: 3 Episodic Other liver diseases (3 sources) Cirrhosis - non-alcoholic; Translations: [Unspecified cirrhosis of liver] Chronic Other liver diseases (1 source) Unspecified cirrhosis of liver; Translations: [UNSPECIFIED CIRRHOSIS OF LIVER] Onset: 3 Chronic Other nervous system disorders (10 sources) Peripheral nerve disease 03-13-2020 Chronic Other nervous system disorders (4 sources) Unsteadiness on feet; Translations: [UNSTEADINESS ON FEET] Onset: 3 Episodic Other nutritional; endocrine; and metabolic disorders (10 sources) Body mass index 30+ - obesity 12-31-2020 Chronic Other nutritional; endocrine; and metabolic disorders (6 sources) Obesity; Translations: [Obesity, unspecified] Onset: 4 10-11-2023 Chronic Other nutritional; endocrine; and metabolic disorders (2 sources) Severe obesity; Translations: [Class 2 severe obesity due to excess calories with serious comorbidity and body mass index (BMI) of 35.0 to 35.9 in adult (CMS/[facility])] 03-05-2024 Chronic Other screening for suspected conditions (not mental disorders or infectious disease) (20 sources) Encounter for screening mammogram for malignant neoplasm of breast; Translations: [Encounter for screening for malignant neoplasm of rectum] Onset: 2 Episodic Residual codes; unclassified (6 sources) Obstructive sleep apnea syndrome; Translations: [Obstructive sleep apnea (adult) (pediatric)] Onset: 4 10-11-2023 Chronic Residual codes; unclassified (6 sources) Periodic limb movement disorder; Translations: [Periodic limb movement disorder] Onset: 4 10-11-2023 Chronic Residual codes; unclassified (6 sources) Hypersomnia; Translations: [Hypersomnia, unspecified] Onset: 4 10-11-2023 Chronic Residual codes; unclassified (1 source) Altered mental status, unspecified; Translations: [ALTERED MENTAL STATUS UNSPECIFIED] Onset: 1 Episodic Residual codes; unclassified (1 source) Family history of malignant neoplasm of breast; Translations: [FAMILY HX MALIG NEOPLASM OF BREAST] Onset: 3 Episodic Residual codes; unclassified (10 sources) FH: Liver disease 03-13-2020 Episodic Skin and subcutaneous tissue infections (10 sources) Furuncle 12-31-2020 Episodic Substance-related disorders (11 sources) Nicotine dependence, cigarettes, uncomplicated; Translations: [Smoker] Onset: 3 03-13-2020 Chronic Thyroid disorders (18 sources) Hypothyroidism, unspecified; Translations: [Hypothyroidism] Onset: 1 Chronic Viral infection (4 sources) COVID-19; Translations: [COVID-19] Onset: 3 Past or Other Problems Problem Classification Problem Date Documented Date Episodic/Chronic Coagulation and hemorrhagic disorders (9 sources) Thrombocytopenia due to hypersplenism; Translations: [Other secondary thrombocytopenia] Onset: 11-29-2021 Episodic Deficiency and other anemia (1 source) Anemia, unspecified; Translations: [ANEMIA UNSPECIFIED] Onset: 03-21-2022 Episodic Diabetes mellitus without complication (1 source) Other abnormal glucose; Translations: [OTHER ABNORMAL GLUCOSE] Onset: 03-21-2022 Episodic Menopausal disorders (1 source) Hormone replacement therapy; Translations: [HORMONE REPLACEMENT THERAPY] Onset: 05-26-2022 Episodic Other hematologic conditions (2 sources) Hypersplenism; Translations: [HYPERSPLENISM] Onset: 06-15-2022 Episodic Other nervous system disorders (6 sources) Impairment of balance; Translations: [Other abnormalities of gait and mobility] Onset: 10-11-2023 10-11-2023 Episodic Other skin disorders (4 sources) Follicular disorder, unspecified; Translations: [FOLLICULAR DISORDER UNSPECIFIED] Onset: 05-22-2022 Episodic Residual codes; unclassified (6 sources) Insomnia; Translations: [Insomnia, unspecified] Onset: 10-11-2023 10-11-2023 Episodic Results Test Name Value Interpretation Reference Range Facil sampson Phillips 04-23-2024 YANY Telephone (HEMASA) RENETTA BARBOSA ([id number]) 1960 F Date Time Provider Department 04/23/24 LUZ HAMILTON During your visit today, we recorded the following information about you: Luz Hamilton RN 04/23/2024 3:41 PM Signed Pt calling to ask if she can complete Q6 month US in April d/t insurance deductible. Last US 01/03/24, pt not due until Jul 05. She denies any new concerns or problems, I just don't want to pay for it in full. Pt calling insurance to see if it will be covered, if completed sooner. Discussed with pt that order was written for every 6 months, as recommended by Mio. She prefers to complete early, if insurance will allow her. Mio: TOYIN Hamilton RN Allergies As of Date: 04/23/2024 (No Known Allergies) Date Reviewed: 06/23/2023 Reviewed by: Yaritza Amato MA - Fully Assessed Reason for Visit: US [Other] Prescriptions as of 04/23/2024 - BREZTRI AEROSPHERE 160-9-4.8 mcg/actuation HFA aerosol inhaler INHALE 2 PUFFS TWICE A DAY DIRECTED 30 - dicyclomine (BENTYL) 10 mg capsule Take 10 mg by mouth four times daily. - losartan (COZAAR) 25 mg tablet Take 1 tablet by mouth every afternoon. - pravastatin (PRAVACHOL) 40 mg tablet Take 40 mg by mouth daily at bedtime. - PRIMIDONE ORAL Take 2 tablets by mouth every 12 hours. - venlafaxine ER (EFFEXOR XR) 150 mg 24 hr capsule Take 150 mg by mouth once daily. - busPIRone (BUSPAR) 15 mg tablet Take 15 mg by mouth twice daily as needed. - FREESTYLE JEANNE 2 SENSOR kit - bisacodyl EC (DULCOLAX) 5 mg EC tablet Take 20 mg by mouth. - cephALEXin (KEFLEX) 500 mg capsule - mupirocin (BACTROBAN) 2 % ointment - ondansetron (ZOFRAN) 4 mg tablet Take 4 mg by mouth every 6 hours as needed. - pantoprazole DR (PROTONIX) 40 mg tablet Take 40 mg by mouth once daily. - SPIRIVA RESPIMAT 2.5 mcg/actuation inhaler INHALE 2 PUFFS BY MOUTH EVERYDAY - gabapentin (NEURONTIN) 300 mg capsule Take 300 mg by mouth daily at bedtime. - Estradiol (VAGIFEM) 10 mcg vaginal tablet Use 10 mcg vaginally two times a week. - buPROPion XL (WELLBUTRIN XL) 300 mg 24 hr tablet Take 300 mg by mouth once daily. - fluticasone (FLONASE) 50 mcg/actuation nasal spray Use 1 [place] in each nostril as needed. - furosemide (LASIX) 40 mg tablet Take 40 mg by mouth once daily. - levothyroxine (SYNTHROID) 150 mcg tablet Take 150 mcg by mouth once daily. - metFORMIN (GLUCOPHAGE) 1,000 mg tablet - traZODone (DESYREL) 50 mg tablet TAKE 1 TABLET BY MOUTH EVERYDAY AT BEDTIME - ferrous sulfate 325 mg (65 mg iron) tablet Take 1 tablet by mouth twice daily. - fluconazole (DIFLUCAN) 150 mg tablet TAKE 1 TABLET EVERY 72 HOURS UNTIL SYMPTOMS IMPROVE (MAX 2WK) THEN 1 TABLET ONCE WEEKLY FOR 12 WEEKS - insulin regular, human (HUMULIN R U-500, CONC, KWIKPEN SUBCUTANEOUS) Inject subcutaneously. - TRULICITY 1.5 mg/0.5 mL pen injector INJECT SUBCUTANEOUSLY ONCE A WEEK - cycloSPORINE (RESTASIS MULTIDOSE) 0.05 % drop Use 1 Drop in both eyes twice daily. - diclofenac (VOLTAREN) 1 % topical gel Apply to affected area four times daily. - cyanocobalamin, vitamin B-12, (VITAMIN B12 ORAL) Take 1,000 mcg by mouth once daily. - cholecalciferol, vitamin D3, (VITAMIN D3 ORAL) Take by mouth once daily. - CALCIUM ORAL Take by mouth once daily. - hydrocortisone (ANUSOL-HC) 2.5 % rectal cream APPLY RECTALLY TWICE DAILY FOR 10 DAYS - albuterol HFA 90 mcg/actuation HFA Inhale 2 Puffs as instructed as needed. - CICLOPIROX TOPICAL Apply to affected area. - atorvastatin (LIPITOR) 40 mg tablet Take 40 mg by mouth once daily. Problem List As Of Date 04/23/2024 Noted Resolved Thrombocytopenia (HCC) [D69.6] 06/26/2023 Diabetic gastroparesis (HCC) (HCC) [E11.43, K3*06/26/2023 Encounter Status:Closed by LUZ HAMILTON on 04/23/24 Normal [facility] Glucose (Bld) [Mass/Vol]Orde red By: Zakiya Pearl on 03-05-2024 Glucose Blood, POC 187 mg/dL [facility] - Hematology and Cell countson 03-05-2024 HbA1c (Bld) [Mass fraction] 7.4 % [facility] No Panel InformationOrdered By: Zakiya Pearl on 03-05-2024 [facility] Ambulatory Visit Summaryon 1 Ambulatory Visit Summary Ambulatory Visit Summary RENETTA BARBOSA Gabriela :1960 Visit Date:02/29/2024 Ambulatory Visit Instructions Your Diagnosis Urge incontinence Dry eyes Dry mouth Stress incontinence Your Care Team Attending Physician - NGA [...] 1.5 mg/0.5 mL subcutaneous solution) empagliflozin (Jardiance 10 mg oral tablet) empagliflozin (Jardiance 25 mg oral tablet) estradiol topical (estradiol 10 mcg vaginal insert) furosemide (Lasix 40 mg Tab) gabapentin (gabapentin 300 mg Cap) hydrocortisone topical (Anusol-HC 25 mg rectal suppository) insulin regular (Humulin R (Concentrated) 500 units/mL subcutaneous solution) levothyroxine (levothyroxine 150 mcg (0.15 mg) Tab) mirabegron (Myrbetriq 25 mg oral tablet, extended release) omeprazole (omeprazole 40 mg Cap-DR) pantoprazole (Pantoprazole [...] and adenoidectomy. Discharge Vitals Heart Rate (Peripheral) 87 Blood Pressure 150/87 Height 152 cm Height 60 in Weight 86.4 kg Weight 190.08 lb BMI 37.4 Medications What How Much When Why Instructions New mirabegron (Myrbetriq 25 mg oral tablet, extended release) 1 Tablets By Mouth Every day Mixed incontinence urge and stress Duration: 30 Days Refills: 1 Pickup at [facility]/pharmacy #[id number] Unchanged albuterol (Ventolin HFA 90 mcg/ inh [...] Milligram Subcutaneous Every week Unchanged empagliflozin (Jardiance 10 mg oral tablet) By Mouth Once a day (in the morning) Unchanged empagliflozin (Jardiance 25 mg oral tablet) [...] mg Tab) 1 Tablets Every day Unchanged venlafaxine ( (more content not included)... [facility] Urology Office/Clinic Noteon 02-29-2024 Urology Office/Clinic Note Urology Office/Clinic Note Chief Complaint Follow up to PFPT HPI Staff 2 month f/u. Previous dx: mixed incontinence. Completed PFPT #5 01/02/24. Pt states that she is having recurrent Sxs since last visit. Dysuria: No Incomplete bladder emptying: Yes, she performs DBL voids Hematuria: No Frequency: Yes, 1-1/2 hours between urinations Urgency: Yes; Moderate Nocturia: Yes, 2x a night on average Stream: No Wearing pads/ Depends: Depends-changes 1-2x a day Urge incontinence: Yes, Moderate Stress incontinence: Yes, when bending over Incontinence without Sensory Awareness: Yes Abdominal pain: No Flank pain: No Review of Systems PHQ Score Initial Depression Screen Score: 0 SCORE no fever, chills, malaise, myalgia. no rash/lesions. no chest pain, palpitations, or SOB. no abdominal pain, nausea, vomiting. no unilateral calf swelling, redness, pain Physical Exam Vitals & Measurements HR: 87(Peripheral) BP: 150/87 HT: 60 in HT: 152 cm WT: 86.4 kg WT: 190.08 lb BMI: 37.4 General: nontoxic, NAD Mouth: moist mucosa Lungs: normal respiratory effort Cardio: regular rate, good distal perfusion Abdomen: nondistended, no suprapubic distention or tenderness, no CVA tenderness Neurologic: Grossly normal Skin: No rashes or suspicious lesions Assessment/Plan UA completed in office today shows no microhematuria or signs of infection. 1. Urge incontinence (N39.41: Urge incontinence) BBSQ 23 poor No improvement despite improved DM control (was >8, now around 6 per pt), diet changes (down to 2c coffee daily from 1 pot), PFPT (did 5 visits here). Discussed tx options for bothersome urinary sx including oral medications, Botox, SNM. Medication management includes anticholinergics and beta-3 agonists. Beta-3's (Myrbetriq/Gemtesa) are often preferable due to lower side effect profile, but most insurances won't cover without trying anticholinergics first. However, pt has chronic dry eyes and dry mouth, on Rx for these. Therefore we will start with Beta 3. Pt will start with lowest daily dose and slowly titrate up as pt tolerates. Pt to call w update in 1 mo, if not at goal will increase to 50mg. Ordered: E&M of Est. Patient Moderate 30-39 Min 09685 2. Dry eyes (H04.123: Dry eye syndrome of bilateral lacrimal glands) On Restatsis Ordered: E&M of Est. Patient Moderate 30-39 Min 48740 3. Dry mouth (R68.2: Dry mouth, unspecified) On Cevimeline Ordered: E&M of Est. Patient Moderate 30-39 Min 99809 4. Stress incontinence (N39.3: Stress incontinence (female) (male)) < Ordered: E&M of Est. Patient Moderate 30-39 Min 19983 Orders: mirabegron, 25 mg = 1 tab(s), Oral, Daily, X 30 day(s), # 30 tab(s), Refills(s) 1, Pharmacy: [facility]/pharmacy #[id number], 152, cm, 02/29/24 9:28:00 EDT, Height/Length Dosing, 86.4, kg, 02/29/24 9:28:00 EDT, Weight Dosing Body Mass Index (BMI) documented 3008F Current tobacco smoker 1034F Depression Screening Negative 3352F Influenza immunization status assessed 1030F Most recent diastolic blood pressure 80-89 mm Hg 3079F Most recent systolic blood pressure >= 140 mm Hg 3077F Urnls Dip Stick Auto w/o Microscopy POC 08781 Follow-up With When Contact Information JUANITO BREWER, NGA Freedman, URL Within 3 months [address] [place] [address] Additional Instructions: Patient Education Overactive Bladder, Adult Problem List/Past Medical History Ongoing Abdominal pain, epigastric Abdominal pain, periumbilical Anal skin tag Anxiety with depression Bleeding hemorrhoid BMI 39.0-39.9,adult Chronic obstructive pulmonary disease Constipation Diabetes Dry eyes Dry mouth Family history of hepatic cirrhosis Furuncle Gastroparesis due to DM GERD (gastroesophageal reflux disease) Hemorrhoids Hiatal hernia with GERD HTN (hypertension) Hyperlipidemia Hyperplastic polyp of sigmoid colon Hypothyroid Iron deficiency anemia Mixed incontinence urge and stress Nausea Nausea in adult Occult blood in stools Peripheral neuropathy Positive colorectal cancer screening using Cologuard test Rectal bleeding RLS (restless legs syndrome) Smoker Stress incontinence Thrombocytopenia Urge incontinence Historical No qualifying data Procedure/Surgical History EGD [...] mg= 1 cap(s), TID cholecalciferol 2000 intl (more content not included)... [facility] Comment on above: Result Comment: Elec tronically Signed By: NGA WILKINS PA-C\.br\Date and Time Signed: 02/29/24 15:58 EDT Ambulatory Visit Summaryon 0 01-02-2024 Ambulatory Visit [...] NGA WILKINS PA-C Where: [facility] [address] [place] [address]- You Need to Schedule the Following Appointments Follow Up with NGA WILKINS PA-C, URL When: Within 3 months Where: [address] [place] [address] Medications What How Much When Instructions Unchanged [...] Unchanged venlafaxi (more content not included)... Normal [facility] Urology Office/Clinic Noteon 01-02-2024 Urology Office/Clinic Note [...] Trulicity and insulin, last A1c in Dec 28.3, just had another one drawn yesterday we [...] up to a max of 10 Ordered: 53756 EMG anal/urethral sphincter no needle 96070 Biofeedback training, perineal muscles, anorectal 27334 Anorectal Manometry 36948 ELECTRICAL STIMULATION 91406 Urnls Dip Stick Auto w/o Microscopy POC 63788 Follow-up With When Contact Information JUANITO BREWER, NGA Freedman, YARA Within 3 months [address] [place] [address] Additional Instructions: Patient Education Overactive Bladder, Adult [...] Bedtime Humu (more content not included)... [facility] Comment on above: Result Comment: Elec tronically [...] NGA WILKINS PA-C Where: [facility] Normal [address] [place] [place] [address]- \.br\ You Need to Schedule the Following Appointments\.br\ Follow Up with NGA WILKINS PA-C, URL When: In 2 weeks\.br\ Where:\.br\ [address]\ [place] [address]\.br\ \.br\ Medications\.br\ What How Much When Instructions\.br\ [...] Reviewed: 09/17/2021 Elsevier Patient Education ? 2022 [employer] Inc.\.br\ \.br\ [facility] Interdisciplinary Note - Soc ial Workeron 12-05-2023 Interdisciplinary Note - Blow Off Worker Interdisciplinary Note - Blow Off Worker Consult for positive depression screen received. Chart review completed and it was noted that this consult has been received in error as patient's depression screen score was 0. SW will remain available. [facility] Urology Office/Clinic Noteon 12-05-2023 Urology Office/Clinic Note [...] Urnls Dip Stick Auto w/o Microscopy POC 15938 Follow-up With When Contact Information JUANITO BREWER, NGA Freedman, URL In 2 weeks [address] [place] [place] [address] Additional Instructions: Patient Education Kegel [...] 1 cap (more content not included)... [facility] Comment on above: Result Comment: Elec tronically [...] NGA WILKINS PA-C Where: [facility] Invalid Interpretation Code [address] [place] [address]- \.br\ Tuesday 11:20 AM EDT \.br\ With: JUANITO BREWER, NGA Freedman\.br\ Where: [facility] Urology Office/Clinic Noteon 11-28-2023 [...] and discuss other options, try PFPT at [facility] or [facility]. Pt prefers options #1. Follow up 1 week for PFPT #4 or sooner if needed. Pt understands and agrees with plan. Follow-up With When Contact Information JUANITO BREWER, NGA Freedman, URL [address] [place] [address] Additional Instructions: 1 week PFPT #4 Patient Education Kegel Exercises Documentation recorded by the scribsade Batista accurately reflects the services(s) I performed [...] Daily Magdaleno (more content not included)... [facility] Comment on above: Result Comment: Elec tronically [...] NGA WILKINS PA-C Where: [facility] Invalid Interpretation Code [address] [place] [address]- \.br\ Tuesday 11:20 AM EDT \.br\ With: NGA WILKINS PA-C\.br\ Where: [facility] Urology Office/Clinic Noteon 11-21-2023 Urology Office/Clinic Note [...] in 1 week(s) for session #3 Ordered: 11186 EMG anal/urethral sphincter no needle 48720 Biofeedback training, perineal muscles, anorectal 31702 Anorectal Manometry 85532 ELECTRICAL STIMULATION 82969 Urnls Dip Stick Auto w/o Microscopy POC 13312 Follow-up With When Contact Information JUANITO BREWER, NGA Freedman, URL In 1 week [address] [place] [address] Additional Instructions: Patient Education Overactive [...] Use:. Cigarett (more content not included)... [facility] Comment on above: Result Comment: Elec tronically Signed By: NGA WILKINS PA-C\.anamika\Date and Time Signed: 11/21/23 12:27 EDT Consent for Procedure/Surger yon 11-15-2023 Consent for Procedure/Surgery [id number] TIFF Normal [facility] EMG Electromyographyon 11-14 EMG Electromyography [id number]#1.00 TIFF Catie Medeiros [facility] Ambulatory Visit Summaryon 0 11-14-2023 [...] NGA WILKINS PA-C Where: [facility] Invalid Interpretation Code [address] [place] [address]- \.br\ Tuesday 11:20 AM EDT \.br\ With: NGA WILKINS PA-C\.br\ Where: [facility] Patient Educationon 11-14-19 Patient [...] health care provider. General instructions ? Take [id number]-[id number] and prescription medicines only as told by [...] monitor yo (more content not included)... [facility] Urology Office/Clinic Noteon 11-14-2023 Urology Office/Clinic Note [...] in 1 week(s) for session #2 Ordered: 29307 EMG anal/urethral sphincter no needle 16338 Biofeedback training, perineal muscles, anorectal 89440 Anorectal Manometry 87351 ELECTRICAL STIMULATION 88020 Urnls Dip Stick Auto w/o Microscopy POC 86074 Urnls Dip Stick Auto w/o Microscopy POC 11277 Follow-up With When Contact Information NGA WILKINS PA-C, URL In 1 week [address] [place] [address] Additional Instructions: Patient Education Overactive [...] or more (more content not included)... Normal [facility] Comment on above: Result Comment: Elec tronically Signed By: NGA WILKINS PA-C\.br\Date and Time Signed: 11/14/23 12:44 EDT Office Visiton 08-02-2023 Follow-up visit [id number] Renetta Barbosa 1960 F Date Provider Department Center 08/02/2023 Hany-CHAVA QUIROZ FENG [facility] Hos Family History Problem Relation Age of Onset Diabetes Mother Lung cancer Father Breast cancer Maternal Grandmother Family Status - Relation Status Age at Mother Father Maternal Grandmother Level of Service:37952 AL OFFICE/OUTPATIENT NEW MODERATE MDM 45 MINUTES Normal [facility] CBC W Auto Differential pane l (Bld)on 06-23-2023 Basophils (Bld) [#/Vol] 0.03 10*3/uL Normal <0.11 [facility] Comment on above: Order Comment: Speci men Type: BLOOD SPECIMEN Ordering Facility: [facility] Address: [address] [place] [address] Performed By: #### 5 7021-8 #### [facility] CLIA [id number] [address] [place] [address] 70899 Basophils/100 WBC (Bld) 0.5 % Normal [facility] Comment on above: Order Comment: Speci men Type: BLOOD SPECIMEN Ordering Facility: [facility] Address: [address] [place] [address] Performed By: #### 5 7021-8 #### [facility] CLIA [id number] [address] [place] [address] 43667 Differential cell count method Nom (Bld) Auto Normal [facility] Comment on above: Order Comment: Speci men Type: BLOOD SPECIMEN Ordering Facility: [facility] Address: [address] [place] [address] Performed By: #### 5 7021-8 #### [facility] CLIA [id number] [address] [place] [address] Eosinophils (Bld) [#/Vol] 0.06 10*3/uL Normal <0.46 [facility] Comment on above: Order Comment: Speci men Type: BLOOD SPECIMEN Ordering Facility: [facility] Address: [address] [place] [address] Performed By: #### 5 7021-8 #### [facility] CLIA [id number] [address] [place] [address] 94921 Eosinophils/100 WBC (Bld) 1.0 % Normal [facility] Comment on above: Order Comment: Speci men Type: BLOOD SPECIMEN Ordering Facility: [facility] Address: [address] [place] [address] Performed By: #### 5 7021-8 #### [facility] CLIA [id number] [address] [place] [address] 95968 Erythrocyte distribution width (RBC) [Ratio] 16.0 % High 11.5-15.0 [facility] Comment on above: Order Comment: Speci men Type: BLOOD SPECIMEN Ordering Facility: [facility] Address: [address] [place] [address] Performed By: #### 5 7021-8 #### [facility] CLIA [id number] [address] [place] [address] 46176 Hematocrit (Bld) [Volume fraction] 43.6 % Normal 36.0-46.0 [facility] Comment on above: Order Comment: Speci men Type: BLOOD SPECIMEN Ordering Facility: [facility] Address: [address] [place] [address] Performed By: #### 5 7021-8 #### [facility] CLIA [id number] [address] [place] [address] 79927 Hemoglobin (Bld) [Mass/Vol] 13.7 g/dL Normal 11.5-15.5 [facility] Comment on above: Order Comment: Speci men Type: BLOOD SPECIMEN Ordering Facility: [facility] Address: [address] [place] [address] Performed By: #### 5 7021-8 #### [facility] CLIA [id number] [address] [place] [address] 47704 Immature granulocytes (Bld) [#/Vol] 10*3/uL Normal <0.10 [facility] Comment on above: Order Comment: Speci men Type: BLOOD SPECIMEN Ordering Facility: [facility] Address: [address] [place] [address] Performed By: #### 5 7021-8 #### [facility] CLIA [id number] [address] [place] [address] 89062 Immature granulocytes/100 WBC (Bld) 0.3 % Normal [facility] Comment on above: Order Comment: Speci men Type: BLOOD SPECIMEN Ordering Facility: [facility] Address: [address] [place] [address] Performed By: #### 5 7021-8 #### [facility] CLIA [id number] [address] [place] [address] 12901 Lymphocytes (Bld) [#/Vol] 1.03 10*3/uL Normal 1.00-4.00 [facility] Comment on above: Order Comment: Speci men Type: BLOOD SPECIMEN Ordering Facility: [facility] Address: [address] [place] [address] Performed By: #### 5 7021-8 #### [facility] CLIA [id number] [address] [place] [address] 04133 Lymphocytes/100 WBC (Bld) 17.3 % Normal [facility] Comment on above: Order Comment: Speci men Type: BLOOD SPECIMEN Ordering Facility: [facility] Address: [address] [place] [address] Performed By: #### 5 7021-8 #### [facility] CLIA [id number] [address] [place] [address] 75683 MCH (RBC) [Entitic mass] 26.7 pg Normal 26.0-34.0 [facility] Comment on above: Order Comment: Speci men Type: BLOOD SPECIMEN Ordering Facility: [facility] Address: [address] [place] [address] Performed By: #### 5 7021-8 #### [facility] CLIA [id number] [address] [place] [address] 43763 MCHC (RBC) [Mass/Vol] 31.4 g/dL Normal 30.5-36.0 [facility] Comment on above: Order Comment: Speci men Type: BLOOD SPECIMEN Ordering Facility: [facility] Address: [address] [place] [address] Performed By: #### 5 7021-8 #### [facility] CLIA [id number] [address] [place] [address] 84383 MCV (RBC) [Entitic vol] 85.0 fL Normal 80.0-100.0 [facility] Comment on above: Order Comment: Speci men Type: BLOOD SPECIMEN Ordering Facility: [facility] Address: [address] [place] [address] Performed By: #### 5 7021-8 #### [facility] CLIA [id number] [address] [place] [address] 49277 Monocytes (Bld) [#/Vol] 0.35 10*3/uL Normal <0.87 [facility] Comment on above: Order Comment: Speci men Type: BLOOD SPECIMEN Ordering Facility: [facility] Address: [address] [place] [address] Performed By: #### 5 7021-8 #### [facility] CLIA [id number] [address] [place] [address] 69608 Monocytes/100 WBC (Bld) 5.9 % Normal [facility] Comment on above: Order Comment: Speci men Type: BLOOD SPECIMEN Ordering Facility: [facility] Address: [address] [place] [address] Performed By: #### 5 7021-8 #### [facility] CLIA [id number] [address] [place] [address] Neutrophils (Bld) [#/Vol] 4.46 10*3/uL Normal 1.45-7.50 [facility] Comment on above: Order Comment: Speci men Type: BLOOD SPECIMEN Ordering Facility: [facility] Address: [address] [place] [address] Performed By: #### 5 7021-8 #### [facility] CLIA [id number] [address] [place] [address] Neutrophils/100 WBC (Bld) 75.0 % Normal [facility] Comment on above: Order Comment: Speci men Type: BLOOD SPECIMEN Ordering Facility: [facility] Address: [address] [place], [place] [address] Performed By: #### 5 7021-8 #### [facility] CLIA [id number] [address] [place] [address] 46187 Nucleated RBC (Bld) [#/Vol] 10*3/uL Normal <0.01 [facility] Comment on above: Order Comment: Speci men Type: BLOOD SPECIMEN Ordering Facility: [facility] Address: [address] [place] [address] Performed By: #### 5 7021-8 #### [facility] CLIA [id number] [address] [place] [address] 79709 Nucleated RBC/100 WBC (Bld) [Ratio] 0.0 /100 WBC Normal [facility] Comment on above: Order Comment: Speci men Type: BLOOD SPECIMEN Ordering Facility: [facility] Address: [address] [place] [address] Performed By: #### 5 7021-8 #### [facility] CLIA [id number] [address] [place] [address] 56146 Platelet mean volume (Bld) [Entitic vol] 11.9 fL Normal 9.0-12.7 [facility] Comment on above: Order Comment: Speci men Type: BLOOD SPECIMEN Ordering Facility: [facility] Address: [address] [place], [place] [address] Performed By: #### 5 7021-8 #### [facility] CLIA [id number] [address] [place] [address] 84487 Platelets (Bld) [#/Vol] 140 10*3/uL Low 150-400 [facility] Comment on above: Order Comment: Speci men Type: BLOOD SPECIMEN Ordering Facility: [facility] Address: [address] [place] [address] Performed By: #### 5 7021-8 #### [facility] CLIA [id number] [address] [place] [address] 13228 RBC (Bld) [#/Vol] 5.13 10*6/uL Normal 3.90-5.20 [facility] Comment on above: Order Comment: Speci men Type: BLOOD SPECIMEN Ordering Facility: [facility] Address: [address] [place] [address] Performed By: #### 5 7021-8 #### [facility] CLIA [id number] [address] [place] [address] 24350 WBC (Bld) [#/Vol] 5.95 10*3/uL Normal 3.70-11.00 [facility] Comment on above: Order Comment: Speci men Type: BLOOD SPECIMEN Ordering Facility: [facility] Address: [address] [place] [address] Performed By: #### 5 7021-8 #### [facility] CLIA [id number] [address] [place] [address] 04108 CNOVSPon 06-23-2023 CNOVSP Visit (SP) Office ([place]) RENETTA BARBOSA ([id number]) 1960 F Date Time Provider Department 06/23/23 2:00 PM ANDRE FUNES During your visit today, we recorded the following information about you: Temperature Pulse Respiration Blood pressure 97.6 degrees 107/minute 18/minute 149/93 Weight Height 91.1 kg 1.575 m Andre Funes MD 06/26/2023 1:35 PM Signed NAME: Renetta Barbosa CLINIC NO.: [id number] DATE OF SERVICE: June 23, 2023 ([place]) [...] HCC screening PLAN: Need US results from [facility] from last week. Recommend alternating follow up [...] returns today in follow up. US in [facility] with enlarged nodular liver no masses. She [...] medical changes. (more content not included)... Normal [facility] Comprehensive metabolic 2000 panelon 06-23-2023 Albumin [Mass/Vol] 4.5 g/dL Normal 3.9-4.9 [facility] Comment on above: Order Comment: Speci men Type: BLOOD SPECIMEN Ordering Facility: [facility] Address: [address] [place] [address] Performed By: #### 2 4323-8 #### [facility] CLIA [id number] [address] [place] [address] 38448 ALP [Catalytic activity/Vol] 112 U/L Normal 34-123 [facility] Comment on above: Order Comment: Speci men Type: BLOOD SPECIMEN Ordering Facility: [facility] Address: [address] [place] [address] Performed By: #### 2 4323-8 #### [facility] CLIA [id number] [address] [place] [address] 52932 ALT [Catalytic activity/Vol] 29 U/L Normal 7-38 [facility] Comment on above: Order Comment: Speci men Type: BLOOD SPECIMEN Ordering Facility: [facility] Address: [address] [place] [address] Performed By: #### 2 4323-8 #### [facility] CLIA [id number] [address] [place] [address] 09380 Anion gap [Moles/Vol] 14 mmol/L Normal 9-18 [facility] Comment on above: Order Comment: Speci men Type: BLOOD SPECIMEN Ordering Facility: [facility] Address: [address] [place] [address] Performed By: #### 2 4323-8 #### [facility] CLIA [id number] [address] [place] [address] AST [Catalytic activity/Vol] 31 U/L Normal 13-35 [facility] Comment on above: Order Comment: Speci men Type: BLOOD SPECIMEN Ordering Facility: [facility] Address: [address] [place] [address] Performed By: #### 2 4323-8 #### [facility] CLIA [id number] [address] [place] [address] 37235 Bilirubin [Mass/Vol] 0.4 mg/dL Normal 0.2-1.3 [facility] Comment on above: Order Comment: Speci men Type: BLOOD SPECIMEN Ordering Facility: [facility] Address: [address] [place] [address] Performed By: #### 2 4323-8 #### [facility] CLIA [id number] [address] [place] [address] 27235 Calcium [Mass/Vol] 9.8 mg/dL Normal 8.5-10.2 [facility] Comment on above: Order Comment: Speci men Type: BLOOD SPECIMEN Ordering Facility: [facility] Address: [address] [place] [address] Performed By: #### 2 4323-8 #### [facility] CLIA [id number] [address] [place] [address] 25003 Chloride [Moles/Vol] 100 mmol/L Normal 97-105 [facility] Comment on above: Order Comment: Speci men Type: BLOOD SPECIMEN Ordering Facility: [facility] Address: [address] [place] [address] Performed By: #### 2 4323-8 #### [facility] CLIA [id number] [address] [place] [address] 94208 CO2 [Moles/Vol] 19 mmol/L Low 22-30 [facility] Comment on above: Order Comment: Speci men Type: BLOOD SPECIMEN Ordering Facility: [facility] Address: [address] [place] [address], [place] [address] Performed By: #### 2 4323-8 #### [facility] CLIA [id number] [address] [place] [address] 68497 Creatinine [Mass/Vol] 0.72 mg/dL Normal 0.58-0.96 [facility] Comment on above: Order Comment: Spectamar men Type: BLOOD SPECIMEN Ordering Facility: [facility] Address: [address] [place] [address] Performed By: #### 2 4323-8 #### [facility] CLIA [id number] [address] [place] [address] 08795 Creatinine and Glomerular filtration rate.predicted panel (S/P/Bld) 94 mL/min/1.73m??? Normal >=60 [facility] Comment on above: Order Comment: Napoleoni leon Type: BLOOD SPECIMEN Ordering Facility: [facility] Address: [address] [place] [address] Result Comment: Alisha mated Glomerular Filtration Rate [...] GFR. Performed By: #### 2 4323-8 #### [facility] CLIA [id number] [address] [place] [address] 66316 Glucose [Mass/Vol] 316 mg/dL High 74-99 [facility] Comment on above: Order Comment: Speci men Type: BLOOD SPECIMEN Ordering Facility: [facility] Address: [address] [place] [id number] Result Comment: The [place] [employer] (ADA) provides guidance for cutoff [...] Standards of Medical Care in Diabetes 2016, [place] [employer]. Diabetes Care. 2016.39(Suppl 1). Performed By: #### 2 4323-8 #### [facility] CLIA [id number] [address] [place] [address] Potassium [Moles/Vol] 3.9 mmol/L Normal 3.7-5.1 [facility] Comment on above: Order Comment: Speci men Type: BLOOD SPECIMEN Ordering Facility: [facility] Address: [address] [place] [address] Performed By: #### 2 4323-8 #### [facility] CLIA [id number] [address] [place] [address] 17533 Protein [Mass/Vol] 7.6 g/dL Normal 6.3-8.0 [facility] Comment on above: Order Comment: Speci men Type: BLOOD SPECIMEN Ordering Facility: [facility] Address: [address] [place] [address] Performed By: #### 2 4323-8 #### [facility] CLIA [id number] [address] [place] [address] 73255 Sodium [Moles/Vol] 133 mmol/L Low 136-144 [facility] Comment on above: Order Comment: Speci men Type: BLOOD SPECIMEN Ordering Facility: [facility] Address: [address] [place] [address] Performed By: #### 2 4323-8 #### [facility] CLIA [id number] [address] [place] [address] 43559 Urea nitrogen [Mass/Vol] 14 mg/dL Normal 7-21 [facility] Comment on above: Order Comment: Speci men Type: BLOOD SPECIMEN Ordering Facility: [facility] Address: [address] [place] [address] Performed By: #### 2 4323-8 #### [facility] CLIA [id number] [address] [place] [address] Ferritin SerPl-mCncon 2023 Ferritin [Mass/Vol] 20.1 ng/mL Normal 14.7-205.1 [facility] Comment on above: Order Comment: Speci men Type: BLOOD SPECIMEN Ordering Facility: [facility] Address: [address] [place] [address] Performed By: #### 2 276-4, 2284-8, 96647-1, 9 #### [facility] CLIA [id number] [address] [place] [address] [place] Folate SerPl-mCncon 06-23-19 Folate [Mass/Vol] 11.2 ng/mL Normal >4.7 [facility] Comment on above: Order Comment: Speci men Type: BLOOD SPECIMEN Ordering Facility: [facility] Address: [address] [place] [address] Performed By: #### 2 276-4, 2284-8, 49676-8, 9 #### [facility] CLIA [id number] [address] [place] [address] [place] Iron and Iron binding capaci ty panelon 06-23-2023 Iron [Mass/Vol] 96 ug/dL Normal 41-186 [facility] Comment on above: Order Comment: Speci men Type: BLOOD SPECIMEN Ordering Facility: [facility] Address: [address] [place] [address] Performed By: #### 2 276-4, 2284-8, 48323-2, 9 #### [facility] CLIA [id number] [address] [place] [address] [place] Iron binding capacity [Mass/Vol] 434 ug/dL High 232-386 [facility] Comment on above: Order Comment: Speci men Type: BLOOD SPECIMEN Ordering Facility: [facility] Address: [address] [place] [address] Performed By: #### 2 276-4, 2284-8, 39286-8, 9 #### [facility] CLIA [id number] [address] [place] [address] [place] Iron/TIBC [Molar ratio] 22.1 % Normal 15.0-57.0 [facility] Comment on above: Order Comment: Speci men Type: BLOOD SPECIMEN Ordering Facility: [facility] Address: [address] [place] [address] Performed By: #### 2 276-4, 2284-8, 72242-7, 9 #### [facility] CLIA [id number] [address] [place] [address] [place] Vit B12 [facility] 024 Cobalamin (Vitamin B12) [Mass/Vol] 586 pg/mL Normal 232-1245 [facility] Comment on above: Order Comment: Kevin quintero Type: BLOOD SPECIMEN Ordering Facility: [facility] Address: [address] [place] [address] Performed By: #### 2 276-4, 2284-8, 76354-0, 9 #### [facility] CLIA [id number] [address] [place] [address] [place] Office Visiton 06-21-2023 Follow-up visit [id number] Renetta Barbosa 1960 F Date Provider Department Center 06/21/2023 [facility] Family History Problem Relation Age of Onset Diabetes Mother Lung cancer Father Breast cancer Maternal Grandmother Family Status - Relation Status Age at Mother Father Maternal Grandmother Level of Service:97368 AL OFFICE/OUTPATIENT NEW MODERATE MDM 45 MINUTES Normal [facility] Physician Referralon 023 Physician Referral [id number] 0TIFF Normal [facility] 05-04-2023 Screens [id number] Normal [facility] Patient Educationon 05-03-20 Patient Education Obstetrics and Gynecology Overactive Bladder, [...] health care provider. General instructions ? Take jzsa-sjs-oduxyxl and prescription medicines only as told by [...] monitor yo (more content not included)... Normal [facility] CT LUNG CANCER SCREENINGon 0 [...] LEONEL MATA Date: 2022-10-20 08:02 Normal [facility] CBC AUTO DIFFon 10-19-2022 BASO # 0.0 103/ul Normal 0.0-0.1 [facility] Comment on above: Performed By: #### C BC #### [facility] [address] [place], [place] [address] Dr. Blanquita Farris Basophils/100 WBC (Bld) 0.4 % Normal 0.2-2.0 [facility] Comment on above: Performed By: #### C BC #### [facility] [address] [place], [place] [address] Dr. Blanquita Farris EO # 0.1 103/ul Normal 0.0-0.7 [facility] Comment on above: Performed By: #### C BC #### [facility] [address] [place] [address] [address] Blanquita Farris Eosinophils/100 WBC (Bld) 1.5 % Normal 0.9-7.0 [facility] Comment on above: Performed By: #### C BC #### [facility] [address] [place] [address] Dr. Blanquita Farris Erythrocyte distribution width (RBC) [Ratio] 15.3 % Critically high 11.0-15.0 [facility] Comment on above: Performed By: #### C BC #### [facility] [address] [place] [address] Dr. Blanquita Farris Hematocrit (Bld) [Volume fraction] 42.7 % Normal 36.0-48.0 [facility] Comment on above: Performed By: #### C BC #### [facility] [address] [place] [address] Dr. Blanquita Farris Hemoglobin (Bld) [Mass/Vol] 13.8 g/dL Normal 12.0-16.0 [facility] Comment on above: Performed By: #### C BC #### [facility] [address] [place] [address] Dr. Blanquita Farris IG # 0.04 10e3/ul Critically high 0.00-0.03 [facility] Comment on above: Performed By: #### C BC #### [facility] [address] [place] [address] Dr. Blanquita Farris IG % 0.6 % Critically high 0.0-0.5 [facility] Comment on above: Performed By: #### C BC #### [facility] [address] [place] [address] Dr. Blanquita Farris LYMPH # 1.2 103/ul Normal 1.2-3.8 [facility] Comment on above: Performed By: #### C BC #### [facility] [address] [place] [address] Dr. Blanquita Farris Lymphocytes/100 WBC (Bld) 18.0 % Critically low 20.5-60.0 [facility] Comment on above: Performed By: #### C BC #### [facility] [address] [place] [address] Dr. Blanquita Farris MANUAL DIFF REQ NO Normal [facility] Comment on above: Performed By: #### C BC #### [facility] [address] [place] [address] Dr. Blanquita Farris MCH (RBC) [Entitic mass] 26.8 pg Normal 26.7-34.0 [facility] Comment on above: Performed By: #### C BC #### [facility] [address] [place] [address] Dr. Blanquita Farris MCHC (RBC) [Mass/Vol] 32.3 g/dL Normal 29.9-35.2 [facility] Comment on above: Performed By: #### C BC #### [facility] Laboratory [address] [place] [address] Dr. Blanquita Farris MCV (RBC) [Entitic vol] 83.1 fL Normal 81.0-99.0 [facility] Comment on above: Performed By: #### C BC #### [facility] [address] [place] [address] Dr. Blanquita Farris MONO # 0.4 103/ul Normal 0.3-0.8 [facility] Comment on above: Performed By: #### C BC #### [facility] [address] [place] [address] Dr. Blanquita Farris Monocytes/100 WBC (Bld) 5.4 % Normal 1.7-12.0 [facility] Comment on above: Performed By: #### C BC #### [facility] [address] [place] [address] Dr. Blanquita Farris NEUT # 5.0 103/ul Normal 1.4-6.5 [facility] Comment on above: Performed By: #### C BC #### [facility] [address] [place] [address] Dr. Blanquita Farris Neutrophils/100 WBC (Bld) 74.1 % Normal 43.0-75.0 [facility] Comment on above: Performed By: #### C BC #### [facility] [address] [address] [address] Blanquita Farris Platelet mean volume (Bld) [Entitic vol] 10.2 fL Normal 9.5-13.5 [facility] Comment on above: Performed By: #### C BC #### [facility] [address] [address] [address] Blanquita Farris PLT 180 103/ul Normal 150-450 [facility] Comment on above: Performed By: #### C BC #### [facility] [address] [address] [address] Blanquita Farris RBC 5.14 106/ul Normal 4.20-5.40 [facility] Comment on above: Performed By: #### C BC #### [facility] [address] [address] [address] Blanquita Farris WBC 6.8 103/ul Normal 4.0-11.0 [facility] Comment on above: Performed By: #### C BC #### [facility] [address] [address] [address] Blanquita Farris CPKon 10-19-2022 CK [Catalytic activity/Vol] 68 U/L Normal 26-192 [facility] Comment on above: Performed By: #### C MP, CK, TSH #### [facility] [address] [address] [address] Blanquita Farris MG MAMM SCREEN 3D SANTIAGO CADon 10-19-2022 MG MAMM SCREEN 3D SANTIAGO CAD Patient: RENETTA BARBOSA Exam Date: 10/19/2022 : 1960 Gender:F Ordering : SHAKIRA HIGGINS [facility] Admission #: [id number] Family : DR TJ DUTTON Order #: [id number] CLICK HERE TO VIEW EXAM RADIOLOGY REPORT [...] breast cancer at age 80. LOCATION: [facility] BREAST COMPOSITION: Scattered areas fibroglandular density. [...] MD on 10/19/2022 at 13:50 Normal [facility] PROF 14(COMP METB)on 023 Albumin [Mass/Vol] 3.7 g/dL Normal 3.4-5.0 [facility] Comment on above: Performed By: #### C MP, CK, TSH #### [facility] [address] [place] [address] Dr. Blanquita Farris Albumin/Globulin [Mass ratio] 0.8 {ratio} Normal [facility] Comment on above: Performed By: #### C MP, CK, TSH #### [facility] [address] [place] [address] Dr. Blanquita Farris ALP [Catalytic activity/Vol] 120 U/L Critically high 46-116 [facility] Comment on above: Performed By: #### C MP, CK, TSH #### [facility] [address] [address] [address] Blanquita Farris ALT [Catalytic activity/Vol] 31 U/L Normal 14-59 [facility] Comment on above: Performed By: #### C MP, CK, TSH #### [facility] [address] [address] [address] Blanquita Farris Anion gap [Moles/Vol] 14.2 mmol/L Normal [facility] Comment on above: Performed By: #### C MP, CK, TSH #### [facility] [address] [place] [address] Dr. Blanquita Farris AST [Catalytic activity/Vol] 19 U/L Normal 15-37 [facility] Comment on above: Performed By: #### C MP, CK, TSH #### [facility] [address] [address] [address] Blanquita Farris Bilirubin [Mass/Vol] 0.3 mg/dL Normal 0.2-1.0 [facility] Comment on above: Performed By: #### C MP, CK, TSH #### [facility] [address] [place] [address] Dr. Blanquita Farris Calcium [Mass/Vol] 9.4 mg/dL Normal 8.5-10.1 [facility] Comment on above: Performed By: #### C MP, CK, TSH #### [facility] [address] [place] [address] Dr. Blanquita Farris Chloride [Moles/Vol] 101 mmol/L Normal 98-107 [facility] Comment on above: Performed By: #### C MP, CK, TSH #### [facility] [address] [place] [address] Dr. Blanquita Farris CO2 [Moles/Vol] 28.4 mmol/L Normal 21.0-32.0 [facility] Comment on above: Performed By: #### C MP, CK, TSH #### [facility] [address] [place] [address] Dr. Blanquita Farris Creatinine [Mass/Vol] 1.04 mg/dL Critically high 0.55-1.02 [facility] Comment on above: Performed By: #### C MP, CK, TSH #### [facility] [address] [place] [address] Dr. Blanquita Farris EGFR-AF PRYDEINIG >60 Normal >=60 [facility] Comment on above: Performed By: #### C MP, CK, TSH #### [facility] [address] [place] [address] Dr. Blanquita Farris EGFR-NON AF PRYDEINIG 54 mL/min/1.73m2 Critically low >=60 [facility] Comment on above: Performed By: #### C MP, CK, TSH #### [facility] [address] [place] [address] Dr. Blanquita Farris Globulin (S) [Mass/Vol] 4.6 g/dL Normal [facility] Comment on above: Performed By: #### C RENE CK, TSH #### [facility] [address] [place] [address] Dr. Blanquita Farris Glucose [Mass/Vol] 194 mg/dL Critically high 74-106 [facility] Comment on above: Performed By: #### C RENE CK, TSH #### [facility] [address] [place] [address] Dr. Blanquita Farris Potassium [Moles/Vol] 3.6 mmol/L Normal 3.5-5.1 [facility] Comment on above: Performed By: #### C RENE CK, TSH #### [facility] [address] [place] [address] Dr. Blanquita Farris Protein [Mass/Vol] 8.3 g/dL Critically high 6.4-8.2 [facility] Comment on above: Performed By: #### C RENE CK, TSH #### [facility] [address] [place] [address] Dr. Blanquita Farris Sodium [Moles/Vol] 140 mmol/L Normal 136-145 [facility] Comment on above: Performed By: #### C RENE CK, TSH #### [facility] [address] [place] [address] Dr. Blanquita Farris Urea nitrogen [Mass/Vol] 13.0 mg/dL Normal 7.0-18.0 [facility] Comment on above: Performed By: #### C RENE CK, TSH #### [facility] [address] [place] [address] Dr. Blanquita Farris Urea nitrogen/Creatinine [Mass ratio] 12.5 mg/mg Normal [facility] Comment on above: Performed By: #### C MP CK, TSH #### [facility] [address] [place] [address] Dr. Blanquita Farris TSHon 10-19-2022 TSH 0.292 uIU/mL Critically low 0.358-3.740 [facility] Comment on above: Performed By: #### C MP, CK, TSH #### [facility] [address] [place], [place] [address] Dr. Blanquita Farris VITAMIN B12on 10-19-2022 Cobalamin (Vitamin B12) [Mass/Vol] 912.0 pg/mL Normal 193.0-986.0 [facility] Comment on above: Performed By: #### V ITB12 #### [facility] [id number] Blanquita Farris US SINGLE QUAD RT [...] KAILEE YANG Date: 2022-06-10 11:46 Normal [facility] US SPLEENon 06-10-2022 US SPLEEN [...] by: KAILEE YANG Date: 2022-06-10 12:04 Normal [facility] LACTOFERRIN FECAL QUANTon Lactoferrin, Fecal, Quant. 1.96 ug/mL(g) Normal 0.00-7.24 [facility] Comment on above: Result Comment: [...] (IBS). Performed By: #### I NSULIN #### [facility] [address] [address] [address] Blanquita Farris CALPROTECTIN, FECALon 2021 Calprotectin, Fecal 33 ug/g Normal 0-120 [facility] Comment on above: Result Comment: Conc entration Interpretation Follow-Up <16 - 50 ug/g Normal None >50 -120 ug/g Borderline Re-evaluate in 4-6 weeks >120 ug/g Abnormal Repeat as clinically indicated Performed By: #### C ALPOO #### [facility] [address] [address] [address] Blanquita Farris PANCREATIC ELASTASE FECALon 03-20-2022 Pancreatic Elastase, Fecal 364 ug Elast./g Normal >200 [facility] Comment on above: Result Comment: Korina re Pancreatic Insufficiency: <100 Moderate Pancreatic Insufficiency: 100 - 200 Normal: >200 Performed By: #### C BC #### [facility] [address] [address] [address] Blanquita Farris BOWEL DISORDERS EVALUATION R ULE-OUT CASCon 03-18-2022 Atypical pANCA Negative Normal Negative [facility] Comment on above: Performed By: #### C BC #### [facility] [address] [address] [address] Blanquita Farris Note: Comment Normal [facility] Comment on above: Result Comment: Sugg estive of Crohn's disease. Subsequent testing with the Crohn's Disease Prognostic Profile ([id number]) that includes antiglycan antibodies AMCA, ALCA, ACCA, and Xochitl may aid in the differentiation of clinical forms of CD and prognosis of disease progression. Performed By: #### C BC #### [facility] [address] [place] [address] Dr. Blanquita Farris Saccharomyces Cer. IgG 28.0 Units Critically high 0.0-24.9 [facility] Comment on above: Result Comment: Nega tive <20.0 Equivocal 20.1 - 24.9 Positive >or= 25.0 Performed By: #### C BC #### [facility] [address] [place] [address] Dr. Blanquita Farris tTG/DGP SCR Negative Normal Negative [facility] Comment on above: Performed By: #### C BC #### [facility] [address] [place] [address] Dr. Blanquita Farris INSULINon 03-16-2022 Insulin 43.0 uIU/mL Critically high 2.6-24.9 [facility] Comment on above: Performed By: #### I NSULIN #### [facility] [address] [place] [address] Dr. Blanquita Farris OCC BLD IMMUNO SCREENon 02-21 OCCULT BLOOD Negative Normal NEGATIVE [facility] Comment on above: Performed By: #### C BC #### [facility] [address] [place] [address] Dr. Blanquita Farris CBC AUTO DIFFon 03-15-2022 BASO # 0.0 103/ul Normal 0.0-0.1 [facility] Comment on above: Performed By: #### C BC #### [facility] [address] [place] [address] Dr. Blanquita Farris Basophils/100 WBC (Bld) 0.7 % Normal 0.2-2.0 [facility] Comment on above: Performed By: #### C BC #### [facility] [address] [place] [address] Dr. Blanquita Farris EO # 0.2 103/ul Normal 0.0-0.7 [facility] Comment on above: Performed By: #### C BC #### [facility] [address] [place] [address] Dr. Blanquita Farris Eosinophils/100 WBC (Bld) 2.7 % Normal 0.9-7.0 [facility] Comment on above: Performed By: #### C BC #### [facility] [address] [place] [address] Dr. Blanquita Farris Erythrocyte distribution width (RBC) [Ratio] 14.8 % Normal 11.0-15.0 [facility] Comment on above: Performed By: #### C BC #### [facility] [address] [place] [address] Dr. Blanquita Farris Hematocrit (Bld) [Volume fraction] 43.4 % Normal 36.0-48.0 [facility] Comment on above: Performed By: #### C BC #### [facility] [address] [place] [address] Dr. Blanquita Farris Hemoglobin (Bld) [Mass/Vol] 14.1 g/dL Normal 12.0-16.0 [facility] Comment on above: Performed By: #### C BC #### [facility] [address] [place] [address] Dr. Blanquita Farris IG # 0.03 10e3/ul Normal 0.00-0.03 [facility] Comment on above: Performed By: #### C BC #### [facility] [address] [place] [address] Dr. Blanquita Farris IG % 0.5 % Normal 0.0-0.5 [facility] Comment on above: Performed By: #### C BC #### [facility] [address] [place] [address] Dr. Blanquita Farris LYMPH # 1.1 103/ul Critically low 1.2-3.8 [facility] Comment on above: Performed By: #### C BC #### [facility] [address] [place] [address] Dr. Blanquita Farris Lymphocytes/100 WBC (Bld) 18.9 % Critically low 20.5-60.0 [facility] Comment on above: Performed By: #### C BC #### [facility] [address] [place] [address] Dr. Blanquita Farris MANUAL DIFF REQ NO Normal [facility] Comment on above: Performed By: #### C BC #### [facility] [address] [place] [address] Dr. Blanquita Farris MCH (RBC) [Entitic mass] 27.9 pg Normal 26.7-34.0 [facility] Comment on above: Performed By: #### C BC #### [facility] [address] [place] [address] Dr. Blanquita Farris MCHC (RBC) [Mass/Vol] 32.5 g/dL Normal 29.9-35.2 [facility] Comment on above: Performed By: #### C BC #### [facility] [address] [place] [address] Dr. Blanquita Farris MCV (RBC) [Entitic vol] 85.8 fL Normal 81.0-99.0 [facility] Comment on above: Performed By: #### C BC #### [facility] [address] [place] [address] Dr. Blanquita Farris MONO # 0.4 103/ul Normal 0.3-0.8 [facility] Comment on above: Performed By: #### C BC #### [facility] [address] [place] [address] Dr. Blanquita Farris Monocytes/100 WBC (Bld) 7.2 % Normal 1.7-12.0 [facility] Comment on above: Performed By: #### C BC #### [facility] [address] [place] [address] Dr. Blanquita Farris NEUT # 4.1 103/ul Normal 1.4-6.5 [facility] Comment on above: Performed By: #### C BC #### [facility] [address] [place] [address] Dr. Blanquita Farris Neutrophils/100 WBC (Bld) 70.0 % Normal 43.0-75.0 [facility] Comment on above: Performed By: #### C BC #### [facility] [address] [place] [address] Dr. Blanquita Farris Platelet mean volume (Bld) [Entitic vol] 10.4 fL Normal 9.5-13.5 [facility] Comment on above: Performed By: #### C BC #### [facility] [address] [place] [address] Dr. Blanquita Farris PLT 158 103/ul Normal 150-450 [facility] Comment on above: Performed By: #### C BC #### [facility] [address] [place] [address] Dr. Blanquita Farris RBC 5.06 106/ul Normal 4.20-5.40 [facility] Comment on above: Performed By: #### C BC #### [facility] [address] [place] [address] Dr. Blanquita Farris WBC 5.9 103/ul Normal 4.0-11.0 [facility] Comment on above: Performed By: #### C BC #### [facility] [address] [place] [address] Dr. Blanquita Farris FREE THYROXINE INDEX T7on FTI 4.00 Normal 1.30-4.50 [facility] Comment on above: Performed By: #### C BC #### [facility] [address] [place] [address] Dr. Blanquita Farris T3U 31.0 % Normal 30.0-39.0 [facility] Comment on above: Performed By: #### C BC #### [facility] [address] [place] [address] Dr. Blanquita Farris T4 [Mass/Vol] 12.90 ug/dL Normal 4.80-13.90 [facility] Comment on above: Performed By: #### C BC #### [facility] [address] [place] [address] Dr. Blanquita Farris GLYCOHEMOGLOBIN A1Con 2021 ADA RECOMMENDATION SEE BELOW Normal [facility] Comment on above: Result Comment: ADA RECOMMENDED LIMIT 4.0 - 6.0 ADA THERAPEUTIC TARGET < 7.0 ACTION SUGGESTED > 7.0 Performed By: #### A 1C #### [facility] [address] [place] [address] Dr. Blanquita Farris Glucose [Mass/Vol] 146 mg/dL Normal [facility] Comment on above: Performed By: #### A 1C #### [facility] [address] [place] [address] Dr. Blanquita Farris HbA1c (Bld) [Mass fraction] 6.7 % Critically high 4.5-6.2 [facility] Comment on above: Performed By: #### A 1C #### [facility] [address] [address] [address] Blanquita Farris IRONon 03-15-2022 Iron [Mass/Vol] 67.0 ug/dL Normal 50.0-170.0 [facility] Comment on above: Performed By: #### I KEON #### [facility] [address] [place] [address] Dr. Blanquita Farris LIPID PROFILEon 03-15-2022 CHOL-HDL RATIO NORM SEE BELOW Normal [facility] Comment on above: Result Comment: 3.3 - 4.4 LOW RISK 4.4 - 7.1 AVERAGE RISK 7.1 - 11.0 MODERATE RISK >11.0 HIGH RISK Performed By: #### C BC #### [facility] [address] [place] [address] Dr. Blanquita Farris Cholesterol [Mass/Vol] 137 mg/dL Normal <=200 [facility] Comment on above: Performed By: #### C BC #### [facility] [address] [place] [address] Dr. Blanquita Farris Cholesterol in HDL [Mass/Vol] 52 mg/dL Normal 40-60 [facility] Comment on above: Performed By: #### C BC #### [facility] [address] [address] [address] Blanquita Farris Cholesterol in LDL [Mass/Vol] 62.0 mg/dL Normal [facility] Comment on above: Performed By: #### C BC #### [facility] [address] [place] [address] Dr. Blanquita Farris Cholesterol.total/C holesterol in HDL [Mass ratio] 2.6 {ratio} Normal [facility] Comment on above: Performed By: #### C BC #### [facility] [address] [address] [address] Blanquita Farris HDL NORMAL > or = 60 mg/dl - LO W CARDIOVASCULAR RISK <40 mg/dl - HIGH CARDIOVASCULAR RISK Normal [facility] Comment on above: Performed By: #### C BC #### [facility] [address] [place] [address] Dr. Blanquita Farris LDL CALC NORMAL SEE BELOW Normal [facility] Comment on above: Result Comment: <100 mg/dl OPTIMAL 100 - 129 mg/dl NEAR OR ABOVE OPTIMAL 130 - 159 mg/dl BORDERLINE HIGH 160 - 189 mg/dl HIGH >190 mg/dl VERY HIGH Performed By: #### C BC #### [facility] [address] [place] [address] Dr. Blanquita Farris Triglyceride [Mass/Vol] 115 mg/dL Normal <=150 [facility] Comment on above: Performed By: #### C BC #### [facility] [address] [place] [address] Dr. Blanquita Farris VLDL CALC 23.0 mg/dL Normal [facility] Comment on above: Performed By: #### C BC #### [facility] [address] [place] [address] Dr. Blanquita Farris PROF 14(COMP METB)on 022 Albumin [Mass/Vol] 4.1 g/dL Normal 3.4-5.0 [facility] Comment on above: Performed By: #### C BC #### [facility] [address] [place] [address] Dr. Blanquita Farris Albumin/Globulin [Mass ratio] 1.0 {ratio} Normal [facility] Comment on above: Performed By: #### C BC #### [facility] [address] [place] [address] Dr. Blanquita Farris ALP [Catalytic activity/Vol] 94 U/L Normal 46-116 [facility] Comment on above: Performed By: #### C BC #### [facility] [address] [place] [address] Dr. Blanquita Farris ALT [Catalytic activity/Vol] 32 U/L Normal 14-59 [facility] Comment on above: Performed By: #### C BC #### [facility] [address] [address] [address] Blanquita Farris Anion gap [Moles/Vol] 8.8 mmol/L Normal [facility] Comment on above: Performed By: #### C BC #### [facility] [address] [address] [address] Blanquita Farris AST [Catalytic activity/Vol] 26 U/L Normal 15-37 [facility] Comment on above: Performed By: #### C BC #### [facility] [address] [address] [address] Blanquita Farris Bilirubin [Mass/Vol] 0.4 mg/dL Normal 0.2-1.0 [facility] Comment on above: Performed By: #### C BC #### [facility] [address] [place] [address] Dr. Blanquita Farris Calcium [Mass/Vol] 9.0 mg/dL Normal 8.5-10.1 [facility] Comment on above: Performed By: #### C BC #### [facility] [address] [address] [address] Blanquita Farris Chloride [Moles/Vol] 100 mmol/L Normal 98-107 [facility] Comment on above: Performed By: #### C BC #### [facility] [address] [address] [address] Blanquita Farris CO2 [Moles/Vol] 31.6 mmol/L Normal 21.0-32.0 [facility] Comment on above: Performed By: #### C BC #### [facility] [address] [address] [address] Blanquita Farris Creatinine [Mass/Vol] 0.87 mg/dL Normal 0.55-1.02 [facility] Comment on above: Performed By: #### C BC #### [facility] [address] [address] [address] Blanquita Farris EGFR-AF PRYDEINIG >60 Normal >=60 [facility] Comment on above: Performed By: #### C BC #### [facility] [address] [address] [address] Blanquita Farris EGFR-NON AF PRYDEINIG >60 Normal >=60 [facility] Comment on above: Performed By: #### C BC #### [facility] [address] [address] [address] Blanquita Farris Globulin (S) [Mass/Vol] 4.0 g/dL Normal [facility] Comment on above: Performed By: #### C BC #### [facility] [address] [address] [address] Blanquita Farris Glucose [Mass/Vol] 192 mg/dL Critically high 74-106 [facility] Comment on above: Performed By: #### C BC #### [facility] [address] [place] [address] Dr. Blanquita Farris Potassium [Moles/Vol] 3.4 mmol/L Critically low 3.5-5.1 [facility] Comment on above: Performed By: #### C BC #### [facility] [address] [place] [address] Dr. Blanquita Farris Protein [Mass/Vol] 8.1 g/dL Normal 6.4-8.2 [facility] Comment on above: Performed By: #### C BC #### [facility] [address] [place] [address] Dr. Blanquita Farris Sodium [Moles/Vol] 137 mmol/L Normal 136-145 [facility] Comment on above: Performed By: #### C BC #### [facility] [address] [place] [address] Dr. Blanquita Farris Urea nitrogen [Mass/Vol] 9.0 mg/dL Normal 7.0-18.0 [facility] Comment on above: Performed By: #### C BC #### [facility] [address] [place] [address] Dr. Blanquita Farris Urea nitrogen/Creatinine [Mass ratio] 10.3 mg/mg Normal [facility] Comment on above: Performed By: #### C BC #### [facility] [address] [address] [address] Blanquita Farris PROTIMEon 03-15-2022 INR Coag (PPP) [Relative time] 1.15 {INR} Normal [facility] Comment on above: Performed By: #### C BC #### [facility] [address] [place] [address] Dr. Blanquita Farris INR GUIDELINES SEE BELOW Normal [facility] Comment on above: Result Comment: SOLANGE RED INR: 2.0 - 3.0 CONDITIONS NOT LISTED BELOW 2.5 - 3.5 FOR PROSTHETIC HEART VALVE REPLACEMENT 2.5 - 3.5 RECURRENT THROMBOSIS Performed By: #### C BC #### [facility] [address] [place] [address] Dr. Blanquita Farris PT Coag (PPP) [Time] 12.3 s Critically high 9.0-11.6 [facility] Comment on above: Performed By: #### C BC #### [facility] [address] [place] [address] Dr. Blanquita Farris TSHon 03-15-2022 TSH 0.342 uIU/mL Critically low 0.358-3.740 [facility] Comment on above: Performed By: #### C BC #### [facility] [address] [place] [address] Dr. Blanquita Farris Progress Noteson 02-16-2022 [employer] Authentication Interface Message Text EMERGENCY TRIAGE, TREAT AND TRANSPORT (ET3) DOCUMENTATION OF TELEHEALTH VISIT Date / Time: 02/16/2022 / 6:00 AM Name: Renetta Barbosa : 1960 SSN: (Not on file) EMS Agency: [facility] [] Verbal consent obtained [] Implied [...] Completed by: Pedro Arechiga MD Normal [facility] US SINGLE QUAD RT UPPERon US [...] LEONEL MATA Date: 2021-11-25 17:56 Normal [facility] ACETONE SERUMon 05-17-2021 ACETONE Negative Normal NEGATIVE [facility] Comment on above: Performed By: #### A CETON #### [facility] [address] [place] [address] Dr. Blanquita Farris CBC W MANUAL DIFFon 05-17-20 21 ATYPICAL LYMPH # Normal [facility] Comment on above: Performed By: #### C BCMAN #### [facility] [address] [address] [address] Blanquita Farris ATYPICAL LYMPH % Normal [facility] Comment on above: Performed By: #### C BCMAN #### [facility] [address] [place] [address] Dr. Blanquita Farris BAND # Normal 0.0-0.3 [facility] Comment on above: Performed By: #### C BCMAN #### [facility] [address] [place] [address] Dr. Blanquita Farris BAND % Normal 0-5 [facility] Comment on above: Performed By: #### C BRIGETTE #### [facility] [address] [place] [address] Dr. Blanquita Farris BASOM # 0.00 103/ul Normal 0.00-0.10 [facility] Comment on above: Performed By: #### C BRIGETTE #### [facility] [address] [place] [address] Dr. Blanquita Farris BASOM % 0.0 % Critically low 0.2-2.0 [facility] Comment on above: Performed By: #### C BRIGETTE #### [facility] [address] [place] [address] Dr. Blanquita Farris BLAST # Normal [facility] Comment on above: Performed By: #### C BRIGETTE #### [facility] [address] [place] [address] Dr. Blanquita Farris BLAST % Normal [facility] Comment on above: Performed By: #### C BRIGETTE #### [facility] [address] [place] [address] Dr. Blanquita Farris CORRECTED WBC Normal 4.0-11.0 [facility] Comment on above: Performed By: #### C BRIGETTE #### [facility] [address] [place] [address] Dr. Blanquita Farris EOS # 0.00 103/ul Normal 0.00-0.70 [facility] Comment on above: Performed By: #### C BRIGETTE #### [facility] [address] [place] [address] Dr. Blanquita Farris EOS% 0.0 % Critically low 0.9-7.0 [facility] Comment on above: Performed By: #### C BRIGETTE #### [facility] [address] [place] [address] Dr. Blanquita Farris HCT 40.7 % Normal 36.0-48.0 [facility] Comment on above: Performed By: #### C BRIGETTE #### [facility] [address] [address] [address] Blanquita Farris HGB 12.9 g/dl Normal 12.0-16.0 [facility] Comment on above: Performed By: #### C BRIGETTE #### [facility] [address] [address] [address] Blanquita Farris LYMPHM # 0.63 103/ul Critically low 1.20-3.80 [facility] Comment on above: Performed By: #### C BRIGETTE #### [facility] [address] [address] [address] Blanquita Farris LYMPHM% 18.0 % Critically low 20.5-60.0 [facility] Comment on above: Performed By: #### C BRIGETTE #### [facility] [address] [place] [address] Dr. Blanquita Farris MCH 28.4 pg Normal 26.7-34.0 [facility] Comment on above: Performed By: #### C BRIGETTE #### [facility] [address] [place] [address] Dr. Blanquita Farris MCHC 31.7 g/dl Normal 29.9-35.2 [facility] Comment on above: Performed By: #### C BRIGETTE #### [facility] [address] [place] [address] Dr. Blanquita Farris MCV 89.5 fL Normal 81.0-99.0 [facility] Comment on above: Performed By: #### C BRIGETTE #### [facility] [address] [place] [address] Dr. Blanquita Farris METAMYELOCYTE # Normal [facility] Comment on above: Performed By: #### C BRIGETTE #### [facility] [address] [place] [address] Dr. Blanquita Farris METAMYELOCYTE % Normal [facility] Comment on above: Performed By: #### C BRIGETTE #### [facility] [address] [address] [address] Blanquita Farris MONOM# 0.14 103/ul Critically low 0.30-0.80 [facility] Comment on above: Performed By: #### C BRIGETTE #### [facility] [address] [place] [address] Dr. Blanquita Farris MONOM% 4.0 % Normal 1.7-12.0 [facility] Comment on above: Performed By: #### C BRIGETTE #### [facility] [address] [place] [address] Dr. Blanquita Farris MPV 12.1 fL Normal 9.5-13.5 [facility] Comment on above: Performed By: #### C BRIGETTE #### [facility] [address] [place] [address] Dr. Blanquita Farris MYELOCYTE # Normal [facility] Comment on above: Performed By: #### C BRIGETTE #### [facility] [address] [place] [address] Dr. Blanquita Farris MYELOCYTE % Normal [facility] Comment on above: Performed By: #### C BRIGETTE #### [facility] [address] [place] [address] Dr. Blanquita Farris NRBC Normal [facility] Comment on above: Performed By: #### C BRIGETTE #### [facility] [address] [place] [address] Dr. Blanquita Farris PLT 121 103/ul Critically low 150-450 [facility] Comment on above: Performed By: #### C BRIGETTE #### [facility] [address] [place] [address] Dr. Blanquita Farris RBC 4.55 106/ul Normal 4.20-5.40 [facility] Comment on above: Performed By: #### C BRIGETTE #### [facility] [address] [place] [address] Dr. Blanquita Farris RDW 15.8 % Critically high 11.0-15.0 [facility] Comment on above: Performed By: #### C BRIGETTE #### [facility] [address] [place] [address] Dr. Blanquita Farris SEG # 2.73 103/ul Normal 1.40-6.50 [facility] Comment on above: Performed By: #### C BRIGETTE #### [facility] [address] [place], [place] [address] Dr. Blanquita Farris SEG % 78.0 % Critically high 43.0-75.0 [facility] Comment on above: Performed By: #### C BRIGETTE #### [facility] [address] [place], [place] [address] Dr. Blanquita Farris WBC 3.5 103/ul Critically low 4.0-11.0 [facility] Comment on above: Performed By: #### C BRIGETTE #### [facility] [address] [place], [place] [address] CSPINE WO CONon [...] KEYSHA NAIDU Date: 2021-05-17 09:10 Normal [facility] ER URINE PROFILEon 1 Bilirubin Ql (U) Negative Normal NEGATIVE [facility] Comment on above: Performed By: #### E RUR #### [facility] [address] [place] [address] Dr. Blanquita Farris Clarity (U) CLEAR Normal CLEAR [facility] Comment on above: Performed By: #### E RUR #### [facility] [address] [place] [address] Dr. Blanquita Farris Color (U) LT. YELLOW Normal YELLOW [facility] Comment on above: Performed By: #### E RUR #### [facility] [address] [place] [address] Dr. Blanquita RUTHERFORD A micrscopic examination will be performed if indicated. Normal [facility] Comment on above: Performed By: #### E RUR #### [facility] [address] [place] [address] Dr. Blanquita Farris Glucose Ql (U) 100 mg/dl Abnormal NEGATIVE [facility] Comment on above: Performed By: #### E RUR #### [facility] [address] [place] [address] Dr. Blanquita Farris Hemoglobin Ql (U) Negative Normal NEGATIVE [facility] Comment on above: Performed By: #### E RUR #### [facility] [address] [place] [address] Dr. Blanquita Farris Ketones Ql (U) Negative Normal NEGATIVE [facility] Comment on above: Performed By: #### E RUR #### [facility] [address] [place] [address] Dr. Blanquita Farris LEUKOCYTES Negative Normal NEGATIVE [facility] Comment on above: Performed By: #### E RUR #### [facility] [address] [place] [address] Dr. Blanquita Farris Nitrite Ql (U) Negative Normal NEGATIVE [facility] Comment on above: Performed By: #### E RUR #### [facility] [address] [place] [address] Dr. Blanquita Farris pH (U) 7.0 [pH] Normal 5-9 [facility] Comment on above: Performed By: #### E RUR #### [facility] [address] [place] [address] Dr. Blanquita Farris SPEC GRAVITY 1.015 Normal 1.005-<=1.025 [facility] Comment on above: Performed By: #### E RUR #### [facility] [address] [place] [address] Dr. Blanquita Farris UA PROTEIN Negative Normal NEGATIVE/ TRACE [facility] Comment on above: Performed By: #### E RUR #### [facility] [address] [place] [address] Dr. Blanquita Farris UR MICRO IND NOT INDICATED Normal [facility] Comment on above: Performed By: #### E RUR #### [facility] [address] [place] [address] Dr. Blanquita Farris Urobilinogen Qn (U) 0.2 {Chevy'U}/dL Normal 0.2 - 1. 0 [facility] Comment on above: Performed By: #### E RUR #### [facility] [address] [place] [address] Dr. Blanquita Farris POINT OF CARE GLUCOSEon 04-23 Glucose [Mass/Vol] 234 mg/dL Critically high 74-106 [facility] Comment on above: Performed By: #### P OCGLUC #### [facility] [address] [place] [address] Dr. Blanquita Farris PROF 14(COMP METB)on 021 Albumin [Mass/Vol] 3.5 g/dL Normal 3.5-5.0 [facility] Comment on above: Performed By: #### C MP #### [facility] [address] [place] [address] Dr. Blanquita Farris Albumin/Globulin [Mass ratio] 0.9 {ratio} Normal [facility] Comment on above: Performed By: #### C MP #### [facility] [address] [place] [address] Dr. Blanquita Farris ALP [Catalytic activity/Vol] 73 U/L Normal 38-126 [facility] Comment on above: Performed By: #### C MP #### [facility] [address] [place] [address] Dr. Blanquita Farris ALT [Catalytic activity/Vol] 39 U/L Normal 9-52 [facility] Comment on above: Performed By: #### C MP #### [facility] [address] [address] [address] Blanquita Farris Anion gap [Moles/Vol] 12.9 mmol/L Normal [facility] Comment on above: Performed By: #### C MP #### [facility] [address] [address] [address] Blanquita Farris AST [Catalytic activity/Vol] 33 U/L Normal 14-36 [facility] Comment on above: Performed By: #### C MP #### [facility] [address] [place] [address] Dr. Blanquita Farris Bilirubin [Mass/Vol] 0.3 mg/dL Normal 0.2-1.3 [facility] Comment on above: Performed By: #### C MP #### [facility] [address] [place] [address] Dr. Blanquita Farris Calcium [Mass/Vol] 8.9 mg/dL Normal 8.4-10.2 [facility] Comment on above: Performed By: #### C MP #### [facility] [address] [place] [address] Dr. Blanquita Farris Chloride [Moles/Vol] 105 mmol/L Normal 98-107 [facility] Comment on above: Performed By: #### C MP #### [facility] [address] [place] [address] Dr. Blanquita Farris CO2 [Moles/Vol] 28.3 mmol/L Normal 22.0-30.0 [facility] Comment on above: Performed By: #### C MP #### [facility] [address] [place] [address] Dr. Blanquita Farris Creatinine [Mass/Vol] 0.75 mg/dL Normal 0.52-1.04 [facility] Comment on above: Performed By: #### C MP #### [facility] [address] [place] [address] Dr. Blanquita Farris EGFR-AF PRYDEINIG >60 Normal >=60 [facility] Comment on above: Performed By: #### C MP #### [facility] [address] [address] [address] Blanquita Farris EGFR-NON AF PRYDEINIG >60 Normal >=60 [facility] Comment on above: Performed By: #### C MP #### [facility] [address] [address] [address] Blanquita Farris Globulin (S) [Mass/Vol] 3.8 g/dL Normal [facility] Comment on above: Performed By: #### C MP #### [facility] [address] [address] [address] Blanquita Farris Glucose [Mass/Vol] 173 mg/dL Critically high 74-106 T [facility] Comment on above: Performed By: #### C MP #### [facility] [address] [address] [address] Blanquita Farris Potassium [Moles/Vol] 3.2 mmol/L Critically low 3.4-5.0 [facility] Comment on above: Performed By: #### C MP #### [facility] [address] [address] [address] Blanquita Farris Protein [Mass/Vol] 7.3 g/dL Normal 6.1-8.2 [facility] Comment on above: Performed By: #### C MP #### [facility] [address] [address] [address] Blanquita Farris Sodium [Moles/Vol] 143 mmol/L Normal 137-145 [facility] Comment on above: Performed By: #### C MP #### [facility] [address] [address] [address] Blanquita Farris Urea nitrogen [Mass/Vol] 11.0 mg/dL Normal 7.0-17.0 [facility] Comment on above: Performed By: #### C MP #### [facility] [address] [address] [address] Blanquita Farris Urea nitrogen/Creatinine [Mass ratio] 14.7 mg/mg Normal [facility] Comment on above: Performed By: #### C MP #### [facility] [address] [address] [address] Blanquita Farris DIGITAL MAMMOGRAM SCREENING BILATERALon 11-22-2018 DIGITAL MAMMOGRAM SCREENING BILATERAL [facility] Department of Radiology [address] [place] [id number] ======== Patient Name: RENETTA HERNANDEZ : 1960 Sex: F Age: Race: White Pt. Location: [facility] Patient Status: D Ordered Date: 10/11/2018 3:20:00 PM Completed Date: 11/22/2018 12:09 PM Requesting Provider: DES GYLNN Attending Provider: DES GLYNN Report Copy To: Signs & Symptoms: Z12.31 Encntr screen mammogram for malignant neoplasm of breast I10 History: Merna Previous study [facility] 07/16/17 Comments: , Additional imaging, if necessary?: [...] recommended. Electronically signed by:Summer Cage. Transcribed by: [email or web address], User Resident: Electronically Signed by: SUMMER CAGE @ 11/24/2018 03:21 PM Normal [facility] Comment on above: Order Comment: , Add itional imaging, if necessary?: Y , Additional imaging, if necessary?: Y , , , Ordering Provider - DES GLYNN CNP , *VAGINITIS DNA PROBEon 10-11 *VAGINITIS DNA PROBE Clinical Report: (D) Specimen: GENITAL Collected: 10/11/2018 14:45 Status: Final Last Updated: 10/11/2018 19:16 MARQUITA (Final) Negative JUAN (Final) Negative TRICH (Final) Negative Normal [facility] Comment on above: Performed By: #### 5 6101 #### [facility] [address] [place] [address], [facility] FREE T4on 09-20-2018 Free T4 [Mass/Vol] 0.93 ng/dL Normal 0.71-1.85 [facility] Comment on above: Performed By: #### 3 1522, 68215, 45542, 98233 #### [facility] [address] [place] [address], [facility] HEMOGLOBIN A1Con 09-20-2018 HbA1c (Bld) [Mass fraction] 269 mg/dL High 70-126 [facility] Comment on above: Performed By: #### 4 6447 #### [facility] [address] [place] [address], [facility] HbA1c (Bld) [Mass fraction] 11.0 % High 4.0-6.0 [facility] Comment on above: Performed By: #### 4 6447 #### [facility] [address] [place] [address], [facility] LIPID PROFILEon 09-20-2018 Cholesterol [Mass/Vol] 164 mg/dL Normal 120-200 [facility] Comment on above: Result Comment: CHOL ESTEROL REFERENCE RANGE: 20 YEARS AND OLDER CARDIOVASCULAR RISK Less than 200 mg/dl Low Risk 200 to 239 mg/dl Borderline Risk 240 mg/dl and greater High Risk Performed By: #### 3 1522, 87031, 99162, 20733 #### [facility] [address] [facility] [place] [address], [facility] Cholesterol in HDL [Mass/Vol] 30 mg/dL Normal 23-92 [facility] Comment on above: Result Comment: Slig ht variation in normal range could be due to gender and/or age. HDL CHOLESTEROL REFERENCE RANGE: 20 years and older Cardiovascular Risk > or =60 mg/dL Desirable 40 TO 59 mg/dL Low Risk <40 mg/dL High Risk Performed By: #### 3 1522, 89361, 14785, 77481 #### [facility] [address] [place] [address], [facility] Cholesterol in LDL [Mass/Vol] 91 mg/dL Normal 0-130 [facility] Comment on above: Result Comment: LDL IS A CALCULATION LDL IS ONLY VALID IF THE TRIG IS LESS THAN 400. Performed By: #### 3 1522, 70526, 72826, 53271 #### [facility] [address] [place] [address], [place] Cholesterol.total/C holesterol in HDL [Mass ratio] 5.5 {ratio} High .0-4.5 [facility] Comment on above: Performed By: #### 3 1522, 19985, 92703, 68205 #### [facility] [address] [place] [address], [facility] NON-HDL CHOLESTEROL 134 mg/dL Normal [facility] Comment on above: Performed By: #### 3 1522, 42382, 58011, 10208 #### [facility] [address] [place] [address], [facility] Triglyceride [Mass/Vol] 215 mg/dL High 40-149 [facility] Comment on above: Result Comment: TRIG LYCERIDE REFERENCE RANGE: 20 YEARS AND OLDER CARDIOVASCULAR RISK LESS THAN 150 mg/dl LOW RISK 150 TO 199 mg/dl BORDERLINE RISK 200 mg/dl AND GREATER HIGH RISK Performed By: #### 3 1522, 90781, 37954, 50934 #### [facility] [address] [place] [address], [facility] VLDL CHOL 43 mg/dL High 0-40 [facility] Comment on above: Performed By: #### 3 1522, 40237, 34939, 53802 #### [facility] [address] [place] [address], [facility] MICROALBUMIN URINE RANDOMon 09-20-2018 Creatinine [Mass/Vol] 148.0 mg/dL Normal [facility] Comment on above: Result Comment: Ther e are no established reference values for random urine specimens Performed By: #### 3 0067 #### [facility] [address] [place] [address], [facility] MICROALBUMIN <1.0 Normal [facility] Comment on above: Performed By: #### 3 0067 #### [facility] [address] [place] [address], [place] MICROALBUMIN/CREATI NINE RATIO 'UNABLE TO CALC Normal 0.0-30.0 [facility] Comment on above: Performed By: #### 3 0067 #### [facility] [address] [facility] [place] [address], [facility] TSH3on 09-20-2018 TSH 3RD GENERATION 1.53 uIU/mL Normal 0.34-5.60 [facility] Comment on above: Performed By: #### 3 1522, 04527, 58396, 53662 #### [facility] [address] [facility] [place] [address], [facility] VITAMIN D 25-HYDROXYon 09-20 VITAMIN D 25-OH 33.8 ng/mL Normal 30.0-80.0 [facility] Comment on above: Result Comment: >80. 0 Toxicity possible Performed By: #### 3 1522, 95786, 98640, 37798 #### [facility] [address] [place] [address], [facility] US HEPATIC ECHOGRAMon 2018 US HEPATIC ECHOGRAM [facility] Department of Radiology [address] [place] [id number] ======== Patient Name: RENETTA HERNANDEZ : 1960 Sex: F Age: Race: White Pt. Location: [facility] Patient Status: O Ordered Date: [...] signed by:Russell De La Rosa. Transcribed by: [id number], User Resident: Electronically Signed by: RUSSELL DE LA ROSA @ 08/22/2018 12:53 PM Normal [facility] Comment on above: Order Comment: , , = ========= , Ordering Provider - ANGELIQUE BENNETT MD , US ABDOMINAL FOR ASCITES JIMENEZ ITEDon 06-28-2018 US ABDOMINAL FOR ASCITES LIMITED [facility] Department of Radiology [address] [place] [id number] ======== Patient Name: RENETTA HERNANDEZ : 1960 Sex: F Age: Race: White Pt. Location: [facility] Patient Status: O Ordered Date: 06/19/2018 3:35:00 PM Completed Date: 06/28/2018 11:18 AM Requesting Provider: ANGELIQUE BENNETT Attending Provider: ANGELIQUE BENNETT Report Copy To: YUE CHAPMANA Signs & Symptoms: K74.60 Unspecified cirrhosis of liver I10 History: Merna no show 06/28/18 10am Comments: , , [...] signed by:Russell De La Rosa. Transcribed by: [email or web address], User Resident: LAST FRANCO Electronically Signed by: RUSSELL DE LA ROSA @ 06/28/2018 12:53 PM I personally read this/these film(s) with this resident Normal [facility] Comment on above: Order Comment: , , = ========= , Ordering Provider - ANGELIQUE BENNETT MD , COMP METABOLIC PANELon 06-19 Albumin [Mass/Vol] 4.1 g/dL Normal 3.5-5.7 [facility] Comment on above: Performed By: #### 0 0121 #### [facility] [address] [place] [address], [place] ALKALINE PHOSPH 67 IU/L Normal 34-104 [facility] Comment on above: Performed By: #### 0 0121 #### [facility] [address] [place] [address], [place] ALT [Catalytic activity/Vol] 21 U/L Normal 7-52 [facility] Comment on above: Performed By: #### 0 0121 #### [facility] [address] [place] [address], [place] AST [Catalytic activity/Vol] 22 U/L Normal 13-39 [facility] [facility] Comment on above: Performed By: #### 0 [id number] #### [facility] [address] [place] [address], [place] Bilirubin [Mass/Vol] 0.5 mg/dL Normal 0.3-1.0 [facility] Comment on above: Performed By: #### 0 [id number] #### [facility] [address] [place] [address], [place] Calcium [Mass/Vol] 9.7 mg/dL Normal 8.6-10.3 [facility] Comment on above: Performed By: #### 0 [id number] #### [facility] [address] [place] [address], [place] Chloride [Moles/Vol] 103 mmol/L Normal 98-107 [facility] Comment on above: Performed By: #### 0 [id number] #### [facility] [address] [place] [address], [place] CO2 [Moles/Vol] 28 mmol/L Normal 21-31 [facility] Comment on above: Performed By: #### 0 [id number] #### [facility] [address] [place] [address], [place] Creatinine [Mass/Vol] 0.89 mg/dL Normal 0.60-1.20 [facility] Comment on above: Performed By: #### 0 [id number] #### [facility] [address] [place] [address], [place] GFR/1.73 sq M predicted among blacks MDRD (S/P/Bld) [Vol rate/Area] mL/min/{1.73_m2} Normal >60 [facility] Comment on above: Performed By: #### 0 [id number] #### [facility] [address] [place] [address], [place] GFR/1.73 sq M predicted among non-blacks MDRD (S/P/Bld) [Vol rate/Area] mL/min/{1.73_m2} Normal >60 [facility] Comment on above: Performed By: #### 0 [id number] #### [facility] [address] [place] [address], [place] Glucose [Mass/Vol] 175 mg/dL High 70-100 [facility] Comment on above: Performed By: #### 0 0121 #### [facility] [address] [place] [address], [place] Potassium [Moles/Vol] 3.8 mmol/L Normal 3.5-5.1 [facility] Comment on above: Performed By: #### 0 0121 #### [facility] [address] [place] [address], [place] Protein [Mass/Vol] 7.5 g/dL Normal 6.0-8.3 [facility] Comment on above: Performed By: #### 0 0121 #### [facility] [address] [place] [address], [place] Sodium [Moles/Vol] 139 mmol/L Normal 136-145 [facility] Comment on above: Performed By: #### 0 0121 #### [facility] [address] [place] [address], [place] Urea nitrogen [Mass/Vol] 14 mg/dL Normal 7-25 [facility] Comment on above: Performed By: #### 0 [id number] #### [facility] [address] [place] [address], [facility] PROTHROMBIN TIMEon INR Coag (PPP) [Relative time] 1.17 {INR} High 0.91-1.16 [facility] Comment on above: Result Comment: ACCC [...] 1995;[id number]. Performed By: #### [id number] #### [facility] [address] [place] [address], [facility] PT Coag (PPP) [Time] 14.9 s High 12.3-14.8 [facility] Comment on above: Result Comment: ALL RESULTS MUST BE INTERPRETED WITH RESPECT TO BLOOD DRAWING ARTIFACT OR DILUTION ERROR OF ANTICOAGULANT AT THE TIME OF SAMPLING. Performed By: #### 5 [id number] #### [facility] [address] [place] [address], [facility] Vital Signs Date Time Vital Sign Value Performing Clinician Facility 03-05-2024 14:30-0400 Body height 157.5 cm Ze Solis MD Work Phone: [facility] 03-05-2024 14:30-0400 Body mass index (BMI) [Ratio] 35.12 kg/m2 Ze Solis MD Work Phone: [facility] 03-05-2024 14:30-0400 Body weight 87.09 kg Ze Solis MD Work Phone: [facility] 03-05-2024 14:30-0400 Diastolic blood pressure 72 mm[Hg] Ze Solis MD Work Phone: [facility] 03-05-2024 14:30-0400 Heart rate 77 /min Ze Solis MD Work Phone: [facility] 03-05-2024 14:30-0400 Respiratory rate 18 /min Ze Solis MD Work Phone: [facility] 03-05-2024 14:30-0400 Systolic blood pressure 126 mm[Hg] Ze Solis MD Work Phone: [facility] 02-29-2024 09:25-0400 Blood Pressure Location NGA JUANITO [facility] 02-29-2024 09:25-0400 Diastolic blood pressure 87 mm[Hg] NGA JUANITO [facility] 02-29-2024 09:25-0400 Heart rate 87 /min NGA JUANITO [facility] 02-29-2024 09:25-0400 Systolic blood pressure 150 mm[Hg] NGA JUANITO [facility] 01-02-2024 11:52-0400 Blood Pressure Location NGA JUANITO [facility] 01-02-2024 11:52-0400 Diastolic blood pressure 82 mm[Hg] NGA JUANITO [facility] 01-02-2024 11:52-0400 Heart rate 78 /min NGA JUANITO [facility] 01-02-2024 11:52-0400 Systolic blood pressure 130 mm[Hg] NGA JUANITO [facility] 12-05-2023 11:55-0400 Diastolic blood pressure 54 mm[Hg] NGA JUANITO [facility] 12-05-2023 11:55-0400 Mean blood pressure 77 mm[Hg] NGA JUANITO [facility] 12-05-2023 11:55-0400 Systolic blood pressure 122 mm[Hg] NGA JUANITO [facility] 12-05-2023 11:44-0400 Blood Pressure Location NGA JUANITO [facility] 12-05-2023 11:44-0400 Diastolic blood pressure 107 mm[Hg] NGA JUANITO [facility] 12-05-2023 11:44-0400 Heart rate 95 /min NGA JUANITO [facility] 12-05-2023 11:44-0400 Systolic blood pressure 128 mm[Hg] NGA JUANITO [facility] 11-28-2023 11:43-0400 Blood Pressure Location NGA JUANITO [facility] 11-28-2023 11:43-0400 Diastolic blood pressure 67 mm[Hg] NGA JUANITO [facility] 11-28-2023 11:43-0400 Heart rate 95 /min NGA JUANITO [facility] 11-28-2023 11:43-0400 Systolic blood pressure 148 mm[Hg] NGA JUANITO [facility] 11-21-2023 11:37-0400 Blood Pressure Location NGA JUANITO [facility] 11-21-2023 11:37-0400 Body temperature 97.88 [degF] NGA JUANITO [facility] 11-21-2023 11:37-0400 Diastolic blood pressure 11 mm[Hg] NGA JUANITO [facility] 11-21-2023 11:37-0400 Heart rate 74 /min NGA JUANITO [facility] 11-21-2023 11:37-0400 Respiratory rate 15 /min NGA JUANITO [facility] 11-21-2023 11:37-0400 Systolic blood pressure 131 mm[Hg] NGA JUANITO [facility] 11-14-2023 11:36-0400 Blood Pressure Location NGA JUANITO [facility] 11-14-2023 11:36-0400 Body temperature 97.7 [degF] NGA JUANITO [facility] 11-14-2023 11:36-0400 Diastolic blood pressure 88 mm[Hg] NGA WILKINS [facility] 11-14-2023 11:36-0400 Heart rate 78 /min NGA WILKINS [facility] 11-14-2023 11:36-0400 Systolic blood pressure 150 mm[Hg] NGA WILKINS [facility] 06-23-2023 13:50-0500 Body height 157.5 cm Andre Funes MD Work Phone: [facility] 06-23-2023 13:50-0500 Body temperature 97.59 [degF] Andre Funes MD Work Phone: [facility] 06-23-2023 13:50-0500 Body weight 91.1 kg Andre Funes MD Work Phone: [facility] 06-23-2023 13:50-0500 Diastolic blood pressure 93 mm[Hg] Andre Funes MD Work Phone: [facility] 06-23-2023 13:50-0500 Heart rate 107 /min Andre Funes MD Work Phone: [facility] 06-23-2023 13:50-0500 Respiratory rate 18 /min Andre Funes MD Work Phone: [facility] 06-23-2023 13:50-0500 SaO2% (BldA) [Mass fraction] 94 % Andre Funes MD Work Phone: [facility] 06-23-2023 13:50-0500 Systolic blood pressure 149 mm[Hg] Andre Funes MD Work Phone: [facility] 05-03-2023 10:34-0500 Blood Pressure Location NGA WILKINS [facility] 05-03-2023 10:34-0500 Diastolic blood pressure 88 mm[Hg] NGA JUANITO [facility] 05-03-2023 10:34-0500 Heart rate 91 /min NGA WILKINS [facility] 05-03-2023 10:34-0500 Respiratory rate 16 /min NGA WILKINS [facility] 05-03-2023 10:34-0500 Systolic blood pressure 138 mm[Hg] NGA WILKINS [facility] 04-05-2023 14:15-0500 Body height 157.48 cm Rodger Chavez Other [facility] Other 04-05-2023 14:15-0500 Body mass index (BMI) [Ratio] 37.31 kg/m2 Rodger Chavez Other [facility] Other 04-05-2023 14:15-0500 Body weight 92.53 kg Rodger Chavez Other [facility] Other 04-05-2023 14:15-0500 Diastolic blood pressure 82 mm[Hg] Rodger Chavez Other [facility] Other 04-05-2023 14:15-0500 Systolic blood pressure 143 mm[Hg] Rodger Chavez Other [facility] Other 09-28-2022 14:45-0400 Body height 157.48 cm Rodger Chavez Other [facility] Other 09-28-2022 14:45-0400 Body mass index (BMI) [Ratio] 37.86 kg/m2 Rodger Chavez Other [facility] Other 09-28-2022 14:45-0400 Body weight 93.9 kg Rodger Chavez Other [facility] Other 09-28-2022 14:45-0400 Diastolic blood pressure 77 mm[Hg] Rodger Chavez Other [facility] Other 09-28-2022 14:45-0400 SaO2% (BldA) [Mass fraction] 95 % Rodger Chavez Other [facility] Other 09-28-2022 14:45-0400 Systolic blood pressure 156 mm[Hg] Rodger Chavez Other [facility] Other 06-25-2022 13:45-0500 Diastolic blood pressure 82 mm[Hg] Andre Funes MD Work Phone: [facility] 06-25-2022 13:45-0500 Systolic blood pressure 152 mm[Hg] Andre Funes MD Work Phone: [facility] 06-25-2022 13:44-0500 Body height 157.5 cm Andre Funes MD Work Phone: [facility] 06-25-2022 13:44-0500 Body temperature 97.5 [degF] Andre Funes MD Work Phone: [facility] 06-25-2022 13:44-0500 Body weight 95.17 kg Andre Funes MD Work Phone: [facility] 06-25-2022 13:44-0500 Heart rate 88 /min Andre Funes MD Work Phone: [facility] 06-25-2022 13:44-0500 Respiratory rate 16 /min Andre Funes MD Work Phone: [facility] 06-25-2022 13:44-0500 SaO2% (BldA) [Mass fraction] 97 % Andre Funes MD Work Phone: [facility] 06-22-2022 14:30-0500 Body height 157.48 cm Rodger Chavez Other [facility] Other 06-22-2022 14:30-0500 Body mass index (BMI) [Ratio] 37.86 kg/m2 Rodger Chavez Other [facility] Other 06-22-2022 14:30-0500 Body weight 93.9 kg Rodger Chavez Other [facility] Other 06-22-2022 14:30-0500 Diastolic blood pressure 80 mm[Hg] Rodger Chavez Other [facility] Other 06-22-2022 14:30-0500 Systolic blood pressure 130 mm[Hg] Rodger Chavez Other [facility] Other 03-04-2022 15:45-0400 Body height 157.48 cm Rodger Chavez Other [facility] Other 03-04-2022 15:45-0400 Body mass index (BMI) [Ratio] 38.59 kg/m2 Rodger Chavez Other [facility] Other 03-04-2022 15:45-0400 Body weight 95.71 kg Rodger Chavez Other [facility] [employer] Other 12-17-2021 13:02-0400 Body height 157.5 cm Andre Funes MD Work Phone: [facility] 12-17-2021 13:02-0400 Body temperature 97.59 [degF] Andre Funes MD Work Phone: [facility] 12-17-2021 13:02-0400 Body weight 97.98 kg Andre Funes MD Work Phone: [facility] 12-17-2021 13:02-0400 Diastolic blood pressure 83 mm[Hg] Andre Funes MD Work Phone: [facility] 12-17-2021 13:02-0400 Heart rate 92 /min Andre Funes MD Work Phone: [facility] 12-17-2021 13:02-0400 Respiratory rate 16 /min Andre Funes MD Work Phone: [facility] 12-17-2021 13:02-0400 SaO2% (BldA) [Mass fraction] 95 % Andre Funes MD Work Phone: [facility] 12-17-2021 13:02-0400 Systolic blood pressure 145 mm[Hg] Andre Funes MD Work Phone: [facility] Encounters Encounter Date Encounter Type Care Provider Facility Start: 04-23-2024 End: 04-23-2024 Telephone encounter Luz Hamilton RN Hematology/Oncology Comment on above: [place] Start: 04-04-2024 End: 04-04-2024 Bamboo flowsheet Jasmine Urban FACILITIES ASSISTANT-S Work Phone: [facility] Start: 04-04-2024 End: 04-04-2024 Bamboo flowsheet Jasmine Urban FACILITIES ASSISTANT-S Work Phone: [facility] Start: 04-04-2024 End: 04-04-2024 ambulatory JASMINE URBAN Not Available Comment on above: SAMUEL (generalized anx iety disorder) ([facility]) Start: 03-05-2024 End: 03-05-2024 Office outpatient visit 40 minutes Ze Solis MD Work Phone: [facility] Comment on above: Type 2 diabetes mauri itus with hyperglycemia, with long-term current use of insulin ([facility]) (Primary Dx); Insulin long-term use ([facility]); Vitamin D deficiency; Encounter for dietary consultation; High risk medication use; Primary hypertension ([facility]); Hypoglycemia; Class 2 severe obesity due to excess calories with serious comorbidity and body mass index (BMI) of 35.0 to 35.9 in adult ([facility]); Microalbuminuria; 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[facility]) Start: 03-05-2024 End: 03-05-2024 ambulatory ZE SOLIS Not Available Start: 03-01-2024 End: 03-01-2024 Bamboo Cognitive Codeheet Jasmine Peres Didion FACILITIES ASSISTANT-S Work Phone: [facility] Start: 03-01-2024 End: 03-01-2024 Bamboo Cognitive Codeheet Jasmine Peres Didion FACILITIES ASSISTANT-S Work Phone: [facility] Start: 03-01-2024 End: 03-01-2024 Social Work Jasmine Peres Didion FACILITIES ASSISTANT-S Work Phone: [facility] Comment on above: SAMUEL (generalized anx iety disorder) ([facility]) Start: 02-29-2024 End: 02-29-2024 ambulatory NGA WILKINS Facility:[facility] Start: 02-29-2024 End: 02-29-2024 Patient encounter procedure NGA WILKINS [facility] Start: 02-14-2024 End: 02-14-2024 ambulatory MARY MARQUES Not Available Start: 02-07-2024 End: 02-07-2024 ambulatory JASMINE C DIDION Not Available Start: 01-30-2024 End: 01-30-2024 ambulatory RAJAT AGUILAR Not Available Start: 01-10-2024 End: 01-10-2024 ambulatory JASMINE C DIDION Not Available Start: 01-02-2024 End: 01-02-2024 ambulatory NGA E JUANITO Facility:[facility] Start: 01-02-2024 End: 01-02-2024 Patient encounter procedure NGA E JUANITO [facility] Start: 12-19-2023 ambulatory NGA E JUANITO Facili ty:[facility] Start: 12-15-2023 End: 12-15-2023 ambulatory JASMINE C DIDION Not Available Start: 12-05-2023 End: 12-05-2023 ambulatory NGA E JUANITO Facility:[facility] Start: 12-05-2023 End: 12-05-2023 Patient encounter procedure NGA E JUANITO [facility] [place] [email or web address] Start: 11-28-2023 End: 11-28-2023 ambulatory NGA E JUANITO Facility:[facility] Start: 11-28-2023 End: 11-28-2023 Patient encounter procedure NGA E JUANITO [facility] [place] Start: 11-21-2023 End: 11-21-2023 ambulatory NGA E JUANITO Facility:[facility] Start: 11-21-2023 End: 11-21-2023 Patient encounter procedure NGA E JUANITO [facility] [place] Start: 11-16-2023 End: 11-16-2023 ambulatory RAJAT JEFF Not Available Start: 11-14-2023 End: 11-14-2023 ambulatory NGA E JUANITO Facility:[facility] Start: 11-14-2023 End: 11-14-2023 Patient encounter procedure NGA WILKINS [facility] [place] Start: 11-10-2023 End: 11-10-2023 ambulatory TAN BAGLEY Not Available Start: 11-08-2023 End: 11-08-2023 ambulatory JASMINE Peres DIDION Not Available Start: 11-07-2023 End: 11-07-2023 ambulatory NGA WILKINS Facility:[facility] Start: 11-07-2023 End: 11-07-2023 Patient encounter procedure NGA WILKINS [facility] [place] Start: 10-31-2023 End: 10-31-2023 ambulatory NGA WILKINS Facility:[facility] Start: 10-31-2023 End: 10-31-2023 Patient encounter procedure NGA WILKINS [facility] [place] [email or web address] Start: 10-20-2023 End: 10-20-2023 ambulatory JASMINE Peres DIDION Not Available Start: 10-13-2023 End: 10-13-2023 ambulatory RAJAT AGUILAR Not Available Start: 09-28-2023 End: 09-28-2023 ambulatory JASMINE Peres DIDION Not Available Start: 08-02-2023 End: 08-02-2023 ambulatory [facility] Start: 06-23-2023 End: 06-23-2023 Office outpatient visit 15 minutes Andre Funes MD Work Phone: Hematology/Oncology Comment on above: MENDEZ (nonalcoholic s teatohepatitis) (Primary Dx); 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); Thrombocytopenia due to hypersplenism; Thrombocytopenia (HCC); Diabetic gastroparesis (HCC) (HCC) Start: 06-23-2023 End: 06-23-2023 ambulatory ANDRE JASMINZACARIAS Facility:[facility] Start: 06-22-2023 End: 06-22-2023 ambulatory Soheila Delgado Other [facility] Other Start: 06-22-2023 Telephone encounter Soheila Delgado [facility] Start: 06-21-2023 End: 06-21-2023 ambulatory MAHAMED [facility] Start: 06-01-2023 End: 06-01-2023 ambulatory TJ J PRINTY Not Available Start: 05-24-2023 End: 05-24-2023 ambulatory TJ J PRINTY Not Available Start: 05-03-2023 End: 05-03-2023 ambulatory NGA WILKINS Facility:[facility] Start: 05-03-2023 End: 05-03-2023 Patient encounter procedure NGA WILKINS [facility] Start: 04-12-2023 End: 04-12-2023 ambulatory Rodger Chavez Other [facility] Other Start: 04-12-2023 Telephone encounter Rodger Hyde [facility] Start: 04-05-2023 End: 04-05-2023 ambulatory Rodger Chavez Other [facility] Other Start: 04-05-2023 Office outpatient vi sit 15 minutes Rodger Chavez [facility] Start: 10-19-2022 End: 10-20-2022 ambulatory SHAKIRA RONALDO Facility:[facility] Start: 10-15-2022 ambulatory SHAKIRA RONALDO Facility: [facility] Start: 10-06-2022 End: 10-06-2022 ambulatory SHAKIRA RONALDO Facility:[facility] Start: 09-28-2022 End: 09-28-2022 ambulatory Rodger Chavez Other [facility] Other Start: 09-28-2022 Office outpatient vi sit 15 minutes Rodger Chavez [facility] Start: 06-25-2022 End: 06-25-2022 Office outpatient visit 15 minutes Andre Funes MD Work Phone: Hematology/Oncology Comment on above: Cirrhosis of liver n ot due to alcohol (HCC) (Primary Dx); MENDEZ (nonalcoholic steatohepatitis); Thrombocytopenia due to hypersplenism Start: 06-22-2022 End: 06-22-2022 ambulatory Rodger Chavez Other [facility] Other Start: 06-22-2022 Office outpatient vi sit 15 minutes Rodger Chavez [facility] Start: 06-10-2022 End: 06-11-2022 ambulatory SHAKIRA HIGGINS Facility:[facility] Start: 05-22-2022 End: 05-22-2022 ambulatory SHAKIRA HIGGINS Facility:[facility] Start: 04-01-2022 End: 04-01-2022 ambulatory Rodger Chavez Other [facility] Other Start: 04-01-2022 Telephone encounter Rodger cabrales [facility] Start: 03-16-2022 End: 03-16-2022 ambulatory SHAKIRA HIGGINS Facility:[facility] Start: 03-15-2022 End: 03-16-[address] DOCTOR RAMOS Facility:[facility] Start: 03-04-2022 End: 03-04-2022 ambulatory Rodger Chavez Other [facility] Other Start: 03-04-2022 Office outpatient ne w 45 minutes Rodger Chavez [facility] Start: 02-16-2022 End: 03-01-2022 [...] End: 08-05-2020 Patient encounter procedure External Provider [facility] Start: 08-05-2020 Results Only External Provider Exter nal-NonCCF Procedures Date Procedure Procedure Detail Performing Clinician Start: 03-05-2024 Gluc bld gluc mntr dev cleared fda spec home use Ze Solis MD Work Phone: Start: 05-24-2023 Microscopic observation [Identifier] in Cervix by Cyto stain Jasmine Urban FACILITIES ASSISTANT-S Work Phone: Start: 05-20-2022 Mammography Jasmine Urban FACILITIES ASSISTANT-S Work Phone: Start: 12-10-2020 Adult depression screening assessment Andre Funes MD Work Phone: Start: 09-24-2020 Esophagogastroduodenoscopy NGA Gao Comment on above: with Right Hemorrhoidectomy Start: 08-05-2020 EXTERNAL LAB External Provider Start: 04-09-2020 Colonoscopy Jasmine Urban FACILITIES ASSISTANT-S Work Phone: Start: 04-09-2020 Colonoscopy NGA WILKINS Bilateral tubal ligation SAMMY WILKINS Bilateral tubal ligation SAMMY WILKINS Bile duct stone removal MILTON WILKINS Bile duct stone removal MILTON WILKINS section NGA MONTOYA Laparoscopic cholecystectomy NGA WILKINS Tonsillectomy and adenoidectomy NGA WILKINS Plan of Treatment Date Care Activity Detail Author Start: 04-09-2030 Screening for malignant neoplasm of colon [facility] Start: 05-24-2026 Screening for malignant neoplasm of cervix [facility] Start: 06-25-2025 DIABETES SCREEN DIABETES SCREEN [facility] Start: 12-17-2024 DIABETES SCREEN DIABETES SCREEN [facility] Start: 07-30-2024 End: 07-30-2024 Patient encounter procedure 07/30/2024 3:40 PM EDT Office Visit [facility] [address] [place] [address] Gi Arriaga NP [address] [place], [place] [facility] Start: 07-02-2024 End: 07-02-2024 Patient encounter procedure 07/02/2024 2:00 PM EST Office Visit [facility] [address] [place] [address] Ze Solis MD [address] [place] [address] [facility] Start: 06-28-2024 End: 06-28-2024 Follow-up encounter 06/28/2024 2:20 PM EST Visit (SP) Office Hematology/Oncology [address] [address] Andre Funes MD [address] [place] [address] 1 year follow up with lab the same day Hematology/Oncology Comment on above: 1 year follow up with lab the same day Start: 06-28-2024 End: 06-28-2024 Patient encounter procedure 06/28/2024 2:00 PM EST Office Visit [facility] [address] [place] [address] 1 year follow up with lab the same day [facility] Comment on above: 1 year follow up with lab the same day Start: 06-23-2024 End: 09-22-2024 [id number] [Mass/volume] in Serum or Plasma ALPHA FETOPROTEIN BL Lab Routine MENDEZ (nonalcoholic steatohepatitis) 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 Expected: 06/23/2024 (Approximate), Expires: 09/22/2024 [facility] Work Phone: Comment on above: Expected: 06/23/2024 (Approximate), Expi res: 09/22/2024 Start: 06-23-2024 End: 06-23-2024 CBC W Auto Differential panel - Blood CBC + DIFF Lab Routine MENDEZ (nonalcoholic steatohepatitis) 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 Expected: 06/23/2024 (Approximate), Expires: 06/23/2024 [facility] Work Phone: Comment on above: Expected: 06/23/2024 (Approximate), Expi res: 06/23/2024 Start: 06-23-2024 End: 06-23-2024 Cobalamin (Vitamin B12) [Mass/volume] in Serum or Plasma VITAMIN B12 BLOOD Lab Routine MENDEZ (nonalcoholic steatohepatitis) 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 Expected: 06/23/2024 (Approximate), Expires: 06/23/2024 [facility] Work Phone: Comment on above: Expected: 06/23/2024 (Approximate), Expi res: 06/23/2024 Start: 06-23-2024 End: 06-23-2024 Comprehensive metabolic 2000 panel - Serum or Plasma COMP METABOLIC PANEL Lab Routine MENDEZ (nonalcoholic steatohepatitis) 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 Expected: 06/23/2024 (Approximate), Expires: 06/23/2024 [facility] Work Phone: Comment on above: Expected: 06/23/2024 (Approximate), Expi res: 06/23/2024 Start: 06-23-2024 End: 06-23-2024 Ferritin [Mass/volume] in Serum or Plasma FERRITIN BLD Lab Routine MENDEZ (nonalcoholic steatohepatitis) 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 Expected: 06/23/2024 (Approximate), Expires: 06/23/2024 [facility] Work Phone: Comment on above: Expected: 06/23/2024 (Approximate), Expi res: 06/23/2024 Start: 06-23-2024 End: 06-23-2024 Folate [Mass/volume] in Serum or Plasma FOLATE SERUM Lab Routine MENDEZ (nonalcoholic steatohepatitis) 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 Expected: 06/23/2024 (Approximate), Expires: 06/23/2024 [facility] Work Phone: Comment on above: Expected: 06/23/2024 (Approximate), Expi res: 06/23/2024 Start: 06-23-2024 End: 06-23-2024 Iron and Iron binding capacity panel - Serum or Plasma IRON + TIBC Lab Routine MENDEZ (nonalcoholic steatohepatitis) 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 Expected: 06/23/2024 (Approximate), Expires: 06/23/2024 [facility] Work Phone: Comment on above: Expected: 06/23/2024 (Approximate), Expi res: 06/23/2024 Start: 05-29-2024 End: 05-29-2024 Patient encounter procedure 05/29/2024 2:45 PM EST Office Visit [facility] [address] [place] [address] Tj Dutton MD [address] [place] [address] [facility] Start: 05-28-2024 End: 05-28-2024 Patient encounter procedure 05/28/2024 2:40 PM EST Office Visit [facility] [address] [place] [address] Rajat Aguilar, DEHYDRATOR TENDER [address] [facility] [place] [address] [facility] Start: 05-08-2024 End: 05-08-2024 Social Work 05/08/2024 3:00 PM EST Social Work [facility] [address] [place] [id number] Jasmine Urban, FACILITIES ASSISTANT-S [address] [place] [address] [facility] Start: 04-04-2024 End: 04-04-2024 Social Work 04/04/2024 1:00 PM EST Social Work [facility] [address] [place] [phone] Jasmine Urban, FACILITIES ASSISTANT-S [address] [place] [address] [facility] Start: 03-05-2024 End: 03-05-2024 Patient encounter procedure 03/05/2024 1:50 PM EDT Office Visit [facility] [address] [place] [address] Ze Solis MD [address] [place] [address] [facility] Start: 03-01-2024 End: 03-01-2024 Social Work 03/01/2024 1:00 PM EDT Social Work [facility] [address] [place] [phone] Jasmine Urban, FACILITIES ASSISTANT-S [address] [place] [address] Arrived [facility] Comment on above: Arrived Start: 01-22-2024 Covid-19 Vaccine ( season) Covid-19 Vaccine () [facility] Start: 01-22-2024 Influenza vaccination Influenza Vaccine (#1) [facility] Start: 06-25-2023 End: 06-25-2023 CBC W Auto Differential panel - Blood CBC + DIFF Lab Routine 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 Expected: 06/25/2023 (Approximate), Expires: 06/25/2023 [facility] Work Phone: Comment on above: Expected: 06/25/2023 (Approximate), Expi res: 06/25/2023 Start: 06-25-2023 End: 06-25-2023 Cobalamin (Vitamin B12) [Mass/volume] in Serum or Plasma VITAMIN B12 BLOOD Lab Routine 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 Expected: 06/25/2023 (Approximate), Expires: 06/25/2023 [facility] Work Phone: Comment on above: Expected: 06/25/2023 (Approximate), Expi res: 06/25/2023 Start: 06-25-2023 End: 06-25-2023 Comprehensive metabolic 2000 panel - Serum or Plasma COMP METABOLIC PANEL Lab Routine 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 Expected: 06/25/2023 (Approximate), Expires: 06/25/2023 [facility] Work Phone: Comment on above: Expected: 06/25/2023 (Approximate), Expi res: 06/25/2023 Start: 06-25-2023 End: 07-25-2023 Dup-scan artl patrick abdl/pel/scrot&/rpr orgn com US DOPPLER COMPLETE Radiology Routine 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 Expected: 06/25/2023 (Approximate), Expires: 07/25/2023 [facility] Work Phone: Comment on above: Expected: 06/25/2023 (Approximate), Expi res: 07/25/2023 Start: 06-25-2023 End: 06-25-2023 Ferritin [Mass/volume] in Serum or Plasma FERRITIN BLD Lab Routine 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 Expected: 06/25/2023 (Approximate), Expires: 06/25/2023 [facility] Work Phone: Comment on above: Expected: 06/25/2023 (Approximate), Expi res: 06/25/2023 Start: 06-25-2023 End: 06-25-2023 Folate [Mass/volume] in Serum or Plasma FOLATE SERUM Lab Routine 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 Expected: 06/25/2023 (Approximate), Expires: 06/25/2023 [facility] Work Phone: Comment on above: Expected: 06/25/2023 (Approximate), Expi res: 06/25/2023 Start: 06-25-2023 End: 06-25-2023 Iron and Iron binding capacity panel - Serum or Plasma IRON + TIBC Lab Routine 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 Expected: 06/25/2023 (Approximate), Expires: 06/25/2023 [facility] Work Phone: Comment on above: Expected: 06/25/2023 (Approximate), Expi res: 06/25/2023 Start: 06-25-2023 End: 07-25-2023 US ABD LIVER VASCULAR US ABD LIVER VASCULAR Radiology Routine 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 Expected: 06/25/2023 (Approximate), Expires: 07/25/2023 [facility] Work Phone: Comment on above: Expected: 06/25/2023 (Approximate), Expi res: 07/25/2023 Start: 05-23-2023 Depression Assessment Depression Assessment [facility] Start: 05-20-2023 Screening for malignant neoplasm of breast Mammogram [facility] Start: 10-05-2023 Screening for malignant neoplasm of colon [facility] Start: 06-19-2022 End: 08-19-2022 [id number] [Mass/volume] in Serum or Plasma ALPHA FETOPROTEIN BL Lab Routine 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) MENDEZ (nonalcoholic steatohepatitis) Expected: 06/19/2022 (Approximate), Expires: 08/19/2022 [facility] Work Phone: Comment on above: Expected: 06/19/2022 (Approximate), Expi res: 08/19/2022 Start: 06-19-2022 End: 12-17-2022 CBC W Auto Differential panel - Blood CBC + DIFF Lab Routine 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) MENDEZ (nonalcoholic steatohepatitis) Expected: 06/19/2022 (Approximate), Expires: 12/17/2022 [facility] Work Phone: Comment on above: Expected: 06/19/2022 (Approximate), Expi res: 12/17/2022 Start: 06-19-2022 End: 12-17-2022 Cobalamin (Vitamin B12) [Mass/volume] in Serum or Plasma VITAMIN B12 BLOOD Lab Routine 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) MENDEZ (nonalcoholic steatohepatitis) Expected: 06/19/2022 (Approximate), Expires: 12/17/2022 [facility] Work Phone: Comment on above: Expected: 06/19/2022 (Approximate), Expi res: 12/17/2022 Start: 06-19-2022 End: 12-17-2022 Comprehensive metabolic 2000 panel - Serum or Plasma COMP METABOLIC PANEL Lab Routine 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) MENDEZ (nonalcoholic steatohepatitis) Expected: 06/19/2022 (Approximate), Expires: 12/17/2022 [facility] Work Phone: Comment on above: Expected: 06/19/2022 (Approximate), Expi res: 12/17/2022 Start: 06-19-2022 End: 12-17-2022 Ferritin [Mass/volume] in Serum or Plasma FERRITIN BLD Lab Routine 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) MENDEZ (nonalcoholic steatohepatitis) Expected: 06/19/2022 (Approximate), Expires: 12/17/2022 [facility] Work Phone: Comment on above: Expected: 06/19/2022 (Approximate), Expi res: 12/17/2022 Start: 06-19-2022 End: 12-17-2022 Folate [Mass/volume] in Serum or Plasma FOLATE SERUM Lab Routine 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) MENDEZ (nonalcoholic steatohepatitis) Expected: 06/19/2022 (Approximate), Expires: 12/17/2022 [facility] Work Phone: Comment on above: Expected: 06/19/2022 (Approximate), Expi res: 12/17/2022 Start: 06-19-2022 End: 12-17-2022 Iron and Iron binding capacity panel - Serum or Plasma IRON + TIBC Lab Routine 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) MENDEZ (nonalcoholic steatohepatitis) Expected: 06/19/2022 (Approximate), Expires: 12/17/2022 [facility] Work Phone: Comment on above: Expected: 06/19/2022 (Approximate), Expi res: 12/17/2022 Start: 06-19-2022 End: 01-16-2023 Us abdominal real time w/image limited US ABD RT UPPER QUADRANT Radiology Routine 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) MENDEZ (nonalcoholic steatohepatitis) Expected: 06/19/2022 (Approximate), Expires: 01/16/2023 [facility] Work Phone: Comment on above: Expected: 06/19/2022 (Approximate), Expi res: 01/16/2023 Start: 05-23-2022 DEPRESSION ASSESSMENT DEPRESSION ASSESSMENT [facility] Start: 01-21-2022 Influenza vaccination INFLUENZA (#1) [facility] Start: 12-10-2021 Adult depression screening assessment DEPRESSION SCREENING [facility] Start: 09-29-2021 COVID-19 VACCINE (4 - Booster for Pfizer series) COVID-19 VACCINE (4 - Booster for Pfizer series) [facility] Start: 01-22-2020 Influenza vaccination INFLUENZA (#1) [facility] Start: 2020 RSV Vaccine (1 - 1-dose 60+ series) RSV Vaccine (1 - 1-dose 60+ series) [facility] Start: 2020 RSV Vaccine (1 - Risk 60-74 years 1-dose series) RSV Vaccine (1 - Risk 60-74 years 1-dose series) [facility] Start: 11-07-2017 HEPATITIS B (2 of 3 - Risk 3-dose series) HEPATITIS B (2 of 3 - Risk 3-dose series) [facility] Start: 11-07-2017 Hepatitis B Vaccine (2 of 3 - Risk 3-dose series) Hepatitis B Vaccine (2 of 3 - Risk 3-dose series) [facility] Start: 01-19-2010 Screening for malignant neoplasm of colon [facility] Start: 01-19-2010 SHINGRIX VACCINE (1 of 2) SHINGRIX VACCINE (1 of 2) [facility] Start: 01-06-2010 PNEUMOCOCCAL (2 - PCV) PNEUMOCOCCAL (2 - PCV) [facility] Start: 01-06-2010 Pneumococcal vaccination Pneumococcal Vaccine (2 of 2 - PCV) [facility] Start: 01-19-2005 COLOGUARD (FIT-DNA) COLOGUARD (FIT-DNA) [facility] Start: 01-19-2005 Colonoscopy COLONOSCOPY [facility] Start: 01-19-2005 COLORECTAL CANCER SCREENING COLORECTAL CANCER SCREENING [facility] Start: 01-19-[address] COLONOGRAPHY [facility] Start: 01-19-2005 DIABETES SCREEN DIABETES SCREEN [facility] Start: 01-19-2005 FECAL OCCULT BLOOD FECAL OCCULT BLOOD [facility] Start: 01-19-2005 LIPID SCREEN LIPID SCREEN [facility] Start: 01-19-2005 Screening for malignant neoplasm of colon [facility] Start: 01-19-2005 SIGMOIDOSCOPY SIGMOIDOSCOPY [facility] Start: 2000 Mammography MAMMOGRAM [facility] Start: 2000 Screening for malignant neoplasm of breast Mammogram Screening [facility] Start: 01-19-1990 HPV TESTING HPV TESTING [facility] Start: 01-19-1990 Screening for malignant neoplasm of cervix [facility] Start: 01-19-1981 PAP TESTING PAP TESTING [facility] Start: 01-19-1981 Screening for malignant neoplasm of cervix [facility] Start: 01-19-1979 Hepatitis A Vaccine (1 of 2 - Risk 2-dose series) Hepatitis A Vaccine (1 of 2 - Risk 2-dose series) [facility] Start: 01-19-1979 Urine microalbumin profile [facility] Start: 01-19-1978 Annual PCP Team Chronic Disease Visit Annual PCP Team Chronic Disease Visit [facility] Start: 01-19-1978 Anxiety Screening Anxiety Screening [facility] Start: 01-19-1978 Depression Screening Depression Screening [facility] Start: 01-19-1978 Hepatitis B surface antibody level LDL Cholesterol [facility] Start: 01-19-1978 HEPATITIS C SCREENING HEPATITIS C SCREENING [facility] Start: 01-19-1978 Hepatitis C screening Hepatitis C Screening [facility] Start: 01-19-1978 HIV SCREENING HIV SCREENING [facility] Start: 01-19-1978 HIV screening HIV Screening [facility] Start: 1972 Adult depression screening assessment DEPRESSION SCREENING [facility] Start: 01-19-1970 Diabetic foot examination Diabetic Foot Exam [facility] Start: 01-19-1970 Glaucoma screening Dilated Retinal Exam [facility] Start: 01-19-1970 Hepatitis B screening Urine Albumin:Creatinine Ratio [facility] Start: 01-19-1965 Hemoglobin A1c measurement HbA1C [facility] Start: 01-19-1961 HEPATITIS A (1 of 2 - Risk 2-dose series) HEPATITIS A (1 of 2 - Risk 2-dose series) [facility] Start: 1960 Screening for malignant neoplasm of colon [facility] End: 07-22-2024 US ABD RIGHT UPPER QUADRANT US ABD RIGHT UPPER QUADRANT Radiology Routine MENDEZ (nonalcoholic steatohepatitis) 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 Immunizations Immunization Date Immunization Notes Care Provider Fa rylan 03-23-2023 influenza virus vacc ine, unspecified formulation NGA WILKINS [facility] 03-17-2023 influenza virus vacc ine, unspecified formulation NGA WILKINS [facility] 03-24-2022 influenza virus vacc ine, unspecified formulation NGA WILKINS [facility] 03-24-2022 SARS-CoV-2 (COVID-19 ) [id number] NGA WILKINS [facility] 06-01-2021 influenza virus vacc ine, unspecified formulation NGA WILKINS [facility] 06-01-2021 Influenza, injectabl e, Madin Breann Canine Kidney, preservative free, quadrivalent Andre Funes MD Work Phone: [facility] 06-01-2021 SARS-CoV-2 (COVID-19 ) mRNA [id number] vax NGA WILKINS [facility] 09-09-2020 COVID-19 vaccine, ag e 12+ yr (PFIZER-BIONTECH - PURPLE TOP) Andre Funes MD Work Phone: [facility] Comment on above: Result Comment: most recent given 09/09/20 08-20-2020 COVID-19 vaccine, ag e 12+ yr (PFIZER-BIONTECH - PURPLE TOP) Andre Funes MD Work Phone: [facility] 06-04-2020 zoster vaccine recombinant Andre Funes MD Work Phone: [facility] 03-23-2020 zoster vaccine recombinant Andre Funes MD Work Phone: [facility] 02-14-2020 influenza virus vacc ine, unspecified formulation NGA WILKINS [facility] 02-14-2020 Influenza, injectabl e, Madin Breann Canine Kidney, preservative free, quadrivalent Andre Funes MD Work Phone: [facility] 06-05-2019 influenza virus vacc ine, unspecified formulation NGA JUANITO [facility] 06-05-2019 Influenza, injectabl e, Madin Medanales Canine Kidney, preservative free, quadrivalent Andre Funes MD Work Phone: [facility] 05-21-2019 influenza virus vacc ine, unspecified formulation Andre Funes MD Work Phone: [facility] 05-21-2019 influenza, unspecifi ed formulation NGA WILKINS [facility] 04-19-2018 influenza virus vacc ine, unspecified formulation NGA WILKINS [facility] 04-19-2018 influenza, injectabl e, quadrivalent, preservative free Andre Funes MD Work Phone: [facility] 10-10-2017 hepatitis B vaccine, pediatric or pediatric/adolescent dosage Andre Funes MD Work Phone: [facility] 10-10-2017 hepatitis B vaccine, unspecified formulation Andre Funes MD Work Phone: [facility] 05-11-2017 hepatitis B vaccine, pediatric or pediatric/adolescent dosage Andre Funes MD Work Phone: [facility] 04-12-2017 hepatitis B vaccine, adult dosage Andre Funes MD Work Phone: [facility] 03-21-2017 influenza virus vacc ine, unspecified formulation NGA WILKINS [facility] 03-21-2017 influenza, injectabl e, quadrivalent, preservative free Andre Funes MD Work Phone: [facility] 04-12-2016 influenza virus vacc ine, unspecified formulation NGA WILKINS [facility] 04-12-2016 influenza, injectabl e, quadrivalent, preservative free Andre Funes MD Work Phone: [facility] 03-23-2014 influenza virus vacc ine, unspecified formulation Andre Funes MD Work Phone: [facility] 03-23-2014 influenza, unspecifi ed formulation NGA PAGERY [facility] 01-06-2009 pneumococcal polysaccharide vaccine, 23 valent Andre Funes MD Work Phone: [facility] Payers Date Payer Category Payer Medicare (Managed Care) [employer] [id number] 2022 Unknown [employer] D [employer] [id number] 2022-Present [address] [place] [id number] 2020 Medicare DEVOTED MEDICARE [employer] [id number] 2020-Present [phone] [address] [place] [address] [facility] [id number] 2020 Medicare DEVOTED MEDICARE [facility] HMO [id number] 2020-Present [phone] [address] [place] [address] HMO [id number] 2020 Unknown [id number] 2020 Medicaid [id number] 2020 Medicaid [id number] 2020 Medicare MEDICARE MEDICAR E A AND B [id number] 2020-Present [place] Medicare [id number] 1960 Unknown [id number] 2.16.840.1.308357.3.579.2. 593 1960 Unknown [id number] 2.16.840.1.518401.3.579.2. 732 1960 Unknown [id number] 2.16.840.1.558371.3.579.2. 593 1960 Unknown [id number] 2.16.840.1.226739.3.579.2. 593 1960 Unknown [id number] 2.16.840.1.030627.3.579.2. 593 1960 Unknown [id number] 2.16.840.1.290560.3.579.2. 593 1960 Unknown [id number] 2.16.840.1.427069.3.579.2. 593 1960 Unknown [id number] 2.16.840.1.424733.3.579.2. 593 1960 Unknown [id number] 2.16.840.1.518495.3.579.2. 593 1960 Unknown [id number] 2.16.840.1.852147.3.579.2. 593 1960 Unknown [id number] 2.16.840.1.645780.3.579.2. 593 1960 Unknown [id number] 2.16.840.1.609218.3.579.2. 593 1960 Unknown [id number] 2.16.840.1.675966.3.579.2. 593 1960 Unknown [id number] 2.16.840.1.452871.3.579.2. 1259 1960 Unknown [id number] 2.16.840.1.751221.3.579.2. 1259 1960 Unknown [id number] 2.16.840.1.901074.3.579.2. 1259 1960 Unknown [id number] 2.16.840.1.616959.3.579.2. 1259 1960 Unknown [id number] 2.16.840.1.889775.3.579.2. 1259 1960 Unknown [id number] 2.16.840.1.566849.3.579.2. 1259 1960 Unknown [id number] 2.16.840.1.123217.3.579.2. 1259 1960 Unknown [id number] 2.16.840.1.620018.3.579.2. 1259 1960 Unknown [id number] 2.16.840.1.178597.3.579.2. 1259 1960 Unknown [id number] 2.16.840.1.479813.3.579.2. 1259 1960 Unknown [id number] 2.16.840.1.125208.3.579.2. 1259 1960 Unknown [id number] 2.16.840.1.776997.3.579.2. 1259 1960 Unknown [id number] 2.16.840.1.619635.3.579.2. 1259 1960 Unknown [id number] 2.16.840.1.247230.3.579.2. 1259 1960 Unknown [id number] 2.16.840.1.474523.3.579.2. 1259 1960 Unknown [id number] 2.16.840.1.268176.3.579.2. 9 1960 Unknown [id number] 2.16.840.1.932244.3.579.2. 1960 Unknown [id number] 2.16.840.1.915925.3.579.2. 1960 Unknown [id number] 2.16.840.1.662991.3.579.2. 727 1960 Unknown [id number] 2.16.840.1.245346.3.579.2. 1960 Unknown [id number] 2.16.840.1.576376.3.579.2. 727 1960 Unknown [id number] 2.16.840.1.488892.3.579.2. 727 1960 Unknown [id number] 2.16.840.1.795277.3.579.2. 727 1960 Unknown [id number] 2.16.840.1.602911.3.579.2. 72 1960 Unknown [id number] 2.16.840.1.581068.3.579.2. 1960 Unknown [id number] 2.16.840.1.787900.3.579.2. 727 1960 Unknown [id number] 2.16.840.1.898263.3.579.2. 727 1959 Medicaid [id number] Social History Date Type Detail Facility Tobacco smoking stat us NHIS Unknown if ever smoked [facility] Start: 1960 Sex Assigned At Not on file C [facility] Start: 08-06-2020 End: 06-25-2022 Tobacco smoking status NHIS Smokes tobacco daily [facility] History of tobacco use Cigarette Smoker C [facility] Start: 08-06-2020 End: 06-23-2023 Cigarettes smoked current (pack per day) - Reported 0.5 [facility] Start: 08-06-2020 End: 06-25-2022 Tobacco use and exposure Smokeless tobacco non-user [facility] Start: 06-11-2021 End: 06-23-2023 Alcohol intake Ex-drinker (finding) [facility] Start: 12-07-2021 End: 12-17-2021 Exposure to SARS-CoV-2 (event) Not sure [facility] Start: 12-10-2020 End: 06-23-2023 Sex Assigned At [facility] History of tobacco use Passive smoker [facility] Start: 05-03-2023 End: 02-29-2024 Tobacco smoking status Heavy tobacco smoker (finding) [facility] Tobacco smoking status Never [facility] Start: 05-26-2023 Tobacco Comment Thinks about quittin g [facility] Start: 05-26-2023 Alcohol Comment caffeine 1-2 c ups/day; coffee [facility] Medical Equipment Procedure Code Equipment Code Equipment Origin al Text Equipment Identifier Dates [id number] Start: 07-14-2022 End: 03-05-2024 Functional Status Date Assessment Result Facility 02-29-2024 Functional Status N/A [facility] 01-02-2024 Functional Status N/A [facility] 12-05-2023 Functional Status N/A [facility] 11-28-2023 Functional Status N/A [facility] 11-21-2023 Functional Status N/A [facility] 11-14-2023 Functional Status N/A [facility] 05-03-2023 Functional Status N/A [facility] Clinical Notes 12-17-2021 to 04-23-2024 Telephone Encounter - Luz Hamilton RN - 04/23/2024 3:35 PM ESTTelephone Encounter - Luz Hamilton RN - 04/23/2024 3:35 PM Mariel Solis MD - 03/05/2024 1:50 PM EDTPatient Instructions Note Date & Type Note Facility 04-23-2024 Telephone encounter Note Pt calling to ask if she can complete Q6 month US in April d/t insurance deductible. Last US 01/03/24, pt not due until Jul 05. She denies any new concerns or problems, I just don't want to pay for it in full. Pt calling insurance to see if it will be covered, if completed sooner. Discussed with pt that order was written for every 6 months, as recommended by Mio. She prefers to complete early, if insurance will allow her. Mio: TOYIN Hamilton RN [facility] 04-23-2024 Miscellaneous Notes Pt calling to ask if she can complete Q6 month US in April d/t insurance deductible. Last US 01/03/24, pt not due until Jul 05. She denies any new concerns or problems, I just don't want to pay for it in full. Pt calling insurance to see if it will be covered, if completed sooner. Discussed with pt that order was written for every 6 months, as recommended by Mio. She prefers to complete early, if insurance will allow her. Mio: TOYIN Hamilton RN documented in this encounter [facility] 03-05-2024 History of Present illness Narrative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 Provider:NGA WILKINS PA-C Location:[facility] [place] Appointment Type:URO Procedure 15 min Appointment Date:12/19/2023 11:20:00 AM Scheduled Provider:NGA WILKINS PA-C Location:[facility] [place] Appointment Type:URO Procedure 30 min Appointment Date:01/02/2024 11:20:00 AM Scheduled Provider:NGA WILKINS PA-C Location:[facility] [place] Appointment Type:URO Procedure 30 min [facility] evaluation + Plan note Future Appointments Appointment Date:11/28/2023 11:20:00 AM Scheduled Provider:NGA WILKINS PA-C Location:[facility] [place] Appointment Type:URO Procedure 30 min Appointment Date:12/05/2023 11:20:00 AM Scheduled Provider:NGA WILKINS PA-C Location:[facility] [place] Appointment Type:URO Procedure 15 min Appointment Date:12/19/2023 11:20:00 AM Scheduled Provider:NGA WILKINS PA-C Location:[facility] [place] Appointment Type:URO Procedure 30 min Appointment Date:01/02/2024 11:20:00 AM Scheduled Provider:NGA WILKINS PA-C [facility] Appointment Type:URO Procedure 30 min [facility] evaluation + Plan note Future Appointments Appointment Date:12/05/2023 11:20:00 AM Scheduled Provider:NGA WILKINS PA-C Location:[facility] [place] Appointment Type:URO Procedure 15 min Appointment Date:12/19/2023 11:20:00 AM Scheduled Provider:NGA WILKINS PA-C Location:[facility] [place] Appointment Type:URO Procedure 30 min Appointment Date:01/02/2024 11:20:00 AM Scheduled Provider:NGA WILKINS PA-C [facility] Appointment Type:URO Procedure 30 min [facility] Evaluation + Plan note Future Appointments Appointment Date:12/19/2023 11:20:00 AM Scheduled Provider:NGA WILKINS PA-C Location:[facility] [place] Appointment Type:URO Procedure 30 min Appointment Date:01/02/2024 11:20:00 AM Scheduled Provider:NGA WILKINS PA-C Location:[facility] [place] Appointment Type:URO Procedure 30 min [facility] Evaluation + Plan note Future Appointments Appointment Date:02/29/2024 08:20:00 AM Scheduled Provider:NGA WILKINS PA-C [facility] Appointment Type:URO Office Visit [facility] [place] [facility] [place] Evaluation note* Diagnosis 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) Cirrhosis of liver without mention of alcohol MENDEZ (nonalcoholic steatohepatitis) Other chronic nonalcoholic liver disease documented in this encounter [facility]* Diagnosis 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)- Primary Cirrhosis of liver without mention of alcohol MENDEZ (nonalcoholic steatohepatitis) Other chronic nonalcoholic liver disease 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 thrombocytopenia documented in this encounter [facility] HospitalEvaluation noteNo [employer] Other Evaluation note* Diagnosis MENDEZ (nonalcoholic steatohepatitis)- Primary Other chronic nonalcoholic liver disease 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) Cirrhosis of liver without mention of alcohol 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 thrombocytopenia Thrombocytopenia (HCC) Thrombocytopenia, unspecified Diabetic gastroparesis (HCC) (HCC) Type II or unspecified type diabetes mellitus with neurological manifestations, not stated as uncontrolled [facility] Diagnosis SAMUEL (generalized anxiety disorder) (CMS/HCC) Generalized anxiety disorder Type 2 diabetes mellitus with hyperglycemia, with long-term current use of insulin ([facility]/HCC) documented in this encounter [facility]* Diagnosis Type 2 diabetes mellitus with hyperglycemia, with long-term current use of insulin (CMS/HCC)- Primary Insulin long-term use ([facility]/HCC) Encounter for long-term (current) use of insulin Vitamin D deficiency Encounter for dietary consultation High risk medication use Primary hypertension (CMS/HCC) Unspecified essential hypertension Hypoglycemia Hypoglycemia, unspecified Class 2 severe obesity due to excess calories with serious comorbidity and body mass index (BMI) of 35.0 to 35.9 in adult (CMS/HCC) Microalbuminuria Proteinuria 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CMS/HCC) Chronic lymphocytic thyroiditis documented in this encounter [facility] HealthcareEvaluation note* Diagnosis SAMUEL (generalized anxiety disorder) (CMS/HCC) Generalized anxiety disorder documented in this encounter [facility] HealthcareHistory general Narrative - Reported* Type Description Date Surgical History tonsillectomy and adenoidectomy Surgical History C section Surgical History tubal ligation Surgical History cholecystectomy Hospitalization History SEE ABOVE [facility] Other Hospital Discharge instructions No data available for this section [facility] [place] [facility] [place] Progress note No data available for this section [facility] [place] [facility] Ramos reason for referral (narrative)* Diagnostic Procedure Only (Routine) - Pending Review Specialty Diagnoses / Procedures Referred By Mony hinojosa Referred To Contact US IMAGING Diagnoses 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) MENDEZ (nonalcoholic steatohepatitis) Procedures US ABD RT UPPER QUADRANT US ABDOMINAL REAL TIME W/IMAGE LIMITED Andre Funes MD [facility] [place] [address] Us Imaging Referral ID Status Reason Start Date Expiration Date Visits Requested Visits Authorized [id number] Pending Review Auto-Generat ed Referral 06/19/2022 01/16/2023 1 1 [facility] for referral (narrative)* Diagnostic Procedure Only (Routine) - Pending Review Specialty Diagnoses / Procedures Referred By Mony hinojosa Referred To Contact US IMAGING Diagnoses 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 Procedures US DOPPLER COMPLETE DUP-SCAN ARTL PATRICK ABDL/PEL/SCROT&/RPR ORGN [facility] Andre Funes MD [address] [place] [address] [place] [address] Us Imaging Referral ID Status Reason Start Date Expiration Date Visits Requested Visits Authorized [id number] Pending Review Auto-Generat ed Referral 06/25/2023 07/25/2023 1 1 * Diagnostic Procedure Only (Routine) - Pending Review Specialty Diagnoses / Procedures Referred By Mony hinojosa Referred To Contact US IMAGING Diagnoses 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 Procedures US ABD LIVER VASCULAR US ABDOMINAL REAL TIME W/IMAGE LIMITED DUP-SCAN ARTL PATRICK ABDL/PEL/SCROT&/RPR ORG COM Andre Funes MD [address] [place] [address] [place] [address] Us Imaging Referral ID Status Reason Start Date Expiration Date Visits Requested Visits Authorized [id number] Pending Review Auto-Generat ed Referral 06/25/2023 07/25/2023 1 1 [facility] for referral (narrative)* Diagnostic Procedure Only (Routine) - Pending Review Specialty Diagnoses / Procedures Referred By Mony hinojosa Referred To Contact US IMAGING Diagnoses MENDEZ (nonalcoholic steatohepatitis) 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 Procedures US ABD RIGHT UPPER QUADRANT US ABDOMINAL REAL TIME W/IMAGE LIMITED Andre Funes MD [address] [place] [address] [place] [address] [place] [address] Referral ID Status Reason Start Date Expiration Date Visits Requested Visits Authorized [id number] Pending Review Auto-Generat ed Referral 06/23/2023 07/22/2024 1 1 [facility] for visit NarrativePT HERE AT REQ OF SHAKIRA HIGGINS FOR GERD, (REFERRAL NOTE RECEIVED)[facility] Other Summary Purpose Family History No Family [...] and content) DATE CREATED AUTHOR 06/16/2019 [facility] DATE CREATED AUTHOR AUTHOR'S ORGANIZ ATION 06/03/2021 [facility] DATE CREATED AUTHOR AUTHOR'S ORGANIZ ATION 03/01/2022 [facility] DATE CREATED AUTHOR AUTHOR'S ORGANIZ ATION 10/29/2022 [facility] DATE CREATED AUTHOR AUTHOR'S ORGANIZ ATION 08/03/2023 [facility] DATE CREATED AUTHOR AUTHOR'S ORGANIZ ATION 04/06/2024 [facility] DATE CREATED AUTHOR AUTHOR'S ORGANIZ ATION 04/13/2024 [facility] DATE CREATED AUTHOR AUTHOR'S ORGANIZ ATION 04/25/2024 [facility] Source Comments (unrecognize d section and content) In the event this informatio n is protected by the Federal Confidentiality of Alcohol and Drug Abuse Patient Records regulations: The Federal rules restrict any use of the information to criminally investigate or prosecute any alcohol or drug abuse patient.[facility] HospitalIn the event this information is protected by the Federal Confidentiality of Alcohol and Drug Abuse Patient Records regulations: The Federal rules restrict any use of the information to criminally investigate or prosecute any alcohol or drug abuse patient.[facility] HospitalIn the event this information is protected by the Federal Confidentiality of Alcohol and Drug Abuse Patient Records regulations: The Federal rules restrict any use of the information to criminally investigate or prosecute any alcohol or drug abuse patient.[facility] HospitalIn the event this information is protected by the Federal Confidentiality of Alcohol and Drug Abuse Patient Records regulations: The Federal rules restrict any use of the information to criminally investigate or prosecute any alcohol or drug abuse patient.[facility] HospitalIn the event this information is protected by the Federal Confidentiality of Alcohol and Drug Abuse Patient Records regulations: The Federal rules restrict any use of the information to criminally investigate or prosecute any alcohol or drug abuse patient.[facility] Reason for Visit (unrecogniz ed section and content) Reason Comments Thrombocytopenia Reason Comments Thrombocytopenia 6 month follow up Reason Comments Follow-up Reason Comments US Care Teams (unrecognized sec tion and content) Folder Stitcher Operator Relationship Specialty Start Date End Date Shakira Higgins CNP [address] [place] [address] PCP - General Internal Medicine 08/01/20 Folder Stitcher Operator Relationship Specialty Start Date End Date Shakira Higgins CNP [address] [place] [address] PCP - General Internal Medicine 08/01/20 Folder Stitcher Operator Relationship Specialty Start Date End Date Benjamin Del Toro MD [address] [place] [address] PCP - General Family Medicine 05/18/23 Tj Dutton MD [address] [place] [address] Obstetrics and Gynecology 05/18/23 Folder Stitcher Operator Relationship Specialty Start Date End Date Benjamin Del Toro MD [address] [place] [address] PCP - General Family Medicine 05/18/23 Tj Dutton MD [address] [place] [address] Obstetrics and Gynecology 05/18/23 Folder Stitcher Operator Relationship Specialty Start Date End Date Benjamin Del Toro MD [address] [place] [address] PCP - General Family Medicine 05/18/23 Tj Dutton MD [address] [place] [address] Obstetrics and Gynecology 05/18/23 Folder Stitcher Operator Relationship Specialty Start Date End Date Benjamin Del Toro MD [address] [place] [address] PCP - General Family Medicine 05/18/23 Tj Dutton MD [address] [place] [address] Obstetrics and Gynecology 05/18/23 Folder Stitcher Operator Relationship Specialty Start Date End Date Benjamin Del Toro MD [address] [place] [address] PCP - General Family Medicine 05/18/23 Tj Dutton MD [address] [facility] [address] [place] [address] Obstetrics and Gynecology 05/18/23 Folder Stitcher Operator Relationship Specialty Start Date End Date Shakira Higgins CNP [address] [place], [place] [id number] [phone] PCP - General Internal Medicine 08/01/20 FOR [...] BE BASED ON THE PRIMARY CLINICAL RECORDS. [facility]. provides no warranty or guarantee of the accuracy or completeness of information in this document.
== END 2024-04-26 10:29 | disposition home or self-care (01) ==
LOC: US 10:28
PROVIDERS: PCP Nurse Practitioner Family; Visit Provider Internal Medicine Hematology & Oncology
DX: K75.81 Nonalcoholic steatohepatitis (NASH) (principal); K74.60 Unspecified cirrhosis of liver; D69.59 Other secondary thrombocytopenia; D73.1 Hypersplenism
CPT/HCPCS: 76705

== ENCOUNTER 2024-10-24 13:47 | Outpatient (OUT) | payer MEDICARE, SELFPAY ==
--- OUTSIDE RECORDS SUMMARY | 2023-07-20 09:00 | XMS_ITS | Continuity of Care Document ---
Author Organization [facility] Address [address] [place] [address] Phone Care Team Providers Care Supervisor Dock Name Role Phone Jed Goss DDS Unavailable Unavailable Allergies, Adverse Reactions, Alerts Substance Reaction Status Criticality trazodone Active No Information Medications Medication Instructions Dosage Effective Dates (start - stop) Status Comments Neutrasal mucosal powder in packet dissolve one packet of NeutraSal in 1 oz of water and swish solution in mouth for 1 minute, twice daily as needed for dry mouth relief - Active Breztri Aerosphere 160 mcg-9mcg-4.8mcg/actu ation HFA aerosol inhaler inhale 2 puff by inhalation route 2 times every day in the morning and evening 2.00 puff - Active cevimeline 30 mg capsule take 1 capsule by oral route 3 times every day 30 MG - Active gabapentin 300 mg capsule take 1 capsule by oral route 3 times every day 300 MG - Active losartan 25 mg tablet take 1 tablet by oral route every day 25 MG - Active Jardiance 10 mg tablet take 1 tablet by oral route every day in the morning 10 MG - Active FreeStyle Hever 2 Sensor kit - Active triamcinolone acetonide 0.1 % topical cream apply by topical route 2 times every day a thin layer to the affected area(s) 0.00 - Active Restasis 0.05 % eye drops in a dropperette instill 1 drop by ophthalmic route every 12 hours into affected eye(s) 1.00 drop - Active nystatin 100,000 unit/gram topical powder apply by topical route 2 times every day to the affected area(s) 0.00 - Active Humulin R U-500 (Concentrated) Insulin 500 unit/mL subcutaneous soln inject by subcutaneous route per prescriber's instructions. Insulin dosing requires individualization. 0.00 - Active Yuvafem 10 mcg vaginal tablet insert 1 tablet by vaginal route every day for 14 days then 1 tablet (10 mcg) 2 times per week for duration of use 10 MCG - Active dicyclomine 10 mg capsule take 1 capsule by oral route 4 times every day 10 MG - Active primidone 50 mg tablet take 1 tablet by oral route every day 50 MG - Active Proair Digihaler 90 mcg/actuation aerosol powder breath act, sensor inhale 2 puff by inhalation route every 4 - 6 hours as needed - Active fluconazole 150 mg tablet take 1 tablet by oral route once 150 MG - Active Humulin R U-500 (Concentrated) Insulin 500 unit/mL subcutaneous soln inject by subcutaneous route as per insulin protocol 0.00 - Active levothyroxine 150 mcg capsule take 1 capsule by oral route every day 150 MCG - Active pantoprazole 40 mg tablet,delayed release take 1 tablet by oral route every day 40 MG - Active Trulicity 0.75 mg/0.5 mL subcutaneous pen injector inject (0.75MG) by subcutaneous route every week 0.75 MG - Active venlafaxine ER 150 mg tablet,extended release 24 hr take 1 tablet by oral route every day in the morning at the same time each day with food 150 MG - Active buspirone 10 mg tablet take 1 tablet by oral route 2 times every day 10 MG - No Longer Active Spiriva Respimat 1.25 mcg/actuation solution for inhalation inhale 2 puff by inhalation route every day 2.5 MCG - No Longer Active furosemide 40 mg tablet take 1 tablet by oral route every day 40 MG - No Longer Active trazodone 50 mg tablet take 1 tablet by oral route every day at bedtime 50 MG - No Longer Active Procedures Procedure Date Intraoral-periapical 1st Film Bitewig-single Film Oral Hygiene Instruction Limited Oral Eval Bitewings Four Films Prophylaxis Adult Periodic Oral Eval Estab Patient 2022 Moderate Risk Nutrit Couns For Control Of [place] Dis Aug Tobacco Counseling Oral Hygiene Instruction Resin Two Surfaces Anterior Oral Hygiene Instruction Tobacco Counseling Resin Composite 2s; Posterior 2 Prophylaxis Adult Oral Hygiene Instruction Oral Hygiene Instruction Resin Composite 1s; Posterior 2 Tobacco Counseling Oral Hygiene Instruction Resin Composite 2s; Posterior Oral Hygiene Instruction Resin Composite 2s; Posterior Tobacco Counseling Extract; Erupted Th/exposted Rt 022 No Charge Nutrit Couns For Control Of [place] Dis Jul Resin Composite 1s; Posterior Oral Hygiene Instruction Prophylaxis Adult Comp Oral Eval New/estab Patient 2021 Intraoral-complete Series (bw) Tobacco Counseling Oral Hygiene Instruction Advance Directives Directive Yes / No Effective Date File Name No Information Encounters Encounter Description Practice Location Reason(s) For Visit Diagnoses Date Provider Providers Copied on Encounter [facility], [address] [place] [address], [id number], tel:[phone] Dental Clinic fill (chief complaint) Encounter for screening for dental disorders Wolfgang Adkins. [address] [place] [address], [address], [place]. tel:[phone] [facility], [address] [place] [address], [id number], [place] tel:[phone] Dental Clinic adult prophy (chief complaint) Encounter for screening for dental disorders Cristian Maldonado. . tel:[phone] [facility], [address] [place] [address], [id number], [place] tel:[phone] Dental Clinic FIll (chief complaint) [facility] disorders [facility] [address] [place], [address], [place]. tel:[phone] [facility], [address] [place], [place], [id number], [place] tel:[phone] Dental Clinic fill (chief complaint) Encounter for screening for dental disorders barak DDS Jed. [address] [place], [address], [place]. tel:[phone] [facility], [address] [place], [place], [id number], [place] tel:[phone] Dental Clinic prophy (chief complaint) [facility] [address] [place], [address], [place]. tel:[phone] [facility], [address], [place], [id number], [place] tel:[phone] Dental Clinic Filling (chief complaint) [facility] disorders [facility] [address] [place], [address], [place]. tel:[phone] [facility], [address] [place], [place], [id number], [place] tel:[phone] Dental Clinic Filling (chief complaint) Encounter for screening for dental disorders barak DDS Jed. [address] [place], [address], [place]. tel:[phone] [facility], [address] [place], [place], [id number], [place] tel:[phone] Dental Clinic Filling (chief complaint) Encounter for screening for dental disorders barak DDS Jed. [address] [place], [address], [place]. tel:[phone] [facility], [address] [place], [place], [id number], [place] tel:[phone] Dental Clinic Extraction (chief complaint) [facility] [address] [place], [address], [place]. tel:[phone] [facility], [address] [place] [address], [id number], [place] tel:[phone] Dental Clinic Filling (chief complaint) [facility]. [address] [place], [address], [place]. tel:[phone] [facility], [address] [place] [address], [id number], [place] tel:[phone] Dental Clinic filling (chief complaint) Encounter for screening for dental disorders Jason Bahena. [address] [place], [place], [id number], [place]. tel:[phone] [facility], [address] [place] [address], [id number], [place] tel:[phone] Dental Clinic prophy (chief complaint) Encounter for screening for dental disorders Jason Bahena. [address], [place], [id number], [place]. tel:[phone] [facility], [address] [place] [address], [id number], [place] tel:[phone] Dental Clinic Dental New (chief complaint)De ntal New (chief complaint) Encounter for screening for dental disorders Jason Bahena. [address] [place], [place], [id number], [place]. tel:[phone] Family History Family Member Type Diagnosis Age At Onset Father Problem malignant neoplasm of lung Mother Problem Alive and well Mother Problem Diabetes mellitus Payers Payer name Insurance type Covered democrat ID Tara franklin(s) [employer] Medicare Adv (Devoted 17 [id number] Social History Type Description Quantity Date Captured Comments Alcohol Use Details Unknown Caffeine Use Details Unknown Tobacco Use Status Occasional cigarette smoker Smoking Status Heavy tobacco smoker Sex Female Sexual Orientation Straight or heterosexual Gender Identity Female Vital Signs Date / Time: Height Weight BMI Pulse Rate Blood Pressure Temperature Respiratory Rate Body Surface Area Head Circumference Head Circ. Percentile Wt./Jimbo. Percentile BMI percentile Pulse Ox Inhaled Ox 1:34 PM 72 /min 125/85 mm[Hg] 97.30 F Chief Complaint And Reason For Visit From encounter dated 07/20/2023 13:00'. fill (chief complaint) Reason For Referral Reason For Referral No Information Plan Of Treatment Date Type Action Status Goal Depression screening. Due on due Goal PRAPARE ASSESSMENT. Due on due Goal Colonoscopy. Due on due Goal Mammogram. Due on due Goal FIT. Due on due Goal FIT-DNA. Due on due Goal Unhealthy drug use screening . Due on due Goal CT-Colonography. Due on due Goal Hepatitis C screening. Due o n due Goal HPV. Due on due Goal Lipid panel. Due on due Goal Tdap. Due on due Goal Zoster vaccine (1st). Due on due Goal Tdap Vaccine. Due on 2023 due Goal FOBT. Due on due Goal Influenza vaccine. Due on due Goal Zoster vaccine (1st). Due on due Goal FOBT. Due on due Goal Mammogram. Due on due Goal Tdap. Due on due Goal PRAPARE ASSESSMENT. Due on A due Goal Lipid panel. Due on due Goal Depression screening. Due on due Goal Colonoscopy. Due on due Goal Influenza vaccine. Due on Ap due Goal Hep A. Due on du e Goal Hep A. Due on du e Goal Tdap Vaccine. Due on 2022 due Goal Colonoscopy. Due on due Goal Influenza vaccine. Due on No due Goal PRAPARE ASSESSMENT. Due on N due Goal Mammogram. Due on 2 due Goal Lipid panel. Due on due Goal Zoster vaccine (1st). Due on due Goal Depression screening. Due on due Goal FOBT. Due on due Goal Tdap. Due on due Goal Influenza vaccine. Due on Oc due Goal FOBT. Due on due Goal Zoster vaccine (1st). Due on due Goal Mammogram. Due on due Goal Depression screening. Due on due Goal PRAPARE ASSESSMENT. Due on O ct due Goal Lipid panel. Due on due Goal Colonoscopy. Due on due Goal Tdap. Due on due Goal Influenza vaccine. Due on Oc t due Goal Depression screening. Due on due Goal PRAPARE ASSESSMENT. Due on O ct due Goal Zoster vaccine (). Due on due Goal Colonoscopy. Due on due Goal FOBT. Due on due Goal Mammogram. Due on due Goal Lipid panel. Due on due Goal Tdap. Due on due Goal Mammogram. Due on due Goal FOBT. Due on due Goal Depression screening. Due on due Goal Lipid panel. Due on due Goal Tdap. Due on due Goal Zoster vaccine (1st). Due on due Goal Influenza vaccine. Due on due Goal Colonoscopy. Due on due Goal PRAPARE ASSESSMENT. Due on due Goal Zoster vaccine (1st). Due on due Goal Depression screening. Due on due Goal Influenza vaccine. Due on due Goal FOBT. Due on due Goal Lipid panel. Due on due Goal Mammogram. Due on due Goal Colonoscopy. Due on due Goal Tdap. Due on due Goal Depression screening. Due on due Goal Mammogram. Due on due Goal Zoster vaccine (). Due on due Goal Influenza vaccine. Due on due Goal Tdap. Due on due Goal Colonoscopy. Due on due Goal FOBT. Due on due Goal Lipid panel. Due on due Goal Lipid panel. Due on due Goal FOBT. Due on due Goal Colonoscopy. Due on due Goal Tdap. Due on due Goal Influenza vaccine. Due on due Goal Zoster vaccine (). Due on due Goal Mammogram. Due on due Goal Depression screening. Due on due Goal Tobacco cessation counseling completed History Of Present Illness Encounter Date Complaint History Of Prese nt Illness fill adult prophy adult prophy FIll fill prophy prophy Filling filling Filling Filling Filling Continue with tr eatment Extraction Extraction Filling filling filling prophy prophy Dental New Dental New Dental New Functional Status Date Functional Assessmen t No Information Instructions Date Instruction Additional Infor mation No Information Assessments Type Assessment Date No Information Patient Care Teams Name Effective Dates (start - stop) Status Members No Information
--- OUTSIDE RECORDS SUMMARY | 2024-08-02 09:07 | XMS_ITS ---
Author Organization [facility] in [place] Address [address] [place] [address] Care Team Providers Care Avionics Systems Repairer Name Role Phone Shakira Arreaga Primary Care Provider REASON FOR VISIT bp readings Encounters Encounter Location Date Provider Diagnosis [address] [address] 08/02/2024 Shakira Arreaga Plan Of Treatment Next Appt Details Provider Name:Shakira davila, 11/07/2024 01:30:00 PM, [address] [place] [address], [phone], Provider Name:Shakira davila, 01/01/2025 02:30:00 PM, [address] [place] [address], [phone], Progress Notes * Renetta BARBOSA ADOB: [birth year] (64 yo F)Acc No.[id number]:08/02/2024 Patient: Rasta ARIASRenetta MALAVE :1960 A ge:64 Y S ex:Female Address:[address] [place] [phone] * true * Date: Generated for Printi ng/Faxing/eTransmitting on: 0 10/24/2024 01:51 PM EDT
--- OUTSIDE RECORDS SUMMARY | 2024-08-21 10:36 | XMS_ITS ---
Author Organization [facility] in [place] Address [address] [place] [address] Care Team Providers Care Grave Cleaner Name Role Phone Shakira Arreaga Primary Care Provider REASON FOR VISIT BP readings Encounters Encounter Location Date Provider Diagnosis [address] [address] 08/21/2024 Shakira Arreaga Plan Of Treatment Next Appt Details Provider Name:Shakira davila, 11/07/2024 01:30:00 PM, [address] [place] [address], [phone], Provider Name:Shakira davila, 01/01/2025 02:30:00 PM, [address] [place] [address], [phone], Progress Notes * Renetta BARBOSA ADOB: [birth year] (64 yo F)Acc No.[id number]:08/21/2024 Patient: Rasta ARIASRenetta MALAVE :1960 A ge:64 Y S ex:Female Address:[address] [place] [phone] * true * Date: Generated for Printi ng/Faxing/eTransmitting on: 0 10/24/2024 01:50 PM EDT
--- OUTSIDE RECORDS SUMMARY | 2024-09-26 11:54 | XMS_ITS ---
Author Organization [facility] in [place] Address [address] [place] [address] Care Team Providers Care Homebirth Midwife Name Role Phone Shakira Arreaga Primary Care Provider REASON FOR VISIT med change Medications Medication SIG (Take, Route, Fr equency, Duration) Notes Start Date End Date Status Pilocarpine HCl 5 MG 1 tablet Orally nathaniel ly for 30 days 09/27/2024 Active Encounters Encounter Location Date Provider Diagnosis [address] [address] 09/26/2024 Shakira Arreaga Plan Of Treatment Medication Medication Name Sig Start Date Stop Date Notes Cevimeline HCl 30 MG TAKE 1 CAPSULE BY Rasta GARDUNO THREE TIMES A DAY FOR 30 DAYS Pilocarpine HCl 5 MG 1 tablet Orally daily for 30 days 12/2024 Next Appt Details Provider Name:Shakira davila, 11/07/2024 01:30:00 PM, [address] [place] [address], [phone], Provider Name:Shakira davila, 01/01/2025 02:30:00 PM, [address] [place] [address], [phone], Progress Notes * Renetta BRABOSA ADOB: [birth year] (64 yo F)Acc No.[id number]:09/26/2024 Patient: Renetta [place] :1960 A ge:64 Y S ex:Female Address:[address] [place] [phone] * Refills Stop Cevimeline HCl Capsule, 30 MG, TAKE 1 CAPSULE BY MOUTH THREE TIMES A DAY FOR 30 DAYS Start Pilocarpine HCl Tablet, 5 MG, Orally, 30 Tablet, 1 tablet, daily, 30 days, Refills=11 Subjective: * Chief Complaints: * M ed change * Medical History: * Surgical History: * Hospitalization/Major Diagno stic Procedure: * Medications: Objective: * Vitals: * Physical Examination: Assessment: Plan: * Treatment: * Procedure Codes: * true * Date: Generated for Justus leon/Rose Mary/Cindi on: 10/24/2024 01:51 PM EDT
--- OUTSIDE RECORDS SUMMARY | 2024-10-24 13:51 | XMS_ITS | Clinical Summary ---
Author Organization [facility] Address [address] [place] [address] Care Team Providers Care Wealth Management Advisor Name Role Phone Shakira Arreaga CNP Primary Care Provider [phone] Allergies Active Allergy Reactions Criticality Noted Date Comments Capsaicin 05/24/2023 Tramadol Unknown 01/30/2024 Trazodone 06/21/2023 Medications Medication Sig Dispensed Refills Start Date End Date Status budesonide-glycopyr- formoterol (Breztri Aerosphere) 160-9-4.8 mcg/actuation HFA aerosol inhaler INHALE 2 PUFFS TWICE A DAY DIRECTED for 30 05/17/2023 Active cevimeline (Evoxac) 30 mg capsule 1 capsule every 8 (eight) hours. 05/03/2023 Active gabapentin (Neurontin) 300 mg capsule Take 300 mg by mouth in the morning. 03/13/2020 Active insulin regular (HumuLIN R U-500, Conc, Kwikpen) 500 unit/mL (3 mL) CONCENTRATED injection pen 85 units in morning 85 in afternoon 20 in evening 05/14/2023 Active levothyroxine (Synthroid, Levoxyl) 150 mcg tablet Take 150 mcg by mouth in the morning. 05/27/2023 Active losartan (Cozaar) 25 mg tablet 25 mg 1 (one) time each day. 04/20/2023 Active pantoprazole (ProtoNix) 40 mg EC tablet TAKE 1 TABLET BY MOUTH TWICE A DAY for 90 05/27/2020 Active primidone (Mysoline) 50 mg tablet Take 100 mg by mouth in the morning and at bedtime. 04/20/2023 Active dulaglutide (Trulicity) 3 mg/0.5 mL pen injector as directed Subcutaneous 03/17/2023 Active venlafaxine XR (Effexor-XR) 150 mg 24 hr capsule Take 150 mg by mouth in the morning. 03/13/2020 Active cholecalciferol, vitamin D3, 25 mcg (1,000 unit) tablet,chewable 1 (one) time each day at the same time. Active estradiol (Vagifem) 10 mcg tablet vaginal tablet 1 tablet orally twice weekly 03/13/2020 Active pravastatin (Pravachol) 40 mg tablet Take 40 mg by mouth at bedtime. Active Jardiance 25 mg Take 25 mg by mouth in the morning. 07/27/2023 Active Restasis 0.05 % ophthalmic emulsion Administer 1 drop into both eyes every 12 (twelve) hours. 07/12/2024 Active dicyclomine (Bentyl) 10 mg capsule Take 1 capsule by mouth every 6 (six) hours. 06/12/2024 Active Myrbetriq 25 mg tablet extended release 24 hr Take 50 mg by mouth in the morning. 04/09/2024 Active Myrbetriq 50 mg tablet extended release 24 hr Take 1 tablet by mouth in the morning. Active Klayesta 100,000 unit/gram powder apply to affected area twice a day 07/05/2024 Active tiZANidine (Zanaflex) 4 mg tablet Take 4 mg by mouth every 6 (six) hours if needed. 08/22/2024 Active melatonin 10 mg tablet Take 10 mg by mouth at bedtime. Active Active Problems Problem Noted Date Diagnosed Date Dizziness 09/03/2024 Dry eyes 08/30/2024 Dry mouth 08/30/2024 Nausea 08/30/2024 Stress incontinence 08/30/2024 Cognitive dysfunction 10/11/2023 Hypersomnia 10/11/2023 Imbalance 10/11/2023 Essential tremor 10/11/2023 PLMD (periodic limb movement disorder) Anxiety 08/02/2023 08/02/2023 Arthritis 08/02/2023 08/02/2023 Obstructive sleep apnea 08/02/2023 08/02/19 24 Abdominal pain, epigastric 06/21/202306/21 Anal skin tag 06/21/2023 06/21/2023 Anxiety with depression 06/21/2023 06/21/19 24 BMI 39.0-39.9,adult 06/21/2023 06/21/2023 Chronic obstructive pulmonary disease 06/21/2023 06/21/2023 Diabetes 06/21/2023 06/21/2023 Family history of hepatic cirrhosis 06/21/2023 06/21/2023 Furuncle 06/21/2023 06/21/2023 Gastroparesis due to DM 06/21/2023 06/21/19 Hemorrhoids 06/21/2023 06/21/2023 GERD (gastroesophageal reflux disease) 06/21/2023 HTN (hypertension) 06/21/2023 06/21/2023 Hyperlipidemia 06/21/2023 06/21/2023 Hyperplastic polyp of sigmoid colon 06/21/2023 06/21/2023 Hypothyroid 06/21/2023 06/21/2023 Iron deficiency anemia 06/21/2023 Constipation 06/21/2023 06/21/2023 Mixed incontinence urge and stress 06/21/2023 06/21/2023 Low platelet count 06/21/2023 06/21/2023 Occult blood in stools 06/21/2023 Peripheral neuropathy 06/21/2023 06/21/2023 Positive colorectal cancer screening using Colog uard test 06/21/2023 06/21/2023 Rectal bleeding 06/21/2023 06/21/2023 RLS (restless legs syndrome) 06/21/2023 Smoker 06/21/2023 06/21/2023 Encounters Date Type Department Care Team Description 09/03/2024 11:00 AM EDT Office Visit [facility] [address] [place] [address] Edda Velazquez MD Dizziness (Primary Dx); Primary hypertension; Pure hypercholesterolemia; Type 2 diabetes mellitus with diabetic polyneuropathy, with long-term current use of insulin (CMS/HCC); Smoker; BMI 39.0-39.9,adult; Obstructive sleep apnea from Last 3 Months Family History Medical History Relation Name Comments Lung cancer Father Breast cancer Maternal Grandmother Coronary artery disease Mother Diabetes Mother Relation Name Status Comments Father Maternal Grandmother Mother Alive Social History Tobacco Use Types Packs/Day Years Used Date Smoking Tobacco: Every Day Cigarettes Smokeless Tobacco: Never Tobacco Cessation:Ready to Q uit: Not Asked; Counseling Given: Not Answered Alcohol Use Standard Drinks/Week Comments Yes 0 (1 standard drink = 0.6 oz pur e alcohol) occasional [place] Safety & Environment Answer Date Rec orded Fear of Current or Ex-Partner Not on file Emotionally Abused Not on file 07/15/2023 Physically Abused Not on file 07/15/2023 Sexually Abused Not on file 07/15/2023 Physically or Sexually Abused Not on file Sex and Gender Information Value Date Recorded Sex Assigned at Not on file Gender Identity Not on file Sexual Orientation Not on file Last Filed Vital Signs Vital Sign Reading Time Taken Comments Blood Pressure 147/85 09/03/2024 10:49 AM EDT Pulse 94 09/03/2024 10:49 AM EDT Temperature - - Respiratory Rate - - Oxygen Saturation 99% 09/03/2024 10:49 AM EDT Inhaled Oxygen Concentration - - Weight 82.6 kg (182 lb) 09/03/2024 10:49 AM EDT Height 157.5 cm (5' 2 ) 09/03/2024 10:49 AM EDT Body Mass Index 33.29 09/03/2024 10:49 AM EDT Plan of Treatment Health Maintenance Due Date Last Done Comments CT Colonography 1960 Diabetes: Hemoglobin A1C 1960 FIT-DNA 1960 FOBT 1960 Medicare Annual Wellness (AWV) 1960 Medicare Initial Physical (IPPE) 1960 Sigmoidoscopy 1960 Diabetes: Retinopathy Screening 01/19/1970 Depression Screening 1972 Diabetes: Urine Protein Screening 01/19/1979 Pap Smear 01/19/1981 Adult Tetanus 01/19/1982 Cervical Cancer Screening 01/19/1990 HPV/Cotest 01/19/1990 FIT 02/24/2021 02/25/2020 Mammogram 05/20/2024 05/20/2022 COVID-19 Vaccine ( season) 2024 03/27/2024, 03/17/2023, 03/24/2022, Additional history exists Colonoscopy 04/09/2030 04/09/2020 Colorectal Cancer Screening 04/09/2030 Zoster Vaccines Completed 06/04/2020, 03/23/2020 Influenza Vaccine Completed 03/27/2024, , 03/24/2022, Additional history exists Pneumococcal Vaccine: Pediatrics (0 to 5 Years) and At-Risk Patients (6 to 64 Years) Completed 05/09/2024, 01/06/2009 HIB Vaccines Aged Out No longer eligi ble based on patient's age to complete this topic HPV Vaccines Aged Out No longer eligi ble based on patient's age to complete this topic IPV Vaccines Aged Out No longer eligi ble based on patient's age to complete this topic Meningococcal B Vaccine Aged Out No l onger eligible based on patient's age to complete this topic Meningococcal Vaccine Aged Out No [place] eligible based on patient's age to complete this topic Rotavirus Vaccines Aged Out No longer eligible based on patient's age to complete this topic Care Teams Wealth Management Advisor Relationship Specialty Start Date End Date Shakira Arreaga CNP [facility], [facility] [place] [address] PCP - General Family Medicine 05/31/23
--- OUTSIDE RECORDS SUMMARY | 2024-10-24 13:51 | XMS_ITS | Clinical Summary ---
Author Organization [facility] Address [address] [place] [id number] Care Team Providers Care Artists' Booking Representative Name Role Phone Whitley Shakira Ab MOORE Primary Care Provider [phone] Allergies No known active allergies Medications pantoprazole DR (PROTONIX) 40 mg tablet Take 40 mg by mouth once daily. 1 Active SPIRIVA RESPIMAT 2.5 mcg/actuation inhaler INHALE 2 PUFFS BY MOUTH EVERYDAY 1 Active gabapentin (NEURONTIN) 300 mg capsule Take 300 mg by mouth daily at bedtime. Active Estradiol (VAGIFEM) 10 mcg vaginal tablet Use 10 mcg vaginally two times a week. Active buPROPion XL (WELLBUTRIN XL) 300 mg 24 hr tablet Take 300 mg by mouth once daily. Active fluticasone (FLONASE) 50 mcg/actuation nasal spray Use 1 [place] in each nostril as needed. Active furosemide (LASIX) 40 mg tablet Take 40 mg by mouth once daily. 1 Active levothyroxine (SYNTHROID) 150 mcg tablet Take 150 mcg by mouth once daily. 1 Active metFORMIN (GLUCOPHAGE) 1,000 mg tablet 1 Active traZODone (DESYREL) 50 mg tablet TAKE 1 TABLET BY MOUTH EVERYDAY AT BEDTIME 1 Active ferrous sulfate 325 mg (65 mg iron) tablet Take 1 tablet by mouth twice daily. 1 Active fluconazole (DIFLUCAN) 150 mg tablet TAKE 1 TABLET EVERY 72 HOURS UNTIL SYMPTOMS IMPROVE (MAX 2WK) THEN 1 TABLET ONCE WEEKLY FOR 12 WEEKS 1 Active insulin regular, human (HUMULIN R U-500, CONC, KWIKPEN SUBCUTANEOUS) Inject subcutaneously. Active TRULICITY 1.5 mg/0.5 mL pen injector INJECT SUBCUTANEOUSLY ONCE A WEEK 0 Active cycloSPORINE (RESTASIS MULTIDOSE) 0.05 % drop Use 1 Drop in both eyes twice daily. Active diclofenac (VOLTAREN) 1 % topical gel Apply to affected area four times daily. Active cyanocobalamin , vitamin B-12, (VITAMIN B12 ORAL) Take 1,000 mcg by mouth once daily. Active cholecalcifero l, vitamin D3, (VITAMIN D3 ORAL) Take by mouth once daily. Active CALCIUM ORAL Take by mouth once daily. Active hydrocortisone (ANUSOL-HC) 2.5 % rectal cream APPLY RECTALLY TWICE DAILY FOR 10 DAYS 1 Active albuterol HFA 90 mcg/actuation HFA Inhale 2 Puffs as instructed as needed. Active CICLOPIROX TOPICAL Apply to affected area. Active atorvastatin (LIPITOR) 40 mg tablet Take 40 mg by mouth once daily. Active cephALEXin (KEFLEX) 500 mg capsule 1 Active mupirocin (BACTROBAN) 2 % ointment 1 Active ondansetron (ZOFRAN) 4 mg tablet Take 4 mg by mouth every 6 hours as needed. 1 Active FREESTYLE JEANNE 2 SENSOR kit 2 Active bisacodyl EC (DULCOLAX) 5 mg EC tablet Take 20 mg by mouth. 0 Active venlafaxine ER (EFFEXOR XR) 150 mg 24 hr capsule Take 150 mg by mouth once daily. 2 Active busPIRone (BUSPAR) 15 mg tablet Take 15 mg by mouth twice daily as needed. 2 Active BREZTRI AEROSPHERE 160-9-4.8 mcg/actuation HFA aerosol inhaler INHALE 2 PUFFS TWICE A DAY DIRECTED 30 3 Active dicyclomine (BENTYL) 10 mg capsule Take 10 mg by mouth four times daily. 3 Active losartan (COZAAR) 25 mg tablet Take 1 tablet by mouth every afternoon. 3 Active pravastatin (PRAVACHOL) 40 mg tablet Take 40 mg by mouth daily at bedtime. 3 Active PRIMIDONE ORAL Take 2 tablets by mouth every 12 hours. 3 Active empagliflozin (JARDIANCE) 10 mg tablet Take 10 mg by mouth daily with breakfast. 4 Active MYRBETRIQ 25 mg Tb24 Take 1 tablet by mouth every afternoon. 4 Active triamcinolone acetonide (KENALOG) 0.1 % cream Apply to affected area two times a day. APPLY TO AFFECTED AREA Active MAGNESIUM ORAL Take by mouth once daily. Active cevimeline (EVOXAC) 30 mg capsule Take 30 mg by mouth three times a day. Active Active Problems Problem Noted Date Diagnosed Date Thrombocytopenia 06/26/2023 Diabetic gastroparesis 06/26/2023 Immunizations Immunization Administration Dates Next Due COVID-19 original vaccine, a ge 12+ yr, monovalent (Welliko - PURPLE TOP) 09/09/2020,08/20/2020 hepatitis B (HepB) vaccine, 3-dose series, age 0 yr - 19 yr (ENGERIX B-PEDS, RECOMBIVAX HB-PEDS) 10/10/2017,05/11/2017 hepatitis B (HepB) vaccine, 3-dose series, age 20+ yr (ENGERIX-B, RECOMBIVAX HB) 04/12/2017 influenza (IIV4) vaccine, ag e 6 mo - 64 yr, quadrivalent, PF (AFLURIA, FLUARIX, FLULAVAL, FLUZONE) 04/19/2018,03/21/2017,04/12/2016 influenza (ccIIV4) vaccine, age 6+ mo, quadrivalent, PF (FLUCELVAX) 06/01/2021,02/14/2020,06/05/2019 influenza vaccine, unspecified formulation 05/21,03/23/2014 pneumococcal polysaccharide (PPV23) vaccine, 23 valent (PNEUMOVAX 23) 01/06/2009 zoster (RZV) vaccine, recomb inant (SHINGRIX) 06/04/2020,03/23/2020 Family History Medical History Relation Comments Lung Cancer Father Breast Cancer Maternal Grandmother Diabetes Mother Kidney Disease Mother Arthritis Sister Relation Status Comments Father Maternal Grandmother Mother Sister Social History Tobacco Use Types Packs/Day Years Used Date Smoking Tobacco: Every Day Cigarettes Passive Smoke Exposure: Current Smokeless Tobacco: Never Tobacco Cessation:Ready to Q uit: Not Asked; Counseling Given: Not Answered Alcohol Use Standard Drinks/Week Comments Not Currently 0 (1 standard drink = 0.6 oz pur e alcohol) PHQ-2 Answer Date Recorded PHQ-2 score 0 12/10/2020 Area Deprivation Index Answer Date Fantasma rded National Score (1-100), lower number is lower ri sk 87 06/23/2023 State Score (1-10), lower number is lower risk 8 06/23/2023 Data from: https://www.neighborhoodatlas.medicine.[facility]/. Last address used for calculation [address] [facility] 06/23/2023 Comments No Sex and Gender Information Value Date Recorded Sex Assigned at Not on file Legal Sex Female 2:34 PM EST Gender Identity Not on file Sexual Orientation Not on file Last Filed Vital Signs Vital Sign Reading Time Taken Comments Blood Pressure 143/78 06/28/2024 2:09 PM EST Pulse 86 06/28/2024 2:09 PM EST Temperature 36.4 C (97.5 F) 06/28/2024 2:09 PM EST Respiratory Rate 16 06/28/2024 2:09 PM EST Oxygen Saturation 99% 06/28/2024 2:09 PM EST Inhaled Oxygen Concentration - - Weight 79.5 kg (175 lb 4.3 oz) 06/28/2024 2:09 P M EST Height 157.5 cm (5' 2.01 ) 06/23/2023 1:50 PM ES T Body Mass Index 32.05 06/23/2023 1:50 PM EST Plan of Treatment Health Maintenance Due Date Last Done Comments HbA1C 01/19/1965 Diabetic Foot Exam 01/19/1970 Dilated Retinal Exam 01/19/1970 Urine Albumin:Creatinine Ratio 01/19/1970 Annual PCP Team Chronic Dise ase Visit 01/19/1978 Anxiety Screening 01/19/1978 Depression Screening 01/19/1978 HIV Screening 01/19/1978 Hepatitis C Screening 01/19/1978 LDL Cholesterol 01/19/1978 DTaP,Tdap,Td Vaccine (1 - Tdap) 01/19/1979 Hepatitis A Vaccine (1 of 2 - Risk 2-dose series) 01/19/1979 Cervical Cancer Screening 01/19/1981 CT Colonography 01/19/2005 Colonoscopy 01/19/2005 Fecal Occult Blood 01/19/2005 Sigmoidoscopy 01/19/2005 Mammogram Screening 12/19/2014 12/19/2013, 3 Hepatitis B Vaccine (2 of 3 - Risk 3-dose series) 11/07/2017 10/10/2017, 05/11/2017, 04/12/2017 RSV Vaccine (1 - Risk 60-74 years 1-dose series) 2020 Cologuard (FIT-DNA) 02/24/2023 02/25/2020 Colorectal Cancer Screening 02/24/2023 Shingrix Vaccine Completed 06/04/2020, 03/23/2020 Covid-19 Vaccine Completed 03/27/2024, , 03/24/2022, Additional history exists Influenza Vaccine Completed 03/27/2024, , 03/24/2022, Additional history exists Pneumococcal Vaccine: 50+ Completed 05/09/2024, Insurance [facility] [employer] DUAL COMPLETE HMO POS SNP Care Teams Artists' Booking Representative Relationship Specialty Start Date End Date Shakira Arreaga CNP [address] [place], [place] [id number] PCP - General Internal Medicine 08/01/20
--- OUTSIDE RECORDS SUMMARY | 2024-10-24 13:51 | XMS_ITS | Patient Health Record ---
Author Organization [facility] in [place] Address [address] [place] [address] Care Team Providers [employer] Salesperson Name Role Phone Shakira Higgins Primary Care Provider Anthony Frazier [phone] Allergies Allergen (clinical drug ingredient) Drug/Non Drug Allergy documented on EMR Reaction Allergy Type Onset Date Status capsaicin Capsaicin hands/feet burning Drug Allergy Active trazodone Trazodone itching all over Drug Allergy Active Results Component Value Reference Range Notes CT lung screening low-dose Reviewed date:12/28/2023 09:37:29 AM Interpretation: Performing Lab: Notes/Report: Source Facility: [place] [address] CT Scan Report Signed Patient: RENETTA BARBOSA MR#: [id number] : 1960 Acct:[id number] Age/Sex: 63 / F ADM Date: 12/26/23 Loc: CT Attending Dr: SHAKIRA HIGGINS Ordering Physician: SHAKIRA HIGGINS Date of Service: 12/26/23 Procedure(s): CT lung screening low-dose Accession Number(s): [id number] cc: SHAKIRA HIGGINS [place] [address] Patient Name: RENETTA BARBOSA MRN: [id number] date: 1960 Sex: F Assigned Patient Location: CT Current Patient Location: Accession/Order Number: [id number] Exam Date: 12/26/2023 13:39 Report Date: 12/28/2023 05:30 At the request of: SHAKIRA HIGGINS Procedure: CT lung screening low-dose EXAMINATION: CT lung screening low-dose HISTORY: Wellness Examination Z00.00 COMPARISON: CT lung cancer screening 10/19/2022 TECHNIQUE: Axial, Coronal, and Sagittal images were created without the administration of IV contrast material. Dose reduction techniques were achieved by using automated exposure control and/or adjustment of mA and/or kV according to patient size and/or use of iterative reconstruction technique. FINDINGS: LUNGS: Stable 5 mm nodule within right lower lobe superior segment. Stable mild bronchiectasis within lung bases. No acute infiltrates. PLEURA: No mass, effusion, or pneumothorax. VASCULATURE: No abnormality. CARRIE: No mass or pathologic adenopathy. MEDIASTINUM: No mass or pathologic adenopathy. CARDIAC: No enlargement, pericardial thickening, or pericardial effusion. Coronary Artery calcifications: Coronary calcifications are absent. AORTA: No aneurysm or dissection. CHEST WALL: No mass or axillary adenopathy BONES: No bone lesion or fracture. LIMITED ABDOMEN: No suspicious findings. Limited images of the upper abdomen. OTHER: Negative. CT/CT lung screening low-dose IMPRESSION: 1. Lung-RADS 2- Benign Appearance or Behavior. Nodules with a very low likelihood of becoming a clinically active cancer due to size or lack of growth. Follow-up CT Chest in 1 year. Electronically authenticated by: CHRISTIANO VALERIO Date: 12/28/2023 05:30 Dictated By: Christiano Valerio M.D. Signed By: 12/28/2333 DD/ 9 TD/TT: Tag Meter Operator: [place] [address] CT Scan Report Signed Patient: LOUIS BARBOSA MR#: [id number] : 1960 Acct:[id number] Age/Sex: 63 / F ADM Date: 12/26/23 Loc: CT Attending Dr: SHAKIRA HIGGINS Ordering Physician: SHAKIRA HIGGINS Date of Service: 12/26/23 Procedure(s): CT mai g screening low-dose Accession Number(s): [id number] cc: SHAKIRA HIGGINS [place] [id number] Patient Name: RENETTA BARBOSA MRN: [id number] date: 1960 Sex: F Assigned Patient Location: CT Current Patient Location: Accession/Order Numb er: [id number] Exam Date: 12/26/2023 13:39 Report Date: 12/28/2023 05:30 At the request of: SHAKIRA HIGGINS Procedure: CT lung screening low-dose EXAMINATION: CT lung screening low-dose HISTORY: Wellness Examination Z00.00 COMPARISON: CT lung cancer screening 10/19/2022 TECHNIQUE: Axial, Coronal, and Sagittal images were created without the administration of IV contrast material. Dose reduction techniques were achieved by using automated exposure control and/or adjustment of mA and/or kV according to patient size and/ or use of iterative reconstruction technique. FINDINGS: LUNGS: Stable 5 mm n odule within right lower lobe superior segment. Stable mild bronchiectasis withi n lung bases. No acute infiltrates. PLEURA: No mass, effusion, or pneumothorax. VASCULATURE: No abnormality. CARRIE: No mass or pathologic adenopathy. MEDIASTINUM: No mass or pathologic adenopathy. CARDIAC: No enlargem ent, pericardial thickening, or pericardial effusion. Coronary Artery calcifications: Coronary calcifications are absent. AORTA: No aneurysm o r dissection. CHEST WALL: No mass or axillary adenopathy BONES: No bone lesio n or fracture. LIMITED ABDOMEN: No suspicious findings. Limited images of the upper abdomen. OTHER: Negative. C T/CT lung screening low-dose IMPRESSION: 1. Lung-RADS 2- Jeff gn Appearance or Behavior. Nodules with a very low likelihood of becomi ng a clinically active cancer due to size or lack of growth. Follow-up CT Chest in 1 year. Electronically authenticated by: CHRISTIANO VALERIO Date: 12/28/2023 05:30 Dictated By: Christiano Valerio M.D. Signed By: 12/28/23532 DD/ 9 TD/TT: Tag Meter Operator: AMADO Dailey Reviewed date:12/23/2023 11:37:33 AM Interpretation: Performing Lab: Notes/Report: [facility] , Free T3 2.33 2.18-3.98 pg/mL Performing Lab: see note ML - [facility] LB GLYCOHEMOGLOBIN A1C Reviewed date:12/23/2023 11:37:33 AM Interpretation: Performing Lab: Notes/Report: [facility] , Glycohemoglobin A1C 6.9 4.5-6.2 % ADA RECOMMENDED LIMIT 4.0 - 6.0 > 7.0 ACTION SUGGESTED ADA THERAPEUTIC TARGET < 7.0 Estimated Average Glucose 151 Performing Lab: see note ML - [facility] LB INSULIN Reviewed date:12/23/2023 11:37:33 AM Interpretation: Performing Lab: Notes/Report: [facility] , Insulin 23.1 2.6-24.9 uIU/mL [address] [place], [place] [id number] Performed at: [facility] Painter Ski Edge: Herve Addison PhD, Phone: [phone] Performing Lab: see note [facility] LB LIPID PROFILE Reviewed date:12/23/2023 11:37:33 AM Interpretation: Performing Lab: Notes/Report: [facility] , Triglycerides 193 <=150 mg/dL Cholesterol 164 <=200 mg/dL HDL Cholesterol 44 40-60 mg/dL > or =60 mg/dl - LOW CARDIOVASCULAR RISK <40 mg/dl - HIGH CARDIOVASCULAR RISK LDL Cholesterol Calculated 82.0 <100 mg/dl OPTIMAL 160-189 mg/dl HIGH >190 mg/dl VERY HIGH 100-129 mg/dl NEAR OR ABOVE OPTIMAL 130-159 mg/dl BORDERLINE HIGH VLDL CHOLESTEROL 38.6 Chol HDL Ratio 3.7 7.1 - 11.0 MODERATE RISK 3.3 - 4.4 LOW RISK >11.0 HIGH RISK 4.4 - 7.1 AVERAGE RISK Performing Lab: see note ML - [facility] LB MICROALB CREAT RATIO RANDOM Reviewed date:12/23/2023 11:37:33 AM Interpretation: Performing Lab: Notes/Report: [facility] , Microalbumin Urine Random <1.3 <=30.0 mg/dL Creatinine Urine Random 36.50 20.00-30 0.00 mg/dL Microalbum Creatinine Ratio Ur 35.6 0.0-29.9 mg/g MACROALBUMINURIA >300 MG/G NO MICROALBUMINURIA 0-29 MG/G CLINICAL MICROALBUMINURIA 30-300 MG/G Performing Lab: see note ML - [facility] LB PROF 14(COMP METB) Reviewed date:12/23/2023 11:37:33 AM Interpretation: Performing Lab: Notes/Report: [facility] , Sodium 138 136-145 mmol/L Potassium 4.0 3.5-5.1 mmol/L Chloride 100 98-107 mmol/L Carbon Dioxide 27.4 21.0-32.0 mmol/L Anion Gap 14.6 Glucose 144 74-106 mg/dL Blood Urea Nitrogen 11.0 7.0-18.0 mg/dL Creatinine 0.96 0.55-1.02 mg/dL Estimated GFR ( Vicenta >60 >=60 Estimated GFR (Non- Hien 59 >=60 BUN Creatinine Ratio 11.5 Calcium 9.0 8.5-10.1 mg/dL Bilirubin Total 0.5 0.2-1.0 mg/dL Aspartate Amino Transferase 20 15-37 U/L Alanine Aminotransferase 28 14-59 U/L Alkaline Phosphatase 122 46-116 U/L Total Protein 7.6 6.4-8.2 g/dL Albumin Level 3.9 3.4-5.0 g/dL Globulin 3.7 Albumin Globulin Ratio 1.1 Performing Lab: see note ML - [facility] LB T4 Reviewed date:12/23/2023 11:37:33 AM Interpretation: Performing Lab: Notes/Report: [facility] , T4 Thyroxine 13.10 4.80-13.90 ug/dL Performing Lab: see note ML - [facility] LB TSH Reviewed date:12/23/2023 11:37:33 AM Interpretation: Performing Lab: Notes/Report: [facility] , Thyroid Stimulating Hormone 0.052 0.358-3.740 uIU/mL Performing Lab: see note ML - [facility] LB XR foot LT min 3V Reviewed date:12/22/2023 04:37:59 PM Interpretation: Performing Lab: Notes/Report: Source Facility: [facility] [place] [address] [place] [address] XRay Report Signed Patient: RENETTA BARBOSA MR#: [id number] : 1960 Acct:[id number] Age/Sex: 63 / F ADM Date: 12/22/23 Loc: LAB Attending Dr: SHAKIRA HIGGINS Ordering Physician: SHAKIRA HIGGINS Date of Service: 12/22/23 Procedure(s): XR foot LT min 3V Accession Number(s): [id number] cc: SHAKIRA HIGGINS [place] [address] Patient Name: RENETTA BARBOSA MRN: [id number] date: 1960 Sex: F Assigned Patient Location: LAB Current Patient Location: LAB Accession/Order Number: [id number] Exam Date: 12/22/2023 15:45 Report Date: 12/22/2023 16:14 At the request of: SHAKIRA HIGGINS Procedure: XR foot LT min 3V PROCEDURE: XR foot LT min 3V HISTORY: Left Foot Pain M79.672 ; injured one week ago COMPARISON: None. FINDINGS: BONES:Transverse fracture through neck of fourth metatarsal with minimal lateral displacement. Comminuted fracture of the 5th metatarsal mid and distal diaphysis with mild medial medial displacement. No intra-articular extension involving the fourth or 5th metatarsal. SOFT TISSUES:Lateral soft tissue swelling. No radiopaque or body. EFFUSION:None visible. OTHER: Negative. XR/XR foot LT min 3V IMPRESSION: 1. Acute fractures of the fourth and 5th metatarsals. Electronically authenticated by: CHRISTIANO VALERIO Date: 12/22/2023 16:14 Dictated By: Christiano Valerio M.D. Signed By: 12/22/23 1616 DD/ 1614 TD/TT: Tag Meter Operator: [place] [address] XRay Report Signed Patient: LOUIS BARBOSA MR#: [id number] : 1960 Acct:[id number] Age/Sex: 63 / F ADM Date: 12/22/23 Loc: LAB Attending Dr: SHAKIRA HIGGINS Ordering Physician: SHAKIRA HIGGINS Date of Service: 12/22/23 Procedure(s): XR freddie t LT min 3V Accession Number(s): [id number] cc: SHAKIRA HIGGINS [place] [address] Patient Name: RENETTA BARBOSA MRN: [id number] date: 1960 Sex: F Assigned Patient Location: LAB Current Patient Loca tion: LAB Accession/Order Numb er: [id number] Exam Date: 12/22/2023 15:45 Report Date: 12/22/2023 16:14 At the request of: SHAKIRA HIGGINS Procedure: XR foot L T min 3V PROCEDURE: XR foot L T min 3V HISTORY: Left Foot P ain M79.672 ; injured one week ago COMPARISON: None. FINDINGS: BONES:Transverse fra cture through neck of fourth metatarsal with minimal lateral displacement . Comminuted fracture of the 5th metatarsal mid and distal diaphysis with mild medial medial displacement. No intra-articular extension involving the fourth or 5th metatarsal. SOFT TISSUES:Lateral soft tissue swelling. No radiopaque or body. EFFUSION:None visible. OTHER: Negative. X R/XR foot LT min 3V IMPRESSION: 1. Acute fractures o f the fourth and 5th metatarsals. Electronically authenticated by: CHRISTIANO VALERIO Date: 12/22/2023 16:14 Dictated By: Christiano Valerio M.D. Signed By: 12/22/231615 DD/ 13 TD/TT: Tag Meter Operator: XR foot LT min 3V Reviewed date:02/27/2024 09:31:50 AM Interpretation: Performing Lab: Notes/Report: Source Facility: [place] [address] [place] [address] XRay Report Signed Patient: RENETTA BARBOSA MR#: [id number] : 1960 Acct:[id number] Age/Sex: 63 / F ADM Date: 12/27/23 Loc: EC Attending Dr: Jv Rodriguez Ordering Physician: Jv Rodriguez Date of Service: 12/27/23 Procedure(s): XR foot LT min 3V Accession Number(s): [id number] cc: SHAKIRA HIGGINS ; Jv Rodriguez [place] [id number] Patient Name: RENETTA BARBOSA MRN: [id number] date: 1960 Sex: F Assigned Patient Location: Current Patient Location: CT Accession/Order Number: [id number] Exam Date: 12/27/2023 10:27 Report Date: 12/28/2023 13:16 At the request of: JV RODRIGUEZ Procedure: XR foot LT min 3V PROCEDURE: XR foot LT min 3V HISTORY: LEFT FOOT PAIN ; follow-up fractures COMPARISON: XR foot left 12/22/2023 FINDINGS: BONES:Stable minimally/fractures involving the fourth and 5th metatarsals with interval increased density of the fracture lines and mild callus formation along the margins. SOFT TISSUES:No visible soft tissue swelling. EFFUSION:None visible. OTHER: Negative. XR/XR foot LT min 3V IMPRESSION: 1. Right fourth and 5th metatarsal fractures with stable alignment and ongoing bone healing. Electronically authenticated by: CHRISTIANO VALERIO Date: 12/28/2023 13:16 Dictated By: Christiano Valerio M.D. Signed By: 12/28/23 1318 DD/ 1316 TD/TT: Tag Meter Operator: [place] [address] XRay Report Signed Patient: LOUIS BARBOSA MR#: [id number] : 1960 Acct:[id number] Age/Sex: 63 / F ADM Date: 12/27/23 Loc: EC Attending Dr: Gauri Rodriguez Ordering Physician: Jv Rodriguez Date of Service: 12/27/23 Procedure(s): XR freddie t LT min 3V Accession Number(s): [id number] cc: SHAKIRA HIGGINS ; Jv Rodriguez [place] [id number] Patient Name: RENETTA BARBOSA MRN: [id number] date: 1960 Sex: F Assigned Patient Location: EC Current Patient Loca tion: CT Accession/Order Numb er: [id number] Exam Date: 12/27/2023 10:27 Report Date: 12/28/2023 13:16 At the request of: JV RODRIGUEZ Procedure: XR foot L T min 3V PROCEDURE: XR foot L T min 3V HISTORY: LEFT FOOT P AIN ; follow-up fractures COMPARISON: XR foot left 12/22/2023 FINDINGS: BONES:Stable minimally/fractures involving the fourth and 5th metatarsals with interval increased density of the fracture lines and mild callus formation along the margins. SOFT TISSUES:No visi ble soft tissue swelling. EFFUSION:None visible. OTHER: Negative. X R/XR foot LT min 3V IMPRESSION: 1. Right fourth and 5th metatarsal fractures with stable alignment and ongoing bone healing. Electronically authenticated by: CHRISTIANO VALERIO Date: 12/28/2023 13:16 Dictated By: Christiano Valerio M.D. Signed By: 12/28/23 1318 DD/ 1316 TD/TT: Tag Meter Operator: CT FOOT LT WO CON Reviewed date:02/27/2024 09:31:50 AM Interpretation: Performing Lab: Notes/Report: Source Facility: [place] [address] CT Scan Report Signed Patient: RENETTA BARBOSA MR#: [id number] : 1960 Acct:[id number] Age/Sex: 63 / F ADM Date: 01/03/24 Loc: CT Attending Dr: Jv Rodriguez Ordering Physician: Jv Rodriguez Date of Service: 01/03/24 Procedure(s): CT foot LT wo con Accession Number(s): [id number] cc: SHAKIRA HIGGINS [place] [address] Patient Name: RENETTA BARBOSA MRN: [id number] date: 1960 Sex: F Assigned Patient Location: CT Current Patient Location: VC Accession/Order Number: [id number] Exam Date: 01/03/2024 10:15 Report Date: 01/03/2024 15:39 At the request of: JV RODRIGUEZ Procedure: CT foot LT wo con EXAMINATION: CT foot LT wo con HISTORY: Lisfranc Fracture Left COMPARISON: 12/27/2023 TECHNIQUE: Multi-planar CT images were created without IV contrast. Dose reduction techniques were achieved by using automated exposure control and/or adjustment of mA and/or kV according to patient size and/or use of iterative reconstruction technique. FINDINGS: BONES: Contour deformities consistent with a subtle nondisplaced nonacute fractures involving the neck of the third and fourth metatarsals. There is a complex fracture involving the diaphysis and neck of the fifth metatarsal. No significant bone formation is observed. No dislocation. There is normal alignment of the tarsometatarsal joints with no lateral subluxation of the forefoot in relation to the midfoot. SOFT TISSUES: Negative. No visible soft tissue swelling. EFFUSION: None visible. OTHER: Negative. CT/CT foot LT wo con IMPRESSION: Nondisplaced fractures involving the third fourth and fifth metatarsals detailed above No tarsal metatarsal dislocation observed Electronically authenticated by: KAILEE AGUSTIN Date: 01/03/2024 15:39 Dictated By: Kailee Agustin M.D. Signed By: 01/03/24 1542 DD/ 1539 TD/TT: Tag Meter Operator: [place] [address] CT Scan Report Signed Patient: LOUIS BARBOSA MR#: [id number] : 1960 Acct:[id number] Age/Sex: 63 / F ADM Date: 01/03/24 Loc: CT Attending Dr: Gauri Rodriguez Ordering Physician: Jv Rodriguez Date of Service: 01/03/24 Procedure(s): CT freddie t LT wo con Accession Number(s): [id number] cc: SHAKIRA HIGGINS [place] [address] Patient Name: RENETTA BARBOSA MRN: [id number] date: 1960 Sex: F Assigned Patient Location: CT Current Patient Loca tion: VC Accession/Order Numb er: [id number] Exam Date: 01/03/2024 10:15 Report Date: 01/03/2024 15:39 At the request of: JV ROBERT Procedure: CT foot L T wo con EXAMINATION: CT foot LT wo con HISTORY: Lisfranc Fracture Left COMPARISON: 12/27/2023 TECHNIQUE: Multi-prasanna edu CT images were created without IV contrast. Dose reduction techniques were achieved by using automated exposure control and/or adjustment of mA and /or kV according to patient size and/or use of iterative reconstruction technique. FINDINGS: BONES: Contour deformities consistent with a subtle nondisplaced nonacute fractures involving the neck of the third and fourth metatarsals. There is a complex fracture involving the diaphysis and neck of the fifth metatarsal. No significant bone formation is observed. No dislocation. There is normal alignment of the tarsometatarsal joints with no lateral subluxation of the forefoot in relation to the midfoot. SOFT TISSUES: Negati ve. No visible soft tissue swelling. EFFUSION: None visible. OTHER: Negative. C T/CT foot LT wo con IMPRESSION: Nondisplaced fractur es involving the third fourth and fifth metatarsals detailed above No tarsal metatarsal dislocation observed Electronically authenticated by: KAILEE AGUSTIN Date: 01/03/2024 15:39 Dictated By: Ramón Agustin M.D. Signed By: 01/03/24 1542 DD/ 1539 TD/TT: Tag Meter Operator: right upper quadrant Reviewed date:01/04/2024 08:58:53 AM Interpretation: Performing Lab: Notes/Report: Source Facility: [facility]-[address] [place] [address] [place] [address] Ultrasound Report Signed Patient: RENETTA BARBOSA MR#: [id number] : 1960 Acct:[id number] Age/Sex: 63 / F ADM Date: 01/03/24 Loc: US Attending Dr: SHAKIRA HIGGINS Ordering Physician: SHAKIRA HIGGINS Date of Service: 01/03/24 Procedure(s): right upper quadrant Accession Number(s): [id number] cc: SHAKIRA HIGGINS [address] [address] Patient Name: RENETTA BARBOSA MRN: [facility]:[id number] date: 1960 Sex: F Assigned Patient Location: Current Patient Location: Accession/Order Number: [id number] Exam Date: 01/03/2024 09:30 Report Date: 01/04/2024 06:08 At the request of: SHAKIRA HIGGINS Procedure: US right upper quadrant EXAMINATION: US right upper quadrant HISTORY: Enlarged Liver R16.0 COMPARISON: No relevant comparison available. TECHNIQUE: Transabdominal evaluation of the right upper quadrant. FINDINGS: LIVER: Nodular slightly heterogeneous liver. 20.7 cm in greatest dimension. PORTAL VEIN: Duplex Doppler demonstrates normal hepatopetal flow pattern with flow velocity averaging 34 cm/s. GALLBLADDER: Cholecystectomy. BILIARY: No abnormal dilation or stones. Common bile duct diameter is within normal limits. PANCREAS: No visible mass, abnormal atrophy, or duct dilation. KIDNEY: Mild cortical thinning. No hydronephrosis. No visible mass or stones. Size: 4.0 x 4.6 x 4.6 cm US/US right upper quadrant IMPRESSION: 1. Slightly nodular liver margins. Cirrhosis? 2. Slightly prominent liver; nonspecific. Electronically authenticated by: CHRISTIANO VALERIO Date: 01/04/2024 06:08 Dictated By: Christiano Valerio M.D. Signed By: 01/04/24610 DD/ 7 TD/TT: Tag Meter Operator: [place] [address] Ultrasound Report Signed Patient: LOUIS BARBOSA MR#: [id number] : 1960 Acct:[id number] Age/Sex: 63 / F ADM Date: 01/03/24 Loc: US Attending Dr: SHAKIRA HIGGINS Ordering Physician: SHAKIRA HIGGINS Date of Service: 01/03/24 Procedure(s): US rig ht upper quadrant Accession Number(s): [id number] cc: SHAKIRA HIGGINS [address] [address] Patient Name: RENETTA BARBOSA MRN: [id number] date: 1960 Sex: F Assigned Patient Location: US Current Patient Location: Accession/Order Numb er: [id number] Exam Date: 01/03/2024 09:30 Report Date: 01/04/2024 06:08 At the request of: SHAKIRA HIGGINS Procedure: US right upper quadrant EXAMINATION: US righ t upper quadrant HISTORY: Enlarged Li jose R16.0 COMPARISON: No relev ant comparison available. TECHNIQUE: Transabdo grupo evaluation of the right upper quadrant. FINDINGS: LIVER: Nodular sligh tly heterogeneous liver. 20.7 cm in greatest dimension. PORTAL VEIN: Duplex Doppler demonstrates normal hepatopetal flow pattern with flow velocity averag ing 34 cm/s. GALLBLADDER: Cholecystectomy. BILIARY: No abnormal dilation or stones. Common bile duct diameter is within normal limits. PANCREAS: No visible mass, abnormal atrophy, or duct dilation. KIDNEY: Mild cortica l thinning. No hydronephrosis. No visible mass or stones. Size: 4.0 x 4.6 x 4.6 cm U S/US right upper quadrant IMPRESSION: 1. Slightly nodular liver margins. Cirrhosis? 2. Slightly prominen t liver; nonspecific. Electronically authenticated by: CHRISTIANO VALERIO Date: 01/04/2024 06:08 Dictated By: Christiano Valerio M.D. Signed By: 01/04/24610 DD/ TD/TT: Tag Meter Operator: Triiodothyronine (T3) Reviewed date:02/27/2024 01:39:03 PM Interpretation: Performing Lab: Notes/Report: [facility] , Triiodothyronine (T3) 96 71-180 ng/dL [address] [place], [place] [id number] Painter Ski Edge: Herve Addison PhD, Phone: [phone] Performed at: [facility] Performing Lab: see note [facility] - [facility] US abdomen limited Reviewed date:04/27/2024 10:06:44 AM Interpretation: Performing Lab: Notes/Report: Source Facility: [place] [address] [place] [address] Ultrasound Report Signed Patient: RENETTA BARBOSA MR#: [id number] : 1960 Acct:[id number] Age/Sex: 64 / F ADM Date: 04/26/24 Loc: US Attending Dr: YOLY FUNES Ordering Physician: YOLY FUNES Date of Service: 04/26/24 Procedure(s): US abdomen limited Accession Number(s): [id number] cc: YOLY FUNES ; SHAKIRA HIGGINS [place] [address] Patient Name: RENETTA BARBOSA MRN: [id number] date: 1960 Sex: F Assigned Patient Location: US Current Patient Location: US Accession/Order Number: [id number] Exam Date: 04/26/2024 10:43 Report Date: 04/26/2024 14:22 At the request of: YOLY FUNES Procedure: US abdomen limited EXAMINATION: US abdomen limited HISTORY: 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 FINDINGS: The spleen is normal in size, contour and echotexture measuring 13.4 x 9.6 x 6.5 cm. No focal splenic mass is observed. No ascites US/US abdomen limited IMPRESSION: Normal spleen Electronically authenticated by: KAILEE AGUSTIN Date: 04/26/2024 14:22 Dictated By: Kailee Agustin M.D. Signed By: 04/26/24 1425 DD/ 142 TD/TT: Tag Meter Operator: [place] [address] Ultrasound Report Signed Patient: LOUIS BARBOSA MR#: [id number] : 1960 Acct:[id number] Age/Sex: 64 / F ADM Date: 04/26/24 Loc: US Attending Dr: YOLY FUNES Ordering Physician: YOLY FUNES Date of Service: 04/26/24 Procedure(s): US abd omen limited Accession Number(s): [id number] cc: YOLY FUNES ; SHAKIRA HIGGINS [place] [id number] Patient Name: RENETTA BARBOSA MRN: [id number] date: 1960 Sex: F Assigned Patient Location: US Current Patient Loca tion: US Accession/Order Numb er: [id number] Exam Date: 10:43 Report Date: 04/26/2024 14:22 At the request of: YOLY FUNES Procedure: US abdome n limited EXAMINATION: US abdo men limited HISTORY: THROMBOCYTO PENIA DUE TO HYPERSPLENISM D69.59, D 73.1 COMPARISON: No relev ant comparison available. FINDINGS: The spleen is normal in size, contour and echotexture measuring 13.4 x 9.6 x 6.5 cm. No focal spl enic mass is observed. No ascites U S/US abdomen limited IMPRESSION: Normal spleen Electronically authenticated by: KAILEE AGUSTIN Date: 04/26/2024 14:22 Dictated By: Ramón Agustin M.D. Signed By: 04/26/24 142 DD/ 142 TD/TT: Tag Meter Operator: XR foot LT min 3V Reviewed date:02/27/2024 09:31:50 AM Interpretation: Performing Lab: Notes/Report: Source Facility: [facility] [place] [address] XRay Report Signed Patient: RENETTA BARBOSA MR#: [id number] : 1960 Acct:[id number] Age/Sex: 64 / F ADM Date: 01/31/24 Loc: EC Attending Dr: Anthony Frazier D.P.M. Ordering Physician: Anthony Frazier D.P.M. Date of Service: 01/31/24 Procedure(s): XR foot LT min 3V Accession Number(s): [id number] cc: SHAKIRA HIGGINS ; Anthony Frazier D.P.M. [facility] [place] [id number] Patient Name: RENETTA BARBOSA MRN: [facility]:[id number] date: 1960 Sex: F Assigned Patient Location: Current Patient Location: LAB Accession/Order Number: [id number] Exam Date: 01/31/2024 13:36 Report Date: 02/01/2024 16:08 At the request of: ANTHONY FRAZIER Procedure: XR foot LT min 3V PROCEDURE: XR foot LT min 3V COMPARISON: 12/27/2023 HISTORY: LEFT FOOT PAIN FINDINGS: BONES:Stable healing fracture neck of the fourth metatarsal. Stable healing complex displaced fracture involving the diaphysis and neck of the fifth metatarsal. Interval periosteal reaction and bone formation with partial bony bridging. No new fracture or dislocation. Moderate enthesopathic spurring of the calcaneus SOFT TISSUES:Lateral forefoot soft tissue swelling EFFUSION:None visible. OTHER: Negative. XR/XR foot LT min 3V IMPRESSION: Stable healing fourth and fifth metatarsal fractures Electronically authenticated by: KAILEE AGUSTIN Date: 02/01/2024 16:08 Dictated By: Kailee Agustin M.D. Signed By: 02/01/24 1611 DD/ 1608 TD/TT: Tag Meter Operator: [place] [address] XRay Report Signed Patient: LOUIS BARBOSA MR#: [id number] : 1960 Acct:[id number] Age/Sex: 64 / F ADM Date: 01/31/24 Loc: EC Attending Dr: Anthony Frazier D.P.M. Ordering Physician: Anthony Frazier D.P.M. Date of Service: 01/31/24 Procedure(s): XR freddie t LT min 3V Accession Number(s): [id number] cc: SHAKIRA HIGGINS ; Anthony Frazier D.P.M. [address] [address] Patient Name: RENETTA BARBOSA MRN: [facility]:[id number] date: 1960 Sex: F Assigned Patient Location: Current Patient Loca tion: LAB Accession/Order Numb er: [id number] Exam Date: 01/31/2024 13:36 Report Date: 02/01/2024 16:08 At the request of: ANTHONY FRAZIER Procedure: XR foot L T min 3V PROCEDURE: XR foot L T min 3V COMPARISON: 12/27/2023 HISTORY: LEFT FOOT PAIN FINDINGS: BONES:Stable healing fracture neck of the fourth metatarsal. Stable healing complex displaced fracture involving the diaphysis and neck of the fifth metatarsal. Interval periosteal reaction and bone formation with partial bony bridging. No new fra cture or dislocation. Moderate enthesopathic spurring of the calcaneus SOFT TISSUES:Lateral forefoot soft tissue swelling EFFUSION:None visible. OTHER: Negative. X R/XR foot LT min 3V IMPRESSION: Stable healing fourt h and fifth metatarsal fractures Electronically authenticated by: KAILEE AGUSTIN Date: 02/01/2024 16:08 Dictated By: Ramón Agustin M.D. Signed By: 02/01/24 1611 DD/ 1608 TD/TT: Tag Meter Operator: SEGMENTAL PRESSURES Reviewed date:02/27/2024 09:31:50 AM Interpretation: Performing Lab: Notes/Report: Source Facility: [place] [address] Vein Report Signed Patient: RENETTA BARBOSA MR#: [id number] : 1960 Acct:[id number] Age/Sex: 63 / F ADM Date: 01/03/24 Loc: VC Attending Dr: Jv Rodriguez Ordering Physician: Jv Rodriguez Date of Service: 01/03/24 Procedure(s): VC SEGMENTAL PRESSURES Accession Number(s): [id number] cc: SHAKIRA HIGGINS [place] [address] Patient Name: RENETTA BARBOSA MRN: [id number]:[id number] date: 1960 Sex: F Assigned Patient Location: Current Patient Location: Accession/Order Number: [id number] Exam Date: 01/03/2024 08:30 Report Date: 01/03/2024 12:32 At the request of: JV RODRIGUEZ Procedure: VC SEGMENTAL PRESSURES EXAM: VC SEGMENTAL PRESSURES. HISTORY: R09.89, peripheral vascular disease. COMPARISON: None. TECHNIQUE: Resting ABIs and segmental limb pressures. FINDINGS: Right resting NEO 1.2. Left resting NEO 1.15. Waveforms are multiphasic. No pressure gradients were noted. Bilateral toe brachial indices are normal. VEIN/VC SEGMENTAL PRESSURES IMPRESSION: Normal resting ABIs. Normal toe brachial indices. No pressure gradients noted. Electronically authenticated by: Taye SHAVER Date: 01/03/2024 12:32 Dictated By: Taye Shaver M.D. Signed By: 01/03/24 1235 DD/ 1232 TD/TT: Tag Meter Operator: [place] [address] Vein Report Signed Patient: LOUIS BARBOSA MR#: [id number] : 1960 Acct:[id number] Age/Sex: 63 / F ADM Date: 01/03/24 Loc: VC Attending Dr: Gauri Rodriguez Ordering Physician: Jv Rodriguez Date of Service: 01/03/24 Procedure(s): VC SEGMENTAL PRESSURES Accession Number(s): [id number] cc: SHAKIRA HIGGINS ; Jv Rodriguez [place] [id number] Patient Name: RENETTA BARBOSA MRN: [facility]:[id number] date: 1960 Sex: F Assigned Patient Location: VC Current Patient Loca tion: VC Accession/Order Numb er: [id number] Exam Date: 01/03/2024 08:30 Report Date: 01/03/2024 12:32 At the request of: JV RODRIGUEZ Procedure: VC SEGMEN KUNAL PRESSURES EXAM: VC SEGMENTAL PRESSURES. HISTORY: R09.89, peripheral vascular disease. COMPARISON: None. TECHNIQUE: Resting A BIs and segmental limb pressures. FINDINGS: Right rest ing NEO 1.2. Left resting NEO 1.15. Waveforms are multiphasic. No pres sure gradients were noted. Bilateral toe brachial indices are normal. VEIN/VC SEGMENTAL PRESSURES IMPRESSION: Normal resting ABIs. Normal toe brachial indices. No pressure gradients noted. Electronically authenticated by: Taye SHAVER Date: 01/03/2024 12:32 Dictated By: Taye Shaver M.D. Signed By: 01/03/24 1235 DD/ 1232 TD/TT: Tag Meter Operator: VITAMIN D 25 OH Reviewed date:12/23/2023 11:37:33 AM Interpretation: Performing Lab: Notes/Report: [facility] , Vitamin D 55.7 20-<30 ng/mL Vit D insufficient <20 ng/mL Vit D deficient >100 ng/mL Potential Toxicity 30-100 ng/mL Vit D sufficient Performing Lab: see note ML - [facility] LB PHOSPHORUS Reviewed date:12/23/2023 11:37:33 AM Interpretation: Performing Lab: Notes/Report: [facility] , Phosphorus 3.9 2.6-4.7 mg/dL Performing Lab: see note ML - [facility] LB CBC AUTO DIFF Reviewed date:12/23/2023 11:37:33 AM Interpretation: Performing Lab: Notes/Report: [facility] , White Blood Count 6.5 4.0-11.0 10 3/uL Red Blood Count 5.32 4.20-5.40 10 6/uL Hemoglobin 13.4 12.0-16.0 g/dL Hematocrit 43.0 36.0-48.0 % Mean Corpuscular Volume 80.8 81.0-99.0 fL Mean Corpuscular Hemoglobin 25.2 26.7-34.0 pg Mean Corpuscular HGB Conc 31.2 29.9-35.2 g/dL Red Cell Distribution Width 17.6 11.0-15.0 % Platelet Count 155 150-450 10 3/uL Mean Platelet Volume 10.9 9.5-13.5 fL Neutrophils Percent Auto 70.9 43.0-75.0 % Lymphocytes Percent Auto 19.4 20.5-60.0 % Monocytes Percent Auto 7.7 1.7-12.0 % Eosinophils Percent Auto 1.2 0.9-7.0 % Basophils Percent Auto 0.5 0.2-2.0 % Immature Granulocytes Pct Auto 0.3 0.0-0.5 % Neutrophils Absolute Auto 4.6 1.4-6.5 10 3/uL Lymphocytes Absolute Auto 1.3 1.2-3.8 10 3/uL Monocytes Absolute Auto 0.5 0.3-0.8 10 3/uL Eosinophils Absolute Auto 0.1 0.0-0.7 10 3/uL Basophils Absolute Auto 0.0 0.0-0.1 10 3/uL Immature Granulocytes Abs Auto 0.02 0.00-0.03 10 3/uL Performing Lab: see note ML - [facility] [place] [facility] LB XR foot LT min 3V Reviewed date:04/27/2024 10:06:44 AM Interpretation: Performing Lab: Notes/Report: Source Facility: [facility]-[address] [place] [address] XRay Report Signed Patient: RENETTA BARBOSA MR#: [id number] : 1960 Acct:[id number] Age/Sex: 64 / F ADM Date: 02/29/24 Loc: RAD Attending Dr: Anthony Frazier D.P.M. Ordering Physician: Anthony Frazier D.P.M. Date of Service: 02/29/24 Procedure(s): XR foot LT min 3V Accession Number(s): [id number] cc: SHAKIRA HIGGINS ; Anthony Frazier D.P.M. [place] [id number] Patient Name: RENETTA BAROBSA MRN: [id number] date: 1960 Sex: F Assigned Patient Location: [facility] Current Patient Location: Accession/Order Number: [id number] Exam Date: 02/29/2024 13:21 Report Date: 03/01/2024 08:22 At the request of: ANTHONY FRAZIER Procedure: XR foot LT min 3V PROCEDURE: XR foot LT min 3V HISTORY: LEFT FOOT PAIN COMPARISON: XR foot left 01/31/2024 FINDINGS: BONES:Increasing sclerosis and callus formation along margins of the distal fourth metatarsal and mid 5th metatarsal. Stable alignment. Mild degenerative changes the midfoot. Degenerative enthesopathic spurring of the calcaneus. SOFT TISSUES:No visible soft tissue swelling. EFFUSION:None visible. OTHER: Negative. XR/XR foot LT min 3V IMPRESSION: 1. Stable alignment and ongoing bone healing of the nondisplaced fracture of the fourth metatarsal neck. 2. Stable alignment and ongoing bone healing of comminuted 5th metatarsal fracture. Electronically authenticated by: CHRISTIANO VALERIO Date: 03/01/2024 08:22 Dictated By: Christiano Valerio M.D. Signed By: 03/01/24823 DD/ 1 TD/TT: Tag Meter Operator: [place] [address] XRay Report Signed Patient: LOUIS BARBOSA MR#: [id number] : 1960 Acct:[id number] Age/Sex: 64 / F ADM Date: 02/29/24 Loc: RAD Attending Dr: Anthony Frazier D.P.M. Ordering Physician: Anthony Frazier D.P.M. Date of Service: 02/29/24 Procedure(s): XR freddie t LT min 3V Accession Number(s): [id number] cc: SHAKIRA HIGGINS ; Anthony Frazier D.P.M. [place] [address] Patient Name: RENETTA BARBOSA MRN: [id number] date: 1960 Sex: F Assigned Patient Location: [facility] Current Patient Location: Accession/Order Numb er: [id number] Exam Date: 13:21 Report Date: 03/01/2024 08:22 At the request of: ANTHONY FRAZIER Procedure: XR foot L T min 3V PROCEDURE: XR foot L T min 3V HISTORY: LEFT FOOT PAIN COMPARISON: XR foot left 01/31/2024 FINDINGS: BONES:Increasing sclerosis and callus formation along margins of the distal fourth metatarsal an d mid 5th metatarsal. Stable alignment. Mild degenerative changes the midfoot. Degenerative enthesopathic spurring of the calcaneus. SOFT TISSUES:No visi ble soft tissue swelling. EFFUSION:None visible. OTHER: Negative. X R/XR foot LT min 3V IMPRESSION: 1. Stable alignment and ongoing bone healing of the nondisplaced fracture of the fourth metatarsa l neck. 2. Stable alignment and ongoing bone healing of comminuted 5th metatarsal fracture. Electronically authenticated by: CHRISTIANO VALERIO Date: 03/01/2024 08:22 Dictated By: Christiano Valerio M.D. Signed By: 03/01/24823 DD/ 1 TD/TT: Tag Meter Operator: XR chest 1V Reviewed date:02/27/2024 09:31:50 AM Interpretation: Performing Lab: Notes/Report: Source Facility: [place] [address] XRay Report Signed Patient: RENETTA BARBOSA MR#: [id number] : 1960 Acct:[id number] Age/Sex: 64 / F ADM Date: 02/25/24 Loc: ER Attending Dr: Ordering Physician: Jake Flowers M.D. Date of Service: 02/25/24 Procedure(s): XR chest 1V Accession Number(s): [id number] cc: SHAKIRA HIGGINS ; Jake Flowers M.D. [place] [address] Patient Name: RENETTA BARBOSA MRN: [id number] date: 1960 Sex: F Assigned Patient Location: ER Current Patient Location: ED.MAIN Accession/Order Number: [id number] Exam Date: 02/25/2024 11:27 Report Date: 02/25/2024 13:25 At the request of: JAKE FLOWERS Procedure: XR chest 1V EXAM: XR chest 1V at 1119 hours HISTORY: weak COMPARISON: 03/16/2021 TECHNIQUE: AP upright portable chest x-ray FINDINGS: The previous identified infiltrates in the lungs have cleared. The left lung base is partially obscured, and appears to be related to the patient's body habitus. There is no clear evidence of a focal infiltrate, effusion or pneumothorax. The heart is at the upper limits of normal in size, and the vasculature is not distended. The osseous structures are grossly intact. XR/XR chest 1V IMPRESSION: Interval clearing of the lungs. There is no apparent acute infiltrate or cardiac decompensation at this time. Electronically authenticated by: ANTHONY LEVI Date: 02/25/2024 13:25 Dictated By: Anthony Levi M.D. Signed By: 02/25/24 1327 DD/ 1325 TD/TT: Tag Meter Operator: [place] [address] XRay Report Signed Patient: LOUIS BARBOSA MR#: [id number] : 1960 Acct:[id number] Age/Sex: 64 / F ADM Date: 02/25/24 Loc: ER Attending Dr: Ordering Physician: Jake Flowers M.D. Date of Service: 02/25/24 Procedure(s): XR chest 1V Accession Number(s): [id number] cc: SHAKIRA HIGGINS ; Jake Flowers M.D. [place] [address] Patient Name: RENETTA BARBOSA MRN: [id number] date: 1960 Sex: F Assigned Patient Location: ER Current Patient Loca tion: ED.MAIN Accession/Order Numb er: [id number] Exam Date: 11:27 Report Date: 02/25/2024 13:25 At the request of: JAKE FLOWERS Procedure: XR chest 1V EXAM: XR chest 1V at 1119 hours HISTORY: weak COMPARISON: 03/16/2021 TECHNIQUE: AP uprigh t portable chest x-ray FINDINGS: The previo us identified infiltrates in the lungs have cleared. The left lung base is partially obscured, and appears to be related to the patient's body habit us. There is no clear evidence of a focal infiltrate, effusion or pneumoth orax. The heart is at the upper limits of normal in size, and the vasculature is not distended. The osseous structures are grossly intact. X R/XR chest 1V IMPRESSION: Interval clearing of the lungs. There is no apparent acute infiltrate or cardiac decompensati on at this time. Electronically authenticated by: ANTHONY LEVI Date: 02/25/2024 13:25 Dictated By: Terry Levi M.D. Signed By: 02/25/241326 DD/ 1325 TD/TT: Tag Meter Operator: ECG 12 lead Reviewed date:02/27/2024 09:31:50 AM Interpretation: Performing Lab: Notes/Report: Source Facility: [place] [address] [place] [address] Electrocardiograph Report Signed Patient: RENETTA BARBOSA MR#: [id number] : 1960 Acct:[id number] Age/Sex: 64 / F ADM Date: 02/25/24 Loc: ER Attending Dr: Ordering Physician: Jake Flowers M.D. 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 Signed By: 02/26/242052 DD/ 17 TD/TT: Tag Meter Operator: [place] [address] Electrocardiograph Report Signed Patient: LOUIS BARBOSA MR#: [id number] : 1960 Acct:[id number] Age/Sex: 64 / F ADM Date: 02/25/24 Loc: ER Attending Dr: Ordering Physician: Jake Flowers M.D. 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 Signed By: 02/26/242052 DD/ 17 TD/TT: Tag Meter Operator: Ethanol Reviewed date:02/27/2024 09:31:50 AM Interpretation: Performing Lab: Notes/Report: [facility] , Ethanol 4 NOTE: 80 mg/dl is the legal limit for a blood alcohol level Performing Lab: see note ML - [facility] LB Troponin I High Sensitivity Reviewed date:02/27/2024 09:31:50 AM Interpretation: Performing Lab: Notes/Report: [facility] , Troponin I High Sensitivity 7.7 4.0-51.3 pg/mL NOTE: HIGH-SENSITIVITY TROPONIN ASSAY IS NOT INTENDED TO BE WITH OTHER DIAGNOSTIC AND CLINICAL INFORMATION. USED IN ISOLATION BUT SHOULD BE INTERPRETED IN CONJUNCTION CUT-OFF POINTS HAVE BEEN ESTABLISHED BASED ON THE FOURTH REFERENCE LIMIT (URL) OF TROPONIN, DEFINED THE 99TH 99TH PERCENTILE = 51.4 PG/ML DIAGNOSIS. UNIVERSAL DEFINITION OF MYOCARDIAL INFARCTION. THE UPPER PERCENTILE OF cTnI DISTRIBUTION IN A REFERENCE POPULATION, HAS BEEN CONFIRMED THE DECISION THRESHOLD FOR DE Performing Lab: see note ML - [facility] LB Manual Differential Reviewed date:02/27/2024 09:31:50 AM Interpretation: Performing Lab: Notes/Report: [facility] , Segmented Neutrophils % Manual 86.0 43.0-75.0 Band Neutrophils % 4.0 0-5 % Lymphocytes Percent Manual 10.0 20.5-60.0 % Monocytes Percent Manual 0.0 1.7-12.0 % Eosinophils Percent Manual 0.0 0.9-7.0 % Basophils Percent Manual 0.0 0.2-2.0 % Segmented Neut Absolute Manual 5.24 1.4-6.5 10 3/uL Band Neutrophils Absolute 0.2 0.0-0.3 10 3/uL Lymphocytes Absolute Manual 0.61 1.20-3.80 10 3/uL Monocytes Absolute Manual 0.00 0.30-0.80 10 3/uL Eosinophils Absolute Manual 0.00 0.00-0.70 10 3/uL Basophils Abs Manual 0.00 0.00-0.10 1 0 3/uL Performing Lab: see note ML - [facility] UA RANDOM W or MICROSCOPIC Reviewed date:02/27/2024 09:31:50 AM Interpretation: Performing Lab: Notes/Report: [facility] , Color Urine YELLOW YELLOW Clarity Urine CLEAR CLEAR Specific [place] Urine 1.020 1.005-1.025 pH Urine 6.0 5.0-9.0 Protein Urine NEGATIVE NEG/TRACE mg/dL Glucose Urine UA >=1000 NEGATIVE mg/dL Bilirubin Urine NEGATIVE NEGATIVE Ketones Urine NEGATIVE NEGATIVE mg/dL Blood Urine NEGATIVE NEGATIVE Nitrite Urine NEGATIVE NEGATIVE Urobilinogen Urine 1.0 0.2-1.0 EU/dL Leukocyte Esterase Urine NEGATIVE NEGATIVE WBC Urine NONE SEEN NONE SEEN #/HPF RBC Urine NONE SEEN 0-2 #/HPF Bacteria Urine TRACE NONE SEEN #/HPF Mucus Urine SMALL NONE SEEN Squamous Epithelial Cell Urine FEW NONE/RARE #/LPF Crystals Seen? None Seen None Seen #/HPF Cast Seen? NONE SEEN NONE SEEN #/LPF Urine Culture Indicated NO Performing Lab: see note ML - [facility] LB TSH Reviewed date:02/27/2024 09:31:50 AM Interpretation: Performing Lab: Notes/Report: [facility] , Thyroid Stimulating Hormone 0.058 0.358-3.740 uIU/mL Performing Lab: see note ML - [facility] LB T4 Reviewed date:02/27/2024 09:31:50 AM Interpretation: Performing Lab: Notes/Report: [facility] , T4 Thyroxine 9.30 4.80-13.90 ug/dL Performing Lab: see note ML - [facility] LB PROF CHEM 8 (BAS METB) Reviewed date:02/27/2024 09:31:50 AM Interpretation: Performing Lab: Notes/Report: [facility] , Sodium 143 136-145 mmol/L Potassium 3.3 3.5-5.1 mmol/L Chloride 104 98-107 mmol/L Carbon Dioxide 25.4 21.0-32.0 mmol/L Anion Gap 16.9 Glucose 58 74-106 mg/dL Blood Urea Nitrogen 11.0 7.0-18.0 mg/dL Creatinine 0.81 0.55-1.02 mg/dL Estimated GFR ( Vic[place] >60 >=60 mL/min/1.73m 2 Estimated GFR (Non- Hien >60 >=60 mL/min/1.73m 2 BUN Creatinine Ratio 13.6 Calcium 8.9 8.5-10.1 mg/dL Performing Lab: see note ML - [facility] LB MYOGLOBIN Reviewed date:02/27/2024 09:31:50 AM Interpretation: Performing Lab: Notes/Report: [facility] , Myoglobin 280 9-82 ng/mL RESULTS CALLED TO RAO HERNANDEZ RN Performing Lab: see note ML - [facility] LB CPK Reviewed date:02/27/2024 09:31:50 AM Interpretation: Performing Lab: Notes/Report: [facility] , Creatine Kinase 95 26-192 U/L Performing Lab: see note ML - [facility] LB CBC AUTO DIFF Reviewed date:02/27/2024 09:31:50 AM Interpretation: Performing Lab: Notes/Report: [facility] , White Blood Count 6.1 4.0-11.0 10 3/uL Red Blood Count 4.90 4.20-5.40 10 6/uL Hemoglobin 12.6 12.0-16.0 g/dL Hematocrit 40.8 36.0-48.0 % Mean Corpuscular Volume 83.3 81.0-99.0 fL Mean Corpuscular Hemoglobin 25.7 26.7-34.0 pg Mean Corpuscular HGB Conc 30.9 29.9-35.2 g/dL Red Cell Distribution Width 16.8 11.0-15.0 % Platelet Count 126 150-450 10 3/uL Mean Platelet Volume 11.1 9.5-13.5 fL Performing Lab: see note ML - [facility] LB US right upper quadrant Reviewed date:04/27/2024 10:06:44 AM Interpretation: Performing Lab: Notes/Report: Source Facility: [facility]-[address] [place] [address] [place] [address] Ultrasound Report Signed Patient: RENETTA BARBOSA MR#: [id number] : 1960 Acct:[id number] Age/Sex: 64 / F ADM Date: 04/26/24 Loc: US Attending Dr: YOLY FUNES Ordering Physician: YOLY FUNES Date of Service: 04/26/24 Procedure(s): US right upper quadrant Accession Number(s): [id number] cc: YOLY FUNES ; SHAKIRA HIGGINS [place] [address] Patient Name: RENETTA BARBOSA MRN: [id number] date: 1960 Sex: F Assigned Patient Location: Current Patient Location: US Accession/Order Number: [id number] Exam Date: 04/26/2024 10:31 Report Date: 04/26/2024 14:22 At the request of: YOLY FUNES Procedure: US right upper quadrant EXAM: US right upper quadrant HISTORY: Nonalcholic Steatohepatitis, Cirrhosis Of Liver COMPARISON: None. TECHNIQUE: Grayscale, color and Doppler FINDINGS: The liver is prominent in size measuring 19.4 cm in length. Mildly nodular liver contour. No focal hepatic mass. Diffuse increase in hepatic echotexture. Hepatopedal flow in the main portal vein with a velocity of 24 cm/s. The gallbladder is surgically absent. The visualized pancreas is normal The right kidney is normal measuring 10.9 x 5.5 x 4.7 cm US/US right upper quadrant IMPRESSION: Stable nodular echogenic liver Electronically authenticated by: KAILEE AGUSTIN Date: 04/26/2024 14:22 Dictated By: Kailee Agustin M.D. Signed By: 04/26/241423 DD/ 21 TD/TT: Tag Meter Operator: [place] [address] Ultrasound Report Signed Patient: LOUIS BARBOSA MR#: [id number] : 1960 Acct:[id number] Age/Sex: 64 / F ADM Date: 04/26/24 Loc: US Attending Dr: YOLY FUNES Ordering Physician: YOLY FUNES Date of Service: 04/26/24 Procedure(s): US rig ht upper quadrant Accession Number(s): [id number] cc: YOLY FUNES ; SHAKIRA HIGGINS [place] [address] Patient Name: RENETTA BARBOSA MRN: [id number] date: 1960 Sex: F Assigned Patient Location: US Current Patient Loca tion: US Accession/Order Numb er: [id number] Exam Date: 10:31 Report Date: 04/26/2024 14:22 At the request of: YOLY FUNES Procedure: US right upper quadrant EXAM: US right upper quadrant HISTORY: Nonalcholic Steatohepatitis, Cirrhosis Of Liver COMPARISON: None. TECHNIQUE: Grayscale , color and Doppler FINDINGS: The liver is promine nt in size measuring 19.4 cm in length. Mildly nodular liver contour. No fo lincoln hepatic mass. Diffuse increase in hepatic echotexture. Hepatopedal flow in the main portal vein with a velocity of 24 cm/s. The gallbladder is surgically absent. The visualized pancr eas is normal The right kidney is normal measuring 10.9 x 5.5 x 4.7 cm U S/US right upper quadrant IMPRESSION: Stable nodular echog enic liver Electronically authenticated by: KAILEE AGUSTIN Date: 04/26/2024 14:22 Dictated By: Ramón Agustin M.D. Signed By: 04/26/241423 DD/ 21 TD/TT: Tag Meter Operator: Reason For Referral Diagnosis 1 Foot fracture, left (S92.902A) Referral Organization [facility] Medicine Referring Provider First Name Shakira Referring Provider Last Name Whitley Referring Provider Speciality Family [facility] fe Referred Provider Anthony Frazier Referred Provider Specialty Podiatry Referral Priority Routine Medications Medication SIG (Take, Route, Frequency, Duration) Notes Start Date End Date Status Losartan Potassium 100 MG 1 tablet Orall y Once a day for 30 days Active Levothyroxine Sodium 150 MCG TAKE 1 TABLET BY MOUTH EVERY DAY for 90 days Active FreeStyle Hever 2 Sensor - USE DIRECTED for 28 Active Pravastatin Sodium 40 MG TAKE 1 TABLET B Y MOUTH EVERYDAY AT BEDTIME for 90 days Active Estradiol 10 MCG 1 tablet orally twic e weekly Active Restasis Active Pilocarpine HCl 5 MG 1 tablet Orally nathaniel ly for 30 days 09/27/2024 Active Extended Shower Bench - use as directed 09/29/2022 Active Triamcinolone Acetonide 0.1 % APPLY TO AFFECTED AREA TWICE A DAY for 30 Active CPAP Supplies -- Mask and Tubing via machine use every night for DX Sleep Apnea for 30 days 04/21/2023 Active Dicyclomine HCl 10 MG TAKE 1 CAPSULE BY MOUTH 4 TIMES A DAY for 90 Active Primidone 50 MG 2 tablet Orally BID Active CPAP - use as directed with tubing.mask every night for DX Sleep Apnea for 365 days 04/21/2023 Active Pantoprazole Sodium 40 MG TAKE 1 TABLET BY MOUTH TWICE A DAY for 90 Active Albuterol Sulfate HFA 108 (90 Base) MCG/ACT 2 puff as needed Inhalation every 4 hrs for 30 days 06/27/2023 Active Jardiance 10 MG 1 tablet Orally Once a day Active Breztri Aerosphere 160-9-4.8 MCG/ACT INHALE 2 PUFFS TWICE A DAY DIRECTED for 30 Active Myrbetriq 25 MG TAKE 1 TABLET BY JONO TH EVERY DAY Oral for 30 Days Active Gabapentin 300 MG 1 capsule Orally Onc e a day Active Venlafaxine HCl ER 150 MG TAKE 1 CAPSULE BY MOUTH EVERY DAY WITH FOOD FOR 30 DAYS for 90 Active HumuLIN R U-500 KwikPen 500 UNIT/ML 60 units am and 40 units pm Subcutaneous Active Trulicity 3 MG/0.5ML as directed Subcutaneous Active Immunizations Vaccine Route Administration Date Status [facility]me [facility] [id number] Syringe Pre -Filled 30 mcg/0.3 mL Unknown 03/17/2023 Administered [email or web address] Syringe Pre -Filled 30 mcg/0.3 mL Unknown 03/27/2024 Administered Flu, (19748) -historic- Whole Unknown 03/27/2024 Admini stered Flu, Flucelvax (82213) 2 yrs +, single-dose syringe () Unknown 06/05/2019 Administered Flu, Flucelvax (34788) 2 yrs +, single-dose syringe () Unknown 02/14/2020 Administered Flu, Flucelvax (05028) 2 yrs +, single-dose syringe () Unknown 06/01/2021 Administered Flu, Flucelvax (34033) 2 yrs +, single-dose syringe () Unknown 03/17/2023 Administered Flu, Fluzone (87303) 6 mos+, single-dose syringe/vial () Unknown 04/12/2016 Administered Flu, Fluzone (96903) 6 mos+, single-dose syringe/vial () Unknown 03/21/2017 Administered Flu, Fluzone (92689) 6 mos+, single-dose syringe/vial () Unknown 04/19/2018 Administered Flu, Fluzone (14229) 6 mos+, single-dose syringe/vial () Unknown 03/24/2022 Administered Hep B, Adult, 2 Dose Unknown 04/12/2017 Administered Hep B, Adult, Dose 1 Unknown 05/11/2017 Administered Hep B, Adult, Dose 1 Unknown 10/10/2017 Administered Pneumococcal (Pneumovax 23) Unknown 01/06/2009 Administ ered Pneumococcal (Prevnar 20) Unknown 05/09/2024 Administer ed SARS-COV-2 (COVID 19 Pfizer 30mcg/0.3mL) Unknown 08/20/2020 Administered SARS-COV-2 (COVID 19 Pfizer 30mcg/0.3mL) Unknown 09/09/2020 Administered SARS-COV-2 (COVID 19 Pfizer 30mcg/0.3mL) Unknown 06/01/2021 Administered SARS-COV-2 (COVID 19) bivale nt 30 mcg/0.3 ml dose Unknown 03/24/2022 Administered ZOSTER (SHINGLES) VACCINE (HZV) Unknown 03/23/2020 Admi nistered ZOSTER (SHINGLES) VACCINE (HZV) Unknown 06/04/2020 Admi nistered Social History Tobacco Use: Social History Observation Description Date Details (start date - stop date) Current Smoker NA - NA Tobacco Use/Smoking Question Answer Notes Patient is a current every day smoker Alcohol Screen (Audit-C) Question Answer Notes Did you have a drink containing alcohol in the p ast year? No Points 0 Interpretation Negative AUDIT-C (Standard) Question Answer Notes Did you have a drink containing alcohol in the p ast year? No Points 0 Interpretation Negative Problems Problem Type SNOMED Code ICD Code Onset Dates Problem Status W/U Status Risk Notes Problem 01312603 Essential (primary) hypertension (I10) Active confirmed Problem 15545986 Obstructive slee p apnea (adult) (pediatric) (G47.33) Active confirmed Problem 16028955 Chronic obstructive pulmonary disease, unspecified (J44.9) Active confirmed Problem 411945621 Unspecified mental disorder due to known physiological condition (F09) Active confirmed Problem 051908991 Nicotine dependence, unspecified, uncomplicated (F17.200) Active confirmed Problem 32858935 Anxiety disorder , unspecified (F41.9) Active confirmed Problem 164276951 Essential tremor (G25.0) Active confirmed Problem 19745903 Restless legs syndrome (G25.81) Active confirmed Problem Gastroparesis (462379738) Gastroparesis (K31.84) Active confirmed Problem 822208043868532 Pain in right foot (M79.671) Active confirmed Problem 301338535545641 Pain in left freddie t (M79.672) Active confirmed Problem 09375136 Cramp and spasm (R25.2) Active confirmed Problem 232133834 Repeated falls (R29.6) Active confirmed Problem 331871028 Unspecified urinary incontinence (R32) Active confirmed Problem Hyperlipidemia (15592455) Hyperlipidemia (E78.5) Active confirmed Problem Hypertension (50521866) Hypertension (I10) Active confirmed Problem Gastroesophageal reflux disease (614504956) GERD (gastroesophageal reflux disease) (K21.9) Active confirmed Problem Anxiety (52010137) Anxiety (F41.9) Active confi rmed Problem Restless legs (42988506) Restless leg (G25.81) Active confirmed Problem Hypothyroid (69938889) Hypothyroid (E03.9) Active confirmed Problem Arthritis (5888397) Arthritis (M19.90) Active confirmed Problem Peripheral neuropathy (596299155) Peripheral neuropathy (G62.9) Active confirmed Problem Obstructive sleep apnea (56279108) Obstructive sleep apnea (G47.33) Active confirmed Problem Hypoglycemia (729904487) Hypoglycemia (E16.2) Active confirmed Problem Iron deficiency anemia (25598463) Iron deficiency anemia (D50.9) Active confirmed Problem Arrhythmia (458634267) Arrhythmia (I49.9) Active confirmed Problem Pain in left foot (001381975462382) Left foot pain (M79.672) Active confirmed Problem 72367759906276146 Plantar fasciitis, bilateral (M72.2) Active confirmed Problem Diabetes mellitus (20163754) Diabetes mellitus (E11.9) Active confirmed Problem 522166016 COVID-19 (U07.1) Active confirmed Problem Depression (108792886) Depression (F32.A) Active confirmed Vital Signs Heart Rate 85 /min 02/29/2024 Temperature 97.8 degrees Fahrenheit 02/29/2024 Oximetry 99 % 02/29/2024 Blood pressure diastolic 98 mm Hg 07/03/2024 Height 62 in 07/03/2024 Blood pressure systolic 160 mm Hg 07/03/2024 Weight 174.6 lbs 07/03/2024 BMI 31.93 kg/m2 07/03/2024 Procedures Procedure Date Ordered Date Performed Result Body Sit e NEO Ankle Brachial Index (80763) 12/27/2023 01/03/2024 N/A Encounters Encounter Location Date Provider Diagnosis [facility] [address] [place] [address] 08/02/2024 Shakira Higgins [facility] [address] [place] [address] 08/21/2024 Shakira Higgins [facility] [address] [place] [address] 09/26/2024 Shakira Higgins [facility] [address] [place] [address] 12/22/2023 Shakira Higgins Foot fracture, left S92.902A [facility] [address] [facility] [place] [address] 12/23/2023 Shakira Higgins [facility] [address] [facility] [place] [address] 12/23/2023 Shakira Higgins Enlarged liver R16.0 [facility] [address] [facility] [place] [address] 01/04/2024 Shakira Higgins [facility] [address] [facility] [place] [address] 07/04/2024 Shakira Higgins [facility] [address] [facility] [place] [address] 07/18/2024 Shakira Higgins Essential (primary) hypertension I10 [facility] [address] [facility] [place] [address] 12/22/2023 Shakira Higgins Wellness examination Z00.00 [facility] [address] [facility] [place] [address] 12/22/2023 Shakira Higgins Wellness examination Z00.00 and Left foot pain M79.672 [facility] [address] [facility] [place] [address] 02/28/2024 Shakira Higgins Hypoglycemia E16.2 [facility] [address] [facility] [place] [address] 07/03/2024 Shakira Higgins Hypertension I10 ; Cramp and spasm R25.2 and Rectal abnormality K62.9 [facility] ([facility]) [address] [place] [address] [place] [address] 12/27/2023 Anthony Frazier Displaced fracture o f fifth metatarsal bone, left foot, initial encounter for closed fracture S92.352A ; Displaced fracture of fourth metatarsal bone, left foot, initial encounter for closed fracture S92.342A ; Dislocation of tarsometatarsal joint of left foot, initial encounter S93.325A ; Nicotine dependence, unspecified, uncomplicated F17.200 and Left foot pain M79.672 [facility] ([facility]) [address] [place] [address] [place] [address] 01/06/2024 Anthony Frazier Displaced fracture o f fourth metatarsal bone, left foot, initial encounter for closed fracture S92.342A and Displaced fracture of fifth metatarsal bone, left foot, initial encounter for closed fracture S92.352A [facility] (POD[facility]) [address] [place] [address] [place] [address] 01/31/2024 Anthony Frazier Displaced fracture o f fifth metatarsal bone, left foot, initial encounter for closed fracture S92.352A ; Displaced fracture of fourth metatarsal bone, left foot, initial encounter for closed fracture S92.342A and Left foot pain M79.672 [facility] ([facility]OD[facility]) [address] [place] [address] [place] [address] 02/29/2024 Anthony Frazier Displaced fracture o f fifth metatarsal bone, left foot, initial encounter for closed fracture S92.352A ; Displaced fracture of fourth metatarsal bone, left foot, initial encounter for closed fracture S92.342A and Pain in left foot M79.672 Assessments Encounter Date Diagnosis (ICD Code) Assessment Notes Treatment Notes Treatment Clinical Notes Section Notes 12/22/2023 Wellness examination (ICD-10 - Z00.00) 12/22/2023 Left foot pain (ICD-10 - M79.672) 12/27/2023 Displaced fracture of fifth metatarsal bone, left foot, initial encounter for closed fracture (ICD-10 - S92.352A) The patient is a 63-year-old female who was referred by her primary care provider for evaluation of left foot fracture, DOI: 12/15/23. The patient states that she tripped over a power cord while carrying a shelf and injured the left foot.She noted plantar bruising and pain in the foot. Outpatient x-rays revealed fractures of the fourth and fifth metatarsals.- Repeat x-rays today reveal stable alignment of the dancers fracture of the fifth metatarsal and fourth metatarsal neck fracture.- More concerning, the patient has tenderness in the midfoot and history of plantar bruising. I am concerned for an occult midfoot fracture or Lisfranc fracture. I would like a CT scan for better visualization of the midfoot.- She was given a surgical shoe. She may ambulate as tolerated in the surgical shoe. RICE therapy and ghsa-uwi-uhhadik analgesia advised.Follow-up with Dr. Frazier after CT scan obtained. 12/27/2023 Displaced fracture of fourth metatarsal bone, left foot, initial encounter for closed fracture (ICD-10 - S92.342A) 01/06/2024 Displaced fracture of fourth metatarsal bone, left foot, initial encounter for closed fracture (ICD-10 - S92.342A) Patient follows up for CT and NEO review. ABIs are within normal limits and his CT scan is negative for midfoot fracture and confirms mildly displaced distal fourth and fifth metatarsal fractures. I do not believe that she is going to need surgery and may continue weightbearing as tolerated in surgical shoe. She will follow-up in 3 to 4 weeks with weightbearing foot x-rays. 01/06/2024 Displaced fracture of fifth metatarsal bone, left foot, initial encounter for closed fracture (ICD-10 - S92.352A) 01/31/2024 Displaced fracture of fifth metatarsal bone, left foot, initial encounter for closed fracture (ICD-10 - S92.352A) Patient is roughly 6 weeks status post closed fourth and fifth metatarsal fractures and is doing very well. Her x-rays were reviewed with her. She may begin transitioning out of the surgical shoe as pain allows and into normal shoes. No barefoot. No impact exercise or walking for exercise yet. Follow-up in 3 to 4 weeks with weightbearing foot x-rays 01/31/2024 Displaced fracture of fourth metatarsal bone, left foot, initial encounter for closed fracture (ICD-10 - S92.342A) 02/28/2024 Hypoglycemia (ICD-10 - E16.2) continue monitor has glucose tabs and emergency pen fu Irma pascal skip meals, protein and carbs 07/03/2024 Hypertension (ICD-10 - I10) BP check next week continue monitor high today 07/03/2024 Cramp and spasm (ICD-10 - R25.2) getting worse hands and legs , sometimes back spasms worse at night 12/22/2023 Wellness examination (ICD-10 - Z00.00) 12/22/2023 Foot fracture, left (ICD-10 - S92.902A) 12/23/2023 Enlarged liver (ICD-10 - R16.0) 07/18/2024 Essential (primary) hypertension (ICD-10 - I10) 02/29/2024 Displaced fracture of fifth metatarsal bone, left foot, initial encounter for closed fracture (ICD-10 - S92.352A) Patient is doing very well. She may increase activities as she tolerates. I have no restrictions for her. She may follow-up as needed. 02/29/2024 Displaced fracture of fourth metatarsal bone, left foot, initial encounter for closed fracture (ICD-10 - S92.342A) 02/29/2024 Pain in left foot (ICD-10 - M79.672) 07/03/2024 Rectal abnormality (ICD-10 - K62.9) fu neuro? 01/31/2024 Left foot pain (ICD-10 - M79.672) 12/27/2023 Dislocation of tarsometatarsal joint of left foot, initial encounter (ICD-10 - S93.325A) 12/27/2023 Nicotine dependence, unspecified, uncomplicated (ICD-10 - F17.200) The patient incidentally notes cramping in her hands and feet. She reports having a normal EMG in the past. I would like a screening NEO/TBI given her history of tobacco use and cramping. 12/27/2023 Left foot pain (ICD-10 - M79.672) 07/03/2024 Other neo or vein clinic Plan Of Treatment Pending Test Test Name Order Date Holter Test 03/14/2023 CMP (COMPLETE METABOLIC PANEL) 4 CMP (COMPLETE METABOLIC PANEL) 3 CMP (COMPLETE METABOLIC PANEL) 4 UA (URINALYSIS, COMPLETE) 12/07/2022 HEMOGLOBIN A1C (GLYCO) 12/22/2023 HEMOGLOBIN A1C (GLYCO) 12/22/2023 INSULIN, TOTAL 12/22/2023 INSULIN, TOTAL 12/22/2023 LIPID PANEL (CHOL/TRIG/HDL/LDL) 12/22/19 24 LIPID PANEL (CHOL/TRIG/HDL/LDL) 12/22/19 24 CBC WITH DIFF 12/22/2023 CBC WITH DIFF 12/31/2022 CBC WITH DIFF 12/22/2023 XR Abdomen AP (1 view) (KUB) * 5 XR Foot LT (3 views) * 01/31/2024 XR Foot LT (3 views) * 02/29/2024 XR Foot LT (3 views) * 12/22/2023 XR Foot LT (3 views) * 12/27/2023 CT Foot LT w/o contrast * (Optional 3D R endering) 12/27/2023 US Liver 12/23/2023 US Renals and Bladder 12/07/2022 URINE CULTURE 12/07/2022 AFP 12/31/2022 CT Chest Low Dose for Screening* 024 IRON, TIBC w SAT AND FERRITIN 12/31/2022 Culture, AFB with Smear 12/23/2023 STOOL OCCULT BLOOD 12/22/2023 STOOL OCCULT BLOOD 12/22/2023 GLYCOHEMOGLOBIN A1C 01/17/2023 THYROID PANEL (T4/TSH/FREE T3) 4 THYROID PANEL (T4/TSH/FREE T3) 4 THYROID PANEL (T4/TSH/FREE T3) 3 ECHOCARDIO M/2D COMPLETE 03/14/2023 AFB CULTURE, BLOOD 12/23/2023 Next Appt Details Provider Name:Shakira davila, 11/07/2024 01:30:00 PM, [address] [place], [address], Provider Name:Shakira davila, 01/01/2025 02:30:00 PM, [address] [place], [address], Insurance Providers Payer Name Payer Address Payer Phone Subscriber Number Group Number Insured Name Patient Relationship to Insured Coverage Start Date Coverage End Date [facility] [employer] [address] [place] [address] [id number] Renetta Barbosa Self - patient is the insured 5 MEDICAID [facility] 2ND INS [address] OFFICE OF [facility] [place] [id number] Renetta Barbosa Self - patient is the insured 3 Medical (General) History Medical History History ICD Code Arthritis M19.90 Memory loss R41.3 Intertrigo L30.4 COVID-19 U07.1 Gastroparesis K31.84 Hemorrhoids K64.9 Obstructive sleep apnea G47.33 Low platelet count D69.6 Iron deficiency anemia D50.9 Peripheral neuropathy G62.9 Restless leg G25.81 GERD (gastroesophageal reflux disease) K 21.9 Depression F32.A Anxiety F41.9 Hyperlipidemia E78.5 Hypertension I10 Hypothyroid E03.9 Diabetes mellitus E11.9 Surgical History Surgery Date(Month/Year) cholecystectomy tonsillectomy tubal ligation section
--- OUTSIDE RECORDS SUMMARY | 2024-10-24 13:51 | XMS_ITS | Referral Summary ---
Author Organization [facility] Address [address] [place] [address] Care Team Providers Care Cab Station Attendant Name Role Phone Shakira Arreaga CNP Primary Care Provider [phone] Encounters Date Type Department Care Team Description 09/03/2024 11:00 AM EDT Office Visit [facility] [address] [place] [address] Edda Velazquez MD Dizziness (Primary Dx); Primary hypertension; Pure hypercholesterolemia; Type 2 diabetes mellitus with diabetic polyneuropathy, with long-term current use of insulin ([facility]); Smoker; BMI 39.0-39.9,adult; Obstructive sleep apnea from Last 3 Months Allergies Active Allergy Reactions Criticality Noted Date [...] 06/21/2023 Gastroparesis due to DM 06/21/2023 06/21/19 24 Hemorrhoids 06/21/2023 06/21/2023 GERD (gastroesophageal reflux disease) [...] (restless legs syndrome) 06/21/2023 Smoker 06/21/2023 06/21/2023 Social History Tobacco Use Types Packs/Day Years [...] 09/03/2024 10:49 AM EDT Plan of Treatment Not on file Care Teams Cab Station Attendant Relationship Specialty Start Date End Date Shakira Arreaga CNP [address] [facility], [facility] [address] PCP - General Family Medicine 05/31/23
--- OUTSIDE RECORDS SUMMARY | 2024-10-24 13:51 | XMS_ITS | Clinical Summary ---
Author Organization [facility] Address [address] [place] [address] Care Team Providers Care Cold Press Loader Name Role Phone Benjamin Del Toro MD Primary Care Provider [phone] Tj Bradford MD Unavailable [phone] Jasmine Urban Unavailable [phone] Allergies Active Allergy Reactions Criticality Noted Date Comments Capsaicin 05/24/2023 Tramadol 01/30/2024 Medications clotrimazole (Lotrimin) 1 % cream Apply 1 application topically every 12 (twelve) hours if needed 022 Active cycloSPORINE (Restasis) 0.05 % ophthalmic emulsion Administer 2 drops into both eyes every 12 (twelve) hours Active levothyroxine (Synthroid, Levoxyl) 150 MCG tablet 1 (one) time each day at the same time Active pantoprazole (ProtoNix) 40 MG EC tablet Take 40 mg by mouth in the morning and 40 mg before bedtime. Active albuterol (ProAir RespiClick) 90 mcg/act breath-activated inhaler Inhale 2 puffs every 4 (four) hours if needed for wheezing or shortness of breath Active Breztri Aerosphere 160-9-4.8 MCG/ACT aerosol Inhale 2 puffs in the morning and 2 puffs before bedtime. 023 Active Continuous Blood Gluc Sensor (FreeStyle Hever 2 Sensor) misc USE DIRECTED 023 Active triamcinolone (Kenalog) 0.1 % cream Apply topically 2 (two) times a day to affected area 023 Active venlafaxine XR (Effexor XR) 150 MG 24 hr capsule Take 150 mg by mouth in the morning. Active cyanocobalamin (Vitamin B-12) 100 MCG tablet Take 1,000 mcg by mouth in the morning. Active cholecalciferol (Vitamin D3) 200 Unit tablet split tablet Take by mouth Daily Active beta carotene (vitamin A) 3 MG (46910 UT) capsule Take 10,000 Units by mouth in the morning. Active thiamine (Vitamin B-1) 50 MG tablet Take 50 mg by mouth in the morning. Active calcium carbonate (Os-Tanner) 1250 (500 Ca) MG tablet Take by mouth Daily Active dicyclomine (Bentyl) 10 MG capsule Take 10 mg by mouth in the morning and 10 mg at noon and 10 mg in the evening and 10 mg before bedtime. Active pravastatin (Pravachol) 40 MG tablet Take 40 mg by mouth at bedtime Active glucagon (Gvoke HypoPen 2-Pack) 1 MG/0.2ML injection Inject 1 mg under the skin 1 (one) time if needed Active insulin regular (HumuLIN R U-500 KWIKPEN) 500 UNIT/ML CONCENTRATED injectionIndicat ions:Type 2 diabetes mellitus with hyperglycemia (CMS/HCC) INJECT 80 UNITS SUBCUTANEOUSLY TWICE A DAY 24 mL 7 Active insulin pen needle (B-D ULTRAFINE III SHORT PEN) 31G X 8 mm miscIndications: Type 2 diabetes mellitus with hyperglycemia, with long-term current use of insulin (CMS/HCC) Use as instructed 100 each 3 Active Jardiance 25 MGIndications:Ty pe 2 diabetes mellitus with hyperglycemia (CMS/HCC) TAKE 1 TABLET BY MOUTH EVERY DAY 90 tablet 1 Active Myrbetriq 25 MG 24 hr tablet Take 50 mg by mouth Daily 024 Active losartan (Cozaar) 100 MG tablet Take 100 mg by mouth Daily 024 Active Magnesium 400 MG capsule Take 400 mg by mouth Daily Active Zinc Sulfate (ZINC 15 PO) Take by mouth Act amanda loratadine (Claritin) 10 MG tablet Take 10 mg by mouth Daily Active estradiol (Yuvafem) 10 MCG tablet vaginal tabletIndication s:Postmenopausal atrophic vaginitis INSERT 1 TABLET VAGINALLY TWO TIMES A WEEK FOR 90 DAYS 8 tablet 11 025 Active Dulaglutide (Trulicity) 3 MG/0.5ML solution auto-injectorInd ications:Type 2 diabetes mellitus with hyperglycemia (CMS/HCC) Inject 3 mg under the skin every 7 (seven) days 2 mL 3 025 Active tiZANidine (Zanaflex) 4 MG tabletIndication s:Insomnia, unspecified type TAKE 1/2-1 TABLET BY MOUTH AT BEDTIME NEEDED 90 tablet 1 025 Active B COMPLEX-C ER PO Take 1 tablet by mouth Daily Active gabapentin (Neurontin) 300 MG capsuleIndicatio ns:Cramp and spasm TAKE 1 CAPSULE BY MOUTH ONCE A DAY AT BEDTIME 30 capsule 3 025 Active nystatin (Mycostatin) 442534 UNIT/GM powderIndication s:Postmenopausal atrophic vaginitis APPLY TO AFFECTED AREA TWICE A DAY 60 g 3 025 Active primidone (Mysoline) 50 MG tabletIndication s:Essential tremor TAKE 2 TABLETS BY MOUTH TWICE A DAY 360 tablet 1 025 Active primidone (Mysoline) 50 MG tabletIndication s:Essential tremor TAKE 2 TABLETS BY MOUTH TWICE A DAY 360 tablet 1 024 2024 Discontinued nystatin (Mycostatin) 710924 UNIT/GM powderIndication s:Postmenopausal atrophic vaginitis APPLY TO AFFECTED AREA TWICE A DAY 60 g 3 024 2024 Discontinued Active Problems Problem Noted Date Diagnosed Date CASSIE (obstructive sleep apnea) 10/11/2023 Restless leg syndrome 10/11/2023 PLMD (periodic limb movement disorder) Hypersomnia 10/11/2023 Insomnia, unspecified 10/11/2023 Obesity 10/11/2023 Essential tremor 10/11/2023 Cognitive dysfunction 10/11/2023 Anxiety 10/11/2023 Imbalance 10/11/2023 Encounters Date Type Department Care Team Description 09/27/2024 Refill [facility] [address] [place] [address] Chris Sotelo DO Essential tremor 09/26/2024 Refill [facility] [address] [place] [address] Tj Bradford MD Postmenopausal atrophic vaginitis 09/19/2024 Refill [facility] [address] [facility] [address] [place] [address] Beatrice Lemus MA Cramp and spasm 09/10/2024 4:00 PM EDT Office Visit [facility] [address] [place] [address] Sabrina Cox NP Nonintractable episodic headache, unspecified headache type (Primary Dx); Essential tremor; Cognitive dysfunction; Anxiety; CASSIE (obstructive sleep apnea); Imbalance 09/10/2024 Bamboo flowsheet [facility] [address] [place] [address] [address] Sabrina Cox NP 08/30/2024 1:00 PM EDT Office Visit [facility] [address] [place] [address] Tj Bradford MD LGSIL of cervix of undetermined significance (Primary Dx); HPV (human papilloma virus) infection; Surgery follow-up 08/30/2024 Bamboo flowsheet [facility] [address] [place] [address] Tj Bradford MD 08/30/2024 Travel 08/21/2024 Telephone [facility] [address] [place] [address] Genet Khan LPN 08/21/2024 Refill [facility] [address] [facility] [place] [address] Gi Arriaga NP Insomnia, unspecified type 08/02/2024 Telephone [facility] [address] [place] [address] Ze Solis MD Med Refill 08/02/2024 Telephone [facility] [address] [facility] [place] [address] Kain Courtney MA 07/30/2024 3:40 PM EDT Office Visit [facility] [address] [place] [address] Gi Arriaga NP CASSIE (obstructive sleep apnea) (Primary Dx); Insomnia, unspecified type 07/30/2024 Bamboo flowsheet [facility] [address] [place] [address] Gi Arriaga NP from Last 3 Months Family History Medical History Relation Name Comments Osteoarthritis Father Diabetes Mother Kidney disease Mother Obesity Mother Relation Name Status Comments Father Mother Alive Social History Tobacco Use Types Packs/Day Years Used Date Smoking Tobacco: Every Day Cigarettes Smokeless Tobacco: Never Tobacco Cessation:Ready to Q uit: Not Asked; Counseling Given: Not Answered Comments:Thinks about quitting Alcohol Use Standard Drinks/Week Comments Not Currently 0 (1 standard drink = 0.6 oz pure alcohol) caffeine 1-2 cups/day; coffee Comments No Sex and Gender Information Value Date Recorded Sex Assigned at Not on file Legal Sex Female 11:45 PM EDT Gender Identity Not on file Sexual Orientation Not on file Last Filed Vital Signs Vital Sign Reading Time Taken Comments Blood Pressure 160/92 09/10/2024 3:48 PM EDT Pulse 91 09/10/2024 3:48 PM EDT Temperature - - Respiratory Rate 18 07/02/2024 1:59 PM EST Oxygen Saturation 98% 09/10/2024 3:48 PM EDT Inhaled Oxygen Concentration - - Weight 82 kg (180 lb 12.8 oz) 09/10/2024 3:48 PM EDT Height 157.5 cm (5' 2 ) 07/30/2024 3:48 PM EDT Body Mass Index 33.07 07/30/2024 3:48 PM EDT Plan of Treatment Upcoming Encounters Date Type Department Care Team (Late st Contact Info) Description 10/30/2024 2:00 PM EDT Office Visit [facility] [address] [place] [address] Ze Solis MD [address] [place] [address] 03/05/2025 1:30 PM EDT Office Visit [facility] [address] [place] [address] Tj Bradford MD [address] [place] [address] 06/04/2025 1:00 PM EST Office Visit [facility] [address] [place] [address] Tj Bradford MD [address] [place] [address] Health Maintenance Due Date Last Done Comments CT Colonography 1960 FIT 1960 FOBT 1960 Sigmoidoscopy 1960 FIT-DNA 02/24/2023 02/25/2020 Mammogram 05/29/2025 05/29/2024, 05/20/2022 Pap Smear 05/24/2026 05/24/2023 Cervical Cancer Screening 05/29/2029 HPV/Cotest 05/29/2029 05/29/2024 Colonoscopy 04/09/2030 04/09/2020 Colorectal Cancer Screening 04/09/2030 Influenza Vaccine Completed 03/27/2024, , 03/24/2022, Additional history exists Procedures Procedure Name Priority Date/Time Associated Diagnosis Comments MAMMOGRAM* Routine 05/29/2024 3:07 PM EST IGP, APT HPV,RFX 16/18,45 Routine 05/29/2024 12:00 AM EST Cervical cancer screening Screening for HPV (human papillomavirus) THINPREP TIS PAP AND HPV MRNA E6/E7 WITH REFLEX TO HPV 16,18/45 Routine 05/24/2023 3:45 PM EST Cervical cancer screening Screening for HPV (human papillomavirus) from Last 3 Months or Most Recently Relevant to Health Maintenance Results * MAMMOGRAM* (05/29/2024 3:07 PM EST) Anatomical Region Laterality Modality Radiographic Noa ging us Tj Bradford MD IMG XR PROCEDURES Final Result * (ABNORMAL) IGP, APT HPV,RFX 16/18,45 (05/29/2024 12:00 AM EST) Diagnosis: Comment(A) [facility] Comment: EPITHELIAL CELL ABNORMALITY. ATYPICAL SQUAMOUS CELLS OF UNDETERMINED SIGNIFICANCE (ASC-US). PREDOMINANCE OF COCCOBACILLI CONSISTENT WITH SHIFT IN VAGINAL CHANTEL IS PRESENT. Specimen Adequacy: Comment [facility] Comment:Satisfactory for latoya luation. No endocervical component is identified. Clinician Provided ICD10: Comment [facility] Comment: Z12.4 Z11.51 Performed By: Comment [facility] Comment:Raya Aranda, Cytote chnologist (ASCP) Electronically Signed By: Comment [facility] Comment:Maribel Schaefer MD, P athologist Cyto Comments . [facility] Pathologist Provided ICD10: Comment [facility] Comment:R87.610, R87.5 Note: Comment [facility] Comment: The Pap smear is a screening test designed to aid in the detection of premalignant and malignant conditions of the uterine cervix. It is not a diagnostic procedure and should not be used as the sole means of detecting cervical cancer. Both false-positive and false-negative reports do occur. Test Methodology: Comment [facility] Comment: This liquid based ThinPrep(R) pap test was screened with the use of an image guided system. HPV Aptima Positive(A ) Negative [facility] Comment: This nucleic acid amplification test detects fourteen high-risk HPV types (16,18,31,33,35,39,45,51,52,56,58,59,66,68) without differentiation. Vaginal Fluid 05/29/2024 05/30/2024 Narrative [facility] - 06/01/2024 5:06 PM EST Performed at: - [address] [id number] Chief Digital Media Officer: Marimar Hall MD, Phone: [phone] Performed at: 02 - [address] [id number] Chief Digital Media Officer: Marimar Hall MD, Phone: [phone] Specimen Comment: No. of containers..01 ThinPrep Vial us Tj Bradford MD LAB BLOOD ORDERABLES Final Res ult [facility] * (ABNORMAL) THINPREP TIS PAP AND HPV MRNA E6/E7 WITH REFLEX TO HPV 16,18/45 (05/24/2023 3:45 PM EST) CLINICAL INFORMATION [facility] Comment:None given LMP [facility] Comment:NONE GIVEN PREV. PAP [facility] Comment:NONE GIVEN PREV. BX [facility] Comment:NONE GIVEN SOURCE [facility] Comment:None given STATEMENT OF ADEQUACY [facility] Comment: Satisfactory for evaluation. Endocervical/transformation zone component absent. GENERAL CATEGORIZATION (A) [facility] Comment:Cytology Results: Ep ithelial Cell Abnormality INTERPRETATION/RESUL T (A) [facility] Comment:Low Grade Squamous I ntraepithelial Lesion (LSIL) COMMENT [facility] Comment: This Pap test has been evaluated with computer assisted technology. BANQUET LINE COOK [facility] Comment: ELP, CT(ASCP) CT Screening Location: [place] [address] PATHOLOGIST [facility] Comment: Latasha Dotson MD Board Certified in Anatomic and Clinical Pathology Board Certified in Cytopathology (electronic signature) For questions regarding this report call Anatomic Pathology at [phone] (ALWAYS MESSAGE) [facility] Comment: EXPLANATORY NOTE: The Pap is a screening test for cervical cancer. It is not a diagnostic test and is subject to false negative and false positive results. It is most reliable when a satisfactory sample, regularly obtained, is submitted with relevant clinical findings and history, and when the Pap result is evaluated along with historic and current clinical information. HPV MRNA E6/E7 Detected (A) Not Detected [facility] Comment: Methodology: Blueprint Clerk-Mediated Amplification This assay detects E6/E7 viral messenger RNA (mRNA) from 14 high-risk HPV types (16,18,31,33,35,39,45,51,52,56,58,59,66,68). Cervical sources are required for HPV testing. If a vaginal source from a patient who has had a total hysterectomy with removal of cervix was submitted, please contact the testing laboratory for alternative testing options. For additional information, please refer to http://education.[employer] Play/faq/JMW185m4 (This link if provided for information/ educational purposes only.) 05/24/2023 3:45 PM EST 05/25/2023 2:58 AM EST Narrative Resulting Agency Comment Performing Organization Information Site ID: [id number] Name: [facility] Address: [address] [place] [address] Director: Kingston Sen MD Tj Bradford MD LAB CYTOLOGY ORDERABLES Final Result [facility] from Last 3 Months or Most Recently Relevant to Health Maintenance Insurance [employer] MEDICARE Care Teams Cold Press Loader Relationship Specialty Start Date End Date Benjamin Del Toro MD PCP - General Family Medicine 05/18/23 Tj Bradford MD [address] [place] [address] Obstetrics and Gynecology 05/18/23 Jasmine Urban [facility] [address] [place] [address] Television Maintenance Man Behavioral Health 05/30/24
--- OUTSIDE RECORDS SUMMARY | 2024-10-24 13:51 | XMS_ITS | Encounter Summary ---
Author Organization [facility] Address [address] [place] [address] Care Team Providers Care Truck And Transport Mechanic Name Role Phone Benjamin Del Toro MD Primary Care Provider [phone] Tj Bradford MD Unavailable [phone] Jasmine Urban-Ab Unavailable [phone] Encounter Details Date Type Department Care Team (Late Contact Info) Description 05/29/2024 Orders Only [facility] [address] [facility] [address] [place] [address] Tj Bradford MD [address] [facility] [address] [place] [address] Social History Tobacco Use Types Packs/Day Years Used Date Smoking Tobacco: Every Day Cigarettes Smokeless Tobacco: Never Comments:Thinks about quitti ng Alcohol Use Standard Drinks/Week Comments Not Currently 0 (1 standard drink = 0.6 oz pure alcohol) caffeine 1-2 cups/day; coffee Comments No Sex and Gender Information Value Date Recorded Sex Assigned at Not on file Legal Sex Female 11:45 PM EDT Gender Identity Not on file Sexual Orientation Not on file documented as of this encounter Plan of Treatment Upcoming Encounters Date Type Department Care Team (Late Contact Info) Description 10/30/2024 2:00 PM EDT Office Visit [facility] [address] [place] [phone] Ze Solis MD [address] [place] [address] 03/05/2025 1:30 PM EDT Office Visit [facility] [address] [place] [address] Tj Bradford MD [address] [place] [address] 06/04/2025 1:00 PM EST Office Visit [facility] [address] [place] [address] Tj Bradford MD [address] [place] [address] documented as of this encounter Procedures Procedure Name Priority Date/Time Associated Diagnosis Comments MAMMOGRAM* Routine 05/29/2024 3:07 PM EST documented in this encounter Results * MAMMOGRAM* (05/29/2024 3:07 PM EST) Anatomical Region Laterality Modality Radiographic Noa ging us Tj Bradford MD IMG XR PROCEDURES Final Result documented in this encounter Visit Diagnoses Not on filedocumented in this encounter Care Teams Truck And Transport Mechanic Relationship Specialty Start Date End Date Benjamin Del Toro MD PCP - General Family Medicine 05/18/23 Tj Bradford MD [address] [place] [address] Obstetrics and Gynecology 05/18/23 Jasmine Urban [facility] [address] [place] [address] Horticultural Farmer Behavioral Health 05/30/24 documented as of this encounter
--- OUTSIDE RECORDS SUMMARY | 2024-10-24 13:52 | XMS_ITS | Encounter Summary ---
Author Organization [facility] Address [address] [place] [address] Care Team Providers Care Bushler Name Role Phone Shakira Arreaga TERESA Primary Care Provider + Source Comments In the event this information is protected by the Federal Confidentiality of Alcohol and Drug AbusePatient Records regulations: The Federal rules restrict any use of the information to criminally investigate or prosecute any alcohol or drug abuse patient.[facility] Encounter Details Date Type Department Care Team (Late st Contact Info) Description 08/06/2020 Abstract Hematology/Oncology [address] [facility] [place] [address] Andre Cadet MD [address] [facility] [place] [address] Social History Tobacco Use Types Packs/Day Years Used Date Smoking Tobacco: Every Day Area Deprivation Index Answer Date Fantasma rded National Score (1-100), lower number is lower ri sk Not on file 08/06/2020 State Score (1-10), lower number is lower risk N ot on file 08/06/2020 Data from: https://www.neighborhoodatlas.medicine.[facility].edu/. Last address used for calculation Not on file 08/06/2020 Comments Unknown Sex and Gender Information Value Date Recorded Sex Assigned at Not on file Legal Sex Female 2:34 PM EST Gender Identity Not on file Sexual Orientation Not on file COVID-19 Exposure Response Date Recorded In the last month, have you been in contact with someone who was confirmed or suspected to have Coronavirus / COVID-19? No / Unsure 08/06/2020 3:21 PM EDT documented as of this encounter Plan of Treatment Not on file documented as of this encounter Visit Diagnoses Not on filedocumented in this encounter Care Teams Bushler Relationship Specialty Start Date End Date Shakira Arreaga CNP [address] [place] [address] PCP - General Internal Medicine 08/01/20 documented as of this encounter
--- OUTSIDE RECORDS SUMMARY | 2024-10-24 13:52 | XMS_ITS | Encounter Summary ---
Author Organization [facility] Address [address] [place] [address] Care Team Providers Care Rescue Boat Operator Name Role Phone Shakira Arreaga AUTOMOTIVE EXHAUST EMISSIONS TECHNICIAN Primary Care Provider + Source Comments In the event this information is protected by the Federal Confidentiality of Alcohol and Drug AbusePatient Records regulations: The Federal rules restrict any use of the information to criminally investigate or prosecute any alcohol or drug abuse patient.[facility] Encounter Details Date Type Department Care Team (Latest Contact Info) Description 08/06/2020 H&P External-Non[facility]F Provider, External, PA-C Do not enter address information under generic External Provider. Social History Tobacco Use Types Packs/Day Years Used Date Smoking Tobacco: Every Day Area Deprivation Index Answer Date Fantasma rded National Score (1-100), lower number is lower ri sk Not on file 08/06/2020 State Score (1-10), lower number is lower risk N ot on file 08/06/2020 Data from: https://www.neighborhoodatlas.medicine.[facility].edu/. Last address used for calculation Not [...] on filedocumented in this encounter Care Teams Rescue Boat Operator Relationship Specialty Start Date End Date Shakira Arreaga CNP [address] [place] [place] [id number] PCP - General Internal Medicine 08/01/20 documented as of this encounter
--- NOTE | 2024-10-24 13:53 | MM_ITS ---
Patient Name: ALBINO BARBOSA MR#: [id number] : 1960 Exam Date: 10/24/2024 Ordering Doctor: DR LUL DUTTON RADIOLOGY REPORT PROCEDURE: MM TOMOSYNTHESIS SCREENING BI COMPARISON: MM TOMOSYNTHESIS SCREENING BI, 10/21/2023. MG MAMM SCREEN 3D SANTIAGO CAD, 10/19/2022. MG MAMM SCREEN 3D SANTIAGO CAD, 07/21/2021. MG MAMM SCREEN SANTIAGO W CAD, 07/18/2020. INDICATIONS: Screening Calculator Name NCI Breast Cancer Risk Assessment Tool 5 Year Breast Cancer Risk 1.60% Lifetime Breast Cancer Risk 6.40% Personal Breast Cancer No Personal Ovarian Cancer No Treatments None Family Cancers Grandmother-maternal with breast cancer at age 80. LOCATION: [facility] BREAST COMPOSITION: There are scattered areas of fibroglandular density. FINDINGS: RIGHT BREAST: No significant suspicious finding. Benign-appearing calcifications are present. Benign-appearing lymph nodes are present. LEFT BREAST: No significant suspicious finding. Benign-appearing calcifications are present. Benign-appearing lymph nodes are present. DIAGNOSTIC CATEGORY 2--BENIGN FINDING: RECOMMENDATIONS: ROUTINE MAMMOGRAM AND CLINICAL EVALUATION IN 12 MONTHS. PLEASE NOTE: A NORMAL MAMMOGRAM DOES NOT EXCLUDE THE POSSIBILITY OF BREAST CANCER. A CLINICALLY SUSPICIOUS PALPABLE LUMP SHOULD BE BIOPSIED. Dictated by: Olu Barton MD on 10/25/2024 at 10:03 Approved by: Olu Barton MD on 10/25/2024 at 10:06
== END 2024-10-24 13:48 | disposition home or self-care (01) ==
LOC: MAMMO 13:47
PROVIDERS: PCP Nurse Practitioner Family; Visit Provider Obstetrics & Gynecology
DX: Z12.31 Encounter for screening mammogram for malignant neoplasm of breast (principal); Z80.3 Family history of malignant neoplasm of breast
CPT/HCPCS: 77063; 77067

== ENCOUNTER 2024-11-13 14:29 | Outpatient (OUT) | payer MEDICARE, SELFPAY ==
--- OUTSIDE RECORDS SUMMARY | 2024-10-30 14:00 | XMS_ITS | Encounter Summary ---
Author Organization [facility] Address [address] [facility] [place] [address] Care Team Providers Care Vegetable Specker Name Role Phone Benjamin Del Toro MD Primary Care Provider [phone] Tj Bradford MD Unavailable [phone] Jasmine Urban Unavailable [phone] Reason for Visit * Reason Comments Diabetes Follow-up Encounter Details Date Type Department Care Team (Latest Contact Info) Description 10/30/2024 2:00 PM EDT Office Visit [facility] [address] [place] [address] Ze Solis MD [address] [place] [address] Insulin long-term use (HCC) (Primary Dx); Type 2 diabetes mellitus with hyperglycemia, unspecified whether jail insulin use (HCC); Vitamin D deficiency; Encounter for dietary consultation; High risk medication use; Primary hypertension ; Hypoglycemia; Microalbuminuria; Type 2 diabetes mellitus with hyperglycemia (HCC); Acquired hypothyroidism Social History Tobacco Use Types Packs/Day Years [...] on file documented as of this encounter Last Filed Vital Signs Vital Sign Reading Time Taken Comments Blood Pressure 130/80 10/30/2024 2:20 PM EDT Pulse 99 10/30/2024 2:20 PM EDT Temperature - - Respiratory Rate 20 10/30/2024 2:20 PM EDT Oxygen Saturation 96% 10/30/2024 2:20 PM EDT Inhaled Oxygen Concentration - - Weight 84.4 kg (186 lb) 10/30/2024 2:20 PM EDT Height 157.5 cm (5' 2 ) 10/30/2024 2:20 PM EDT Body Mass Index 34.02 10/30/2024 2:20 PM EDT documented in this encounter Progress Notes * Ze Solis MD - 10/30/2024 2:00 PM EDT Images from the original note were not included. Renetta Richard is a 64 y.o. female No ref. provider found presents with chief complaint of Diabetes and Follow-up HPI: IM : 10/2024 follow up visit on 10/30/2024 A1C 7.5, blood sugar 360. She has currently on U500, 60 in the morning, 20 lunch, 20 units qhs, Trulicity 3 mg weekly, jardiance 25 mg daily. On levothyroxine 150 mcg daily and wants me to take care of her thyroid IM : 06/2024 follow up visit on 07/02/2024 A1C 7.7, blood sugar 192 in the office. She has currently on U500, 40in the morning, 60 at dinner, Trulicity 3 mg weekly, jardiance 25 mg daily. CGM 770-25 avg 142. IM : 02/2024 follow up visit on 03/05/2024 A1C 7.4, blood sugar 187 in the office. She has currently on U500, 60in the morning, 60 at dinner, 20 qhs, [...] 281 in the office. She has currently [id number], 80 in the morning, 80 at dinner, [...] 7.8 ; blood sugar 110. She has currentlyon U500, 80 in the morning, 80 at dinner, Trulicity 3 mg weekly. CGM 4-46-50 % AVG 185. IM : 07/2022 follow up visit on 08/12/2022 A1C in the office 8 ; blood sugar 288. She has currently on U500, 80 in the morning, 80 at dinner. She is also off metformin 1000 twice a day and on Trulicity1.5. CGM 3-58-39 % AVG 175. IM: 04/2022 [...] 7.5; blood sugar 53. She has currently [id number], 100-120 in the morning,90-120 at lunch and 65-60 at dinner. Her CGM 15% low range, 63 midrange, 22 in high range, avg 132. She is also on metformin 1000 twice a day and Trulicity 1.5. HPI: 05/2021 New patient sent from [facility]ak[facility]re[facility] CNP for uncontrolled diabetes. A1C in the [...] albuterol (ProAir RespiClick) 90 mcg/act breath-activated inhaler 2 puffs, Every 4 hours PRN B COMPLEX-C ER PO 1 tablet, Daily beta carotene (VITAMIN A) 10,000 Units, Daily Breztri Aerosphere 160-9-4.8 MCG/ACT aerosol 2 puffs, 2 times daily calcium carbonate (Os-Tanner) 1250 (500 Ca) MG tablet Daily cholecalciferol (Vitamin D3) 200 Unit tablet split tablet Daily RT clotrimazole (Lotrimin) 1 % cream 1 application , Every 12 hours PRN Continuous Blood Gluc Sensor (FreeStyle Hveer 2 Sensor) misc cyanocobalamin (VITAMIN B-12) 1,000 mcg, Daily RT cycloSPORINE (Restasis) 0.05 % ophthalmic emulsion 2 drops, Every 12 hours dicyclomine (BENTYL) 10 mg, 4 times daily empagliflozin (JARDIANCE) 25 mg, Oral, Daily estradiol (Yuvafem) 10 MCG tablet vaginal tablet INSERT 1 TABLET VAGINALLY TWO TIMES A WEEK FOR 90 DAYS gabapentin (Neurontin) 300 MG capsule TAKE 1 CAPSULE BY MOUTH ONCE A DAY AT BEDTIME Gvoke HypoPen 2-Pack 1 mg, Once as needed insulin pen needle (B-D ULTRAFINE III SHORT PEN) 31G X 8 mm misc Use as instructed insulin regular (HumuLIN R U-500 KWIKPEN) 500 UNIT/ML CONCENTRATED injection INJECT 80 UNITS SUBCUTANEOUSLY TWICE A DAY levothyroxine (Synthroid, Levoxyl) 150 MCG tablet Every 24 hours loratadine (CLARITIN) 10 mg, Daily losartan (COZAAR) 100 mg, Daily magnesium 400 mg, Daily Myrbetriq 50 mg, Daily nystatin (Mycostatin) 292484 UNIT/GM powder Topical, 2 times daily, to affected area pantoprazole (PROTONIX) 40 mg, 2 times daily pilocarpine (SALAGEN) 5 mg, Daily pravastatin (PRAVACHOL) 40 mg, Nightly primidone (MYSOLINE) 100 mg, Oral, 2 times daily thiamine (VITAMIN B-1) 50 mg, Daily tiZANidine (Zanaflex) 4 MG tablet TAKE 1/2-1 TABLET BY MOUTH AT BEDTIME NEEDED triamcinolone (Kenalog) 0.1 % cream 2 times daily Trulicity 3 mg, Subcutaneous, Every 7 days venlafaxine XR (EFFEXOR XR) 150 mg, Daily Zinc Sulfate (ZINC 15 PO) Take by mouth ALLERGIES: Allergies Allergen Reactions Capsaicin Tramadol Past Medical History: Diagnosis Date Abnormal Pap smear of vagina ADD (attention deficit disorder) Anxiety Autoimmune thyroiditis (CMS/HCC) COPD (chronic obstructive pulmonary disease) (CMS/HCC) Depression (CMS/HCC) Diabetes (CMS/HCC) Essential (primary) hypertension (CMS/HCC) GERD (gastroesophageal reflux disease) High cholesterol (CMS/HCC) Hypoglycemia Hypothyroidism (CMS/HCC) Liver disease USP (current) use of insulin (CMS/HCC) Memory changes ABDUL (nonalcoholic steatohepatitis) Osteoarthritis Thyroid disorder (CMS/HCC) Type 2 diabetes mellitus with hyperglycemia (CMS/HCC) Vitamin D deficiency, unspecified Past Surgical History: Procedure Laterality Date ADENOIDECTOMY 1965 CERVICAL BIOPSY W/ LOOP ELECTRODE EXCISION 07/2024 SECTION, LOW TRANSVERSE CHOLECYSTECTOMY 2016 OTHER SURGICAL HISTORY 1984 Cone biopsy of [...] recent change. No heart burn, liver or gallbladderdisease; no rectal bleeding or pain : No urinary pain , frequency or odor. MUSCULOSKELETAL: No muscle pain or cramps; no extremity weakness.No joint pain, stiffness, swellingor limitation of movement NEUROLOGY: No H/O seizures, stroke or fainting. No weakness, tremors. Hematology: No bleeding problems or excessive bruising ENDOCRINE: No increase in hunger, thirst or urination; admits compliance to medical management plan Feet: numbness tingling yes , ulcers or skin break no Lab Results Component Value Date HGBA1C 7.5 10/30/2024 HGBA1C 7.7 07/02/2024 HGBA1C 7.4 03/05/2024 Lab Results Component Value Date GLU 360 10/30/2024 GLU 192 07/02/2024 GLU 187 03/05/2024 05/28/2024 2:54 PM 05/29/2024 2:47 PM 07/02/2024 1:59 PM 07/30/2024 3:48 PM 08/30/2024 1:05 PM 09/10/2024 3:48 PM 10/30/2024 2:20 PM Vitals BMI 32.56 kg/m2 31.09 kg/m2 32.37 kg/m2 32.01 kg/m2 32.01 kg/m2 33.07 kg/m2 34.02 kg/m2 BSA (m2) 1.88 m2 1.84 m2 1.87 m2 1.86 m2 1.86 m2 1.89 m2 1.92 m2 Systolic 144 130 140 128 142 160 130 Diastolic 87 82 84 80 82 92 80 Heart Rate 69 96 90 91 99 SpO2 97 % 94 % 98 % 96 % Resp 18 20 Height (in) 5' 2 5' 2 5' 2 Weight (lb) 178 170 177 175 175 180.8 186 Visit Report Report Report Report Report Report Report Report ASSESSMENT AND PLAN: Assessment/Plan Diagnoses and all orders for this visit: Insulin long-term use ([facility]) Type 2 diabetes mellitus with hyperglycemia, unspecified whether jail insulin use ([facility]) - POCT glucose manually resulted - POCT glycosylated hemoglobin (Hb A1C) docked device - insulin regular (HumuLIN R U-500 KWIKPEN) 500 UNIT/ML CONCENTRATED injection; INJECT 80 UNITS SUBCUTANEOUSLY TWICE A DAY We will continue his U500 60-20-20, Jardiance 25 mg once a day, Trulicity 3 mg once weekly. Vitamin D deficiency Encounter for dietary consultation High risk medication use Primary hypertension ([facility]) Hypoglycemia Microalbuminuria Type 2 diabetes mellitus with hyperglycemia ([facility]) - empagliflozin (Jardiance) 25 MG; Take 1 tablet (25 mg) by mouth Daily - insulin regular (HumuLIN R U-500 KWIKPEN) 500 UNIT/ML CONCENTRATED injection; INJECT 80 UNITS SUBCUTANEOUSLY TWICE A DAY Acquired hypothyroidism ([facility]) - T3, free; Future - T4, free; Future - TSH; Future We will check lab and adjust currently on levothyroxine 150 mcg daily. Follow up in about 4 months (around 03/01/2025). documented in this encounter Plan of Treatment Upcoming Encounters Date Type Department Care Team (Late st Contact Info) Description 03/05/2025 1:30 PM EDT Office Visit [facility] [address] [place] [address] Tj Bradford MD [address] [place] [address] 03/06/2025 2:20 PM EDT Office Visit [facility] [address] [place] [address] Ze Solis MD [address], [address] [place] [address] 06/04/2025 1:00 PM EST Office Visit [facility] [address] [place] [id number] Tj Bradford MD [address] [place] [address] Scheduled Orders Name Type Priority Associated Diagnoses Orde r Schedule T3, free Lab Routine Acquired hypothyroidism Expected: 10/30/2024 (Approximate), Expires: 10/30/2025 T4, free Lab Routine Acquired hypothyroidism Expected: 10/30/2024 (Approximate), Expires: 10/30/2025 TSH Lab Routine Acquired hypothyroidism Expected: 10/30/2024 (Approximate), Expires: 10/30/2025 documented as of this encounter Procedures Procedure Name Priority Date/Time Associated Diagnosis Comments POCT GLYCOSYLATED HEMOGLOBIN (HGB A1C) Routine 10/30/2024 2:22 PM EDT Type 2 diabetes mellitus with hyperglycemia, unspecified whether ocean transportation intermediary insulin use (HCC) POCT GLUCOSE Routine 10/30/2024 2:22 PM EDT Type 2 diabetes mellitus with hyperglycemia, unspecified whether jail insulin use (HCC) documented in this encounter Results * POCT glycosylated hemoglobin (Hb A1C) docked device (10/30/2024 2:22 PM EDT) Hemoglobin A1C 7.5 Blood Venous blood specimen / Unknown 10/30/2024 2:22 PM EDT Ze Solis MD POINT OF CARE TEST ENTER/EDIT ORDERABLES Final Result * POCT glucose manually resulted (10/30/2024 2:22 PM EDT) Glucose Blood, POC 360 mg/dL Blood Capillary blood specimen / Unknown 10/30/2024 2:22 PM EDT Ze Solis MD POINT OF CARE TEST ENTER/EDIT ORDERABLES Final Result documented in this encounter Visit Diagnoses Diagnosis Insulin long-term use (HCC)- Primary Encounter for long-term (current) use of insulin Type 2 diabetes mellitus with hyperglycemia, unspecified whether jail insulin use (HCC) Vitamin D deficiency Encounter for dietary consultation High risk medication use Primary hypertension Unspecified essential hypertension Hypoglycemia Hypoglycemia, unspecified Microalbuminuria Proteinuria Acquired hypothyroidism Unspecified hypothyroidism documented in this encounter Care Teams Vegetable Specker Relationship Specialty Start Date End Date Benjamin Del Toro MD PCP - General Family Medicine 05/18/23 Tj Bradford MD [address] [place] [address] Obstetrics and Gynecology 05/18/23 Jasmine Urban [facility] [address] [place] [address] Salmon Gillnet [facility] 05/30/24 documented as of this encounter
--- OUTSIDE RECORDS SUMMARY | 2024-11-07 09:30 | XMS_ITS ---
Author Organization [facility] in [place] Address [address] [place] [address] Care Team Providers Care Licensed Insurance Agent Name Role Phone Shakira Arreaga Primary Care Provider Allergies Allergen (clinical drug ingredient) Drug/Non Drug Allergy documented on EMR Reaction Allergy Type Onset Date Status capsaicin Capsaicin hands/feet burning Drug Allergy Active trazodone Trazodone itching all over Drug Allergy Active REASON FOR VISIT initial medicare wellness Medications Medication SIG (Take, Route, Frequency, Duration) Notes Start Date End Date Status Levothyroxine Sodium 150 MCG TAKE 1 TABLET BY MOUTH EVERY DAY for 90 days Active Jardiance 10 MG 1 tablet Orally Once a day Active HumuLIN R U-500 KwikPen 500 UNIT/ML 60 units am, 40 units at lunch and 40 units pm Subcutaneous Active Gabapentin 300 MG 1 capsule Orally Onc e a day Active FreeStyle Hever 2 Sensor - USE DIRECTED for 28 Active Dicyclomine HCl 10 MG TAKE 1 CAPSULE BY MOUTH 4 TIMES A DAY for 90 Active CPAP Supplies -- Mask and Tubing via machine use every night for DX Sleep Apnea for 30 days 04/21/2023 Active CPAP - use as directed with tubing.mask every night for DX Sleep Apnea for 365 days 04/21/2023 Active Extended Shower Bench - use as directed 09/29/2022 Active Estradiol 10 MCG 1 tablet orally twic e weekly Active Breztri Aerosphere 160-9-4.8 MCG/ACT INHALE 2 PUFFS TWICE A DAY DIRECTED for 30 Active Albuterol Sulfate HFA 108 (90 Base) MCG/ACT 2 puff as needed Inhalation every 4 hrs for 30 days 06/27/2023 Active Vitamin A 2400 MCG (8000 UT) 1 capsule with food or milk Orally Once a day Active Benadryl Active Vitamin D3 25 MCG 1 capsule Orally Onc e a day Active Venlafaxine HCl ER 150 MG TAKE 1 CAPSULE BY MOUTH EVERY DAY WITH FOOD FOR 30 DAYS for 90 Active Trulicity 3 MG/0.5ML as directed Subcutaneous Active Magnesium 250 MG 1 capsule Orally Onc e a day Active Calcium 500 MG 2 tablet with meals Orally daily Active Vitamin B Complex - daily Orally Active Triamcinolone Acetonide 0.1 % APPLY TO AFFECTED AREA TWICE A DAY for 30 Active Restasis Active Primidone 50 MG 2 tablet Orally BID Active Pravastatin Sodium 40 MG TAKE 1 TABLET B Y MOUTH EVERYDAY AT BEDTIME for 90 days Active Pilocarpine HCl 5 MG 1 tablet Orally nathaniel ly for 30 days 09/27/2024 Active Pantoprazole Sodium 40 MG TAKE 1 TABLET BY MOUTH TWICE A DAY for 90 Active Myrbetriq 25 MG TAKE 1 TABLET BY JONO TH EVERY DAY Oral for 30 Days Active Losartan Potassium 100 MG 1 tablet Orall y Once a day for 30 days Active Social History Tobacco Use: Social History Observation Description Date Details (start date - stop date) Current Smoker NA - NA Tobacco Use/Smoking Question Answer Notes Patient is a current every day smoker AUDIT-C (Standard) Question Answer Notes Did you have a drink containing alcohol in the p ast year? No Points 0 Interpretation Negative Vital Signs Weight 188.6 lbs 11/07/2024 Height 62 in 11/07/2024 Blood pressure systolic 134 mm Hg 11/08/19 25 Blood pressure diastolic 80 mm Hg 025 BMI 34.49 kg/m2 11/07/2024 Encounters Encounter Location Date Provider Diagnosis [facility] [address] [place] [address] 11/07/2024 Shakira Arreaga Encounter for Medicare annual wellness exam Z00.00 Assessments Encounter Date Diagnosis (ICD Code) Assessment Notes Treatment Notes Treatment Clinical Notes Section Notes 11/07/2024 Encounter for Medicare annual wellness exam (ICD-10 - Z00.00) Patient presents to the office for an initial medicare wellness appointment, patient completed the paperwork for anxiety, depreesion and safety screenings with no concerns, slums memory test completed and the patient scored 29/30. patient has never had a dexa scan, mammogram and colonoscopy are up to date. patient did have a concern about the medication pilocarpine 5mg she takes the medication once daily and feels she needs a increase, I did ask why and she said because after 3 hours her mouth is very dry a total of 30 minutes was spent with the patient Plan Of Treatment Next Appt Details Provider Name:Shakira Berger Arlen davila, 01/01/2025 02:30:00 PM, [address] [place], [address], Progress Notes * Renetta BARBOSA ADOB: [birth year] (64 yo F)Acc No.[id number]:11/07/2024 UNLOCKED PROGRESS NOTE Progress Note Patient: Renetta OLSON Provider: Terry Arreaga ([facility]), APARTMENT COMMUNITY MANAGER :1960 A ge:64 Y S ex:Female Date:11/07/2024 Address:[address] [place], [place] [id number] Check In:01:35 PM ESTCheck O ut:02:04 PM EST Subjective: * Chief Complaints: * 1 . Initial medicare wellness. * HPI: Rasta goodrich Annual Wellness Visit: Type of Visit: I [facility] Annual Wellness Visit (IAWV). Visual Acuity: N /A. Other Providers of Care: C are Team reviewed with patient: Murray prather, and updates made in [facility] [place] of Care Physical Activity: D o you exercise regularly? Y es T ype of exercise: _ __ F requency: _ __ Nutrition/Diet: O n a typical day, how many servings of fruits and vegetables do you consume? 0 I n a typical week, how many servings of fried or high fat (such as cheese, fatty meat) do you consume? 0 I n a typical week, how many servings of high fiber or whole grain foods do you consume? 0 Seat Belt: D o you always use your seat belt in your car??Yes A re you having difficulties driving your car??No C an you get to places out of walking distance without help? Y es Dental: H ow would you describe the condition of your mouth and teeth, including any false teeth or dentures? E xcellent Medication List Follow-Up: D uring the past four weeks, how much bodily pain do you have? N o pain D o you have a current opioid prescription??No Self Assessment of Health: H ow would you rate your overall health the past four weeks? E xcellent H ow confident are you that you can control and manage most of your health problems? V fernando confident H ow have things been going for you during the past four weeks? V fernando well; could hardly be better D uring the past four weeks, was someone available to help you if you needed and wanted help? Y es, as much as I wanted (Example: if you felt nervous, lonely, or blue; got sick and had to stay in bed; needed someone to talk to; help with daily chores; or needed help just taking care of yourself) D o you have any sexual problems? N o D o you have any troubles eating well? N o D o you have any problems with tiredness or fatigue? N o H ave you noticed any hearing difficulties??No Sun Exposure: D o you protect yourself from over exposure to the sun when outdoors? Y es Mental Wellness: D uring the past four weeks, how much have you been bothered by emotional problems such as feeling anxious, depressed, irritable, sad, or downhearted and blue? N ot at all D uring the past four weeks, has your physical and emotional health limited your social activities with family, friends, neighbors, or groups??Not at all Functional Ability and Safety Screening: D o you need assistance with any of the following? Select all that apply. N one D oes your home have rugs in the hallway, lack grab bars in the bathroom, lack handrails on the stairs or have poor lighting? N o D o you feel unsteady and/or dizzy when standing or walking? N o D o you have smoke detectors in your home and routinely change the batteries? Y es D o you have a fire extinguisher and know how to use it properly? Y es D o you have any problems with your living situation, food, transportation, utilities, or safety? N o Cognitive Screening: H ave you experienced any memory issues or problems with thinking? N o H ave your family members, friends, caretakers, or others raised any concerns? N o D o you get confused or easily distracted more than you used to? N o H as your ability to concentrate seem to have declined recently? N o End of Life Planning: D o you have a living will? Y es D o you have a Durable Power of Clinical Trial Manager? Y es W ould you like to discuss this topic today??Yes SDOH A gree to complete Social Determinants of Health questionnaire Y es W ithin the past 12 months, did you worry that your food would run out before you got money to buy more? N o W ithin the past 12 months, did the food you bought just not last and you didn't have money to buy more? N o W ithin the past 12 months, have you ever stayed: outside, in a car, in a a tent, in an overnight snf, or temporarily in someone else's home??No A re you worried about losing your housing??No W ithin the past 12 months, have you been able to get utilities (heat, electricity) when it was really needed? N o W ithin the past 12 months, has a lack of transportation kept you from medical appointments or from doing things needed for daily living? N o D o you feel physically or emotionally unsafe where you currently live? N o W ould you like help with any of these needs that you have identified? N o * Medical History: A rthritis, Memory loss, Intertrigo, COVID-19, Gastroparesis, Hemorrhoids, Obstructive sleep apnea, Low platelet count, Iron deficiency anemia, Peripheral neuropathy, Restless leg, GERD (gastroesophageal reflux disease), Depression, Anxiety, Hyperlipidemia, Hypertension, Hypothyroid, Diabetes mellitus. * Surgical History: c esarean section , tubal ligation , tonsillectomy , cholecystectomy . * Family History: F ather: , Lung cancer, diagnosed with Unspecified heart disease, Unspecified polyarthropathy or polyarthritis, pelvic region and thigh. M other: alive, kidney failure, diagnosed with Diabetes mellitus without mention of complication, type II or unspecified type, not stated as uncontrolled, Unspecified polyarthropathy or polyarthritis, pelvic region and thigh. B rother(s): alive, psoriasis. S ister(s): alive. S on(s): alive, thyroid disease. D keier(s): alive, thyroid disease, chronic back pain, hernias. 2 brother(s) , 1 sister(s) . 1 son(s) , 2 daughter(s) . . Didnt know father. * Social History: T obacco Use: T obacco Use/Smoking P atient is a c urrent every day smoker D rug/Alcohol: A MAN-C (Standard) D id you have a drink containing alcohol in the past year? N o P oints 0 I nterpretation N egative * Medications: T aking Albuterol Sulfate HFA 108 (90 Base) MCG/ACT Aerosol Solution 2 puff as needed Inhalation every 4 hrs , Taking Benadryl , Taking Breztri Aerosphere(Dppkayu-Cjnajgtfbss-Fxxxgsqpoz) 160-9-4.8 MCG/ACT Aerosol INHALE 2 PUFFS TWICE A DAY DIRECTED , Taking Calcium 500 MG Tablet 2 tablet with meals Orally daily , Taking CPAP - use as directed with tubing.mask every night for DX Sleep Apnea , Taking CPAP Supplies -- -- Mask and Tubing via machine use every night for DX Sleep Apnea , Taking Dicyclomine HCl 10 MG Capsule TAKE 1 CAPSULE BY MOUTH 4 TIMES A DAY , Taking Estradiol 10 MCG Tablet 1 tablet orally twice weekly , Taking Extended Shower Bench - - use as directed , Taking FreeStyle Hever 2 Sensor(Continuous Glucose Sensor) - Miscellaneous USE DIRECTED , Taking Gabapentin 300 MG Capsule 1 capsule Orally Once a day , Taking HumuLIN R U-500 KwikPen(Insulin Regular Human (Conc)) 500 UNIT/ML Solution Pen-injector 60 units am, 40 units at lunch and 40 units pm Subcutaneous , Taking Jardiance(Empagliflozin) 10 MG Tablet 1 tablet Orally Once a day , Taking Levothyroxine Sodium 150 MCG Tablet TAKE 1 TABLET BY MOUTH EVERY DAY , Taking Losartan Potassium 100 MG Tablet 1 tablet Orally Once a day , Taking Magnesium 250 MG Capsule 1 capsule Orally Once a day , Taking Myrbetriq(Mirabegron ER) 25 MG Tablet Extended Release 24 Hour TAKE 1 TABLET BY MOUTH EVERY DAY Oral , Taking Pantoprazole Sodium 40 MG Tablet Delayed Release TAKE 1 TABLET BY MOUTH TWICE A DAY , Taking Pilocarpine HCl 5 MG Tablet 1 tablet Orally daily , Taking Pravastatin Sodium 40 MG Tablet TAKE 1 TABLET BY MOUTH EVERYDAY AT BEDTIME , Taking Primidone 50 MG Tablet 2 tablet Orally BID , Taking Restasis , Taking Triamcinolone Acetonide 0.1 % Cream APPLY TO AFFECTED AREA TWICE A DAY , Taking Trulicity(Dulaglutide) 3 MG/0.5ML Solution Pen-injector as directed Subcutaneous , Taking Venlafaxine HCl ER 150 MG Capsule Extended Release 24 Hour TAKE 1 CAPSULE BY MOUTH EVERY DAY WITH FOOD FOR 30 DAYS , Taking Vitamin A 2400 MCG (8000 UT) Capsule 1 capsule with food or milk Orally Once a day , Taking Vitamin B Complex - Tablet daily Orally , Taking Vitamin D3 25 MCG Capsule 1 capsule Orally Once a day , Medication List reviewed and reconciled with the patient * Allergies: C apsaicin: hands/feet burning - Allergy, Trazodone: itching all over - Allergy. Objective: * Vitals: W t:188.6lbs, Ht: 62 in, BP:134/80mm Hg, BMI:34.49Index, Ht-cm: 157.48 cm, Wt-k.55 kg. Assessment: * Assessment: 1. [facility] for Medicare annual wellness exam - Z00.00 (Primary) Patient presents [facility] for an initial medicare wellness appointment, patient completed the paperwork for anxiety, depreesion and safety screenings with no concerns, slums memory test completed and the patient scored 29/30. patient has never had a dexa scan, mammogram and colonoscopy are up to date. patient did have a concern about the medication pilocarpine 5mg s he takes the medication once daily and feels she needs a increase, I did ask why and she said because after 3 hours her mouth is very dry a total of 30 minutes was spent with the patient Plan: * Treatment: * Procedure Codes: G 0438 ANNUAL WELL VISIT;INITIAL * Preventive Medicine: Screenings/Counseling: B KS ACTION PLAN Above Normal BMI Follow-up D ietary management education, guidance, and counseling F ALL RISK SCREENING Fall Risk Assessment: N o falls in the past year Are you afraid of falling? N o T OBACCO ACTION PLAN Patient counselled on the dangers of tobacco use and urged to quit. . * * Electronic signature of Karina Hua NP, CAN RUNNER.APARTMENT COMMUNITY MANAGER.[id number] on 11/13/2024 at 02:31 PM EDT Sign off status: Pending Visit Status: C HK (Check Out) * Provider: Terry Arreaga ([facility]), APARTMENT COMMUNITY MANAGER Date: 11/07/2024 Generated for Justus leon/Rose Mary/Cindi on: 11/13/2024 02:31 PM EDT History and Physical Notes * HPI (History of Present Illness) Category Sub-Category Detail Notes Category Not es Medicare Annual Wellness Visit Type of Visit: Initial Annual Wellness Visi t (IAWV) Cognitive Screening: Have you experience d any memory issues or problems with thinking?: No Have your family members, fr iends, caretakers, or others raised any concerns?: No Do you get confused or easily distracted more than you used to?: No Has your ability to concentrate seem to have declined recently?: No Self Assessment of Health: How would you rate your overall health the past four weeks?: Excellent How confident are you that y ou can control and manage most of your health problems?: Very confident How have things been going f or you during the past four weeks?: Very well; could hardly be better During the past four weeks, was someone available to help you if you needed and wanted help?: Yes, as much as I wanted (Example: if you felt nervous, lonely, o r blue; got sick and had to stay in bed; needed someone to talk to; help with daily chores; or needed help just taking care of yourself) Do you have any sexual problems?: No Do you have any troubles eating well?: N o Do you have any problems wit h tiredness or fatigue?: No Have you noticed any hearing difficulties?: No Physical Activity: Do you exercise regularly?: Y es Type of exercise:: ___ Frequency:: ___ Functional Ability and Safety Screening: Do you need assistance with any of the following? Select all that apply.: None Does your home have rugs in the hallway, lack grab bars in the bathroom, lack handrails on the stairs or have poor lighting?: No Do you feel unsteady and/or dizzy when s tanding or walking?: No Do you have smoke detectors in your home and routinely change the batteries?: Yes Do you have a fire extinguisher and know how to use it properly?: Yes Do you have any problems wit h your living situation, food, transportation, utilities, or safety?: No Visual Acuity: N/A Nutrition/Diet: On a typical day, ho w many servings of fruits and vegetables do you consume?: 0 In a typical week, how many servings of fried or high fat (such as cheese, fatty meat) do you consume?: 0 In a typical week, how many servings of high fiber or whole grain foods do you consume?: 0 Seat Belt: Do you always use your seat belt in your car?: Yes Are you having difficulties driving your car?: No Can you get to places out of walking dis tance without help?: Yes Dental: How would you descri be the condition of your mouth and teeth, including any false teeth or dentures?: Excellent Medication List Follow-Up: During the pa st four weeks, how much bodily pain do you have?: No pain Do you have a current opioid prescriptio n?: No Mental Wellness: During the past four weeks, how much have you been bothered by emotional problems such as feeling anxious, depressed, irritable, sad, or downhearted and blue?: Not at all During the past four weeks, has your physical and emotional health limited your social activities with family, friends, neighbors, or groups?: Not at all Sun Exposure: Do you protect yours elf from over exposure to the sun when outdoors?: Yes End of Life Planning: Do you have a living will? : Yes Do you have a Durable Power of Clinical Trial Manager? : Yes Would you like to discuss this topic tod ay?: Yes Other Providers of Care: Care Team derek yao with patient:: Yes, and updates made in [facility] [place] of Care [facility] Agree to complete [facility] Determinants of Health questionnaire: Yes Within the past 12 months, did you worry that your food would run out before you got money to buy more?: No Within the past 12 months, did the food you bought just not last and you didn't have money to buy more?: No Within the past 12 months, have you ever stayed: outside, in a car, in a a tent, in an overnight snf, or temporarily in someone else's home?: No Are you worried about losing your housing?: No Within the past 12 months, have you been able to get utilities (heat, electricity) when it was really needed?: No Within the past 12 months, has a lack of transportation kept you from medical appointments or from doing things needed for daily living?: No Do you feel physically or emotionally unsafe where you currently live?: No Would you like help with any of these needs that you have identified?: No
--- OUTSIDE RECORDS SUMMARY | 2024-11-07 10:11 | XMS_ITS ---
Author Organization [facility] in [place] Address [address] [place] [address] Care Team Providers Care Wiener Packer Name Role Phone Shakira Arreaga Primary Care Provider [phone] Carlos Archie Del Toro [phone] REASON FOR VISIT medicare wellness Medications Medication SIG (Take, Route, Fr equency, Duration) Notes Start Date End Date Status Pilocarpine HCl 5 MG 1 tablet Orally Thr ee times a day for 30 days 09/27/2024 Active Encounters Encounter Location Date Provider Diagnosis [facility] [address] [place] [address] 11/07/2024 Archie Del Toro Screening for osteoporosis Z13.820 Assessments Encounter Date Diagnosis (ICD Code) Assessment Notes Treatment Notes Treatment Clinical Notes Section Notes 11/07/2024 Screening for osteoporosis (ICD-10 - Z13.820) Plan Of Treatment Medication Medication Name Sig Start Date Stop Date Notes Pilocarpine HCl 5 MG 1 tablet Orally Thr ee times a day for 30 days 09/27/2024 Pending Test Test Name Order Date DEXA BONE DENSITY 11/07/2024 Next Appt Details Provider Name:Shakira davila, 01/01/2025 02:30:00 PM, [address] [place], [address], Progress Notes * Renetta BARBOSA ADOB: [birth year] (64 yo F)Acc No.[id number]:11/07/2024 Patient: Renetta OLSON :1960 A ge:64 Y S ex:Female Address:[address] [place] [address] * Refills Refill Pilocarpine HCl Tablet, 5 MG, Orally, 90 Tablet, 1 tablet, Three times a day, 30 days, Refills=11 Subjective: * Chief Complaints: * M edicare wellness * Medical History: * Surgical History: * Hospitalization/Major Diagno stic Procedure: * Medications: Objective: * Vitals: * Physical Examination: Assessment: * Assessment: 1. S creening for osteoporosis - Z13.820 (Primary) Plan: * Treatment: 2. O thers Refill Pilocarpine HCl Tablet, 5 MG, 1 tablet, Orally, Three times a day, 30 days, 90 Tablet, Refills 11. * Procedure Codes: * true * Date: Generated for Justus leon/Rose Mary/Neditting on: 0 11/13/2024 02:31 PM EDT
--- OUTSIDE RECORDS SUMMARY | 2024-11-08 04:58 | XMS_ITS ---
Author Organization [facility] in [place] Address [address] [place] [address] Care Team Providers Care Marine Engineering Professor Name Role Phone Shakira Arreaga Primary Care Provider REASON FOR VISIT mammo results Encounters Encounter Location Date Provider Diagnosis [address] [address] 11/08/2024 Shakira Arreaga Plan Of Treatment Next Appt Details Provider Name:Shakira davila, 01/01/2025 02:30:00 PM, [address] [place], [address], Progress Notes * Renetta BARBOSA ADOB: [birth year] (64 yo F)Acc No.[id number]:11/08/2024 Patient: Rasta Renetta UREÑA :1960 A ge:64 Y S ex:Female Address:[address] [place] [id number] * true * Date: Generated for Justus leon/Rose Mary/eTransmitting on: 0 11/13/2024 02:31 PM EDT
--- OUTSIDE RECORDS SUMMARY | 2024-11-13 14:31 | XMS_ITS | Patient Health Record ---
Author Organization The [facility] [place] Address [address] [place] [address] Care Team Providers Care Production Operations Inspector Name Role Phone Shakira Higgins Primary Care Provider [phone] Anthony Frazier Unavailable [phone] Archie Del Toro Unavailable [phone] Allergies Allergen (clinical drug ingredient) Drug/Non Drug Allergy documented on EMR Reaction Allergy Type Onset Date Status capsaicin Capsaicin hands/feet burning Drug Allergy Active trazodone Trazodone itching all over Drug Allergy Active Results Component Value Reference Range Notes CT lung screening low-dose Reviewed date:12/28/2023 09:37:29 AM Interpretation: Performing Lab: Notes/Report: Source Facility: [place] [id number] CT Scan Report Signed Patient: RENETTA BARBOSA MR#: [id number] : 1960 Acct:[id number] Age/Sex: 63 / F ADM Date: 12/26/23 Loc: CT Attending Dr: SHAKIRA HIGGINS Ordering Physician: SHAKIRA HIGGINS Date of Service: 12/26/23 Procedure(s): CT lung screening low-dose Accession Number(s): [id number] cc: SHAKIRA HIGGINS [place] [address] Patient Name: RENETTA BARBOSA MRN: [facility]:[id number] date: 1960 Sex: F Assigned Patient Location: CT Current Patient Location: Accession/Order Number: [id number] Exam Date: 12/26/2023 13:39 Report Date: 12/28/2023 [...] By: Christiano Valerio M.D. Signed By: 12/28/23 0533 DD/ 9 TD/TT: Application Development Specialist: [place] [address] CT Scan Report Signed Patient: LOUIS BARBOSA MR#: [id number] : 1960 Acct:[id number] Age/Sex: 63 / F ADM Date: 12/26/23 Loc: CT Attending Dr: SHAKIRA HIGGINS Ordering Physician: SHAKIRA HIGGINS Date of Service: 12/26/23 Procedure(s): CT mai g screening low-dose Accession Number(s): [id number] cc: SHAKIRA HIGGINS [place] [id number] Patient Name: RENETTA BARBOSA MRN: [id number]:[id number] date: 1960 Sex: F Assigned Patient Location: CT Current Patient Location: Accession/Order Numb er: [id number] Exam Date: 12/26/2023 13:39 Report Date: 12/28/2023 [...] M.D. Signed By: 12/28/2333 DD/ 9 TD/TT: Application Development Specialist: AMADO Dailey Reviewed date:12/23/2023 11:37:33 AM Interpretation: Performing Lab: Notes/Report: The [facility] , Free T3 2.33 2.18-3.98 pg/mL Performing Lab: see note ML - The [facility] LB GLYCOHEMOGLOBIN A1C Reviewed date:12/23/2023 11:37:33 AM Interpretation: Performing Lab: Notes/Report: The [facility] , Glycohemoglobin A1C 6.9 4.5-6.2 % ADA RECOMMENDED LIMIT 4.0 - 6.0 > 7.0 ACTION SUGGESTED ADA THERAPEUTIC TARGET < 7.0 Estimated Average Glucose 151 Performing Lab: see note ML - [facility] LB INSULIN Reviewed date:12/23/2023 11:37:33 AM Interpretation: Performing Lab: [facility]Report: [facility] Insulin 23.1 2.6-24.9 uIU/mL [address] [place], [place] [id number] Performed at: [facility] Finish Mender: Herve Addison PhD, Phone: [phone] Performing Lab: see note [facility] LIPID PROFILE Reviewed date:12/23/2023 11:37:33 AM Interpretation: Performing Lab: Notes/Report: The [facility] , Triglycerides 193 <=150 mg/dL Cholesterol 164 [...] RISK Performing Lab: see note ML - [facility] LB PHOSPHORUS Reviewed date:12/23/2023 11:37:33 AM Interpretation: Performing Lab: Notes/Report: The [facility] , Phosphorus 3.9 2.6-4.7 mg/dL Performing Lab: see note ML - [facility] LB PROF 14(COMP METB) Reviewed date:12/23/2023 11:37:33 AM Interpretation: Performing Lab: Notes/Report: The [facility] , Sodium 138 136-145 mmol/L Potassium 4.0 [...] Performing Lab: see note ML - [facility] LB T4 Reviewed date:12/23/2023 11:37:33 AM Interpretation: Performing Lab: Notes/Report: The [facility] , T4 Thyroxine 13.10 4.80-13.90 ug/dL Performing Lab: see note ML - [facility] LB TSH Reviewed date:12/23/2023 11:37:33 AM Interpretation: Performing Lab: Notes/Report: The [facility] , Thyroid Stimulating Hormone 0.052 0.358-3.740 uIU/mL Performing Lab: see note ML - [facility] LB VITAMIN D 25 [place] Reviewed date:12/23/2023 11:37:33 AM Interpretation: Performing Lab: Notes/Report: The [facility] , Vitamin D 55.7 20-<30 ng/mL Vit D insufficient <20 ng/mL Vit D deficient >100 ng/mL Potential Toxicity 30-100 ng/mL Vit D sufficient Performing Lab: see note ML - The [facility] LB US right upper quadrant Reviewed date:01/04/2024 08:58:53 AM Interpretation: Performing Lab: Notes/Report: Source Facility: [facility]-[address] [place] [address] [address] Ultrasound Report Signed Patient: RENETTA BARBOSA MR#: [id number] : 1960 Acct:[id number] Age/Sex: 63 / F ADM Date: 01/03/24 Loc: US Attending Dr: SHAKIRA HIGGINS Ordering Physician: SHAKIRA HIGGINS Date of Service: 01/03/24 Procedure(s): US right upper quadrant Accession Number(s): [id number] cc: SHAKIRA HIGGINS [place] [address] Patient Name: RENETTA BARBOSA MRN: [id number] date: 1960 Sex: F Assigned Patient Location: US Current Patient Location: Accession/Order Number: [id number] Exam Date: 01/03/2024 09:30 Report Date: 01/04/2024 [...] M.D. Signed By: 01/04/24610 DD/ 7 TD/TT: Application Development Specialist: [place] [address] Ultrasound Report Signed Patient: LOUIS BARBOSA MR#: [id number] : 1960 Acct:[id number] Age/Sex: 63 / F ADM Date: 01/03/24 Loc: US Attending Dr: SHAKIRA HIGGINS Ordering Physician: SHAKIRA HIGGINS Date of Service: 01/03/24 Procedure(s): US rig ht upper quadrant Accession Number(s): [id number] cc: SHAKIRA HIGGINS [place] [id number] Patient Name: RENETTA BARBOSA MRN: [id number] date: 1960 Sex: F Assigned Patient Location: Current Patient Location: Accession/Order Numb er: [id number] Exam Date: 01/03/2024 09:30 Report Date: 01/04/2024 [...] M.D. Signed By: 01/04/24610 DD/ 7 TD/TT: Application Development Specialist: RADHA Reviewed date:02/27/2024 09:31:50 AM Interpretation: Performing Lab: Notes/Report: The [facility] , Creatine Kinase 95 26-192 U/L Performing Lab: see note ML - The [facility] LB MYOGLOBIN Reviewed date:02/27/2024 09:31:50 AM Interpretation: Performing Lab: Notes/Report: The [facility] , Myoglobin 280 9-82 ng/mL RESULTS CALLED TO RAO HERNANDEZ RN Performing Lab: see note ML - [facility] LB PROF CHEM 8 (BAS METB) Reviewed date:02/27/2024 09:31:50 AM Interpretation: Performing Lab: Notes/Report: The [facility] , Sodium 143 136-145 mmol/L Potassium 3.3 [...] Performing Lab: see note ML - [facility] LB T4 Reviewed date:02/27/2024 09:31:50 AM Interpretation: Performing Lab: Notes/Report: The [facility] , T4 Thyroxine 9.30 4.80-13.90 ug/dL Performing Lab: see note ML - [facility] LB TSH Reviewed date:02/27/2024 09:31:50 AM Interpretation: Performing Lab: Notes/Report: The [facility] , Thyroid Stimulating Hormone 0.058 0.358-3.740 uIU/mL Performing Lab: see note ML - [facility] LB UA RANDOM W or MICROSCOPIC Reviewed date:02/27/2024 09:31:50 AM Interpretation: Performing Lab: Notes/Report: The [facility] , Color Urine YELLOW YELLOW Clarity Urine CLEAR CLEAR Specific [place] Urine 1.020 1.005-1.025 pH Urine 6.0 5.0-9.0 [...] Performing Lab: see note ML - [facility] LB Manual Differential Reviewed date:02/27/2024 09:31:50 AM Interpretation: Performing Lab: Notes/Report: The [facility] , Segmented Neutrophils % Manual 86.0 43.0-75.0 [...] Performing Lab: see note ML - [facility] LB Troponin I High Sensitivity Reviewed date:02/27/2024 09:31:50 AM Interpretation: Performing Lab: Notes/Report: The [facility] , Troponin I High Sensitivity 7.7 4.0-51.3 [...] HAS BEEN CONFIRMED THE DECISION THRESHOLD FOR OK Performing Lab: see note ML - [facility] LB Triiodothyronine (T3) Reviewed date:02/27/2024 01:39:03 PM Interpretation: Performing Lab: Notes/Report: [facility] , Triiodothyronine (T3) 96 71-180 ng/dL [address] [place], [place] [id number] Finish Mender: Herve Addison PhD, Phone: [phone] Performed at: - [facility] Performing Lab: see note - [facility] LB Ethanol Reviewed date:02/27/2024 09:31:50 AM Interpretation: Performing Lab: Notes/Report: The [facility] , Ethanol 4 NOTE: 80 mg/dl is the legal limit for a blood alcohol level Performing Lab: see note ML - [facility] LB XR chest 1V Reviewed date:02/27/2024 09:31:50 AM Interpretation: Performing Lab: Notes/Report: Source Facility: [place] [address] [place] [address] XRay Report Signed Patient: RENETTA BARBOSA MR#: [id number] : 1960 Acct:[id number] Age/Sex: 64 / F ADM Date: 02/25/24 Loc: ER Attending Dr: Ordering Physician: Jake Flowers M.D. Date of Service: 02/25/24 Procedure(s): XR chest 1V Accession Number(s): [id number] cc: SHAKIRA HIGGINS ; Jake Flowers M.D. [place] [id number] Patient Name: RENETTA BARBOSA MRN: [id number] date: 1960 Sex: F Assigned Patient Location: ER Current Patient Location: ED.MAIN Accession/Order Number: [id number] Exam Date: 02/25/2024 11:27 Report Date: 02/25/2024 [...] Dictated By: Anthony Levi M.D. Signed By: 02/25/247 DD/ 24 TD/TT: Application Development Specialist: [place] [address] XRay Report Signed Patient: LOUIS BARBOSA MR#: [id number] : 1960 Acct:[id number] Age/Sex: 64 / F ADM Date: 02/25/24 Loc: ER Attending Dr: Ordering Physician: Jake Flowers M.D. Date of Service: 02/25/24 Procedure(s): XR chest 1V Accession Number(s): [id number] cc: SHAKIRA HIGGINS ; Jake Flowers M.D. The [place] [id number] Patient Name: RENETTA BARBOSA MRN: [id number] date: 1960 Sex: F Assigned Patient Location: ER Current Patient Loca tion: ED.MAIN Accession/Order Numb er: [id number] Exam Date: 11:27 Report Date: 02/25/2024 13:25 [...] Terry Levi M.D. Signed By: 02/25/241326 DD/ 24 TD/TT: Application Development Specialist: US right upper quadrant Reviewed date:04/27/2024 10:06:44 AM Interpretation: Performing Lab: Notes/Report: Source Facility: [place] [address] Ultrasound Report Signed Patient: RENETTA BARBOSA MR#: [id number] : 1960 Acct:[id number] Age/Sex: 64 / F ADM Date: 04/26/24 Loc: US Attending Dr: YOLY FUNES Ordering Physician: YOLY FUNES Date of Service: 04/26/24 Procedure(s): US right upper quadrant Accession Number(s): [id number] cc: YOLY FUNES ; SHAKIRA HIGGINS [place] [address] Patient Name: RENETTA BARBOSA MRN: [id number] date: 1960 Sex: F Assigned Patient Location: US Current Patient Location: US Accession/Order Number: [id number] Exam Date: 04/26/2024 10:31 Report Date: 04/26/2024 [...] M.D. Signed By: 04/26/241423 DD/ 21 TD/TT: Application Development Specialist: [place] [address] Ultrasound Report Signed Patient: LOUIS BARBOSA MR#: [id number] : 1960 Acct:[id number] Age/Sex: 64 / F ADM Date: 04/26/24 Loc: US Attending Dr: YOLY FUNES Ordering Physician: YOLY FUNES Date of Service: 04/26/24 Procedure(s): US rig ht upper quadrant Accession Number(s): [id number] cc: YOLY FUNES ; SHAKIRA HIGGINS [place] [address] Patient Name: RENETTA BARBOSA MRN: [id number] date: 1960 Sex: F Assigned Patient Location: US Current Patient Loca tion: US Accession/Order Numb er: [id number] Exam Date: 10:31 Report Date: 04/26/2024 14:22 [...] M.D. Signed By: 04/26/241423 DD/ 21 TD/TT: Application Development Specialist: US abdomen limited Reviewed date:04/27/2024 10:06:44 AM Interpretation: Performing Lab: Notes/Report: Source Facility: [place] [address] Ultrasound Report Signed Patient: RENETTA BARBOSA MR#: [id number] : 1960 Acct:[id number] Age/Sex: 64 / F ADM Date: 04/26/24 Loc: US Attending Dr: YOLY FUNES Ordering Physician: YOLY FUNES Date of Service: 04/26/24 Procedure(s): US abdomen limited Accession Number(s): [id number] cc: YOLY FUNES ; SHAKIRA HIGGINS [place] [address] Patient Name: RENETTA BARBOSA MRN: [id number] date: 1960 Sex: F Assigned Patient Location: Current Patient Location: Accession/Order Number: [id number] Exam Date: 04/26/2024 10:43 Report Date: 04/26/2024 [...] Dictated By: Kailee Agustin M.D. Signed By: 04/26/241424 DD/ 21 TD/TT: Application Development Specialist: [place] [address] Ultrasound Report Signed Patient: LOUIS BARBOSA MR#: [id number] : 1960 Acct:[id number] Age/Sex: 64 / F ADM Date: 04/26/24 Loc: US Attending Dr: YOLY FUNES Ordering Physician: YOLY FUNES Date of Service: 04/26/24 Procedure(s): US abd omen limited Accession Number(s): [id number] cc: YOLY FUNES ; SHAKIRA HIGGINS [place] [address] Patient Name: RENETTA BARBOSA MRN: [id number] date: 1960 Sex: F Assigned Patient Location: US Current Patient Loca tion: US Accession/Order Numb er: [id number] Exam Date: 10:43 Report Date: 04/26/2024 14:22 [...] By: Ramón Agustin M.D. Signed By: 04/26/24 1425 DD/ 21 TD/TT: Application Development Specialist: CONCETTA romero LT min 3V Reviewed date:04/27/2024 10:06:44 AM Interpretation: Performing Lab: Notes/Report: Source Facility: [facility]-[address] [place] [address] [place] [address] XRay Report Signed Patient: RENETTA BARBOSA MR#: [id number] : 1960 Acct:[id number] Age/Sex: 64 / F ADM Date: 02/29/24 Loc: RAD Attending Dr: Anthony Frazier D.P.M. Ordering Physician: Anthony Frazier D.P.M. Date of Service: 02/29/24 Procedure(s): XR foot LT min 3V Accession Number(s): [id number] cc: SHAKIRA HIGGINS ; Anthony Frazier D.P.M. The [place] [id number] Patient Name: RENETTA BARBOSA MRN: [id number] date: 1960 Sex: F Assigned Patient Location: RAD Current Patient Location: Accession/Order Number: [id number] Exam Date: 02/29/2024 13:21 Report Date: 03/01/2024 [...] M.D. Signed By: 03/01/24823 DD/ 1 TD/TT: Application Development Specialist: [place] [address] XRay Report Signed Patient: LOUIS BARBOSA MR#: [id number] : 1960 Acct:[id number] Age/Sex: 64 / F ADM Date: 02/29/24 Loc: RAD Attending Dr: Anthony Frazier D.P.M. Ordering Physician: Anthony Frazier D.P.M. Date of Service: 02/29/24 Procedure(s): XR freddie t LT min 3V Accession Number(s): [id number] cc: SHAKIRA HIGGINS ; Anthony Frazier D.P.M. [place] [address] Patient Name: RENETTA BARBOSA MRN: [facility]:[id number] date: 1960 Sex: F Assigned Patient Location: [facility] Current Patient Location: Accession/Order Numb er: [id number] Exam Date: 13:21 Report Date: 03/01/2024 08:22 [...] M.D. Signed By: 03/01/24823 DD/ 1 TD/TT: Application Development Specialist: ECG 12 lead Reviewed date:02/27/2024 09:31:50 AM Interpretation: Performing Lab: Notes/Report: Source Facility: [place] [address] [place] [address] Electrocardiograph Report Signed Patient: RENETTA BARBOSA MR#: [id number] : 1960 Acct:[id number] Age/Sex: 64 / F ADM Date: 02/25/24 Loc: ER Attending Dr: Ordering Physician: Jake Flowers M.D. 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 Signed By: 02/26/242052 DD/ 17 TD/TT: Application Development Specialist: [place] [address] Electrocardiograph Report Signed Patient: LOUIS BARBOSA MR#: [id number] : 1960 Acct:[id number] Age/Sex: 64 / F ADM Date: 02/25/24 Loc: ER Attending Dr: Ordering Physician: Jake Flowers M.D. 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 Signed By: 02/26/242052 DD/ 17 TD/TT: Application Development Specialist: CBC AUTO DIFF Reviewed date:02/27/2024 09:31:50 AM Interpretation: Performing Lab: Notes/Report: The [facility] , White Blood Count 6.1 4.0-11.0 10 [...] Performing Lab: see note ML - [facility] LB XR foot LT min 3V Reviewed date:02/27/2024 09:31:50 AM Interpretation: Performing Lab: Notes/Report: Source Facility: [facility]-[address] [place] [address] [place] [address] XRay Report Signed Patient: RENETTA BARBOSA MR#: [id number] : 1960 Acct:[id number] Age/Sex: 64 / F ADM Date: 01/31/24 Loc: EC Attending Dr: Anthony Frazier D.P.M. Ordering Physician: Anthony Frazier D.P.M. Date of Service: 01/31/24 Procedure(s): XR foot LT min 3V Accession Number(s): [id number] cc: SHAKIRA HIGGINS ; Anthony Frazier D.P.M. [place] [address] Patient Name: RENETTA BARBOSA MRN: [id number] date: 1960 Sex: F Assigned Patient Location: Current Patient Location: LAB Accession/Order Number: [id number] Exam Date: 01/31/2024 13:36 Report Date: 02/01/2024 [...] Signed By: 02/01/24 1611 DD/ 1608 TD/TT: Application Development Specialist: [place] [address] XRay Report Signed Patient: LOUIS BARBOSA MR#: [id number] : 1960 Acct:[id number] Age/Sex: 64 / F ADM Date: 01/31/24 Loc: EC Attending Dr: Anthony Frazier D.P.M. Ordering Physician: Anthony Frazier D.P.M. Date of Service: 01/31/24 Procedure(s): XR freddie t LT min 3V Accession Number(s): [id number] cc: SHAKIRA HIGGINS ; Anthony Frazier D.P.M. [address] [address] Patient Name: RENETTA BARBOSA MRN: [id number] date: 1960 Sex: F Assigned Patient Location: Current Patient Loca tion: LAB Accession/Order Numb er: [id number] Exam Date: 01/31/2024 13:36 Report Date: 02/01/2024 [...] By: Ramón Agustin M.D. Signed By: 02/01/24 161 DD/ 1608 TD/TT: Application Development Specialist: SEGMENTAL PRESSURES Reviewed date:02/27/2024 09:31:50 AM Interpretation: Performing Lab: Notes/Report: Source Facility: [place] [address] Vein Report Signed Patient: RENETTA BARBOSA MR#: [id number] : 1960 Acct:[id number] Age/Sex: 63 / F ADM Date: 01/03/24 Loc: Attending Dr: Jv Rodriguez Ordering Physician: Jv Rodriguez Date of Service: 01/03/24 Procedure(s): VC SEGMENTAL PRESSURES Accession Number(s): [id number] cc: SHAKIRA HIGGINS ; Jv Rodriguez [place] [address] Patient Name: RENETTA BARBOSA MRN: [id number] date: 1960 Sex: F Assigned Patient Location: Current Patient Location: Accession/Order Number: [id number] Exam Date: 01/03/2024 08:30 Report Date: 01/03/2024 [...] Signed By: 01/03/24 1235 DD/ 1232 TD/TT: Application Development Specialist: [place] [address] Vein Report Signed Patient: LOUIS BARBOSA MR#: [id number] : 1960 Acct:[id number] Age/Sex: 63 / F ADM Date: 01/03/24 Loc: VC Attending Dr: Gauri Rodriguez Ordering Physician: Jv Rodriguez Date of Service: 01/03/24 Procedure(s): VC SEGMENTAL PRESSURES Accession Number(s): [id number] cc: SHAKIRA HIGGINS ; Jv Rodriguez [address] [address] Patient Name: RENETTA BARBOSA MRN: [id number] date: 1960 Sex: F Assigned Patient Location: Current Patient Loca tion: VC Accession/Order Numb er: [id number] Exam Date: 01/03/2024 08:30 Report Date: 01/03/2024 [...] Signed By: 01/03/24 1235 DD/ 1232 TD/TT: Application Development Specialist: CT FOOT LT WO CON Reviewed date:02/27/2024 09:31:50 AM Interpretation: Performing Lab: Notes/Report: Source Facility: [place] [address] CT Scan Report Signed Patient: RENETTA BARBOSA MR#: [id number] : 1960 Acct:[id number] Age/Sex: 63 / F ADM Date: 01/03/24 Loc: CT Attending Dr: Jv Rodriguez Ordering Physician: Jv Rodriguez Date of Service: 01/03/24 Procedure(s): CT foot LT wo con Accession Number(s): [id number] cc: SHAKIRA HIGGINS [place] [address] Patient Name: RENETTA BARBOSA MRN: [id number] date: 1960 Sex: F Assigned Patient Location: [place] Current Patient Location: Accession/Order Number: [id number] Exam Date: 01/03/2024 10:15 Report Date: 01/03/2024 [...] Signed By: 01/03/24 1542 DD/ 1539 TD/TT: Application Development Specialist: [place] [address] CT Scan Report Signed Patient: LOUIS BARBOSA MR#: [id number] : 1960 Acct:[id number] Age/Sex: 63 / F ADM Date: 01/03/24 Loc: CT Attending Dr: Gauri Rodriguez Ordering Physician: Jv Rodriguez Date of Service: 01/03/24 Procedure(s): CT freddie t LT wo con Accession Number(s): [id number] cc: SHAKIRA HIGGINS [place] [address] Patient Name: RENETTA BARBOSA MRN: [id number] date: 1960 Sex: F Assigned Patient Location: CT Current Patient Loca tion: VC Accession/Order Numb er: [id number] Exam Date: 01/03/2024 10:15 Report Date: 01/03/2024 15:39 At the request of: JV RODRIGUEZ Procedure: CT foot L T wo con [...] Signed By: 01/03/24 1542 DD/ 1539 TD/TT: Application Development Specialist: XR foot LT min 3V Reviewed date:02/27/2024 09:31:50 AM Interpretation: Performing Lab: Notes/Report: Source Facility: [place] [address] XRay Report Signed Patient: RENETTA BARBOSA MR#: [id number] : 1960 Acct:[id number] Age/Sex: 63 / F ADM Date: 12/27/23 Loc: EC Attending Dr: Jv Rodriguez Ordering Physician: Jv Rodriguez Date of Service: 12/27/23 Procedure(s): XR foot LT min 3V Accession Number(s): [id number] cc: SHAKIRA HIGGINS ; Jv Rodriguez [place] [id number] Patient Name: RENETTA BARBOSA MRN: [id number] date: 1960 Sex: F Assigned Patient Location: Current Patient Location: CT Accession/Order Number: [id number] Exam Date: 12/27/2023 10:27 Report Date: 12/28/2023 [...] Signed By: 12/28/23 1318 DD/ 1316 TD/TT: Application Development Specialist: [place] [address] XRay Report Signed Patient: LOUIS BARBOSA MR#: [id number] : 1960 Acct:[id number] Age/Sex: 63 / F ADM Date: 12/27/23 Loc: EC Attending Dr: Gauri Rodriguez Ordering Physician: Jv Rodriguez Date of Service: 12/27/23 Procedure(s): XR freddie t LT min 3V Accession Number(s): [id number] cc: SHAKIRA HIGGINS ; Jv Rodriguez [place] [address] Patient Name: RENETTA BARBOSA MRN: [id number] date: 1960 Sex: F Assigned Patient Location: Current Patient Loca tion: CT Accession/Order Numb er: [id number] Exam Date: 12/27/2023 10:27 Report Date: 12/28/2023 [...] Valerio M.D. Signed By: 12/28/23 1318 DD/ 15 TD/TT: Application Development Specialist: XR foot LT min 3V Reviewed date:12/22/2023 04:37:59 PM Interpretation: Performing Lab: Notes/Report: Source Facility: [place] [address] XRay Report Signed Patient: RENETTA BARBOSA MR#: [id number] : 1960 Acct:[id number] Age/Sex: 63 / F ADM Date: 12/22/23 Loc: LAB Attending Dr: SHAKIRA HIGGINS Ordering Physician: SHAKIRA HIGGINS Date of Service: 12/22/23 Procedure(s): XR foot LT min 3V Accession Number(s): [id number] cc: SHAKIRA HIGGINS [place] [address] Patient Name: RENETTA BARBOSA MRN: [id number] date: 1960 Sex: F Assigned Patient Location: LAB Current Patient Location: LAB Accession/Order Number: [id number] Exam Date: 12/22/2023 15:45 Report Date: 12/22/2023 [...] M.D. Signed By: 12/22/231615 DD/ 13 TD/TT: Application Development Specialist: [place] [id number] XRay Report Signed Patient: LOUIS BARBOSA MR#: [id number] : 1960 Acct:[id number] Age/Sex: 63 / F ADM Date: 12/22/23 Loc: LAB Attending Dr: SHAKIRA HIGGNIS Ordering Physician: SHAKIRA HIGGINS Date of Service: 12/22/23 Procedure(s): XR freddie t LT min 3V Accession Number(s): [id number] cc: SHAKIRA HIGGINS [place] [address] Patient Name: RENETTA BARBOSA MRN: [id number] date: 1960 Sex: F Assigned Patient Location: LAB Current Patient Loca tion: LAB Accession/Order Numb er: [id number] Exam Date: 12/22/2023 15:45 Report Date: 12/22/2023 [...] M.D. Signed By: 12/22/231615 DD/ 13 TD/TT: Application Development Specialist: RALPH BAEZAT RATIO RANDOM Reviewed date:12/23/2023 11:37:33 AM Interpretation: Performing Lab: Notes/Report: The [facility] , Microalbumin Urine Random <1.3 <=30.0 mg/dL Creatinine Urine Random 36.50 20.00-30 0.00 mg/dL Microalbum Creatinine Ratio Ur 35.6 0.0-29.9 mg/g MACROALBUMINURIA >300 MG/G NO MICROALBUMINURIA 0-29 MG/G CLINICAL MICROALBUMINURIA 30-300 MG/G Performing Lab: see note ML - [facility] LB CBC AUTO DIFF Reviewed date:12/23/2023 11:37:33 AM Interpretation: Performing Lab: Notes/Report: The [facility] , White Blood Count 6.5 4.0-11.0 10 [...] see note ML - The [facility] MM tomosynthesis screening B I Reviewed date:10/25/2024 12:12:15 PM Interpretation: Performing Lab: Notes/Report: Source Facility: [facility]-[address] [place] [address] [place] [address] Mammography Report Signed Patient: RENETTA BARBOSA MR#: [id number] : 1960 Acct:[id number] Age/Sex: 64 / F ADM Date: 10/24/24 Loc: MAMMO Attending Dr: LUL DUTTON Ordering Physician: LUL DUTTON Results: Date of Service: 10/24/24 Follow Up: Procedure(s): MM tomosynthesis screening BI Accession Number(s): [id number] cc: SHAKIRA HIGGINS ; LUL DUTTON Patient Name: RENETTA BARBOSA MR#: [id number] : 1960 Exam Date: 10/24/2024 Ordering Doctor: DR LUL DUTTON RADIOLOGY REPORT PROCEDURE: MM TOMOSYNTHESIS SCREENING BI COMPARISON: MM TOMOSYNTHESIS SCREENING BI, 10/21/2023. MG MAMM SCREEN 3D SANTI[place]O CAD, 10/19/2022. MG MAMM SCREEN 3D S[place]O CAD, 07/21/2021. MG MAMM SCREEN S[place]O W CAD, 07/18/2020. INDICATIONS: Screening Calculator Name NCI Breast Cancer Risk Assessment Tool 5 Year Breast Cancer Risk 1.60% Lifetime Breast Cancer Risk 6.40% Personal Breast Cancer No Personal Ovarian Cancer No Treatments None Family Cancers Grandmother-maternal with breast cancer at age 80. LOCATION: The [facility] BREAST COMPOSITION: There are scattered areas of fibroglandular density. FINDINGS: RIGHT BREAST: No significant suspicious finding. Benign-appearing calcifications are present. Benign-appearing lymph nodes are present. LEFT BREAST: No significant suspicious finding. Benign-appearing calcifications are present. Benign-appearing lymph nodes are present. DIAGNOSTIC CATEGORY 2--BENIGN FINDING: RECOMMENDATIONS: ROUTINE MAMMOGRAM AND CLINICAL EVALUATION IN 12 MONTHS. PLEASE NOTE: A NORMAL MAMMOGRAM DOES NOT EXCLUDE THE POSSIBILITY OF BREAST CANCER. A CLINICALLY SUSPICIOUS PALPABLE LUMP SHOULD BE BIOPSIED. Dictated by: Olu Barton MD on 10/25/2024 at 10:03 Approved by: Olu Barton MD on 10/25/2024 at 10:06 Dictated By: Olu Barton M.D. Signed By: 10/25/24 1007 DD/ 1006 TD/TT: Application Development Specialist: [place] [address] Mammography Report Signed Patient: LOUIS BARBOSA MR#: [id number] : 1960 Acct:[id number] Age/Sex: 64 / F ADM Date: 10/24/24 Loc: MAMMO Attending Dr: LUL DUTTON Ordering Physician: LUL DUTTON Results: Date of Service: 09/14 Follow Up: Procedure(s): MM tomosynthesis screening BI Accession Number(s): [id number] cc: SHAKIRA HIGGINS ; LUL DUTTON Patient Name: RENETTA BARBOSA MR#: [id number] : 1960 Exam Date: 10/24/2024 Ordering Doctor: DR LUL DUTTON RADIOLOGY REPORT PROCEDURE: MM TOMOSYNTHESIS SCREENING BI COMPARISON: MM TOMOSYNTHESIS SCREENING BI, 10/21/2023. MG MAMM SCREEN 3D SANTIAGO CAD, 10/19/2022. MG MAMM SCREEN 3D [place]O CAD, 07/21/2021. MG MAMM SCREEN S[place]O W CAD, 07/18/2020. INDICATIONS: Screening Calculator Name NCI Breast Cancer Risk Assessment Tool 5 Year Breast Cancer Risk 1.60% Lifetime Breast Canc er Risk 6.40% Personal Breast Cancer No Personal Ovarian Can cer No Treatments None Family Cancers Grandmother-maternal with breast cancer at age 80. LOCATION: The [facility] BREAST COMPOSITION: There are scattered areas of fibroglandular density. FINDINGS: RIGHT BREAST: No significant suspicious finding. Benign-appearing calcifications are present. Benign-appearing lymph nodes are present. LEFT BREAST: No significant suspicious finding. Benign-appearing calcifications are present. Benign-appearing lymph nodes are present. DIAGNOSTIC CATEGORY 2--BENIGN FINDING: RECOMMENDATIONS: ROUTINE MAMMOGRAM AN D CLINICAL EVALUATION IN 12 MONTHS. PLEASE NOTE: A ANIA L MAMMOGRAM DOES NOT EXCLUDE THE POSSIBILITY OF BREAST CANCER. A CLINICALLY SUSPICIOUS PALPABLE LUMP SHOULD BE BIOPSIED. Dictated by: Olu Barton MD on 10/25/2024 at 10:03 Approved by: Olu Barton MD on 10/25/2024 at 10:06 Dictated By: Olu Barton M.D. Signed By: 10/25/24 1007 DD/ 1006 TD/TT: Application Development Specialist: Reason For Referral Diagnosis 1 Foot fracture, left (S92.902A) Referral Organization [facility] Referring Provider First Name Shakira Referring Provider Last Name Whitley Referring Provider Speciality Family [facility] fe Referred Provider Anthony Frazier Referred Provider Specialty Podiatry Referral Priority Routine Medications Medication SIG (Take, Route, Frequency, Duration) Notes Start Date End Date Status Benadryl Active Trulicity 3 MG/0.5ML as directed Subcutaneous Active Vitamin D3 25 MCG 1 capsule Orally Onc e a day Active Triamcinolone Acetonide 0.1 % APPLY TO AFFECTED AREA TWICE A DAY for 30 Active Magnesium 250 MG 1 capsule Orally Onc e a day Active Restasis Active Calcium 500 MG 2 tablet with meals Orally daily Active Primidone 50 MG 2 tablet Orally BID Active Pravastatin Sodium 40 MG TAKE 1 TABLET B Y MOUTH EVERYDAY AT BEDTIME for 90 days Active Dicyclomine HCl 10 MG TAKE 1 CAPSULE BY MOUTH 4 TIMES A DAY for 90 Active CPAP Supplies -- Mask and Tubing via machine use every night for DX Sleep Apnea for 30 days 04/21/2023 Active CPAP - use as directed with tubing.mask every night for DX Sleep Apnea for 365 days 04/21/2023 Active Breztri Aerosphere 160-9-4.8 MCG/ACT INHALE 2 PUFFS TWICE A DAY DIRECTED for 30 Active Albuterol Sulfate HFA 108 (90 Base) MCG/ACT 2 puff as needed Inhalation every 4 hrs for 30 days 06/27/2023 Active Vitamin A 2400 MCG (8000 UT) 1 capsule with food or milk Orally Once a day Active Venlafaxine HCl ER 150 MG TAKE 1 CAPSULE BY MOUTH EVERY DAY WITH FOOD FOR 30 DAYS for 90 Active Pilocarpine HCl 5 MG 1 tablet Orally Thr ee times a day for 30 days 09/27/2024 Active HumuLIN R U-500 KwikPen 500 UNIT/ML 60 units am, 40 units at lunch and 40 units pm Subcutaneous Active Gabapentin 300 MG 1 capsule Orally Onc e a day Active FreeStyle Hever 2 Sensor - USE DIRECTED for 28 Active Extended Shower Bench - use as directed 09/29/2022 Active Vitamin B Complex - daily Orally Active Estradiol 10 MCG 1 tablet orally twic e weekly Active Pantoprazole Sodium 40 MG TAKE 1 [...] 1 tablet Orally Once a day Active Immunizations Vaccine Route Administration Date Status Comme nts Reevoo Syringe Pre -Filled 30 mcg/0.3 mL Unknown 03/17/2023 Administered Reevoo Syringe Pre -Filled 30 mcg/0.3 mL Unknown 03/27/2024 Administered Flu, (84289) -historic- Whole Unknown 03/27/2024 Admini stered Flu, Flucelvax (76555) 2 yrs +, single-dose syringe () Unknown 06/05/2019 Administered Flu, Flucelvax (34161) 2 yrs +, single-dose syringe () Unknown 02/14/2020 Administered Flu, Flucelvax (06473) 2 yrs +, single-dose syringe () Unknown 06/01/2021 Administered Flu, Flucelvax (81809) 2 yrs +, single-dose syringe () Unknown 03/17/2023 Administered Flu, Fluzone (81178) 6 mos+, single-dose syringe/vial () Unknown 04/12/2016 Administered Flu, Fluzone (48129) 6 mos+, single-dose syringe/vial () Unknown 03/21/2017 Administered Flu, Fluzone (48195) 6 mos+, single-dose syringe/vial () Unknown 04/19/2018 Administered Flu, Fluzone (32471) 6 mos+, single-dose syringe/vial () Unknown 03/24/2022 [...] Problem Status W/U Status Risk Notes Problem 78736947 Essential (primary) hypertension (I10) Active confirmed Problem 08585525 Obstructive slee p apnea (adult) (pediatric) (G47.33) Active confirmed Problem 56952624 Chronic obstructive pulmonary disease, unspecified (J44.9) Active confirmed Problem 327141782 Unspecified mental disorder due to known physiological condition (F09) Active confirmed Problem 151758842 Nicotine dependence, unspecified, uncomplicated (F17.200) Active confirmed Problem 04839136 Anxiety disorder , unspecified (F41.9) Active confirmed Problem 378004716 Essential tremor (G25.0) Active confirmed Problem 53136272 Restless legs syndrome (G25.81) Active confirmed Problem Gastroparesis (305044624) Gastroparesis (K31.84) Active confirmed Problem 941493767722510 Pain in right foot (M79.671) Active confirmed Problem 311236639357803 Pain in left freddie t (M79.672) Active confirmed Problem 20915942 Cramp and spasm (R25.2) Active confirmed Problem 284089645 Repeated falls (R29.6) Active confirmed Problem 856349303 Unspecified urinary incontinence (R32) Active confirmed Problem Hyperlipidemia (91666678) Hyperlipidemia (E78.5) Active confirmed Problem Hypertension (60515011) Hypertension (I10) Active confirmed Problem Gastroesophageal reflux disease (490530393) GERD (gastroesophageal reflux disease) (K21.9) Active confirmed Problem Anxiety (64032278) Anxiety (F41.9) Active confi rmed Problem Restless legs (91457431) Restless leg (G25.81) Active confirmed Problem Hypothyroid (10929643) Hypothyroid (E03.9) Active confirmed Problem Arthritis (8222967) Arthritis (M19.90) Active confirmed Problem Peripheral neuropathy (911844800) Peripheral neuropathy (G62.9) Active confirmed Problem Obstructive sleep apnea (72114316) Obstructive sleep apnea (G47.33) Active confirmed Problem Hypoglycemia (814694946) Hypoglycemia (E16.2) Active confirmed Problem Iron deficiency anemia (96246729) Iron deficiency anemia (D50.9) Active confirmed Problem Arrhythmia (628718783) Arrhythmia (I49.9) Active confirmed Problem Pain in left foot (808192632622127) Left foot pain (M79.672) Active confirmed Problem 22069890814472131 Plantar fasciitis, bilateral (M72.2) Active confirmed Problem Diabetes mellitus (26916867) Diabetes mellitus (E11.9) Active confirmed Problem 793726209 COVID-19 (U07.1) Active confirmed Problem Depression (585320417) Depression (F32.A) Active confirmed Vital Signs Heart Rate 85 /min 02/29/2024 Temperature 97.8 degrees Fahrenheit 02/29/2024 Oximetry 99 % 02/29/2024 Blood pressure diastolic 80 mm Hg 11/07/2024 Height 62 in 11/07/2024 Blood pressure systolic 134 mm Hg 11/07/2024 Weight 188.6 lbs 11/07/2024 BMI 34.49 kg/m2 11/07/2024 Procedures Procedure Date Ordered Date Performed Result Body Sit e NEO Ankle Brachial Index (77527) 12/27/2023 01/03/2024 N/A Encounters Encounter Location Date Provider Diagnosis [facility] (PODIATRY) [address] [place] [address] [place] [address] 01/06/2024 Anthony Frazier Displaced fracture o f fourth metatarsal bone, left foot, initial encounter for closed fracture S92.342A and Displaced fracture of fifth metatarsal bone, left foot, initial encounter for closed fracture S92.352A [facility] (PODIATRY) [address] [place] [address] [place] [address] 01/31/2024 Anthony Frazier Displaced fracture o f fifth metatarsal bone, left foot, initial encounter for closed fracture S92.352A ; Displaced fracture of fourth metatarsal bone, left foot, initial encounter for closed fracture S92.342A and Left foot pain M79.672 [facility] (PODIATRY) [address] [place] [address] [place] [address] 02/29/2024 Anthony Frazier Displaced fracture o f fifth metatarsal bone, left foot, initial encounter for closed fracture S92.352A ; Displaced fracture of fourth metatarsal bone, left foot, initial encounter for closed fracture S92.342A and Pain in left foot M79.[address] [address] 11/07/2024 Shakira Higgins Encounter for Medicare annual wellness exam Z00.00 [facility] (PODIATRY) [address] [place] [address] [place] [address] 12/27/2023 Anthony Frazier Displaced fracture o f fifth metatarsal bone, left foot, initial encounter for closed fracture S92.352A ; Displaced fracture of fourth metatarsal bone, left foot, initial encounter for closed fracture S92.342A ; Dislocation of tarsometatarsal joint of left foot, initial encounter S93.325A ; Nicotine dependence, unspecified, uncomplicated F17.200 and Left foot pain M79.[address] [address] 12/22/2023 Shakira Higgins Wellness examination Z00.00 and Left foot pain M79.[address] [address] 02/28/2024 Shakira Higgins Hypoglycemia E16.2 [facility] [address] [place] [place] [address] 07/03/2024 Shakira Higgins Hypertension I10 ; Cramp and spasm R25.2 and Rectal abnormality K62.9 [facility] [address] [facility] [address] 08/02/2024 Shakira Higgins [facility] [address] [place] [facility] [place] [address] 08/21/2024 Shakira Higgins [facility] [address] [place] [facility] [place] [address] 09/26/2024 Shakira Higgins [facility] [address] [facility] [place] [address] 11/07/2024 Archie Del Toro Screening for osteoporosis Z13.820 [facility] [address] [place] [facility] [address] 11/08/2024 Shakira Higgins [facility] [address] [place] [address] 12/22/2023 Shakira Higgins Foot fracture, left S92.902A [facility] [address] [place] [address] 12/23/2023 Shakira Higgins [facility] [address] [place] [address] 12/23/2023 Shakira Higgins Enlarged liver R16.0 [facility] [address] [place] [facility] [place] [address] 01/04/2024 Shakira Higgins [facility] [address] [place] [place] [address] 07/04/2024 Shakira Higgins [facility] [address] [place] [facility] [address] 07/18/2024 Shakira Higgins Essential (primary) hypertension I10 [facility] [address] [place] [place] [address] 12/22/2023 Shakira Higgins Wellness examination Z00.00 Assessments Encounter Date Diagnosis (ICD Code) Assessment Notes Treatment Notes Treatment Clinical Notes Section Notes 12/22/2023 Left foot pain (ICD-10 - M79.672) 12/22/2023 Wellness examination (ICD-10 - Z00.00) 12/27/2023 Displaced fracture of fourth metatarsal bone, left foot, initial encounter for closed fracture (ICD-10 - S92.342A) 12/27/2023 Displaced fracture of fifth metatarsal bone, [...] in the surgical shoe. RICE therapy and kuib-fqd-[id number] analgesia advised.Follow-u p with Dr. Frazier after CT scan obtained. 01/06/2024 Displaced fracture of fourth metatarsal bone, [...] (ICD-10 - S92.352A) 01/31/2024 Displaced fracture of fourth metatarsal bone, left foot, initial encounter for closed fracture (ICD-10 - S92.342A) 01/31/2024 Displaced fracture of fifth metatarsal bone, [...] to 4 weeks with weightbearing foot x-rays 02/29/2024 Displaced fracture of fourth metatarsal bone, left foot, initial encounter for closed fracture (ICD-10 - S92.342A) 02/29/2024 Displaced fracture of fifth metatarsal bone, left foot, initial encounter for closed fracture (ICD-10 - S92.352A) Patient is doing very well. She may increase activities as she tolerates. I have no restrictions for her. She may follow-up as needed. 02/28/2024 Hypoglycemia (ICD-10 - E16.2) continue monitor has glucose tabs and emergency pen fu Irma bearmicaela skip meals, protein and carbs 07/03/2024 Cramp and spasm (ICD-10 - R25.2) getting worse hands and legs , sometimes back spasms worse at night 07/03/2024 Hypertension (ICD-10 - I10) BP check next week continue monitor high today 11/07/2024 Encounter for Medicare annual wellness exam [...] 30 minutes was spent with the patient 12/22/2023 Wellness examination (ICD-10 - Z00.00) 12/22/2023 Foot fracture, left (ICD-10 - S92.902A) 12/23/2023 Enlarged liver (ICD-10 - R16.0) 07/18/2024 Essential (primary) hypertension (ICD-10 - I10) 11/07/2024 Screening for osteoporosis (ICD-10 - Z13.820) 07/03/2024 Rectal abnormality (ICD-10 - K62.9) fu neuro? 01/31/2024 Left foot pain (ICD-10 - M79.672) 02/29/2024 Pain in left foot (ICD-10 - M79.672) 12/27/2023 Dislocation of tarsometatarsal [...] M/2D COMPLETE 03/14/2023 AFB CULTURE, BLOOD 12/23/2023 DEXA BONE DENSITY 11/07/2024 Next Appt Details Provider Name:Shakira davila, 01/01/2025 02:30:00 PM, [address] [place], [address], Insurance Providers Payer Name Payer Address Payer Phone Subscriber Number Group Number Insured Name Patient Relationship to Insured Coverage Start Date Coverage End Date [facility] [employer]IC[employer] [address] [place] [address] [id number] Renetta Barbosa Self - patient is the insured 5 MEDICAID [place] 2ND INS [address] OFFICE OF [facility] [address] [place], [place] [id number] Renetta Barbosa Self - patient is the [...] Diabetes mellitus E11.9 Surgical History Surgery Date(Month/Year) tubal ligation section tonsillectomy cholecystectomy
--- OUTSIDE RECORDS SUMMARY | 2024-11-13 14:31 | XMS_ITS | Clinical Summary ---
Author Organization [facility] Address [address] [place] [address] Care Team Providers Care Treatment Supervisor Name Role Phone Shakira Arreaga CNP Primary Care Provider [phone] Allergies Active Allergy Reactions Criticality Noted Date Comments Capsaicin 05/24/2023 Tramadol Unknown 01/30/2024 Trazodone 06/21/2023 Medications budesonide-glyco pyr-formoterol (Breztri Aerosphere) 160-9-4.8 mcg/actuation HFA aerosol inhaler INHALE 2 PUFFS TWICE A DAY DIRECTED for 30 3 Active cevimeline (Evoxac) 30 mg capsule 1 capsule every 8 (eight) hours. 3 Active gabapentin (Neurontin) 300 mg capsule Take 300 mg by mouth in the morning. 0 Active insulin regular (HumuLIN R U-500, Conc, Kwikpen) 500 unit/mL (3 mL) CONCENTRATED injection pen 85 units in morning 85 in afternoon 20 in evening 3 Active levothyroxine (Synthroid, Levoxyl) 150 mcg tablet Take 150 mcg by mouth in the morning. 4 Active losartan (Cozaar) 25 mg tablet 25 mg 1 (one) time each day. 3 Active pantoprazole (ProtoNix) 40 mg EC tablet TAKE 1 TABLET BY MOUTH TWICE A DAY for 90 1 Active primidone (Mysoline) 50 mg tablet Take 100 mg by mouth in the morning and at bedtime. 3 Active dulaglutide (Trulicity) 3 mg/0.5 mL pen injector as directed Subcutaneous 3 Active venlafaxine XR (Effexor-XR) 150 mg 24 hr capsule Take 150 mg by mouth in the morning. 0 Active cholecalciferol, vitamin D3, 25 mcg (1,000 unit) tablet,chewable 1 (one) time each day at the same time. Active estradiol (Vagifem) 10 mcg tablet vaginal tablet 1 tablet orally twice weekly 0 Active pravastatin (Pravachol) 40 mg tablet Take 40 mg by mouth at bedtime. Active Jardiance 25 mg Take 25 mg by mouth in the morning. 4 Active Restasis 0.05 % ophthalmic emulsion Administer 1 drop into both eyes every 12 (twelve) hours. 5 Active dicyclomine (Bentyl) 10 mg capsule Take 1 capsule by mouth every 6 (six) hours. 5 Active Myrbetriq 25 mg tablet extended release 24 hr Take 50 mg by mouth in the morning. 4 Active Myrbetriq 50 mg tablet extended release 24 hr Take 1 tablet by mouth in the morning. Active Klayesta 100,000 unit/gram powder apply to affected area twice a day 5 Active tiZANidine (Zanaflex) 4 mg tablet Take 4 mg by mouth every 6 (six) hours if needed. 5 Active melatonin 10 mg tablet Take 10 mg by mouth at bedtime. Active Active Problems Problem Noted Date Diagnosed Date Dizziness 09/03/2024 Dry eyes 08/30/2024 Dry mouth 08/30/2024 Nausea 08/30/2024 Stress incontinence 08/30/2024 Cognitive dysfunction 10/11/2023 Hypersomnia 10/11/2023 Imbalance 10/11/2023 Essential tremor 10/11/2023 PLMD (periodic limb movement disorder) 4 Anxiety 08/02/2023 08/02/2023 Arthritis 08/02/2023 08/02/2023 Obstructive sleep apnea 08/02/2023 08/02/19 Abdominal pain, epigastric 06/21/202306/21 Anal skin tag [...] Description 09/03/2024 11:00 AM EDT Office Visit [place] [address] [place] [address] Edda Velazquez MD Dizziness (Primary [...] Physically or Sexually Abused Not on file Comments Unknown Sex and Gender Information Value Date Recorded Sex Assigned at Not on file Legal Sex Female 9:18 AM EST Gender Identity Not on file Sexual [...] on patient's age to complete this topic Insurance [employer] MEDICARE Care Teams Treatment Supervisor Relationship Specialty Start Date End Date Shakira Arreaga CNP [address] [place] [address] PCP - General Family Medicine 05/31/23
--- OUTSIDE RECORDS SUMMARY | 2024-11-13 14:31 | XMS_ITS | Clinical Summary ---
Author Organization [facility] Address [address] [place] [address] Care Team Providers Care Echocardiography Radiology Technologist Name Role Phone Whitley Shakira Ab MOORE Primary Care Provider [phone] Allergies No known active allergies Medications pantoprazole [...] (FLONASE) 50 mcg/actuation nasal spray Use 1 [place] in each nostril as needed. Active furosemide [...] original vaccine, a ge 12+ yr, monovalent (eASIC - PURPLE TOP) 09/09/2020,08/20/2020 hepatitis B (HepB) [...] is lower risk 8 06/23/2023 Data from: https://www.neighborhoodatlas.medicine.[facility]/. Last address used for calculation [address] [facility] 06/23/2023 Comments No Sex [...] (FIT-DNA) 02/24/2023 02/25/2020 Colorectal Cancer Screening 02/24/2023 Medicare Advantage Annual We llness Visit 05/23/2024 Shingrix Vaccine Completed 06/04/2020, 03/23/2020 Covid-19 Vaccine Completed 03/27/2024, , 03/24/2022, Additional history exists Influenza Vaccine Completed 03/27/2024, , 03/24/2022, Additional history exists Pneumococcal Vaccine: 50+ Completed 05/09/2024, Insurance [facility] DUAL COMPLETE HMO POS SNP Care Teams Echocardiography Radiology Technologist Relationship Specialty Start Date End Date Shakira Arreaga CNP [address] [place], [place] [id number] PCP - General Internal Medicine 08/01/20
--- OUTSIDE RECORDS SUMMARY | 2024-11-13 14:31 | XMS_ITS | Referral Summary ---
Author Organization [facility] Address [address] [place] [address] Care Team Providers Care Chemical Waste Management Technician Name Role Phone Shakira Arreaga CNP Primary Care Provider [phone] Encounters Date Type Department Care Team Description 09/03/2024 11:00 AM EDT Office Visit [facility] [address] [place] [address] Edda Velazquez MD Dizziness (Primary Dx); Primary hypertension; Pure hypercholesterolemia; Type 2 diabetes mellitus with diabetic polyneuropathy, with long-term current use of insulin ([facility]); Smoker; BMI 39.0-39.9,adult; Obstructive sleep apnea [...] EDT Plan of Treatment Not on file Insurance [employer] MEDICARE Care Teams Chemical Waste Management Technician Relationship Specialty Start Date End Date Shakira Arreaga CNP [address] [place] [address] PCP - General Family Medicine 05/31/23
--- OUTSIDE RECORDS SUMMARY | 2024-11-13 14:32 | XMS_ITS | Encounter Summary ---
Author Organization [facility] Address [address] [place] [address] Care Team Providers Care Permaculture Contractor Name Role Phone Shakira Arreaga FLIGHT DATA TECHNICIAN Primary Care Provider + Source Comments In the event this information is protected by the Federal Confidentiality of Alcohol and Drug AbusePatient Records regulations: The Federal rules restrict any use of the information to criminally investigate or prosecute any alcohol or drug abuse patient.[facility] Encounter Details Date Type Department Care Team [...] N ot on file 08/06/2020 Data from: https://www.neighborhoodatlas.medicine.[facility].edu/. Last address used for calculation Not [...] on filedocumented in this encounter Care Teams Permaculture Contractor Relationship Specialty Start Date End Date Shakira Arreaga CNP [address] [place] [id number] PCP - General Internal Medicine 08/01/20 documented as of this encounter
--- OUTSIDE RECORDS SUMMARY | 2024-11-13 14:32 | XMS_ITS | Encounter Summary ---
Author Organization [facility] Address [address] [place] [address] Care Team Providers Care Cabinet Abrasive Sandblaster Name Role Phone Shakira Arreaga TERESA Primary Care Provider + Source Comments In the event this information is protected by the Federal Confidentiality of Alcohol and Drug AbusePatient Records regulations: The Federal rules restrict any use of the information to criminally investigate or prosecute any alcohol or drug abuse patient.[facility] Encounter Details Date Type Department Care Team (Late st Contact Info) Description 08/06/2020 Abstract Hematology/Oncology [address] [facility] [place] [address] Andre Cadet MD [address] [place] [address] Social History Tobacco Use Types Packs/Day Years Used Date Smoking Tobacco: Every Day Area Deprivation Index Answer Date Fantasma rded National Score (1-100), lower number is lower ri sk Not on file 08/06/2020 State Score (1-10), lower number is lower risk N ot on file 08/06/2020 Data from: https://www.neighborhoodatlas.medicine.[facility].edu/. Last address used for calculation [...] on filedocumented in this encounter Care Teams Cabinet Abrasive Sandblaster Relationship Specialty Start Date End Date Shakira Arreaga CNP [address] [place] [address] PCP - General Internal Medicine 08/01/20 documented as of this encounter
--- OUTSIDE RECORDS SUMMARY | 2024-11-13 14:32 | XMS_ITS | Encounter Summary ---
Author Organization [facility] Address [address] [place] [address] Care Team Providers Care Defensive Line Coach Name Role Phone Benjamin Del Toro MD Primary Care Provider [phone] Tj Bradford MD Unavailable [phone] Jasmine Urban Unavailable [phone] Encounter Details Date Type Department Care Team (Late st Contact Info) Description 05/29/2024 Orders Only [facility] [address] [facility] [address] [place] [address] Tj Bradford MD [address] [facility] [address] [place] [address] Social History Tobacco Use Types [...] Department Care Team (Late Contact Info) Description 03/05/2025 1:30 PM EDT Office Visit [facility] [address] [facility] [address] [place] [address] Tj Bradford MD [address] [facility] [address] [place] [address] 03/06/2025 2:20 PM EDT Office Visit [facility] [address] [place] [address] Ze Solis MD [address] [place] [address] 06/04/2025 1:00 PM EST Office Visit [facility] [address] [place] [address] Tj Bradford MD [address] [...] on filedocumented in this encounter Care Teams Defensive Line Coach Relationship Specialty Start Date End Date Benjamin Del Toro MD PCP - General Family Medicine 05/18/23 Tj Bradford MD [address] [place] [address] Obstetrics and Gynecology 05/18/23 Jasmine Urban LISW-S [address] [place] [address] Palletiser Operator Behavioral Health 05/30/24 documented as of this encounter
--- OUTSIDE RECORDS SUMMARY | 2024-11-13 14:32 | XMS_ITS | Encounter Summary ---
Author Organization [facility] Address [address] [place] [address] Care Team Providers Care Tractor Operator Laser Leveling Name Role Phone Benjamin Del Toro MD Primary Care Provider [phone] Tj Bradford MD Unavailable [phone] Jasmine Urban-Ab Unavailable [phone] Encounter Details Date Type Department Care Team (Late Contact Info) Description 10/30/2024 Bamboo flowsheet [facility] [address] [place] [address] Ze Solis MD [address] [place] [address] Social History Tobacco Use Types Packs/Day Years [...] Office Visit [facility] [address] [facility] [address] [place] [address] Tj Bradford MD [address] [facility] [address] [place] [address] 03/06/2025 2:20 PM EDT Office Visit [facility] [address] [place] [address] Ze Solis MD [address] [place] [address] 06/04/2025 1:00 PM EST Office Visit [facility] [address] [place] [address] Tj Bradford MD [address] [place] [address] documented as of this encounter Visit Diagnoses Not on filedocumented in this encounter Care Teams Tractor Operator Laser Leveling Relationship Specialty Start Date End Date Benjamin Del Toro MD PCP - General Family Medicine 05/18/23 Tj Bradford MD [address] [place] [address] Obstetrics and Gynecology 05/18/23 Jasmine Urban LISW-S [address] [place] [address] [facility] 05/30/24 documented as of this encounter
--- OUTSIDE RECORDS SUMMARY | 2024-11-13 14:32 | XMS_ITS | Clinical Summary ---
Author Organization [facility] Address [address] [place] [address] Care Team Providers Care Bicycle Messenger Name Role Phone Benjamin Del Toro MD Primary Care Provider [phone] Lul Bradford MD Unavailable [phone] Jasmine Urban Unavailable [phone] Allergies Active Allergy Reactions Criticality Noted Date Comments Capsaicin 05/24/2023 Tramadol 01/30/2024 Medications clotrimazole (Lotrimin) 1 % cream Apply 1 application topically every 12 (twelve) hours if needed 05/20/20 22 Active cycloSPORINE (Restasis) 0.05 % ophthalmic emulsion [...] the morning and 2 puffs before bedtime. 05/17/20 23 Active Continuous Blood Gluc Sensor (FreeStyle Hever 2 Sensor) misc 05/14/20 23 Active triamcinolone (Kenalog) 0.1 % cream Apply topically in the morning and before bedtime. to affected area. 02/23/20 23 Active venlafaxine XR (Effexor XR) 150 MG 24 hr capsule Take 150 mg by mouth Daily 02/01/20 23 Active cyanocobalamin (Vitamin B-12) 100 MCG tablet Take 1,000 mcg by mouth in the morning. Active cholecalciferol (Vitamin D3) 200 Unit tablet split tablet Take by mouth in the morning. Active beta carotene (vitamin A) 3 MG (72201 UT) capsule Take 10,000 Units by mouth Daily Active thiamine (Vitamin B-1) 50 MG tablet Take 50 mg by mouth Daily Active calcium carbonate (Os-Tanner) 1250 (500 Ca) MG tablet Take by mouth Daily Active dicyclomine (Bentyl) 10 MG capsule Take 10 mg by mouth in the morning and 10 mg at noon and 10 mg in the evening and 10 mg before bedtime. Active pravastatin (Pravachol) 40 MG tablet Take 40 mg by mouth at bedtime 04/21/20 23 Active glucagon (Gvoke HypoPen 2-Pack) 1 MG/0.2ML injection Inject 1 mg under the skin 1 (one) time if needed Active insulin pen needle (B-D ULTRAFINE III SHORT PEN) 31G X 8 mm miscIndications: Type 2 diabetes mellitus with hyperglycemia, with long-term current use of insulin (HCC) Use as instructed 100 each 3 03/05/20 24 Active Myrbetriq 25 MG 24 hr tablet Take 50 mg by mouth Daily 04/09/20 24 Active losartan (Cozaar) 100 MG tablet Take 100 mg by mouth Daily 05/04/20 24 Active Magnesium 400 MG capsule Take 400 mg by mouth Daily Active Zinc Sulfate (ZINC 15 PO) Take by mouth Act amanda loratadine (Claritin) 10 MG tablet Take 10 mg by mouth Daily Active estradiol (Yuvafem) 10 MCG tablet vaginal tabletIndication s:Postmenopausal atrophic vaginitis INSERT 1 TABLET VAGINALLY TWO TIMES A WEEK FOR 90 DAYS 8 tablet 11 06/13/19 25 Active Dulaglutide (Trulicity) 3 MG/0.5ML solution auto-injectorInd ications:Type 2 diabetes mellitus with hyperglycemia (HCC) Inject 3 mg under the skin every 7 (seven) days 2 mL 3 08/04/19 25 Active tiZANidine (Zanaflex) 4 MG tabletIndication s:Insomnia, unspecified type TAKE 1/2-1 TABLET BY MOUTH AT BEDTIME NEEDED 90 tablet 1 08/23/19 25 Active B COMPLEX-C ER PO Take 1 tablet by mouth Daily Active gabapentin (Neurontin) 300 MG capsuleIndicatio ns:Cramp and spasm TAKE 1 CAPSULE BY MOUTH ONCE A DAY AT BEDTIME 30 capsule 3 09/20/19 25 Active nystatin (Mycostatin) 946804 UNIT/GM powderIndication s:Postmenopausal atrophic vaginitis APPLY TO AFFECTED AREA TWICE A DAY 60 g 3 09/27/19 25 Active primidone (Mysoline) 50 MG tabletIndication s:Essential tremor TAKE 2 TABLETS BY MOUTH TWICE A DAY 360 tablet 1 09/28/19 25 Active pilocarpine (Salagen) 5 MG tablet Take 5 mg by mouth Daily Active empagliflozin (Jardiance) 25 MGIndications:Ty pe 2 diabetes mellitus with hyperglycemia (HCC) Take 1 tablet (25 mg) by mouth Daily 90 tablet 1 10/31/19 25 Active insulin regular (HumuLIN R U-500 KWIKPEN) 500 UNIT/ML CONCENTRATED injectionIndicat ions:Type 2 diabetes mellitus with hyperglycemia, unspecified whether custodial insulin use (HCC),Type 2 diabetes mellitus with hyperglycemia (HCC) INJECT 80 UNITS SUBCUTANEOUSLY TWICE A DAY 24 mL 7 10/31/19 25 Active insulin regular (HumuLIN R U-500 KWIKPEN) 500 UNIT/ML CONCENTRATED injectionIndicat ions:Type 2 diabetes mellitus with hyperglycemia (HCC) INJECT 80 UNITS SUBCUTANEOUSLY TWICE A DAY 24 mL 7 03/05/20 24 025 Discontin ued(Reord er) Jardiance 25 MGIndications:Ty pe 2 diabetes mellitus with hyperglycemia (HCC) TAKE 1 TABLET BY MOUTH EVERY DAY 90 tablet 1 05/11/20 24 025 Discontin ued(Reord er) Active Problems Problem Noted Date Diagnosed Date CASSIE (obstructive sleep apnea) 10/11/2023 Restless leg syndrome 10/11/2023 PLMD (periodic limb movement disorder) Hypersomnia 10/11/2023 Insomnia, unspecified 10/11/2023 Obesity 10/11/2023 Essential tremor 10/11/2023 Cognitive dysfunction 10/11/2023 Anxiety 10/11/2023 Imbalance 10/11/2023 Encounters Date Type Department Care Team Description 10/30/2024 2:00 PM EDT Office Visit [facility] [address] [place] [address] Ze Solis MD Insulin long-term use (HCC) (Primary Dx); Type 2 diabetes mellitus with hyperglycemia, unspecified whether custodial insulin use (HCC); Vitamin D deficiency; Encounter for dietary consultation; High risk medication use; Primary hypertension ; Hypoglycemia; Microalbuminuria; Type 2 diabetes mellitus with hyperglycemia (HCC); Acquired hypothyroidism 10/30/2024 Bamboo flowsheet [facility] [address] [place] [address] Ze Solis MD 10/25/2024 Clinisync Result Encounter [facility] External Department Unsolicited Lul Bradford MD 09/27/2024 Refill [place] [address] [place] [address] Chris Sotelo DO Essential tremor 09/26/2024 Refill [facility] [address] [place] [address] Lul Bradford MD Postmenopausal atrophic vaginitis 09/19/2024 Refill [place] [address] [facility] [address] [place] [address] Beatrice Lemus MA Cramp and spasm 09/10/2024 4:00 PM EDT Office Visit [place] [address] [place] [address] Sabrina Cox NP Nonintractable episodic headache, unspecified headache type (Primary Dx); Essential tremor; Cognitive dysfunction; Anxiety; CASSIE (obstructive sleep apnea); Imbalance 09/10/2024 Bamboo flowsheet [place] [address] [place] [address] Sabrina Cox NP 08/30/2024 1:00 PM EDT Office Visit [facility] [address] [place] [address] Lul Bradford MD LGSIL of cervix of undetermined significance (Primary Dx); HPV (human papilloma virus) infection; Surgery follow-up 08/30/2024 Bamboo flowsheet [facility] [address] [place] [address] Lul Bradford MD 08/30/2024 Travel 08/21/2024 Telephone [facility] [address] [place] [address] Genet Khan LPN 08/21/2024 Refill [place] [address] [place] [address] Gi Arriaga NP Insomnia, unspecified type from Last 3 Months Family History Medical [...] Mass Index 34.02 10/30/2024 2:20 PM EDT Plan of Treatment Upcoming Encounters Date Type Department Care Team (Late st Contact Info) Description 03/05/2025 1:30 PM EDT Office Visit [facility] [address] [place] [address] Lul Bradford MD [address] [place] [address] 03/06/2025 2:20 PM EDT Office Visit [facility] [address] [place] [address] Ze Solis MD [address] [place] [address] 06/04/2025 1:00 PM EST Office Visit [facility] [address] [place] [address] Lul Bradford MD [address] [place] [address] Health Maintenance Due Date Last Done Comments CT Colonography 1960 FIT 1960 FOBT 1960 Sigmoidoscopy 1960 FIT-DNA 02/24/2023 02/25/2020 Mammogram 10/25/2025 10/25/2024, 05/29/2024, 04/23 Pap Smear 05/24/2026 05/24/2023 Cervical Cancer Screening 05/29/2029 HPV/Cotest 05/29/2029 05/29/2024 Colonoscopy 04/09/2030 04/09/2020 Colorectal Cancer Screening 04/09/2030 Influenza Vaccine Completed 03/27/2024, , 03/24/2022, Additional history exists Procedures Procedure Name Priority Date/Time Associated Diagnosis Comments POCT GLYCOSYLATED HEMOGLOBIN (HGB A1C) Routine 10/30/2024 2:22 PM EDT Type 2 diabetes mellitus with hyperglycemia, unspecified whether continuous churn buttermaker insulin use (HCC) POCT GLUCOSE Routine 10/30/2024 2:22 PM EDT Type 2 diabetes mellitus with hyperglycemia, unspecified whether custodial insulin use (HCC) MM TOMOSYNTHESIS SCREENING BI 10/25/2024 10:06 AM EDT IGP, APT HPV,RFX 16/18,45 Routine 05/29/2024 12:00 AM EST Cervical cancer screening Screening for HPV (human papillomavirus) THINPREP TIS PAP AND HPV MRNA E6/E7 WITH REFLEX TO HPV 16,18/45 Routine 05/24/2023 3:45 PM EST Cervical cancer screening Screening for HPV (human papillomavirus) from Last 3 Months or Most Recently Relevant to Health Maintenance Results * POCT glycosylated hemoglobin (Hb A1C) docked device (10/30/2024 2:22 PM EDT) Hemoglobin A1C 7.5 Blood Venous blood specimen / Unknown 10/30/2024 2:22 PM EDT us Ze Solis MD POINT OF CARE TEST ENTER/EDIT ORDERABLES Final Result * POCT glucose manually resulted (10/30/2024 2:22 PM EDT) Glucose Blood, POC 360 mg/dL Blood Capillary blood specimen / Unknown 10/30/2024 2:22 PM EDT us Ze Solis MD POINT OF CARE TEST ENTER/EDIT ORDERABLES Final Result * MM TOMOSYNTHESIS SCREENING BI (10/25/2024 10:06 AM EDT) Anatomical Region Laterality Modality Other 10/25/2024 10:0 6 AM EDT Narrative 10/25/2024 10:07 [place] [address] Mammography Report Signed Patient: RENETTA BARBOSA MR#: [id number] : 1960 Acct:[id number] Age/Sex: 64 / F ADM Date: 10/24/24 Loc: MAMMO Attending Dr: LUL BRADFORD Ordering Physician: LLU BRADFORD Results: Date of Service: 10/24/24 Follow Up: Procedure(s): MM tomosynthesis screening BI Accession Number(s): [id number] cc: LUKE HIGGINS ; LUL BRADFORD Patient Name: RENETTA BARBOSA MR#: [id number] : 1960 Exam Date: 10/24/2024 Ordering Doctor: DR LUL BRADFORD RADIOLOGY REPORT PROCEDURE: MM TOMOSYNTHESIS SCREENING BI [...] breast cancer at age 80. LOCATION: [facility] BREAST COMPOSITION: There are scattered areas [...] Signed By: 10/25/24 1007 DD/ 1006 TD/TT: Sap Administrator: Procedure Note Radiology, Radiologist, - 10/25/2024 [place] [address] Mammography Report Signed Patient: RENETTA BARBOSA AMR#: [id number] : 1960Acct:[id number] Age/Sex: 64 / FADM Date: 10/24/24 Loc: MAMMO Attending Dr: LUL BRADFORD Ordering Physician: LUL BRADFORDResults: Date of Service: 10/24/24Follow Up: Procedure(s): MM tomosynthesis screening BI Accession Number(s): [id number] cc: LUKE HIGGINS ; LUL BRADFORD Patient Name: RENETTA BARBOSA MR#: [id number] : 1960 Exam Date: 10/24/2024 Ordering Doctor: DR LUL BRADFORD RADIOLOGY REPORT PROCEDURE: MM TOMOSYNTHESIS SCREENING BI COMPARISON: MM TOMOSYNTHESIS SCREENING BI, 10/21/2023. MG MAMM [id number] SANTIAGO CAD, 10/19/2022. MG MAMM SCREEN 3D SANTIAGO CAD, 07/21/2021. MG MAMM SCREENBIL W CAD, 07/18/2020. INDICATIONS: Screening Calculator Name NCI Breast Cancer Risk Assessment Tool 5 Year Breast Cancer Risk 1.60% Lifetime Breast Cancer Risk 6.40% Personal Breast Cancer No Personal Ovarian Cancer No Treatments None Family Cancers Grandmother-maternal with breast cancer at age 80. LOCATION: [facility] BREAST COMPOSITION: There are scattered areas of fibroglandulardensity. FINDINGS: RIGHT BREAST: No significant suspicious finding. Benign-appearing calcifications are present. Benign-appearing lymph nodes are present. LEFT BREAST: No significant suspicious finding. Benign-appearing calcifications are present. Benign-appearing lymph nodes are present. DIAGNOSTIC CATEGORY 2--BENIGN FINDING: RECOMMENDATIONS: ROUTINE MAMMOGRAM AND CLINICAL EVALUATION IN 12 MONTHS. PLEASE NOTE: A NORMAL MAMMOGRAM DOES NOT EXCLUDE THE POSSIBILITY OFBREAST CANCER. A CLINICALLY SUSPICIOUS PALPABLE LUMP SHOULD BE BIOPSIED. Dictated by: Olu Barton MD on 10/25/2024 at 10:03 Approved by: Olu Barton MD on 10/25/2024 at 10:06 Dictated By: Olu Barton M.D. Signed By:10/25/24 1007 DD/ 1006 TD/TT: Sap Administrator: us Lul Bradford MD [facility] Final Result * (ABNORMAL) IGP, APT HPV,RFX [...] - 06/01/2024 5:06 PM EST Performed at: 01 - [facility] [id number] Shear Scrapman: Marimar Hall MD, Phone: [phone] Performed at: 02 - [facility] [id number] Shear Scrapman: Marimar Hall MD, Phone: [phone] Specimen Comment: No. of containers..01 ThinPrep Vial us Lul Bradford MD LAB BLOOD ORDERABLES Final Res [...] has been evaluated with computer assisted technology. LAUNDRY MARKER SUPERVISOR [facility] Comment: ELP, CT(ASCP) CT Screening Location: [facility] [place] [address] PATHOLOGIST [facility] Comment: Latasha Dotson MD Board Certified in Anatomic and Clinical Pathology Board Certified in Cytopathology (electronic signature) For questions regarding this report call Anatomic Pathology at [phone] (ALWAYS MESSAGE) [facility] Comment: EXPLANATORY NOTE: The [...] Detected (A) Not Detected [facility] Comment: Methodology: Health Care Coordinator-Mediated Amplification This assay detects E6/E7 viral messenger RNA (mRNA) from 14 high-risk HPV types (16,18,31,33,35,39,45,51,52,56,58,59,66,68). Cervical sources are required for HPV testing. If a vaginal source from a patient who has had a total hysterectomy with removal of cervix was submitted, please contact the testing laboratory for alternative testing options. For additional information, please refer to http://education.[employer]/faq/RGE908j7 (This link if provided for information/ educational purposes only.) 05/24/2023 3:45 PM EST 05/25/2023 2:58 AM EST Narrative Resulting Agency Comment Performing Organization Information Site ID: [id number] Name: [facility] Address: [address] [place] [address] Director: Kingston Sen MD Lul Bradford MD LAB CYTOLOGY ORDERABLES Final Result [facility] from Last 3 Months or Most Recently Relevant to Health Maintenance Insurance [employer] MEDICARE Care Teams Bicycle Messenger Relationship Specialty Start Date End Date Benjamin Del Toro MD PCP - General Family Medicine 05/18/23 Lul Bradford MD [address] [place] [address] Obstetrics and Gynecology 05/18/23 Jasmine Urban LISW-S [address] [place] [address] [facility] 05/30/24
== END 2024-11-13 14:30 | disposition home or self-care (01) ==
LOC: RAD 14:29
PROVIDERS: PCP Nurse Practitioner Family; Visit Provider Family Medicine
DX: Z13.820 Encounter for screening for osteoporosis (principal); M85.88 Other specified disorders of bone density and structure, other site
CPT/HCPCS: 77080

== ENCOUNTER 2024-12-24 16:57 | Outpatient (OUT) | payer MEDICARE, SELFPAY ==
--- NOTE | 2024-12-24 | XR_ITS ---
[address] [address] Patient Name: ALBINO BARBOSA MRN: [facility]:[id number] date: 1960 Sex: F Assigned Patient Location: [facility] Current Patient Location: Accession/Order Number: [id number] Exam Date: 12/25/2024 10:04 Report Date: 12/25/2024 10:05 At the request of: LUKE HIGGINS Procedure: XR knee LT 3V LEFT KNEE - 3 views CLINICAL HISTORY: Left knee pain; M25.562 COMPARISON: None FINDINGS: Small joint effusion. No acute bony process. Joint spaces appear maintained. XR/XR knee LT 3V IMPRESSION: SMALL JOINT EFFUSION WITHOUT ACUTE BONY PROCESS. Impression dictated by: Giuseppe Sahu Jr., D.O. 12/25/2024 10:05 AM Dictation Location: [place] [address] Electronically authenticated by: [id number] Y Date: 12/25/2024 10:05
== END 2024-12-24 16:58 | disposition home or self-care (01) ==
PROVIDERS: PCP Nurse Practitioner Family; Visit Provider Nurse Practitioner Family
DX: M25.562 Pain in left knee (principal); M25.462 Effusion, left knee
CPT/HCPCS: 73562

== ENCOUNTER 2024-12-25 10:54 | Outpatient (OUT) | payer MEDICARE, SELFPAY ==
--- NOTE | 2024-12-25 11:00 | US_ITS ---
[place] [address] Patient Name: ALBINO BARBOSA MRN: [facility]:[id number] date: 1960 Sex: F Assigned Patient Location: US Current Patient Location: US Accession/Order Number: [id number] Exam Date: 12/25/2024 12:54 Report Date: 12/25/2024 12:56 At the request of: YOLY FUNES Procedure: US right upper quadrant LIMITED ABDOMINAL ULTRASOUND: CLINICAL HISTORY: ABDUL COMPARISON: None TECHNIQUE: Grayscale and color Doppler images of the right upper quadrant organs were obtained. FINDINGS: Pancreas: Visualized portions appear unremarkable. Liver: Cirrhotic liver. No mass. Hepatopedal flow is seen within the portal vein. Gallbladder: Removed. CBD: 0.5 mm RT KIDNEY: No Hydronephrosis US/US right upper quadrant IMPRESSION: CIRRHOTIC LIVER WITHOUT MASS.. Impression dictated by: Giuseppe Sahu Jr., D.O. 12/25/2024 12:56 PM Dictation Location: [place] [address] Electronically authenticated by: [id number] Y Date: 12/25/2024 12:56
--- NOTE | 2024-12-25 11:46 | US_ITS ---
[place] [address] Patient Name: ALBINO BARBOSA MRN: [facility]:[id number] date: 1960 Sex: F Assigned Patient Location: US Current Patient Location: US Accession/Order Number: [id number] Exam Date: 12/25/2024 12:56 Report Date: 12/25/2024 12:58 At the request of: YOLY FUNES Procedure: US abdomen limited LIMITED ABDOMINAL ULTRASOUND: 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 FINDINGS: Spleen appears normal in size measuring 13 cm without evidence of focal abnormality. US/US abdomen limited IMPRESSION: UNREMARKABLE SPLENIC ULTRASOUND.. Impression dictated by: Giuseppe Sahu Jr., D.O. 12/25/2024 12:58 PM Dictation Location: [place] [address] Electronically authenticated by: [id number] Y Date: 12/25/2024 12:58
== END 2024-12-25 10:55 | disposition home or self-care (01) ==
LOC: US 10:54
PROVIDERS: PCP Nurse Practitioner Family; Visit Provider Internal Medicine Hematology & Oncology
DX: K74.5 Biliary cirrhosis, unspecified (principal); K75.81 Nonalcoholic steatohepatitis (NASH); K74.60 Unspecified cirrhosis of liver; D69.59 Other secondary thrombocytopenia; D73.1 Hypersplenism
CPT/HCPCS: 76705

== ENCOUNTER 2025-01-03 14:29 | Outpatient (OUT) | payer MEDICARE, SELFPAY ==
--- OUTSIDE RECORDS SUMMARY | 2024-12-25 11:32 | XMS_ITS ---
Author Organization [facility] [place] Address [address] [place] [address] Care Team Providers Care Hotel Recreational Facilities Manager Name Role Phone Shakira Arreaga Primary Care Provider [phone] REASON FOR VISIT Knee Xray Encounters Encounter Location Date Provider Diagnosis [address] [address] 12/25/2024 Shakira Arreaga Plan Of Treatment Next Appt Details Provider Name:Shakira davila, 05/02/2025 02:30:00 PM, [address] [place], [address], Progress Notes * Renetta BARBOSA ADOB: [birth year] (64 yo F)Acc No.[id number]:12/25/2024 Patient: Rasta Renteta UREÑA :1960 A ge:64 Y S ex:Female Address:[address] [place] [phone] * true * Date: Generated for Justus leon/Rose Mary/eTransmitting on: 0 01/03/2025 02:33 PM EDT
--- OUTSIDE RECORDS SUMMARY | 2025-01-01 10:30 | XMS_ITS ---
Author Organization [facility] in [place] Address [address] [place] [address] Care Team Providers Care Web Application Developer Name Role Phone Shakira Arreaga Primary Care Provider [phone] Allergies Allergen (clinical drug ingredient) Drug/Non Drug Allergy documented on EMR Reaction Allergy Type Onset Date Status capsaicin Capsaicin hands/feet burning Drug Allergy Active trazodone Trazodone itching all over Drug Allergy Active REASON FOR VISIT 6 month follow up Medications Medication SIG (Take, Route, Frequency, Duration) Notes Start Date End Date Status Vitamin D3 25 MCG 1 capsule Orally Once a day Active Vitamin B Complex - daily Orally Active Vitamin A 2400 MCG (8000 UT) 1 capsule with food or milk Orally Once a day Active Venlafaxine HCl ER 150 MG TAKE 1 CAPSULE BY MOUTH EVERY DAY WITH FOOD FOR 30 DAYS for 90 Active Cevimeline HCl 30 MG TAKE 1 CAPSULE BY MOUTH THREE TIMES A DAY FOR 30 DAYS for 90 days patient does not tolerated pilocarpine due to SE, did not have any SE with cevimeline Active Fosamax 70 MG 1 tablet 30 minutes before the first food, beverage or medicine of the day with plain water Orally weekly for 30 days 01/01/2025 Active Trulicity 3 MG/0.5ML as directed Subcutaneous Active Triamcinolone Acetonide 0.1 % APPLY TO AFFECTED AREA TWICE A DAY for 30 Active Restasis Active Primidone 50 MG 2 tablet Orally BID Active Pravastatin Sodium 40 MG TAKE 1 TABLET BY MOUTH EVERYDAY AT BEDTIME for 90 days Active Pantoprazole Sodium 40 MG TAKE 1 TABLET BY MOUTH TWICE A DAY for 90 Active Myrbetriq 25 MG TAKE 1 TABLET BY MOUTH EVERY DAY Oral for 30 Days Active Magnesium 250 MG 1 capsule Orally Once a day Active Losartan Potassium 100 MG 1 tablet Orally Once a day for 30 days Active FreeStyle Hever 2 Sensor - USE DIRECTED for 28 Active Levothyroxine Sodium 150 MCG TAKE 1 TABLET BY MOUTH EVERY DAY for 90 days Active Jardiance 10 MG 1 tablet Orally Once a day Active HumuLIN R U-500 KwikPen 500 UNIT/ML 60 units am, 40 units at lunch and 40 units pm Subcutaneous Active Gabapentin 300 MG 1 capsule Orally Once a day Active Extended Shower Bench - use as directed 09/29/2022 Active Estradiol 10 MCG 1 tablet orally twice weekly Active Dicyclomine HCl 10 MG TAKE 1 CAPSULE BY MOUTH 4 TIMES A DAY for 90 Active Diclofenac Sodium 75 MG 1 tablet as needed Orally Twice a day for 15 days 12/24/2024 Active CPAP Supplies -- Mask and Tubing via machine use every night for DX Sleep Apnea for 30 days 04/21/2023 Active CPAP - use as directed with tubing.mask every night for DX Sleep Apnea for 365 days 04/21/2023 Active Calcium 500 MG 2 tablet with meals Orally daily Active Breztri Aerosphere 160-9-4.8 MCG/ACT INHALE 2 PUFFS TWICE A DAY DIRECTED for 30 Active Benadryl Active Albuterol Sulfate HFA 108 (90 Base) MCG/ACT 2 puff as needed Inhalation every 4 hrs for 30 days 06/27/2023 Active Social History Tobacco Use: Social History Observation Description Date Details (start date - stop date) Current Smoker NA - NA Tobacco Use/Smoking Question Answer Notes Patient is a current every day smoker AUDIT-C (Standard) Question Answer Notes Did you have a drink containing alcohol in the p ast year? No Points 0 Interpretation Negative Vital Signs Blood pressure systolic 124 mm Hg 01/02/20 25 Blood pressure diastolic 72 mm Hg 025 Height 62 in 01/01/2025 Weight 195.4 lbs 01/01/2025 BMI 35.74 kg/m2 01/01/2025 Encounters Encounter Location Date Provider Diagnosis [address] [address] 01/01/2025 Shakira Whit[place] Osteopenia M85.80 ; Cirrhosis of liver K74.60 ; Dry mouth R68.2 and Nicotine dependence, unspecified, uncomplicated F17.200 Assessments Encounter Date Diagnosis (ICD Code) Assessment Notes Treatment Notes Treatment Clinical Notes Section Notes 01/01/2025 Osteopenia (ICD-10 - M85.80) repeat dexa 2 years 01/01/2025 Cirrhosis of liver (ICD-10 - K74.60) repeat US 6m 01/01/2025 Dry mouth (ICD-10 - R68.2) 01/01/2025 Nicotine dependence, unspecified, uncomplicated (ICD-10 - F17.200) Plan Of Treatment Medication Medication Name Sig Start Date Stop Date Notes Cevimeline HCl 30 MG TAKE 1 CAPSULE BY MOUTH THREE TIMES A DAY FOR 30 DAYS for 90 days patient does not tolerated pilocarpine due to SE, did not have any SE with cevimeline Fosamax 70 MG 1 tablet 30 minutes before the first food, beverage or medicine of the day with plain water Orally weekly for 30 days 01/01/2025 Pilocarpine HCl 5 MG 1 tablet Orally Three times a day 09/27/2024 Treatment Notes Assessment Notes Osteopenia repeat dexa 2 years Cirrhosis of liver repeat US 6m Pending Test Test Name Order Date HEMOGLOBIN A1C (GLYCO) 01/01/2025 IRON, TOTAL 01/01/2025 LIPID PANEL (CHOL/TRIG/HDL/LDL) 01/02/20 25 VITAMIN D, 25 LEVEL (TOTAL) 01/01/2025 Insulin Level 01/01/2025 THYROID PANEL (T4/TSH/FREE T3) CT lung screening low-dose 01/01/2025 CMP (COMP MET [facility]) w/eGFR CKD-EPI 2024 CBC WITH DIFF 01/01/2025 Next Appt Details Follow Up: 3 Months,prn, Ingrid son: Provider Name:Shakira davila, 05/02/2025 02:30:00 PM, [address] [place], [address], Progress Notes * Renetta BARBOSA ADOB: [birth year] (64 yo F)Acc No.[id number]:01/01/2025 Progress Note Patient: Rasta UREÑA Renetta Ochoa Provider: Terry Arreaga ([facility]), [employer]ET[employer] INTERN :1960 A ge:64 Y S ex:Female Date:01/01/2025 Address:[address] [place] [address] [place], [id number] Check In:02:37 PM ESTCheck O ut:03:15 PM EST Subjective: * Chief Complaints: * 1 . 6 month follow up. * HPI: G eneral: knee feeling a little better neuropathy and sleep apnea, sees two diff neuro sees endocrine no GI or cardiology at this time no heme- fu prn, RUQ US every 6 month, order in Jun reviewed dexa scan going to start magnesium glycinate cevimelene - having urinary frequency and incontinence from pilocarpine due for labs, CT lung screening. * ROS: G eneral/Constitutional: Fever d enies. H eadache d enies. W eight loss?denies. O phthalmologic: Discharge d enies. E ye Pain d enies. I tching and redness d enies. E NT: Nasal discharge d enies. N dorene congestion d enies.?Sore throat d enies. C ardiovascular: Chest tightness/ heavy pressure d enies. R apid heart rate d enies. S welling of extremities d enies. C hest pain d enies. ? R espiratory: Productive cough d enies. C hest pain d enies. C ough d enies. S hortness of breath d enies. W heezing d enies. ? G astrointestinal: Abdominal pain d enies. C onstipation d enies. D ecreased appetite d enies. D iarrhea d enies. N ausea d enies. V omiting?denies. G enitourinary: Urinary incontinence d enies. P ainful urination d enies. M usculoskeletal: Joint pain l eft knee improving some. B ack pain d enies. N alisha pain d enies. M uscle aches d enies. S kin: Rash d enies. S kin lesion(s) d enies. ? * Active Problem List K31.84 Gastroparesis Modified On:07/05/2023W/U Status:confirmed E78.5 Hyperlipidemia Modified On:07/05/2023 Status:confirmed I10 Hypertension Modified On:07/05/2023 Status:confirmed K21.9 GERD (gastroesophage al reflux disease) Modified On:07/05/2023 Status:confirmed F41.9 Anxiety Modified On:07/05/2023 Status:confirmed G25.81 Restless leg Modified On:07/05/2023 Status:confirmed E03.9 Hypothyroid Modified On:07/05/2023 Status:confirmed M19.90 Arthritis Modified On:07/05/2023 Status:confirmed G62.9 Peripheral neuropath y Modified On:07/05/2023 Status:confirmed G47.33 Obstructive sleep ap madonna Modified On:07/05/2023 Status:confirmed D50.9 Iron deficiency anem ia Modified On:07/05/2023 Status:confirmed E11.9 Diabetes mellitus Modified On:07/05/2023 Status:confirmed F32.A Depression Modified On:07/05/2023 Status:confirmed M79.671 Pain in right foot Modified On:01/16/2017U Status:confirmed M79.672 Pain in left foot Modified On:01/16/2017U Status:confirmed M72.2 Plantar fasciitis, b ilateral Modified On:01/16/2017U Status:confirmed G25.0 Essential tremor Modified On:09/23/2022U Status:confirmed G25.81 Restless legs syndro me Modified On:09/23/2022 Status:confirmed F41.9 Anxiety disorder, un specified Modified On:09/23/2022 Status:confirmed U07.1 COVID-19 Modified On:10/07/2022 Status:confirmed F09 Unspecified mental d isorder due to known physiological condition Modified On:04/27/2023 Status:confirmed R32 Unspecified urinary incontinence Modified On:03/14/2023 Status:confirmed I10 Essential (primary) hypertension Modified On:03/14/2023U Status:confirmed J44.9 Chronic obstructive pulmonary disease, unspecified Modified On:03/14/2023U Status:confirmed R29.6 Repeated falls Modified On:03/14/2023 Status:confirmed G47.33 Obstructive sleep ap madonna (adult) (pediatric) Modified On:04/21/2023 Status:confirmed I49.9 Arrhythmia Modified On:04/27/2023 Status:confirmed R25.2 Cramp and spasm Modified On:08/19/2023 Status:confirmed M79.672 Left foot pain Modified On:12/27/2023 Status:confirmed F17.200 Nicotine dependence, unspecified, uncomplicated Modified On:12/27/2023 Status:confirmed E16.2 Hypoglycemia Modified On:02/28/2024 Status:confirmed K74.60 Cirrhosis of liver Modified On:12/27/2024 Status:confirmed * Medical History: A rthritis, Memory loss, [...] alive. S on(s): alive, thyroid disease. D aughter(s): alive, thyroid disease, chronic back pain, hernias. [...] hrs , Taking Benadryl , Taking Breztri Aerosphere(Prhzsjm-Qqypdwdagmp-Mizkahccoa) 160-9-4.8 MCG/ACT Aerosol INHALE 2 PUFFS TWICE A DAY DIRECTED , Taking Calcium 500 MG Tablet 2 tablet with meals Orally daily , Taking CPAP - use as directed with tubing.mask every night for DX Sleep Apnea , Taking CPAP Supplies -- -- Mask and Tubing via machine use every night for DX Sleep Apnea , Taking Diclofenac Sodium 75 MG Tablet Delayed Release 1 tablet as needed Orally Twice a day , Taking Dicyclomine HCl 10 MG Capsule [...] HCl 5 MG Tablet 1 tablet Orally Three times a day , Taking Pravastatin Sodium 40 MG Tablet [...] over - Allergy. Objective: * Vitals: W t:195.4lbs, Ht: 62 in, BP:124/72mm Hg, BMI:35.74Index, Ht-cm: 157.48 cm, Wt-k.63 kg. * Examination: G eneral Examinations: GENERAL APPEARANCE: a lert and oriented, in no acute distress, obese. EYES: c onjunctiva normal, sclera non-icteric. NOSE: n ormal external appearance. LUNGS: c lear to auscultation bilaterally. CARDIO: r egular rate and rhythm, S1, S2 normal. ABDOMEN: s oft, nontender. MUSCULOSKELETAL: G ait and station normal. SKIN: w arm and dry. Assessment: * Assessment: 1. C irrhosis of liver - K74.60 (Primary) 2 . O steopenia - M85.80 ? 3 . D ry mouth - R68.2 4 . N icotine dependence, unspecified, uncomplicated - F17.200 Plan: * Treatment: 2. O steopenia Start Fosamax Tablet, 70 MG, 1 tablet 30 minutes before the first food, beverage or medicine of the day with plain water, Orally, weekly, 30 days, 4, Refills 11. Notes: repeat dexa 2 years 3. D ry mouth Stop Pilocarpine HCl Tablet, 5 MG, 1 tablet, Orally, Three times a day; R efill Cevimeline HCl Capsule, 30 MG, TAKE 1 CAPSULE BY MOUTH THREE TIMES A DAY FOR 30 DAYS, 90 days, 270 Capsule, Refills 3, Notes to Pharmacist: patient does not tolerated pilocarpine due to SE, did not have any SE with cevimeline. 4. N icotine dependence, unspecified, uncomplicated I maging: CT lung screening low-dose * Preventive Medicine: Screenings/Counseling: B ND ACTION PLAN Above Normal BMI Follow-up D ietary management education, guidance, and counseling See treatment section of progress note for complete details of management plan. T OBACCO ACTION PLAN Patient counselled on the dangers of tobacco use and urged to quit. . * Follow Up: 3 Months,prn * * Electronically signed by Altagracia Arreaga , ALLIE, [employer]AT OAR MAKER.[employer]ETING INTERN.[id number] on 01/03/2025 at 11:06 AM EDT Sign off status: Completed Visit Status: C HK (Check Out) true * Provider: Terry Arreaga ([facility]), [employer] Date: 01/01/2025 Generated for Justus leon/Rose Mary/eTransmitting on: 01/03/2025 02:32 PM EDT History and Physical Notes * HPI (History of Present Illness) Category Sub-Category Detail Notes Category Not es General knee feeling a little better neuropathy and sleep apnea, sees two diff neuro sees endocrine no GI or cardiology at this time no heme- fu prn, RUQ US every 6 month, order in Jun reviewed dexa scan going to start magnesium glycinate cevimelene - having urinary frequency and incontinence from pilocarpine due for labs, CT lung screening Examination Category Sub-Category Detail Notes Category Not es General Examinations GENERAL APPEARANCE: alert a nd oriented, in no acute distress, obese EYES: conjunctiva normal, sclera non-icteric EARS: NOSE: normal external appe arance THROAT: CARDIO: regular rate and rhy thm, S1, S2 normal LUNGS: clear to auscultatio n bilaterally ABDOMEN: soft, nontender SKIN: warm and dry BACK: MUSCULOSKELETAL: Gait and station nor mal LYMPH NODES:
--- OUTSIDE RECORDS SUMMARY | 2025-01-03 10:27 | XMS_ITS ---
Author Organization [facility] in [place] Address [address] [place] [address] Care Team Providers Care Comfort Station Supervisor Name Role Phone Shakira Arreaga Primary Care Provider REASON FOR VISIT Change med request Encounters Encounter Location Date Provider Diagnosis [facility] [address] [place] [id number] 01/03/2025 Shakira Arreaga Plan Of Treatment Next Appt Details Provider Name:Shakira davila, 05/02/2025 02:30:00 PM, [address] [place], [address], Progress Notes * Renetta BARBOSA ADOB: [birth year] (64 yo F)Acc No.[id number]:01/03/2025 UNLOCKED PROGRESS NOTE Patient: Rasta ARIASRenetta MALAVE :1960 A ge:64 Y S ex:Female Address:[address] [place] [phone] * * Date:
--- OUTSIDE RECORDS SUMMARY | 2025-01-03 14:32 | XMS_ITS | Patient Health Record ---
Author Organization [facility] in [place] Address [address] [place] [address] Care Team Providers Care Personal Support Worker Name Role Phone Shakira Higgins Primary Care Provider Anthony Frazier Unavailable [phone] Archie Del Toro Unavailable [phone] Allergies Allergen (clinical drug ingredient) Drug/Non Drug Allergy documented on EMR Reaction Allergy Type Onset Date Status capsaicin Capsaicin hands/feet burning Drug Allergy Active trazodone Trazodone itching all over Drug Allergy Active Results Component Value Reference Range Notes XR KNEE LT 3V Reviewed date:12/25/2024 03:33:26 PM Interpretation: Performing Lab: Notes/Report: Source Facility: [place] [id number] XRay Report Signed Patient: RENETTA BARBOSA MR#: [id number] : 1960 Acct:[id number] Age/Sex: 64 / F ADM Date: 12/24/24 Loc: RAD Attending Dr: SHAKIRA HIGGINS Ordering Physician: SHAKIRA HIGGINS Date of Service: 12/24/24 Procedure(s): XR knee LT 3V Accession Number(s): [id number] cc: SHAKIRA HIGGINS [place] [address] Patient Name: RENETTA BARBOSA MRN: [facility]:[id number] date: 1960 Sex: F Assigned Patient Location: [facility] Current Patient Location: Accession/Order Number: [id number] Exam Date: 12/25/2024 10:04 Report Date: 12/25/2024 10:05 At the request of: SHAKIRA HIGGINS Procedure: XR knee LT 3V LEFT KNEE - 3 views CLINICAL HISTORY: Left knee pain; M25.562 COMPARISON: None FINDINGS: Small joint effusion. No acute bony process. Joint spaces appear maintained. XR/XR knee LT 3V IMPRESSION: SMALL JOINT EFFUSION WITHOUT ACUTE BONY PROCESS. Impression dictated by: Giuseppe Sahu Jr., D.O. 12/25/2024 10:05 AM Dictation Location: [place] [address] Electronically authenticated by: [id number] Y Date: 12/25/2024 10:05 Dictated By: Giuseppe Sahu M.D. Signed By: 12/25/24 1007 DD/ 1005 TD/TT: Reliner: [place] [address] XRay Report Signed Patient: LOUIS BARBOSA MR#: [id number] : 1960 Acct:[id number] Age/Sex: 64 / F ADM Date: 12/24/24 Loc: [facility] Attending Dr: SHAKIRA HIGGINS Ordering Physician: SHAKIRA HIGGINS Date of Service: 12/24/24 Procedure(s): XR kne e LT 3V Accession Number(s): [id number] cc: SHAKIRA HIGGINS [place] [id number] Patient Name: RENETTA BARBOSA MRN: [facility]:[id number] date: 1960 Sex: F Assigned Patient Loc ation: [facility] Current Patient Location: Accession/Order Numb er: [id number] Exam Date: 12/25/2024 10:04 Report Date: 12/25/2024 10:05 At the request of: SHAKIRA HIGGINS Procedure: XR knee LT 3V LEFT KNEE - 3 views CLINICAL HISTORY: Le ft knee pain; M25.562 COMPARISON: None FINDINGS: Small joint effusion . No acute bony process. Joint spaces appear maintained. X R/XR knee LT 3V IMPRESSION: SMALL JOINT EFFUSION WITHOUT ACUTE BONY PROCESS. Impression dictated by: Giuseppe Sahu Jr., D.O. 12/25/2024 10:05 AM Dictation Location: [place] [address] Electronically authenticated by: [id number] Y Date: 12/25/2024 10:05 Dictated By: Giuseppe Sahu M.D. Signed By: 12/25/24 1007 DD/ 1005 TD/TT: Reliner: US right upper quadrant Reviewed date:01/04/2024 08:58:53 AM Interpretation: Performing Lab: Notes/Report: Source Facility: [place] [address] Ultrasound Report Signed Patient: RENETTA BARBOSA MR#: [id number] : 1960 Acct:[id number] Age/Sex: 63 / F ADM Date: 01/03/24 Loc: US Attending Dr: SHAKIRA HIGGINS Ordering Physician: SHAKIRA HIGGINS Date of Service: 01/03/24 Procedure(s): US right upper quadrant Accession Number(s): [id number] cc: SHAKIRA HIGIGNS [place] [address] Patient Name: RENETTA BARBOSA MRN: [id number] date: 1960 Sex: F Assigned Patient Location: Current Patient Location: Accession/Order Number: [id number] Exam Date: 01/03/2024 09:30 Report Date: 01/04/2024 [...] M.D. Signed By: 01/04/24610 DD/ 7 TD/TT: Reliner: [place] [address] Ultrasound Report Signed Patient: LOUIS BARBOSA MR#: [id number] : 1960 Acct:[id number] Age/Sex: 63 / F ADM Date: 01/03/24 Loc: US Attending Dr: SHAKIRA HIGGINS Ordering Physician: SHAKIRA HIGGINS Date of Service: 01/03/24 Procedure(s): US rig ht upper quadrant Accession Number(s): [id number] cc: SHAKIRA HIGGINS [place] [id number] Patient Name: RENETTA BARBOSA MRN: [facility]:[id number] date: 1960 Sex: F Assigned Patient Loc ation: US Current Patient Location: Accession/Order Numb er: [id number] Exam Date: 01/03/2024 09:30 Report Date: 01/04/2024 [...] M.D. Signed By: 01/04/24610 DD/ 7 TD/TT: Reliner: XR foot LT min 3V Reviewed date:02/27/2024 09:31:50 AM Interpretation: Performing Lab: Notes/Report: Source Facility: [place] [address] XRay Report Signed Patient: RENETTA BARBOSA MR#: [id number] : 1960 Acct:[id number] Age/Sex: 64 / F ADM Date: 01/31/24 Loc: EC Attending Dr: Anthony Frazier D.P.M. Ordering Physician: Anthony Frazier D.P.M. Date of Service: 01/31/24 Procedure(s): XR foot LT min 3V Accession Number(s): [id number] cc: SHAKIRA HIGGINS ; Anthony Frazier D.P.M. The [place] [address] Patient Name: RENETTA BARBOSA MRN: [id number] date: 1960 Sex: F Assigned Patient Location: EC Current Patient Location: LAB Accession/Order Number: [id number] Exam Date: 01/31/2024 13:36 Report Date: 02/01/2024 [...] fifth metatarsal fractures Electronically authenticated by: KAILEE AGUSTNI Date: 02/01/2024 16:08 Dictated By: Kailee Agustin M.D. Signed By: 02/01/24 1611 DD/ 1608 TD/TT: Reliner: [place] [address] XRay Report Signed Patient: LOUIS BARBOSA MR#: [id number] : 1960 Acct:[id number] Age/Sex: 64 / F ADM Date: 01/31/24 Loc: EC Attending Dr: Anthony Frazier D.P.M. Ordering Physician: Anthony Frazier D.P.M. Date of Service: 01/31/24 Procedure(s): XR freddie t LT min 3V Accession Number(s): [id number] cc: SHAKIRA HIGGINS ; Anthony Frazier D.P.M. [place] [id number] Patient Name: RENETTA BARBOSA MRN: [id number]:[id number] date: 1960 Sex: F Assigned Patient Loc ation: EC Current Patient Loca tion: LAB Accession/Order Numb er: [id number] Exam Date: 01/31/2024 13:36 Report Date: 02/01/2024 16:08 At the request of: ANTHONY FRAZIER Procedure: XR foot L T min 3V PROCEDURE: XR foot L T min 3V COMPARISON: 12/27/2023 HISTORY: LEFT FOOT PAIN FINDINGS: BONES:Stable healing fracture neck of the fourth metatarsal. Stable healing complex displaced fr acture involving the diaphysis and neck of the [...] Signed By: 02/01/24 161 DD/ 1608 TD/TT: Reliner: CBC AUTO DIFF Reviewed date:02/27/2024 09:31:50 AM Interpretation: Performing Lab: Notes/Report: [facility] , White Blood Count 6.1 4.0-11.0 [...] Performing Lab: see note ML - [facility] LB CPK Reviewed date:02/27/2024 09:31:50 AM Interpretation: Performing Lab: Notes/Report: [facility] , Creatine Kinase 95 26-192 U/L Performing Lab: see note ML - [facility] LB MYOGLOBIN Reviewed date:02/27/2024 09:31:50 AM Interpretation: Performing Lab: Notes/Report: [facility] , Myoglobin 280 9-82 ng/mL RESULTS CALLED TO RAO HERNANDEZ RN Performing Lab: see note ML - [facility] LB PROF CHEM 8 (BAS METB) Reviewed date:02/27/2024 09:31:50 AM Interpretation: Performing Lab: Notes/Report: [facility] , Sodium 143 136-145 mmol/L Potassium [...] Performing Lab: see note ML - [facility] LB T4 Reviewed date:02/27/2024 09:31:50 AM Interpretation: Performing Lab: Notes/Report: [facility] , T4 Thyroxine 9.30 4.80-13.90 ug/dL Performing Lab: see note ML - [facility] LB TSH Reviewed date:02/27/2024 09:31:50 AM Interpretation: Performing Lab: Notes/Report: [facility] , Thyroid Stimulating Hormone 0.058 0.358-3.740 uIU/mL Performing Lab: see note - [facility] UA RANDOM W or MICROSCOPIC Reviewed date:02/27/2024 09:31:50 AM Interpretation: Performing Lab: Notes/Report: [facility] , Color Urine YELLOW YELLOW Clarity Urine CLEAR CLEAR Specific [place] Urine 1.020 1.005-1.025 pH Urine 6.0 5.0-9.0 [...] NO Performing Lab: see note ML - [facility] LB Manual Differential Reviewed date:02/27/2024 09:31:50 AM Interpretation: Performing Lab: Notes/Report: [facility] , Segmented Neutrophils % Manual 86.0 [...] 3/uL Performing Lab: see note ML - [facility] LB Troponin I High Sensitivity Reviewed date:02/27/2024 09:31:50 AM Interpretation: Performing Lab: Notes/Report: [facility] , Troponin I High Sensitivity 7.7 [...] HAS BEEN CONFIRMED THE DECISION THRESHOLD FOR RI Performing Lab: see note ML - [facility] Triiodothyronine (T3) Reviewed date:02/27/2024 01:39:03 PM Interpretation: Performing Lab: Notes/Report: [facility] Triiodothyronine (T3) 96 71-180 ng/dL [address] [place], [place] [id number] Route Driver Salesperson: Herve Addison PhD, Phone: [phone] [facility] Performing Lab: see note - [facility] Ethanol Reviewed date:02/27/2024 09:31:50 AM Interpretation: Performing Lab: Notes/Report: [facility] , Ethanol 4 NOTE: 80 mg/dl is the legal limit for a blood alcohol level Performing Lab: see note - [facility] ECG 12 lead Reviewed date:02/27/2024 09:31:50 AM Interpretation: Performing Lab: Notes/Report: Source Facility: [place] [address] [place] [address] Electrocardiograph Report Signed Patient: RENETTA BARBOSA MR#: [id number] : 1960 Acct:[id number] Age/Sex: 64 / F ADM Date: 02/25/24 Loc: ER Attending Dr: Ordering Physician: Jake Flowers M.D. Date of Service: 02/25/24 Procedure(s): ECG 12 lead Accession Number(s): [id number] cc: [facility] Test Date: 2024-02-25 Pat Name: RENETTA BARBOSA Department: Room: - Gender: Female Emts: : 1960 Requested By: SHAKIRA HIGGINS Order Number: [id number] Reading MD: DWIGHT JENSEN Measurements Intervals [place] Rate: 83 P: 75 AK: 194 QRS: 49 QRSD: 86 T: 62 QT: 380 QTc: 420 Interpretive Statements 1100 Sinus rhythm 9110 normal ECG Compared to ECG 03/16/2021 20:23:20 No significant changes Electronically Signed On 02-26-2024 20:53:21 EDT by DWIGHT JENSEN Dictated By: Dwight Jensen D.O. Signed By: 02/26/242052 DD/ 1118 TD/TT: Reliner: [place] [address] Electrocardiograph Report Signed Patient: LOUIS BARBOSA MR#: [id number] : 1960 Acct:[id number] Age/Sex: 64 / F ADM Date: 02/25/24 Loc: ER Attending Dr: Ordering Physician: Jake Flowers M.D. Date of Service: 02/25/24 Procedure(s): ECG 12 lead Accession Number(s): [id number] cc: [facility] Test Date: 2024-02-25 Pat Name: RENETTA ANGULO Department: 84 Room: - Gender: Female Emts: : 1960 Requ ested By: SHAKIRA HIGGINS Order Number: [id number] Reading MD: DWIGHT JENSEN Measurements Intervals [place] Rate: 83 P: 75 AK: 194 QRS: 49 QRSD: 86 T: 62 QT: 380 QTc: 420 Interpretive Statements 1100 Sinus rhythm 9110 normal ECG Compared to ECG 02/21 20:23:20 No significant changes Electronically [place] d On 02-26-2024 20:53:21 EDT by DWIGHT JENSEN Dictated By: Osmany Jensen D.ODanna Signed By: 02/26/242052 DD/ 17 TD/TT: Reliner: XR chest 1V Reviewed date:02/27/2024 09:31:50 AM Interpretation: Performing Lab: Notes/Report: Source Facility: [place] [address] XRay Report Signed Patient: RENETTA BARBOSA MR#: [id number] : 1960 Acct:[id number] Age/Sex: 64 / F ADM Date: 02/25/24 Loc: ER Attending Dr: Ordering Physician: Jake Flowers M.D. Date of Service: 02/25/24 Procedure(s): XR chest 1V Accession Number(s): [id number] cc: SHAKIRA HIGGINS ; Jake Flowers M.D. [place] [id number] Patient Name: RENETTA BARBOSA MRN: [id number] date: 1960 Sex: F Assigned Patient Location: ER Current Patient Location: ED.MAIN Accession/Order Number: [id number] Exam Date: 02/25/2024 11:27 Report Date: 02/25/2024 [...] Dictated By: Anthony Levi M.D. Signed By: 02/25/241326 DD/ 24 TD/TT: Reliner: [place] [address] XRay Report Signed Patient: LOUIS BARBOSA MR#: [id number] : 1960 Acct:[id number] Age/Sex: 64 / F ADM Date: 02/25/24 Loc: ER Attending Dr: Ordering Physician: Jake Flowers M.D. Date of Service: 02/25/24 Procedure(s): XR chest 1V Accession Number(s): [id number] cc: SHAKIRA HIGGINS ; Jake Flowers M.D. The [place] [id number] Patient Name: RENETTA BARBOSA MRN: [id number] date: 1960 Sex: F Assigned Patient Loc ation: ER Current Patient Loca tion: ED.MAIN Accession/Order Numb er: [id number] Exam Date: 11:27 Report Date: 02/25/2024 13:25 [...] Dictated By: Terry Levi M.D. Signed By: 02/25/24 1327 DD/ 1325 TD/TT: Reliner: XR foot LT min 3V Reviewed date:04/27/2024 10:06:44 AM Interpretation: Performing Lab: Notes/Report: Source Facility: [place] [address] XRay Report Signed Patient: RENETTA BARBOSA MR#: [id number] : 1960 Acct:[id number] Age/Sex: 64 / F ADM Date: 02/29/24 Loc: RAD Attending Dr: Anthony Frazier D.P.M. Ordering Physician: Anthony Frazier D.P.M. Date of Service: 02/29/24 Procedure(s): XR foot LT min 3V Accession Number(s): [id number] cc: SHAKIRA HIGGINS ; Anthony Frazier D.P.M. [place] [address] Patient Name: RENETTA BARBOSA MRN: [facility]:[id number] date: 1960 Sex: F Assigned Patient Location: [facility] Current Patient Location: Accession/Order Number: [id number] Exam Date: 02/29/2024 13:21 Report Date: 03/01/2024 [...] M.D. Signed By: 03/01/24823 DD/ 1 TD/TT: Reliner: [place] [address] XRay Report Signed Patient: LOUIS BARBOSA MR#: [id number] : 1960 Acct:[id number] Age/Sex: 64 / F ADM Date: 02/29/24 Loc: RAD Attending Dr: Anthony Frazier D.P.M. Ordering Physician: Anthony Frazier D.P.M. Date of Service: 02/29/24 Procedure(s): XR freddie t LT min 3V Accession Number(s): [id number] cc: SHAKIRA HIGGINS ; Anthony Frazier D.P.M. [place] [address] Patient Name: RENETTA BARBOSA MRN: [id number] date: 1960 Sex: F Assigned Patient Loc ation: RAD Current Patient Location: Accession/Order [facility] er: [id number] Exam Date: 13:21 Report Date: 03/01/2024 08:22 At the request of: ANTHONY FRAZIER Procedure: XR foot L T min 3V PROCEDURE: XR foot L T min 3V HISTORY: LEFT FOOT PAIN COMPARISON: XR foot left 01/31/2024 FINDINGS: BONES:Increasing scl erosis and callus formation along margins of the [...] M.D. Signed By: 03/01/24823 DD/ 1 TD/TT: Reliner: US right upper quadrant Reviewed date:04/27/2024 10:06:44 AM Interpretation: Performing Lab: Notes/Report: Source Facility: [place] [address] Ultrasound Report Signed Patient: RENETTA BARBOSA MR#: [id number] : 1960 Acct:[id number] Age/Sex: 64 / F ADM Date: 04/26/24 Loc: US Attending Dr: YOLY FUNES Ordering Physician: YOLY FUNES Date of Service: 04/26/24 Procedure(s): US right upper quadrant Accession Number(s): [id number] cc: YOLY FUNES ; SHAKIRA HIGGINS [place] [address] Patient Name: RENETTA BARBOSA MRN: [id number] date: 1960 Sex: F Assigned Patient Location: US Current Patient Location: US Accession/Order Number: [id number] Exam Date: 04/26/2024 10:31 Report Date: 04/26/2024 [...] M.D. Signed By: 04/26/241423 DD/ 21 TD/TT: Reliner: [place] [address] Ultrasound Report Signed Patient: LOUIS BARBOSA MR#: [id number] : 1960 Acct:[id number] Age/Sex: 64 / F ADM Date: 04/26/24 Loc: US Attending Dr: YOLY FUNES Ordering Physician: YOLY FUNES Date of Service: 04/26/24 Procedure(s): US rig ht upper quadrant Accession Number(s): [id number] cc: YOLY FUNES ; SHAKIRA HIGGINS [place] [address] Patient Name: RENETTA BARBOSA MRN: [id number] date: 1960 Sex: F Assigned Patient Loc ation: US Current Patient Loca tion: US Accession/Order Numb er: [id number] Exam Date: 10:31 Report Date: 04/26/2024 14:22 [...] M.D. Signed By: 04/26/241423 DD/ 21 TD/TT: Reliner: US abdomen limited Reviewed date:04/27/2024 10:06:44 AM Interpretation: Performing Lab: Notes/Report: Source Facility: [place] [address] Ultrasound Report Signed Patient: RENETTA BARBOSA MR#: [id number] : 1960 Acct:[id number] Age/Sex: 64 / F ADM Date: 04/26/24 Loc: US Attending Dr: YOLY FUNES Ordering Physician: YOLY FUNES Date of Service: 04/26/24 Procedure(s): US abdomen limited Accession Number(s): [id number] cc: YOLY FUNES ; SHAKIRA HIGGINS [place] [address] Patient Name: RENETTA BARBOSA MRN: [id number] date: 1960 Sex: F Assigned Patient Location: Current Patient Location: Accession/Order Number: [id number] Exam Date: 04/26/2024 10:43 Report Date: 04/26/2024 14:22 At the request of: OYLY FUNES Procedure: US abdomen limited EXAMINATION: US [...] M.D. Signed By: 04/26/241424 DD/ 21 TD/TT: Reliner: [place] [address] Ultrasound Report Signed Patient: LOUIS BARBOSA MR#: [id number] : 1960 Acct:[id number] Age/Sex: 64 / F ADM Date: 04/26/24 Loc: US Attending Dr: YOLY FUNES Ordering Physician: YOLY FUNES Date of Service: 04/26/24 Procedure(s): US abd omen limited Accession Number(s): [id number] cc: YOLY FUNES ; SHAKIRA HIGGINS [place] [address] Patient Name: RENETTA BARBOSA MRN: [id number] date: 1960 Sex: F Assigned Patient Loc ation: US Current Patient Loca tion: US Accession/Order Numb er: [id number] Exam Date: 10:43 Report Date: 04/26/2024 14:22 [...] Signed By: 04/26/24 1425 DD/ 21 TD/TT: Reliner: KRAIG tomosynthesis screening B I Reviewed date:10/25/2024 12:12:15 PM Interpretation: Performing Lab: Notes/Report: Source Facility: [facility] [place] [address] [place] [address] Mammography Report Signed Patient: RENETTA BARBOSA MR#: [id number] : 1960 Acct:[id number] Age/Sex: 64 / F ADM Date: 10/24/24 Loc: MAMMO Attending Dr: LUL DUTTON Ordering Physician: LUL DUTTON Results: Date of Service: 10/24/24 Follow Up: Procedure(s): MM tomosynthesis screening BI Accession Number(s): [id number] cc: SHAKIRA HIGGINS ; LUL DUTTON Patient Name: RENETTA BARBOSA MR#: [id number] : 1960 Exam Date: 10/24/2024 Ordering Doctor: [...] breast cancer at age 80. LOCATION: [facility] BREAST COMPOSITION: There are scattered areas [...] Signed By: 10/25/24 1007 DD/ 1006 TD/TT: Reliner: [place] [address] Mammography Report Signed Patient: LOUIS BARBOSA MR#: [id number] : 1960 Acct:[id number] Age/Sex: 64 / F ADM Date: 10/24/24 Loc: MAMMO Attending Dr: LUL DUTTON Ordering Physician: LUL DUTTON Results: Date of Service: 09/14 Follow Up: Procedure(s): MM tomosynthesis screening BI Accession Number(s): [id number] cc: SHAKIRA HIGGINS ; LUL DUTTON Patient Name: RENETTA BARBOSA MR#: [id number] : 1960 Exam Date: 10/24/2024 Ordering Doctor: [...] breast cancer at age 80. LOCATION: [facility] BREAST COMPOSITION: There are scattered areas of fibroglandular density. FINDINGS: RIGHT BREAST: No significant suspicious finding. Benign-appearing calcifications are present. Benign-appearing lymph nodes are present. LEFT BREAST: No significant suspicious finding. Benign-appearing calcifications are present. Benign-appearing lymph nodes are present. DIAGNOSTIC CATEGORY 2--BENIGN FINDING: RECOMMENDATIONS: ROUTINE MAMMOGRAM AN D CLINICAL EVALUATION IN 12 MONTHS. PLEASE NOTE: A LISSY L MAMMOGRAM DOES NOT EXCLUDE THE POSSIBILITY OF BREAST CANCER. A CLINICALLY SUSPICIOUS PALPABLE LUMP SHOULD BE BIOPSIED. Dictated by: Olu chanel MD on 10/25/2024 at 10:03 Approved by: Olu chanel MD on 10/25/2024 at 10:06 Dictated By: lOu Barton M.D. Signed By: 10/25/24 1007 DD/ 1006 TD/TT: Reliner: right upper quadrant Reviewed date:12/27/2024 01:27:31 PM Interpretation: Performing Lab: Notes/Report: Source Facility: [place] [address] [place] [address] Ultrasound Report Signed Patient: RENETTA BARBOSA MR#: [id number] : 1960 Acct:[id number] Age/Sex: 64 / F ADM Date: 12/25/24 Loc: US Attending Dr: YOLY FUNES Ordering Physician: YOLY FUNES Date of Service: 12/25/24 Procedure(s): US right upper quadrant Accession Number(s): [id number] cc: YOLY FUNES ; SHAKIRA HIGGINS [place] [address] Patient Name: RENETTA BARBOSA MRN: [id number] date: 1960 Sex: F Assigned Patient Location: US Current Patient Location: US Accession/Order Number: [id number] Exam Date: 12/25/2024 12:54 Report Date: 12/25/2024 12:56 At the request of: YOLY FUNES Procedure: US right upper quadrant LIMITED ABDOMINAL ULTRASOUND: CLINICAL HISTORY: ABDUL COMPARISON: None TECHNIQUE: Grayscale and color Doppler images of the right upper quadrant organs were obtained. FINDINGS: Pancreas: Visualized portions appear unremarkable. Liver: Cirrhotic liver. No mass. Hepatopedal flow is seen within the portal vein. Gallbladder: Removed. CBD: 0.5 mm RT KIDNEY: No Hydronephrosis US/US right upper quadrant IMPRESSION: CIRRHOTIC LIVER WITHOUT MASS.. Impression dictated by: Giuseppe Sahu Jr., D.O. 12/25/2024 12:56 PM Dictation Location: [place] [address] Electronically authenticated by: [id number] Y Date: 12/25/2024 12:56 Dictated By: Giuseppe Sahu M.D. Signed By: 12/25/24 1259 DD/ 1256 TD/TT: Reliner: [place] [address] Ultrasound Report Signed Patient: LOUIS BARBOSA MR#: [id number] : 1960 Acct:[id number] Age/Sex: 64 / F ADM Date: 12/25/24 Loc: US Attending Dr: YOLY FUNES Ordering Physician: YOLY FUNES Date of Service: 12/25/24 Procedure(s): US rig ht upper quadrant Accession Number(s): [id number] cc: YOLY FUNES ; SHAKIRA HIGGINS [place] [address] Patient Name: RENETTA BARBOSA MRN: [id number] date: 1960 Sex: F Assigned Patient Loc ation: US Current Patient Loca tion: US Accession/Order Numb er: [id number] Exam Date: 12/25/2024 12:54 Report Date: 12/25/2024 12:56 At the request of: YOLY FUNES Procedure: US right upper quadrant LIMITED ABDOMINAL ULTRASOUND: CLINICAL HISTORY: ABDUL COMPARISON: None TECHNIQUE: Grayscale and color Doppler images of the right upper quadrant organs were obtained. FINDINGS: Pancreas: Visualized portions appear unremarkable. Liver: Cirrhotic alek er. No mass. Hepatopedal flow is seen within the portal vein. Gallbladder: Removed. CBD: 0.5 mm RT KIDNEY: No Hydronephrosis U S/US right upper quadrant IMPRESSION: CIRRHOTIC LIVER WITH OUT MASS.. Impression dictated by: Giuseppe Sahu Jr., D.O. 12/25/2024 12:56 PM Dictation Location: [place] [address] Electronically authenticated by: [id number] Y Date: 12/25/2024 12:56 Dictated By: Giuseppe Sahu M.D. Signed By: 12/25/24 1259 DD/ 1256 TD/TT: Reliner: US abdomen limited Reviewed date:12/27/2024 01:27:31 PM Interpretation: Performing Lab: Notes/Report: Source Facility: [place] [address] [place] [address] Ultrasound Report Signed Patient: RENETTA BARBOSA MR#: [id number] : 1960 Acct:[id number] Age/Sex: 64 / F ADM Date: 12/25/24 Loc: US Attending Dr: YOLY FUNES Ordering Physician: YOLY FUNES Date of Service: 12/25/24 Procedure(s): US abdomen limited Accession Number(s): [id number] cc: YOLY FUNES ; SHAKIRA HIGGINS [place] [id number] Patient Name: RENETTA BARBOSA MRN: [id number] date: 1960 Sex: F Assigned Patient Location: US Current Patient Location: US Accession/Order Number: [id number] Exam Date: 12/25/2024 12:56 Report Date: 12/25/2024 12:58 At the request of: YOLY FUNES Procedure: US abdomen limited LIMITED ABDOMINAL ULTRASOUND: 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 FINDINGS: Spleen appears normal in size measuring 13 cm without evidence of focal abnormality. US/US abdomen limited IMPRESSION: UNREMARKABLE SPLENIC ULTRASOUND.. Impression dictated by: Giuseppe Sahu Jr., D.O. 12/25/2024 12:58 PM Dictation Location: [place] [address] Electronically authenticated by: [id number] Y Date: 12/25/2024 12:58 Dictated By: Giuseppe Sahu M.D. Signed By: 12/25/24 1300 DD/ 1258 TD/TT: Reliner: [place] [address] Ultrasound Report Signed Patient: LOUIS BARBOSA MR#: [id number] : 1960 Acct:[id number] Age/Sex: 64 / F ADM Date: 12/25/24 Loc: US Attending Dr: YOLY FUNES Ordering Physician: YOLY FUNES Date of Service: 12/25/24 Procedure(s): US abd omen limited Accession Number(s): [id number] cc: YOLY FUNES PAMELA [place] [id number] Patient Name: RENETTA BARBOSA MRN: [facility]:[id number] date: 1960 Sex: F Assigned Patient Loc ation: US Current Patient Loca tion: US Accession/Order Numb er: [id number] Exam Date: 12/25/2024 12:56 Report Date: 12/25/2024 12:58 At the request of: YOLY FUNES Procedure: US abdome n limited LIMITED ABDOMINAL ULTRASOUND: 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 FINDINGS: Spleen appears lissy l in size measuring 13 cm without evidence of focal abnormality. U S/US abdomen limited IMPRESSION: UNREMARKABLE SPLENIC ULTRASOUND.. Impression dictated by: Giuseppe Sahu Jr., DNeo 12/25/2024 12:58 PM Dictation Location: [place] [address] Electronically authenticated by: [id number] Y Date: 12/25/2024 12:58 Dictated By: Giuseppe Sahu M.D. Signed By: 12/25/24 1300 DD/ 1258 TD/TT: Reliner: Reason For Referral No Information Medications Medication SIG (Take, Route, Frequency, Duration) Notes Start Date End Date Status FreeStyle Hever 2 Sensor - USE DIRECTED for 28 Active Extended Shower Bench - use as directed 09/29/2022 Active Estradiol 10 MCG 1 tablet orally twice weekly Active Dicyclomine HCl 10 MG TAKE 1 CAPSULE BY MOUTH 4 TIMES A DAY for 90 Active Diclofenac Sodium 75 MG 1 tablet as needed Orally Twice a day for 15 days 12/24/2024 Active Vitamin D3 25 MCG 1 capsule Orally Once a day Active CPAP Supplies -- Mask and Tubing via machine use every night for DX Sleep Apnea for 30 days 04/21/2023 Active Vitamin B Complex - daily Orally Active CPAP - use as directed with tubing.mask every night for DX Sleep Apnea for 365 days 04/21/2023 Active Vitamin A 2400 MCG (8000 UT) 1 capsule with food or milk Orally Once a day Active Calcium 500 MG 2 tablet with meals Orally daily Active Venlafaxine HCl ER 150 MG TAKE 1 CAPSULE BY MOUTH EVERY DAY WITH FOOD FOR 30 DAYS for 90 Active Breztri Aerosphere 160-9-4.8 MCG/ACT INHALE 2 PUFFS TWICE A DAY DIRECTED for 30 Active Trulicity 3 MG/0.5ML as directed Subcutaneous Active Cevimeline HCl 30 MG TAKE 1 CAPSULE BY MOUTH THREE TIMES A DAY FOR 30 DAYS for 90 days patient does not tolerated pilocarpine due to SE, did not have any SE with cevimeline Active Benadryl Active Triamcinolone Acetonide 0.1 % APPLY TO AFFECTED AREA TWICE A DAY for 30 Active Restasis Active Primidone 50 MG 2 tablet Orally BID Active Fosamax 70 MG 1 tablet 30 minutes before the first food, beverage or medicine of the day with plain water Orally weekly for 30 days 01/01/2025 Active Pravastatin Sodium 40 MG TAKE 1 [...] lunch and 40 units pm Subcutaneous Active Albuterol Sulfate HFA 108 (90 Base) MCG/ACT 2 puff as needed Inhalation every 4 hrs for 30 days 06/27/2023 Active Gabapentin 300 MG 1 capsule Orally Once a day Active Immunizations Vaccine Route Administration Date Status Comme nts [employer] Syringe Pre -Filled 30 mcg/0.3 mL Unknown 03/17/2023 Administered [employer] Syringe Pre -Filled 30 mcg/0.3 mL Unknown 03/27/2024 Administered Flu, (93878) -historic- Whole Unknown 03/27/2024 Admini stered Flu, Flucelvax (63160) 2 yrs +, single-dose syringe (5036-8930) Unknown 06/05/2019 Administered Flu, Flucelvax (48501) 2 yrs +, single-dose syringe (3552-8202) Unknown 02/14/2020 Administered Flu, Flucelvax (11125) 2 yrs +, single-dose syringe (4460-8571) Unknown 06/01/2021 Administered Flu, Flucelvax (30494) 2 yrs +, single-dose syringe (1983-1025) Unknown 03/17/2023 Administered Flu, Fluzone (88126) 6 mos+, single-dose syringe/vial () Unknown 04/12/2016 Administered Flu, Fluzone (09109) 6 mos+, single-dose syringe/vial () Unknown 03/21/2017 Administered Flu, Fluzone (81829) 6 mos+, single-dose syringe/vial () Unknown 04/19/2018 Administered Flu, Fluzone (37864) 6 mos+, single-dose syringe/vial () Unknown 03/24/2022 [...] Problem Status W/U Status Risk Notes Problem 13446604 Essential (primary) hypertension (I10) Active confirmed Problem 28323051 Obstructive slee p apnea (adult) (pediatric) (G47.33) Active confirmed Problem 98744131 Chronic obstructive pulmonary disease, unspecified (J44.9) Active confirmed Problem 095533559 Unspecified mental disorder due to known physiological condition (F09) Active confirmed Problem 638734678 Nicotine dependence, unspecified, uncomplicated (F17.200) Active confirmed Problem 67429008 Anxiety disorder , unspecified (F41.9) Active confirmed Problem 518911949 Essential tremor (G25.0) Active confirmed Problem 39761257 Restless legs syndrome (G25.81) Active confirmed Problem Gastroparesis (624100544) Gastroparesis (K31.84) Active confirmed Problem 091417698626912 Pain in right foot (M79.671) Active confirmed Problem 277088225339629 Pain in left freddie t (M79.672) Active confirmed Problem 18375301 Cramp and spasm (R25.2) Active confirmed Problem 487219448 Repeated falls (R29.6) Active confirmed Problem 043868627 Unspecified urinary incontinence (R32) Active confirmed Problem Hyperlipidemia (10341449) Hyperlipidemia (E78.5) Active confirmed Problem Hypertension (28279774) Hypertension (I10) Active confirmed Problem Gastroesophageal reflux disease (417970167) GERD (gastroesophageal reflux disease) (K21.9) Active confirmed Problem Anxiety (08579615) Anxiety (F41.9) Active confi rmed Problem Restless legs (29860510) Restless leg (G25.81) Active confirmed Problem Hypothyroid (71778782) Hypothyroid (E03.9) Active confirmed Problem Arthritis (2861421) Arthritis (M19.90) Active confirmed Problem Peripheral neuropathy (737049038) Peripheral neuropathy (G62.9) Active confirmed Problem Obstructive sleep apnea (50823236) Obstructive sleep apnea (G47.33) Active confirmed Problem Hypoglycemia (789488929) Hypoglycemia (E16.2) Active confirmed Problem Iron deficiency anemia (52730470) Iron deficiency anemia (D50.9) Active confirmed Problem Arrhythmia (892277650) Arrhythmia (I49.9) Active confirmed Problem Pain in left foot (428901160989796) Left foot pain (M79.672) Active confirmed Problem Cirrhosis of liver (95736899) Cirrhosis of liver (K74.60) Active confirmed Problem 30088253354671436 Plantar fasciitis, bilateral (M72.2) Active confirmed Problem Diabetes mellitus (02349189) Diabetes mellitus (E11.9) Active confirmed Problem 632186443 COVID-19 (U07.1) Active confirmed Problem Depression (875019188) Depression (F32.A) Active confirmed Vital Signs Heart Rate 85 /min 02/29/2024 Temperature 97.8 degrees Fahrenheit 02/29/2024 Blood pressure diastolic 72 mm Hg 01/01/2025 Oximetry 99 % 02/29/2024 Height 62 in 01/01/2025 Blood pressure systolic 124 mm Hg 01/01/2025 Weight 195.4 lbs 01/01/2025 BMI 35.74 kg/m2 01/01/2025 Encounters Encounter Location Date Provider Diagnosis [facility] [address] [facility] [place] [address] 01/03/2025 Shakira Higgins [facility] [address] [place] [address] 08/02/2024 Shakira Higgins [facility] [address] [place] [address] 08/21/2024 Shakira Higgins [facility] [address] [facility] [place] [address] 09/26/2024 Shakira Higgins [facility] [address] [place] [place] [address] 11/07/2024 Archie Del Toro Screening for osteoporosis Z13.820 [facility] [address] [facility] [place] [address] 11/08/2024 Shakira Higgins [facility] [address] [place] [address] 12/25/2024 Shakira Higgins [facility] [address] [place] [facility] [place] [address] 01/04/2024 Shakira Higgins [facility] [address] [facility] [place] [address] 07/04/2024 Shakira Higgins [facility] [address] [facility] [place] [address] 07/18/2024 Shakira Higgins Essential (primary) hypertension I10 [facility] [address] [facility] [place] [address] 02/28/2024 Shakira Higgins Hypoglycemia E16.2 [facility] [address] [facility] [place] [address] 07/03/2024 Shakira Higgins Hypertension I10 ; Cramp and spasm R25.2 and Rectal abnormality K62.9 [facility] [address] [facility] [place] [address] 01/01/2025 Shakira Higgins Osteopenia M85.80 ; Cirrhosis of liver K74.60 ; Dry mouth R68.2 and Nicotine dependence, unspecified, uncomplicated F17.200 [facility] [address] [facility] [place] [address] 12/24/2024 Shakira Higgins Left knee pain M25.562 [facility] (PODIATRY) [address] [place] [address] [place] [address] 01/06/2024 Anthony Frazier Displaced fracture of fourth metatarsal bone, left foot, initial encounter for closed fracture S92.342A and Displaced fracture of fifth metatarsal bone, left foot, initial encounter for closed fracture S92.352A [facility] (PODIATRY) [address] [place] [address] [place] [address] 01/31/2024 Anthony Frazier Displaced fracture of fifth metatarsal bone, left foot, initial encounter for closed fracture S92.352A ; Displaced fracture of fourth metatarsal bone, left foot, initial encounter for closed fracture S92.342A and Left foot pain M79.672 [facility] (PODIATRY) [address] [place] [address] [place] [address] 02/29/2024 Anthony Frazier Displaced fracture of fifth metatarsal bone, left foot, initial encounter for closed fracture S92.352A ; Displaced fracture of fourth metatarsal bone, left foot, initial encounter for closed fracture S92.342A and Pain in left foot M79.672 [facility] [address] [place] [address] 11/07/2024 Shakira Higgins Encounter for Medicare annual wellness exam Z00.00 Assessments Encounter Date Diagnosis (ICD Code) Assessment Notes Treatment Notes Treatment Clinical Notes Section Notes 01/06/2024 Displaced fracture of fourth metatarsal bone, [...] , sometimes back spasms worse at night 11/07/2024 Encounter for Medicare annual wellness exam [...] 30 minutes was spent with the patient 12/24/2024 Left knee pain (ICD-10 - M25.562) 07/18/2024 Essential (primary) hypertension (ICD-10 - I10) 11/07/2024 Screening for osteoporosis (ICD-10 - Z13.820) 01/01/2025 Osteopenia (ICD-10 - M85.80) repeat dexa 2 years 01/01/2025 Cirrhosis of liver (ICD-10 - K74.60) repeat US 6m 02/29/2024 Displaced fracture of fifth metatarsal bone, [...] Pain in left foot (ICD-10 - M79.672) 01/01/2025 Dry mouth (ICD-10 - R68.2) 07/03/2024 Rectal abnormality (ICD-10 - K62.9) fu neuro? 01/31/2024 Left foot pain (ICD-10 - M79.672) 01/01/2025 Nicotine dependence, unspecified, uncomplicated (ICD-10 - F17.200) 07/03/2024 Other neo or vein clinic Plan Of Treatment Pending Test Test Name Order Date Holter Test 03/14/2023 CMP (COMPLETE METABOLIC PANEL) 4 CMP (COMPLETE METABOLIC PANEL) 3 CMP (COMPLETE METABOLIC PANEL) 4 UA (URINALYSIS, COMPLETE) 12/07/2022 HEMOGLOBIN A1C (GLYCO) 12/22/2023 HEMOGLOBIN A1C (GLYCO) 01/01/2025 HEMOGLOBIN A1C (GLYCO) 12/22/2023 INSULIN, TOTAL 12/22/2023 INSULIN, TOTAL 12/22/2023 IRON, TOTAL 01/01/2025 LIPID PANEL (CHOL/TRIG/HDL/LDL) 01/02/20 25 LIPID PANEL (CHOL/TRIG/HDL/LDL) 12/22/19 24 LIPID PANEL (CHOL/TRIG/HDL/LDL) 12/22/19 24 CBC WITH DIFF 12/22/2023 CBC WITH DIFF 12/22/2023 CBC WITH DIFF 12/31/2022 VITAMIN D, 25 LEVEL (TOTAL) 01/01/2025 XR Abdomen AP (1 view) (KUB) * 5 XR Foot LT (3 views) * 01/31/2024 XR Foot LT (3 views) * 02/29/2024 XR Foot LT (3 views) * 12/22/2023 XR Foot LT (3 views) * 12/27/2023 CT Foot LT w/o contrast * (Optional 3D R endering) 12/27/2023 US Liver 12/23/2023 US Renals and Bladder 12/07/2022 URINE CULTURE 12/07/2022 AFP 12/31/2022 Insulin Level 01/01/2025 CT Chest Low Dose for Screening* 024 IRON, TIBC w SAT AND FERRITIN 12/31/2022 Culture, AFB with Smear 12/23/2023 STOOL OCCULT BLOOD 12/22/2023 STOOL OCCULT BLOOD 12/22/2023 GLYCOHEMOGLOBIN A1C 01/17/2023 THYROID PANEL (T4/TSH/FREE T3) 3 THYROID PANEL (T4/TSH/FREE T3) 5 THYROID PANEL (T4/TSH/FREE T3) 4 THYROID PANEL (T4/TSH/FREE T3) 4 ECHOCARDIO M/2D COMPLETE 03/14/2023 CT lung screening low-dose 01/01/2025 AFB CULTURE, BLOOD 12/23/2023 DEXA BONE DENSITY 11/07/2024 CMP (COMP MET MOBLEY) w/eGFR CKD-EPI 2024 CBC WITH DIFF 01/01/2025 Next Appt Details Provider Name:Shakira Berger Arlen davila, 05/02/2025 02:30:00 PM, [address] [facility], [place], [address], Insurance Providers Payer Name Payer Address Payer Phone Subscriber Number Group Number Insured Name Patient Relationship to Insured Coverage Start Date Coverage End Date [facility] [employer] [address] [place] [address] [phone] [id number] Renetta Barbosa Self - patient is the insured 5 MEDICAID [place] 2ND INS [address] [place], [place] [id number] [phone] [id number] Renetta Barbosa Self - patient is the [...]
--- OUTSIDE RECORDS SUMMARY | 2025-01-03 14:32 | XMS_ITS | Encounter Summary ---
Author Organization [facility] Address [address] [place] [address] Care Team Providers Care Gourmet Coffee Attendant Name Role Phone Benjamin Del Toro MD Primary Care Provider [phone] Tj Bradford MD Unavailable [phone] Jasmine Urban Unavailable [phone] Encounter Details Date Type Department Care Team (Late Contact Info) Description 05/29/2024 Orders Only [facility] [address] [facility] [address] [place] [address] Tj Bradford MD [address] [facility] [address] [place] [address] Social History Tobacco Use Types [...] Description 03/05/2025 1:30 PM EDT Office Visit [facility] [address] [facility] [address] [place] [address] Tj Bradford MD [address] [facility] [address] [place] [address] 03/06/2025 2:20 PM EDT Office Visit [facility] [address] [place] [address] Ze Solis MD [address] [place] [address] 06/04/2025 1:00 PM EST Office Visit [facility] [address] [place] [address] Tj Bradford MD [address] [place] [address] documented as of this encounter Procedures Procedure Name Priority Date/Time Associated Diagnosis Comments MAMMOGRAM* Routine 05/29/2024 3:07 PM EST documented in this encounter Results * MAMMOGRAM* (05/29/2024 3:07 PM EST) Anatomical Region Laterality Modality Radiographic Noa ging us Tj Bradford MD IMG XR PROCEDURES Final Result documented in this encounter Visit Diagnoses Not on filedocumented in this encounter Care Teams Gourmet Coffee Attendant Relationship Specialty Start Date End Date Benjamin Del Toro MD PCP - General Family Medicine 05/18/23 Tj Bradford MD [address] [place] [address] Obstetrics and Gynecology 05/18/23 Jasmine Urban [facility] [address] [place] [address] [employer] Behavioral Health 05/30/24 documented as of this encounter
--- OUTSIDE RECORDS SUMMARY | 2025-01-03 14:32 | XMS_ITS | Clinical Summary ---
Author Organization [facility] Address [address] [place] [address] Care Team Providers Care Senior Embedded Software Engineer Name Role Phone Whitley Shakira Ab MOORE Primary Care Provider [phone] Allergies No known active allergies Medications pantoprazole [...] (FLONASE) 50 mcg/actuation nasal spray Use 1 [place] in each nostril as needed. Active furosemide [...] original vaccine, a ge 12+ yr, monovalent (Si TV - PURPLE TOP) 09/09/2020,08/20/2020 hepatitis B (HepB) [...] is lower risk 8 06/23/2023 Data from: https://www.neighborhoodatlas.medicine.[facility]/. Last address used for calculation [address] [facility] 06/23/2023 Comments No Sex and Gender [...] Medicare Advantage Annual We llness Visit 05/23/2024 Influenza Vaccine (#1) 2025 4, 03/17/2023, 03/24/2022, Additional history exists Shingrix Vaccine Completed 06/04/2020, 03/23/2020 Pneumococcal Vaccine: 50+ Completed 05/09/2024, Procedures Procedure Name Priority Date/Time Associated Diagnosis Comments EXTERNAL IMAGING 12/26/2024 2:08 PM EDT from Last 3 Months Results * EXTERNAL IMAGING (12/26/2024 2:08 PM EDT) Anatomical Region Laterality Modality Other External Provider [facility] Final Res ult from Last 3 Months Insurance Care Teams Senior Embedded Software Engineer Relationship Specialty Start Date End Date Shakira Arreaga CNP [address] [place] [address] PCP - General Internal Medicine 08/01/20
--- OUTSIDE RECORDS SUMMARY | 2025-01-03 14:32 | XMS_ITS | Clinical Summary ---
Author Organization [facility] Address [address] [address] Care Team Providers Care Customer Experience Leader Name Role Phone Shakira Arreaga CNP Primary Care Provider [phone] Allergies Active Allergy Reactions Criticality Noted Date [...] (restless legs syndrome) 06/21/2023 Smoker 06/21/2023 06/21/2023 Family History Medical History Relation Name Comments [...] 2024 03/27/2024, 03/17/2023, 03/24/2022, Additional history exists Influenza Vaccine (#1) 2025 , 03/17/2023, 03/24/2022, Additional history exists Colonoscopy 04/09/2030 04/09/2020 Colorectal Cancer Screening 04/09/2030 Zoster Vaccines Completed 06/04/2020, 03/23/2020 Pneumococcal Vaccine: Pediatrics (0 to 5 Years) [...] topic Insurance [employer] MEDICARE Care Teams Customer Experience Leader Relationship Specialty Start Date End Date Shakira Arreaga CNP [address] [place] [address] PCP - General Family Medicine 05/31/23
--- OUTSIDE RECORDS SUMMARY | 2025-01-03 14:32 | XMS_ITS | Clinical Summary ---
Author Organization [facility] Address [address] [place] [address] Care Team Providers Care Litigation Claim Representative Name Role Phone Benjamin Del Toro MD Primary Care Provider [phone] Lul Bradford MD Unavailable [phone] Jasmine Urban Unavailable [phone] Allergies Active Allergy Reactions Criticality Noted Date [...] Active beta carotene (vitamin A) 3 MG (42968 UT) capsule Take 10,000 Units by mouth [...] III SHORT PEN) 31G X 8 mm miscIndications:T ype 2 diabetes mellitus with hyperglycemia, with long-term [...] Active estradiol (Yuvafem) 10 MCG tablet vaginal tabletIndications :Postmenopausal atrophic vaginitis INSERT 1 TABLET VAGINALLY TWO TIMES A WEEK FOR 90 DAYS 8 tablet 11 06/13/19 25 Active Dulaglutide (Trulicity) 3 MG/0.5ML solution auto-injectorIndi cations:Type 2 diabetes mellitus with hyperglycemia (HCC) Inject 3 mg under the skin every 7 (seven) days 2 mL 3 08/04/19 25 Active tiZANidine (Zanaflex) 4 MG tabletIndications :Insomnia, unspecified type TAKE 1/2-1 TABLET BY MOUTH AT BEDTIME NEEDED 90 tablet 1 08/23/19 25 Active B COMPLEX-C ER PO Take 1 tablet by mouth Daily Active gabapentin (Neurontin) 300 MG capsuleIndication s:Cramp and spasm TAKE 1 CAPSULE BY MOUTH ONCE A DAY AT BEDTIME 30 capsule 3 09/20/19 25 Active nystatin (Mycostatin) 514854 UNIT/GM powderIndications :Postmenopausal atrophic vaginitis APPLY TO AFFECTED AREA TWICE A DAY 60 g 3 09/27/19 25 Active primidone (Mysoline) 50 MG tabletIndications :Essential tremor TAKE 2 TABLETS BY MOUTH TWICE A DAY 360 tablet 1 09/28/19 25 Active pilocarpine (Salagen) 5 MG tablet Take 5 mg by mouth Daily Active empagliflozin (Jardiance) 25 MGIndications:Typ e 2 diabetes mellitus with hyperglycemia (HCC) Take 1 tablet (25 mg) by mouth Daily 90 tablet 1 10/31/19 25 Active insulin regular (HumuLIN R U-500 KWIKPEN) 500 UNIT/ML CONCENTRATED injectionIndicati ons:Type 2 diabetes mellitus with hyperglycemia, unspecified whether senior living insulin use (HCC),Type 2 diabetes mellitus with hyperglycemia (HCC) INJECT 80 UNITS SUBCUTANEOUSLY TWICE A DAY 24 mL 7 10/31/19 25 Active Active Problems Problem Noted Date Diagnosed Date CASSIE (obstructive sleep apnea) 10/11/2023 Restless leg syndrome 10/11/2023 PLMD (periodic limb movement disorder) Hypersomnia 10/11/2023 Insomnia, unspecified 10/11/2023 Obesity 10/11/2023 Essential tremor 10/11/2023 Cognitive dysfunction 10/11/2023 Anxiety 10/11/2023 Imbalance 10/11/2023 Encounters Date Type Department Care Team Description 10/30/2024 2:00 PM EDT Office Visit [facility] [address] [place] [phone] Ze Solis MD Insulin long-term use (HCC) (Primary Dx); Type 2 diabetes mellitus with hyperglycemia, unspecified whether senior living insulin use (HCC); Vitamin D deficiency; Encounter for dietary consultation; High risk medication use; Primary hypertension ; Hypoglycemia; Microalbuminuria; Type 2 diabetes mellitus with hyperglycemia (HCC); Acquired hypothyroidism 10/30/2024 Bamboo flowsheet [facility] [address] [place] [phone] Ze Solis MD 10/25/2024 Clinisync Result Encounter [facility] External Department Unsolicited Lul Bradford MD from Last 3 Months Family History Medical [...] 03/05/2025 1:30 PM EDT Office Visit [facility] [address] [place] [phone] Lul Bradford MD [address] [place] [address] 03/06/2025 2:20 PM EDT Office Visit [facility] [address] [place] [phone] Ze Solis MD [address] [place] [address] 06/04/2025 1:00 PM EST Office Visit [facility] [address] [place] [phone] Lul Bradford MD [address] [place] [address] Health Maintenance Due Date Last Done Comments CT Colonography 1960 FIT 1960 FOBT 1960 Sigmoidoscopy 1960 FIT-DNA 02/24/2023 02/25/2020 Influenza Vaccine (#1) 2025 , 03/17/2023, 03/24/2022, Additional history exists Mammogram 10/25/2025 10/25/2024, 05/29/2024, 04/23 Pap Smear 05/24/2026 05/24/2023 Cervical Cancer Screening 05/29/2029 HPV/Cotest 05/29/2029 05/29/2024 Colonoscopy 04/09/2030 04/09/2020 Colorectal Cancer Screening 04/09/2030 Procedures Procedure Name Priority Date/Time Associated Diagnosis Comments POCT GLYCOSYLATED HEMOGLOBIN (HGB A1C) Routine 10/30/2024 2:22 PM EDT Type 2 diabetes mellitus with hyperglycemia, unspecified whether senior living insulin use (HCC) POCT GLUCOSE Routine 10/30/2024 2:22 PM EDT Type 2 diabetes mellitus with hyperglycemia, unspecified whether oil heaterman insulin use (HCC) MM TOMOSYNTHESIS SCREENING BI [...] EDT Narrative 10/25/2024 10:07 [place] [address] Mammography Report Signed Patient: RENETTA BARBOSA MR#: [id number] : 1960 Acct:[id number] Age/Sex: 64 / F ADM Date: 10/24/24 Loc: MAMMO Attending Dr: LUL BRADFORD Ordering Physician: LUL BRADFORD Results: Date of Service: 10/24/24 Follow Up: Procedure(s): MM tomosynthesis screening BI Accession Number(s): [id number] cc: LUKE HIGGINS ; LUL BRADFORD Patient Name: RENETTA BARBOSA MR#: [id number] : 1960 Exam Date: 10/24/2024 Ordering Doctor: [...] breast cancer at age 80. LOCATION: [facility] BREAST COMPOSITION: There are scattered areas of [...] Signed By: 10/25/24 1007 DD/ 1006 TD/TT: Director Labor Standards: Procedure Note Radiology, Radiologist, MD - 10/25/2024 [place] [address] Mammography Report Signed Patient: RENETTA BARBOSA [facility]#: [id number] : 1960Acct:[id number] Age/Sex: 64 / FADM Date: 10/24/24 Loc: MAMMO Attending Dr: LUL BRADFORD Ordering Physician: LUL BRADFORDResults: Date of Service: 10/24/24Follow Up: Procedure(s): MM tomosynthesis screening BI Accession Number(s): [id number] cc: LUKE HIGGINS ; LUL BRADFORD Patient Name: RENETTA BARBOSA MR#: [id number] : 1960 Exam Date: 10/24/2024 Ordering Doctor: DR LUL BRADFORD RADIOLOGY REPORT PROCEDURE: MM TOMOSYNTHESIS SCREENING BI COMPARISON: MM TOMOSYNTHESIS SCREENING BI, 10/21/2023. MG MAMM [id number] SANT[place]O CAD, 10/19/2022. MG MAMM SCREEN 3D S[place]O CAD, 07/21/2021. MG MAMM SCREENBIL W CAD, 07/18/2020. INDICATIONS: Screening Calculator Name NCI Breast Cancer Risk Assessment Tool 5 Year Breast Cancer Risk 1.60% Lifetime Breast Cancer Risk 6.40% Personal Breast Cancer No Personal Ovarian Cancer No Treatments None Family Cancers Grandmother-maternal with breast cancer at age 80. LOCATION: [facility] BREAST COMPOSITION: There are scattered areas of [...] M.D. Signed By:10/25/24 1007 DD/ 1006 TD/TT: Director Labor Standards: us Lul Bradford MD [facility] Final [...] 06/01/2024 5:06 PM EST Performed at: - [facility] [id number] [facility]: Marimar Hall MD, Phone: [phone] Performed at: - [facility] [id number] [facility]: Marimar Hall MD, Phone: [phone] Specimen Comment: No. of containers..01 ThinPrep Vial [...] has been evaluated with computer assisted technology. ENTRY LEVEL [facility] Comment: ELP, CT(ASCP) CT Screening Location: [place] [address] PATHOLOGIST [facility] Comment: Latasha Dotson MD Board Certified in Anatomic and Clinical Pathology Board Certified in Cytopathology (electronic signature) For questions regarding this report call Anatomic Pathology at [phone] (ALWAYS MESSAGE) [facility] Comment: EXPLANATORY NOTE: The [...] Detected (A) Not Detected [facility] Comment: Methodology: Folder Gluer Operator-Mediated Amplification This assay detects E6/E7 viral messenger RNA (mRNA) from 14 high-risk HPV types (16,18,31,33,35,39,45,51,52,56,58,59,66,68). Cervical sources are required for HPV testing. If a vaginal source from a patient who has had a total hysterectomy with removal of cervix was submitted, please contact the testing laboratory for alternative testing options. For additional information, please refer to http://education.Magnet[employer]s.Quintic/faq/CBO436h1 (This link if provided for information/ educational purposes only.) 05/24/2023 3:45 PM EST 05/25/2023 2:58 AM EST Narrative Resulting Agency Comment Performing Organization Information Site ID: [id number] Name: [facility] Address: [address] [place] [address], [address] [place] [phone] Director: Kingston Sen MD Lul Bradford MD LAB CYTOLOGY ORDERABLES Final Result [facility] from Last 3 Months or Most Recently Relevant to Health Maintenance Insurance [employer] MEDICARE Care Teams Litigation Claim Representative Relationship Specialty Start Date End Date Benjamin Del Toro MD PCP - General Family Medicine 05/18/23 Lul Bradford MD [address] [place] [address] Obstetrics and Gynecology 05/18/23 Jasmine Urban [facility] [address] [place] [address] Outlet Manager Behavioral Health 05/30/24
--- NOTE | 2025-01-03 14:33 | CT_ITS ---
The [address] [address] Patient Name: ALBINO BARBOSA MRN: [facility]:[id number] date: 1960 Sex: F Assigned Patient Location: CT Current Patient Location: LAB Accession/Order Number: [id number] Exam Date: 01/03/2025 15:11 Report Date: 01/03/2025 15:13 At the request of: LUKE HIGGINS Procedure: CT lung screening low-dose CT CHEST WITHOUT CONTRAST, LOW DOSE SCREENING: CLINICAL DATA: A 64-year old current smoker, smoking for 50 pack-years. COMPARISON: None TECHNIQUE: Noncontrast axial CT scan images of the chest were obtained under the low dose screening CT protocol. Coronal and sagittal reconstructed images were also submitted. FINDINGS: Mediastinum : Suboptimal evaluation due to low-dose technique. Thoracic aorta appears normal in caliber. Pulmonary trunk appears nondilated. No pericardial effusion. No lymphadenopathy. The esophagus is grossly unremarkable. Lungs: No focal consolidation, pneumothorax or pleural effusion. Trachea and distal airways appear patent. Mild lung scarring. Emphysema. No suspicious noncalcified pulmonary nodule or mass. Upper abdomen: No acute process. Cirrhotic appearing liver. Bony thorax and chest wall: Soft tissues surrounding the chest wall demonstrate no acute findings. Osseous structures demonstrate degenerative change. CT/CT lung screening low-dose IMPRESSION: NO SUSPICIOUS PULMONARY NODULE. LUNG - RADS Version 1.0 Assessment: Category 1, Negative (No nodules and definitely benign nodules). Management: Continue annual lung screening with LDCT in 12 months. Impression dictated by: Giuseppe Sahu Jr., D.O. 01/03/2025 3:13 PM Dictation Location: [place] [address] Electronically authenticated by: [id number] Y Date: 01/03/2025 15:13
--- OUTSIDE RECORDS SUMMARY | 2025-01-03 14:33 | XMS_ITS | Encounter Summary ---
Author Organization [facility] Address [address] [place] [address] Care Team Providers Care Livestock Breeder Name Role Phone Shakira Arreaga TERESA Primary Care Provider + Source Comments In the event this information is protected by the Federal Confidentiality of Alcohol and Drug AbusePatient Records regulations: The Federal rules restrict any use of the information to criminally investigate or prosecute any alcohol or drug abuse patient.[facility] Encounter Details Date Type Department Care Team (Late st Contact Info) Description 08/06/2020 Abstract Hematology/Oncology [address] [facility] [place] [address] Andre Cadet MD [address] [place] [address] Social History Tobacco Use Types Packs/Day Years Used Date Smoking Tobacco: Every Day Area Deprivation Index Answer Date Fantasma rded National Score (1-100), lower number is lower ri sk Not on file 08/06/2020 State Score (1-10), lower number is lower risk N ot on file 08/06/2020 Data from: https://www.neighborhoodatlas.medicine.[facility].edu/. Last address used for calculation Not on [...] on filedocumented in this encounter Care Teams Livestock Breeder Relationship Specialty Start Date End Date Shakira Arreaga CNP [address] [place] [address] PCP - General Internal Medicine 08/01/20 documented as of this encounter
--- OUTSIDE RECORDS SUMMARY | 2025-01-03 14:33 | XMS_ITS | Encounter Summary ---
Author Organization [facility] Address [address] [place] [address] Care Team Providers Care Certified Medication Technician Name Role Phone Shakira Arreaga SHOE SHINER Primary Care Provider + Source Comments In the event this information is protected by the Federal Confidentiality of Alcohol and Drug AbusePatient Records regulations: The Federal rules restrict any use of the information to criminally investigate or prosecute any alcohol or drug abuse patient.[facility] Encounter Details Date Type Department Care Team [...] N ot on file 08/06/2020 Data from: https://www.neighborhoodatlas.medicine.[facility].edu/. Last address used for calculation [...] on filedocumented in this encounter Care Teams Certified Medication Technician Relationship Specialty Start Date End Date Shakira Arreaga CNP [address] [place] [id number] PCP - General Internal Medicine 08/01/20 documented as of this encounter
--- OUTSIDE RECORDS SUMMARY | 2025-01-03 14:47 | XMS_ITS | CCD ---
Author Organization [facility]iniSyn[facility] Care Team Providers Care Director Biostatistics Name Role Phone Shakira Higgins S Primary Care Provider DR JENNIFER TURNER Consulting Unavailable YUE, DR RODRIGUEZ Attending Unavailable MISC, DR VAZQUEZ Primary Care Unavailable YUE, DR RODRIGUEZ Admitting Unavailable Keysha Naidu Consulting Unavaila marie Higgins CNP, Shakira S Primary Care Provider PROVIDER, UNKNOWN Attending Unavailable PROVIDER, UNKNOWN Admitting Unavailable Rodger Davila Unavailable Ronaldo MOROE, Shakira S Primary Care Provider SHAKIRA HIGGINS Attending Unavailable RONALDO, SHAKIRA Admitting Unavailable RONALDO, SHAKIRA Primary Care Unavailable RONALDO, SHAKIRA Primary Care Unavailable HAY ., DR RODRIGUEZ Consulting Unavailable YUE ., DR RODRIGUEZ Attending Unavailable HAY ., [...] Admitting Unavailable RONALDO, SHAKIRA Primary Care Unavailable DR KAILEE PACHECO V Consulting Unavailable ZIEBER, DR LEONEL Artis Consulting [...] Unavailable RONALDO, SHAKIRA S Primary Care Physician Soheila Delgado Unavailable Benjamin Del Toro MD Primary Care Provider [phone] Tj Dutton MD Unavailable [phone] Ronaldo MOORE, Shakira S Primary Care Provider [phone] Jasmine Velasquez Unavailable ABHYANKAR, ANDRE Referring Unavailable ABHYANKAR, ANDRE Attending Unavailable RONALDO, SHAKIRA S Primary Care Unavailable ABHYANKAR, ANDRE Referring Unavailable RONALDO, SHAKIRA S Primary Care Unavailable Tj Dutton MD Attending Provider [phone] Tj Dutton Admitting Unavailable Tj Dutton Attending Unavailable Ronaldo, Shakira Tatum Primary Care Unavailable ISSA BURGER Attending Unavailable Jasmine Velasquez Unavailable OSMAN WILKINS Attending Unavailab OSMAN Gonzalez Attending Unavailab OSMAN Gonzalez Attending Unavailab OSMAN Gonzalez Attending Unavailab OSMAN Gonzalez Attending Unavailab OSMAN Gonzalez Attending Unavailab OSMAN Gonzalez Attending Unavailab OSMAN Gonzalez Attending Unavailab OSMAN Gonzalez Attending Unavailab OSMAN Gonzalez Attending Unavailab OSMAN Gonzalez Attending Unavailab OSMAN Gonzalez E Attending Unavailab Benjamin Lucio MD Primary Care Provider [phone] JASMINE URBAN Attending Unavailable KUSHALZE MCKINNON F Attending Unavailable GI ARRIAGA Attending Unavailable NATO, TJ Kothari Attending Unavailable SABRINA COX Attending Unavailable KUSHAL, AHMAWillis F Attending Unavailable SOLOMON, JASMINE Attending Unavailable TAN SOTELO Attending Unavailable RAJAT AGUILAR Attending Unavailable SOLOMON, JASMINE Attending Unavailable SOLOMON, JASMINE Attending Unavailable RAJAT AGUILAR Attending Unavailable SOLOMON, JASMINE Attending Unavailable MARY ALLEN Attending Unavailable DIDION, JASMINE Attending Unavailable KUSHAL, AHMAD F Attending Unavailable KUSHAL, AHMAD F Referring Unavailable SOLOMON, JASMINE Attending Unavailable RAJAT AGUILAR Attending Unavailable TJ DUTTON Attending Unavailable Allergies Allergy Classification Reported Allergen(s) Allergy Type Date of Onset Reaction(s) Facility Capsaicin / Turpentine (1 source) Capsaicin / Turpentine; Translations: [capsaicin topical] Drug Allergy [facility] (5 sources) Capsaicin; Translations: [CAPSAICIN] Drug Allergy 4 [facility] (5 sources) Capsaicin Drug Allergy Unknown [facility] (11 sources) Capsaicin / Turpentine; Translations: [capsaicin topical] Drug Allergy [facility] (20 sources) Capsaicin Drug Allergy 4 [facility] [employer] (20 sources) traMADol; Translations: [TRAMADOL] Drug Allergy 4 [facility] (3 sources) traZODone; Translations: [trazodone] Drug Allergy 4 [facility] (1 source) Capsaicin Drug Allergy 4 [facility] (1 source) No Known Medication Allergies; Translations: [No Known Medication Allergies] Propensity to adverse reactions (disorder) [facility] Repository Medications Current Medications Medication Drug Class(es) Dates Sig (Normalized) Sig (Original) 0.4 ML cyclosporine 0.5 MG/ML Ophthalmic Suspension [Restasis] (12 sources) Start: 03-13-2020 take 1 drop(s) into the eye(s) twice daily Restasis 0.05% Emulsion 1 drop(s), Eye-Both, BID, Refill(s) 0 Start Date: 03/13/20 Status: Ordered Repeat number: 1 Start: 03-13-2020 take 1 drop(s) into the eye(s) twice daily Restasis 0.05% Emulsion 1 drop(s), Eye-Both, BID, Refill(s) 0 Start Date: 03/13/20 Status: Ordered [id number] 200 actuat albuterol 0.09 mg/actuat metered dose inhaler (20 sources) beta2-Adrenergic Agonist Start: 07-19-2023 Albut ajit Sulfate 90 mcg/actuation HFA aerosol inhaler Active 1 INH INHALATION Every 6 hours July 19, 2023 1:00am take 2 puff(s) by in halation every four hours for wheezing albuterol (ProAir RespiClick) 90 mcg/act breath-activated inhaler Inhale 2 puffs every 4 (four) hours if needed for wheezing or shortness of breath Active albuterol (ProAi r RespiClick) 90 mcg/act breath-activated inhaler every 4 (four) hours Active albuterol HFA 90 mcg/actuation HFA Inhale 2 Puffs as instructed as needed. Active take 1 puff(s) by in halation every four hours as needed Albuterol Sulfate HFA 108 (90 Base) MCG/ ACT 1 puff as needed Inhalation every 4 hrs Active Comment on above: Inhale 2 Puffs as in structed as needed. armodafinil 250 mg oral tablet (10 sources) Start: 03-13-20 take 1 tablet by mouth once daily armodafinil 250 mg oral tablet 250 mg = 1 tab(s), Oral, Daily, Refills(s) 0 Start Date: 03/13/20 Status: Ordered atorvastatin 40 mg oral tablet (20 sources) HMG-CoA Reductase Inhibitor Start: 03-13-20 End: 05-29-19 take 1 tablet by mouth at bedtime atorvastatin 40 mg Tab 40 mg = 1 tab(s), Oral, Bedtime, Refills(s) 0 Start Date: 03/13/20 Status: Ordered Comment on above: Take 40 mg by mouth once daily. B COMPLEX-C ER PO (6 sources) take 1 tablet by mouth once daily B COMPLEX-C ER PO Take 1 tablet by mouth Daily Active bisacodyl 5 mg delayed release oral tablet (18 sources) Stimulant Laxative Start: 03-18-20 take 4 tablets by mouth once daily Dulcolax 5 mg Tab-EC 20 mg = 4 tab(s), Oral, Once, at 1:00pm the day prior to colonoscopy, # 4 tab(s), Refills(s) 0, Pharmacy: [facility]/pharmacy #[id number], 157.5, cm, 03/18/20 13:44:00 EDT, Height/Length Dosing, 104.3, kg, 03/18/20 13:44:00 EDT, Weight Dosing Start Date: 03/18/20 Status: Ordered Quantity: 4.0 Unit: tab(s) Repeat number: 1 Comment on above: Take 20 mg by mouth. Breztri Aerosphere inhalation aerosol (12 sources) Start: 05-03-20 take 2 puff(s) by inhalation twice daily Breztri Aerosphere inhalation aerosol 2 puff(s), BID Start Date: 05/03/23 Status: Ordered Repeat number: 1 Start: 05-03-2023 take 2 puff(s) by in halation twice daily Breztri Aerosphere inhalation aerosol 2 puff(s), BID Start Date: 05/03/23 Status: Ordered 120 actuat budesonide 0.16 mg/actuat / formoterol fumarate 0.0048 mg/actuat / glycopyrrolate 0.009 mg/actuat metered dose inhaler (20 sources) Corticosteroid, beta2-Adrenergic Agonist Start: 07-19-2023 Anqlrvgamc-Rpbonxxf-Ztwdsvhu ol (Breztri Aerosphere) 160-9-4.8 mcg/actuation HFA aerosol inhaler Active 2 INH INHALATION Twice daily July 19, 2023 1:00am Start: 05-17-2023 take 2 puff(s) by in halation in the morning Breztri Aerosphere 160-9-4.8 MCG/ACT aerosol Inhale 2 puffs in the morning and 2 puffs before bedtime. 05/17/2023 Active Start: 05-17-2023 take 2 puff(s) by in halation twice daily Breztri Aerosphere 160-9-4.8 MCG/ACT aerosol INHALE 2 PUFFS TWICE A DAY DIRECTED 30 05/17/2023 Active Comment on above: INHALE 2 PUFFS TWICE A DAY DIRECTED 30 busPIRone hydrochloride 15 mg oral tablet (20 sources) Start: 10-23-2021 End: 02-14-2024 take 1 tablet by mouth every twelve hours as needed busPIRone (BUSPAR) 15 mg tablet Take 15 mg by mouth twice daily as needed. 10/23/2021 Active Start: 05-26-2021 End: 12-17-2021 busPIRone (BUSPAR) 10 mg tab let Comment on above: Take 15 mg by mouth twice daily as needed. Calcium (18 sources) Phosphate Binder, Calcium Start: 03-13-2020 calcium 500 mg tablet 500 mg = 1 tab(s), Chewed, Daily, Refills(s) 0 Start Date: 03/13/20 Status: Ordered Repeat number: 1 Start: 03-13-2020 calcium 500 mg tablet 500 mg = 1 tab(s), Chewed, Daily, Refills(s) 0 Start Date: 03/13/20 Status: Ordered CALCIUM ORAL Yamil e by mouth once daily. Active CALCIUM ORAL Yaiml e by mouth once daily. 0 Active Comment on above: Take by mouth once d aily. calcium carbonate 500 mg oral tablet (20 sources) calcium carbonat e (Os-Tanner) 1250 (500 Ca) MG tablet Take by mouth Daily Active cephalexin 500 mg oral capsule (6 sources) Cephalosporin Antibacterial Start: 021 cephALEXin (KEFLEX) 500 mg capsule 12/09/2020 Active cevimeline 30 mg oral capsule (20 sources) Cholinergic Receptor Agonist Start: 023 End: 025 take 1 capsule by mouth three times daily Cevimeline 30 mg capsule Active 1 CAP PO Three times daily July 19, 2023 1:00am cholecalciferol (Vitamin D3) 200 Unit tablet split tablet (20 sources) cholecalciferol (Vitamin D3) 200 Unit tablet split tablet Take by mouth in the morning. Active cholecalciferol (Vitamin D3) 200 Unit tablet split tablet Take by mouth Daily Active cholecalciferol, vitamin D3, (VITAMIN D3 ORAL) (6 sources) cholecalciferol, vitamin D3, (VITAMIN D3 ORAL) Take by mouth once daily. Active cholecalciferol, vitamin D3, (VITAMIN D3 ORAL) Take by mouth once daily. 0 Active Comment on above: Take by mouth once d aily. ciclopirox (6 sources) CICLOPIROX TOPIC AL Apply to affected area. Active CICLOPIROX TOPIC AL Apply to affected area. 0 Active Comment on above: Apply to affected ar ea. clotrimazole 10 mg/ml topical cream (20 sources) Azole Antifungal Start: 05-20-2022 clotrimazole (Lotrimin) 1 % cream Apply 1 application topically every 12 (twelve) hours if needed 05/20/2022 Active Start: 05-20-2022 clotrimazole ( Lotrimin) 1 % cream 1 application every 12 (twelve) hours 05/20/2022 Active Clotrimazole 1 % 1 application Externally Twice a day Active Clotrimazole 1 % 1 application Externally Twice a day Active Clotrimazole 1 % 1 application Externally Twice a day Active Continuous Blood Gluc Sensor [facility]FreeStyle Jeanne [facility] Sensor[facility] ([facility] Start: 05-14-2023 Continuous Blo od Gluc Sensor (FreeStyle Jeanne 2 Sensor) [facility] 05/14/2023 Active Start: 05-14-2023 Continuous Blo od Gluc Sensor (FreeStyle Jeanne 2 Sensor) [facility] USE DIRECTED 05/14/2023 Active cyanocobalamin, vitamin B-12 , (VITAMIN B12 ORAL) (6 sources) take 1000 ug by mouth once daily cyanocobalamin, vitamin B-12, (VITAMIN B12 ORAL) Take 1,000 mcg by mouth once daily. Active take 1000 ug by mouth once daily cyanocobalamin, vitamin B-12, (VITAMIN B12 ORAL) Take 1,000 mcg by mouth once daily. 0 Active Comment on above: Take 1,000 mcg by [facility] once daily. cycloSPORINE 0.5 mg/ml ophthalmic suspension (20 sources) Calcineurin Inhibitor Immunosuppressant take 2 drop(s) into the eye(s) every twelve hours cycloSPORINE (Restasis) 0.05 % ophthalmic emulsion Administer 2 drops into both eyes every 12 (twelve) hours Active cycloSPORINE (Re stasis) 0.05 % ophthalmic emulsion every 12 (twelve) hours Active take 0.05 drop(s) in to the eye(s) twice daily cycloSPORINE (RESTASIS MULTIDOSE) 0.05 % drop Use 1 Drop in both eyes twice daily. Active take 1 drop(s) into the eye(s) twice daily Restasis 0.05 % 1 drop into affected eye Ophthalmic Twice a day Active take 0.05 drop(s) in to the eye(s) twice daily cycloSPORINE (RESTASIS MULTIDOSE) 0.05 % drop Use 1 Drop in both eyes twice daily. 0 Active Comment on above: Use 1 Drop in both e yes twice daily. Cyclosporine (Restasis) 0.05 % dropperette (1 source) Start: 024 take 1 drop(s) into the eye(s) every twelve hours Cyclosporine (Restasis) 0.05 % dropperette Active 1 DROPS EYE-BOTH Every 12 hours July 19, 2023 1:00am dexlansoprazole 60 mg delayed release oral capsule (3 sources) Proton Pump Inhibitor Start: take 1 capsule by mouth every twenty-four hours Dexilant 60 MG 1 capsule Orally Once a day for 30 days PLEASE CHECK ALLERGIES Mar, Active doxepin hydrochloride 10 mg oral capsule (20 sources) Tricyclic Antidepressant Start: 024 End: 025 take 1 capsule by mouth once daily at bedtime doxepin (SINEquan) 10 MG capsule Indications: Primary insomnia TAKE 1-2 CAPSULES BY MOUTH EVERYDAY AT BEDTIME 180 capsule 1 03/08/2024 08/30/2024 Discontinued (Therapy completed) Start: 02-14-2024 take 1 capsule by [facility] once at bedtime doxepin (SINEquan) 10 MG capsule Indications: Primary insomnia 1-2 po q hs 60 capsule 2 02/14/2024 Active 0.5 ml dulaglutide 3 mg/ml auto-injector (20 sources) GLP-1 Receptor Agonist Start: 03-13-2020 inject 1.5 mg by subcutaneous injection every week Trulicity Pen 1.5 mg/0.5 mL subcutaneous solution 1.5 mg, SubCutaneous, qWeek, Refills(s) 0 Start Date: 03/13/20 Status: Ordered Repeat number: 1 Trulicity 3 MG/0 .5ML as directed Subcutaneous Active Comment on above: INJECT SUBCUTANEOUSL Y ONCE A WEEK Dulaglutide (Trulicity) 3 mg/0.5 mL pen injector (1 source) Start: 07-19-2023 Dulaglutide (Trulicity) 3 mg/0.5 mL pen injector Active 3 MG SUBCUT every week July 19, 2023 1:00am Dulaglutide (Trulicity) 3 MG/0.5ML solution auto-injector (20 sources) Start: 08-03-2024 Dulaglutide (Trulicity) 3 MG/0.5ML solution auto-injector Indications: Type 2 diabetes mellitus with hyperglycemia (CMS/HCC) Inject 3 mg under the skin every 7 (seven) days 2 mL 3 08/03/2024 Active Start: 05-11-2024 End: 08-03-2024 inject 3 mg by subcutaneous injection every week Dulaglutide (Trulicity) 3 MG/0.5ML solution auto-injector Indications: Type 2 diabetes mellitus with hyperglycemia (CMS/HCC) INJECT 3 MG SUBCUTANEOUSLY WEEKLY 2 mL 3 05/11/2024 08/03/2024 Discontinued (Reorder) Start: 05-11-2024 inject 3 mg by subcu taneous injection every week Dulaglutide (Trulicity) 3 MG/0.5ML solution auto-injector Indications: Type 2 diabetes mellitus with hyperglycemia (CMS/HCC) INJECT 3 MG SUBCUTANEOUSLY WEEKLY 2 mL 3 05/11/2024 Active Start: 03-02-2024 End: 05-29-2024 inject 3 mg by subcutaneous injection every week Dulaglutide (Trulicity) 3 MG/0.5ML solution auto-injector Indications: Type 2 diabetes mellitus with hyperglycemia (CMS/HCC) INJECT 3 MG SUBCUTANEOUSLY WEEKLY 6 mL 1 03/02/2024 05/29/2024 Discontinued (Ineffective) Start: 03-02-2024 inject 3 mg by subcu taneous injection every week Dulaglutide (Trulicity) 3 MG/0.5ML solution auto-injector Indications: Type 2 diabetes mellitus with hyperglycemia (CMS/HCC) INJECT 3 MG SUBCUTANEOUSLY WEEKLY 6 mL 1 03/02/2024 Active dulaglutide (Trulicity) 3 MG/0.5ML solution pen-injector (9 sources) Start: 02-15-2024 End: 05-09-2024 inject 3 mg by subcutaneous injection every week dulaglutide (Trulicity) 3 MG/0.5ML solution pen-injector Indications: Type 2 diabetes mellitus with hyperglycemia (CMS/HCC) Inject 3 mg under the skin 1 (one) time per week 6 mL 02/15/2024 05/09/2024 Active Start: 02-14-2024 inject 3 mg by subcu taneous injection every week dulaglutide (Trulicity) 3 MG/0.5ML solution pen-injector Indications: Type 2 diabetes mellitus with hyperglycemia (CMS/HCC) Inject 3 mg under the skin 1 (one) time per week 4 each 11 02/14/2024 Active estradiol 0.01 mg vaginal insert (20 sources) Estrogen Start: 07-19-2023 Estradiol (Yuv afem) 10 mcg tablet Active 10 MCG VAGINAL Twice a Week July 19, 2023 1:00am Start: 05-24-2023 estradiol (Yuv afem) 10 MCG tablet vaginal tablet Indications: Postmenopausal atrophic vaginitis INSERT 1 TABLET VAGINALLY TWO TIMES A WEEK FOR 90 DAYS 8 tablet 11 06/13/2024 Active Start: 03-13-2020 estradiol 10 m cg vaginal insert See Instructions, Use one twice per week, Refills(s) 0 Start Date: 03/13/20 Status: Ordered Repeat number: 1 Comment on above: Use 10 mcg vaginally two times a week. ferrous sulfate 325 mg oral tablet (6 sources) Start: 05-27-19 take 1 tablet by mouth twice daily ferrous sulfate 325 mg (65 mg iron) tablet Take 1 tablet by mouth twice daily. 05/27/2020 Active Comment on above: Take 1 tablet by jono twice daily. fluconazole 150 mg oral tablet (6 sources) Azole Antifungal Start: 07-10-19 fluconazole (DIFLUCAN) 150 mg tablet TAKE 1 TABLET EVERY 72 HOURS UNTIL SYMPTOMS IMPROVE (MAX 2WK) THEN 1 TABLET ONCE WEEKLY FOR 12 WEEKS 07/10/2020 Active Comment on above: TAKE 1 TABLET EVERY 72 HOURS UNTIL SYMPTOMS IMPROVE (MAX 2WK) THEN 1 TABLET ONCE WEEKLY FOR 12 WEEKS fluticasone propionate 0.05 mg/actuat metered dose nasal spray (6 sources) Corticosteroid fluticasone (FLONASE) 50 mcg/actuation nasal spray Use 1 [place] in each nostril as needed. Active Comment on above: Use 1 [place] in each nostril as needed. 30 actuat fluticasone furoate 0.1 mg/actuat / umeclidinium 0.0625 mg/actuat / vilanterol 0.025 mg/actuat dry powder inhaler (2 sources) Anticholinergic, Corticosteroid, beta2-Adrenergic Agonist take 1 puff(s) by inhalation once daily Trelegy Ellipta 100-62.5-25 MCG/ACT 1 puff Inhalation Once a day Active FREESTYLE JEANNE 2 SENSOR kit (6 sources) Start: 06-03-19 FREESTYLE JEANNE 2 SENSOR kit 06/03/2021 Active Start: 06-03-2021 FREESTYLE LIBR E 2 SENSOR kit furosemide 40 mg oral tablet (20 sources) Loop Diuretic Start: 03-13-2020 take 1 tablet by mouth once daily furosemide (LASIX) 40 mg tablet Take 40 mg by mouth once daily. 06/04/2020 Active Comment on above: Take 40 mg by mouth once daily. gabapentin 300 mg oral capsule (20 sources) Anti-epileptic Agent Start: 03-13-2020 take 1 capsule by mouth once daily at bedtime gabapentin (Neurontin) 300 MG capsule Indications: Cramp and spasm TAKE 1 CAPSULE BY MOUTH ONCE A DAY AT BEDTIME 30 capsule 3 09/19/2024 Active Comment on above: Take 300 mg by mouth daily at bedtime. 0.2 ml glucagon 5 mg/ml auto-injector (20 sources) Antihypoglycemic Agent inject 1 mg by subcutaneous injection once glucagon (Gvoke HypoPen 2-Pack) 1 MG/0.2ML injection Inject 1 mg under the skin 1 (one) time if needed Active humlin R (1 source) Start: 07-19-2023 humlin R Active SUBCUT July 19, 2023 1:00am hydrocortisone acetate 25 mg rectal suppository (17 sources) Corticosteroid Start: 10-18-2024 Anusol-HC 25 mg rectal suppository = 1 supp, Rectal, BID, Refills(s) 0 Start Date: 10/18/24 Status: Ordered Repeat number: 1 Start: 06-03-2020 hydrocortisone (ANUSOL-HC) 2.5 % rectal cream APPLY RECTALLY TWICE DAILY FOR 10 DAYS 06/03/2020 Active Start: 03-13-2020 take 25 mg rectal ro [facility] twice daily Anusol-HC 25 mg rectal suppository 25 mg = 1 supp, Rectal, BID, Refills(s) 0 Start Date: 03/13/20 Status: Ordered Comment on above: APPLY RECTALLY TWICE DAILY FOR 10 DAYS insulin regular, human (HUMULIN R U-500, CONC, KWIKPEN SUBCUTANEOUS) (6 sources) insulin regular, human (HUMULIN R U-500, CONC, KWIKPEN SUBCUTANEOUS) Inject subcutaneously. Active insulin regular, human (HUMULIN R U-500, CONC, KWIKPEN SUBCUTANEOUS) Inject subcutaneously. 0 Active Comment on above: Inject subcutaneousl y. 3 ml insulin, regular, human 500 unt/ml pen injector (20 sources) Insulin Start: 10-30-2024 insulin regular (HumuLIN R U-500 KWIKPEN) 500 UNIT/ML CONCENTRATED injection Indications: Type 2 diabetes mellitus with hyperglycemia, unspecified whether termite renewal inspector insulin use (CMS/HCC) , Type 2 diabetes mellitus with hyperglycemia (CMS/HCC) INJECT 80 UNITS SUBCUTANEOUSLY TWICE A DAY 24 mL 7 10/30/2024 Active Start: 03-05-2024 End: 10-30-2024 insulin regular (HumuLIN R U -500 KWIKPEN) 500 UNIT/ML CONCENTRATED injection Indications: Type 2 diabetes mellitus with hyperglycemia (CMS/HCC) INJECT 80 UNITS SUBCUTANEOUSLY TWICE A DAY 24 mL 7 03/05/2024 10/30/2024 Discontinued (Reorder) Start: 05-14-2023 HumuLIN R U-50 0 KWIKPEN 500 UNIT/ML CONCENTRATED injection INJECT 80 UNITS SUBCUTANEOUSLY TWICE A DAY 05/14/2023 Active Start: 03-13-2020 Humulin R (Con centrated) 500 units/mL subcutaneous solution See Instructions, Inject 150 units at breakfast, 140 at lunch and 75 at HS, Refills(s) 0 Start Date: 03/13/20 Status: Ordered Repeat number: 1 HumuLIN R U-500 KwikPen 500 UNIT/ML as directed Subcutaneous 80 UNITS IN THE MORNING, 50 UNITS IN THE AFTERNOON Active levothyroxine sodium 0.15 mg oral capsule (20 sources) l-Thyroxine Start: 07-19-2023 take 1 capsule by mouth once daily Levothyroxine 150 mcg capsule Active 150 MCG PO Daily July 19, 2023 1:00am Start: 06-03-2020 take 1 tablet by jono th once daily levothyroxine (SYNTHROID) 150 mcg tablet Take 150 mcg by mouth once daily. 06/03/2020 Active Start: 03-13-2020 take 1 tablet by jono th once daily levothyroxine 150 mcg (0.15 mg) Tab 150 mcg = 1 tab(s), Oral, Daily, Refills(s) 0 Start Date: 03/13/20 Status: Ordered Repeat number: 1 Comment on above: Take 150 mcg by mout h once daily. loratadine 10 mg oral tablet (20 sources) take 1 tablet by mouth once daily loratadine (Claritin) 10 MG tablet Take 10 mg by mouth Daily Active losartan potassium 100 mg oral tablet (20 sources) Angiotensin 2 Receptor Erick Start: 05-04-2024 take 1 tablet by mouth once daily losartan (Cozaar) 100 MG tablet Take 100 mg by mouth Daily 05/04/2024 Active Start: 05-04-2024 take 1 tablet by jono th once daily losartan (Cozaar) 50 MG tablet TAKE 1 TABLET BY MOUTH EVERY DAY FOR 30 DAYS 05/04/2024 Active Start: 04-20-2023 End: 05-29-2024 take 1 tablet by mouth once daily Losartan 25 mg tablet Active 25 MG PO Daily July 19, 2023 1:00am Comment on above: Take 1 tablet by jono th every afternoon. Magnesium (1 source) MAGNESIUM ORAL T hai by mouth once daily. Active magnesium gluconate 550 mg oral tablet (20 sources) take 1 capsule by mouth once daily Magnesium 400 MG capsule Take 400 mg by mouth Daily Active End: 05-29-2024 take 1 tablet by mouth in the morning magnesium 30 MG tablet Take 30 mg by mouth in the morning and 30 mg before bedtime. Active metFORMIN hydrochloride 1000 mg oral tablet (13 sources) Biguanide Start: 03-13-2020 metFORMIN (GLUCOPHAGE) 1,000 mg tablet 07/24/2020 Active 24 hr mirabegron 50 mg extended release oral tablet (20 sources) beta3-Adrenergic Agonist Start: 10-19-2024 take 1 tablet by mouth once daily Myrbetriq 50 mg oral tablet, extended release 50 mg = 1 tab(s), Oral, Daily, # 30 tab(s), Refills(s) , Pharmacy: [facility]/pharmacy #[id number], 152, cm, 10/19/24 11:54:00 EDT, Height/Length Dosing, 85, kg, 10/19/24 11:54:00 EDT, Weight Dosing Start Date: 10/19/24 Status: Ordered Quantity: 30.0 Unit: tab(s) Repeat number: 12 Start: 06-08-2024 take 1 tablet by jono th once daily Myrbetriq 50 mg oral tablet, extended release 50 mg = 1 tab(s), Oral, Daily, # 30 tab(s), Refills(s) 11, Pharmacy: [facility]/pharmacy #[id number], 152, cm, 06/08/24 12:12:00 EST, Height/Length Dosing, 86.4, kg, 06/08/24 12:12:00 EST, Weight Dosing Start Date: 06/08/24 Status: Ordered Start: 04-09-2024 take 1 tablet by jono th once daily Myrbetriq 25 MG 24 hr tablet Take 50 mg by mouth Daily 04/09/2024 Active Start: 02-29-2024 End: 04-29-2024 take 1 tablet by mouth once daily Myrbetriq 25 MG 24 hr tablet Take 25 mg by mouth Daily 04/09/2024 Active Multivitamin preparation (1 source) take 1 tablet by mouth once daily Multivitamin - 1 tablet Orally Once a day Active mupirocin 0.02 mg/mg topical ointment (6 sources) RNA Synthetase Inhibitor Antibacterial Start: 12-10-19 21 mupirocin (BACTROBAN) 2 % ointment 12/09/2020 Active nystatin 100 unt/mg topical powder (20 sources) Polyene Antifungal Start: 09-27-19 25 nystatin (Mycostatin) 199108 UNIT/GM powder Indications: Postmenopausal atrophic vaginitis APPLY TO AFFECTED AREA TWICE A DAY 60 g 3 09/26/2024 Active Start: 07-28-2023 End: 04-09-2024 nystatin (Mycostatin) 242705 UNIT/GM powder Indications: Postmenopausal atrophic vaginitis APPLY TO AFFECTED AREA TWICE A DAY 60 g 3 04/09/2024 Active Start: 07-19-2023 Nystatin 100,0 00 unit/gram powder Active 1 APPLIC TOPICAL Twice daily July 19, 2023 1:00am Nystatin 650823 UNIT/GM 1 application Externally Twice a day Active Nystatin 674740 UNIT/GM 1 application Externally Twice a day Active omeprazole 40 mg delayed release oral capsule (10 sources) Proton Pump Inhibitor Start: 03-13-2020 take 1 capsule by mouth once daily omeprazole 40 mg Cap-DR 40 mg = 1 cap(s), Oral, Daily, Refills(s) 0 Start Date: 03/13/20 Status: Ordered ondansetron 4 mg oral tablet (6 sources) Serotonin-3 Receptor Antagonist Start: 10-28-2020 take 1 tablet by mouth every six hours as needed ondansetron (ZOFRAN) 4 mg tablet Take 4 mg by mouth every 6 hours as needed. 10/28/2020 Active Comment on above: Take 4 mg by mouth e very 6 hours as needed. pantoprazole 40 mg delayed release oral tablet (20 sources) Proton Pump Inhibitor Start: 06-08-2024 take 1 mg by mouth once daily Pantoprazole [address] Tab mg tab(s), Oral, Daily, Refills(s) 0 Start Date: 06/08/24 Status: Ordered Start: 05-03-2023 Pantoprazole [address] Tab = 1 tab(s), BID, Refills(s) 0 Start Date: 10/18/24 Status: Ordered Repeat number: 1 Start: 05-27-2020 take 1 tablet by jono once daily Pantoprazole 40 mg tablet,delayed release (DR/EC) Active 40 MG PO Daily July 19, 2023 1:00am Comment on above: Take 40 mg by mouth once daily. pilocarpine hydrochloride 5 mg oral tablet (2 sources) Cholinergic Receptor Agonist take 1 tablet by mouth once daily pilocarpine (Salagen) 5 MG tablet Take 5 mg by mouth Daily Active pravastatin sodium 40 mg oral tablet (20 sources) HMG-CoA Reductase Inhibitor Start: take 1 tablet by mouth at bedtime pravastatin (Pravachol) 40 MG tablet Take 40 mg by mouth at bedtime 04/21/2023 Active take 1 tablet by mouth once [facility] Pravastatin 10 mg one tab orally daily Active Comment on above: Take 40 mg by mouth daily at bedtime. primidone 50 mg oral tablet (20 sources) Anti-epileptic Agent Start: 09-27-2024 take 2 tablets by mouth twice daily primidone (Mysoline) 50 MG tablet Indications: Essential tremor TAKE 2 TABLETS BY MOUTH TWICE A DAY 360 tablet 1 09/27/2024 Active Start: 10-10-2023 take 2 tablets by mo [facility] twice daily primidone (Mysoline) 50 MG tablet Indications: Essential tremor TAKE 2 TABLETS BY MOUTH TWICE A DAY 360 tablet 1 01/11/2024 Active Start: 07-19-2023 take 1 tablet by jono once daily at bedtime Primidone 50 mg tablet Active 50 MG PO Daily at bedtime July 19, 2023 1:00am Start: 05-03-2023 primidone 50 m g Tab 50 mg = 1 tab(s), BID Start Date: 05/03/23 Status: Ordered Repeat number: 1 Start: 04-20-2023 take 2 tablets by mo [...] tablets by mo uth every 12 hours. thiamine 50 mg oral tablet (20 sources) take 1 tablet by mouth once daily thiamine (Vitamin B-1) 50 MG tablet Take 50 mg by mouth Daily Active 60 actuat tiotropium 0.74964 mg/actuat inhalation spray (19 sources) Anticholinergic Start: 5 Spiriva Respimat 1.25 mcg/inh inhalation aerosol 2 puff(s), Inhalation, Daily, Refill(s) 0 Start Date: 10/18/24 Status: Ordered Repeat number: 1 Start: 06-03-2020 take 2 puff(s) by mo ut once daily SPIRIVA RESPIMAT 2.5 mcg/actuation inhaler [...] INHALE 2 PUFFS BY MO UTH EVERYDAY tiZANidine 4 mg oral tablet (13 sources) Central alpha-2 Adrenergic Agonist Start: 5 take 1 tablet by mouth at bedtime as needed tiZANidine (Zanaflex) 4 MG tablet Indications: Insomnia, unspecified type TAKE 1/2-1 TABLET BY MOUTH AT BEDTIME NEEDED 90 tablet 1 08/22/2024 Active Start: 07-30-2024 tiZANidine (Za naflex) 4 MG tablet Indications: Insomnia, unspecified type Take 1/2-1 at bedtime as needed 30 tablet 2 07/30/2024 Active traZODone hydrochloride 100 mg oral tablet (20 sources) Serotonin Reuptake Inhibitor Start: 05-03-2023 End: 02-14-2024 traZODONE 100 mg Tab 100 mg = 1 tab(s), Daily Start Date: 05/03/23 Status: Ordered Start: 03-13-2020 take 1 tablet by jono th once daily at bedtime traZODone (DESYREL) 50 mg tablet TAKE 1 TABLET BY MOUTH EVERYDAY AT BEDTIME 05/30/2020 Active Comment on above: TAKE 1 TABLET BY JONO TH EVERYDAY AT BEDTIME triamcinolone acetonide 1 mg/ml topical cream (20 sources) Corticosteroid Start: 07-19-2023 Triamcinolone Acetonide 0.1 % cream Active 1 APPLIC TOPICAL Twice daily July 19, 2023 1:00am Start: 02-22-2023 triamcinolone (Kenalog) 0.1 % cream Apply topically in the morning and before bedtime. to affected area. 02/22/2023 Active Triamcinolone Ac etonide 0.1 % 1 application Externally Twice a day Active Trulicity 3 MG/0.5ML solution pen-injector (7 sources) Start: 03-17-2023 inject 3 mg by subcutaneous injection every week Trulicity 3 MG/0.5ML solution pen-injector INJECT 3 MG SUBCUTANEOUSLY WEEKLY 03/17/2023 Active 24 hr venlafaxine 150 mg extended release oral capsule (20 sources) Serotonin and Norepinephrine Reuptake Inhibitor Start: 01-31-2023 take 1 capsule by mouth every twenty-four hours in the morning venlafaxine XR (Effexor XR) 150 MG 24 hr capsule Take 150 mg by mouth in the morning. 01/31/2023 Active Start: 03-13-2020 take 1 capsule by mo [facility] once daily venlafaxine XR (Effexor XR) 150 MG 24 hr capsule Take 150 mg by mouth Daily 01/31/2023 Active End: 12-17-2021 take 1 capsule by mouth once daily venlafaxine ER (EFFEXOR XR) 75 mg 24 hr capsule Take 75 mg by mouth once daily. 0 12/17/2021 Discontinued (Changing Therapy/Dosage Form) Comment on above: Take 150 mg by mouth once daily. Take 75 mg by mouth once daily. Ventolin HFA 90 mcg/inh Aerosol (12 sources) Start: 03-13-2020 take 2 puff(s) by inhalation four times daily Ventolin HFA 90 mcg/inh Aerosol 2 puff(s), Inhalation, QID Shortness of breath or wheezing, Refill(s) 0 Start Date: 03/13/20 Status: Ordered Repeat number: 1 Start: 03-13-2020 take 2 puff(s) by in halation four times daily Ventolin HFA 90 mcg/inh Aerosol 2 puff(s), Inhalation, QID Shortness of breath or wheezing, Refill(s) 0 Start Date: 03/13/20 Status: Ordered vitamin a 50742 unt oral capsule (20 sources) Vitamin A take 3 mg by mouth once daily beta carotene (vitamin A) 3 MG (80154 UT) capsule Take 10,000 Units by mouth Daily Active take 3 mg by mouth in the mornin g beta carotene (vitamin A) 3 MG (11638 UT) capsule Take 10,000 Units by mouth in the morning. Active vitamin b12 0.1 mg oral tabl et (20 sources) Vitamin B12 cyanocobalamin ( Vitamin B-12) 100 MCG tablet Take 1,000 mcg by mouth in the morning. Active Vitamin B12 100 MCG as directed Orally Active Vitamin B12 100 MCG (3 sources) Vitamin B12 100 MCG as directed Orally Active Vitamin B12 250 mcg oral tablet (12 sources) Start: 03-13-2020 take 1 tablet by mouth once daily Vitamin B12 250 mcg oral tablet 250 mcg = 1 tab(s), Oral, Daily, Refills(s) 0 Start Date: 03/13/20 Status: Ordered Repeat number: 1 Start: 03-13-2020 take 1 tablet by jono th once daily Vitamin B12 250 mcg oral tablet 250 mcg = 1 tab(s), Oral, Daily, Refills(s) 0 Start Date: 03/13/20 Status: Ordered Vitamin D3 25 MCG (1000 UT) (2 sources) take 1 tablet by mouth once daily Vitamin D3 25 MCG (1000 UT) 1 tablet Orally Once a day Active Zinc Sulfate (20 sources) End: 05-29-2024 zinc sulfate (Zincate) 220 (50 Zn) MG capsule Take 50 mg of elemental zinc by mouth in the morning. 05/29/2024 Discontinued (Ineffective) Zinc Sulfate (ZI NC 15 PO) Take by mouth Active Completed/Discontinued Medications Medication Drug Class(es) Dates Sig (Normalized) Sig (Original) 24 hr buPROPion hydrochloride 300 mg extended release oral tablet (20 sources) Aminoketone Start: 04-20-2023 End: 02-14-2024 take 1 tablet by mouth every twenty-four hours in the morning buPROPion XL (Wellbutrin XL) 300 MG 24 hr tablet Take 300 mg by mouth in the morning. 04/20/2023 02/14/2024 Discontinued Start: 03-13-2020 take 1 tablet by jono th once daily buPROPion 300 mg XL /24 hrs 300 mg = 1 tab(s), Oral, Daily, Refills(s) 0 Start Date: 03/13/20 Status: Ordered Comment on above: Take 300 mg by mouth once daily. cholecalciferol 0.05 mg oral capsule (13 sources) Vitamin D Start: 03-13-20 20 take 1 capsule by mouth once daily cholecalciferol 2000 intl units oral capsule 2,000 International_Unit = 1 cap(s), Oral, Daily Start Date: 03/13/20 Status: Ordered Repeat number: 1 Start: 03-13-2020 take 1 capsule by mo uth once daily cholecalciferol 2000 intl units oral capsule 2,000 International_Unit = 1 cap(s), Oral, Daily Start Date: 03/13/20 Status: Ordered take 1 tablet by jono th every twenty-four hours Vitamin D3 25 MCG (1000 UT) 1 tablet Orally Once a day Active Diclofenac (20 sources) Nonsteroidal Anti-inflammatory Drug Start: 03-13-2020 diclofenac Top 1% gel 2 gm, Topical, QID, Refill(s) 0 Start Date: 03/13/20 Status: Ordered diclofenac (VOLT AREN) 1 % topical gel Apply to affected area four times daily. Active Comment on above: Apply to affected ar ea four times daily. dicyclomine hydrochloride 10 mg oral capsule (20 sources) Anticholinergic Start: take 1 capsule by mouth four times daily dicyclomine 10 mg Cap 10 mg = 1 cap(s), TAKE 1 CAPSULE BY MOUTH FOUR TIMES A DAY Start Date: 06/08/24 Status: Ordered Repeat number: 1 Comment on above: Take 10 mg by mouth four times daily. empagliflozin 25 mg oral tablet (20 sources) Sodium-Glucose Cotransporter 2 Inhibitor Start: 024 End: 025 take 1 tablet by mouth once daily Jardiance 25 MG Indications: Type 2 diabetes mellitus with hyperglycemia (CMS/HCC) TAKE 1 TABLET BY MOUTH EVERY DAY 90 tablet 1 05/11/2024 10/30/2024 Discontinued (Reorder) Start: 07-19-2023 take 1 mg by mouth o nce daily in the morning Jardiance 10 mg oral tablet mg tab(s), Oral, qAM, Refills(s) 0 Start Date: 02/29/24 Status: Ordered Repeat number: 1 Problems Active Problems Problem Classification Problem Date Documented Da te Episodic/Chronic Abdominal pain (20 sources) Unspecified abdominal pain; Translations: [Epigastric pain] Onset: 2 Episodic Administrative/social admission (8 sources) Patient encounter status; Translations: [Dietary counseling and surveillance] 03-05-2024 Episodic Anxiety disorders (20 sources) Mixed anxiety and depressive disorder; Translations: [Anxiety] Onset: 4 03-13-2020 Chronic Cancer of cervix (4 sources) Cervical intraepithelial neoplasia grade 1; Translations: [Low grade squamous intraepithelial lesion on cytologic smear of cervix (LGSIL)] 05-29-2024 Episodic Chronic obstructive pulmonary disease and bronchiectasis (12 sources) Chronic obstructive lung disease 03-13-2020 Chronic Coagulation and hemorrhagic disorders (6 sources) Thrombocytopenic disorder; Translations: [Thrombocytopenia, unspecified] Onset: 4 06-26-2023 Chronic Coagulation and hemorrhagic disorders (10 sources) Thrombocytopenia due to hypersplenism; Translations: [Other secondary thrombocytopenia] Onset: 2 Episodic Coma; stupor; and brain damage (3 sources) Unspecified coma; Translations: [UNSPECIFIED COMA] Onset: 1 Episodic Deficiency and other anemia (12 sources) Iron deficiency anemia 03-18-2020 Episodic Delirium, dementia, and amnestic and other cognitive disorders (20 sources) Cognitive disorder; Translations: [Unspecified mental disorder due to known physiological condition] Onset: 4 10-11-2023 Chronic Diabetes mellitus with complications (20 sources) Type 2 diabetes mellitus with hypoglycemia without coma; Translations: [Type 2 diabetes mellitus with diabetic neuropathy, unspecified] Onset: 1 10-01-2020 Chronic Diabetes mellitus without complication (12 sources) Diabetes mellitus 03-13-2020 Chronic Diseases of mouth; excluding dental (5 sources) Xerostomia; Translations: [Dry mouth, unspecified] Onset: 4 Episodic Disorders of lipid metabolism (15 sources) Hyperlipidemia, unspecified; Translations: [Hyperlipidemia] Onset: 1 03-13-2020 Chronic Diverticulosis and diverticulitis (4 sources) Diverticulitis of intestine, part unspecified, with perforation and abscess with bleeding; Translations: [DVTRCLI PRT UNS W/PERF ABSC W/BLEED] Onset: 2 Chronic Esophageal disorders (20 sources) Gastroesophageal reflux disease; Translations: [Gastro-esophageal reflux disease without esophagitis] Chronic Essential hypertension (20 sources) Hypertensive disorder; Translations: [Essential hypertension] Onset: 5 03-13-2020 Chronic Gastrointestinal hemorrhage (12 sources) Rectal hemorrhage 09-12-2020 Episodic Genitourinary symptoms and ill-defined conditions (20 sources) Mixed incontinence; Translations: [Incontinence] Onset: 3 Chronic Genitourinary symptoms and ill-defined conditions (6 sources) Microalbuminuria; Translations: [Proteinuria, unspecified] 03-05-2024 Episodic Headache; including migraine (2 sources) Headache; Translations: [Nonintractable episodic headache, unspecified headache type] 09-16-2024 Episodic Hemorrhoids (20 sources) Anal skin tag; Translations: [Hemorrhoids] 09-12-2020 Episodic Hepatitis (6 sources) Nonalcoholic steatohepatitis; Translations: [Nonalcoholic steatohepatitis (MENDEZ)] Onset: 3 Chronic Miscellaneous mental health disorders (2 sources) Primary insomnia; Translations: [Primary insomnia] 02-14-2024 Chronic Nausea and vomiting (20 sources) Nausea; Translations: [Nausea] Episodic Nutritional deficiencies (6 sources) Vitamin D deficiency; Translations: [Vitamin D deficiency, unspecified] 03-05-2024 Chronic Other aftercare (2 sources) [facility] (current) use of insulin; Translations: [INTERMEDIATE CURRENT USE OF INSULIN] Onset: 1 Episodic Other aftercare (2 sources) Other penitentiary (current) drug therapy; Translations: [OTH MENSWEAR SALESPERSON CURRENT DRUG THERAPY] Onset: 1 Episodic Other aftercare (1 source) [facility] (current) use of oral hypoglycemic drugs; Translations: [MENSWEAR SALESPERSON USE ORAL HYPOGLYCEMIC DX] Onset: 3 Episodic Other aftercare (6 sources) Long-term current use of insulin; Translations: [[facility] (current) use of insulin] 03-05-2024 Episodic Other aftercare (6 sources) Taking high risk medication; Translations: [Other termite renewal inspector (current) drug therapy] 03-05-2024 Episodic Other aftercare (2 sources) Surgical follow-up; Translations: [Encounter for follow-up examination after completed treatment for conditions other than malignant neoplasm] 08-29-2024 Episodic Other connective tissue disease (4 sources) Cramp and spasm; Translations: [CRAMP AND SPASM] Onset: 3 Episodic Other endocrine disorders (6 sources) Hypoglycemia; Translations: [Hypoglycemia, unspecified] 03-05-2024 Chronic Other eye disorders (2 sources) Tear film insufficiency; Translations: [Dry eye syndrome of bilateral lacrimal glands] Onset: 4 Episodic Other eye disorders (3 sources) Dry eyes 02-29-2024 Episodic Other female genital disorders (1 source) Dysplasia of cervix uteri, unspecified; Translations: [Dysplasia of cervix uteri, unspecified] Onset: 5 Episodic Other gastrointestinal disorders (5 sources) Diarrhea, unspecified; Translations: [DIARRHEA UNSPECIFIED] Onset: 2 Episodic Other gastrointestinal disorders (12 sources) Constipation 03-13-2020 Episodic Other gastrointestinal disorders (12 sources) Hyperplastic polyp of intestine 04-15-2020 Episodic Other gastrointestinal disorders (12 sources) Occult blood in stools 03-18-2020 Episodic Other gastrointestinal disorders (1 source) Diarrhea; Translations: [Diarrhea, unspecified] 07-19-2023 Episodic Other hematologic conditions (2 sources) Hypersplenism; Translations: [HYPERSPLENISM] Onset: 3 Episodic Other hereditary and degenerative nervous system conditions (20 sources) Restless legs; Translations: [Restless legs syndrome] Onset: 4 03-13-2020 Chronic Other hereditary and degenerative nervous system conditions (20 sources) Essential tremor; Translations: [Essential tremor] Onset: 4 10-11-2023 Chronic Other injuries and conditions due to external causes (1 source) History of falling; Translations: [HISTORY OF FALLING] Onset: 3 Episodic Other liver diseases (4 sources) Cirrhosis - non-alcoholic; Translations: [Unspecified cirrhosis of liver] Chronic Other liver diseases (1 source) Unspecified cirrhosis of liver; Translations: [UNSPECIFIED CIRRHOSIS OF LIVER] Onset: 3 Chronic Other liver diseases (1 source) Biliary cirrhosis; Translations: [Biliary cirrhosis, unspecified] 06-28-2024 Chronic Other nervous system disorders (12 sources) Peripheral nerve disease 03-13-2020 Chronic Other nervous system disorders (4 sources) Unsteadiness on feet; Translations: [UNSTEADINESS ON FEET] Onset: 3 Episodic Other nervous system disorders (2 sources) Paresthesia; Translations: [Paresthesia of skin] 05-28-2024 Episodic Other nutritional; endocrine; and metabolic disorders (12 sources) Body mass index 30+ - obesity 12-31-2020 Chronic Other nutritional; endocrine; and metabolic disorders (20 sources) Obesity; Translations: [Obesity, unspecified] Onset: 4 10-11-2023 Chronic Other nutritional; endocrine; and metabolic disorders (2 sources) Severe obesity; Translations: [Class 2 severe obesity due to excess calories with serious comorbidity and body mass index (BMI) of 35.0 to 35.9 in adult (CMS/[facility])] 03-05-2024 Chronic Other nutritional; endocrine; and metabolic disorders (4 sources) Obesity caused by energy imbalance; Translations: [Other obesity due to excess calories] 02-14-2024 Chronic Other screening for suspected conditions (not mental disorders or infectious disease) (20 sources) Encounter for screening mammogram for malignant neoplasm of breast; Translations: [Encounter for screening for malignant neoplasm of rectum] Onset: 2 Episodic Residual codes; unclassified (20 sources) Obstructive sleep apnea syndrome; Translations: [Obstructive sleep apnea (adult) (pediatric)] Onset: 4 10-11-2023 Chronic Residual codes; unclassified (20 sources) Periodic limb movement disorder; Translations: [Periodic limb movement disorder] Onset: 4 10-11-2023 Chronic Residual codes; unclassified (20 sources) Hypersomnia; Translations: [Hypersomnia, unspecified] Onset: 4 10-11-2023 Chronic Residual codes; unclassified (10 sources) Periodic leg movements of sleep ; Translations: [Periodic limb movement disorder] Onset: 4 10-11-2023 Chronic Residual codes; unclassified (1 source) Altered mental status, unspecified; Translations: [ALTERED MENTAL STATUS UNSPECIFIED] Onset: 1 Episodic Residual codes; unclassified (1 source) Family history of malignant neoplasm of breast; Translations: [FAMILY HX MALIG NEOPLASM OF BREAST] Onset: 3 Episodic Residual codes; unclassified (12 sources) FH: Liver disease 03-13-2020 Episodic Skin and subcutaneous tissue infections (12 sources) Furuncle 12-31-2020 Episodic Substance-related disorders (13 sources) Nicotine dependence, cigarettes, uncomplicated; Translations: [Smoker] Onset: 3 03-13-2020 Chronic Thyroid disorders (20 sources) Hypothyroidism, unspecified; Translations: [Hypothyroidism] Onset: 1 Chronic Unclassified (2 sources) 1 year follow up Onset: 5 Viral infection (4 sources) Human papilloma virus infection; Translations: [Papillomavirus as the cause of diseases classified elsewhere] 05-29-2024 Episodic Viral infection (4 sources) COVID-19; Translations: [COVID-19] Onset: 3 Past or Other Problems Problem Classification Problem Date Documented Date Episodic/Chronic Deficiency and other anemia (1 source) Anemia, unspecified; Translations: [ANEMIA UNSPECIFIED] Onset: 03-21-2022 Episodic Diabetes mellitus without complication (1 source) Other abnormal glucose; Translations: [OTHER ABNORMAL GLUCOSE] Onset: 03-21-2022 Episodic Menopausal disorders (1 source) Hormone replacement therapy; Translations: [HORMONE REPLACEMENT THERAPY] Onset: 05-26-2022 Episodic Other connective tissue disease (2 sources) Cramp; Translations: [Cramp and spasm] 01-30-2024 Episodic Other nervous system disorders (20 sources) Impairment of balance; Translations: [Other abnormalities of gait and mobility] Onset: 10-11-2023 10-11-2023 Episodic Other skin disorders (4 sources) Follicular disorder, unspecified; Translations: [FOLLICULAR DISORDER UNSPECIFIED] Onset: 05-22-2022 Episodic Residual codes; unclassified (20 sources) Insomnia; Translations: [Insomnia, unspecified] Onset: 10-11-2023 10-11-2023 Episodic Results Test Name Value Interpretation Reference Range Facil ity Glucose (Bld) [Mass/Vol]on 0 10-30-2024 Glucose Blood, POC 360 mg/dL [facility] - Hematology and Cell countson 10-30-2024 HbA1c (Bld) [Mass fraction] 7.5 % [facility] No Panel Informationon 10-30 [facility] MM TOMOSYNTHESIS SCREENING B Ion 10-25-2024 [place] [address] Mammography Report Signed Patient: RENETTA BARBOSA MR#: [id number] : 1960 Acct:[id number] Age/Sex: 64 / F ADM Date: 10/24/24 Loc: MAMMO Attending Dr: TJ DUTTON Ordering Physician: TJ DUTTON Results: Date of Service: 10/24/24 Follow Up: Procedure(s): MM tomosynthesis screening BI Accession Number(s): [id number] cc: SHAKIRA HIGGINS ; TJ DUTTON Patient Name: RENETTA BARBOSA MR#: [id number] : 1960 Exam Date: 10/24/2024 Ordering Doctor: DR TJ DUTTON RADIOLOGY REPORT PROCEDURE: MM TOMOSYNTHESIS SCREENING [...] breast cancer at age 80. LOCATION: [facility] BREAST COMPOSITION: There are scattered areas of [...] Signed By: 10/25/24 1007 DD/ 1006 TD/TT: Stock Layer: [facility] Radiology, Radiologist, - 10/25/2024 [place] [address] Mammography Report Signed Patient: RENETTA BARBOSA MR#: [id number] : 1960 Acct:[id number] Age/Sex: 64 / F ADM Date: 10/24/24 Loc: MAMMO Attending Dr: TJ DUTTON Ordering Physician: TJ DUTTON Results: Date of Service: 10/24/24 Follow Up: Procedure(s): MM tomosynthesis screening BI Accession Number(s): [id number] cc: SHAKIRA HIGGINS ; TJ DUTTON Patient Name: RENETTA BARBOSA MR#: [id number] : 1960 Exam Date: 10/24/2024 Ordering Doctor: DR TJ DUTTON RADIOLOGY REPORT PROCEDURE: MM TOMOSYNTHESIS SCREENING [...] breast cancer at age 80. LOCATION: [facility] BREAST COMPOSITION: There are scattered areas of [...] Signed By: 10/25/24 1007 DD/ 1006 TD/TT: Stock Layer: [facility] [employer] Radiology Study observation (narrative) [facility] [employer] MM TOMOSYNTHESIS SCREENING B IOrdered By: Radiologist Radiology on 10-25-2024 [facility] [employer] Work Phone: Ambulatory Visit Summaryon 0 10-19-2024 Ambulatory Visit Summary Ambulatory Visit Summary RENETTA BARBOSA :1960 Visit Date:10/19/2024 Ambulatory Visit Instructions Your Diagnosis Stress incontinence Urge incontinence Your Care Team Attending Physician - NGA WILKINS PA-C Primary Care Physician - SHAKIRA HIGGINS CNP This Is Your Medications List albuterol (Ventolin HFA 90 mcg/inh Aerosol) bisacodyl (Dulcolax 5 mg Tab-EC) budesonide/formoterol/ glycopyrrolate (Breztri Aerosphere inhalation aerosol) calcium carbonate (calcium 500 mg tablet) cholecalciferol (cholecalciferol 2000 intl units oral capsule) cyanocobalamin (Vitamin B12 250 mcg oral tablet) cycloSPORINE ophthalmic (Restasis 0.05% Emulsion) dicyclomine (dicyclomine 10 mg Cap) dulaglutide (Trulicity Pen 1.5 mg/0.5 mL subcutaneous solution) empagliflozin (Jardiance 10 mg oral tablet) empagliflozin (Jardiance 25 mg oral tablet) estradiol topical (estradiol 10 mcg vaginal insert) gabapentin (gabapentin 300 mg Cap) hydrocortisone topical (Anusol-HC 25 mg rectal suppository) insulin regular (Humulin R (Concentrated) 500 units/mL subcutaneous solution) levothyroxine (levothyroxine 150 mcg (0.15 mg) Tab) mirabegron (Myrbetriq 50 mg oral tablet, extended release) pantoprazole (Pantoprazole [address] Tab) pravastatin (pravastatin 40 mg Tab) primidone (primidone 50 mg Tab) tiotropium (Spiriva Respimat 1.25 mcg/inh inhalation aerosol) tizanidine (tiZANidine 4 mg Tab) venlafaxine (venlafaxine 150 mg Cap-ER) Procedures Performed EGD - Esophagogastroduodenos copy (09/24/2020), Colonoscopy (04/09/2020), Bilateral tubal ligation, Bile duct stone removal, section, Laparoscopic cholecystectomy, Ligation of bilateral fallopian tubes, Removal of gallstone from bile duct, Tonsillectomy and adenoidectomy. Discharge Vitals Temperature (Oral) 37 ???C Heart Rate (Peripheral) 80 Respiratory Rate 16 Blood Pressure 140/64 Height 60 in Height 152 cm Weight 187.393 lb Weight 85 kg BMI 36.79 What to do next Scheduled Follow-Up Appointments Tuesday2025 11:20 AM EDT With: NGA WILKINS PA-C Where: [facility] [id number]- Medications What How Much When Instructions Unchanged albuterol (Ventolin HFA 90 mcg/ inh Aerosol) 2 Puffs Inhalation 4 times a day as needed for Shortness of breath or wheezing Unchanged bisacodyl (Dulcolax 5 mg Tab-EC) 4 Tablets By Mouth Once at 1:00pm the day prior to colonoscopy Unchanged budesonide/ formoterol/ glycopyrrolate (Breztri Aerosphere inhalation aerosol) 2 Puffs 2 times a day Unchanged calcium carbonate (calcium 500 mg tablet) 1 Tablets Chewed Every day Unchanged cholecalciferol (cholecalciferol 2000 intl units oral capsule) 1 Capsules By Mouth Every day Unchanged cyanocobalamin (Vitamin B12 250 mcg oral tablet) 1 Tablets By Mouth Every day Unchanged cycloSPORINE ophthalmic (Restasis 0.05% Emulsion) 1 Drops Both eyes 2 times a day Unchanged dicyclomine (dicyclomine 10 mg Cap) 1 Capsules TAKE 1 CAPSULE BY MOUTH FOUR TIMES A DAY Unchanged dulaglutide (Trulicity Pen 1.5 mg/ 0.5 mL subcutaneous solution) 1.5 Milligram Subcutaneous Every week Unchanged empagliflozin (Jardiance 10 mg oral tablet) By Mouth Once a day (in the morning) Unchanged empagliflozin (Jardiance 25 mg oral tablet) Unchanged estradiol topical (estradiol 10 mcg vaginal insert) See instructions Use one twice per week Unchanged gabapentin (gabapentin 300 mg Cap) 1 [...] 1 Tablets By Mouth Every day Unchanged mirabegron (Myrbetriq 50 mg oral tablet, extended release) 1 Tablets By Mouth Every day Unchanged pantoprazole (Pantoprazole [address] Tab) 1 Tablets 2 times a day Unchanged pravastatin (pravastatin 40 mg Tab) 1 Tablets Every day Unchanged primidone (primidone 50 mg Tab) 1 Tablets 2 times a day Unchanged tiotropium (Spiriva Respimat 1.25 mcg/ inh inhalation aerosol) 2 Puffs Inhalation Every day Unchanged tizanidine (tiZANidine 4 mg Tab) 1 Tablets By Mouth Every 8 hours Unchanged venlafaxine (venlafaxine 150 mg Cap-ER) 1 Capsules By Mouth Every day Allergies Capsaicin Problems Ongoing - Any problem that you are currently receiving treatment for. Abdominal pain, epigastric Abdominal pain, periumbilical Anal skin tag Anxiety with depression Bleeding hemorrhoid BMI 39.0-39.9,adult Chronic obstructive pulmonary disease Constipation Diabetes Dry eyes Dry mouth Family history of hepatic cirrhosis Furuncle Gastroparesis due to DM GERD (gas (more content not included)... [facility] Urology Office/Clinic Noteon 10-19-2024 Urology Office/Clinic Note Urology Office/Clinic Note Chief Complaint 4 mth f/u HPI Staff 4 month f/u. Previous dx: UUI, dry eyes, dry mouth. *Increased Myrbetriq dose from 25mg to 50mg qd pt states the increase of Myrbetriq is working very well. pt states she does have some stress incontinence once in a while when she sneezes or coughs, but only when she holds it too long. Review of Systems PHQ Score Initial Depression Screen Score: 0 SCORE No fever, chills, malaise, myalgia. No dysuria, pain w/ BM. No blood in urine or stool. No straining, stream changes. No discharge, odor, or change in color of urine. Physical Exam Vitals & Measurements T: 37 ???C(Oral) HR: 80(Peripheral) RR: 16 BP: 140/64 HT: 60 in HT: 152 cm WT: 187.393 lb WT: 85 kg BMI: 36.79 General: nontoxic, NAD Mouth: moist mucosa Lungs: normal respiratory effort Cardio: regular rate, good distal perfusion Abdomen: nondistended Neurologic: Grossly normal Skin: No rashes or suspicious lesions Assessment/Plan 1. Urge incontinence (N39.41: Urge incontinence) Started Myrbetriq 25mg in Feb 2024. Pt had marked improvement from this. Went from soaking Depends 1-2x per day to wearing pads. 06/08/24: BBSQ 23 poor No improvement despite improved DM control (was >8, now around 6 per pt), diet changes (down to 2c coffee daily from 1 pot), PFPT (did 5 visits here). Pt has also been losing a lot of weight since starting Jardiance. Pt is happy w improvement w Myrbetriq 25mg but still having some UUI at times. Discussed risks/benefits of increasing dose to 50mg, pt would like to try. Pt is not a candidate for Anticholinergics due to Chronic dry eyes (on Restasis) and dry mouth (on Cevimeline). TODAY: Pt doing much better w higher dose. Very pleased. BBSQ 8 very good control. No bothersome side effects. Will continue. UA completed in office today shows no microhematuria or signs of infection. -Cont Myrbetriq 50mg daily Ordered: E&M of Est. Patient Low 20-29 Min 21703 2. Stress incontinence (N39.3: Stress incontinence (female) (male)) Only w full bladder. Not bothersome. Discussed continued home PFPT. Ordered: E&M of Est. Patient Low 20-29 Min 30491 Urnls Dip Stick Auto w/o Microscopy POC 03037 Orders: mirabegron, 50 mg = 1 tab(s), Oral, Daily, # 30 tab(s), Refills(s) , Pharmacy: [facility]/pharmacy #[id number], 152, cm, 10/19/24 11:54:00 EDT, Height/Length Dosing, 85, kg, 10/19/24 11:54:00 EDT, Weight Dosing Follow-up With When Contact Information JUANITO BREWER, NGA Freedman, URL In 1 year [address] [place] [address] Additional Instructions: Patient Education Overactive [...] adenoidectomy. Medications Anusol-HC 25 mg rectal suppository, 1 supp, Rectal, BID Breztri Aerosphere inhalation aerosol, 2 puff(s), BID calcium 500 mg tablet, 500 mg= 1 tab(s), Chewed, Daily cholecalciferol 2000 intl units oral capsule, 2000 International_Unit= 1 cap(s), Oral, Daily dicyclomine 10 mg Cap, 10 mg= 1 cap(s) Dulcolax 5 mg Tab-EC, 20 mg= 4 tab(s), Oral, Once estradiol 10 mcg vaginal insert, See Instructions gabapentin 300 mg Cap, 300 mg= 1 cap(s), Oral, Bedtime Humulin R (Concentrated) 500 units/mL subcutaneous solution, See Instructions Jardiance 10 mg oral tablet, Oral, qAM Jardiance 25 mg oral tablet levothyroxine 150 mcg (0.15 mg) Tab, 150 mcg= 1 tab(s), Oral, Daily Myrbetriq 50 mg oral tablet, extended release, 50 mg= 1 tab(s), Oral, Daily, 11 refills Pantoprazole [address] Tab, 1 tab(s), BID pravastatin 40 mg Tab, 40 mg= 1 tab(s), Daily primidone 50 mg Tab, 50 mg= 1 tab(s), BID Restasis 0.05% Emulsion, 1 drop(s), Eye-Both, BID Spiriva Respimat 1.25 mcg/inh inhalation aerosol, 2 puff(s), Inhalation, Daily tiZANidine 4 mg Tab, 4 mg= 1 tab(s), Oral, q8hr Trulicity (more content not included)... [facility] Comment on above: Result Comment: Elec tronically Signed By: NGA WILKINS PA-C\.br\Date and Time Signed: 10/19/24 12:18 EDT Office Visiton 09-03-2024 Follow-up visit [id number] Renetta Barbosa 1960 F Date Provider Department Center 09/03/2024 [id number]-ROZIIPISSA BURGER Family History Problem Relation Age of Onset Diabetes Mother Coronary artery disease Mother Lung cancer Father Breast cancer Maternal Grandmother Family Status - Relation Status Age at Mother Alive Father Maternal Grandmother Level of Service:81249 [place] OFFICE/OUTPATIENT ESTABLISHED LOW MDM 20 MIN Reason for Visit and Comments: 1 year follow up [Other] Hyperlipidemia [182] Hypertension [951271] Normal [facility] Steve 08-16-2024 L -- ---- Specimen: [id number] Received: 08/16/24 Status: VIK Olson Num: [id number] Spec Type: Surgical Subm Dr: TJ DUTTON MD Tissues: A Cervical Biopsy/Leep Biopsy (CERVICAL LEEP) B Endocervix - Curettings (ECC) Procedures: Brunilda EASTMAN/Ted L4/2 ---- Age/ Patient Sex Location Account Attending Physician ---- Renetta Barbosa 64/F [place] [id number] TJ DUTTON MD ---- SPEC NUM: [id number] RECD: 08/16/24 STATUS: VIK OLSON NUM: [id number] PANCHITO: 08/16/24-[address] [facility] [address]: TJ DUTTON MD ENTERED: 08/16/[address] [facility] [address]: SPEC TYPE: Surgical DEPT: S ENTERED BY: [id number] [facility] BY: [id number] ORDERED: HE/4, Gross/Micro L4/2 ORDERED: HE/4, Gross/Micro L4/2 Pathological Diagnosis A. Cervix, LEEP, cone biopsy: - Dense fibrotic stromal tissue with focal benign endocervical glands. - No squamous epithelium present for evaluation. B. Endocervix, curettage: - Minute fragments of fibrotic tissue. - No endocervical tissue present for evaluation. Comment: Both specimens are inadequate for evaluation due to the absence of diagnostic material. Recommend further tissue sampling if clinically indicated. Clinical Information Cervical dysplasia Gross Description Part A is received in formalin labeled with the patients name, date of , and cervical LEEP is a Telfa pad with and ovoid domed portion of cervical conization specimen, 1 x 0.9 x 0.5 cm. A probable cervical os is not identified. The specimen is inked black, serially sectioned, and entirely submitted in a single cassette. (1, ns, [id number] A) Part B is received in formalin labeled with the patients name, date of , and ---- Specimen: [id number] Received: 08/16/24 Status: VIK Aliceacecile Num: [id number] Spec Type: Surgical Subm Dr: TJ DUTTON MD Tissues: A Cervical Biopsy/Leep Biopsy (CERVICAL LEEP) B Endocervix - Curettings (ECC) Procedures: HE/4, Gross/Micro L4/2 ---- Patient: Renetta Barbosa [id number] (Continued) ---- Specimen: [id number] Received: 08/16/24 (Continued) Gross Description (Continued) Signed (signature on file) Vic Allison MD 08/17/24 1130 ---- Specimen: [id number] Received: 08/16/24 Status: VIK Olson Num: [id number] Spec Type: Surgical Subm Dr: TJ DUTTON MD Tissues: A Cervical Biopsy/Leep Biopsy (CERVICAL LEEP) B Endocervix - Curettings (ECC) Procedures: QUENTIN/Brunilda Hunter/Ted L4/2 ---- Patient: Renetta Barbosa [id number] (Continued) ---- Specimen: [id number] Received: 08/16/24 (Continued) Gross Description (Continued) endocervical curettage is a Telfa pad with adherent fragments of zuniga-guzman, delicate and feathery tissue, 0.4 x 0.2 x 0.1 cm in aggregate. The specimen is filtered and entirely submitted in a single cassette. (1, ns, B) Microscopic Description A B: Microscopic examination is performed. CPT Codes 00032, 17231 ---- ---- Specimen: [id number] Received: 08/16/24 Status: VIK Olson Num: [id number] Spec Type: Surgical Subm Dr: TJ DUTTON MD Tissues: A Cervical Biopsy/Leep Biopsy (CERVICAL LEEP) B Endocervix - Curettings (ECC) Procedures: HE/4, Gross/Micro L4/2 ---- Patient: Renetta Barbosa [id number] (Continued) ---- Signed (signature on file) Vic Allison MD 08/17/24 1130 Normal [facility] Glucose (Bld) [Mass/Vol]Orde red By: Zakiya Pearl on 07-02-2024 Glucose Blood, POC 192 mg/dL [facility] - Hematology and Cell countson 07-02-2024 HbA1c (Bld) [Mass fraction] 7.7 % [facility] No Panel InformationOrdered By: Zakiya Pearl on 07-02-2024 [facility] AFP SerPl-mCncon 06-28-2024 AFP [Mass/Vol] 1.53 ng/mL Normal <9.00 [facility] Comment on above: Order Comment: Speci men Type: BLOOD SPECIMEN Ordering Facility: [facility] Address: [address] [place] [address] Result Comment: The Alpha-Fetoprotein test was performed using the Nayeli Unicel DxI immunoenzymatic assay. Results obtained with different assay methods or kits cannot be used interchangeably. Performed By: #### 1 834-1 #### [facility] CLIA [id number] [address] [place] [address] [place] CNOVSPon 06-28-2024 CNOVSP Visit (SP) Office ([place]) RENETTA BARBOSA ([id number]) 1960 F Date Time Provider Department 06/28/24 2:20 PM ANDRE FUNES During your visit today, we recorded the following information about you: Temperature Pulse Respiration Blood pressure 97.5 degrees 86/minute 16/minute 143/78 Weight 79.5 kg Andre Funes MD 06/28/2024 3:34 PM Signed NAME: Renetta Barbosa CLINIC NO.: [id number] DATE OF SERVICE: June 28, 2024 ([place]) Some elements in this clinic note that are critical to medical decision making have been carefully reviewed and included from a prior clinic note dated: June 23, 2023 ([place]) Referring Provider: Shakira Higgins CNP Additional Clinicians involved in Renetta Barbosa's care: Boris Miguel, Leonardo Sung, Benjamin Del Toro CC: Thrombocytopenia ASSESSMENT: This is a 64 year old woman with thrombocytopenia that is [...] multiple accessory spleens. Needs HCC screening PLAN: Anemia panel AND AFP labs and US RUQ/Abdomen q 6 months with PCP RTC PRN - HPI: CASE HISTORY: Reverse Chronological Order 04/26/2024 - US RUQ/Abdomen: RUQ: Stable nodular echogenic liver Abdomen: Normal spleen 01/04/2024 - US RUQ: Slightly nodular liver margins. Cirrhosis? Slightly prominent liver; nonspecific 06/10/2022 - US RUQ/Spleen: RUQ: The liver is enlarged measuring 23cm. There is heterogeneity of echotexture of the liver along with slight nodularity of the liver surface suggesting diffuse hepatocellular disease such and cirrhosis. No discrete masses were noted. Gallbladder is absent. The remainder the right upper quadrant was unremarkable. Spleen: Spleen is slightly enlarged measuring 12 [...] 08/28/2012 - platelets 141 Updated Visit, June 28, 2024: Renetta returns for her annual follow up. She endorses several episodes of nausea each week. Her appetite has diminished and she also complains of constipation. She started Jardiance recently. She has not been seen by GI since Dr. Davila retired (03/2023). Today's AFP is pending. Updated Visit, June 23, 2023: Renetta returns today. She is not anemic, reports no bleeding. Following with GI, she has no pain on the sides of her stomach with Gas-X. Ordered US for 1 year. Updated Visit, June 25, 2022: Renetta returns today in follow up. US in [facility] with enlarged nodular liver no masses. She [...] largely asymptomatic. I explained carefully the relationship daniel (more content not included)... Normal [facility] Urology Office/Clinic Noteon 06-08-2024 Urology Office/Clinic Note Urology Office/Clinic Note Chief Complaint 3 mth f/u HPI Staff 64yr old female pt here for 3mo f/u Previous Dx: urge incontinence, dry eyes, dry mouth, stress incontinence *Myrbetriq 25mg ER daily Dysuria: _no Incomplete bladder emptying: _no Hematuria: _no Frequency: _q2-3 hrs Urgency: _sometimes Nocturia: _2x Stream: _normal Leaking: _rarely Post void dripping: _no Wearing pads/ Depends: _pads for protection Urge incontinence: _rarely, only when too far from restroom Stress incontinence: _no Incontinence without Sensory Awareness: _no Abdominal pain: _no Flank pain: _no Sexual complaints: _ Review of Systems PHQ Score Initial Depression Screen Score: 2 SCORE no fevers Physical Exam Vitals & Measurements HR: 76(Peripheral) BP: 136/76 HT: 60 in HT: 152 cm WT: 86.4 kg WT: 190.479 lb BMI: 37.4 nontoxic Assessment/Plan 1. Urge incontinence (N39.41: Urge incontinence) BBSQ 23 poor No improvement despite improved DM control (was >8, now around 6 per pt), diet changes (down to 2c coffee daily from 1 pot), PFPT (did 5 visits here). Pt has also been losing a lot of weight since starting Jardiance. Started Myrbetriq 25mg in Feb 2024. Pt had marked improvement from this. Went from soaking Depends 1-2x per day to wearing pads. Pt is happy w improvement but still having some UUI at times. No bothersome side effects noted. Discussed risks/benefits of increasing dose to 50mg, pt would like to try. Rx sent to pharmacy. Pt did switch insurance in May. May need to complete Prior Auth. Pt is not a candidate for Anticholinergics due to #2 and #3. Ordered: E&M of Est. Patient Moderate 30-39 Min 20218 Urnls Dip Stick Auto w/o Microscopy POC 26619 2. Dry eyes (H04.123: Dry eye syndrome of bilateral lacrimal glands) On Restatsis 3. Dry mouth (R68.2: Dry mouth, unspecified) On Cevimeline Orders: mirabegron, 50 mg = 1 tab(s), Oral, Daily, # 30 tab(s), Refills(s) 11, Pharmacy: [facility]/pharmacy #[id number], 152, cm, 06/08/24 12:12:00 EST, Height/Length Dosing, 86.4, kg, 06/08/24 12:12:00 EST, Weight Dosing Follow-up With When Contact Information JUANITO BREWER, NGA Freedman, URL In 3 months [address] [place] [address] Additional Instructions: Patient Education Overactive [...] from bile duct, Tonsillectomy and adenoidectomy. Medications Breztri Aerosphere inhalation aerosol, 2 puff(s), BID calcium 500 mg tablet, 500 mg= 1 tab(s), Chewed, Daily cevimeline 30 mg oral capsule, 30 mg= 1 cap(s), TID cholecalciferol 2000 intl units oral capsule, 2000 International_Unit= 1 cap(s), Oral, Daily diclofenac Top 1% gel, 2 gm, Topical, QID dicyclomine 10 mg Cap, 10 mg= 1 cap(s) Dulcolax 5 mg Tab-EC, 20 mg= 4 tab(s), Oral, Once estradiol 10 mcg vaginal insert, See Instructions gabapentin 300 mg Cap, 300 mg= 1 cap(s), Oral, Bedtime Humulin R (Concentrated) 500 units/mL subcutaneous solution, See Instructions Jardiance 10 mg oral tablet, Oral, qAM Jardiance 25 mg oral tablet Lasix 40 mg Tab, 40 mg= 1 tab(s), Oral, Daily levothyroxine 150 mcg (0.15 mg) Tab, 150 mcg= 1 tab(s), Oral, Daily Myrbetriq 50 mg oral tablet, extended release, 50 mg= 1 tab(s), Oral, Daily, 11 refills Pantoprazole [address] Tab, Oral, Daily pravastatin 40 mg Tab, 40 mg= 1 tab(s), Daily primidone 50 mg Tab, 50 mg= 1 tab(s), BID Restasis 0.05% Emulsion, 1 drop(s), Eye-Both, BID Trulicity Pen 1.5 mg/0.5 mL subcutaneous solution, 1.5 mg, SubCutaneous, qWeek venlafaxine 150 mg Cap-ER, 150 mg= 1 cap(s), Oral, Daily Ventolin HFA 90 mcg/inh Aerosol, 2 puff(s), Inhalation, QID, PRN Vitamin B12 250 mcg oral tablet, 250 mcg= 1 tab(s), Oral, Daily Allergies Capsaicin Social History Alcohol - Denies Alcohol Use, 03/18/2020 Never., 06/08/2024 Substance Abuse Past. Marijuana. (more content not included)... Normal [facility] Comment on above: Result Comment: Elec tronically Signed By: NGA WILKINS PA-C.anamika\Date and Time Signed: 06/08/24 12:35 EST Jacqueline 04-26-2024 CNPN Telephone ([place]) RENETTA BARBOSA ([id number]) 1960 F Date Time Provider Department 04/26/24 LUZ HMAILTON During your visit today, we recorded the following information about you: Luz Hamilton RN 04/26/2024 10:44 AM Signed [facility] needs additional order for US to include the spleen with her abdomen US every 6 months. The other US Abd will not include the spleen. If needed each time, will need 2 orders sent each time. Fax to US directly: [phone] Mio: please review and sign Luz Hamilton RN Allergies As of Date: 04/26/2024 (No Known Allergies) Date Reviewed: 06/23/2023 Reviewed by: Yaritza Amato MA - Fully Assessed Reason for Visit: US spleen order [Other] Primary Visit Diagnosis:Thrombocytop enia (HCC) [D69.6] Order(s):US ABD SPLEEN [1510613] Order #: [id number] STANDING Prescriptions as of 04/26/2024 - BREZTRI AEROSPHERE 160-9-4.8 mcg/actuation HFA aerosol [...] (FLONASE) 50 mcg/actuation nasal spray Use 1 Columbia in each nostril as needed. - furosemide [...] once daily. Problem List As Of Date 04/26/2024 Noted Resolved Thrombocytopenia (HCC) [D69.6] 06/26/2023 Diabetic gastroparesis (HCC) (HCC) [E11.43, K3*06/26/2023 Encounter Status:Closed by ANDRE FUNES on 04/26/24 [facility] Jacqueline 04-23-2024 CNPN Telephone ([place]) RENETTA BARBOSA ([id number]) 1960 F Date Time Provider Department 04/23/24 [...] US [Other] Prescriptions as of 04/23/2024 - RAQUELTRI AEROSPHERE 160-9-4.8 mcg/actuation HFA aerosol inhaler [...] (FLONASE) 50 mcg/actuation nasal spray Use 1 Columbia in each nostril as needed. - furosemide [...] Status:Closed by LUZ HAMILTON on 04/23/24 Normal [facility] Glucose (Bld) [Mass/Vol]Orde red By: Zakiya Pearl on 03-05-2024 Glucose Blood, POC 187 mg/dL [facility] - Hematology and Cell countson 03-05-2024 HbA1c (Bld) [Mass fraction] 7.4 % [facility] No Panel InformationOrdered By: Zakiya Pearl on 03-05-2024 [facility] Ambulatory Visit Summaryon 1 Ambulatory Visit Summary Ambulatory Visit Summary RENETTA BARBOSA :1960 Visit Date:02/29/2024 Ambulatory Visit Instructions Your [...] Duration: 30 Days Refills: [address] [facility]/pharmacy #[id number] Unchanged albuterol (Ventolin HFA 90 mcg/ inh [...] venlafaxine ( (more content not included)... Normal [facility] Urology Office/Clinic Noteon 02-29-2024 Urology Office/Clinic Note [...] E&M of Est. Patient Moderate 30-39 Min 87391 2. Dry eyes (H04.123: Dry eye syndrome of bilateral lacrimal glands) On Restatsis Ordered: E&M of Est. Patient Moderate 30-39 Min 92523 3. Dry mouth (R68.2: Dry mouth, unspecified) On Cevimeline Ordered: E&M of Est. Patient Moderate 30-39 Min 11388 4. Stress incontinence (N39.3: Stress incontinence (female) (male)) < Ordered: E&M of Est. Patient Moderate 30-39 Min 69069 Orders: mirabegron, 25 mg = 1 tab(s), Oral, Daily, X 30 day(s), # 30 tab(s), Refills(s) 1, Pharmacy: [facility]/pharmacy #[id number], 152, cm, 02/29/24 9:28:00 EDT, Height/Length Dosing, 86.4, kg, 02/29/24 9:28:00 EDT, Weight Dosing Body Mass Index (BMI) documented 3008F Current tobacco smoker 1034F Depression Screening Negative 3352F Influenza immunization status assessed 1030F Most recent diastolic blood pressure 80-89 mm Hg 3079F Most recent systolic blood pressure >= 140 mm Hg 3077F Urnls Dip Stick Auto w/o Microscopy POC 45281 Follow-up With When Contact Information JUANITO BREWER, NGA Freedman, JACKL Within 3 months [address] [place] [address] Additional Instructions: Patient Education Overactive Bladder, Adult [...] 2000 intl (more content not included)... Normal [facility] Comment on above: Result Comment: Elec tronically Signed By: NGA WILKINS PA-C\.br\Date and Time Signed: 02/29/24 15:58 EDT Ambulatory Visit Summaryon 0 01-02-2024 Ambulatory Visit Summary Ambulatory Visit Summary ARAM BARBOSACarol Ochoa :1960 Visit Date:01/02/2024 Ambulatory Visit Instructions Your [...] NGA WILKINS PA-C Where: [facility] [address] [place] [address]- You Need to Schedule the Following Appointments Follow Up with JUANITO BREWER, YARA DEL RIO When: Within 3 months Where: [address] [place] [address] Medications What How Much When Instructions Unchanged [...] Unchanged venlafaxi (more content not included)... Normal [facility] Urology Office/Clinic Noteon 01-02-2024 Urology Office/Clinic [...] up to a max of 10 Ordered: 38558 EMG anal/urethral sphincter no needle 42002 Biofeedback training, perineal muscles, anorectal 75514 Anorectal Manometry 75488 ELECTRICAL STIMULATION 54657 Urnls Dip Stick Auto w/o Microscopy POC 41194 Follow-up With When Contact Information JUANITO BREWER, NGA Freedman, YARA Within 3 months [address] [place] [address] Additional Instructions: Patient Education Overactive Bladder, Adult [...] Bedtime Humu (more content not included)... Normal [facility] Comment on above: Result Comment: Elec [...] NGA WILKINS PA-C Where: [facility] Normal [address] [place] [address]- \.br\ You Need to Schedule the Following Appointments\.br\ Follow Up with JUANITO BREWER, YARA DEL RIO When: In 2 weeks\.br\ Where:\.br\ [address]br\ [place] [address]\.br\ \.br\ Medications\.br\ What How Much When Instructions\.br\ [...] provider.\.br\ Document Revised: 09/17/2021 Document Reviewed: 09/17/2021 [employer] Patient Education ? 2022 [employer].br\ \.br\ [facility] Interdisciplinary Note - Soc ial Workeron 12-05-2023 Interdisciplinary Note - Geneticist Interdisciplinary Note - Geneticist Consult for positive depression screen received. Chart review completed and it was noted that this consult has been received in error as patient's depression screen score was 0. SW will remain available. Normal [facility] Urology Office/Clinic Noteon 12-05-2023 Urology Office/Clinic [...] Urnls Dip Stick Auto w/o Microscopy POC 68685 Follow-up With When Contact Information NGA WILKINS PA-C, URL In 2 weeks [address] [place] [place] [address] Additional Instructions: Patient Education Kegel [...] 1 cap (more content not included)... Normal [facility] Comment on above: Result Comment: Elec [...] NGA WILKINS PA-C Where: [facility] Invalid Interpretation Code [address] [place] [address]- \.br\ Tuesday 11:20 AM EDT \.br\ With: NGA WILKINS PA-C\.br\ Where: [facility] Urology Office/Clinic Noteon 11-28-2023 Urology Office/Clinic [...] and discuss other options, try PFPT at [facility]. Pt prefers options #1. Follow up 1 week for PFPT #4 or sooner if needed. Pt understands and agrees with plan. Follow-up With When Contact Information JUANITO BREWER, NGA Freedman, URL [address] [place] [address] Additional Instructions: 1 week PFPT #4 Patient Education Kegel Exercises Documentation recorded by the scrreema Batista accurately reflects the services(s) I performed [...] Daily Magdaleno (more content not included)... Normal [facility] Comment on above: Result Comment: Elec [...] NGA WILKINS PA-C Where: [facility] Invalid Interpretation Code [address] [place] [address]- \.br\ Tuesday 11:20 AM EDT \.br\ With: NAG WILKINS PA-C\.br\ Where: [facility] Urology Office/Clinic Noteon 11-21-2023 Urology Office/Clinic [...] in 1 week(s) for session #3 Ordered: 19470 EMG anal/urethral sphincter no needle 79678 Biofeedback training, perineal muscles, anorectal 73621 Anorectal Manometry 39035 ELECTRICAL STIMULATION 24133 Urnls Dip Stick Auto w/o Microscopy POC 94389 Follow-up With When Contact Information NGA WILKINS PA-C, YARA In 1 week [address] [place] [address] Additional Instructions: Patient Education Overactive [...] Use:. Cigarett (more content not included)... Normal [facility] Comment on above: Result Comment: Elec tronically Signed By: NGA WILKINS PA-C\.br\Date and Time Signed: 11/21/23 12:27 EDT Consent for Procedure/Surger yon 11-15-2023 Consent for Procedure/Surgery [id number]#1.00 TIFF Normal [facility] EMG Electromyographyon 11-14 EMG Electromyography [id number]#1.00 TIFF [facility] Ambulatory Visit Summaryon 0 11-14-2023 Ambulatory Visit [...] NGA WILKINS PA-C Where: [facility] Invalid Interpretation Code [address] [place] [address]- \.br\ Tuesday 11:20 AM EDT \.br\ With: JUANITO BREWER, NGA Freedman\.br\ Where: [facility] Patient Educationon 11-14-19 Patient Education [...] health care provider. General instructions ? Take omgg-olf-wrsnvch and prescription medicines only as told by [...] monitor yo (more content not included)... Normal [facility] Urology Office/Clinic Noteon 11-14-2023 Urology Office/Clinic [...] in 1 week(s) for session #2 Ordered: 89300 EMG anal/urethral sphincter no needle 03376 Biofeedback training, perineal muscles, anorectal 57202 Anorectal Manometry 04783 ELECTRICAL STIMULATION 19270 Urnls Dip Stick Auto w/o Microscopy POC 58816 Urnls Dip Stick Auto w/o Microscopy POC 78269 Follow-up With When Contact Information JUANITO BREWER, YARA DEL [place] In 1 week [address] [place] [address] Additional Instructions: Patient Education Overactive [...] or more (more content not included)... Normal [facility] Comment on above: Result Comment: Elec tronically Signed By: NGA WILKINS PA-C\.anamika\Date and Time Signed: 11/14/23 12:[address] LUNG CANCER SCREENINGon 0 10-20-2022 CT [...] LEONEL MATA Date: 2022-10-20 08:02 Normal [facility] CBC AUTO DIFFon 10-19-2022 BASO # 0.0 103/ul Normal 0.0-0.1 [facility] Comment on above: Performed By: #### C BC #### [facility] [address] [place] [address] Dr. Blanquita Farris Basophils/100 WBC (Bld) 0.4 % Normal 0.2-2.0 [facility] Comment on above: Performed By: #### C BC #### [facility] [address] [place] [address] Dr. Blanquita Farris EO # 0.1 103/ul Normal 0.0-0.7 [facility] Comment on above: Performed By: #### C BC #### [facility] [address] [place] [address] Dr. Blanquita Farris Eosinophils/100 WBC (Bld) 1.5 % Normal 0.9-7.0 [facility] Comment on above: Performed By: #### C BC #### [facility] [address] [place] [address] Dr. Blanquita Farris Erythrocyte distribution width (RBC) [Ratio] 15.3 % Critically high 11.0-15.0 [facility] Comment on above: Performed By: #### C BC #### [facility] [address] [place] [address] Dr. Blanquita Farris Hematocrit (Bld) [Volume fraction] 42.7 % Normal 36.0-48.0 [facility] Comment on above: Performed By: #### C BC #### [facility] [address] [place] [address] Dr. Blanquita Farris Hemoglobin (Bld) [Mass/Vol] 13.8 g/dL Normal 12.0-16.0 [facility] Comment on above: Performed By: #### C BC #### [facility] [address] [place] [address] Dr. Blanquita Farris IG # 0.04 10e3/ul Critically high 0.00-0.03 [facility] Comment on above: Performed By: #### C BC #### [facility] [address] [place] [address] Dr. Blanquita Farris IG % 0.6 % Critically high 0.0-0.5 [facility] Comment on above: Performed By: #### C BC #### [facility] [address] [place] [address] Dr. Blanquita Farris LYMPH # 1.2 103/ul Normal 1.2-3.8 [facility] Comment on above: Performed By: #### C BC #### [facility] [address] [place] [address] Dr. Blanquita Farris Lymphocytes/100 WBC (Bld) 18.0 % Critically low 20.5-60.0 [facility] Comment on above: Performed By: #### C BC #### [facility] [address] [place] [address] Dr. Blanquita Farris MANUAL DIFF REQ NO Normal [facility] Comment on above: Performed By: #### C BC #### [facility] [address] [place] [address] Dr. Blanquita Farris MCH (RBC) [Entitic mass] 26.8 pg Normal 26.7-34.0 [facility] Comment on above: Performed By: #### C BC #### [facility] [address] [place] [address] Dr. Blanquita Farris MCHC (RBC) [Mass/Vol] 32.3 g/dL Normal 29.9-35.2 [facility] Comment on above: Performed By: #### C BC #### [facility] [address] [place] [address] Dr. Blanquita Farris MCV (RBC) [Entitic vol] 83.1 fL Normal 81.0-99.0 [facility] Comment on above: Performed By: #### C BC #### [facility] [address] [place] [address] Dr. Blanquita Farris MONO # 0.4 103/ul Normal 0.3-0.8 [facility] Comment on above: Performed By: #### C BC #### [facility] [address] [place] [address] Dr. Blanquita Farris Monocytes/100 WBC (Bld) 5.4 % Normal 1.7-12.0 [facility] Comment on above: Performed By: #### C BC #### [facility] [address] [place] [address] Dr. Blanquita Farris NEUT # 5.0 103/ul Normal 1.4-6.5 [facility] Comment on above: Performed By: #### C BC #### [facility] [address] [place] [address] Dr. Blanquita Farris Neutrophils/100 WBC (Bld) 74.1 % Normal 43.0-75.0 [facility] Comment on above: Performed By: #### C BC #### [facility] [address] [place] [address] Dr. Blanquita Farris Platelet mean volume (Bld) [Entitic vol] 10.2 fL Normal 9.5-13.5 [facility] Comment on above: Performed By: #### C BC #### [facility] [address] [place] [address] Dr. Blanquita Farris PLT 180 103/ul Normal 150-450 [facility] Comment on above: Performed By: #### C BC #### [facility] [address] [place] [address] Dr. Blanquita Farris RBC 5.14 106/ul Normal 4.20-5.40 [facility] Comment on above: Performed By: #### C BC #### [facility] [address] [address] [address] Blanquita Farris WBC 6.8 103/ul Normal 4.0-11.0 [facility] Comment on above: Performed By: #### C BC #### [facility] [address] [address] [address] Blanquita Farris CPKon 10-19-2022 CK [Catalytic activity/Vol] 68 U/L Normal 26-192 [facility] Comment on above: Performed By: #### C MP, CK, TSH #### [facility] [address] [address] [address] Blanquita Farris MG MAMM SCREEN 3D SANTIAGO CADon 10-19-2022 MG MAMM SCREEN 3D SANTIAGO CAD Patient: RENETTA BARBOSA Exam Date: 10/19/2022 : 1960 Gender:F Ordering : SHAKIRA HIGGINS [facility] Admission #: [id number] Family : DR TJ DUTTON Order #: [id number] CLICK HERE TO VIEW EXAM RADIOLOGY REPORT [...] breast cancer at age 80. LOCATION: [facility] BREAST COMPOSITION: Scattered areas fibroglandular density. FINDINGS: [...] MD on 10/19/2022 at 13:50 Normal [facility] PROF 14(COMP METB)on 023 Albumin [Mass/Vol] 3.7 g/dL Normal 3.4-5.0 [facility] Comment on above: Performed By: #### C MP, CK, TSH #### [facility] [address] [address] [address] Blanquita Farris Albumin/Globulin [Mass ratio] 0.8 {ratio} Normal [facility] Comment on above: Performed By: #### C MP, CK, TSH #### [facility] [address] [address] [address] Blanquita Farris ALP [Catalytic activity/Vol] 120 U/L Critically high 46-116 [facility] Comment on above: Performed By: #### C MP, CK, TSH #### [facility] [address] [address] [address] Blanquita Farris ALT [Catalytic activity/Vol] 31 U/L Normal 14-59 [facility] Comment on above: Performed By: #### C MP, CK, TSH #### [facility] [address] [address] [address] Blanquita Farris Anion gap [Moles/Vol] 14.2 mmol/L Normal [facility] Comment on above: Performed By: #### C MP, CK, TSH #### [facility] [address] [address] [address] Blanquita Farris AST [Catalytic activity/Vol] 19 U/L Normal 15-37 [facility] Comment on above: Performed By: #### C MP, CK, TSH #### [facility] [address] [address] [address] Blanquita Farris Bilirubin [Mass/Vol] 0.3 mg/dL Normal 0.2-1.0 [facility] Comment on above: Performed By: #### C MP, CK, TSH #### [facility] [address] [address] [address] Blanquita Farris Calcium [Mass/Vol] 9.4 mg/dL Normal 8.5-10.1 [facility] Comment on above: Performed By: #### C MP, CK, TSH #### [facility] [address] [address] [address] Blanquita Farris Chloride [Moles/Vol] 101 mmol/L Normal 98-107 [facility] Comment on above: Performed By: #### C MP, CK, TSH #### [facility] [address] [address] [address] Blanquita Farris CO2 [Moles/Vol] 28.4 mmol/L Normal 21.0-32.0 [facility] Comment on above: Performed By: #### C MP, CK, TSH #### [facility] [address] [address] [address] Blanquita Farris Creatinine [Mass/Vol] 1.04 mg/dL Critically high 0.55-1.02 [facility] Comment on above: Performed By: #### C MP, CK, TSH #### [facility] [address] [place] [address] Dr. Blanquita Farris EGFR-AF CYPRIOT >60 Normal >=60 [facility] Comment on above: Performed By: #### C MP, CK, TSH #### [facility] [address] [address] [address] Blanquita Farris EGFR-NON AF CYPRIOT 54 mL/min/1.73m2 Critically low >=60 [facility] Comment on above: Performed By: #### C MP, CK, TSH #### [facility] [address] [address] [address] Blanquita Farris Globulin (S) [Mass/Vol] 4.6 g/dL Normal [facility] Comment on above: Performed By: #### C MP, CK, TSH #### [facility] [address] [address] [address] Blanquita Farris Glucose [Mass/Vol] 194 mg/dL Critically high 74-106 T [facility] Comment on above: Performed By: #### C MP, CK, TSH #### [facility] [address] [address] [address] Blanquita Farris Potassium [Moles/Vol] 3.6 mmol/L Normal 3.5-5.1 [facility] Comment on above: Performed By: #### C MP, CK, TSH #### [facility] [address] [place] [address] Dr. Blanquita Farris Protein [Mass/Vol] 8.3 g/dL Critically high 6.4-8.2 [facility] Comment on above: Performed By: #### C MP, CK, TSH #### [facility] [address] [place] [address] Dr. Blanquita Farris Sodium [Moles/Vol] 140 mmol/L Normal 136-145 [facility] Comment on above: Performed By: #### C MP, CK, TSH #### [facility] [address] [place] [address] Dr. Blanquita Farris Urea nitrogen [Mass/Vol] 13.0 mg/dL Normal 7.0-18.0 [facility] Comment on above: Performed By: #### C MP, CK, TSH #### [facility] [address] [place] [address] Dr. Blanquita Farris Urea nitrogen/Creatinine [Mass ratio] 12.5 mg/mg Normal [facility] Comment on above: Performed By: #### C MP, CK, TSH #### [facility] [address] [place] [address] Dr. Blanquita Farris TSHon 10-19-2022 TSH 0.292 uIU/mL Critically low 0.358-3.740 [facility] Comment on above: Performed By: #### C MP, CK, TSH #### [facility] [address] [place] [address] Dr. Blanquita Farris VITAMIN B12on 10-19-2022 Cobalamin (Vitamin B12) [Mass/Vol] 912.0 pg/mL Normal 193.0-986.0 [facility] Comment on above: Performed By: #### V ITB12 #### [facility] [address] [place] [address] Dr. Blanquita Farris US SINGLE QUAD RT [...] KAILEE YANG Date: 2022-06-10 11:46 Normal [facility] US SPLEENon 06-10-2022 US SPLEEN EXAM: US [...] KAILEE YANG Date: 2022-06-10 12:04 Normal [facility] LACTOFERRIN FECAL QUANTon Lactoferrin, Fecal, Quant. 1.96 ug/mL(g) Normal 0.00-7.24 [facility] Comment on above: Result Comment: . [...] (IBS). Performed By: #### I NSULIN #### [facility] [address] [place], [place] [id number] Dr. Blanquita Farris CALPROTECTIN, FECALon 2021 Calprotectin, Fecal 33 ug/g Normal 0-120 [facility] Comment on above: Result Comment: Conc entration Interpretation Follow-Up <16 - 50 ug/g Normal None >50 -120 ug/g Borderline Re-evaluate in 4-6 weeks >120 ug/g Abnormal Repeat as clinically indicated Performed By: #### C ALPOO #### [facility] [address] [place] [address] Dr. Blanquita Farris PANCREATIC ELASTASE FECALon 03-20-2022 Pancreatic Elastase, Fecal 364 ug Elast./g Normal >200 [facility] Comment on above: Result Comment: Korina re Pancreatic Insufficiency: <100 Moderate Pancreatic Insufficiency: 100 - 200 Normal: >200 Performed By: #### C BC #### [facility] [address] [place] [address] Dr. Blanquita Farris BOWEL DISORDERS EVALUATION R ULE-OUT CASCon 03-18-2022 Atypical pANCA Negative Normal Negative [facility] Comment on above: Performed By: #### C BC #### [facility] [address] [place] [address] Dr. Blanquita Farris Note: Comment Normal [facility] Comment on above: Result Comment: Sugg estive of Crohn's disease. Subsequent testing with the Crohn's Disease Prognostic Profile (110039) that includes antiglycan antibodies AMCA, ALCA, ACCA, and Xochitl may aid in the differentiation of clinical forms of CD and prognosis of disease progression. Performed By: #### C BC #### [facility] [address] [place] [address] Dr. Blanquita Farris Saccharomyces Cer. IgG 28.0 Units Critically high 0.0-24.9 [facility] Comment on above: Result Comment: Nega tive <20.0 Equivocal 20.1 - 24.9 Positive >or= 25.0 Performed By: #### C BC #### [facility] [address] [place] [address] Dr. Blanquita Farris tTG/DGP SCR Negative Normal Negative [facility] Comment on above: Performed By: #### C BC #### [facility] [address] [place] [address] Dr. Blanquita Farris INSULINon 03-16-2022 Insulin 43.0 uIU/mL Critically high 2.6-24.9 [facility] Comment on above: Performed By: #### I NSULIN #### [facility] [address] [place] [address] Dr. Blanquita Farris OCC BLD IMMUNO SCREENon 02-21 OCCULT BLOOD Negative Normal NEGATIVE [facility] Comment on above: Performed By: #### C BC #### [facility] [address] [place] [address] Dr. Blanquita Farris CBC AUTO DIFFon 03-15-2022 BASO # 0.0 103/ul Normal 0.0-0.1 [facility] Comment on above: Performed By: #### C BC #### [facility] [address] [place] [address] Dr. Blanquita Farris Basophils/100 WBC (Bld) 0.7 % Normal 0.2-2.0 [facility] Comment on above: Performed By: #### C BC #### [facility] [address] [place] [address] Dr. Blanquita Farris EO # 0.2 103/ul Normal 0.0-0.7 [facility] Comment on above: Performed By: #### C BC #### [facility] [address] [place] [address] Dr. Blanquita Farris Eosinophils/100 WBC (Bld) 2.7 % Normal 0.9-7.0 [facility] Comment on above: Performed By: #### C BC #### [facility] [address] [place] [address] Dr. Blanquita Farris Erythrocyte distribution width (RBC) [Ratio] 14.8 % Normal 11.0-15.0 [facility] Comment on above: Performed By: #### C BC #### [facility] [address] [place] [address] Dr. Blanquita Farris Hematocrit (Bld) [Volume fraction] 43.4 % Normal 36.0-48.0 [facility] Comment on above: Performed By: #### C BC #### [facility] [address] [address] [address] Blanquita Farris Hemoglobin (Bld) [Mass/Vol] 14.1 g/dL Normal 12.0-16.0 [facility] Comment on above: Performed By: #### C BC #### [facility] [address] [address] [address] Blanquita Farris IG # 0.03 10e3/ul Normal 0.00-0.03 [facility] Comment on above: Performed By: #### C BC #### [facility] [address] [address] [address] Blanquita Farris IG % 0.5 % Normal 0.0-0.5 [facility] Comment on above: Performed By: #### C BC #### [facility] [address] [address] [address] Blanquita Farris LYMPH # 1.1 103/ul Critically low 1.2-3.8 [facility] Comment on above: Performed By: #### C BC #### [facility] [address] [address] [address] Blanquita Farris Lymphocytes/100 WBC (Bld) 18.9 % Critically low 20.5-60.0 [facility] Comment on above: Performed By: #### C BC #### [facility] [address] [address] [address] Blanquita Farris MANUAL DIFF REQ NO Normal [facility] Comment on above: Performed By: #### C BC #### [facility] [address] [address] [address] Blanquita Farris MCH (RBC) [Entitic mass] 27.9 pg Normal 26.7-34.0 [facility] Comment on above: Performed By: #### C BC #### [facility] [address] [address] [address] Blanquita Farris MCHC (RBC) [Mass/Vol] 32.5 g/dL Normal 29.9-35.2 [facility] Comment on above: Performed By: #### C BC #### [facility] [address] [address] [address] Blanquita Farris MCV (RBC) [Entitic vol] 85.8 fL Normal 81.0-99.0 [facility] Comment on above: Performed By: #### C BC #### [facility] [address] [address] [address] Blanquita Farris MONO # 0.4 103/ul Normal 0.3-0.8 [facility] Comment on above: Performed By: #### C BC #### [facility] [address] [place] [address] Dr. Blanquita Farris Monocytes/100 WBC (Bld) 7.2 % Normal 1.7-12.0 [facility] Comment on above: Performed By: #### C BC #### [facility] [address] [place] [address] Dr. Blanquita Farris NEUT # 4.1 103/ul Normal 1.4-6.5 [facility] Comment on above: Performed By: #### C BC #### [facility] [address] [place] [address] Dr. Blanquita Farris Neutrophils/100 WBC (Bld) 70.0 % Normal 43.0-75.0 [facility] Comment on above: Performed By: #### C BC #### [facility] [address] [place] [address] Dr. Blanquita Farris Platelet mean volume (Bld) [Entitic vol] 10.4 fL Normal 9.5-13.5 [facility] Comment on above: Performed By: #### C BC #### [facility] [address] [place] [address] Dr. Blanquita Farris PLT 158 103/ul Normal 150-450 [facility] Comment on above: Performed By: #### C BC #### [facility] [address] [place] [address] Dr. Blanquita Farris RBC 5.06 106/ul Normal 4.20-5.40 [facility] Comment on above: Performed By: #### C BC #### [facility] [address] [address] [address] Blanquita Farris WBC 5.9 103/ul Normal 4.0-11.0 [facility] Comment on above: Performed By: #### C BC #### [facility] [address] [address] [address] Blanquita Farris FREE THYROXINE INDEX T7on FTI 4.00 Normal 1.30-4.50 [facility] Comment on above: Performed By: #### C BC #### [facility] [address] [address] [address] Blanquita Farris T3U 31.0 % Normal 30.0-39.0 [facility] Comment on above: Performed By: #### C BC #### [facility] [address] [place] [address] Dr. Blanquita Farris T4 [Mass/Vol] 12.90 ug/dL Normal 4.80-13.90 [facility] Comment on above: Performed By: #### C BC #### [facility] [address] [address] [address] Blanquita Farris GLYCOHEMOGLOBIN A1Con 2021 ADA RECOMMENDATION SEE BELOW Normal [facility] Comment on above: Result Comment: ADA RECOMMENDED LIMIT 4.0 - 6.0 ADA THERAPEUTIC TARGET < 7.0 ACTION SUGGESTED > 7.0 Performed By: #### A 1C #### [facility] [address] [address] [address] Blanquita Farris Glucose [Mass/Vol] 146 mg/dL Normal [facility] Comment on above: Performed By: #### A 1C #### [facility] [address] [address] [address] Blanquita Farris HbA1c (Bld) [Mass fraction] 6.7 % Critically high 4.5-6.2 [facility] Comment on above: Performed By: #### A 1C #### [facility] [address] [address] [address] Blanquita Farris IRONon 03-15-2022 Iron [Mass/Vol] 67.0 ug/dL Normal 50.0-170.0 [facility] Comment on above: Performed By: #### I KEON #### [facility] [address] [address] [address] Blanquita Farris LIPID PROFILEon 03-15-2022 CHOL-HDL RATIO NORM SEE BELOW Normal [facility] Comment on above: Result Comment: 3.3 - 4.4 LOW RISK 4.4 - 7.1 AVERAGE RISK 7.1 - 11.0 MODERATE RISK >11.0 HIGH RISK Performed By: #### C BC #### [facility] [address] [address] [address] Blanquita Farris Cholesterol [Mass/Vol] 137 mg/dL Normal <=200 [facility] Comment on above: Performed By: #### C BC #### [facility] [address] [address] [address] Blanquita Farris Cholesterol in HDL [Mass/Vol] 52 mg/dL Normal 40-60 [facility] Comment on above: Performed By: #### C BC #### [facility] [address] [address] [address] Blanquita Farris Cholesterol in LDL [Mass/Vol] 62.0 mg/dL Normal [facility] Comment on above: Performed By: #### C BC #### [facility] [facility] [address] [address] [address] Blanquita Farris Cholesterol.total/C holesterol in HDL [Mass ratio] 2.6 {ratio} Normal [facility] Comment on above: Performed By: #### C BC #### [facility] [address] [address] [address] Blanquita Farris HDL NORMAL > or = 60 mg/dl - LO W CARDIOVASCULAR RISK <40 mg/dl - HIGH CARDIOVASCULAR RISK Normal [facility] Comment on above: Performed By: #### C BC #### [facility] [address] [address] [address] Blanquita Farris LDL CALC NORMAL SEE BELOW Normal [facility] Comment on above: Result Comment: <100 mg/dl OPTIMAL 100 - 129 mg/dl NEAR OR ABOVE OPTIMAL 130 - 159 mg/dl BORDERLINE HIGH 160 - 189 mg/dl HIGH >190 mg/dl VERY HIGH Performed By: #### C BC #### [facility] [address] [address] [address] Blanquita Farris Triglyceride [Mass/Vol] 115 mg/dL Normal <=150 [facility] Comment on above: Performed By: #### C BC #### [facility] [address] [address] [address] Blanquita Farris VLDL CALC 23.0 mg/dL Normal [facility] Comment on above: Performed By: #### C BC #### [facility] [address] [place] [address] Dr. Blanquita Farris PROF 14(COMP METB)on 022 Albumin [Mass/Vol] 4.1 g/dL Normal 3.4-5.0 [facility] Comment on above: Performed By: #### C BC #### [facility] [address] [place] [address] Dr. Blanquita Farris Albumin/Globulin [Mass ratio] 1.0 {ratio} Normal [facility] Comment on above: Performed By: #### C BC #### [facility] [address] [place] [address] Dr. Blanquita Farris ALP [Catalytic activity/Vol] 94 U/L Normal 46-116 [facility] Comment on above: Performed By: #### C BC #### [facility] [address] [place] [address] Dr. Blanquita Farris ALT [Catalytic activity/Vol] 32 U/L Normal 14-59 [facility] Comment on above: Performed By: #### C BC #### [facility] [address] [place] [address] Dr. Blanquita Farris Anion gap [Moles/Vol] 8.8 mmol/L Normal [facility] Comment on above: Performed By: #### C BC #### [facility] [address] [place] [address] Dr. Blanquita Farris AST [Catalytic activity/Vol] 26 U/L Normal 15-37 [facility] Comment on above: Performed By: #### C BC #### [facility] [address] [place] [address] Dr. Blanquita Farris Bilirubin [Mass/Vol] 0.4 mg/dL Normal 0.2-1.0 [facility] Comment on above: Performed By: #### C BC #### [facility] [address] [place] [address] Dr. Blanquita Farris Calcium [Mass/Vol] 9.0 mg/dL Normal 8.5-10.1 [facility] Comment on above: Performed By: #### C BC #### [facility] [address] [address] [address] Blanquita Farris Chloride [Moles/Vol] 100 mmol/L Normal 98-107 [facility] Comment on above: Performed By: #### C BC #### [facility] [address] [place] [address] Dr. Blanquita Farris CO2 [Moles/Vol] 31.6 mmol/L Normal 21.0-32.0 [facility] Comment on above: Performed By: #### C BC #### [facility] [address] [place] [address] Dr. Blanquita Farris Creatinine [Mass/Vol] 0.87 mg/dL Normal 0.55-1.02 [facility] Comment on above: Performed By: #### C BC #### [facility] [address] [place] [address] Dr. Blanquita Farris EGFR-AF CYPRIOT >60 Normal >=60 [facility] Comment on above: Performed By: #### C BC #### [facility] [address] [place] [address] Dr. Blanquita Farris EGFR-NON AF CYPRIOT >60 Normal >=60 [facility] Comment on above: Performed By: #### C BC #### [facility] [address] [place] [address] Dr. Blanquita Farris Globulin (S) [Mass/Vol] 4.0 g/dL Normal [facility] Comment on above: Performed By: #### C BC #### [facility] [address] [place] [address] Dr. Blanquita Farris Glucose [Mass/Vol] 192 mg/dL Critically high 74-106 T [facility] Comment on above: Performed By: #### C BC #### [facility] [address] [address] [address] Blanquita Farris Potassium [Moles/Vol] 3.4 mmol/L Critically low 3.5-5.1 [facility] Comment on above: Performed By: #### C BC #### [facility] [address] [address] [address] Blanquita Farris Protein [Mass/Vol] 8.1 g/dL Normal 6.4-8.2 [facility] Comment on above: Performed By: #### C BC #### [facility] [address] [address] [address] Blanquita Farris Sodium [Moles/Vol] 137 mmol/L Normal 136-145 [facility] Comment on above: Performed By: #### C BC #### [facility] [address] [address] [address] Blanquita Farris Urea nitrogen [Mass/Vol] 9.0 mg/dL Normal 7.0-18.0 [facility] Comment on above: Performed By: #### C BC #### [facility] [address] [address] [address] Blanquita Farris Urea nitrogen/Creatinine [Mass ratio] 10.3 mg/mg Normal [facility] Comment on above: Performed By: #### C BC #### [facility] [address] [address] [address] Blanquita Farris PROTIMEon 03-15-2022 INR Coag (PPP) [Relative time] 1.15 {INR} Normal [facility] Comment on above: Performed By: #### C BC #### [facility] [address] [address] [address] Blanquita Farris INR GUIDELINES SEE BELOW Normal [facility] Comment on above: Result Comment: SOLANGE RED INR: 2.0 - 3.0 CONDITIONS NOT LISTED BELOW 2.5 - 3.5 FOR PROSTHETIC HEART VALVE REPLACEMENT 2.5 - 3.5 RECURRENT THROMBOSIS Performed By: #### C BC #### [facility] [address] [address] [address] Blanquita Farris PT Coag (PPP) [Time] 12.3 s Critically high 9.0-11.6 [facility] Comment on above: Performed By: #### C BC #### [facility] [address] [address] [address] Blanquita Farris TSHon 03-15-2022 TSH 0.342 uIU/mL Critically low 0.358-3.740 [facility] Comment on above: Performed By: #### C BC #### [facility] [address] [address] [address] Blanquita Farris Progress Noteson 02-16-2022 [facility] [employer] Authentication Interface Message Text EMERGENCY TRIAGE, TREAT AND TRANSPORT (ET3) DOCUMENTATION OF TELEHEALTH VISIT Date / Time: 02/16/2022 / 6:00 AM Name: Renetta Barbosa : 1960 SSN: (Not on file) EMS Agency: [facility] [] Verbal consent obtained [...] Completed by: Pedro Arechiga MD Normal [facility] US SINGLE QUAD RT UPPERon US [...] LEONEL MATA Date: 2021-11-25 17:56 Normal [facility] ACETONE SERUMon 05-17-2021 ACETONE Negative Normal NEGATIVE [facility] Comment on above: Performed By: #### A CETON #### [facility] [address] [place] [address] Dr. Blanquita Farris CBC W MANUAL DIFFon 05-17-20 21 ATYPICAL LYMPH # Normal [facility] Comment on above: Performed By: #### C BCMAN #### [facility] [address] [place] [address] Dr. Blanquita Farris ATYPICAL LYMPH % Normal [facility] Comment on above: Performed By: #### C BCMAN #### [facility] [address] [place] [address] Dr. Blanquita Farris BAND # Normal 0.0-0.3 [facility] Comment on above: Performed By: #### C BCMAN #### [facility] [address] [address] [address] Blanquita Farris BAND % Normal 0-5 [facility] Comment on above: Performed By: #### C BCMAN #### [facility] [address] [address] [address] Blanquita Farris BASOM # 0.00 103/ul Normal 0.00-0.10 [facility] Comment on above: Performed By: #### C BCMAN #### [facility] [address] [place] [address] Dr. Blanquita Farris BASOM % 0.0 % Critically low 0.2-2.0 [facility] Comment on above: Performed By: #### C BCDALI #### [facility] [address] [address] [address] Blanquita Farris BLAST # Normal [facility] Comment on above: Performed By: #### C BCDALI #### [facility] [address] [address] [address] Blanquita Farris BLAST % Normal [facility] Comment on above: Performed By: #### C BCDALI #### [facility] [address] [place] [address] Dr. Blanquita Farris CORRECTED WBC Normal 4.0-11.0 [facility] Comment on above: Performed By: #### C BRIGETTE #### [facility] [address] [place] [address] Dr. Blanquita Farris EOS # 0.00 103/ul Normal 0.00-0.70 [facility] Comment on above: Performed By: #### C BRIGETTE #### [facility] [address] [place] [address] Dr. Blanquita Farris EOS% 0.0 % Critically low 0.9-7.0 [facility] Comment on above: Performed By: #### C BRIGETTE #### [facility] [address] [place] [address] Dr. Blanquita Farris HCT 40.7 % Normal 36.0-48.0 [facility] Comment on above: Performed By: #### C BRIGETTE #### [facility] [address] [place] [address] Dr. Blanquita Farris HGB 12.9 g/dl Normal 12.0-16.0 [facility] Comment on above: Performed By: #### C BCADLI #### [facility] [address] [place] [address] Dr. Blanquita Farris LYMPHM # 0.63 103/ul Critically low 1.20-3.80 [facility] Comment on above: Performed By: #### C BRIGETTE #### [facility] [address] [place] [address] Dr. Blanquita Farris LYMPHM% 18.0 % Critically low 20.5-60.0 [facility] Comment on above: Performed By: #### C BRIGETTE #### [facility] [address] [place] [address] Dr. Blanquita Farris MCH 28.4 pg Normal 26.7-34.0 [facility] Comment on above: Performed By: #### C BRIGETTE #### [facility] [address] [place] [address] Dr. Blanquita Farris MCHC 31.7 g/dl Normal 29.9-35.2 [facility] Comment on above: Performed By: #### C BRIGETTE #### [facility] [address] [place] [address] Dr. Blanquita Farris MCV 89.5 fL Normal 81.0-99.0 [facility] Comment on above: Performed By: #### C BRIGETTE #### [facility] [address] [place] [address] Dr. Blanquita Farris METAMYELOCYTE # Normal [facility] Comment on above: Performed By: #### C BRIGETTE #### [facility] [address] [place] [address] Dr. Blanquita Farris METAMYELOCYTE % Normal [facility] Comment on above: Performed By: #### C BRIGETTE #### [facility] [address] [place] [address] Dr. Blanquita Farris MONOM# 0.14 103/ul Critically low 0.30-0.80 [facility] Comment on above: Performed By: #### C BRIGETTE #### [facility] [address] [place] [address] Dr. Blanquita Farris MONOM% 4.0 % Normal 1.7-12.0 [facility] Comment on above: Performed By: #### C BCDALI #### [facility] [address] [place] [address] Dr. Blanquita Farris MPV 12.1 fL Normal 9.5-13.5 [facility] Comment on above: Performed By: #### C BRIGETTE #### [facility] [address] [place] [address] Dr. Blanquita Farris MYELOCYTE # Normal [facility] Comment on above: Performed By: #### C BRIGETTE #### [facility] [address] [place] [address] Dr. Blanquita Farris MYELOCYTE % Normal [facility] Comment on above: Performed By: #### C BRIGETTE #### [facility] [address] [address] [address] Blanquita Farris NRBC Normal [facility] Comment on above: Performed By: #### C BRIGETTE #### [facility] [address] [address] [address] Blanquita Farris PLT 121 103/ul Critically low 150-450 [facility] Comment on above: Performed By: #### C BRIGETTE #### [facility] [address] [place] [address] Dr. Blanquita Farris RBC 4.55 106/ul Normal 4.20-5.40 [facility] Comment on above: Performed By: #### C BRIGETTE #### [facility] [address] [place] [address] Dr. Blanquita Farris RDW 15.8 % Critically high 11.0-15.0 [facility] Comment on above: Performed By: #### C BRIGETTE #### [facility] [address] [place] [address] Dr. Blanquita Farris SEG # 2.73 103/ul Normal 1.40-6.50 [facility] Comment on above: Performed By: #### C BRIGETTE #### [facility] [address] [place] [address] Dr. Blanquita Farris SEG % 78.0 % Critically high 43.0-75.0 [facility] Comment on above: Performed By: #### C BRIGETTE #### [facility] [address] [place] [address] Dr. Blanquita Farris WBC 3.5 103/ul Critically low 4.0-11.0 [facility] Comment on above: Performed By: #### C BRIGETTE #### [facility] [address] [place] [address] CSPINE WO CONon [...] KEYSHA NAIDU Date: 2021-05-17 09:10 Normal [facility] ER URINE PROFILEon 1 Bilirubin Ql (U) Negative Normal NEGATIVE [facility] Comment on above: Performed By: #### E RUR #### [facility] [address] [place] [address] Dr. Blanquita Farris Clarity (U) CLEAR Normal CLEAR [facility] Comment on above: Performed By: #### E RUR #### [facility] [address] [place] [address] Dr. Blanquita Farris Color (U) LT. YELLOW Normal YELLOW [facility] Comment on above: Performed By: #### E RUR #### [facility] [address] [place] [address] Dr. Blanquita Farris ERUAHD A micrscopic examination will be performed if indicated. Normal [facility] Comment on above: Performed By: #### E RUR #### [facility] [address] [place] [address] Dr. Blanquita Farris Glucose Ql (U) 100 mg/dl Abnormal NEGATIVE [facility] Comment on above: Performed By: #### E RUR #### [facility] [address] [place] [address] Dr. Blanquita Farris Hemoglobin Ql (U) Negative Normal NEGATIVE [facility] Comment on above: Performed By: #### E RUR #### [facility] [address] [place] [address] Dr. Blanquita Farris Ketones Ql (U) Negative Normal NEGATIVE [facility] Comment on above: Performed By: #### E RUR #### [facility] [address] [place] [address] Dr. Blanquita Farris LEUKOCYTES Negative Normal NEGATIVE [facility] Comment on above: Performed By: #### E RUR #### [facility] [address] [place] [address] Dr. Blanquita Farris Nitrite Ql (U) Negative Normal NEGATIVE [facility] Comment on above: Performed By: #### E RUR #### [facility] [address] [place] [address] Dr. Blanquita Farris pH (U) 7.0 [pH] Normal 5-9 [facility] Comment on above: Performed By: #### E RUR #### [facility] [address] [place] [address] Dr. Blanquita Farris SPEC GRAVITY 1.015 Normal 1.005-<=1.025 [facility] Comment on above: Performed By: #### E RUR #### [facility] [address] [place] [address] Dr. Blanquita Farris UA PROTEIN Negative Normal NEGATIVE/ TRACE [facility] Comment on above: Performed By: #### E RUR #### [facility] [address] [place] [address] Dr. Blanquita Farris UR MICRO IND NOT INDICATED Normal [facility] Comment on above: Performed By: #### E RUR #### [facility] [address] [place] [address] Dr. Blanquita Farris Urobilinogen Qn (U) 0.2 {Chevy'U}/dL Normal 0.2 - 1. 0 [facility] Comment on above: Performed By: #### E RUR #### [facility] [address] [place] [address] Dr. Blanquita Farris POINT OF CARE GLUCOSEon 04-23 Glucose [Mass/Vol] 234 mg/dL Critically high 74-106 T [facility] Comment on above: Performed By: #### P OCGLUC #### [facility] [address] [place] [address] Dr. Blanquita Farris PROF 14(COMP METB)on 021 Albumin [Mass/Vol] 3.5 g/dL Normal 3.5-5.0 [facility] Comment on above: Performed By: #### C MP #### [facility] [address] [place] [address] Dr. Blanquita Farris Albumin/Globulin [Mass ratio] 0.9 {ratio} Normal [facility] Comment on above: Performed By: #### C MP #### [facility] [address] [place] [address] Dr. Blanquita Farris ALP [Catalytic activity/Vol] 73 U/L Normal 38-126 [facility] Comment on above: Performed By: #### C MP #### [facility] [address] [place] [address] Dr. Blanquita Farris ALT [Catalytic activity/Vol] 39 U/L Normal 9-52 [facility] Comment on above: Performed By: #### C MP #### [facility] [address] [place] [address] Dr. Blanquita Farris Anion gap [Moles/Vol] 12.9 mmol/L Normal [facility] Comment on above: Performed By: #### C MP #### [facility] [address] [place] [address] Dr. Blanquita Farris AST [Catalytic activity/Vol] 33 U/L Normal 14-36 [facility] Comment on above: Performed By: #### C MP #### [facility] [address] [address] [address] Blanquita Farris Bilirubin [Mass/Vol] 0.3 mg/dL Normal 0.2-1.3 [facility] Comment on above: Performed By: #### C MP #### [facility] [address] [address] [address] Blanquita Farris Calcium [Mass/Vol] 8.9 mg/dL Normal 8.4-10.2 [facility] Comment on above: Performed By: #### C MP #### [facility] [address] [address] [address] Blanquita Farris Chloride [Moles/Vol] 105 mmol/L Normal 98-107 [facility] Comment on above: Performed By: #### C MP #### [facility] [address] [place] [address] Dr. Blanquita Farris CO2 [Moles/Vol] 28.3 mmol/L Normal 22.0-30.0 [facility] Comment on above: Performed By: #### C MP #### [facility] [address] [place] [address] Dr. Blanquita Farris Creatinine [Mass/Vol] 0.75 mg/dL Normal 0.52-1.04 [facility] Comment on above: Performed By: #### C MP #### [facility] [address] [place] [address] Dr. Blanquita Farris EGFR-AF CYPRIOT >60 Normal >=60 [facility] Comment on above: Performed By: #### C MP #### [facility] [address] [place] [address] Dr. Blanquita Farris EGFR-NON AF CYPRIOT >60 Normal >=60 [facility] Comment on above: Performed By: #### C MP #### [facility] [address] [place] [address] Dr. Blanquita Farris Globulin (S) [Mass/Vol] 3.8 g/dL Normal [facility] Comment on above: Performed By: #### C MP #### [facility] [address] [place] [address] Dr. Blanquita Farris Glucose [Mass/Vol] 173 mg/dL Critically high 74-106 T [facility] Comment on above: Performed By: #### C MP #### [facility] [address] [address] [address] Blanquita Farris Potassium [Moles/Vol] 3.2 mmol/L Critically low 3.4-5.0 [facility] Comment on above: Performed By: #### C MP #### [facility] [address] [address] [address] Blanquita Farris Protein [Mass/Vol] 7.3 g/dL Normal 6.1-8.2 [facility] Comment on above: Performed By: #### C MP #### [facility] [address] [place] [address] Dr. Blanquita Farris Sodium [Moles/Vol] 143 mmol/L Normal 137-145 [facility] Comment on above: Performed By: #### C MP #### [facility] [address] [place] [address] Dr. Blanquita Farris Urea nitrogen [Mass/Vol] 11.0 mg/dL Normal 7.0-17.0 [facility] Comment on above: Performed By: #### C MP #### [facility] [address] [place] [address] Dr. Blanquita Farris Urea nitrogen/Creatinine [Mass ratio] 14.7 mg/mg Normal [facility] Comment on above: Performed By: #### C MP #### [facility] [address] [place] [address] Dr. Blanquita Farris DIGITAL MAMMOGRAM SCREENING BILATERAL 11-22-2018 DIGITAL MAMMOGRAM SCREENING BILATERAL [facility] [address] [place] [id number] ======== Patient Name: RENETTA HERNANDEZ : 1960 Sex: F Age: Race: White Pt. Location: [facility] Patient Status: D Ordered Date: 10/11/2018 3:20:00 PM Completed Date: 11/22/2018 12:09 PM Requesting Provider: DES GLYNN Attending Provider: DES GLYNN Report Copy To: Signs & Symptoms: Z12.31 Encntr screen mammogram for malignant neoplasm of breast I10 History: [place] Previous study [facility] 07/16/17 Comments: , Additional imaging, if [...] recommended. Electronically signed by:Summer Cage. Transcribed by: [email or web address], User Resident: Electronically Signed by: SUMMER CAGE @ 11/24/2018 03:21 PM Normal [facility] Comment on above: Order Comment: , Add itional imaging, if necessary?: Y , Additional imaging, if necessary?: Y , , , Ordering Provider - DES GLYNN CNP , *VAGINITIS DNA PROBEon 10-11 *VAGINITIS DNA PROBE Clinical Report: (D) Specimen: GENITAL Collected: 10/11/2018 14:45 Status: Final Last Updated: 10/11/2018 19:16 MARQUITA (Final) Negative JUAN (Final) Negative TRICH (Final) Negative Normal [facility] Comment on above: Performed By: #### [id number] #### [facility] [address] FREE T4on 09-20-2018 Free T4 [Mass/Vol] 0.93 ng/dL Normal 0.71-1.85 [facility] Comment on above: Performed By: #### 3 [id number], [id number], [id number], [id number] #### [facility] [address] [place] [address], [facility] HEMOGLOBIN A1Con 09-20-2018 HbA1c (Bld) [Mass fraction] 269 mg/dL High 70-126 [facility] Comment on above: Performed By: #### 4 [id number] #### [facility] [address] [place] [address], [facility] HbA1c (Bld) [Mass fraction] 11.0 % High 4.0-6.0 [facility] Comment on above: Performed By: #### 4 [id number] #### [facility] [address] [place] [address], [facility] LIPID PROFILEon 09-20-2018 Cholesterol [Mass/Vol] 164 mg/dL Normal 120-200 [facility] Comment on above: Result Comment: CHOL ESTEROL REFERENCE RANGE: 20 YEARS AND OLDER CARDIOVASCULAR RISK Less than 200 mg/dl Low Risk 200 to 239 mg/dl Borderline Risk 240 mg/dl and greater High Risk Performed By: #### 3 1522, 51421, 47598, 57964 #### [facility] [address] [place] [address], [place] Cholesterol in HDL [Mass/Vol] 30 mg/dL Normal 23-92 [facility] Comment on above: Result Comment: Slig ht variation in normal range could be due to gender and/or age. HDL CHOLESTEROL REFERENCE RANGE: 20 years and older Cardiovascular Risk > or =60 mg/dL Desirable 40 TO 59 mg/dL Low Risk <40 mg/dL High Risk Performed By: #### 3 1522, 41145, 16017, 16737 #### [facility] [address] [place] [address], [place] Cholesterol in LDL [Mass/Vol] 91 mg/dL Normal 0-130 [facility] Comment on above: Result Comment: LDL IS A CALCULATION LDL IS ONLY VALID IF THE TRIG IS LESS THAN 400. Performed By: #### 3 1522, 58897, 75510, 94479 #### [facility] [address] [place] [address], [place] Cholesterol.total/C holesterol in HDL [Mass ratio] 5.5 {ratio} High .0-4.5 [facility] Comment on above: Performed By: #### 3 1522, 57290, 76856, 04782 #### [facility] [address] [place] [address], [place] NON-HDL CHOLESTEROL 134 mg/dL Normal [facility] Comment on above: Performed By: #### 3 1522, 42307, 80053, 61436 #### [facility] [address] [place] [address], [place] Triglyceride [Mass/Vol] 215 mg/dL High 40-149 [facility] Comment on above: Result Comment: TRIG LYCERIDE REFERENCE RANGE: 20 YEARS AND OLDER CARDIOVASCULAR RISK LESS THAN 150 mg/dl LOW RISK 150 TO 199 mg/dl BORDERLINE RISK 200 mg/dl AND GREATER HIGH RISK Performed By: #### 3 1522, 72455, 84108, 81713 #### [facility] [address] [place] [address], [facility] VLDL CHOL 43 mg/dL High 0-40 [facility] Comment on above: Performed By: #### 3 1522, 54903, 12992, 10679 #### [facility] [address] [place] [address], [place] MICROALBUMIN URINE RANDOMon 09-20-2018 Creatinine [Mass/Vol] 148.0 mg/dL Normal [facility] Comment on above: Result Comment: Ther e are no established reference values for random urine specimens Performed By: #### 3 0067 #### [facility] [address] [place] [address], [facility] MICROALBUMIN <1.0 Normal [facility] Comment on above: Performed By: #### 3 0067 #### [facility] [address] [place] [address], [facility] MICROALBUMIN/CREATI NINE RATIO 'UNABLE TO CALC Normal 0.0-30.0 [facility] Comment on above: Performed By: #### 3 0067 #### [facility] [address] [place] [address], [facility] TSH3on 09-20-2018 TSH 3RD GENERATION 1.53 uIU/mL Normal 0.34-5.60 [facility] Comment on above: Performed By: #### 3 1522, 54968, 53852, 02235 #### [facility] [address] [place] [address], [facility] VITAMIN D 25-HYDROXYon 09-20 VITAMIN D 25-OH 33.8 ng/mL Normal 30.0-80.0 [facility] Comment on above: Result Comment: >80. 0 Toxicity possible Performed By: #### 3 1522, 83441, 13800, 40254 #### [address] [address], [facility] US HEPATIC ECHOGRAMon 2018 US HEPATIC ECHOGRAM [facility] Department of Radiology [address] [facility] [place] [address] ======== Patient Name: RENETTA HERNANDEZ : 1960 Sex: F Age: Race: White Pt. Location: [facility] Patient Status: O Ordered Date: 06/19/2018 3:35:00 PM Completed Date: 08/22/2018 10:39 AM Requesting Provider: ANGELIQUE BENNETT Attending Provider: ANGLEIQUE BENNETT Report Copy To: FAINA CHAPMAN Signs & Symptoms: K74.60 Unspecified cirrhosis of liver I10 History: [place] Comments: , , , Ordering Provider - [...] signed by:Russell De La Rosa. Transcribed by: [email or web address], User Resident: Electronically Signed by: RUSSELL DE LA ROSA @ 08/22/2018 12:53 PM Normal [facility] Comment on above: Order Comment: , , = ========= , Ordering Provider - ANGELIQUE BENNETT MD , US ABDOMINAL FOR ASCITES JIMENEZ ITEDon 06-28-2018 US ABDOMINAL FOR ASCITES LIMITED [facility] Department of Radiology [address] [place] [id number] ======== Patient Name: RENETTA HERNANDEZ : 1960 Sex: F Age: Race: White Pt. Location: [facility] Patient Status: O Ordered Date: 06/19/2018 3:35:00 [...] signed by:Russell De La Rosa. Transcribed by: [email or web address], User Resident: LAST FRANCO Electronically Signed by: RUSSELL DE LA ROSA @ 06/28/2018 12:53 PM I personally read this/these film(s) with this resident Normal [facility] Comment on above: Order Comment: , , = ========= , Ordering Provider - ANGELIQUE BENNETT MD , COMP METABOLIC PANELon 06-19 Albumin [Mass/Vol] 4.1 g/dL Normal 3.5-5.7 [facility] Comment on above: Performed By: #### 0 0121 #### [facility] [address] [place] [address], [facility] ALKALINE PHOSPH 67 IU/L Normal 34-104 [facility] Comment on above: Performed By: #### 0 0121 #### [facility] [address] [place] [address], [place] ALT [Catalytic activity/Vol] 21 U/L Normal 7-52 [facility] Comment on above: Performed By: #### 0 0121 #### [facility] [address] [place] [address], [place] AST [Catalytic activity/Vol] 22 U/L Normal 13-39 [facility] Comment on above: Performed By: #### 0 0121 #### [facility] [address] [place] [address], [place] Bilirubin [Mass/Vol] 0.5 mg/dL Normal 0.3-1.0 [facility] Comment on above: Performed By: #### 0 0121 #### [facility] [address] [place] [address], [place] Calcium [Mass/Vol] 9.7 mg/dL Normal 8.6-10.3 [facility] Comment on above: Performed By: #### 0 0121 #### [facility] [address] [place] [address], [place] Chloride [Moles/Vol] 103 mmol/L Normal 98-107 [facility] Comment on above: Performed By: #### 0 0121 #### [facility] [address] [place] [address], [place] CO2 [Moles/Vol] 28 mmol/L Normal 21-31 [facility] Comment on above: Performed By: #### 0 0121 #### [facility] [address] [place] [address], [place] Creatinine [Mass/Vol] 0.89 mg/dL Normal 0.60-1.20 [facility] Comment on above: Performed By: #### 0 0121 #### [facility] [address] [place] [address], [place] GFR/1.73 sq M predicted among blacks MDRD (S/P/Bld) [Vol rate/Area] mL/min/{1.73_m2} Normal >60 [facility] Comment on above: Performed By: #### 0 0121 #### [facility] [address] [place] [address], [place] GFR/1.73 sq M predicted among non-blacks MDRD (S/P/Bld) [Vol rate/Area] mL/min/{1.73_m2} Normal >60 [facility] Comment on above: Performed By: #### 0 0121 #### [facility] [address] [place] [address], [facility] Glucose [Mass/Vol] 175 mg/dL High 70-100 [facility] Comment on above: Performed By: #### 0 0121 #### [facility] [address] [place] [address], [facility] Potassium [Moles/Vol] 3.8 mmol/L Normal 3.5-5.1 [facility] Comment on above: Performed By: #### 0 0121 #### [facility] [address] [facility] [place] [address], [facility] Protein [Mass/Vol] 7.5 g/dL Normal 6.0-8.3 [facility] Comment on above: Performed By: #### 0 0121 #### [facility] [address] [place] [place] [address], [facility] Sodium [Moles/Vol] 139 mmol/L Normal 136-145 [facility] Comment on above: Performed By: #### 0 0121 #### [facility] [address] [place] [place] [address], [facility] Urea nitrogen [Mass/Vol] 14 mg/dL Normal 7-25 [facility] Comment on above: Performed By: #### 0 0121 #### [facility] [address] PROTHROMBIN TIMEon 9 INR Coag (PPP) [Relative time] 1.17 {INR} High 0.91-1.16 [facility] Comment on above: Result Comment: ACCC P [...] 1995;[id number]. Performed By: #### 5 6101 #### [facility] [address] [facility]. [address] PT Coag (PPP) [Time] 14.9 s High 12.3-14.8 [facility] Comment on above: Result Comment: ALL RESULTS MUST BE INTERPRETED WITH RESPECT TO BLOOD DRAWING ARTIFACT OR DILUTION ERROR OF ANTICOAGULANT AT THE TIME OF SAMPLING. Performed By: #### 5 6101 #### [facility] [address] [facility]. [address] Vital Signs Date Time Vital Sign Value Performing Clinician Facility 10-30-2024 14:20-0400 Body height 157.5 cm Ze Solis MD Work Phone: [facility] 10-30-2024 14:20-0400 Body mass index (BMI) [Ratio] 34.02 kg/m2 Ze Solis MD Work Phone: [facility] 10-30-2024 14:20-0400 Body weight 84.37 kg Ze Solis MD Work Phone: [facility] 10-30-2024 14:20-0400 Diastolic blood pressure 80 mm[Hg] Ze Solis MD Work Phone: [facility] 10-30-2024 14:20-0400 Heart rate 99 /min Ze Solis MD Work Phone: [facility] 10-30-2024 14:20-0400 Respiratory rate 20 /min Ze Solis MD Work Phone: [facility] 10-30-2024 14:20-0400 SaO2% (BldA) [Mass fraction] 96 % Ze Solis MD Work Phone: [facility] 10-30-2024 14:20-0400 Systolic blood pressure 130 mm[Hg] Ze Solis MD Work Phone: [facility] 09-10-2024 15:48-0400 Body mass index (BMI) [Ratio] 33.07 kg/m2 Sabrina Cox SALES OFFICE ASSISTANT Work Phone: [facility] 09-10-2024 15:48-0400 Body weight 82.01 kg Sabrina Cox SALES OFFICE ASSISTANT Work Phone: [facility] 09-10-2024 15:48-0400 Diastolic blood pressure 92 mm[Hg] Sabrina Cox SALES OFFICE ASSISTANT Work Phone: [facility] 09-10-2024 15:48-0400 Heart rate 91 /min Sabrina Cox SALES OFFICE ASSISTANT Work Phone: [facility] 09-10-2024 15:48-0400 SaO2% (BldA) [Mass fraction] 98 % Sabrina Cox SALES OFFICE ASSISTANT Work Phone: [facility] 09-10-2024 15:48-0400 Systolic blood pressure 160 mm[Hg] Sabrina Cox SALES OFFICE ASSISTANT Work Phone: [facility] 08-30-2024 13:05-0400 Body mass index (BMI) [Ratio] 32.01 kg/m2 Tj Dutton MD Work Phone: [facility] 08-30-2024 13:05-0400 Body weight 79.38 kg Tj Dutton MD Work Phone: [facility] 08-30-2024 13:05-0400 Diastolic blood pressure 82 mm[Hg] Tj Dutton MD Work Phone: [facility] 08-30-2024 13:05-0400 Systolic blood pressure 142 mm[Hg] Tj Dutton MD Work Phone: [facility] 07-30-2024 15:48-0400 Body height 157.5 cm Gi Painterr SALES OFFICE ASSISTANT Work Phone: [facility] 07-30-2024 15:48-0400 Body mass index (BMI) [Ratio] 32.01 kg/m2 Gi Gillmor SALES OFFICE ASSISTANT Work Phone: [facility] 07-30-2024 15:48-0400 Body weight 79.38 kg Gi Lindseymor SALES OFFICE ASSISTANT Work Phone: [facility] 07-30-2024 15:48-0400 Diastolic blood pressure 80 mm[Hg] Gi Lindseymor SALES OFFICE ASSISTANT Work Phone: [facility] 07-30-2024 15:48-0400 Heart rate 90 /min Gi Rosaliamor SALES OFFICE ASSISTANT Work Phone: [facility] 07-30-2024 15:48-0400 SaO2% (BldA) [Mass fraction] 94 % Gi Rosaliamor SALES OFFICE ASSISTANT Work Phone: [facility] 07-30-2024 15:48-0400 Systolic blood pressure 128 mm[Hg] Gi Lindseymor SALES OFFICE ASSISTANT Work Phone: [facility] 07-02-2024 13:59-0500 Body height 157.5 cm Ze Solis MD Work Phone: [facility] 07-02-2024 13:59-0500 Body mass index (BMI) [Ratio] 32.37 kg/m2 Ze Solis MD Work Phone: [facility] 07-02-2024 13:59-0500 Body weight 80.29 kg Ze Solis MD Work Phone: [facility] 07-02-2024 13:59-0500 Diastolic blood pressure 84 mm[Hg] Ze Solis MD Work Phone: [facility] 07-02-2024 13:59-0500 Heart rate 96 /min Ze Solis MD Work Phone: [facility] 07-02-2024 13:59-0500 Respiratory rate 18 /min Ze Solis MD Work Phone: [facility] 07-02-2024 13:59-0500 SaO2% (BldA) [Mass fraction] 97 % Ze Solis MD Work Phone: [facility] 07-02-2024 13:59-0500 Systolic blood pressure 140 mm[Hg] Ze Solis MD Work Phone: [facility] 06-28-2024 14:09-0500 Body mass index (BMI) [Ratio] 32.05 kg/m2 Andre Funes MD Work Phone: [facility] 06-28-2024 14:09-0500 Body temperature 97.5 [degF] Andre Funes MD Work Phone: [facility] 06-28-2024 14:09-0500 Body weight 79.5 kg Andre Funes MD Work Phone: [facility] 06-28-2024 14:09-0500 Diastolic blood pressure 78 mm[Hg] Andre Funes MD Work Phone: [facility] 06-28-2024 14:09-0500 Heart rate 86 /min Andre Funes MD Work Phone: [facility] 06-28-2024 14:09-0500 Respiratory rate 16 /min Andre Funes MD Work Phone: [facility] 06-28-2024 14:09-0500 SaO2% (BldA) [Mass fraction] 99 % Andre Funes MD Work Phone: [facility] 06-28-2024 14:09-0500 Systolic blood pressure 143 mm[Hg] Andre Funes MD Work Phone: [facility] 01-17-2025 11:48-0500 Blood Pressure Location NGA WILK[facility] 06-08-2024 11:48-0500 Diastolic blood pressure 76 mm[Hg] NGA WILKINS [facility] 06-08-2024 11:48-0500 Heart rate 76 /min NGA WILKINS [facility] 06-08-2024 11:48-0500 Systolic blood pressure 136 mm[Hg] [facility] 05-29-2024 14:47-0500 Body mass index (BMI) [Ratio] 31.09 kg/m2 Tj Dutton MD Work Phone: [facility] 05-29-2024 14:47-0500 Body weight 77.11 kg Tj Dutton MD Work Phone: [facility] 05-29-2024 14:47-0500 Diastolic blood pressure 82 mm[Hg] Tj Dutton MD Work Phone: [facility] 05-29-2024 14:47-0500 Systolic blood pressure 130 mm[Hg] Tj Dutton MD Work Phone: [facility] 05-28-2024 14:54-0500 Body mass index (BMI) [Ratio] 32.56 kg/m2 Rajat Aguilar SALES OFFICE ASSISTANT Work Phone: [facility] 05-28-2024 14:54-0500 Body weight 80.74 kg Rajat Aguilar SALES OFFICE ASSISTANT Work Phone: [facility] 05-28-2024 14:54-0500 Diastolic blood pressure 87 mm[Hg] Rajat Aguilar SALES OFFICE ASSISTANT Work Phone: [facility] 05-28-2024 14:54-0500 Heart rate 69 /min Rajat Aguilar SALES OFFICE ASSISTANT Work Phone: [facility] 05-28-2024 14:54-0500 Systolic blood pressure 144 mm[Hg] Rajat Sergio KELLEY Work Phone: [facility] 03-05-2024 14:30-0400 Body height 157.5 cm Ze Solis MD Work Phone: [facility] 03-05-2024 14:30-0400 Body mass index (BMI) [Ratio] 35.12 kg/m2 Ze Solis MD Work Phone: [facility] 03-05-2024 14:30-0400 Body weight 87.09 kg Ze Solis MD Work Phone: [facility] 03-05-2024 14:30-0400 Diastolic blood pressure 72 mm[Hg] Ze Solis MD Work Phone: [facility] 03-05-2024 14:30-0400 Heart rate 77 /min Ze Solis MD Work Phone: [facility] 03-05-2024 14:30-0400 Respiratory rate 18 /min Ze Solis MD Work Phone: [facility] 03-05-2024 14:30-0400 Systolic blood pressure 126 mm[Hg] Ze Solis MD Work Phone: [facility] 02-29-2024 09:25-0400 Blood Pressure Location [facility] 02-29-2024 09:25-0400 Diastolic blood pressure 87 mm[Hg] NGA JUANITO [facility] 02-29-2024 09:25-0400 Heart rate 87 /min [facility] 02-29-2024 09:25-0400 Systolic blood pressure 150 mm[Hg] N[facility] 02-14-2024 15:53-0400 Diastolic blood pressure 78 mm[Hg] Mary Alejandro DO Work Phone: [facility] 02-14-2024 15:53-0400 Heart rate 95 /min Mary Alejandro DO Work Phone: [facility] 02-14-2024 15:53-0400 SaO2% (BldA) [Mass fraction] 96 % Mary Alejandro DO Work Phone: [facility] 02-14-2024 15:53-0400 Systolic blood pressure 126 mm[Hg] Mary Alejandro DO Work Phone: [facility] 01-30-2024 14:57-0400 Body mass index (BMI) [Ratio] 35.12 kg/m2 Rajat Aguilar NP Work Phone: [facility] 01-30-2024 14:57-0400 Body weight 87.09 kg Rajat Aguilar NP Work Phone: [facility] 01-02-2024 11:52-0400 Blood Pressure Location [facility] 01-02-2024 11:52-0400 Diastolic blood pressure 82 mm[Hg] NGA JUAN[facility] 01-02-2024 11:52-0400 Heart rate 78 /min NGA JUANIT[facility] 01-02-2024 11:52-0400 Systolic blood pressure 130 mm[Hg] NGA JUAN[facility] 12-05-2023 11:55-0400 Diastolic blood pressure 54 mm[Hg] NGA J[facility] 12-05-2023 11:55-0400 Mean blood pressure 77 mm[Hg] NGA JUANITO [facility] 12-05-2023 11:55-0400 Systolic blood pressure 122 mm[Hg] NGA JUANITO [facility] 12-05-2023 11:44-0400 Blood Pressure Location NGA [facility] 12-05-2023 11:44-0400 Diastolic blood pressure 107 mm[Hg] NGA JUANITO [facility] 12-05-2023 11:44-0400 Heart rate 95 /min NGA JUAN[facility]O [facility] 12-05-2023 11:44-0400 Systolic blood pressure 128 mm[Hg] NGA JUANITO [facility] 11-28-2023 11:43-0400 Blood Pressure Location NGA [facility] 11-28-2023 11:43-0400 Diastolic blood pressure 67 mm[Hg] NGA JUANITO [facility] 11-28-2023 11:43-0400 Heart rate 95 /min NGA JUANITO [facility] 11-28-2023 11:43-0400 Systolic blood pressure 148 mm[Hg] NGA UJANITO [facility] 11-21-2023 11:37-0400 Blood Pressure Location NGA [facility] 11-21-2023 11:37-0400 Body temperature 97.88 [degF] NGA JUANITO [facility] 11-21-2023 11:37-0400 Diastolic blood pressure 11 mm[Hg] NGA JUANITO [facility] 11-21-2023 11:37-0400 Heart rate 74 /min NGA JUANITO [facility] 11-21-2023 11:37-0400 Respiratory rate 15 /min NGA [facility]O [facility] 11-21-2023 11:37-0400 Systolic blood pressure 131 mm[Hg] NGA JUANITO [facility] 11-14-2023 11:36-0400 Blood Pressure Location NGA J[facility] 11-14-2023 11:36-0400 Body temperature 97.7 [degF] [facility] 11-14-2023 11:36-0400 Diastolic blood pressure 88 mm[Hg] NGA J[facility] 11-14-2023 11:36-0400 Heart rate 78 /min [facility] 11-14-2023 11:36-0400 Systolic blood pressure 150 mm[Hg] NGA JU[facility]ITO [facility] 06-23-2023 13:50-0500 Body height 157.5 cm Andre Funes MD Work Phone: [facility] 06-23-2023 13:50-0500 Body temperature 97.59 [degF] Andre Funes MD Work Phone: [facility] 06-23-2023 13:50-0500 Body weight 91.1 kg Andre Funes MD Work Phone: [facility] 06-23-2023 13:50-0500 Diastolic blood pressure 93 mm[Hg] Andre Funes MD Work Phone: [facility] 06-23-2023 13:50-0500 Heart rate 107 /min Andre Funes MD Work Phone: [facility] 06-23-2023 13:50-0500 Respiratory rate 18 /min Andre Funes MD Work Phone: [facility] 06-23-2023 13:50-0500 SaO2% (BldA) [Mass fraction] 94 % Andre Funes MD Work Phone: [facility] 06-23-2023 13:50-0500 Systolic blood pressure 149 mm[Hg] Andre Funes MD Work Phone: [facility] 05-03-2023 10:34-0500 Blood Pressure Location N[facility] 05-03-2023 10:34-0500 Diastolic blood pressure 88 mm[Hg] NGA WILKINS [facility] 05-03-2023 10:34-0500 Heart rate 91 /min NGA WILKINS [facility] 05-03-2023 10:34-0500 Respiratory rate 16 /min NGA WILKINS [facility] 05-03-2023 10:34-0500 Systolic blood pressure 138 mm[Hg] NGA WILK[facility] 04-05-2023 14:15-0500 Body height 157.48 cm Rodger Davila Other [facility] Other 04-05-2023 14:15-0500 Body mass index (BMI) [Ratio] 37.31 kg/m2 Rodger Davila Other [facility] Other 04-05-2023 14:15-0500 Body weight 92.53 kg Rodger Davila Other [facility] Other 04-05-2023 14:15-0500 Diastolic blood pressure 82 mm[Hg] Rodger Davila Other [facility] Other 04-05-2023 14:15-0500 Systolic blood pressure 143 mm[Hg] Rodger Davila Other [facility] Other 09-28-2022 14:45-0400 Body height 157.48 cm Rodger Davila Other [facility] Other 09-28-2022 14:45-0400 Body mass index (BMI) [Ratio] 37.86 kg/m2 Rodger Lola Other [facility] Other 09-28-2022 14:45-0400 Body weight 93.9 kg Rodger Davila Other [facility] Other 09-28-2022 14:45-0400 Diastolic blood pressure 77 mm[Hg] Rodger Davila Other [facility] Other 09-28-2022 14:45-0400 SaO2% (BldA) [Mass fraction] 95 % Rodger Lola Other [facility] Other 09-28-2022 14:45-0400 Systolic blood pressure 156 mm[Hg] Rodger Hardenack Other [facility] Other 06-25-2022 13:45-0500 Diastolic blood pressure 82 mm[Hg] Andre Funes MD Work Phone: [facility] 06-25-2022 13:45-0500 Systolic blood pressure 152 mm[Hg] Andre Funes MD Work Phone: [facility] 06-25-2022 13:44-0500 Body height 157.5 cm Andre Funes MD Work Phone: [facility] 06-25-2022 13:44-0500 Body temperature 97.5 [degF] Andre Funes MD Work Phone: [facility] 06-25-2022 13:44-0500 Body weight 95.17 kg Andre Funes MD Work Phone: [facility] 06-25-2022 13:44-0500 Heart rate 88 /min Andre Funes MD Work Phone: [facility] 06-25-2022 13:44-0500 Respiratory rate 16 /min Andre Funes MD Work Phone: [facility] 06-25-2022 13:44-0500 SaO2% (BldA) [Mass fraction] 97 % Andre Funes MD Work Phone: [facility] 06-22-2022 14:30-0500 Body height 157.48 cm Rodger Davila Other [facility] Other 06-22-2022 14:30-0500 Body mass index (BMI) [Ratio] 37.86 kg/m2 Rodger Davila Other [facility] Other 06-22-2022 14:30-0500 Body weight 93.9 kg Rodger Davila Other [facility] Other 06-22-2022 14:30-0500 Diastolic blood pressure 80 mm[Hg] Rodger Davila Other [facility] Other 06-22-2022 14:30-0500 Systolic blood pressure 130 mm[Hg] Rodger Davila Other [facility] Other 03-04-2022 15:45-0400 Body height 157.48 cm Rodger Davila Other [facility] Other 03-04-2022 15:45-0400 Body mass index (BMI) [Ratio] 38.59 kg/m2 Rodger Davila Other [facility] Other 03-04-2022 15:45-0400 Body weight 95.71 kg Rodger Davila Other [employer] Other 12-17-2021 13:02-0400 Body height 157.5 cm Andre Funes MD Work Phone: [facility] 12-17-2021 13:02-0400 Body temperature 97.59 [degF] Andre Funes MD Work Phone: [facility] 12-17-2021 13:02-0400 Body weight 97.98 kg Andre Funes MD Work Phone: [facility] 12-17-2021 13:02-0400 Diastolic blood pressure 83 mm[Hg] Andre Funes MD Work Phone: [facility] 12-17-2021 13:02-0400 Heart rate 92 /min Andre Funes MD Work Phone: [facility] 12-17-2021 13:02-0400 Respiratory rate 16 /min Andre Funes MD Work Phone: [facility] 12-17-2021 13:02-0400 SaO2% (BldA) [Mass fraction] 95 % Andre Funes MD Work Phone: [facility] 12-17-2021 13:02-0400 Systolic blood pressure 145 mm[Hg] Andre Funes MD Work Phone: [facility] Encounters Encounter Date Encounter Type Care Provider Facility Start: 10-25-2025 ambulatory OSMAN WILKINS Facility:[facility] Start: 10-30-2024 End: 10-30-2024 ambulatory ZE SOLIS Not Available Start: 10-30-2024 End: 10-30-2024 Bamboo flowsheet Ze Solis MD Work Phone: [facility] Start: 10-30-2024 End: 10-30-2024 Bamnathano flowsheet Ze Solis MD Work Phone: [facility] Start: 10-30-2024 End: 10-30-2024 Office outpatient visit 40 minutes Ze Solis MD Work Phone: [facility] Comment on above: Insulin long-term us e ([facility]) (Primary Dx); Type 2 diabetes mellitus with hyperglycemia, unspecified whether penitentiary insulin use ([facility]); Vitamin D deficiency; Encounter for dietary consultation; High risk medication use; Primary hypertension ([facility]); Hypoglycemia; Microalbuminuria; Type 2 diabetes mellitus with hyperglycemia ([facility]); Acquired hypothyroidism ([facility]) Start: 10-25-2024 End: 10-25-2024 Clinisync Result Encounter Tj Dutton MD Work Phone: [facility] External Department Unsolicited Start: 10-25-2024 End: 10-25-2024 Clinisync Result Encounter Tj Dutton MD Work Phone: [facility] External Department Unsolicited Start: 10-19-2024 End: 10-19-2024 ambulatory OSMAN WILKINS Facility: [place] Start: 10-19-2024 End: 10-19-2024 Patient encounter procedure [facility]IL[facility]INS [facility] Start: 09-10-2024 End: 09-10-2024 Office outpatient visit 15 minutes Sabrina Pintooll SALES OFFICE ASSISTANT Work Phone: [facility] Comment on above: Nonintractable episo dic headache, unspecified headache type (Primary Dx); Essential tremor; Cognitive dysfunction; Anxiety; CASSIE (obstructive sleep apnea); Imbalance Start: 09-10-2024 End: 09-10-2024 ambulatory SABRINA COX Not Available Start: 09-10-2024 End: 09-10-2024 Bamboo flowsheet Sabrina Cox SALES OFFICE ASSISTANT Work Phone: [facility] Start: 09-10-2024 End: 09-10-2024 Bamboo flowsheet Sabrina Cox SALES OFFICE ASSISTANT Work Phone: [facility] Start: 09-03-2024 End: 09-03-2024 ambulatory [facility] Start: 08-30-2024 End: 08-30-2024 Bamboo flowsheet Tj Dutton MD Work Phone: [facility] Start: 08-30-2024 End: 08-30-2024 Bamboo flowsheet Tj Dutton MD Work Phone: [facility] Start: 08-30-2024 End: 08-30-2024 Postop follow up visit related to original px Tj Dutton MD Work Phone: [facility] Comment on above: LGSIL of cervix of u ndetermined significance (Primary Dx); HPV (human papilloma virus) infection; Surgery follow-up Start: 08-30-2024 End: 08-30-2024 ambulatory TJ DUTTON Not Available Start: 08-16-2024 End: 08-16-2024 ambulatory Tj Dutton [facility] Work Phone: Start: 08-16-2024 End: 08-16-2024 Departed Referred Tj Dutton MD Work Phone: [facility] [place] Work Phone: Start: 07-30-2024 End: 07-30-2024 ambulatory GI ARRIAGA Not Available Start: 07-30-2024 End: 07-30-2024 Office outpatient visit 25 minutes Gi Arriaga SALES OFFICE ASSISTANT Work Phone: [facility] Comment on above: CASSIE (obstructive sle ep apnea) (Primary Dx); Insomnia, unspecified type Start: 07-30-2024 End: 07-30-2024 Bamboo flowsheet Gi Arriaga SALES OFFICE ASSISTANT Work Phone: [facility] Start: 07-30-2024 End: 07-30-2024 Bamboo flowsheet Gi Arriaga SALES OFFICE ASSISTANT Work Phone: [facility] Start: 07-02-2024 End: 07-02-2024 Bamboo flowsheet Ze Solis MD Work Phone: [facility] Start: 07-02-2024 End: 07-02-2024 Bamboo flowsheet Ze Solis MD Work Phone: [facility] Start: 07-02-2024 End: 07-02-2024 Office outpatient visit 25 minutes Ze Solis MD Work Phone: [facility] Comment on above: Type 2 diabetes mauri itus with hyperglycemia, with long-term current use of insulin (CMS/HCC) (Primary Dx); Insulin long-term use (CMS/HCC); Vitamin D deficiency; Encounter for dietary consultation; High risk medication use; Primary hypertension (CMS/HCC); Hypoglycemia; Microalbuminuria; 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CMS/HCC); Class 1 obesity due to excess calories with serious comorbidity and body mass index (BMI) of 32.0 to 32.9 in adult Start: 07-02-2024 End: 07-03-2024 Telephone encounter Ze Solis MD Work Phone: 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 Comment on above: Medication Problem Start: 06-12-2024 End: 06-12-2024 Social Work Jasmine NOE Work Phone: [facility] Comment on above: SAMUEL (generalized anx iety disorder) (CMS/HCC) Start: 06-08-2024 End: 06-08-2024 ambulatory OSMAN WILKINS Facility:[facility] Start: 06-08-2024 End: 06-08-2024 Patient encounter procedure NGA WILKINS [facility] Start: 05-29-2024 End: 05-29-2024 ambulatory TJ DUTTON Not Available Start: 05-29-2024 End: 05-29-2024 Office outpatient visit 25 minutes Tj Dutton MD [facility]: [facility] Comment on above: LGSIL of cervix of u ndetermined significance (Primary Dx); HPV (human papilloma virus) infection; Cervical cancer screening; Screening for HPV (human papillomavirus); Other screening mammogram Start: 05-29-2024 End: 05-29-2024 Courtney Dutton MD Work Phone: [facility] Start: 05-29-2024 End: 05-29-2024 Courtney Dutton MD Work Phone: [facility] Start: 05-28-2024 End: 05-28-2024 ambulatory RAJAT AGUILAR Not Available Start: 05-28-2024 End: 05-28-2024 Office outpatient visit 15 minutes Rajat Aguilar NP Work Phone: [facility] [place] [facility] [address] Comment on above: Essential tremor (Pr imary Dx); Cognitive dysfunction; Anxiety; Imbalance; Paresthesias Start: 05-28-2024 End: 05-28-2024 Bamboo [employer] Mediaremigio Aguilar SALES OFFICE ASSISTANT Work Phone: [facility] [place] [address] Start: 05-28-2024 End: 05-28-2024 Bamboo VMG Mediaheet Rajat Aguilar SALES OFFICE ASSISTANT Work Phone: [facility] [place] [address] Start: 04-26-2024 End: 04-26-2024 Telephone encounter Luz Hamilton RN Hematology/Oncology Comment on above: US spleen order Start: 04-23-2024 End: 04-23-2024 Telephone encounter Luz Hamilton RN Hematology/Oncology Comment on above: Start: 04-04-2024 End: 04-04-2024 Bamboo flowsheet Jasmine Huynhion [employer] Work Phone: [facility] Start: 04-04-2024 End: 04-04-2024 Bamboo flowsheet Jasmine Peres Didion [employer] Work Phone: [facility] Start: 04-04-2024 End: 04-04-2024 Social Work Jasmine Peres Didion [employer] Work Phone: [facility] Comment on above: SAMUEL (generalized anx iety disorder) (CMS/HCC) Start: 03-05-2024 End: 03-05-2024 Office outpatient visit 40 minutes Ze Solis MD Work Phone: [facility] Comment on above: Type 2 diabetes mauri itus with hyperglycemia, with long-term current use of insulin ([facility]) (Primary Dx); Insulin long-term use ([facility]); Vitamin D deficiency; Encounter for dietary consultation; High risk medication use; Primary hypertension ([facility]); Hypoglycemia; Class 2 severe obesity due to excess calories with serious comorbidity and body mass index (BMI) of 35.0 to 35.9 in adult ([facility]); Microalbuminuria; 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[facility]) Start: 03-05-2024 End: 03-05-2024 ambulatory ZE SOLIS Not Available Start: 03-01-2024 End: 03-01-2024 Face++heet Jasmine Peres Didion [employer] Work Phone: [facility] Start: 03-01-2024 End: 03-01-2024 Bufys Jasmine Peres Didion [employer] Work Phone: [facility] Start: 03-01-2024 End: 03-01-2024 Social Work Jasmine Peres Didion [employer] Work Phone: [facility] Comment on above: SAMUEL (generalized anx iety disorder) ([facility]) Start: 02-29-2024 End: 02-29-2024 ambulatory FRANCES-Larisa WILKINS Facility:[facility] Start: 02-29-2024 End: 02-29-2024 Patient encounter procedure NGA WILKINS [facility] Start: 02-14-2024 End: 02-14-2024 Office outpatient visit 25 minutes Mary Allen DO Work Phone: [facility] [place] [facility] Comment on above: Primary insomnia (Pr imary Dx); CASSIE (obstructive sleep apnea); Hypersomnia; Obesity due to excess calories, unspecified classification, unspecified whether serious comorbidity present Start: 02-14-2024 End: 02-14-2024 ambulatory MARY ALLEN Not Available Start: 02-14-2024 End: 02-14-2024 Bamboo flowsheet Mary Allen DO Work Phone: [facility] [place] [facility] Start: 02-14-2024 End: 02-14-2024 Bamboo flowsheet Mary Allen DO Work Phone: [facility] [place] [facility] Start: 02-07-2024 End: 02-07-2024 Social Work Jasmine Peres Didion [employer] Work Phone: [facility] Comment on above: SAMUEL (generalized anx iety disorder) ([facility]) Start: 02-07-2024 End: 02-07-2024 Bamboo flowsheet Jasmine C Didion [employer] Work Phone: [facility] Start: 02-07-2024 End: 02-07-2024 Bamboo flowsheet Jasmine Peres Didion W[employer] Work Phone: [facility] Start: 01-30-2024 End: 01-30-2024 Office outpatient visit 15 minutes Rajat Aguilar SALES OFFICE ASSISTANT Work Phone: [facility] [place] [facility] Comment on above: Essential tremor (Pr imary Dx); Cognitive dysfunction; Anxiety; Imbalance; Muscle cramping; CASSIE (obstructive sleep apnea) Start: 01-30-2024 End: 01-30-2024 ambulatory RAJAT AGUILAR Not Available Start: 01-30-2024 End: 01-30-2024 Bamboo flowsheet Rajat Aguilar SALES OFFICE ASSISTANT Work Phone: [facility] [place] [facility] Start: 01-30-2024 End: 01-30-2024 Bamboo flowsheet Rajat Aguilar SALES OFFICE ASSISTANT Work Phone: [facility] [place] [facility] Start: 01-10-2024 End: 01-10-2024 Social Work Jasmine Huynhion [employer] Work Phone: [facility] Comment on above: SAMUEL (generalized anx iety disorder) ([facility]) Start: 01-10-2024 End: 01-10-2024 Bamboo flowsheet Jasmine C Didion [employer] Work Phone: [facility] Start: 01-10-2024 End: 01-10-2024 Bamboo flowsheet Jasmine C Didion [employer] Work Phone: [facility] Start: 01-02-2024 End: 01-02-2024 ambulatory PA-C NGA E JUANITO Facility:[facility] Start: 01-02-2024 End: 01-02-2024 Patient encounter procedure NGA Tano JUANITO [facility] Start: 12-19-2023 ambulatory PA-C NGA E JUANITO Facility:[facility] Start: 12-15-2023 End: 12-15-2023 ambulatory JASMINE DIDION Not Available Start: 12-05-2023 End: 12-05-2023 ambulatory PA-C NGA E JUANITO Facility:[facility] Start: 12-05-2023 End: 12-05-2023 Patient encounter procedure NGA E JUANITO [facility] Start: 11-28-2023 End: 11-28-2023 ambulatory PA-C NGA E JUANITO Facility:[facility] Start: 11-28-2023 End: 11-28-2023 Patient encounter procedure NGA E JUANITO [facility] Start: 11-21-2023 End: 11-21-2023 ambulatory PA-C NGA E JUANITO Facility:[facility] Start: 11-21-2023 End: 11-21-2023 Patient encounter procedure NGA E JUANITO [facility] [employer] Start: 11-16-2023 End: 11-16-2023 ambulatory RAJAT AGUILAR Not Available Start: 11-14-2023 End: 11-14-2023 ambulatory PA-C NGA WILKINS Facility:[facility] Start: 11-14-2023 End: 11-14-2023 Patient encounter procedure NGA WILKINS [facility] [place] Start: 11-10-2023 End: 11-10-2023 ambulatory TAN SOTELO Not Available Start: 11-08-2023 End: 11-08-2023 ambulatory JASMINE URBAN Not Available Start: 11-07-2023 End: 11-07-2023 ambulatory PA-C NGA WILKINS Facility:[facility] Start: 11-07-2023 End: 11-07-2023 Patient encounter procedure NGA WILKINS [facility] [employer] Start: 10-31-2023 End: 10-31-2023 ambulatory PA-C NGA WILKINS Facility:[facility] Start: 10-31-2023 End: 10-31-2023 Patient encounter procedure NGA WILKINS [facility] Start: 06-23-2023 End: 06-23-2023 Office outpatient visit 15 minutes Andre Funes MD Work Phone: Hematology/Oncology Comment on above: MENDEZ (nonalcoholic s teatohepatitis) (Primary Dx); 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); Thrombocytopenia due to hypersplenism; Thrombocytopenia (HCC); Diabetic gastroparesis (HCC) (HCC) Start: 06-22-2023 End: 06-22-2023 ambulatory Soheila Delgado Other [employer] Other Start: 06-22-2023 Telephone encounter Soheila Delgado [facility] Start: 05-03-2023 End: 05-03-2023 Patient encounter procedure NGA WILKINS [facility] Start: 04-12-2023 End: 04-12-2023 ambulatory Rodger Davila Other [employer] Other Start: 04-12-2023 Telephone encounter Rodger cabrales [facility] Start: 04-05-2023 End: 04-05-2023 ambulatory Rodger Davila Other [employer] Other Start: 04-05-2023 Office outpatient vi sit 15 minutes Rodger Davila [facility] Start: 10-19-2022 End: 10-20-2022 ambulatory SHAKIRA RONALDO Facility:[facility] Start: 10-15-2022 ambulatory SHAKIRA RONALDO Facility: [facility] Start: 10-06-2022 End: 10-06-2022 ambulatory SHAKIRA RONALDO Facility:[facility] Start: 09-28-2022 End: 09-28-2022 ambulatory Rodger Davila Other [employer] Other Start: 09-28-2022 Office outpatient vi sit 15 minutes Rodger Davila [facility] Start: 06-25-2022 End: 06-25-2022 Office outpatient visit 15 minutes Andre Funes MD Work Phone: Hematology/Oncology Comment on above: Cirrhosis of liver n ot due to alcohol (HCC) (Primary Dx); MENDEZ (nonalcoholic steatohepatitis); Thrombocytopenia due to hypersplenism Start: 06-22-2022 End: 06-22-2022 ambulatory Rodger Davila Other [employer] Other Start: 06-22-2022 Office outpatient vi sit 15 minutes Rodger Davila [facility] Start: 06-10-2022 End: 06-11-2022 ambulatory SHAKIRAFABIENNE RUTHMER Facility:[facility] Start: 05-22-2022 End: 05-22-2022 ambulatory SHAKIRA RONALDO Facility:[facility] Start: 04-01-2022 End: 04-01-2022 ambulatory Rodger Davila Other [facility] Other Start: 04-01-2022 Telephone encounter Rodger Hyde [facility] Start: 03-16-2022 End: 03-16-2022 ambulatory SHAKIRA HIGGINS Facility:[facility] Start: 03-15-2022 End: 03-16-[address] DOCTOR [place] Facility:[facility] Start: 03-04-2022 End: 03-04-2022 ambulatory Rodger Davila Other [employer] Other Start: 03-04-2022 Office outpatient ne w 45 minutes Rodger Davila [facility] Start: 02-16-2022 End: 03-01-2022 ambulatory UNKNOWN PROVIDER Facility:[facility] Start: 12-17-2021 End: 12-17-2021 ambulatory Andre Funes MD Work Phone: Hematology/Oncology Comment on above: Thrombocytopenia due to hypersplenism (Primary Dx); Cirrhosis of liver not due to alcohol (HCC); MENDEZ (nonalcoholic steatohepatitis) Start: 12-17-2021 End: 12-17-2021 Patient encounter procedure Andre Funes MD Work Phone: [facility] Start: 11-25-2021 End: 11-26-2021 ambulatory SHAKIRA HIGGINS Facility:[facility] Start: 05-17-2021 End: 05-17-[address] JENNIFER TURNER Facility:[facility] Start: 08-05-2020 End: 08-05-2020 Patient encounter procedure External Provider [facility] Start: 08-05-2020 Results Only External Provider Exter nal-NonCCF Procedures Date Procedure Procedure Detail Performing Clinician Start: 10-30-2024 Gluc bld gluc mntr dev cleared fda spec home use Ze Solis MD Work Phone: Start: 10-25-2024 MM TOMOSYNTHESIS SCREENING BI Tj irvera MD Work Phone: Start: 10-25-2024 Mammography Tj Dutton MD Work Phone: Start: 07-02-2024 Gluc bld gluc mntr dev cleared fda spec home use Ze Solis MD Work Phone: Start: 05-29-2024 Mammography Tj Dutton MD Work Phone: Start: 03-05-2024 Gluc bld gluc mntr dev cleared fda spec home use Ze Solis MD Work Phone: Start: 05-24-2023 Microscopic observation [Identifier] in Cervix by Cyto stain Jasmine Urban [employer] Work Phone: Start: 05-20-2022 Mammography Jasmine Urban [employer] Work Phone: Start: 12-10-2020 Adult depression screening assessment Andre Funes MD Work Phone: Start: 09-24-2020 Esophagogastroduodenoscopy NGA Gao Comment on above: with Right Hemorrhoidectomy Start: 08-05-2020 EXTERNAL LAB External Provider Start: 04-09-2020 Colonoscopy Jasmine Urban [employer] Work Phone: Start: 04-09-2020 Colonoscopy NGA JUANITO Bilateral tubal ligation SAMMY BARR JUANITO Bilateral tubal ligation SAMMY BARR JUANITO Bile duct stone removal MILTON IFKEN JUANITO Bile duct stone removal MILTON IFKEN JUANITO section NGA JUÁREZ RRY Laparoscopic cholecystectomy NGA WILKINS Tonsillectomy and adenoidectomy NGA WILKINS Plan of Treatment Date Care Activity Detail Author Start: 04-09-2030 Screening for malignant neoplasm of colon [facility] Start: 05-29-2029 Screening for malignant neoplasm of cervix [facility] Start: 05-24-2026 Screening for malignant neoplasm of cervix [facility] Start: 10-25-2025 Screening for malignant neoplasm of breast Mammogram [facility] Start: 06-25-2025 DIABETES SCREEN DIABETES SCREEN [facility] Start: 06-04-2025 End: 06-04-2025 Patient encounter procedure 06/04/2025 1:00 PM EST Office Visit [facility] [address] [place] [phone] Tj Dutton MD [address] [place] [address] [facility] Start: 05-29-2025 Screening for malignant neoplasm of breast Mammogram [facility] Start: 03-06-2025 End: 03-06-2025 Patient encounter procedure 03/06/2025 2:20 PM EDT Office Visit [facility] [address] [place] [phone] Ze Solis MD [address] [place] [address] [facility] Start: 03-05-2025 End: 03-05-2025 Patient encounter procedure 03/05/2025 1:30 PM EDT Office Visit [facility] [address] [place] [address] Tj Dutton MD [address] [place] [address] [facility] Start: 01-10-2025 End: 01-10-2025 Patient encounter procedure 01/10/2025 3:00 PM EDT Office Visit [facility] [address] [facility] [address] [place] [phone] Kenny Sabrina, SALES OFFICE ASSISTANT [address] [place] [phone] [facility] Start: 12-17-2024 DI[address]ES [address]EN DI[address] SCREEN [facility] Start: 10-30-2024 End: 10-30-2024 Patient encounter procedure 10/30/2024 2:00 PM EDT Office Visit [facility] [address] [place] [address] Ze Solis MD [address] [place] [address] [facility] Start: 10-30-2024 End: 10-30-2025 Thyrotropin [Units/volume] in Serum or Plasma TSH Lab Routine Acquired hypothyroidism (CMS/HCC) Expected: 10/30/2024 (Approximate), Expires: 10/30/2025 [facility] Comment on above: Expected: 10/30/2024 (Approximate), Expi res: 10/30/2025 Start: 10-30-2024 End: 10-30-2025 Thyroxine (T4) free [Mass/volume] in Serum or Plasma T4, free Lab Routine Acquired hypothyroidism (CMS/HCC) Expected: 10/30/2024 (Approximate), Expires: 10/30/2025 [facility] Comment on above: Expected: 10/30/2024 (Approximate), Expi res: 10/30/2025 Start: 10-30-2024 End: 10-30-2025 Triiodothyronine (T3) Free [Mass/volume] in Serum or Plasma T3, free Lab Routine Acquired hypothyroidism (CMS/HCC) Expected: 10/30/2024 (Approximate), Expires: 10/30/2025 [facility] Work Phone: Comment on above: Expected: 10/30/2024 (Approximate), Expi res: 10/30/2025 Start: 10-23-2024 End: 10-23-2024 Patient encounter procedure 10/23/2024 4:20 PM EDT Office Visit [facility] [address] [place] [address] Gi Arriaga, ALLIE [address] [place] [facility] Start: 10-22-2024 End: 07-26-2025 DBT Breast - bilateral screening Bilateral screening mammogram with tomosynthesis Imaging Routine Other screening mammogram Expected: 10/22/2024, Expires: 07/26/2025 [facility] Comment on above: Expected: 10/22/2024, Expires: Start: 09-10-2024 End: 09-10-2024 Patient encounter procedure [facility] [place] [facility] Comment on above: Arrived Start: 08-30-2024 End: 08-30-2024 Patient encounter procedure [facility] Comment on above: Surgery follow-up; LGSIL of cervix of undetermined significance; HPV (human papilloma virus) infection Start: 07-30-2024 End: 07-30-2024 Patient encounter procedure [facility] [place] [facility] Start: 07-02-2024 End: 07-02-2024 Patient encounter procedure [facility] Comment on above: Arrived Start: 06-28-2024 End: 06-28-2024 Follow-up encounter 06/28/2024 2:20 PM EST Visit (SP) Office Hematology/Oncology [address] [place] [address] Andre Funes MD [address] [place] [address] 1 year follow up with lab the same day Hematology/Oncology Comment on above: 1 year follow up with lab the same day Start: 06-28-2024 End: 06-28-2024 Patient encounter procedure 06/28/2024 2:00 PM EST Office Visit [facility] [address] [place] [address] [place] [address] 1 year follow up with lab the same day [facility] Comment on above: 1 year follow up with lab the same day Start: 06-23-2024 End: 09-22-2024 [id number] [Mass/volume] in Serum or Plasma ALPHA FETOPROTEIN BL Lab Routine MENDEZ (nonalcoholic steatohepatitis) 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 Expected: 06/23/2024 (Approximate), Expires: 09/22/2024 [facility] Work Phone: Comment on above: Expected: 06/23/2024 (Approximate), Expi res: 09/22/2024 Start: 06-23-2024 End: 06-23-2024 CBC W Auto Differential panel - Blood CBC + DIFF Lab Routine MENDEZ (nonalcoholic steatohepatitis) 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 Expected: 06/23/2024 (Approximate), Expires: 06/23/2024 [facility] Work Phone: Comment on above: Expected: 06/23/2024 (Approximate), Expi res: 06/23/2024 Start: 06-23-2024 End: 06-23-2024 Cobalamin (Vitamin B12) [Mass/volume] in Serum or Plasma VITAMIN B12 BLOOD Lab Routine MENDEZ (nonalcoholic steatohepatitis) 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 Expected: 06/23/2024 (Approximate), Expires: 06/23/2024 [facility] Work Phone: Comment on above: Expected: 06/23/2024 (Approximate), Expi res: 06/23/2024 Start: 06-23-2024 End: 06-23-2024 Comprehensive metabolic 2000 panel - Serum or Plasma COMP METABOLIC PANEL Lab Routine MENDEZ (nonalcoholic steatohepatitis) 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 Expected: 06/23/2024 (Approximate), Expires: 06/23/2024 [facility] Work Phone: Comment on above: Expected: 06/23/2024 (Approximate), Expi res: 06/23/2024 Start: 06-23-2024 End: 06-23-2024 Ferritin [Mass/volume] in Serum or Plasma FERRITIN BLD Lab Routine MENDEZ (nonalcoholic steatohepatitis) 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 Expected: 06/23/2024 (Approximate), Expires: 06/23/2024 [facility] Work Phone: Comment on above: Expected: 06/23/2024 (Approximate), Expi res: 06/23/2024 Start: 06-23-2024 End: 06-23-2024 Folate [Mass/volume] in Serum or Plasma FOLATE SERUM Lab Routine MENDEZ (nonalcoholic steatohepatitis) 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 Expected: 06/23/2024 (Approximate), Expires: 06/23/2024 [facility] Work Phone: Comment on above: Expected: 06/23/2024 (Approximate), Expi res: 06/23/2024 Start: 06-23-2024 End: 06-23-2024 Iron and Iron binding capacity panel - Serum or Plasma IRON + TIBC Lab Routine MENDEZ (nonalcoholic steatohepatitis) 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 Expected: 06/23/2024 (Approximate), Expires: 06/23/2024 [facility] Work Phone: Comment on above: Expected: 06/23/2024 (Approximate), Expi res: 06/23/2024 Start: 06-12-2024 End: 06-12-2024 Social Work 06/12/2024 3:00 PM EST Social Work [facility] [address] [place] [address] Jasmine Urban LISW-S [address] [place] [address] [facility] Start: 05-29-2024 End: 05-29-2024 Patient encounter procedure 05/29/2024 2:45 PM EST Office Visit [facility] [address] [place] [address] Tj Dutton MD [address] [place] [address] [facility] Start: 05-28-2024 End: 05-28-2024 Patient encounter procedure 05/28/2024 2:40 PM EST Office Visit [facility] [address] [place] [address] Rajat Aguilar NP [address] [place] [address] [facility] Start: 05-08-2024 End: 05-08-2024 Social Work 05/08/2024 3:00 PM EST Social Work [facility] [address] [place] [id number] Jasmine Urban, [employer] [address] [place] [address] [facility] Start: 04-04-2024 End: 04-04-2024 Social Work 04/04/2024 1:00 PM EST Social Work [facility] [address] [place] [id number] Jasmine Urban, [employer] [address] [place] [address] [facility] Start: 03-05-2024 End: 03-05-2024 Patient encounter procedure 03/05/2024 1:50 PM EDT Office Visit [facility] [address] [place] [address] Ze Solis MD [address] [place] [address] [facility] Start: 03-01-2024 End: 03-01-2024 Social Work [facility] Comment on above: Arrived Start: 02-14-2024 End: 02-14-2024 Patient encounter procedure [facility] Comment on above: Arrived Start: 02-07-2024 End: 02-07-2024 Social Work 02/07/2024 3:00 PM EDT Social Work [facility] [address] [place] [address] Jasmine Urban LISW-S [address] [place] [address] [facility] Start: 01-30-2024 End: 01-30-2024 Patient encounter procedure [facility] Comment on above: Arrived Start: 01-22-2024 Covid-19 Vaccine () Covid-19 Vacc[address] () [facility] Start: 01-22-2024 Influenza vaccination Influenza Vaccine (#1) [facility] Start: 06-25-2023 End: 06-25-2023 CBC W Auto Differential panel - Blood CBC + DIFF Lab Routine 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 Expected: 06/25/2023 (Approximate), Expires: 06/25/2023 [facility] Work Phone: Comment on above: Expected: 06/25/2023 (Approximate), Expi res: 06/25/2023 Start: 06-25-2023 End: 06-25-2023 Cobalamin (Vitamin B12) [Mass/volume] in Serum or Plasma VITAMIN B12 BLOOD Lab Routine 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 Expected: 06/25/2023 (Approximate), Expires: 06/25/2023 [facility] Work Phone: Comment on above: Expected: 06/25/2023 (Approximate), Expi res: 06/25/2023 Start: 06-25-2023 End: 06-25-2023 Comprehensive metabolic 2000 panel - Serum or Plasma COMP METABOLIC PANEL Lab Routine 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 Expected: 06/25/2023 (Approximate), Expires: 06/25/2023 [facility] Work Phone: Comment on above: Expected: 06/25/2023 (Approximate), Expi res: 06/25/2023 Start: 06-25-2023 End: 07-25-2023 Dup-scan artl patrick abdl/pel/scrot&/rpr orgn com US DOPPLER COMPLETE Radiology Routine 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 Expected: 06/25/2023 (Approximate), Expires: 07/25/2023 [facility] Work Phone: Comment on above: Expected: 06/25/2023 (Approximate), Expi res: 07/25/2023 Start: 06-25-2023 End: 06-25-2023 Ferritin [Mass/volume] in Serum or Plasma FERRITIN BLD Lab Routine 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 Expected: 06/25/2023 (Approximate), Expires: 06/25/2023 [facility] Work Phone: Comment on above: Expected: 06/25/2023 (Approximate), Expi res: 06/25/2023 Start: 06-25-2023 End: 06-25-2023 Folate [Mass/volume] in Serum or Plasma FOLATE SERUM Lab Routine 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 Expected: 06/25/2023 (Approximate), Expires: 06/25/2023 [facility] Work Phone: Comment on above: Expected: 06/25/2023 (Approximate), Expi res: 06/25/2023 Start: 06-25-2023 End: 06-25-2023 Iron and Iron binding capacity panel - Serum or Plasma IRON + TIBC Lab Routine 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 Expected: 06/25/2023 (Approximate), Expires: 06/25/2023 [facility] Work Phone: Comment on above: Expected: 06/25/2023 (Approximate), Expi res: 06/25/2023 Start: 06-25-2023 End: 07-25-2023 US ABD LIVER VASCULAR US ABD LIVER VASCULAR Radiology Routine 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 Expected: 06/25/2023 (Approximate), Expires: 07/25/2023 [facility] Work Phone: Comment on above: Expected: 06/25/2023 (Approximate), Expi res: 07/25/2023 Start: 05-23-2023 Depression Assessment Depression Assessment [facility] Start: 05-20-2023 Screening for malignant neoplasm of breast Mammogram [facility] Start: 02-24-2023 Screening for malignant neoplasm of colon [facility] Start: 06-19-2022 End: 08-19-2022 [id number] [Mass/volume] in Serum or Plasma ALPHA FETOPROTEIN BL Lab Routine 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) MENDEZ (nonalcoholic steatohepatitis) Expected: 06/19/2022 (Approximate), Expires: 08/19/2022 [facility] Work Phone: Comment on above: Expected: 06/19/2022 (Approximate), Expi res: 08/19/2022 Start: 06-19-2022 End: 12-17-2022 CBC W Auto Differential panel - Blood CBC + DIFF Lab Routine 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) MENDEZ (nonalcoholic steatohepatitis) Expected: 06/19/2022 (Approximate), Expires: 12/17/2022 [facility] Work Phone: Comment on above: Expected: 06/19/2022 (Approximate), Expi res: 12/17/2022 Start: 06-19-2022 End: 12-17-2022 Cobalamin (Vitamin B12) [Mass/volume] in Serum or Plasma VITAMIN B12 BLOOD Lab Routine 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) MENDEZ (nonalcoholic steatohepatitis) Expected: 06/19/2022 (Approximate), Expires: 12/17/2022 [facility] Work Phone: Comment on above: Expected: 06/19/2022 (Approximate), Expi res: 12/17/2022 Start: 06-19-2022 End: 12-17-2022 Comprehensive metabolic 2000 panel - Serum or Plasma COMP METABOLIC PANEL Lab Routine 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) MENDEZ (nonalcoholic steatohepatitis) Expected: 06/19/2022 (Approximate), Expires: 12/17/2022 [facility] Work Phone: Comment on above: Expected: 06/19/2022 (Approximate), Expi res: 12/17/2022 Start: 06-19-2022 End: 12-17-2022 Ferritin [Mass/volume] in Serum or Plasma FERRITIN BLD Lab Routine 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) MENDEZ (nonalcoholic steatohepatitis) Expected: 06/19/2022 (Approximate), Expires: 12/17/2022 [facility] Work Phone: Comment on above: Expected: 06/19/2022 (Approximate), Expi res: 12/17/2022 Start: 06-19-2022 End: 12-17-2022 Folate [Mass/volume] in Serum or Plasma FOLATE SERUM Lab Routine 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) MENDEZ (nonalcoholic steatohepatitis) Expected: 06/19/2022 (Approximate), Expires: 12/17/2022 [facility] Work Phone: Comment on above: Expected: 06/19/2022 (Approximate), Expi res: 12/17/2022 Start: 06-19-2022 End: 12-17-2022 Iron and Iron binding capacity panel - Serum or Plasma IRON + TIBC Lab Routine 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) MENDEZ (nonalcoholic steatohepatitis) Expected: 06/19/2022 (Approximate), Expires: 12/17/2022 [facility] Work Phone: Comment on above: Expected: 06/19/2022 (Approximate), Expi res: 12/17/2022 Start: 06-19-2022 End: 01-16-2023 Us abdominal real time w/image limited US ABD RT UPPER QUADRANT Radiology Routine 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) MENDEZ (nonalcoholic steatohepatitis) Expected: 06/19/2022 (Approximate), Expires: 01/16/2023 [facility] Work Phone: Comment on above: Expected: 06/19/2022 (Approximate), Expi res: 01/16/2023 Start: 05-23-2022 DEPRESSION ASSESSMENT DEPRESSION ASSESSMENT [facility] Start: 01-21-2022 Influenza vaccination INFLUENZA (#1) [facility] Start: 12-10-2021 Adult depression screening assessment DEPRESSION SCREENING [facility] Start: 09-29-2021 COVID-19 VACCINE (4 - Booster for Pfizer series) COVID-19 VACCINE (4 - Booster for Pfizer series) [facility] Start: 01-22-2020 Influenza vaccination INFLUENZA (#1) [facility] Start: 2020 RSV Vaccine (1 - 1-dose 60+ series) RSV Vaccine (1 - 1-dose 60+ series) [facility] Start: 2020 RSV Vaccine (1 - Risk 60-74 years 1-dose series) RSV Vaccine (1 - Risk 60-74 years 1-dose series) [facility] Start: 11-07-2017 HEPATITIS B (2 of 3 - Risk 3-dose series) HEPATITIS B (2 of 3 - Risk 3-dose series) [facility] Start: 11-07-2017 Hepatitis B Vaccine (2 of 3 - Risk 3-dose series) Hepatitis B Vaccine (2 of 3 - Risk 3-dose series) [facility] Start: 12-19-2014 Screening for malignant neoplasm of breast Mammogram Screening [facility] Start: 01-19-2010 Screening for malignant neoplasm of colon [facility] Start: 01-19-2010 SHINGRIX VACCINE (1 of 2) SHINGRIX VACCINE (1 of 2) [facility] Start: 01-06-2010 PNEUMOCOCCAL (2 - PCV) PNEUMOCOCCAL (2 - PCV) [facility] Start: 01-06-2010 Pneumococcal vaccination Pneumococcal Vaccine (2 of 2 - PCV) [facility] Start: 01-19-2005 COLOGUARD (FIT-DNA) COLOGUARD (FIT-DNA) [facility] Start: 01-19-[address] [facility] Start: 01-19-2005 COLORECTAL CANCER SCREENING COLORECTAL CANCER SCREENING [facility] Start: 01-19-[address] [facility] Start: 01-19-2005 DIABETES SCREEN DIABETES SCREEN [facility] Start: 01-19-2005 FECAL OCCULT BLOOD FECAL OCCULT BLOOD [facility] Start: 01-19-2005 LIPID SCREEN LIPID SCREEN [facility] Start: 01-19-2005 Screening for malignant neoplasm of colon [facility] Start: 01-19-[address] [facility] Start: [address] [facility] Start: 2000 Screening for malignant neoplasm of breast Mammogram Screening [facility] Start: 01-19-1990 HPV TESTING HPV TESTING [facility] Start: 01-19-1990 Screening for malignant neoplasm of cervix [facility] Start: 01-19-1981 PAP TESTING PAP TESTING [facility] Start: 01-19-1981 Screening for malignant neoplasm of cervix [facility] Start: 01-19-1979 Hepatitis A Vaccine (1 of 2 - Risk 2-dose series) Hepatitis A Vaccine (1 of 2 - Risk 2-dose series) [facility] Start: 01-19-[address] [facility] Start: 01-19-1978 Annual PCP Team Chronic Disease Visit Annual PCP Team Chronic Disease Visit [facility] Start: 01-19-1978 Anxiety Screening Anxiety Screening [facility] Start: 01-19-1978 Depression Screening Depression Screening [facility] Start: 01-19-1978 Hepatitis B surface antibody level LDL Cholesterol [facility] Start: 01-19-1978 HEPATITIS C SCREENING HEPATITIS C SCREENING [facility] Start: 01-19-1978 Hepatitis C screening Hepatitis C Screening [facility] Start: 01-19-1978 HIV SCREENING HIV SCREENING [facility] Start: 01-19-1978 HIV screening HIV Screening [facility] Start: 1972 Adult depression screening assessment DEPRESSION SCREENING [facility] Start: 01-19-1970 Diabetic foot examination Diabetic Foot Exam [facility] Start: 01-19-1970 Glaucoma screening Dilated Retinal Exam [facility] Start: 01-19-1970 Hepatitis B screening Urine Albumin:Creatinine Ratio [facility] Start: 01-19-1965 Hemoglobin A1c measurement HbA1C [facility] Start: 01-19-1961 HEPATITIS A (1 of 2 - Risk 2-dose series) HEPATITIS A (1 of 2 - Risk 2-dose series) [facility] Start: 1960 Screening for malignant neoplasm of colon [facility] End: 06-28-2025 CBC W Auto Differential panel - Blood COMPLETE BLOOD COUNT AND DIFFERENTIAL Lab Routine Biliary cirrhosis (HCC) MENDEZ (nonalcoholic steatohepatitis) 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 Every 6 months for 2 Occurrences starting 06/28/2024 until 06/28/2025 [facility] Work Phone: Comment on above: Every 6 months for 2 Occurrences startin g 06/28/2024 until 06/28/2025 End: 06-28-2025 Cobalamin (Vitamin B12) [Mass/volume] in Serum or Plasma VITAMIN B12 Lab Routine Biliary cirrhosis (HCC) MENDEZ (nonalcoholic steatohepatitis) 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 Every 6 months for 2 Occurrences starting 06/28/2024 until 06/28/2025 [facility] Comment on above: Every 6 months for 2 Occurrences startin g 06/28/2024 until 06/28/2025 End: 06-28-2025 Comprehensive metabolic 2000 panel - Serum or Plasma COMPREHENSIVE METABOLIC PANEL Lab Routine Biliary cirrhosis (HCC) MENDEZ (nonalcoholic steatohepatitis) 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 Every 6 months for 2 Occurrences starting 06/28/2024 until 06/28/2025 [facility] Comment on above: Every 6 months for 2 Occurrences startin g 06/28/2024 until 06/28/2025 End: 06-28-2025 Ferritin [Mass/volume] in Serum or Plasma FERRITIN Lab Routine Biliary cirrhosis (HCC) MENDEZ (nonalcoholic steatohepatitis) 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 Every 6 months for 2 Occurrences starting 06/28/2024 until 06/28/2025 [facility] Comment on above: Every 6 months for 2 Occurrences startin g 06/28/2024 until 06/28/2025 End: 06-28-2025 Folate [Mass/volume] in Serum or Plasma FOLATE, SERUM Lab Routine Biliary cirrhosis (HCC) MENDEZ (nonalcoholic steatohepatitis) 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 Every 6 months for 2 Occurrences starting 06/28/2024 until 06/28/2025 [facility] Comment on above: Every 6 months for 2 Occurrences startin g 06/28/2024 until 06/28/2025 IGP, APT HPV,RFX 16/18,45 IGP, APT HPV,RFX 16/18,45 Lab Routine Cervical cancer screening Screening for HPV (human papillomavirus) Ordered: 05/29/2024 [facility] Work Phone: Comment on above: Ordered: 05/29/2024 End: 06-28-2025 Iron and Iron binding capacity panel - Serum or Plasma IRON AND TIBC Lab Routine Biliary cirrhosis (HCC) MENDEZ (nonalcoholic steatohepatitis) 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 Every 6 months for 2 Occurrences starting 06/28/2024 until 06/28/2025 [facility] Comment on above: Every 6 months for 2 Occurrences startin g 06/28/2024 until 06/28/2025 End: 07-22-2024 US ABD RIGHT UPPER QUADRANT US ABD RIGHT UPPER QUADRANT Radiology Routine MENDEZ (nonalcoholic steatohepatitis) 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 1 Occurrences starting 06/23/2023 until 07/22/2024 [facility] Work Phone: Comment on above: 1 Occurrences starting 06/23/2023 until 07/22/2024 End: 07-28-2025 US Abdomen RUQ US ABD RIGHT UPPER QUADRANT Radiology Routine Biliary cirrhosis (HCC) MENDEZ (nonalcoholic steatohepatitis) 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 Every 6 months for 2 Occurrences starting 06/28/2024 until 07/28/2025 [facility] Comment on above: Every 6 months for 2 Occurrences startin g 06/28/2024 until 07/28/2025 End: 05-26-2025 US Spleen US ABD SPLEEN Radiology Routine Thrombocytopenia (HCC) Every 6 months for 3 Occurrences starting 04/26/2024 until 05/26/2025 [facility] Work Phone: Comment on above: Every 6 months for 3 Occurrences startin g 04/26/2024 until 05/26/2025 [facility] Immunizations Immunization Date Immunization Notes Care Provider Celeste fagan 03-23-2023 influenza virus vacc ine, unspecified formulation NGA WILKINS [facility] 03-17-2023 influenza virus vacc ine, unspecified formulation NGA WILKINS [facility] 03-24-2022 influenza virus vacc ine, unspecified formulation NGA WILKINS [facility] 03-24-2022 SARS-CoV-2 (COVID-19 ) [id number] NGA WILKINS [facility] 06-01-2021 influenza virus vacc ine, unspecified formulation NGA WILKINS [facility] 06-01-2021 Influenza, injectabl e, Madin Breann Canine Kidney, preservative free, quadrivalent Andre Funes MD Work Phone: [facility] 06-01-2021 SARS-CoV-2 (COVID-19 ) mRNA [id number] vax NGA WILKINS [facility] 09-09-2020 COVID-19 vaccine, ag e 12+ yr (PFIZER-BIONTECH - PURPLE TOP) Andre Funes MD Work Phone: [facility] Comment on above: Result Comment: most recent given 09/09/20 08-20-2020 COVID-19 vaccine, ag e 12+ yr (PFIZER-BIONTECH - PURPLE TOP) Andre Funes MD Work Phone: [facility] 06-04-2020 zoster vaccine recombinant Andre Funes MD Work Phone: [facility] 03-23-2020 zoster vaccine recombinant Andre Funes MD Work Phone: [facility] 02-14-2020 influenza virus vacc ine, unspecified formulation NGA JUANITO [facility] 02-14-2020 Influenza, injectabl e, Madin Breann Canine Kidney, preservative free, quadrivalent Andre Funes MD Work Phone: [facility] 06-05-2019 influenza virus vacc ine, unspecified formulation NGA WILKINS [facility] 06-05-2019 Influenza, injectabl e, Madin Darden Canine Kidney, preservative free, quadrivalent Andre Funes MD Work Phone: [facility] 05-21-2019 influenza virus vacc ine, unspecified formulation Andre Funes MD Work Phone: [facility] 05-21-2019 influenza, unspecifi ed formulation NGA WILKINS [facility] 04-19-2018 influenza virus vacc ine, unspecified formulation NGA JUANITO [facility] 04-19-2018 influenza, injectabl e, quadrivalent, preservative free Andre Funes MD Work Phone: [facility] 10-10-2017 hepatitis B vaccine, pediatric or pediatric/adolescent dosage Andre Funes MD Work Phone: [facility] 10-10-2017 hepatitis B vaccine, unspecified formulation Andre Funes MD Work Phone: [facility] 05-11-2017 hepatitis B vaccine, pediatric or pediatric/adolescent dosage Andre Funes MD Work Phone: [facility] 04-12-2017 hepatitis B vaccine, adult dosage Andre Funes MD Work Phone: [facility] 03-21-2017 influenza virus vacc ine, unspecified formulation NGA PAGERY [facility] 03-21-2017 influenza, injectabl e, quadrivalent, preservative free Andre Funes MD Work Phone: [facility] 04-12-2016 influenza virus vacc ine, unspecified formulation NGA JUANITO [facility] 04-12-2016 influenza, injectabl e, quadrivalent, preservative free Andre Funes MD Work Phone: [facility] 03-23-2014 influenza virus vacc ine, unspecified formulation Andre Funes MD Work Phone: [facility] 03-23-2014 influenza, unspecifi ed formulation NGA WILKINS [facility] 01-06-2009 pneumococcal polysaccharide vaccine, 23 valent Andre Funes MD Work Phone: [facility] Payers Date Payer Category Payer Self-pay 2024 Private Health Insurance [facility] - MEDICAID [id number] 2024 Unknown [id number] 2022 Medicare (Managed Care) [id number] 2022 Unknown [employer] [id number] 2022-Present [address] [place] [address] [id number] 2020 Medicare DEVOTED MEDICARE [employer] [id number] 2020-Present [phone] [address] [place] [address] HMO [id number] 2020 Medicare [id number] 2020 Unknown [id number] 2020 Medicaid [id number] 2020 Medicaid [id number] 2020 Medicare MEDICARE MEDICAR E A AND B [id number] 2020-Present [place] Medicare [id number] 1960 Unknown [id number] 1960 Unknown [id number] 1960 Unknown [id number] 2.16.840.1.656531.3.579.2. 593 1960 Unknown [id number] 2.16.840.1.730517.3.579.2. 593 1960 Unknown [id number] 2.16.840.1.947185.3.579.2. 593 1960 Unknown [id number] 2.16.840.1.586226.3.579.2. 593 1960 Unknown [id number] 2.16.840.1.785655.3.579.2. 593 1960 Unknown [id number] 2.16.840.1.959338.3.579.2. 593 1960 Unknown [id number] 2.16.840.1.117951.3.579.2. 593 1960 Unknown [id number] 2.16.840.1.773668.3.579.2. 593 1960 Unknown [id number] 2.16.840.1.307796.3.579.2. 593 1960 Unknown [id number] 2.16.840.1.300498.3.579.2. 593 1960 Unknown [id number] 2.16.840.1.125342.3.579.2. 593 1960 Unknown [id number] 2.16.840.1.513131.3.579.2. 727 1960 Unknown [id number] 2.16.840.1.555395.3.579.2. 727 1960 Unknown [id number] 2.16.840.1.248564.3.579.2. 727 1960 Unknown [id number] 2.16.840.1.798936.3.579.2. 727 1960 Unknown [id number] 2.16.840.1.790762.3.579.2. 727 1960 Unknown [id number] 2.16.840.1.693474.3.579.2. 727 1960 Unknown [id number] 2.16.840.1.251007.3.579.2. 727 1960 Unknown [id number] 2.16.840.1.701003.3.579.2. 727 1960 Unknown [id number] 2.16.840.1.827555.3.579.2. 727 1960 Unknown [id number] 2.16.840.1.399719.3.579.2. 1960 Unknown [id number] 2.16.840.1.390925.3.579.2. 72 1960 Unknown [id number] 2.16.840.1.168854.3.579.2. 1960 Unknown [id number] 2.16.840.1.743943.3.579.2. 1960 Unknown [id number] 2.16.840.1.520530.3.579.2. 1258 1960 Unknown [id number] 2.16.840.1.760408.3.579.2. 1258 1960 Unknown [id number] 2.16.840.1.424325.3.579.2. 1258 1960 Unknown [id number] 2.16.840.1.209066.3.579.2. 1258 1960 Unknown [id number] 2.16.840.1.190059.3.579.2. 1258 1960 Unknown [id number] 2.16.840.1.756763.3.579.2. 1258 1960 Unknown [id number] 2.16.840.1.541810.3.579.2. 1258 1960 Unknown [id number] 2.16.840.1.858574.3.579.2. 1258 1960 Unknown [id number] 2.16.840.1.027043.3.579.2. 1258 1960 Unknown [id number] 2.16.840.1.055199.3.579.2. 1258 1960 Unknown [id number] 2.16.840.1.473046.3.579.2. 1259 1960 Unknown [id number] 2.16.840.1.015695.3.579.2. 1258 1960 Unknown [id number] 2.16.840.1.363485.3.579.2. 9 1960 Unknown [id number] 2.16.840.1.917815.3.579.2. 1258 1960 Unknown [id number] 2.16.840.1.446924.3.579.2. 1258 1960 Unknown [id number] 2.16.840.1.871435.3.579.2. 1258 1960 Unknown [id number] 2.16.840.1.213767.3.579.2. 1258 1960 Unknown [id number] 2.840.1.058877.3.579.2. 1258 1960 Unknown [id number] 2.16840.1.858704.3.579.2. 1259 1959 Medicaid [id number] Unknown [id number] 2.840.1.570695.3.579.2. 531 Social History Date Type Detail Facility Tobacco smoking stat [facility] Unknown if ever smoked [facility] Start: 1960 Sex Assigned At Not on file C [facility] Start: 08-06-2020 End: 05-26-2023 Tobacco smoking status MOIS Smokes tobacco daily [facility] History of tobacco use Cigarette Smoker C [facility] Start: 08-06-2020 End: 09-10-2024 Cigarettes smoked current (pack per day) - Reported 0.5 [facility] Start: 08-06-2020 End: 05-26-2023 Tobacco use and exposure Smokeless tobacco non-user [facility] Start: 06-11-2021 End: 09-10-2024 Alcohol intake Ex-drinker (finding) [facility] Start: 12-07-2021 End: 12-17-2021 Exposure to SARS-CoV-2 (event) Not sure [facility] Start: 06-23-2023 End: 09-10-2024 Sex Assigned At [facility] History of tobacco use Passive smoker [facility] Start: 05-03-2023 End: 10-19-2024 Tobacco smoking status Heavy tobacco smoker (finding) [facility] Tobacco smoking status Never [facility] Start: 05-26-2023 Tobacco Comment Thinks about quittin g [facility] Start: 05-26-2023 Alcohol Comment caffeine 1-2 c ups/day; coffee [facility] Start: 07-19-2023 Tobacco smoking stat us NHIS Smoker (finding) [facility] Start: 08-17-2024 Sex Female (finding) [facility] Start: 1960 Sex Assigned At Female F [facility] Sexual Orientation [facility] Medical Equipment Procedure Code Equipment Code Equipment Origin al Text Equipment Identifier Dates [id number] Start: 07-14-2022 End: 03-05-2024 Functional Status Date Assessment Result Facility 06-08-2024 Functional Status N/A [facility] 02-29-2024 Functional Status N/A [facility] 01-02-2024 Functional Status N/A [facility] 12-05-2023 Functional Status N/A [facility] 11-28-2023 Functional Status N/A [facility] 11-21-2023 Functional Status N/A [facility] 11-14-2023 Functional Status N/A [facility] 05-03-2023 Functional Status N/A [facility] Clinical Notes 12-17-2021 to 10-30-2024 Ze Solis MD - 10/30/2024 2:00 PM Mirna Cox NP - 09/10/2024 4:00 PM Nancy Dutton MD - 08/30/2024 1:00 PM EDTTelephone Encounter - Connor Leigh - 07/02/2024 2:16 PM EST Note Date & Type Note Facility 10-30-2024 History of Present illness Narrative Images from the original note were not included. Renetta Barbosa is a 64 y.o. female No ref. [...] the office. She has currently on U500, 40 in the morning, 60 at dinner, Trulicity 3 [...] HPI: 05/2021 New patient sent from Shakira iHggins CNP for uncontrolled diabetes. A1C in the [...] hours PRN Continuous Blood Gluc Sensor (FreeStyle Jeanne 2 Sensor) misc cyanocobalamin (VITAMIN B-12) 1,000 [...] Daily Myrbetriq 50 mg, Daily nystatin (Mycostatin) 956720 UNIT/GM powder Topical, 2 times daily, to [...] (CMS/HCC) Hypoglycemia Hypothyroidism (CMS/HCC) Liver disease terminal gauger (current) use of insulin (CMS/HCC) Memory changes EMNDEZ (nonalcoholic steatohepatitis) Osteoarthritis Thyroid disorder (CMS/HCC) Type 2 diabetes mellitus with hyperglycemia (CMS/HCC) Vitamin D deficiency, unspecified Past Surgical History: Procedure Laterality Date ADENOIDECTOMY 1964 CERVICAL BIOPSY W/ LOOP ELECTRODE EXCISION 07/2024 SECTION, LOW TRANSVERSE CHOLECYSTECTOMY 2016 OTHER SURGICAL HISTORY 1984 Cone biopsy of cervix-1984 TONSILLECTOMY 1965 VAGINAL DELIVERY VAGINAL DELIVERY REVIEW OF SYMPTOMS: [...] this visit: Insulin long-term use ([facility]) Type 2 diabetes mellitus with hyperglycemia, unspecified whether penitentiary insulin use ([facility]) - POCT glucose manually resulted - [...] risk medication use Primary hypertension ([facility]) Hypoglycemia Microalbuminuria Type 2 diabetes mellitus with hyperglycemia ([facility]) - empagliflozin (Jardiance) 25 MG; Take 1 tablet (25 mg) by mouth Daily - insulin regular (HumuLIN R U-500 KWIKPEN) 500 UNIT/ML CONCENTRATED injection; INJECT 80 UNITS SUBCUTANEOUSLY TWICE A DAY Acquired hypothyroidism ([facility]) - T3, free; Future - T4, free; Future - TSH; Future We will check lab and adjust currently on levothyroxine 150 mcg daily. Follow up in about 4 months (around 03/01/2025). documented in this encounter [facility] 10-19-2024 Hospital Discharge instructions Patient Education 10/19/2024 12:17:54 Overactive Bladder, Adult Overactive Bladder, Adult Overactive [...] your health care provider. General instructions Take wllj-vdf-rqfcgfd and prescription medicines only as told by [...] provider. Document Revised: 01/26/2021 Document Reviewed: 01/26/2021 [employer] Patient Education 2023 Back&. Follow Up Care 06/08/2024 12:32:55 With:NGA WILKINS PA-C, URL Address: [address] [place] [address] When:Within 1 Year(s) [facility] 10-19-2024 Note Patient Education Obstetrics and Gynecology Overactive [...] be caused by other factors, such as: ??? Medical conditions: ? Urinary tract infection. ? Infection of nearby tissues. ? Prostate enlargement. ? Bladder stones, inflammation, or tumors. ? Diabetes. ? Muscle or nerve weakness, especially from these conditions: ? A spinal cord injury. ? Stroke. ? Multiple sclerosis. ? Parkinson's disease. ??? Other causes: ? Surgery on the uterus or urethra. ? Drinking too much caffeine or alcohol. ? Certain medicines, especially those that eliminate extra fluid in the body (diuretics). ? Constipation. What increases the risk? You may be at greater risk for overactive bladder if you: ??? Are an older adult. ??? Smoke. ??? Are going through menopause. ??? Have prostate problems. ??? Have a neurological disease, such as stroke, dementia, Parkinson's disease, or multiple sclerosis (MS). ??? Eat or drink alcohol, spicy food, caffeine, and other things that irritate the bladder. ??? Are overweight or obese. What are the signs or symptoms? Symptoms of this condition include a sudden, strong urge to urinate. Other symptoms include: ??? Leaking urine. ??? Urinating 8 or more times a day. ??? Waking up to urinate 2 or more times overnight. How is this diagnosed? This condition may be diagnosed based on: ??? Your symptoms and medical history. ??? A physical exam. ??? Blood or urine tests to check for possible causes, such as infection. You may also need to see a health care provider who specializes in urinary tract problems. This is called a urologist. How is this treated? Treatment for overactive bladder depends on the cause of your condition and whether it is mild or severe. Treatment may include: ??? Bladder training, such as: ? Learning to control the urge to urinate by following a schedule to urinate at regular intervals. ? Doing Kegel exercises to strengthen the pelvic floor muscles that support your bladder. ??? Special devices, such as: ? Biofeedback. This [...] into the vagina and supports the bladder. ??? Medicines, such as: ? Antibiotics to treat bladder infection. ? Antispasmodics to stop the bladder from releasing urine at the wrong time. ? Tricyclic antidepressants to relax bladder muscles. ? Injections of botulinum toxin type A directly into the bladder tissue to relax bladder muscles. ??? Surgery, such as: ? A device may be implanted to help manage the nerve signals that control urination. ? An electrode may be implanted to stimulate electrical signals in the bladder. ? A procedure may be done to change the shape of the bladder. This is done only in very severe cases. Follow these instructions at home: Eating and drinking ??? Make diet or lifestyle changes recommended by [...] such as fried and sweet foods. Lifestyle ??? Lose weight if needed. ??? Do not use any products that contain nicotine or tobacco. These include cigarettes, chewing tobacco, and vaping devices, such as e-cigarettes. If you need help quitting, ask your health care provider. General instructions ??? Take cgpe-uud-znlqobu and prescription medicines only as told by your health care provider. ??? If you were prescribed an antibiotic medicine, take it as told by your health care provider. Do not stop taking the antibiotic even if you start to feel better. ??? Use any implants or pessary as told by your health care provider. ??? If needed, wear pads to absorb urine leakage. ??? Keep a log to track how much and when you drink, and whe (more content not included)... [facility] 09-10-2024 History of Present illness Narrative Images from the original note were not included. Chief Complaint Patient presents with Memory Loss Tremors Headache Subjective Renetta Barbosa is a 64 y.o. female. History of Present Illness The patient presents today for follow-up. She was evaluated in our office on 05/28/2024 by CORNELIA Wilson at which time no new orders were placed. She continues to have an intermittent action tremor of the bilateral hands (left more significant than right). This is well controlled on gabapentin and primidone and does not cause functional disability. The patient believes her memory and cognitive function have improved some since the prior appointment. She admits to some chronic word-finding difficulty. She denies difficulty recalling the names of close friends and family but states newer names can sometimes be difficult to recall. She remains independent with all ADLs and drives without safety concerns. She manages her medications independently and denies any difficulty with this. She uses a pill organizer. She also uses calendars to help her. She denies any known family history of dementia. The patient reports an increase in headache frequency recently. She is having approximately 2 headaches per week. This is unusual for her, as she states she does not typically get headaches. The patient's headaches are located in the bilateral frontal and temporal regions. Severity is moderate, and she describes them as pressure. They can be accompanied by light and sound sensitivity. They are not accompanied by visual disturbance, nausea, vomiting, or any other associated features. She has not identified any triggers. Relieving factors include iima-wid-dctrath analgesics such as Aleve and rest. If she falls asleep, the patient states her headaches will typically resolve by the time she wakes up. She denies fever, tenderness in the temporal region, or jaw pain. She has a history of CASSIE and wears a CPAP but not every night. She is not waking up with headaches. She denies any further new concerns. Review of Systems Constitutional: Negative for appetite change, chills, fatigue, fever and unexpected weight change. HENT: Negative for trouble swallowing and voice change. Eyes: Negative for visual change, double vision or loss of vision Respiratory: Negative for cough, shortness of breath and wheezing. Cardiovascular: Negative for chest pain and palpitations. Gastrointestinal: Negative for abdominal pain, blood in stool, nausea and vomiting. Musculoskeletal: Positive for arthralgias and gait problem (chronic balance difficulty). Negative for myalgias. Neurological: Positive for tremors and headaches. Negative for dizziness, seizures, syncope, facial asymmetry, speech difficulty, weakness, light-headedness and numbness. Positive for tingling/numbness in the bilateral toes. Positive for memory difficulty and word-finding difficulty Psychiatric/Behavioral: Negative for hallucinations and suicidal ideas. The patient is nervous/anxious. Positive for depression Home Medication List albuterol 90 mcg/act breath-activated inhaler; Commonly known as: ProAir RespiClick B COMPLEX-C ER PO B-D ULTRAFINE III SHORT PEN 31G X 8 MM misc; Generic drug: insulin pen needle; Use as instructed beta carotene 3 MG (28274 UT) capsule; Commonly known as: vitamin A Breztri Aerosphere 160-9-4.8 MCG/ACT aerosol; Generic drug: Qmtgtsb-Hyphesffgei-Xmjbviqicd cholecalciferol 200 Unit tablet split tablet; Commonly known as: Vitamin D3 clotrimazole 1 % cream; Commonly known as: Lotrimin dicyclomine 10 MG capsule; Commonly known as: Bentyl estradiol 10 MCG tablet vaginal tablet; Commonly known as: Yuvafem; INSERT 1 TABLET VAGINALLY TWO TIMES A WEEK FOR 90 DAYS FreeStyle Jeanne 2 Sensor misc gabapentin 300 MG capsule; Commonly known as: Neurontin; TAKE 1 CAPSULE BY MOUTH ONCE A DAY AT BEDTIME Gvoke HypoPen 2-Pack 1 MG/0.2ML injection; Generic drug: glucagon HumuLIN R U-500 KWIKPEN 500 UNIT/ML CONCENTRATED injection; Generic drug: insulin regular; INJECT 80 UNITS SUBCUTANEOUSLY TWICE A DAY Jardiance 25 MG; Generic drug: empagliflozin; TAKE 1 TABLET BY MOUTH EVERY DAY levothyroxine 150 MCG tablet; Commonly known as: Synthroid, Levoxyl loratadine 10 MG tablet; Commonly known as: Claritin losartan 100 MG tablet; Commonly known as: Cozaar magnesium 30 MG tablet Myrbetriq 25 MG 24 hr tablet; Generic drug: mirabegron ER nystatin 425173 UNIT/GM powder; Commonly known as: Mycostatin; APPLY TO AFFECTED AREA TWICE A DAY pantoprazole 40 MG EC tablet; Commonly known as: ProtoNix pravastatin 40 MG tablet; Commonly known as: Pravachol primidone 50 MG tablet; Commonly known as: Mysoline; TAKE 2 TABLETS BY MOUTH TWICE A DAY Restasis 0.05 % ophthalmic emulsion; Generic drug: cycloSPORINE tiZANidine 4 MG tablet; Commonly known as: Zanaflex; TAKE 1/2-1 TABLET BY MOUTH AT BEDTIME NEEDED triamcinolone 0.1 % cream; Commonly known as: Kenalog Trulicity 3 MG/0.5ML solution auto-injector; Generic drug: Dulaglutide; Inject 3 mg under the skin every 7 (seven) days venlafaxine XR 150 MG 24 hr capsule; Commonly known as: Effexor XR ZINC 15 PO Past Medical History: Diagnosis Date Abnormal Pap smear of vagina ADD (attention deficit disorder) Anxiety Autoimmune thyroiditis (CMS/HCC) COPD (chronic obstructive pulmonary disease) (CMS/HCC) Depression (CMS/HCC) Diabetes (CMS/HCC) Essential (primary) hypertension (CMS/HCC) GERD (gastroesophageal reflux disease) High cholesterol (CMS/HCC) Hypoglycemia Hypothyroidism (CMS/HCC) Liver disease terminal gauger (current) use of insulin (CMS/HCC) Memory changes MENDEZ (nonalcoholic steatohepatitis) Osteoarthritis Thyroid disorder (CMS/HCC) Type 2 diabetes mellitus with hyperglycemia (CMS/HCC) Vitamin D deficiency, unspecified Past Surgical History: Procedure Laterality Date ADENOIDECTOMY 1965 CERVICAL BIOPSY W/ LOOP ELECTRODE EXCISION 07/2024 SECTION, LOW TRANSVERSE CHOLECYSTECTOMY 2016 OTHER SURGICAL HISTORY 1984 Cone biopsy of cervix-1984 TONSILLECTOMY 1965 VAGINAL DELIVERY VAGINAL DELIVERY Family History Problem Relation Name Age of Onset Diabetes Mother Kidney disease Mother Obesity Mother Osteoarthritis Father Social History Tobacco Use Smoking status: Every Day Types: Cigarettes Smokeless tobacco: Never Tobacco comments: Thinks about quitting Substance Use Topics Alcohol use: Not Currently Comment: caffeine 1-2 cups/day; coffee Allergies: Capsaicin and Tramadol Vitals: 09/10/24 1548 BP: (!) 160/92 Pulse: 91 SpO2: 98% Body mass index is 33.07 kg/m . Weight: 180 lb 12.8 oz Neurologic exam: Mental status and general appearance: Awake and alert with unlabored respirations. Oriented to person, place, and time. Recent and remote memory are generally intact. Speech is clear and fluent without aphasia. Speech is non-dysarthric. Attention and concentration are normal. Fund of knowledge is appropriate for level of education. Cranial nerves: CN II: Visual acuity is normal. Visual knight full to confrontation. CN III, IV, : Pupils are equal, round, and reactive to light. Extraocular movements intact. No ptosis present. CN V: Facial sensation is normal. CN VII: Full and symmetric facial movement. CN VIII: Hearing is normal to finger rub bilaterally. CN IX and X: Palate elevates symmetrically. CN XI: Shoulder shrug is normal bilaterally. CN XII: Tongue is midline without atrophy or fasciculation. Motor: RUE strength deltoid , biceps , triceps , wrist extensors , and wrist flexor strength 5/5. Payable Representative strength 4+/5. LUE strength deltoid , biceps , triceps , wrist extensors , wrist flexor , and bi lead strength 5/5. RLE strength iliopsoas, quadriceps, tibialis anterior, and plantar flexion strength 5/5. LLE strength iliopsoas, quadriceps, tibialis anterior, and plantar flexion strength 5/5. Tone and bulk are normal. No rigidity. No rest tremor observed. Subtle postural and intention tremor of the bilateral hands. Sensory: Sensation is intact to light touch throughout all four extremities. Sensation is intact to temperature in all extremities. Reflexes: RUE biceps reflex 2+ , brachioradialis reflex 2+. LUE biceps reflex 2+ , brachioradialis reflex 2+. RLE knee reflex 1+. LLE knee reflex 1+. Coordination: Rhfsur-ix-dtqi testing normal. Rapid alternating movements are normal. No bradykinesia. Gait: Normal. Review and summary of old records: MOCA score on 05/28/2024: with 3/5 recall. EMG of the BLE on 11/10/2023: Normal. Labs on 11/15/2023: CK, myoglobin, and magnesium unremarkable. MOCA score at [facility] on 08/16/2023: . Labs on 06/23/2023: CBC unremarkable, CMP demonstrates elevated glucose - unsure of fasting status, and mildly low sodium 133 (advised patient to review with PCP), vitamin B12 586. MRI brain w and w/o contrast at [facility] on 04/04/23: Within limitations of motion artifact which moderately limited multiple pulse sequences, no discrete acute intracranial abnormalities or abnormal intracranial enhancement identified. Mild chronic microvascular ischemic changes were noted. Labs at [facility] on 10/19/22: CBC generally unremarkable; CMP generally unremarkable (creatinine 1.04, GFR 54); CK 68; TSH decreased at 0.292; B12 912. MOCA score at [facility] on 03/09/22: . CT of the brain without contrast on 05/17/21: Unremarkable. CT of the cervical spine without contrast on 05/17/21: No fracture or malalignment noted. Assessment/Plan Diagnoses and all orders for this visit: Nonintractable episodic headache, unspecified headache type Insomnia, unspecified type Ms. Barbosa is a 64-year-old female who presents reporting a new problem of headaches over the past few months. She is having approximately 2 headaches per week which are amendable to OTC analgesics and rest. Given the clinical description, I believe these seem most consistent with tension-type headaches. The patient denies jaw pain, monocular vision loss, head/alevism tenderness, or constitutional symptoms to suggest GCA. She denies thunderclap headache. She denies any other new neurologic symptoms, and her exam today is stable when compared to the prior. PLAN: - I advised the patient that I do believe her symptoms are most consistent with tension-type headache. However, given the new onset of headaches and age greater than 50 years, I strongly recommended obtaining an MRI of the brain to rule out a secondary headache cause. I informed the patient that development of new headaches in individuals over the age of 50 can sometimes indicate a serious underlying condition such as brain tumor. The patient verbalizes understanding but politely refuses MRI. She understands underlying pathology may be missed without this, and this could be debilitating or life-threatening - Monitor clinically - I recommended ensuring adequate sleep, adequate hydration, regular physical activity as tolerated, stress management, and compliance with CPAP use while asleep Essential tremor The patient has postural and intention tremor, most consistent with essential tremor. This remains well managed on the current doses of primidone and gabapentin. No significant parkinsonism features on clinical exam. PLAN: - Continue primidone 100 mg by mouth twice a day - The patient is taking gabapentin for other purposes, however, this may also provide benefit for tremor Cognitive dysfunction The patient reports subjective memory impairment and cognitive dysfunction with onset years ago. She believes cognitive function has, overall, improved since discontinuation of bupropion, buspirone, and trazodone but states she is still forgetful. She denies any significant functional limitations. She lives at home and remains independent with all ADLs. MOCA score on 05/28/24 was 27/30 (stable from prior MOCA scores of 26/30 in 2023 and 27/30 on 2021). B12 level was WNL. MRI brain on 04/04/23 revealed chronic microvascular ischemic changes which could contribute to a vascular cognitive impairment. However, I believe her cognitive struggles are likely multifactorial in the setting of anxiety, depression, possible medication side effects, and not always using her CPAP for optimal CASSIE treatment. PLAN: - The patient previously no call no showed for multiple appointments for neuropsychological evaluation via our office. She was later referred to complete neuropsych eval in [place], [place], but also chose not to proceed with this. 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 She denies suicidal or homicidal ideations. PLAN: - Follow up with PCP and counselor for management CASSIE (obstructive sleep apnea) The patient received a new CPAP mask in early 2023. PLAN: - Follow up closely with Dr. Allen's team for management - I encouraged compliance with CPAP nightly while asleep. We discussed possible adverse effects of not utilizing this nightly Imbalance The patient reports chronic imbalance. She completed physical therapy in mid 2022 with some improvement, though not resolved. She does mention a history of neuropathy with paresthesias in the bilateral toes which could contribute to gait instability. Clinical exam reveals decreased proprioception in the great toes, however, sensation is otherwise generally intact. MRI brain on 04/04/23 was unremarkable for cause, and EMG of the BLE on 11/10/23 was essentially normal. Would consider small fiber neuropathy secondary to diabetes. PLAN: - Continue home PT exercises - Fall prevention measures - I encouraged the use of an assistive device during ambulation. The patient has a cane Paresthesias Previously reported in right wrist and thumb raising suspicion for CTS. Resolved. EMG was recommended but declined by the patient at the prior appointment. PLAN: - Monitor clinically Diagnosis and treatment options discussed in detail. All questions answered. The patient verbalizes understanding and is agreeable to the plan. Discussion in layman's terms. Follow up in the office within 4 months; sooner if needed for new or worsening symptoms. Sabrina Cox NP [facility] Advanced Neurology documented in this encounter [facility] 09-03-2024 Note [place] [facility] - [facility] Subjective Renetta Barbosa is a 64 y.o. year old female patient being seen for 1 year follow up, dizziness, hyperlipidemia, and Hypertension Patient Active Problem List Diagnosis Abdominal pain, epigastric Anal skin tag Anxiety with depression BMI 39.0-39.9,adult Chronic obstructive pulmonary disease (CMS/HCC) Diabetes (CMS/HCC) Family history of hepatic cirrhosis Furuncle Gastroparesis due to DM (CMS/HCC) Hemorrhoids GERD (gastroesophageal reflux disease) HTN (hypertension) Hyperlipidemia Hyperplastic polyp of sigmoid colon Hypothyroid Iron deficiency anemia Constipation Mixed incontinence urge and stress Low platelet count Occult blood in stools Peripheral neuropathy Positive colorectal cancer screening using Cologuard test Rectal bleeding RLS (restless legs syndrome) Smoker Anxiety Arthritis Obstructive sleep apnea Cognitive dysfunction Hypersomnia Imbalance Dry eyes Dry mouth Essential tremor Nausea PLMD (periodic limb movement disorder) Stress incontinence HPI Patient is 64-year-old female with prior history of hypertension, type 2 insulin-dependent diabetes mellitus, COPD, hypothyroidism, tobacco use, sleep apnea on CPAP and frequent falls. She was seen last year for dizziness. At that time she had a Holter monitor which did not show significant arrhythmia except for 2 short runs of SVT consisted of 5 beats. She had overall normal echo. According to the notes she was also evaluated by neurology and the evaluation was normal. Her symptoms improved with cutting down on caffeine consumption and increasing her fluids intake. She is here today for follow-up visit. She reports that she has been doing well. She denies any chest pain at rest or with exertion. She reports exertional dyspnea due to COPD, she continues to smoke 1 pack/day and she has been smoking for 50 years. She tried Chantix and Wellbutrin in the past and did not help. She denies orthopnea or paroxysmal nocturnal dyspnea. She denies any further dizziness. She denies palpitations or legs edema or leg discomfort on exertion but she has numbness and tingling in her hands and feet. She reports that her blood pressure at home is good. Usually it is high at the doctor's office. She states that her sugar has been getting under better control and last HbA1c 7.4% next She reports that she lost about 25 pounds over the last year and she lost total of 100 pounds. She reports that she does a lot of walking with her dog ROS All systems were reviewed and they were negative except for the positive findings noted above in the history Past Medical History: Diagnosis Date COPD (chronic obstructive pulmonary disease) (CMS/HCC) Diabetes mellitus (CMS/HCC) Hyperlipidemia Hypertension MENDEZ (nonalcoholic steatohepatitis) Past Surgical History: Procedure Laterality Date SECTION, CLASSIC CHOLECYSTECTOMY TONSILLECTOMY TUBAL LIGATION Family History Problem Relation Name Age of Onset Diabetes Mother Coronary artery disease Mother Lung cancer Father Breast cancer Maternal Grandmother Social History Tobacco Use Smoking status: Every Day Current packs/day: 1.00 Types: Cigarettes Smokeless tobacco: Never Substance Use Topics Alcohol use: Yes Comment: occasional Allergies Allergies Allergen Reactions Capsaicin Tramadol Unknown Trazodone Medications Current Outpatient Medications: owobtauptp-njazqobb-vymwcxuxse (Breztri Aerosphere) 160-9-4.8 mcg/actuation HFA aerosol inhaler, INHALE 2 PUFFS TWICE A DAY DIRECTED for 30, Disp: , Rfl: cevimeline (Evoxac) 30 mg capsule, 1 capsule every 8 (eight) hours., Disp: , Rfl: cholecalciferol, vitamin D3, 25 mcg (1,000 unit) tablet,chewable, 1 (one) time each day at the same time., Disp: , Rfl: dicyclomine (Bentyl) 10 mg capsule, Take 1 capsule by mouth every 6 (six) hours., Disp: , Rfl: dulaglutide (Trulicity) 3 mg/0.5 mL pen injector, as directed Subcutaneous, Disp: , Rfl: estradiol (Vagifem) 10 mcg tablet vaginal tablet, 1 tablet orally twice weekly, Disp: , Rfl: gabapentin (Neurontin) 300 mg capsule, Take 300 mg by mouth in the morning., Disp: , Rfl: insulin regular (HumuLIN R U-500, Conc, Kwikpen) 500 unit/mL (3 mL) CONCENTRATED injection pen, 85 units in morning 85 in afternoon 20 in evening, Disp: , Rfl: Jardiance 25 mg, Take 25 mg by mouth in the morning., Disp: , Rfl: Klayesta 100,000 unit/gram powder, apply to affected area twice a day, Disp: , Rfl: levothyroxine (Synthroid, Levoxyl) 150 mcg tablet, Take 150 mcg by mouth in the morning., Disp: , Rfl: losartan (Cozaar) 25 mg tablet, 25 mg 1 (one) time each day., Disp: , Rfl: melatonin 10 mg tablet, Take 10 mg by mouth at bedtime., Disp: , Rfl: Myrbetriq 50 mg tablet extended release 24 hr, Take 1 tablet by mouth in the morning., Disp: , Rfl: pantoprazole (ProtoNix) 40 mg (more content not included)... [facility] 08-30-2024 History of Present illness Narrative Images from the original note were not included. Tj Dutton MD Obstetrics and Gynecology Patient: Renetta Barbosa, : 1960 (64 y.o.) DOS 08/30/24 Exam Date: 08/30/2024 HPI: She is 2 weeks postop from LEEP. She has obliteration of the vag fornices. She has a small LEEP from th center of th cervix. OATH is neg, but no squamous epithelium present. She is healing well Visit Vitals BP 142/82 Wt 175 lb BMI 32.01 kg/m OB Status Postmenopausal Smoking Status Every Day BSA 1.86 m OB History Para Term AB Living 3 3 3 0 0 3 SAB IAB Ectopic Multiple Live Births 0 0 0 0 3 # Outcome Date GA Lbr Jimbo/2nd Weight Sex Type Anes PTL Lv 3 Term 2 Term 1 Term Obstetric Comments Pap: 06/15-LSIL: HPV Pos Mammo: Done last year per pt @ [facility] Menopausal Medication and Allergies Medication Documentation Review Audit Reviewed by Elizabeth Ulrich MA (Content Writer) on 08/30/24 at 1311 Medication Order Taking? Sig Documenting Provider Last Dose Status albuterol (ProAir RespiClick) 90 mcg/act breath-activated inhaler [id number] No every 4 (four) hours Tj Dutton MD Taking Active beta carotene (vitamin A) 3 MG (46367 UT) capsule [id number] No Take 10,000 Units by mouth in the morning. Tj Dutton MD Taking Active Breztri Aerosphere 160-9-4.8 MCG/ACT aerosol [id number] No INHALE 2 PUFFS TWICE A DAY DIRECTED 30 Tj Dutton MD Taking Active calcium carbonate (Os-Tanner) 1250 (500 Ca) MG tablet [id number] No Take by mouth Daily Tj Dutton MD Taking Active cholecalciferol (Vitamin D3) 200 Unit tablet split tablet [id number] No Take by mouth Daily Tj Dutton MD Taking Active clotrimazole (Lotrimin) 1 % cream [id number] No 1 application every 12 (twelve) hours Tj Dutton MD Taking Active Continuous Blood Gluc Sensor (FreeStyle Jeanne 2 Sensor) misc [id number] No USE DIRECTED Tj Dutton MD Taking Active cyanocobalamin (Vitamin B-12) 100 MCG tablet [id number] No Take 1,000 mcg by mouth in the morning. Tj Dutton MD Taking Active cycloSPORINE (Restasis) 0.05 % ophthalmic emulsion [id number] No every 12 (twelve) hours Tj Dutton MD Taking Active dicyclomine (Bentyl) 10 MG capsule [id number] No Take 10 mg by mouth in the morning and 10 mg at noon and 10 mg in the evening and 10 mg before bedtime. Rajat Aguilar NP Taking Active Patient not taking: Discontinued 08/30/24 1310 Dulaglutide (Trulicity) 3 MG/0.5ML solution auto-injector [id number] Inject 3 mg under the skin every 7 (seven) days Ze Solis MD Active estradiol (Yuvafem) 10 MCG tablet vaginal tablet [id number] INSERT 1 TABLET VAGINALLY TWO TIMES A WEEK FOR 90 DAYS Tj Dutton MD Active gabapentin (Neurontin) 300 MG capsule [id number] TAKE 1 CAPSULE BY MOUTH ONCE A DAY AT BEDTIME Rajat Aguilar NP Active glucagon (Gvoke HypoPen 2-Pack) 1 MG/0.2ML injection [id number] No Inject 1 mg under the skin 1 (one) time if needed Rajat Aguilar NP Taking Active insulin pen needle (B-D ULTRAFINE III SHORT PEN) 31G X 8 mm [facility] [id number] Use as instructed Ze Solis MD Active insulin regular (HumuLIN R U-500 KWIKPEN) 500 UNIT/ML CONCENTRATED injection [id number] INJECT 80 UNITS SUBCUTANEOUSLY TWICE A DAY Ze Solis MD Active Jardiance 25 MG [id number] TAKE 1 TABLET BY MOUTH EVERY DAY Ze Solis MD Active levothyroxine (Synthroid, Levoxyl) 150 MCG tablet [id number] No 1 (one) time each day at the same time Tj Dutton MD Taking Active loratadine (Claritin) 10 MG tablet [id number] Take by mouth Tj Dutton MD Active losartan (Cozaar) 100 MG tablet [id number] Rajat Aguilar NP Active magnesium 30 MG tablet [id number] Take 30 mg by mouth in the morning and 30 mg before bedtime. Tj Dutton MD Active Myrbetriq 25 MG 24 hr tablet [id number] Take 50 mg by mouth Daily Rajat Aguilar NP Active nystatin (Mycostatin) 111766 UNIT/GM powder [id number] APPLY TO AFFECTED AREA TWICE A DAY Tj Dutton MD Active pantoprazole (ProtoNix) 40 MG EC tablet [id number] No 1 (one) time each day at the same time Tj Dutton MD Taking Active pravastatin (Pravachol) 40 MG tablet [id number] No Take 40 mg by mouth at bedtime Rajat Aguilar NP Taking Active primidone (Mysoline) 50 MG tablet [id number] No TAKE 2 TABLETS BY MOUTH TWICE A DAY Tan Sotelo DO Taking Active thiamine (Vitamin B-1) 50 MG tablet [id number] No Take 50 mg by mouth in the morning. Tj Dutton MD Taking Active tiZANidine (Zanaflex) 4 MG tablet [id number] TAKE 1/2-1 TABLET BY MOUTH AT BEDTIME NEEDED Gi Arriaga NP Active triamcinolone (Kenalog) 0.1 % cream [id number] No Apply topically 2 (two) times a day to affected area Tj Dutton MD Taking Active venlafaxine XR (Effexor XR) 150 MG 24 hr capsule [id number] No Take 150 mg by mouth in the morning. Tj Dutton MD Taking Active Zinc Sulfate (ZINC 15 PO) [id number] Take by mouth Tj Dutton MD Active Allergies Allergen Reactions Capsaicin Tramadol Past Medical History: Diagnosis Date Abnormal Pap smear of vagina ADD (attention deficit disorder) Anxiety Autoimmune thyroiditis (CMS/HCC) COPD (chronic obstructive pulmonary disease) (CMS/HCC) Depression (CMS/HCC) Diabetes (CMS/HCC) Essential (primary) hypertension (CMS/HCC) GERD (gastroesophageal reflux disease) High cholesterol (CMS/HCC) Hypoglycemia Hypothyroidism (CMS/HCC) Liver disease [facility] (current) use of insulin (CMS/HCC) Memory changes MENDEZ (nonalcoholic steatohepatitis) Osteoarthritis Thyroid disorder (CMS/HCC) Type 2 diabetes mellitus with hyperglycemia (CMS/HCC) Vitamin D deficiency, unspecified Past Surgical History: Procedure Laterality Date ADENOIDECTOMY 1964 CERVICAL BIOPSY W/ LOOP ELECTRODE EXCISION 07/2024 SECTION, LOW TRANSVERSE CHOLECYSTECTOMY 2015 OTHER SURGICAL HISTORY 1984 Cone biopsy of cervix-1984 TONSILLECTOMY 1964 VAGINAL DELIVERY VAGINAL DELIVERY Physical Exam: Objective Physical Exam Genitourinary: Vulva normal. Cervical exam comments: Cervix is healing well. Pulmonary: Effort: Pulmonary effort is normal. Assessment/Plan ICD-10-CM 1. LGSIL of cervix of undetermined significance R87.612 2. HPV (human papilloma virus) infection B97.7 3. Surgery follow-up Z09 Repeat PAP 6 mos No orders of the defined types were placed in this encounter. documented in this encounter [facility] 07-02-2024 Telephone encounter Note Pt needs PA for Trulicity due to new ins at the beginning of the year. INS in chart. Thanks! [facility] 07-02-2024 Miscellaneous Notes Pt needs PA for Trulicity due to new ins at the beginning of the year. INS in chart. Thanks! documented in this encounter [facility] 07-02-2024 History of Present illness Narrative Renetta Barbosa is a 64 y.o. female No ref. provider found presents with chief complaint of Diabetes and Follow-up HPI: IM : 06/2024 follow up visit on 07/02/2024 A1C 7.7, blood sugar 192 in the office. She has currently on U500, 40 in the morning, 60 at dinner, Trulicity 3 mg weekly, jardiance 25 mg daily. CGM 7-70-25 avg 142. IM : 02/2024 follow up [...] 90 mcg/act breath-activated inhaler Every 4 hours beta carotene (VITAMIN A) 10,000 Units, Daily Breztri Aerosphere 160-9-4.8 MCG/ACT aerosol INHALE 2 PUFFS TWICE A DAY DIRECTED 30 calcium carbonate (Os-Tanner) 1250 (500 Ca) MG tablet Daily cholecalciferol (Vitamin D3) 200 Unit tablet split tablet Daily RT clotrimazole (Lotrimin) 1 % cream 1 application , Every 12 hours Continuous Blood Gluc Sensor (Rocawearyle Jeanne 2 Sensor) misc USE DIRECTED cyanocobalamin (VITAMIN B-12) 1,000 mcg, Daily RT cycloSPORINE (Restasis) 0.05 % ophthalmic emulsion Every 12 hours dicyclomine (BENTYL) 10 mg, 4 times daily doxepin (SINEquan) 10 MG capsule TAKE 1-2 CAPSULES BY MOUTH EVERYDAY AT BEDTIME Dulaglutide (Trulicity) 3 MG/0.5ML solution auto-injector INJECT 3 MG SUBCUTANEOUSLY WEEKLY estradiol (Yuvafem) 10 MCG tablet vaginal tablet [...] SUBCUTANEOUSLY TWICE A DAY Jardiance 25 mg, Oral, Daily levothyroxine (Synthroid, Levoxyl) 150 MCG tablet Every 24 hours loratadine (Claritin) 10 MG tablet Take by mouth losartan (Cozaar) 50 MG tablet TAKE 1 TABLET BY MOUTH EVERY DAY FOR 30 DAYS magnesium 30 mg, 2 times daily Myrbetriq 25 mg, Daily nystatin (Mycostatin) [id number] UNIT/GM powder Topical, 2 times daily, to affected area pantoprazole (ProtoNix) 40 MG EC tablet Every [...] cholesterol (CMS/HCC) Hypoglycemia Hypothyroidism (CMS/HCC) Liver disease [facility] (current) use of insulin (CMS/HCC) Memory changes MENDEZ (nonalcoholic steatohepatitis) Osteoarthritis Thyroid disorder (CMS/HCC) Type 2 diabetes mellitus with hyperglycemia (CMS/HCC) Vitamin D deficiency, unspecified Past Surgical History: Procedure Laterality Date ADENOIDECTOMY 1964 SECTION, LOW TRANSVERSE CHOLECYSTECTOMY 2016 OTHER SURGICAL [...] no Lab Results Component Value Date HGBA1C 7.7 07/02/2024 HGBA1C 7.4 03/05/2024 Lab Results Component Value Date GLU 192 07/02/2024 GLU 187 03/05/2024 GLU 316 (H) 06/23/2023 11/16/2023 3:10 PM 01/30/2024 2:57 PM 02/14/2024 3:53 PM 03/05/2024 2:30 PM 05/28/2024 2:54 PM 05/29/2024 2:47 PM 07/02/2024 1:59 PM Vitals BMI 35.3 kg/m2 35.12 kg/m2 35.12 kg/m2 32.56 kg/m2 31.09 kg/m2 32.37 kg/m2 BSA (m2) 1.96 m2 1.95 m2 1.95 m2 1.88 m2 1.84 m2 1.87 m2 Systolic 140 126 126 144 130 140 Diastolic 79 78 72 87 82 84 Heart Rate 71 95 77 69 96 SpO2 96 % 97 % Resp 18 18 Height (in) 5' 2 5' 2 5' 2 Weight (lb) 193 192 192 178 170 177 Visit Report Report Report Report Report Report Report Report ASSESSMENT AND PLAN: Assessment/Plan Diagnoses and all orders for this visit: Type 2 diabetes mellitus with hyperglycemia, with long-term current use of insulin ([facility]) - POCT glucose manually resulted - POCT glycosylated hemoglobin (Hb A1C) docked device We will continue with U500 40 am and 60 units pm, and I gave her permission to adjust according to her meal size, continue Trulicity 3 mg once weekly, Jardiance 25 mg once. Insulin long-term use ([facility]) Vitamin D deficiency Encounter for dietary consultation High risk medication use Primary hypertension (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) Class 1 obesity due to excess calories with serious comorbidity and body mass index (BMI) of 32.0 to 32.9 in adult Diet and exercise reviewed with the patient Follow up in about 4 months (around 10/30/2024). documented in this encounter [facility] 06-28-2024 Instructions Chely Cantu - 06/28/2024 2:42 PM EST Anemia panel & AFP labs and US RUQ/Abdomen q 6 months with PCP RTC PRN documented in this encounter [facility] 06-28-2024 History of Present illness Narrative Images from the original note were not included. NAME: Renetta Barbosa [facility] NO.: [id number] DATE OF SERVICE: June 28, 2024 ([facility]) Some elements in this clinic note that are critical to medical decision making have been carefully reviewed and included from a prior clinic note dated: June 23, 2023 ([place]) Referring Provider: Shakira Higgins CNP Additional Clinicians involved in Renetta Barbosa's care: Boris Miguel, Leonardo Sung, Benjamin Del Toro CC: Thrombocytopenia ASSESSMENT: This is a 64 year old woman with thrombocytopenia that is [...] multiple accessory spleens. Needs HCC screening PLAN: Anemia panel & AFP labs and US RUQ/Abdomen q 6 months with PCP RTC PRN HPI: CASE HISTORY: Reverse Chronological Order 04/26/2024 - US RUQ/Abdomen: RUQ: Stable nodular echogenic liver Abdomen: Normal spleen 01/04/2024 - US RUQ: Slightly nodular liver margins. Cirrhosis? Slightly prominent liver; nonspecific 06/10/2022 - US RUQ/Spleen: RUQ: The liver is enlarged measuring 23cm. There is heterogeneity of echotexture of the liver along with slight nodularity of the liver surface suggesting diffuse hepatocellular disease such and cirrhosis. No discrete masses were noted. Gallbladder is absent. The remainder the right upper quadrant was unremarkable. Spleen: Spleen is slightly enlarged measuring 12 [...] 08/28/2012 - platelets 141 Updated Visit, June 28, 2024: Renetta returns for her annual follow up. She endorses several episodes of nausea each week. Her appetite has diminished and she also complains of constipation. She started Jardiance recently. She has not been seen by GI since Dr. Davila retired (03/2023). Today's AFP is pending. Updated Visit, June 23, 2023: Renetta returns today. She is not anemic, reports no bleeding. Following with GI, she has no pain on the sides of her stomach with Gas-X. Ordered US for 1 year. Updated Visit, June 25, 2022: Renetta returns today in follow up. US in [facility] with enlarged nodular liver no masses. She [...] iron studies have been drawn at [facility]. She states that she has bleeding hemorrhoids. [...] work-up with CT scans and ultrasounds from [facility]. I was also able to review [...] PERFORMANCE STATUS: 1 PHYSICAL EXAMINATION: Vitals: BP 143/78 Pulse 86 Temp (Src) 97.5 (Temporal) Resp 16 Wt 175 lb 4.3 oz (79.5kg) SpO2 99% Body surface area is 1.86 meters squared. Exam limited to gross visualization [...] petechiae. ALLERGIES: ALLERGIES No Known Allergies MEDICATIONS: empagliflozin (JARDIANCE) 10 mg tablet Take 10 mg by mouth daily with breakfast. MYRBETRIQ 25 mg Tb24 Take 1 tablet by mouth every afternoon. triamcinolone acetonide (KENALOG) 0.1 % cream Apply to affected area two times a day. APPLY TO AFFECTED AREA MAGNESIUM ORAL Take by mouth once daily. BREZTRI AEROSPHERE 160-9-4.8 mcg/actuation HFA aerosol inhaler INHALE 2 PUFFS TWICE A DAY DIRECTED 30 dicyclomine (BENTYL) 10 mg capsule Take 10 mg by mouth four times daily. losartan (COZAAR) 25 mg tablet Take 1 tablet by mouth every afternoon. pravastatin (PRAVACHOL) 40 mg tablet Take 40 mg by mouth daily at bedtime. PRIMIDONE ORAL Take 2 tablets by mouth every 12 hours. venlafaxine ER (EFFEXOR XR) 150 mg 24 hr capsule Take 150 mg by mouth once daily. [employer] JEANNE 2 SENSOR kit bisacodyl EC (DULCOLAX) 5 mg EC tablet Take 20 mg by mouth. pantoprazole DR (PROTONIX) 40 mg tablet Take 40 mg by mouth once daily. gabapentin (NEURONTIN) 300 mg capsule Take 300 mg by mouth daily at bedtime. Estradiol (VAGIFEM) 10 mcg vaginal tablet Use 10 mcg vaginally two times a week. fluticasone (FLONASE) 50 mcg/actuation nasal spray Use 1 [place] in each nostril as needed. levothyroxine (SYNTHROID) 150 mcg tablet Take 150 [...] CALCIUM ORAL Take by mouth once daily. albuterol HFA 90 mcg/actuation HFA Inhale 2 Puffs as instructed as needed. CICLOPIROX TOPICAL Apply to affected area. cevimeline (EVOXAC) 30 mg capsule Take 30 mg by mouth three times a day. busPIRone (BUSPAR) 15 mg tablet Take 15 mg by mouth twice daily as needed. cephALEXin (KEFLEX) 500 mg capsule mupirocin (BACTROBAN) 2 % ointment ondansetron (ZOFRAN) 4 mg tablet Take 4 mg by mouth every 6 hours as needed. SPIRIVA RESPIMAT 2.5 mcg/actuation inhaler INHALE 2 PUFFS BY MOUTH EVERYDAY buPROPion XL (WELLBUTRIN XL) 300 mg 24 hr tablet Take 300 mg by mouth once daily. furosemide (LASIX) 40 mg tablet Take 40 mg by mouth once daily. metFORMIN (GLUCOPHAGE) 1,000 [...] 12 WEEKS (Patient not taking: Reported on 06/28/2024) hydrocortisone (ANUSOL-HC) 2.5 % rectal cream APPLY RECTALLY TWICE DAILY FOR 10 DAYS atorvastatin (LIPITOR) 40 mg tablet Take 40 mg by mouth once daily. LABORATORY VALUES: Hemoglobin (g/dL) Date Value 06/23/2023 13.7 06/11/2021 13.4 Hematocrit (%) Date Value 06/23/2023 43.6 06/11/2021 43.3 WBC (k/uL) Date Value 06/23/2023 5.95 06/11/2021 5.41 Platelet Count (k/uL) Date Value 06/23/2023 140 06/11/2021 142 DIAGNOSIS: (K74.60) Cirrhosis of liver not due to alcohol (HCC) (primary encounter diagnosis) Plan: COMPLETE BLOOD COUNT AND DIFFERENTIAL, COMPREHENSIVE METABOLIC PANEL, IRON AND TIBC, FERRITIN, VITAMIN B12, FOLATE, SERUM, US ABD RIGHT UPPER QUADRANT (K74.5) Biliary cirrhosis (HCC) Plan: COMPLETE BLOOD COUNT AND DIFFERENTIAL, COMPREHENSIVE METABOLIC PANEL, IRON AND TIBC, FERRITIN, VITAMIN B12, FOLATE, SERUM, US ABD RIGHT UPPER QUADRANT (K75.81) MENDEZ (nonalcoholic steatohepatitis) Plan: COMPLETE BLOOD COUNT AND DIFFERENTIAL, COMPREHENSIVE METABOLIC PANEL, IRON AND TIBC, FERRITIN, VITAMIN B12, FOLATE, SERUM, US ABD RIGHT UPPER QUADRANT (D69.59, D73.1) Thrombocytopenia due to hypersplenism Plan: COMPLETE BLOOD COUNT AND DIFFERENTIAL, COMPREHENSIVE METABOLIC PANEL, IRON AND TIBC, FERRITIN, VITAMIN B12, FOLATE, SERUM, US ABD RIGHT UPPER QUADRANT PAST MEDICAL HISTORY Diagnosis Date COPD (chronic obstructive pulmonary disease) (HCC) Diabetes mellitus (HCC) type GERD (gastroesophageal reflux disease) PAST SURGICAL HISTORY Procedure Laterality Date SNGL LIGATE FALLOPIAN TUBE TONSILLECTOMY & ADENOIDECTOMY <AGE 12 Social History Tobacco Use Smoking status: Every Day Current packs/day: 0.50 Types: Cigarettes Passive exposure: Current Smokeless tobacco: Never Vaping Use Vaping status: Never Used Substance Use Topics Alcohol use: Not Currently Drug use: Not Currently FAMILY HISTORY Problem Relation Age of Onset Diabetes Mother Kidney Disease Mother Lung Cancer Father Arthritis Sister Breast Cancer Maternal Grandmother I spent a total of 30 minutes on the date of the service which included preparing to see the patient, [id number] patient care, completing clinical documentation, performing a medically appropriate examination, counseling and educating the patient/family/caregiver, ordering medications, tests, or procedures, independently interpreting results (not separately reported), communicating results to the patient/family/caregiver, and care coordination (not separately reported). Andre Funes MD, CPE Hematology and Oncology Services Provided at: [place], [place] Scribe Attestation: This note was scribed by Chely Cantu on June 28, 2024 under the direction and supervision of Dr. Andre Funes. I attest that all of the information documented is correct to the best of my knowledge. Provider Attestation: I, Andre Funes MD, attest that all information documented by the above scribe is correct, and was supervised by me and under my direction. CC: Shakira Higgins CNP [address] [facility] [id number] documented in this encounter [facility] 06-28-2024 Note HNO ID: [id number] Author: ANDRE FUNES MD Service: ? Author Type: Physician Type: Progress Notes Filed: 06/28/2024 15:34 Note Text: NAME: Renetta Barbosa CLINIC NO.: [id number] DATE OF SERVICE: June 28, 2024 ([place]) Some elements in this clinic note that are critical to medical decision making have been carefully reviewed and included from a prior clinic note dated: June 23, 2023 ([place]ichi) Referring Provider: Shakira Higgins CNP Additional Clinicians involved in Renetta Barbosa's care: Boris Miguel, Leonardo Sung, Benjamin Del Toro CC: Thrombocytopenia ASSESSMENT: This is a 64 year old woman with thrombocytopenia that is [...] multiple accessory spleens. Needs HCC screening PLAN: Anemia panel AND AFP labs and US RUQ/Abdomen q 6 months with PCP RTC PRN HPI: CASE HISTORY: Reverse Chronological Order 04/26/2024 - US RUQ/Abdomen: RUQ: Stable nodular echogenic liver Abdomen: Normal spleen 01/04/2024 - US RUQ: Slightly nodular liver margins. Cirrhosis? Slightly prominent liver; nonspecific 06/10/2022 - US RUQ/Spleen: RUQ: The liver is enlarged measuring 23cm. There is heterogeneity of echotexture of the liver along with slight nodularity of the liver surface suggesting diffuse hepatocellular disease such and cirrhosis. No discrete masses were noted. Gallbladder is absent. The remainder the right upper quadrant was unremarkable. Spleen: Spleen is slightly enlarged measuring 12 [...] 08/28/2012 - platelets 141 Updated Visit, June 28, 2024: Renetta returns for her annual follow up. She endorses several episodes of nausea each week. Her appetite has diminished and she also complains of constipation. She started Jardiance recently. She has not been seen by GI since Dr. Davila retired (03/2023). Today's AFP is pending. Updated Visit, June 23, 2023: Renetta returns today. She is not anemic, reports no bleeding. Following with GI, she has no pain on the sides of her stomach with Gas-X. Ordered US for 1 year. Updated Visit, June 25, 2022: Renetta returns today in follow up. US in [facility] with enlarged nodular liver no masses. She [...] yeast infection to be taken once daily. (more content not included)... [facility] 06-26-2024 Telephone encounter Note Michael DANIELS please and thank you. [facility] 06-26-2024 Miscellaneous Notes Michael DANIELS please and thank you. documented in this encounter [facility] 06-08-2024 Hospital Discharge instructions Patient Education 06/08/2024 12:34:56 Overactive Bladder, Adult Overactive Bladder, Adult Overactive [...] your health care provider. General instructions Take ldvz-jol-jqfauyh and prescription medicines only as told by [...] provider. Document Revised: 01/26/2021 Document Reviewed: 01/26/2021 [employer] Patient Education 2023 Back&. Follow Up Care 04/27/2024 12:54:51 With:JUANITO BREWER, NGA Freedman, URL Address: [address] [place] [address] When:Within 3 Month(s) [facility] Note Patient Education Obstetrics and Gynecology Overactive [...] be caused by other factors, such as: ??? Medical conditions: ? Urinary tract infection. ? Infection of nearby tissues. ? Prostate enlargement. ? Bladder stones, inflammation, or tumors. ? Diabetes. ? Muscle or nerve weakness, especially from these conditions: ? A spinal cord injury. ? Stroke. ? Multiple sclerosis. ? Parkinson's disease. ??? Other causes: ? Surgery on the uterus or urethra. ? Drinking too much caffeine or alcohol. ? Certain medicines, especially those that eliminate extra fluid in the body (diuretics). ? Constipation. What increases the risk? You may be at greater risk for overactive bladder if you: ??? Are an older adult. ??? Smoke. ??? Are going through menopause. ??? Have prostate problems. ??? Have a neurological disease, such as stroke, dementia, Parkinson's disease, or multiple sclerosis (MS). ??? Eat or drink alcohol, spicy food, caffeine, and other things that irritate the bladder. ??? Are overweight or obese. What are the signs or symptoms? Symptoms of this condition include a sudden, strong urge to urinate. Other symptoms include: ??? Leaking urine. ??? Urinating 8 or more times a day. ??? Waking up to urinate 2 or more times overnight. How is this diagnosed? This condition may be diagnosed based on: ??? Your symptoms and medical history. ??? A physical exam. ??? Blood or urine tests to check for possible causes, such as infection. You may also need to see a health care provider who specializes in urinary tract problems. This is called a urologist. How is this treated? Treatment for overactive bladder depends on the cause of your condition and whether it is mild or severe. Treatment may include: ??? Bladder training, such as: ? Learning to control the urge to urinate by following a schedule to urinate at regular intervals. ? Doing Kegel exercises to strengthen the pelvic floor muscles that support your bladder. ??? Special devices, such as: ? Biofeedback. This [...] into the vagina and supports the bladder. ??? Medicines, such as: ? Antibiotics to treat bladder infection. ? Antispasmodics to stop the bladder from releasing urine at the wrong time. ? Tricyclic antidepressants to relax bladder muscles. ? Injections of botulinum toxin type A directly into the bladder tissue to relax bladder muscles. ??? Surgery, such as: ? A device may be implanted to help manage the nerve signals that control urination. ? An electrode may be implanted to stimulate electrical signals in the bladder. ? A procedure may be done to change the shape of the bladder. This is done only in very severe cases. Follow these instructions at home: Eating and drinking ??? Make diet or lifestyle changes recommended by [...] such as fried and sweet foods. Lifestyle ??? Lose weight if needed. ??? Do not use any products that contain nicotine or tobacco. These include cigarettes, chewing tobacco, and vaping devices, such as e-cigarettes. If you need help quitting, ask your health care provider. General instructions ??? Take onpz-hqt-dwglffk and prescription medicines only as told by your health care provider. ??? If you were prescribed an antibiotic medicine, take it as told by your health care provider. Do not stop taking the antibiotic even if you start to feel better. ??? Use any implants or pessary as told by your health care provider. ??? If needed, wear pads to absorb urine leakage. ??? Keep a log to track how much and when you drink, and whe (more content not included)... [facility] 05-29-2024 History of Present illness Narrative Images from the original note were not included. Tj Dutton MD Obstetrics and Gynecology Patient: Renetta Barbosa, : 1960 (64 y.o.) DOS 05/29/24 Exam Date: 05/29/2024 HPI: Pt here for followup PAP Last year her PAP was LGSIL/HPV+ Colpo showed a stenotic os, no visible lesion. Random Bx neg Visit Vitals BP 130/82 Wt 170 lb BMI 31.09 kg/m OB Status Postmenopausal Smoking Status Every Day BSA 1.84 m OB History Para Term AB Living 3 3 3 0 0 3 SAB IAB Ectopic Multiple Live Births 0 0 0 0 3 # Outcome Date GA Lbr Jimbo/2nd Weight Sex Type Anes PTL Lv 3 Term 2 Term 1 Term Obstetric Comments Pap: 06/15-LSIL: HPV Pos Mammo: Done last year per pt @ [facility] Menopausal Medication and Allergies Medication Documentation Review Audit Reviewed by Elizabeth Ulrich MA (Content Writer) on 05/29/24 at 1452 Medication Order Taking? Sig Documenting Provider Last Dose Status albuterol (ProAir RespiClick) 90 mcg/act breath-activated inhaler [id number] every 4 (four) hours Tj Dutton MD Active Patient not taking: Discontinued 05/29/24 1450 beta carotene (vitamin A) 3 MG (99951 UT) capsule [id number] Take 10,000 Units by mouth in the morning. Tj Dutton MD Active Breztri Aerosphere 160-9-4.8 MCG/ACT aerosol [id number] INHALE 2 PUFFS TWICE A DAY DIRECTED 30 Tj Dutton MD Active calcium carbonate (Os-Tanner) 1250 (500 Ca) MG tablet [id number] Take by mouth Daily Tj Dutton MD Active Patient not taking: Discontinued 05/29/24 1451 cholecalciferol (Vitamin D3) 200 Unit tablet split tablet [id number] Take by mouth Daily Tj Dutton MD Active clotrimazole (Lotrimin) 1 % cream [id number] 1 application every 12 (twelve) hours Tj Dutton MD Active Continuous Blood Gluc Sensor (FreeStyle Jeanne 2 Sensor) [facility] [id number] USE DIRECTED Tj Dutton MD Active cyanocobalamin (Vitamin B-12) 100 MCG tablet [id number] Take 1,000 mcg by mouth in the morning. Tj Dutton MD Active cycloSPORINE (Restasis) 0.05 % ophthalmic emulsion [id number] every 12 (twelve) hours Tj Dutton MD Active dicyclomine (Bentyl) 10 MG capsule [id number] Take 10 mg by mouth in the morning and 10 mg at noon and 10 mg in the evening and 10 mg before bedtime. Rajat Aguilar NP Active doxepin (SINEquan) 10 MG capsule [id number] TAKE 1-2 CAPSULES BY MOUTH EVERYDAY AT BEDTIME Mary Allen DO Active Patient not taking: Discontinued 05/29/24 1451 Dulaglutide (Trulicity) 3 MG/0.5ML solution auto-injector [id number] INJECT 3 MG SUBCUTANEOUSLY WEEKLY Ze Solis MD Active estradiol (Vagifem) 10 MCG tablet vaginal tablet [id number] 1 tablet Vaginal Two times a Week for 90 days Tj Dutton MD Active gabapentin (Neurontin) 300 MG capsule [id number] TAKE 1 CAPSULE BY MOUTH ONCE A DAY AT BEDTIME Rajat Aguilar NP Active glucagon (Gvoke HypoPen 2-Pack) 1 MG/0.2ML injection [id number] Inject 1 mg under the skin 1 (one) time if needed Rajat Aguilar NP Active insulin pen needle (B-D ULTRAFINE III SHORT PEN) 31G X 8 mm [facility] [id number] Use as instructed Ze Solis MD Active insulin regular (HumuLIN R U-500 KWIKPEN) 500 UNIT/ML CONCENTRATED injection [id number] INJECT 80 UNITS SUBCUTANEOUSLY TWICE A DAY Ze Solis MD Active Jardiance 25 MG [id number] TAKE 1 TABLET BY MOUTH EVERY DAY Ze Solis MD Active levothyroxine (Synthroid, Levoxyl) 150 MCG tablet [id number] 1 (one) time each day at the same time Tj Dutton MD Active loratadine (Claritin) 10 MG tablet [id number] Take by mouth Tj Dutton MD Active Patient not taking: Discontinued 05/29/24 1451 losartan (Cozaar) 50 MG tablet [id number] TAKE 1 TABLET BY MOUTH EVERY DAY FOR 30 DAYS Rajat Aguilar NP Active Patient not taking: Discontinued 05/29/24 1450 magnesium 30 MG tablet [id number] Take 30 mg by mouth in the morning and 30 mg before bedtime. Tj Dutton MD Active Myrbetriq 25 MG 24 hr tablet [id number] Take 25 mg by mouth Daily Rajat Aguilar NP Active nystatin (Mycostatin) 507117 UNIT/GM powder [id number] APPLY TO AFFECTED AREA TWICE A DAY Tj Dutton MD Active pantoprazole (ProtoNix) 40 MG EC tablet [id number] 1 (one) time each day at the same time Tj Dutton MD Active pravastatin (Pravachol) 40 MG tablet [id number] Take 40 mg by mouth at bedtime Rajat Aguilar NP Active primidone (Mysoline) 50 MG tablet [id number] TAKE 2 TABLETS BY MOUTH TWICE A DAY Tan Sotelo DO Active thiamine (Vitamin B-1) 50 MG tablet [id number] Take 50 mg by mouth in the morning. Tj Dutton MD Active triamcinolone (Kenalog) 0.1 % cream [id number] Apply topically 2 (two) times a day to affected area Tj Dutton MD Active venlafaxine XR (Effexor XR) 150 MG 24 hr capsule [id number] Take 150 mg by mouth in the morning. Tj Dutton MD Active Zinc Sulfate (ZINC 15 PO) [id number] Take by mouth Tj Dutton MD Active Patient not taking: Discontinued 05/29/24 1451 Allergies Allergen Reactions Capsaicin Tramadol Past Medical History: Diagnosis Date Abnormal Pap smear of vagina ADD (attention deficit disorder) Anxiety Autoimmune thyroiditis (CMS/HCC) COPD (chronic obstructive pulmonary disease) (CMS/HCC) Depression (CMS/HCC) Diabetes (CMS/HCC) Essential (primary) hypertension (CMS/HCC) GERD (gastroesophageal reflux disease) High cholesterol (CMS/HCC) Hypoglycemia Hypothyroidism (CMS/HCC) Liver disease [facility] (current) use of insulin (CMS/HCC) Memory changes MENDEZ (nonalcoholic steatohepatitis) Osteoarthritis Thyroid disorder (CMS/HCC) Type 2 diabetes mellitus with hyperglycemia (CMS/HCC) Vitamin D deficiency, unspecified Past Surgical History: Procedure Laterality Date ADENOIDECTOMY 1964 SECTION, LOW TRANSVERSE CHOLECYSTECTOMY 2016 OTHER SURGICAL HISTORY 1984 Cone biopsy of cervix-1984 TONSILLECTOMY 1964 VAGINAL DELIVERY VAGINAL DELIVERY Physical Exam: Objective Physical Exam Constitutional: Appearance: Normal appearance. Genitourinary: Vulva normal. No vaginal discharge or bleeding. Right Adnexa: not palpable. Left Adnexa: not palpable. No cervical lesion. Uterus is not enlarged or tender. Breasts: Right: Normal. Left: Normal. Pulmonary: Effort: Pulmonary effort is normal. Abdominal: Palpations: Abdomen is soft. Neurological: Mental Status: She is alert. Associated Treatments and Results - ICD-10-CM 1. LGSIL of cervix of undetermined significance R87.612 2. HPV (human papilloma virus) infection B97.7 3. Cervical cancer screening Z12.4 IGP, APT HPV,RFX 16/18,45 4. Screening for HPV (human papillomavirus) Z11.51 IGP, APT HPV,RFX 16/18,45 5. Other screening mammogram Z12.31 Bilateral screening mammogram with tomosynthesis Assessment/Plan Orders Placed This Encounter Procedures Bilateral screening mammogram with tomosynthesis U/S and spot compression if indicated Standing Status: Future Standing Expiration Date: 07/26/2025 Order Specific Question: Reason for exam: Answer: screen IGP, APT HPV,RFX 16/18,45 Order Specific Question: Print requisition? Answer: Yes documented in this encounter [facility] 05-28-2024 History of Present illness Narrative Images from the original note were not included. Chief Complaint Patient presents with Tremors Cognitive Dysfunction imbalance Subjective Renettamian Barbosa, 64 y.o., female The patient presents today for follow up. She states memory has improved some since the last seen. She drives without safety concerns and remains independent with all ADLs. Denies getting lost. States that tremor is well controlled on primidone and gabapentin. Tremor is more significant when she first gets up then improves after she takes her morning medication. She does admit to pain in the right wrist and thumb and states she has been dropping things. Denies this on the left. Denies any upper extremity weakness otherwise. Denies falls. She denies any further concerns. MOCA today recall 07/25 Review of Systems Constitutional: Negative for appetite change, fatigue and fever. Respiratory: Negative for cough, shortness of breath and wheezing. Cardiovascular: Negative for chest pain, palpitations and leg swelling. Gastrointestinal: Negative for abdominal pain, constipation, diarrhea and nausea. Musculoskeletal: Positive for arthralgias and myalgias. Negative for gait problem. Positive for pain in the right wrist and thumb. Neurological: Negative for dizziness and headaches. Positive for tingling/numbness in the bilateral toes. Admits memory loss, balance difficulty, and action tremor. Past Medical History: Diagnosis Date Abnormal Pap smear of vagina ADD (attention deficit disorder) Anxiety Autoimmune thyroiditis (CMS/HCC) COPD (chronic obstructive pulmonary disease) (CMS/HCC) Depression (CMS/HCC) Diabetes (CMS/HCC) Essential (primary) hypertension (CMS/HCC) GERD (gastroesophageal reflux disease) High cholesterol (CMS/HCC) Hypoglycemia Hypothyroidism (CMS/HCC) Liver disease terminal gauger (current) use of insulin (CMS/HCC) Memory changes MENDEZ (nonalcoholic steatohepatitis) Osteoarthritis Thyroid disorder (CMS/HCC) Type 2 diabetes mellitus with hyperglycemia ([facility]) Vitamin D deficiency, unspecified Past Surgical History: Procedure Laterality Date ADENOIDECTOMY 1965 SECTION, LOW TRANSVERSE CHOLECYSTECTOMY 2016 OTHER SURGICAL HISTORY 1985 Cone biopsy of cervix-1984 TONSILLECTOMY 1964 VAGINAL DELIVERY VAGINAL DELIVERY Family History Problem Relation Name Age of Onset Diabetes Mother Kidney disease Mother Obesity Mother Osteoarthritis Father Social History Tobacco Use Smoking status: Every Day Types: Cigarettes Smokeless tobacco: Never Tobacco comments: Thinks about quitting Substance Use Topics Alcohol use: Not Currently Comment: caffeine 1-2 cups/day; coffee Allergies: Capsaicin and Tramadol Vitals: 05/28/24 1454 BP: 144/87 Pulse: 69 Body mass index is 32.56 kg/m . weight: 178 lb Neurologic exam: Mental status: Well-nourished, well-developed and in no acute distress. Grossly oriented to person, place and time. MOCA today is 27/30, recall 3/5. Language is fluent without aphasia. Attention and concentration are normal. Fund of knowledge is appropriate for level of education. Cranial nerves: CN II: Visual acuity is normal. Visual knight full to confrontation. CN III, IV, : pupils equal round and reactive to light. Extraocular movements intact. No ptosis present. CN V: Facial sensation is normal. CN VII: Full and symmetric facial movement. CN VIII: Hearing is intact. CN IX and X: Palate elevates symmetrically. CN XI: Shoulder shrug is normal bilaterally. CN XII: Tongue is midline without atrophy or fasciculation. Motor: RUE Strength deltoid , biceps , triceps , wrist extensors , wrist flexor 5/5 , bi lead strength 4/5. LUE Strength deltoid , biceps , triceps , wrist extensors , wrist flexor , bi lead strength 5/5. RLE Strength illopsoas, quadriceps, tibialis anterior, and gastrocnemius strength 5/5. LLE Strength illopsoas, quadriceps, tibialis anterior, and gastrocnemius strength 5/5. Normal tone x4 extremities. Bulk is normal. Subtle to mild intention tremor of the bilateral hands. No resting tremor, rigidity, or bradykinesia Sensory: Sensation is intact to light touch throughout distal extremities. Reflexes: RUE biceps reflex 2+ , brachioradialis reflex 2+. LUE biceps reflex 2+ , brachioradialis reflex 2+. RLE knee reflex 1+. LLE knee reflex 1+. Batista's Sign negative. Coordination: Fxquzo-uj-rukx testing is normal Rapid alternating movements are normal Gait: Normal Review and summary of old records: MOCA on 05/28/24 is 27/30 recall 3/ EMG of the BLE on 11/10/2023: Normal EMG. Labs on 11/15/2023: CK, myoglobin, magnesium are unremarkable Labs on 06/23/23: CBC unremarkable, CMP demonstrates elevated glucose - unsure of fasting status, and mildly low sodium 133 (advised patient to review with PCP), B12 586 MOCA at [facility] on 08/16/23: MRI brain w and w/o contrast at [facility] on 04/04/23: Within limitations of motion artifact which moderately limited multiple pulse sequences, no discrete acute intracranial abnormalities or abnormal intracranial enhancement identified. Mild chronic microvascular ischemic changes were noted. Labs at [facility] on 10/19/22: CBC generally unremarkable; CMP generally unremarkable (creatinine 1.04, GFR 54); CK 68; TSH decreased at 0.292; B12 912 MOCA at [facility] on 03/09/22: CT of the brain without contrast on 05/17/21: Unremarkable CT of the cervical spine without contrast on 05/17/21: No fracture or malalignment noted. Assessment/Plan Diagnoses and all orders for this visit: Essential tremor The patient has postural and intention tremor, most consistent with essential tremor. Improved with increased dose of Primidone. No signs of Parkinsonism. PLAN: - Continue primidone 100 mg by mouth twice a day. Side effects discussed - The patient is taking Gabapentin for other purposes, however, this may also provide benefit for tremor Cognitive dysfunction The patient reports subjective memory impairment and cognitive dysfunction. She states this affects her short-term and long-term memory. She believes cognitive function has improved overall since discontinuation of bupropion, buspirone, and trazodone though states she is still forgetful. She admits that she continues to follow a counselor. Overall, no functional limitations. She lives at home and remains independent with all ADLs. MOCA on 08/16/23 was 26/30 (fairly stable from prior MOCA score of 27/30 on 03/09/22). B12 level normal. MRI brain on 04/04/23 was nonacute but did reveal chronic microvascular ischemic changes which could contribute to a vascular type dementia. However, I believe her cognitive struggles to be multifactorial in the setting of anxiety, potential medication side effects, and depression, and poor sleep. MOCA today is overall stable with a score of 27/30. PLAN: - Referred for neuropsych evaluation to Teresa (She did [facility] multiple appointments with Dr. Siegel). Contact info was provided for the patient to call and schedule however she declined to proceed with this. - Could consider the addition of donepezil in the future. - Recommended adequate hydration, sleep hygiene, stimulating activity and compensation techniques Anxiety History of anxiety and depression which certainly could contribute to a pseudodementia. The patient denies suicidal or homicidal ideations. She was evaluated by Dillan Gutierrez DO, who reportedly felt she did not need psychiatry and recommended counseling. She admits that she is now following with them. PLAN: - Continue close follow up with PCP and counseling for ongoing management CASSIE (obstructive sleep apnea) The patient received a new CPAP mask in early 2023 and utilizes this nightly. PLAN: - Follow closely with sleep medicine (Dr. Allen) for management - I encouraged compliance with CPAP Imbalance The patient reports chronic imbalance. She completed physical therapy in mid 2022 with some improvement, though not resolved. She does mention a history of neuropathy with paresthesias in the bilateral toes which could contribute to gait instability. Clinical exam reveals decreased prioprioception in the great toes, however, sensation in generally intact. MRI brain on 04/04/23 was unremarkable for cause and EMG of the BLE on 11/10/23 was essentially normal. PLAN: - Fall prevention discussed - Continue home PT exercise - I encouraged the use of an assistive device during ambulation. The patient has a cane Paresthesias The patient presents today with complaints of right wrist and thumb pain with decreased bi lead strength notable on clinical exam. While changes may be arthritic in nature, symptoms do raise suspicion for CTS. PLAN: - Recommended further evaluation with EMG though the patient would like to further discuss this with her PCP next month. Follow up in 2-3 months or sooner if symptoms worsen, fail to improve, or should a new neurological concern arise. Pt has been fully educated on their lab results, diagnosis, treatment options, follow up plan, and return instructions documented in this encounter [facility] 04-26-2024 Telephone encounter Note [facility] needs additional order for US to include the spleen with her abdomen US every 6 months. The other US Abd will not include the spleen. If needed each time, will need 2 orders sent each time. Fax to US directly: [phone] Mio: please review and sign Luz Hamilton RN [facility] 04-26-2024 Miscellaneous Notes [facility] needs additional order for US to include the spleen with her abdomen US every 6 months. The other US Abd will not include the spleen. If needed each time, will need 2 orders sent each time. Fax to US directly: [phone] Mio: please review and sign Luz Hamilton RN documented in this encounter [facility] 04-23-2024 Telephone encounter Note Pt calling to [...] will allow her. Mio: TOYIN Hamilton RN [facility] 04-23-2024 Miscellaneous Notes Pt calling to [...] TOYIN Hamilton RN [facility] [facility] History of Present illness Narrative [...] Every 12 hours Continuous Blood Gluc Sensor (FreeStyle Jeanne 2 Sensor) misc USE DIRECTED cyanocobalamin [...] 30 mg, 2 times daily nystatin (Mycostatin) [id number] UNIT/GM powder APPLY TO AFFECTED AREA TWICE [...] (CMS/HCC) Hypoglycemia Hypothyroidism (CMS/HCC) Liver disease terminal gauger (current) use of insulin (CMS/HCC) Memory changes [...] hyperglycemia, with long-term current use of insulin ([facility]) - POCT glucose manually resulted - [...] Jardiance 25 mg once Insulin long-term use ([facility]) Vitamin D deficiency Encounter for dietary consultation High risk medication use Primary hypertension ([facility]) Hypoglycemia Class 2 severe obesity due to excess calories with serious comorbidity and body mass index (BMI) of 35.0 to 35.9 in adult ([facility]) Diet and exercise reviewed with the patient Microalbuminuria Continue with Cozaar 25 mg Hypothyroidism, primary Continue levothyroxine 150 mcg Follow up in about 4 months (around 07/06/2024). documented in this encounter [facility] 03-01-2024 History of Present illness Narrative SW met with pt at this time in [...] actions or behaviors. documented in this encounter [facility] 02-29-2024 Hospital Discharge instructions Patient Education 02/29/2024 [...] your health care provider. General instructions Take utmz-drs-zobvmnl and prescription medicines only as told by [...] provider. Document Revised: 01/26/2021 Document Reviewed: 01/26/2021 [employer] Patient Education 2023 Back&. Follow Up Care 01/02/2024 12:35:13 With:NGA WILKINS PA-C, URL Address: [address] [place] [address] When:3 months [facility] [place] 02-29-2024 Note Patient Education Obstetrics and [...] health care provider. General instructions ? Take xmca-sag-ebypnif and prescription medicines only as told by [...] your health care (more content not included)... [facility] 02-14-2024 History of Present illness Narrative Images from the original note were not included. Chief Complaint Patient presents with Sleep Apnea Subjective Renetta Barbosa, 64 y.o., female HPI She states that she is using her cpap machine nightly but she states that she takes it off in the middle of the night. She finds it off of her face the next morning. She gets a stuffy nose and it makes it hard to breathe. She states that she is not as tired as she was. She is sleeping 6-7 hours a night. Her dog is waking her up and she is getting up several times for the bathroom. Her dog is 8 years old. She is able to go back to sleep. Her blood sugars have been better. She broke 2 bones in her foot and is not exercising right now or walking her dog. She is not on the Trazodone any longer. She did not want to take it any longer and asked to go off of it. She used to take it when she would go to her daughter's house in [place] but she once forgot it there so she has not been taking it. She is has 3 other people living with her. Her grand daughter, boyfriend and his child. Past Medical History: Diagnosis Date Abnormal Pap smear of vagina ADD (attention deficit disorder) Anxiety COPD (chronic obstructive pulmonary disease) (CMS/HCC) Depression (CMS/HCC) Diabetes (CMS/HCC) GERD (gastroesophageal reflux disease) High cholesterol (CMS/HCC) Hypothyroidism (CMS/HCC) Liver disease Memory changes MENDEZ (nonalcoholic steatohepatitis) Osteoarthritis Thyroid disorder (CMS/HCC) Past Surgical History: Procedure Laterality Date ADENOIDECTOMY 1964 SECTION, LOW TRANSVERSE CHOLECYSTECTOMY 2016 OTHER SURGICAL HISTORY 1984 Cone biopsy of cervix-1984 TONSILLECTOMY 1965 VAGINAL DELIVERY VAGINAL DELIVERY Family History Problem Relation Name Age of Onset Diabetes Mother Kidney disease Mother Obesity Mother Osteoarthritis Father Social History Tobacco Use Smoking status: Every Day Types: Cigarettes Smokeless tobacco: Never Tobacco comments: Thinks about quitting Substance Use Topics Alcohol use: Not Currently Comment: caffeine 1-2 cups/day; coffee Allergies: Capsaicin and Tramadol General: No fever or chills HEENT: No nasal congestion or runny nose Pulmonary: No shortness of breath or cough Cardiovascular: No chest pain or palpitations GI: No nausea or vomiting : No dysuria or hematuria Musculoskeletal: No new aches or pains or muscle weakness Infectious: no recurrent fevers or infections Dermatologic: No rashes or skin lesions Neurologic: No new headaches or dizziness Vitals: 02/14/24 1553 BP: 126/78 Pulse: 95 SpO2: 96% There is no height or weight on file to calculate BMI. Neurologic exam: General: Normal body habitus, cooperative, pleasant Mental status: Awake, alert to person, place and time. Recent and remote memory are intact. Attention and concentration are normal. Fund of knowledge is appropriate for level of education. HEENT: NC/AT Cranial nerves: CN II: Visual knight full to confrontation. No loss of vision CN III, IV, : pupils equal round and reactive to light. Extraocular movements intact. No ptosis present. CN V: Facial sensation is normal. CN VII: Full and symmetric facial movement. CN VIII: Hearing is normal CN IX and X: Palate elevates symmetrically. CN XI: Shoulder shrug is normal bilaterally. CN XII: Tongue is midline without atrophy or fasciculation. Speech: Clear and fluent no aphasia or dysarthria Pronator drift: Negative bilateral upper extremity Coordination: Intact, no signs of dysmetria Good finger to nose and rapid alternating movements Sensory: Sensation is intact to light, temperature and vibratory touch throughout four extremities. Motor: LUE 5/5 RUE 5/5 LLE 5/5, distal left foot not tested as she has a boot on RLE 5/5 Tone: Physiologic, no tremor, bradykinesia or rigidity DTR: Bilateral Biceps 2/4 Bilateral BR 2/4 Bilateral Patellar 2/4 No spasticity Gait: Has a boot on using a cane as she fractured bones in her left foot Romberg's Negative Review and summary of old records: Assessment/Plan Diagnoses and all orders for this visit: Primary insomnia - doxepin (SINEquan) 10 MG capsule; 1-2 po q hs CASSIE (obstructive sleep apnea) Hypersomnia Obesity due to excess calories, unspecified classification, unspecified whether serious comorbidity present 1. CASSIE (obstructive sleep apnea) - G47.33 (Primary) 2. Hypersomnia - G47.10 3. Inadequate sleep hygiene - Z72.821 4. Insomnia - G47.00 5. Periodic limb movement disorder (PLMD) - G47.61 64-year-old female with a moderate obstructive sleep apnea leading to daytime hypersomnolence and snoring. She has insomnia but went off of her trazodone. She states that her grand-daughter and her sig other and his son are living with them. She is using her machine more but not using it regularly. Per her compliance report she is using it 40% of the time greater than 4 hours and only putting it on 62% of the time. She is average 4 hours and 40 minutes and 1.0. She is not compliant. She has underlying depression and anxiety but went off of a bunch of her depression meds. She does have underlying obesity and has been working on diet exercise weight loss and has lost some significant weight She has improved her sleep hygiene some but family it the house is complicating that picture. They are supposed to move out soon. Set sleep schedule 830 she needs to go to bed around 1230 and set those as set sleep times. S. . Plan Get the machine on every single night Do a trial of doxepin since she is now off the trazodone see if that works better Continue with the weight loss She may need to evict her granddaughter from her house Patient needs to set her sleep schedule is from 12:30 AM to 8:30 AM and not go to bed at 10 her cardiovascular exercise and work on diet exercise weight loss She is to get her machine on every single night The patient was councelled on the risks of stroke, [place], and sudden with CASSIE, along with the need for compliance with CPAP/BiPAP treatment. This was discussed with the patient, all questions were answered and they agreed with the treatment plan. The patient is to call with any worsening of the condition or new symptoms. The diagnosis was all discussed with the patient. All questions were answered and they agreed with the treatment plan. Patient will call if there are any new issues or questions. Pt has been fully educated on their diagnosis, treatment options, follow up plan, and return instructions Return to clinic: 3 months documented in this encounter [facility] 01-30-2024 History of Present illness Narrative Images from the original note were not included. Chief Complaint Patient presents with Tremors Anxiety Cognitive concern Subjective Renetta Barbosa, 64 y.o., female The patient presents today for follow up. She again denies neuropsych evaluation in [place]. She drives without safety concerns. Denies getting lost. She states memory has not worsened since the last seen. Admits to being forgetful and misplacing items. Continues on primidone and gabapentin and states these are helpful for her tremor. Tremor is more apparent when she first gets up then improves after she takes her morning medication. She denies dropping things. Admits cramping in her extremities that has continued to be bothersome, taking Pravastatin. Denies falls. She denies any further concerns. Review of Systems Constitutional: Negative for appetite change, fatigue and fever. Respiratory: Negative for cough, shortness of breath and wheezing. Cardiovascular: Negative for chest pain, palpitations and leg swelling. Gastrointestinal: Negative for abdominal pain, constipation, diarrhea and nausea. Musculoskeletal: Positive for arthralgias and myalgias. Negative for gait problem. Neurological: Negative for dizziness and headaches. Positive for tingling/numbness in the bilateral toes. Admits memory loss, balance difficulty, and action tremor Past Medical History: Diagnosis Date Abnormal Pap smear of vagina ADD (attention deficit disorder) Anxiety COPD (chronic obstructive pulmonary disease) (CMS/HCC) Depression (CMS/HCC) Diabetes (CMS/HCC) GERD (gastroesophageal reflux disease) High cholesterol (CMS/HCC) Hypothyroidism (CMS/HCC) Liver disease Memory changes MENDEZ (nonalcoholic steatohepatitis) Osteoarthritis Thyroid disorder (CMS/HCC) Past Surgical History: Procedure Laterality Date ADENOIDECTOMY 1964 SECTION, LOW TRANSVERSE CHOLECYSTECTOMY 2016 OTHER SURGICAL HISTORY 1984 Cone biopsy of cervix-1984 TONSILLECTOMY 1964 VAGINAL DELIVERY VAGINAL DELIVERY Family History Problem Relation Name Age of Onset Diabetes Mother Kidney disease Mother Obesity Mother Osteoarthritis Father Social History Tobacco Use Smoking status: Every Day Types: Cigarettes Smokeless tobacco: Never Tobacco comments: Thinks about quitting Substance Use Topics Alcohol use: Not Currently Comment: caffeine 1-2 cups/day; coffee Allergies: Capsaicin and Tramadol There were no vitals filed for this visit. Body mass index is 35.12 kg/m . weight: 192 lb Neurologic exam: Mental status: Well-nourished, well-developed and in no acute distress. Grossly oriented to person, place and time. Previous MOCA 26/30. Language is fluent without aphasia. Attention and concentration are normal. Fund of knowledge is appropriate for level of education. Cranial nerves: CN II: Visual acuity is normal. Visual knight full to confrontation. CN III, IV, : pupils equal round and reactive to light. Extraocular movements intact. No ptosis present. CN V: Facial sensation is normal. CN VII: Full and symmetric facial movement. CN VIII: Hearing is intact. CN IX and X: Palate elevates symmetrically. CN XI: Shoulder shrug is normal bilaterally. CN XII: Tongue is midline without atrophy or fasciculation. Motor: RUE Strength deltoid , biceps , triceps , wrist extensors , wrist flexor , bi lead strength 5/5. LUE Strength deltoid , biceps , triceps , wrist extensors , wrist flexor , bi lead strength 5/5. RLE Strength illopsoas, quadriceps, tibialis anterior, and gastrocnemius strength 5/5. LLE Strength illopsoas, quadriceps, tibialis anterior, and gastrocnemius strength 5/5. Normal tone x4 extremities. Bulk is normal. Subtle to mild intention tremor of the bilateral hands. No resting tremor, rigidity, or bradykinesia Sensory: Sensation is intact to light touch throughout distal extremities. Reflexes: RUE biceps reflex 2+ , brachioradialis reflex 2+. LUE biceps reflex 2+ , brachioradialis reflex 2+. RLE knee reflex 1+. LLE knee reflex 1+. Batista's Sign negative. Coordination: Igmpvv-nl-atuj testing is normal Rapid alternating movements are normal Gait: Normal Review and summary of old records: EMG of the BLE on 11/10/2023: Normal EMG. Labs on 11/15/2023: CK, myoglobin, magnesium are unremarkable Labs on 06/23/23: CBC unremarkable, CMP demonstrates elevated glucose - unsure of fasting status, and mildly low sodium 133 (advised patient to review with PCP), B12 586 MOCA at [facility] on 08/16/23: MRI brain w and w/o contrast at [facility] on 04/04/23: Within limitations of motion artifact which moderately limited multiple pulse sequences, no discrete acute intracranial abnormalities or abnormal intracranial enhancement identified. Mild chronic microvascular ischemic changes were noted. Labs at [facility] on 10/19/22: CBC generally unremarkable; CMP generally unremarkable (creatinine 1.04, GFR 54); CK 68; TSH decreased at 0.292; B12 912 MOCA at [facility] on 03/09/22: CT of the brain without contrast on 05/17/21: Unremarkable CT of the cervical spine without contrast on 05/17/21: No fracture or malalignment noted. Assessment/Plan Diagnoses and all orders for this visit: Essential tremor The patient has postural and intention tremor, most consistent with essential tremor. Improved with increased dose of Primidone. No signs of Parkinsonism. PLAN: - Continue primidone 100 mg by mouth twice a day. Side effects discussed - The patient is taking Gabapentin for other purposes, however, this may also provide benefit for tremor Cognitive dysfunction The patient reports subjective memory impairment and cognitive dysfunction. She states this affects her short-term and long-term memory. She believes cognitive function has improved overall since discontinuation of bupropion, buspirone, and trazodone though states she is still forgetful. She admits that she continues to follow a counselor. Overall, no functional limitations. She lives at home and remains independent with all ADLs. MOCA on 08/16/23 is 26/30 (fairly stable from prior MOCA score of 27/30 on 03/09/22). B12 level normal. MRI brain on 04/04/23 was nonacute but did reveal chronic microvascular ischemic changes which could contribute to a vascular type dementia. However, I believe her cognitive struggles to be multifactorial in the setting of anxiety, potential medication side effects, and depression, and poor sleep. PLAN: - MOCA at follow up - Referred for neuropsych evaluation to [facility] ([facility] multiple appointments with Dr. Siegel). Contact info provided for the patient to call and schedule. - Recommended adequate hydration, sleep hygiene, stimulating activity and compensation techniques Anxiety History of anxiety and depression which certainly could contribute to a pseudodementia. The patient denies suicidal or homicidal ideations. She was evaluated by Dillan Gutierrez DO, who reportedly felt she did not need psychiatry and recommended counseling. She admits that she is now following with them. PLAN: - Continue close follow up with PCP and counseling for ongoing management CASSIE (obstructive sleep apnea) The patient received a new CPAP mask in early 2023 and utilizes this nightly. PLAN: - Follow closely with sleep medicine (Dr. Allen) for management - I encouraged compliance with CPAP Imbalance The patient reports chronic imbalance. She completed physical therapy in mid 2022 with some improvement, though not resolved. She does mention a history of neuropathy with paresthesias in the bilateral toes which could contribute to gait instability. Clinical exam reveals decreased prioprioception in the great toes, however, sensation in generally intact. MRI brain on 04/04/23 was unremarkable for cause and EMG of the BLE on 11/10/23 was essentially normal. PLAN: - Fall prevention discussed - Continue home PT exercise - I encouraged the use of an assistive device during ambulation. The patient has a cane Muscle cramping The patient previously reported muscle cramping throughout her body including her legs and bilateral hands and feet. The patient reports a history of neuropathy (reportedly diagnosed in [place]) though EMG of the BLE here did not demonstrate this. Symptoms have, overall, improved but not completely resolved with re-initiation of Gabapentin. CK, myoglobin and magnesium were unremarkable. PLAN: - Patient to discuss statin use with PCP - Continue gabapentin 300 mg PO QHS. Side effects discussed - Adequate hydration and stretching were encouraged Follow up in 3-4 months or sooner if symptoms worsen, fail to improve, or should a new neurological concern arise. Pt has been fully educated on their lab results, diagnosis, treatment options, follow up plan, and return instructions HPI documented in this encounter [facility] 01-02-2024 Hospital Discharge instructions Patient Education 01/02/2024 [...] your health care provider. General instructions Take wdsr-agz-vyaspuq and prescription medicines only as told by [...] provider. Document Revised: 01/26/2021 Document Reviewed: 01/26/2021 [employer] Patient Education 2022 Back&. Follow Up Care 10/31/2023 12:01:52 With:JUANITO BREWER, NGA Freedman, URL Address: [address] [place] [address] When:3 months [facility] 01-02-2024 Note Patient Education Obstetrics and Gynecology [...] health care provider. General instructions ? Take dzzo-lwm-nwovfhw and prescription medicines only as told by [...] your health care (more content not included)... [facility] 12-05-2023 Hospital Discharge instructions Patient Education [...] provider. Document Revised: 09/17/2021 Document Reviewed: 09/17/2021 [employer] Patient Education 2022 Back&. Follow Up Care 11/14/2023 12:46:23 With:JUANITO BREWER, NGA Freedman, URL Address: [address] [place] [address] When:Within 2 Week(s) [facility] 12-05-2023 Note Patient Education Obstetrics and [...] provider. Document Revised: 09/17/2021 Document Reviewed: 09/17/2021 [employer] Patient Education ? 2022 Back&. [facility] 11-28-2023 Hospital Discharge instructions Patient Education [...] provider. Document Revised: 09/17/2021 Document Reviewed: 09/17/2021 [employer] Patient Education 2022 Back&. Follow Up Care 09/14/2023 15:08:51 With:NGA WILKINS PA-C, URL Address: [address] [place] [address] When: Unknown [facility] 11-28-2023 Note Patient Education Obstetrics and [...] provider. Document Revised: 09/17/2021 Document Reviewed: 09/17/2021 [employer] Patient Education ? 2022 Back&. [facility] 11-21-2023 Hospital Discharge instructions Patient Education [...] your health care provider. General instructions Take ylnq-zpm-qrvwekl and prescription medicines only as told by [...] provider. Document Revised: 01/26/2021 Document Reviewed: 01/26/2021 [employer] Patient Education 2022 Back&. Follow Up Care 09/14/2023 15:07:45 With:JUANITO BREWER, NGA Freedamn, URL Address: [address] [place] [address] When:Within 1 Week(s) [facility] 11-21-2023 Note Patient Education Obstetrics and [...] health care provider. General instructions ? Take vpfx-oiw-yorpmdo and prescription medicines only as told by [...] your health care (more content not included)... [facility] 11-14-2023 Hospital Discharge instructions Patient Education [...] your health care provider. General instructions Take woxh-xee-pqljxiu and prescription medicines only as told by [...] provider. Document Revised: 01/26/2021 Document Reviewed: 01/26/2021 [employer] Patient Education 2022 [employer] Follow Up Care 09/14/2023 15:06:58 With:NGA WILKINS PA-C, URL Address: [address] [place] [address] When:Within 1 Week(s) [facility] 06-23-2023 Instructions GeraldEkaterinara - 06/23/2023 2:19 PM EST Need US results from TB from last week. Recommend alternating follow up [...] prior to return documented in this encounter [facility] 06-23-2023 History of Present illness Narrative Images from the original note were not included. NAME: Renetta Barbosa CLINIC NO.: [id number] DATE OF SERVICE: June 23, 2023 ([facility]) Some elements in this clinic note that are critical to medical decision making have been carefully reviewed and included from a prior clinic note dated: June 25, 2022 ([facility]) Referring Provider: Shaikra Higgins CNP Additional Clinicians involved in Renetta [...] HCC screening PLAN: Need US results from TB from last week. Recommend alternating follow up [...] returns today in follow up. US in [facility] with enlarged nodular liver no masses. She [...] iron studies have been drawn at [facility]. She states that she has bleeding hemorrhoids. [...] work-up with CT scans and ultrasounds from [facility]. I was also able to review [...] (FLONASE) 50 mcg/actuation nasal spray Use 1 [place] in each nostril as needed. furosemide (LASIX) [...] which included preparing to see the patient, htxx-sq-ivzd patient care, completing clinical documentation, performing a medically appropriate examination and ordering medications, tests, or procedures. Andre Funes MD, CPE Hematology and Oncology Services Provided at: [place], [place] Scribe Attestation: This note was scribed [...] and under my direction. CC: Shakira Higgins, [facility] NURSING DIRECTOR [address] [address] documented in this encounter [facility] 05-03-2023 Hospital Discharge instructions Patient Education [...] your health care provider. General instructions Take hlry-nwf-kzgmjzl and prescription medicines only as told by [...] provider. Document Revised: 01/26/2021 Document Reviewed: 01/26/2021 [employer] Patient Education 2022 Back&. Follow Up Care 03/22/2023 12:50:20 With:[facility] Address: [address] [place] [address]. 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 for follow-up [facility] 04-05-2023 Evaluation note Encounter Date Diagnosis Assessment Notes Mar, GERD (gastroesopha geal reflux disease) (ICD-10 - K21.9) Stop pantoprazole Rto 3 months Mar, Abdominal pain (ICD-10 - R10.9) Mar, Diarrhea (ICD-10 - R19.7) Mar, Nausea (ICD-10 - R11.0) [facility] Other 05-09-2023 Evaluation note* Encounter Date Diagnosis Assessment Notes Treatment Notes Treatment Clinical Notes September, Abdominal pain (ICD-10 - R10.9) September, Diarrhea (ICD-10 - R19.7) Patient states she goes back and fourth between diarrhea and constipation. September, GERD (gastroesophageal reflux disease) (ICD-10 - K21.9) [facility] Other 02-03-2023 Instructions* Patient Instructions* Andre Funes [...] [facility] of Present illness Narrative* Andre Funes MD - 06/25/2022 2:01 PM EST Images from the original note were not included. NAME: Renetta Barbosa CLINIC NO.: [id number] DATE OF SERVICE: June 25, 2022 ([facility]) [...] [facility] [facility]. She states that she has bleeding hemorrhoids. [...] work-up with CT scans and ultrasounds from [facility]. I was also able to review [...] (FLONASE) 50 mcg/actuation nasal spray Use 1 Columbia in each nostril as needed. furosemide (LASIX) [...] which included preparing to see the patient, [id number] patient care, completing clinical documentation, performing a medically appropriate examination and ordering medications, tests, or procedures. Andre Funes MD, CPE [place], [place] CC: Shakira Higgins CNP [address] [address] [facility]* Encounter Date Diagnosis Assessment Notes Treatment Notes Treatment Clinical Notes May, Abdominal pain (ICD-10 - R10.9) Stop Atorvastatin & Metformin for 1 month RTO 1 month May, Diarrhea (ICD-10 - R19.7) May, GERD (gastroesophageal reflux disease) (ICD-10 - K21.9) [facility] Other 11-10-2022 Evaluation note* Encounter Date Diagnosis Assessment Notes Treatment Notes Treatment Clinical Notes Mar, Abdominal pain (ICD-10 - R10.9) [facility] Other 10-13-2022 Evaluation note* Encounter Date Diagnosis Assessment Notes Treatment Notes Treatment Clinical Notes Feb, GERD (gastroesophageal reflux disease) (ICD-10 - K21.9) CONTINUE PANTOPRAZOLE 40 MG DAILY Feb, Abdominal pain (ICD-10 - R10.9) RTO 6 WEEKS COPY OF LOW FODMAP DIET GIVEN TO PATIENT Feb, Diarrhea (ICD-10 - R19.7) [facility] Other 07-28-2022 History of Present illness Narrative* Andre Funes MD - 12/17/2021 2:15 PM EDT Images from the original note were not included. NAME: Renetta Barbosa CLINIC NO.: [id number] DATE OF SERVICE: December 17, 2021 Some elements in this clinic note that are critical to medical decision making have been carefully reviewed and included from a prior clinic note dated: June 11, 2021 Referring Provider: Shakira Higgins CNP Additional Clinicians involved in Renetta Barbosa's care: Boris Miguel, Benjamin Neumann CC: thrombocytopenia ASSESSMENT: This is a 61 [...] iron studies have been drawn at [facility]. She states that she has bleeding hemorrhoids. [...] work-up with CT scans and ultrasounds from [facility]. I was also able to review [...] petechiae. ALLERGIES: ALLERGIES No Known Allergies MEDICATIONS: NexwayE 2 SENSOR kit busPIRone (BUSPAR) 10 mg [...] (FLONASE) 50 mcg/actuation nasal spray Use 1 Columbia in each nostril as needed. furosemide (LASIX) [...] which included preparing to see the patient, [id number] patient care, completing clinical documentation, performing a medically appropriate examination and ordering medications, tests, or procedures. Andre Funes MD, [place], [place] CC: Shakira Higgins, COMMUNITY HEALTH NURSING DIRECTOR [address] [address] documented in this encounterSt. [facility] HospitalEvaluation + Plan note No data available for this section [facility] evaluation + Plan note Future Appointments Appointment Date:11/07/2023 11:20:00 AM Scheduled Provider:NGA WILKINS PA-C Location:[facility] Appointment Type:URO Procedure 30 min Appointment Date:11/14/2023 11:20:00 AM Scheduled Provider:NGA WILKINS PA-C Location:[facility] [place] Appointment Type:URO Procedure 30 min Appointment Date:11/30/2023 11:20:00 AM Scheduled Provider:NGA WILKINS PA-C Location:[facility] [place] Appointment Type:URO Procedure 30 min Appointment Date:12/07/2023 11:20:00 AM Scheduled Provider:NGA WILKINS PA-C [facility] App[facility] Type:URO Procedure 30 min Appointment Date:12/28/2023 11:20:00 AM Scheduled Provider:NGA WILKINS PA-C Location:[facility] [place] Appointment Type:URO Procedure 30 min Appointment Date:01/04/2024 11:20:00 AM Scheduled Provider:NGA WILKINS PA-C Location:[facility] Appointment Type:URO Procedure 30 min [facility] [place] Evaluation + Plan note Future Appointments Appointment Date:11/14/2023 11:20:00 AM Scheduled Provider:NGA WILKINS PA-C Location:[facility] [place] Appointment Type:URO Procedure 30 min Appointment Date:11/21/2023 11:20:00 AM Scheduled Provider:NGA WILKINS PA-C Location:[facility] [place] Appointment Type:URO Procedure 30 min Appointment Date:11/28/2023 11:20:00 AM Scheduled Provider:NGA WILKINS PA-C Location:[facility] [place] Appointment Type:URO Procedure 30 min Appointment Date:12/19/2023 11:20:00 AM Scheduled Provider:NGA WILKINS PA-C Location:[facility] [place] Appointment Type:URO Procedure 30 min Appointment Date:01/02/2024 11:20:00 AM Scheduled Provider:NGA WILKINS PA-C Location:[facility] Appointment Type:URO Procedure 30 min [facility] Evaluation + Plan note Future Appointments Appointment Date:11/21/2023 11:20:00 AM Scheduled Provider:NGA WILKINS PA-C Location:[facility] Appointment Type:URO Procedure 30 min Appointment Date:11/28/2023 11:20:00 AM Scheduled Provider:NGA WILKINS PA-C Location:[facility] [place] Appointment Type:URO Procedure 30 min Appointment Date:12/05/2023 11:20:00 AM Scheduled Provider:NGA WILKINS PA-C Location:[facility] [place] Appointment Type:URO Procedure 15 min Appointment Date:12/19/2023 11:20:00 AM Scheduled Provider:NGA WILKINS PA-C Location:[facility] [place] Appointment Type:URO Procedure 30 min Appointment Date:01/02/2024 11:20:00 AM Scheduled Provider:NGA WILKINS PA-C Location:[facility] Appointment Type:URO Procedure 30 min [facility] Evaluation + Plan note Future Appointments Appointment Date:11/28/2023 11:20:00 AM Scheduled Provider:NGA WILKINS PA-C Location:[facility] [place] Appointment Type:URO Procedure 30 min Appointment Date:12/05/2023 11:20:00 AM Scheduled Provider:NGA WILKINS PA-C [facility] Appointment Type:URO Procedure 15 min Appointment Date:12/19/2023 11:20:00 AM Scheduled Provider:NGA WILKINS PA-C Location:[facility] [place] Appointment Type:URO Procedure 30 min Appointment Date:01/02/2024 11:20:00 AM Scheduled Provider:NGA WILKINS PA-C [facility] App[facility] Type:[facility]O Procedure 30 min [facility] Evaluation + Plan note Future Appointments Appointment Date:12/05/2023 11:20:00 AM Scheduled Provider:NGA WILKINS PA-C [facility] Appointment Type:URO Procedure 15 min Appointment Date:12/19/2023 11:20:00 AM Scheduled Provider:NGA WILKINS PA-C [facility] Appointment Type:URO Procedure 30 min Appointment Date:01/02/2024 11:20:00 AM Scheduled Provider:NGA WILKINS PA-C Location:[facility] Appointment Type:URO Procedure 30 min [facility] evaluation + Plan note Future Appointments Appointment Date:12/19/2023 11:20:00 AM Scheduled Provider:NGA WILKINS PA-C Location:[facility] [place] Appointment Type:URO Procedure 30 min Appointment Date:01/02/2024 11:20:00 AM Scheduled Provider:NGA WILKINS PA-C Location:[facility] [place] Appointment Type:URO Procedure 30 min [facility] Evaluation + Plan note Future Appointments Appointment Date:02/29/2024 08:20:00 AM Scheduled Provider:NGA WILKINS PA-C Location:[facility] Appointment Type:URO Office Visit [facility] evaluation + Plan note Future Appointments Appointment Date:09/03/2024 02:40:00 PM Scheduled Provider:NGA WILKINS PA-C Location:[facility] Appointment Type:URO Office Visit [facility] evaluation + Plan note Future Appointments Appointment Date:10/25/2025 11:20:00 AM Scheduled Provider:NGA WILKINS PA-C Location:[facility] Appointment Type:URO Office Visit [facility] evaluation note* Diagnosis 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) Cirrhosis of liver without mention of alcohol MENDEZ (nonalcoholic steatohepatitis) Other chronic nonalcoholic liver disease documented in this encounter [facility] note* Diagnosis Cirrhosis of liver not due to alcohol (HCC)- Primary Cirrhosis of liver without mention of alcohol MENDEZ (nonalcoholic steatohepatitis) Other chronic nonalcoholic liver disease 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 thrombocytopenia documented in this encounter [facility] noteNo [facility] [employer] Other Evaluation note* Diagnosis MENDEZ (nonalcoholic steatohepatitis)- Primary Other chronic nonalcoholic liver disease Cirrhosis of liver not due to alcohol (HCC) Cirrhosis of liver without mention of alcohol 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 thrombocytopenia Thrombocytopenia (HCC) Thrombocytopenia, unspecified Diabetic gastroparesis (HCC) (HCC) Type II or unspecified type diabetes mellitus with neurological manifestations, not stated as uncontrolled documented in this encounter [facility] note* Diagnosis SAMUEL (generalized anxiety disorder) (CMS/HCC) Generalized anxiety disorder Type 2 diabetes mellitus with hyperglycemia, with long-term current use of insulin ([facility]) [facility] encounter [facility]* Diagnosis Type 2 diabetes mellitus with hyperglycemia, with long-term current use of insulin (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)- Primary Thrombocytopenia, unspecified [facility] Diagnosis SAMUEL (generalized anxiety disorder) ([facility]) Generalized anxiety disorder documented [facility]* Diagnosis Essential tremor- Primary Cognitive dysfunction Unspecified persistent mental disorders due to conditions classified elsewhere Anxiety Anxiety state, unspecified Imbalance Abnormality of gait Muscle cramping CASSIE (obstructive sleep apnea) Obstructive sleep apnea (adult) (pediatric) documented in [facility] encounter [facility]* Diagnosis SAMUEL (generalized anxiety disorder) ([facility]) Generalized anxiety disorder documented [facility]* Diagnosis Primary insomnia- Primary Persistent disorder of initiating or maintaining sleep CASSIE (obstructive sleep apnea) Obstructive sleep apnea (adult) (pediatric) Hypersomnia Hypersomnia, unspecified Obesity due to excess calories, unspecified classification, unspecified whether serious comorbidity present [facility]* Diagnosis Essential tremor- Primary Cognitive dysfunction Unspecified persistent mental disorders due to conditions classified elsewhere Anxiety Anxiety state, unspecified Imbalance Abnormality of gait Paresthesias Disturbance of skin sensation Well woman exam with routine gynecological exam Routine gynecological examination Cervical cancer screening Screening for malignant neoplasm of the cervix Screening for HPV (human papillomavirus) Special screening examination for human papillomavirus (HPV) LGSIL of cervix of undetermined significance History of HPV infection Other screening mammogram documented [facility]* Diagnosis LGSIL of cervix of undetermined 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 Cervical cancer screening Screening for malignant neoplasm of the cervix Screening for HPV (human papillomavirus) Special screening examination for human papillomavirus (HPV) Other screening mammogram documented in this encounter [facility]* Diagnosis SAMUEL (generalized anxiety disorder) ([facility]/HCC) Generalized anxiety disorder documented in this encounter [facility] HealthcareEvaluation note* Diagnosis Cirrhosis of liver not due to alcohol (HCC)- Primary Cirrhosis of liver without mention of alcohol Biliary cirrhosis (HCC) Biliary cirrhosis MENDEZ (nonalcoholic steatohepatitis) Other chronic nonalcoholic liver disease 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 thrombocytopenia [facility] Diagnosis Type 2 diabetes mellitus with hyperglycemia, with long-term current use of insulin (CMS/HCC)- Primary Insulin long-term use ([facility]/HCC) Encounter for long-term (current) use of insulin Vitamin D deficiency Encounter for dietary consultation High risk medication use Primary hypertension ([facility]/HCC) Unspecified essential hypertension Hypoglycemia Hypoglycemia, unspecified Microalbuminuria Proteinuria 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[facility]/HCC) Chronic lymphocytic thyroiditis Class 1 obesity due to excess calories with serious comorbidity and body mass index (BMI) of 32.0 to 32.9 in adult documented in this encounter [facility] HealthcareEvaluation note* Diagnosis CASSIE (obstructive sleep apnea)- Primary Obstructive sleep apnea (adult) (pediatric) Insomnia, unspecified type documented in this encounter [facility] HealthcareEvaluation noteNo assessment information availableMercy [facility] Work Phone: Evaluation note* Diagnosis LGSIL of cervix of undetermined 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 Surgery follow-up documented in this encounter [facility] HealthcareEvaluation note* Diagnosis Nonintractable episodic headache, unspecified headache type- Primary Essential tremor Cognitive dysfunction Unspecified persistent mental disorders due to conditions classified elsewhere Anxiety Anxiety state, unspecified CASSIE (obstructive sleep apnea) Obstructive sleep apnea (adult) (pediatric) Imbalance Abnormality of gait documented in this encounter [facility] HealthcareEvaluation note* Diagnosis Insulin long-term use ([facility]/HCC)- Primary Encounter for long-term (current) use of insulin Type 2 diabetes mellitus with hyperglycemia, unspecified whether penitentiary insulin use ([facility]) Vitamin D deficiency Encounter for dietary consultation High risk medication use Primary hypertension (CMS/HCC) Unspecified essential hypertension Hypoglycemia Hypoglycemia, unspecified Microalbuminuria Proteinuria Acquired hypothyroidism ([facility]) Unspecified hypothyroidism documented in this encounter [facility] general Narrative - Reported* Type Description Date Surgical History tonsillectomy and adenoidectomy Surgical History C section Surgical History tubal ligation Surgical History cholecystectomy Hospitalization History SEE ABOVE [facility] Other Hospital Discharge instructions No data available for this section [facility] Progress note No data available for this section [facility] reason for referral (narrative)* Diagnostic Procedure Only (Routine) - Pending Review Specialty Diagnoses / Procedures Referred By Mony hinojosa Referred To Contact US IMAGING Diagnoses 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) MENDEZ (nonalcoholic steatohepatitis) Procedures US ABD RT UPPER QUADRANT US ABDOMINAL REAL TIME W/IMAGE LIMITED Andre Funes MD [address] [place] [address] [place] [address] Us Imaging Referral ID Status Reason Start Date Expiration Date Visits Requested Visits Authorized [id number] Pending Review Auto-Generat ed Referral 06/19/2022 01/16/2023 1 1 [facility] for referral (narrative)* Diagnostic Procedure Only (Routine) - Pending Review Specialty Diagnoses / Procedures Referred By Mony hinojosa Referred To Contact US IMAGING Diagnoses 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 Procedures US DOPPLER COMPLETE DUP-SCAN ARTL PATRICK ABDL/PEL/SCROT&/RPR ORGN [facility] Andre Funes MD [address] [place] [address] [place] [address] Us Imaging Referral ID Status Reason Start Date Expiration Date Visits Requested Visits Authorized [id number] Pending Review Auto-Generat ed Referral 06/25/2023 07/25/2023 1 1 * Diagnostic Procedure Only (Routine) - Pending Review Specialty Diagnoses / Procedures Referred By Contac t Referred To Contact US IMAGING Diagnoses 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 Procedures US ABD LIVER VASCULAR US ABDOMINAL REAL TIME W/IMAGE LIMITED DUP-SCAN ARTL PATRICK ABDL/PEL/SCROT&/RPR ORGN COM Andre Funes MD [address] [place] [address] [place] [address] Us Imaging Referral ID Status Reason Start Date Expiration Date Visits Requested Visits Authorized [id number] Pending Review Auto-Generat ed Referral 06/25/2023 07/25/2023 1 1 [facility] for referral (narrative)* Diagnostic Procedure Only (Routine) - Pending Review Specialty Diagnoses / Procedures Referred By Mony hinojosa Referred To Contact US IMAGING Diagnoses MENDEZ (nonalcoholic steatohepatitis) 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 Procedures US ABD RIGHT UPPER QUADRANT US ABDOMINAL REAL TIME W/IMAGE LIMITED Andre Funes MD [address] [place] [address] [place] [address] Referral ID Status Reason Start Date Expiration Date Visits Requested Visits Authorized [id number] Pending Review Auto-Generat ed Referral 06/23/2023 07/22/2024 1 1 [facility] for referral (narrative)* Diagnostic Procedure Only (Routine) - New Request Specialty Diagnoses / Procedures Referred By Mony hinojosa Referred To Contact US IMAGING Diagnoses Thrombocytopenia (HCC) Procedures US ABD SPLEEN US ABDOMINAL REAL TIME W/IMAGE LIMITED Andre Funes MD [address] [place] [address] [place] [address] Referral ID Status Reason Start Date Expiration Date Visits Requested Visits Authorized [id number] New Request Auto-Generat ed Referral 04/26/2024 05/26/2025 1 1 [facility] for referral (narrative)* Diagnostic Procedure Only (Routine) - New Request Specialty Diagnoses / Procedures Referred By Contac t Referred To Contact US IMAGING Diagnoses Biliary cirrhosis (HCC) MENDEZ (nonalcoholic steatohepatitis) 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 Procedures US ABD RIGHT UPPER QUADRANT US ABDOMINAL REAL TIME W/IMAGE LIMITED Andre Funes MD [address] [place] [address] [place] [address] [place] [address] Referral ID Status Reason Start Date Expiration Date Visits Requested Visits Authorized [id number] New Request Auto-Generat ed Referral 06/28/2024 07/28/2025 2 2 [facility] for visit NarrativePT HERE AT REQ OF SHAKIRA HIGGINS FOR GERD, (REFERRAL NOTE RECEIVED)[facility] Other Summary Purpose Family History No Family [...] Found Advance Directives No Advanced Directives Records Found Advance Directive Response Recorded Date/ Time Advance Directives No June 11, 2023 11:51am Additional Source Comments INFORMATION SOURCE (unrecogn ized section and content) DATE CREATED AUTHOR 06/16/2019 [facility] DATE CREATED AUTHOR AUTHOR'S ORGANIZ ATION 06/03/2021 [facility] DATE CREATED AUTHOR AUTHOR'S ORGANIZ ATION 03/01/2022 [facility] DATE CREATED AUTHOR AUTHOR'S ORGANIZ ATION 10/29/2022 [facility] DATE CREATED AUTHOR AUTHOR'S ORGANIZ ATION 07/01/2024 [facility] DATE CREATED AUTHOR AUTHOR'S ORGANIZ ATION 08/27/2024 [facility] DATE CREATED AUTHOR AUTHOR'S ORGANIZ ATION 09/04/2024 [facility] DATE CREATED AUTHOR AUTHOR'S ORGANIZ ATION 10/21/2024 [facility] DATE CREATED AUTHOR AUTHOR'S ORGANIZ ATION 11/01/2024 [facility] EPIC Source Comments (unrecognize d section and content) In the event this informatio n is protected by the Federal Confidentiality of Alcohol and Drug Abuse Patient Records regulations: The Federal rules restrict any use of the information to criminally investigate or prosecute any alcohol or drug abuse patient.[facility] the event this information is protected by the Federal Confidentiality of Alcohol and Drug Abuse Patient Records regulations: The Federal rules restrict any use of the information to criminally investigate or prosecute any alcohol or drug abuse patient.[facility] Hospital[facility] the event this information is protected by the Federal Confidentiality of Alcohol and Drug Abuse Patient Records regulations: The Federal rules restrict any use of the information to criminally investigate or prosecute any alcohol or drug abuse patient.[facility] Hospital[facility] the event this information is protected by the Federal Confidentiality of Alcohol and Drug Abuse Patient Records regulations: The Federal rules restrict any use of the information to criminally investigate or prosecute any alcohol or drug abuse patient.[facility] HospitalIn the event this information is protected by the Federal Confidentiality of Alcohol and Drug Abuse Patient Records regulations: The Federal rules restrict any use of the information to criminally investigate or prosecute any alcohol or drug abuse patient.[facility] HospitalIn the event this information is protected by the Federal Confidentiality of Alcohol and Drug Abuse Patient Records regulations: The Federal rules restrict any use of the information to criminally investigate or prosecute any alcohol or drug abuse patient.[facility] HospitalIn the event this information is protected by the Federal Confidentiality of Alcohol and Drug Abuse Patient Records regulations: The Federal rules restrict any use of the information to criminally investigate or prosecute any alcohol or drug abuse patient.[facility] Reason for Visit (unrecogniz ed section and content) Reason Comments Thrombocytopenia Reason Comments Thrombocytopenia 6 month follow up Reason Comments Follow-up Reason Comments US Reason Comments US spleen order Reason Comments Tremors Anxiety Cognitive concern Reason Comments Sleep Apnea Reason Comments Tremors Cognitive Dysfunction imbalance Reason Onset Date Comments Medication Problem 06/26/2024 Reason Comments Diabetes Follow-up Reason Onset Date Comments Prior Authorization 07/02/2024 Reason Comments Insomnia Sleep Apnea Reason Comments Memory Loss Tremors Headache Care Teams (unrecognized sec tion and content) Director Biostatistics Relationship Specialty Start Date End Date Shakira Higgins, COMMUNITY HEALTH NURSING DIRECTOR [address] [place] [address] PCP - General Internal Medicine 08/01/20 Director Biostatistics Relationship Specialty Start Date End Date Shakira Higgins CNP [address] [place] [address] PCP - General Internal Medicine 08/01/20 Director Biostatistics Relationship Specialty Start Date End Date Benjamin Del Toro MD [address] [place] [address] PCP - General Family Medicine 05/18/23 Tj Dutton MD [address] [place] [address] Obstetrics and Gynecology 05/18/23 Director Biostatistics Relationship Specialty Start Date End Date Benjamin Del Toro MD [address] [place] [address] PCP - General Family Medicine 05/18/23 Tj Dutton MD [address] [place] [address] Obstetrics and Gynecology 05/18/23 Director Biostatistics Relationship Specialty Start Date End Date Benjamin Del Toro MD [address] [facility] [place] [address] PCP - General Family Medicine 05/18/23 Tj Dutton MD [address] [place] [address] Obstetrics and Gynecology 05/18/23 Director Biostatistics Relationship Specialty Start Date End Date Benjamin Del Toro MD [address] [facility] [place] [address] PCP - General Family Medicine 05/18/23 Tj Dutton MD [address] [place] [address] Obstetrics and Gynecology 05/18/23 Director Biostatistics Relationship Specialty Start Date End Date Benjamin Del Toro MD [address] [facility] [place] [address] PCP - General Family Medicine 05/18/23 Tj Dutton MD [address] [place] [address] Obstetrics and Gynecology 05/18/23 Director Biostatistics Relationship Specialty Start Date End Date Shakira Higgins CNP [address] [facility] [place] [address] PCP - General Internal Medicine 08/01/20 Director Biostatistics Relationship Specialty Start Date End Date Shakira Higgins CNP [address] [facility] [address] PCP - General Internal Medicine 08/01/20 Director Biostatistics Relationship Specialty Start Date End Date Benjamin Del Toro MD [address] [place] [address] PCP - General Family Medicine 05/18/23 Tj Dutton MD [address] [place] [address] Obstetrics and Gynecology 05/18/23 Director Biostatistics Relationship Specialty Start Date End Date Benjamin Del Toro MD [address] [place] [address] PCP - General Family Medicine 05/18/23 Tj Dutton MD [address] [place] [address] Obstetrics and Gynecology 05/18/23 Director Biostatistics Relationship Specialty Start Date End Date Benjamin Del Toro MD [address] [place] [address] PCP - General Family Medicine 05/18/23 Tj Dutton MD [address] [facility] [address] [place] [address] Obstetrics and Gynecology 05/18/23 Director Biostatistics Relationship Specialty Start Date End Date Benjamin Del Toro MD [address] [place] [address] PCP - General Family Medicine 05/18/23 Tj Dutton MD [address] [place] [address] Obstetrics and Gynecology 05/18/23 Director Biostatistics Relationship Specialty Start Date End Date Benjamin Del Toro MD [address] [place] [address] PCP - General Family Medicine 05/18/23 Tj Dutton MD [address] [place] [address] Obstetrics and Gynecology 05/18/23 Director Biostatistics Relationship Specialty Start Date End Date Benjamin Del Toro MD [address] [place] [address] PCP - General Family Medicine 05/18/23 Tj Dutton MD [address] [place] [address] Obstetrics and Gynecology 05/18/23 Director Biostatistics Relationship Specialty Start Date End Date Benjamin Del Toro MD [address] [place] [address] PCP - General Family Medicine 05/18/23 Tj Dutton MD [address] [facility] [address] [address] Obstetrics and Gynecology 05/18/23 Director Biostatistics Relationship Specialty Start Date End Date Benjamin Del Toro MD [address] [place] [address] PCP - General Family Medicine 05/18/23 Tj Dutton MD [address] [facility] [address] [place] [address] Obstetrics and Gynecology 05/18/23 Director Biostatistics Relationship Specialty Start Date End Date Benjamin Del Toro MD [address] [place] [address] PCP - General Family Medicine 05/18/23 Tj Dutton MD [address] [place] [address] Obstetrics and Gynecology 05/18/23 Director Biostatistics Relationship Specialty Start Date End Date Benjamin Del Toro MD [address] [place] [address] PCP - General Family Medicine 05/18/23 Tj Dutton MD [address] [place] [address] Obstetrics and Gynecology 05/18/23 Jasmine Urban LISW-S [address] [place] [address] Geneticist Behavioral Health 05/30/24 Director Biostatistics Relationship Specialty Start Date End Date Shakira Higgins CNP [address] [place] [address] PCP - General Internal Medicine 08/01/20 Director Biostatistics Relationship Specialty Start Date End Date Benjamin Del Toro MD [address] [place] [address] PCP - General Family Medicine 05/18/23 Tj Dutton MD [address] [place] [address] Obstetrics and Gynecology 05/18/23 Jasmine Urban LISW-S [address] [place] [address] Geneticist Behavioral Health 05/30/24 Director Biostatistics Relationship Specialty Start Date End Date Benjamin Del Toro MD [address] [place] [address] PCP - General Family Medicine 05/18/23 Tj Dutton MD [address] [place] [address] Obstetrics and Gynecology 05/18/23 Jasmine Urban LISW-S [address] [place] [address] Geneticist Behavioral Health 05/30/24 Director Biostatistics Relationship Specialty Start Date End Date Benjamin Del Toro MD [address] [facility] [place] [address] PCP - General Family Medicine 05/18/23 Tj Dutton MD [address] [place] [address] Obstetrics and Gynecology 05/18/23 Jasmine Urban LISW-S [address] [place] [address] Geneticist Behavioral Health 05/30/24 Director Biostatistics Relationship Specialty Start Date End Date Benjamin Del Toro MD [address] [facility] [place] [address] PCP - General Family Medicine 05/18/23 Tj Dutton MD [address] [place] [address] Obstetrics and Gynecology 05/18/23 Jasmine Urban LISW-S [address] [place] [address] Geneticist Behavioral Health 05/30/24 Team Status: Inactive Member Role Status Dates Tj Dutton MD Attending Provider Active Star t: August 16, 2024 End: August 16, 2024 Director Biostatistics Relationship Specialty Start Date End Date Benjamin Del Toro MD [address] [place] [address] PCP - General Family Medicine 05/18/23 Tj Dutton MD [address] [place] [address] Obstetrics and Gynecology 05/18/23 Jasmine Urban LISW-S [address] [place] [address] Geneticist Behavioral Health 05/30/24 Director Biostatistics Relationship Specialty Start Date End Date Benjamin Del Toro MD [address] [place] [address] PCP - General Family Medicine 05/18/23 Tj Dutton MD [address] [place] [address] Obstetrics and Gynecology 05/18/23 Jasmine Urban LISW-S [address] [place] [address] Geneticist Behavioral Health 05/30/24 Director Biostatistics Relationship Specialty Start Date End Date Benjamin Del Toro MD [address] [place] [address] PCP - General Family Medicine 05/18/23 Tj Dutton MD [address] [place] [address] Obstetrics and Gynecology 05/18/23 Jasmine Urban LISW-S [address] [place] [address] Geneticist Behavioral Health 05/30/24 Director Biostatistics Relationship Specialty Start Date End Date Benjamin Del Toro MD [address] [place] [address] PCP - General Family Medicine 05/18/23 Tj Dutton MD [address] [place] [address] Obstetrics and Gynecology 05/18/23 Jasmine Urban LISW-S [address] [place] [address] Geneticist Behavioral Health 05/30/24 Director Biostatistics Relationship Specialty Start Date End Date Benjamin Del Toro MD PCP - General Family Medicine 05/18/23 Tj Dutton MD [address] [place] [address] Obstetrics and Gynecology 05/18/23 Jasmine Urban LISW-S [address] [place] [address] Geneticist Behavioral Health 05/30/24 Director Biostatistics Relationship Specialty Start Date End Date Benjamin Del Toro MD PCP - General Family Medicine 05/18/23 Tj Dutton MD [address] [place] [address] Obstetrics and Gynecology 05/18/23 Jasmine Urban LISW-S [address] [place] [address] Geneticist Behavioral Health 05/30/24 Director Biostatistics Relationship Specialty Start Date End Date Benjamin Del Toro MD PCP - General Family Medicine 05/18/23 Tj Dutton MD [address] [place] [address] Obstetrics and Gynecology 05/18/23 Jasmine Urban LISW-S [address] [place] [address] Geneticist Behavioral [facility] 05/30/24 Goals (unrecognized section and content) Goals may be documented in a n alternate section FOR RECORDS PERTAINING TO PATIENTS WHO ARE [...] BE BASED ON THE PRIMARY CLINICAL RECORDS. [facility]. provides no warranty or guarantee of the accuracy or completeness of information in this document.
== END 2025-01-03 14:30 | disposition home or self-care (01) ==
LOC: CT 14:29
PROVIDERS: PCP Nurse Practitioner Family; Visit Provider Nurse Practitioner Family
DX: F17.200 Nicotine dependence, unspecified, uncomplicated (principal); F17.210 Nicotine dependence, cigarettes, uncomplicated
CPT/HCPCS: 71271

== ENCOUNTER 2025-02-28 08:52 | Outpatient (OUT) | payer MEDICARE, SELFPAY ==
--- OUTSIDE RECORDS SUMMARY | 2025-01-03 15:39 | XMS_ITS | CCD ---
Author Organization [facility] CliniSyms Care Team Providers Care Casting Trucker Name Role Phone Shakira Higgins S Primary Care Provider DR JENNIFER TURNER Consulting Unavailable YUE, DR RODRIGUEZ Attending Unavailable MISC, DR VAZQUEZ Primary Care Unavailable YUE, DR RODRIGUEZ Admitting Unavailable Keysha Naidu Consulting Unavaila marie Higgins CNP, Shakira S Primary Care Provider PROVIDER, UNKNOWN Attending Unavailable PROVIDER, UNKNOWN Admitting Unavailable Rodger Davila Unavailable [phone] Ronaldo MOORE, Shakira S Primary Care Provider [phone] SHAKIRA HIGGINS Attending Unavailable RONALDO, SHAKIRA Admitting [...] Primary Care Unavailable KEHINDE, ANTOINE Consulting Unavailable KHEINDE, ANTOINE Attending Unavailable KEHINDE, ANTOINE Admitting Unavailable [...] Unavailable RONALDO, SHAKIRA S Primary Care Physician [phone] Soheila Delgado Unavailable Benjamin Del Toro MD Primary Care Provider [phone] Tj Dutton MD Unavailable [phone] Ronaldo MOORE, Shakira S Primary Care Provider [phone] Jasmine Velasquez Unavailable [phone] ABHYANKAR, ANDRE Referring Unavailable ABHYANKAR, ANDRE Attending Unavailable RONALDO, SHAKIRA S Primary Care Unavailable ABHYANKAR, ANDRE Referring Unavailable RONALDO, SHAKIRA S Primary Care Unavailable Tj Dutton MD Attending Provider Tj Dutton Admitting Unavailable Tj Dutton Attending [...] Unavailab Benjamin Lucio MD Primary Care Provider [phone] JASMINE URBAN Attending Unavailable KUSHALZE MCKINNON F Attending Unavailable GI ARRIAGA Attending Unavailable NATO, TJ Kothari Attending Unavailable SABRINA COX Attending Unavailable KUSHAL, AHMAWillis F Attending Unavailable SOLOMON, JASMINE Attending Unavailable TAN SOTELO Attending Unavailable RAJAT AGUILAR Attending Unavailable SOLOMON, JASMINE Attending Unavailable SOLOMON, JASMINE Attending Unavailable RAJAT AGULIAR Attending Unavailable SOLOMON, JASMINE Attending Unavailable MARY [...] [capsaicin topical] Drug Allergy [facility] (5 sources) Capsaicin; Translations: [CAPSAICIN] Drug Allergy 4 [facility] Repository (5 sources) Capsaicin Drug Allergy Unknown Zollo Other (11 sources) Capsaicin / Turpentine; Translations: [capsaicin topical] Drug Allergy [facility] (20 sources) Capsaicin Drug Allergy 4 [facility] (20 sources) traMADol; Translations: [TRAMADOL] Drug Allergy 4 [facility] (3 sources) traZODone; Translations: [trazodone] Drug Allergy 4 Itching [facility] (1 source) Capsaicin Drug Allergy 4 [facility] Repository (1 source) No Known Medication Allergies; Translations: [No Known Medication Allergies] Propensity to adverse reactions (disorder) [facility] Repository Medications Current Medications Medication [...] Refill(s) 0 Start Date: 03/13/20 Status: Ordered [id number] 200 actuat albuterol 0.09 mg/actuat metered dose [...] colonoscopy, # 4 tab(s), Refills(s) 0, Pharmacy: [facility]/pharmacy #[id number], 157.5, cm, 03/18/20 [...] (20 sources) Corticosteroid, beta2-Adrenergic Agonist Start: 07-19-2023 Kfejhxggll-Tbyrskjy-Hqhmtmpu ol (Breztri Aerosphere) 160-9-4.8 mcg/actuation HFA aerosol [...] Gluc Sensor (FreeStyle Jeanne 2 Sensor) [facility] ([facility] sources) Start: 05-14-2023 Continuous Blo od Gluc Sensor (FreeStyle Jeanne 2 Sensor) [facility] 05/14/2023 Active Start: 05-14-2023 Continuous Blo od Gluc Sensor (FreeStyle Jeanne 2 Sensor) [facility] [place] DIRECTED 05/14/2023 Active cyanocobalamin, vitamin B-12 , (VITAMIN B12 ORAL) (6 sources) take 1000 ug by mouth once daily cyanocobalamin, vitamin B-12, (VITAMIN B12 ORAL) Take 1,000 mcg by mouth once daily. Active take 1000 ug by mouth once daily cyanocobalamin, vitamin B-12, (VITAMIN B12 ORAL) Take 1,000 mcg by mouth once daily. 0 Active Comment on above: Take 1,000 mcg by [facility] once daily. cycloSPORINE 0.5 mg/ml ophthalmic suspension [...] completed) Start: 02-14-2024 take 1 capsule by [facility] once at bedtime doxepin (SINEquan) 10 MG [...] (FLONASE) 50 mcg/actuation nasal spray Use 1 Stratford in each nostril as needed. Active Comment on above: Use 1 Stratford in each nostril as needed. 30 actuat [...] Start: 03-13-2020 take 25 mg rectal ro iroquois twice daily Anusol-HC 25 mg rectal suppository [...] 2 diabetes mellitus with hyperglycemia, unspecified whether intermodal customer service insulin use (CMS/HCC) , Type 2 diabetes [...] Daily, # 30 tab(s), Refills(s) , Pharmacy: [facility]/pharmacy #[id number], 152, cm, 10/19/24 11:54:00 EDT, Height/Length Dosing, 85, kg, 10/19/24 11:54:00 EDT, Weight Dosing Start Date: 10/19/24 Status: Ordered Quantity: 30.0 Unit: tab(s) Repeat number: 12 Start: 06-08-2024 take 1 tablet by jono th once daily Myrbetriq 50 mg oral tablet, extended release 50 mg = 1 tab(s), Oral, Daily, # 30 tab(s), Refills(s) 11, Pharmacy: [facility]/pharmacy #[id number], 152, cm, 06/08/24 12:12:00 EST, Height/Length [...] Polyene Antifungal Start: 09-27-19 25 nystatin (Mycostatin) 423457 UNIT/GM powder Indications: Postmenopausal atrophic vaginitis APPLY TO AFFECTED AREA TWICE A DAY 60 g 3 09/26/2024 Active Start: 07-28-2023 End: 04-09-2024 nystatin (Mycostatin) 535821 UNIT/GM powder Indications: Postmenopausal atrophic vaginitis APPLY TO AFFECTED AREA TWICE A DAY 60 g 3 04/09/2024 Active Start: 07-19-2023 Nystatin 100,0 00 unit/gram powder Active 1 APPLIC TOPICAL Twice daily July 19, 2023 1:00am Nystatin 166864 UNIT/GM 1 application Externally Twice a day Active Nystatin 383713 UNIT/GM 1 application Externally Twice a day [...] Start: 10-10-2023 take 2 tablets by mo [facility] twice daily primidone (Mysoline) [...] by mouth Daily Active 60 actuat tiotropium 0.44237 mg/actuat inhalation spray (19 sources) Anticholinergic Start: [...] Start: 03-13-2020 take 1 capsule by mo [facility] once daily venlafaxine XR [...] Start Date: 03/13/20 Status: Ordered vitamin a 52185 unt oral capsule (20 sources) Vitamin A take 3 mg by mouth once daily beta carotene (vitamin A) 3 MG (32573 UT) capsule Take 10,000 Units by mouth Daily Active take 3 mg by mouth in the mornin g beta carotene (vitamin A) 3 MG (92257 UT) capsule Take 10,000 Units by mouth [...] unspecified] 03-05-2024 Chronic Other aftercare (2 sources) residential (current) use of insulin; Translations: [[facility] CURRENT USE OF INSULIN] Onset: 1 Episodic Other aftercare (2 sources) Other custodial (current) drug therapy; Translations: [OTH VETERANS ADVISER CURRENT DRUG THERAPY] Onset: 1 Episodic Other aftercare (1 source) residential (current) use of oral hypoglycemic drugs; Translations: [VETERANS ADVISER USE ORAL HYPOGLYCEMIC DX] Onset: 3 Episodic Other aftercare (6 sources) Long-term current use of insulin; Translations: [residential (current) use of insulin] 03-05-2024 Episodic Other aftercare (6 sources) Taking high risk medication; Translations: [Other intermodal customer service (current) drug therapy] 03-05-2024 Episodic Other aftercare [...] (BMI) of 35.0 to 35.9 in adult (CMS/FORMERLY [facility])] 03-05-2024 Chronic Other nutritional; endocrine; and [...] 0 10-30-2024 Glucose Blood, POC 360 mg/dL [facility] Laboratory - Hematology and Cell countson 10-30-2024 HbA1c (Bld) [Mass fraction] 7.5 % [facility] No Panel Informationon 10-30 [facility] MM TOMOSYNTHESIS SCREENING B Ion 10-25-2024 [place] [address] Mammography Report Signed Patient: RENETTA BARBOSA MR#: [id number] : 1960 Acct:[id number] Age/Sex: 64 / F ADM Date: 10/24/24 Loc: MAMMO Attending Dr: TJ DUTTON Ordering Physician: TJ DUTTON Results: Date of Service: 10/24/24 Follow Up: Procedure(s): MM tomosynthesis screening BI Accession Number(s): [id number] cc: SHAKIRA HIGGINS ; TJ DUTTON Patient Name: RENETTA BARBOSA MR#: [id number] : 1960 Exam Date: 10/24/2024 Ordering Doctor: [...] breast cancer at age 80. LOCATION: [facility] BREAST COMPOSITION: There are scattered areas of [...] Signed By: 10/25/24 1007 DD/ 1006 TD/TT: Master Barber: [facility] Radiology, Radiologist, - 10/25/2024 [place] [address] Mammography Report Signed Patient: RENETTA BARBOSA MR#: [id number] : 1960 Acct:[id number] Age/Sex: 64 / F ADM Date: 10/24/24 Loc: MAMMO Attending Dr: TJ DUTTON Ordering Physician: TJ DUTTON Results: Date of Service: 10/24/24 Follow Up: Procedure(s): MM tomosynthesis screening BI Accession Number(s): [id number] cc: SHAKIRA HIGGINS ; TJ DUTTON Patient Name: RENETTA BARBOSA MR#: [id number] : 1960 Exam Date: 10/24/2024 Ordering Doctor: [...] breast cancer at age 80. LOCATION: [facility] BREAST COMPOSITION: There are scattered areas of [...] Signed By: 10/25/24 1007 DD/ 1006 TD/TT: Master Barber: [facility] Radiology Study observation (narrative) [facility] MM TOMOSYNTHESIS SCREENING B IOrdered By: Radiologist Radiology on 10-25-2024 [facility] Work Phone: Ambulatory Visit Summaryon 0 10-19-2024 [...] NGA WILKINS PA-C Where: [facility] [id number]- Medications What How Much When Instructions Unchanged [...] GERD (gas (more content not included)... Normal [facility] Urology Office/Clinic Noteon 10-19-2024 Urology Office/Clinic Note [...] E&M of Est. Patient Low 20-29 Min 38040 2. Stress incontinence (N39.3: Stress incontinence (female) (male)) Only w full bladder. Not bothersome. Discussed continued home PFPT. Ordered: E&M of Est. Patient Low 20-29 Min 22401 Urnls Dip Stick Auto w/o Microscopy POC 11853 Orders: mirabegron, 50 mg = 1 tab(s), Oral, Daily, # 30 tab(s), Refills(s) , Pharmacy: [facility]/pharmacy #[id number], 152, cm, 10/19/24 11:54:00 EDT, Height/Length Dosing, 85, kg, 10/19/24 11:54:00 EDT, Weight Dosing Follow-up With When Contact Information JUANITO BREWER, NGA Freedman, URL In 1 year [address] [facility] [place] [address] Additional Instructions: Patient Education Overactive [...] q8hr Trulicity (more content not included)... Normal [facility] Comment on above: Result Comment: Elec tronically Signed By: NGA WILKINS PA-C\.br\Date and Time Signed: 10/19/24 12:18 EDT Office Visiton 09-03-2024 Follow-up visit [id number] Renetta Barbosa 1960 F Date Provider Department Center 09/03/2024 79150-CQUHTMISSA BURGER Family History Problem Relation Age of Onset Diabetes Mother Coronary artery disease Mother Lung cancer Father Breast cancer Maternal Grandmother Family Status - Relation Status Age at Mother Alive Father Maternal Grandmother Level of Service:03707 [place] OFFICE/OUTPATIENT ESTABLISHED LOW MDM 20 MIN Reason for Visit and Comments: 1 year follow up [Other] Hyperlipidemia [182] Hypertension [298525] Normal [facility] Steve 08-16-2024 L -- ---- Specimen: [id number] Received: 08/16/24 Status: VIK Olson Num: [id number] Spec Type: Surgical Subm Dr: TJ DUTTON MD Tissues: A Cervical Biopsy/Leep Biopsy (CERVICAL LEEP) B Endocervix - Curettings (ECC) Procedures: Brunilda EASTMAN/Ted L4/2 ---- Age/ Patient Sex Location Account Attending Physician ---- Renetta Barbosa 64/F [place] [id number] TJ DUTTON MD ---- SPEC NUM: [id number] RECD: 08/16/24 STATUS: VIK OLSON NUM: [id number] PANCHITO: 08/16/24-0000 [facility] DR: TJ DUTTON MD ENTERED: 08/16/[address] [facility] [address]: SPEC TYPE: Surgical DEPT: S ENTERED BY: [id number] [facility] BY: [id number] ORDERED: HE/4, Gross/Micro L4/2 ORDERED: HE/4, Gross/Micro [...] submitted in a single cassette. (1, ns, [id number] A) Part B is received in formalin labeled with the patients name, date of , and ---- Specimen: [id number] Received: 08/16/24 Status: VIK Aliceacecile Num: [id number] Spec Type: Surgical Subm Dr: TJ DUTTON MD Tissues: A Cervical Biopsy/Leep Biopsy (CERVICAL LEEP) B Endocervix - Curettings (ECC) Procedures: HE/4, Gross/Micro L4/2 ---- Patient: Renetta Barbosa [id number] (Continued) ---- Specimen: [id number] Received: 08/16/24 (Continued) Gross Description (Continued) Signed (signature on file) Vic Allison MD 08/17/24 1130 ---- Specimen: [id number] Received: 08/16/24 Status: VIK Olson Num: [id number] Spec Type: Surgical Subm Dr: TJ DUTTON MD Tissues: A Cervical Biopsy/Leep Biopsy (CERVICAL LEEP) B Endocervix - Curettings (ECC) Procedures: QUENTIN/Brunilda Hunter/Ted L4/2 ---- Patient: Renetta Barbosa [id number] (Continued) ---- Specimen: [id number] Received: 08/16/24 (Continued) Gross Description (Continued) endocervical curettage is a Telfa pad with adherent fragments of zuniga-guzman, delicate and feathery tissue, 0.4 x 0.2 x 0.1 cm in aggregate. The specimen is filtered and entirely submitted in a single cassette. (1, ns, B) Microscopic Description A B: Microscopic examination is performed. CPT Codes 55765, 56104 ---- ---- Specimen: [id number] Received: 08/16/24 Status: VIK Olson Num: [id number] Spec Type: Surgical Subm Dr: TJ DUTTON MD Tissues: A Cervical Biopsy/Leep Biopsy (CERVICAL LEEP) B Endocervix - Curettings (ECC) Procedures: HE/4, Gross/Micro L4/2 ---- Patient: Renetta Barbosa [id number] (Continued) ---- Signed (signature on file) Vic Allison MD 08/17/24 1130 Normal [facility] Glucose (Bld) [Mass/Vol]Orde red By: Zakiya Pearl on 07-02-2024 Glucose Blood, POC 192 mg/dL [facility] - Hematology and Cell countson 07-02-2024 HbA1c (Bld) [Mass fraction] 7.7 % [facility] No Panel InformationOrdered By: Zakiya Pearl on 07-02-2024 [facility] AFP SerPl-mCncon 06-28-2024 AFP [Mass/Vol] 1.53 ng/mL Normal <9.00 [facility] Comment on above: Order Comment: Speci men Type: BLOOD SPECIMEN Ordering Facility: [facility] Address: [address] [place] [address] Result Comment: The Alpha-Fetoprotein test was performed using the Nayeli Unicel DxI immunoenzymatic assay. Results obtained with different assay methods or kits cannot be used interchangeably. Performed By: #### 1 834-1 #### [facility] CLIA [id number] [address] [place] [address] [place] CNOVSPon 06-28-2024 CNOVSP Visit (SP) Office ([place]) RENETTA BARBOSA ([id number]) 1960 F Date Time Provider Department 06/28/24 2:20 PM ANDRE FUNES During your visit today, we recorded the following information about you: Temperature Pulse Respiration Blood pressure 97.5 degrees 86/minute 16/minute 143/78 Weight 79.5 kg Andre Funes MD 06/28/2024 3:34 PM Signed NAME: Renetta Barbosa CLINIC NO.: [id number] DATE OF SERVICE: June 28, 2024 ([place]) [...] returns today in follow up. US in [facility] with enlarged nodular liver no masses. [...] relationship daniel (more content not included)... Normal [facility] Urology Office/Clinic Noteon 06-08-2024 Urology Office/Clinic Note [...] E&M of Est. Patient Moderate 30-39 Min 69040 Urnls Dip Stick Auto w/o Microscopy POC 16564 2. Dry eyes (H04.123: Dry eye syndrome of bilateral lacrimal glands) On Restatsis 3. Dry mouth (R68.2: Dry mouth, unspecified) On Cevimeline Orders: mirabegron, 50 mg = 1 tab(s), Oral, Daily, # 30 tab(s), Refills(s) 11, Pharmacy: [facility]/pharmacy #[id number], 152, cm, 06/08/24 12:12:00 EST, Height/Length Dosing, 86.4, kg, 06/08/24 12:12:00 EST, Weight Dosing Follow-up With When Contact Information JUANITO BREWER, NGA Freedman, URL In 3 months [address] [place] [address] Additional Instructions: Patient Education Overactive [...] Past. Marijuana. (more content not included)... Normal [facility] Comment on above: Result Comment: Elec tronically Signed By: NGA WILKINS PA-C.anamika\Date and Time Signed: 06/08/24 12:35 EST Jacqueline 04-26-2024 CNPN Telephone ([place]) RENETTA BARBOSA ([id number]) 1960 F Date Time Provider Department 04/26/24 LUZ HAMILTON During your visit today, we recorded the following information about you: Luz Hamilton RN 04/26/2024 10:44 AM Signed [facility] needs additional order for US to include the spleen with her abdomen US every 6 months. The other US Abd will not include the spleen. If needed each time, will need 2 orders sent each time. Fax to US directly: [phone] Mio: please review and sign Luz Hamilton RN Allergies As of Date: 04/26/2024 (No Known Allergies) Date Reviewed: 06/23/2023 Reviewed by: Yaritza Amato MA - Fully Assessed Reason for Visit: US spleen order [Other] Primary Visit Diagnosis:Thrombocytop enia (HCC) [D69.6] Order(s):US ABD SPLEEN [2947385] Order #: [id number] STANDING Prescriptions as of 04/26/2024 - BREZTRI [...] (FLONASE) 50 mcg/actuation nasal spray Use 1 Stratford in each nostril as needed. - furosemide [...] (HCC) (HCC) [E11.43, K3*06/26/2023 Encounter Status:Closed by ANRDE FUNES on 04/26/24 [facility] Jacqueline 04-23-2024 CNPN Telephone ([place]) RENETTA BARBOSA ([id number]) 1960 F Date Time Provider Department 04/23/24 [...] (FLONASE) 50 mcg/actuation nasal spray Use 1 Stratford in each nostril as needed. - furosemide [...] Status:Closed by LUZ HAMILTON on 04/23/24 Normal [facility] Glucose (Bld) [Mass/Vol]Orde red By: Zakiya Pearl on 03-05-2024 Glucose Blood, POC 187 mg/dL [facility] - Hematology and Cell countson 03-05-2024 HbA1c (Bld) [Mass fraction] 7.4 % [facility] No Panel InformationOrdered By: Zakiya Pearl on 03-05-2024 [facility] Ambulatory Visit Summaryon 1 Ambulatory Visit Summary [...] Duration: 30 Days Refills: 1 Pickup at [facility]/pharmacy #[id number] Unchanged albuterol (Ventolin HFA 90 mcg/ inh [...] venlafaxine ( (more content not included)... Normal [facility] Urology Office/Clinic Noteon 02-29-2024 Urology Office/Clinic Note [...] E&M of Est. Patient Moderate 30-39 Min 68335 2. Dry eyes (H04.123: Dry eye syndrome of bilateral lacrimal glands) On Restatsis Ordered: E&M of Est. Patient Moderate 30-39 Min 20882 3. Dry mouth (R68.2: Dry mouth, unspecified) On Cevimeline Ordered: E&M of Est. Patient Moderate 30-39 Min 47898 4. Stress incontinence (N39.3: Stress incontinence (female) (male)) < Ordered: E&M of Est. Patient Moderate 30-39 Min 66310 Orders: mirabegron, 25 mg = 1 tab(s), Oral, Daily, X 30 day(s), # 30 tab(s), Refills(s) 1, Pharmacy: [facility]/pharmacy #[id number], 152, cm, 02/29/24 9:28:00 EDT, Height/Length Dosing, 86.4, kg, 02/29/24 9:28:00 EDT, Weight Dosing Body Mass Index (BMI) documented 3008F Current tobacco smoker 1034F Depression Screening Negative 3352F Influenza immunization status assessed 1030F Most recent diastolic blood pressure 80-89 mm Hg 3079F Most recent systolic blood pressure >= 140 mm Hg 3077F Urnls Dip Stick Auto w/o Microscopy POC 94770 Follow-up With When Contact Information JUANITO BREWER, NGA Freedman, JACKL Within 3 months [address] [place] [address] Additional Instructions: Patient Education Overactive Bladder, Adult [...] 2000 intl (more content not included)... Normal [facility] Comment on [...] NGA WILKINS PA-C Where: [facility] [address] [place] [address]- You Need to Schedule the Following Appointments Follow Up with JUANITO BREWER, YARA DEL RIO When: Within 3 months Where: [address] [place] [address] Medications What How Much When Instructions Unchanged [...] Unchanged venlafaxi (more content not included)... Normal [facility] Urology Office/Clinic Noteon 01-02-2024 Urology [...] up to a max of 10 Ordered: 96387 EMG anal/urethral sphincter no needle 73988 Biofeedback training, perineal muscles, anorectal 22797 Anorectal Manometry 01711 ELECTRICAL STIMULATION 39091 Urnls Dip Stick Auto w/o Microscopy POC 80437 Follow-up With When Contact Information JUANITO BREWER, NGA Freedman, YARA Within 3 months [address] [place] [address] Additional Instructions: Patient Education Overactive Bladder, Adult [...] Bedtime Humu (more content not included)... Normal [facility] Comment on [...] NGA WILKINS PA-C Where: [facility] Normal [address] [place] [address]- \.br\ You Need to Schedule the Following Appointments\.br\ Follow Up with JUANITO BREWER, YARA DEL RIO When: In 2 weeks\.br\ Where:\.br\ [address] [place]\.br\ [place] [address]\.br\ \.br\ Medications\.br\ What How Much When Instructions\.br\ [...] provider.\.br\ Document Revised: 09/17/2021 Document Reviewed: 09/17/2021 [employer] Patient Education ? 2022 [employer].br\ \.br\ [facility] Interdisciplinary Note - Soc ial Workeron 12-05-2023 Interdisciplinary Note - Canvas Marker Interdisciplinary Note - Canvas Marker Consult for positive depression screen received. Chart review completed and it was noted that this consult has been received in error as patient's depression screen score was 0. SW will remain available. Normal [facility] Urology Office/Clinic Noteon 12-05-2023 Urology [...] Urnls Dip Stick Auto w/o Microscopy POC 52843 Follow-up With When Contact Information NGA WILKINS PA-C, URL In 2 weeks [address] [place] [address] Additional Instructions: Patient Education Kegel [...] 1 cap (more content not included)... Normal [facility] Comment on [...] NGA WILKINS PA-C Where: [facility] Invalid Interpretation Code [address] [place] [address]- \.br\ Tuesday 11:20 AM EDT \.br\ With: [...] discuss other options, try PFPT at [facility] or [facility]. Pt prefers options #1. Follow up 1 week for PFPT #4 or sooner if needed. Pt understands and agrees with plan. Follow-up With When Contact Information JUANITO BREWER, NGA Freedman, URL [address] [place] [address] Additional Instructions: 1 week PFPT #4 Patient [...] Daily Magdaleno (more content not included)... Normal [facility] Comment on [...] NGA WILKINS PA-C Where: [facility] Invalid Interpretation Code [address] [place] [address]- \.br\ Tuesday 11:20 AM EDT \.br\ With: [...] in 1 week(s) for session #3 Ordered: 33053 EMG anal/urethral sphincter no needle 86546 Biofeedback training, perineal muscles, anorectal 18019 Anorectal Manometry 92252 ELECTRICAL STIMULATION 67927 Urnls Dip Stick Auto w/o Microscopy POC 33490 Follow-up With When Contact Information NGA WILKINS PA-C, YARA In 1 week [address] [place] [address] Additional Instructions: Patient Education Overactive [...] Use:. Cigarett (more content not included)... Normal [facility] Comment on above: Result Comment: Elec tronically Signed By: NGA WILKINS PA-C\.br\Date and Time Signed: 11/21/23 12:27 EDT Consent for Procedure/Surger yon 11-15-2023 Consent for Procedure/Surgery [id number]#1.00 TIFF Normal [facility] EMG Electromyographyon 11-14 EMG Electromyography [id number]#1.00 TIFF [facility] Ambulatory Visit Summaryon 0 11-14-2023 Ambulatory Visit [...] NGA WILKINS PA-C Where: [facility] Invalid Interpretation Code [address] [place] [address]- \.br\ Tuesday 11:20 AM EDT \.br\ With: JUANITO BREWER, NGA Freedman\.br\ Where: [facility] Patient Educationon 11-14-19 Patient Education [...] health care provider. General instructions ? Take dqda-[id number]-nafwiov and prescription medicines only as told by [...] monitor yo (more content not included)... Normal [facility] Urology Office/Clinic Noteon 11-14-2023 Urology [...] in 1 week(s) for session #2 Ordered: 32252 EMG anal/urethral sphincter no needle 33798 Biofeedback training, perineal muscles, anorectal 22991 Anorectal Manometry 15600 ELECTRICAL STIMULATION 36328 Urnls Dip Stick Auto w/o Microscopy POC 36279 Urnls Dip Stick Auto w/o Microscopy POC 09548 Follow-up With When Contact Information JUANITO BREWER, YARA DEL RIO In 1 week [address] [place] [id number] Additional Instructions: Patient Education Overactive [...] or more (more content not included)... Normal [facility] Comment on [...] LEONEL MATA Date: 2022-10-20 08:02 Normal [facility] CBC AUTO DIFFon 10-19-2022 BASO # 0.0 103/ul Normal 0.0-0.1 [facility] Comment on above: Performed By: #### C BC #### [facility] [address] [place] [address] Dr. Blanquita Farris Basophils/100 WBC (Bld) 0.4 % Normal 0.2-2.0 [facility] Comment on above: Performed By: #### C BC #### [facility] [address] [place] [address] Dr. Blanquita Farris EO # 0.1 103/ul Normal 0.0-0.7 [facility] Comment on above: Performed By: #### C BC #### [facility] [address] [place] [address] Dr. Blanquita Farris Eosinophils/100 WBC (Bld) 1.5 % Normal 0.9-7.0 [facility] Comment on above: Performed By: #### C BC #### [facility] [address] [place] [address] Dr. Blanquita Farris Erythrocyte distribution width (RBC) [Ratio] 15.3 % Critically high 11.0-15.0 [facility] Comment on above: Performed By: #### C BC #### [facility] [address] [place] [address] Dr. Blanquita Farris Hematocrit (Bld) [Volume fraction] 42.7 % Normal 36.0-48.0 [facility] Comment on above: Performed By: #### C BC #### [facility] [address] [place] [address] Dr. Blanquita Farris Hemoglobin (Bld) [Mass/Vol] 13.8 g/dL Normal 12.0-16.0 [facility] Comment on above: Performed By: #### C BC #### [facility] [address] [place] [address] Dr. Blanquita Farris IG # 0.04 10e3/ul Critically high 0.00-0.03 [facility] Comment on above: Performed By: #### C BC #### [facility] [address] [place] [address] Dr. Blanquita Farris IG % 0.6 % Critically high 0.0-0.5 [facility] Comment on above: Performed By: #### C BC #### [facility] [address] [place] [address] Dr. Blanquita Farris LYMPH # 1.2 103/ul Normal 1.2-3.8 [facility] Comment on above: Performed By: #### C BC #### [facility] [address] [place] [address] Dr. Blanquita Farris Lymphocytes/100 WBC (Bld) 18.0 % Critically low 20.5-60.0 [facility] Comment on above: Performed By: #### C BC #### [facility] [address] [place] [address] Dr. Blanquita Farris MANUAL DIFF REQ NO Normal [facility] Comment on above: Performed By: #### C BC #### [facility] [address] [place] [address] Dr. Blanquita Farris MCH (RBC) [Entitic mass] 26.8 pg Normal 26.7-34.0 [facility] Comment on above: Performed By: #### C BC #### [facility] [address] [place] [address] Dr. Blanquita Farris MCHC (RBC) [Mass/Vol] 32.3 g/dL Normal 29.9-35.2 [facility] Comment on above: Performed By: #### C BC #### [facility] [address] [place] [address] Dr. Blanquita Farris MCV (RBC) [Entitic vol] 83.1 fL Normal 81.0-99.0 [facility] Comment on above: Performed By: #### C BC #### [facility] [address] [place] [address] Dr. Blanquita Farris MONO # 0.4 103/ul Normal 0.3-0.8 [facility] Comment on above: Performed By: #### C BC #### [facility] [address] [place] [address] Dr. Blanquita Farris Monocytes/100 WBC (Bld) 5.4 % Normal 1.7-12.0 [facility] Comment on above: Performed By: #### C BC #### [facility] [address] [place] [address] Dr. Blanquita Farris NEUT # 5.0 103/ul Normal 1.4-6.5 [facility] Comment on above: Performed By: #### C BC #### [facility] [address] [place] [address] Dr. Blanquita Farris Neutrophils/100 WBC (Bld) 74.1 % Normal 43.0-75.0 [facility] Comment on above: Performed By: #### C BC #### [facility] [address] [place] [address] Dr. Blanquita Farris Platelet mean volume (Bld) [Entitic vol] 10.2 fL Normal 9.5-13.5 [facility] Comment on above: Performed By: #### C BC #### [facility] [address] [place] [address] Dr. Blanquita Farris PLT 180 103/ul Normal 150-450 [facility] Comment on above: Performed By: #### C BC #### [facility] [address] [place] [address] Dr. Blanquita Farris RBC 5.14 106/ul Normal 4.20-5.40 [facility] Comment on above: Performed By: #### C BC #### [facility] [address] [address] [address] Blanquita Farris WBC 6.8 103/ul Normal 4.0-11.0 [facility] Comment on above: Performed By: #### C BC #### [facility] [address] [address] [address] Blanquita Farris CPKon 10-19-2022 CK [Catalytic activity/Vol] 68 U/L Normal 26-192 [facility] Comment on above: Performed By: #### C MP, CK, TSH #### [facility] [address] [address] [address] Blanquita Farris MG MAMM SCREEN 3D SANTIAGO CADon 10-19-2022 MG MAMM SCREEN 3D SANTIAGO CAD Patient: RENETTA BARBOSA Exam Date: 10/19/2022 : 1960 Gender:F Ordering : [facility] Admission #: [id number] Family : DR TJ DUTTON Order #: [id number] CLICK HERE TO VIEW EXAM RADIOLOGY REPORT [...] breast cancer at age 80. LOCATION: [facility] BREAST COMPOSITION: Scattered areas fibroglandular density. FINDINGS: [...] MD on 10/19/2022 at 13:50 Normal [facility] PROF 14(COMP METB)on 023 Albumin [Mass/Vol] 3.7 g/dL Normal 3.4-5.0 [facility] Comment on above: Performed By: #### C MP, CK, TSH #### [facility] [address] [address] [address] Blanquita Farris Albumin/Globulin [Mass ratio] 0.8 {ratio} Normal [facility] Comment on above: Performed By: #### C MP, CK, TSH #### [facility] [address] [address] [address] Blanquita Farris ALP [Catalytic activity/Vol] 120 U/L Critically high 46-116 [facility] Comment on above: Performed By: #### C MP, CK, TSH #### [facility] [address] [address] [address] Blanquita Farris ALT [Catalytic activity/Vol] 31 U/L Normal 14-59 [facility] Comment on above: Performed By: #### C MP, CK, TSH #### [facility] [address] [address] [address] Blanquita Farris Anion gap [Moles/Vol] 14.2 mmol/L Normal [facility] Comment on above: Performed By: #### C MP, CK, TSH #### [facility] [address] [address] [address] Blanquita Farris AST [Catalytic activity/Vol] 19 U/L Normal 15-37 [facility] Comment on above: Performed By: #### C MP, CK, TSH #### [facility] [address] [address] [address] Blanquita Farris Bilirubin [Mass/Vol] 0.3 mg/dL Normal 0.2-1.0 [facility] Comment on above: Performed By: #### C MP, CK, TSH #### [facility] [address] [address] [address] Blanquita Farris Calcium [Mass/Vol] 9.4 mg/dL Normal 8.5-10.1 [facility] Comment on above: Performed By: #### C MP, CK, TSH #### [facility] [address] [address] [address] Blanquita Farris Chloride [Moles/Vol] 101 mmol/L Normal 98-107 [facility] Comment on above: Performed By: #### C MP, CK, TSH #### [facility] [address] [address] [address] Blanquita Farris CO2 [Moles/Vol] 28.4 mmol/L Normal 21.0-32.0 [facility] Comment on above: Performed By: #### C MP, CK, TSH #### [facility] [address] [address] [address] Blanquita Farris Creatinine [Mass/Vol] 1.04 mg/dL Critically high 0.55-1.02 [facility] Comment on above: Performed By: #### C MP, CK, TSH #### [facility] [address] [place] [address] Dr. Blanquita Farris EGFR-AF TURKMEN >60 Normal >=60 [facility] Comment on above: Performed By: #### C MP, CK, TSH #### [facility] [address] [address] [address] Blanquita Farris EGFR-NON AF TURKMEN 54 mL/min/1.73m2 Critically low >=60 [facility] Comment on above: Performed By: #### C MP, CK, TSH #### [facility] [address] [address] [address] Blanquita Farris Globulin (S) [Mass/Vol] 4.6 g/dL Normal [facility] Comment on above: Performed By: #### C MP, CK, TSH #### [facility] [address] [address] [address] Blanquita Farris Glucose [Mass/Vol] 194 mg/dL Critically high 74-106 T [facility] Comment on above: Performed By: #### C MP, CK, TSH #### [facility] [address] [address] [address] Blanquita Farris Potassium [Moles/Vol] 3.6 mmol/L Normal 3.5-5.1 [facility] Comment on above: Performed By: #### C MP, CK, TSH #### [facility] [address] [place] [address] Dr. Blanquita Farris Protein [Mass/Vol] 8.3 g/dL Critically high 6.4-8.2 [facility] Comment on above: Performed By: #### C MP, CK, TSH #### [facility] [address] [place] [address] Dr. Blanquita Farris Sodium [Moles/Vol] 140 mmol/L Normal 136-145 [facility] Comment on above: Performed By: #### C MP, CK, TSH #### [facility] [address] [place] [address] Dr. Blanquita Farris Urea nitrogen [Mass/Vol] 13.0 mg/dL Normal 7.0-18.0 [facility] Comment on above: Performed By: #### C MP, CK, TSH #### [facility] [address] [place] [address] Dr. Blanquita Farris Urea nitrogen/Creatinine [Mass ratio] 12.5 mg/mg Normal [facility] Comment on above: Performed By: #### C MP, CK, TSH #### [facility] [address] [place] [address] Dr. Blanquita Farris TSHon 10-19-2022 TSH 0.292 uIU/mL Critically low 0.358-3.740 [facility] Comment on above: Performed By: #### C MP, CK, TSH #### [facility] [address] [place] [address] Dr. Blanquita Farris VITAMIN B12on 10-19-2022 Cobalamin (Vitamin B12) [Mass/Vol] 912.0 pg/mL Normal 193.0-986.0 [facility] Comment on above: Performed By: #### V ITB12 #### [facility] [address] [place] [address] Dr. Blanquita Farris US SINGLE QUAD RT [...] KAILEE YANG Date: 2022-06-10 11:46 Normal [facility] US SPLEENon 06-10-2022 US SPLEEN EXAM: US [...] cm. No masses noted. Electronically authenticated by: KIALEE YANG Date: 2022-06-10 12:04 Normal [facility] LACTOFERRIN FECAL QUANTon Lactoferrin, Fecal, Quant. 1.96 ug/mL(g) Normal 0.00-7.24 [facility] Comment on above: Result Comment: . [...] (IBS). Performed By: #### I NSULIN #### [facility] [address] [place], [place] [id number] Dr. Blanquita Farris CALPROTECTIN, FECALon 2021 Calprotectin, Fecal 33 ug/g Normal 0-120 [facility] Comment on above: Result Comment: Conc entration Interpretation Follow-Up <16 - 50 ug/g Normal None >50 -120 ug/g Borderline Re-evaluate in 4-6 weeks >120 ug/g Abnormal Repeat as clinically indicated Performed By: #### C ALPOO #### [facility] [address] [place] [address] Dr. Blanquita Farris PANCREATIC ELASTASE FECALon 03-20-2022 Pancreatic Elastase, Fecal 364 ug Elast./g Normal >200 [facility] Comment on above: Result Comment: Korina re Pancreatic Insufficiency: <100 Moderate Pancreatic Insufficiency: 100 - 200 Normal: >200 Performed By: #### C BC #### [facility] [address] [place] [address] Dr. Blanquita Farris BOWEL DISORDERS EVALUATION R ULE-OUT CASCon 03-18-2022 Atypical pANCA Negative Normal Negative [facility] Comment on above: Performed By: #### C BC #### [facility] [address] [place] [address] Dr. Blanquita Farris Note: Comment Normal [facility] Comment on above: Result Comment: Sugg estive of Crohn's disease. Subsequent testing with the Crohn's Disease Prognostic Profile (292035) that includes antiglycan antibodies AMCA, ALCA, ACCA, and Xochitl may aid in the differentiation of clinical forms of CD and prognosis of disease progression. Performed By: #### C BC #### [facility] [address] [place] [address] Dr. Blanquita Farris Saccharomyces Cer. IgG 28.0 Units Critically high 0.0-24.9 [facility] Comment on above: Result Comment: Nega tive <20.0 Equivocal 20.1 - 24.9 Positive >or= 25.0 Performed By: #### C BC #### [facility] [address] [place] [address] Dr. Blanquita Farris tTG/DGP SCR Negative Normal Negative [facility] Comment on above: Performed By: #### C BC #### [facility] [address] [place] [address] Dr. Blanquita Farris INSULINon 03-16-2022 Insulin 43.0 uIU/mL Critically high 2.6-24.9 [facility] Comment on above: Performed By: #### I NSULIN #### [facility] [address] [place] [address] Dr. Blanquita Farris OCC BLD IMMUNO SCREENon 02-21 OCCULT BLOOD Negative Normal NEGATIVE [facility] Comment on above: Performed By: #### C BC #### [facility] [address] [place] [address] Dr. Blanquita Farris CBC AUTO DIFFon 03-15-2022 BASO # 0.0 103/ul Normal 0.0-0.1 [facility] Comment on above: Performed By: #### C BC #### [facility] [address] [place] [address] Dr. Blanquita Farris Basophils/100 WBC (Bld) 0.7 % Normal 0.2-2.0 [facility] Comment on above: Performed By: #### C BC #### [facility] [address] [place] [address] Dr. Blanquita Farris EO # 0.2 103/ul Normal 0.0-0.7 [facility] Comment on above: Performed By: #### C BC #### [facility] [address] [place] [address] Dr. Blanquita Farris Eosinophils/100 WBC (Bld) 2.7 % Normal 0.9-7.0 [facility] Comment on above: Performed By: #### C BC #### [facility] [address] [place] [address] Dr. Blanquita Farris Erythrocyte distribution width (RBC) [Ratio] 14.8 % Normal 11.0-15.0 [facility] Comment on above: Performed By: #### C BC #### [facility] [address] [place] [address] Dr. Blanquita Farris Hematocrit (Bld) [Volume fraction] 43.4 % Normal 36.0-48.0 [facility] Comment on above: Performed By: #### C BC #### [facility] [address] [address] [address] Blanquita Farris Hemoglobin (Bld) [Mass/Vol] 14.1 g/dL Normal 12.0-16.0 [facility] Comment on above: Performed By: #### C BC #### [facility] [address] [address] [address] Blanquita Farris IG # 0.03 10e3/ul Normal 0.00-0.03 [facility] Comment on above: Performed By: #### C BC #### [facility] [address] [address] [address] Blanquita Farris IG % 0.5 % Normal 0.0-0.5 [facility] Comment on above: Performed By: #### C BC #### [facility] [address] [address] [address] Blanquita Farris LYMPH # 1.1 103/ul Critically low 1.2-3.8 [facility] Comment on above: Performed By: #### C BC #### [facility] [address] [address] [address] Blanquita Farris Lymphocytes/100 WBC (Bld) 18.9 % Critically low 20.5-60.0 [facility] Comment on above: Performed By: #### C BC #### [facility] [address] [address] [address] Blanquita Farris MANUAL DIFF REQ NO Normal [facility] Comment on above: Performed By: #### C BC #### [facility] [address] [address] [address] Blanquita Farris MCH (RBC) [Entitic mass] 27.9 pg Normal 26.7-34.0 [facility] Comment on above: Performed By: #### C BC #### [facility] [address] [address] [address] Blanquita Farris MCHC (RBC) [Mass/Vol] 32.5 g/dL Normal 29.9-35.2 [facility] Comment on above: Performed By: #### C BC #### [facility] [address] [address] [address] Blanquita Farris MCV (RBC) [Entitic vol] 85.8 fL Normal 81.0-99.0 [facility] Comment on above: Performed By: #### C BC #### [facility] [address] [address] [address] Blanquita Farris MONO # 0.4 103/ul Normal 0.3-0.8 [facility] Comment on above: Performed By: #### C BC #### [facility] [address] [place] [address] Dr. Blanquita Farris Monocytes/100 WBC (Bld) 7.2 % Normal 1.7-12.0 [facility] Comment on above: Performed By: #### C BC #### [facility] [address] [place] [address] Dr. Blanquita Farris NEUT # 4.1 103/ul Normal 1.4-6.5 [facility] Comment on above: Performed By: #### C BC #### [facility] [address] [place] [address] Dr. Blanquita Farris Neutrophils/100 WBC (Bld) 70.0 % Normal 43.0-75.0 [facility] Comment on above: Performed By: #### C BC #### [facility] [address] [place] [address] Dr. Blanquita Farris Platelet mean volume (Bld) [Entitic vol] 10.4 fL Normal 9.5-13.5 [facility] Comment on above: Performed By: #### C BC #### [facility] [address] [place] [address] Dr. Blanquita Farris PLT 158 103/ul Normal 150-450 [facility] Comment on above: Performed By: #### C BC #### [facility] [address] [place] [address] Dr. Blanquita Farris RBC 5.06 106/ul Normal 4.20-5.40 [facility] Comment on above: Performed By: #### C BC #### [facility] [address] [address] [address] Blanquita Farris WBC 5.9 103/ul Normal 4.0-11.0 [facility] Comment on above: Performed By: #### C BC #### [facility] [address] [address] [address] Blanquita Farris FREE THYROXINE INDEX T7on FTI 4.00 Normal 1.30-4.50 [facility] Comment on above: Performed By: #### C BC #### [facility] [address] [address] [address] Blanquita Farris T3U 31.0 % Normal 30.0-39.0 [facility] Comment on above: Performed By: #### C BC #### [facility] [address] [place] [address] Dr. Blanquita Farris T4 [Mass/Vol] 12.90 ug/dL Normal 4.80-13.90 [facility] Comment on above: Performed By: #### C BC #### [facility] [address] [address] [address] Blanquita Farris GLYCOHEMOGLOBIN A1Con 2021 ADA RECOMMENDATION SEE BELOW Normal [facility] Comment on above: Result Comment: ADA RECOMMENDED LIMIT 4.0 - 6.0 ADA THERAPEUTIC TARGET < 7.0 ACTION SUGGESTED > 7.0 Performed By: #### A 1C #### [facility] [address] [address] [address] Blanquita Farris Glucose [Mass/Vol] 146 mg/dL Normal [facility] Comment on above: Performed By: #### A 1C #### [facility] [address] [address] [address] Blanquita Farris HbA1c (Bld) [Mass fraction] 6.7 % Critically high 4.5-6.2 [facility] Comment on above: Performed By: #### A 1C #### [facility] [address] [address] [address] Blanquita Farris IRONon 03-15-2022 Iron [Mass/Vol] 67.0 ug/dL Normal 50.0-170.0 [facility] Comment on above: Performed By: #### I KEON #### [facility] [address] [address] [address] Blanquita Farris LIPID PROFILEon 03-15-2022 CHOL-HDL RATIO NORM SEE BELOW Normal [facility] Comment on above: Result Comment: 3.3 - 4.4 LOW RISK 4.4 - 7.1 AVERAGE RISK 7.1 - 11.0 MODERATE RISK >11.0 HIGH RISK Performed By: #### C BC #### [facility] [address] [address] [address] Blanquita Farris Cholesterol [Mass/Vol] 137 mg/dL Normal <=200 [facility] Comment on above: Performed By: #### C BC #### [facility] [address] [address] [address] Blanquita Farris Cholesterol in HDL [Mass/Vol] 52 mg/dL Normal 40-60 [facility] Comment on above: Performed By: #### C BC #### [facility] [address] [address] [address] Blanquita Farris Cholesterol in LDL [Mass/Vol] 62.0 mg/dL Normal [facility] Comment on above: Performed By: #### C BC #### [facility] [address] [address] [address] Blanquita Farris Cholesterol.total/C holesterol in HDL [Mass ratio] 2.6 {ratio} Normal [facility] Comment on above: Performed By: #### C BC #### [facility] [address] [address] [address] Blanquita Farris HDL NORMAL > or = 60 mg/dl - LO W CARDIOVASCULAR RISK <40 mg/dl - HIGH CARDIOVASCULAR RISK Normal [facility] Comment on above: Performed By: #### C BC #### [facility] [address] [address] [address] Blanquita Farris LDL CALC NORMAL SEE BELOW Normal [facility] Comment on above: Result Comment: <100 mg/dl OPTIMAL 100 - 129 mg/dl NEAR OR ABOVE OPTIMAL 130 - 159 mg/dl BORDERLINE HIGH 160 - 189 mg/dl HIGH >190 mg/dl VERY HIGH Performed By: #### C BC #### [facility] [address] [address] [address] Blanquita Farris Triglyceride [Mass/Vol] 115 mg/dL Normal <=150 [facility] Comment on above: Performed By: #### C BC #### [facility] [address] [address] [address] Blanquita Farris VLDL CALC 23.0 mg/dL Normal [facility] Comment on above: Performed By: #### C BC #### [facility] [address] [place] [address] Dr. Blanquita Farris PROF 14(COMP METB)on 022 Albumin [Mass/Vol] 4.1 g/dL Normal 3.4-5.0 [facility] Comment on above: Performed By: #### C BC #### [facility] [address] [place] [address] Dr. Blanquita Farris Albumin/Globulin [Mass ratio] 1.0 {ratio} Normal [facility] Comment on above: Performed By: #### C BC #### [facility] [address] [place] [address] Dr. Blanquita Farris ALP [Catalytic activity/Vol] 94 U/L Normal 46-116 [facility] Comment on above: Performed By: #### C BC #### [facility] [address] [place] [address] Dr. Blanquita Farris ALT [Catalytic activity/Vol] 32 U/L Normal 14-59 [facility] Comment on above: Performed By: #### C BC #### [facility] [address] [place] [address] Dr. Blanquita Farris Anion gap [Moles/Vol] 8.8 mmol/L Normal [facility] Comment on above: Performed By: #### C BC #### [facility] [address] [place] [address] Dr. Blanquita Farris AST [Catalytic activity/Vol] 26 U/L Normal 15-37 [facility] Comment on above: Performed By: #### C BC #### [facility] [address] [place] [address] Dr. Blanquita Farris Bilirubin [Mass/Vol] 0.4 mg/dL Normal 0.2-1.0 [facility] Comment on above: Performed By: #### C BC #### [facility] [address] [place] [address] Dr. Blanquita Farris Calcium [Mass/Vol] 9.0 mg/dL Normal 8.5-10.1 [facility] Comment on above: Performed By: #### C BC #### [facility] [address] [address] [address] Blanquita Farris Chloride [Moles/Vol] 100 mmol/L Normal 98-107 [facility] Comment on above: Performed By: #### C BC #### [facility] [address] [place] [address] Dr. Blanquita Farris CO2 [Moles/Vol] 31.6 mmol/L Normal 21.0-32.0 [facility] Comment on above: Performed By: #### C BC #### [facility] [address] [place] [address] Dr. Blanquita Farris Creatinine [Mass/Vol] 0.87 mg/dL Normal 0.55-1.02 [facility] Comment on above: Performed By: #### C BC #### [facility] [address] [place] [address] Dr. Blanquita Farris EGFR-AF TURKMEN >60 Normal >=60 [facility] Comment on above: Performed By: #### C BC #### [facility] [address] [place] [address] Dr. Blanquita Farris EGFR-NON AF TURKMEN >60 Normal >=60 [facility] Comment on above: Performed By: #### C BC #### [facility] [address] [place] [address] Dr. Blanquita Farris Globulin (S) [Mass/Vol] 4.0 g/dL Normal [facility] Comment on above: Performed By: #### C BC #### [facility] [address] [place] [address] Dr. Blanquita Farris Glucose [Mass/Vol] 192 mg/dL Critically high 74-106 [facility] Comment on above: Performed By: #### C BC #### [facility] [address] [address] [address] Blanquita Farris Potassium [Moles/Vol] 3.4 mmol/L Critically low 3.5-5.1 [facility] Comment on above: Performed By: #### C BC #### [facility] [address] [address] [address] Blanquita Farris Protein [Mass/Vol] 8.1 g/dL Normal 6.4-8.2 [facility] Comment on above: Performed By: #### C BC #### [facility] [address] [address] [address] Blanquita Farris Sodium [Moles/Vol] 137 mmol/L Normal 136-145 [facility] Comment on above: Performed By: #### C BC #### [facility] [address] [address] [address] Blanquita Farris Urea nitrogen [Mass/Vol] 9.0 mg/dL Normal 7.0-18.0 [facility] Comment on above: Performed By: #### C BC #### [facility] [address] [address] [address] Blanquita Farris Urea nitrogen/Creatinine [Mass ratio] 10.3 mg/mg Normal [facility] Comment on above: Performed By: #### C BC #### [facility] [address] [address] [address] Blanquita Farris PROTIMEon 03-15-2022 INR Coag (PPP) [Relative time] 1.15 {INR} Normal [facility] Comment on above: Performed By: #### C BC #### [facility] [address] [address] [address] Blanquita Farris INR GUIDELINES SEE BELOW Normal [facility] Comment on above: Result Comment: SOLANGE RED INR: 2.0 - 3.0 CONDITIONS NOT LISTED BELOW 2.5 - 3.5 FOR PROSTHETIC HEART VALVE REPLACEMENT 2.5 - 3.5 RECURRENT THROMBOSIS Performed By: #### C BC #### [facility] [address] [address] [address] Blanquita Farris PT Coag (PPP) [Time] 12.3 s Critically high 9.0-11.6 [facility] Comment on above: Performed By: #### C BC #### [facility] [address] [address] [address] Blanquita Farris TSHon 03-15-2022 TSH 0.342 uIU/mL Critically low 0.358-3.740 [facility] Comment on above: Performed By: #### C BC #### [facility] [address] [address] [address] Blanquita Farris Progress Noteson 02-16-2022 [employer] Authentication Interface Message Text EMERGENCY TRIAGE, TREAT AND TRANSPORT (ET3) DOCUMENTATION OF TELEHEALTH VISIT Date / Time: 02/16/2022 / 6:00 AM Name: Renetta Barbosa : 1960 SSN: (Not on file) EMS Agency: [facility] [] Verbal consent obtained [] [...] Completed by: Pedro Arechiga MD Normal The [facility] US SINGLE QUAD RT UPPERon US [...] LEONEL MATA Date: 2021-11-25 17:56 Normal The [facility] ACETONE SERUMon 05-17-2021 ACETONE Negative Normal NEGATIVE [facility] Comment on above: Performed By: #### A CETON #### [facility] [address] [place] [address] Dr. Blanquita Farris CBC W MANUAL DIFFon 05-17-20 21 ATYPICAL LYMPH # Normal [facility] Comment on above: Performed By: #### C BCMAN #### [facility] [address] [place] [address] Dr. Blanquita Farris ATYPICAL LYMPH % Normal [facility] Comment on above: Performed By: #### C BCMAN #### [facility] [address] [place] [address] Dr. Blanquita Farris BAND # Normal 0.0-0.3 [facility] Comment on above: Performed By: #### C BCMAN #### [facility] [address] [address] [address] Blanquita Farris BAND % Normal 0-5 [facility] Comment on above: Performed By: #### C BCMAN #### [facility] [address] [address] [address] Blanquita Farris BASOM # 0.00 103/ul Normal 0.00-0.10 [facility] Comment on above: Performed By: #### C BCMAN #### [facility] [address] [place] [address] Dr. Blanquita Farris BASOM % 0.0 % Critically low 0.2-2.0 [facility] Comment on above: Performed By: #### C BCDALI #### [facility] [address] [address] [address] Blanquita Farris BLAST # Normal [facility] Comment on above: Performed By: #### C BCDALI #### [facility] [address] [address] [address] Blanquita Farris BLAST % Normal [facility] Comment on above: Performed By: #### C BCDALI #### [facility] [address] [place] [address] Dr. Blanquita Farris CORRECTED WBC Normal 4.0-11.0 [facility] Comment on above: Performed By: #### C BRIGETTE #### [facility] [address] [place] [address] Dr. Blanquita Farris EOS # 0.00 103/ul Normal 0.00-0.70 [facility] Comment on above: Performed By: #### C BRIGETTE #### [facility] [address] [place] [address] Dr. Blanquita Farris EOS% 0.0 % Critically low 0.9-7.0 [facility] Comment on above: Performed By: #### C BRIGETTE #### [facility] [address] [place] [address] Dr. Blanquita Farris HCT 40.7 % Normal 36.0-48.0 [facility] Comment on above: Performed By: #### C BRIGETTE #### [facility] [address] [place] [address] Dr. Blanquita Farris HGB 12.9 g/dl Normal 12.0-16.0 [facility] Comment on above: Performed By: #### C BCDALI #### [facility] [address] [place] [address] Dr. Blanqiuta Farris LYMPHM # 0.63 103/ul Critically low 1.20-3.80 [facility] Comment on above: Performed By: #### C BRIGETTE #### [facility] [address] [place] [address] Dr. Blanquita Farris LYMPHM% 18.0 % Critically low 20.5-60.0 [facility] Comment on above: Performed By: #### C BRIGETTE #### [facility] [address] [place] [address] Dr. Blanquita Farris MCH 28.4 pg Normal 26.7-34.0 [facility] Comment on above: Performed By: #### C BRIGETTE #### [facility] [address] [place] [address] Dr. Blanquita Farris MCHC 31.7 g/dl Normal 29.9-35.2 [facility] Comment on above: Performed By: #### C BRIGETTE #### [facility] [address] [place] [address] Dr. Blanquita Farris MCV 89.5 fL Normal 81.0-99.0 [facility] Comment on above: Performed By: #### C BRIGETTE #### [facility] [address] [place] [address] Dr. Blanquita Farris METAMYELOCYTE # Normal [facility] Comment on above: Performed By: #### C BRIGETTE #### [facility] [address] [place] [address] Dr. Blanquita Farris METAMYELOCYTE % Normal [facility] Comment on above: Performed By: #### C BRIGETTE #### [facility] [address] [place] [address] Dr. Blanquita Farris MONOM# 0.14 103/ul Critically low 0.30-0.80 [facility] Comment on above: Performed By: #### C BRIGETTE #### [facility] [address] [place] [address] Dr. Blanquita Farris MONOM% 4.0 % Normal 1.7-12.0 [facility] Comment on above: Performed By: #### C BCDALI #### [facility] [address] [place] [address] Dr. Blanquita Farris MPV 12.1 fL Normal 9.5-13.5 [facility] Comment on above: Performed By: #### C BRIGETTE #### [facility] [address] [place] [address] Dr. Blanquita Farris MYELOCYTE # Normal [facility] Comment on above: Performed By: #### C BRIGETTE #### [facility] [address] [place] [address] Dr. Blanquita Farris MYELOCYTE % Normal [facility] Comment on above: Performed By: #### C BRIGETTE #### [facility] [address] [address] [address] Blanquita Farris NRBC Normal [facility] Comment on above: Performed By: #### C BRIGETTE #### [facility] [address] [address] [address] Blanquita Farris PLT 121 103/ul Critically low 150-450 [facility] Comment on above: Performed By: #### C BRIGETTE #### [facility] [address] [place] [address] Dr. Blanquita Farris RBC 4.55 106/ul Normal 4.20-5.40 [facility] Comment on above: Performed By: #### C BRIGETTE #### [facility] [address] [place] [address] Dr. Blanquita Farris RDW 15.8 % Critically high 11.0-15.0 [facility] Comment on above: Performed By: #### C BRIGETTE #### [facility] [address] [place] [address] Dr. Blanquita Farris SEG # 2.73 103/ul Normal 1.40-6.50 [facility] Comment on above: Performed By: #### C BRIGETTE #### [facility] [address] [place] [address] Dr. Blanquita Farris SEG % 78.0 % Critically high 43.0-75.0 [facility] Comment on above: Performed By: #### C BRIGETTE #### [facility] [address] [place] [address] Dr. Blanquita Farris WBC 3.5 103/ul Critically low 4.0-11.0 [facility] Comment on above: Performed By: #### C BRIGETTE #### [facility] [address] [place] [address] CSPINE WO CONon [...] KEYSHA NAIDU Date: 2021-05-17 09:10 Normal [facility] URINE PROFILEon 1 Bilirubin Ql (U) Negative Normal NEGATIVE [facility] Comment on above: Performed By: #### E RUR #### [facility] [address] [place] [address] Dr. Blanquita Farris Clarity (U) CLEAR Normal CLEAR [facility] Comment on above: Performed By: #### E RUR #### [facility] [address] [place] [address] Dr. Blanquita Farris Color (U) LT. YELLOW Normal YELLOW [facility] Comment on above: Performed By: #### E RUR #### [facility] [address] [place] [address] Dr. Blanquita Farris ERUAHD A micrscopic examination will be performed if indicated. Normal [facility] Comment on above: Performed By: #### E RUR #### [facility] [address] [place] [address] Dr. Blanquita Farris Glucose Ql (U) 100 mg/dl Abnormal NEGATIVE [facility] Comment on above: Performed By: #### E RUR #### [facility] [address] [place] [address] Dr. Blanquita Farris Hemoglobin Ql (U) Negative Normal NEGATIVE [facility] Comment on above: Performed By: #### E RUR #### [facility] [address] [place] [address] Dr. Blanquita Farris Ketones Ql (U) Negative Normal NEGATIVE [facility] Comment on above: Performed By: #### E RUR #### [facility] [address] [place] [address] Dr. Blanquita Farris LEUKOCYTES Negative Normal NEGATIVE [facility] Comment on above: Performed By: #### E RUR #### [facility] [address] [place] [address] Dr. Blanquita Farris Nitrite Ql (U) Negative Normal NEGATIVE [facility] Comment on above: Performed By: #### E RUR #### [facility] [address] [place] [address] Dr. Blanquita Farris pH (U) 7.0 [pH] Normal 5-9 [facility] Comment on above: Performed By: #### E RUR #### [facility] [address] [place] [address] Dr. Blanquita Farris SPEC GRAVITY 1.015 Normal 1.005-<=1.025 [facility] Comment on above: Performed By: #### E RUR #### [facility] [address] [place] [address] Dr. Blanquita Farris UA PROTEIN Negative Normal NEGATIVE/ TRACE [facility] Comment on above: Performed By: #### E RUR #### [facility] [address] [place] [address] Dr. Blanquita Farris UR MICRO IND NOT INDICATED Normal [facility] Comment on above: Performed By: #### E RUR #### [facility] [address] [place] [address] Dr. Blanquita Farris Urobilinogen Qn (U) 0.2 {Chevy'U}/dL Normal 0.2 - 1. 0 [facility] Comment on above: Performed By: #### E RUR #### [facility] [address] [place] [address] Dr. Blanquita Farris POINT OF CARE GLUCOSEon 04-23 Glucose [Mass/Vol] 234 mg/dL Critically high 74-106 T [facility] Comment on above: Performed By: #### P OCGLUC #### [facility] [address] [place] [address] Dr. Blanquita Farris PROF 14(COMP METB)on 021 Albumin [Mass/Vol] 3.5 g/dL Normal 3.5-5.0 [facility] Comment on above: Performed By: #### C MP #### [facility] [address] [place] [address] Dr. Blanquita Farris Albumin/Globulin [Mass ratio] 0.9 {ratio} Normal [facility] Comment on above: Performed By: #### C MP #### [facility] [address] [place] [address] Dr. Blanquita Farris ALP [Catalytic activity/Vol] 73 U/L Normal 38-126 [facility] Comment on above: Performed By: #### C MP #### [facility] [address] [place] [address] Dr. Blanquita Farris ALT [Catalytic activity/Vol] 39 U/L Normal 9-52 [facility] Comment on above: Performed By: #### C MP #### [facility] [address] [place] [address] Dr. Blanquita Farris Anion gap [Moles/Vol] 12.9 mmol/L Normal [facility] Comment on above: Performed By: #### C MP #### [facility] [address] [place] [address] Dr. Blnaquita Farris AST [Catalytic activity/Vol] 33 U/L Normal 14-36 [facility] Comment on above: Performed By: #### C MP #### [facility] [address] [address] [address] Blanquita Farris Bilirubin [Mass/Vol] 0.3 mg/dL Normal 0.2-1.3 [facility] Comment on above: Performed By: #### C MP #### [facility] [address] [address] [address] Blanquita Farris Calcium [Mass/Vol] 8.9 mg/dL Normal 8.4-10.2 [facility] Comment on above: Performed By: #### C MP #### [facility] [address] [address] [address] Blanquita Farris Chloride [Moles/Vol] 105 mmol/L Normal 98-107 [facility] Comment on above: Performed By: #### C MP #### [facility] [address] [place] [address] Dr. Blanquita Farris CO2 [Moles/Vol] 28.3 mmol/L Normal 22.0-30.0 [facility] Comment on above: Performed By: #### C MP #### [facility] [address] [place] [address] Dr. Blanquita Farris Creatinine [Mass/Vol] 0.75 mg/dL Normal 0.52-1.04 [facility] Comment on above: Performed By: #### C MP #### [facility] [address] [place] [address] Dr. Blanquita Farris EGFR-AF TURKMEN >60 Normal >=60 [facility] Comment on above: Performed By: #### C MP #### [facility] [address] [place] [address] Dr. Blanquita Farris EGFR-NON AF TURKMEN >60 Normal >=60 [facility] Comment on above: Performed By: #### C MP #### [facility] [address] [place] [address] Dr. Blanquita Farris Globulin (S) [Mass/Vol] 3.8 g/dL Normal [facility] Comment on above: Performed By: #### C MP #### [facility] [address] [place] [address] Dr. Blanquita Farris Glucose [Mass/Vol] 173 mg/dL Critically high 74-106 T [facility] Comment on above: Performed By: #### C MP #### [facility] [address] [address] [address] Blanquita Farris Potassium [Moles/Vol] 3.2 mmol/L Critically low 3.4-5.0 [facility] Comment on above: Performed By: #### C MP #### [facility] [address] [address] [address] Blanquita Farris Protein [Mass/Vol] 7.3 g/dL Normal 6.1-8.2 [facility] Comment on above: Performed By: #### C MP #### [facility] [address] [place] [address] Dr. Blanquita Farris Sodium [Moles/Vol] 143 mmol/L Normal 137-145 [facility] Comment on above: Performed By: #### C MP #### [facility] [address] [place] [address] Dr. Blanquita Farris Urea nitrogen [Mass/Vol] 11.0 mg/dL Normal 7.0-17.0 [facility] Comment on above: Performed By: #### C MP #### [facility] [address] [place] [address] Dr. Blanquita Farris Urea nitrogen/Creatinine [Mass ratio] 14.7 mg/mg Normal [facility] Comment on above: Performed By: #### C MP #### [facility] [address] [place] [address] Dr. Blanquita Farris DIGITAL MAMMOGRAM SCREENING BILATERAL 11-22-2018 DIGITAL MAMMOGRAM SCREENING BILATERAL [facility] Department of Radiology [address] [place] [id number] ======== Patient Name: RENETTA HERNANDEZ : 1960 Sex: F Age: Race: White Pt. Location: [facility] Patient Status: D Ordered Date: 10/11/2018 3:20:00 PM Completed Date: 11/22/2018 12:09 PM Requesting Provider: DES GLYNN Attending Provider: DES GLYNN Report Copy To: Signs & Symptoms: Z12.31 Encntr screen mammogram for malignant neoplasm of breast I10 History: [place] Previous study [facility] 07/16/17 Comments: , Additional imaging, if necessary?: [...] recommended. Electronically signed by:Summer Cage. Transcribed by: [email or web address], User Resident: Electronically Signed by: SUMMER CAGE [...] above: Performed By: #### 5 [id number] #### [facility] [address] FREE T4on 09-20-2018 Free T4 [Mass/Vol] 0.93 ng/dL Normal 0.71-1.85 [facility] Comment on above: Performed By: #### 3 1522, [id number], [id number], [id number] #### [facility] [address] [place] [address], [facility] HEMOGLOBIN A1Con 09-20-2018 HbA1c (Bld) [Mass fraction] 269 mg/dL High 70-126 [facility] Comment on above: Performed By: #### 4 [id number] #### [facility] [address] [place] [address], [facility] HbA1c (Bld) [Mass fraction] 11.0 % High 4.0-6.0 [facility] Comment on above: Performed By: #### 4 [id number] #### [facility] [address] [place] [address], [facility] LIPID PROFILEon 09-20-2018 Cholesterol [Mass/Vol] 164 mg/dL Normal 120-200 [facility] Comment on above: Result Comment: CHOL ESTEROL REFERENCE RANGE: 20 YEARS AND OLDER CARDIOVASCULAR RISK Less than 200 mg/dl Low Risk 200 to 239 mg/dl Borderline Risk 240 mg/dl and greater High Risk Performed By: #### 3 1522, [id number], 30686, [id number] #### [facility] [address] [place] [address], [place] Cholesterol in HDL [Mass/Vol] 30 mg/dL Normal 23-92 [facility] Comment on above: Result Comment: Slig ht variation in normal range could be due to gender and/or age. HDL CHOLESTEROL REFERENCE RANGE: 20 years and older Cardiovascular Risk > or =60 mg/dL Desirable 40 TO 59 mg/dL Low Risk <40 mg/dL High Risk Performed By: #### 3 1522, 16863, 34898, 12456 #### [facility] [address] [place] [address], [place] Cholesterol in LDL [Mass/Vol] 91 mg/dL Normal 0-130 [facility] Comment on above: Result Comment: LDL IS A CALCULATION LDL IS ONLY VALID IF THE TRIG IS LESS THAN 400. Performed By: #### 3 1522, 31620, 88124, 11926 #### [facility] [address] [place] [address], [place] Cholesterol.total/C holesterol in HDL [Mass ratio] 5.5 {ratio} High .0-4.5 [facility] Comment on above: Performed By: #### 3 1522, 89518, 06188, 91193 #### [facility] [address] [place] [address], [place] NON-HDL CHOLESTEROL 134 mg/dL Normal [facility] Comment on above: Performed By: #### 3 1522, 69858, 33081, 29456 #### [facility] [address] [place] [address], [place] Triglyceride [Mass/Vol] 215 mg/dL High 40-149 [facility] Comment on above: Result Comment: TRIG LYCERIDE REFERENCE RANGE: 20 YEARS AND OLDER CARDIOVASCULAR RISK LESS THAN 150 mg/dl LOW RISK 150 TO 199 mg/dl BORDERLINE RISK 200 mg/dl AND GREATER HIGH RISK Performed By: #### 3 1522, 04581, 04250, 51547 #### [facility] [address] [place] [address], [facility] VLDL CHOL 43 mg/dL High 0-40 [facility] Comment on above: Performed By: #### 3 1522, [id number], [id number], [id number] #### [facility] [address] [place] [address], [place] MICROALBUMIN URINE RANDOMon 09-20-2018 Creatinine [Mass/Vol] 148.0 mg/dL Normal [facility] Comment on above: Result Comment: Ther e are no established reference values for random urine specimens Performed By: #### 3 0067 #### [facility] [address] [place] [address], [facility] MICROALBUMIN <1.0 Normal [facility] Comment on above: Performed By: #### 3 0067 #### [facility] [address] [place] [address], [facility] MICROALBUMIN/CREATI NINE RATIO 'UNABLE TO CALC Normal 0.0-30.0 [facility] Comment on above: Performed By: #### 3 0067 #### [facility] [address] [place] [address], [facility] TSH3on 09-20-2018 TSH 3RD GENERATION 1.53 uIU/mL Normal 0.34-5.60 [facility] Comment on above: Performed By: #### 3 1522, [id number], [id number], [id number] #### [facility] [address] [place] [address], [facility] VITAMIN D 25-HYDROXYon 09-20 VITAMIN D 25-OH 33.8 ng/mL Normal 30.0-80.0 [facility] Comment on above: Result Comment: >80. 0 Toxicity possible Performed By: #### 3 1522, [id number], [id number], [id number] #### [address] [address], [facility] US HEPATIC ECHOGRAMon 2018 US HEPATIC ECHOGRAM [facility] Department of Radiology [address] [facility] [place] [address] ======== Patient Name: RENETTA HERNANDEZ : 1960 Sex: F Age: Race: White Pt. Location: [facility] Patient Status: O Ordered Date: 06/19/2018 3:35:00 PM Completed Date: 08/22/2018 10:39 AM Requesting Provider: ANGELIQUE BENNETT Attending Provider: ANGELIQUE BENNETT Report Copy To: FAINA CHAPMAN Signs & Symptoms: K74.60 Unspecified cirrhosis of liver I10 History: [place] Comments: , , , Ordering Provider - [...] signed by:Russell De La Rosa. Transcribed by: [email or web address], User Resident: Electronically Signed by: RUSSELL DE LA ROSA @ 08/22/2018 12:53 PM Normal [facility] Comment on above: Order Comment: , , = ========= , Ordering Provider - ANGELIQUE BENNETT MD , US ABDOMINAL FOR ASCITES JIMENEZ ITEDon 06-28-2018 US ABDOMINAL FOR ASCITES LIMITED [facility] Department of Radiology [address] [place] [id number] ======== Patient Name: RENETTA HERNANDEZ : 1960 Sex: F Age: Race: White Pt. Location: [facility] Patient Status: O Ordered Date: 06/19/2018 3:35:00 [...] signed by:Russell De La Rosa. Transcribed by: [email or web address], User Resident: LAST [place]AN[place] Electronically Signed by: [...] above: Performed By: #### 0 0121 #### [facility] [address] [place] [address], [facility] ALKALINE PHOSPH 67 IU/L Normal 34-104 [facility] Comment on above: Performed By: #### 0 0121 #### [facility] [address] [place] [address], [place] ALT [Catalytic activity/Vol] 21 U/L Normal 7-52 [facility] Comment on above: Performed By: #### 0 0121 #### [facility] [address] [place] [address], [place] AST [Catalytic activity/Vol] 22 U/L Normal 13-39 [facility] Comment on above: Performed By: #### 0 0121 #### [facility] [address] [place] [address], [place] Bilirubin [Mass/Vol] 0.5 mg/dL Normal 0.3-1.0 [facility] Comment on above: Performed By: #### 0 0121 #### [facility] [address] [place] [address], [place] Calcium [Mass/Vol] 9.7 mg/dL Normal 8.6-10.3 [facility] Comment on above: Performed By: #### 0 0121 #### [facility] [address] [place] [address], [place] Chloride [Moles/Vol] 103 mmol/L Normal 98-107 [facility] Comment on above: Performed By: #### 0 0121 #### [facility] [address] [place] [address], [place] CO2 [Moles/Vol] 28 mmol/L Normal 21-31 [facility] Comment on above: Performed By: #### 0 0121 #### [facility] [address] [place] [address], [place] Creatinine [Mass/Vol] 0.89 mg/dL Normal 0.60-1.20 [facility] Comment on above: Performed By: #### 0 0121 #### [facility] [address] [place] [address], [place] GFR/1.73 sq M predicted among blacks MDRD (S/P/Bld) [Vol rate/Area] mL/min/{1.73_m2} Normal >60 [facility] Comment on above: Performed By: #### 0 0121 #### [facility] [address] [place] [address], [place] GFR/1.73 sq M predicted among non-blacks MDRD (S/P/Bld) [Vol rate/Area] mL/min/{1.73_m2} Normal >60 [facility] Comment on above: Performed By: #### 0 0121 #### [facility] [address] [place] [address], [facility] Glucose [Mass/Vol] 175 mg/dL High 70-100 [facility] Comment on above: Performed By: #### 0 0121 #### [facility] [address] [place] [address], [facility] Potassium [Moles/Vol] 3.8 mmol/L Normal 3.5-5.1 [facility] Comment on above: Performed By: #### 0 0121 #### [facility] [address] [facility] [place] [address], [facility] Protein [Mass/Vol] 7.5 g/dL Normal 6.0-8.3 [facility] Comment on above: Performed By: #### 0 0121 #### [facility] [address] [place] [address], [facility] Sodium [Moles/Vol] 139 mmol/L Normal 136-145 [facility] Comment on above: Performed By: #### 0 0121 #### [facility] [address] [place] [address], [facility] Urea nitrogen [Mass/Vol] 14 mg/dL Normal 7-25 [facility] Comment on above: Performed By: #### 0 0121 #### [facility] [address] [address] [facility] PROTHROMBIN TIMEon 9 INR Coag (PPP) [...] 1995;108:[id number]-246S. Performed By: #### 5 6101 #### [facility] [address] [facility]. [address] PT Coag (PPP) [Time] 14.9 s High 12.3-14.8 [facility] Comment on above: Result Comment: ALL RESULTS MUST BE INTERPRETED WITH RESPECT TO BLOOD DRAWING ARTIFACT OR DILUTION ERROR OF ANTICOAGULANT AT THE TIME OF SAMPLING. Performed By: #### 5 [id number] #### [facility] [address] [facility]. [address] Vital Signs Date Time Vital Sign Value Performing Clinician Facility 10-30-2024 14:20-0400 Body height 157.5 cm Ze Solis MD Work Phone: [facility] 10-30-2024 14:20-0400 Body mass index (BMI) [Ratio] 34.02 kg/m2 Ze Solis MD Work Phone: [facility] 10-30-2024 14:20-0400 Body weight 84.37 kg Ze Solis MD Work Phone: [facility] 10-30-2024 14:20-0400 Diastolic blood pressure 80 mm[Hg] Ze Solis MD Work Phone: [facility] 10-30-2024 14:20-0400 Heart rate 99 /min Ze Solis MD Work Phone: [facility] 10-30-2024 14:20-0400 Respiratory rate 20 /min Ze Solis MD Work Phone: [facility] 10-30-2024 14:20-0400 SaO2% (BldA) [Mass fraction] 96 % Ze Solis MD Work Phone: [facility] 10-30-2024 14:20-0400 Systolic blood pressure 130 mm[Hg] Ze Solis MD Work Phone: [facility] 09-10-2024 15:48-0400 Body mass index (BMI) [Ratio] 33.07 kg/m2 Sabrina Cox SURFACER OPERATOR Work Phone: [facility] 09-10-2024 15:48-0400 Body weight 82.01 kg Sabrina Cox SURFACER OPERATOR Work Phone: [facility] 09-10-2024 15:48-0400 Diastolic blood pressure 92 mm[Hg] Sabrina Cox SURFACER OPERATOR Work Phone: [facility] 09-10-2024 15:48-0400 Heart rate 91 /min Sabrina Cox SURFACER OPERATOR Work Phone: [facility] 09-10-2024 15:48-0400 SaO2% (BldA) [Mass fraction] 98 % Sabrina Cox SURFACER OPERATOR Work Phone: [facility] 09-10-2024 15:48-0400 Systolic blood pressure 160 mm[Hg] Sabrina Cox SURFACER OPERATOR Work Phone: [facility] 08-30-2024 13:05-0400 Body mass index (BMI) [Ratio] 32.01 kg/m2 Tj Dutton MD Work Phone: [facility] 08-30-2024 13:05-0400 Body weight 79.38 kg Tj Dutton MD Work Phone: [facility] 08-30-2024 13:05-0400 Diastolic blood pressure 82 mm[Hg] Tj Dutton MD Work Phone: [facility] 08-30-2024 13:05-0400 Systolic blood pressure 142 mm[Hg] Tj Dutton MD Work Phone: [facility] 07-30-2024 15:48-0400 Body height 157.5 cm Gi Painterr SURFACER OPERATOR Work Phone: [facility] 07-30-2024 15:48-0400 Body mass index (BMI) [Ratio] 32.01 kg/m2 Gi Gillmor SURFACER OPERATOR Work Phone: [facility] 07-30-2024 15:48-0400 Body weight 79.38 kg Gi Lindseymor SURFACER OPERATOR Work Phone: [facility] 07-30-2024 15:48-0400 Diastolic blood pressure 80 mm[Hg] Gi Lindseymor SURFACER OPERATOR Work Phone: [facility] 07-30-2024 15:48-0400 Heart rate 90 /min Gi Rosaliamor SURFACER OPERATOR Work Phone: [facility] 07-30-2024 15:48-0400 SaO2% (BldA) [Mass fraction] 94 % Gi Rosaliamor SURFACER OPERATOR Work Phone: [facility] 07-30-2024 15:48-0400 Systolic blood pressure 128 mm[Hg] Gi Lindseymor SURFACER OPERATOR Work Phone: [facility] 07-02-2024 13:59-0500 Body height 157.5 cm Ze Solis MD Work Phone: [facility] 07-02-2024 13:59-0500 Body mass index (BMI) [Ratio] 32.37 kg/m2 Ze Solis MD Work Phone: [facility] 07-02-2024 13:59-0500 Body weight 80.29 kg Ze Solis MD Work Phone: [facility] 07-02-2024 13:59-0500 Diastolic blood pressure 84 mm[Hg] Ze Solis MD Work Phone: [facility] 07-02-2024 13:59-0500 Heart rate 96 /min Ze Solis MD Work Phone: [facility] 07-02-2024 13:59-0500 Respiratory rate 18 /min Ze Solis MD Work Phone: [facility] 07-02-2024 13:59-0500 SaO2% (BldA) [Mass fraction] 97 % Ze Solis MD Work Phone: [facility] 07-02-2024 13:59-0500 Systolic blood pressure 140 mm[Hg] Ze Solis MD Work Phone: [facility] 06-28-2024 14:09-0500 Body mass index (BMI) [Ratio] 32.05 kg/m2 Andre Funes MD Work Phone: [facility] 06-28-2024 14:09-0500 Body temperature 97.5 [degF] Andre Funes MD Work Phone: [facility] 06-28-2024 14:09-0500 Body weight 79.5 kg Andre Funes MD Work Phone: [facility] 06-28-2024 14:09-0500 Diastolic blood pressure 78 mm[Hg] Andre Funes MD Work Phone: [facility] 06-28-2024 14:09-0500 Heart rate 86 /min Adnre Funes MD Work Phone: [facility] 06-28-2024 14:09-0500 Respiratory rate 16 /min Andre Funes MD Work Phone: [facility] 06-28-2024 14:09-0500 SaO2% (BldA) [Mass fraction] 99 % Andre Funes MD Work Phone: [facility] 06-28-2024 14:09-0500 Systolic blood pressure 143 mm[Hg] Andre Funes MD Work Phone: [facility] 01-17-2025 11:48-0500 Blood Pressure Location NGA WILKINS [facility] 06-08-2024 11:48-0500 Diastolic blood pressure 76 mm[Hg] NGA WILKINS [facility] 06-08-2024 11:48-0500 Heart rate 76 /min NGA WILKINS [facility] 06-08-2024 11:48-0500 Systolic blood pressure 136 mm[Hg] NGA WILKINS [facility] 05-29-2024 14:47-0500 Body mass index (BMI) [Ratio] 31.09 kg/m2 Tj Dutton MD Work Phone: [facility] 05-29-2024 14:47-0500 Body weight 77.11 kg Tj Dutton MD Work Phone: [facility] 05-29-2024 14:47-0500 Diastolic blood pressure 82 mm[Hg] Tj Dutton MD Work Phone: [facility] 05-29-2024 14:47-0500 Systolic blood pressure 130 mm[Hg] Tj Dutton MD Work Phone: [facility] 05-28-2024 14:54-0500 Body mass index (BMI) [Ratio] 32.56 kg/m2 Rajat Aguilar SURFACER OPERATOR Work Phone: [facility] 05-28-2024 14:54-0500 Body weight 80.74 kg Rajat Aguilar SURFACER OPERATOR Work Phone: [facility] 05-28-2024 14:54-0500 Diastolic blood pressure 87 mm[Hg] Rajat Aguilar SURFACER OPERATOR Work Phone: [facility] 05-28-2024 14:54-0500 Heart rate 69 /min Rajat Aguilar SURFACER OPERATOR Work Phone: [facility] 05-28-2024 14:54-0500 Systolic blood pressure 144 mm[Hg] Rajat Sergio KELLEY Work Phone: [facility] 03-05-2024 14:30-0400 Body height 157.5 cm Ze Solis MD Work Phone: [facility] 03-05-2024 14:30-0400 Body mass index (BMI) [Ratio] 35.12 kg/m2 Ze Solis MD Work Phone: [facility] 03-05-2024 14:30-0400 Body weight 87.09 kg Ze Solis MD Work Phone: [facility] 03-05-2024 14:30-0400 Diastolic blood pressure 72 mm[Hg] Ze Solis MD Work Phone: [facility] 03-05-2024 14:30-0400 Heart rate 77 /min Ze Solis MD Work Phone: [facility] 03-05-2024 14:30-0400 Respiratory rate 18 /min Ze Solis MD Work Phone: [facility] 03-05-2024 14:30-0400 Systolic blood pressure 126 mm[Hg] Ze Solis MD Work Phone: [facility] 02-29-2024 09:25-0400 Blood Pressure Location NGA WILKINS [facility] 02-29-2024 09:25-0400 Diastolic blood pressure 87 mm[Hg] NGA JUANITO [facility] 02-29-2024 09:25-0400 Heart rate 87 /min NGA WILKINS [facility] 02-29-2024 09:25-0400 Systolic blood pressure 150 mm[Hg] NGA WILKINS [facility] 02-14-2024 15:53-0400 Diastolic blood pressure 78 mm[Hg] Mary Alejandro DO Work Phone: [facility] 02-14-2024 15:53-0400 Heart rate 95 /min Mary Alejandro DO Work Phone: [facility] 02-14-2024 15:53-0400 SaO2% (BldA) [Mass fraction] 96 % Mary Alejandro DO Work Phone: [facility] 02-14-2024 15:53-0400 Systolic blood pressure 126 mm[Hg] Mary Alejandro DO Work Phone: [facility] 01-30-2024 14:57-0400 Body mass index (BMI) [Ratio] 35.12 kg/m2 Rajat Aguilar NP Work Phone: [facility] 01-30-2024 14:57-0400 Body weight 87.09 kg Rajat Aguilar NP Work Phone: [facility] 01-02-2024 11:52-0400 Blood Pressure Location NGA JUAN[facility] 01-02-2024 11:52-0400 Diastolic blood pressure 82 mm[Hg] NGA JUANITO [facility] 01-02-2024 11:52-0400 Heart rate 78 /min NGA JUANITO [facility] 01-02-2024 11:52-0400 Systolic blood pressure 130 mm[Hg] NGA JUANITO [facility] 12-05-2023 11:55-0400 Diastolic blood pressure 54 mm[Hg] NGA JUANITO [facility] 12-05-2023 11:55-0400 Mean blood pressure 77 mm[Hg] NGA JUANTIO [facility] 12-05-2023 11:55-0400 Systolic blood pressure 122 mm[Hg] NGA JUANITO [facility] 12-05-2023 11:44-0400 Blood Pressure Location NGA JUANITO [facility] 12-05-2023 11:44-0400 Diastolic blood pressure 107 mm[Hg] NGA JUANITO [facility] 12-05-2023 11:44-0400 Heart rate 95 /min NGA JUANITO [facility] 12-05-2023 11:44-0400 Systolic blood pressure 128 mm[Hg] NGA JUANITO [facility] 11-28-2023 11:43-0400 Blood Pressure Location NGA JUANITO [facility] 11-28-2023 11:43-0400 Diastolic blood pressure 67 mm[Hg] NGA JUANITO [facility] 11-28-2023 11:43-0400 Heart rate 95 /min NGA JUANITO [facility] 11-28-2023 11:43-0400 Systolic blood pressure 148 mm[Hg] NGA JUANITO [facility] 11-21-2023 11:37-0400 Blood Pressure Location NGA JUANITO [facility] 11-21-2023 11:37-0400 Body temperature 97.88 [degF] NGA JUANITO [facility] 11-21-2023 11:37-0400 Diastolic blood pressure 11 mm[Hg] NGA JUANITO [facility] 11-21-2023 11:37-0400 Heart rate 74 /min NGA JUANITO [facility] 11-21-2023 11:37-0400 Respiratory rate 15 /min NGA JUANITO [facility] 11-21-2023 11:37-0400 Systolic blood pressure 131 mm[Hg] NGA JUANITO [facility] 11-14-2023 11:36-0400 Blood Pressure Location NGA JUANITO [facility] 11-14-2023 11:36-0400 Body temperature 97.7 [degF] NGA JUANITO [facility] 11-14-2023 11:36-0400 Diastolic blood pressure 88 mm[Hg] NGA JUANITO [facility] 11-14-2023 11:36-0400 Heart rate 78 /min NGA JUANITO [facility] 11-14-2023 11:36-0400 Systolic blood pressure 150 mm[Hg] NGA JUANITO [facility] 06-23-2023 13:50-0500 Body height 157.5 cm Andre Funes MD Work Phone: [facility] 06-23-2023 13:50-0500 Body temperature 97.59 [degF] Andre Funes MD Work Phone: [facility] 06-23-2023 13:50-0500 Body weight 91.1 kg Andre Funes MD Work Phone: [facility] 06-23-2023 13:50-0500 Diastolic blood pressure 93 mm[Hg] Andre Funes MD Work Phone: [facility] 06-23-2023 13:50-0500 Heart rate 107 /min Andre Funes MD Work Phone: [facility] 06-23-2023 13:50-0500 Respiratory rate 18 /min Andre Funes MD Work Phone: [facility] 06-23-2023 13:50-0500 SaO2% (BldA) [Mass fraction] 94 % Andre Funes MD Work Phone: [facility] 06-23-2023 13:50-0500 Systolic blood pressure 149 mm[Hg] Andre Funes MD Work Phone: [facility] 05-03-2023 10:34-0500 Blood Pressure Location NGA WILKINS [facility] 05-03-2023 10:34-0500 Diastolic blood pressure 88 mm[Hg] NGA WILKINS [facility] 05-03-2023 10:34-0500 Heart rate 91 /min NGA WILKINS [facility] 05-03-2023 10:34-0500 Respiratory rate 16 /min NGA WILKINS [facility] 05-03-2023 10:34-0500 Systolic blood pressure 138 mm[Hg] NGA WILKINS [facility] 04-05-2023 14:15-0500 Body height 157.48 cm Rodger Davila Other [facility] Other 04-05-2023 14:15-0500 Body mass index (BMI) [Ratio] 37.31 kg/m2 Rodger Davila Other [facility] Other 04-05-2023 14:15-0500 Body weight 92.53 kg Rodger Davila Other [facility] Other 04-05-2023 14:15-0500 Diastolic blood pressure 82 mm[Hg] Rodger Davila Other [facility] Other 04-05-2023 14:15-0500 Systolic blood pressure 143 mm[Hg] Rodger Davila Other [facility] Other 09-28-2022 14:45-0400 Body height 157.48 cm Rodger Davila Other [facility] Other 09-28-2022 14:45-0400 Body mass index (BMI) [Ratio] 37.86 kg/m2 Rodger Lola Other [facility] Other 09-28-2022 14:45-0400 Body weight 93.9 kg Rodger Davila Other [facility] Other 09-28-2022 14:45-0400 Diastolic blood pressure 77 mm[Hg] Rodger Davila Other [facility] Other 09-28-2022 14:45-0400 SaO2% (BldA) [Mass fraction] 95 % Rodger Lola Other [facility] Other 09-28-2022 14:45-0400 Systolic blood pressure 156 mm[Hg] Rodger Hardenack Other [facility] Other 06-25-2022 13:45-0500 Diastolic blood pressure 82 mm[Hg] Andre Funes MD Work Phone: [facility] 06-25-2022 13:45-0500 Systolic blood pressure 152 mm[Hg] Andre Funes MD Work Phone: [facility] 06-25-2022 13:44-0500 Body height 157.5 cm Andre Funes MD Work Phone: [facility] 06-25-2022 13:44-0500 Body temperature 97.5 [degF] Andre Funes MD Work Phone: [facility] 06-25-2022 13:44-0500 Body weight 95.17 kg Andre Funes MD Work Phone: [facility] 06-25-2022 13:44-0500 Heart rate 88 /min Andre Funes MD Work Phone: [facility] 06-25-2022 13:44-0500 Respiratory rate 16 /min Andre Funes MD Work Phone: [facility] 06-25-2022 13:44-0500 SaO2% (BldA) [Mass fraction] 97 % Andre Funes MD Work Phone: [facility] 06-22-2022 14:30-0500 Body height 157.48 cm Rodger Davila Other [facility] Other 06-22-2022 14:30-0500 Body mass index (BMI) [Ratio] 37.86 kg/m2 Rodger Davila Other [facility] Other 06-22-2022 14:30-0500 Body weight 93.9 kg Rodger Davila Other [facility] Other 06-22-2022 14:30-0500 Diastolic blood pressure 80 mm[Hg] Rodger Davila Other [facility] Other 06-22-2022 14:30-0500 Systolic blood pressure 130 mm[Hg] Rodger Davila Other [facility] Other 03-04-2022 15:45-0400 Body height 157.48 cm Rodger Davila Other [facility] Other 03-04-2022 15:45-0400 Body mass index (BMI) [Ratio] 38.59 kg/m2 Rodger Davila Other [facility] Other 03-04-2022 15:45-0400 Body weight 95.71 kg Rodger Davila Other [facility] Other 12-17-2021 13:02-0400 Body height 157.5 cm Andre Funes MD Work Phone: [facility] 12-17-2021 13:02-0400 Body temperature 97.59 [degF] Andre Funes MD Work Phone: [facility] 12-17-2021 13:02-0400 Body weight 97.98 kg Andre Funes MD Work Phone: [facility] 12-17-2021 13:02-0400 Diastolic blood pressure 83 mm[Hg] Andre Funes MD Work Phone: [facility] 12-17-2021 13:02-0400 Heart rate 92 /min Andre Funes MD Work Phone: [facility] 12-17-2021 13:02-0400 Respiratory rate 16 /min Andre Funes MD Work Phone: [facility] 12-17-2021 13:02-0400 SaO2% (BldA) [Mass fraction] 95 % Andre Funes MD Work Phone: [facility] 12-17-2021 13:02-0400 Systolic blood pressure 145 mm[Hg] Andre Funes MD Work Phone: [facility] Encounters Encounter Date Encounter Type Care Provider Facility Start: 10-25-2025 ambulatory OSMAN WILKINS Facility:[facility] Start: 10-30-2024 End: 10-30-2024 ambulatory ZE SOLIS Not Available Start: 10-30-2024 End: 10-30-2024 Bamboo flowsheet Ze Solis MD Work Phone: [facility] Start: 10-30-2024 End: 10-30-2024 Bamnathano flowsheet Ze Solis MD Work Phone: [facility] Start: 10-30-2024 End: 10-30-2024 Office outpatient visit 40 minutes Ze Solis MD Work Phone: [facility] Comment on above: Insulin long-term us e ([facility]) (Primary Dx); Type 2 diabetes mellitus with hyperglycemia, unspecified whether custodial insulin use ([facility]); Vitamin D deficiency; Encounter for dietary consultation; High risk medication use; Primary hypertension ([facility]); Hypoglycemia; Microalbuminuria; Type 2 diabetes mellitus with hyperglycemia ([facility]); Acquired hypothyroidism ([facility]) Start: 10-25-2024 End: 10-25-2024 Clinisync Result Encounter Tj Dutton MD Work Phone: [facility] External Department Unsolicited Start: 10-25-2024 End: 10-25-2024 Clinisync Result Encounter Tj Dutton MD Work Phone: [facility] External Department Unsolicited Start: 10-19-2024 End: 10-19-2024 ambulatory OSMAN WILKINS Facility: [facility] Start: 10-19-2024 End: 10-19-2024 Patient encounter procedure [facility]GA [facility]ILKINS [facility] Start: 09-10-2024 End: 09-10-2024 Office outpatient visit 15 minutes Sabrina Pintooll SURFACER OPERATOR Work Phone: [facility] Comment on above: Nonintractable episo dic headache, unspecified headache type (Primary Dx); Essential tremor; Cognitive dysfunction; Anxiety; CASSIE (obstructive sleep apnea); Imbalance Start: 09-10-2024 End: 09-10-2024 ambulatory SABRINA COX Not Available Start: 09-10-2024 End: 09-10-2024 Bamboo flowsheet Sabrina Cox SURFACER OPERATOR Work Phone: [facility] Start: 09-10-2024 End: 09-10-2024 Bamboo flowsheet Sabrina Cox SURFACER OPERATOR Work Phone: [facility] Start: 09-03-2024 End: 09-03-2024 ambulatory [facility] Start: 08-30-2024 End: 08-30-2024 Bamboo flowsheet jT Dutton MD Work Phone: [facility] [...] Start: 08-16-2024 End: 08-16-2024 ambulatory Tj Dutton [facility] Work Phone: Start: 08-16-2024 End: 08-16-2024 Departed Referred Tj Dutton MD Work Phone: [facility] [place] Work Phone: Start: 07-30-2024 End: 07-30-2024 ambulatory GI ARRIAGA Not Available Start: 07-30-2024 End: 07-30-2024 Office outpatient visit 25 minutes Gi Arriaga SURFACER OPERATOR Work Phone: [facility] Comment on above: CASSIE (obstructive sle ep apnea) (Primary Dx); Insomnia, unspecified type Start: 07-30-2024 End: 07-30-2024 Bamboo flowsheet Gi Arriaga SURFACER OPERATOR Work Phone: [facility] Start: 07-30-2024 End: 07-30-2024 Bamboo flowsheet Gi Arriaga SURFACER OPERATOR Work Phone: [facility] Start: 07-02-2024 End: 07-02-2024 Bamboo flowsheet Ze Solis MD Work Phone: [facility] Start: 07-02-2024 End: 07-02-2024 Bamboo flowsheet Ze Solis MD Work Phone: [facility] Start: 07-02-2024 End: 07-02-2024 Office outpatient visit 25 minutes Ze Solis MD Work Phone: [facility] Comment on above: Type 2 [...] Telephone encounter Ze Solis MD Work Phone: [facility] Comment on above: Prior Authorization Start: 07-02-2024 End: 07-02-2024 ambulatory ZE SOLIS Not Available Start: 06-28-2024 End: 06-28-2024 Office outpatient visit 25 minutes Andre Funes MD Work Phone: Hematology/Oncology Comment on above: Cirrhosis of liver n ot due to alcohol (HCC) (Primary Dx); Biliary cirrhosis (HCC); MENDEZ (nonalcoholic steatohepatitis); Thrombocytopenia due to hypersplenism Start: 06-28-2024 End: 06-28-2024 ambulatory ANDRE FUNES Facility:[facility] Start: 06-26-2024 End: 06-27-2024 Telephone encounter Ze Solis MD Work Phone: [facility] Comment on above: Medication Problem Start: 06-12-2024 End: 06-12-2024 Social Work Jasmine NOE Work Phone: [facility] Comment on above: SAMUEL (generalized anx iety disorder) (CMS/HCC) Start: 06-08-2024 End: 06-08-2024 ambulatory OSMAN WILKINS Facility:[facility] Start: 06-08-2024 End: 06-08-2024 Patient encounter procedure NGA WILKINS [facility] Start: 05-29-2024 End: 05-29-2024 ambulatory TJ DUTTON Not Available Start: 05-29-2024 End: 05-29-2024 Office outpatient visit 25 minutes Tj Dutton MD [facility] Comment on above: LGSIL of cervix of u ndetermined significance (Primary Dx); HPV (human papilloma virus) infection; Cervical cancer screening; Screening for HPV (human papillomavirus); Other screening mammogram Start: 05-29-2024 End: 05-29-2024 Courtney Dutton MD Work Phone: [facility] Start: 05-29-2024 End: 05-29-2024 Courtney Dutton MD Work Phone: [facility] Start: 05-28-2024 End: 05-28-2024 ambulatory RAJAT AGUILAR Not Available Start: 05-28-2024 End: 05-28-2024 Office outpatient visit 15 minutes Rajat Aguilar NP Work Phone: [facility] Comment on above: Essential tremor (Pr imary Dx); Cognitive dysfunction; Anxiety; Imbalance; Paresthesias Start: 05-28-2024 End: 05-28-2024 Bamboo [employer]io Aguilar SURFACER OPERATOR Work Phone: [facility] [place] [address] Start: 05-28-2024 End: 05-28-2024 Bamboo [employer] Rajat Aguilar SURFACER OPERATOR Work Phone: [facility] [place] [address] Start: 04-26-2024 End: 04-26-2024 Telephone encounter Luz Hamilton RN Hematology/Oncology Comment on above: US spleen order Start: 04-23-2024 End: 04-23-2024 Telephone encounter Luz Hamilton RN Hematology/Oncology Comment on above: Start: 04-04-2024 End: 04-04-2024 Bamboo flowsheet Jasmine Huynhion FULL CHARGE BOOKKEEPER-S Work Phone: [facility] Start: 04-04-2024 End: 04-04-2024 Bamboo flowsheet Jasmine Peres Didion FULL CHARGE BOOKKEEPER-S Work Phone: [facility] Start: 04-04-2024 End: 04-04-2024 Social Work Jasmine Peres Didion FULL CHARGE BOOKKEEPER-S Work Phone: [facility] Comment on above: SAMUEL (generalized anx iety disorder) (CMS/HCC) Start: 03-05-2024 End: 03-05-2024 Office outpatient visit 40 minutes Ze Solis MD Work Phone: [facility] Comment on above: Type 2 diabetes mauri itus with hyperglycemia, with long-term current use of insulin ([facility]) (Primary Dx); Insulin long-term use ([facility]); Vitamin D deficiency; Encounter for dietary consultation; High risk medication use; Primary hypertension ([facility]); Hypoglycemia; Class 2 severe obesity due to excess calories with serious comorbidity and body mass index (BMI) of 35.0 to 35.9 in adult ([facility]); Microalbuminuria; 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[facility]) Start: 03-05-2024 End: 03-05-2024 ambulatory ZE SOLIS Not Available Start: 03-01-2024 End: 03-01-2024 [employer] Jasmine Peres Didion FULL CHARGE BOOKKEEPER-S Work Phone: [facility] Start: 03-01-2024 End: 03-01-2024 [employer] Jasmine Peres Didion FULL CHARGE BOOKKEEPER-S Work Phone: [facility] Start: 03-01-2024 End: 03-01-2024 Social Work Jasmine Peres Didion FULL CHARGE BOOKKEEPER-S Work Phone: [facility] Comment on above: SAMUEL (generalized anx iety disorder) ([facility]) Start: 02-29-2024 End: 02-29-2024 ambulatory FRANCES-Larisa WILKINS Facility:[facility] Start: 02-29-2024 End: 02-29-2024 Patient encounter procedure NGA WILKINS [facility] Start: 02-14-2024 End: 02-14-2024 Office outpatient visit [...] End: 02-07-2024 Social Work Jasmine Peres Didion FULL CHARGE BOOKKEEPER-S Work Phone: [facility] Comment on above: SAMUEL (generalized anx iety disorder) ([facility]) Start: 02-07-2024 End: 02-07-2024 Bamboo flowsheet Jasmine C Didion FULL CHARGE BOOKKEEPER-S Work Phone: [facility] Start: 02-07-2024 End: 02-07-2024 Bamboo flowsheet Jasmine Peres Didion FULL CHARGE BOOKKEEPER-S Work Phone: [facility] Start: 01-30-2024 End: 01-30-2024 Office outpatient visit 15 minutes Rajat Aguilar SURFACER OPERATOR Work Phone: [facility] [place] [address] Comment on above: Essential tremor (Pr imary Dx); Cognitive dysfunction; Anxiety; Imbalance; Muscle cramping; CASSIE (obstructive sleep apnea) Start: 01-30-2024 End: 01-30-2024 ambulatory RAJAT AGUILAR Not Available Start: 01-30-2024 End: 01-30-2024 Bamboo flowsheet Rajat Aguilar SURFACER OPERATOR Work Phone: [facility] [place] [address] Start: 01-30-2024 End: 01-30-2024 Bamboo flowsheet Rajat Aguilar SURFACER OPERATOR Work Phone: [facility] [address] [facility] Start: 01-10-2024 End: 01-10-2024 Social Work Jasmine Huynhion FULL CHARGE BOOKKEEPER-S Work Phone: [facility] Comment on above: SAMUEL (generalized anx iety disorder) ([facility]) Start: 01-10-2024 End: 01-10-2024 Bamboo flowsheet Jasmine C Didion FULL CHARGE BOOKKEEPER-S Work Phone: [facility] Start: 01-10-2024 End: 01-10-2024 Bamboo flowsheet Jasmine C Didion FULL CHARGE BOOKKEEPER-S Work Phone: [facility] Start: 01-02-2024 End: 01-02-2024 ambulatory PA-C NGA E JUANITO Facility:[facility] Start: 01-02-2024 End: 01-02-2024 Patient encounter procedure NGA Tano JUANITO [facility] Start: 12-19-2023 ambulatory PA-C NGA E JUANITO Facility:[facility] Start: 12-15-2023 End: 12-15-2023 ambulatory JASMINE DIDION Not Available Start: 12-05-2023 End: 12-05-2023 ambulatory PA-C NGA E JUANITO Facility:[facility] Start: 12-05-2023 End: 12-05-2023 Patient encounter procedure NGA E JUANITO [facility] Start: 11-28-2023 End: 11-28-2023 ambulatory PA-C NGA E JUANITO Facility:[facility] Start: 11-28-2023 End: 11-28-2023 Patient encounter procedure NGA E JUANITO [facility] Start: 11-21-2023 End: 11-21-2023 ambulatory PA-C NGA E JUANITO Facility:[facility] Start: 11-21-2023 End: 11-21-2023 Patient encounter procedure NGA E JUANITO [facility] [place] [facility] Start: 11-16-2023 End: 11-16-2023 ambulatory RAJAT AGUILAR Not Available Start: 11-14-2023 End: 11-14-2023 ambulatory PA-C NGA WILKINS Facility:[facility] Start: 11-14-2023 End: 11-14-2023 Patient encounter procedure NGA WILKINS [facility] [place] Start: 11-10-2023 End: 11-10-2023 ambulatory TAN SOTELO Not Available Start: 11-08-2023 End: 11-08-2023 ambulatory JASMINE URBAN Not Available Start: 11-07-2023 End: 11-07-2023 ambulatory PA-C NGA WILKINS Facility:[facility] Start: 11-07-2023 End: 11-07-2023 Patient encounter procedure NGA WILKINS [facility] [place] [facility] Start: 10-31-2023 End: 10-31-2023 ambulatory PA-C NGA WILKINS Facility:[facility] Start: 10-31-2023 End: 10-31-2023 Patient encounter procedure NGA WILKINS [facility] [place] Start: 06-23-2023 End: 06-23-2023 Office outpatient visit 15 minutes Andre Funes MD Work Phone: Hematology/Oncology Comment on above: MENDEZ (nonalcoholic s teatohepatitis) (Primary Dx); Cirrhosis of liver not due to alcohol (HCC); Thrombocytopenia due to hypersplenism; Thrombocytopenia (HCC); Diabetic gastroparesis (HCC) (HCC) Start: 06-22-2023 End: 06-22-2023 ambulatory Soheila Delgado Other [facility] Other Start: 06-22-2023 Telephone encounter Soheila Delgado [facility] Start: 05-03-2023 End: 05-03-2023 Patient encounter procedure NGA WILKINS [facility] [place] Start: 04-12-2023 End: 04-12-2023 ambulatory Rodger Davila Other [facility] Other Start: 04-12-2023 Telephone encounter Rodger cabrales [facility] Start: 04-05-2023 End: 04-05-2023 ambulatory Rodger Davila Other [facility] Other Start: 04-05-2023 Office outpatient vi sit 15 minutes Rodger Davila [facility] Start: 10-19-2022 End: 10-20-2022 ambulatory SHAKIRA RONALDO Facility:[facility] Start: 10-15-2022 ambulatory SHAKIRA RONALDO Facility: [facility] Start: 10-06-2022 End: 10-06-2022 ambulatory SHAKIRA RONALDO Facility:[facility] Start: 09-28-2022 End: 09-28-2022 ambulatory Rodger Davila Other [facility] Other Start: 09-28-2022 Office outpatient vi sit 15 minutes Rodger Davila [facility] Start: 06-25-2022 End: 06-25-2022 Office outpatient visit 15 minutes Andre Funes MD Work Phone: Hematology/Oncology Comment on above: Cirrhosis of liver n ot due to alcohol (HCC) (Primary Dx); MENDEZ (nonalcoholic steatohepatitis); Thrombocytopenia due to hypersplenism Start: 06-22-2022 End: 06-22-2022 ambulatory Rodger Davila Other [facility] Other Start: 06-22-2022 Office outpatient vi sit 15 minutes Rodger Davila [facility] Start: 06-10-2022 End: 06-11-2022 ambulatory SHAKIRAFABIENNE RUTHMER Facility:[facility] Start: 05-22-2022 End: 05-22-2022 ambulatory SHAKIRA RONALDO Facility:[facility] Start: 04-01-2022 End: 04-01-2022 ambulatory Rodger Davila Other [facility] Other Start: 04-01-2022 Telephone encounter Rodger Hyde [facility] Start: 03-16-2022 End: 03-16-2022 ambulatory SHAKIRA HIGGINS Facility:[facility] Start: 03-15-2022 End: 03-16-[address] DOCTOR [place] Facility:[facility] Start: 03-04-2022 End: 03-04-2022 ambulatory Rodger Davila Other [facility] Other Start: 03-04-2022 Office outpatient ne w [...] encounter procedure Andre Funes MD Work Phone: [facility] Start: 11-25-2021 End: 11-26-2021 ambulatory SHAKIRA HIGGINS Facility:[facility] Start: 05-17-2021 End: 05-17-[address] JENNIFER TURNER Facility:[facility] Start: 08-05-2020 End: 08-05-2020 Patient encounter procedure External Provider [facility] Start: 08-05-2020 Results Only External Provider Exter nal-NonCCF Procedures Date Procedure Procedure Detail Performing Clinician Start: 10-30-2024 Gluc bld gluc mntr dev cleared fda spec home use Ze Solis MD Work Phone: Start: 10-25-2024 MM TOMOSYNTHESIS SCREENING BI Tj rivera MD Work Phone: Start: 10-25-2024 Mammography Tj [...] in Cervix by Cyto stain Jasmine Urban FULL CHARGE BOOKKEEPER-S Work Phone: Start: 05-20-2022 Mammography Jasmine Urban FULL CHARGE BOOKKEEPER-S Work Phone: Start: 12-10-2020 Adult depression screening assessment Andre Funes MD Work Phone: Start: 09-24-2020 Esophagogastroduodenoscopy NGA Gao Comment on above: with Right Hemorrhoidectomy Start: 08-05-2020 EXTERNAL LAB External Provider Start: 04-09-2020 Colonoscopy Jasmine Urban FULL CHARGE BOOKKEEPER-S Work Phone: Start: 04-09-2020 Colonoscopy NGA JUANITO Bilateral tubal ligation SAMMY BARR JUANITO Bilateral tubal ligation SAMMY BARR JUANITO Bile duct stone removal MILTON IFKEN JUANITO Bile duct stone removal MILTON IFKEN JUANITO section NGA JUÁREZ RRY Laparoscopic cholecystectomy NGA WILKINS Tonsillectomy and adenoidectomy NGA WILKINS Plan of Treatment Date Care Activity Detail Author Start: 04-09-2030 Screening for malignant neoplasm of colon [facility] Start: 05-29-2029 Screening for malignant neoplasm of cervix [facility] Start: 05-24-2026 Screening for malignant neoplasm of cervix [facility] Start: 10-25-2025 Screening for malignant neoplasm of breast Mammogram [facility] Start: 06-25-2025 DIABETES SCREEN DIABETES SCREEN [facility] Start: 06-04-2025 End: 06-04-2025 Patient encounter procedure 06/04/2025 1:00 PM EST Office Visit [facility] [address] [place] [phone] Tj Dutton MD [address] [place] [address] [facility] Start: 05-29-2025 Screening for malignant neoplasm of breast Mammogram [facility] Start: 03-06-2025 End: 03-06-2025 Patient encounter procedure 03/06/2025 2:20 PM EDT Office Visit [facility] [address] [place] [phone] Ze Solis MD [address] [place] [address] [facility] Start: 03-05-2025 End: 03-05-2025 Patient encounter procedure 03/05/2025 1:30 PM EDT Office Visit [facility] [address] [place] [address] Tj Dutton MD [address] [place] [address] [facility] Start: 01-10-2025 End: 01-10-2025 Patient encounter procedure 01/10/2025 3:00 PM EDT Office Visit [facility] BEASLEY [address] [facility] [address] [place] [phone] Kenny Sabrina, SURFACER OPERATOR [address] [place] [phone] [facility] Start: 12-17-2024 DIABETES SCREEN DIABETES SCREEN [facility] Start: 10-30-2024 End: 10-30-2024 Patient encounter procedure 10/30/2024 2:00 PM EDT Office Visit [facility] [address] [place] [phone] Ze Solis MD [address] [place] [address] [facility] Start: 10-30-2024 End: 10-30-2025 Thyrotropin [Units/volume] in Serum or Plasma TSH Lab Routine Acquired hypothyroidism (CMS/HCC) Expected: 10/30/2024 (Approximate), Expires: 10/30/2025 [facility] Comment on above: Expected: 10/30/2024 (Approximate), Expi res: 10/30/2025 Start: 10-30-2024 End: 10-30-2025 Thyroxine (T4) free [Mass/volume] in Serum or Plasma T4, free Lab Routine Acquired hypothyroidism (CMS/HCC) Expected: 10/30/2024 (Approximate), Expires: 10/30/2025 [facility] Comment on above: Expected: 10/30/2024 (Approximate), Expi res: 10/30/2025 Start: 10-30-2024 End: 10-30-2025 Triiodothyronine (T3) Free [Mass/volume] in Serum or Plasma T3, free Lab Routine Acquired hypothyroidism (CMS/HCC) Expected: 10/30/2024 (Approximate), Expires: 10/30/2025 [facility] Work Phone: Comment on above: Expected: 10/30/2024 (Approximate), Expi res: 10/30/2025 Start: 10-23-2024 End: 10-23-2024 Patient encounter procedure 10/23/2024 4:20 PM EDT Office Visit [facility] [address] [place] [phone] Gi Arriaga, ALLIE [address] [place] [facility] Start: 10-22-2024 End: 07-26-2025 DBT [...] PM EST Visit (SP) Office Hematology/Oncology [address] [place] [place] [address] Andre Funes MD [address] [place] [address] 1 year follow up with lab the same day Hematology/Oncology Comment on above: 1 year follow up with lab the same day Start: 06-28-2024 End: 06-28-2024 Patient encounter procedure 06/28/2024 2:00 PM EST Office Visit [facility] [address] [place] [address] [place] [address] 1 year follow up with lab the same day [facility] Comment on above: 1 year follow up with lab the same day Start: 06-23-2024 End: 09-22-2024 [id number] [Mass/volume] in Serum or Plasma ALPHA FETOPROTEIN BL Lab Routine MENDEZ (nonalcoholic steatohepatitis) 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 Expected: 06/23/2024 (Approximate), Expires: 09/22/2024 [facility] Work Phone: Comment on above: Expected: 06/23/2024 (Approximate), Expi res: 09/22/2024 Start: 06-23-2024 End: 06-23-2024 CBC W Auto Differential panel - Blood CBC + DIFF Lab Routine MENDEZ (nonalcoholic steatohepatitis) 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 Expected: 06/23/2024 (Approximate), Expires: 06/23/2024 [facility] Work Phone: Comment on above: Expected: 06/23/2024 (Approximate), Expi res: 06/23/2024 Start: 06-23-2024 End: 06-23-2024 Cobalamin (Vitamin B12) [Mass/volume] in Serum or Plasma VITAMIN B12 BLOOD Lab Routine MENDEZ (nonalcoholic steatohepatitis) 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 Expected: 06/23/2024 (Approximate), Expires: 06/23/2024 [facility] Work Phone: Comment on above: Expected: 06/23/2024 (Approximate), Expi res: 06/23/2024 Start: 06-23-2024 End: 06-23-2024 Comprehensive metabolic 2000 panel - Serum or Plasma COMP METABOLIC PANEL Lab Routine MENDEZ (nonalcoholic steatohepatitis) 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 Expected: 06/23/2024 (Approximate), Expires: 06/23/2024 [facility] Work Phone: Comment on above: Expected: 06/23/2024 (Approximate), Expi res: 06/23/2024 Start: 06-23-2024 End: 06-23-2024 Ferritin [Mass/volume] in Serum or Plasma FERRITIN BLD Lab Routine MENDEZ (nonalcoholic steatohepatitis) 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 Expected: 06/23/2024 (Approximate), Expires: 06/23/2024 [facility] Work Phone: Comment on above: Expected: 06/23/2024 (Approximate), Expi res: 06/23/2024 Start: 06-23-2024 End: 06-23-2024 Folate [Mass/volume] in Serum or Plasma FOLATE SERUM Lab Routine MENDEZ (nonalcoholic steatohepatitis) 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 Expected: 06/23/2024 (Approximate), Expires: 06/23/2024 [facility] Work Phone: Comment on above: Expected: 06/23/2024 (Approximate), Expi res: 06/23/2024 Start: 06-23-2024 End: 06-23-2024 Iron and Iron binding capacity panel - Serum or Plasma IRON + TIBC Lab Routine MENDEZ (nonalcoholic steatohepatitis) 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 Expected: 06/23/2024 (Approximate), Expires: 06/23/2024 [facility] Work Phone: Comment on above: Expected: 06/23/2024 (Approximate), Expi res: 06/23/2024 Start: 06-12-2024 End: 06-12-2024 Social Work 06/12/2024 3:00 PM EST Social Work [facility] [address] [place] [address] Jasmine Urban LISW-S [address] [place] [address] [facility] Start: 05-29-2024 End: 05-29-2024 Patient encounter procedure 05/29/2024 2:45 PM EST Office Visit [facility] [address] [place] [address] Tj Dutton MD [address] [place] [address] [facility] Start: 05-28-2024 End: 05-28-2024 Patient encounter procedure 05/28/2024 2:40 PM EST Office Visit [facility] [place] [address] [place] [address] Rajat Aguilar NP [address] [place] [address] [facility] Start: 05-08-2024 End: 05-08-2024 Social Work 05/08/2024 3:00 PM EST Social Work [facility] [address] [place] [phone] Jasmine Urban, FULL CHARGE BOOKKEEPER-S [address] [place] [address] [facility] Start: 04-04-2024 End: 04-04-2024 Social Work 04/04/2024 1:00 PM EST Social Work [facility] [address] [place] [phone] Jasmine Urban, FULL CHARGE BOOKKEEPER-S [address] [place] [address] [facility] Start: 03-05-2024 End: 03-05-2024 Patient encounter procedure 03/05/2024 1:50 PM EDT Office Visit [facility] [address] [place] [address] Ze Solis MD [address] [place] [address] [facility] Start: 03-01-2024 End: 03-01-2024 Social Work [facility] Comment on above: Arrived Start: 02-14-2024 End: 02-14-2024 Patient encounter procedure [facility] [place] [facility] Comment on above: Arrived Start: 02-07-2024 End: 02-07-2024 Social Work 02/07/2024 3:00 PM EDT Social Work [facility] [address] [place] [address] Jasmine Urban LISW-S [address] [place] [address] [facility] Start: 01-30-2024 End: 01-30-2024 Patient encounter procedure [facility] [place] [address] Comment on above: Arrived Start: 01-22-2024 Covid-19 Vaccine () Covid-19 Vaccine () [facility] Start: 01-22-2024 Influenza vaccination Influenza Vaccine (#1) [facility] Start: 06-25-2023 End: 06-25-2023 CBC W Auto Differential panel - Blood CBC + DIFF Lab Routine 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 Expected: 06/25/2023 (Approximate), Expires: 06/25/2023 [facility] Work Phone: Comment on above: Expected: 06/25/2023 (Approximate), Expi res: 06/25/2023 Start: 06-25-2023 End: 06-25-2023 Cobalamin (Vitamin B12) [Mass/volume] in Serum or Plasma VITAMIN B12 BLOOD Lab Routine 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 Expected: 06/25/2023 (Approximate), Expires: 06/25/2023 [facility] Work Phone: Comment on above: Expected: 06/25/2023 (Approximate), Expi res: 06/25/2023 Start: 06-25-2023 End: 06-25-2023 Comprehensive metabolic 2000 panel - Serum or Plasma COMP METABOLIC PANEL Lab Routine 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 Expected: 06/25/2023 (Approximate), Expires: 06/25/2023 [facility] Work Phone: Comment on above: Expected: 06/25/2023 (Approximate), Expi res: 06/25/2023 Start: 06-25-2023 End: 07-25-2023 Dup-scan artl patrick abdl/pel/scrot&/rpr orgn com US DOPPLER COMPLETE Radiology Routine 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 Expected: 06/25/2023 (Approximate), Expires: 07/25/2023 [facility] Work Phone: Comment on above: Expected: 06/25/2023 (Approximate), Expi res: 07/25/2023 Start: 06-25-2023 End: 06-25-2023 Ferritin [Mass/volume] in Serum or Plasma FERRITIN BLD Lab Routine 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 Expected: 06/25/2023 (Approximate), Expires: 06/25/2023 [facility] Work Phone: Comment on above: Expected: 06/25/2023 (Approximate), Expi res: 06/25/2023 Start: 06-25-2023 End: 06-25-2023 Folate [Mass/volume] in Serum or Plasma FOLATE SERUM Lab Routine 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 Expected: 06/25/2023 (Approximate), Expires: 06/25/2023 [facility] Work Phone: Comment on above: Expected: 06/25/2023 (Approximate), Expi res: 06/25/2023 Start: 06-25-2023 End: 06-25-2023 Iron and Iron binding capacity panel - Serum or Plasma IRON + TIBC Lab Routine 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 Expected: 06/25/2023 (Approximate), Expires: 06/25/2023 [facility] Work Phone: Comment on above: Expected: 06/25/2023 (Approximate), Expi res: 06/25/2023 Start: 06-25-2023 End: 07-25-2023 US ABD LIVER VASCULAR US ABD LIVER VASCULAR Radiology Routine 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 Expected: 06/25/2023 (Approximate), Expires: 07/25/2023 [facility] Work Phone: Comment on above: Expected: 06/25/2023 (Approximate), Expi res: 07/25/2023 Start: 05-23-2023 Depression Assessment Depression Assessment [facility] Start: 05-20-2023 Screening for malignant neoplasm of breast Mammogram [facility] Start: 02-24-2023 Screening for malignant neoplasm of colon [facility] Start: 06-19-2022 End: 08-19-2022 [id number] [Mass/volume] in Serum or Plasma ALPHA FETOPROTEIN BL Lab Routine 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) MENDEZ (nonalcoholic steatohepatitis) Expected: 06/19/2022 (Approximate), Expires: 08/19/2022 [facility] Work Phone: Comment on above: Expected: 06/19/2022 (Approximate), Expi res: 08/19/2022 Start: 06-19-2022 End: 12-17-2022 CBC W Auto Differential panel - Blood CBC + DIFF Lab Routine 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) MENDEZ (nonalcoholic steatohepatitis) Expected: 06/19/2022 (Approximate), Expires: 12/17/2022 [facility] Work Phone: Comment on above: Expected: 06/19/2022 (Approximate), Expi res: 12/17/2022 Start: 06-19-2022 End: 12-17-2022 Cobalamin (Vitamin B12) [Mass/volume] in Serum or Plasma VITAMIN B12 BLOOD Lab Routine 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) MENDEZ (nonalcoholic steatohepatitis) Expected: 06/19/2022 (Approximate), Expires: 12/17/2022 [facility] Work Phone: Comment on above: Expected: 06/19/2022 (Approximate), Expi res: 12/17/2022 Start: 06-19-2022 End: 12-17-2022 Comprehensive metabolic 2000 panel - Serum or Plasma COMP METABOLIC PANEL Lab Routine 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) MENDEZ (nonalcoholic steatohepatitis) Expected: 06/19/2022 (Approximate), Expires: 12/17/2022 [facility] Work Phone: Comment on above: Expected: 06/19/2022 (Approximate), Expi res: 12/17/2022 Start: 06-19-2022 End: 12-17-2022 Ferritin [Mass/volume] in Serum or Plasma FERRITIN BLD Lab Routine 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) MENDEZ (nonalcoholic steatohepatitis) Expected: 06/19/2022 (Approximate), Expires: 12/17/2022 [facility] Work Phone: Comment on above: Expected: 06/19/2022 (Approximate), Expi res: 12/17/2022 Start: 06-19-2022 End: 12-17-2022 Folate [Mass/volume] in Serum or Plasma FOLATE SERUM Lab Routine 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) MENDEZ (nonalcoholic steatohepatitis) Expected: 06/19/2022 (Approximate), Expires: 12/17/2022 [facility] Work Phone: Comment on above: Expected: 06/19/2022 (Approximate), Expi res: 12/17/2022 Start: 06-19-2022 End: 12-17-2022 Iron and Iron binding capacity panel - Serum or Plasma IRON + TIBC Lab Routine 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) MENDEZ (nonalcoholic steatohepatitis) Expected: 06/19/2022 (Approximate), Expires: 12/17/2022 [facility] Work Phone: Comment on above: Expected: 06/19/2022 (Approximate), Expi res: 12/17/2022 Start: 06-19-2022 End: 01-16-2023 Us abdominal real time w/image limited US ABD RT UPPER QUADRANT Radiology Routine 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) MENDEZ (nonalcoholic steatohepatitis) Expected: 06/19/2022 (Approximate), Expires: 01/16/2023 [facility] Work Phone: Comment on above: Expected: 06/19/2022 (Approximate), Expi res: 01/16/2023 Start: 05-23-2022 DEPRESSION ASSESSMENT DEPRESSION ASSESSMENT [facility] Start: 01-21-2022 Influenza vaccination INFLUENZA (#1) [facility] Start: 12-10-2021 Adult depression screening assessment DEPRESSION SCREENING [facility] Start: 09-29-2021 COVID-19 VACCINE (4 - Booster for Pfizer series) COVID-19 VACCINE (4 - Booster for Pfizer series) [facility] Start: 01-22-2020 Influenza vaccination INFLUENZA (#1) [facility] Start: 2020 RSV Vaccine (1 - 1-dose 60+ series) RSV Vaccine (1 - 1-dose 60+ series) [facility] Start: 2020 RSV Vaccine (1 - Risk 60-74 years 1-dose series) RSV Vaccine (1 - Risk 60-74 years 1-dose series) [facility] Start: 11-07-2017 HEPATITIS B (2 of 3 - Risk 3-dose series) HEPATITIS B (2 of 3 - Risk 3-dose series) [facility] Start: 11-07-2017 Hepatitis B Vaccine (2 of 3 - Risk 3-dose series) Hepatitis B Vaccine (2 of 3 - Risk 3-dose series) [facility] Start: 12-19-2014 Screening for malignant neoplasm of breast Mammogram Screening [facility] Start: 01-19-2010 Screening for malignant neoplasm of colon [facility] Start: 01-19-2010 SHINGRIX VACCINE (1 of 2) SHINGRIX VACCINE (1 of 2) [facility] Start: 01-06-2010 PNEUMOCOCCAL (2 - PCV) PNEUMOCOCCAL (2 - PCV) [facility] Start: 01-06-2010 Pneumococcal vaccination Pneumococcal Vaccine (2 of 2 - PCV) [facility] Start: 01-19-2005 COLOGUARD (FIT-DNA) COLOGUARD (FIT-DNA) [facility] Start: 01-19-2005 Colonoscopy COLONOSCOPY [facility] Start: 01-19-2005 COLORECTAL CANCER SCREENING COLORECTAL CANCER SCREENING [facility] Start: 01-19-[address] COLONOGRAPHY [facility] Start: 01-19-2005 DIABETES SCREEN DIABETES SCREEN [facility] Start: 01-19-2005 FECAL OCCULT BLOOD FECAL OCCULT BLOOD [facility] Start: 01-19-2005 LIPID SCREEN LIPID SCREEN [facility] Start: 01-19-2005 Screening for malignant neoplasm of colon [facility] Start: 01-19-2005 SIGMOIDOSCOPY SIGMOIDOSCOPY [facility] Start: 2000 Mammography MAMMOGRAM [facility] Start: 2000 Screening for malignant neoplasm of breast Mammogram Screening [facility] Start: 01-19-1990 HPV TESTING HPV TESTING [facility] Start: 01-19-1990 Screening for malignant neoplasm of cervix [facility] Start: 01-19-1981 PAP TESTING PAP TESTING [facility] Start: 01-19-1981 Screening for malignant neoplasm of cervix [facility] Start: 01-19-1979 Hepatitis A Vaccine (1 of 2 - Risk 2-dose series) Hepatitis A Vaccine (1 of 2 - Risk 2-dose series) [facility] Start: 01-19-1979 Urine microalbumin profile [facility] Start: 01-19-1978 Annual PCP Team Chronic Disease Visit Annual PCP Team Chronic Disease Visit [facility] Start: 01-19-1978 Anxiety Screening Anxiety Screening [facility] Start: 01-19-1978 Depression Screening Depression Screening [facility] Start: 01-19-1978 Hepatitis B surface antibody level LDL Cholesterol [facility] Start: 01-19-1978 HEPATITIS C SCREENING HEPATITIS C SCREENING [facility] Start: 01-19-1978 Hepatitis C screening Hepatitis C Screening [facility] Start: 01-19-1978 HIV SCREENING HIV SCREENING [facility] Start: 01-19-1978 HIV screening HIV Screening [facility] Start: 1972 Adult depression screening assessment DEPRESSION SCREENING [facility] Start: 01-19-1970 Diabetic foot examination Diabetic Foot Exam [facility] Start: 01-19-1970 Glaucoma screening Dilated Retinal Exam [facility] Start: 01-19-1970 Hepatitis B screening Urine Albumin:Creatinine Ratio [facility] Start: 01-19-1965 Hemoglobin A1c measurement HbA1C [facility] Start: 01-19-1961 HEPATITIS A (1 of 2 - Risk 2-dose series) HEPATITIS A (1 of 2 - Risk 2-dose series) [facility] Start: 1960 Screening for malignant neoplasm of colon [facility] End: 06-28-2025 CBC W Auto Differential panel - Blood COMPLETE BLOOD COUNT AND DIFFERENTIAL Lab Routine Biliary cirrhosis (HCC) MENDEZ (nonalcoholic steatohepatitis) 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 Every 6 months for 2 Occurrences starting 06/28/2024 until 06/28/2025 [facility] Work Phone: Comment on above: Every 6 months for 2 Occurrences startin g 06/28/2024 until 06/28/2025 End: 06-28-2025 Cobalamin (Vitamin B12) [Mass/volume] in Serum or Plasma VITAMIN B12 Lab Routine Biliary cirrhosis (HCC) MENDEZ (nonalcoholic steatohepatitis) 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 Every 6 months for 2 Occurrences starting 06/28/2024 until 06/28/2025 [facility] Comment on above: Every 6 months for 2 Occurrences startin g 06/28/2024 until 06/28/2025 End: 06-28-2025 Comprehensive metabolic 2000 panel - Serum or Plasma COMPREHENSIVE METABOLIC PANEL Lab Routine Biliary cirrhosis (HCC) MENDEZ (nonalcoholic steatohepatitis) 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 Every 6 months for 2 Occurrences starting 06/28/2024 until 06/28/2025 [facility] Comment on above: Every 6 months for 2 Occurrences startin g 06/28/2024 until 06/28/2025 End: 06-28-2025 Ferritin [Mass/volume] in Serum or Plasma FERRITIN Lab Routine Biliary cirrhosis (HCC) MENDEZ (nonalcoholic steatohepatitis) 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 Every 6 months for 2 Occurrences starting 06/28/2024 until 06/28/2025 [facility] Comment on above: Every 6 months for 2 Occurrences startin g 06/28/2024 until 06/28/2025 End: 06-28-2025 Folate [Mass/volume] in Serum or Plasma FOLATE, SERUM Lab Routine Biliary cirrhosis (HCC) MENDEZ (nonalcoholic steatohepatitis) 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 Every 6 months for 2 Occurrences starting 06/28/2024 until 06/28/2025 [facility] Comment on above: Every 6 months for 2 Occurrences startin g 06/28/2024 until 06/28/2025 IGP, APT HPV,RFX 16/18,45 IGP, APT HPV,RFX 16/18,45 Lab Routine Cervical cancer screening Screening for HPV (human papillomavirus) Ordered: 05/29/2024 [facility] Work Phone: Comment on above: Ordered: 05/29/2024 End: 06-28-2025 Iron and Iron binding capacity panel - Serum or Plasma IRON AND TIBC Lab Routine Biliary cirrhosis (HCC) MENDEZ (nonalcoholic steatohepatitis) 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 Every 6 months for 2 Occurrences starting 06/28/2024 until 06/28/2025 [facility] Comment on above: Every 6 months for 2 Occurrences startin g 06/28/2024 until 06/28/2025 End: 07-22-2024 US ABD RIGHT UPPER QUADRANT US ABD RIGHT UPPER QUADRANT Radiology Routine MENDEZ (nonalcoholic steatohepatitis) 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 1 Occurrences starting 06/23/2023 until 07/22/2024 [facility] Work Phone: Comment on above: 1 Occurrences starting 06/23/2023 until 07/22/2024 End: 07-28-2025 US Abdomen RUQ US ABD RIGHT UPPER QUADRANT Radiology Routine Biliary cirrhosis (HCC) MENDEZ (nonalcoholic steatohepatitis) 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 Every 6 months for 2 Occurrences starting 06/28/2024 until 07/28/2025 [facility] Comment on above: Every 6 months for 2 Occurrences startin g 06/28/2024 until 07/28/2025 End: 05-26-2025 US Spleen US ABD SPLEEN Radiology Routine Thrombocytopenia (HCC) Every 6 months for 3 Occurrences starting 04/26/2024 until 05/26/2025 [facility] Work Phone: Comment on above: Every 6 months for 3 Occurrences startin g 04/26/2024 until 05/26/[address] [facility] Immunizations Immunization Date Immunization Notes Care Provider Celeste fagan 03-23-2023 influenza virus vacc ine, unspecified formulation NGA WILKINS [facility] 03-17-2023 influenza virus vacc ine, unspecified formulation NGA WILKINS [facility] 03-24-2022 influenza virus vacc ine, unspecified formulation NGA WILKINS [facility] 03-24-2022 SARS-CoV-2 (COVID-19 ) [id number] NGA WILKINS [facility] 06-01-2021 influenza virus vacc ine, unspecified formulation NGA WILKINS [facility] 06-01-2021 Influenza, injectabl e, Madin Breann Canine Kidney, preservative free, quadrivalent Andre Funes MD Work Phone: [facility] 06-01-2021 SARS-CoV-2 (COVID-19 ) mRNA BNT-162b2 vax NGA WILKINS [facility] 09-09-2020 COVID-19 vaccine, ag e 12+ yr (PFIZER-BIONTECH - PURPLE TOP) Andre Funes MD Work Phone: [facility] Comment on above: Result Comment: most recent given 09/09/20 08-20-2020 COVID-19 vaccine, ag e 12+ yr (PFIZER-BIONTECH - PURPLE TOP) Andre Funes MD Work Phone: [facility] 06-04-2020 zoster vaccine recombinant Andre Funes MD Work Phone: [facility] 03-23-2020 zoster vaccine recombinant Andre Funes MD Work Phone: [facility] 02-14-2020 influenza virus vacc ine, unspecified formulation NGA JUANITO [facility] 02-14-2020 Influenza, injectabl e, Madin Breann Canine Kidney, preservative free, quadrivalent Andre Funes MD Work Phone: [facility] 06-05-2019 influenza virus vacc ine, unspecified formulation NGA WILKINS [facility] 06-05-2019 Influenza, injectabl e, Madin [place] Canine Kidney, preservative free, quadrivalent Andre Funes MD Work Phone: [facility] 05-21-2019 influenza virus vacc ine, unspecified formulation Andre Funes MD Work Phone: [facility] 05-21-2019 influenza, unspecifi ed formulation NGA WILKINS [facility] 04-19-2018 influenza virus vacc ine, unspecified formulation NGA JUANITO [facility] 04-19-2018 influenza, injectabl e, quadrivalent, preservative free Andre Funes MD Work Phone: [facility] 10-10-2017 hepatitis B vaccine, pediatric or pediatric/adolescent dosage Andre Funes MD Work Phone: [facility] 10-10-2017 hepatitis B vaccine, unspecified formulation Andre Funes MD Work Phone: [facility] 05-11-2017 hepatitis B vaccine, pediatric or pediatric/adolescent dosage Andre Funes MD Work Phone: [facility] 04-12-2017 hepatitis B vaccine, adult dosage Andre Funes MD Work Phone: [facility] 03-21-2017 influenza virus vacc ine, unspecified formulation NGA PAGERY [facility] 03-21-2017 influenza, injectabl e, quadrivalent, preservative free Andre Funes MD Work Phone: [facility] 04-12-2016 influenza virus vacc ine, unspecified formulation NGA JUANITO [facility] 04-12-2016 influenza, injectabl e, quadrivalent, preservative free Andre Funes MD Work Phone: [facility] 03-23-2014 influenza virus vacc ine, unspecified formulation Andre Funes MD Work Phone: [facility] 03-23-2014 influenza, unspecifi ed formulation NGA WILKINS [facility] 01-06-2009 pneumococcal polysaccharide vaccine, 23 valent Andre Funes MD Work Phone: [facility] Payers Date Payer Category Payer Self-pay 2024 Private Health Insurance [facility] D[facility] COMPLETE - MEDICAID [id number] 2024 Unknown [id number] 2022 Medicare (Managed Care) 1.2. [id number] 2022 Unknown [employer] D [employer] [id number] 2022-Present [address] [place] [phone] [id number] 2020 Medicare DEVOTED MEDICARE [employer] [id number] 2020-Present [phone] [address] [place] [address] HMO [id number] 2020 Medicare [id number]. [id number] 2020 Unknown [id number] 2020 Medicaid [id number] 2020 Medicaid [id number]. [id number] 2020 Medicare MEDICARE MEDICAR E A AND B [id number] 2020-Present [place] [id number]. [id number] 1960 Unknown [id number] .16.840.1.986256.3.579.2. 593 1960 Unknown [id number] 2.16.840.1.948618.3.579.2. 732 1960 Unknown [id number] 2.16.840.1.162099.3.579.2. 593 1960 Unknown [id number] 2.16.840.1.700647.3.579.2. 593 1960 Unknown [id number] 2.16.840.1.123605.3.579.2. 593 1960 Unknown [id number] 2.16.840.1.760033.3.579.2. 593 1960 Unknown [id number] 2.16.840.1.395649.3.579.2. 593 1960 Unknown [id number] 2.16.840.1.372821.3.579.2. 593 1960 Unknown [id number] 2.16.840.1.886253.3.579.2. 593 1960 Unknown [id number] 2.16.840.1.484263.3.579.2. 593 1960 Unknown [id number] 2.16.840.1.607904.3.579.2. 593 1960 Unknown [id number] 2.16.840.1.272073.3.579.2. 593 1960 Unknown [id number] 2.16.840.1.832360.3.579.2. 593 1960 Unknown [id number] 2.16.840.1.996216.3.579.2. 727 1960 Unknown [id number] 2.16.840.1.282164.3.579.2. 727 1960 Unknown [id number] 2.16.840.1.613905.3.579.2. 727 1960 Unknown [id number] 2.16.840.1.864109.3.579.2. 727 1960 Unknown [id number] 2.16.840.1.612478.3.579.2. 727 1960 Unknown [id number] 2.16.840.1.891792.3.579.2. 727 1960 Unknown [id number] 2.16.840.1.624408.3.579.2. 727 1960 Unknown [id number] 2.16.840.1.624256.3.579.2. 727 1960 Unknown [id number] 2.16.840.1.745073.3.579.2. 727 1960 Unknown [id number] 2.16.840.1.674190.3.579.2. 1960 Unknown [id number] 2.16.840.1.576122.3.579.2. 72 1960 Unknown [id number] 2.16.840.1.490978.3.579.2. 1960 Unknown [id number] 2.16.840.1.263535.3.579.2. 1960 Unknown [id number] 2.16.840.1.745386.3.579.2. 1258 1960 Unknown [id number] 2.16.840.1.340060.3.579.2. 1258 1960 Unknown [id number] 2.16.840.1.452085.3.579.2. 1258 1960 Unknown [id number] 2.16.840.1.080623.3.579.2. 1258 1960 Unknown [id number] 2.16.840.1.112214.3.579.2. 1258 1960 Unknown [id number] 2.16.840.1.449038.3.579.2. 1258 1960 Unknown [id number] 2.16.840.1.736307.3.579.2. 1258 1960 Unknown [id number] 2.16.840.1.300678.3.579.2. 1258 1960 Unknown [id number] 2.16.840.1.956932.3.579.2. 1258 1960 Unknown [id number] 2.16.840.1.048521.3.579.2. 1258 1960 Unknown [id number] 2.16.840.1.885673.3.579.2. 1259 1960 Unknown [id number] 2.16.840.1.506813.3.579.2. 1258 1960 Unknown [id number] 2.16.840.1.249944.3.579.2. 9 1960 Unknown [id number] 2.16.840.1.254537.3.579.2. 1258 1960 Unknown [id number] 2.16.840.1.318996.3.579.2. 1258 1960 Unknown [id number] 2.16.840.1.728524.3.579.2. 1258 1960 Unknown [id number] 2.16.840.1.402102.3.579.2. 1258 1960 Unknown [id number] 2.840.1.514640.3.579.2. 1258 1960 Unknown [id number] 2.16840.1.013378.3.579.2. 1259 1959 Medicaid [id number] Unknown [id number] 2.840.1.543109.3.579.2. 531 Social History Date Type Detail Facility Tobacco smoking stat [facility] Unknown if ever smoked [facility] Start: 1960 Sex Assigned At Not on file C [facility] Start: 08-06-2020 End: 05-26-2023 Tobacco smoking status [facility] Smokes tobacco daily [facility] History of tobacco use Cigarette Smoker C [facility] Start: 08-06-2020 End: 09-10-2024 Cigarettes smoked current (pack per day) - Reported 0.5 [facility] Start: 08-06-2020 End: 05-26-2023 Tobacco use and exposure Smokeless tobacco non-user [facility] Start: 06-11-2021 End: 09-10-2024 Alcohol intake Ex-drinker (finding) [facility] Start: 12-07-2021 End: 12-17-2021 Exposure to SARS-CoV-2 (event) Not sure [facility] Start: 06-23-2023 End: 09-10-2024 Sex Assigned At [facility] History of tobacco use Passive smoker [facility] Start: 05-03-2023 End: 10-19-2024 Tobacco smoking status Heavy tobacco smoker (finding) [facility] Tobacco smoking status Never [facility] Start: 05-26-2023 Tobacco Comment Thinks about quittin g [facility] Start: 05-26-2023 Alcohol Comment caffeine 1-2 c ups/day; coffee [facility] Start: 07-19-2023 Tobacco smoking stat us NHIS Smoker (finding) [facility] Start: 08-17-2024 Sex Female (finding) [facility] Start: 1960 Sex Assigned At Female F [facility] Sexual Orientation [facility] Medical Equipment Procedure Code Equipment Code Equipment Origin al Text Equipment Identifier Dates [id number] Start: 07-14-2022 End: 03-05-2024 Functional Status Date Assessment Result Facility 06-08-2024 Functional Status N/A [facility] 02-29-2024 Functional Status N/A [facility] 01-02-2024 Functional Status N/A [facility] 12-05-2023 Functional Status N/A [facility] 11-28-2023 Functional Status N/A [facility] 11-21-2023 Functional Status N/A [facility] 11-14-2023 Functional Status N/A [facility] 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) Memory changes [...] orders for this visit: Insulin long-term use ([facility]) Type 2 diabetes mellitus with hyperglycemia, unspecified whether custodial insulin use ([facility]) - POCT glucose manually resulted - POCT glycosylated hemoglobin (Hb A1C) docked device - insulin regular (HumuLIN R U-500 KWIKPEN) 500 UNIT/ML CONCENTRATED injection; INJECT 80 UNITS SUBCUTANEOUSLY TWICE A DAY We will continue his U500 60-20-20, Jardiance 25 mg once a day, Trulicity 3 mg once weekly. Vitamin D deficiency Encounter for dietary consultation High risk medication use Primary hypertension ([facility]) Hypoglycemia Microalbuminuria Type 2 diabetes mellitus with hyperglycemia ([facility]) - empagliflozin (Jardiance) 25 MG; Take 1 tablet (25 mg) by mouth Daily - insulin regular (HumuLIN R U-500 KWIKPEN) 500 UNIT/ML CONCENTRATED injection; INJECT 80 UNITS SUBCUTANEOUSLY TWICE A DAY Acquired hypothyroidism ([facility]) - T3, free; Future - T4, free; Future - TSH; Future We will check lab and adjust currently on levothyroxine 150 mcg daily. Follow up in about 4 months (around 03/01/2025). documented in this encounter [facility] 10-19-2024 Hospital Discharge instructions Patient Education 10/19/2024 [...] your health care provider. General instructions Take gdmt-bwz-qrdmgwg and prescription medicines only as told by [...] provider. Document Revised: 01/26/2021 Document Reviewed: 01/26/2021 [employer] Patient Education 2023 Connexient. Follow Up Care 06/08/2024 12:32:55 With:NGA WILKINS PA-C, URL Address: [address] [place] [address] When:Within 1 Year(s) [facility] 10-19-2024 Note Patient Education Obstetrics and [...] health care provider. General instructions ??? Take ejgf-ngz-vvustle and prescription medicines only as told by [...] drink, and whe (more content not included)... [facility] 09-10-2024 History of Present illness Narrative Images [...] not identified any triggers. Relieving factors include ynwz-pja-mqmgclo analgesics such as Aleve and rest. 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 Snack Bar Attendant strength 4+/5. LUE strength deltoid , biceps , triceps , wrist extensors , wrist flexor , and film waxer strength 5/5. RLE strength iliopsoas, quadriceps, tibialis [...] reflex 1+. LLE knee reflex 1+. Coordination: Umlcvy-hn-yylx testing normal. Rapid alternating movements are normal. No bradykinesia. Gait: Normal. Review and summary of old records: MOCA score on 05/28/2024: with 3/5 recall. EMG of the BLE on 11/10/2023: Normal. Labs on 11/15/2023: CK, myoglobin, and magnesium unremarkable. MOCA score at [facility] on 08/16/2023: . Labs on 06/23/2023: CBC unremarkable, CMP demonstrates elevated glucose - unsure of fasting status, and mildly low sodium 133 (advised patient to review with PCP), vitamin B12 586. MRI brain w and w/o contrast at [facility] on 04/04/23: Within limitations of motion artifact which moderately limited multiple pulse sequences, no discrete acute intracranial abnormalities or abnormal intracranial enhancement identified. Mild chronic microvascular ischemic changes were noted. Labs at [facility] on 10/19/22: CBC generally unremarkable; CMP generally unremarkable (creatinine 1.04, GFR 54); CK 68; TSH decreased at 0.292; B12 912. MOCA score at [facility] on 03/09/22: . CT of [...] patient denies jaw pain, monocular vision loss, head/sabianism tenderness, or constitutional symptoms to suggest GCA. [...] later referred to complete neuropsych eval in [place], [place], but also chose not to proceed [...] new or worsening symptoms. Sabrina Cox NP [facility] Advanced Neurology documented in this encounter [facility] 09-03-2024 Note [place] [facility] Subjective Renetta Barbosa is a 64 [...] Tramadol Unknown Trazodone Medications Current Outpatient Medications: mrrccljmdn-wdsewxvd-mlcyqdsdnz (Breztri Aerosphere) 160-9-4.8 mcg/actuation HFA aerosol inhaler, [...] (ProtoNix) 40 mg (more content not included)... [facility] 08-30-2024 History of Present illness Narrative Images [...] Mammo: Done last year per pt @ [facility] Menopausal Medication and Allergies Medication Documentation Review Audit Reviewed by Elizabeth Ulrich MA (Clinical Program Manager) on 08/30/24 at 1311 Medication Order Taking? Sig Documenting Provider Last Dose Status albuterol (ProAir RespiClick) 90 mcg/act breath-activated inhaler [id number] No every 4 (four) hours Tj Dutton MD Taking Active beta carotene (vitamin A) 3 MG (93355 UT) capsule [id number] No Take 10,000 Units by mouth in the morning. Tj Dutton MD Taking Active Breztri Aerosphere 160-9-4.8 MCG/ACT aerosol [id number] No INHALE 2 PUFFS TWICE A DAY DIRECTED 30 Tj Dutton MD Taking Active calcium carbonate (Os-Tanner) 1250 (500 Ca) MG tablet [id number] No Take by mouth Daily Tj Dutton MD Taking Active cholecalciferol (Vitamin D3) 200 Unit tablet split tablet [id number] No Take by mouth Daily Tj Dutton MD Taking Active clotrimazole (Lotrimin) 1 % cream [id number] No 1 application every 12 (twelve) hours Tj Dutton MD Taking Active Continuous Blood Gluc Sensor (FreeStyle Jeanne 2 Sensor) misc [id number] No USE DIRECTED Tj Dutton MD Taking Active cyanocobalamin (Vitamin B-12) 100 MCG tablet [id number] No Take 1,000 mcg by mouth in the morning. Tj Dutton MD Taking Active cycloSPORINE (Restasis) 0.05 % ophthalmic emulsion [id number] No every 12 (twelve) hours Tj Dutton MD Taking Active dicyclomine (Bentyl) 10 MG capsule [id number] No Take 10 mg by mouth in the morning and 10 mg at noon and 10 mg in the evening and 10 mg before bedtime. Rajat Aguilar NP Taking Active Patient not taking: Discontinued 08/30/24 1310 Dulaglutide (Trulicity) 3 MG/0.5ML solution auto-injector [id number] Inject 3 mg under the skin every 7 (seven) days Ze Solis MD Active estradiol (Yuvafem) 10 MCG tablet vaginal tablet [id number] INSERT 1 TABLET VAGINALLY TWO TIMES A WEEK FOR 90 DAYS Tj Dutton MD Active gabapentin (Neurontin) 300 MG capsule [id number] TAKE 1 CAPSULE BY MOUTH ONCE A DAY AT BEDTIME Rajat Aguilar NP Active glucagon (Gvoke HypoPen 2-Pack) 1 MG/0.2ML injection [id number] No Inject 1 mg under the skin 1 (one) time if needed Rajat Aguilar NP Taking Active insulin pen needle (B-D ULTRAFINE III SHORT PEN) 31G X 8 mm [facility] [id number] Use as instructed Ze Solis MD Active insulin regular (HumuLIN R U-500 KWIKPEN) 500 UNIT/ML CONCENTRATED injection [id number] INJECT 80 UNITS SUBCUTANEOUSLY TWICE A DAY Ze Solis MD Active Jardiance 25 MG [id number] TAKE 1 TABLET BY MOUTH EVERY DAY Ze Solis MD Active levothyroxine (Synthroid, Levoxyl) 150 MCG tablet [id number] No 1 (one) time each day at the same time Tj Dutton MD Taking Active loratadine (Claritin) 10 MG tablet [id number] Take by mouth Tj Dutton MD Active losartan (Cozaar) 100 MG tablet [id number] Rajat Aguilar NP Active magnesium 30 MG tablet [id number] Take 30 mg by mouth in the morning and 30 mg before bedtime. Tj Dutton MD Active Myrbetriq 25 MG 24 hr tablet [id number] Take 50 mg by mouth Daily Rajat Aguilar NP Active nystatin (Mycostatin) 318088 UNIT/GM powder [id number] APPLY TO AFFECTED AREA TWICE A DAY Tj Dutton MD Active pantoprazole (ProtoNix) 40 MG EC tablet [id number] No 1 (one) time each day at the same time Tj Dutton MD Taking Active pravastatin (Pravachol) 40 MG tablet [id number] No Take 40 mg by mouth at bedtime Rajat Aguilar NP Taking Active primidone (Mysoline) 50 MG tablet [id number] No TAKE 2 TABLETS BY MOUTH TWICE A DAY Tan Sotelo DO Taking Active thiamine (Vitamin B-1) 50 MG tablet [id number] No Take 50 mg by mouth in the morning. Tj Dutton MD Taking Active tiZANidine (Zanaflex) 4 MG tablet [id number] TAKE 1/2-1 TABLET BY MOUTH AT BEDTIME NEEDED Gi Arriaga NP Active triamcinolone (Kenalog) 0.1 % cream [id number] No Apply topically 2 (two) times a day to affected area Tj Dutton MD Taking Active venlafaxine XR (Effexor XR) 150 MG 24 hr capsule [id number] No Take 150 mg by mouth in the morning. Tj Dutton MD Taking Active Zinc Sulfate (ZINC 15 PO) [id number] Take by mouth Tj Dutton MD Active Allergies Allergen Reactions Capsaicin Tramadol Past Medical History: Diagnosis Date Abnormal Pap smear of vagina ADD (attention deficit disorder) Anxiety Autoimmune thyroiditis (CMS/HCC) COPD (chronic obstructive pulmonary disease) (CMS/HCC) Depression (CMS/HCC) Diabetes (CMS/HCC) Essential (primary) hypertension (CMS/HCC) GERD (gastroesophageal reflux disease) High cholesterol (CMS/HCC) Hypoglycemia Hypothyroidism (CMS/HCC) Liver disease residential (current) use of insulin (CMS/HCC) Memory changes [...] in this encounter. documented in this encounter [facility] 07-02-2024 Telephone encounter Note Pt needs PA for Trulicity due to new ins at the beginning of the year. INS in chart. Thanks! [facility] 07-02-2024 Miscellaneous Notes Pt needs PA for Trulicity due to new ins at the beginning of the year. INS in chart. Thanks! documented in this encounter [facility] 07-02-2024 History of Present illness Narrative Renetta [...] Every 12 hours Continuous Blood Gluc Sensor ([employer] Jeanne 2 Sensor) misc USE DIRECTED cyanocobalamin [...] daily Myrbetriq 25 mg, Daily nystatin (Mycostatin) 451755 UNIT/GM powder Topical, 2 times daily, to [...] cholesterol (CMS/HCC) Hypoglycemia Hypothyroidism (CMS/HCC) Liver disease residential (current) use of insulin (CMS/HCC) Memory changes [...] hyperglycemia, with long-term current use of insulin ([facility]) - POCT glucose manually resulted - POCT glycosylated hemoglobin (Hb A1C) docked device We will continue with U500 40 am and 60 units pm, and I gave her permission to adjust according to her meal size, continue Trulicity 3 mg once weekly, Jardiance 25 mg once. 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 documented in this encounter [facility] 06-28-2024 Instructions Chely Cantu - 06/28/2024 2:42 PM EST Anemia panel & AFP labs and US RUQ/Abdomen q 6 months with PCP RTC PRN documented in this encounter [facility] [place] 06-28-2024 History of Present illness Narrative Images from the original note were not included. NAME: Renetta Barbosa [facility] NO.: [id number] DATE OF SERVICE: June 28, 2024 ([facility]) Some elements in this clinic note [...] returns today in follow up. US in [facility] with enlarged nodular liver no masses. [...] iron studies have been drawn at [facility]. She states that she has bleeding hemorrhoids. [...] work-up with CT scans and ultrasounds from [facility]. I was also able to review records [...] Take 150 mg by mouth once daily. [employer] JEANNE 2 SENSOR kit bisacodyl EC (DULCOLAX) [...] (FLONASE) 50 mcg/actuation nasal spray Use 1 [place] in each nostril as needed. levothyroxine (SYNTHROID) [...] which included preparing to see the patient, oxpi-pt-xcni patient care, completing clinical documentation, performing a medically appropriate examination, counseling and educating the patient/family/caregiver, ordering medications, tests, or procedures, independently interpreting results (not separately reported), communicating results to the patient/family/caregiver, and care coordination (not separately reported). Andre Funes MD, CPE Hematology and Oncology Services Provided at: [place], [place] Scribe Attestation: This note was scribed [...] direction. CC: Shakira Higgins CNP [address] [facility] [id number] documented in this encounter [facility] [place] 06-28-2024 Note HNO ID: [id number] Author: ANDRE FUNES MD Service: ? Author Type: Physician Type: Progress Notes Filed: 06/28/2024 15:34 Note Text: NAME: Renetta Barbosa CLINIC NO.: [id number] DATE OF SERVICE: June 28, 2024 ([place]) [...] returns today in follow up. US in [facility] with enlarged nodular liver no masses. [...] taken once daily. (more content not included)... [facility] 06-26-2024 Telephone encounter Note Michael DANIELS please and thank you. [facility] 06-26-2024 Miscellaneous Notes Michael DANIELS please and thank you. documented in this encounter [facility] 06-08-2024 Hospital Discharge instructions Patient Education 06/08/2024 [...] your health care provider. General instructions Take vjkm-xqy-fqioabu and prescription medicines only as told by [...] provider. Document Revised: 01/26/2021 Document Reviewed: 01/26/2021 [employer] Patient Education 2023 Connexient. Follow Up Care 04/27/2024 12:54:51 With:JUANITO BREWER, NGA Freedman, URL Address: [address] [place] [address] When:Within 3 Month(s) [facility] Note Patient Education Obstetrics and Gynecology [...] health care provider. General instructions ??? Take sowl-zke-pnehqyk and prescription medicines only as told by [...] drink, and whe (more content not included)... [facility] 05-29-2024 History of Present illness Narrative Images [...] Mammo: Done last year per pt @ [facility] Menopausal Medication and Allergies Medication Documentation Review Audit Reviewed by Elizabeth Ulrich MA (Clinical Program Manager) on 05/29/24 at 1452 Medication Order Taking? Sig Documenting Provider Last Dose Status albuterol (ProAir RespiClick) 90 mcg/act breath-activated inhaler [id number] every 4 (four) hours Tj Dutton MD Active Patient not taking: Discontinued 05/29/24 1450 beta carotene (vitamin A) 3 MG (89020 UT) capsule [id number] Take 10,000 Units by mouth in the morning. Tj Dutton MD Active Breztri Aerosphere 160-9-4.8 MCG/ACT aerosol [id number] INHALE 2 PUFFS TWICE A DAY DIRECTED 30 Tj Dutton MD Active calcium carbonate (Os-Tanner) 1250 (500 Ca) MG tablet [id number] Take by mouth Daily Tj Dutton MD Active Patient not taking: Discontinued 05/29/24 1451 cholecalciferol (Vitamin D3) 200 Unit tablet split tablet [id number] Take by mouth Daily Tj Dutton MD Active clotrimazole (Lotrimin) 1 % cream [id number] 1 application every 12 (twelve) hours Tj Dutton MD Active Continuous Blood Gluc Sensor (FreeStyle Jeanne 2 Sensor) [facility] [id number] USE DIRECTED Tj Dutton MD Active cyanocobalamin (Vitamin B-12) 100 MCG tablet [id number] Take 1,000 mcg by mouth in the morning. Tj Dutton MD Active cycloSPORINE (Restasis) 0.05 % ophthalmic emulsion [id number] every 12 (twelve) hours Tj Dutton MD Active dicyclomine (Bentyl) 10 MG capsule [id number] Take 10 mg by mouth in the morning and 10 mg at noon and 10 mg in the evening and 10 mg before bedtime. Rajat Aguilar NP Active doxepin (SINEquan) 10 MG capsule [id number] TAKE 1-2 CAPSULES BY MOUTH EVERYDAY AT BEDTIME Mary Allen DO Active Patient not taking: Discontinued 05/29/24 1451 Dulaglutide (Trulicity) 3 MG/0.5ML solution auto-injector [id number] INJECT 3 MG SUBCUTANEOUSLY WEEKLY Ze Solis MD Active estradiol (Vagifem) 10 MCG tablet vaginal tablet [id number] 1 tablet Vaginal Two times a Week for 90 days Tj Dutton MD Active gabapentin (Neurontin) 300 MG capsule [id number] TAKE 1 CAPSULE BY MOUTH ONCE A DAY AT BEDTIME Rajat Aguilar NP Active glucagon (Gvoke HypoPen 2-Pack) 1 MG/0.2ML injection [id number] Inject 1 mg under the skin 1 (one) time if needed Rajat Aguilar NP Active insulin pen needle (B-D ULTRAFINE III SHORT PEN) 31G X 8 mm [facility] [id number] Use as instructed Ze Solis MD Active insulin regular (HumuLIN R U-500 KWIKPEN) 500 UNIT/ML CONCENTRATED injection [id number] INJECT 80 UNITS SUBCUTANEOUSLY TWICE A DAY Ze Solis MD Active Jardiance 25 MG [id number] TAKE 1 TABLET BY MOUTH EVERY DAY Ze Solis MD Active levothyroxine (Synthroid, Levoxyl) 150 MCG tablet [id number] 1 (one) time each day at the same time Tj Dutton MD Active loratadine (Claritin) 10 MG tablet [id number] Take by mouth Tj Dutton MD Active Patient not taking: Discontinued 05/29/24 1451 losartan (Cozaar) 50 MG tablet [id number] TAKE 1 TABLET BY MOUTH EVERY DAY FOR 30 DAYS Rajat Aguilar NP Active Patient not taking: Discontinued 05/29/24 1450 magnesium 30 MG tablet [id number] Take 30 mg by mouth in the morning and 30 mg before bedtime. Tj Dutton MD Active Myrbetriq 25 MG 24 hr tablet [id number] Take 25 mg by mouth Daily Rajat Aguilar NP Active nystatin (Mycostatin) 008236 UNIT/GM powder [id number] APPLY TO AFFECTED AREA TWICE A DAY Tj Dutton MD Active pantoprazole (ProtoNix) 40 MG EC tablet [id number] 1 (one) time each day at the same time Tj Dutton MD Active pravastatin (Pravachol) 40 MG tablet [id number] Take 40 mg by mouth at bedtime Rajat Aguilar NP Active primidone (Mysoline) 50 MG tablet [id number] TAKE 2 TABLETS BY MOUTH TWICE A DAY Tan Sotelo DO Active thiamine (Vitamin B-1) 50 MG tablet [id number] Take 50 mg by mouth in the morning. Tj Dutton MD Active triamcinolone (Kenalog) 0.1 % cream [id number] Apply topically 2 (two) times a day to affected area Tj Dutton MD Active venlafaxine XR (Effexor XR) 150 MG 24 hr capsule [id number] Take 150 mg by mouth in the morning. Tj Dutton MD Active Zinc Sulfate (ZINC 15 PO) [id number] Take by mouth Tj Dutton MD Active Patient not taking: Discontinued 05/29/24 1451 Allergies Allergen Reactions Capsaicin Tramadol Past Medical History: Diagnosis Date Abnormal Pap smear of vagina ADD (attention deficit disorder) Anxiety Autoimmune thyroiditis (CMS/HCC) COPD (chronic obstructive pulmonary disease) (CMS/HCC) Depression (CMS/HCC) Diabetes (CMS/HCC) Essential (primary) hypertension (CMS/HCC) GERD (gastroesophageal reflux disease) High cholesterol (CMS/HCC) Hypoglycemia Hypothyroidism (CMS/HCC) Liver disease residential (current) use of insulin (CMS/HCC) Memory changes [...] requisition? 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 LUE Strength deltoid , biceps , triceps , wrist extensors , wrist flexor , film waxer strength 5/5. RLE Strength illopsoas, quadriceps, tibialis [...] knee reflex 1+. Batista's Sign negative. Coordination: Wmeeqd-ct-cckn testing is normal Rapid alternating movements are [...] review with PCP), B12 586 MOCA at [facility] on 08/16/23: MRI brain w and w/o contrast at [facility] on 04/04/23: Within limitations of motion artifact which moderately limited multiple pulse sequences, no discrete acute intracranial abnormalities or abnormal intracranial enhancement identified. Mild chronic microvascular ischemic changes were noted. Labs at [facility] on 10/19/22: CBC generally unremarkable; CMP generally unremarkable (creatinine 1.04, GFR 54); CK 68; TSH decreased at 0.292; B12 912 MOCA at [facility] on 03/09/22: CT of the [...] right wrist and thumb pain with decreased film waxer strength notable on clinical exam. While changes [...] and return instructions documented in this encounter [facility] 04-26-2024 Telephone encounter Note [facility] needs additional order for US to include the spleen with her abdomen US every 6 months. The other US Abd will not include the spleen. If needed each time, will need 2 orders sent each time. Fax to US directly: [phone] Mio: please review and sign Luz Hamilton RN [facility] [place] 04-26-2024 Miscellaneous Notes [facility] needs additional order for US to include the spleen with her abdomen US every 6 months. The other US Abd will not include the spleen. If needed each time, will need 2 orders sent each time. Fax to US directly: [phone] Mio: please review and sign Luz Hamilton RN documented in this encounter [facility] [place] 04-23-2024 Telephone encounter Note Pt calling to [...] will allow her. 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) Memory changes [...] hyperglycemia, with long-term current use of insulin ([facility]) - POCT glucose manually resulted - [...] Jardiance 25 mg once Insulin long-term use ([facility]) Vitamin D deficiency Encounter for dietary consultation High risk medication use Primary hypertension ([facility]) Hypoglycemia Class 2 severe obesity due to excess calories with serious comorbidity and body mass index (BMI) of 35.0 to 35.9 in adult ([facility]) Diet and exercise reviewed with the patient Microalbuminuria Continue with Cozaar 25 mg Hypothyroidism, primary Continue levothyroxine 150 mcg Follow up in about 4 months (around 07/06/2024). documented in this encounter [facility] 03-01-2024 History of Present illness Narrative SW [...] actions or behaviors. documented in this encounter [facility] 02-29-2024 Hospital Discharge instructions Patient Education 02/29/2024 [...] your health care provider. General instructions Take bhng-dht-ialyujj and prescription medicines only as told by [...] provider. Document Revised: 01/26/2021 Document Reviewed: 01/26/2021 [employer] Patient Education 2023 Conne[employer]ient. Follow Up Care 01/02/2024 12:35:13 With:NGA WILKINS PA-C, URL Address: [address] [place] [address] When:3 months [facility] [place] 02-29-2024 Note Patient Education Obstetrics and [...] health care provider. General instructions ? Take xgyj-saw-wrqvfgd and prescription medicines only as told by [...] your health care (more content not included)... [facility] 02-14-2024 History of Present illness Narrative Images [...] would go to her daughter's house in [place] but she once forgot it there so [...] was councelled on the risks of stroke, [place], and sudden with CASSIE, along with the [...] clinic: 3 months documented in this encounter [facility] 01-30-2024 History of Present illness Narrative Images from the original note were not included. Chief Complaint Patient presents with Tremors Anxiety Cognitive concern Subjective Renetta Barbosa, 64 y.o., female The patient presents today for follow up. She again denies neuropsych evaluation in [place]. She drives without safety concerns. Denies getting [...] , wrist extensors , wrist flexor , film waxer strength 5/5. LUE Strength deltoid , biceps , triceps , wrist extensors , wrist flexor , film waxer strength 5/5. RLE Strength illopsoas, quadriceps, tibialis [...] knee reflex 1+. Batista's Sign negative. Coordination: Qmtbeh-jn-aoci testing is normal Rapid alternating movements are normal Gait: Normal Review and summary of old records: EMG of the BLE on 11/10/2023: Normal EMG. Labs on 11/15/2023: CK, myoglobin, magnesium are unremarkable Labs on 06/23/23: CBC unremarkable, CMP demonstrates elevated glucose - unsure of fasting status, and mildly low sodium 133 (advised patient to review with PCP), B12 586 MOCA at [facility] on 08/16/23: MRI brain w and w/o contrast at [facility] on 04/04/23: Within limitations of motion artifact which moderately limited multiple pulse sequences, no discrete acute intracranial abnormalities or abnormal intracranial enhancement identified. Mild chronic microvascular ischemic changes were noted. Labs at [facility] on 10/19/22: CBC generally unremarkable; CMP generally unremarkable (creatinine 1.04, GFR 54); CK 68; TSH decreased at 0.292; B12 912 MOCA at [facility] on 03/09/22: CT of the [...] for neuropsych evaluation to [place] (She did [facility] multiple appointments with Dr. Siegel). Contact [...] return instructions HPI documented in this encounter [facility] 01-02-2024 Hospital Discharge instructions Patient Education 01/02/2024 [...] your health care provider. General instructions Take nrfy-rjs-aesgzov and prescription medicines only as told by [...] provider. Document Revised: 01/26/2021 Document Reviewed: 01/26/2021 [employer] Patient Education 2022 Connexient. Follow Up Care 10/31/2023 12:01:52 With:JUANITO BREWER, NGA Freedman, URL Address: [address] [place] [address] When:3 months [facility] [place] 01-02-2024 Note Patient Education Obstetrics and Gynecology [...] health care provider. General instructions ? Take vbti-saj-eghvqzo and prescription medicines only as told by [...] your health care (more content not included)... [facility] 12-05-2023 Hospital Discharge instructions Patient [...] provider. Document Revised: 09/17/2021 Document Reviewed: 09/17/2021 [employer] Patient Education 2022 Connexient. Follow Up Care 11/14/2023 12:46:23 With:JUANITO BREWER, NGA Freedman, URL Address: [address] [place] [address] When:Within 2 Week(s) [facility] [place] 12-05-2023 Note Patient Education Obstetrics and [...] provider. Document Revised: 09/17/2021 Document Reviewed: 09/17/2021 [employer] Patient Education ? 2022 Connexient. [facility] 11-28-2023 Hospital Discharge instructions Patient [...] provider. Document Revised: 09/17/2021 Document Reviewed: 09/17/2021 [employer] Patient Education 2022 Connexient. Follow Up Care 09/14/2023 15:08:51 With:NGA WILKINS PA-C, URL Address: [address] [place] [address] When: Unknown [facility] [place] 11-28-2023 Note Patient Education Obstetrics and [...] provider. Document Revised: 09/17/2021 Document Reviewed: 09/17/2021 [employer]akala Patient Education ? 2022 Connexient. [facility] 11-21-2023 Hospital Discharge instructions Patient [...] your health care provider. General instructions Take qvsc-dsq-owymxhy and prescription medicines only as told by [...] provider. Document Revised: 01/26/2021 Document Reviewed: 01/26/2021 [employer] Patient Education 2022 Connexient. Follow Up Care 09/14/2023 15:07:45 With:JUANITO BREWER, NGA Freedman, URL Address: [address] [place] [address] When:Within 1 Week(s) [facility] [place] 11-21-2023 Note Patient Education Obstetrics and [...] health care provider. General instructions ? Take zoxg-mpz-qtkfcou and prescription medicines only as told by [...] your health care (more content not included)... [facility] 11-14-2023 Hospital Discharge instructions Patient [...] your health care provider. General instructions Take cidf-gzt-zfvnhdg and prescription medicines only as told by [...] provider. Document Revised: 01/26/2021 Document Reviewed: 01/26/2021 [employer] Patient Education 2022 [employer] Follow Up Care 09/14/2023 15:06:58 With:NGA WILKINS PA-C, URL Address: [address] [address] When:Within 1 Week(s) [facility] [place] 06-23-2023 Instructions GeraldEkaterinara - 06/23/2023 2:19 [...] prior to return documented in this encounter [facility] [place] 06-23-2023 History of Present illness Narrative Images from the original note were not included. NAME: Renetta Barbosa CLINIC NO.: [id number] DATE OF SERVICE: June 23, 2023 ([facility]) Some elements in this clinic note [...] returns today in follow up. US in [facility] with enlarged nodular liver no masses. [...] iron studies have been drawn at [facility]. She states that she has bleeding hemorrhoids. [...] work-up with CT scans and ultrasounds from [facility]. I was also able to review records [...] (FLONASE) 50 mcg/actuation nasal spray Use 1 Stratford in each nostril as needed. furosemide (LASIX) [...] which included preparing to see the patient, hjra-gg-rpkf patient care, completing clinical documentation, performing a medically appropriate examination and ordering medications, tests, or procedures. Andre Funes MD, CPE H[facility]ology [facility] Oncology Services Provided at: [place], [place] Scribe Attestation: This note was scribed [...] and under my direction. CC: Shakira Higgins, GENERAL SUPERINTENDENT [address] [address] documented in this encounter [facility] [place] 05-03-2023 Hospital Discharge instructions Patient Education 05/03/2023 [...] your health care provider. General instructions Take nswd-usg-qttpbdu and prescription medicines only as told by [...] provider. Document Revised: 01/26/2021 Document Reviewed: 01/26/2021 Inspi[employer]c Patient Education 2022 Connexient. Follow Up Care 03/22/2023 12:50:20 With:[facility] [place] Address: [address] [place] [address]. [place] [address] Business (1) When: Unknown Comments:our care team coordinator scheduler will be contacting you for follow-up [facility] 04-05-2023 Evaluation note Encounter Date Diagnosis Assessment Notes Mar, GERD (gastroesopha geal reflux disease) (ICD-10 - K21.9) Stop pantoprazole Rto 3 months Mar, Abdominal pain (ICD-10 - R10.9) Mar, Diarrhea (ICD-10 - R19.7) Mar, Nausea (ICD-10 - R11.0) [facility] Other 05-09-2023 Evaluation note* Encounter Date Diagnosis Assessment Notes Treatment Notes Treatment Clinical Notes September, Abdominal pain (ICD-10 - R10.9) September, Diarrhea (ICD-10 - R19.7) Patient states she goes back and fourth between diarrhea and constipation. September, GERD (gastroesophageal reflux disease) (ICD-10 - K21.9) [facility] Other 02-03-2023 Instructions* Patient Instructions* Andre Funes [...] Liver prior to return [facility] [place] History of Present illness Narrative* Andre Funes MD - 06/25/2022 2:01 PM EST Images from the original note were not included. NAME: Renetta Barbosa CLINIC NO.: [id number] DATE OF SERVICE: June 25, 2022 ([place]) [...] thrombocytopenia. Updated Visit, September 10, 2020: Renetta Barbsoa returns for follow-up. Since her last visit [...] iron studies have been drawn at [facility]. She states that she has bleeding hemorrhoids. [...] work-up with CT scans and ultrasounds from [facility]. I was also able to review records [...] (FLONASE) 50 mcg/actuation nasal spray Use 1 Strat[place] in each nostril as needed. furosemide (LASIX) [...] which included preparing to see the patient, bqlr-xw-wptp patient care, completing clinical documentation, performing a medically appropriate examination and ordering medications, tests, or procedures. Andre Funes MD, CPE [place], [place] CC: Shakira Higgins CNP [address] [address] [facility] [place] Evaluation note* Encounter Date Diagnosis Assessment Notes Treatment Notes Treatment Clinical Notes May, Abdominal pain (ICD-10 - R10.9) Stop Atorvastatin & Metformin for 1 month RTO 1 month May, Diarrhea (ICD-10 - R19.7) May, GERD (gastroesophageal reflux disease) (ICD-10 - K21.9) [facility] [email or web address] Other 11-10-2022 Evaluation note* Encounter Date Diagnosis Assessment Notes Treatment Notes Treatment Clinical Notes Mar, Abdominal pain (ICD-10 - R10.9) [facility] [email or web address] Other 10-13-2022 Evaluation note* Encounter Date Diagnosis Assessment Notes Treatment Notes Treatment Clinical Notes Feb, GERD (gastroesophageal reflux disease) (ICD-10 - K21.9) CONTINUE PANTOPRAZOLE 40 MG DAILY Feb, Abdominal pain (ICD-10 - R10.9) RTO 6 WEEKS COPY OF LOW FODMAP DIET GIVEN TO PATIENT Feb, Diarrhea (ICD-10 - R19.7) START WOOTEN [facility]/[employer] [facility] [email or web address] Other 07-28-2022 History of Present illness Narrative* Andre Funes MD - 12/17/2021 2:15 PM EDT Images from the original note were not included. NAME: Renetta Barbosa CLINIC NO.: [id number] DATE OF SERVICE: December 17, 2021 Some [...] iron studies have been drawn at [facility]. She states that she has bleeding hemorrhoids. [...] work-up with CT scans and ultrasounds from [facility]. I was also able to review records [...] petechiae. ALLERGIES: ALLERGIES No Known Allergies MEDICATIONS: [employer] 2 SENSOR kit busPIRone (BUSPAR) 10 mg [...] (FLONASE) 50 mcg/actuation nasal spray Use 1 Stratford in each nostril as needed. furosemide (LASIX) [...] which included preparing to see the patient, kgsm-tk-aolw patient care, completing clinical documentation, performing a medically appropriate examination and ordering medications, tests, or procedures. Andre Funes MD, [place], [place] CC: Shakira Higgins, GENERAL SUPERINTENDENT [address] [address] [facility] [place] Plan note No data available for this section [facility] evaluation + Plan note Future Appointments Appointment Date:11/07/2023 11:20:00 AM Scheduled Provider:NGA WILKINS PA-C Location:[facility] Appointment Type:URO Procedure 30 min Appointment Date:11/14/2023 11:20:00 AM Scheduled Provider:NGA WILKINS PA-C Location[facility] [place] Appointment Type:URO Procedure 30 min Appointment Date:11/30/2023 11:20:00 AM Scheduled Provider:NGA WILKINS PA-C Location:[facility] [place] Appointment Type:URO Procedure 30 min Appointment Date:12/07/2023 11:20:00 AM Scheduled Provider:NGA WILKINS PA-C [facility] Type:URO Procedure 30 min Appointment Date:12/28/2023 11:20:00 AM Scheduled Provider:NGA WILKINS PA-C Location[facility] [place] Appointment Type:URO Procedure 30 min Appointment Date:01/04/2024 11:20:00 AM Scheduled Provider:NGA WILKINS PA-C Location:[facility] Appointment Type:URO Procedure 30 min [facility] [place] Evaluation + Plan note Future Appointments Appointment Date:11/14/2023 11:20:00 AM Scheduled Provider:NGA WILKINS PA-C Location:[facility] [place] Appointment Type:URO Procedure 30 min Appointment Date:11/21/2023 11:20:00 AM Scheduled Provider:NGA WILKINS PA-C Location:[facility] [place] Appointment Type:URO Procedure 30 min Appointment Date:11/28/2023 11:20:00 AM Scheduled Provider:NGA WILKINS PA-C Location:[facility] [place] Appointment Type:URO Procedure 30 min Appointment Date:12/19/2023 11:20:00 AM Scheduled Provider:NGA WILKINS PA-C Location:[facility] [place] Appointment Type:URO Procedure 30 min Appointment Date:01/02/2024 11:20:00 AM Scheduled Provider:NGA WILKINS PA-C Location:[facility] Appointment Type:URO Procedure 30 min [facility] [place] Evaluation + Plan note Future Appointments Appointment Date:11/21/2023 11:20:00 AM Scheduled Provider:NGA WILKINS PA-C Location:[facility] Appointment Type:URO Procedure 30 min Appointment Date:11/28/2023 11:20:00 AM Scheduled Provider:NGA WILKINS PA-C Location:[facility] [place] Appointment Type:URO Procedure 30 min Appointment Date:12/05/2023 11:20:00 AM Scheduled Provider:NGA WILKINS PA-C Location:[facility] [place] Appointment Type:URO Procedure 15 min Appointment Date:12/19/2023 11:20:00 AM Scheduled Provider:NGA WILKINS PA-C Location:[facility] [place] Appointment Type:URO Procedure 30 min Appointment Date:01/02/2024 11:20:00 AM Scheduled Provider:NGA WILKINS PA-C Location:[facility] Appointment Type:URO Procedure 30 min [facility] Evaluation + Plan note Future Appointments Appointment Date:11/28/2023 11:20:00 AM Scheduled Provider:NGA WILKINS PA-C Location:[facility] [place] Appointment Type:URO Procedure 30 min Appointment Date:12/05/2023 11:20:00 AM Scheduled Provider:NGA WILKINS PA-C [facility] Type:URO Procedure 15 min Appointment Date:12/19/2023 11:20:00 AM Scheduled Provider:NGA WILKINS PA-C Location:[facility] [place] Appointment Type:URO Procedure 30 min Appointment Date:01/02/2024 11:20:00 AM Scheduled Provider:[facility]IL[facility]-C [facility] Procedure 30 min [facility] Evaluation + Plan note Future Appointments Appointment Date:12/05/2023 11:20:00 AM Scheduled Provider:NGA WILKINS PA-C [facility] App[facility] Type:URO Procedure 15 min Appointment Date:12/19/2023 11:20:00 AM Scheduled Provider:NGA WILKINS PA-C [facility] App[facility] Type:URO Procedure 30 min Appointment Date:01/02/2024 11:20:00 AM Scheduled Provider:NGA WILKINS PA-C Location:[facility] Appointment Type:URO Procedure 30 min [facility] evaluation + Plan note Future Appointments Appointment Date:12/19/2023 11:20:00 AM Scheduled Provider:NGA WILKINS PA-C Location:[facility] [place] Appointment Type:URO Procedure 30 min Appointment Date:01/02/2024 11:20:00 AM Scheduled Provider:NGA WILKINS PA-C Location:[facility] [place] Appointment Type:URO Procedure 30 min [facility] [place] Evaluation + Plan note Future Appointments Appointment Date:02/29/2024 08:20:00 AM Scheduled Provider:NGA WILKINS PA-C Location:[facility] Appointment Type:URO Office Visit [facility] [place] evaluation + Plan note Future Appointments Appointment Date:09/03/2024 02:40:00 PM Scheduled Provider:NGA WILKINS PA-C Location:[facility] Appointment Type:URO Office Visit [facility] evaluation + Plan note Future Appointments Appointment Date:10/25/2025 11:20:00 AM Scheduled Provider:NGA WILKINS PA-C Location:[facility] Appointment Type:URO Office Visit [facility] evaluation note* Diagnosis 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) Cirrhosis of liver without mention of alcohol MENDEZ (nonalcoholic steatohepatitis) Other chronic nonalcoholic liver disease documented in this encounter [facility] note* Diagnosis Cirrhosis of liver not due to alcohol (HCC)- Primary Cirrhosis of liver without mention of alcohol MENDEZ (nonalcoholic steatohepatitis) Other chronic nonalcoholic liver disease 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 thrombocytopenia documented in this encounter [facility] noteNo [facility] Other Evaluation note* Diagnosis MENDEZ (nonalcoholic steatohepatitis)- Primary Other chronic nonalcoholic liver disease Cirrhosis of liver not due to alcohol (HCC) Cirrhosis of liver without mention of alcohol 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 thrombocytopenia Thrombocytopenia (HCC) Thrombocytopenia, unspecified Diabetic gastroparesis (HCC) (HCC) Type II or unspecified type diabetes mellitus with neurological manifestations, not stated as uncontrolled documented in this encounter [facility] note* Diagnosis SAMUEL (generalized anxiety disorder) (CMS/HCC) Generalized anxiety disorder Type 2 diabetes mellitus with hyperglycemia, with long-term current use of insulin ([facility]) [facility]* Diagnosis Type 2 diabetes mellitus with hyperglycemia, with long-term current use of insulin ([facility])- Primary Insulin long-term use ([facility]) Encounter for long-term (current) use of insulin Vitamin D deficiency Encounter for dietary consultation High risk medication use Primary hypertension ([facility]) Unspecified essential hypertension Hypoglycemia Hypoglycemia, unspecified Class 2 severe obesity due to excess calories with serious comorbidity and body mass index (BMI) of 35.0 to 35.9 in adult ([facility]) Microalbuminuria Proteinuria 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[facility]) Chronic lymphocytic thyroiditis [facility]* Diagnosis SAMUEL (generalized anxiety disorder) ([facility]) Generalized anxiety disorder [facility]* Diagnosis Thrombocytopenia ([facility])- Primary Thrombocytopenia, unspecified [facility] Diagnosis SAMUEL (generalized anxiety disorder) ([facility]) Generalized anxiety disorder [facility]* Diagnosis Essential tremor- Primary Cognitive dysfunction Unspecified persistent mental disorders due to conditions classified elsewhere Anxiety Anxiety state, unspecified Imbalance Abnormality of gait Muscle cramping CASSIE (obstructive sleep apnea) Obstructive sleep apnea (adult) (pediatric) documented [facility]* Diagnosis SAMUEL (generalized anxiety disorder) ([facility]) Generalized anxiety disorder documented in this encounter [...] Other screening mammogram documented in this encounter [facility]* Diagnosis SAMUEL (generalized anxiety disorder) ([facility]/HCC) Generalized anxiety disorder documented in this encounter [facility]* Diagnosis Cirrhosis of liver not due to alcohol (HCC)- Primary Cirrhosis of liver without mention of alcohol Biliary cirrhosis (HCC) Biliary cirrhosis MENDEZ (nonalcoholic steatohepatitis) Other chronic nonalcoholic liver disease 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 thrombocytopenia [facility]* Diagnosis Type 2 diabetes mellitus with hyperglycemia, with long-term current use of insulin (CMS/HCC)- Primary Insulin long-term use ([facility]/HCC) Encounter for long-term (current) use of insulin Vitamin D deficiency Encounter for dietary consultation High risk medication use Primary hypertension ([facility]/HCC) Unspecified essential hypertension Hypoglycemia Hypoglycemia, unspecified Microalbuminuria Proteinuria 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[facility]/HCC) Chronic lymphocytic thyroiditis Class 1 obesity due to excess calories with serious comorbidity and body mass index (BMI) of 32.0 to 32.9 in adult documented in this encounter [facility]* Diagnosis CASSIE (obstructive sleep apnea)- Primary Obstructive sleep apnea (adult) (pediatric) Insomnia, unspecified type documented in this encounter [facility] HealthcareEvaluation noteNo assessment information availableAvita Health System Ctr Work Phone: Evaluation note* Diagnosis LGSIL of cervix of undetermined 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 Surgery follow-up documented in this encounter [facility] note* Diagnosis Nonintractable episodic headache, unspecified headache type- Primary Essential tremor Cognitive dysfunction Unspecified persistent mental disorders due to conditions classified elsewhere Anxiety Anxiety state, unspecified CASSIE (obstructive sleep apnea) Obstructive sleep apnea (adult) (pediatric) Imbalance Abnormality of gait documented in this encounter [facility] note* Diagnosis Insulin long-term use ([facility]/HCC)- Primary Encounter for long-term (current) use of insulin Type 2 diabetes mellitus with hyperglycemia, unspecified whether custodial insulin use ([facility]) Vitamin D deficiency Encounter for dietary consultation High risk medication use Primary hypertension (CMS/HCC) Unspecified essential hypertension Hypoglycemia Hypoglycemia, unspecified Microalbuminuria Proteinuria Acquired hypothyroidism ([facility]) Unspecified hypothyroidism documented in this encounter [facility] Narrative - Reported* Type Description Date Surgical History tonsillectomy and adenoidectomy Surgical History C section Surgical History tubal ligation Surgical History cholecystectomy Hospitalization History SEE [facility] Discharge instructions No data available for this section [facility] Progress note No data available for this section [facility] reason for referral (narrative)* Diagnostic Procedure Only (Routine) - Pending Review Specialty Diagnoses / Procedures Referred By Mony hinojosa Referred To Contact US IMAGING Diagnoses 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) MENDEZ (nonalcoholic steatohepatitis) Procedures US ABD RT UPPER QUADRANT US ABDOMINAL REAL TIME W/IMAGE LIMITED Andre Funes MD [address] [place] [address] [place] [address] Us Imaging Referral ID Status Reason Start Date Expiration Date Visits Requested Visits Authorized [id number] Pending Review Auto-Generat ed Referral 06/19/2022 01/16/2023 1 1 [facility] for referral (narrative)* Diagnostic Procedure Only (Routine) - Pending Review Specialty Diagnoses / Procedures Referred By Mony hinojosa Referred To Contact US IMAGING Diagnoses 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 Procedures US DOPPLER COMPLETE DUP-SCAN ARTL PATRICK ABDL/PEL/SCROT&/RPR ORGN [facility] Andre Funes MD [address] [place] [address] [place] [address] Us Imaging Referral ID Status Reason Start Date Expiration Date Visits Requested Visits Authorized [id number] Pending Review Auto-Generat ed Referral 06/25/2023 07/25/2023 1 1 * Diagnostic Procedure Only (Routine) - Pending Review Specialty Diagnoses / Procedures Referred By Contac t Referred To Contact US IMAGING Diagnoses 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 Procedures US ABD LIVER VASCULAR US ABDOMINAL REAL TIME W/IMAGE LIMITED DUP-SCAN ARTL PATRICK ABDL/PEL/SCROT&/RPR ORGN COM Andre Funes MD [address] [place] [address] [place] [address] Us Imaging Referral ID Status Reason Start Date Expiration Date Visits Requested Visits Authorized [id number] Pending Review Auto-Generat ed Referral 06/25/2023 07/25/[address] [facility] for referral (narrative)* Diagnostic Procedure Only (Routine) - Pending Review Specialty Diagnoses / Procedures Referred By Mony hinojosa Referred To Contact US IMAGING Diagnoses MENDEZ (nonalcoholic steatohepatitis) 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 Procedures US ABD RIGHT UPPER QUADRANT US ABDOMINAL REAL TIME W/IMAGE LIMITED Andre Funes MD [address] [facility] [place] [address] [place] [address] Referral ID Status Reason Start Date Expiration Date Visits Requested Visits Authorized [id number] Pending Review Auto-Generat ed Referral 06/23/2023 07/22/[address] [facility] for referral (narrative)* Diagnostic Procedure Only (Routine) - New Request Specialty Diagnoses / Procedures Referred By Mony hinojosa Referred To Contact US IMAGING Diagnoses Thrombocytopenia (HCC) Procedures US ABD SPLEEN US ABDOMINAL REAL TIME W/IMAGE LIMITED Andre Funes MD [address] [place] [address] [place] [address] Referral ID Status Reason Start Date Expiration Date Visits Requested Visits Authorized [id number] New Request Auto-Generat ed Referral 04/26/2024 05/26/[address] [facility] for referral (narrative)* Diagnostic Procedure Only (Routine) - New Request Specialty Diagnoses / Procedures Referred By Contac t Referred To Contact US IMAGING Diagnoses Biliary cirrhosis (HCC) MENDEZ (nonalcoholic steatohepatitis) 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 Procedures US ABD RIGHT UPPER QUADRANT US ABDOMINAL REAL TIME W/IMAGE LIMITED Andre Funes MD [address] [place] [address] [place] [address] [place] [id number] Referral ID Status Reason Start Date Expiration Date Visits Requested Visits Authorized [id number] New Request Auto-Generat ed Referral 06/28/2024 07/28/[address] [facility] for visit NarrativePT HERE AT REQ OF SHAKIRA HIGGINS FOR GERD, (REFERRAL NOTE RECEIVED)[facility] Other Summary Purpose Family History No Family [...] and content) DATE CREATED AUTHOR 06/16/2019 [facility] DATE CREATED AUTHOR AUTHOR'S ORGANIZ ATION 06/03/2021 [facility] DATE CREATED AUTHOR AUTHOR'S ORGANIZ ATION 03/01/2022 [facility] [employer] [facility] DATE CREATED AUTHOR AUTHOR'S ORGANIZ ATION 10/29/2022 [facility] DATE CREATED AUTHOR AUTHOR'S ORGANIZ ATION 07/01/2024 [facility] DATE CREATED AUTHOR AUTHOR'S ORGANIZ ATION 08/27/2024 [facility] DATE CREATED AUTHOR AUTHOR'S ORGANIZ ATION 09/04/2024 [facility] DATE CREATED AUTHOR AUTHOR'S ORGANIZ ATION 10/21/2024 [facility] DATE CREATED AUTHOR AUTHOR'S ORGANIZ ATION 11/01/2024 [facility] [employer] Comments (unrecognize d section and content) In the event this informatio n is protected by the Federal Confidentiality of Alcohol and Drug Abuse Patient Records regulations: The Federal rules restrict any use of the information to criminally investigate or prosecute any alcohol or drug abuse patient.[facility] the event this information is protected by the Federal Confidentiality of Alcohol and Drug Abuse Patient Records regulations: The Federal rules restrict any use of the information to criminally investigate or prosecute any alcohol or drug abuse patient.[facility] the event this information is protected by the Federal Confidentiality of Alcohol and Drug Abuse Patient Records regulations: The Federal rules restrict any use of the information to criminally investigate or prosecute any alcohol or drug abuse patient.[facility] the event this information is protected by the Federal Confidentiality of Alcohol and Drug Abuse Patient Records regulations: The Federal rules restrict any use of the information to criminally investigate or prosecute any alcohol or drug abuse patient.[facility] the event this information is protected by the Federal Confidentiality of Alcohol and Drug Abuse Patient Records regulations: The Federal rules restrict any use of the information to criminally investigate or prosecute any alcohol or drug abuse patient.[facility] the event this information is protected by the Federal Confidentiality of Alcohol and Drug Abuse Patient Records regulations: The Federal rules restrict any use of the information to criminally investigate or prosecute any alcohol or drug abuse patient.[facility] the event this information is protected by the Federal Confidentiality of Alcohol and Drug Abuse Patient Records regulations: The Federal rules restrict any use of the information to criminally investigate or prosecute any alcohol or drug abuse patient.[facility] [place] Reason for Visit (unrecogniz ed section and [...] Care Teams (unrecognized sec tion and content) Casting Trucker Relationship Specialty Start Date End Date Shakira Higgins, GENERAL SUPERINTENDENT [address] [place] [address] PCP - General Internal Medicine 08/01/20 Casting Trucker Relationship Specialty Start Date End Date Shakira Higgins CNP [address] [place] [address] PCP - General Internal Medicine 08/01/20 Casting Trucker Relationship Specialty Start Date End Date Benjamin Del Toro MD [address] [place] [address] PCP - General Family Medicine 05/18/23 Tj Dutton MD [address] [place] [address] Obstetrics and Gynecology 05/18/23 Casting Trucker Relationship Specialty Start Date End Date Benjamin Del Toro MD [address] [place] [address] PCP - General Family Medicine 05/18/23 Tj Dutton MD [address] [place] [address] Obstetrics and Gynecology 05/18/23 Casting Trucker Relationship Specialty Start Date End Date Benjamin Del Toro MD [address] [facility] [address] PCP - General Family Medicine 05/18/23 Tj Dutton MD [address] [place] [address] Obstetrics and Gynecology 05/18/23 Casting Trucker Relationship Specialty Start Date End Date Benjamin Del Toro MD [address] [facility] [address] PCP - General Family Medicine 05/18/23 Tj Dutton MD [address] [place] [address] Obstetrics and Gynecology 05/18/23 Casting Trucker Relationship Specialty Start Date End Date Benjamin Del Toro MD [address] [facility] [address] PCP - General Family Medicine 05/18/23 Tj Dutton MD [address] [place] [address] Obstetrics and Gynecology 05/18/23 Casting Trucker Relationship Specialty Start Date End Date Shakira Higgins CNP [address] [facility] [place] [address] PCP - General Internal Medicine 08/01/20 Casting Trucker Relationship Specialty Start Date End Date Shakira Higgins CNP [address] [facility] [place] [address] PCP - General Internal Medicine 08/01/20 Casting Trucker Relationship Specialty Start Date End Date Benjamin Del Toro MD [address] [place] [address] PCP - General Family Medicine 05/18/23 Tj Dutton MD [address] [place] [address] Obstetrics and Gynecology 05/18/23 Casting Trucker Relationship Specialty Start Date End Date Benjamin Del Toro MD [address] [place] [address] PCP - General Family Medicine 05/18/23 Tj Dutton MD [address] [place] [address] Obstetrics and Gynecology 05/18/23 Casting Trucker Relationship Specialty Start Date End Date Benjamin Del Toro MD [address] [place] [address] PCP - General Family Medicine 05/18/23 Tj Dutton MD [address] [facility] [address] [place] [address] Obstetrics and Gynecology 05/18/23 Casting Trucker Relationship Specialty Start Date End Date Benjamin Del Toro MD [address] [place] [address] PCP - General Family Medicine 05/18/23 Tj Dutton MD [address] [place] [address] Obstetrics and Gynecology 05/18/23 Casting Trucker Relationship Specialty Start Date End Date Benjamin Del Toro MD [address] [place] [address] PCP - General Family Medicine 05/18/23 Tj Dutton MD [address] [place] [address] Obstetrics and Gynecology 05/18/23 Casting Trucker Relationship Specialty Start Date End Date Benjamin Del Toro MD [address] [place] [address] PCP - General Family Medicine 05/18/23 Tj Dutton MD [address] [place] [address] Obstetrics and Gynecology 05/18/23 Casting Trucker Relationship Specialty Start Date End Date Benjamin Del Toro MD [address] [place] [address] PCP - General Family Medicine 05/18/23 Tj Dutton MD [address] [facility] [address] [address] Obstetrics and Gynecology 05/18/23 Casting Trucker Relationship Specialty Start Date End Date Benjamin Del Toro MD [address] [place] [address] PCP - General Family Medicine 05/18/23 Tj Dutton MD [address] [facility] [address] [place] [address] Obstetrics and Gynecology 05/18/23 Casting Trucker Relationship Specialty Start Date End Date Benjamin Del Toro MD [address] [place] [address] PCP - General Family Medicine 05/18/23 Tj Dutton MD [address] [place] [address] Obstetrics and Gynecology 05/18/23 Casting Trucker Relationship Specialty Start Date End Date Benjamin Del Toro MD [address] [place] [address] PCP - General Family Medicine 05/18/23 Tj Dutton MD [address] [place] [address] Obstetrics and Gynecology 05/18/23 Jasmine Urban LISW-S [address] [place] [address] [facility] 05/30/24 Casting Trucker Relationship Specialty Start Date End Date Shakira Higgins CNP [address] [place] [address] PCP - General Internal Medicine 08/01/20 Casting Trucker Relationship Specialty Start Date End Date Benjamin Del Toro MD [address] [place] [address] PCP - General Family Medicine 05/18/23 Tj Dutton MD [address] [place] [address] Obstetrics and Gynecology 05/18/23 Jasmine Urban LISW-S [address] [place] [address] [facility] 05/30/24 Casting Trucker Relationship Specialty Start Date End Date Benjamin Del Toro MD [address] [place] [address] PCP - General Family Medicine 05/18/23 Tj Dutton MD [address] [place] [address] Obstetrics and Gynecology 05/18/23 Jasmine Urban LISW-S [address] [place] [address] [facility] 05/30/24 Casting Trucker Relationship Specialty Start Date End Date Benjamin Del Toro MD [address] [facility] [address] PCP - General Family Medicine 05/18/23 Tj Dutton MD [address] [place] [address] Obstetrics and Gynecology 05/18/23 Jasmine Urban LISW-S [address] [place] [address] [facility] 05/30/24 Casting Trucker Relationship Specialty Start Date End Date Benjamin Del Toro MD [address] [facility] [address] PCP - General Family Medicine 05/18/23 Tj Dutton MD [address] [place] [address] Obstetrics and Gynecology 05/18/23 Jasmine Urban LIS[facility] [address] [place] [address] [facility] 05/30/24 Team Status: Inactive Member Role Status Dates Tj Dutton MD Attending Provider Active Star t: August 16, 2024 End: August 16, 2024 Casting Trucker Relationship Specialty Start Date End Date Benjamin Del Toro MD [address] [place] [address] PCP - General Family Medicine 05/18/23 Tj Dutton MD [address] [place] [address] Obstetrics and Gynecology 05/18/23 Jasmine Urban LISW-S [address] [place] [address] [facility] 05/30/24 Casting Trucker Relationship Specialty Start Date End Date Benjamin Del Toro MD [address] [place] [address] PCP - General Family Medicine 05/18/23 Tj Dutton MD [address] [place] [address] Obstetrics and Gynecology 05/18/23 Jasmine Urban LISW-S [address] [place] [address] [facility] 05/30/24 Casting Trucker Relationship Specialty Start Date End Date Benjamin Del Toro MD [address] [place] [address] PCP - General Family Medicine 05/18/23 Tj Dutton MD [address] [place] [address] Obstetrics and Gynecology 05/18/23 Jasmine Urban LISW-S [address] [place] [address] [facility] 05/30/24 Casting Trucker Relationship Specialty Start Date End Date Benjamin Del Toro MD [address] [place] [address] PCP - General Family Medicine 05/18/23 Tj Dutton MD [address] [place] [address] Obstetrics and Gynecology 05/18/23 Jasmine Urban LIS[facility] [address] [place] [address] [facility] 05/30/24 Casting Trucker Relationship Specialty Start Date End Date Benjamin Del Toro MD PCP - General Family Medicine 05/18/23 Tj Dutton MD [address] [place] [address] Obstetrics and Gynecology 05/18/23 Jasmine Urban LISW-S [address] [place] [address] [facility] 05/30/24 Casting Trucker Relationship Specialty Start Date End Date Benjamin Del Toro MD PCP - General Family Medicine 05/18/23 Tj Dutton MD [address] [place] [address] Obstetrics and Gynecology 05/18/23 Jasmine Urban LISW-S [address] [place] [address] [facility] 05/30/24 Casting Trucker Relationship Specialty Start Date End Date Benjamin Del Toro MD PCP - General Family Medicine 05/18/23 Tj Dutton MD [address] [place] [address] Obstetrics and Gynecology 05/18/23 Jasmine Urban LISW-S [address] [place] [address] [facility] 05/30/24 Goals (unrecognized section and content) Goals [...] BE BASED ON THE PRIMARY CLINICAL RECORDS. [facility] [employer] [facility]. provides no warranty or guarantee of the accuracy or completeness of information in this document.
[2025-02-28 09:58] LABS: Alanine Aminotransferase 29 U/L (14-59); Albumin Globulin Ratio 0.9; Albumin Level 3.7 g/dL (3.4-5.0); Alkaline Phosphatase 75 U/L (46-116); Anion Gap 12.1; Aspartate Amino Transferase 22 U/L (15-37); Blood Urea Nitrogen 13.0 mg/dL (7.0-18.0); Calcium 8.5 mg/dL (8.5-10.1); Carbon Dioxide 28.7 mmol/L (21.0-32.0); Chloride 104 mmol/L (98-107); Cholesterol 191 mg/dL (<=200); Estimated GFR (African America >60 (>=60 mL/min/1.73m^2); Estimated GFR (Non-African Ame >60 (>=60 mL/min/1.73m^2); Globulin 4.1 g/dL; Glucose 175 mg/dL (74-106); HDL Cholesterol 52 mg/dL (40-60); Potassium 3.8 mmol/L (3.5-5.1); Sodium 141 mmol/L (136-145); Total Protein 7.8 g/dL (6.4-8.2); Triglycerides 158 mg/dL (<=150); VLDL CHOLESTEROL 31.6 mg/dL
[2025-02-28 10:00] LABS: Iron 33.0 ug/dL (50.0-170.0)
[2025-02-28 10:23] LABS: Hematocrit 39.8 % (36.0-48.0); Hemoglobin 12.8 g/dL (12.0-16.0); Immature Granulocytes Abs Auto 0.03 10^3/uL (0.00-0.03); Immature Granulocytes Pct Auto 0.4 % (0.0-0.5); Lymphocytes Absolute Auto 1.4 10^3/uL (1.2-3.8); Mean Corpuscular HGB Conc 32.2 g/dL (29.9-35.2); Mean Corpuscular Hemoglobin 26.0 pg (26.7-34.0); Mean Corpuscular Volume 80.9 fL (81.0-99.0); Platelet Count 143 10^3/uL (150-450); Red Blood Count 4.92 10^6/uL (4.20-5.40); White Blood Count 7.3 10^3/uL (4.0-11.0)
== END 2025-02-28 08:53 | disposition home or self-care (01) ==
LOC: LAB 08:54
PROVIDERS: PCP Nurse Practitioner Family; Visit Provider Nurse Practitioner Family
DX: K74.60 Unspecified cirrhosis of liver (principal); E03.9 Hypothyroidism, unspecified; E78.5 Hyperlipidemia, unspecified; R73.09 Other abnormal glucose; R53.83 Other fatigue; E55.9 Vitamin D deficiency, unspecified
CPT/HCPCS: 36415; 80053; 80061; 82306; 83036; 83525; 83540; 84436; 84439; 84443; 84481; 85025

== ENCOUNTER 2025-02-28 09:00 | Outpatient (OUT) | payer MEDICARE, SELFPAY ==
--- OUTSIDE RECORDS SUMMARY | 2025-02-28 09:10 | XMS_ITS | CCD ---
Author Organization [facility] CliniSyaz Care Team Providers Care Supervisor Customer Records Division Name Role Phone Shakira Higgins S Primary Care Provider DR JENNIFER TURNER Consulting Unavailable YUE, DR RODRIGUEZ Attending Unavailable MISC, DR VAZQUEZ Primary Care Unavailable YUE, DR RODRIGUEZ Admitting Unavailable Keysha Naidu Consulting Unavaila marie Higgins CNP, Shakira S Primary Care Provider PROVIDER, UNKNOWN Attending Unavailable PROVIDER, UNKNOWN Admitting Unavailable Rodger Davila Unavailable [phone] Ronaldo MOORE, Shakira S Primary Care [...] Benjamin Del Toro MD Primary Care Provider [phone] Tj Dutton MD Unavailable [phone] Ronaldo MOORE, Shakira S Primary Care Provider [phone] Jasmine Velasquez Unavailable ABHYANKAR, ANDRE Referring Unavailable ABHYANKAR, ANDRE Attending Unavailable RONALDO, SHAKIRA S Primary Care Unavailable ABHYANKAR, ANDRE Referring Unavailable RONALDO, SHAKIRA S Primary Care Unavailable Tj Dutton MD Attending Provider Tj Dutton Admitting Unavailable Tj Dutton Attending Unavailable Ronaldo, Shakira Tatum Primary Care Unavailable ISSA BURGER Attending Unavailable Jasmine Velasquez Unavailable [phone] OSMAN WILKINS Attending Unavailab OSMAN Gonzalez Attending Unavailab OSMAN Gonzalez Attending Unavailab OSMAN Gonzalez Attending Unavailab OSMAN Gonzalez Attending Unavailab OSMAN Gonzalez Attending Unavailab OSMAN Gonzalez Attending Unavailab OSMAN Gonzalez Attending Unavailab OSMAN Gonzalez Attending Unavailab OSMAN Gonzalez Attending Unavailab OSMAN Gonzalez Attending Unavailab OSMAN Gonzalez E Attending Unavailab Benjamin Lucio MD Primary Care Provider [phone] JASMINE URBAN Attending Unavailable KUSHALZE MCKINNON F [...] [capsaicin topical] Drug Allergy [facility] (5 sources) Capsaicin; Translations: [CAPSAICIN] Drug Allergy 4 [facility] Repository (5 sources) Capsaicin Drug Allergy Unknown [employer] Other (11 sources) Capsaicin / Turpentine; Translations: [capsaicin topical] Drug Allergy [facility] (20 sources) Capsaicin Drug Allergy 4 [facility] [employer] (20 sources) traMADol; Translations: [TRAMADOL] Drug Allergy 4 [facility] (3 sources) traZODone; Translations: [trazodone] Drug Allergy 4 Itching [facility] (1 source) Capsaicin Drug Allergy 4 [facility] Repository (1 source) No Known Medication Allergies; Translations: [No Known Medication Allergies] Propensity to adverse reactions (disorder) [facility] Repository Medications Current Medications Medication Drug [...] Refill(s) 0 Start Date: 03/13/20 Status: Ordered [id number] 200 actuat albuterol 0.09 mg/actuat metered dose [...] colonoscopy, # 4 tab(s), Refills(s) 0, Pharmacy: [facility]/pharmacy #[id number], 157.5, cm, 03/18/20 13:44:00 EDT, [...] (20 sources) Corticosteroid, beta2-Adrenergic Agonist Start: 07-19-2023 Ewmkzfzuhy-Xtgdekcn-Bevnkpos ol (Breztri Aerosphere) 160-9-4.8 mcg/actuation HFA aerosol [...] od Gluc Sensor (FreeStyle Jeanne 2 Sensor) [facility] USE DIRECTED 05/14/2023 Active cyanocobalamin, vitamin B-12 [...] above: Take 1,000 mcg by [facility] once daily. cycloSPORINE 0.5 mg/ml [...] completed) Start: 02-14-2024 take 1 capsule by [facility] once at bedtime doxepin (SINEquan) [...] (FLONASE) 50 mcg/actuation nasal spray Use 1 Scott in each nostril as needed. Active Comment on above: Use 1 Scott in each nostril as needed. 30 actuat [...] Start: 03-13-2020 take 25 mg rectal ro [place] twice daily Anusol-HC 25 mg rectal suppository [...] 2 diabetes mellitus with hyperglycemia, unspecified whether long term care administrator insulin use (CMS/HCC) , Type 2 diabetes [...] Daily, # 30 tab(s), Refills(s) , Pharmacy: [facility]/pharmacy #[id number], 152, cm, 10/19/24 11:54:00 EDT, Height/Length Dosing, 85, kg, 10/19/24 11:54:00 EDT, Weight Dosing Start Date: 10/19/24 Status: Ordered Quantity: 30.0 Unit: tab(s) Repeat number: 12 Start: 06-08-2024 take 1 tablet by jono th once daily Myrbetriq 50 mg oral tablet, extended release 50 mg = 1 tab(s), Oral, Daily, # 30 tab(s), Refills(s) 11, Pharmacy: [facility]/pharmacy #[id number], 152, cm, 06/08/24 12:12:00 EST, Height/Length [...] Polyene Antifungal Start: 09-27-19 25 nystatin (Mycostatin) 320118 UNIT/GM powder Indications: Postmenopausal atrophic vaginitis APPLY TO AFFECTED AREA TWICE A DAY 60 g 3 09/26/2024 Active Start: 07-28-2023 End: 04-09-2024 nystatin (Mycostatin) 618939 UNIT/GM powder Indications: Postmenopausal atrophic vaginitis APPLY TO AFFECTED AREA TWICE A DAY 60 g 3 04/09/2024 Active Start: 07-19-2023 Nystatin 100,0 00 unit/gram powder Active 1 APPLIC TOPICAL Twice daily July 19, 2023 1:00am Nystatin 511435 UNIT/GM 1 application Externally Twice a day Active Nystatin 921011 UNIT/GM 1 application Externally Twice a day [...] Start: 10-10-2023 take 2 tablets by mo [facility] twice daily primidone (Mysoline) 50 MG tablet [...] by mouth Daily Active 60 actuat tiotropium 0.54868 mg/actuat inhalation spray (19 sources) Anticholinergic Start: [...] Start: 03-13-2020 take 1 capsule by mo [facility] once daily venlafaxine XR (Effexor XR) 150 [...] Start Date: 03/13/20 Status: Ordered vitamin a 08563 unt oral capsule (20 sources) Vitamin A take 3 mg by mouth once daily beta carotene (vitamin A) 3 MG (88652 UT) capsule Take 10,000 Units by mouth Daily Active take 3 mg by mouth in the mornin g beta carotene (vitamin A) 3 MG (04859 UT) capsule Take 10,000 Units by mouth [...] unspecified] 03-05-2024 Chronic Other aftercare (2 sources) [facility]entiary (current) use of insulin; Translations: [RETIREMENT CURRENT USE OF INSULIN] Onset: 1 Episodic Other aftercare (2 sources) Other penitentiary (current) drug therapy; Translations: [OTH PURCHASING CONTRACTING CLERK CURRENT DRUG THERAPY] Onset: 1 Episodic Other aftercare (1 source) penitentiary (current) use of oral hypoglycemic drugs; Translations: [PURCHASING CONTRACTING CLERK USE ORAL HYPOGLYCEMIC DX] Onset: 3 Episodic Other aftercare (6 sources) Long-term current use of insulin; Translations: [penitentiary (current) use of insulin] 03-05-2024 Episodic Other aftercare (6 sources) Taking high risk medication; Translations: [Other long term care administrator (current) drug therapy] 03-05-2024 Episodic Other aftercare [...] (BMI) of 35.0 to 35.9 in adult (CMS/[facility])] 03-05-2024 Chronic Other nutritional; endocrine; and [...] Glucose Blood, POC 360 mg/dL [facility] - Hematology and Cell countson 10-30-2024 HbA1c (Bld) [Mass fraction] 7.5 % [facility] No Panel Informationon 10-30 [facility] MM TOMOSYNTHESIS SCREENING B Ion 10-25-2024 [place] [address] Mammography Report Signed Patient: RENETTA BARBOSA MR#: [id number] : 1960 Acct:[id number] Age/Sex: 64 / F ADM Date: 10/24/24 Loc: MAMMO Attending Dr: TJ DUTTON Ordering Physician: TJ DUTTON Results: Date of Service: 10/24/24 Follow Up: Procedure(s): MM tomosynthesis screening BI Accession Number(s): [id number] cc: SHAKIRA HIGGINS ; TJ DUTTON Patient Name: RENETTA BARBOSA MR#: [id number] : 1960 Exam Date: 10/24/2024 Ordering Doctor: [...] breast cancer at age 80. LOCATION: [facility] BREAST COMPOSITION: There are scattered areas of [...] on 10/25/2024 at 10:03 Approved by: Olu aBrton MD on 10/25/2024 at 10:06 Dictated By: Olu Barton M.D. Signed By: 10/25/24 1007 DD/ 1006 TD/TT: [facility] Examiner: [facility] Radiology, Radiologist, - 10/25/2024 [place] [address] Mammography Report Signed Patient: RENETTA BARBOSA MR#: [id number] : 1960 Acct:[id number] Age/Sex: 64 / F ADM Date: 10/24/24 Loc: MAMMO Attending Dr: TJ DUTTON Ordering Physician: TJ DUTTON Results: Date of Service: 10/24/24 Follow Up: Procedure(s): MM tomosynthesis screening BI Accession Number(s): [id number] cc: SHAKIRA HIGGINS ; TJ DUTTON Patient Name: RENETTA BARBOSA MR#: [id number] : 1960 Exam Date: 10/24/2024 Ordering Doctor: [...] breast cancer at age 80. LOCATION: [facility] BREAST COMPOSITION: There are scattered areas of [...] Signed By: 10/25/24 1007 DD/ 1006 TD/TT: [facility]one Examiner: [facility] [employer] Radiology Study observation (narrative) [facility] [employer] MM TOMOSYNTHESIS SCREENING B IOrdered By: Radiologist Radiology on 10-25-2024 [facility] [employer] Work Phone: Ambulatory Visit Summaryon 0 10-19-2024 [...] NGA WILKINS PA-C Where: [facility] [id number]- Medications What How Much When Instructions Unchanged [...] GERD (gas (more content not included)... Normal [facility] Urology Office/Clinic Noteon 10-19-2024 Urology Office/Clinic [...] E&M of Est. Patient Low 20-29 Min 97883 2. Stress incontinence (N39.3: Stress incontinence (female) (male)) Only w full bladder. Not bothersome. Discussed continued home PFPT. Ordered: E&M of Est. Patient Low 20-29 Min 50370 Urnls Dip Stick Auto w/o Microscopy POC 51995 Orders: mirabegron, 50 mg = 1 tab(s), Oral, Daily, # 30 tab(s), Refills(s) , Pharmacy: [facility]/pharmacy #[id number], 152, cm, 10/19/24 11:54:00 EDT, Height/Length Dosing, 85, kg, 10/19/24 11:54:00 EDT, Weight Dosing Follow-up With When Contact Information JUANITO BREWER, NGA Freedman, URL In 1 year [address] [facility] [place] [address] Additional Instructions: Patient Education Overactive [...] q8hr Trulicity (more content not included)... Normal [facility] Comment on above: Result Comment: Elec tronically Signed By: NGA WILKINS PA-C\.br\Date and Time Signed: 10/19/24 12:18 EDT Office Visiton 09-03-2024 Follow-up visit [id number] Renetta Barbosa 1960 F Date Provider Department Center 09/03/2024 [id number] BURGER Family History Problem Relation Age of Onset Diabetes Mother Coronary artery disease Mother Lung cancer Father Breast cancer Maternal Grandmother Family Status - Relation Status Age at Mother Alive Father Maternal Grandmother Level of Service:26374 [place] OFFICE/OUTPATIENT ESTABLISHED LOW MDM 20 MIN Reason for Visit and Comments: 1 year follow up [Other] Hyperlipidemia [182] Hypertension [174434] Normal [facility] Steve 08-16-2024 L -- ---- Specimen: [id number] Received: 08/16/24 Status: VIK Olson Num: [id number] Spec Type: Surgical Subm Dr: TJ DUTTON MD Tissues: A Cervical Biopsy/Leep Biopsy (CERVICAL LEEP) B Endocervix - Curettings (ECC) Procedures: Brunilda EASTMAN/Ted L4/2 ---- Age/ Patient Sex Location Account Attending Physician ---- Renetta Barbosa 64/F [place] [id number] TJ DUTTON MD ---- SPEC NUM: [id number] RECD: 08/16/24 STATUS: VIK OLSON NUM: [id number] PANCHITO: 08/16/24-0000 [facility] DR: TJ DUTTON MD ENTERED: 08/16/[address] [facility] [address]: SPEC TYPE: Surgical DEPT: S ENTERED BY: [id number] [facility] BY: [id number] ORDERED: HE/4, Gross/Micro L4/2 ORDERED: HE/4, Gross/Micro [...] submitted in a single cassette. (1, ns, [id number] A) Part B is received in formalin labeled with the patients name, date of , and ---- Specimen: [id number] Received: 08/16/24 Status: VIK Aliceacecile Num: [id number] Spec Type: Surgical Subm Dr: TJ DUTTON MD Tissues: A Cervical Biopsy/Leep Biopsy (CERVICAL LEEP) B Endocervix - Curettings (ECC) Procedures: HE/4, Gross/Micro L4/2 ---- Patient: Renetta Barbosa [id number] (Continued) ---- Specimen: [id number] Received: 08/16/24 (Continued) Gross Description (Continued) Signed (signature on file) Vic Allison MD 08/17/24 1130 ---- Specimen: [id number] Received: 08/16/24 Status: VIK Olson Num: [id number] Spec Type: Surgical Subm Dr: TJ DUTTON MD Tissues: A Cervical Biopsy/Leep Biopsy (CERVICAL LEEP) B Endocervix - Curettings (ECC) Procedures: QUENTIN/Brunilda Hunter/Ted L4/2 ---- Patient: Renetta Barbosa [id number] (Continued) ---- Specimen: [id number] Received: 08/16/24 (Continued) Gross Description (Continued) endocervical curettage is a Telfa pad with adherent fragments of zuniga-guzman, delicate and feathery tissue, 0.4 x 0.2 x 0.1 cm in aggregate. The specimen is filtered and entirely submitted in a single cassette. (1, ns, B) Microscopic Description A B: Microscopic examination is performed. CPT Codes 80666, 61594 ---- ---- Specimen: [id number] Received: 08/16/24 Status: VIK Olson Num: [id number] Spec Type: Surgical Subm Dr: TJ DUTTON MD Tissues: A Cervical Biopsy/Leep Biopsy (CERVICAL LEEP) B Endocervix - Curettings (ECC) Procedures: HE/4, Gross/Micro L4/2 ---- Patient: Renetta Barbosa [id number] (Continued) ---- Signed (signature on file) Vic Allison MD 08/17/24 1130 Normal [facility] Glucose (Bld) [Mass/Vol]Orde red By: Zakiya Pearl on 07-02-2024 Glucose Blood, POC 192 mg/dL [facility] - Hematology and Cell countson 07-02-2024 HbA1c (Bld) [Mass fraction] 7.7 % [facility] No Panel InformationOrdered By: Zakiya Pearl on 07-02-2024 [facility] AFP SerPl-mCncon 06-28-2024 AFP [Mass/Vol] 1.53 ng/mL Normal <9.00 [facility] Comment on above: Order Comment: Speci men Type: BLOOD SPECIMEN Ordering Facility: [facility] Address: [address] [place] [address] Result Comment: The Alpha-Fetoprotein test was performed using the Nayeli Unicel DxI immunoenzymatic assay. Results obtained with different assay methods or kits cannot be used interchangeably. Performed By: #### 1 834-1 #### [facility] CLIA [id number] [address] [place] [address] [place] CNOVSPon 06-28-2024 CNOVSP Visit (SP) Office ([place]) RENETTA BARBOSA ([id number]) 1960 F Date Time Provider Department 06/28/24 2:20 PM ANDRE FUNES During your visit today, we recorded the following information about you: Temperature Pulse Respiration Blood pressure 97.5 degrees 86/minute 16/minute 143/78 Weight 79.5 kg Andre Funes MD 06/28/2024 3:34 PM Signed NAME: Renetta Barbosa CLINIC NO.: [id number] DATE OF SERVICE: June 28, 2024 ([place]) [...] returns today in follow up. US in [facility] with enlarged nodular liver no masses. [...] relationship daniel (more content not included)... Normal [facility] Urology Office/Clinic Noteon 06-08-2024 Urology Office/Clinic [...] E&M of Est. Patient Moderate 30-39 Min 19779 Urnls Dip Stick Auto w/o Microscopy POC 49973 2. Dry eyes (H04.123: Dry eye syndrome of bilateral lacrimal glands) On Restatsis 3. Dry mouth (R68.2: Dry mouth, unspecified) On Cevimeline Orders: mirabegron, 50 mg = 1 tab(s), Oral, Daily, # 30 tab(s), Refills(s) 11, Pharmacy: [facility]/pharmacy #[id number], 152, cm, 06/08/24 12:12:00 EST, Height/Length Dosing, 86.4, kg, 06/08/24 12:12:00 EST, Weight Dosing Follow-up With When Contact Information JUANITO BREWER, NGA Freedman, URL In 3 months [address] [place] [address] Additional Instructions: Patient Education Overactive [...] Past. Marijuana. (more content not included)... Normal [facility] Comment on above: Result Comment: Elec tronically Signed By: NGA WILKINS PA-C.anamika\Date and Time Signed: 06/08/24 12:35 EST Jacqueline 04-26-2024 CNPN Telephone ([place]) RENETTA BARBOSA ([id number]) 1960 F Date Time Provider Department 04/26/24 LUZ HAMILTON During your visit today, we recorded the following information about you: Luz Hamilton RN 04/26/2024 10:44 AM Signed [facility] needs additional order for US to include the spleen with her abdomen US every 6 months. The other US Abd will not include the spleen. If needed each time, will need 2 orders sent each time. Fax to US directly: [phone] Mio: please review and sign Luz Hamilton RN Allergies As of Date: 04/26/2024 (No Known Allergies) Date Reviewed: 06/23/2023 Reviewed by: Yaritza Amato MA - Fully Assessed Reason for Visit: US spleen order [Other] Primary Visit Diagnosis:Thrombocytop enia (HCC) [D69.6] Order(s):US ABD SPLEEN [5512537] Order #: [id number] STANDING Prescriptions as of 04/26/2024 - BREZTRI [...] (FLONASE) 50 mcg/actuation nasal spray Use 1 Scott in each nostril as needed. - furosemide [...] Encounter Status:Closed by ANDRE FUNES on 04/26/24 [facility] Jacqueline 04-23-2024 CNPN Telephone ([place]) RENETTA BARBOSA ([id number]) 1960 F Date Time Provider Department 04/23/24 [...] (FLONASE) 50 mcg/actuation nasal spray Use 1 Scott in each nostril as needed. - furosemide [...] Status:Closed by LUZ HAMILTON on 04/23/24 Normal [facility] Glucose (Bld) [Mass/Vol]Orde red By: Zakiya Pearl on 03-05-2024 Glucose Blood, POC 187 mg/dL [facility] - Hematology and Cell countson 03-05-2024 HbA1c (Bld) [Mass fraction] 7.4 % [facility] No Panel InformationOrdered By: Zakiya Pearl on 03-05-2024 [facility] Ambulatory Visit Summaryon 1 Ambulatory Visit Summary [...] Duration: 30 Days Refills: 1 Pickup at [facility]/pharmacy #[id number] Unchanged albuterol (Ventolin HFA 90 mcg/ inh [...] venlafaxine ( (more content not included)... Normal [facility] Urology Office/Clinic Noteon 02-29-2024 Urology Office/Clinic [...] E&M of Est. Patient Moderate 30-39 Min 16493 2. Dry eyes (H04.123: Dry eye syndrome of bilateral lacrimal glands) On Restatsis Ordered: E&M of Est. Patient Moderate 30-39 Min 92318 3. Dry mouth (R68.2: Dry mouth, unspecified) On Cevimeline Ordered: E&M of Est. Patient Moderate 30-39 Min 71469 4. Stress incontinence (N39.3: Stress incontinence (female) (male)) < Ordered: E&M of Est. Patient Moderate 30-39 Min 12300 Orders: mirabegron, 25 mg = 1 tab(s), Oral, Daily, X 30 day(s), # 30 tab(s), Refills(s) 1, Pharmacy: [facility]/pharmacy #[id number], 152, cm, 02/29/24 9:28:00 EDT, Height/Length Dosing, 86.4, kg, 02/29/24 9:28:00 EDT, Weight Dosing Body Mass Index (BMI) documented 3008F Current tobacco smoker 1034F Depression Screening Negative 3352F Influenza immunization status assessed 1030F Most recent diastolic blood pressure 80-89 mm Hg 3079F Most recent systolic blood pressure >= 140 mm Hg 3077F Urnls Dip Stick Auto w/o Microscopy POC 49974 Follow-up With When Contact Information JUANITO BREWER, NGA Freedman, JACKL Within 3 months [address] [place] [address] Additional Instructions: Patient Education Overactive Bladder, Adult [...] 2000 intl (more content not included)... Normal [facility] Comment on above: Result Comment: Elec [...] NGA WILKINS PA-C Where: [facility] [address] [place] [address]- You Need to Schedule the Following Appointments Follow Up with JUANITO BREWER, YARA DEL RIO When: Within 3 months Where: [address] [place] [address] Medications What How Much When Instructions Unchanged [...] Unchanged venlafaxi (more content not included)... Normal [facility] Urology Office/Clinic Noteon 01-02-2024 Urology Office/Clinic [...] up to a max of 10 Ordered: 04047 EMG anal/urethral sphincter no needle 48789 Biofeedback training, perineal muscles, anorectal 75846 Anorectal Manometry 41677 ELECTRICAL STIMULATION 04936 Urnls Dip Stick Auto w/o Microscopy POC 94269 Follow-up With When Contact Information JUANITO BREWER, NGA Freedman, YARA Within 3 months [address] [place] [address] Additional Instructions: Patient Education Overactive Bladder, Adult [...] Bedtime Humu (more content not included)... Normal [facility] Comment on above: Result Comment: Elec [...] NGA WILKINS PA-C Where: [facility] Normal [address] [place] [address]- \.br\ You Need to Schedule the Following Appointments\.br\ Follow Up with JUANITO BREWER, YARA DEL RIO When: In 2 weeks\.br\ Where:\.br\ [address]\.br\ [place] [id number]\.br\ \.br\ Medications\.br\ What How Much When Instructions\.br\ [...] provider.\.br\ Document Revised: 09/17/2021 Document Reviewed: 09/17/2021 [employer] Patient Education ? 2022 [employer].br\ \.br\ [facility] Interdisciplinary Note - Soc ial Workeron 12-05-2023 Interdisciplinary Note - Tax Manager Cpa Interdisciplinary Note - Tax Manager Cpa Consult for positive depression screen received. Chart review completed and it was noted that this consult has been received in error as patient's depression screen score was 0. SW will remain available. Normal [facility] Urology Office/Clinic Noteon 12-05-2023 Urology Office/Clinic [...] Urnls Dip Stick Auto w/o Microscopy POC 79675 Follow-up With When Contact Information NGA WILKINS PA-C, URL In 2 weeks [address] [place] [place] [address] Additional Instructions: Patient Education Kegel [...] 1 cap (more content not included)... Normal [facility] Comment on above: Result Comment: Elec [...] NGA WILKINS PA-C Where: [facility] Invalid Interpretation Code [address] [place] [address]- \.br\ Tuesday 11:20 AM EDT \.br\ With: NGA WILKINS PA-C\.br\ Where: [facility] Urology Office/Clinic Noteon 11-28-2023 Urology [...] and discuss other options, try PFPT at [facility] or [facility]. Pt prefers options #1. Follow up 1 week for PFPT #4 or sooner if needed. Pt understands and agrees with plan. Follow-up With When Contact Information JUANITO BREWER, NGA Freedman, URL [address] [place] [address] Additional Instructions: 1 week PFPT #4 Patient [...] Daily Magdaleno (more content not included)... Normal [facility] Comment on above: Result Comment: Elec [...] NGA WILKINS PA-C Where: [facility] Invalid Interpretation Code [address] [place] [address]- \.br\ Tuesday 11:20 AM EDT \.br\ With: NGA WILKINS PA-C\.br\ Where: [facility] Urology Office/Clinic Noteon 11-21-2023 Urology [...] in 1 week(s) for session #3 Ordered: 33482 EMG anal/urethral sphincter no needle 92345 Biofeedback training, perineal muscles, anorectal 41364 Anorectal Manometry 43032 ELECTRICAL STIMULATION 42336 Urnls Dip Stick Auto w/o Microscopy POC 28671 Follow-up With When Contact Information NGA WILKINS PA-C, YARA In 1 week [address] [place] [address] Additional Instructions: Patient Education Overactive [...] Use:. Cigarett (more content not included)... Normal [facility] Comment on above: Result Comment: Elec tronically Signed By: NGA WILKINS PA-C\.br\Date and Time Signed: 11/21/23 12:27 EDT Consent for Procedure/Surger yon 11-15-2023 Consent for Procedure/Surgery [id number]#1.00 TIFF Normal [facility] EMG Electromyographyon 11-14 EMG Electromyography [id number]#1.00 TIFF [facility] Ambulatory Visit Summaryon 0 11-14-2023 Ambulatory Visit [...] NGA WILKINS PA-C Where: [facility] Invalid Interpretation Code [address] [place] [address]- \.br\ Tuesday 11:20 AM EDT \.br\ With: [...] health care provider. General instructions ? Take lkap-wqi-wvsrxre and prescription medicines only as told by [...] monitor yo (more content not included)... Normal [facility] Urology Office/Clinic Noteon 11-14-2023 Urology Office/Clinic [...] in 1 week(s) for session #2 Ordered: 71205 EMG anal/urethral sphincter no needle 16982 Biofeedback training, perineal muscles, anorectal 65950 Anorectal Manometry 25051 ELECTRICAL STIMULATION 22109 Urnls Dip Stick Auto w/o Microscopy POC 72[address] Urnls Dip Stick Auto w/o Microscopy POC 59561 Follow-up With When Contact Information JUANITO BREWER, YARA DEL RIO In 1 week [address] [place] [id number] Additional Instructions: Patient Education Overactive [...] or more (more content not included)... Normal [facility] Comment on above: Result Comment: Elec [...] LEONEL MATA Date: 2022-10-20 08:02 Normal [facility] CBC AUTO DIFFon 10-19-2022 BASO # 0.0 103/ul Normal 0.0-0.1 [facility] Comment on above: Performed By: #### C BC #### [facility] [address] [place] [address] Dr. Blanquita Farris Basophils/100 WBC (Bld) 0.4 % Normal 0.2-2.0 [facility] Comment on above: Performed By: #### C BC #### [facility] [address] [place] [address] Dr. Blanquita Farris EO # 0.1 103/ul Normal 0.0-0.7 [facility] Comment on above: Performed By: #### C BC #### [facility] [address] [place] [address] Dr. Blanquita Farris Eosinophils/100 WBC (Bld) 1.5 % Normal 0.9-7.0 [facility] Comment on above: Performed By: #### C BC #### [facility] [address] [place] [address] Dr. Blanquita Farris Erythrocyte distribution width (RBC) [Ratio] 15.3 % Critically high 11.0-15.0 [facility] Comment on above: Performed By: #### C BC #### [facility] [address] [place] [address] Dr. Blanquita Farris Hematocrit (Bld) [Volume fraction] 42.7 % Normal 36.0-48.0 [facility] Comment on above: Performed By: #### C BC #### [facility] [address] [place] [address] Dr. Blanquita Farris Hemoglobin (Bld) [Mass/Vol] 13.8 g/dL Normal 12.0-16.0 [facility] Comment on above: Performed By: #### C BC #### [facility] [address] [place] [address] Dr. Blanquita Farris IG # 0.04 10e3/ul Critically high 0.00-0.03 [facility] Comment on above: Performed By: #### C BC #### [facility] [address] [place] [address] Dr. Blanquita Farris IG % 0.6 % Critically high 0.0-0.5 [facility] Comment on above: Performed By: #### C BC #### [facility] [address] [place] [address] Dr. Blanquita Farris LYMPH # 1.2 103/ul Normal 1.2-3.8 [facility] Comment on above: Performed By: #### C BC #### [facility] [address] [place] [address] Dr. Blanquita Farris Lymphocytes/100 WBC (Bld) 18.0 % Critically low 20.5-60.0 [facility] Comment on above: Performed By: #### C BC #### [facility] [address] [place] [address] Dr. Blanquita Farris MANUAL DIFF REQ NO Normal [facility] Comment on above: Performed By: #### C BC #### [facility] [address] [place] [address] Dr. Blanquita Farris MCH (RBC) [Entitic mass] 26.8 pg Normal 26.7-34.0 [facility] Comment on above: Performed By: #### C BC #### [facility] [address] [place] [address] Dr. Blanquita Farris MCHC (RBC) [Mass/Vol] 32.3 g/dL Normal 29.9-35.2 [facility] Comment on above: Performed By: #### C BC #### [facility] [address] [place] [address] Dr. Blanquita Farris MCV (RBC) [Entitic vol] 83.1 fL Normal 81.0-99.0 [facility] Comment on above: Performed By: #### C BC #### [facility] [address] [place] [address] Dr. Blanquita Farris MONO # 0.4 103/ul Normal 0.3-0.8 [facility] Comment on above: Performed By: #### C BC #### [facility] [address] [place] [address] Dr. Blanquita Farris Monocytes/100 WBC (Bld) 5.4 % Normal 1.7-12.0 [facility] Comment on above: Performed By: #### C BC #### [facility] [address] [place] [address] Dr. Blanquita Farris NEUT # 5.0 103/ul Normal 1.4-6.5 [facility] Comment on above: Performed By: #### C BC #### [facility] [address] [place] [address] Dr. Blanquita Farris Neutrophils/100 WBC (Bld) 74.1 % Normal 43.0-75.0 [facility] Comment on above: Performed By: #### C BC #### [facility] [address] [place] [address] Dr. Blanquita Farris Platelet mean volume (Bld) [Entitic vol] 10.2 fL Normal 9.5-13.5 [facility] Comment on above: Performed By: #### C BC #### [facility] [address] [place] [address] Dr. Blanquita Farris PLT 180 103/ul Normal 150-450 [facility] Comment on above: Performed By: #### C BC #### [facility] [address] [place] [address] Dr. Blanquita Farris RBC 5.14 106/ul Normal 4.20-5.40 [facility] Comment on above: Performed By: #### C BC #### [facility] [address] [address] [address] Blanquita Farris WBC 6.8 103/ul Normal 4.0-11.0 [facility] Comment on above: Performed By: #### C BC #### [facility] [address] [address] [address] Blanquita Farris CPKon 10-19-2022 CK [Catalytic activity/Vol] 68 U/L Normal 26-192 [facility] Comment on above: Performed By: #### C MP, CK, TSH #### [facility] [address] [address] [address] Blanquita Farris MG MAMM SCREEN 3D SANTIAGO CADon 10-19-2022 MG MAMM SCREEN 3D SANTIAGO CAD Patient: RENETTA BARBOSA Exam Date: 10/19/2022 : 1960 Gender:F Ordering : SHAKIRA HIGGINS [facility] Admission #: [id number] Family : DR TJ DUTTON Order #: [id number] CLICK HERE TO VIEW EXAM RADIOLOGY REPORT [...] breast cancer at age 80. LOCATION: [facility] BREAST COMPOSITION: Scattered areas fibroglandular density. FINDINGS: [...] MD on 10/19/2022 at 13:50 Normal [facility] PROF 14(COMP METB)on 023 Albumin [Mass/Vol] 3.7 g/dL Normal 3.4-5.0 [facility] Comment on above: Performed By: #### C MP, CK, TSH #### [facility] [address] [address] [address] Blanquita Farris Albumin/Globulin [Mass ratio] 0.8 {ratio} Normal [facility] Comment on above: Performed By: #### C MP, CK, TSH #### [facility] [address] [address] [address] Blanquita Farris ALP [Catalytic activity/Vol] 120 U/L Critically high 46-116 [facility] Comment on above: Performed By: #### C MP, CK, TSH #### [facility] [address] [address] [address] Blanquita Farris ALT [Catalytic activity/Vol] 31 U/L Normal 14-59 [facility] Comment on above: Performed By: #### C MP, CK, TSH #### [facility] [address] [address] [address] Blanquita Farris Anion gap [Moles/Vol] 14.2 mmol/L Normal [facility] Comment on above: Performed By: #### C MP, CK, TSH #### [facility] [address] [address] [address] Blanquita Farris AST [Catalytic activity/Vol] 19 U/L Normal 15-37 [facility] Comment on above: Performed By: #### C MP, CK, TSH #### [facility] [address] [address] [address] Blanquita Farris Bilirubin [Mass/Vol] 0.3 mg/dL Normal 0.2-1.0 [facility] Comment on above: Performed By: #### C MP, CK, TSH #### [facility] [address] [address] [address] Blanquita Farris Calcium [Mass/Vol] 9.4 mg/dL Normal 8.5-10.1 [facility] Comment on above: Performed By: #### C MP, CK, TSH #### [facility] [address] [address] [address] Blanquita Farris Chloride [Moles/Vol] 101 mmol/L Normal 98-107 [facility] Comment on above: Performed By: #### C MP, CK, TSH #### [facility] [address] [address] [address] Blanquita Farris CO2 [Moles/Vol] 28.4 mmol/L Normal 21.0-32.0 [facility] Comment on above: Performed By: #### C MP, CK, TSH #### [facility] [address] [address] [address] Blanquita Farris Creatinine [Mass/Vol] 1.04 mg/dL Critically high 0.55-1.02 [facility] Comment on above: Performed By: #### C MP, CK, TSH #### [facility] [address] [place] [address] Dr. Blanquita Farris EGFR-AF EMIRATI >60 Normal >=60 [facility] Comment on above: Performed By: #### C MP, CK, TSH #### [facility] [address] [address] [address] Blanquita Farris EGFR-NON AF EMIRATI 54 mL/min/1.73m2 Critically low >=60 [facility] Comment on above: Performed By: #### C MP, CK, TSH #### [facility] [address] [address] [address] Blanquita Farris Globulin (S) [Mass/Vol] 4.6 g/dL Normal [facility] Comment on above: Performed By: #### C MP, CK, TSH #### [facility] [address] [address] [address] Blanquita Farris Glucose [Mass/Vol] 194 mg/dL Critically high 74-106 T [facility] Comment on above: Performed By: #### C MP, CK, TSH #### [facility] [address] [address] [address] Blanquita Farris Potassium [Moles/Vol] 3.6 mmol/L Normal 3.5-5.1 [facility] Comment on above: Performed By: #### C MP, CK, TSH #### [facility] [address] [place] [address] Dr. Blanquita Farris Protein [Mass/Vol] 8.3 g/dL Critically high 6.4-8.2 [facility] Comment on above: Performed By: #### C MP, CK, TSH #### [facility] [address] [place] [address] Dr. Blanquita Farris Sodium [Moles/Vol] 140 mmol/L Normal 136-145 [facility] Comment on above: Performed By: #### C MP, CK, TSH #### [facility] [address] [place] [address] Dr. Blanquita Farris Urea nitrogen [Mass/Vol] 13.0 mg/dL Normal 7.0-18.0 [facility] Comment on above: Performed By: #### C MP, CK, TSH #### [facility] [address] [place] [address] Dr. Blanquita Farris Urea nitrogen/Creatinine [Mass ratio] 12.5 mg/mg Normal [facility] Comment on above: Performed By: #### C MP, CK, TSH #### [facility] [address] [place] [address] Dr. Blanquita Farris TSHon 10-19-2022 TSH 0.292 uIU/mL Critically low 0.358-3.740 [facility] Comment on above: Performed By: #### C MP, CK, TSH #### [facility] [address] [place] [address] Dr. Blanquita Farris VITAMIN B12on 10-19-2022 Cobalamin (Vitamin B12) [Mass/Vol] 912.0 pg/mL Normal 193.0-986.0 [facility] Comment on above: Performed By: #### V ITB12 #### [facility] [address] [place] [address] Dr. Blanquita Farris US SINGLE QUAD RT [...] KAILEE YANG Date: 2022-06-10 11:46 Normal [facility] US SPLEENon 06-10-2022 US SPLEEN EXAM: US [...] KAILEE YANG Date: 2022-06-10 12:04 Normal [facility] LACTOFERRIN FECAL QUANTon Lactoferrin, Fecal, Quant. 1.96 ug/mL(g) Normal 0.00-7.24 [facility] Comment on above: Result [...] (IBS). Performed By: #### I NSULIN #### [facility] [address] [place], [place] [id number] Dr. Blanquita Farris CALPROTECTIN, FECALon 2021 Calprotectin, Fecal 33 ug/g Normal 0-120 [facility] Comment on above: Result Comment: Conc entration Interpretation Follow-Up <16 - 50 ug/g Normal None >50 -120 ug/g Borderline Re-evaluate in 4-6 weeks >120 ug/g Abnormal Repeat as clinically indicated Performed By: #### C ALPOO #### [facility] [address] [place] [address] Dr. Blanquita Farris PANCREATIC ELASTASE FECALon 03-20-2022 Pancreatic Elastase, Fecal 364 ug Elast./g Normal >200 [facility] Comment on above: Result Comment: Korina re Pancreatic Insufficiency: <100 Moderate Pancreatic Insufficiency: 100 - 200 Normal: >200 Performed By: #### C BC #### [facility] [address] [place] [address] Dr. Blanquita Farris BOWEL DISORDERS EVALUATION R ULE-OUT CASCon 03-18-2022 Atypical pANCA Negative Normal Negative [facility] Comment on above: Performed By: #### C BC #### [facility] [address] [place] [address] Dr. Blanquita Farris Note: Comment Normal [facility] Comment on above: Result Comment: Sugg estive of Crohn's disease. Subsequent testing with the Crohn's Disease Prognostic Profile (576367) that includes antiglycan antibodies AMCA, ALCA, ACCA, and Xochitl may aid in the differentiation of clinical forms of CD and prognosis of disease progression. Performed By: #### C BC #### [facility] [address] [place] [address] Dr. Blanquita Farris Saccharomyces Cer. IgG 28.0 Units Critically high 0.0-24.9 [facility] Comment on above: Result Comment: Nega tive <20.0 Equivocal 20.1 - 24.9 Positive >or= 25.0 Performed By: #### C BC #### [facility] [address] [place] [address] Dr. Blanquita Farris tTG/DGP SCR Negative Normal Negative [facility] Comment on above: Performed By: #### C BC #### [facility] [address] [place] [address] Dr. Blanquita Farris INSULINon 03-16-2022 Insulin 43.0 uIU/mL Critically high 2.6-24.9 [facility] Comment on above: Performed By: #### I NSULIN #### [facility] [address] [place] [address] Dr. Blanquita Farris OCC BLD IMMUNO SCREENon 02-21 OCCULT BLOOD Negative Normal NEGATIVE [facility] Comment on above: Performed By: #### C BC #### [facility] [address] [place] [address] Dr. Blanquita Farris CBC AUTO DIFFon 03-15-2022 BASO # 0.0 103/ul Normal 0.0-0.1 [facility] Comment on above: Performed By: #### C BC #### [facility] [address] [place] [address] Dr. Blanquita Farris Basophils/100 WBC (Bld) 0.7 % Normal 0.2-2.0 [facility] Comment on above: Performed By: #### C BC #### [facility] [address] [place] [address] Dr. Blanquita Farris EO # 0.2 103/ul Normal 0.0-0.7 [facility] Comment on above: Performed By: #### C BC #### [facility] [address] [place] [address] Dr. Blanquita Farris Eosinophils/100 WBC (Bld) 2.7 % Normal 0.9-7.0 [facility] Comment on above: Performed By: #### C BC #### [facility] [address] [place] [address] Dr. Blanquita Farris Erythrocyte distribution width (RBC) [Ratio] 14.8 % Normal 11.0-15.0 [facility] Comment on above: Performed By: #### C BC #### [facility] [address] [place] [address] Dr. Blanquita Farris Hematocrit (Bld) [Volume fraction] 43.4 % Normal 36.0-48.0 [facility] Comment on above: Performed By: #### C BC #### [facility] [address] [address] [address] Blanquita Farris Hemoglobin (Bld) [Mass/Vol] 14.1 g/dL Normal 12.0-16.0 [facility] Comment on above: Performed By: #### C BC #### [facility] [address] [address] [address] Blanquita Farris IG # 0.03 10e3/ul Normal 0.00-0.03 [facility] Comment on above: Performed By: #### C BC #### [facility] [address] [address] [address] Blanquita Farris IG % 0.5 % Normal 0.0-0.5 [facility] Comment on above: Performed By: #### C BC #### [facility] [address] [address] [address] Blanquita Farris LYMPH # 1.1 103/ul Critically low 1.2-3.8 [facility] Comment on above: Performed By: #### C BC #### [facility] [address] [address] [address] Blanquita Farris Lymphocytes/100 WBC (Bld) 18.9 % Critically low 20.5-60.0 [facility] Comment on above: Performed By: #### C BC #### [facility] [address] [address] [address] Blanquita Farris MANUAL DIFF REQ NO Normal [facility] Comment on above: Performed By: #### C BC #### [facility] [address] [address] [address] Blanquita Farris MCH (RBC) [Entitic mass] 27.9 pg Normal 26.7-34.0 [facility] Comment on above: Performed By: #### C BC #### [facility] [address] [address] [address] Blanquita Farris MCHC (RBC) [Mass/Vol] 32.5 g/dL Normal 29.9-35.2 [facility] Comment on above: Performed By: #### C BC #### [facility] [address] [address] [address] Blanquita Farris MCV (RBC) [Entitic vol] 85.8 fL Normal 81.0-99.0 [facility] Comment on above: Performed By: #### C BC #### [facility] [address] [address] [address] Blanquita Farris MONO # 0.4 103/ul Normal 0.3-0.8 [facility] Comment on above: Performed By: #### C BC #### [facility] [address] [place] [address] Dr. Blanquita Farris Monocytes/100 WBC (Bld) 7.2 % Normal 1.7-12.0 [facility] Comment on above: Performed By: #### C BC #### [facility] [address] [place] [address] Dr. Blanquita Farris NEUT # 4.1 103/ul Normal 1.4-6.5 [facility] Comment on above: Performed By: #### C BC #### [facility] [address] [place] [address] Dr. Blanquita Farris Neutrophils/100 WBC (Bld) 70.0 % Normal 43.0-75.0 [facility] Comment on above: Performed By: #### C BC #### [facility] [address] [place] [address] Dr. Blanquita Farris Platelet mean volume (Bld) [Entitic vol] 10.4 fL Normal 9.5-13.5 [facility] Comment on above: Performed By: #### C BC #### [facility] [address] [place] [address] Dr. Blanquita Farris PLT 158 103/ul Normal 150-450 [facility] Comment on above: Performed By: #### C BC #### [facility] [address] [place] [address] Dr. Blanquita Farris RBC 5.06 106/ul Normal 4.20-5.40 [facility] Comment on above: Performed By: #### C BC #### [facility] [address] [address] [address] Blanquita Farris WBC 5.9 103/ul Normal 4.0-11.0 [facility] Comment on above: Performed By: #### C BC #### [facility] [address] [address] [address] Blanquita Farris FREE THYROXINE INDEX T7on FTI 4.00 Normal 1.30-4.50 [facility] Comment on above: Performed By: #### C BC #### [facility] [address] [address] [address] Blanquita Farris T3U 31.0 % Normal 30.0-39.0 [facility] Comment on above: Performed By: #### C BC #### [facility] [address] [place] [address] Dr. Blanquita Farris T4 [Mass/Vol] 12.90 ug/dL Normal 4.80-13.90 [facility] Comment on above: Performed By: #### C BC #### [facility] [address] [address] [address] Blanquita Farris GLYCOHEMOGLOBIN A1Con 2021 ADA RECOMMENDATION SEE BELOW Normal [facility] Comment on above: Result Comment: ADA RECOMMENDED LIMIT 4.0 - 6.0 ADA THERAPEUTIC TARGET < 7.0 ACTION SUGGESTED > 7.0 Performed By: #### A 1C #### [facility] [address] [address] [address] Blanquita Farris Glucose [Mass/Vol] 146 mg/dL Normal [facility] Comment on above: Performed By: #### A 1C #### [facility] [address] [address] [address] Blanquita Farris HbA1c (Bld) [Mass fraction] 6.7 % Critically high 4.5-6.2 [facility] Comment on above: Performed By: #### A 1C #### [facility] [address] [address] [address] Blanquita Farris IRONon 03-15-2022 Iron [Mass/Vol] 67.0 ug/dL Normal 50.0-170.0 [facility] Comment on above: Performed By: #### I KEON #### [facility] [address] [address] [address] Blanquita Farris LIPID PROFILEon 03-15-2022 CHOL-HDL RATIO NORM SEE BELOW Normal [facility] Comment on above: Result Comment: 3.3 - 4.4 LOW RISK 4.4 - 7.1 AVERAGE RISK 7.1 - 11.0 MODERATE RISK >11.0 HIGH RISK Performed By: #### C BC #### [facility] [address] [address] [address] Blanquita Farris Cholesterol [Mass/Vol] 137 mg/dL Normal <=200 [facility] Comment on above: Performed By: #### C BC #### [facility] [address] [address] [address] Blanquita Farris Cholesterol in HDL [Mass/Vol] 52 mg/dL Normal 40-60 [facility] Comment on above: Performed By: #### C BC #### [facility] [address] [address] [address] Blanquita Farris Cholesterol in LDL [Mass/Vol] 62.0 mg/dL Normal [facility] Comment on above: Performed By: #### C BC #### [facility] [address] [address] [address] Blanquita Farris Cholesterol.total/C holesterol in HDL [Mass ratio] 2.6 {ratio} Normal [facility] Comment on above: Performed By: #### C BC #### [facility] [address] [address] [address] Blanquita Farris HDL NORMAL > or = 60 mg/dl - LO W CARDIOVASCULAR RISK <40 mg/dl - HIGH CARDIOVASCULAR RISK Normal [facility] Comment on above: Performed By: #### C BC #### [facility] [address] [address] [address] Blanquita Farris LDL CALC NORMAL SEE BELOW Normal [facility] Comment on above: Result Comment: <100 mg/dl OPTIMAL 100 - 129 mg/dl NEAR OR ABOVE OPTIMAL 130 - 159 mg/dl BORDERLINE HIGH 160 - 189 mg/dl HIGH >190 mg/dl VERY HIGH Performed By: #### C BC #### [facility] [address] [address] [address] Blanquita Farris Triglyceride [Mass/Vol] 115 mg/dL Normal <=150 [facility] Comment on above: Performed By: #### C BC #### [facility] [address] [address] [address] Blanquita Farris VLDL CALC 23.0 mg/dL Normal [facility] Comment on above: Performed By: #### C BC #### [facility] [address] [place] [address] Dr. Blanquita Farris PROF 14(COMP METB)on 022 Albumin [Mass/Vol] 4.1 g/dL Normal 3.4-5.0 [facility] Comment on above: Performed By: #### C BC #### [facility] [address] [place] [address] Dr. Blanquita Farris Albumin/Globulin [Mass ratio] 1.0 {ratio} Normal [facility] Comment on above: Performed By: #### C BC #### [facility] [address] [place] [address] Dr. Blanquita Farris ALP [Catalytic activity/Vol] 94 U/L Normal 46-116 [facility] Comment on above: Performed By: #### C BC #### [facility] [address] [place] [address] Dr. Blanquita Farris ALT [Catalytic activity/Vol] 32 U/L Normal 14-59 [facility] Comment on above: Performed By: #### C BC #### [facility] [address] [place] [address] Dr. Blanquita Farris Anion gap [Moles/Vol] 8.8 mmol/L Normal [facility] Comment on above: Performed By: #### C BC #### [facility] [address] [place] [address] Dr. Blanquita Farris AST [Catalytic activity/Vol] 26 U/L Normal 15-37 [facility] Comment on above: Performed By: #### C BC #### [facility] [address] [place] [address] Dr. Blanquita Farris Bilirubin [Mass/Vol] 0.4 mg/dL Normal 0.2-1.0 [facility] Comment on above: Performed By: #### C BC #### [facility] [address] [place] [address] Dr. Blanquita Farris Calcium [Mass/Vol] 9.0 mg/dL Normal 8.5-10.1 [facility] Comment on above: Performed By: #### C BC #### [facility] [address] [address] [address] Blanquita Farris Chloride [Moles/Vol] 100 mmol/L Normal 98-107 [facility] Comment on above: Performed By: #### C BC #### [facility] [address] [place] [address] Dr. Blanquita Farris CO2 [Moles/Vol] 31.6 mmol/L Normal 21.0-32.0 [facility] Comment on above: Performed By: #### C BC #### [facility] [address] [place] [address] Dr. Blanquita Farris Creatinine [Mass/Vol] 0.87 mg/dL Normal 0.55-1.02 [facility] Comment on above: Performed By: #### C BC #### [facility] [address] [place] [address] Dr. Blanquita Farris EGFR-AF EMIRATI >60 Normal >=60 [facility] Comment on above: Performed By: #### C BC #### [facility] [address] [place] [address] Dr. Blanquita Farris EGFR-NON AF EMIRATI >60 Normal >=60 [facility] Comment on above: Performed By: #### C BC #### [facility] [address] [place] [address] Dr. Blanquita Farris Globulin (S) [Mass/Vol] 4.0 g/dL Normal [facility] Comment on above: Performed By: #### C BC #### [facility] [address] [place] [address] Dr. Blanquita Farris Glucose [Mass/Vol] 192 mg/dL Critically high 74-106 [facility] Comment on above: Performed By: #### C BC #### [facility] [address] [address] [address] Blanquita Farris Potassium [Moles/Vol] 3.4 mmol/L Critically low 3.5-5.1 [facility] Comment on above: Performed By: #### C BC #### [facility] [address] [address] [address] Blanquita Farris Protein [Mass/Vol] 8.1 g/dL Normal 6.4-8.2 [facility] Comment on above: Performed By: #### C BC #### [facility] [address] [address] [address] Blanquita Farris Sodium [Moles/Vol] 137 mmol/L Normal 136-145 [facility] Comment on above: Performed By: #### C BC #### [facility] [address] [address] [address] Blanquita Farris Urea nitrogen [Mass/Vol] 9.0 mg/dL Normal 7.0-18.0 [facility] Comment on above: Performed By: #### C BC #### [facility] [address] [address] [address] Blanquita Farris Urea nitrogen/Creatinine [Mass ratio] 10.3 mg/mg Normal [facility] Comment on above: Performed By: #### C BC #### [facility] [address] [address] [address] Blanquita Farris PROTIMEon 03-15-2022 INR Coag (PPP) [Relative time] 1.15 {INR} Normal [facility] Comment on above: Performed By: #### C BC #### [facility] [address] [address] [address] Blanquita Farris INR GUIDELINES SEE BELOW Normal [facility] Comment on above: Result Comment: SOLANGE RED INR: 2.0 - 3.0 CONDITIONS NOT LISTED BELOW 2.5 - 3.5 FOR PROSTHETIC HEART VALVE REPLACEMENT 2.5 - 3.5 RECURRENT THROMBOSIS Performed By: #### C BC #### [facility] [address] [address] [address] Blanquita Farris PT Coag (PPP) [Time] 12.3 s Critically high 9.0-11.6 [facility] Comment on above: Performed By: #### C BC #### [facility] [address] [address] [address] Blanquita Farris TSHon 03-15-2022 TSH 0.342 uIU/mL Critically low 0.358-3.740 [facility] Comment on above: Performed By: #### C BC #### [facility] [address] [address] [address] Blanquita Farris Progress Noteson 02-16-2022 [employer] Authentication Interface Message Text EMERGENCY TRIAGE, TREAT AND TRANSPORT (ET3) DOCUMENTATION OF TELEHEALTH VISIT Date / Time: 02/16/2022 / 6:00 AM Name: Renetta Barbosa : 1960 SSN: (Not on file) EMS Agency: [facility] [] Verbal consent obtained [...] Completed by: Pedro Arechiga MD Normal [facility] [employer] [facility] US SINGLE QUAD RT UPPERon US [...] LEONEL MATA Date: 2021-11-25 17:56 Normal [facility] ACETONE SERUMon 05-17-2021 ACETONE Negative Normal NEGATIVE [facility] Comment on above: Performed By: #### A CETON #### [facility] [address] [place] [address] Dr. Blanquita Farris CBC W MANUAL DIFFon 05-17-20 21 ATYPICAL LYMPH # Normal [facility] Comment on above: Performed By: #### C BCMAN #### [facility] [address] [place] [address] Dr. Blanquita Farris ATYPICAL LYMPH % Normal [facility] Comment on above: Performed By: #### C BCMAN #### [facility] [address] [place] [address] Dr. Blanquita Farris BAND # Normal 0.0-0.3 [facility] Comment on above: Performed By: #### C BCMAN #### [facility] [address] [address] [address] Blanquita Farris BAND % Normal 0-5 [facility] Comment on above: Performed By: #### C BCMAN #### [facility] [address] [address] [address] Blanquita Farris BASOM # 0.00 103/ul Normal 0.00-0.10 [facility] Comment on above: Performed By: #### C BCMAN #### [facility] [address] [place] [address] Dr. Blanquita Farris BASOM % 0.0 % Critically low 0.2-2.0 [facility] Comment on above: Performed By: #### C BCDALI #### [facility] [address] [address] [address] Blanquita Farris BLAST # Normal [facility] Comment on above: Performed By: #### C BCDALI #### [facility] [address] [address] [address] Blanquita Farris BLAST % Normal [facility] Comment on above: Performed By: #### C BCDALI #### [facility] [address] [place] [address] Dr. Blanquita Farris CORRECTED WBC Normal 4.0-11.0 [facility] Comment on above: Performed By: #### C BRIGETTE #### [facility] [address] [place] [address] Dr. Blanquita Farris EOS # 0.00 103/ul Normal 0.00-0.70 [facility] Comment on above: Performed By: #### C BRIGETTE #### [facility] [address] [place] [address] Dr. Blanquita Farris EOS% 0.0 % Critically low 0.9-7.0 [facility] Comment on above: Performed By: #### C BRIGETTE #### [facility] [address] [place] [address] Dr. Blanquita Farris HCT 40.7 % Normal 36.0-48.0 [facility] Comment on above: Performed By: #### C BRIGETTE #### [facility] [address] [place] [address] Dr. Blanquita Farris HGB 12.9 g/dl Normal 12.0-16.0 [facility] Comment on above: Performed By: #### C BCDALI #### [facility] [address] [place] [address] Dr. Blanquita Farris LYMPHM # 0.63 103/ul Critically low 1.20-3.80 [facility] Comment on above: Performed By: #### C BRIGETTE #### [facility] [address] [place] [address] Dr. Blanquita Farris LYMPHM% 18.0 % Critically low 20.5-60.0 [facility] Comment on above: Performed By: #### C BRIGETTE #### [facility] [address] [place] [address] Dr. Blanquita Farris MCH 28.4 pg Normal 26.7-34.0 [facility] Comment on above: Performed By: #### C BRIGETTE #### [facility] [address] [place] [address] Dr. Blanquita Farris MCHC 31.7 g/dl Normal 29.9-35.2 [facility] Comment on above: Performed By: #### C BRIGETTE #### [facility] [address] [place] [address] Dr. Blanquita Fraris MCV 89.5 fL Normal 81.0-99.0 [facility] Comment on above: Performed By: #### C BRIGETTE #### [facility] [address] [place] [address] Dr. Blanquita Farris METAMYELOCYTE # Normal [facility] Comment on above: Performed By: #### C BRIGETTE #### [facility] [address] [place] [address] Dr. Blanquita Farris METAMYELOCYTE % Normal [facility] Comment on above: Performed By: #### C BRIGETTE #### [facility] [address] [place] [address] Dr. Blanquita Farris MONOM# 0.14 103/ul Critically low 0.30-0.80 [facility] Comment on above: Performed By: #### C BRIGETTE #### [facility] [address] [place] [address] Dr. Blanquita Farris MONOM% 4.0 % Normal 1.7-12.0 [facility] Comment on above: Performed By: #### C BCDALI #### [facility] [address] [place] [address] Dr. Blanquita Farris MPV 12.1 fL Normal 9.5-13.5 [facility] Comment on above: Performed By: #### C BRIGETTE #### [facility] [address] [place] [address] Dr. Blanquita Farris MYELOCYTE # Normal [facility] Comment on above: Performed By: #### C BRIGETTE #### [facility] [address] [place] [address] Dr. Blanquita Farris MYELOCYTE % Normal [facility] Comment on above: Performed By: #### C BRIGETTE #### [facility] [address] [address] [address] Blanquita Farris NRBC Normal [facility] Comment on above: Performed By: #### C BRIGETTE #### [facility] [address] [address] [address] Blanquiat Farris PLT 121 103/ul Critically low 150-450 [facility] Comment on above: Performed By: #### C BRIGETTE #### [facility] [address] [place] [address] Dr. Blanquita Farris RBC 4.55 106/ul Normal 4.20-5.40 [facility] Comment on above: Performed By: #### C BRIGETTE #### [facility] [address] [place] [address] Dr. Blanquita Farris RDW 15.8 % Critically high 11.0-15.0 [facility] Comment on above: Performed By: #### C BRIGETTE #### [facility] [address] [place] [address] Dr. Blanquita Farris SEG # 2.73 103/ul Normal 1.40-6.50 [facility] Comment on above: Performed By: #### C BRIGETTE #### [facility] [address] [place] [address] Dr. Blanquita Farris SEG % 78.0 % Critically high 43.0-75.0 [facility] Comment on above: Performed By: #### C BRIGETTE #### [facility] [address] [place] [address] Dr. Blanquita Farris WBC 3.5 103/ul Critically low 4.0-11.0 [facility] Comment on above: Performed By: #### C BRIGETTE #### [facility] [address] [place] [address] CSPINE WO CONon [...] KEYSHA NAIDU Date: 2021-05-17 09:10 Normal [facility] ER URINE PROFILEon 1 Bilirubin Ql (U) Negative Normal NEGATIVE [facility] Comment on above: Performed By: #### E RUR #### [facility] [address] [place] [address] Dr. Blanquita Farris Clarity (U) CLEAR Normal CLEAR [facility] Comment on above: Performed By: #### E RUR #### [facility] [address] [place] [address] Dr. Blanquita Farris Color (U) LT. YELLOW Normal YELLOW [facility] Comment on above: Performed By: #### E RUR #### [facility] [address] [place] [address] Dr. Blanquita Farris ERUAHD A micrscopic examination will be performed if indicated. Normal [facility] Comment on above: Performed By: #### E RUR #### [facility] [address] [place] [address] Dr. Blanquita Farris Glucose Ql (U) 100 mg/dl Abnormal NEGATIVE [facility] Comment on above: Performed By: #### E RUR #### [facility] [address] [place] [address] Dr. Blanquita Farris Hemoglobin Ql (U) Negative Normal NEGATIVE [facility] Comment on above: Performed By: #### E RUR #### [facility] [address] [place] [address] Dr. Blanquita Farris Ketones Ql (U) Negative Normal NEGATIVE [facility] Comment on above: Performed By: #### E RUR #### [facility] [address] [place] [address] Dr. Blanquita Farris LEUKOCYTES Negative Normal NEGATIVE [facility] Comment on above: Performed By: #### E RUR #### [facility] [address] [place] [address] Dr. Blanquita Farris Nitrite Ql (U) Negative Normal NEGATIVE [facility] Comment on above: Performed By: #### E RUR #### [facility] [address] [place] [address] Dr. Blanquita Farris pH (U) 7.0 [pH] Normal 5-9 [facility] Comment on above: Performed By: #### E RUR #### [facility] [address] [place] [address] Dr. Blanquita Farris SPEC GRAVITY 1.015 Normal 1.005-<=1.025 [facility] Comment on above: Performed By: #### E RUR #### [facility] [address] [place] [address] Dr. Blanquita Farris UA PROTEIN Negative Normal NEGATIVE/ TRACE [facility] Comment on above: Performed By: #### E RUR #### [facility] [address] [place] [address] Dr. Blanquita Farris UR MICRO IND NOT INDICATED Normal [facility] Comment on above: Performed By: #### E RUR #### [facility] [address] [place] [address] Dr. Blanquita Farris Urobilinogen Qn (U) 0.2 {Chevy'U}/dL Normal 0.2 - 1. 0 [facility] Comment on above: Performed By: #### E RUR #### [facility] [address] [place] [address] Dr. Blanquita Farris POINT OF CARE GLUCOSEon 04-23 Glucose [Mass/Vol] 234 mg/dL Critically high 74-106 T [facility] Comment on above: Performed By: #### P OCGLUC #### [facility] [address] [place] [address] Dr. Blanquita Farris PROF 14(COMP METB)on 021 Albumin [Mass/Vol] 3.5 g/dL Normal 3.5-5.0 [facility] Comment on above: Performed By: #### C MP #### [facility] [address] [place] [address] Dr. Blanquita Farris Albumin/Globulin [Mass ratio] 0.9 {ratio} Normal [facility] Comment on above: Performed By: #### C MP #### [facility] [address] [place] [address] Dr. Blanquita Farris ALP [Catalytic activity/Vol] 73 U/L Normal 38-126 [facility] Comment on above: Performed By: #### C MP #### [facility] [address] [place] [address] Dr. Blanquita Farris ALT [Catalytic activity/Vol] 39 U/L Normal 9-52 [facility] Comment on above: Performed By: #### C MP #### [facility] [address] [place] [address] Dr. Blanquita Farris Anion gap [Moles/Vol] 12.9 mmol/L Normal [facility] Comment on above: Performed By: #### C MP #### [facility] [address] [place] [address] Dr. Blanquita Farris AST [Catalytic activity/Vol] 33 U/L Normal 14-36 [facility] Comment on above: Performed By: #### C MP #### [facility] [address] [address] [address] Blanquita Farris Bilirubin [Mass/Vol] 0.3 mg/dL Normal 0.2-1.3 [facility] Comment on above: Performed By: #### C MP #### [facility] [address] [address] [address] Blanquita Farris Calcium [Mass/Vol] 8.9 mg/dL Normal 8.4-10.2 [facility] Comment on above: Performed By: #### C MP #### [facility] [address] [address] [address] Blanquita Farris Chloride [Moles/Vol] 105 mmol/L Normal 98-107 [facility] Comment on above: Performed By: #### C MP #### [facility] [address] [place] [address] Dr. Blanquita Farris CO2 [Moles/Vol] 28.3 mmol/L Normal 22.0-30.0 [facility] Comment on above: Performed By: #### C MP #### [facility] [address] [place] [address] Dr. Blanquita Farris Creatinine [Mass/Vol] 0.75 mg/dL Normal 0.52-1.04 [facility] Comment on above: Performed By: #### C MP #### [facility] [address] [place] [address] Dr. Blnaquita Farris EGFR-AF EMIRATI >60 Normal >=60 [facility] Comment on above: Performed By: #### C MP #### [facility] [address] [place] [address] Dr. Blanquita Farris EGFR-NON AF EMIRATI >60 Normal >=60 [facility] Comment on above: Performed By: #### C MP #### [facility] [address] [place] [address] Dr. Blanquita Farris Globulin (S) [Mass/Vol] 3.8 g/dL Normal [facility] Comment on above: Performed By: #### C MP #### [facility] [address] [place] [address] Dr. Blanquita Farris Glucose [Mass/Vol] 173 mg/dL Critically high 74-106 T [facility] Comment on above: Performed By: #### C MP #### [facility] [address] [address] [address] Blanquita Farris Potassium [Moles/Vol] 3.2 mmol/L Critically low 3.4-5.0 [facility] Comment on above: Performed By: #### C MP #### [facility] [address] [address] [address] Blanquita Farris Protein [Mass/Vol] 7.3 g/dL Normal 6.1-8.2 [facility] Comment on above: Performed By: #### C MP #### [facility] [address] [place] [address] Dr. Blanquita Farris Sodium [Moles/Vol] 143 mmol/L Normal 137-145 [facility] Comment on above: Performed By: #### C MP #### [facility] [address] [place] [address] Dr. Blanquita Farris Urea nitrogen [Mass/Vol] 11.0 mg/dL Normal 7.0-17.0 [facility] Comment on above: Performed By: #### C MP #### [facility] [address] [place] [address] Dr. Blanquita Farris Urea nitrogen/Creatinine [Mass ratio] 14.7 mg/mg Normal [facility] Comment on above: Performed By: #### C MP #### [facility] [address] [place] [address] Dr. Blanquita Farris DIGITAL MAMMOGRAM SCREENING BILATERAL 11-22-2018 DIGITAL MAMMOGRAM SCREENING BILATERAL [facility] Department of Radiology [address] [place] [id number] ======== Patient Name: RENETTA HERNANDEZ : 1960 Sex: F Age: Race: White Pt. Location: [facility] Patient Status: D Ordered Date: 10/11/2018 3:20:00 PM Completed Date: 11/22/2018 12:09 PM Requesting Provider: DES GLYNN Attending Provider: DES GLYNN Report Copy To: Signs & Symptoms: Z12.31 Encntr screen mammogram for malignant neoplasm of breast I10 History: [place] Previous study [facility] 07/16/17 Comments: , Additional imaging, [...] recommended. Electronically signed by:Summer Cage. Transcribed by: [email or web address], User Resident: Electronically Signed by: SUMMER CAGE @ 11/24/2018 03:21 PM Normal [facility] Comment on above: Order Comment: , Add itional imaging, if necessary?: Y , Additional imaging, if necessary?: Y , , , Ordering Provider - DES GLYNN CNP , *VAGINITIS DNA PROBEon 10-11 *VAGINITIS DNA PROBE Clinical Report: (D) Specimen: GENITAL Collected: 10/11/2018 14:45 Status: Final Last Updated: 10/11/2018 19:16 MARQUITA (Final) Negative JUAN (Final) Negative TRICH (Final) Negative Normal [facility] Comment on above: Performed By: #### [id number] #### [facility] [address] FREE T4on 09-20-2018 Free T4 [Mass/Vol] 0.93 ng/dL Normal 0.71-1.85 [facility] Comment on above: Performed By: #### 3 1522, [id number], [id number], [id number] #### [facility] [address] [place] [address], [facility] HEMOGLOBIN A1Con 09-20-2018 HbA1c (Bld) [Mass fraction] 269 mg/dL High 70-126 [facility] Comment on above: Performed By: #### 4 [id number] #### [facility] [address] [place] [address], [facility] HbA1c (Bld) [Mass fraction] 11.0 % High 4.0-6.0 [facility] Comment on above: Performed By: #### 4 [id number] #### [facility] [address] [place] [address], [facility] LIPID PROFILEon 09-20-2018 Cholesterol [Mass/Vol] 164 mg/dL Normal 120-200 [facility] Comment on above: Result Comment: CHOL ESTEROL REFERENCE RANGE: 20 YEARS AND OLDER CARDIOVASCULAR RISK Less than 200 mg/dl Low Risk 200 to 239 mg/dl Borderline Risk 240 mg/dl and greater High Risk Performed By: #### 3 1522, [id number], [id number], [id number] #### [facility] [address] [place] [address], [place] Cholesterol in HDL [Mass/Vol] 30 mg/dL Normal 23-92 [facility] Comment on above: Result Comment: Slig ht variation in normal range could be due to gender and/or age. HDL CHOLESTEROL REFERENCE RANGE: 20 years and older Cardiovascular Risk > or =60 mg/dL Desirable 40 TO 59 mg/dL Low Risk <40 mg/dL High Risk Performed By: #### 3 1522, [id number], [id number], [id number] #### [facility] [address] [place] [address], [place] Cholesterol in LDL [Mass/Vol] 91 mg/dL Normal 0-130 [facility] Comment on above: Result Comment: LDL IS A CALCULATION LDL IS ONLY VALID IF THE TRIG IS LESS THAN 400. Performed By: #### 3 1522, [id number], 77283, [id number] #### [facility] [address] [place] [address], [place] Cholesterol.total/C holesterol in HDL [Mass ratio] 5.5 {ratio} High .0-4.5 [facility] Comment on above: Performed By: #### 3 1522, [id number], 96023, 49459 #### [facility] [address] [place] [address], [place] NON-HDL CHOLESTEROL 134 mg/dL Normal [facility] Comment on above: Performed By: #### 3 1522, 68954, 72867, 85440 #### [facility] [address] [place] [address], [place] Triglyceride [Mass/Vol] 215 mg/dL High 40-149 [facility] Comment on above: Result Comment: TRIG LYCERIDE REFERENCE RANGE: 20 YEARS AND OLDER CARDIOVASCULAR RISK LESS THAN 150 mg/dl LOW RISK 150 TO 199 mg/dl BORDERLINE RISK 200 mg/dl AND GREATER HIGH RISK Performed By: #### 3 1522, 64807, 15941, 59758 #### [facility] [address] [place] [address], [facility] VLDL CHOL 43 mg/dL High 0-40 [facility] Comment on above: Performed By: #### 3 1522, 17388, 18373, 47018 #### [facility] [address] [place] [address], [place] MICROALBUMIN URINE RANDOMon 09-20-2018 Creatinine [Mass/Vol] 148.0 mg/dL Normal [facility] Comment on above: Result Comment: Ther e are no established reference values for random urine specimens Performed By: #### 3 0067 #### [facility] [address] [place] [address], [facility] MICROALBUMIN <1.0 Normal [facility] Comment on above: Performed By: #### 3 0067 #### [facility] [address] [place] [address], [facility] MICROALBUMIN/CREATI NINE RATIO 'UNABLE TO CALC Normal 0.0-30.0 [facility] Comment on above: Performed By: #### 3 0067 #### [facility] [address] [place] [address], [facility] TSH3on 09-20-2018 TSH 3RD GENERATION 1.53 uIU/mL Normal 0.34-5.60 [facility] Comment on above: Performed By: #### 3 1522, 64309, 97551, 97810 #### [facility] [address] [place] [address], [facility] VITAMIN D 25-HYDROXYon 09-20 VITAMIN D 25-OH 33.8 ng/mL Normal 30.0-80.0 [facility] Comment on above: Result Comment: >80. 0 Toxicity possible Performed By: #### 3 1522, 66140, 17165, 86517 #### [address] [address], [facility] US HEPATIC ECHOGRAMon 2018 US HEPATIC ECHOGRAM [facility] Department of Radiology [address] [facility] [place] [address] ======== Patient Name: RENETTA HERNANDEZ : 1960 Sex: F Age: Race: White Pt. Location: [facility] Patient Status: O Ordered Date: 06/19/2018 3:35:00 PM Completed Date: 08/22/2018 10:39 AM Requesting Provider: ANGELIQUE BENNETT Attending Provider: ANGELIQUE BENNETT Report Copy To: FAINA CHAPMAN Signs & Symptoms: K74.60 Unspecified cirrhosis of liver I10 History: [place] Comments: , , , Ordering Provider - [...] signed by:Russell De La Rosa. Transcribed by: [email or web address], User Resident: Electronically Signed by: RUSSELL DE LA ROSA @ 08/22/2018 12:53 PM Normal [facility] Comment on above: Order Comment: , , = ========= , Ordering Provider - ANGELIQUE BENNETT MD , US ABDOMINAL FOR ASCITES JIMENEZ ITEDon 06-28-2018 US ABDOMINAL FOR ASCITES LIMITED [facility] Department of Radiology [address] [place] [id number] ======== Patient Name: RENETTA HERNANDEZ : 1960 Sex: F Age: Race: White Pt. Location: [facility] Patient Status: O Ordered Date: 06/19/2018 3:35:00 [...] signed by:Russell De La Rosa. Transcribed by: [email or web address], User Resident: LAST FRANCO Electronically Signed by: RUSSELL DE LA ROSA @ 06/28/2018 12:53 PM I personally read this/these film(s) with this resident Normal [facility] Comment on above: Order Comment: , , = ========= , Ordering Provider - ANGELIQUE BENNETT MD , COMP METABOLIC PANELon 06-19 Albumin [Mass/Vol] 4.1 g/dL Normal 3.5-5.7 [facility] Comment on above: Performed By: #### 0 0121 #### [facility] [address] [place] [address], [facility] ALKALINE PHOSPH 67 IU/L Normal 34-104 [facility] Comment on above: Performed By: #### 0 0121 #### [facility] [address] [place] [address], [place] ALT [Catalytic activity/Vol] 21 U/L Normal 7-52 [facility] Comment on above: Performed By: #### 0 0121 #### [facility] [address] [place] [address], [place] AST [Catalytic activity/Vol] 22 U/L Normal 13-39 [facility] Comment on above: Performed By: #### 0 0121 #### [facility] [address] [place] [address], [place] Bilirubin [Mass/Vol] 0.5 mg/dL Normal 0.3-1.0 [facility] Comment on above: Performed By: #### 0 0121 #### [facility] [address] [place] [address], [place] Calcium [Mass/Vol] 9.7 mg/dL Normal 8.6-10.3 [facility] Comment on above: Performed By: #### 0 0121 #### [facility] [address] [place] [address], [place] Chloride [Moles/Vol] 103 mmol/L Normal 98-107 [facility] Comment on above: Performed By: #### 0 0121 #### [facility] [address] [place] [address], [place] CO2 [Moles/Vol] 28 mmol/L Normal 21-31 [facility] Comment on above: Performed By: #### 0 0121 #### [facility] [address] [place] [address], [place] Creatinine [Mass/Vol] 0.89 mg/dL Normal 0.60-1.20 [facility] Comment on above: Performed By: #### 0 0121 #### [facility] [address] [place] [address], [place] GFR/1.73 sq M predicted among blacks MDRD (S/P/Bld) [Vol rate/Area] mL/min/{1.73_m2} Normal >60 [facility] Comment on above: Performed By: #### 0 0121 #### [facility] [address] [place] [address], [place] GFR/1.73 sq M predicted among non-blacks MDRD (S/P/Bld) [Vol rate/Area] mL/min/{1.73_m2} Normal >60 [facility] Comment on above: Performed By: #### 0 0121 #### [facility] [address] [place] [address], [facility] Glucose [Mass/Vol] 175 mg/dL High 70-100 [facility] Comment on above: Performed By: #### 0 0121 #### [facility] [address] [place] [address], [facility] Potassium [Moles/Vol] 3.8 mmol/L Normal 3.5-5.1 [facility] Comment on above: Performed By: #### 0 0121 #### [facility] [address] [facility] [place] [place] [address], [facility] Protein [Mass/Vol] 7.5 g/dL Normal 6.0-8.3 [facility] Comment on above: Performed By: #### 0 0121 #### [facility] [address] [place] [address], [facility] Sodium [Moles/Vol] 139 mmol/L Normal 136-145 [facility] Comment on above: Performed By: #### 0 0121 #### [facility] [address] [place] [address], [facility] Urea nitrogen [Mass/Vol] 14 mg/dL Normal 7-25 [facility] Comment on above: Performed By: #### 0 0121 #### [facility] [address] PROTHROMBIN TIMEon 9 INR Coag (PPP) [Relative time] 1.17 {INR} High 0.91-1.16 [facility] Comment on above: Result [...] 1995;[id number]. Performed By: #### 5 6101 #### [facility] [address] [facility]. [address] PT Coag (PPP) [Time] 14.9 s High 12.3-14.8 [facility] Comment on above: Result Comment: ALL RESULTS MUST BE INTERPRETED WITH RESPECT TO BLOOD DRAWING ARTIFACT OR DILUTION ERROR OF ANTICOAGULANT AT THE TIME OF SAMPLING. Performed By: #### 5 6101 #### [facility] [address] [facility]. [address] Vital Signs Date Time Vital Sign Value Performing Clinician Facility 10-30-2024 14:20-0400 Body height 157.5 cm Ze Solis MD Work Phone: [facility] 10-30-2024 14:20-0400 Body mass index (BMI) [Ratio] 34.02 kg/m2 Ze Solis MD Work Phone: [facility] 10-30-2024 14:20-0400 Body weight 84.37 kg Ze Solis MD Work Phone: [facility] 10-30-2024 14:20-0400 Diastolic blood pressure 80 mm[Hg] Ze Solis MD Work Phone: [facility] 10-30-2024 14:20-0400 Heart rate 99 /min Ze Solis MD Work Phone: [facility] 10-30-2024 14:20-0400 Respiratory rate 20 /min Ze Solis MD Work Phone: [facility] 10-30-2024 14:20-0400 SaO2% (BldA) [Mass fraction] 96 % Ze Solis MD Work Phone: [facility] 10-30-2024 14:20-0400 Systolic blood pressure 130 mm[Hg] Ze Solis MD Work Phone: [facility] 09-10-2024 15:48-0400 Body mass index (BMI) [Ratio] 33.07 kg/m2 Sabrina Cox [employer] Work Phone: [facility] 09-10-2024 15:48-0400 Body weight 82.01 kg Sabrina Cox [employer] Work Phone: [facility] 09-10-2024 15:48-0400 Diastolic blood pressure 92 mm[Hg] Sabrina Cox [employer] Work Phone: [facility] 09-10-2024 15:48-0400 Heart rate 91 /min Sabrina Cox [employer] Work Phone: [facility] 09-10-2024 15:48-0400 SaO2% (BldA) [Mass fraction] 98 % Sabrina Cox [employer] Work Phone: [facility] 09-10-2024 15:48-0400 Systolic blood pressure 160 mm[Hg] Sabrina Cox [employer] Work Phone: [facility] 08-30-2024 13:05-0400 Body mass index (BMI) [Ratio] 32.01 kg/m2 Tj Dutton MD Work Phone: [facility] 08-30-2024 13:05-0400 Body weight 79.38 kg Tj Dutton MD Work Phone: [facility] 08-30-2024 13:05-0400 Diastolic blood pressure 82 mm[Hg] Tj Dutton MD Work Phone: [facility] 08-30-2024 13:05-0400 Systolic blood pressure 142 mm[Hg] Tj Dutton MD Work Phone: [facility] 07-30-2024 15:48-0400 Body height 157.5 cm Gi Painterr [employer] Work Phone: [facility] 07-30-2024 15:48-0400 Body mass index (BMI) [Ratio] 32.01 kg/m2 Ig Gillmor [employer] Work Phone: [facility] 07-30-2024 15:48-0400 Body weight 79.38 kg Gi Lindseymor [employer] Work Phone: [facility] 07-30-2024 15:48-0400 Diastolic blood pressure 80 mm[Hg] Gi Lindseymor [employer] Work Phone: [facility] 07-30-2024 15:48-0400 Heart rate 90 /min Gi Rosaliamor [employer] Work Phone: [facility] 07-30-2024 15:48-0400 SaO2% (BldA) [Mass fraction] 94 % Gi Rosaliamor [employer] Work Phone: [facility] 07-30-2024 15:48-0400 Systolic blood pressure 128 mm[Hg] Gi Lindseymor [employer] Work Phone: [facility] 07-02-2024 13:59-0500 Body height 157.5 cm Ze Solis MD Work Phone: [facility] 07-02-2024 13:59-0500 Body mass index (BMI) [Ratio] 32.37 kg/m2 Ze Solis MD Work Phone: [facility] 07-02-2024 13:59-0500 Body weight 80.29 kg Ze Solis MD Work Phone: [facility] 07-02-2024 13:59-0500 Diastolic blood pressure 84 mm[Hg] Ze Solis MD Work Phone: [facility] 07-02-2024 13:59-0500 Heart rate 96 /min Ze Solis MD Work Phone: [facility] 07-02-2024 13:59-0500 Respiratory rate 18 /min Ze Solis MD Work Phone: [facility] 07-02-2024 13:59-0500 SaO2% (BldA) [Mass fraction] 97 % Ze Solis MD Work Phone: [facility] 07-02-2024 13:59-0500 Systolic blood pressure 140 mm[Hg] Ze Solis MD Work Phone: [facility] 06-28-2024 14:09-0500 Body mass index (BMI) [Ratio] 32.05 kg/m2 Andre Funes MD Work Phone: [facility] 06-28-2024 14:09-0500 Body temperature 97.5 [degF] Andre Funes MD Work Phone: [facility] 06-28-2024 14:09-0500 Body weight 79.5 kg Andre Funes MD Work Phone: [facility] 06-28-2024 14:09-0500 Diastolic blood pressure 78 mm[Hg] Andre Funes MD Work Phone: [facility] 06-28-2024 14:09-0500 Heart rate 86 /min Andre Funes MD Work Phone: [facility] 06-28-2024 14:09-0500 Respiratory rate 16 /min Andre Funes MD Work Phone: [facility] 06-28-2024 14:09-0500 SaO2% (BldA) [Mass fraction] 99 % Andre Funes MD Work Phone: [facility] 06-28-2024 14:09-0500 Systolic blood pressure 143 mm[Hg] Andre Funes MD Work Phone: [facility] 01-17-2025 11:48-0500 Blood Pressure Location NGA WILKINS [facility] 06-08-2024 11:48-0500 Diastolic blood pressure 76 mm[Hg] NGA WILKINS [facility] 06-08-2024 11:48-0500 Heart rate 76 /min NGA WILKINS [facility] 06-08-2024 11:48-0500 Systolic blood pressure 136 mm[Hg] NGA WILKINS [facility] 05-29-2024 14:47-0500 Body mass index (BMI) [Ratio] 31.09 kg/m2 Tj Dutton MD Work Phone: [facility] 05-29-2024 14:47-0500 Body weight 77.11 kg Tj Dutton MD Work Phone: [facility] 05-29-2024 14:47-0500 Diastolic blood pressure 82 mm[Hg] Tj Dutton MD Work Phone: [facility] 05-29-2024 14:47-0500 Systolic blood pressure 130 mm[Hg] Tj Dutton MD Work Phone: [facility] 05-28-2024 14:54-0500 Body mass index (BMI) [Ratio] 32.56 kg/m2 Rajat Aguilar [employer] Work Phone: [facility] 05-28-2024 14:54-0500 Body weight 80.74 kg Rajat Aguilar [employer] Work Phone: [facility] 05-28-2024 14:54-0500 Diastolic blood pressure 87 mm[Hg] Rajat Aguilar [employer] Work Phone: [facility] 05-28-2024 14:54-0500 Heart rate 69 /min Rajat Aguilar [employer] Work Phone: [facility] 05-28-2024 14:54-0500 Systolic blood pressure 144 mm[Hg] Rajat Sergio KELLEY Work Phone: [facility] 03-05-2024 14:30-0400 Body height 157.5 cm Ze Solis MD Work Phone: [facility] 03-05-2024 14:30-0400 Body mass index (BMI) [Ratio] 35.12 kg/m2 Ze Solis MD Work Phone: [facility] 03-05-2024 14:30-0400 Body weight 87.09 kg Ze Solis MD Work Phone: [facility] 03-05-2024 14:30-0400 Diastolic blood pressure 72 mm[Hg] Ze Solis MD Work Phone: [facility] 03-05-2024 14:30-0400 Heart rate 77 /min Ze Solis MD Work Phone: [facility] 03-05-2024 14:30-0400 Respiratory rate 18 /min Ze Solis MD Work Phone: [facility] 03-05-2024 14:30-0400 Systolic blood pressure 126 mm[Hg] Ze Solis MD Work Phone: [facility] 02-29-2024 09:25-0400 Blood Pressure Location NGA WILKINS [facility] 02-29-2024 09:25-0400 Diastolic blood pressure 87 mm[Hg] NGA JUANITO [facility] 02-29-2024 09:25-0400 Heart rate 87 /min NGA WILKINS [facility] 02-29-2024 09:25-0400 Systolic blood pressure 150 mm[Hg] NGA WILKINS [facility] 02-14-2024 15:53-0400 Diastolic blood pressure 78 mm[Hg] Mary Alejandro DO Work Phone: [facility] 02-14-2024 15:53-0400 Heart rate 95 /min Mary Alejandro DO Work Phone: [facility] 02-14-2024 15:53-0400 SaO2% (BldA) [Mass fraction] 96 % Mary Alejandro DO Work Phone: [facility] 02-14-2024 15:53-0400 Systolic blood pressure 126 mm[Hg] Mary Alejandro DO Work Phone: [facility] 01-30-2024 14:57-0400 Body mass index (BMI) [Ratio] 35.12 kg/m2 Rajat Aguilar NP Work Phone: [facility] 01-30-2024 14:57-0400 Body weight 87.09 kg Rajat Aguilar NP Work Phone: [facility] 01-02-2024 11:52-0400 Blood Pressure Location NGA JUANIT[facility] 01-02-2024 11:52-0400 Diastolic blood pressure 82 mm[Hg] NGA JUANITO [facility] 01-02-2024 11:52-0400 Heart rate 78 /min NGA JUANITO [facility] 01-02-2024 11:52-0400 Systolic blood pressure 130 mm[Hg] NGA JUANITO [facility] 12-05-2023 11:55-0400 Diastolic blood pressure 54 mm[Hg] NGA JUANITO [facility] 12-05-2023 11:55-0400 Mean blood pressure 77 mm[Hg] NGA JUANITO [facility] 12-05-2023 11:55-0400 Systolic blood pressure 122 mm[Hg] NGA JUANITO [facility] 12-05-2023 11:44-0400 Blood Pressure Location NGA JUANITO [facility] 12-05-2023 11:44-0400 Diastolic blood pressure 107 mm[Hg] NGA JUANITO [facility] 12-05-2023 11:44-0400 Heart rate 95 /min NGA JUANITO [facility] 12-05-2023 11:44-0400 Systolic blood pressure 128 mm[Hg] NGA JUANITO [facility] 11-28-2023 11:43-0400 Blood Pressure Location NGA JUANITO [facility] 11-28-2023 11:43-0400 Diastolic blood pressure 67 mm[Hg] NGA JUANITO [facility] 11-28-2023 11:43-0400 Heart rate 95 /min NGA JUANITO [facility] 11-28-2023 11:43-0400 Systolic blood pressure 148 mm[Hg] NGA JUANITO [facility] 11-21-2023 11:37-0400 Blood Pressure Location NGA JUANITO [facility] 11-21-2023 11:37-0400 Body temperature 97.88 [degF] NGA JUANITO [facility] 11-21-2023 11:37-0400 Diastolic blood pressure 11 mm[Hg] NGA JUANITO [facility] 11-21-2023 11:37-0400 Heart rate 74 /min NGA JUANITO [facility] 11-21-2023 11:37-0400 Respiratory rate 15 /min NGA JUANITO [facility] 11-21-2023 11:37-0400 Systolic blood pressure 131 mm[Hg] NGA JUANITO [facility] 11-14-2023 11:36-0400 Blood Pressure Location NGA JUANITO [facility] 11-14-2023 11:36-0400 Body temperature 97.7 [degF] NGA JUANITO [facility] 11-14-2023 11:36-0400 Diastolic blood pressure 88 mm[Hg] NGA JUANITO [facility] 11-14-2023 11:36-0400 Heart rate 78 /min NGA JUANITO [facility] 11-14-2023 11:36-0400 Systolic blood pressure 150 mm[Hg] NGA JUANITO [facility] 06-23-2023 13:50-0500 Body height 157.5 cm Andre Funes MD Work Phone: [facility] 06-23-2023 13:50-0500 Body temperature 97.59 [degF] Andre Funes MD Work Phone: [facility] 06-23-2023 13:50-0500 Body weight 91.1 kg Andre Funes MD Work Phone: [facility] 06-23-2023 13:50-0500 Diastolic blood pressure 93 mm[Hg] Andre Funes MD Work Phone: [facility] 06-23-2023 13:50-0500 Heart rate 107 /min Andre Funes MD Work Phone: [facility] 06-23-2023 13:50-0500 Respiratory rate 18 /min Andre Funes MD Work Phone: [facility] 06-23-2023 13:50-0500 SaO2% (BldA) [Mass fraction] 94 % Andre Funes MD Work Phone: [facility] 06-23-2023 13:50-0500 Systolic blood pressure 149 mm[Hg] Andre Funes MD Work Phone: [facility] 05-03-2023 10:34-0500 Blood Pressure Location NGA WIL[facility] 05-03-2023 10:34-0500 Diastolic blood pressure 88 mm[Hg] NGA WILKINS [facility] 05-03-2023 10:34-0500 Heart rate 91 /min NGA WILKINS [facility] 05-03-2023 10:34-0500 Respiratory rate 16 /min NGA WILKINS [facility] 05-03-2023 10:34-0500 Systolic blood pressure 138 mm[Hg] NGA WILKINS [facility] 04-05-2023 14:15-0500 Body height 157.48 cm Rodger Davila Other [employer] Other 04-05-2023 14:15-0500 Body mass index (BMI) [Ratio] 37.31 kg/m2 Rodger Davila Other [facility] Other 04-05-2023 14:15-0500 Body weight 92.53 kg Rodger Davila Other [facility] Other 04-05-2023 14:15-0500 Diastolic blood pressure 82 mm[Hg] Rodger Davila Other [facility] Other 04-05-2023 14:15-0500 Systolic blood pressure 143 mm[Hg] Rodger Davila Other [facility] Other 09-28-2022 14:45-0400 Body height 157.48 cm Rodger Davila Other [facility] Other 09-28-2022 14:45-0400 Body mass index (BMI) [Ratio] 37.86 kg/m2 Rodger Lola Other [facility] Other 09-28-2022 14:45-0400 Body weight 93.9 kg Rodger Davila Other [facility] Other 09-28-2022 14:45-0400 Diastolic blood pressure 77 mm[Hg] Rodger Davila Other [facility] Other 09-28-2022 14:45-0400 SaO2% (BldA) [Mass fraction] 95 % Rodger Lola Other [facility] Other 09-28-2022 14:45-0400 Systolic blood pressure 156 mm[Hg] Rodger Hardenack Other [facility] Other 06-25-2022 13:45-0500 Diastolic blood pressure 82 mm[Hg] Andre Funes MD Work Phone: [facility] 06-25-2022 13:45-0500 Systolic blood pressure 152 mm[Hg] Andre Funes MD Work Phone: [facility] 06-25-2022 13:44-0500 Body height 157.5 cm Andre Funes MD Work Phone: [facility] 06-25-2022 13:44-0500 Body temperature 97.5 [degF] Andre Funes MD Work Phone: [facility] 06-25-2022 13:44-0500 Body weight 95.17 kg Andre Funes MD Work Phone: [facility] 06-25-2022 13:44-0500 Heart rate 88 /min Andre Funes MD Work Phone: [facility] 06-25-2022 13:44-0500 Respiratory rate 16 /min Andre Funes MD Work Phone: [facility] 06-25-2022 13:44-0500 SaO2% (BldA) [Mass fraction] 97 % Andre Funes MD Work Phone: [facility] 06-22-2022 14:30-0500 Body height 157.48 cm Rodger Davila Other [facility] Other 06-22-2022 14:30-0500 Body mass index (BMI) [Ratio] 37.86 kg/m2 Rodger Davila Other [facility] Other 06-22-2022 14:30-0500 Body weight 93.9 kg Rodger Davila Other [facility] Other 06-22-2022 14:30-0500 Diastolic blood pressure 80 mm[Hg] Rodger Davila Other [facility] Other 06-22-2022 14:30-0500 Systolic blood pressure 130 mm[Hg] Rodger Davila Other [facility] Other 03-04-2022 15:45-0400 Body height 157.48 cm Rodger Davila Other [facility] Other 03-04-2022 15:45-0400 Body mass index (BMI) [Ratio] 38.59 kg/m2 Rodger Davila Other [facility] Other 03-04-2022 15:45-0400 Body weight 95.71 kg Rodger Davila Other [facility] Other 12-17-2021 13:02-0400 Body height 157.5 cm Andre Funes MD Work Phone: [facility] 12-17-2021 13:02-0400 Body temperature 97.59 [degF] Andre Funes MD Work Phone: [facility] 12-17-2021 13:02-0400 Body weight 97.98 kg Andre Funes MD Work Phone: [facility] 12-17-2021 13:02-0400 Diastolic blood pressure 83 mm[Hg] Andre Funes MD Work Phone: [facility] 12-17-2021 13:02-0400 Heart rate 92 /min Andre Funes MD Work Phone: [facility] 12-17-2021 13:02-0400 Respiratory rate 16 /min Andre Funes MD Work Phone: [facility] 12-17-2021 13:02-0400 SaO2% (BldA) [Mass fraction] 95 % Andre Funes MD Work Phone: [facility] 12-17-2021 13:02-0400 Systolic blood pressure 145 mm[Hg] Andre Funes MD Work Phone: [facility] Encounters Encounter Date Encounter Type Care Provider Facility Start: 10-25-2025 ambulatory OSMAN WILKINS Facility:[facility] Start: 10-30-2024 End: 10-30-2024 ambulatory ZE SOLIS Not Available Start: 10-30-2024 End: 10-30-2024 Bamboo flowsheet Ze Solis MD Work Phone: [facility] Start: 10-30-2024 End: 10-30-2024 Bamnathano flowsheet Ze Solis MD Work Phone: [facility] Start: 10-30-2024 End: 10-30-2024 Office outpatient visit 40 minutes Ze Solis MD Work Phone: [facility] Comment on above: Insulin long-term us e ([facility] (Primary Dx); Type 2 diabetes mellitus with hyperglycemia, unspecified whether [facility] [facility]); Vitamin D deficiency; Encounter for dietary consultation; High risk medication use; Primary hypertension ([facility]); Hypoglycemia; Microalbuminuria; Type 2 diabetes mellitus with hyperglycemia ([facility]); Acquired hypothyroidism ([facility]) Start: 10-25-2024 End: 10-25-2024 Clinisync Result Encounter Tj Dutton MD Work Phone: [facility] External Department Unsolicited Start: 10-25-2024 End: 10-25-2024 Clinisync Result Encounter Tj Dutton MD Work Phone: [facility] External Department Unsolicited Start: 10-19-2024 End: 10-19-2024 ambulatory OSMAN WILKINS Facility: [place] Start: 10-19-2024 End: 10-19-2024 Patient encounter procedure NGA WILKINS [facility] Start: 09-10-2024 End: 09-10-2024 Office outpatient visit 15 minutes Sabrina Pintooll [employer] Work Phone: [facility] Comment on above: Nonintractable episo dic headache, unspecified headache type (Primary Dx); Essential tremor; Cognitive dysfunction; Anxiety; CASSIE (obstructive sleep apnea); Imbalance Start: 09-10-2024 End: 09-10-2024 ambulatory SABRINA COX Not Available Start: 09-10-2024 End: 09-10-2024 Bamboo flowsheet Sabrina Cox [employer] Work Phone: [facility] Start: 09-10-2024 End: 09-10-2024 Bamboo flowsheet Sabrina Cox [employer] Work Phone: [facility] [place] Start: 09-03-2024 End: 09-03-[address] [facility] Start: 08-30-2024 End: 08-30-2024 Bamboo flowsheet Tj [...] Start: 08-16-2024 End: 08-16-2024 ambulatory Tj Dutton [facility] Work Phone: Start: 08-16-2024 End: 08-16-2024 Departed Referred Tj Dutton MD Work Phone: [facility] [place] Work Phone: Start: 07-30-2024 End: 07-30-2024 ambulatory GI ARRIAGA Not Available Start: 07-30-2024 End: 07-30-2024 Office outpatient visit 25 minutes Gi Arriaga [employer] Work Phone: [facility] Comment on above: CASSIE (obstructive sle ep apnea) (Primary Dx); Insomnia, unspecified type Start: 07-30-2024 End: 07-30-2024 Bamboo flowsheet Gi Arriaga [employer] Work Phone: [facility] Start: 07-30-2024 End: 07-30-2024 Bamboo flowsheet Gi Arriaga [employer] Work Phone: [facility] [place] Start: 07-02-2024 End: 07-02-2024 Bamboo flowsheet Ze Solis MD Work Phone: [facility] Start: 07-02-2024 End: 07-02-2024 Bamboo flowsheet Ze Solis MD Work Phone: [facility] Start: 07-02-2024 End: 07-02-2024 Office outpatient visit 25 minutes Ze Solis MD Work Phone: [facility] Comment on above: Type 2 diabetes [...] Telephone encounter Ze Solis MD Work Phone: [facility] Comment on above: Prior Authorization Start: 07-02-2024 End: 07-02-2024 ambulatory ZE SOLIS Not Available Start: 06-28-2024 End: 06-28-2024 Office outpatient visit 25 minutes Andre Funes MD Work Phone: Hematology/Oncology Comment on above: Cirrhosis of liver n ot due to alcohol (HCC) (Primary Dx); Biliary cirrhosis (HCC); MENDEZ (nonalcoholic steatohepatitis); Thrombocytopenia due to hypersplenism Start: 06-28-2024 End: 06-28-2024 ambulatory ANDRE FUNES Facility:[facility] Start: 06-26-2024 End: 06-27-2024 Telephone encounter Ze Solis MD Work Phone: [facility] Comment on above: Medication Problem Start: 06-12-2024 End: 06-12-2024 Social Work Jasmine NOE Work Phone: [facility] Comment on above: SAMUEL (generalized anx iety disorder) (CMS/HCC) Start: 06-08-2024 End: 06-08-2024 ambulatory OSMAN WILKINS Facility:[facility] Start: 06-08-2024 End: 06-08-2024 Patient encounter procedure NGA WILKINS [facility] Start: 05-29-2024 End: 05-29-2024 ambulatory TJ DUTTON Not Available Start: 05-29-2024 End: 05-29-2024 Office outpatient visit 25 minutes Tj [facility]utton MD [facility] Comment on above: LGSIL of cervix of u ndetermined significance (Primary Dx); HPV (human papilloma virus) infection; Cervical cancer screening; Screening for HPV (human papillomavirus); Other screening mammogram Start: 05-29-2024 End: 05-29-2024 Courtney Dutton MD Work Phone: [facility] Start: 05-29-2024 End: 05-29-2024 Courtney Dutton MD Work Phone: [facility] Start: 05-28-2024 End: 05-28-2024 ambulatory RAJAT AGUILAR Not Available Start: 05-28-2024 End: 05-28-2024 Office outpatient visit 15 minutes Rajat Aguilar NP Work Phone: [facility] [place] [facility] Comment on above: Essential tremor (Pr imary Dx); Cognitive dysfunction; Anxiety; Imbalance; Paresthesias Start: 05-28-2024 End: 05-28-2024 Bamboo ThinkSmartremigio Aguilar [employer] Work Phone: [facility] [place] [address] Start: 05-28-2024 End: 05-28-2024 Bamboo ThinkSmartheet Rajat Aguilar [employer] Work Phone: [facility] [place] [address] Start: 04-26-2024 End: 04-26-2024 Telephone encounter Luz Hamilton RN Hematology/Oncology Comment on above: US spleen order Start: 04-23-2024 End: 04-23-2024 Telephone encounter Luz Hamilton RN Hematology/Oncology Comment on above: Start: 04-04-2024 End: 04-04-2024 Bamboo flowsheet Jasmine Huynhion MASCARA MOLDER-S Work Phone: [facility] Start: 04-04-2024 End: 04-04-2024 Bamboo flowsheet Jasmine Peres Didion MASCARA MOLDER-S Work Phone: [facility] Start: 04-04-2024 End: 04-04-2024 Social Work Jasmine Peres Didion [employer] MOLDER-S Work Phone: [facility] Comment on above: SAMUEL (generalized anx iety disorder) (CMS/HCC) Start: 03-05-2024 End: 03-05-2024 Office outpatient visit 40 minutes Ze Solis MD Work Phone: [facility] Comment on above: Type 2 diabetes mauri itus with hyperglycemia, with long-term current use of insulin ([facility]) (Primary Dx); Insulin long-term use ([facility]); Vitamin D deficiency; Encounter for dietary consultation; High risk medication use; Primary hypertension ([facility]); Hypoglycemia; Class 2 severe obesity due to excess calories with serious comorbidity and body mass index (BMI) of 35.0 to 35.9 in adult ([facility]); Microalbuminuria; 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[facility]) Start: 03-05-2024 End: 03-05-2024 ambulatory ZE SOLIS Not Available Start: 03-01-2024 End: 03-01-2024 FoodFanheet Jasmine Peres Didion MASCARA MOLDER-S Work Phone: [facility] Start: 03-01-2024 End: 03-01-2024 StartupMojo Jasmine Peres Didion MASCARA MOLDER-S Work Phone: [facility] Start: 03-01-2024 End: 03-01-2024 Social Work Jasmine Peres Didion MAS[employer] MOLDER-S Work Phone: [facility] Comment on above: SAMUEL (generalized anx iety disorder) ([facility]) Start: 02-29-2024 End: 02-29-2024 ambulatory FRANCES-Larisa WILKINS Facility:[facility] Start: 02-29-2024 End: 02-29-2024 Patient encounter procedure NGA WILKINS [facility] Start: 02-14-2024 End: 02-14-2024 Office outpatient [...] End: 02-07-2024 Social Work Jasmine Peres Didion [employer] MOLDER-S Work Phone: [facility] Comment on above: SAMUEL (generalized anx iety disorder) ([facility]) Start: 02-07-2024 End: 02-07-2024 Bamboo flowsheet Jasmine C Didion [employer] MOLDER-S Work Phone: [facility] Start: 02-07-2024 End: 02-07-2024 Bamboo flowsheet Jasmine Peres Didion MAS[employer] MOLDER-S Work Phone: [facility] Start: 01-30-2024 End: 01-30-2024 Office outpatient visit 15 minutes Rajat Aguilar [employer] Work Phone: [facility] [place] [address] Comment on above: Essential tremor (Pr imary Dx); Cognitive dysfunction; Anxiety; Imbalance; Muscle cramping; CASSIE (obstructive sleep apnea) Start: 01-30-2024 End: 01-30-2024 ambulatory RAJAT AGUILAR Not Available Start: 01-30-2024 End: 01-30-2024 Bamboo flowsheet Rajat Aguilar [employer] Work Phone: [facility] [place] [address] Start: 01-30-2024 End: 01-30-2024 Bamboo flowsheet Rajat Aguilar [employer] Work Phone: [facility] [place] [address] Start: 01-10-2024 End: 01-10-2024 Social Work Jasmine Huynhion [employer] MOLDER-S Work Phone: [facility] Comment on above: SAMUEL (generalized anx iety disorder) ([facility]) Start: 01-10-2024 End: 01-10-2024 Bamboo flowsheet Jasmine C Didion [employer] MOL[employer]-S Work Phone: [facility] Start: 01-10-2024 End: 01-10-2024 Bamboo flowsheet Jasmine C Didion [employer] MOL[employer]-S Work Phone: [facility] Start: 01-02-2024 End: 01-02-2024 ambulatory PA-C NGA E JUANITO Facility:[facility] Start: 01-02-2024 End: 01-02-2024 Patient encounter procedure NGA Tano JUANITO [facility] Start: 12-19-2023 ambulatory PA-C NGA E JUANITO Facility:[facility] Start: 12-15-2023 End: 12-15-2023 ambulatory JASMINE DIDION Not Available Start: 12-05-2023 End: 12-05-2023 ambulatory PA-C NGA E JUANITO Facility:[facility] Start: 12-05-2023 End: 12-05-2023 Patient encounter procedure NGA E JUANITO [facility] Start: 11-28-2023 End: 11-28-2023 ambulatory PA-C NGA E JUANITO Facility:[facility] Start: 11-28-2023 End: 11-28-2023 Patient encounter procedure NGA E JUANITO [facility] Start: 11-21-2023 End: 11-21-2023 ambulatory PA-C NGA E JUANITO Facility:[facility] Start: 11-21-2023 End: 11-21-2023 Patient encounter procedure NGA E JUANITO [facility] [place] [employer] Start: 11-16-2023 End: 11-16-2023 ambulatory RAJAT AGUILAR Not Available Start: 11-14-2023 End: 11-14-2023 ambulatory PA-C NGA WILKINS Facility:[facility] Start: 11-14-2023 End: 11-14-2023 Patient encounter procedure NGA WILKINS [facility] [place] Start: 11-10-2023 End: 11-10-2023 ambulatory TAN SOTELO Not Available Start: 11-08-2023 End: 11-08-2023 ambulatory JASMINE URBAN Not Available Start: 11-07-2023 End: 11-07-2023 ambulatory PA-C NGA WILKINS Facility:[facility] Start: 11-07-2023 End: 11-07-2023 Patient encounter procedure NGA WILKINS [facility] [place] [employer] Start: 10-31-2023 End: 10-31-2023 ambulatory PA-C NGA WILKINS Facility:[facility] Start: 10-31-2023 End: 10-31-2023 Patient encounter procedure NGA WILKINS [facility] [place] Start: 06-23-2023 End: 06-23-2023 Office outpatient visit 15 minutes Andre Funes MD Work Phone: Hematology/Oncology Comment on above: MENDEZ (nonalcoholic s teatohepatitis) (Primary Dx); Cirrhosis of liver not due to alcohol (HCC); Thrombocytopenia due to hypersplenism; Thrombocytopenia (HCC); Diabetic gastroparesis (HCC) (HCC) Start: 06-22-2023 End: 06-22-2023 ambulatory Soheila Delgado Other [employer] Other Start: 06-22-2023 Telephone encounter Soheila Delgado [facility] Start: 05-03-2023 End: 05-03-2023 Patient encounter procedure NGA WILKINS [facility] [place] Start: 04-12-2023 End: 04-12-2023 ambulatory Rodger Davila Other [employer] Other Start: 04-12-2023 Telephone encounter Rodger cabrales [facility] Start: 04-05-2023 End: 04-05-2023 ambulatory Rodger Davila Other [employer] Other Start: 04-05-2023 Office outpatient vi sit 15 minutes Rodger Davila [facility] Start: 10-19-2022 End: 10-20-2022 ambulatory SHAKIRA RONALDO Facility:[facility] Start: 10-15-2022 ambulatory SHAKIRA RONALDO Facility: [facility] Start: 10-06-2022 End: 10-06-2022 ambulatory SHAKIRA RONALDO Facility:[facility] Start: 09-28-2022 End: 09-28-2022 ambulatory Rodger Davila Other [employer] Other Start: 09-28-2022 Office outpatient vi sit 15 minutes Rodger Davila [facility] Start: 06-25-2022 End: 06-25-2022 Office outpatient visit 15 minutes Andre Funes MD Work Phone: Hematology/Oncology Comment on above: Cirrhosis of liver n ot due to alcohol (HCC) (Primary Dx); MENDEZ (nonalcoholic steatohepatitis); Thrombocytopenia due to hypersplenism Start: 06-22-2022 End: 06-22-2022 ambulatory Rodger Davila Other [employer] Other Start: 06-22-2022 Office outpatient vi sit 15 minutes Rodger Davila [facility] Start: 06-10-2022 End: 06-11-2022 ambulatory SHAKIRAFABIENNE RUTHMER Facility:[facility] Start: 05-22-2022 End: 05-22-2022 ambulatory SHAKIRA RONALDO Facility:[facility] Start: 04-01-2022 End: 04-01-2022 ambulatory Rodger Davila Other [employer] Other Start: 04-01-2022 Telephone encounter Rodger Hyde [facility] Start: 03-16-2022 End: 03-16-2022 ambulatory SHAKIRA HIGGINS Facility:[facility] Start: 03-15-2022 End: 03-16-[address] DOCTOR [place] Facility:[facility] Start: 03-04-2022 End: 03-04-2022 ambulatory Rodger Davila Other [employer] Other Start: 03-04-2022 Office outpatient ne w [...] encounter procedure Andre Funes MD Work Phone: [place] Start: 11-25-2021 End: 11-26-2021 ambulatory SHAKIRA HIGGINS Facility:[facility] Start: 05-17-2021 End: 05-17-[address] JENNIFER TURNER Facility:[facility] Start: 08-05-2020 End: 08-05-2020 Patient encounter procedure External Provider [facility] Start: 08-05-2020 Results Only External [...] in Cervix by Cyto stain Jasmine Urban [employer]S Work Phone: Start: 05-20-2022 Mammography Jasmine Urban [employer] Work Phone: Start: 12-10-2020 Adult depression screening assessment Andre Funes MD Work Phone: Start: 09-24-2020 Esophagogastroduodenoscopy NGA Gao Comment on above: with Right Hemorrhoidectomy Start: 08-05-2020 EXTERNAL LAB External Provider Start: 04-09-2020 Colonoscopy Jasmine Urban [employer]OL[employer]S Work Phone: Start: 04-09-2020 Colonoscopy NGA JUANITO Bilateral tubal ligation SAMMY BARR JUANITO Bilateral tubal ligation SAMMY BARR JUANITO Bile duct stone removal MILTON IFKEN JUANITO Bile duct stone removal MILTON IFKEN JUANITO section NGA JUÁREZ RRY Laparoscopic cholecystectomy NGA WILKINS Tonsillectomy and adenoidectomy NGA WILKINS Plan of Treatment Date Care Activity Detail Author Start: 04-09-2030 Screening for malignant neoplasm of colon [facility] Start: 05-29-2029 Screening for malignant neoplasm of cervix [facility] Start: 05-24-2026 Screening for malignant neoplasm of cervix [facility] Start: 10-25-2025 Screening for malignant neoplasm of breast Mammogram [facility] Start: 06-25-2025 DIABETES SCREEN DIABETES SCREEN [facility] Start: 06-04-2025 End: 06-04-2025 Patient encounter procedure 06/04/2025 1:00 PM EST Office Visit [facility] [address] [place] [phone] Tj Dutton MD [address] [place] [address] [facility] Start: 05-29-2025 Screening for malignant neoplasm of breast Mammogram [facility] Start: 03-06-2025 End: 03-06-2025 Patient encounter procedure 03/06/2025 2:20 PM EDT Office Visit [facility] [address] [place] [phone] Ze Solis MD [address] [place] [address] [facility] Start: 03-05-2025 End: 03-05-2025 Patient encounter procedure 03/05/2025 1:30 PM EDT Office Visit [facility] [address] [place] [address] Tj Dutton MD [address] [place] [address] [facility] Start: 01-10-2025 End: 01-10-2025 Patient encounter procedure 01/10/2025 3:00 PM EDT Office Visit [facility] [address] [facility] [address] [place] [phone] Kenny Sabrina, [employer] READ[employer] TEACHER [address] [place] [phone] [facility] Start: 12-17-2024 DIABETES SCREEN DIABETES SCREEN [facility] Start: 10-30-2024 End: 10-30-2024 Patient encounter procedure 10/30/2024 2:00 PM EDT Office Visit [facility] [address] [place] [phone] Ze Solis MD [address] [place] [id number] [facility] Start: 10-30-2024 End: 10-30-2025 Thyrotropin [Units/volume] in Serum or Plasma TSH Lab Routine Acquired hypothyroidism (CMS/HCC) Expected: 10/30/2024 (Approximate), Expires: 10/30/2025 [facility] Comment on above: Expected: 10/30/2024 (Approximate), Expi res: 10/30/2025 Start: 10-30-2024 End: 10-30-2025 Thyroxine (T4) free [Mass/volume] in Serum or Plasma T4, free Lab Routine Acquired hypothyroidism (CMS/HCC) Expected: 10/30/2024 (Approximate), Expires: 10/30/2025 [facility] Comment on above: Expected: 10/30/2024 (Approximate), Expi res: 10/30/2025 Start: 10-30-2024 End: 10-30-2025 Triiodothyronine (T3) Free [Mass/volume] in Serum or Plasma T3, free Lab Routine Acquired hypothyroidism (CMS/HCC) Expected: 10/30/2024 (Approximate), Expires: 10/30/2025 [facility] Work Phone: Comment on above: Expected: 10/30/2024 (Approximate), Expi res: 10/30/2025 Start: 10-23-2024 End: 10-23-2024 Patient encounter procedure 10/23/2024 4:20 PM EDT Office Visit [facility] [address] [place] [phone] Gi Arriaga, ALLIE [address] [place] [facility] [place] Start: 10-22-2024 End: 07-26-2025 DBT [...] PM EST Visit (SP) Office Hematology/Oncology [address] [place] [address] Andre Funes MD [address] [place] [address] 1 year follow up with lab the same day Hematology/Oncology Comment on above: 1 year follow up with lab the same day Start: 06-28-2024 End: 06-28-2024 Patient encounter procedure 06/28/2024 2:00 PM EST Office Visit [facility] [address] [place] [address] [place] [id number] 1 year follow up with lab the same day [facility] Comment on above: 1 year follow up with lab the same day Start: 06-23-2024 End: 09-22-2024 [id number] [Mass/volume] in Serum or Plasma ALPHA FETOPROTEIN BL Lab Routine MENDEZ (nonalcoholic steatohepatitis) 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 Expected: 06/23/2024 (Approximate), Expires: 09/22/2024 [facility] Work Phone: Comment on above: Expected: 06/23/2024 (Approximate), Expi res: 09/22/2024 Start: 06-23-2024 End: 06-23-2024 CBC W Auto Differential panel - Blood CBC + DIFF Lab Routine MENDEZ (nonalcoholic steatohepatitis) 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 Expected: 06/23/2024 (Approximate), Expires: 06/23/2024 [facility] Work Phone: Comment on above: Expected: 06/23/2024 (Approximate), Expi res: 06/23/2024 Start: 06-23-2024 End: 06-23-2024 Cobalamin (Vitamin B12) [Mass/volume] in Serum or Plasma VITAMIN B12 BLOOD Lab Routine MENDEZ (nonalcoholic steatohepatitis) 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 Expected: 06/23/2024 (Approximate), Expires: 06/23/2024 [facility] Work Phone: Comment on above: Expected: 06/23/2024 (Approximate), Expi res: 06/23/2024 Start: 06-23-2024 End: 06-23-2024 Comprehensive metabolic 2000 panel - Serum or Plasma COMP METABOLIC PANEL Lab Routine MENDEZ (nonalcoholic steatohepatitis) 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 Expected: 06/23/2024 (Approximate), Expires: 06/23/2024 [facility] Work Phone: Comment on above: Expected: 06/23/2024 (Approximate), Expi res: 06/23/2024 Start: 06-23-2024 End: 06-23-2024 Ferritin [Mass/volume] in Serum or Plasma FERRITIN BLD Lab Routine MENDEZ (nonalcoholic steatohepatitis) 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 Expected: 06/23/2024 (Approximate), Expires: 06/23/2024 [facility] Work Phone: Comment on above: Expected: 06/23/2024 (Approximate), Expi res: 06/23/2024 Start: 06-23-2024 End: 06-23-2024 Folate [Mass/volume] in Serum or Plasma FOLATE SERUM Lab Routine MENDEZ (nonalcoholic steatohepatitis) 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 Expected: 06/23/2024 (Approximate), Expires: 06/23/2024 [facility] Work Phone: Comment on above: Expected: 06/23/2024 (Approximate), Expi res: 06/23/2024 Start: 06-23-2024 End: 06-23-2024 Iron and Iron binding capacity panel - Serum or Plasma IRON + TIBC Lab Routine MENDEZ (nonalcoholic steatohepatitis) 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 Expected: 06/23/2024 (Approximate), Expires: 06/23/2024 [facility] Work Phone: Comment on above: Expected: 06/23/2024 (Approximate), Expi res: 06/23/2024 Start: 06-12-2024 End: 06-12-2024 Social Work 06/12/2024 3:00 PM EST Social Work [facility] [address] [place] [address] Jasmine Urban LISW-S [address] [place] [address] [facility] Start: 05-29-2024 End: 05-29-2024 Patient encounter procedure 05/29/2024 2:45 PM EST Office Visit [facility] [address] [place] [address] Tj Dutton MD [address] [place] [address] [facility] Start: 05-28-2024 End: 05-28-2024 Patient encounter procedure 05/28/2024 2:40 PM EST Office Visit [facility] [place] [address] [place] [address] Rajat Aguilar NP [address] [place] [address] [facility] Start: 05-08-2024 End: 05-08-2024 Social Work 05/08/2024 3:00 PM EST Social Work [facility] [address] [place] [phone] Jasmine Urban, MASCARA MOLDER-S [address] [place] [address] [facility] Start: 04-04-2024 End: 04-04-2024 Social Work 04/04/2024 1:00 PM EST Social Work [facility] [address] [place] [phone] Jasmine Urban, MASCARA MOLDER-S [address] [place] [address] [facility] Start: 03-05-2024 End: 03-05-2024 Patient encounter procedure 03/05/2024 1:50 PM EDT Office Visit [facility] [address] [place] [address] Ze Solis MD [address] [place] [address] [facility] Start: 03-01-2024 End: 03-01-2024 Social Work [facility] Comment on above: Arrived Start: 02-14-2024 End: 02-14-2024 Patient encounter procedure [facility] [place] [address] [facility] Comment on above: Arrived Start: 02-07-2024 End: 02-07-2024 Social Work 02/07/2024 3:00 PM EDT Social Work [facility] [address] [place] [address] Jasmine Urban LISW-S [address] [place] [address] [facility] Start: 01-30-2024 End: 01-30-2024 Patient encounter procedure [facility] Comment on above: Arrived Start: 01-22-2024 Covid-19 Vaccine () Covid-19 Vaccine () [facility] Start: 01-22-2024 Influenza vaccination Influenza Vaccine (#1) [facility] Start: 06-25-2023 End: 06-25-2023 CBC W Auto Differential panel - Blood CBC + DIFF Lab Routine 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 Expected: 06/25/2023 (Approximate), Expires: 06/25/2023 [facility] Work Phone: Comment on above: Expected: 06/25/2023 (Approximate), Expi res: 06/25/2023 Start: 06-25-2023 End: 06-25-2023 Cobalamin (Vitamin B12) [Mass/volume] in Serum or Plasma VITAMIN B12 BLOOD Lab Routine 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 Expected: 06/25/2023 (Approximate), Expires: 06/25/2023 [facility] Work Phone: Comment on above: Expected: 06/25/2023 (Approximate), Expi res: 06/25/2023 Start: 06-25-2023 End: 06-25-2023 Comprehensive metabolic 2000 panel - Serum or Plasma COMP METABOLIC PANEL Lab Routine 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 Expected: 06/25/2023 (Approximate), Expires: 06/25/2023 [facility] Work Phone: Comment on above: Expected: 06/25/2023 (Approximate), Expi res: 06/25/2023 Start: 06-25-2023 End: 07-25-2023 Dup-scan artl patrick abdl/pel/scrot&/rpr orgn com US DOPPLER COMPLETE Radiology Routine 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 Expected: 06/25/2023 (Approximate), Expires: 07/25/2023 [facility] Work Phone: Comment on above: Expected: 06/25/2023 (Approximate), Expi res: 07/25/2023 Start: 06-25-2023 End: 06-25-2023 Ferritin [Mass/volume] in Serum or Plasma FERRITIN BLD Lab Routine 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 Expected: 06/25/2023 (Approximate), Expires: 06/25/2023 [facility] Work Phone: Comment on above: Expected: 06/25/2023 (Approximate), Expi res: 06/25/2023 Start: 06-25-2023 End: 06-25-2023 Folate [Mass/volume] in Serum or Plasma FOLATE SERUM Lab Routine 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 Expected: 06/25/2023 (Approximate), Expires: 06/25/2023 [facility] Work Phone: Comment on above: Expected: 06/25/2023 (Approximate), Expi res: 06/25/2023 Start: 06-25-2023 End: 06-25-2023 Iron and Iron binding capacity panel - Serum or Plasma IRON + TIBC Lab Routine 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 Expected: 06/25/2023 (Approximate), Expires: 06/25/2023 [facility] Work Phone: Comment on above: Expected: 06/25/2023 (Approximate), Expi res: 06/25/2023 Start: 06-25-2023 End: 07-25-2023 US ABD LIVER VASCULAR US ABD LIVER VASCULAR Radiology Routine 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 Expected: 06/25/2023 (Approximate), Expires: 07/25/2023 [facility] Work Phone: Comment on above: Expected: 06/25/2023 (Approximate), Expi res: 07/25/2023 Start: 05-23-2023 Depression Assessment Depression Assessment [facility] Start: 05-20-2023 Screening for malignant neoplasm of breast Mammogram [facility] Start: 02-24-2023 Screening for malignant neoplasm of colon [facility] Start: 06-19-2022 End: 08-19-2022 [id number] [Mass/volume] in Serum or Plasma ALPHA FETOPROTEIN BL Lab Routine 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) MENDEZ (nonalcoholic steatohepatitis) Expected: 06/19/2022 (Approximate), Expires: 08/19/2022 [facility] Work Phone: Comment on above: Expected: 06/19/2022 (Approximate), Expi res: 08/19/2022 Start: 06-19-2022 End: 12-17-2022 CBC W Auto Differential panel - Blood CBC + DIFF Lab Routine 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) MENDEZ (nonalcoholic steatohepatitis) Expected: 06/19/2022 (Approximate), Expires: 12/17/2022 [facility] Work Phone: Comment on above: Expected: 06/19/2022 (Approximate), Expi res: 12/17/2022 Start: 06-19-2022 End: 12-17-2022 Cobalamin (Vitamin B12) [Mass/volume] in Serum or Plasma VITAMIN B12 BLOOD Lab Routine 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) MENDEZ (nonalcoholic steatohepatitis) Expected: 06/19/2022 (Approximate), Expires: 12/17/2022 [facility] Work Phone: Comment on above: Expected: 06/19/2022 (Approximate), Expi res: 12/17/2022 Start: 06-19-2022 End: 12-17-2022 Comprehensive metabolic 2000 panel - Serum or Plasma COMP METABOLIC PANEL Lab Routine 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) MENDEZ (nonalcoholic steatohepatitis) Expected: 06/19/2022 (Approximate), Expires: 12/17/2022 [facility] Work Phone: Comment on above: Expected: 06/19/2022 (Approximate), Expi res: 12/17/2022 Start: 06-19-2022 End: 12-17-2022 Ferritin [Mass/volume] in Serum or Plasma FERRITIN BLD Lab Routine 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) MENDEZ (nonalcoholic steatohepatitis) Expected: 06/19/2022 (Approximate), Expires: 12/17/2022 [facility] Work Phone: Comment on above: Expected: 06/19/2022 (Approximate), Expi res: 12/17/2022 Start: 06-19-2022 End: 12-17-2022 Folate [Mass/volume] in Serum or Plasma FOLATE SERUM Lab Routine 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) MENDEZ (nonalcoholic steatohepatitis) Expected: 06/19/2022 (Approximate), Expires: 12/17/2022 [facility] Work Phone: Comment on above: Expected: 06/19/2022 (Approximate), Expi res: 12/17/2022 Start: 06-19-2022 End: 12-17-2022 Iron and Iron binding capacity panel - Serum or Plasma IRON + TIBC Lab Routine 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) MENDEZ (nonalcoholic steatohepatitis) Expected: 06/19/2022 (Approximate), Expires: 12/17/2022 [facility] Work Phone: Comment on above: Expected: 06/19/2022 (Approximate), Expi res: 12/17/2022 Start: 06-19-2022 End: 01-16-2023 Us abdominal real time w/image limited US ABD RT UPPER QUADRANT Radiology Routine 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) MENDEZ (nonalcoholic steatohepatitis) Expected: 06/19/2022 (Approximate), Expires: 01/16/2023 [facility] Work Phone: Comment on above: Expected: 06/19/2022 (Approximate), Expi res: 01/16/2023 Start: 05-23-2022 DEPRESSION ASSESSMENT DEPRESSION ASSESSMENT [facility] Start: 01-21-2022 Influenza vaccination INFLUENZA (#1) [facility] Start: 12-10-2021 Adult depression screening assessment DEPRESSION SCREENING [facility] Start: 09-29-2021 COVID-19 VACCINE (4 - Booster for Pfizer series) COVID-19 VACCINE (4 - Booster for Pfizer series) [facility] Start: 01-22-2020 Influenza vaccination INFLUENZA (#1) [facility] Start: 2020 RSV Vaccine (1 - 1-dose 60+ series) RSV Vaccine (1 - 1-dose 60+ series) [facility] Start: 2020 RSV Vaccine (1 - Risk 60-74 years 1-dose series) RSV Vaccine (1 - Risk 60-74 years 1-dose series) [facility] Start: 11-07-2017 HEPATITIS B (2 of 3 - Risk 3-dose series) HEPATITIS B (2 of 3 - Risk 3-dose series) [facility] Start: 11-07-2017 Hepatitis B Vaccine (2 of 3 - Risk 3-dose series) Hepatitis B Vaccine (2 of 3 - Risk 3-dose series) [facility] Start: 12-19-2014 Screening for malignant neoplasm of breast Mammogram Screening [facility] Start: 01-19-2010 Screening for malignant neoplasm of colon [facility] Start: 01-19-2010 SHINGRIX VACCINE (1 of 2) SHINGRIX VACCINE (1 of 2) [facility] Start: 01-06-2010 PNEUMOCOCCAL (2 - PCV) PNEUMOCOCCAL (2 - PCV) [facility] Start: 01-06-2010 Pneumococcal vaccination Pneumococcal Vaccine (2 of 2 - PCV) [facility] Start: 01-19-2005 COLOGUARD (FIT-DNA) COLOGUARD (FIT-DNA) [facility] Start: 01-19-2005 Colonoscopy COLONOSCOPY [facility] Start: 01-19-2005 COLORECTAL CANCER SCREENING COLORECTAL CANCER SCREENING [facility] Start: 01-19-[address] COLONOGRAPHY [facility] Start: 01-19-2005 DIABETES SCREEN DIABETES SCREEN [facility] Start: 01-19-2005 FECAL OCCULT BLOOD FECAL OCCULT BLOOD [facility] Start: 01-19-2005 LIPID SCREEN LIPID SCREEN [facility] Start: 01-19-2005 Screening for malignant neoplasm of colon [facility] Start: 01-19-2005 SIGMOIDOSCOPY SIGMOIDOSCOPY [facility] Start: 2000 Mammography MAMMOGRAM [facility] Start: 2000 Screening for malignant neoplasm of breast Mammogram Screening [facility] Start: 01-19-1990 HPV TESTING HPV TESTING [facility] Start: 01-19-1990 Screening for malignant neoplasm of cervix [facility] Start: 01-19-1981 PAP TESTING PAP TESTING [facility] Start: 01-19-1981 Screening for malignant neoplasm of cervix [facility] Start: 01-19-1979 Hepatitis A Vaccine (1 of 2 - Risk 2-dose series) Hepatitis A Vaccine (1 of 2 - Risk 2-dose series) [facility] Start: 01-19-1979 Urine microalbumin profile [facility] Start: 01-19-1978 Annual PCP Team Chronic Disease Visit Annual PCP Team Chronic Disease Visit [facility] Start: 01-19-1978 Anxiety Screening Anxiety Screening [facility] Start: 01-19-1978 Depression Screening Depression Screening [facility] Start: 01-19-1978 Hepatitis B surface antibody level LDL Cholesterol [facility] Start: 01-19-1978 HEPATITIS C SCREENING HEPATITIS C SCREENING [facility] Start: 01-19-1978 Hepatitis C screening Hepatitis C Screening [facility] Start: 01-19-1978 HIV SCREENING HIV SCREENING [facility] Start: 01-19-1978 HIV screening HIV Screening [facility] Start: 1972 Adult depression screening assessment DEPRESSION SCREENING [facility] Start: 01-19-1970 Diabetic foot examination Diabetic Foot Exam [facility] Start: 01-19-1970 Glaucoma screening Dilated Retinal Exam [facility] Start: 01-19-1970 Hepatitis B screening Urine Albumin:Creatinine Ratio [facility] Start: 01-19-1965 Hemoglobin A1c measurement HbA1C [facility] Start: 01-19-1961 HEPATITIS A (1 of 2 - Risk 2-dose series) HEPATITIS A (1 of 2 - Risk 2-dose series) [facility] Start: 1960 Screening for malignant neoplasm of colon [facility] End: 06-28-2025 CBC W Auto Differential panel - Blood COMPLETE BLOOD COUNT AND DIFFERENTIAL Lab Routine Biliary cirrhosis (HCC) MENDEZ (nonalcoholic steatohepatitis) 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 Every 6 months for 2 Occurrences starting 06/28/2024 until 06/28/2025 [facility] Work Phone: Comment on above: Every 6 months for 2 Occurrences startin g 06/28/2024 until 06/28/2025 End: 06-28-2025 Cobalamin (Vitamin B12) [Mass/volume] in Serum or Plasma VITAMIN B12 Lab Routine Biliary cirrhosis (HCC) MENDEZ (nonalcoholic steatohepatitis) 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 Every 6 months for 2 Occurrences starting 06/28/2024 until 06/28/2025 [facility] Comment on above: Every 6 months for 2 Occurrences startin g 06/28/2024 until 06/28/2025 End: 06-28-2025 Comprehensive metabolic 2000 panel - Serum or Plasma COMPREHENSIVE METABOLIC PANEL Lab Routine Biliary cirrhosis (HCC) MENDEZ (nonalcoholic steatohepatitis) 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 Every 6 months for 2 Occurrences starting 06/28/2024 until 06/28/2025 [facility] Comment on above: Every 6 months for 2 Occurrences startin g 06/28/2024 until 06/28/2025 End: 06-28-2025 Ferritin [Mass/volume] in Serum or Plasma FERRITIN Lab Routine Biliary cirrhosis (HCC) MENDEZ (nonalcoholic steatohepatitis) 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 Every 6 months for 2 Occurrences starting 06/28/2024 until 06/28/2025 [facility] Comment on above: Every 6 months for 2 Occurrences startin g 06/28/2024 until 06/28/2025 End: 06-28-2025 Folate [Mass/volume] in Serum or Plasma FOLATE, SERUM Lab Routine Biliary cirrhosis (HCC) MENDEZ (nonalcoholic steatohepatitis) 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 Every 6 months for 2 Occurrences starting 06/28/2024 until 06/28/2025 [facility] Comment on above: Every 6 months for 2 Occurrences startin g 06/28/2024 until 06/28/2025 IGP, APT HPV,RFX 16/18,45 IGP, APT HPV,RFX 16/18,45 Lab Routine Cervical cancer screening Screening for HPV (human papillomavirus) Ordered: 05/29/2024 [facility] Work Phone: Comment on above: Ordered: 05/29/2024 End: 06-28-2025 Iron and Iron binding capacity panel - Serum or Plasma IRON AND TIBC Lab Routine Biliary cirrhosis (HCC) MENDEZ (nonalcoholic steatohepatitis) 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 Every 6 months for 2 Occurrences starting 06/28/2024 until 06/28/2025 [facility] Comment on above: Every 6 months for 2 Occurrences startin g 06/28/2024 until 06/28/2025 End: 07-22-2024 US ABD RIGHT UPPER QUADRANT US ABD RIGHT UPPER QUADRANT Radiology Routine MENDEZ (nonalcoholic steatohepatitis) 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 1 Occurrences starting 06/23/2023 until 07/22/2024 [facility] Work Phone: Comment on above: 1 Occurrences starting 06/23/2023 until 07/22/2024 End: 07-28-2025 US Abdomen RUQ US ABD RIGHT UPPER QUADRANT Radiology Routine Biliary cirrhosis (HCC) MENDEZ (nonalcoholic steatohepatitis) 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 Every 6 months for 2 Occurrences starting 06/28/2024 until 07/28/2025 [facility] Comment on above: Every 6 months for 2 Occurrences startin g 06/28/2024 until 07/28/2025 End: 05-26-2025 US Spleen US ABD SPLEEN Radiology Routine Thrombocytopenia (HCC) Every 6 months for 3 Occurrences starting 04/26/2024 until 05/26/2025 [facility] Work Phone: Comment on above: Every 6 months for 3 Occurrences startin g 04/26/2024 until 05/26/2025 [facility] Immunizations Immunization Date Immunization Notes Care Provider Celeste fagan 03-23-2023 influenza virus vacc ine, unspecified formulation NGA WILKINS [facility] 03-17-2023 influenza virus vacc ine, unspecified formulation NGA WILKINS [facility] 03-24-2022 influenza virus vacc ine, unspecified formulation NGA WILKINS [facility] 03-24-2022 SARS-CoV-2 (COVID-19 ) [id number] NGA WILKINS [facility] 06-01-2021 influenza virus vacc ine, unspecified formulation NGA WILKINS [facility] 06-01-2021 Influenza, injectabl e, Madin Breann Canine Kidney, preservative free, quadrivalent Andre Funes MD Work Phone: [facility] 06-01-2021 SARS-CoV-2 (COVID-19 ) mRNA BNT-162b2 vax NGA WILKINS [facility] 09-09-2020 COVID-19 vaccine, ag e 12+ yr (PFIZER-BIONTECH - PURPLE TOP) Andre Funes MD Work Phone: [facility] Comment on above: Result Comment: most recent given 09/09/20 08-20-2020 COVID-19 vaccine, ag e 12+ yr (PFIZER-BIONTECH - PURPLE TOP) Andre Funes MD Work Phone: [facility] 06-04-2020 zoster vaccine recombinant Andre Funes MD Work Phone: [facility] 03-23-2020 zoster vaccine recombinant Andre Funes MD Work Phone: [facility] 02-14-2020 influenza virus vacc ine, unspecified formulation NGA JUANITO [facility] 02-14-2020 Influenza, injectabl e, Madin Breann Canine Kidney, preservative free, quadrivalent Andre Funes MD Work Phone: [facility] 06-05-2019 influenza virus vacc ine, unspecified formulation NGA WILKINS [facility] 06-05-2019 Influenza, injectabl e, Madin [place] Canine Kidney, preservative free, quadrivalent Andre Funes MD Work Phone: [facility] 05-21-2019 influenza virus vacc ine, unspecified formulation Andre Funes MD Work Phone: [facility] 05-21-2019 influenza, unspecifi ed formulation NGA WILKINS [facility] 04-19-2018 influenza virus vacc ine, unspecified formulation NGA JUANITO [facility] 04-19-2018 influenza, injectabl e, quadrivalent, preservative free Andre Funes MD Work Phone: [facility] 10-10-2017 hepatitis B vaccine, pediatric or pediatric/adolescent dosage Andre Funes MD Work Phone: [facility] 10-10-2017 hepatitis B vaccine, unspecified formulation Andre Funes MD Work Phone: [facility] 05-11-2017 hepatitis B vaccine, pediatric or pediatric/adolescent dosage Andre Funes MD Work Phone: [facility] 04-12-2017 hepatitis B vaccine, adult dosage Andre Funes MD Work Phone: [facility] 03-21-2017 influenza virus vacc ine, unspecified formulation NGA PAGERY [facility] 03-21-2017 influenza, injectabl e, quadrivalent, preservative free Andre Funes MD Work Phone: [facility] 04-12-2016 influenza virus vacc ine, unspecified formulation NGA JUANITO [facility] 04-12-2016 influenza, injectabl e, quadrivalent, preservative free Andre Funes MD Work Phone: [facility] 03-23-2014 influenza virus vacc ine, unspecified formulation Andre Funes MD Work Phone: [facility] 03-23-2014 influenza, unspecifi ed formulation NGA WILKINS [facility] 01-06-2009 pneumococcal polysaccharide vaccine, 23 valent Andre Fuens MD Work Phone: [facility] Payers Date Payer Category Payer Self-pay 2024 Private Health Insurance [facility] DAR L COMPLETE - MEDICAID [id number] 2024 Unknown [id number] 2022 Medicare (Managed Care) 1.2. [id number] 2022 Unknown [employer] D [employer] [id number] 2022-Present [address] [place] [id number] 2020 Medicare DEVOTED MEDICARE [employer] [id number] 2020-Present [phone] [address] [place] [address] HMO [id number] 2020 Medicare [id number]. [id number] 2020 Unknown [id number] 2020 Medicaid [id number] 2020 Medicaid [id number] [id number]. [id number] 2020 Medicare MEDICARE MEDICAR E A AND B [id number] 2020-Present [place] Medicare [id number] 1960 Unknown [id number] .16.840.1.985602.3.579.2. 593 1960 Unknown [id number] 2.16.840.1.231094.3.579.2. 732 1960 Unknown [id number] 2.16.840.1.811201.3.579.2. 593 1960 Unknown [id number] 2.16.840.1.098208.3.579.2. 593 1960 Unknown [id number] 2.16.840.1.118673.3.579.2. 593 1960 Unknown [id number] 2.16.840.1.689417.3.579.2. 593 1960 Unknown [id number] 2.16.840.1.253640.3.579.2. 593 1960 Unknown [id number] 2.16.840.1.847693.3.579.2. 593 1960 Unknown [id number] 2.16.840.1.113107.3.579.2. 593 1960 Unknown [id number] 2.16.840.1.537737.3.579.2. 593 1960 Unknown [id number] 2.16.840.1.757837.3.579.2. 593 1960 Unknown [id number] 2.16.840.1.762598.3.579.2. 593 1960 Unknown [id number] 2.16.840.1.777715.3.579.2. 593 1960 Unknown [id number] 2.16.840.1.637927.3.579.2. 727 1960 Unknown [id number] 2.16.840.1.743258.3.579.2. 727 1960 Unknown [id number] 2.16.840.1.466358.3.579.2. 727 1960 Unknown [id number] 2.16.840.1.961412.3.579.2. 727 1960 Unknown [id number] 2.16.840.1.167459.3.579.2. 727 1960 Unknown [id number] 2.16.840.1.674189.3.579.2. 727 1960 Unknown [id number] 2.16.840.1.333132.3.579.2. 727 1960 Unknown [id number] 2.16.840.1.286554.3.579.2. 727 1960 Unknown [id number] 2.16.840.1.865109.3.579.2. 727 1960 Unknown [id number] 2.16.840.1.063672.3.579.2. 1960 Unknown [id number] 2.16.840.1.085943.3.579.2. 72 1960 Unknown [id number] 2.16.840.1.707577.3.579.2. 1960 Unknown [id number] 2.16.840.1.494503.3.579.2. 1960 Unknown [id number] 2.16.840.1.281226.3.579.2. 1258 1960 Unknown [id number] 2.16.840.1.651399.3.579.2. 1258 1960 Unknown [id number] 2.16.840.1.199089.3.579.2. 1258 1960 Unknown [id number] 2.16.840.1.573297.3.579.2. 1258 1960 Unknown [id number] 2.16.840.1.037940.3.579.2. 1258 1960 Unknown [id number] 2.16.840.1.191224.3.579.2. 1258 1960 Unknown [id number] 2.16.840.1.862441.3.579.2. 1258 1960 Unknown [id number] 2.16.840.1.918011.3.579.2. 1258 1960 Unknown [id number] 2.16.840.1.570172.3.579.2. 1258 1960 Unknown [id number] 2.16.840.1.678753.3.579.2. 1258 1960 Unknown [id number] 2.16.840.1.253378.3.579.2. 1259 1960 Unknown [id number] 2.16.840.1.162007.3.579.2. 1258 1960 Unknown [id number] 2.16.840.1.642380.3.579.2. 9 1960 Unknown [id number] 2.16.840.1.638831.3.579.2. 1258 1960 Unknown [id number] 2.16.840.1.686363.3.579.2. 1258 1960 Unknown [id number] 2.16.840.1.283786.3.579.2. 1258 1960 Unknown [id number] 2.16.840.1.725634.3.579.2. 1258 1960 Unknown [id number] 2.840.1.064488.3.579.2. 1258 1960 Unknown [id number] 2.16840.1.331783.3.579.2. 1259 1959 Medicaid [id number] Unknown [id number] 2.840.1.355620.3.579.2. 531 Social History Date Type Detail Facility Tobacco smoking stat [facility] Unknown if ever smoked [facility] Start: 1960 Sex Assigned At Not on file C [facility] Start: 08-06-2020 End: 05-26-2023 Tobacco smoking status MSIS Smokes tobacco daily [facility] History of tobacco use Cigarette Smoker C [facility] Start: 08-06-2020 End: 09-10-2024 Cigarettes smoked current (pack per day) - Reported 0.5 [facility] Start: 08-06-2020 End: 05-26-2023 Tobacco use and exposure Smokeless tobacco non-user [facility] Start: 06-11-2021 End: 09-10-2024 Alcohol intake Ex-drinker (finding) [facility] Start: 12-07-2021 End: 12-17-2021 Exposure to SARS-CoV-2 (event) Not sure [facility] Start: 06-23-2023 End: 09-10-2024 Sex Assigned At [facility] History of tobacco use Passive smoker [facility] Start: 05-03-2023 End: 10-19-2024 Tobacco smoking status Heavy tobacco smoker (finding) [facility] Tobacco smoking status Never [facility] Start: 05-26-2023 Tobacco Comment Thinks about quittin g [facility] Start: 05-26-2023 Alcohol Comment caffeine 1-2 c ups/day; coffee [facility] Start: 07-19-2023 Tobacco smoking stat us NHIS Smoker (finding) [facility] Start: 08-17-2024 Sex Female (finding) [facility] Start: 1960 Sex Assigned At Female F [facility] Sexual Orientation [facility] Medical Equipment Procedure Code Equipment Code Equipment Origin al Text Equipment Identifier Dates [id number] Start: 07-14-2022 End: 03-05-2024 Functional Status Date Assessment Result Facility 06-08-2024 Functional Status N/A [facility] 02-29-2024 Functional Status N/A [facility] [facility] 01[facility]24 Functional Status N/A [facility] 12-05-2023 Functional Status N/A [facility] 11-28-2023 Functional Status N/A [facility] 11-21-2023 Functional Status N/A [facility] 11-14-2023 Functional Status N/A [facility] 05-03-2023 Functional Status N/A [facility] Clinical Notes 12-17-2021 to 10-30-2024 [...] Daily Myrbetriq 50 mg, Daily nystatin (Mycostatin) 868135 UNIT/GM powder Topical, 2 times daily, to [...] cholesterol (CMS/HCC) Hypoglycemia Hypothyroidism (CMS/HCC) Liver disease rn long term care (current) use of insulin (CMS/HCC) Memory changes [...] orders for this visit: Insulin long-term use ([facility]) Type 2 diabetes mellitus with hyperglycemia, unspecified whether penitentiary insulin use ([facility]) - POCT glucose manually resulted - POCT glycosylated hemoglobin (Hb A1C) docked device - insulin regular (HumuLIN R U-500 KWIKPEN) 500 UNIT/ML CONCENTRATED injection; INJECT 80 UNITS SUBCUTANEOUSLY TWICE A DAY We will continue his U500 60-20-20, Jardiance 25 mg once a day, Trulicity 3 mg once weekly. Vitamin D deficiency Encounter for dietary consultation High risk medication use Primary hypertension ([facility]) Hypoglycemia Microalbuminuria Type 2 diabetes mellitus with hyperglycemia ([facility]) - empagliflozin (Jardiance) 25 MG; Take 1 tablet (25 mg) by mouth Daily - insulin regular (HumuLIN R U-500 KWIKPEN) 500 UNIT/ML CONCENTRATED injection; INJECT 80 UNITS SUBCUTANEOUSLY TWICE A DAY Acquired hypothyroidism ([facility]) - T3, free; Future - T4, free; Future - TSH; Future We will check lab and adjust currently on levothyroxine 150 mcg daily. Follow up in about 4 months (around 03/01/2025). documented in this encounter [facility] 10-19-2024 Hospital Discharge instructions Patient Education 10/19/2024 [...] your health care provider. General instructions Take rugz-lhx-feqjjtl and prescription medicines only as told by [...] provider. Document Revised: 01/26/2021 Document Reviewed: 01/26/2021 valuescope Patient Education 2023 [employer]. Follow Up Care 06/08/2024 12:32:55 With:NGA WILKINS PA-C, URL Address: [address] [place] [address] When:Within 1 Year(s) [facility] 10-19-2024 Note Patient Education Obstetrics and [...] health care provider. General instructions ??? Take rffk-igb-skqdkjb and prescription medicines only as told by [...] drink, and whe (more content not included)... [facility] 09-10-2024 History of Present illness Narrative [...] not identified any triggers. Relieving factors include utia-myh-rzkpymt analgesics such as Aleve and rest. If [...] Use as instructed beta carotene 3 MG (31477 UT) capsule; Commonly known as: vitamin A Breztri Aerosphere 160-9-4.8 MCG/ACT aerosol; Generic drug: Nbnxdip-Phiqetjxqco-Bhcmytmghe cholecalciferol 200 Unit tablet split tablet; Commonly [...] hr tablet; Generic drug: mirabegron ER nystatin 796616 UNIT/GM powder; Commonly known as: Mycostatin; APPLY [...] cholesterol (CMS/HCC) Hypoglycemia Hypothyroidism (CMS/HCC) Liver disease rn long term care (current) use of insulin (CMS/HCC) Memory changes [...] extensors , and wrist flexor strength 5/5. Director Of Financial Aid strength 4+/5. LUE strength deltoid , biceps , triceps , wrist extensors , wrist flexor , and controlled atmospheric furnace brazer strength 5/5. RLE strength iliopsoas, quadriceps, tibialis [...] reflex 1+. LLE knee reflex 1+. Coordination: Eedsej-le-xbrs testing normal. Rapid alternating movements are normal. No bradykinesia. Gait: Normal. Review and summary of old records: MOCA score on 05/28/2024: with 3/5 recall. EMG of the BLE on 11/10/2023: Normal. Labs on 11/15/2023: CK, myoglobin, and magnesium unremarkable. MOCA score at [facility] on 08/16/2023: . Labs on 06/23/2023: CBC unremarkable, CMP demonstrates elevated glucose - unsure of fasting status, and mildly low sodium 133 (advised patient to review with PCP), vitamin B12 586. MRI brain w and w/o contrast at [facility] on 04/04/23: Within limitations of motion artifact which moderately limited multiple pulse sequences, no discrete acute intracranial abnormalities or abnormal intracranial enhancement identified. Mild chronic microvascular ischemic changes were noted. Labs at [facility] on 10/19/22: CBC generally unremarkable; CMP generally unremarkable (creatinine 1.04, GFR 54); CK 68; TSH decreased at 0.292; B12 912. MOCA score at [facility] on 03/09/22: . CT of [...] patient denies jaw pain, monocular vision loss, head/druze tenderness, or constitutional symptoms to suggest GCA. [...] later referred to complete neuropsych eval in [place], [place], but also chose not to proceed [...] new or worsening symptoms. Sabrina Cox NP [facility] Advanced Neurology documented in this encounter [facility] 09-03-2024 Note [place] [facility] - [facility] Subjective Renetta Barbosa is a [...] Tramadol Unknown Trazodone Medications Current Outpatient Medications: pkhdspynxj-tlvagcbp-mrddyowcfu (Breztri Aerosphere) 160-9-4.8 mcg/actuation HFA aerosol inhaler, [...] (ProtoNix) 40 mg (more content not included)... [facility] 08-30-2024 History of Present illness Narrative Images [...] Mammo: Done last year per pt @ [facility] Menopausal Medication and Allergies Medication Documentation Review Audit Reviewed by Elizabeth Ulrich MA (Diagram Clerk) on 08/30/24 at 1311 Medication Order Taking? Sig Documenting Provider Last Dose Status albuterol (ProAir RespiClick) 90 mcg/act breath-activated inhaler [id number] No every 4 (four) hours Tj Dutton MD Taking Active beta carotene (vitamin A) 3 MG (65190 UT) capsule [id number] No Take 10,000 Units by mouth in the morning. Tj Dutton MD Taking Active Breztri Aerosphere 160-9-4.8 MCG/ACT aerosol [id number] No INHALE 2 PUFFS TWICE A DAY DIRECTED 30 Tj Dutton MD Taking Active calcium carbonate (Os-Tanner) 1250 (500 Ca) MG tablet [id number] No Take by mouth Daily Tj Dutton MD Taking Active cholecalciferol (Vitamin D3) 200 Unit tablet split tablet [id number] No Take by mouth Daily Tj Dutton MD Taking Active clotrimazole (Lotrimin) 1 % cream [id number] No 1 application every 12 (twelve) hours Tj Dutton MD Taking Active Continuous Blood Gluc Sensor (FreeStyle Jeanne 2 Sensor) misc [id number] No USE DIRECTED Tj Dutton MD Taking Active cyanocobalamin (Vitamin B-12) 100 MCG tablet [id number] No Take 1,000 mcg by mouth in the morning. Tj Dutton MD Taking Active cycloSPORINE (Restasis) 0.05 % ophthalmic emulsion [id number] No every 12 (twelve) hours Tj Dutton MD Taking Active dicyclomine (Bentyl) 10 MG capsule [id number] No Take 10 mg by mouth in the morning and 10 mg at noon and 10 mg in the evening and 10 mg before bedtime. Rajat Aguilar NP Taking Active Patient not taking: Discontinued 08/30/24 1310 Dulaglutide (Trulicity) 3 MG/0.5ML solution auto-injector [id number] Inject 3 mg under the skin every 7 (seven) days Ze Solis MD Active estradiol (Yuvafem) 10 MCG tablet vaginal tablet [id number] INSERT 1 TABLET VAGINALLY TWO TIMES A WEEK FOR 90 DAYS Tj Dutton MD Active gabapentin (Neurontin) 300 MG capsule [id number] TAKE 1 CAPSULE BY MOUTH ONCE A DAY AT BEDTIME Rajat Aguilar NP Active glucagon (Gvoke HypoPen 2-Pack) 1 MG/0.2ML injection [id number] No Inject 1 mg under the skin 1 (one) time if needed Rajat Aguilar NP Taking Active insulin pen needle (B-D ULTRAFINE III SHORT PEN) 31G X 8 mm [facility] [id number] Use as instructed Ze Solis MD Active insulin regular (HumuLIN R U-500 KWIKPEN) 500 UNIT/ML CONCENTRATED injection [id number] INJECT 80 UNITS SUBCUTANEOUSLY TWICE A DAY Ze Solis MD Active Jardiance 25 MG [id number] TAKE 1 TABLET BY MOUTH EVERY DAY Ze Solis MD Active levothyroxine (Synthroid, Levoxyl) 150 MCG tablet [id number] No 1 (one) time each day at the same time Tj Dutton MD Taking Active loratadine (Claritin) 10 MG tablet [id number] Take by mouth Tj Dutton MD Active losartan (Cozaar) 100 MG tablet [id number] Rajat Aguilar NP Active magnesium 30 MG tablet [id number] Take 30 mg by mouth in the morning and 30 mg before bedtime. Tj Dutton MD Active Myrbetriq 25 MG 24 hr tablet [id number] Take 50 mg by mouth Daily Rajat Aguilar NP Active nystatin (Mycostatin) 612062 UNIT/GM powder [id number] APPLY TO AFFECTED AREA TWICE A DAY Tj Dutton MD Active pantoprazole (ProtoNix) 40 MG EC tablet [id number] No 1 (one) time each day at the same time Tj Dutton MD Taking Active pravastatin (Pravachol) 40 MG tablet [id number] No Take 40 mg by mouth at bedtime Rajat Aguilar NP Taking Active primidone (Mysoline) 50 MG tablet [id number] No TAKE 2 TABLETS BY MOUTH TWICE A DAY Tan Sotelo DO Taking Active thiamine (Vitamin B-1) 50 MG tablet [id number] No Take 50 mg by mouth in the morning. Tj Dutton MD Taking Active tiZANidine (Zanaflex) 4 MG tablet [id number] TAKE 1/2-1 TABLET BY MOUTH AT BEDTIME NEEDED Gi Arriaga NP Active triamcinolone (Kenalog) 0.1 % cream [id number] No Apply topically 2 (two) times a day to affected area Tj Dutton MD Taking Active venlafaxine XR (Effexor XR) 150 MG 24 hr capsule [id number] No Take 150 mg by mouth in the morning. Tj Dutton MD Taking Active Zinc Sulfate (ZINC 15 PO) [id number] Take by mouth Tj Dutton MD Active Allergies Allergen Reactions Capsaicin Tramadol Past Medical History: Diagnosis Date Abnormal Pap smear of vagina ADD (attention deficit disorder) Anxiety Autoimmune thyroiditis (CMS/HCC) COPD (chronic obstructive pulmonary disease) (CMS/HCC) Depression (CMS/HCC) Diabetes (CMS/HCC) Essential (primary) hypertension (CMS/HCC) GERD (gastroesophageal reflux disease) High cholesterol (CMS/HCC) Hypoglycemia Hypothyroidism (CMS/HCC) Liver disease penitentiary (current) use of insulin (CMS/HCC) Memory changes [...] encounter. documented in this encounter [facility] 07-02-2024 Telephone encounter Note Pt needs PA for Trulicity due to new ins at the beginning of the year. INS in chart. Thanks! [facility] 07-02-2024 Miscellaneous Notes Pt needs PA for Trulicity due to new ins at the beginning of the year. INS in chart. Thanks! documented in this encounter [facility] 07-02-2024 History of Present illness Narrative Renetta [...] Every 12 hours Continuous Blood Gluc Sensor (Zumperyle Jeanne 2 Sensor) misc USE DIRECTED cyanocobalamin [...] daily Myrbetriq 25 mg, Daily nystatin (Mycostatin) 848065 UNIT/GM powder Topical, 2 times daily, to [...] cholesterol (CMS/HCC) Hypoglycemia Hypothyroidism (CMS/HCC) Liver disease penitentiary (current) use of insulin (CMS/HCC) Memory changes [...] hyperglycemia, with long-term current use of insulin ([facility]) - POCT glucose manually resulted - POCT glycosylated hemoglobin (Hb A1C) docked device We will continue with U500 40 am and 60 units pm, and I gave her permission to adjust according to her meal size, continue Trulicity 3 mg once weekly, Jardiance 25 mg once. 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 documented in this encounter [facility] 06-28-2024 Instructions Chely Cantu - 06/28/2024 2:42 PM EST Anemia panel & AFP labs and US RUQ/Abdomen q 6 months with PCP RTC PRN documented in this encounter [facility] 06-28-2024 History of Present illness Narrative Images from the original note were not included. NAME: Renetta Barbosa [facility] NO.: [id number] DATE OF SERVICE: June 28, 2024 ([facility]) Some elements in this clinic note that [...] returns today in follow up. US in [facility] with enlarged nodular liver no masses. [...] iron studies have been drawn at [facility]. She states that she has bleeding hemorrhoids. [...] work-up with CT scans and ultrasounds from [facility]. I was also able to [...] Take 150 mg by mouth once daily. TheCommentor JEANNE 2 SENSOR kit bisacodyl EC (DULCOLAX) [...] (FLONASE) 50 mcg/actuation nasal spray Use 1 Scott in each nostril as needed. levothyroxine (SYNTHROID) [...] which included preparing to see the patient, spzk-pi-rhqb patient care, completing clinical documentation, performing a medically appropriate examination, counseling and educating the patient/family/caregiver, ordering medications, tests, or procedures, independently interpreting results (not separately reported), communicating results to the patient/family/caregiver, and care coordination (not separately reported). Andre Funes MD, CPE Hematology and Oncology Services Provided at: [place], [place] Scribe Attestation: This note was scribed [...] direction. CC: Shakira Higgins CNP [address] [facility] [id number] documented in this encounter [facility] 06-28-2024 Note HNO ID: [id number] Author: ANDRE FUNES MD Service: ? Author Type: Physician Type: Progress Notes Filed: 06/28/2024 15:34 Note Text: NAME: Renetta Barbosa CLINIC NO.: [id number] DATE OF SERVICE: June 28, 2024 ([place]) [...] returns today in follow up. US in [facility] with enlarged nodular liver no masses. [...] taken once daily. (more content not included)... [facility] 06-26-2024 Telephone encounter Note Michael DANIELS please and thank you. [facility] 06-26-2024 Miscellaneous Notes Michael DANIELS please and thank you. documented in this encounter [facility] 06-08-2024 Hospital Discharge instructions Patient Education 06/08/2024 [...] your health care provider. General instructions Take axqp-fte-eyjnlyn and prescription medicines only as told by [...] provider. Document Revised: 01/26/2021 Document Reviewed: 01/26/2021 valuescope Patient Education 2023 [employer]. Follow Up Care 04/27/2024 12:54:51 With:JUANITO BREWER, NGA Freedman, URL Address: [address] [place] [address] When:Within 3 Month(s) [facility] Note Patient Education Obstetrics and Gynecology [...] health care provider. General instructions ??? Take lcxp-ibg-couizsz and prescription medicines only as told by [...] drink, and whe (more content not included)... [facility] 05-29-2024 History of Present illness Narrative [...] Mammo: Done last year per pt @ [facility] Menopausal Medication and Allergies Medication Documentation Review Audit Reviewed by Elizabeth Ulrich MA (Diagram Clerk) on 05/29/24 at 1452 Medication Order Taking? Sig Documenting Provider Last Dose Status albuterol (ProAir RespiClick) 90 mcg/act breath-activated inhaler [id number] every 4 (four) hours Tj Dutton MD Active Patient not taking: Discontinued 05/29/24 1450 beta carotene (vitamin A) 3 MG (66151 UT) capsule [id number] Take 10,000 Units by mouth in the morning. Tj Dutton MD Active Breztri Aerosphere 160-9-4.8 MCG/ACT aerosol [id number] INHALE 2 PUFFS TWICE A DAY DIRECTED 30 Tj Dutton MD Active calcium carbonate (Os-Tanner) 1250 (500 Ca) MG tablet [id number] Take by mouth Daily Tj Dutton MD Active Patient not taking: Discontinued 05/29/24 1451 cholecalciferol (Vitamin D3) 200 Unit tablet split tablet [id number] Take by mouth Daily Tj Dutton MD Active clotrimazole (Lotrimin) 1 % cream [id number] 1 application every 12 (twelve) hours Tj Dutton MD Active Continuous Blood Gluc Sensor (FreeStyle Jeanne 2 Sensor) [facility] [id number] USE DIRECTED Tj Dutton MD Active cyanocobalamin (Vitamin B-12) 100 MCG tablet [id number] Take 1,000 mcg by mouth in the morning. Tj Dutton MD Active cycloSPORINE (Restasis) 0.05 % ophthalmic emulsion [id number] every 12 (twelve) hours Tj Dutton MD Active dicyclomine (Bentyl) 10 MG capsule [id number] Take 10 mg by mouth in the morning and 10 mg at noon and 10 mg in the evening and 10 mg before bedtime. Rajat Aguilar NP Active doxepin (SINEquan) 10 MG capsule [id number] TAKE 1-2 CAPSULES BY MOUTH EVERYDAY AT BEDTIME Mary Allen DO Active Patient not taking: Discontinued 05/29/24 1451 Dulaglutide (Trulicity) 3 MG/0.5ML solution auto-injector [id number] INJECT 3 MG SUBCUTANEOUSLY WEEKLY Ze Solis MD Active estradiol (Vagifem) 10 MCG tablet vaginal tablet [id number] 1 tablet Vaginal Two times a Week for 90 days jT Dutton MD Active gabapentin (Neurontin) 300 MG capsule [id number] TAKE 1 CAPSULE BY MOUTH ONCE A DAY AT BEDTIME Rajat Aguilar NP Active glucagon (Gvoke HypoPen 2-Pack) 1 MG/0.2ML injection [id number] Inject 1 mg under the skin 1 (one) time if needed Rajat Aguilar NP Active insulin pen needle (B-D ULTRAFINE III SHORT PEN) 31G X 8 mm [facility] [id number] Use as instructed Ze Solis MD Active insulin regular (HumuLIN R U-500 KWIKPEN) 500 UNIT/ML CONCENTRATED injection [id number] INJECT 80 UNITS SUBCUTANEOUSLY TWICE A DAY Ze Solis MD Active Jardiance 25 MG [id number] TAKE 1 TABLET BY MOUTH EVERY DAY Ze Solis MD Active levothyroxine (Synthroid, Levoxyl) 150 MCG tablet [id number] 1 (one) time each day at the same time Tj Dutton MD Active loratadine (Claritin) 10 MG tablet [id number] Take by mouth Tj Dutton MD Active Patient not taking: Discontinued 05/29/24 1451 losartan (Cozaar) 50 MG tablet [id number] TAKE 1 TABLET BY MOUTH EVERY DAY FOR 30 DAYS Rajat Aguilar NP Active Patient not taking: Discontinued 05/29/24 1450 magnesium 30 MG tablet [id number] Take 30 mg by mouth in the morning and 30 mg before bedtime. Tj Dutton MD Active Myrbetriq 25 MG 24 hr tablet [id number] Take 25 mg by mouth Daily Rajat Aguilar NP Active nystatin (Mycostatin) 415893 UNIT/GM powder [id number] APPLY TO AFFECTED AREA TWICE A DAY Tj Dutton MD Active pantoprazole (ProtoNix) 40 MG EC tablet [id number] 1 (one) time each day at the same time Tj Dutton MD Active pravastatin (Pravachol) 40 MG tablet [id number] Take 40 mg by mouth at bedtime Rajat Aguilar NP Active primidone (Mysoline) 50 MG tablet [id number] TAKE 2 TABLETS BY MOUTH TWICE A DAY Tan Sotelo DO Active thiamine (Vitamin B-1) 50 MG tablet [id number] Take 50 mg by mouth in the morning. Tj Dutton MD Active triamcinolone (Kenalog) 0.1 % cream [id number] Apply topically 2 (two) times a day to affected area Tj Dutton MD Active venlafaxine XR (Effexor XR) 150 MG 24 hr capsule [id number] Take 150 mg by mouth in the morning. Tj Dutton MD Active Zinc Sulfate (ZINC 15 PO) [id number] Take by mouth Tj Dutton MD Active Patient not taking: Discontinued 05/29/24 1451 Allergies Allergen Reactions Capsaicin Tramadol Past Medical History: Diagnosis Date Abnormal Pap smear of vagina ADD (attention deficit disorder) Anxiety Autoimmune thyroiditis (CMS/HCC) COPD (chronic obstructive pulmonary disease) (CMS/HCC) Depression (CMS/HCC) Diabetes (CMS/HCC) Essential (primary) hypertension (CMS/HCC) GERD (gastroesophageal reflux disease) High cholesterol (CMS/HCC) Hypoglycemia Hypothyroidism (CMS/HCC) Liver disease penitentiary (current) use of insulin (CMS/HCC) Memory changes [...] Yes documented in this encounter [facility] 05-28-2024 History of Present illness Narrative Images [...] cholesterol (CMS/HCC) Hypoglycemia Hypothyroidism (CMS/HCC) Liver disease rn long term care (current) use of insulin (CMS/HCC) Memory changes MENDEZ (nonalcoholic steatohepatitis) Osteoarthritis Thyroid disorder (CMS/HCC) Type 2 diabetes mellitus with hyperglycemia ([facility]) Vitamin D deficiency, unspecified Past Surgical [...] wrist extensors , wrist flexor 5/5 , controlled atmospheric furnace brazer strength 4/5. LUE Strength deltoid , biceps , triceps , wrist extensors , wrist flexor , controlled atmospheric furnace brazer strength 5/5. RLE Strength illopsoas, quadriceps, tibialis [...] knee reflex 1+. Batista's Sign negative. Coordination: Xhlwxl-wj-rfce testing is normal Rapid alternating movements are [...] review with PCP), B12 586 MOCA at [facility] on 08/16/23: MRI brain w and w/o contrast at [facility] on 04/04/23: Within limitations of motion artifact which moderately limited multiple pulse sequences, no discrete acute intracranial abnormalities or abnormal intracranial enhancement identified. Mild chronic microvascular ischemic changes were noted. Labs at [facility] on 10/19/22: CBC generally unremarkable; CMP generally unremarkable (creatinine 1.04, GFR 54); CK 68; TSH decreased at 0.292; B12 912 MOCA at [facility] on 03/09/22: CT of the [...] right wrist and thumb pain with decreased controlled atmospheric furnace brazer strength notable on clinical exam. While changes [...] instructions documented in this encounter [facility] 04-26-2024 Telephone encounter Note [facility] needs additional order for US to include the spleen with her abdomen US every 6 months. The other US Abd will not include the spleen. If needed each time, will need 2 orders sent each time. Fax to US directly: [phone] Mio: please review and sign Luz Hamilton RN [facility] 04-26-2024 Miscellaneous Notes [facility] needs additional order for US to include the spleen with her abdomen US every 6 months. The other US Abd will not include the spleen. If needed each time, will need 2 orders sent each time. Fax to US directly: [phone] Mio: please review and sign Luz Hamilton RN documented in this encounter [facility] 04-23-2024 Telephone encounter Note Pt calling to [...] will allow her. Mio: TOYIN Hamilton RN [facility] 04-23-2024 Miscellaneous Notes Pt calling to ask [...] complete early, if insurance will allow her. Imo: TOYIN Hamilton RN documented in this encounter [facility] 03-05-2024 History of Present illness Narrative Renetta [...] 30 mg, 2 times daily nystatin (Mycostatin) 794109 UNIT/GM powder APPLY TO AFFECTED AREA TWICE [...] cholesterol (CMS/HCC) Hypoglycemia Hypothyroidism (CMS/HCC) Liver disease rn long term care (current) use of insulin (CMS/HCC) Memory changes [...] hyperglycemia, with long-term current use of insulin ([facility]) - POCT glucose manually resulted - [...] Jardiance 25 mg once Insulin long-term use ([facility]) Vitamin D deficiency Encounter for dietary consultation High risk medication use Primary hypertension ([facility]) Hypoglycemia Class 2 severe obesity due to excess calories with serious comorbidity and body mass index (BMI) of 35.0 to 35.9 in adult ([facility]) Diet and exercise reviewed with the patient Microalbuminuria Continue with Cozaar 25 mg Hypothyroidism, primary Continue levothyroxine 150 mcg Follow up in about 4 months (around 07/06/2024). documented in this encounter [facility] 03-01-2024 History of Present illness Narrative SW [...] behaviors. documented in this encounter [facility] 02-29-2024 Hospital Discharge instructions Patient Education 02/29/2024 [...] your health care provider. General instructions Take ewgq-rxh-whzwgqg and prescription medicines only as told by [...] provider. Document Revised: 01/26/2021 Document Reviewed: 01/26/2021 ElseAnatexis Patient Education 2023 [employer]. Follow Up Care 01/02/2024 12:35:13 With:NGA WILKINS PA-C, URL Address: [address] [place] [id number] When:3 months [facility] [place] 02-29-2024 Note Patient Education Obstetrics and [...] health care provider. General instructions ? Take jtzm-kqb-lxnvzjm and prescription medicines only as told by [...] your health care (more content not included)... [facility] 02-14-2024 History of Present illness Narrative [...] would go to her daughter's house in [place] but she once forgot it there so [...] 10 MG capsule; 1-2 po q hs CSASIE (obstructive sleep apnea) Hypersomnia Obesity due to [...] was councelled on the risks of stroke, IA, and sudden with CASSIE, along with the [...] months documented in this encounter [facility] 01-30-2024 History of Present illness Narrative Images from the original note were not included. Chief Complaint Patient presents with Tremors Anxiety Cognitive concern Subjective Renetta Barbosa, 64 y.o., female The patient presents today for follow up. She again denies neuropsych evaluation in [place]. She drives without safety concerns. Denies getting [...] , wrist extensors , wrist flexor , controlled atmospheric furnace brazer strength 5/5. LUE Strength deltoid , biceps , triceps , wrist extensors , wrist flexor , controlled atmospheric furnace brazer strength 5/5. RLE Strength illopsoas, quadriceps, tibialis [...] knee reflex 1+. Batista's Sign negative. Coordination: Kovfts-sa-bfrc testing is normal Rapid alternating movements are normal Gait: Normal Review and summary of old records: EMG of the BLE on 11/10/2023: Normal EMG. Labs on 11/15/2023: CK, myoglobin, magnesium are unremarkable Labs on 06/23/23: CBC unremarkable, CMP demonstrates elevated glucose - unsure of fasting status, and mildly low sodium 133 (advised patient to review with PCP), B12 586 MOCA at [facility] on 08/16/23: MRI brain w and w/o contrast at [facility] on 04/04/23: Within limitations of motion artifact which moderately limited multiple pulse sequences, no discrete acute intracranial abnormalities or abnormal intracranial enhancement identified. Mild chronic microvascular ischemic changes were noted. Labs at [facility] on 10/19/22: CBC generally unremarkable; CMP generally unremarkable (creatinine 1.04, GFR 54); CK 68; TSH decreased at 0.292; B12 912 MOCA at [facility] on 03/09/22: CT of the [...] for neuropsych evaluation to [place] (She did [facility] multiple appointments with Dr. Siegel). Contact [...] HPI documented in this encounter [facility] 01-02-2024 Hospital Discharge instructions Patient Education 01/02/2024 [...] your health care provider. General instructions Take tgej-jpm-qmmfvcr and prescription medicines only as told by [...] provider. Document Revised: 01/26/2021 Document Reviewed: 01/26/2021 valuescope Patient Education 2022 [employer]. Follow Up Care 10/31/2023 12:01:52 With:JUANITO BREWER, NGA Freedman, URL Address: [address] [place] [address] When:3 months [facility] 01-02-2024 Note Patient Education Obstetrics and Gynecology [...] health care provider. General instructions ? Take yfcw-ddx-ikcxcgu and prescription medicines only as told by [...] your health care (more content not included)... [facility] 12-05-2023 Hospital Discharge instructions Patient Education [...] provider. Document Revised: 09/17/2021 Document Reviewed: 09/17/2021 valuescope Patient Education 2022 [employer]. Follow Up Care 11/14/2023 12:46:23 With:JUANITO BREWER, NGA Freedman, URL Address: [address] [place] [address] When:Within 2 Week(s) [facility] [place] 12-05-2023 Note Patient Education Obstetrics and [...] provider. Document Revised: 09/17/2021 Document Reviewed: 09/17/2021 valuescope Patient Education ? 2022 [employer]. [facility] 11-28-2023 Hospital Discharge instructions Patient Education [...] provider. Document Revised: 09/17/2021 Document Reviewed: 09/17/2021 valuescope Patient Education 2022 [employer]. Follow Up Care 09/14/2023 15:08:51 With:NGA WILKINS PA-C, URL Address: [address] [place] [address] When: Unknown [facility] [place] 11-28-2023 Note Patient Education Obstetrics and [...] provider. Document Revised: 09/17/2021 Document Reviewed: 09/17/2021 ElseAnatexis Patient Education ? 2022 [employer]. [facility] 11-21-2023 Hospital Discharge instructions Patient Education [...] your health care provider. General instructions Take nomr-imj-pgbzmqc and prescription medicines only as told by [...] provider. Document Revised: 01/26/2021 Document Reviewed: 01/26/2021 valuescope Patient Education 2022 [employer]. Follow Up Care 09/14/2023 15:07:45 With:JUANITO BREWER, NGA Freedman, URL Address: [address] [place] [address] When:Within 1 Week(s) [facility] [place] 11-21-2023 Note Patient Education Obstetrics and [...] health care provider. General instructions ? Take xycz-ciq-fssuysi and prescription medicines only as told by [...] your health care (more content not included)... [facility] 11-14-2023 Hospital Discharge instructions Patient Education [...] your health care provider. General instructions Take rbbl-yve-uliidct and prescription medicines only as told by [...] provider. Document Revised: 01/26/2021 Document Reviewed: 01/26/2021 valuescope Patient Education 2022 [employer] Inc. Follow Up Care 09/14/2023 15:06:58 With:NGA WILKINS PA-C, URL Address: [address] [address] When:Within 1 Week(s) [facility] [place] 06-23-2023 Instructions GeraldEkaterinara - 06/23/2023 2:19 [...] prior to return documented in this encounter [facility] 06-23-2023 History of Present illness Narrative Images from the original note were not included. NAME: Renetta Barbosa CLINIC NO.: [id number] DATE OF SERVICE: June 23, 2023 ([facility]) Some elements in this clinic note that [...] returns today in follow up. US in [facility] with enlarged nodular liver no masses. [...] iron studies have been drawn at [facility]. She states that she has bleeding hemorrhoids. [...] work-up with CT scans and ultrasounds from [facility]. I was also able to [...] (FLONASE) 50 mcg/actuation nasal spray Use 1 Scott in each nostril as needed. furosemide (LASIX) [...] which included preparing to see the patient, gokt-ag-avlg patient care, completing clinical documentation, performing a medically appropriate examination and ordering medications, tests, or procedures. Andre Funes MD, CPE Hematology and Oncology Services Provided at: [place], [place] Scribe Attestation: This note was scribed [...] and under my direction. CC: Shakira Higgins, [employer] [address] [address] documented in this encounter [facility] 05-03-2023 Hospital Discharge instructions Patient [...] your health care provider. General instructions Take golz-ndd-gawhbct and prescription medicines only as told by [...] provider. Document Revised: 01/26/2021 Document Reviewed: 01/26/2021 valuescope Patient Education 2022 [employer]ia. Follow Up Care 03/22/2023 12:50:20 With:[facility] Address: [address] [place] [address]. [place] [address] Business (1) When: Unknown Comments:our prepared foods production team member will be contacting you for follow-up [facility] Ramos 04-05-2023 Evaluation note Encounter Date Diagnosis Assessment Notes Mar, GERD (gastroesopha geal reflux disease) (ICD-10 - K21.9) Stop pantoprazole Rto 3 months Mar, Abdominal pain (ICD-10 - R10.9) Mar, Diarrhea (ICD-10 - R19.7) Mar, Nausea (ICD-10 - R11.0) [facility] Other 05-09-2023 Evaluation note* Encounter Date Diagnosis Assessment Notes Treatment Notes Treatment Clinical Notes September, Abdominal pain (ICD-10 - R10.9) September, Diarrhea (ICD-10 - R19.7) Patient states she goes back and fourth between diarrhea and constipation. September, GERD (gastroesophageal reflux disease) (ICD-10 - K21.9) [facility] Other 02-03-2023 Instructions* Patient Instructions* Andre Funes [...] Liver prior to [facility] History of Present illness Narrative* Andre Funes MD - 06/25/2022 2:01 PM EST Images from the original note were not included. NAME: Renetta Barbosa CLINIC NO.: [id number] DATE OF SERVICE: June 25, 2022 ([facility]) [...] iron studies have been drawn at [facility]. She states that she has bleeding hemorrhoids. [...] work-up with CT scans and ultrasounds from [facility]. I was also able to [...] (FLONASE) 50 mcg/actuation nasal spray Use 1 Scott in each nostril as needed. furosemide (LASIX) [...] which included preparing to see the patient, bcsw-ia-ekza patient care, completing clinical documentation, performing a medically appropriate examination and ordering medications, tests, or procedures. Andre Funes MD, CPE [place], [place] CC: Shakira Higgins CNP [address] [address] [facility]* Encounter Date Diagnosis Assessment Notes Treatment Notes Treatment Clinical Notes May, Abdominal pain (ICD-10 - R10.9) Stop Atorvastatin & Metformin for 1 month RTO 1 month May, Diarrhea (ICD-10 - R19.7) May, GERD (gastroesophageal reflux disease) (ICD-10 - K21.9) [facility] Other 11-10-2022 Evaluation note* Encounter Date Diagnosis Assessment Notes Treatment Notes Treatment Clinical Notes Mar, Abdominal pain (ICD-10 - R10.9) [facility] Other 10-13-2022 Evaluation note* Encounter Date Diagnosis Assessment Notes Treatment Notes Treatment Clinical Notes Feb, GERD (gastroesophageal reflux disease) (ICD-10 - K21.9) CONTINUE PANTOPRAZOLE 40 MG DAILY Feb, Abdominal pain (ICD-10 - R10.9) RTO 6 WEEKS COPY OF LOW FODMAP DIET GIVEN TO PATIENT Feb, Diarrhea (ICD-10 - R19.7) START WOOTEN [facility] [facility] Other 07-28-2022 History of Present illness Narrative* Andre Funes MD - 12/17/2021 2:15 PM EDT Images from the original note were not included. NAME: Renetta Barbosa CLINIC NO.: [id number] DATE OF SERVICE: December 17, 2021 Some [...] iron studies have been drawn at [facility]. She states that she has bleeding hemorrhoids. [...] work-up with CT scans and ultrasounds from [facility]. I was also able to [...] petechiae. ALLERGIES: ALLERGIES No Known Allergies MEDICATIONS: APERA BAGSE 2 SENSOR kit busPIRone (BUSPAR) 10 mg [...] (FLONASE) 50 mcg/actuation nasal spray Use 1 Scott in each nostril as needed. furosemide (LASIX) [...] which included preparing to see the patient, djqm-ln-vbln patient care, completing clinical documentation, performing a medically appropriate examination and ordering medications, tests, or procedures. Andre Funes MD, [place], [place] CC: Shakira Higgins, SO[employer] MIXER [address] [address] [facility] note No data available for this section [facility] evaluation + Plan note Future Appointments Appointment Date:11/07/2023 11:20:00 AM Scheduled Provider:NGA WILKINS PA-C Location:[facility] Appointment Type:URO Procedure 30 min Appointment Date:11/14/2023 11:20:00 AM Scheduled Provider:NGA WILKINS PA-C [facility] Appointment Type:URO Procedure 30 min Appointment Date:11/30/2023 11:20:00 AM Scheduled Provider:NGA WILKINS PA-C Location:[facility] [place] Appointment Type:URO Procedure 30 min Appointment Date:12/07/2023 11:20:00 AM Scheduled Provider:NGA WILKINS PA-C [facility] Appoint[facility] Type:URO Procedure 30 min Appointment Date:12/28/2023 11:20:00 AM Scheduled Provider:NGA WILKINS PA-C [facility] [place] Appointment Type:URO Procedure 30 min Appointment Date:01/04/2024 11:20:00 AM Scheduled Provider:NGA WILKINS PA-C Location:[facility] Appointment Type:URO Procedure 30 min [facility] [place] Evaluation + Plan note Future Appointments Appointment Date:11/14/2023 11:20:00 AM Scheduled Provider:NGA WILKINS PA-C Location:[facility] [place] Appointment Type:URO Procedure 30 min Appointment Date:11/21/2023 11:20:00 AM Scheduled Provider:NGA WILKINS PA-C Location:[facility] [place] Appointment Type:URO Procedure 30 min Appointment Date:11/28/2023 11:20:00 AM Scheduled Provider:NGA WILKINS PA-C Location:[facility] [place] Appointment Type:URO Procedure 30 min Appointment Date:12/19/2023 11:20:00 AM Scheduled Provider:NGA WILKINS PA-C Location:[facility] [place] Appointment Type:URO Procedure 30 min Appointment Date:01/02/2024 11:20:00 AM Scheduled Provider:NGA WILKINS PA-C Location:[facility] Appointment Type:URO Procedure 30 min [facility] [place] Evaluation + Plan note Future Appointments Appointment Date:11/21/2023 11:20:00 AM Scheduled Provider:NGA WILKINS PA-C Location:[facility] Appointment Type:URO Procedure 30 min Appointment Date:11/28/2023 11:20:00 AM Scheduled Provider:NGA WILKINS PA-C Location:[facility] [place] Appointment Type:URO Procedure 30 min Appointment Date:12/05/2023 11:20:00 AM Scheduled Provider:NGA WILKINS PA-C Location:[facility] [place] Appointment Type:URO Procedure 15 min Appointment Date:12/19/2023 11:20:00 AM Scheduled Provider:NGA WILKINS PA-C Location:[facility] [place] Appointment Type:URO Procedure 30 min Appointment Date:01/02/2024 11:20:00 AM Scheduled Provider:NGA WILKINS PA-C Location:[facility] Appointment Type:URO Procedure 30 min [facility] Evaluation + Plan note Future Appointments Appointment Date:11/28/2023 11:20:00 AM Scheduled Provider:NGA WILKINS PA-C Location:[facility] [place] Appointment Type:URO Procedure 30 min Appointment Date:12/05/2023 11:20:00 AM Scheduled Provider:NGA WILKINS PA-C [facility] Appointment Type:URO Procedure 15 min Appointment Date:12/19/2023 11:20:00 AM Scheduled Provider:NGA WILKINS PA-C Location:[facility] [place] Appointment Type:URO Procedure 30 min Appointment Date:01/02/2024 11:20:00 AM Scheduled Provider:[facility]ILKINS PA-C [facility] Procedure 30 min [facility] Evaluation + Plan note Future Appointments Appointment Date:12/05/2023 11:20:00 AM Scheduled Provider:NGA WILKINS PA-C [facility] Appointment Type:URO Procedure 15 min Appointment Date:12/19/2023 11:20:00 AM Scheduled Provider:NGA WILKINS PA-C [facility] Appointment Type:URO Procedure 30 min Appointment Date:01/02/2024 11:20:00 AM Scheduled Provider:NGA WILKINS PA-C Location:[facility] Appointment Type:URO Procedure 30 min [facility] evaluation + Plan note Future Appointments Appointment Date:12/19/2023 11:20:00 AM Scheduled Provider:NGA WILKINS PA-C Location:[facility] [place] Appointment Type:URO Procedure 30 min Appointment Date:01/02/2024 11:20:00 AM Scheduled Provider:NGA WILKINS PA-C Location:[facility] [place] Appointment Type:URO Procedure 30 min [facility] Evaluation + Plan note Future Appointments Appointment Date:02/29/2024 08:20:00 AM Scheduled Provider:NGA WILKINS PA-C Location:[facility] Appointment Type:URO Office Visit [facility] evaluation + Plan note Future Appointments Appointment Date:09/03/2024 02:40:00 PM Scheduled Provider:NGA WILKINS PA-C Location:[facility] Appointment Type:URO Office Visit [facility] evaluation + Plan note Future Appointments Appointment Date:10/25/2025 11:20:00 AM Scheduled Provider:NGA WILKINS PA-C Location:[facility] Appointment Type:URO Office Visit [facility] evaluation note* Diagnosis 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) Cirrhosis of liver without mention of alcohol MENDEZ (nonalcoholic steatohepatitis) Other chronic nonalcoholic liver disease documented in this encounter [facility] note* Diagnosis Cirrhosis of liver not due to alcohol (HCC)- Primary Cirrhosis of liver without mention of alcohol MENDEZ (nonalcoholic steatohepatitis) Other chronic nonalcoholic liver disease 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 thrombocytopenia documented in this encounter [facility] noteNo [facility] Other Evaluation note* Diagnosis MENDEZ (nonalcoholic steatohepatitis)- Primary Other chronic nonalcoholic liver disease Cirrhosis of liver not due to alcohol (HCC) Cirrhosis of liver without mention of alcohol 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 thrombocytopenia Thrombocytopenia (HCC) Thrombocytopenia, unspecified Diabetic gastroparesis (HCC) (HCC) Type II or unspecified type diabetes mellitus with neurological manifestations, not stated as uncontrolled documented in this encounter [facility] note* Diagnosis SAMUEL (generalized anxiety disorder) (CMS/HCC) Generalized anxiety disorder Type 2 diabetes mellitus with hyperglycemia, with long-term current use of insulin ([facility]) [facility]* Diagnosis Type 2 diabetes mellitus with hyperglycemia, with long-term current use of insulin ([facility])- Primary Insulin long-term use [place] Encounter for long-term (current) use of insulin Vitamin D deficiency Encounter for dietary consultation High risk medication use Primary hypertension ([facility] Unspecified essential hypertension Hypoglycemia Hypoglycemia, unspecified Class 2 severe obesity due to excess calories with serious comorbidity and body mass index (BMI) of 35.0 to 35.9 in adult ([facility] Microalbuminuria Proteinuria 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[facility] Chronic lymphocytic thyroiditis documented in [facility]* Diagnosis SAMUEL (generalized anxiety disorder) ([facility] Generalized anxiety disorder [facility]* Diagnosis Thrombocytopenia ([facility])- Primary Thrombocytopenia, unspecified [facility] SAMUEL (generalized anxiety disorder) ([facility] Generalized anxiety disorder [facility]* Diagnosis Essential tremor- Primary Cognitive dysfunction Unspecified persistent mental disorders due to conditions classified elsewhere Anxiety Anxiety state, unspecified Imbalance Abnormality of gait Muscle cramping CASSIE (obstructive sleep apnea) Obstructive sleep apnea (adult) (pediatric) documented [facility]* Diagnosis SAMUEL (generalized anxiety disorder) ([facility] Generalized anxiety disorder [facility]* Diagnosis Primary insomnia- Primary Persistent disorder of initiating or maintaining sleep CSASIE (obstructive sleep apnea) Obstructive sleep apnea (adult) [...] Other screening mammogram documented in this encounter [facility]* Diagnosis SAMUEL (generalized anxiety disorder) ([facility]/HCC) Generalized anxiety disorder documented in this encounter [facility] HealthcareEvaluation note* Diagnosis Cirrhosis of liver not due to alcohol (HCC)- Primary Cirrhosis of liver without mention of alcohol Biliary cirrhosis (HCC) Biliary cirrhosis MENDEZ (nonalcoholic steatohepatitis) Other chronic nonalcoholic liver disease 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 thrombocytopenia [facility] Diagnosis Type 2 diabetes mellitus with hyperglycemia, with long-term current use of insulin (CMS/HCC)- Primary Insulin long-term use ([facility]/HCC) Encounter for long-term (current) use of insulin Vitamin D deficiency Encounter for dietary consultation High risk medication use Primary hypertension ([facility]/HCC) Unspecified essential hypertension Hypoglycemia Hypoglycemia, unspecified Microalbuminuria Proteinuria Ojse's disease ([facility]/HCC) Chronic lymphocytic thyroiditis Class 1 obesity due to excess calories with serious comorbidity and body mass index (BMI) of 32.0 to 32.9 in adult documented in this encounter [facility] HealthcareEvaluation note* Diagnosis CASSIE (obstructive sleep apnea)- Primary Obstructive sleep apnea (adult) (pediatric) Insomnia, unspecified type documented in this encounter [facility] HealthcareEvaluation noteNo assessment information availableK[facility] Work Phone: Evaluation note* Diagnosis LGSIL of cervix of undetermined 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 Surgery follow-up documented in this encounter [facility] HealthcareEvaluation note* Diagnosis Nonintractable episodic headache, unspecified headache type- Primary Essential tremor Cognitive dysfunction Unspecified persistent mental disorders due to conditions classified elsewhere Anxiety Anxiety state, unspecified CASSIE (obstructive sleep apnea) Obstructive sleep apnea (adult) (pediatric) Imbalance Abnormality of gait documented in this encounter [facility] HealthcareEvaluation note* Diagnosis Insulin long-term use ([facility]/HCC)- Primary Encounter for long-term (current) use of insulin Type 2 diabetes mellitus with hyperglycemia, unspecified whether penitentiary insulin use ([facility]) Vitamin D deficiency Encounter for dietary consultation High risk medication use Primary hypertension (CMS/HCC) Unspecified essential hypertension Hypoglycemia Hypoglycemia, unspecified Microalbuminuria Proteinuria Acquired hypothyroidism ([facility]) Unspecified hypothyroidism documented in this encounter [facility] Narrative - Reported* Type Description Date Surgical History tonsillectomy and adenoidectomy Surgical History C section Surgical History tubal ligation Surgical History cholecystectomy Hospitalization History SEE ABOVE [facility] Other Hospital Discharge instructions No data available for this section [facility] Progress note No data available for this section [facility] reason for referral (narrative)* Diagnostic Procedure Only (Routine) - Pending Review Specialty Diagnoses / Procedures Referred By Mony hinojosa Referred To Contact US IMAGING Diagnoses 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) MENDEZ (nonalcoholic steatohepatitis) Procedures US ABD RT UPPER QUADRANT US ABDOMINAL REAL TIME W/IMAGE LIMITED Ander Funes MD [address] [place] [address] [place] [address] Us Imaging Referral ID Status Reason Start Date Expiration Date Visits Requested Visits Authorized [id number] Pending Review Auto-Generat ed Referral 06/19/2022 01/16/2023 1 1 [facility] for referral (narrative)* Diagnostic Procedure Only (Routine) - Pending Review Specialty Diagnoses / Procedures Referred By Mony hinojosa Referred To Contact US IMAGING Diagnoses 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 Procedures US DOPPLER COMPLETE DUP-SCAN ARTL PATRICK ABDL/PEL/SCROT&/RPR ORGN [facility] Andre Funes MD [address] [place] [address] [place] [address] Us Imaging Referral ID Status Reason Start Date Expiration Date Visits Requested Visits Authorized [id number] Pending Review Auto-Generat ed Referral 06/25/2023 07/25/2023 1 1 * Diagnostic Procedure Only (Routine) - Pending Review Specialty Diagnoses / Procedures Referred By Contac t Referred To Contact US IMAGING Diagnoses 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 Procedures US ABD LIVER VASCULAR US ABDOMINAL REAL TIME W/IMAGE LIMITED DUP-SCAN ARTL PATIRCK ABDL/PEL/SCROT&/RPR ORGN COM Andre Funes MD [address] [place] [address] [place] [address] Us Imaging Referral ID Status Reason Start Date Expiration Date Visits Requested Visits Authorized [id number] Pending Review Auto-Generat ed Referral 06/25/2023 07/25/2023 1 1 [facility] for referral (narrative)* Diagnostic Procedure Only (Routine) - Pending Review Specialty Diagnoses / Procedures Referred By Mony hinojosa Referred To Contact US IMAGING Diagnoses MENDEZ (nonalcoholic steatohepatitis) 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 Procedures US ABD RIGHT UPPER QUADRANT US ABDOMINAL REAL TIME W/IMAGE LIMITED Andre Funes MD [address] [place] [address] [place] [address] Referral ID Status Reason Start Date Expiration Date Visits Requested Visits Authorized [id number] Pending Review Auto-Generat ed Referral 06/23/2023 07/22/2024 1 1 [facility] for referral (narrative)* Diagnostic Procedure Only (Routine) - New Request Specialty Diagnoses / Procedures Referred By Mony hinojosa Referred To Contact US IMAGING Diagnoses Thrombocytopenia (HCC) Procedures US ABD SPLEEN US ABDOMINAL REAL TIME W/IMAGE LIMITED Andre Funes MD [address] [place] [address] [place] [address] Referral ID Status Reason Start Date Expiration Date Visits Requested Visits Authorized [id number] New Request Auto-Generat ed Referral 04/26/2024 05/26/2025 1 1 [facility] for referral (narrative)* Diagnostic Procedure Only (Routine) - New Request Specialty Diagnoses / Procedures Referred By Contac t Referred To Contact US IMAGING Diagnoses Biliary cirrhosis (HCC) MENDEZ (nonalcoholic steatohepatitis) 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 Procedures US ABD RIGHT UPPER QUADRANT US ABDOMINAL REAL TIME W/IMAGE LIMITED Andre Funes MD [address] [place] [address] [place] [address] [place] [id number] Referral ID Status Reason Start Date Expiration Date Visits Requested Visits Authorized [id number] New Request Auto-Generat ed Referral 06/28/2024 07/28/2025 2 2 [facility] for visit NarrativePT HERE AT REQ OF SHAKIRA HIGGINS FOR GERD, (REFERRAL NOTE RECEIVED)[employer] Other Summary Purpose Family History No Family [...] and content) DATE CREATED AUTHOR 06/16/2019 [facility] DATE CREATED AUTHOR AUTHOR'S ORGANIZ ATION 06/03/2021 [facility] DATE CREATED AUTHOR AUTHOR'S ORGANIZ ATION 03/01/2022 [email or web address] DATE CREATED AUTHOR AUTHOR'S ORGANIZ ATION 10/29/2022 [facility] DATE CREATED AUTHOR AUTHOR'S ORGANIZ ATION 07/01/2024 [facility] DATE CREATED AUTHOR AUTHOR'S ORGANIZ ATION 08/27/2024 [facility] DATE CREATED AUTHOR AUTHOR'S ORGANIZ ATION 09/04/2024 [facility] DATE CREATED AUTHOR AUTHOR'S ORGANIZ ATION 10/21/2024 [facility] DATE CREATED AUTHOR AUTHOR'S ORGANIZ ATION 11/01/2024 [facility] EP[employer] Source Comments (unrecognize d section and content) In the event this informatio n is protected by the Federal Confidentiality of Alcohol and Drug Abuse Patient Records regulations: The Federal rules restrict any use of the information to criminally investigate or prosecute any alcohol or drug abuse patient.[facility] the event this information is protected by the Federal Confidentiality of Alcohol and Drug Abuse Patient Records regulations: The Federal rules restrict any use of the information to criminally investigate or prosecute any alcohol or drug abuse patient.[facility] Center[facility] the event this information is protected by the Federal Confidentiality of Alcohol and Drug Abuse Patient Records regulations: The Federal rules restrict any use of the information to criminally investigate or prosecute any alcohol or drug abuse patient.[facility] the event this information is protected by the Federal Confidentiality of Alcohol and Drug Abuse Patient Records regulations: The Federal rules restrict any use of the information to criminally investigate or prosecute any alcohol or drug abuse patient.[facility] the event this information is protected by the Federal Confidentiality of Alcohol and Drug Abuse Patient Records regulations: The Federal rules restrict any use of the information to criminally investigate or prosecute any alcohol or drug abuse patient.[facility] Center[facility] the event this information is protected by the Federal Confidentiality of Alcohol and Drug Abuse Patient Records regulations: The Federal rules restrict any use of the information to criminally investigate or prosecute any alcohol or drug abuse patient.[facility] Center[facility] the event this information is protected by the Federal Confidentiality of Alcohol and Drug Abuse Patient Records regulations: The Federal rules restrict any use of the information to criminally investigate or prosecute any alcohol or drug abuse patient.[facility] Reason for Visit (unrecogniz ed [...] Care Teams (unrecognized sec tion and content) Supervisor Customer Records Division Relationship Specialty Start Date End Date Shakira Higgins, SOAP MIXER [address] [place] [address] PCP - General Internal Medicine 08/01/20 Supervisor Customer Records Division Relationship Specialty Start Date End Date Shakira Higgins CNP [address] [place] [address] PCP - General Internal Medicine 08/01/20 Supervisor Customer Records Division Relationship Specialty Start Date End Date Benjamin Del Toro MD [address] [place] [address] PCP - General Family Medicine 05/18/23 Tj Dutton MD [address] [place] [address] Obstetrics and Gynecology 05/18/23 Supervisor Customer Records Division Relationship Specialty Start Date End Date Benjamin Del Toro MD [address] [place] [address] PCP - General Family Medicine 05/18/23 Tj Dutton MD [address] [place] [address] Obstetrics and Gynecology 05/18/23 Supervisor Customer Records Division Relationship Specialty Start Date End Date Benjamin Del Toro MD [address] [place] [facility] [address] PCP - General Family Medicine 05/18/23 Tj Dutton MD [address] [place] [address] Obstetrics and Gynecology 05/18/23 Supervisor Customer Records Division Relationship Specialty Start Date End Date Benjamin Del Toro MD [address] [place] [facility] [address] PCP - General Family Medicine 05/18/23 Tj Dutton MD [address] [place] [address] Obstetrics and Gynecology 05/18/23 Supervisor Customer Records Division Relationship Specialty Start Date End Date Benjamin Del Toro MD [address] [place] [facility] [address] PCP - General Family Medicine 05/18/23 Tj Dutton MD [address] [place] [address] Obstetrics and Gynecology 05/18/23 Supervisor Customer Records Division Relationship Specialty Start Date End Date Shakira Higgins CNP [address] [place] [facility] [address] PCP - General Internal Medicine 08/01/20 Supervisor Customer Records Division Relationship Specialty Start Date End Date Shakira Higgins CNP [address] [place] [facility] [address] PCP - General Internal Medicine 08/01/20 Supervisor Customer Records Division Relationship Specialty Start Date End Date Benjamin Del Toro MD [address] [place] [address] PCP - General Family Medicine 05/18/23 Tj Dutton MD [address] [place] [address] Obstetrics and Gynecology 05/18/23 Supervisor Customer Records Division Relationship Specialty Start Date End Date Benjamin Del Toro MD [address] [place] [address] PCP - General Family Medicine 05/18/23 Tj Dutton MD [address] [place] [address] Obstetrics and Gynecology 05/18/23 Supervisor Customer Records Division Relationship Specialty Start Date End Date Benjamin Del Toro MD [address] [place] [address] PCP - General Family Medicine 05/18/23 Tj Dutton MD [address] [facility] [address] [place] [address] Obstetrics and Gynecology 05/18/23 Supervisor Customer Records Division Relationship Specialty Start Date End Date Benjamin Del Toro MD [address] [place] [address] PCP - General Family Medicine 05/18/23 Tj Dutton MD [address] [place] [address] Obstetrics and Gynecology 05/18/23 Supervisor Customer Records Division Relationship Specialty Start Date End Date Benjamin Del Toro MD [address] [place] [address] PCP - General Family Medicine 05/18/23 Tj Dutton MD [address] [place] [address] Obstetrics and Gynecology 05/18/23 Supervisor Customer Records Division Relationship Specialty Start Date End Date Benjamin Del Toro MD [address] [place] [address] PCP - General Family Medicine 05/18/23 Tj Dutton MD [address] [place] [address] Obstetrics and Gynecology 05/18/23 Supervisor Customer Records Division Relationship Specialty Start Date End Date Benjamin Del Toro MD [address] [place] [address] PCP - General Family Medicine 05/18/23 Tj Dutton MD [address] [facility] [address] [address] Obstetrics and Gynecology 05/18/23 Supervisor Customer Records Division Relationship Specialty Start Date End Date Benjamin Del Toro MD [address] [place] [address] PCP - General Family Medicine 05/18/23 Tj Dutton MD [address] [facility] [address] [place] [address] Obstetrics and Gynecology 05/18/23 Supervisor Customer Records Division Relationship Specialty Start Date End Date Benjamin Del Toro MD [address] [place] [address] PCP - General Family Medicine 05/18/23 Tj Dutton MD [address] [place] [address] Obstetrics and Gynecology 05/18/23 Supervisor Customer Records Division Relationship Specialty Start Date End Date Benjamin Del Toro MD [address] [place] [address] PCP - General Family Medicine 05/18/23 Tj Dutton MD [address] [place] [address] Obstetrics and Gynecology 05/18/23 Jasmine Urban LISW-S [address] [place] [address] Tax Manager [facility] 05/30/24 Supervisor Customer Records Division Relationship Specialty Start Date End Date Shakira Higgins CNP [address] [place] [address] PCP - General Internal Medicine 08/01/20 Supervisor Customer Records Division Relationship Specialty Start Date End Date Benjamin Del Toro MD [address] [place] [address] PCP - General Family Medicine 05/18/23 Tj Dutton MD [address] [place] [address] Obstetrics and Gynecology 05/18/23 Jasmine Urban LISW-S [address] [place] [address] Tax Manager [facility] 05/30/24 Supervisor Customer Records Division Relationship Specialty Start Date End Date Benjamin Del Toro MD [address] [place] [address] PCP - General Family Medicine 05/18/23 Tj Dutton MD [address] [place] [address] Obstetrics and Gynecology 05/18/23 Jasmine Urban LISW-S [address] [place] [address] Tax Manager [facility] 05/30/24 Supervisor Customer Records Division Relationship Specialty Start Date End Date Benjamin Del Toro MD [address] [place] [facility] [address] PCP - General Family Medicine 05/18/23 Tj Dutton MD [address] [place] [address] Obstetrics and Gynecology 05/18/23 Jasmine Urban LISW-S [address] [place] [address] Tax Manager [facility] 05/30/24 Supervisor Customer Records Division Relationship Specialty Start Date End Date Benjamin Del Toro MD [address] [place] [facility] [address] PCP - General Family Medicine 05/18/23 Tj Dutton MD [address] [place] [address] Obstetrics and Gynecology 05/18/23 Jasmine Urban LISW-S [address] [place] [id number] Tax Manager [facility] 05/30/24 Team Status: Inactive Member Role Status Dates Tj Dutton MD Attending Provider Active Star t: August 16, 2024 End: August 16, 2024 Supervisor Customer Records Division Relationship Specialty Start Date End Date Benjamin Del Toro MD [address] [place] [address] PCP - General Family Medicine 05/18/23 Tj Dutton MD [address] [place] [address] Obstetrics and Gynecology 05/18/23 Jasmine Urban LISW-S [address] [place] [address] Tax Manager [facility] 05/30/24 Supervisor Customer Records Division Relationship Specialty Start Date End Date Benjamin Del Toro MD [address] [place] [address] PCP - General Family Medicine 05/18/23 Tj Dutton MD [address] [place] [address] Obstetrics and Gynecology 05/18/23 Jasmine Urban LISW-S [address] [place] [address] Tax Manager [facility] 05/30/24 Supervisor Customer Records Division Relationship Specialty Start Date End Date Benjamin Del Toro MD [address] [place] [address] PCP - General Family Medicine 05/18/23 Tj Dutton MD [address] [place] [address] Obstetrics and Gynecology 05/18/23 Jasmine Urban LISW-S [address] [place] [address] Tax Manager [facility] 05/30/24 Supervisor Customer Records Division Relationship Specialty Start Date End Date Benjamin Del Toro MD [address] [place] [address] PCP - General Family Medicine 05/18/23 Tj Dutton MD [address] [place] [address] Obstetrics and Gynecology 05/18/23 Jasmine Urban LISW-S [address] [place] [address] Tax Manager [facility] 05/30/24 Supervisor Customer Records Division Relationship Specialty Start Date End Date Benjamin Del Toro MD PCP - General Family Medicine 05/18/23 Tj Dutton MD [address] [place] [address] Obstetrics and Gynecology 05/18/23 Jasmine Urban LISW-S [address] [place] [address] Tax Manager [facility] 05/30/24 Supervisor Customer Records Division Relationship Specialty Start Date End Date Benjamin Del Toro MD PCP - General Family Medicine 05/18/23 Tj Dutton MD [address] [place] [address] Obstetrics and Gynecology 05/18/23 Jasmine Urban LISW-S [address] [place] [address] Tax Manager [facility] 05/30/24 Supervisor Customer Records Division Relationship Specialty Start Date End Date Benjamin Del Toro MD PCP - General Family Medicine 05/18/23 Tj Dutton MD [address] [place] [address] Obstetrics and Gynecology 05/18/23 Jasmine Urban LISW-S [address] [place] [address] Tax Manager [facility] [facility] 05/30/24 Goals (unrecognized section and content) [...] CLINICAL RECORDS. [facility] [employer] [facility]. provides no warranty or guarantee of the accuracy or completeness of information in this document.
[2025-02-28 10:05] LABS: Free T3 1.78 pg/mL (2.18-3.98); Thyroid Stimulating Hormone 1.033 uIU/mL (0.358-3.740)
== END 2025-02-28 09:01 | disposition home or self-care (01) ==
LOC: LAB 09:01
PROVIDERS: PCP Nurse Practitioner Family; Visit Provider Internal Medicine
DX: E03.9 Hypothyroidism, unspecified (principal)
CPT/HCPCS: 36415; 84439; 84443; 84481